=== PATIENT | female | born 1950 | race Caucasian/White ===

== ENCOUNTER 2022-05-21 13:49 | Outpatient (REF) | payer MEDICARE, SELFPAY ==
[2022-05-21 14:34] LABS: Influenza A PCR NEGATIVE (Negative); Influenza B PCR NEGATIVE (Negative); Resp Syncy Virus RNA Qual PCR NEGATIVE (Negative); SARS COV2 PCR INHOUSE NEGATIVE (Negative)
== END 2022-05-21 13:50 | disposition home or self-care (01) ==
LOC: HO.LNP 13:49
PROVIDERS: Visit Provider Physician Assistant
DX: Z20.822 Contact with and (suspected) exposure to COVID-19 (principal); J02.9 Acute pharyngitis, unspecified
CPT/HCPCS: 0241U

== ENCOUNTER 2023-04-15 08:37 | Outpatient (RCR) | payer MEDICARE, OTHER, SELFPAY | END 2023-04-15 23:59 | disposition home or self-care (01) | LOC: HO.PHPA 08:37 | PROVIDERS: Visit Provider Psychiatry & Neurology Psychiatry | DX: F60.3 Borderline personality disorder (principal) ==

== ENCOUNTER 2023-09-08 10:17 | Observation (INO) | payer MEDICARE, OTHER, SELFPAY ==
[2023-09-08] VITALS (15 sets, daily range): BP systolic 85–135; BP diastolic 47–89; PULSE 70–95; RESP 12–20; TEMP 35.5–36.6; O2SAT 93–99; BMI 49.5
--- NOTE | 2023-09-08 | ECG_ITS ---
Test Reason : OVERDOSE Blood Pressure : / mmHG Vent. Rate : 082 BPM Atrial Rate : 000 BPM P-R Int : 000 ms QRS Dur : 092 ms QT Int : 382 ms P-R-T Axes : 000 -14 037 degrees QTc Int : 446 ms Atrial fibrillation Abnormal ECG When compared with ECG of 08-SEP-2023 21:54, No significant change was found Referred By: Cesar Javier Electronically Signed By:JERILYN STEPHENSON MD
--- NOTE | ~2023-09-08 | CT_ITS ---
EXAMINATION: CT HEAD WITHOUT CONTRAST CLINICAL INFORMATION: Status post fall on anticoagulation therapy. COMPARISON: None available. TECHNIQUE: Contiguous axial imaging was performed from the skull base to vertex without intravenous administration of contrast. This CT examination was performed using dose optimization techniques as appropriate, variously including the following: *Automated exposure control *Adjustment of mA and/or kV according to patient size (this includes techniques or standardized protocols for targeted exams where dose is matched to indication/reason for exam; i.e. extremities or head) *Use of iterative reconstruction technique DLP: 813 mGy-cm FINDINGS: There is hypoattenuation in bilateral occipital lobes with loss of dyson-white differentiation. There is no evidence of acute intracranial hemorrhage. No mass effect or midline shift is seen. There is prominence of the extra-axial CSF spaces at the vertex. Diffuse prominence of the ventricles and sulci in keeping with involutional changes. Patchy periventricular and deep white matter hypoattenuation is consistent with moderate small vessel ischemic changes. Hyperostosis frontalis. The mastoid air cells and visualized portions of the paranasal sinuses are well aerated. CT/CT head/brain wo IV con IMPRESSION: There is hypoattenuation in bilateral occipital lobes with loss of dyson-white differentiation. This may represent acute ischemia. Advise correlation with MRI brain.
--- NOTE | ~2023-09-08 | XR_ITS ---
EXAMINATION: XR CHEST CLINICAL INFORMATION: Shortness of breath. COMPARISON: None available. TECHNIQUE: Frontal view of the chest was obtained. FINDINGS: The lungs are relatively hypoexpanded. No focal consolidation. Trace bilateral pleural effusions. Cardiac silhouette is enlarged. XR/XR chest 1V IMPRESSION: Trace bilateral pleural effusions. Enlarged cardiac silhouette.
--- NOTE | ~2023-09-08 | MR_ITS ---
EXAMINATION: MRI BRAIN WITHOUT CONTRAST CLINICAL INFORMATION: Question stroke. COMPARISON: CT head 09/08/2023. TECHNIQUE: Multiplanar MR imaging of the brain was performed without contrast. FINDINGS: There are scattered nonspecific foci of T2 FLAIR signal hyperintensity primarily involving the periventricular white matter. No acute territorial infarct. No pathological magnetic susceptibility artifact. Intracranial vascular flow voids are grossly maintained. There is no intracranial mass effect or midline shift. No abnormal extra-axial collection. Lateral and third ventricles are normal. No hydrocephalus. Midline structures including the cervicomedullary junction are normal. No acute bone marrow signal changes. There is a right mastoid effusion. 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 No active paranasal sinus disease. Globes and orbits are grossly symmetric. MR/MR head/brain wo con IMPRESSION: There are scattered chronic small vessel ischemic changes within the periventricular white matter. Otherwise unremarkable examination. No evidence of acute territorial infarct or hemorrhage.
--- NOTE | 2023-09-08 10:29 | ECG_ITS ---
Test Reason : OVERDOS Blood Pressure : / mmHG Vent. Rate : 106 BPM Atrial Rate : 306 BPM P-R Int : 000 ms QRS Dur : 108 ms QT Int : 332 ms P-R-T Axes : 000 -34 048 degrees QTc Int : 441 ms Atrial flutter with variable A-V block Left axis deviation Inferior infarct , age undetermined Abnormal ECG When compared with ECG of 02-DEC-2004 00:24, Atrial flutter has replaced Ectopic atrial rhythm Non-specific change in ST segment in Lateral leads T wave inversion no longer evident in Inferior leads Referred By: Heydi Neville Electronically Signed By:JERILYN STEPHENSON MD
--- NOTE | 2023-09-08 10:38 | ED_ITS ---
HPI - Overdose General Chief Complaint: Overdose Stated Complaint: SI, OD TRAMADOL/KLONAZAPAM,LETHARGY Time Seen by Provider: 09/08/23 10:26 Source: EMS Mode of arrival: EMS History of Present Illness HPI Narrative: 73-year-old female who arrives via EMS after they were called by family members from [place] for patient report overdosing on her Klonopin and tramadol. As per EMS the bottles had recently been filled and were now empty and there were 35 Klonopin and 70 tramadol. Patient is not provide any history at this time due to lethargy. Related Data Home Medications Medication Instructions Recorded Confirmed amantadine HCl 100 mg capsule 100 mg PO BID 05/21/22 amlodipine 2.5 mg tablet 2.5 mg PO DAILY 05/21/22 apixaban 5 mg tablet (Eliquis) 5 mg PO BID 05/21/22 aripiprazole 5 mg tablet 5 mg PO BEDTIME 05/21/22 atorvastatin 40 mg tablet 40 mg PO DAILY 05/21/22 [facility] Lite Strips) bupropion HCl 300 mg 24 hr tablet, 300 mg PO DAILY 05/21/22 extended release celecoxib 100 mg capsule 100 mg PO BID 05/21/22 clonazepam 0.5 mg tablet 0.5 mg PO DAILY PRN 05/21/22 duloxetine 60 mg capsule,delayed 120 mg PO QAM 05/21/22 release gabapentin 300 mg capsule 300 mg PO DAILY 05/21/22 lamotrigine 150 mg tablet 150 mg PO DAILY 05/21/22 lisinopril 40 mg tablet 40 mg PO DAILY 05/21/22 metoprolol tartrate 25 mg tablet 25 mg PO BID 05/21/22 modafinil 200 mg tablet 200 mg PO QAM 05/21/22 omeprazole 40 mg capsule,delayed 40 mg PO DAILY 05/21/22 release Previous Rx's Medication Instructions Recorded amoxicillin 500 mg tablet 500 mg PO BID 10 days #20 tabs 05/21/22 Allergies Allergy/AdvReac Type Severity Reaction Status Date / Time No Known Allergies Allergy Verified 09/08/23 12:36 Review of Systems 2 Review of Systems: Pertinent positives and negatives as stated in HPI by EMS. PMFSH Past Medical History Source: nursing notes reviewed Social History Social History Unable to assess alcohol history related to: Unable to respond Use of substances other than those prescribed or required for medical reasons: Unable to respond Advance Directives: No Advance Directives Information Provided: No (medical condition) Physical Exam 2 Vital Signs: Vital Signs: Last Vital Signs Temp 97.7 F 09/08/23 15:22 Pulse 74 09/08/23 15:22 Resp 12 09/08/23 15:22 BP 113/77 09/08/23 15:22 Pulse Ox 93 09/08/23 15:22 O2 Del Method Room Air 09/08/23 15:22 O2 Flow Rate 4 09/08/23 11:52 Oxygen Flow Rate 3 09/08/23 10:43 BMI result Body Mass Index 49.5 VITAL SIGNS: Reviewed. GENERAL: Elevated BMI, Well developed, well nourished HEAD: Normocephalic/atraumatic EYES: PERRLA, EOMI, not pinpoint EARS: Ext canals without abnormality NOSE: Nares patent bilateral OROPHARYNX: no oral lesions noted, posterior pharynx clear NECK: Supple, no adenopathy LUNGS: Normal breath sounds. No adventitious sounds or accessory muscle use. SpO2<88> on room air CARDIOVASCULAR: IRR/IRR elevated rate and rhythm without noted murmurs, no JVD or lower extremity edema. ABDOMEN: Soft, non-tender, non-distended with bowel sounds. MUSCULOSKELETAL: No tenderness, deformities, or effusions noted on gross inspection. EXTREMITIES: No cyanosis, clubbing or edema. SKIN: Inspection of the skin reveals no rashes, ulcerations, jaundice, pallor, or petechiae. NEUROLOGIC: GCS-9, lethargic, protecting airway, moving all 4 extremities. Medications Administered Generic Name Dose Route Start Last Admin Trade Name Freq PRN Reason Stop Dose Admin Dextrose/Sodium Chloride 1,000 mls @ 100 mls/hr 09/08/23 12:15 09/08/23 12:17 D5ns IVCONT 100 mls/hr .Q10H RICKY Administration Discontinued Medications Generic Name Dose Route Start Last Admin Trade Name Freq PRN Reason Stop Dose Admin Sodium Chloride 1,000 mls @ 999 mls/hr 09/08/23 11:30 09/08/23 12:29 Ns IV 09/08/23 12:30 Infused .Q1H1M RICKY Infusion Dextrose/Sodium Chloride 1,000 mls @ 125 mls/hr 09/08/23 12:15 09/08/23 12:15 D5ns IVCONT Not Given .Q8H RICKY Naloxone HCl 2 mg 09/08/23 10:30 09/08/23 10:43 Naloxone Hcl 2 Mg/2 Ml Syringe IVPUSH 09/08/23 10:31 2 mg ONCE ONE Administration Medical Decision Making Medical Decision Making [facility] Narrative: 1029: 73-year-old female with history and clinical presentation, DDX: Intentional overdose, suicidal ideation, intracranial hemorrhage felt to be less likely will but will proceed with CT of the head. - INTERVENTION: Application of supplemental oxygen, 2 mg IV push Narcan with no improvement, application of capnography-38. Poison Control: VBG Q4H,POC Q1H, check mental status, EKG Q2H x2 THEN Q4H I reviewed all investigations and hematologic indices are negative for leukocytosis or left shift and there is no anemia or thrombocytopenia. Coagulation studies are within normal limits. VBG does not show respiratory acidosis and no evidence of hypercapnia. Chest x-ray negative for infiltrate and otherwise my interpretation is in agreement with radiology's impression that there are trace bilateral pleural effusions. Chemistry indices are grossly within normal limits without evidence of UMA and there is no electrolyte or liver enzyme derangements. High sensitivity troponin is undetectable and I note that there is an elevated lactic acid level however this is likely secondary to patient's overdose as there is no evidence to suggest an infection, the tachycardia secondary to patient's underlying diagnosis of atrial fibrillation. Urinalysis is negative for UTI or hematuria. Urine toxicology is negative for any findings to suggest presence of benzodiazepines or other illicit substances that we test for, ethyl alcohol is undetectable. 1202: I was reviewing the CT scan after my prelim assessment was negative for intracranial hemorrhage and Radiology has read it as possibly representing acute ischemia with hypoattenuation in bilateral occipital lobes and loss of dyson- white differentiation and advises correlation with MRI brain. There was no phone call communicating these findings. 1205: Patient's last point of care glucose is 75, will switch IV fluids from normal saline to D5 normal saline. 1210: Will send patient over for MRI, however, at bedside patient was noted to be arousable and I did a brief visual exam and patient does not present with any visual defect and is moving all 4 extremities on command. She is still quite sleepy. 1704: Trending of all VBGs/POC glucose and EKGs remain stable. Pt remains drowsy. MRI is pending to further evaluate radiology concerns for ischemia despite focal deficits, BUT patient is a difficult evaluation given overdose status. MRI negative for any evidence acute ischemic events. Signed out to DR Velarde: - Poison Control - ?admission Differential Diagnosis Differential Diagnoses: The differential diagnosis associated with the presentation includes Please see the discussion above Admission/Observation Consideration of admission/observation: Escalation of care including admission/observation considered Please see the discussion above Lab Data MDM Lab Attestation statement: I reviewed the patient's lab results. Please see the discussion above 09/08/23 10:35 09/08/23 10:35 Labs: Lab Results 09/08/23 09/08/23 09/08/23 Range/Units 10:25 10:35 10:53 WBC 6.9 (4.8-10.8) X10*3/uL RBC 4.35 (4.20-5.50) X10*6/uL Hgb 13.0 (12.0-16.0) g/dl Hct 40.3 (37.0-47.0) % MCV 92.6 (80.0-98.0) fL MCH 29.9 (27.0-33.0) pg MCHC 32.3 (31.0-35.0) g/dl RDW 16.8 H (11.0-16.0) % Plt Count 306 (160-400) X10*3/uL MPV 9.6 (9.4-12.3) fL Immature Gran % (Auto) 0.4 (0.0-0.4) % Neut % (Auto) 57.6 (45-73) % Lymph % (Auto) 34.0 (20-40) % Price % (Auto) 5.0 (2-11) % Eos % (Auto) 2.3 (0-4) % Baso % (Auto) 0.7 (0-2) % Lymph # (Auto) 2.3 (1.2-4.9) X10*3/uL Price # (Auto) 0.3 (0.1-1.2) X10*3/uL Eos # (Auto) 0.2 (0.0-0.4) X10*3/uL Baso # (Auto) 0.1 (0.0-0.2) X10*3/uL Abs Immat Gran (auto) 0.03 (0.00-0.03) X10*3/uL Absolute Neuts (auto) 3.9 (2.0-8.3) x10*3/uL Absolute Nucleated RBC 0.000 (0.0-0.012) X10*3/uL Nucleated RBC % (auto) 0.0 (0.0-0.2) /100WBC Hold Purple Top PT 13.1 (11.1-13.3) SEC INR 1.1 (0.9-1.1) APTT 33.0 (26.0-36.4) SEC VBG pH 7.47 H (7.32-7.43) VBG pCO2 33 mmHg VBG pO2 196 mmHg VBG HCO3 24 (22-26) mmol/L VBG O2 Saturation 100.0 % VBG Base Excess 1.7 mmol/L Sodium 144 (135-145) mmol/L Potassium 3.9 (3.3-5.1) mmol/L Chloride 109 H (96-108) mmol/L Carbon Dioxide 23 (22-29) mmol/L Anion Gap 16 (12-20) BUN 9 (9-16) mg/dL Creatinine 0.84 (0.5-1.4) mg/dL Estim Creat Clear Calc 84.2 Estimated GFR > 60 POC Glucose 112 (60-115) mg/dL Random Glucose 118 H (60-115) mg/dL Lactic Acid 2.1 H* (0.5-2.0) mmol/L Lactic Acid F/U @ 2Hr (0.5-2.0) mmol/L Calcium 10.0 (8.4-10.2) mg/dL Magnesium 1.8 (1.6-2.6) mg/dL Total Bilirubin 0.4 (0.0-1.0) mg/dL AST 15 (5-31) U/L ALT 12 (0-31) U/L Alkaline Phosphatase 62 (39-117) U/L Total Creatine Kinase 34 (26-140) U/L Troponin I High Sens < 2.7 (<3.5-17.0) ng/L B-Natriuretic Peptide 129 H (<100) pg/mL Total Protein 7.2 (6.5-8.0) g/dL Albumin 4.0 (3.5-5.0) g/dL Urine Color Urine Appearance Urine pH (5.0-9.0) Ur Specific Wyatt (1.005-1.025) Urine Protein (Neg-Trace) mg/dL Urine Glucose (UA) (Negative) mg/dL Urine Ketones (Negative) mg/dL Urine Blood (Negative) Urine Nitrite (Negative) Ur Leukocyte Esterase (Negative) Urine Opiates Screen (Not Detect) Urine Fentanyl Screen (Not Detect) Ur Barbiturates Screen (Not Detect) Ur Phencyclidine Scrn (Not Detect) Ur Amphetamines Screen (Not Detect) U Benzodiazepines Scrn (Not Detect) Urine Cocaine Screen (Not Detect) U Marijuana (THC) Screen (Not Detect) Ethyl Alcohol < 10 mg/dL 09/08/23 09/08/23 09/08/23 Range/Units 11:16 11:49 12:28 WBC (4.8-10.8) X10*3/uL RBC (4.20-5.50) X10*6/uL Hgb (12.0-16.0) g/dl Hct (37.0-47.0) % MCV (80.0-98.0) fL MCH (27.0-33.0) pg MCHC (31.0-35.0) g/dl RDW (11.0-16.0) % Plt Count (160-400) X10*3/uL MPV (9.4-12.3) fL Immature Gran % (Auto) (0.0-0.4) % Neut % (Auto) (45-73) % Lymph % (Auto) (20-40) % Price % (Auto) (2-11) % Eos % (Auto) (0-4) % Baso % (Auto) (0-2) % Lymph # (Auto) (1.2-4.9) X10*3/uL Price # (Auto) (0.1-1.2) X10*3/uL Eos # (Auto) (0.0-0.4) X10*3/uL Baso # (Auto) (0.0-0.2) X10*3/uL Abs Immat Gran (auto) (0.00-0.03) X10*3/uL Absolute Neuts (auto) (2.0-8.3) x10*3/uL Absolute Nucleated RBC (0.0-0.012) X10*3/uL Nucleated RBC % (auto) (0.0-0.2) /100WBC Hold Purple Top PT (11.1-13.3) SEC INR (0.9-1.1) APTT (26.0-36.4) SEC VBG pH (7.32-7.43) VBG pCO2 mmHg VBG pO2 mmHg VBG HCO3 (22-26) mmol/L VBG O2 Saturation % VBG Base Excess mmol/L Sodium (135-145) mmol/L Potassium (3.3-5.1) mmol/L Chloride (96-108) mmol/L Carbon Dioxide (22-29) mmol/L Anion Gap (12-20) BUN (9-16) mg/dL Creatinine (0.5-1.4) mg/dL Estim Creat Clear Calc Estimated GFR POC Glucose 76 72 (60-115) mg/dL Random Glucose (60-115) mg/dL Lactic Acid (0.5-2.0) mmol/L Lactic Acid F/U @ 2Hr (0.5-2.0) mmol/L Calcium (8.4-10.2) mg/dL Magnesium (1.6-2.6) mg/dL Total Bilirubin (0.0-1.0) mg/dL AST (5-31) U/L ALT (0-31) U/L Alkaline Phosphatase (39-117) U/L Total Creatine Kinase (26-140) U/L Troponin I High Sens (<3.5-17.0) ng/L B-Natriuretic Peptide (<100) pg/mL Total Protein (6.5-8.0) g/dL Albumin (3.5-5.0) g/dL Urine Color Yellow Urine Appearance Clear Urine pH 6.0 (5.0-9.0) Ur Specific Wyatt 1.020 (1.005-1.025) Urine Protein Trace (Neg-Trace) mg/dL Urine Glucose (UA) Negative (Negative) mg/dL Urine Ketones Negative (Negative) mg/dL Urine Blood Negative (Negative) Urine Nitrite Negative (Negative) Ur Leukocyte Esterase Negative (Negative) Urine Opiates Screen Not Detected (Not Detect) Urine Fentanyl Screen Not Detected (Not Detect) Ur Barbiturates Screen Not Detected (Not Detect) Ur Phencyclidine Scrn Not Detected (Not Detect) Ur Amphetamines Screen Not Detected (Not Detect) U Benzodiazepines Scrn Not Detected (Not Detect) Urine Cocaine Screen Not Detected (Not Detect) U Marijuana (THC) Screen Not Detected (Not Detect) Ethyl Alcohol mg/dL 09/08/23 09/08/23 09/08/23 Range/Units 13:01 13:10 15:12 WBC (4.8-10.8) X10*3/uL RBC (4.20-5.50) X10*6/uL Hgb (12.0-16.0) g/dl Hct (37.0-47.0) % MCV (80.0-98.0) fL MCH (27.0-33.0) pg MCHC (31.0-35.0) g/dl RDW (11.0-16.0) % Plt Count (160-400) X10*3/uL MPV (9.4-12.3) fL Immature Gran % (Auto) (0.0-0.4) % Neut % (Auto) (45-73) % Lymph % (Auto) (20-40) % Price % (Auto) (2-11) % Eos % (Auto) (0-4) % Baso % (Auto) (0-2) % Lymph # (Auto) (1.2-4.9) X10*3/uL Price # (Auto) (0.1-1.2) X10*3/uL Eos # (Auto) (0.0-0.4) X10*3/uL Baso # (Auto) (0.0-0.2) X10*3/uL Abs Immat Gran (auto) (0.00-0.03) X10*3/uL Absolute Neuts (auto) (2.0-8.3) x10*3/uL Absolute Nucleated RBC (0.0-0.012) X10*3/uL Nucleated RBC % (auto) (0.0-0.2) /100WBC Hold Purple Top SEE NOTE PT (11.1-13.3) SEC INR (0.9-1.1) APTT (26.0-36.4) SEC VBG pH (7.32-7.43) VBG pCO2 mmHg VBG pO2 mmHg VBG HCO3 (22-26) mmol/L VBG O2 Saturation % VBG Base Excess mmol/L Sodium (135-145) mmol/L Potassium (3.3-5.1) mmol/L Chloride (96-108) mmol/L Carbon Dioxide (22-29) mmol/L Anion Gap (12-20) BUN (9-16) mg/dL Creatinine (0.5-1.4) mg/dL Estim Creat Clear Calc Estimated GFR POC Glucose 82 98 (60-115) mg/dL Random Glucose (60-115) mg/dL Lactic Acid (0.5-2.0) mmol/L Lactic Acid F/U @ 2Hr 1.8 (0.5-2.0) mmol/L Calcium (8.4-10.2) mg/dL Magnesium (1.6-2.6) mg/dL Total Bilirubin (0.0-1.0) mg/dL AST (5-31) U/L ALT (0-31) U/L Alkaline Phosphatase (39-117) U/L Total Creatine Kinase (26-140) U/L Troponin I High Sens (<3.5-17.0) ng/L B-Natriuretic Peptide (<100) pg/mL Total Protein (6.5-8.0) g/dL Albumin (3.5-5.0) g/dL Urine Color Urine Appearance Urine pH (5.0-9.0) Ur Specific Wyatt (1.005-1.025) Urine Protein (Neg-Trace) mg/dL Urine Glucose (UA) (Negative) mg/dL Urine Ketones (Negative) mg/dL Urine Blood (Negative) Urine Nitrite (Negative) Ur Leukocyte Esterase (Negative) Urine Opiates Screen (Not Detect) Urine Fentanyl Screen (Not Detect) Ur Barbiturates Screen (Not Detect) Ur Phencyclidine Scrn (Not Detect) Ur Amphetamines Screen (Not Detect) U Benzodiazepines Scrn (Not Detect) Urine Cocaine Screen (Not Detect) U Marijuana (THC) Screen (Not Detect) Ethyl Alcohol mg/dL 09/08/23 Range/Units 15:22 WBC (4.8-10.8) X10*3/uL RBC (4.20-5.50) X10*6/uL Hgb (12.0-16.0) g/dl Hct (37.0-47.0) % MCV (80.0-98.0) fL MCH (27.0-33.0) pg MCHC (31.0-35.0) g/dl RDW (11.0-16.0) % Plt Count (160-400) X10*3/uL MPV (9.4-12.3) fL Immature Gran % (Auto) (0.0-0.4) % Neut % (Auto) (45-73) % Lymph % (Auto) (20-40) % Price % (Auto) (2-11) % Eos % (Auto) (0-4) % Baso % (Auto) (0-2) % Lymph # (Auto) (1.2-4.9) X10*3/uL Price # (Auto) (0.1-1.2) X10*3/uL Eos # (Auto) (0.0-0.4) X10*3/uL Baso # (Auto) (0.0-0.2) X10*3/uL Abs Immat Gran (auto) (0.00-0.03) X10*3/uL Absolute Neuts (auto) (2.0-8.3) x10*3/uL Absolute Nucleated RBC (0.0-0.012) X10*3/uL Nucleated RBC % (auto) (0.0-0.2) /100WBC Hold Purple Top PT (11.1-13.3) SEC INR (0.9-1.1) APTT (26.0-36.4) SEC VBG pH 7.40 (7.32-7.43) VBG pCO2 42 mmHg VBG pO2 82 mmHg VBG HCO3 26 (22-26) mmol/L VBG O2 Saturation 97.0 % VBG Base Excess 1.3 mmol/L Sodium (135-145) mmol/L Potassium (3.3-5.1) mmol/L Chloride (96-108) mmol/L Carbon Dioxide (22-29) mmol/L Anion Gap (12-20) BUN (9-16) mg/dL Creatinine (0.5-1.4) mg/dL Estim Creat Clear Calc Estimated GFR POC Glucose (60-115) mg/dL Random Glucose (60-115) mg/dL Lactic Acid (0.5-2.0) mmol/L Lactic Acid F/U @ 2Hr (0.5-2.0) mmol/L Calcium (8.4-10.2) mg/dL Magnesium (1.6-2.6) mg/dL Total Bilirubin (0.0-1.0) mg/dL AST (5-31) U/L ALT (0-31) U/L Alkaline Phosphatase (39-117) U/L Total Creatine Kinase (26-140) U/L Troponin I High Sens (<3.5-17.0) ng/L B-Natriuretic Peptide (<100) pg/mL Total Protein (6.5-8.0) g/dL Albumin (3.5-5.0) g/dL Urine Color Urine Appearance Urine pH (5.0-9.0) Ur Specific Wyatt (1.005-1.025) Urine Protein (Neg-Trace) mg/dL Urine Glucose (UA) (Negative) mg/dL Urine Ketones (Negative) mg/dL Urine Blood (Negative) Urine Nitrite (Negative) Ur Leukocyte Esterase (Negative) Urine Opiates Screen (Not Detect) Urine Fentanyl Screen (Not Detect) Ur Barbiturates Screen (Not Detect) Ur Phencyclidine Scrn (Not Detect) Ur Amphetamines Screen (Not Detect) U Benzodiazepines Scrn (Not Detect) Urine Cocaine Screen (Not Detect) U Marijuana (THC) Screen (Not Detect) Ethyl Alcohol mg/dL Independent Interpretation I performed an independent interpretation of an: EKG Interpretation: Atrial flutter with RVR, HR-106, QRS-108, QT-332, QTC -441 1309: atrial fibrillation, HR- 81, no STEMI, QRS-96, QT - 410, QTC -476 Radiology Impression Discussion of test interpretation with radiology: I have reviewed the radiologist's reading. Radiologist Impression: please see the discussion above Critical Care Time Critical Care Time Critical Care Time: Yes Total Critical Care Time: 120 Attestation: I personally attest to this time spent taking care of the patient. Discharge Plan Discharge Clinical Impression: Drug overdose, Suicide attempt, Chronic anticoagulation Patient Disposition: Still a Patient Prescriptions: No Action lisinopril 40 mg tablet 40 mg PO DAILY atorvastatin 40 mg tablet 40 mg PO DAILY clonazepam 0.5 mg tablet 0.5 mg PO DAILY PRN (DME) FreeStyle Lite Strips Strip See Rx Instructions .ROUTE DAILY Qty: 10 Rx Instructions: As directed lamotrigine 150 mg tablet 150 mg PO DAILY omeprazole 40 mg capsule,delayed release(DR/EC) 40 mg PO DAILY celecoxib 100 mg capsule 100 mg PO BID amantadine HCl 100 mg capsule 100 mg PO BID Eliquis 5 mg tablet 5 mg PO BID metoprolol tartrate 25 mg tablet 25 mg PO BID aripiprazole 5 mg tablet 5 mg PO BEDTIME modafinil 200 mg tablet 200 mg PO QAM bupropion HCl 300 mg tablet extended release 24 hr 300 mg PO DAILY duloxetine 60 mg capsule,delayed release(DR/EC) 120 mg PO QAM amlodipine 2.5 mg tablet 2.5 mg PO DAILY gabapentin 300 mg capsule 300 mg PO DAILY amoxicillin 500 mg tablet 500 mg PO BID 10 Days Qty: 20 0RF
[2023-09-08 10:41] LABS: MANUAL DIFF FLAG NO
[2023-09-08 10:43] LABS: Basophils Absolute Auto 0.1 X10*3/uL (0.0-0.2); Basophils Percent Auto 0.7 % (0-2); Eosinophils Absolute Auto 0.2 X10*3/uL (0.0-0.4); Eosinophils Percent Auto 2.3 % (0-4); Hematocrit 40.3 % (37.0-47.0); Imm Gran Abs Auto 0.03 X10*3/uL (0.00-0.03); Imm Gran Pct Auto 0.4 % (0.0-0.4); Lymphocytes Absolute Auto 2.3 X10*3/uL (1.2-4.9); Mean Corpuscular HGB Conc 32.3 g/dl (31.0-35.0); Mean Corpuscular Hemoglobin 29.9 pg (27.0-33.0); Mean Corpuscular Volume 92.6 fL (80.0-98.0); Mean Platelet Volume 9.6 fL (9.4-12.3); Monocytes Absolute Auto 0.3 X10*3/uL (0.1-1.2); Neutrophils Absolute Auto 3.9 x10*3/uL (2.0-8.3); Neutrophils Percent Auto 57.6 % (45-73); Platelet Count 306 X10*3/uL (160-400); Red Blood Count 4.35 X10*6/uL (4.20-5.50); Red Cell Distribution Width 16.8 % (11.0-16.0); White Blood Count 6.9 X10*3/uL (4.8-10.8)
[2023-09-08] MEDS: Naloxone HCl 2 MG/2 ML SYRINGE IVPUSH (10:43)
[2023-09-08 10:47] LABS: INTERNATIONAL NORM RATIO 1.1 (0.9-1.1); Prothrombin Time 13.1 SEC (11.1-13.3)
[2023-09-08 10:53] LABS: Glucose, Whole Blood 112 mg/dL (60-115)
[2023-09-08 10:59] LABS: VBG Base Excess 1.7 mmol/L; VBG HCO3 24 mmol/L (22-26); VBG pCO2 33 mmHg; VBG pH 7.47 (7.32-7.43); VBG pO2 196 mmHg
[2023-09-08 11:00] LABS: Venous Blood Gas Refer to POC result
[2023-09-08 11:16] LABS: Troponin-I High Sensitivity < 2.7 ng/L (<3.5-17.0)
[2023-09-08 11:17] LABS: Alanine Aminotransferase 12 U/L (0-31); Alkaline Phosphatase 62 U/L (39-117); Anion Gap 16 (12-20); Aspartate Amino Transferase 15 U/L (5-31); Bilirubin Total 0.4 mg/dL (0.0-1.0); Blood Urea Nitrogen 9 mg/dL (9-16); Carbon Dioxide 23 mmol/L (22-29); Chloride 109 mmol/L (96-108); Creatinine Clr Calc Pharmacy 84.2; Estimated Glomerular Filt Rate > 60; Ethanol < 10 mg/dL; Glucose Random 118 mg/dL (60-115); Magnesium 1.8 mg/dL (1.6-2.6); Potassium 3.9 mmol/L (3.3-5.1); Sodium 144 mmol/L (135-145); Total Protein 7.2 g/dL (6.5-8.0)
[2023-09-08 11:21] LABS: Lactic Acid 2.1 mmol/L (0.5-2.0)
[2023-09-08 11:29] LABS: Appearance Urine Clear; Color Urine Yellow; Glucose Urine UA Negative (Negative); Leukocyte Esterase Urine Negative (Negative); Nitrite Urine Negative (Negative); Urine Blood Negative (Negative); Urine Ketones Negative (Negative); Urine Protein Trace mg/dL (Neg-Trace)
[2023-09-08] MEDS: 0.9 % Sodium Chloride 1,000 ML 999 ML IV (11:30)
[2023-09-08 11:34] LABS: Amphetamine Screen Urine Not Detected (Not Detect); Barbiturates, Urine Not Detected (Not Detect); Benzodiazepines Screen Urine Not Detected (Not Detect); Cannabinoid Screen Urine Not Detected (Not Detect); Cocaine Screen Urine Not Detected (Not Detect); Fentanyl, urine Not Detected (Not Detect); Opiate Screen Urine Not Detected (Not Detect); Phencyclidine Screen Urine Not Detected (Not Detect)
--- NOTE | 2023-09-08 12:10 | PC.NURSE ---
this RN assumed care of patient at 1130. Pt is laying on stretcher, responding only to sternal rub. Did not respond to painful stimuli such as finger stick for POC. Pt does occasionally open eyes to look around. Pt speech is unclear. Pt has normal saline running wide open at this time. Two IVs present 20 in the RAC and a 20 in the LFA. No longer requiring oxygen to maintain a good SPO2. Pt has katz catheter that is draining straw yellow urine at this time. VSS, blood pressure is on low side at 90s/50s. Continues plan of care for Q1H POCs, maintain intake and output
[2023-09-08] MEDS: Dextrose 5 % and 0.9 % NaCl 1,000 ML 100 ML IVCONT ×2 (12:17→22:28)
[2023-09-08 12:38] LABS: Reflex Lactate? Lactic Acid Added
--- NOTE | 2023-09-08 12:58 | ECG_ITS ---
Test Reason : OVERDOSE Blood Pressure : / mmHG Vent. Rate : 081 BPM Atrial Rate : 000 BPM P-R Int : 000 ms QRS Dur : 096 ms QT Int : 410 ms P-R-T Axes : 000 -06 038 degrees QTc Int : 476 ms Atrial fibrillation Abnormal ECG When compared with ECG of 08-SEP-2023 10:24, Atrial fibrillation has replaced Atrial flutter Criteria for Inferior infarct are no longer Present Referred By: Heydi Neville Electronically Signed By:JERILYN STEPHENSON MD
[2023-09-08 13:18] LABS: Glucose, Whole Blood 76 mg/dL (60-115)
[2023-09-08 13:18] LABS: Glucose, Whole Blood 82 mg/dL (60-115)
[2023-09-08 13:18] LABS: Glucose, Whole Blood 72 mg/dL (60-115)
[2023-09-08 13:31] LABS: ~Lactic Acid-LAB USE ONLY 1.8 mmol/L (0.5-2.0)
--- NOTE | 2023-09-08 14:58 | ECG_ITS ---
Test Reason : OVERDOSE Blood Pressure : / mmHG Vent. Rate : 071 BPM Atrial Rate : 000 BPM P-R Int : 000 ms QRS Dur : 098 ms QT Int : 392 ms P-R-T Axes : 000 -20 026 degrees QTc Int : 425 ms Atrial fibrillation Minimal voltage criteria for LVH, may be normal variant ( Juan Luis product ) Abnormal ECG When compared with ECG of 08-SEP-2023 13:25, QT has shortened Referred By: Generic ED Physician Electronically Signed By:JERILYN STEPHENSON MD
[2023-09-08 15:13] LABS: B Type Natriuretic Peptide 129 pg/mL (<100)
[2023-09-08 15:19] LABS: Glucose, Whole Blood 98 mg/dL (60-115)
[2023-09-08 15:27] LABS: VBG Base Excess 1.3 mmol/L; VBG HCO3 26 mmol/L (22-26); VBG pCO2 42 mmHg; VBG pO2 82 mmHg
[2023-09-08 15:29] LABS: Venous Blood Gas Refer to POC result
--- NOTE | 2023-09-08 16:43 | PC.NURSE ---
this RN transported patient to MRI, pt tolerated well with no issues. Pt is now back to ED, resting comfortably, offers no complaints, is getting progressively better with responses, is able to answer yes no questions
[2023-09-08 17:10] LABS: Glucose, Whole Blood 82 mg/dL (60-115)
--- NOTE | 2023-09-08 17:22 | PHA.MEDREC ---
Pharmacy Consult ? Medication Reconciliation Pharmacy has completed the medication reconciliation. Patient unable to answer. Med rec completed by claim history. Unable to confirm gabapentin. Patient fills gabapentin 300 mg 1 cap in the AM and 2 cap at night on 04/06/23 however per PMH patient taking 1 cap at bedtime. If patient taking as prescription states, patient would have run out the prescription but if they are taking as the PMH patient could still be taking therefore left in list unconfirmed. Talita Cunningham, PharmD
[2023-09-08 18:13] LABS: Glucose, Whole Blood 80 mg/dL (60-115)
[2023-09-08 19:32] LABS: Glucose, Whole Blood 58 mg/dL (60-115)
[2023-09-08] MEDS: Dextrose 50 % 25 GM/50 ML SYRINGE IVPUSH (20:12)
[2023-09-08 20:14] LABS: Glucose, Whole Blood 141 mg/dL (60-115)
--- NOTE | 2023-09-08 21:45 | PC.NURSE ---
This Rn spoke with Poison control- recommended morning labs and repeat EKG, and noted that as long as PT remained symptomatic at 1030 am, PT can be cleared for psych. Notified
[2023-09-09] VITALS (7 sets, daily range): BP systolic 121–155; BP diastolic 71–88; PULSE 79–94; RESP 16–22; TEMP 36.1–36.6; O2SAT 91–98; BMI 49.6
--- NOTE | 2023-09-09 00:40 | P.HPHOSP_ITS ---
History of Present Illness Date of Service: 09/09/23 Chief Complaint: AMS, overdose, suicidal attempt 73 years old lady with PMH of DMII, hx DVT on Eliquis, HTN, depression among other behavioural issues who presents to the hospital w AMS after overdose with Klonipin and tramadol. According to EMS she filled her meds recently. on records that was on 08/29. Also she is not on Tramadol so not sure if that was right as the patient was not able to provide much of history as she was lethargic at time of presentation. reported that she had some problems with her family and took all the tablets in suicidal attempt as family called EMS. i could not reach out to family this time. She was monitored in ED with improvement in mental status with IV fluids, POC and neurochecks . Images of CT and MRI brain were negative for any acute findings. blood work within normal with one episode of hypoglycemia reported. Urine Tox negative for Benzos which goes against the original story .. Admitted for observation. Review of Systems 2 Review of Systems: Yes Unobtainable due to mental status [facility] Medical History Diabetes mellitus Chronic anticoagulation Social History Unable to assess alcohol history related to: Unable to respond Use of substances other than those prescribed or required for medical reasons: Unable to respond Advance Directives: No Advance Directives Information Provided: No (medical condition) Meds Allergies Allergy/AdvReac Type Severity Reaction Status Date / Time No Known Allergies Allergy Verified 09/08/23 12:36 Active Medications: Current Medications Acetaminophen (Acetaminophen 325 Mg Tablet) 650 mg PO Q6H PRN PRN Reason: Pain, Mild (Pain Scale 1-3) Amlodipine Besylate (Amlodipine Besylate 2.5 Mg Tablet) 2.5 mg PO DAILY [facility]; Protocol Apixaban (Apixaban 5 Mg Tablet) 5 mg PO BID [facility] Atorvastatin Calcium (Atorvastatin Calcium 40 Mg Tablet) 40 mg PO DAILY [facility] Bupropion HCl (Bupropion Hcl Xl 300 Mg Tab.Er.24h) 300 mg PO DAILY [facility] Duloxetine HCl (Duloxetine Hcl 60 Mg Capsule.Dr) 120 mg PO QAM [facility] Dextrose/Sodium Chloride (D5ns) 1,000 mls @ 100 mls/hr IVCONT .Q10H [facility] Last Admin: 09/08/23 22:28 Dose: 100 mls/hr Lamotrigine (Lamotrigine 25 Mg Tablet) 75 mg PO DAILY [facility] Lisinopril (Lisinopril 40 Mg Tablet) 40 mg PO DAILY [facility]; Protocol Metformin HCl (Metformin Hcl 500 Mg Tablet) 500 mg PO BID [facility] Metoprolol Tartrate (Metoprolol Tartrate 25 Mg Tablet) 25 mg PO BID [facility]; Protocol Omeprazole (Omeprazole 40 Mg Capsule.Dr) 40 mg PO DAILY [facility] Ondansetron HCl (Ondansetron Hcl 4 Mg/2 Ml Vial) 4 mg IVPUSH Q8H PRN PRN Reason: Nausea and Vomiting Sodium Chloride (0.9 % Sodium Chloride Flush 3 Ml Syringe) 3 ml IVFLUSH QSHIFT [facility] Topiramate (Topiramate 25 Mg Tablet) 75 mg PO BID [facility] Home Medications Medication Instructions Recorded Confirmed Last Taken Type amlodipine 2.5 mg tablet 2.5 mg PO DAILY 05/21/22 09/08/23 Unknown History apixaban 5 mg tablet (Eliquis) 5 mg PO BID 05/21/22 09/08/23 Unknown History atorvastatin 40 mg tablet 40 mg PO DAILY 05/21/22 09/08/23 Unknown History blood sugar diagnostic (Rosalvayle #10 ea 05/21/22 Unknown History Lite Strips) bupropion HCl 300 mg 24 hr tablet, 300 mg PO DAILY 05/21/22 09/08/23 Unknown History extended release clonazepam 0.5 mg tablet 0.5 mg PO DAILY PRN Anxiety 05/21/22 09/08/23 Unknown History duloxetine 60 mg capsule,delayed 120 mg PO QAM 05/21/22 09/08/23 Unknown History release gabapentin 300 mg capsule 300 mg PO DAILY 05/21/22 Unknown History lamotrigine 150 mg tablet 150 mg PO DAILY 05/21/22 09/08/23 Unknown History lisinopril 40 mg tablet 40 mg PO DAILY 05/21/22 09/08/23 Unknown History metoprolol tartrate 25 mg tablet 25 mg PO BID 05/21/22 09/08/23 Unknown History omeprazole 40 mg capsule,delayed 40 mg PO DAILY 05/21/22 09/08/23 Unknown History release clonazepam 0.5 mg tablet 0.5 mg PO BEDTIME 09/08/23 09/08/23 Unknown History metformin 500 mg tablet 500 mg PO BID 09/08/23 09/08/23 Unknown History topiramate 100 mg tablet 150 mg PO BID 09/08/23 09/08/23 Unknown History Physical Exam 2 Vital Signs and Narrative: Vital Signs: Last Vital Signs Temp 97.9 F 09/08/23 19:26 Pulse 78 09/08/23 23:24 Resp 16 09/08/23 23:24 BP 135/89 09/08/23 23:24 Pulse Ox 94 09/08/23 23:24 O2 Del Method Room Air, Nasal C annula 09/08/23 23:24 O2 Flow Rate 2 09/08/23 23:24 Oxygen Flow Rate 3 09/08/23 10:43 BMI result Body Mass Index 49.5 Const: Other: alert with stimulation, morbedly obese, not in distress Neck : Normal inspection, Supple Cardiovascular : RRR, no JVP, no lower extremity edema Respiratory : good bilateral air entry, no crackles, wheezes or rhonchi Gastrointestinal: soft, lax, Normal bowel sounds, Non tender Skin : Warm, Dry Neurological : Altered, response to verbal stimuli with low voice and short sentences, makes eye contact but goes back to sleep , moving all extremities Results Labs 09/08/23 10:35 09/08/23 10:35 Labs: Laboratory Results - last 24 hr 09/08/23 09/08/23 09/08/23 10:25 10:35 10:53 MCV 92.6 MCH 29.9 MCHC 32.3 RDW 16.8 H Plt Count 306 MPV 9.6 Immature Gran % (Auto) 0.4 Neut % (Auto) 57.6 Lymph % (Auto) 34.0 Morris % (Auto) 5.0 Eos % (Auto) 2.3 Baso % (Auto) 0.7 Lymph # (Auto) 2.3 Morris # (Auto) 0.3 Eos # (Auto) 0.2 Baso # (Auto) 0.1 Abs Immat Gran (auto) 0.03 Absolute Neuts (auto) 3.9 Absolute Nucleated RBC 0.000 Nucleated RBC % (auto) 0.0 Hold Purple Top PT 13.1 INR 1.1 APTT 33.0 VBG pH 7.47 H VBG pCO2 33 VBG pO2 196 VBG HCO3 24 VBG O2 Saturation 100.0 VBG Base Excess 1.7 Anion Gap 16 Estim Creat Clear Calc 84.2 Estimated GFR > 60 POC Glucose 112 Random Glucose 118 H Lactic Acid 2.1 H* Lactic Acid F/U @ 2Hr Calcium 10.0 Magnesium 1.8 Total Bilirubin 0.4 AST 15 ALT 12 Alkaline Phosphatase 62 Total Creatine Kinase 34 B-Natriuretic Peptide 129 H Total Protein 7.2 Albumin 4.0 Urine Color Urine Appearance Urine pH Ur Specific [place] Urine Protein Urine Glucose (UA) Urine Ketones Urine Blood Urine Nitrite Ur Leukocyte Esterase Urine Opiates Screen Urine Fentanyl Screen Ur Barbiturates Screen Ur Phencyclidine Scrn Ur Amphetamines Screen U Benzodiazepines Scrn Urine Cocaine Screen U Marijuana (THC) Screen Ethyl Alcohol < 10 09/08/23 09/08/23 09/08/23 11:16 11:49 12:28 MCV MCH MCHC RDW Plt Count MPV Immature Gran % (Auto) Neut % (Auto) Lymph % (Auto) Morris % (Auto) Eos % (Auto) Baso % (Auto) Lymph # (Auto) Morris # (Auto) Eos # (Auto) Baso # (Auto) Abs Immat Gran (auto) Absolute Neuts (auto) Absolute Nucleated RBC Nucleated RBC % (auto) Hold Purple Top PT INR APTT VBG pH VBG pCO2 VBG pO2 VBG HCO3 VBG O2 Saturation VBG Base Excess Anion Gap Estim Creat Clear Calc Estimated GFR POC Glucose 76 72 Random Glucose Lactic Acid Lactic Acid F/U @ 2Hr Calcium Magnesium Total Bilirubin AST ALT Alkaline Phosphatase Total Creatine Kinase B-Natriuretic Peptide Total Protein Albumin Urine Color Yellow Urine Appearance Clear Urine pH 6.0 Ur Specific [place] 1.020 Urine Protein Trace Urine Glucose (UA) Negative Urine Ketones Negative Urine Blood Negative Urine Nitrite Negative Ur Leukocyte Esterase Negative Urine Opiates Screen Not Detected Urine Fentanyl Screen Not Detected Ur Barbiturates Screen Not Detected Ur Phencyclidine Scrn Not Detected Ur Amphetamines Screen Not Detected U Benzodiazepines Scrn Not Detected Urine Cocaine Screen Not Detected U Marijuana (THC) Screen Not Detected Ethyl Alcohol 09/08/23 09/08/23 09/08/23 13:01 13:10 15:12 MCV MCH MCHC RDW Plt Count MPV Immature Gran % (Auto) Neut % (Auto) Lymph % (Auto) Morris % (Auto) Eos % (Auto) Baso % (Auto) Lymph # (Auto) Morris # (Auto) Eos # (Auto) Baso # (Auto) Abs Immat Gran (auto) Absolute Neuts (auto) Absolute Nucleated RBC Nucleated RBC % (auto) Hold Purple Top SEE NOTE PT INR APTT VBG pH VBG pCO2 VBG pO2 VBG HCO3 VBG O2 Saturation VBG Base Excess Anion Gap Estim Creat Clear Calc Estimated GFR POC Glucose 82 98 Random Glucose Lactic Acid Lactic Acid F/U @ 2Hr 1.8 Calcium Magnesium Total Bilirubin AST ALT Alkaline Phosphatase Total Creatine Kinase B-Natriuretic Peptide Total Protein Albumin Urine Color Urine Appearance Urine pH Ur Specific [place] Urine Protein Urine Glucose (UA) Urine Ketones Urine Blood Urine Nitrite Ur Leukocyte Esterase Urine Opiates Screen Urine Fentanyl Screen Ur Barbiturates Screen Ur Phencyclidine Scrn Ur Amphetamines Screen U Benzodiazepines Scrn Urine Cocaine Screen U Marijuana (THC) Screen Ethyl Alcohol 09/08/23 09/08/23 09/08/23 15:22 16:47 18:06 MCV MCH MCHC RDW Plt Count MPV Immature Gran % (Auto) Neut % (Auto) Lymph % (Auto) Morris % (Auto) Eos % (Auto) Baso % (Auto) Lymph # (Auto) Morris # (Auto) Eos # (Auto) Baso # (Auto) Abs Immat Gran (auto) Absolute Neuts (auto) Absolute Nucleated RBC Nucleated RBC % (auto) Hold Purple Top PT INR APTT VBG pH 7.40 VBG pCO2 42 VBG pO2 82 VBG HCO3 26 VBG O2 Saturation 97.0 VBG Base Excess 1.3 Anion Gap Estim Creat Clear Calc Estimated GFR POC Glucose 82 80 Random Glucose Lactic Acid Lactic Acid F/U @ 2Hr Calcium Magnesium Total Bilirubin AST ALT Alkaline Phosphatase Total Creatine Kinase B-Natriuretic Peptide Total Protein Albumin Urine Color Urine Appearance Urine pH Ur Specific [place] Urine Protein Urine Glucose (UA) Urine Ketones Urine Blood Urine Nitrite Ur Leukocyte Esterase Urine Opiates Screen Urine Fentanyl Screen Ur Barbiturates Screen Ur Phencyclidine Scrn Ur Amphetamines Screen U Benzodiazepines Scrn Urine Cocaine Screen U Marijuana (THC) Screen Ethyl Alcohol 09/08/23 09/08/23 19:21 20:10 MCV MCH MCHC RDW Plt Count MPV Immature Gran % (Auto) Neut % (Auto) Lymph % (Auto) Morris % (Auto) Eos % (Auto) Baso % (Auto) Lymph # (Auto) Morris # (Auto) Eos # (Auto) Baso # (Auto) Abs Immat Gran (auto) Absolute Neuts (auto) Absolute Nucleated RBC Nucleated RBC % (auto) Hold Purple Top PT INR APTT VBG pH VBG pCO2 VBG pO2 VBG HCO3 VBG O2 Saturation VBG Base Excess Anion Gap Estim Creat Clear Calc Estimated GFR POC Glucose 58 L* 141 H Random Glucose Lactic Acid Lactic Acid F/U @ 2Hr Calcium Magnesium Total Bilirubin AST ALT Alkaline Phosphatase Total Creatine Kinase B-Natriuretic Peptide Total Protein Albumin Urine Color Urine Appearance Urine pH Ur Specific [place] Urine Protein Urine Glucose (UA) Urine Ketones Urine Blood Urine Nitrite Ur Leukocyte Esterase Urine Opiates Screen Urine Fentanyl Screen Ur Barbiturates Screen Ur Phencyclidine Scrn Ur Amphetamines Screen U Benzodiazepines Scrn Urine Cocaine Screen U Marijuana (THC) Screen Ethyl Alcohol Imaging Radiologist's Impressions: Impressions Chest X-Ray 09/08/23 11:07 IMPRESSION: Trace bilateral pleural effusions. Enlarged cardiac silhouette. Head CT 09/08/23 11:09 IMPRESSION: There is hypoattenuation in bilateral occipital lobes with loss of dyson-white differentiation. This may represent acute ischemia. Advise correlation with MRI brain. Brain MRI 09/08/23 16:40 IMPRESSION: There are scattered chronic small vessel ischemic changes within the periventricular white matter. Otherwise unremarkable examination. No evidence of acute territorial infarct or hemorrhage. Assessment and Plan (1) Toxic metabolic encephalopathy: Status: Acute (2) Suicide attempt: Status: Acute (3) Drug overdose: Status: Acute (4) Chronic anticoagulation: Status: Acute Plan 73 years old lady with PMH of DMII, hx DVT on Eliquis, HTN, depression among other behavioural issues who presents to the hospital w AMS after overdose with Klonipin and tramadol. Toxic metabolic encephalopathy 2/2 overdose in suicidal attempt Unclear what meds did she take: reports of Klonipin empty bottle and Tramadol? which is not on her medlist. more alert during observation in ED, able to tolerate diet aspiration risk check Topiramate level Urine tox negative for Benzos. Poison control following; rec repeat EKG in the morning neurochecks Psychiatry evaluation for medications advice Hold Mando, Klonopine Low Lamotrigine , Bupropion and Topiramate doses for now (hold if altered in morning) Sitter DMII POC , Humalog on D5NS now diabetic diet Hx DVT continue Eliquis DVT PPx Eliquis Time Spent With Patient Time: Total time managing care of this patient today ____ minutes. Quality Stroke Does the patient have a stroke diagnosis?: No VTE Prior VTE?: Yes VTE Risk Level:: Medical - moderate - high VTE Device Contraindication: Treatment Not Indicated VTE Drug Contraindication: N/A - Med Ordered
[2023-09-09 01:42] LABS: Glucose, Whole Blood 86 mg/dL (60-115)
[2023-09-09 03:14] LABS: Glucose, Whole Blood 87 mg/dL (60-115)
[2023-09-09 05:26] LABS: Hemoglobin 11.8 g/dl (12.0-16.0); Mean Corpuscular HGB Conc 31.1 g/dl (31.0-35.0); Mean Corpuscular Hemoglobin 29.5 pg (27.0-33.0); Mean Platelet Volume 10.4 fL (9.4-12.3); Platelet Count 170 X10*3/uL (160-400); White Blood Count 8.4 X10*3/uL (4.8-10.8)
[2023-09-09 05:44] LABS: Anion Gap 15 (12-20); Blood Urea Nitrogen 11 mg/dL (9-16); Calcium 9.3 mg/dL (8.4-10.2); Carbon Dioxide 20 mmol/L (22-29); Chloride 114 mmol/L (96-108); Creatinine Clr Calc Pharmacy 91.9; Estimated Glomerular Filt Rate > 60; Glucose Random 96 mg/dL (60-115); Potassium 4.3 mmol/L (3.3-5.1); Sodium 145 mmol/L (135-145)
--- NOTE | 2023-09-09 07:00 | ECG_ITS ---
Test Reason : OVERDOSE Blood Pressure : / mmHG Vent. Rate : 079 BPM Atrial Rate : 000 BPM P-R Int : 000 ms QRS Dur : 096 ms QT Int : 408 ms P-R-T Axes : 000 -06 054 degrees QTc Int : 467 ms Atrial fibrillation Low voltage QRS Abnormal ECG When compared with ECG of 08-SEP-2023 10:24, Atrial fibrillation has replaced Atrial flutter Criteria for Inferior infarct are no longer Present Referred By: Cesar Javier Electronically Signed By:JERILYN STEPHENSON MD
--- NOTE | 2023-09-09 07:04 | PC.NURSE ---
Patient resting comfortably, respirations even and unlabored, remains with 1:1 at bedside for safety. VSS, nsr on monitor
--- NOTE | 2023-09-09 07:04 | PC.NURSE ---
Late entry- PT alert and oriented to time place situation and name. PT arousable to name although drowsy. PT POC during beginning of shift 56- dextorse 50% administered as PT too drowsy to consumed liquids safely. Medication had with positive effect- POC 141. POC remained stable in the 80s. VSS. PT denies SI/H a this time report she took the medication because her family is planning on selling the family home that she has lived in for the past 20 years. Plan is for pt to be admitted for repeat labs and to be cleared for psych. VSS, Safety precautions in place, call solano within reach. Plan of care ongoing.
[2023-09-09 07:25] LABS: Glucose, Whole Blood 109 mg/dL (60-115)
[2023-09-09] MEDS: lisinopriL 40 MG TABLET PO (08:18)
[2023-09-09] MEDS: amLODIPine Besylate 2.5 MG TABLET PO (08:18)
[2023-09-09] MEDS: buPROPion HCl XL 300 MG TAB.ER.24H PO (08:18)
[2023-09-09] MEDS: Apixaban 5 MG TABLET PO ×2 (08:18→20:21)
[2023-09-09] MEDS: DULoxetine HCl 60 MG CAPSULE.DR 120 MG PO (08:18)
[2023-09-09] MEDS: Topiramate 25 MG TABLET 75 MG PO ×2 (08:18→20:22)
[2023-09-09] MEDS: Omeprazole 40 MG CAPSULE.DR PO (08:19)
[2023-09-09] MEDS: metFORMIN HCl 500 MG TABLET PO ×2 (08:19→20:21)
[2023-09-09] MEDS: lamoTRIgine 25 MG TABLET 75 MG PO (08:19)
[2023-09-09] MEDS: Metoprolol Tartrate 25 MG TABLET PO ×2 (08:19→20:21)
[2023-09-09] MEDS: Atorvastatin Calcium 40 MG TABLET PO (08:19)
[2023-09-09] MEDS: Dextrose 5 % and 0.9 % NaCl 1,000 ML 100 ML IVCONT ×2 (08:28→18:30)
--- NOTE | 2023-09-09 08:52 | PC.NURSE ---
Patient alert and oriented. Home dose of gabapentin confirmed. Patient with scabs on toes, patient reports she picks at toes when she is nervous. Therapy in room working with patient.
--- NOTE | 2023-09-09 10:51 | PC.NURSE ---
Beard cath removed per MD order. 97% on RA.
--- NOTE | 2023-09-09 12:03 | MHC.EDTECH ---
Pt ambulated to the bathroom assisted with walker, steady gait. Resting in bed quietly watching tv, call solano within reach
[2023-09-09 12:04] LABS: Glucose, Whole Blood 111 mg/dL (60-115)
--- NOTE | 2023-09-09 12:53 | P.PNIM_ITS ---
Subjective Subjective Date of Service: 09/09/23 Interval History: no complaints Physical Exam 2 Vital Signs: Vital Signs: Last Vital Signs Temp 97.5 F 09/09/23 05:08 Pulse 89 09/09/23 11:39 Resp 17 09/09/23 11:39 BP 130/73 09/09/23 11:39 Pulse Ox 95 09/09/23 11:39 O2 Del Method Room Air 09/09/23 11:39 O2 Flow Rate 4 09/09/23 05:08 Oxygen Flow Rate 3 09/08/23 10:43 BMI result Body Mass Index 49.5 General: AO X 3, no acute distress Resp: CTA bilateral, no accessory muscles used CVS: S1,S2,RRR GI: soft, non tender, non distended Neuro: motor grossly intact, alert Objective Data Active Medications Acetaminophen (Acetaminophen 325 Mg Tablet) 650 mg PO Q6H PRN PRN Reason: Pain, Mild (Pain Scale 1-3) Amlodipine Besylate (Amlodipine Besylate 2.5 Mg Tablet) 2.5 mg PO DAILY [facility]; Protocol Last Admin: 09/09/23 08:18 Dose: 2.5 mg Documented By: ALBINA Apixaban (Apixaban 5 Mg Tablet) 5 mg PO BID [facility] Last Admin: 09/09/23 08:18 Dose: 5 mg Documented By: ALBINA Atorvastatin Calcium (Atorvastatin Calcium 40 Mg Tablet) 40 mg PO DAILY [facility] Last Admin: 09/09/23 08:19 Dose: 40 mg Documented By: ALBINA Bupropion HCl (Bupropion Hcl Xl 300 Mg Tab.Er.24h) 300 mg PO DAILY [facility] Last Admin: 09/09/23 08:18 Dose: 300 mg Documented By: ALBINA Duloxetine HCl (Duloxetine Hcl 60 Mg Capsule.Dr) 120 mg PO DAILY [facility] Last Admin: 09/09/23 08:18 Dose: 120 mg Documented By: ALBINA Dextrose/Sodium Chloride (D5ns) 1,000 mls @ 100 mls/hr IVCONT .Q10H [facility] Last Admin: 09/09/23 08:28 Dose: 100 mls/hr Documented By: ALBINA Insulin Human Lispro (Insulin Lispro 100 Unit/Ml 3 Ml Vial) 0 unit SUBCUT QIDACHS [facility]; Protocol Last Admin: 09/09/23 12:06 Dose: Not Given Documented By: ALBINA Non-Admin Reason: No Insulin Coverage Lamotrigine (Lamotrigine 25 Mg Tablet) 75 mg PO DAILY [facility] Last Admin: 09/09/23 08:19 Dose: 75 mg Documented By: ALBINA Lisinopril (Lisinopril 40 Mg Tablet) 40 mg PO DAILY [facility]; Protocol Last Admin: 09/09/23 08:18 Dose: 40 mg Documented By: ALBINA Metformin HCl (Metformin Hcl 500 Mg Tablet) 500 mg PO BID [facility] Last Admin: 09/09/23 08:19 Dose: 500 mg Documented By: ALBINA Metoprolol Tartrate (Metoprolol Tartrate 25 Mg Tablet) 25 mg PO BID [facility]; Protocol Last Admin: 09/09/23 08:19 Dose: 25 mg Documented By: ALBINA Omeprazole (Omeprazole 40 Mg Capsule.Dr) 40 mg PO DAILY [facility] Last Admin: 09/09/23 08:19 Dose: 40 mg Documented By: ALBINA Ondansetron HCl (Ondansetron Hcl 4 Mg/2 Ml Vial) 4 mg IVPUSH Q8H PRN PRN Reason: Nausea and Vomiting Sodium Chloride (0.9 % Sodium Chloride Flush 3 Ml Syringe) 3 ml IVFLUSH QSHIFT [facility] Last Admin: 09/09/23 08:09 Dose: Not Given Documented By: ALBINA Non-Admin Reason: IV Running Topiramate (Topiramate 25 Mg Tablet) 75 mg PO BID [facility] Last Admin: 09/09/23 08:18 Dose: 75 mg Documented By: ALBINA Labs 09/09/23 05:06 09/09/23 05:06 Labs: Laboratory Results - last 24 hr 09/08/23 09/08/23 09/08/23 10:35 11:49 12:28 MCV MCH MCHC RDW Plt Count MPV Absolute Nucleated RBC Nucleated RBC % (auto) Hold Purple Top VBG pH VBG pCO2 VBG pO2 VBG HCO3 VBG O2 Saturation VBG Base Excess Anion Gap Estim Creat Clear Calc Estimated GFR POC Glucose 76 72 Random Glucose Lactic Acid F/U @ 2Hr Calcium B-Natriuretic Peptide 129 H 09/08/23 09/08/23 09/08/23 13:01 13:10 15:12 MCV MCH MCHC RDW Plt Count MPV Absolute Nucleated RBC Nucleated RBC % (auto) Hold Purple Top SEE NOTE VBG pH VBG pCO2 VBG pO2 VBG HCO3 VBG O2 Saturation VBG Base Excess Anion Gap Estim Creat Clear Calc Estimated GFR POC Glucose 82 98 Random Glucose Lactic Acid F/U @ 2Hr 1.8 Calcium B-Natriuretic Peptide 09/08/23 09/08/23 09/08/23 15:22 16:47 18:06 MCV MCH MCHC RDW Plt Count MPV Absolute Nucleated RBC Nucleated RBC % (auto) Hold Purple Top VBG pH 7.40 VBG pCO2 42 VBG pO2 82 VBG HCO3 26 VBG O2 Saturation 97.0 VBG Base Excess 1.3 Anion Gap Estim Creat Clear Calc Estimated GFR POC Glucose 82 80 Random Glucose Lactic Acid F/U @ 2Hr Calcium B-Natriuretic Peptide 09/08/23 09/08/23 09/09/23 19:21 20:10 01:38 MCV MCH MCHC RDW Plt Count MPV Absolute Nucleated RBC Nucleated RBC % (auto) Hold Purple Top VBG pH VBG pCO2 VBG pO2 VBG HCO3 VBG O2 Saturation VBG Base Excess Anion Gap Estim Creat Clear Calc Estimated GFR POC Glucose 58 L* 141 H 86 Random Glucose Lactic Acid F/U @ 2Hr Calcium B-Natriuretic Peptide 09/09/23 09/09/23 09/09/23 03:09 05:06 07:22 MCV 95.0 MCH 29.5 MCHC 31.1 RDW 17.0 H Plt Count 170 D MPV 10.4 Absolute Nucleated RBC 0.000 Nucleated RBC % (auto) 0.0 Hold Purple Top VBG pH VBG pCO2 VBG pO2 VBG HCO3 VBG O2 Saturation VBG Base Excess Anion Gap 15 Estim Creat Clear Calc 91.9 Estimated GFR > 60 POC Glucose 87 109 Random Glucose 96 Lactic Acid F/U @ 2Hr Calcium 9.3 D B-Natriuretic Peptide 09/09/23 12:00 MCV MCH MCHC RDW Plt Count MPV Absolute Nucleated RBC Nucleated RBC % (auto) Hold Purple Top VBG pH VBG pCO2 VBG pO2 VBG HCO3 VBG O2 Saturation VBG Base Excess Anion Gap Estim Creat Clear Calc Estimated GFR POC Glucose 111 Random Glucose Lactic Acid F/U @ 2Hr Calcium B-Natriuretic Peptide Microbiology Microbiology Results: Microbiology 09/08/23 10:47 Blood Culture - Preliminary Blood - Venous No growth after 24 hours. Assessment and Plan (1) Toxic metabolic encephalopathy: Status: Acute Plan 73F PMH DM, paroxysmal afib, dvt, htn, depression, morbid obeisty, presented with ams after klonipn and tramadol OD acute toxic metabolic encephalopathy due to intentional overdose, reported to be klonipin and tramadol ekg afib, qtc 467 mental status back to baseline medically cleared care team eval DM insulin paroxysmal afib lopressor, eliquis history of dvt eliquis morbid obesity weight loss full code reason for continued hospitalization:awaiting care team eval Time Spent With Patient Time: Total time managing care of this patient today ____ minutes. Quality Stroke Does the patient have a stroke diagnosis?: No VTE Prior VTE?: Yes VTE Risk Level:: Medical - moderate - high VTE Device Contraindication: Treatment Not Indicated VTE Drug Contraindication: N/A - Med Ordered
--- NOTE | 2023-09-09 15:11 | MHC.CM.PN ---
Patricia 09/09/23 Pt lives alone, she does not have home health services, she has med equipment of bipap machine, and a walker. She has used [facility] in the past, declined to use again if needed. Her sister, Paola Reyes is her HCP, and she is able to pick her up to transport home at [place]. Pt has been to [facility] in [place] in the past, and reports she would not go again. She sees a psychiatrist, Suresh Beaulieu in the community. Her PCP is Erik Kim in [place]. CM will follow and assist with DC plan.
--- NOTE | 2023-09-09 15:25 | PC.NURSE ---
Report given to accepting unit
--- NOTE | 2023-09-09 15:50 | MHC.CARE ---
CARE Team attempts to evaluate this pt, however interrupted by pt being transferred to medical unit. Please re consult CARE Team when pt is ready to be seen.
[2023-09-09 16:58] LABS: Glucose, Whole Blood 128 mg/dL (60-115)
[2023-09-09 20:13] LABS: Glucose, Whole Blood 142 mg/dL (60-115)
[2023-09-09] MEDS: Nystatin Powder 15 GM BOTTLE 1 APPL TOPICAL (20:22)
[2023-09-09] MEDS: 0.9 % Sodium Chloride Flush 3 ML SYRINGE IVFLUSH (20:23)
[2023-09-10 04:00] VITALS: BP 131/65; PULSE 79; RESP 18; TEMP 36.8; O2SAT 95
[2023-09-10] MEDS: Dextrose 5 % and 0.9 % NaCl 1,000 ML 100 ML IVCONT (04:01)
[2023-09-10 07:00] LABS: Glucose, Whole Blood 97 mg/dL (60-115)
[2023-09-10 07:02] VITALS: BP 126/80; PULSE 92; RESP 20; TEMP 36.2; O2SAT 93
[2023-09-10] MEDS: Apixaban 5 MG TABLET PO ×2 (09:01→20:05)
[2023-09-10] MEDS: Atorvastatin Calcium 40 MG TABLET PO (09:01)
[2023-09-10] MEDS: metFORMIN HCl 500 MG TABLET PO (09:01)
[2023-09-10] MEDS: Omeprazole 40 MG CAPSULE.DR PO (09:01)
[2023-09-10] MEDS: buPROPion HCl XL 300 MG TAB.ER.24H PO (09:01)
[2023-09-10] MEDS: Metoprolol Tartrate 25 MG TABLET PO ×2 (09:02→20:05)
[2023-09-10] MEDS: lamoTRIgine 25 MG TABLET 75 MG PO (09:02)
[2023-09-10] MEDS: Topiramate 25 MG TABLET 75 MG PO ×2 (09:03→20:05)
[2023-09-10] MEDS: DULoxetine HCl 60 MG CAPSULE.DR 120 MG PO (09:03)
[2023-09-10] MEDS: Nystatin Powder 15 GM BOTTLE 1 APPL TOPICAL ×2 (09:05→20:09)
[2023-09-10] MEDS: 0.9 % Sodium Chloride Flush 3 ML SYRINGE IVFLUSH ×3 (09:05→20:10)
[2023-09-10 10:56] VITALS: BP 114/82; PULSE 93; RESP 20; TEMP 36.5; O2SAT 97
[2023-09-10 10:58] LABS: Glucose, Whole Blood 80 mg/dL (60-115)
--- NOTE | 2023-09-10 14:45 | P.PNIM_ITS ---
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 Review of Systems Review of Systems: Yes all other systems are reviewed and are negative Physical Exam 2 Vital Signs: Vital Signs: Last Vital Signs Temp 97.7 F 09/10/23 10:56 Pulse 93 09/10/23 10:56 Resp 20 09/10/23 10:56 BP 114/82 09/10/23 10:56 Pulse Ox 97 09/10/23 10:56 O2 Del Method Room Air 09/10/23 10:56 O2 Flow Rate 4 09/09/23 05:08 Oxygen Flow Rate 3 09/08/23 10:43 BMI result Body Mass Index 49.6 Const: Other: Constitutional : Awake, interactive, obese , not in distress Neck : Normal inspection, Supple Cardiovascular : RRR, no JVP, no lower extremity edema Respiratory : good bilateral air entry, no crackles, wheezes or rhonchi Gastrointestinal: soft, lax, Normal bowel sounds, Non tender Skin : Warm, Dry Neurological : Alert & oriented x3, No focal deficit Objective Data Active Medications Acetaminophen (Acetaminophen 325 Mg Tablet) 650 mg PO Q6H PRN PRN Reason: Pain, Mild (Pain Scale 1-3) Amlodipine Besylate (Amlodipine Besylate 2.5 Mg Tablet) 2.5 mg PO DAILY [facility]; Protocol Last Admin: 09/10/23 09:03 Dose: Not Given Documented By: PIERO Non-Admin Reason: Patient Refused Apixaban (Apixaban 5 Mg Tablet) 5 mg PO BID [facility] Last Admin: 09/10/23 09:01 Dose: 5 mg Documented By: PIERO Atorvastatin Calcium (Atorvastatin Calcium 40 Mg Tablet) 40 mg PO DAILY [facility] Last Admin: 09/10/23 09:01 Dose: 40 mg Documented By: PIERO Bupropion HCl (Bupropion Hcl Xl 300 Mg Tab.Er.24h) 300 mg PO DAILY [facility] Last Admin: 09/10/23 09:01 Dose: 300 mg Documented By: PIERO Clonazepam (Clonazepam 0.5 Mg Tablet) 0.5 mg PO DAILY PRN PRN Reason: Anxiety Duloxetine HCl (Duloxetine Hcl 60 Mg Capsule.Dr) 120 mg PO DAILY [facility] Last Admin: 09/10/23 09:03 Dose: 120 mg Documented By: PIERO Gabapentin (Gabapentin 600 Mg Tablet) 300 mg PO BEDTIME [facility] Insulin Human Lispro (Insulin Lispro 100 Unit/Ml 3 Ml Vial) 0 unit SUBCUT QIDACHS [facility]; Protocol Last Admin: 09/10/23 12:35 Dose: Not Given Documented By: PIERO Non-Admin Reason: No Insulin Coverage Lamotrigine (Lamotrigine 25 Mg Tablet) 75 mg PO DAILY [facility] Last Admin: 09/10/23 09:02 Dose: 75 mg Documented By: PIERO Lisinopril (Lisinopril 40 Mg Tablet) 40 mg PO DAILY [facility]; Protocol Last Admin: 09/10/23 09:12 Dose: Not Given Documented By: PIERO Non-Admin Reason: Patient Refused Metformin HCl (Metformin Hcl 500 Mg Tablet) 500 mg PO BID [facility] Last Admin: 09/10/23 09:01 Dose: 500 mg Documented By: PIERO Metoprolol Tartrate (Metoprolol Tartrate 25 Mg Tablet) 25 mg PO BID [facility]; Protocol Last Admin: 09/10/23 09:02 Dose: 25 mg Documented By: PIERO Nystatin (Nystatin Powder 15 Gm Bottle) 1 appl TOPICAL TID [facility]; Protocol Last Admin: 09/10/23 14:19 Dose: Not Given Documented By: PIERO Non-Admin Reason: Patient Refused Omeprazole (Omeprazole 40 Mg Capsule.Dr) 40 mg PO DAILY [facility] Last Admin: 09/10/23 09:01 Dose: 40 mg Documented By: PIERO Ondansetron HCl (Ondansetron Hcl 4 Mg/2 Ml Vial) 4 mg IVPUSH Q8H PRN PRN Reason: Nausea and Vomiting Sodium Chloride (0.9 % Sodium Chloride Flush 3 Ml Syringe) 3 ml IVFLUSH QSHIFT [facility] Last Admin: 09/10/23 09:05 Dose: 3 ml Documented By: PIERO Topiramate (Topiramate 25 Mg Tablet) 75 mg PO BID [facility] Last Admin: 09/10/23 09:03 Dose: 75 mg Documented By: PIERO Labs 09/09/23 05:06 09/09/23 05:06 Labs: Laboratory Results - last 24 hr 09/09/23 09/09/23 09/10/23 16:22 20:09 06:56 POC Glucose 128 H 142 H 97 09/10/23 10:55 POC Glucose 80 Microbiology Microbiology Results: Microbiology 09/08/23 10:48 Blood Culture - Preliminary Blood - Venous No growth after 48 hours. 09/08/23 10:47 Blood Culture - Preliminary Blood - Venous No growth after 48 hours. Assessment and Plan (1) Toxic metabolic encephalopathy: Status: Acute (2) Suicide attempt: Status: Acute (3) Drug overdose: Status: Acute Plan 73F PMH DM, paroxysmal afib, dvt, htn, depression, morbid obeisty, presented with ams after klonipn and tramadol OD acute toxic metabolic encephalopathy due to intentional overdose, reported to be klonipin and tramadol mental status back to baseline medically cleared care team eval pending placement DM insulin paroxysmal afib lopressor, eliquis history of dvt eliquis morbid obesity weight loss full code reason for continued hospitalization: pending placement to psych unit Quality Stroke Does the patient have a stroke diagnosis?: No VTE Prior VTE?: Yes VTE Risk Level:: Medical - moderate - high VTE Device Contraindication: Treatment Not Indicated VTE Drug Contraindication: N/A - Med Ordered
--- NOTE | 2023-09-10 14:56 | MHC.CM.PN ---
EMR reviewed and per MD rounds, pt is medically cleared pending available psych bed placement. CM will continue to follow.
[2023-09-10 15:36] VITALS: BP 123/75; PULSE 91; RESP 18; TEMP 36.6; O2SAT 97
--- NOTE | 2023-09-10 16:22 | MHC.CARE ---
Patient evaluated by the CARE Team and will require an inpatient psychiatric placement, she is in agreement with this plan. S1 has a planned discharge tomorrow and should be able to transfer patient to the unit. Provider, Dr Javier and shift RNs updated
--- NOTE | 2023-09-10 16:29 | HO.WOUND ---
Wound Consult: Initial 73yr old female admitted to [facility] on? 09/09/23 - See progress notes and H&P for detailed history. Arrival to bedside patient was visiting with family and reported direct care nurse just cleansed wounds with NS and covered with dressing. She requests my assessment at future date and time. Photo reviewed and topical recommendations will be made from review of photo until assessment is completed. Right Foot Left Foot Recommendations: 1. Bilateral Toes - Cleanse with NS, pat dry. Apply cut to size Durafiber [employer] cover with dry gauze wrap. Change daily. Re-consult wound care Nurse for wound deterioration or wound changes.
[2023-09-10 16:48] LABS: Glucose, Whole Blood 83 mg/dL (60-115)
[2023-09-10 18:50] VITALS: BP 123/69; PULSE 86; RESP 16; TEMP 36.4; O2SAT 93
--- NOTE | 2023-09-10 19:04 | PC.NURSE ---
family brought CPAP from home , pt stated that she is using every night at . DR Javier and respiratory therapist was notified , stated that is okay for pt to use cpap here
[2023-09-10] MEDS: Gabapentin 600 MG TABLET 300 MG PO (20:05)
[2023-09-10 21:01] LABS: Glucose, Whole Blood 71 mg/dL (60-115)
[2023-09-10 23:06] VITALS: BP 141/69; PULSE 81; RESP 18; TEMP 36.4; O2SAT 98
--- NOTE | 2023-09-11 00:12 | PC.NURSE ---
Assumed care 0:00 midnight 09/11.
[2023-09-11 00:33] LABS: Glucose, Whole Blood 92 mg/dL (60-115)
[2023-09-11 03:13] VITALS: BP 132/83; PULSE 79; RESP 18; TEMP 36.3; O2SAT 95
[2023-09-11 03:23] LABS: Appearance Urine Clear; Color Urine Yellow; Glucose Urine UA Negative (Negative); Leukocyte Esterase Urine Small (1+) (Negative); Nitrite Urine Negative (Negative); PH 7.5 (5.0-9.0); Specific Gravity - Urine <= 1.005 (1.005-1.025); UMIC TRIGGER UA YES; Urine Blood Negative (Negative); Urine Ketones Negative (Negative); Urine Protein Negative (Neg-Trace)
[2023-09-11 03:28] LABS: Bacteria Urine None Seen (None Seen); Hyaline Casts Urine 0-2 /LPF (0-2); RBC Urine 0-2 /HPF (0-2); Squamous Epithelial Cell Urine 0-2 /HPF (0-2)
[2023-09-11 07:02] VITALS: BP 132/83; PULSE 67; RESP 20; TEMP 36.8; O2SAT 99
[2023-09-11 07:10] LABS: Glucose, Whole Blood 67 mg/dL (60-115)
[2023-09-11 07:50] LABS: Glucose, Whole Blood 67 mg/dL (60-115)
[2023-09-11 08:33] LABS: Glucose, Whole Blood 108 mg/dL (60-115)
[2023-09-11] MEDS: lamoTRIgine 25 MG TABLET 75 MG PO (08:55)
[2023-09-11] MEDS: buPROPion HCl XL 300 MG TAB.ER.24H PO (08:55)
[2023-09-11] MEDS: Atorvastatin Calcium 40 MG TABLET PO (08:55)
[2023-09-11] MEDS: Omeprazole 40 MG CAPSULE.DR PO (08:55)
[2023-09-11] MEDS: DULoxetine HCl 60 MG CAPSULE.DR 120 MG PO (08:55)
[2023-09-11] MEDS: Apixaban 5 MG TABLET PO (08:55)
[2023-09-11] MEDS: Topiramate 25 MG TABLET 75 MG PO (08:55)
[2023-09-11] MEDS: Metoprolol Tartrate 25 MG TABLET PO (08:56)
[2023-09-11] MEDS: 0.9 % Sodium Chloride Flush 3 ML SYRINGE IVFLUSH (08:56)
[2023-09-11] MEDS: lisinopriL 40 MG TABLET PO (08:56)
[2023-09-11] MEDS: metFORMIN HCl 500 MG TABLET PO (08:56)
[2023-09-11] MEDS: amLODIPine Besylate 2.5 MG TABLET PO (08:56)
[2023-09-11 08:57] VITALS: BP 110/66; PULSE 81
[2023-09-11] MEDS: Nystatin Powder 15 GM BOTTLE 1 APPL TOPICAL (09:02)
--- NOTE | 2023-09-11 09:45 | MHC.CARE ---
Call from sister Nicole who lives in [place] and plans to travel here when patient is discharged to stay with her.
[2023-09-11 10:57] LABS: Glucose, Whole Blood 90 mg/dL (60-115)
[2023-09-11 11:00] VITALS: BP 124/80; PULSE 89; RESP 20; TEMP 36.4; O2SAT 98
--- NOTE | 2023-09-11 12:26 | PM.DS ---
DS: Providers Provider Date of Service: 09/11/23 Date of admission: 09/09/23 00:27 Primary care physician: Erik Kim DO Consults: 09/09/23 00:32 Consult for Sitter Routine Reason for consultation: SI Consult to Psychiatry Routine Consulting Provider: Psych Covering Reason for consultation: OVerdose, altered mentation, Polypharmacy for med advice 09/09/23 12:52 Consult to Care Team Routine Comment: Reason for consultation: overdose, medically cleared 09/10/23 09:50 Consult to Care Team Stat Comment: Reason for consultation: Medically cleared since 09/09 morning 09/10/23 16:04 Consult to Wound Care Routine Reason for consultation: diabetic feet , bleeding skin cracks DS: Diagnosis Discharge Diagnosis (1) Toxic metabolic encephalopathy: Status: Acute (2) Suicide attempt: Status: Acute (3) Drug overdose: Status: Acute DS: Summary Hospital Course Hospital Course: Admission note HPI 73 years old lady with PMH of DMII, hx DVT on Eliquis, HTN, depression among other behavioural issues who presents to the hospital w AMS after overdose with Klonipin and tramadol. According to EMS she filled her meds recently. on records that was on 08/29. Also she is not on Tramadol so not sure if that was right as the patient was not able to provide much of history as she was lethargic at time of presentation. reported that she had some problems with her family and took all the tablets in suicidal attempt as family called EMS. i could not reach out to family this time. She was monitored in ED with improvement in mental status with IV fluids, POC and neurochecks . Images of CT and MRI brain were negative for any acute findings. blood work within normal with one episode of hypoglycemia reported. Urine Tox negative for Benzos which goes against the original story . Admitted for observation. Hospital course Admitted for acute toxic metabolic encephalopathy due to intentional overdose, reported to be klonipin and tramadol for suicidal attempt. The patient was observed closely with Tele, lab work and clinically. she was started on IVF and held most of her home medications. mental status back to baseline. EKG showed normal sinus rhythm. Discussed with psychiatry team as the patient was evaluated by care team and will be transferred to psychiatric unit for further evaluation and treatment. Time Attestation Discharge coordination time: Greater than 30 minutes Quality: Safe Use of Opioids Does Pt have an Active Cancer Diagnosis on the Problem List?: No Quality: Stroke Does the patient have a stroke diagnosis?: No Physical Exam Vital Signs: Vital Signs: Last Vital Signs Temp 97.6 F 09/11/23 11:00 Pulse 89 09/11/23 11:00 Resp 20 09/11/23 11:00 BP 124/80 09/11/23 11:00 Pulse Ox 98 09/11/23 11:00 O2 Del Method Room Air 09/11/23 11:00 O2 Flow Rate 4 09/09/23 05:08 Oxygen Flow Rate 3 09/08/23 10:43 BMI result Body Mass Index 49.6 Const: Other: Constitutional : Awake, interactive, obese , not in distress Neck : Normal inspection, Supple Cardiovascular : RRR, no JVP, no lower extremity edema Respiratory : good bilateral air entry, no crackles, wheezes or rhonchi Gastrointestinal: soft, lax, Normal bowel sounds, Non tender Skin : Warm, Dry Neurological : Alert & oriented x3, No focal deficit DS: Data Data Completed and Pending Labs on day of discharge: Laboratory Results - last 24 hr 09/10/23 09/10/23 09/11/23 16:43 20:55 00:24 POC Glucose 83 71 92 Urine Color Urine Appearance Urine pH Ur Specific [place] Urine Protein Urine Glucose (UA) Urine Ketones Urine Blood Urine Nitrite Ur Leukocyte Esterase Urine RBC Urine WBC Ur Squamous Epith Cells Urine Bacteria Hyaline Casts 09/11/23 09/11/23 09/11/23 03:00 07:01 07:46 POC Glucose 67 67 Urine Color Yellow Urine Appearance Clear Urine pH 7.5 Ur Specific [place] <= 1.005 Urine Protein Negative Urine Glucose (UA) Negative Urine Ketones Negative Urine Blood Negative Urine Nitrite Negative Ur Leukocyte Esterase Small (1+) H Urine RBC 0-2 Urine WBC 6-10 H Ur Squamous Epith Cells 0-2 Urine Bacteria None Seen Hyaline Casts 0-2 09/11/23 09/11/23 08:29 10:54 POC Glucose 108 90 Urine Color Urine Appearance Urine pH Ur Specific [place] Urine Protein Urine Glucose (UA) Urine Ketones Urine Blood Urine Nitrite Ur Leukocyte Esterase Urine RBC Urine WBC Ur Squamous Epith Cells Urine Bacteria Hyaline Casts Preliminary micro results at discharge 09/08/23 10:48 Blood Culture - Preliminary Blood - Venous No growth after 48 hours. 09/08/23 10:47 Blood Culture - Preliminary Blood - Venous No growth after 48 hours. Imaging Chest x-ray: Radiologist's impression: ITS Impressions Chest X-Ray 09/08/23 11:07 IMPRESSION: Trace bilateral pleural effusions. Enlarged cardiac silhouette. Head CT 09/08/23 11:09 IMPRESSION: There is hypoattenuation in bilateral occipital lobes with loss of dyson-white differentiation. This may represent acute ischemia. Advise correlation with MRI brain. Brain MRI 09/08/23 16:40 IMPRESSION: There are scattered chronic small vessel ischemic changes within the periventricular white matter. Otherwise unremarkable examination. No evidence of acute territorial infarct or hemorrhage. Discharge Plan Discharge Anticipated Discharge Date/Time: 09/11/23 12:24 Patient Disposition: Xfer Psychiatric Hosp Discharge Diagnosis: SI Overdose Referrals: Erik Kim DO [Primary Care Provider] - 1 Week Discharge Medications: Continued metformin 500 mg tablet 500 mg PO BID topiramate 100 mg tablet 75 mg PO BID lisinopril 40 mg tablet 40 mg PO DAILY atorvastatin 40 mg tablet 40 mg PO DAILY clonazepam 0.5 mg tablet 0.5 mg PO DAILY PRN (Reason: Anxiety) (DME) FreeStyle Lite Strips Strip See Rx Instructions .ROUTE DAILY Qty: 10 Rx Instructions: As directed omeprazole 40 mg capsule,delayed release(DR/EC) 40 mg PO DAILY Eliquis 5 mg tablet 5 mg PO BID metoprolol tartrate 25 mg tablet 25 mg PO BID bupropion HCl 300 mg tablet extended release 24 hr 300 mg PO DAILY duloxetine 60 mg capsule,delayed release(DR/EC) 120 mg PO QAM amlodipine 2.5 mg tablet 2.5 mg PO DAILY gabapentin 300 mg capsule 300 mg PO DAILY No Action lamotrigine [Lamictal] 25 mg Tablet 75 mg PO DAILY Discharge Orders: Discharge Order (Routine); Ordered 09/11/23 Ordered By: Cesar Javier Diet: Advance to usual diet Activity on Discharge: As tolerated Stand Alone Forms: Patient Portal Discharge page Care Plan Goals: . Health Concerns: . Plan of Treatment: . Discharge Date/Time: 09/11/23 14:33
[2023-09-13 05:57] LABS: Topiramate <0.5 mcg/mL (see note)
== END 2023-09-11 14:33 ==
LOC: HO.ED 17:05 → HO.EDOVER 09-09 00:44 → HO.IMC 09-09 15:00
PROVIDERS: Internal Medicine; Student in an Organized Health Care Education/Training Program; Admitting Provider Student in an Organized Health Care Education/Training Program; Emergency Provider Internal Medicine; PCP Family Medicine; Visit Provider Student in an Organized Health Care Education/Training Program
DX: R41.82 Altered mental status, unspecified (principal); T50.912A Poisoning by multiple unspecified drugs, medicaments and biological substances, intentional self-harm, initial encounter; Y92.9 Unspecified place or not applicable; R45.851 Suicidal ideations; E11.9 Type 2 diabetes mellitus without complications; I10 Essential (primary) hypertension; Z86.718 Personal history of other venous thrombosis and embolism; Z79.01 Long term (current) use of anticoagulants
CPT/HCPCS: 36415; 70450; 70551; 71045; 80048; 80053; 80201; 80307; 81001; 81003; 82550; 82803; 82947; 83605; 83735; 83880; 84484; 85025; 85027; 85610; 85730; 87040; 93005; 96361; 96374; 96375; 97116; 97162; 99285; C1758; J1610; S9485

== ENCOUNTER → 2023-09-09 00:27 | Outpatient (BNV) | payer MEDICARE, OTHER, SELFPAY | PROVIDERS: Admitting Provider Student in an Organized Health Care Education/Training Program; Emergency Provider Internal Medicine; Visit Provider Student in an Organized Health Care Education/Training Program | DX: T14.91XA Suicide attempt, initial encounter (principal); T50.901A Poisoning by unspecified drugs, medicaments and biological substances, accidental (unintentional), initial encounter; G92.8 Other toxic encephalopathy | CPT/HCPCS: 99223; 99231; 99239; 99499 ==

== ENCOUNTER 2023-09-11 15:08 | Inpatient (IN) | payer MEDICARE, OTHER, SELFPAY ==
--- OUTSIDE RECORDS SUMMARY | 2023-09-11 15:11 | XMS_ITS | Continuity of Care Document ---
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 Name Role Phone Foster Clifton MD Primary Care Physician [phone] [id number] Date(s): 04/04/22 - 06/22/22 [facility] [address] [place] [id number]- Attending Physician: Isidro Hernandez MD Admitting Physician: David SUMMERS, Isidro Erickson Referring Physician: Foster Clifton MD Allergies, Adverse Reactions, Alerts No Known Allergies Immunizations Given and Recorded Vaccine Date Status Refusal Reason Pneumococcal Vaccine (oldterm) 11/08/06 Given Medications Abilify 5 mg oral tablet 1.5 tablet = 7.5 mg, By Mouth, Daily, 0 Refills, Maintenance, 05/30/14 11:15:37 Start Date: 05/30/14 Status: Ordered amantadine 100 mg oral capsule 100 mg, 1, capsule, By Mouth, 2 times a day, # 60 capsule, Refills 2, Tot. Refills 2, Maintenance, 04/16/22 12:33:00 EDT, Route to Pharmacy Electronically, [facility]/pharmacy #[id number], Partial fill upon patient request if the prescription is for a schedule II... Start Date: 04/16/22 Status: Ordered BuPROpion By Mouth, 0 Refills, Maintenance, 12/18/21 10:34:00 EST, Partial fill upon patient request if the prescription is for a schedule II opioid drug. Start Date: 12/18/21 Status: Ordered Celebrex 100 mg oral capsule 1 capsule = 100 mg, By Mouth, Daily, 0 Refills, Maintenance, 04/19/10 13:42:07 Start Date: 04/19/10 Status: Ordered Cymbalta 60 mg oral enteric coated capsule See Instructions, 2 capsule By Mouth Daily, 0 Refills, Maintenance, EC Capsule Start Date: 10/20/12 Status: Ordered gabapentin 600 mg oral tablet See Instructions, 1 tablet By Mouth Daily 300mg in AM and 600mg in the PM, Maintenance, 10/20/12 9:53:51 EST, Tablet Start Date: 10/20/12 Status: Ordered Klonopin Tablet = 0.5 mg, By Mouth, 2 times a day, PRN Anxiety Start Date: 11/10/06 Stop Date: 11/13/06 Status: Ordered Lamictal 100 mg oral tablet See Instructions, 1.5 tablet by mouth twice a day, 0 Refills, Maintenance, Tablet Start Date: 10/20/12 Status: Ordered Lisinopril = 10 mg, By Mouth, Daily, 0 Refills, Maintenance Start Date: 04/19/10 Status: Ordered Melatonin Daily at bedtime, 0 Refills, Maintenance, 12/18/21 10:37:00 EST, Partial fill upon patient request if the prescription is for a schedule II opioid drug. Start Date: 12/18/21 Status: Ordered Metformin = 500 mg, By Mouth, 2 times a day, 0 Refills, Maintenance, 12/18/21 10:35:00 EST, Partial fill uponpatient request if the prescription is for a schedule II opioid drug. Start Date: 12/18/21 Status: Ordered Modafinil = 100 mg, By Mouth, Daily in AM, 0 Refills, Maintenance, 01/17/22 10:02:00 EST, Partial fill upon patient request if the prescription is for a schedule II opioid drug. Start Date: 01/17/22 Status: Ordered omeprazole 40 mg oral enteric coated capsule 1 capsule = 40 mg, By Mouth, Daily, 0 Refills, Maintenance, EC Capsule Start Date: 10/20/12 Status: Ordered Vital-D By Mouth, Daily, 0 Refills, Maintenance, 12/18/21 10:36:00 EST, Partial fill upon patient request if the prescription is for a schedule II opioid drug. Start Date: 12/18/21 Status: Ordered Vitamin B12 0 Refills, Maintenance, 12/18/21 10:36:00 EST, Partial fill upon patient request if the prescription is for a schedule II opioid drug. Start Date: 12/18/21 Status: Ordered Vitamin C By Mouth, Daily, 0 Refills, Maintenance, 12/18/21 10:36:00 EST, Partial fill upon patient request if the prescription is for a schedule II opioid drug. Start Date: 12/18/21 Status: Ordered Problem List Condition Effective Dates Status Health Status Inform ant Osteoarthritis of both knees(Confirmed) Active Chronic Pain(Confirmed) 10/20/12 Active Hypertension(Confirmed) 10/20/12 Active Morbid Obesity(Confirmed) Active Sleep apnea(Confirmed) 10/20/12 Active
--- OUTSIDE RECORDS SUMMARY | 2023-09-11 15:11 | XMS_ITS | Continuity of Care Document ---
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 Name Role Phone Erik Kim DO Primary Care Physician Encounter [facility] Date(s): 06/04/23 - 07/04/23 [facility] Adult [address] [place] [address]- Allergies, Adverse Reactions, Alerts Substance Reaction Severity Status Myrbetriq Hallucinations Active Immunizations Given and Recorded Vaccine Date Status Refusal Reason influenza virus vaccine, inactivated 08/06/22 Avery rded influenza virus vaccine, inactivated 08/21/21 Avery rded influenza virus vaccine, inactivated 08/09/20 Avery rded influenza virus vaccine, inactivated 07/05/19 Avery rded influenza virus vaccine, inactivated 08/08/18 Avery rded influenza virus vaccine, inactivated 08/09/17 Avery rded [id number] 12y+ bivalent booster vax 08/06/22 Recorded pneumococcal 20-valent conjugate vaccine 07/25/22 Recorded SARS-CoV-2 mRNA ([id number]) vax 03/13/22 Recorded SARS-CoV-2 (COVID-19) mRNA BNT-162b2 vac 09/03/21 Recorded SARS-CoV-2 (COVID-19) Ad26 vaccine 01/13/21 Record ed zoster vaccine, inactivated 03/13/20 Recorded zoster vaccine, inactivated 12/09/19 Recorded pneumococcal 13-valent vaccine 12/14/18 Recorded Pneumococcal Vaccine (oldterm) 11/08/06 Given Medications amLODIPine 2.5 mg oral tablet 2.5 mg, 1, tablet, By Mouth, Daily, Refills 0, Maintenance, 08/29/22 8:26:00 EDT, Partial fill uponpatient request if the prescription is for a schedule II opioid drug. Start Date: 08/29/22 Status: Ordered atorvastatin 40 mg oral tablet 1 tablet = 40 mg, By Mouth, Daily, 0 Refills, Maintenance, 07/29/22 9:18:00 EDT, Partial fill upon patient request if the prescription is for a schedule II opioid drug. Start Date: 07/29/22 Status: Ordered BuPROpion By Mouth, 0 Refills, Maintenance, 12/18/21 10:34:00 EST, Partial fill upon patient request if the prescription is for a schedule II opioid drug. Start Date: 12/18/21 Status: Ordered Cymbalta 60 mg oral enteric coated capsule See Instructions, 2 capsule By Mouth Daily, 0 Refills, Maintenance, EC Capsule Start Date: 10/20/12 Status: Ordered Eliquis 5 mg oral tablet 1 tablet = 5 mg, By Mouth, 2 times a day, # 60 tablet, 5 Refills, Maintenance, 07/29/22 9:17:00 EDT, Tablet, Partial fill upon patient request if the prescription is for a schedule II opioid drug. Start Date: 07/29/22 Status: Ordered Four-wheeled walker with seat and handbrakes Four-wheeled walker with seat and handbrakes, See Instructions, # 1 kit, Refills 0, Tot. Refills 0,Maintenance, Dx: Parkinsonism (G20), 04/28/23 11:55:00 EDT, Supply Start Date: 04/28/23 Status: Ordered gabapentin 600 mg oral tablet [...] Refills, Maintenance Start Date: 04/19/10 Status: Ordered Metformin = 500 mg, By Mouth, 2 times a day, 0 Refills, Maintenance, 12/18/21 10:35:00 EST, Partial fill uponpatient request if the prescription is for a schedule II opioid drug. Start Date: 12/18/21 Status: Ordered metoprolol 25 mg oral tablet 25 mg, 1, tablet, By Mouth, 2 times a day, # 180 tablet, Refills 0, Maintenance, 07/29/22 9:17:00 EDT, Partial fill upon patient request if the prescription is for a schedule II opioid drug. Start Date: 07/29/22 Status: Ordered omeprazole 40 mg oral enteric coated capsule 1 capsule = 40 mg, By Mouth, Daily, 0 Refills, Maintenance, EC Capsule Start Date: 10/20/12 Status: Ordered topiramate 50 mg oral tablet 2 tablet = 100 mg, By Mouth, 2 times a day, # 360 tablet, 3 Refills, Maintenance, 04/28/23 11:54:00EDT, [facility]/pharmacy #[id number], Partial fill upon patient request if the prescription is for a schedule IIopioid drug., 172.72, cm, 04/28/23 10:32:00 EDT, He... Start Date: 04/28/23 Status: Ordered Vitamin B12 0 Refills, Maintenance, 12/18/21 10:36:00 EST, Partial fill upon patient request if the prescription is for a schedule II opioid drug. Start Date: 12/18/21 Status: Ordered Problem List Condition Confirmation Course Effective Dates Status H ealth Status Informant Anemia Confirmed Active Atrial fibrillation Confirmed Active [place] esophagus Confirmed Active Osteoarthritis of both knees Confirmed Active Borderline personality disorder Confirmed Active Chronic Pain Confirmed 10/20/12 Active Chronic rhinosinusitis Confirmed Active Rectocele Confirmed Active Essential hypertension Confirmed Active GERD - Gastro-esophageal reflux disease Confirmed Active Fecal incontinence Confirmed Active Major depression in partial remission Confirmed Active Urinary incontinence, mixed Confirmed Active Morbid Obesity Confirmed Active Obstructive sleep apnea on CPAP Confirmed Active AF (paroxysmal atrial fibrillation) Confirmed Active Medicare annual wellness visit, subsequent Confirmed Active Resting tremor Confirmed Active Severe obesity Confirmed Active Sleep apnea Confirmed 10/20/12 Active Diabetes type 2, controlled Confirmed Active Type 2 diabetes mellitus with peripheral neuropathy Confirmed Active Social History Social History Type Response Smoking Status Former smoker, quit more than 30 days ago; Other: quit 1973 6 yrs toal 11/13 6; Number of years: 6; Total pack years: 2; entered on: 8/24/23 Sex Patient Care team information Care Team Personnel Name: Armani Reid DO Position: [facility] Renal MD Member Role: Lifetime Consulting Physician Address: Address: [address] [facility] [place] [address]- Name: Erik Kim DO Position: [facility] Physician - Primary Care Member Role: PCP Address: Address: [address] [place] [id number]- Care Team Related Persons Name: LORENA HARRISON Address: [address] [place] [address] Name: LAYNE TREADWELL Address: home [address] [place] [address]
--- OUTSIDE RECORDS SUMMARY | 2023-09-11 15:11 | XMS_ITS | Continuity of Care Document ---
Author Name Unknown Organization [facility] Address [address] [facility], [address] Floor, [address] [place] [id number]- Care Team Providers Care Direct Service Worker Name Role Phone Etienne SUMMERS, Foster Armstrong Primary Care Physician [phone] [place] [facility] [place] 11/13/22 - 03/13/23 [facility] [address], [address], [address] [place] [id number] Attending Physician: Erik Canales MD Admitting Physician: Erik Canales MD Referring Physician: Justa Cuevas MD Allergies, Adverse Reactions, Alerts No Known Allergies Immunizations Given and Recorded Vaccine Date Status Refusal Reason Pneumococcal Vaccine (oldterm) 11/08/06 Given Medications amLODIPine [...] opioid drug. Start Date: 12/18/21 Status: Ordered carbidopa-levodopa 25 mg-100 mg oral tablet 1 tablet, By Mouth, 3 times a day, # 90 tablet, 3 Refills, Maintenance, 01/15/23 15:27:00 EST, Tablet, [facility]/pharmacy #[id number], Partial fill upon patient request if the prescription is for a schedule II opioid drug., 1 tablet By Mouth 3 times a day, 172.72... Start Date: 01/15/23 Status: Ordered Cymbalta 60 mg oral enteric [...] opioid drug. Start Date: 07/29/22 Status: Ordered gabapentin 600 mg oral tablet [...] opioid drug. Start Date: 07/29/22 Status: Ordered mirabegron 50 mg oral tablet, extended release 1 tablet = 50 mg, By Mouth, Daily, do not crush or chew, # 30 tablet, 5 Refills, Maintenance, 09/05/22 12:31:00 EDT, ER Tablet, [facility]/pharmacy #[id number], Partial fill upon patient request if the prescription is for a schedule II opioid drug., 172.72, cm, 10... Start Date: 09/05/22 Status: Ordered Modafinil = 100 mg, By [...] Effective Dates Status H ealth Status Informant Atrial fibrillation Confirmed Active Osteoarthritis of both knees Confirmed Active Chronic Pain Confirmed 10/20/12 Active Rectocele Confirmed Active GERD - Gastro-esophageal reflux disease Confirmed Active HTN - Hypertension Confirmed Active Hypertension Confirmed 10/20/12 Active Fecal incontinence Confirmed Active Urinary incontinence, mixed Confirmed Active Morbid Obesity Confirmed Active Severe obesity Confirmed Active Sleep apnea Confirmed 10/20/12 Active Social History Social History Type Response Smoking Status Former smoker, quit more than 30 days ago entered on: 07/29/22 Sex Patient Care team information Care Team Personnel Name: Armani Reid DO Position: [facility] Renal MD Member Role: Lifetime Consulting Physician Address: Address: [address] [place] [address] [address] [facility] [place] [address]- Name: Foster Clifton MD Position: [facility] General Pediatrics MD Member Role: PCP Address: Address: [address] [place] [address]- Care Team Related Persons Name: LORENA HARRISON Address: home [address] [place] [address] Name: LAYNE TREADWELL Address: home [address] [place] [address]
--- OUTSIDE RECORDS SUMMARY | 2023-09-11 15:11 | XMS_ITS | Continuity of Care Document ---
Author Name Unknown Organization [facility] Address [address] [place] [address]- Care Team Providers Care Legal Director Name Role Phone Etienne SUMMERS, Foster Armstrong Primary Care Physician [id number] Date(s[facility] 04/22/23 - 05/22/23 [facility] [address] [place] [address]- Allergies, Adverse Reactions, Alerts No Known Allergies [...] By Mouth, 3 times a day, # 270 tablet, 3 Refills, Maintenance, 04/15/23 7:47:00 EDT, Tablet, [facility]/pharmacy #[id number], Partial fill upon patient request if the prescription is for a schedule II opioid drug., 1 tablet By Mouth 3 times a day, 172.72... Start Date: 04/15/23 Status: Ordered Cymbalta 60 mg oral enteric [...] Refills, Maintenance, 09/05/22 12:31:00 EDT, ER Tablet, [facility]/pharmacy #[id number], Partial fill upon patient request [...] 360 tablet, 3 Refills, Maintenance, 04/28/23 11:54:00EDT, [facility]/pharmacy #[id number], Partial fill upon patient request if the prescription is for a schedule IIopioid drug., 172.72, cm, 04/28/23 10:32:00 EDT, He... Start Date: 04/28/23 Status: Ordered Vital-D By Mouth, Daily, 0 [...] Team Personnel Name: Armani Reid DO Position: [facility] Renal MD Member Role: Lifetime Consulting Physician Address: Address: [address] [place] [address] [address] [facility] [place] [address]- Name: Foster Clifton MD Position: [facility] General Pediatrics MD Member Role: PCP Address: Address: [address] [place] [address]- Care Team Related Persons Name: LORENA HARRISON Address: home [address] [place] [address] Name: LAYNE TREADWELL Address: home [address] [place] [address]
--- OUTSIDE RECORDS SUMMARY | 2023-09-11 15:11 | XMS_ITS | Continuity of Care Document ---
Author Name Unknown Organization [facility] Address [address] [facility], [address] Floor, [address] [place] [id number]- Care Team Providers Care Distribution Center Assistant Name Role Phone Etienne SUMMERS, Foster Armstrong Primary Care Physician Encounter [facility] [place] Date(s): 11/13/22 - 12/13/22 [facility] [address], [address], [address] [place] [address]- Allergies, Adverse Reactions, Alerts No Known Allergies [...] 04/16/22 12:33:00 EDT, Route to Pharmacy Electronically, [facility]/pharmacy #[id number], Partial fill upon patient request if the prescription is for a schedule II... Start Date: 04/16/22 Status: Ordered amLODIPine 2.5 mg oral tablet 2.5 mg, [...] Refills, Maintenance, 09/05/22 12:31:00 EDT, ER Tablet, [facility]/pharmacy #[id number], Partial fill upon patient request if [...] Team Personnel Name: Armani Reid DO Position: [facility] Renal MD Member Role: Lifetime Consulting Physician Address: Address: [address] [place] [address] [address] [facility] [place] [address]- Name: Foster Clifton MD Position: [facility] General Pediatrics MD Member Role: PCP Address: Address: [address] [place] [address] [address] [place] [address]- Care Team Related Persons Name: LORENA HARRISON Address: home [address] [place] [address] Name: LAYNE TREADWELL Address: home [address] [place] [address]
--- OUTSIDE RECORDS SUMMARY | 2023-09-11 15:11 | XMS_ITS | Continuity of Care Document ---
Author Name Unknown Organization [facility] Eric Lynch Gene Address [address] [place] [id number]- Care Team Providers Care Legal Secretary Name Role Phone Erik Kim DO Primary Care Physician Encounter [facility] [place] Date(s): 07/03/23 - 07/10/23 [facility] Adult [address] [place] [address]- Encounter Diagnosis Medicare annual wellness visit, subsequent(Discharge Diagnosis) - 07/02/23 Essential hypertension(Discharge Diagnosis) - 07/02/23 Osteoarthritis of both knees(Discharge Diagnosis) - 07/02/23 Obstructive sleep apnea on CPAP(Discharge Diagnosis) - 07/02/23 Resting tremor(Discharge Diagnosis) - 07/02/23 Severe obesity(Discharge Diagnosis) - 07/02/23 Urinary incontinence, mixed(Discharge Diagnosis) - 07/03/23 Morbid Obesity(Discharge Diagnosis) - 07/03/23 GERD - Gastro-esophageal reflux disease(Discharge Diagnosis) - 07/03/23 Chronic rhinosinusitis(Discharge Diagnosis) - 07/03/23 AF (paroxysmal atrial fibrillation)(Discharge Diagnosis) - 07/03/23 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) - 07/03/23 Borderline personality disorder(Discharge Diagnosis) - 07/03/23 Anemia(Discharge Diagnosis) - 07/03/23 Diabetes type 2, controlled(Discharge Diagnosis) - 07/03/23 Martinez esophagus(Discharge Diagnosis) - 07/03/23 Type 2 diabetes mellitus with peripheral neuropathy(Discharge Diagnosis) - 07/03/23 Attending Physician: Erik Kim DO Allergies, Adverse Reactions, Alerts Substance Reaction Severity Status Myrbetriq Hallucinations Active Immunizations Given and Recorded Vaccine Date Status Refusal Reason Influenza Virus Vaccine (oldterm) 1 08/06/22 Recor ded Influenza Virus Vaccine (oldterm) 08/09/20 Recorde d Influenza Virus Vaccine (oldterm) 07/05/19 Recorde d Influenza Virus Vaccine (oldterm) 2 08/08/18 Recor ded Influenza Virus Vaccine (oldterm) 3 08/02/16 Recor ded Influenza Virus Vaccine (oldterm) 4 08/07/15 Recor ded Influenza Virus Vaccine (oldterm) 07/22/14 Recorde d Influenza Virus Vaccine (oldterm) 08/30/13 Recorde d Influenza Virus Vaccine (oldterm) 5 08/14/12 Recor ded Influenza Virus Vaccine (oldterm) 08/26/11 Recorde d influenza virus vaccine, inactivated 08/06/22 Avery rded influenza virus vaccine, inactivated 08/21/21 Avery rded influenza virus vaccine, inactivated 08/09/20 Avery rded influenza virus vaccine, inactivated 07/05/19 Avery rded influenza virus vaccine, inactivated 08/08/18 Avery rded influenza virus vaccine, inactivated 08/09/17 Avery rded [id number] 12y+ bivalent booster vax 08/06/22 Recorded pneumococcal 13-valent vaccine 6 07/25/22 Recorded pneumococcal 13-valent vaccine 7 12/14/18 Recorded pneumococcal 13-valent vaccine 12/14/18 Recorded pneumococcal 13-valent vaccine 8 06/06/16 Recorded pneumococcal 20-valent conjugate vaccine 07/25/22 Recorded SARS-CoV-2 mRNA ([id number]) vax 03/13/22 Recorded SARS-CoV-2 mRNA (vpnxnsz-qqia-hjkai) vax 9 08/21/21 Recorded SARS-CoV-2 mRNA (bktfrgb-kcfx-zjouf) vax 10 01/13/21 Recorded SARS-CoV-2 (COVID-19) mRNA BNT-162b2 vac 09/03/21 Recorded SARS-CoV-2 (COVID-19) Ad26 vaccine 01/13/21 Record ed zoster vaccine, inactivated 03/13/20 Recorded zoster vaccine, inactivated 12/09/19 Recorded Zoster Vaccine Live 11 12/09/19 Recorded Zoster Vaccine Live 03/13/12 Recorded tetanus/diphtheria/pertussis, acel(Tdap) 10/21/11 Recorded Pneumococcal Vaccine (oldterm) 11/08/06 Given pneumococcal 23-valent vaccine 12 11/08/06 Recorde d 1Result Comment: Unit: Unknown Route: Intramuscular Hand [place] S[place]: Sanofi Pasteur 2Result Comment: Route: Intramuscular Hand Wood Sander: Sanofi Pasteur 3Result Comment: Unit: Unknown 4Result Comment: Unit: Unknown 5Result Comment: Unit: Unknown 6Result Comment: Unit: Unknown Route: Intramuscular Hand [place] S[place]: Pfizer 7Result Comment: Unit: Unknown Route: Intramuscular Hand Wood Sander: Wyeth 8Result Comment: Unit: Unknown 9Result Comment: Route: Intramuscular Hand [place] Sander: Sanofi Pasteur 10Result Comment: Unit: Unknown Route: Intramuscular Hand Wood Sander: Suleimna 11Result Comment: Route: Intramuscular Hand Wood Sander: GlaxCM SistemiithKline 12Result Comment: Unit: Unknown Medications amLODIPine 2.5 mg oral tablet 2.5 [...] 360 tablet, 3 Refills, Maintenance, 04/28/23 11:54:00EDT, [facility]/pharmacy #[id number], Partial fill upon [...] diabetes mellitus with peripheral neuropathy Confirmed Active Diagnosis Diagnosis Type Effective Dates Health Status Clinical Service Informant Medicare annual wellness visit, subsequent Discharge Diagnosis 07/02/23 Essential hypertension Discharge Diagnosis 07/02/23 Osteoarthritis of both knees Discharge Diagnosis 07/02/23 Obstructive sleep apnea on CPAP Discharge Diagnosis 07/02/23 Resting tremor Discharge Diagnosis 07/02/23 Severe obesity Discharge Diagnosis 07/02/23 Urinary incontinence, mixed Discharge Diagnosis 07/03/23 Morbid Obesity Discharge Diagnosis 07/03/23 GERD - Gastro-esophageal reflux disease Discharge Diagnosis 07/03/23 Chronic rhinosinusitis Discharge Diagnosis 07/03/23 AF (paroxysmal atrial fibrillation) Discharge Diagnosis 07/03/23 Major depression in partial remission Discharge Diagnosis 07/03/23 Borderline personality disorder Discharge Diagnosis 07/03/23 Anemia Discharge Diagnosis 07/03/23 Diabetes type 2, controlled Discharge Diagnosis 07/03/23 Martinez esophagus Discharge Diagnosis 07/03/23 Type 2 diabetes mellitus with peripheral neuropathy Discharge Diagnosis 07/03/23 Vital Signs Most recent to oldest [Reference Range]: 1 Height 171 cm (07/03/23 3:08 PM) Weight 129.1 kg (07/03/23 3:08 PM) Oxygen Saturation [94-100 %] 96 % (07/03/23 3:08 PM) Pulse Rate [55-90 bpm] 90 bpm (07/03/23 3:08 PM) Body Mass Index [18.5-24.99 kg/m2] 44.15 kg/m2 *>HHI* (07/03/23 3:08 PM) Blood Pressure [90-138/55-84 mm Hg] 112/ 75mm Hg (07/03/23 3:08 PM) Temperature [96.8-100.4 DegF] 98.3 DegF (07/03/23 3:08 PM) Blood pressure sites Arm, right (8/24/23 3:08 PM) Social History Social History Type Response Smoking Status Former smoker, quit more than 30 days ago; Other: quit 1973 6 yrs toal 11/13 6; Number of years: 6; Total pack years: 2; entered on: 07/03/23 Sex Note * Franny Solorzano: PERFORM, SIGN, VERIFY Event Display: Patient Education/Instruction Authored Date: [id number] [facility] *BMP So Syed Garciat Clinical Summary Name BEN GARIBAY Age 73 Years 1950 PCP Erik Kim DO PCP Visit Date 07/03/2023 14:51:00 Patient Instructions Health goals for this year Obtain Fasting lab follow up with?? specialists restart the gabapentin Recommend vaccines Tdap , this fall both the flu and the COVID-vaccine. ??There is also a new RSV vaccine??that suggested to get that 2 weeks at least after the COVID and flu. Additional Instructions: Scheduled Appointments?? Future Appointments ?*[facility] ?[address] ?[place],??[place],??[address] ?Phone:??--?Fax:??-- ?Appt. Date:??09/08/2023?9:40 AM ?Scheduled Provider:??Simon SUMMERS , Jenn Davis Follow-Up Instructions ?? With: Address: When: f/u 3 months Comments: multiple Diagnosis Encounter for general adult medical examination without abnormal findings; Essential (primary) hypertension; Mixed incontinence; Morbid (severe) obesity due to excess calories; Bilateral primary osteoarthritis of knee; Chronic rhinitis; Borderline personality disorder; Other specified forms of tremor; Major depressive disorder, single episode, in partial remission; Type 2 diabetes mellitus without complications; Gastro-esophageal reflux disease without esophagitis; Morbid (severe) obesity due to excess calories; Anemia, unspecified; Obstructive sleep apnea (adult) (pediatric); Paroxysmal atrial fibrillation Medications: Please continue your medications until treatment is completed or stopped by your provider. Discuss any questions related to medications with your provider. Medications to Continue with No Changes These medications were not printed or sent to your pharmacy Amlodipine (amLODIPine 2.5 mg oral tablet) 1 tab(s) Oral Daily. Next Dose: apixaban (Eliquis 5 mg oral tablet) 1 tab(s) Oral twice a day. Next Dose: Atorvastatin (atorvastatin 40 mg oral tablet) 1 tab(s) Oral Daily. Next Dose: BuPROpion Oral. Next Dose: Clonazepam (Klonopin Tablet) 0.5 Milligram Oral twice a day as needed Anxiety. Next Dose: Cyanocobalamin (Vitamin B12) Next Dose: Duloxetine (Cymbalta 60 mg oral enteric coated capsule) 2 capsule By Mouth Daily. Next Dose: Durable Medical Equipment (Four-wheeled walker with seat and handbrakes) Dx: Parkinsonism (G20). Refills: 0. Next Dose: Gabapentin (gabapentin 600 mg oral tablet) 1 tablet By Mouth Daily 300mg in AM and 600mg in the PM. Next Dose: Lamotrigine (Lamictal 100 mg oral tablet) See Instructions. 1.5 tablet by mouth twice a day. Next Dose: Lisinopril 10 Milligram Oral Daily. Next Dose: Metformin 500 Milligram Oral twice a day. Next Dose: Metoprolol (metoprolol 25 mg oral tablet) 1 tab(s) Oral twice a day. Next Dose: Omeprazole (omeprazole 40 mg oral enteric coated capsule) 1 capsule Oral Daily. Next Dose: Topiramate (topiramate 50 mg oral tablet) 2 tab(s) Oral twice a day. Refills: 3. Next Dose: No Longer Take the Following Medications Ascorbic Acid (Vitamin C) Oral Daily. Carbidopa-Levodopa (carbidopa-levodopa 25 mg-100 mg oral tablet) 1 tab(s) Oral 3 times a day. Refills: 3. mirabegron (mirabegron 50 mg oral tablet, extended release) 1 tab(s) Oral Daily. do not crush or chew. Refills: 5. Modafinil 100 Milligram Oral Daily in the morning. Multivitamin With Minerals (Vital-D) Oral Daily. Allergy Info:?? Myrbetriq Medications Given This Visit Future Orders ?No future orders Vital Signs Height 171 cm Weight 129.1 kg BMI 44.15 kg/m2 Blood Pressure 112 mm Hg/75 mm Hg Temperature 98.3 DegF Pulse Rate 90 bpm Respiratory Rate 02 Sat Mode of Delivery 96 %/ You can now view a summary of your hospital visit from the comfort of your home through a free online portal called [employer]. [employer] is a website that allows you to securely view your medical information including discharge summary, medications and follow-up visits. ??You can alsosend a secure electronic message to your doctor???s office to request appointments, renew medications or just ask a question. You can enroll at [email or web address] or register during your next office visit. Disclaimer:?? The information provided is of a general nature and is intended to be used in conjunction with the recommendations and advice of your health care practitioner. ??Every effort has been made to ensure that the information provided is accurate and complete at the time it is provided to you however, as your needs change, or, as new ??information becomes available, different or additional instructions may be required. If you have questions, please consult with your primary care provider or pharmacist, as appropriate. ??This information is not intended to serve as substitution for assessment and evaluation by a qualified health care provider. If you do not have a primary care provider, you may find a [facility] provider by calling [facility] [employer] at [phone]. For information about the plan of care including goals and instructions for your diagnosis, please see the patient education orders section of this document. Patient Education Materials?? The content of this educational material or handout may have been modified, supplemented, or adapted from its original content and format to support your individualized medical care. Prevention Guidelines, Women Ages 65 and Older Screening tests and vaccines are an important part of managing your health. Health counseling is essential, too. Below are guidelines for these, for women ages 65 and older. Talk with your healthcareprovider to make sure you???re up to date on what you need. Screening Who needs it How often Type 2 diabetes or prediabetes All adults beginning at age 45 and adults without symptoms at any age who are overweight or obese and have 1 or more additional risk factors for diabetes At least every 3 years Alcohol misuse All women in this age group At routine exams Blood pressure All women in this age group Every 2 years if your blood pressure is less than 120/80 mm Hg; yearly if your systolic blood pressure is 120 to 139 mm Hg, or your diastolic blood pressure reading is 80 to 89 mm Hg Breast cancer All women in this age group Yearly mammogram and clinical breast exam1 Cervical cancer Only women who had abnormal screening results before age 65 Talk with your healthcare provider Chlamydia Women at increased risk for infection At routine exams Colorectal cancer All women in this age group1 Flexible sigmoidoscopy every 5 years, or colonoscopy every 10 years, or double- contrast barium enema every 5 years; yearly fecal occult blood test or fecal immunochemical test; or a stool DNA test asoften as your healthcare provider advises; talk with your healthcare provider about which tests arebest for you Depression All women in this age group At routine exams Gonorrhea Sexually active women at increased risk for infection At routine exams Hepatitis C Anyone at increased risk; 1 time for those born between 1945 and 1964 At routine exams High cholesterol or triglycerides All women in this age group who are at risk for coronary artery disease At least every 5 years HIV Women at increased risk for infection ??? talk with your healthcare provider At routine exams Lung cancer Adults age 55 to 80 who have smoked Yearly screening in smokers with 30 pack-year history of smoking or who quit within 15 years Obesity All women in this age group At routine exams Osteoporosis All women in this age group Bone density test at age 65, then follow-up as advised by your healthcare provider Syphilis Women at increased risk for infection ??? talk with your healthcare provider At routine exams Thyroid-Stimulating Hormone (TSH) All women in this age group Every 5 years Tuberculosis Women at increased risk for infection ??? talk with your healthcare provider Ask your healthcare provider Vision All women in this age group Every 1 to 2 years; if you have a chronic health condition, ask your healthcare provider if you need exams more often Vaccine Who needs it How often Chickenpox (varicella) All women in this age group who have no record of this infection or vaccine 2 doses; second dose should be given at least 4 weeks after the first dose Hepatitis A Women at increased risk for infection ??? talk with your healthcare provider 2 doses given 6 months apart Hepatitis B Women at increased risk for infection ??? talk with your healthcare provider 3 doses over 6 months; second dose should be given 1 month after the first dose; the third dose should be given at least 2 months after the second dose and at least 4 months after the first dose Haemophilus influenza??Type B (HIB) Women at increased risk for infection ??? talk with your healthcare provider 1 to 3 doses Influenza (flu) All women in this age group Once a year Pneumococcal??conjugate vaccine (PCV13)??and pneumococcal polysaccharide??vaccine (PPSV23) All women in this age group 1 dose of each vaccine Tetanus/diphtheria/pertussis (Td/Tdap) booster All women in this age group Td every 10 years, or a one-time dose of Tdap instead of a Td booster after age 18, then Td every 10 years Zoster All women in this age group 1 dose Counseling Who needs it How often Diet and exercise Women who are overweight or obese When diagnosed, and then at routine exams Fall prevention (exercise and vitamin D supplements) All women in this age group At routine exams Sexually transmitted infection prevention Women at increased risk for infection ??? talk with your healthcare provider At routine exams Use of daily aspirin Women ages 55 and up in this age group who are at risk for cardiovascular health problems such as stroke When your risk is known Use of tobacco and the health effects it can cause All women in this age group Every exam 1American [employer] ?? 3315-9151 [employer]. [address] [place] [address]. All rights reserved. This information is not intended as a substitute for professional medical care. Always follow your healthcare professional's instructions. * [place]: PERFORM, SIGN, VERIFY Event Display: Patient Education/Instruction Authored Date: [id number] [facility] *BMP So Syed Ram Clinical Summary Name BEN GARIBAY Age 73 Years 1950 PCP Erik Kim DO PCP Visit Date 07/03/2023 14:51:00 Patient Instructions Health goals for this year Obtain Fasting lab follow up with?? specialists restart the gabapentin Recommend vaccines Tdap , this fall both the flu and the COVID-vaccine. ??There is also a new RSV vaccine??that suggested to get that 2 weeks at least after the COVID and flu. Additional Instructions: Scheduled Appointments?? Future Appointments ?*[facility] ?[address] ?[place],??[place],??[address] ?Phone:??--?Fax:??-- ?Appt. Date:??09/08/2023?9:40 AM ?Scheduled Provider:??Simon SUMMERS , Jenn Davis Follow-Up Instructions ?? With: Address: When: f/u 3 months Comments: multiple Diagnosis Encounter for general adult medical examination without abnormal findings; Essential (primary) hypertension; Mixed incontinence; Morbid (severe) obesity due to excess calories; Bilateral primary osteoarthritis of knee; Chronic rhinitis; Borderline personality disorder; Other specified forms of tremor; Major depressive disorder, single episode, in partial remission; Type 2 diabetes mellitus without complications; Gastro-esophageal reflux disease without esophagitis; Morbid (severe) obesity due to excess calories; Anemia, unspecified; Obstructive sleep apnea (adult) (pediatric); Paroxysmal atrial fibrillation Medications: Please continue your medications until treatment is completed or stopped by your provider. Discuss any questions related to medications with your provider. Medications to Continue with No Changes These medications were not printed or sent to your pharmacy Amlodipine (amLODIPine 2.5 mg oral tablet) 1 tab(s) Oral Daily. Next Dose: apixaban (Eliquis 5 mg oral tablet) 1 tab(s) Oral twice a day. Next Dose: Atorvastatin (atorvastatin 40 mg oral tablet) 1 tab(s) Oral Daily. Next Dose: BuPROpion Oral. Next Dose: Clonazepam (Klonopin Tablet) 0.5 Milligram Oral twice a day as needed Anxiety. Next Dose: Cyanocobalamin (Vitamin B12) Next Dose: Duloxetine (Cymbalta 60 mg oral enteric coated capsule) 2 capsule By Mouth Daily. Next Dose: Durable Medical Equipment (Four-wheeled walker with seat and handbrakes) Dx: Parkinsonism (G20). Refills: 0. Next Dose: Gabapentin (gabapentin 600 mg oral tablet) 1 tablet By Mouth Daily 300mg in AM and 600mg in the PM. Next Dose: Lamotrigine (Lamictal 100 mg oral tablet) See Instructions. 1.5 tablet by mouth twice a day. Next Dose: Lisinopril 10 Milligram Oral Daily. Next Dose: Metformin 500 Milligram Oral twice a day. Next Dose: Metoprolol (metoprolol 25 mg oral tablet) 1 tab(s) Oral twice a day. Next Dose: Omeprazole (omeprazole 40 mg oral enteric coated capsule) 1 capsule Oral Daily. Next Dose: Topiramate (topiramate 50 mg oral tablet) 2 tab(s) Oral twice a day. Refills: 3. Next Dose: No Longer Take the Following Medications Ascorbic Acid (Vitamin C) Oral Daily. Carbidopa-Levodopa (carbidopa-levodopa 25 mg-100 mg oral tablet) 1 tab(s) Oral 3 times a day. Refills: 3. mirabegron (mirabegron 50 mg oral tablet, extended release) 1 tab(s) Oral Daily. do not crush or chew. Refills: 5. Modafinil 100 Milligram Oral Daily in the morning. Multivitamin With Minerals (Vital-D) Oral Daily. Allergy Info:?? Myrbetriq Medications Given This Visit Future Orders ?No future orders Vital Signs Height 171 cm Weight 129.1 kg BMI 44.15 kg/m2 Blood Pressure 112 mm Hg/75 mm Hg Temperature 98.3 DegF Pulse Rate 90 bpm Respiratory Rate 02 Sat Mode of Delivery 96 %/ You can now view a summary of your hospital visit from the comfort of your home through a free online portal called [employer]Mobi. [employer] is a website that allows you to securely view your medical information including discharge summary, medications and follow-up visits. ??You can alsosend a secure electronic message to your doctor???s office to request appointments, renew medications or just ask a question. You can enroll at [email or web address] or register during your next office visit. Disclaimer:?? The information provided is of a general nature and is intended to be used in conjunction with the recommendations and advice of your health care practitioner. ??Every effort has been made to ensure that the information provided is accurate and complete at the time it is provided to you however, as your needs change, or, as new ??information becomes available, different or additional instructions may be required. If you have questions, please consult with your primary care provider or pharmacist, as appropriate. ??This information is not intended to serve as substitution for assessment and evaluation by a qualified health care provider. If you do not have a primary care provider, you may find a [facility] provider by calling [facility] [employer] at [phone]. For information about the plan of care including goals and instructions for your diagnosis, please see the patient education orders section of this document. Patient Education Materials?? The content of this educational material or handout may have been modified, supplemented, or adapted from its original content and format to support your individualized medical care. Prevention Guidelines, Women Ages 65 and Older Screening tests and vaccines are an important part of managing your health. Health counseling is essential, too. Below are guidelines for these, for women ages 65 and older. Talk with your healthcareprovider to make sure you???re up to date on what you need. Screening Who needs it How often Type 2 diabetes or prediabetes All adults beginning at age 45 and adults without symptoms at any age who are overweight or obese and have 1 or more additional risk factors for diabetes At least every 3 years Alcohol misuse All women in this age group At routine exams Blood pressure All women in this age group Every 2 years if your blood pressure is less than 120/80 mm Hg; yearly if your systolic blood pressure is 120 to 139 mm Hg, or your diastolic blood pressure reading is 80 to 89 mm Hg Breast cancer All women in this age group Yearly mammogram and clinical breast exam1 Cervical cancer Only women who had abnormal screening results before age 65 Talk with your healthcare provider Chlamydia Women at increased risk for infection At routine exams Colorectal cancer All women in this age group1 Flexible sigmoidoscopy every 5 years, or colonoscopy every 10 years, or double- contrast barium enema every 5 years; yearly fecal occult blood test or fecal immunochemical test; or a stool DNA test asoften as your healthcare provider advises; talk with your healthcare provider about which tests arebest for you Depression All women in this age group At routine exams Gonorrhea Sexually active women at increased risk for infection At routine exams Hepatitis C Anyone at increased risk; 1 time for those born between 1945 and 1964 At routine exams High cholesterol or triglycerides All women in this age group who are at risk for coronary artery disease At least every 5 years HIV Women at increased risk for infection ??? talk with your healthcare provider At routine exams Lung cancer Adults age 55 to 80 who have smoked Yearly screening in smokers with 30 pack-year history of smoking or who quit within 15 years Obesity All women in this age group At routine exams Osteoporosis All women in this age group Bone density test at age 65, then follow-up as advised by your healthcare provider Syphilis Women at increased risk for infection ??? talk with your healthcare provider At routine exams Thyroid-Stimulating Hormone (TSH) All women in this age group Every 5 years Tuberculosis Women at increased risk for infection ??? talk with your healthcare provider Ask your healthcare provider Vision All women in this age group Every 1 to 2 years; if you have a chronic health condition, ask your healthcare provider if you need exams more often Vaccine Who needs it How often Chickenpox (varicella) All women in this age group who have no record of this infection or vaccine 2 doses; second dose should be given at least 4 weeks after the first dose Hepatitis A Women at increased risk for infection ??? talk with your healthcare provider 2 doses given 6 months apart Hepatitis B Women at increased risk for infection ??? talk with your healthcare provider 3 doses over 6 months; second dose should be given 1 month after the first dose; the third dose should be given at least 2 months after the second dose and at least 4 months after the first dose Haemophilus influenza??Type B (HIB) Women at increased risk for infection ??? talk with your healthcare provider 1 to 3 doses Influenza (flu) All women in this age group Once a year Pneumococcal??conjugate vaccine (PCV13)??and pneumococcal polysaccharide??vaccine (PPSV23) All women in this age group 1 dose of each vaccine Tetanus/diphtheria/pertussis (Td/Tdap) booster All women in this age group Td every 10 years, or a one-time dose of Tdap instead of a Td booster after age 18, then Td every 10 years Zoster All women in this age group 1 dose Counseling Who needs it How often Diet and exercise Women who are overweight or obese When diagnosed, and then at routine exams Fall prevention (exercise and vitamin D supplements) All women in this age group At routine exams Sexually transmitted infection prevention Women at increased risk for infection ??? talk with your healthcare provider At routine exams Use of daily aspirin Women ages 55 and up in this age group who are at risk for cardiovascular health problems such as stroke When your risk is known Use of tobacco and the health effects it can cause All women in this age group Every exam 1American Cancer Society ?? 1722-3590 [employer]. [address] [place] [address] 20122. All rights reserved. This information is not intended as a substitute for professional medical care. Always follow your healthcare professional's instructions. Patient Care team information Care Team Personnel Name: Armani Reid DO Position: [facility] Renal MD Member Role: Lifetime Consulting Physician Address: Address: [address] [place] [address] [address] [facility] [place] [address]- Name: Erik Kim DO Position: [facility] Physician - Primary Care Member Role: PCP Address: Address: [address] [place] [address]- [place] Care Team Related Persons Name: LORENA HARRISON Address: home [address] [place] [address] Name: LAYNE TREADWELL Address: home [address] [place] [address]
--- OUTSIDE RECORDS SUMMARY | 2023-09-11 15:11 | XMS_ITS | Continuity of Care Document ---
Author Name Unknown Organization [facility] Address Unknown Care Team Providers Care Machine Operator Farmworker Name Role Phone Etienne SUMMERS, Foster Armstrong Primary Care Physician [phone] Encounter [facility] [facility] [id number] Date(s): 03/25/22 - 04/24/22 [facility] Attending Physician: Amna Darling Admitting Physician: Amna Darling Referring Physician: Amna Darling Allergies, Adverse Reactions, Alerts No Known Allergies [...] 12:33:00 EDT, Route to Pharmacy Electronically, [facility]/pharmacy #[id number], Partial fill upon patient request if the [...]
--- OUTSIDE RECORDS SUMMARY | 2023-09-11 15:11 | XMS_ITS | Continuity of Care Document ---
Author Name Unknown Organization [facility] Address [address] [facility], 3r d Floor, [address] [place] [address]- Care Team Providers Care Machine Operator Helper Name Role Phone Erik Kim DO Primary Care Physician Encounter [facility] Date(s): 07/17/23 - 08/16/23 [facility] [address], 3rd Floor, [address] [place] [address] Allergies, Adverse Reactions, Alerts Substance Reaction Severity [...] influenza virus vaccine, inactivated 08/09/17 Avery rded [id number] 12y+ bivalent booster vax 08/06/22 Recorded pneumococcal 13-valent vaccine 6 07/25/22 Recorded pneumococcal 13-valent vaccine 7 12/14/18 Recorded pneumococcal 13-valent vaccine 12/14/18 Recorded pneumococcal 13-valent vaccine 8 06/06/16 Recorded pneumococcal 20-valent conjugate vaccine 07/25/22 Recorded SARS-CoV-2 mRNA (uhrxjbo-tzjh-deodj) vax 03/13/22 Recorded SARS-CoV-2 mRNA (ktbwhew-lqhk-aldrb) vax 9 08/21/21 Recorded SARS-CoV-2 mRNA (anqpvjz-pfrd-hmdrk) vax 10 01/13/21 Recorded SARS-CoV-2 (COVID-19) mRNA BNT-162b2 vac 09/03/21 Recorded SARS-CoV-2 (COVID-19) Ad26 vaccine 01/13/21 Record ed zoster vaccine, inactivated 03/13/20 Recorded zoster vaccine, inactivated 12/09/19 Recorded Zoster Vaccine Live 11 12/09/19 Recorded Zoster Vaccine Live 03/13/12 Recorded tetanus/diphtheria/pertussis, acel(Tdap) 10/21/11 Recorded Pneumococcal Vaccine (oldterm) 11/08/06 Given pneumococcal 23-valent vaccine 12 11/08/06 Recorde d 1Result Comment: Unit: Unknown Route: Intramuscular Grinder Machine Setter: Sanofi Pasteur 2Result Comment: Route: Intramuscular Grinder Machine Setter: Sanofi Pasteur 3Result Comment: Unit: Unknown 4Result Comment: Unit: Unknown 5Result Comment: Unit: Unknown 6Result Comment: Unit: Unknown Route: Intramuscular Grinder Machine Setter: Pfizer 7Result Comment: Unit: Unknown Route: Intramuscular Grinder Machine Setter: WyTranquilMed 8Result Comment: Unit: Unknown 9Result Comment: Route: Intramuscular Grinder Machine Setter: Sanofi Pasteur 10Result Comment: Unit: Unknown Route: Intramuscular Grinder Machine Setter: Suleiman 11Result Comment: Route: Intramuscular Grinder Machine Setter: GlaxReologica Instruments 12Result Comment: Unit: Unknown Medications amLODIPine 2.5 [...] Capsule Start Date: 10/20/12 Status: Ordered topiramate 100 mg oral tablet 1.5 tablet = 150 mg, By Mouth, 2 times a day, # 90 tablet, 3 Refills, Maintenance, 07/21/23 12:40:00 EDT, [facility]/pharmacy #[id number], Partial fill upon patient request if the prescription is for a schedule II opioid drug., 171, cm, 07/03/23 15:08:00 EDT, .. Start Date: 07/21/23 Status: Ordered Vitamin B12 0 Refills, Maintenance, [...] pack years: 2; entered on: 07/03/23 Sex Patient Care team information Care Team Personnel Name: Armani Reid DO Position: [facility] Renal MD Member Role: Lifetime Consulting Physician Address: Address: [address] [place] [address] [address] [facility] [place], [place] [address] Name: Erik Kim DO Position: [facility] Physician - Primary Care Member Role: PCP Address: Address: [address] [place] [address]- Care Team Related Persons Name: LORENA HARRISON Address: home [address] [place] [address] Name: LAYNE TREADWELL Address: home [address] [place] [address]
--- OUTSIDE RECORDS SUMMARY | 2023-09-11 15:11 | XMS_ITS | Continuity of Care Document ---
Author Name Unknown Organization [facility] Address [address] [facility], 3r d Floor, [address] [place] [address]- Care Team Providers Care Professor Sculpture Name Role Phone Etienne SUMMERS, Foster Armstrong Primary Care Physician Encounter [facility] [place] Date(s): 01/16/23 - 02/15/23 [facility] [address], 3[address] Floor, [address] [place] [id number] Allergies, Adverse Reactions, Alerts No Known Allergies [...] 3 Refills, Maintenance, 01/15/23 15:27:00 EST, Tablet, [facility]/pharmacy #[id number], Partial fill upon patient request if [...] Refills, Maintenance, 09/05/22 12:31:00 EDT, ER Tablet, [facility]/pharmacy #[id number], Partial fill upon patient request if [...] Team Personnel Name: Armani Reid DO Position: [facility] Renal MD Member Role: Lifetime Consulting Physician Address: Address: [address] [place] [address] [address] [facility] [place] [address]- Name: Foster Clifton MD Position: [facility] General Pediatrics MD Member Role: PCP Address: Address: [facility] [address] [place] [address]- Care Team Related Persons Name: LORENA HARRISON Address: [address] [place] [address] Name: LAYNE TREADWELL Address: home [address] [place] [address]
--- OUTSIDE RECORDS SUMMARY | 2023-09-11 15:11 | XMS_ITS | Continuity of Care Document ---
Author Name Unknown Organization [facility] Address [address], [address] Floor, [address] [place] [address]- Care Team Providers Care Manager Hair Name Role Phone Etienne SUMMERS, Foster Armstrong Primary Care Physician [phone] Encounter [facility] [place] Date(s): 04/14/23 - 05/14/23 [facility] [address], 3[address] Floor, [address] [place] [address]- Allergies, Adverse Reactions, Alerts No Known Allergies [...] 3 Refills, Maintenance, 04/15/23 7:47:00 EDT, Tablet, [facility]/pharmacy #[id number], Partial fill upon patient request [...] Refills, Maintenance, 09/05/22 12:31:00 EDT, ER Tablet, [facility]/pharmacy #[id number], Partial fill upon patient request [...] 360 tablet, 3 Refills, Maintenance, 04/28/23 11:54:00EDT, [facility]/pharmacy #[id number], Partial fill upon patient request [...] Team Personnel Name: Armani Reid DO Position: [facility] Renal MD Member Role: Lifetime Consulting Physician Address: Address: [address] [place] [address] [address] [facility] [place] [address]- Name: Foster Clifton MD Position: [facility] General Pediatrics MD Member Role: PCP Address: Address: [address] [facility] [address] [place] [address]- Care Team Related Persons Name: LORENA HARRISON Address: home [address] [place] [address] Name: LAYNE TREADWELL Address: home [address] [place] [address]
--- OUTSIDE RECORDS SUMMARY | 2023-09-11 15:11 | XMS_ITS | Continuity of Care Document ---
Author Name Unknown Organization [facility] Natebatsheva Molina nAdvanced Catheter [facility] Address [address] [facility], [address] [place] [address]- Care Team Providers Care Recording Studio Internship Name Role Phone Erik Kim DO Primary Care Physician Encounter [facility] Date(s): 05/06/23 - 08/01/23 [facility] [place] [address] [facility], [address] [place] [address]- Attending Physician: Jenn Montes MD Admitting Physician: Jenn Montes MD Referring Physician: Foster Clifton MD Allergies, Adverse Reactions, Alerts Substance Reaction Severity Status Lisatrfloresita Hallucinations Active Immunizations Given and Recorded Vaccine [...] influenza virus vaccine, inactivated 08/09/17 Avery rded [id number] 12y+ bivalent booster vax 08/06/22 Recorded pneumococcal 13-valent vaccine 6 07/25/22 Recorded pneumococcal 13-valent vaccine 7 12/14/18 Recorded pneumococcal 13-valent vaccine 12/14/18 Recorded pneumococcal 13-valent vaccine 8 06/06/16 Recorded pneumococcal 20-valent conjugate vaccine 07/25/22 Recorded SARS-CoV-2 mRNA (thctbxu-fype-jugfk) vax 03/13/22 Recorded SARS-CoV-2 mRNA (eslbxby-vhnq-nvlwz) vax 9 08/21/21 Recorded SARS-CoV-2 mRNA (urzjyqo-gkuq-woqce) vax 10 01/13/21 Recorded SARS-CoV-2 (COVID-19) mRNA BNT-162b2 vac 09/03/21 Recorded SARS-CoV-2 (COVID-19) Ad26 vaccine 01/13/21 Record ed zoster vaccine, inactivated 03/13/20 Recorded zoster vaccine, inactivated 12/09/19 Recorded Zoster Vaccine Live 11 12/09/19 Recorded Zoster Vaccine Live 03/13/12 Recorded tetanus/diphtheria/pertussis, acel(Tdap) 10/21/11 Recorded Pneumococcal Vaccine (oldterm) 11/08/06 Given pneumococcal 23-valent vaccine 12 11/08/06 Recorde d 1Result Comment: Unit: Unknown Route: Intramuscular Hog Scalder: Sanofi Pasteur 2Result Comment: Route: Intramuscular Hog Scalder: Sanofi Pasteur 3Result Comment: Unit: Unknown 4Result Comment: Unit: Unknown 5Result Comment: Unit: Unknown 6Result Comment: Unit: Unknown Route: Intramuscular Hog Scalder: RealMassive 7Result Comment: Unit: Unknown Route: Intramuscular Hog Scalder: Frock Advisor 8Result Comment: Unit: Unknown 9Result Comment: Route: Intramuscular Hog Scalder: Sanofi Pasteur 10Result Comment: Unit: Unknown Route: Intramuscular Hog Scalder: [employer] 11Result Comment: Route: Intramuscular Hog Scalder: Parenthoods 12Result Comment: Unit: Unknown Medications amLODIPine 2.5 [...] tablet, 3 Refills, Maintenance, 07/21/23 12:40:00 EDT, [facility]/pharmacy #[id number], Partial fill upon patient request if the prescription is for a schedule II opioid drug., 171, cm, 07/03/23 15:08:00 EDT, Judith. Start Date: 07/21/23 Status: Ordered Vitamin B12 [...] Team Personnel Name: Armani Reid DO Position: [facility] Renal MD Member Role: Lifetime Consulting Physician Address: Address: [address] [place] [address] Drive [address] [facility] [place] [address]- Name: Erik Kim DO Position: S Physician - Primary Care Member Role: PCP Address: Address: [address] [place] [address]- Care Team Related Persons Name: LORENA HARRISON Address: [address] [place] [address] Name: LAYNE TREADWELL Address: home [address] [place] [address]
--- OUTSIDE RECORDS SUMMARY | 2023-09-11 15:11 | XMS_ITS | Continuity of Care Document ---
Author Name Unknown Organization [facility] Address [address] [facility], 3r d Floor, [address] [place] [address]- Care Team Providers Care Client Technical Specialist Name Role Phone Etienne SUMMERS, Foster Armstrong Primary Care Physician [place] [facility] [place] Date(s): 04/28/23 - 05/28/23 [facility] [address], 3[address] Floor, [address] [place] [address] Attending Physician: Amna Darling Admitting Physician: Amna Darling Referring Physician: AdmtrAmna Allergies, Adverse Reactions, Alerts No Known Allergies [...] 3 Refills, Maintenance, 04/15/23 7:47:00 EDT, Tablet, [facility]/pharmacy #[id number], Partial fill upon patient request [...] Refills, Maintenance, 09/05/22 12:31:00 EDT, ER Tablet, [facility]/pharmacy #[id number], Partial fill upon patient request [...] tablet, 3 Refills, Maintenance, 04/28/23 11:54:00EDT, [facility]/pharmacy #[id number], Partial fill upon patient request [...] Team Personnel Name: Armani Reid DO Position: [facility] Renal MD Member Role: Lifetime Consulting Physician Address: Address: [address] [place] [address] [address] [facility] [place] [address]- Name: Foster Clifton MD Position: [facility] General Pediatrics MD Member Role: PCP Address: Address: [address] [facility] [address] [place] [address]- Care Team Related Persons Name: LORENA HARRISON Address: home [address] [place] [address] Name: LAYNE TREADWELL Address: home [address] [place] [address]
--- OUTSIDE RECORDS SUMMARY | 2023-09-11 15:11 | XMS_ITS | Continuity of Care Document ---
Author Name Unknown Organization [facility] Address [address] [facility], 3r d Floor, [address] [place] [address]- Care Team Providers Care Internal Controls Specialist Name Role Phone Etienne SUMMERS, Foster Armstrong Primary Care Physician [id number]): [facility] - 02/20/23 [facility] [address], 3[address] Floor, [address] [place] [address] Allergies, Adverse Reactions, Alerts No Known Allergies [...] 3 Refills, Maintenance, 01/15/23 15:27:00 EST, Tablet, [facility]/pharmacy #[id number], Partial fill upon patient [...] 09/05/22 12:31:00 EDT, ER Tablet, [facility]/pharmacy #[id number], Partial fill upon patient [...] Team Personnel Name: Armani Reid DO Position: [facility] Renal MD Member Role: Lifetime Consulting Physician Address: Address: [address] [place] [address] [address] [facility] [place] [address]- Name: Foster Clifton MD Position: [facility] General Pediatrics MD Member Role: PCP Address: Address: [address] [facility] [address] [place] [address]- Care Team Related Persons Name: LORENA HARRISON Address: [address] [place] [address] Name: LOEWUS, LAYNE Address: home [address] [place] [address]
--- OUTSIDE RECORDS SUMMARY | 2023-09-11 15:11 | XMS_ITS | Continuity of Care Document ---
Author Name Unknown Organization [facility] Address [address] [facility], 3r d Floor, [address] [place] [address]- Care Team Providers Care Aeronautical Engineering Professor Name Role Phone Etienne SUMMERS, Foster Armstrong Primary Care Physician [phone] Encounter [facility] Date(s): 03/11/23 - 04/10/23 [facility] [address], 3[address] Floor, [address] [place] [id number] Allergies, Adverse Reactions, Alerts No Known [...] 3 Refills, Maintenance, 01/15/23 15:27:00 EST, Tablet, [facility]/pharmacy #[id number], Partial fill upon patient request if the prescription is for a schedule II opioid drug., 1 tablet By Mouth 3 times a day, 172.72... Start Date: 3/8/23 Status: Ordered Cymbalta 60 mg oral enteric [...] Refills, Maintenance, 09/05/22 12:31:00 EDT, ER Tablet, [facility]/pharmacy #[id number], Partial fill upon patient request if [...] Team Personnel Name: Armani Reid DO Position: [facility] Renal MD Member Role: Lifetime Consulting Physician Address: Address: [address] [place] [address] [address] [facility] [place] [address]- Name: Foster Clifton MD Position: [facility] General Pediatrics MD Member Role: PCP Address: Address: [facility] [address] [place] [address]- Care Team Related Persons Name: LORENA HARRISON Address: [address] [place] [address] Name: LAYNE TREADWELL Address: home [address] [place] [address]
--- OUTSIDE RECORDS SUMMARY | 2023-09-11 15:11 | XMS_ITS | Continuity of Care Document ---
Author Name Unknown Organization [facility] Address Unknown Care Team Providers Care Syrup Blender Name Role Phone Foster Clifton MD Primary Care Physician En[place] [facility] [place] [place] Date(s): 01/08/22 - 03/20/22 [facility] Attending Physician: Frida Nevarez Admitting Physician: Frida Nevarez Referring Physician: Foster Clifton MD Allergies, Adverse Reactions, Alerts No Known Allergies Immunizations Given and Recorded Vaccine Date Status Refusal Reason Pneumococcal Vaccine (oldterm) 11/08/06 Given Medications Abilify 5 mg oral tablet 1.5 tablet = 7.5 mg, By Mouth, Daily, 0 Refills, Maintenance, 05/30/14 11:15:37 Start Date: 05/30/14 Status: Ordered BuPROpion By Mouth, 0 Refills, [...]
--- OUTSIDE RECORDS SUMMARY | 2023-09-11 15:11 | XMS_ITS | Continuity of Care Document ---
Author Name Unknown [facility] Address [address] [place] [address], [address] [place] [address]- Care Team Providers Care Flag Signaler Name Role Phone Etienne SUMMERS, Foster Armstrong Primary Care Physician [id number] Date(s): 09/06/22 - 10/06/22 [facility] Natebatsheva [facility] [address] [facility], [address] [place] [address]- Allergies, Adverse Reactions, Alerts No Known Allergies [...] 04/16/22 12:33:00 EDT, Route to Pharmacy Electronically, [facility]/pharmacy #[id number], Partial fill upon patient request if the [...] Refills, Maintenance, 09/05/22 12:31:00 EDT, ER Tablet, [facility]/pharmacy #[id number], Partial fill upon patient request [...] Member Role: Lifetime Consulting Physician Address: Address: [address] [place] [address] [address] [facility] [place], [place] [address] Name: Foster Clifton MD Position: [facility] General Pediatrics MD Member Role: PCP Address: Address: [address] [place] [address]- Care Team Related Persons Name: LORENA HARRISON Address: [address] [place] [address] Name: LAYNE TREADWELL Address: home [address] [place] [address]
--- OUTSIDE RECORDS SUMMARY | 2023-09-11 15:11 | XMS_ITS | Continuity of Care Document ---
Author Name Unknown Organization [facility] Address [address] [place] [address]- Care Team Providers Care Bag Filler Name Role Phone Erik Kim DO Primary Care Physician [phone] Encounter [facility] [place] Date(s): 03/25/23 - 07/19/[address] [address]- Encounter Diagnosis Tremor, unspecified(Final) - Discharge Disposition: A-D/C Home Attending Physician: Erik Canales MD Admitting Physician: Erik Canales MD Referring Physician: Erik Canales MD Allergies, Adverse Reactions, Alerts Substance Reaction Severity Status Peggy Hallucinations Active Immunizations Given and Recorded Vaccine [...] influenza virus vaccine, inactivated 08/09/17 Avery rded [id number] 12y+ bivalent booster vax 08/06/22 Recorded pneumococcal 13-valent vaccine 6 07/25/22 Recorded pneumococcal 13-valent vaccine 7 12/14/18 Recorded pneumococcal 13-valent vaccine 12/14/18 Recorded pneumococcal 13-valent vaccine 8 06/06/16 Recorded pneumococcal 20-valent conjugate vaccine 07/25/22 Recorded SARS-CoV-2 mRNA (wmlvdva-wxjy-wlntd) vax 03/13/22 Recorded SARS-CoV-2 mRNA (fkqdejs-jens-wbvwf) vax 9 08/21/21 Recorded SARS-CoV-2 mRNA (gxhvtjx-armk-bpntp) vax 10 01/13/21 Recorded SARS-CoV-2 (COVID-19) mRNA BNT-162b2 vac 09/03/21 Recorded SARS-CoV-2 (COVID-19) Ad26 vaccine 01/13/21 Record ed zoster vaccine, inactivated 03/13/20 Recorded zoster vaccine, inactivated 12/09/19 Recorded Zoster Vaccine Live 11 12/09/19 Recorded Zoster Vaccine Live 03/13/12 Recorded tetanus/diphtheria/pertussis, acel(Tdap) 10/21/11 Recorded Pneumococcal Vaccine (oldterm) 11/08/06 Given pneumococcal 23-valent vaccine 12 11/08/06 Recorde d 1Result Comment: Unit: Unknown Route: Intramuscular Bar Assistant: Sanofi Pasteur 2Result Comment: Route: Intramuscular Bar Assistant: Sanofi Pasteur 3Result Comment: Unit: Unknown 4Result Comment: Unit: Unknown 5Result Comment: Unit: Unknown 6Result Comment: Unit: Unknown Route: Intramuscular Bar Assistant: Pfizer 7Result Comment: Unit: Unknown Route: Intramuscular Bar Assistant: WyBookeen 8Result Comment: Unit: Unknown 9Result Comment: Route: Intramuscular Bar Assistant: Sanofi Pasteur 10Result Comment: Unit: Unknown Route: Intramuscular Bar Assistant: Our[employer]Mate 11Result Comment: Route: Intramuscular Bar Assistant: BeSmart 12Result Comment: Unit: Unknown Medications amLODIPine 2.5 [...] 360 tablet, 3 Refills, Maintenance, 04/28/23 11:54:00EDT, [facility]/pharmacy #[id number], Partial fill upon patient request [...] Team Personnel Name: Armani Reid DO Position: [facility] Renal MD Member Role: Lifetime Consulting Physician Address: Address: [address] [facility] [place] [address]- Name: Erik Kim DO Position: S Physician - Primary Care Member Role: PCP Address: Address: [address] [place] [address]- Care Team Related Persons Name: LORENA HARRISON Address: [address] [place] [address] Name: LAYNE TREADWELL Address: [address] [place] [address]
--- OUTSIDE RECORDS SUMMARY | 2023-09-11 15:11 | XMS_ITS | Continuity of Care Document ---
Author Name Unknown Organization [facility] Address Unknown Care Team Providers Care Ladies Locker Room Attendant Name Role Phone Etienne SUMMERS, Foster Armstrong Primary Care Physician [phone] [place] [facility] Date(s): 05/22/22 - 06/21/22 [facility] Allergies, Adverse Reactions, Alerts No Known Allergies [...] 04/16/22 12:33:00 EDT, Route to Pharmacy Electronically, [facility]/pharmacy #[id number], Partial fill upon patient request if the [...]
--- OUTSIDE RECORDS SUMMARY | 2023-09-11 15:11 | XMS_ITS | Continuity of Care Document ---
Author Name Unknown Organization [facility] Address [address] [place] [address], [address] [place] [address]- Care Team Providers Care Photographic Lithographer Name Role Phone Etienne SUMMERS, Foster Armstrong Primary Care Physician [phone] [id number] Date(s): 09/03/22 - 10/03/22 [facility] [address] [facility], [address] [place] [address]- Attending Physician: Amna Darling Admitting Physician: Amna [...] 12:33:00 EDT, Route to Pharmacy Electronically, [facility]/pharmacy #[id number], Partial fill upon patient request if the [...] Refills, Maintenance, 09/05/22 12:31:00 EDT, ER Tablet, [facility]/pharmacy #[id number], Partial fill upon [...] Care team information Care Team Personnel Name: Amrani Reid DO Position: S Renal MD Member Role: Lifetime Consulting Physician Address: Address: [address] [place] [address] [address] [facility] [place] [address]- [place] Name: Etienne SUMMERS, Foster Armstrong Position: [facility] General Pediatrics MD Member Role: PCP Address: Address: [address] [place] [address]- Care Team Related Persons Name: LORENA HARRISON Address: home [address] [place] [address] Name: LAYNE TREADWELL Address: home [address] [place] [address]
--- OUTSIDE RECORDS SUMMARY | 2023-09-11 15:11 | XMS_ITS | Continuity of Care Document ---
Author Name Unknown Organization [facility] Address [address] [place] [address]- Care Team Providers Care On Line Csr Name Role Phone Foster Clifton MD Primary Care Physician [phone] Encounter [facility] Date(s): 03/25/22 - 04/24/22 [facility] [address] [place] [address]- Allergies, Adverse Reactions, Alerts No Known Allergies [...] 04/16/22 12:33:00 EDT, Route to Pharmacy Electronically, [facility]/pharmacy #[id number], Partial fill upon patient request if the [...]
--- OUTSIDE RECORDS SUMMARY | 2023-09-11 15:11 | XMS_ITS | Continuity of Care Document ---
Author Name Unknown Organization [facility] Address [address] [place] [address]- Care Team Providers Care Artificial Breeding Distributor Name Role Phone Etienne SUMMERS, Foster Armstrong Primary Care Physician [id number] Date(s): 12/25/21 - 01/24/22 [facility] [address] [place] [address]- Allergies, Adverse Reactions, Alerts No Known Allergies [...] opioid drug. Start Date: 01/17/22 Status: Ordered Nuvigil 250 mg oral tablet 1 tablet = 250 mg, By Mouth, Daily, 0 Refills, Maintenance Start Date: 10/20/12 Status: Ordered omeprazole 40 mg oral enteric [...] Effective Dates Status Health Status Inform ant Chronic Pain(Confirmed) 10/20/12 Active Hypertension(Confirmed) 10/20/12 Active Morbid Obesity(Confirmed) Active Sleep apnea(Confirmed) 10/20/12 Active
--- OUTSIDE RECORDS SUMMARY | 2023-09-11 15:11 | XMS_ITS | Continuity of Care Document ---
Author Name Unknown Organization [facility] Address [address] [place] [address]- Care Team Providers Care Swage Toolsetter Name Role Phone Foster Clifton MD Primary Care Physician [facility] [id number] Date(s): 05/29/22 - 06/28/22 [facility] [address] [place] [address]- Attending Physician: Amna Darling Admitting Physician: AdmtrAmna Referring Physician: AdmtrAmna Allergies, Adverse Reactions, Alerts [...] 04/16/22 12:33:00 EDT, Route to Pharmacy Electronically, [facility]/pharmacy #[id number], Partial fill upon patient request if the [...]
--- OUTSIDE RECORDS SUMMARY | 2023-09-11 15:12 | XMS_ITS | Continuity of Care Document ---
Author Name Unknown Organization [facility] Address [address] [place] [address]- Care Team Providers Care Tooling Engineering Tech Name Role Phone Foster Clifton MD Primary Care Physician [phone] [id number] Date(s): 04/04/22 - 06/28/22 [facility] [address] [place] [address]- Attending Physician: Amilcar Sanchez MD Admitting Physician: Amilcar Sanchez MD Referring Physician: Foster Clifton MD Allergies, [...] 04/16/22 12:33:00 EDT, Route to Pharmacy Electronically, [facility]/pharmacy #[id number], Partial fill upon patient request if the [...]
--- OUTSIDE RECORDS SUMMARY | 2023-09-11 15:12 | XMS_ITS | Continuity of Care Document ---
Author Name Unknown Organization [facility] Address [address] [place] [address], 4t [place] [address]- Care Team Providers Care Developer Analyst Name Role Phone Etienne SUMMERS, Foster Armstrong Primary Care Physician [phone] [id number] Date(s): 07/29/22 - 10/03/22 [facility] [address] [facility], [address] [place] [address]- Attending Physician: Regina Wilson MD Admitting Physician: Regina Wilson MD Referring Physician: Regina Wilson MD Allergies, Adverse Reactions, Alerts No Known [...] 04/16/22 12:33:00 EDT, Route to Pharmacy Electronically, [facility]/pharmacy #[id number], Partial fill upon patient request if the [...] Refills, Maintenance, 09/05/22 12:31:00 EDT, ER Tablet, [facility]/pharmacy #[id number], Partial fill upon patient request if [...] Team Personnel Name: Armani Reid DO Position: S Renal MD Member Role: Lifetime Consulting Physician Address: Address: [address] [facility] [place] [address]- [place] Name: Etienne SUMMERS, Foster Armstrong Position: [facility] General Pediatrics MD Member Role: PCP Address: Address: [address] [facility] [address] [place] [address]- Care Team Related Persons Name: LORENA HARRISON Address: home [address] [place] [address] Name: LAYNE TREADWELL Address: home [address] [place] [address]
--- OUTSIDE RECORDS SUMMARY | 2023-09-11 15:12 | XMS_ITS | Continuity of Care Document ---
Author Name Unknown Organization [facility] Address [address] [place] [address]- Care Team Providers Care Order Schedule Clerk Name Role Phone Foster Clifton MD Primary Care Physician [phone] [facility] [id number] Date(s): 04/03/22 - 06/16/22 [facility] [address] [place] [address]- Attending Physician: Miladis Duckworth MD Admitting Physician: Miladis Duckworth MD Referring Physician: Foster Clifton MD Allergies, [...] 04/16/22 12:33:00 EDT, Route to Pharmacy Electronically, [facility]/pharmacy #[id number], Partial fill upon patient request if the [...]
--- OUTSIDE RECORDS SUMMARY | 2023-09-11 15:12 | XMS_ITS | Continuity of Care Document ---
Author Name Unknown Organization [facility] Address [address] [facility], 3[address] d Floor, [address] [place] [address]- Care Team Providers Care Gas Load Dispatcher Name Role Phone Etienne SUMMERS, Foster Armstrong Primary Care Physician En[facility] Date(s): 03/18/23 - 04/17/23 [facility] [address], [address] Floor, [address] [place] [address]- Allergies, Adverse Reactions, Alerts No Known Allergies [...] 3 Refills, Maintenance, 04/15/23 7:47:00 EDT, Tablet, [facility]/pharmacy #[id number], Partial fill upon patient request [...] Refills, Maintenance, 09/05/22 12:31:00 EDT, ER Tablet, [facility]/pharmacy #[id number], Partial fill upon patient request [...] DO Position: [facility] Renal MD Member Role: Lifetime Consulting Physician Address: Address: [address] [place] [address] [address] [facility] [place] [address]- Name: Foster Clifton MD Position: [facility] General Pediatrics MD Member Role: PCP Address: Address: [address] [facility] [address] [place] [address]- Care Team Related Persons Name: LORENA HARRISON Address: [address] [place] [address] Name: LAYNE TREADWELL Address: [address] [place] [address]
--- OUTSIDE RECORDS SUMMARY | 2023-09-11 15:12 | XMS_ITS | Continuity of Care Document ---
Author Name Unknown Organization [facility] Address [address] [place] [address]- Care Team Providers Care Buffet Attendant Name Role Phone Foster Clifton MD Primary Care Physician [phone] [id number] Date(s): 04/11/22 - 05/11/22 [facility] [address] [place] [address]- Allergies, Adverse Reactions, Alerts No Known Allergies [...] 04/16/22 12:33:00 EDT, Route to Pharmacy Electronically, [facility]/pharmacy #[id number], Partial fill upon patient request if the [...]
--- OUTSIDE RECORDS SUMMARY | 2023-09-11 15:12 | XMS_ITS | Continuity of Care Document ---
Author Name Unknown Organization [facility] Address [address] [place] [address]- Care Team Providers Care Intensive Care Specialist Name Role Phone Erik Kim DO Primary Care Physician En[place] [facility] [id number] Date(s): 06/10/23 - 07/10/[address] [address] Attending Physician: Amna Darling Admitting Physician: AdmtrAmna Referring Physician: Admtr, Ar8 Allergies, Adverse Reactions, Alerts Substance Reaction Severity [...] influenza virus vaccine, inactivated 08/09/17 Avery rded [id number] 12y+ bivalent booster vax 08/06/22 Recorded pneumococcal 13-valent vaccine 6 07/25/22 Recorded pneumococcal 13-valent vaccine 7 12/14/18 Recorded pneumococcal 13-valent vaccine 12/14/18 Recorded pneumococcal 13-valent vaccine 8 06/06/16 Recorded pneumococcal 20-valent conjugate vaccine 07/25/22 Recorded SARS-CoV-2 mRNA (ivsoehi-pvwl-hawjx) vax 03/13/22 Recorded SARS-CoV-2 mRNA (hhgshrz-ogzi-fcfup) vax 9 08/21/21 Recorded SARS-CoV-2 mRNA (updrbni-wqzi-fzuid) vax 10 01/13/21 Recorded SARS-CoV-2 (COVID-19) mRNA BNT-162b2 vac 09/03/21 Recorded SARS-CoV-2 (COVID-19) Ad26 vaccine 01/13/21 Record ed zoster vaccine, inactivated 03/13/20 Recorded zoster vaccine, inactivated 12/09/19 Recorded Zoster Vaccine Live 11 12/09/19 Recorded Zoster Vaccine Live 03/13/12 Recorded tetanus/diphtheria/pertussis, acel(Tdap) 10/21/11 Recorded Pneumococcal Vaccine (oldterm) 11/08/06 Given pneumococcal 23-valent vaccine 12 11/08/06 Recorde d 1Result Comment: Unit: Unknown Route: Intramuscular Paint Tinter: Sanofi Pasteur 2Result Comment: Route: Intramuscular Paint Tinter: Sanofi Pasteur 3Result Comment: Unit: Unknown 4Result Comment: Unit: Unknown 5Result Comment: Unit: Unknown 6Result Comment: Unit: Unknown Route: Intramuscular Paint Tinter: Pfizer 7Result Comment: Unit: Unknown Route: Intramuscular Paint Tinter: [employer] 8Result Comment: Unit: Unknown 9Result Comment: Route: Intramuscular Paint Tinter: Sanofi Pasteur 10Result Comment: Unit: Unknown Route: Intramuscular Paint Tinter: [email or web address] 11Result Comment: Route: Intramuscular Paint Tinter: [employer] 12Result Comment: Unit: Unknown Medications amLODIPine 2.5 [...] 360 tablet, 3 Refills, Maintenance, 04/28/23 11:54:00EDT, [facility]/pharmacy #[id number], Partial fill upon [...] Member Role: Lifetime Consulting Physician Address: Address: [address] [place] [address] [address] [facility] [place], [place] [address] Name: Erik Kim DO Position: S Physician - Primary Care Member Role: PCP Address: Address: [address] [place] [address]- Care Team Related Persons Name: LORENA HARRISON Address: [address] [place] [address] Name: LAYNE TREADWELL Address: [address] [place] [address]
--- OUTSIDE RECORDS SUMMARY | 2023-09-11 15:12 | XMS_ITS | Continuity of Care Document ---
Author Name Unknown Organization [facility] Address [address] [facility], 4t [place] [address]- Care Team Providers Care Equipment Cleaner Name Role Phone Etienne SUMMERS, Foster Armstrong Primary Care Physician [place] [facility] 05/28/23 - 06/27/23 [facility] [address] [facility], 4th [place] [address]- Allergies, Adverse Reactions, Alerts No Known Allergies [...] Refills, Maintenance, 04/15/23 7:47:00 EDT, Tablet, [facility]/pharmacy #[id number], Partial fill upon patient request if [...] Maintenance, 09/05/22 12:31:00 EDT, ER Tablet, [facility]/pharmacy #[id number], Partial fill upon patient request if [...] tablet, 3 Refills, Maintenance, 04/28/23 11:54:00EDT, [facility]/pharmacy #[id number], Partial fill upon patient request if [...] Role: Lifetime Consulting Physician Address: Address: [address] [place] [address] [address] [facility] [place] [address]- Name: Foster Clifton MD Position: [facility] General Pediatrics MD Member Role: PCP Address: Address: [address] [facility] [address] [place] [address]- Care Team Related Persons Name: LORENA HARRISON Address: [address] [place] [address] Name: LAYNE TREADWELL Address: [address] [place] [address]
--- OUTSIDE RECORDS SUMMARY | 2023-09-11 15:12 | XMS_ITS | Continuity of Care Document ---
Author Name Unknown Organization [facility] Address Unknown Care Team Providers Care Cutter Head Sharpener Name Role Phone Etienne SUMMERS, Foster Armstrong Primary Care Physician [place] [facility] [place] 05/29/22 - 06/28/22 [facility] Allergies, Adverse Reactions, Alerts No Known [...] 04/16/22 12:33:00 EDT, Route to Pharmacy Electronically, [facility]/pharmacy #[id number], Partial fill upon patient request if the [...]
--- OUTSIDE RECORDS SUMMARY | 2023-09-11 15:12 | XMS_ITS | Continuity of Care Document ---
Author Name Unknown Organization [facility] Address [address] [facility], 3r d Floor, [address] [place] [address]- Care Team Providers Care Pump Runner Name Role Phone Etienne SUMMERS, Foster Armstrong Primary Care Physician En[place] [facility] Date(s): 08/29/22 - 09/28/22 [facility] [address], 3[address] Floor, [address] [place] [address] Attending Physician: Amna Darling Admitting Physician: Amna [...] 04/16/22 12:33:00 EDT, Route to Pharmacy Electronically, [facility]/pharmacy #[id number], Partial fill upon patient request if the [...] Refills, Maintenance, 09/05/22 12:31:00 EDT, ER Tablet, [facility]/pharmacy #[id number], Partial fill upon patient request [...] Member Role: Lifetime Consulting Physician Address: Address: [address] [place] [address] [address] [facility] [place], [place] [address] Name: Etienne SUMMERS, Foster Armstrong Position: [facility] General Pediatrics MD Member Role: PCP Address: Address: [address] [place] [address]- Care Team Related Persons Name: LORENA HARRISON Address: [address] [place] [address] Name: LAYNE TREADWELL Address: home [address] [place] [address]
--- OUTSIDE RECORDS SUMMARY | 2023-09-11 15:12 | XMS_ITS | Continuity of Care Document ---
Author Name Unknown Organization [facility] Address [address] [facility], 3r d Floor, [address] [place] [address]- Care Team Providers Care Foreclosure Specialist Name Role Phone Etienne SUMMERS, Foster Armstrong Primary Care Physician [phone] Encounter [facility] Date(s): 07/05/22 - 08/04/22 [facility] [address], 3[address] Floor, [address] [place] [address]- [place] Allergies, Adverse Reactions, Alerts No Known Allergies [...] Pharmacy Electronically, [facility]/pharmacy #[id number], Partial fill upon patient request if the prescription is for a schedule II... Start Date: 04/16/22 Status: Ordered atorvastatin 40 mg oral tablet [...] drug. Start Date: 07/29/22 Status: Ordered mirabegron 25 mg oral tablet, extended release 1 tablet = 25 mg, By Mouth, Daily, do not crush or chew, # 30 tablet, 5 Refills, Maintenance, 07/29/22 9:42:00 EDT, ER Tablet, [facility]/pharmacy #[id number], Partial fill upon patient request if the prescription is for a schedule II opioid drug., 172.72, cm, .. Start Date: 07/29/22 Status: Ordered Modafinil = 100 mg, By [...] Effective Dates Status Health Status Inform ant Atrial fibrillation(Confirmed) Active Osteoarthritis of both knees(Confirmed) Active Chronic Pain(Confirmed) 10/20/12 Active Rectocele(Confirmed) Active GERD - Gastro-esophageal ref lux disease(Confirmed) Active HTN - Hypertension(Confirmed) Active Hypertension(Confirmed) 10/20/12 Active Fecal incontinence(Confirmed) Active Urinary incontinence, mixed(Confirmed) Active Morbid Obesity(Confirmed) Active Severe obesity(Confirmed) Active Sleep apnea(Confirmed) 10/20/12 Active Social History Social History Type Response Smoking Status Former smoker, quit more than 30 days ago entered on: 07/29/22 Sex Care Team Personnel Name: Etienne SUMMERS, Foster Armstrong Address: [address] [place] [address] [address]
--- OUTSIDE RECORDS SUMMARY | 2023-09-11 15:12 | XMS_ITS | Continuity of Care Document ---
Author Name Unknown Organization [facility] Address Unknown Care Team Providers Care Fire Watchman Name Role Phone Etienne SUMMERS, Foster Armstrong Primary Care Physician [place] [facility] [place] Date(s): 04/15/22 - 05/15/22 [facility] Allergies, Adverse Reactions, Alerts No [...] 04/16/22 12:33:00 EDT, Route to Pharmacy Electronically, [facility]/pharmacy #[id number], Partial fill upon patient request if the [...]
--- OUTSIDE RECORDS SUMMARY | 2023-09-11 15:12 | XMS_ITS | Continuity of Care Document ---
Author Name Unknown Organization [facility] ter Address [address] [place] [address]- Care Team Providers Care Automotive Maintenance Technician Name Role Phone Foster Clifton MD Primary Care Physician [phone] [place] [facility] [place] 06/19/22 - 08/24/[address] [address] Attending Physician: Elsy Martinez MD, V Referring Physician: Elsy Martinez MD, V Allergies, Adverse Reactions, Alerts No Known Allergies [...] 04/16/22 12:33:00 EDT, Route to Pharmacy Electronically, [facility]/pharmacy #[id number], Partial fill upon patient request if the [...] Refills, Maintenance, 07/29/22 9:42:00 EDT, ER Tablet, [facility] [...] on: 07/29/22 Sex Patient Care team information Personnel Name: Etienne SUMMERS, Foster Armstrong Address: Address: [address] [place] [address] [address] [place], [place] [address]
--- OUTSIDE RECORDS SUMMARY | 2023-09-11 15:13 | XMS_ITS | Continuity of Care Document ---
Author Name Unknown Organization [facility] ter Address [address] [place] [address]- Care Team Providers Care Tube Former Operator Name Role Phone Foster Clifton MD Primary Care Physician En[place] [facility] [place] Date(s): 08/29/22 - 12/20/[address] [address] Attending Physician: Elsy Martinez MD, V Referring [...] 12:33:00 EDT, Route to Pharmacy Electronically, [facility]/pharmacy #[id number], Partial fill upon patient request if the [...] Team Personnel Name: Armani Reid DO Position: [facility] Renal MD Member Role: Lifetime Consulting Physician Address: Address: [address] [place] [address] [address] [facility] [place], [place] [address] Name: Foster Clifton MD Position: [facility] General Pediatrics MD Member Role: PCP Address: Address: [address] [place] [address]- Care Team Related Persons Name: LORENA HARRISON Address: [address] [place] [address] Name: LAYNE TREADWELL Address: [address] [place] [address]
--- OUTSIDE RECORDS SUMMARY | 2023-09-11 15:13 | XMS_ITS | Summary of Care ---
Author Name Unknown Organization [facility] Address [address] [place] [address]- Encounter 09/17/16 - 09/17/[address] [address] [facility] Discharge Disposition: Discharged to Home or Self Care Vital Signs No data available for this section Problem List No data available for this section Allergies, Adverse Reactions, Alerts No data available for this section Medications No data available for this section Results No data available for this section Immunizations No data available for this section Procedures No data available for this section Social History No data available for this section Assessment and Plan No data available for this section
--- NOTE | 2023-09-11 16:09 | MHC.CM.PN ---
Pt is transferring to psych unit.
[2023-09-11 16:30] VITALS: BP 119/67; PULSE 92; RESP 18; TEMP 36.2; O2SAT 98
[2023-09-11 17:49] VITALS: BMI 45.5
--- NOTE | 2023-09-11 17:59 | PC.ADMIT ---
Ashley was admitted to on 09/11/23 at 16:15 from [facility] on a CV for the treatment of depression. Prior to admission, she was medically hospitalized after overdosing on Klonopin and Tramadol or Trazodone. She is alert and oriented x4. She was cooperative with admission process. She denies current suicidal and homicidal thoughts and intent. She denies auditory and visual hallucinations. Sharps check was completed by staff. Pt was given opportunity to obtain phone numbers from her cell phone and a copy was placed in the front of the chart. Her thought process appears organized and her affect was blunted. She denies ETOH and substance use and utox was negative. She reports appetite and sleep are okay. She states that she became suicidal due to a disagreement with her siblings about her moving to an assisted living facility. She stated I don't want to go there and I don't want to go back to my house so the only place to go for me was the grave . She is utilizing a walker for ambulation. She was placed on 5 minute checks for safety.
[2023-09-11 18:22] LABS: Creatinine Clr Calc Pharmacy 85.7; Estimated Glomerular Filt Rate > 60
[2023-09-11 19:35] VITALS: BP 149/90; PULSE 82; RESP 18; TEMP 36.9; O2SAT 96
[2023-09-11] MEDS: Topiramate 25 MG TABLET 75 MG PO (20:43)
[2023-09-11] MEDS: metFORMIN HCl 500 MG TABLET PO (20:43)
[2023-09-11] MEDS: Metoprolol Tartrate 25 MG TABLET PO (20:44)
[2023-09-11] MEDS: Gabapentin 600 MG TABLET 300 MG PO (20:44)
[2023-09-11] MEDS: Apixaban 5 MG TABLET PO (20:44)
[2023-09-11] MEDS: clonazePAM 0.5 MG TABLET PO (20:49)
--- NOTE | 2023-09-11 22:55 | PC.NURSE ---
This RN was called into patient room due to patient experiencing bleeding on bilateral big toes. It appears as Right big toe was wrapped previously from med floor. When asking patient what happened, she replied I have been picking. Provider municipal bond trader notified. Areas cleaned and gauze placed and taped in place.
[2023-09-12 00:23] LABS: Glucose, Whole Blood 94 mg/dL (60-115)
[2023-09-12 06:51] LABS: Glucose, Whole Blood 69 mg/dL (60-115)
[2023-09-12 08:00] VITALS: BP 138/86; PULSE 90; RESP 20; TEMP 36.2; O2SAT 92
--- NOTE | 2023-09-12 08:20 | HO.PSYADMNOT ---
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 She was rushed to the emergency room since her family found out that she took an overdose in a suicidal attempt, medically cleared and transferred to the medical unit for medical treatment. Once she was completely medically cleared she was transferring to this facility for psychiatric stabilization. On interview, the patient reported that she carries a diagnosis of borderline personality disorder and major depressive disorder. She stated that she was doing fairly fine and apparently she have had conflicts with her siblings. She had been living in the house that she grew up for more than 20 years and they were thinking of selling the house and moving her to an assisted living facility. Apparently the cystic living facilities extremely expensive she could not pay for it. She stated that she felt disheartened at and she decided to commit suicide in impulsive manner. After taking the overdose of medication she called her siblings and they called 911 and brought her here. While we did the 1st interview, the patient was pleasant, cooperative, future oriented she was no acute internal distress she stated that she was yes fed up with her siblings and over 1 with her financial constraints. She adamantly denies psychotic symptoms, linda and she was able to contract for safety in the facility. Past Psychiatric History: The patient's 1st psychiatric contact was more than 20 years ago when she was diagnosed of borderline personality disorder and she followed DVT treatment. She had been admitted once when she was 51 years old since she tried to commit suicide. She denies substance abuse Medical Evaluation Reviewed: Yes [facility] Medical History Diabetes mellitus Chronic anticoagulation Family History: Apparently her son suffers from depression he tried and to overdose himself a few years ago. 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 Substance History: Denies Trauma History: Denies Diagnostics Vital Signs (24Hr): Vital Signs - 24 hr 09/11/23 16:30 09/11/23 19:35 Temperature 97.2 F 98.5 F Pulse Rate 92 82 Respiratory Rate 18 18 Blood Pressure 119/67 149/90 H Pulse Oximetry 98 96 Oxygen Delivery Method Room Air Room Air BMI result Body Mass Index 45.5 Labs 09/12/23 09:01 Labs: Laboratory Results - last 48 hr 09/11/23 09/11/23 09/12/23 17:53 20:24 06:44 Creatinine 0.84 Estim Creat Clear Calc 85.7 Estimated GFR > 60 POC Glucose 94 69 Meds/Allergies Meds Home Medications Medication Instructions Recorded Confirmed Type amlodipine 2.5 mg tablet 2.5 mg PO DAILY 05/21/22 09/12/23 History apixaban 5 mg tablet (Eliquis) 5 mg PO BID 05/21/22 09/12/23 History atorvastatin 40 mg tablet 40 mg PO DAILY 05/21/22 09/12/23 History blood sugar diagnostic (Robin #10 ea 05/21/22 09/12/23 History Lite Strips) bupropion HCl 300 mg 24 hr tablet, 300 mg PO DAILY 05/21/22 09/12/23 History extended release clonazepam 0.5 mg tablet 0.5 mg PO DAILY PRN Anxiety 05/21/22 09/12/23 History duloxetine 60 mg capsule,delayed 120 mg PO QAM 05/21/22 09/12/23 History release gabapentin 300 mg capsule 300 mg PO DAILY 05/21/22 09/12/23 History lisinopril 40 mg tablet 40 mg PO DAILY 05/21/22 09/12/23 History metoprolol tartrate 25 mg tablet 25 mg PO BID 05/21/22 09/12/23 History omeprazole 40 mg capsule,delayed 40 mg PO DAILY 05/21/22 09/12/23 History release metformin 500 mg tablet 500 mg PO BID 09/08/23 09/12/23 History topiramate 100 mg tablet 75 mg PO BID 09/08/23 09/12/23 History lamotrigine 25 mg tablet (Lamictal) 75 mg PO DAILY 09/12/23 09/12/23 History Allergies Allergies Allergy/AdvReac Type Severity Reaction Status Date / Time No Known Allergies Allergy Verified 09/08/23 12:36 Mental Status Exam Mental Status Exam Patient Appearance: Appropriate Patient Orientation: Person and Situation Level of Consciousness: Awake and Appropriate Patient Behavior: Guarded and Passive Mood Description: Withdrawn Affect Description: Constricted Ability to Follow Directions: Good Speech Pattern: Clear Hallucinations: None Delusions: Not Present Thought Process: Linear Thought Content: positive for [place] and positive for Circumstantial Judgement: Poor Assessment & Plan Assessment & Plan (1) Major depressive disorder: Status: Acute Code(s): F32.9 - Major depressive disorder, single episode, unspecified (2) Borderline personality disorder: Status: Acute Code(s): F60.3 - Borderline personality disorder Plan The patient is an elderly female with a past history of borderline personality disorder and major depressive disorder with a prior admission into the hospital for similar attempt of overdose 22 years ago. Currently she tried to kill herself in an impulsive manner after having conflict with her siblings. She was rushed to the emergency room, admitted to Medicine and once medically cleared transferring to this facility for psychiatric stabilization. Plan 1. Gather collateral information. 2. Continue with neuroleptics and psychotropics. 3. Since the patient is able to contract for safety she is on 50 minute checks. 4. Continue with medical workout. 5. Reassessment with results. Patient educated on: diagnosis Informed Consent: understands Reason for continued inpatient stay Substantial Risk for: inability to function, rapid decompensation and med/psych decompensation Statement Statement: I have reviewed the history and physical and performed a pertinent examination on my patient. No changes have occurred unless specified. If the History and Physical was not performed prior to admission, the Hospitalist's service will be consulted for completing the admission physical. Time Spent With Patient Time: Total time managing care of this patient today __45__ minutes.
[2023-09-12 08:51] VITALS: BP 149/90; PULSE 82; O2SAT 96
[2023-09-12] MEDS: metFORMIN HCl 500 MG TABLET PO ×2 (08:52→20:15)
[2023-09-12] MEDS: Atorvastatin Calcium 40 MG TABLET PO (08:52)
[2023-09-12] MEDS: Metoprolol Tartrate 25 MG TABLET PO ×2 (08:52→20:15)
[2023-09-12] MEDS: amLODIPine Besylate 2.5 MG TABLET PO (08:53)
[2023-09-12] MEDS: Topiramate 25 MG TABLET 75 MG PO ×2 (08:53→20:15)
[2023-09-12] MEDS: buPROPion HCl XL 300 MG TAB.ER.24H PO (08:54)
[2023-09-12] MEDS: Omeprazole 40 MG CAPSULE.DR PO (08:54)
[2023-09-12] MEDS: lamoTRIgine 25 MG TABLET 75 MG PO (08:55)
[2023-09-12] MEDS: Apixaban 5 MG TABLET PO ×2 (08:56→20:15)
[2023-09-12] MEDS: DULoxetine HCl 60 MG CAPSULE.DR 120 MG PO (08:56)
[2023-09-12 09:36] LABS: Alanine Aminotransferase 11 U/L (0-31); Albumin Level 3.8 g/dL (3.5-5.0); Alkaline Phosphatase 61 U/L (39-117); Anion Gap 12 (12-20); Aspartate Amino Transferase 16 U/L (5-31); Bilirubin Total 0.6 mg/dL (0.0-1.0); Blood Urea Nitrogen 9 mg/dL (9-16); Calcium 9.7 mg/dL (8.4-10.2); Carbon Dioxide 25 mmol/L (22-29); Chloride 111 mmol/L (96-108); Cholesterol 131 mg/dL (<200); Creatinine Clr Calc Pharmacy 91.1; Estimated Glomerular Filt Rate > 60; Glucose Fasting 87 mg/dL (60-99); HDL Cholesterol 57 mg/dL (>40); LDL Cholesterol Calculated 57 mg/dL (<100); Potassium 3.6 mmol/L (3.3-5.1); Sodium 144 mmol/L (135-145); Total Protein 6.7 g/dL (6.5-8.0); Triglycerides 86 mg/dL (<150)
[2023-09-12 11:56] LABS: Glucose, Whole Blood 75 mg/dL (60-115)
[2023-09-12] MEDS: lisinopriL 40 MG TABLET PO (13:57)
[2023-09-12] MEDS: Nystatin Powder 15 GM BOTTLE 1 APPL TOPICAL ×2 (15:40→21:32)
[2023-09-12 16:28] LABS: Glucose, Whole Blood 78 mg/dL (60-115)
[2023-09-12 18:00] VITALS: BP 119/67; PULSE 94; RESP 18; TEMP 36.1; O2SAT 99
[2023-09-12] MEDS: Gabapentin 600 MG TABLET 300 MG PO (20:14)
[2023-09-12 23:40] LABS: Glucose, Whole Blood 92 mg/dL (60-115)
[2023-09-13 08:00] VITALS: BP 118/67; PULSE 77; RESP 18; TEMP 36.2; O2SAT 99
[2023-09-13] MEDS: lamoTRIgine 25 MG TABLET 75 MG PO (08:55)
[2023-09-13] MEDS: DULoxetine HCl 60 MG CAPSULE.DR 120 MG PO (08:55)
[2023-09-13] MEDS: Topiramate 25 MG TABLET 75 MG PO ×2 (08:55→21:42)
[2023-09-13] MEDS: buPROPion HCl XL 300 MG TAB.ER.24H PO (08:55)
[2023-09-13] MEDS: amLODIPine Besylate 2.5 MG TABLET PO (08:56)
[2023-09-13] MEDS: Omeprazole 40 MG CAPSULE.DR PO (08:56)
[2023-09-13] MEDS: lisinopriL 40 MG TABLET PO (08:56)
[2023-09-13] MEDS: Atorvastatin Calcium 40 MG TABLET PO (08:56)
[2023-09-13] MEDS: metFORMIN HCl 500 MG TABLET PO ×2 (08:56→21:41)
[2023-09-13] MEDS: Apixaban 5 MG TABLET PO ×2 (08:56→21:39)
[2023-09-13] MEDS: Metoprolol Tartrate 25 MG TABLET PO ×2 (08:56→21:40)
[2023-09-13] MEDS: Nystatin Powder 15 GM BOTTLE 1 APPL TOPICAL ×3 (08:57→21:39)
--- NOTE | 2023-09-13 09:30 | HO.PSYCHPN ---
Subjective Subjective Date of Service: 09/13/23 Reason For Visit: OD in a Suicidal attempt Subjective Notes: Conditional Voluntary Interim History: The nursing staff reported the patient having alert oriented x4, the staff has noticed that she has very negative comments and she had refused to sign release to contract his family. He reports passive suicidal ideation. On interview the patient denies new symptoms, she is able to contract for safety at this moment. As usual, she shows some splitting behavior with staff and she was able to present herself in a better shape. We discussed options and she agreed to increase Lamictal up to 100 mg daily. Mental Status Exam Mental Status Exam Patient Appearance: Well Grooomed and Appropriate Patient Orientation: Person, Place, Time and Situation Level of Consciousness: Awake and Appropriate Patient Behavior: Guarded and Passive Mood Description: Calm and Withdrawn Affect Description: Constricted Patient Cognition Impaired: No Ability to Follow Directions: Good Speech Pattern: Clear Hallucinations: None Delusions: Paranoid Ideation Thought Process: Distracted and Slowed Thinking Thought Content: positive for [place] and positive for Circumstantial Judgement: Poor Diagnostics Vital Signs (24Hr): Vital Signs - 24 hr 09/12/23 18:00 09/13/23 08:00 Temperature 96.9 F 97.1 F Pulse Rate 94 77 Respiratory Rate 18 18 Blood Pressure 119/67 118/67 Pulse Oximetry 99 99 Oxygen Delivery Method Room Air Room Air BMI result Body Mass Index 45.5 Labs 09/12/23 09:01 Labs: Laboratory Results - last 48 hr 09/11/23 09/11/23 09/12/23 17:53 20:24 06:44 Hold Purple Top Sodium Potassium Chloride Carbon Dioxide Anion Gap BUN Creatinine 0.84 Estim Creat Clear Calc 85.7 Estimated GFR > 60 POC Glucose 94 69 Fasting Glucose Calcium Total Bilirubin AST ALT Alkaline Phosphatase Total Protein Albumin Triglycerides Cholesterol LDL Cholesterol, Calc HDL Cholesterol 09/12/23 09/12/23 09/12/23 09:01 11:51 16:23 Hold Purple Top SEE NOTE Sodium 144 Potassium 3.6 Chloride 111 H Carbon Dioxide 25 Anion Gap 12 BUN 9 Creatinine 0.79 Estim Creat Clear Calc 91.1 Estimated GFR > 60 POC Glucose 75 78 Fasting Glucose 87 Calcium 9.7 Total Bilirubin 0.6 AST 16 ALT 11 Alkaline Phosphatase 61 Total Protein 6.7 Albumin 3.8 Triglycerides 86 Cholesterol 131 LDL Cholesterol, Calc 57 HDL Cholesterol 57 09/12/23 20:08 Hold Purple Top Sodium Potassium Chloride Carbon Dioxide Anion Gap BUN Creatinine Estim Creat Clear Calc Estimated GFR POC Glucose 92 Fasting Glucose Calcium Total Bilirubin AST ALT Alkaline Phosphatase Total Protein Albumin Triglycerides Cholesterol LDL Cholesterol, Calc HDL Cholesterol Medications Medications Current Medications Acetaminophen (Acetaminophen 325 Mg Tablet) 650 mg PO Q6H PRN PRN Reason: Pain, Mild (Pain Scale 1-3) Al Hydroxide/Mg Hydroxide (Magnesium Hydrox/Alum Hydrox 30 Ml Oral.Susp) 30 ml PO Q6H PRN PRN Reason: Heartburn/Nausea Amlodipine Besylate (Amlodipine Besylate 2.5 Mg Tablet) 2.5 mg PO DAILY [facility]; Protocol Last Admin: 09/13/23 08:56 Dose: 2.5 mg Apixaban (Apixaban 5 Mg Tablet) 5 mg PO BID [facility] Last Admin: 09/13/23 08:56 Dose: 5 mg Atorvastatin Calcium (Atorvastatin Calcium 40 Mg Tablet) 40 mg PO DAILY [facility] Last Admin: 09/13/23 08:56 Dose: 40 mg Bupropion HCl (Bupropion Hcl Xl 300 Mg Tab.Er.24h) 300 mg PO DAILY [facility] Last Admin: 09/13/23 08:55 Dose: 300 mg Clonazepam (Clonazepam 0.5 Mg Tablet) 0.5 mg PO DAILY PRN PRN Reason: Anxiety Last Admin: 09/11/23 20:49 Dose: 0.5 mg Duloxetine HCl (Duloxetine Hcl 60 Mg Capsule.Dr) 120 mg PO DAILY [facility] Last Admin: 09/13/23 08:55 Dose: 120 mg Gabapentin (Gabapentin 600 Mg Tablet) 300 mg PO BEDTIME [facility] Last Admin: 09/12/23 20:14 Dose: 300 mg Hydroxyzine HCl (Hydroxyzine Hcl 25 Mg Tablet) 25 mg PO Q6H PRN PRN Reason: Anxiety Insulin Human Lispro (Insulin Lispro 100 Unit/Ml 3 Ml Vial) 0 unit SUBCUT QIDACHS [facility]; Protocol Last Admin: 09/13/23 08:54 Dose: Not Given Lamotrigine (Lamotrigine 25 Mg Tablet) 75 mg PO DAILY [facility] Last Admin: 09/13/23 08:55 Dose: 75 mg Lisinopril (Lisinopril 40 Mg Tablet) 40 mg PO DAILY [facility]; Protocol Last Admin: 09/13/23 08:56 Dose: 40 mg Loperamide HCl (Loperamide Hcl 2 Mg Capsule) 2 mg PO Q4H PRN PRN Reason: diarrhea Magnesium Hydroxide (Milk Of Magnesia 30 Ml Oral.Susp) 30 ml PO DAILY PRN PRN Reason: Constipation Metformin HCl (Metformin Hcl 500 Mg Tablet) 500 mg PO BID [facility] Last Admin: 09/13/23 08:56 Dose: 500 mg Metoprolol Tartrate (Metoprolol Tartrate 25 Mg Tablet) 25 mg PO BID [facility]; Protocol Last Admin: 09/13/23 08:56 Dose: 25 mg Nystatin (Nystatin Powder 15 Gm Bottle) 1 appl TOPICAL TID [facility]; Protocol Last Admin: 09/13/23 08:57 Dose: 1 appl Omeprazole (Omeprazole 40 Mg Capsule.Dr) 40 mg PO DAILY [facility] Last Admin: 09/13/23 08:56 Dose: 40 mg Topiramate (Topiramate 25 Mg Tablet) 75 mg PO BID [facility] Last Admin: 09/13/23 08:55 Dose: 75 mg Trazodone HCl (Trazodone Hcl 50 Mg Tablet) 50 mg PO BEDTIME PRN PRN Reason: Insomnia Allergies Allergies Allergy/AdvReac Type Severity Reaction Status Date / Time No Known Allergies Allergy Verified 09/08/23 12:36 Assessment & Plan Assessment & Plan (1) Major depressive disorder: Status: Acute Code(s): F32.9 - Major depressive disorder, single episode, unspecified (2) Borderline personality disorder: Status: Acute Code(s): F60.3 - Borderline personality disorder Plan The patient is an elderly female with a past history of borderline personality disorder and major depressive disorder with a prior admission into the hospital for similar attempt of overdose 22 years ago. Currently she tried to kill herself in an impulsive manner after having conflict with her siblings. She was rushed to the emergency room, admitted to Medicine and once medically cleared transferring to this facility for psychiatric stabilization. Plan 1. Gather collateral information. 2. Continue with neuroleptics and psychotropics. 3. Since the patient is able to contract for safety she is on 50 minute checks. 4. Continue with medical workout. 5. Reassessment with results. 6. Increase Lamictal up to 100 mg p.o. daily on September 14 Reason for continued inpatient stay Substantial Risk for: inability to function, rapid decompensation and med/psych decompensation Time Spent With Patient Time: Total time managing care of this patient today __20__ minutes.
[2023-09-13 16:16] LABS: Glucose, Whole Blood 90 mg/dL (60-115)
[2023-09-13] MEDS: clonazePAM 0.5 MG TABLET PO (16:35)
--- NOTE | 2023-09-13 17:26 | PC.NURSE ---
While medicating patient this afternoon patient stated, I'm so depressed I wish I had a bottle of pills. I lay here and think about what I might do. If I had a plastic bag I would put it over my head. Patient medicated with Clonazepam 0.5 mg. TW sat with patient encouraging her to get out of bed and join her peers for dinner. She declined. She has been isolative to her room for most of the day. When asked why she didn't want to eat she replied, the food is disgusting.
[2023-09-13 18:00] VITALS: BP 126/77; PULSE 81; RESP 18; TEMP 36.2; O2SAT 96
[2023-09-13] MEDS: Gabapentin 600 MG TABLET 300 MG PO (21:40)
[2023-09-14] MEDS: Acetaminophen 325 MG TABLET 650 MG PO (01:05)
[2023-09-14 02:00] LABS: Glucose, Whole Blood 75 mg/dL (60-115)
[2023-09-14 08:00] VITALS: BP 123/85; PULSE 94; RESP 18; TEMP 36.3; O2SAT 99
[2023-09-14] MEDS: Apixaban 5 MG TABLET PO ×2 (09:06→20:06)
[2023-09-14] MEDS: metFORMIN HCl 500 MG TABLET PO ×2 (09:06→20:06)
[2023-09-14] MEDS: lamoTRIgine 100 MG TABLET PO (09:06)
[2023-09-14] MEDS: DULoxetine HCl 60 MG CAPSULE.DR 120 MG PO (09:07)
[2023-09-14] MEDS: Atorvastatin Calcium 40 MG TABLET PO (09:07)
[2023-09-14] MEDS: Topiramate 25 MG TABLET 75 MG PO ×2 (09:07→20:06)
[2023-09-14] MEDS: amLODIPine Besylate 2.5 MG TABLET PO (09:07)
[2023-09-14] MEDS: Omeprazole 40 MG CAPSULE.DR PO (09:07)
[2023-09-14] MEDS: lisinopriL 40 MG TABLET PO (09:07)
[2023-09-14] MEDS: buPROPion HCl XL 300 MG TAB.ER.24H PO (09:07)
[2023-09-14] MEDS: Metoprolol Tartrate 25 MG TABLET PO ×2 (09:07→20:06)
[2023-09-14] MEDS: Nystatin Powder 15 GM BOTTLE 1 APPL TOPICAL ×3 (09:22→20:12)
--- NOTE | 2023-09-14 10:37 | HO.PSYCHPN ---
Subjective Subjective Date of Service: 09/14/23 Reason For Visit: OD in a Suicidal attempt Subjective Notes: Conditional Voluntary Interim History: The nursing staff reported the patient had been anxious, isolative spending most of the time on his room. She was seen peaking of his skiing and self harming herself. On interview the person reports that she is doing better that she feels depressed and she was able to contract for safety in the facility. Explained her that we can not start working on discharge planning as soon as she is safe unable to contract for safety in the community Mental Status Exam Mental Status Exam Patient Appearance: Appropriate Patient Orientation: Person and Situation Level of Consciousness: Awake and Appropriate Patient Behavior: Guarded and Passive Mood Description: Withdrawn Affect Description: Constricted Patient Cognition Impaired: Yes Ability to Follow Directions: Good Speech Pattern: Clear Hallucinations: None Delusions: Not Present Thought Process: Linear Thought Content: positive for [place] and positive for Circumstantial Judgement: Poor Diagnostics Vital Signs (24Hr): Vital Signs - 24 hr 09/13/23 18:00 09/14/23 08:00 Temperature 97.1 F 97.3 F Pulse Rate 81 94 Respiratory Rate 18 18 Blood Pressure 126/77 123/85 Pulse Oximetry 96 99 Oxygen Delivery Method Room Air Room Air BMI result Body Mass Index 45.5 Labs 09/12/23 09:01 Labs: Laboratory Results - last 48 hr 09/12/23 09/12/23 09/12/23 11:51 16:23 20:08 POC Glucose 75 78 92 09/13/23 09/13/23 16:11 19:53 POC Glucose 90 75 Medications Medications Current Medications Acetaminophen (Acetaminophen 325 Mg Tablet) 650 mg PO Q6H PRN PRN Reason: Pain, Mild (Pain Scale 1-3) Last Admin: 09/14/23 01:05 EST Dose: 650 mg Al Hydroxide/Mg Hydroxide (Magnesium Hydrox/Alum Hydrox 30 Ml Oral.Susp) 30 ml PO Q6H PRN PRN Reason: Heartburn/Nausea Amlodipine Besylate (Amlodipine Besylate 2.5 Mg Tablet) 2.5 mg PO DAILY [facility]; Protocol Last Admin: 09/14/23 09:07 Dose: 2.5 mg Apixaban (Apixaban 5 Mg Tablet) 5 mg PO BID [facility] Last Admin: 09/14/23 09:06 Dose: 5 mg Atorvastatin Calcium (Atorvastatin Calcium 40 Mg Tablet) 40 mg PO DAILY [facility] Last Admin: 09/14/23 09:07 Dose: 40 mg Bupropion HCl (Bupropion Hcl Xl 300 Mg Tab.Er.24h) 300 mg PO DAILY [facility] Last Admin: 09/14/23 09:07 Dose: 300 mg Clonazepam (Clonazepam 0.5 Mg Tablet) 0.5 mg PO DAILY PRN PRN Reason: Anxiety Last Admin: 09/13/23 16:35 Dose: 0.5 mg Duloxetine HCl (Duloxetine Hcl 60 Mg Capsule.) 120 mg PO DAILY [facility] Last Admin: 09/14/23 09:07 Dose: 120 mg Gabapentin (Gabapentin 600 Mg Tablet) 300 mg PO BEDTIME [facility] Last Admin: 09/13/23 21:40 Dose: 300 mg Hydroxyzine HCl (Hydroxyzine Hcl 25 Mg Tablet) 25 mg PO Q6H PRN PRN Reason: Anxiety Insulin Human Lispro (Insulin Lispro 100 Unit/Ml 3 Ml Vial) 0 unit SUBCUT QIDACHS [facility]; Protocol Last Admin: 09/14/23 08:50 Dose: Not Given Lamotrigine (Lamotrigine 100 Mg Tablet) 100 mg PO DAILY [facility] Last Admin: 09/14/23 09:06 Dose: 100 mg Lisinopril (Lisinopril 40 Mg Tablet) 40 mg PO DAILY [facility]; Protocol Last Admin: 09/14/23 09:07 Dose: 40 mg Loperamide HCl (Loperamide Hcl 2 Mg Capsule) 2 mg PO Q4H PRN PRN Reason: diarrhea Magnesium Hydroxide (Milk Of Magnesia 30 Ml Oral.Susp) 30 ml PO DAILY PRN PRN Reason: Constipation Metformin HCl (Metformin Hcl 500 Mg Tablet) 500 mg PO BID [facility] Last Admin: 09/14/23 09:06 Dose: 500 mg Metoprolol Tartrate (Metoprolol Tartrate 25 Mg Tablet) 25 mg PO BID [facility]; Protocol Last Admin: 09/14/23 09:07 Dose: 25 mg Nystatin (Nystatin Powder 15 Gm Bottle) 1 appl TOPICAL TID [facility]; Protocol Last Admin: 09/14/23 09:22 Dose: 1 appl Omeprazole (Omeprazole 40 Mg Capsule.) 40 mg PO DAILY [facility] Last Admin: 09/14/23 09:07 Dose: 40 mg Topiramate (Topiramate 25 Mg Tablet) 75 mg PO BID [facility] Last Admin: 09/14/23 09:07 Dose: 75 mg Trazodone HCl (Trazodone Hcl 50 Mg Tablet) 50 mg PO BEDTIME PRN PRN Reason: Insomnia Allergies Allergies Allergy/AdvReac Type Severity Reaction Status Date / Time No Known Allergies Allergy Verified 09/08/23 12:36 Assessment & Plan Assessment & Plan (1) Major depressive disorder: Status: Acute Code(s): F32.9 - Major depressive disorder, single episode, unspecified (2) Borderline personality disorder: Status: Acute Code(s): F60.3 - Borderline personality disorder Plan The patient is an elderly female with a past history of borderline personality disorder and major depressive disorder with a prior admission into the hospital for similar attempt of overdose 22 years ago. Currently she tried to kill herself in an impulsive manner after having conflict with her siblings. She was rushed to the emergency room, admitted to Medicine and once medically cleared transferring to this facility for psychiatric stabilization. Plan 1. Gather collateral information. 2. Continue with neuroleptics and psychotropics. 3. Since the patient is able to contract for safety she is on 50 minute checks. 4. Continue with medical workout. 5. Reassessment with results. 6. Increase Lamictal up to 100 mg p.o. daily on September 14. Reason for continued inpatient stay Substantial Risk for: inability to function, rapid decompensation and med/psych decompensation Time Spent With Patient Time: Total time managing care of this patient today __20__ minutes.
[2023-09-14 11:38] LABS: Glucose, Whole Blood 85 mg/dL (60-115)
[2023-09-14 11:38] LABS: Glucose, Whole Blood 81 mg/dL (60-115)
--- NOTE | 2023-09-14 15:49 | PC.NURSE ---
Previous RN reported patient is picking skin and have small wounds on bilateral great toes and 3-rd toes,found patient sitting in bed picking at a right foot great toe,small amt of blood present ,areas cleansed with NS and DSD applied.Left toot great toe and 3-rd urbano has a dry scabbed areas,cleansed with NS and DSD applied also,patient tolerated it well
[2023-09-14 16:37] LABS: Glucose, Whole Blood 85 mg/dL (60-115)
[2023-09-14 18:00] VITALS: BP 119/65; PULSE 96; RESP 20; TEMP 35.9; O2SAT 96
[2023-09-14 20:03] LABS: Glucose, Whole Blood 96 mg/dL (60-115)
[2023-09-14] MEDS: Gabapentin 600 MG TABLET 300 MG PO (20:07)
[2023-09-15 07:42] LABS: Glucose, Whole Blood 92 mg/dL (60-115)
[2023-09-15 08:00] VITALS: BP 93/55; PULSE 98; RESP 18; TEMP 36.2; O2SAT 95
[2023-09-15] MEDS: buPROPion HCl XL 300 MG TAB.ER.24H PO (09:17)
[2023-09-15] MEDS: DULoxetine HCl 60 MG CAPSULE.DR 120 MG PO (09:17)
[2023-09-15] MEDS: lamoTRIgine 100 MG TABLET PO (09:18)
[2023-09-15] MEDS: lisinopriL 40 MG TABLET PO (09:18)
[2023-09-15] MEDS: Atorvastatin Calcium 40 MG TABLET PO (09:18)
[2023-09-15] MEDS: amLODIPine Besylate 2.5 MG TABLET PO (09:18)
[2023-09-15] MEDS: metFORMIN HCl 500 MG TABLET PO ×2 (09:18→21:38)
[2023-09-15] MEDS: Topiramate 25 MG TABLET 75 MG PO ×2 (09:19→20:09)
[2023-09-15] MEDS: Omeprazole 40 MG CAPSULE.DR PO (09:19)
[2023-09-15] MEDS: Apixaban 5 MG TABLET PO ×2 (09:19→20:10)
[2023-09-15] MEDS: Acetaminophen 325 MG TABLET 650 MG PO (10:43)
--- NOTE | 2023-09-15 14:45 | P.PNPSI_ITS ---
Subjective Subjective Date of Service: 09/15/23 Reason For Visit: OD in a Suicidal attempt Subjective Notes: Conditional Voluntary Interim History: The nursing staff reported patient stating her room most of the weekend. She denies new symptoms she wants to be discharged. On interview the patient stated that she is not suicidal anymore and she is planning discharge, she requested Klonopin back. Mental Status Exam Mental Status Exam Patient Appearance: Well Grooomed and Appropriate Patient Orientation: Person and Situation Level of Consciousness: Awake and Appropriate Patient Behavior: Guarded and Passive Mood Description: Withdrawn Affect Description: Constricted Patient Cognition Impaired: Yes Ability to Follow Directions: Good Speech Pattern: Clear Hallucinations: None Delusions: Not Present Thought Process: Distracted Thought Content: positive for Thompson and positive for Poverty of Content Judgement: Fair Diagnostics Vital Signs (24Hr): Vital Signs - 24 hr 09/14/23 18:00 09/15/23 08:00 Temperature 96.7 F L 97.2 F Pulse Rate 96 98 Respiratory Rate 20 18 Blood Pressure 119/65 93/55 L Pulse Oximetry 96 95 Oxygen Delivery Method Room Air Room Air BMI result Body Mass Index 45.5 Labs 09/12/23 09:01 Labs: Laboratory Results - last 48 hr 09/13/23 09/13/23 09/14/23 16:11 19:53 06:48 POC Glucose 90 75 81 09/14/23 09/14/23 09/14/23 11:29 16:31 19:57 POC Glucose 85 85 96 09/15/23 06:32 POC Glucose 92 Medications Medications Current Medications Acetaminophen (Acetaminophen 325 Mg Tablet) 650 mg PO Q6H PRN PRN Reason: Pain, Mild (Pain Scale 1-3) Last Admin: 09/15/23 10:43 Dose: 650 mg Al Hydroxide/Mg Hydroxide (Magnesium Hydrox/Alum Hydrox 30 Ml Oral.Susp) 30 ml PO Q6H PRN PRN Reason: Heartburn/Nausea Amlodipine Besylate (Amlodipine Besylate 2.5 Mg Tablet) 2.5 mg PO DAILY [facility]; Protocol Last Admin: 09/15/23 09:18 Dose: 2.5 mg Apixaban (Apixaban 5 Mg Tablet) 5 mg PO BID [facility] Last Admin: 09/15/23 09:19 Dose: 5 mg Atorvastatin Calcium (Atorvastatin Calcium 40 Mg Tablet) 40 mg PO DAILY [facility] Last Admin: 09/15/23 09:18 Dose: 40 mg Bupropion HCl (Bupropion Hcl Xl 300 Mg Tab.Er.24h) 300 mg PO DAILY [facility] Last Admin: 09/15/23 09:17 Dose: 300 mg Clonazepam (Clonazepam 0.5 Mg Tablet) 0.5 mg PO DAILY PRN PRN Reason: Anxiety Last Admin: 09/13/23 16:35 Dose: 0.5 mg Duloxetine HCl (Duloxetine Hcl 60 Mg Capsule.) 120 mg PO DAILY [facility] Last Admin: 09/15/23 09:17 Dose: 120 mg Gabapentin (Gabapentin 600 Mg Tablet) 300 mg PO BEDTIME [facility] Last Admin: 09/14/23 20:07 Dose: 300 mg Hydroxyzine HCl (Hydroxyzine Hcl 25 Mg Tablet) 25 mg PO Q6H PRN PRN Reason: Anxiety Insulin Human Lispro (Insulin Lispro 100 Unit/Ml 3 Ml Vial) 0 unit SUBCUT BID@0730,2100 [facility]; Protocol Last Admin: 09/15/23 09:06 Dose: Not Given Lamotrigine (Lamotrigine 100 Mg Tablet) 100 mg PO DAILY [facility] Last Admin: 09/15/23 09:18 Dose: 100 mg Lisinopril (Lisinopril 40 Mg Tablet) 40 mg PO DAILY [facility]; Protocol Last Admin: 09/15/23 09:18 Dose: 40 mg Loperamide HCl (Loperamide Hcl 2 Mg Capsule) 2 mg PO Q4H PRN PRN Reason: diarrhea Magnesium Hydroxide (Milk Of Magnesia 30 Ml Oral.Susp) 30 ml PO DAILY PRN PRN Reason: Constipation Metformin HCl (Metformin Hcl 500 Mg Tablet) 500 mg PO BID [facility] Last Admin: 09/15/23 09:18 Dose: 500 mg Metoprolol Tartrate (Metoprolol Tartrate 25 Mg Tablet) 25 mg PO BID [facility]; Protocol Last Admin: 09/15/23 09:19 Dose: Not Given Nystatin (Nystatin Powder 15 Gm Bottle) 1 appl TOPICAL TID [facility]; Protocol Last Admin: 09/14/23 20:12 Dose: 1 appl Omeprazole (Omeprazole 40 Mg Capsule.) 40 mg PO DAILY [facility] Last Admin: 09/15/23 09:19 Dose: 40 mg Topiramate (Topiramate 25 Mg Tablet) 75 mg PO BID [facility] Last Admin: 09/15/23 09:19 Dose: 75 mg Trazodone HCl (Trazodone Hcl 50 Mg Tablet) 50 mg PO BEDTIME PRN PRN Reason: Insomnia Allergies Allergies Allergy/AdvReac Type Severity Reaction Status Date / Time No Known Allergies Allergy Verified 09/08/23 12:36 Assessment & Plan Assessment & Plan (1) Major depressive disorder: Status: Acute Code(s): F32.9 - Major depressive disorder, single episode, unspecified (2) Borderline personality disorder: Status: Acute Code(s): F60.3 - Borderline personality disorder Plan The patient is an elderly female with a past history of borderline personality disorder and major depressive disorder with a prior admission into the hospital for similar attempt of overdose 22 years ago. Currently she tried to kill herself in an impulsive manner after having conflict with her siblings. She was rushed to the emergency room, admitted to Medicine and once medically cleared transferring to this facility for psychiatric stabilization. Plan 1. Gather collateral information. 2. Continue with neuroleptics and psychotropics. 3. Since the patient is able to contract for safety she is on 50 minute checks. 4. Continue with medical workout. 5. Reassessment with results. 6. Increase Lamictal up to 100 mg p.o. daily on September 14. 7. Start working on discharge planning for tomorrow Reason for continued inpatient stay Substantial Risk for: inability to function, rapid decompensation and med/psych decompensation Time Spent With Patient Time: Total time managing care of this patient today __20__ minutes.
[2023-09-15 19:30] VITALS: BP 110/52; PULSE 122; RESP 20; TEMP 35.5; O2SAT 97
[2023-09-15 19:35] VITALS: PULSE 130
[2023-09-15] MEDS: Metoprolol Tartrate 25 MG TABLET PO (20:09)
[2023-09-15] MEDS: Gabapentin 600 MG TABLET 300 MG PO (20:10)
[2023-09-15 21:30] VITALS: BP 125/70; PULSE 100
[2023-09-15 21:40] LABS: Glucose, Whole Blood 123 mg/dL (60-115)
--- NOTE | 2023-09-15 22:06 | ECG_ITS ---
Test Reason : irregular heart beat Blood Pressure : / mmHG Vent. Rate : 103 BPM Atrial Rate : 000 BPM P-R Int : 000 ms QRS Dur : 096 ms QT Int : 352 ms P-R-T Axes : 000 -16 040 degrees QTc Int : 461 ms Atrial fibrillation with rapid ventricular response Nonspecific ST abnormality Abnormal ECG When compared with ECG of 09-SEP-2023 00:50, No significant change was found Heart rate has increased Referred By: Jitendra Kim Electronically Signed By:JERILYN STEPHENSON MD
--- NOTE | 2023-09-15 23:40 | PC.NURSE ---
2129 dr suellen valiente called notified 1. pts metoprolol was held this am for sbp in the 90s mmhg 2. pt usually receives metoprolol 25 mg bid 3. at 1999 pt noted to have hr 120-130 4. hr is irregular 5. b/p 126/94 6. pt is asymptomatic to rate 4. metoprolol 25 mg po given as scheduled given 7. at 2099 b/p 125/70 8. hr has decreased to 100 bpm 9. apical hr remains irregular 10. pt is on anticoagulation elquis- plan 1. stat 12 lead ecg (which shows afib with rapid ventricular response 102-104 bpm 2. hospitalist consult. 3. dr valiente to contact dr nieto for medical consult. at 2300 pt placed on nocturnal cpap and 1 to 1 pt observation implemented.
[2023-09-16 06:40] LABS: Glucose, Whole Blood 100 mg/dL (60-115)
[2023-09-16 08:00] VITALS: BP 116/62; PULSE 108; RESP 18; TEMP 35.8; O2SAT 97
--- NOTE | 2023-09-16 08:08 | PM.PSYDC ---
DS: Providers Provider Date of Service: 09/16/23 Date of admission: 09/11/23 15:08 Date of discharge: 09/16/23 Primary care physician: Unknown Physician Consults: 09/15/23 22:39 Consult to Hospitalist Routine Comment: Consulting Provider: Hospitalist Reason For Exam: variable BP/pulse. afib, tachy. EKG changes. Attending physician on discharge: Praful Abbott DS: Diagnosis Discharge Diagnosis (1) Major depressive disorder: Status: Acute (2) Borderline personality disorder: Status: Acute DS: Medications Discharge Medications Home Medications: Home Medications Medication Instructions Recorded Confirmed amlodipine 2.5 mg tablet 2.5 mg PO DAILY 05/21/22 09/12/23 apixaban 5 mg tablet (Eliquis) 5 mg PO BID 05/21/22 09/12/23 atorvastatin 40 mg tablet 40 mg PO DAILY 05/21/22 09/12/23 blood sugar diagnostic (Freeyle #10 ea 05/21/22 09/12/23 Lite Strips) bupropion HCl 300 mg 24 hr tablet, 300 mg PO DAILY 05/21/22 09/12/23 extended release clonazepam 0.5 mg tablet 0.5 mg PO DAILY PRN Anxiety 05/21/22 09/12/23 duloxetine 60 mg capsule,delayed 120 mg PO QAM 05/21/22 09/12/23 release gabapentin 300 mg capsule 300 mg PO DAILY 05/21/22 09/12/23 lisinopril 40 mg tablet 40 mg PO DAILY 05/21/22 09/12/23 metoprolol tartrate 25 mg tablet 25 mg PO BID 05/21/22 09/12/23 omeprazole 40 mg capsule,delayed 40 mg PO DAILY 05/21/22 09/12/23 release metformin 500 mg tablet 500 mg PO BID 09/08/23 09/12/23 topiramate 100 mg tablet 75 mg PO BID 09/08/23 09/12/23 lamotrigine 25 mg tablet (Lamictal) 75 mg PO DAILY 09/12/23 09/12/23 Mental Status Exam Mental Status Exam Patient Appearance: Well Grooomed and Appropriate Patient Orientation: Person, Place, Time and Situation Level of Consciousness: Awake and Appropriate Mood Description: Calm Affect Description: Calm and Constricted Patient Cognition Impaired: No Ability to Follow Directions: Good Speech Pattern: Clear Hallucinations: None Delusions: Not Present Thought Process: Distracted, Goal Oriented and Linear Thought Content: positive for Circumstantial and positive for Linear Judgement: Fair Data Data Completed and Pending Completed studies during hospitalization [Text1]: 09/11/23 09/11/23 09/12/23 17:53 20:24 06:44 Hold Purple Top Sodium Potassium Chloride Carbon Dioxide Anion Gap BUN Creatinine 0.84 Estim Creat Clear Calc 85.7 Estimated GFR > 60 POC Glucose 94 69 Fasting Glucose Calcium Total Bilirubin AST ALT Alkaline Phosphatase Total Protein Albumin Triglycerides Cholesterol LDL Cholesterol, Calc HDL Cholesterol 09/12/23 09/12/23 09/12/23 09:01 11:51 16:23 Hold Purple Top SEE NOTE Sodium 144 Potassium 3.6 Chloride 111 H Carbon Dioxide 25 Anion Gap 12 BUN 9 Creatinine 0.79 Estim Creat Clear Calc 91.1 Estimated GFR > 60 POC Glucose 75 78 Fasting Glucose 87 Calcium 9.7 Total Bilirubin 0.6 AST 16 ALT 11 Alkaline Phosphatase 61 Total Protein 6.7 Albumin 3.8 Triglycerides 86 Cholesterol 131 LDL Cholesterol, Calc 57 HDL Cholesterol 57 09/12/23 09/13/23 09/13/23 20:08 16:11 19:53 Hold Purple Top Sodium Potassium Chloride Carbon Dioxide Anion Gap BUN Creatinine Estim Creat Clear Calc Estimated GFR POC Glucose 92 90 75 Fasting Glucose Calcium Total Bilirubin AST ALT Alkaline Phosphatase Total Protein Albumin Triglycerides Cholesterol LDL Cholesterol, Calc HDL Cholesterol 09/14/23 09/14/23 09/14/23 06:48 11:29 16:31 Hold Purple Top Sodium Potassium Chloride Carbon Dioxide Anion Gap BUN Creatinine Estim Creat Clear Calc Estimated GFR POC Glucose 81 85 85 Fasting Glucose Calcium Total Bilirubin AST ALT Alkaline Phosphatase Total Protein Albumin Triglycerides Cholesterol LDL Cholesterol, Calc HDL Cholesterol 09/14/23 09/15/23 09/15/23 19:57 06:32 21:01 Hold Purple Top Sodium Potassium Chloride Carbon Dioxide Anion Gap BUN Creatinine Estim Creat Clear Calc Estimated GFR POC Glucose 96 92 123 H Fasting Glucose Calcium Total Bilirubin AST ALT Alkaline Phosphatase Total Protein Albumin Triglycerides Cholesterol LDL Cholesterol, Calc HDL Cholesterol 09/16/23 06:09 Hold Purple Top Sodium Potassium Chloride Carbon Dioxide Anion Gap BUN Creatinine Estim Creat Clear Calc Estimated GFR POC Glucose 100 Fasting Glucose Calcium Total Bilirubin AST ALT Alkaline Phosphatase Total Protein Albumin Triglycerides Cholesterol LDL Cholesterol, Calc HDL Cholesterol DS: Summary Hospital Course Hospital Course: The patient is a 73-year-old female with a past history of depression, borderline personality disorder and other medical comorbidities who was rushed to the emergency room after she took an intentional overdose of Klonopin and other prescription medications in a suicidal attempt. Apparently the patient had conflicts with her siblings who wants to sell the house where she resides, she get overwhelmed and she decided to kill herself but 1st she called her family. The relatives call 911 and she was rushed to the emergency room, assess by the team and admitted to Medicine for medical clearance. Please see the HPI note of the admission note for further details. On interview, on the intake, the patient reported several conflicts with her family, she admitted that she has a lifelong history of borderline personality disorder and major depressive disorder, she was able to contract for safety in the facility. We discussed risks, benefits, side-effects and alternatives and we review her list of medications and she decided to increased Lamictal to target mood lability and dysphoria. The patient tolerated the medication fairly well. While she was in the unit, the patient was most of the time isolative, was able to contract for safety and she adamantly denies active suicidal ideation. Since there were no safety concerns discharge planning was discussed. Time spent discussing smoking cessation with patient: 3 to 10 minutes Status at Discharge Functional status at discharge: independent ambulation Overall status at discharge: patient is back to baseline Time Spent with Patient Time attestation: Total time managing care of this patient today __30__ minutes. Time spent: Less than 30 minutes Discharge Plan Discharge Anticipated Discharge Date/Time: 09/16/23 10:00 Patient Disposition: Home, Self-Care Discharge Diagnosis: Major depressive disorder Borderline personality disorder Referrals: Dr Erik Kim [Other] - 1 Week [facility] [Other] - [address] Suresh Beaulieu [Other] - 1 Week Discharge Medications: New acetaminophen 325 mg Tablet 650 mg PO Q6H PRN (Reason: Pain, Mild (Pain Scale 1-3)) Qty: 30 0RF gabapentin 600 mg Tablet 300 mg PO BEDTIME 30 Days Qty: 15 0RF clonazepam 0.5 mg Tablet 0.5 mg PO DAILY PRN (Reason: Anxiety) 7 Days Qty: 7 2RF metoprolol tartrate 50 mg Tablet 50 mg PO BID 30 Days Qty: 60 0RF Protocol: Hold for SBP/HR < HOLD for SBP < : 90 HOLD for HR < : 60 lamotrigine 100 mg Tablet 100 mg PO DAILY 30 Days Qty: 30 0RF nystatin 100,000 unit/gram Powder 1 appl topical TID 30 Days Qty: 5 0RF Protocol: Apply to: Apply to: Abdominal folds and groin Continued atorvastatin 40 mg tablet 40 mg PO DAILY 30 Days Qty: 30 0RF metformin 500 mg tablet 500 mg PO BID 30 Days Qty: 60 0RF amlodipine 2.5 mg tablet 2.5 mg PO DAILY 30 Days Qty: 30 0RF omeprazole 40 mg capsule,delayed release(DR/EC) 40 mg PO DAILY 30 Days Qty: 30 0RF lisinopril 40 mg tablet 40 mg PO DAILY 30 Days Qty: 30 0RF topiramate 100 mg tablet 75 mg PO BID 30 Days Qty: 45 0RF bupropion HCl 300 mg tablet extended release 24 hr 300 mg PO DAILY 30 Days Qty: 30 0RF duloxetine 60 mg capsule,delayed release(DR/EC) 120 mg PO QAM 30 Days Qty: 60 0RF Eliquis 5 mg tablet 5 mg PO BID Qty: 60 0RF Discontinued lamotrigine [Lamictal] 25 mg Tablet 75 mg PO DAILY clonazepam 0.5 mg tablet 0.5 mg PO DAILY PRN (Reason: Anxiety) (DME) FreeStyle Lite Strips Strip See Rx Instructions .ROUTE DAILY Qty: 10 Rx Instructions: As directed metoprolol tartrate 25 mg tablet 25 mg PO BID gabapentin 300 mg capsule 300 mg PO DAILY Discharge Orders: Discharge Order (Routine); Ordered 09/16/23 Ordered By: Praful Abbott Diet: Advance to usual diet Activity on Discharge: As tolerated Stand Alone Forms: Patient Portal Discharge page Care Plan Goals: Care plan goals achieved in this admission. Health Concerns: Continue treatment by primary care physician Plan of Treatment: Continue treatment with outpatient providers as listed on the discharge summary. Assessment: The patient is an elderly female with a past history of major depressive disorder, borderline personality disorder and other medical comorbidities, admitted after she intentionally overdosed on Klonopin and other medications in a suicidal attempt that needed medical inpatient level of care. The patient was assessed, treated and Lamictal increased to target depression. At this moment she is safe, able to contract for safety and future oriented.
--- NOTE | 2023-09-16 09:00 | PM.IMCN ---
History of Present Illness Data of Consult Service Date: 09/16/23 Primary Care Provider: Unknown Physician HPI 73 years old lady with PMH of DMII, hx DVT on Eliquis, HTN, depression among other behavioural issues who presents to the hospital w AMS after overdose with Klonipin and tramadol. Discharged to psychiatry unit for further treatment with good response. noted to have high heart rate as Afib w RvR. fairly improved with her own medicaitons. No chest pain, palpitations, SOB, nausea, vomiting, diarrhea or urinary symptoms. Hospitalist team asked to evaluate. Review of Systems Review of Systems: No fever, chills or weakness No chest pain, palpitation No shortness of breath or coughing No abdominal pain, nausea or vomiting No urinary symptoms No any rash or wounds PMFSH Medical History Diabetes mellitus Chronic anticoagulation Social History Household Members: None Housing: House Do you presently have visiting nurse or other home services: No Unable to assess alcohol history related to: Unable to respond Patient Tobacco Use Status: Never used Tobacco Use of substances other than those prescribed or required for medical reasons: No Currently Displaying Signs/Symptoms of Drug Intoxication Withdrawal: No Any prior treatment program specific to substance use: No Have you been hit, kicked, punched, or otherwise hurt by someone within the past year? If so, by whom?: No Do you feel safe in your current relationship?: No Current Relationship Is there a partner from a previous relationship who is making you feel unsafe now?: No Are you made to feel afraid or neglected: No Advance Directives: No Advance Directives Information Provided: No Do you have thoughts of harming others: None Do you have a plan to hurt others: No Plan Recently lost weight without trying: Unsure Eating poorly because of decreased appetite: No Nutrition Risks: No Nutritional Risk Patient : No : No Poor oral hygiene: No service: No Meds Allergies Allergy/AdvReac Type Severity Reaction Status Date / Time No Known Allergies Allergy Verified 09/08/23 12:36 Active Medications: Current Medications Acetaminophen (Acetaminophen 325 Mg Tablet) 650 mg PO Q6H PRN PRN Reason: Pain, Mild (Pain Scale 1-3) Last Admin: 09/15/23 10:43 Dose: 650 mg Al Hydroxide/Mg Hydroxide (Magnesium Hydrox/Alum Hydrox 30 Ml Oral.Susp) 30 ml PO Q6H PRN PRN Reason: Heartburn/Nausea Amlodipine Besylate (Amlodipine Besylate 2.5 Mg Tablet) 2.5 mg PO DAILY [facility]; Protocol Last Admin: 09/15/23 09:18 Dose: 2.5 mg Apixaban (Apixaban 5 Mg Tablet) 5 mg PO BID [facility] Last Admin: 09/15/23 20:10 Dose: 5 mg Atorvastatin Calcium (Atorvastatin Calcium 40 Mg Tablet) 40 mg PO DAILY [facility] Last Admin: 09/15/23 09:18 Dose: 40 mg Bupropion HCl (Bupropion Hcl Xl 300 Mg Tab.Er.24h) 300 mg PO DAILY [facility] Last Admin: 09/15/23 09:17 Dose: 300 mg Clonazepam (Clonazepam 0.5 Mg Tablet) 0.5 mg PO DAILY PRN PRN Reason: Anxiety Last Admin: 09/13/23 16:35 Dose: 0.5 mg Duloxetine HCl (Duloxetine Hcl 60 Mg Capsule.Dr) 120 mg PO DAILY [facility] Last Admin: 09/15/23 09:17 Dose: 120 mg Gabapentin (Gabapentin 600 Mg Tablet) 300 mg PO BEDTIME [facility] Last Admin: 09/15/23 20:10 Dose: 300 mg Hydroxyzine HCl (Hydroxyzine Hcl 25 Mg Tablet) 25 mg PO Q6H PRN PRN Reason: Anxiety Insulin Human Lispro (Insulin Lispro 100 Unit/Ml 3 Ml Vial) 0 unit SUBCUT BID@0730,2100 [facility]; Protocol Last Admin: 09/15/23 22:18 Dose: Not Given Lamotrigine (Lamotrigine 100 Mg Tablet) 100 mg PO DAILY [facility] Last Admin: 09/15/23 09:18 Dose: 100 mg Lisinopril (Lisinopril 40 Mg Tablet) 40 mg PO DAILY [facility]; Protocol Last Admin: 09/15/23 09:18 Dose: 40 mg Loperamide HCl (Loperamide Hcl 2 Mg Capsule) 2 mg PO Q4H PRN PRN Reason: diarrhea Magnesium Hydroxide (Milk Of Magnesia 30 Ml Oral.Susp) 30 ml PO DAILY PRN PRN Reason: Constipation Metformin HCl (Metformin Hcl 500 Mg Tablet) 500 mg PO BID [facility] Last Admin: 09/15/23 21:38 Dose: 500 mg Metoprolol Tartrate (Metoprolol Tartrate 50 Mg Tablet) 50 mg PO BID [facility]; Protocol Nystatin (Nystatin Powder 15 Gm Bottle) 1 appl TOPICAL TID [facility]; Protocol Last Admin: 09/15/23 21:39 Dose: Not Given Omeprazole (Omeprazole 40 Mg Capsule.Dr) 40 mg PO DAILY [facility] Last Admin: 09/15/23 09:19 Dose: 40 mg Topiramate (Topiramate 25 Mg Tablet) 75 mg PO BID [facility] Last Admin: 09/15/23 20:09 Dose: 75 mg Trazodone HCl (Trazodone Hcl 50 Mg Tablet) 50 mg PO BEDTIME PRN PRN Reason: Insomnia Physical Exam Vital Signs and Narrative: Vital Signs: Last Vital Signs Temp 96 F L 09/15/23 19:30 Pulse 100 09/15/23 21:30 Resp 20 09/15/23 19:30 BP 125/70 09/15/23 21:30 Pulse Ox 97 09/15/23 19:30 O2 Del Method Room Air 09/15/23 19:30 BMI result Body Mass Index 45.5 Const: Other: Constitutional : Awake, interactive, not in distress Neck : Normal inspection, Supple Cardiovascular : Irregular irregular , no JVP, no lower extremity edema Respiratory : good bilateral air entry, no crackles, wheezes or rhonchi Gastrointestinal: soft, lax, Normal bowel sounds, Non tender Skin : Warm, Dry Neurological : Alert & oriented x3, No focal deficit Results Labs 09/12/23 09:01 Labs: Laboratory Results - last 24 hr 09/15/23 09/16/23 21:01 06:09 POC Glucose 123 H 100 Assessment and Plan (1) Atrial fibrillation: Status: Acute Plan 73 years old lady with PMH of DMII, hx DVT on Eliquis, HTN, Afib, depression among other behavioural issues who presents to the hospital w AMS after overdose with Klonipin and tramadol. Discharged to psychiatry unit for further treatment with good response. noted to have high heart rate as Afib w RvR. Atrial fibrillation w RvR Rate around 100s-120s, asymptomatic Increase Metoprolol 50 mg bid monitor HR Continue Eliquis Hold Amlodipine meanwhile Thank you for the consult. will continue to monitor with you
[2023-09-16] MEDS: metFORMIN HCl 500 MG TABLET PO (09:07)
[2023-09-16] MEDS: Nystatin Powder 15 GM BOTTLE 1 APPL TOPICAL (09:07)
[2023-09-16] MEDS: Topiramate 25 MG TABLET 75 MG PO (09:08)
[2023-09-16] MEDS: DULoxetine HCl 60 MG CAPSULE.DR 120 MG PO (09:08)
[2023-09-16] MEDS: Apixaban 5 MG TABLET PO (09:09)
[2023-09-16] MEDS: buPROPion HCl XL 300 MG TAB.ER.24H PO (09:09)
[2023-09-16] MEDS: Metoprolol Tartrate 50 MG TABLET PO (09:09)
[2023-09-16] MEDS: lamoTRIgine 100 MG TABLET PO (09:10)
[2023-09-16] MEDS: lisinopriL 40 MG TABLET PO (09:10)
[2023-09-16] MEDS: Omeprazole 40 MG CAPSULE.DR PO (09:10)
[2023-09-16] MEDS: Atorvastatin Calcium 40 MG TABLET PO (09:11)
--- NOTE | 2023-09-16 10:39 | PC.NURSE ---
Both great toes and third right toe with open wounds from patient picking at them. No signs or symptoms of complications. Patient teaching done regarding diabetic foot care and greater chance of getting infections in those wounds to due diabetes. Patient agreed to try and stop picking at her toes. All toes cleansed with normal saline and clean dry non adhesive dressing applied and secured with tape.
== END 2023-09-16 13:37 | disposition home or self-care (01) | DRG 883 ==
PROVIDERS: Admitting Provider Psychiatry & Neurology Psychiatry; Visit Provider Psychiatry & Neurology Psychiatry
DX: F60.3 Borderline personality disorder (principal); F32.9 Major depressive disorder, single episode, unspecified; E11.9 Type 2 diabetes mellitus without complications; I10 Essential (primary) hypertension; Z86.718 Personal history of other venous thrombosis and embolism; I48.91 Unspecified atrial fibrillation; Z91.51 Personal history of suicidal behavior; Z79.01 Long term (current) use of anticoagulants; Z79.84 Long term (current) use of oral hypoglycemic drugs; Z79.899 Other long term (current) drug therapy
CPT/HCPCS: 36415; 70450; 70551; 71045; 80048; 80053; 80061; 80201; 80307; 81001; 81003; 82550; 82565; 82803; 82947; 83605; 83735; 83880; 84484; 85025; 85027; 85610; 85730; 87040; 93005; 96361; 96374; 96375; 97116; 97162; 99285; C1758; S9485

== ENCOUNTER → 2023-09-11 15:08 | Outpatient (BNV) | payer MEDICARE, OTHER, SELFPAY | PROVIDERS: Admitting Provider Psychiatry & Neurology Psychiatry; Visit Provider Psychiatry & Neurology Psychiatry | DX: F60.3 Borderline personality disorder (principal); F33.2 Major depressive disorder, recurrent severe without psychotic features | CPT/HCPCS: 90792; 99231; 99232; 99238 ==

== ENCOUNTER → 2023-09-11 15:08 | Outpatient (BNV) | payer MEDICARE, OTHER, SELFPAY | PROVIDERS: Admitting Provider Psychiatry & Neurology Psychiatry; Visit Provider Student in an Organized Health Care Education/Training Program | DX: I48.91 Unspecified atrial fibrillation (principal) | CPT/HCPCS: 99221 ==

== ENCOUNTER 2024-02-24 14:22 | Emergency (ER) | payer MEDICARE, OTHER, SELFPAY ==
[2024-02-24] VITALS (9 sets, daily range): BP systolic 110–128; BP diastolic 62–83; PULSE 89–98; RESP 16–21; TEMP 36.5–36.8; O2SAT 96–99; BMI 45.4
--- NOTE | ~2024-02-24 | XR_ITS ---
EXAMINATION: XR SHOULDER, RIGHT CLINICAL INFORMATION: Right shoulder pain after fall COMPARISON: None available. TECHNIQUE: AP external rotation, Grashey, scapular Y, and axillary views of the right shoulder. FINDINGS: Severe degenerative changes are present in the right shoulder with marked glenohumeral narrowing, sclerosis and osteophytes. No acute fracture or dislocation seen. Degenerative changes also seen at the right AC joint. XR/XR shoulder RT min 2V IMPRESSION: Severe degenerative changes in the right shoulder without acute fracture or dislocation.
--- NOTE | ~2024-02-24 | XR_ITS ---
EXAMINATION: XR ANKLE, RIGHT CLINICAL INFORMATION: Status post reduction COMPARISON: Multiple right foot and ankle radiographs earlier today TECHNIQUE: AP, lateral, and mortise views of the right ankle. FINDINGS: There has been reduction of the trimalleolar fracture/dislocation. The ankle mortise now appears in good position with some mild widening of the medial clear space. Again noted are fractures of the medial, lateral and posterior malleolus with only minimal displacement compared to the marked displacement seen previously. XR/XR ankle RT 2V IMPRESSION: Successful reduction of trimalleolar fracture/dislocation.
--- NOTE | ~2024-02-24 | XR_ITS ---
EXAMINATION: 1. Right ankle. 2. Right foot. CLINICAL INFORMATION: Fall. Deformity. COMPARISON: None. TECHNIQUE: 1. Right ankle. 2 views 2. Right foot. 2 views FINDINGS: 1. Right ankle. Trimalleolar fracture of the ankle with dislocation of the ankle joint.. There is an oblique fracture of the lateral malleolus, transverse fracture of the medial malleolus. Vertically oriented fracture through the posterior malleolus. The talus is dislocated laterally and posterior relative to the tibia. 2. Right foot. No fracture or dislocation of right foot. Small plantar calcaneal spur XR/XR foot RT min 3V IMPRESSION: 1. Right ankle. Trimalleolar fracture and dislocation of the ankle. 2. Right foot. No acute abnormality.
--- NOTE | ~2024-02-24 | XR_ITS ---
EXAMINATION: 1. Right ankle. 2. Right foot. CLINICAL INFORMATION: Fall. Deformity. COMPARISON: None. TECHNIQUE: 1. Right ankle. 2 views 2. Right foot. 2 views FINDINGS: 1. Right ankle. Trimalleolar fracture of the ankle with dislocation of the ankle joint.. There is an oblique fracture of the lateral malleolus, transverse fracture of the medial malleolus. Vertically oriented fracture through the posterior malleolus. The talus is dislocated laterally and posterior relative to the tibia. 2. Right foot. No fracture or dislocation of right foot. Small plantar calcaneal spur XR/XR ankle RT min 3V IMPRESSION: 1. Right ankle. Trimalleolar fracture and dislocation of the ankle. 2. Right foot. No acute abnormality.
--- NOTE | 2024-02-24 14:54 | ED.FALL ---
HPI - Fall General Chief Complaint: Fall Stated Complaint: fall, ankle deformity Time Seen by Provider: 02/24/24 14:36 Source: patient, EMS, RN notes reviewed and old records reviewed Mode of arrival: EMS Limitations: no limitations History of Present Illness HPI Narrative: 73 year old female with pmhx significant for DM, MDD, borderline personality disorder, and atrial fibrillation on eliquis presents to the ED today via EMS for evaluation of right ankle pain/ swelling s/p mechanical fall occurring [employer]. She admits that while attempting to get into the car, she felt her right ankle twist causing her to fall to the ground. Her shuttle bus driver was able to lower her to the ground. Denies head strike or LOC. She was unable to stand or bear weight on the right extremity. EMS was called and patient was transported to the ED for further evaluation. Her only complaint at present is right ankle and right shoulder pain. Reports chronic arthritis in her right shoulder however the pain worsened on fall. She ambulates with walker at baseline. Denies fever, chills, N/V, numbness/tingling/weakness of the RLE. 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 Related Data Previous Rx's ?Medication ?Instructions ?Recorded acetaminophen 325 mg tablet 650 mg (2 x 325 mg) PO Q6H PRN 09/16/23 Pain, Mild (Pain Scale 1-3) #30 tabs amlodipine 2.5 mg tablet 2.5 mg PO DAILY 30 days #30 tabs 09/16/23 apixaban 5 mg tablet (Eliquis) 5 mg PO BID #60 tabs 09/16/23 atorvastatin 40 mg tablet 40 mg PO DAILY 30 days #30 tabs 09/16/23 bupropion HCl 300 mg 24 hr tablet, 300 mg PO DAILY 30 days #30 tabs 09/16/23 extended release clonazepam 0.5 mg tablet 0.5 mg PO DAILY PRN Anxiety 7 days 09/16/23 #7 tabs duloxetine 60 mg capsule,delayed 120 mg (2 x 60 mg) PO QAM 30 days 09/16/23 release #60 caps gabapentin 600 mg tablet 300 mg (1/2 x 600 mg) PO BEDTIME 09/16/23 30 days #15 tabs lamotrigine 100 mg tablet 100 mg PO DAILY 30 days #30 tabs 09/16/23 lisinopril 40 mg tablet 40 mg PO DAILY 30 days #30 tabs 09/16/23 metformin 500 mg tablet 500 mg PO BID 30 days #60 tabs 09/16/23 metoprolol tartrate 50 mg tablet 50 mg PO BID 30 days #60 tabs 09/16/23 nystatin 100,000 unit/gram topical 1 appl topical TID 30 days #5 grams 09/16/23 powder omeprazole 40 mg capsule,delayed 40 mg PO DAILY 30 days #30 caps 09/16/23 release topiramate 100 mg tablet 75 mg (0.75 x 100 mg) PO BID 30 09/16/23 days #45 tabs Allergies Allergy/AdvReac Type Severity Reaction Status Date / Time mirabegron [From Myrbetriq] Allergy Hallucinati Verified 02/24/24 14:34 ons Review of Systems Review of Systems: Constitutional: No fever, chills, fatigue, night sweats, weight changes ENT/Mouth: No ear pain, hearing loss, nasal congestion, sinus pain, rhinorrhea, sore throat Eyes: No eye pain, swelling, redness, vision changes, discharge Cardio: No chest pain, palpitations, MG, orthopnea, peripheral edema Pulm: No SOB, cough, sputum, wheezing, dyspnea, hemoptysis GI: No nausea, vomiting, hematemesis, abdominal pain, diarrhea, constipation, hematochezia, melena : No irregular bleeding, dysuria, frequency, urgency, hesitancy, hematuria, flank pain, urinary flow changes, urinary incontinence or retention MSK: No back pain, neck pain, joint pain, myalgias, +right ankle pain, +right shoulder pain Skin: No lesions, rashes Neuro: No weakness, numbness, paresthesias, LOC, dizziness, headache Psych: No anxiety/panic, depression, SI/HI, AH/VH All other systems reviewed and are negative. [facility] Past Medical History Attestation statement: The following information was validated with the patient. Source: old records reviewed and nursing notes reviewed Medical History Diabetes mellitus Chronic anticoagulation Social History Social History Household Members: None Housing: House Do you presently have visiting nurse or other home services: No Unable to assess alcohol history related to: Unable to respond Patient Tobacco Use Status: Never used Tobacco Smoked in Last 30 Days: No Use of substances other than those prescribed or required for medical reasons: No Advance Directives: No Advance Directives Information Provided: Yes service: No Physical Exam Vital Signs: Vital Signs: Last Vital Signs Temp 98.2 F 02/24/24 20:13 Pulse 95 02/24/24 20:13 Resp 21 H 02/24/24 20:13 BP 110/73 02/24/24 20:13 Pulse Ox 98 02/24/24 20:13 O2 Del Method Room Air 02/24/24 20:13 Oxygen Flow Rate 5 02/24/24 16:58 BMI result Body Mass Index 45.4 vital signs stable Const: General: cooperative, healthy appearing, comfortable and no acute distress Orientation/consciousness: patient oriented x3 Limitations: no limitations HEENT: Head: Yes normal to inspection, Yes No palpable skull fracture present, Yes normocephalic and Yes atraumatic Eyes: General: appearance normal, both eyes and all related structures Conjunctivae: conjunctivae normal Sclerae: sclerae normal Pupils: Equal, round and reactive pupils present Neck: Neck: Yes normal visual inspection, Yes full ROM and Yes no lymphadenopathy Chest: Chest palpation & inspection: normal inspection of the chest and normal palpation of entire chest wall Resp: Effort & Inspection: normal respiratory effort and able to speak in complete sentences Auscultation: clear to auscultation bilaterally Cardio: Rate: regular rate Rhythm: regular rhythm GI: Inspection: Yes normal to inspection and Yes obesity Back/Spine/Pelvis: Other: No midline spinous tenderness or step off deformity. No paraspinal muscle tenderness. Skin: General skin exam: no rashes or lesions noted Neuro: Other: No saddle anesthesia.?Sensation intact to light touch.?Neurovascular intact distally.? General: patient oriented x3 and Unable to assess gait Cranial nerves: Yes Equal, round and reactive pupils present Gait exam (Neuro): Unable to assess gait Extrem: Other: + deformity with edema to lateral aspect of right ankle. limited rom. sensation intact. 2+ dp pulses. unable to assess gait. + chronic diabetic wounds noted to toes of the right foot. wrapped with gauze. clean, dry, intact. Course Course Course Narrative: 1613-- discussed case with on-call ortho PA, Angelica Trevizo who, after reviewing radiographs, recommends reduction, splint and strict elevation with outpatient follow-up. Discussed this with my attending physician, Dr. Crowell, who will assist me with reduction and procedural sedation. Nursing staff informed. Patient will be transferred to main ED bed to be placed on lunchroom monitor. > discussed this with patient who was agreeable. Consent signed. 1741-- reduction performed with 90 mg of propofol for conscious sedation. RT at bedside. Dr. Crowell at bedside to assist. Patient tolerated the procedure well. No complications. Post-reduction films showing successful reduction of right ankle. Stirrup and posterior splint placed. Neurovascularly intact distally post splint placement. Full ROM to all toes. Patient alert and oriented/back to baseline after procedure. Vital signs are stable. > as patient lives alone and will not be able to ambulate, she will require case management/placement. I informed Angelica Trevizo that the patient will likely being staying in the ED for the next few days pending placement. She states that she will follow. Will obtain basic labs. Physician observation initiated pending disposition. Medications Administered Discontinued Medications Generic Name Dose Route Start Last Admin Trade Name Freq PRN Reason Stop Dose Admin Morphine Sulfate 2 mg 02/24/24 16:40 02/24/24 16:45 Morphine Sulfate 2 Mg/Ml Cartridge IVPUSH 02/24/24 16:41 2 mg ONCE ONE Administration Protocol Propofol 131.542 mg 02/24/24 16:27 02/24/24 17:03 Propofol 200 Mg/20 Ml Vial 1 mg/kg (131.542 mg) 02/24/24 16:28 90 mg IVPUSH Administration ONCE ONE Procedures Orthopedic Fracture Reduction Fracture #1: Time Out Performed: Yes Side: right Fracture Reduction Location: other (ankle) Analgesia: procedural sedation (propofol) Technique: direct manipulation and traction/counter-traction Post Reduction X-rays Demonstrate: anatomical reduction Post-reduction neuro exam: intact Post-reduction vascular exam: intact Splint Applied: Yes Patient Tolerated Procedure: well Orthopedic Joint Reduction Joint #1: Time Out Performed: Yes Side: right Joint Reduction Location: ankle Analgesia: procedural sedation Local Anesthesia: other anesthetic (Propofol) Amount of anesthesic used (mL): 90 Technique used: traction/counter-traction and direct manipulation Post-reduction neuro exam: intact Post-reduction vascular: intact Post Reduction X-Ray Obtained: Yes Post Reduction X-Ray Results: reduced Splint Applied: Yes Patient Tolerated Procedure: well Orthopedic Splinting/Casting Injury #1: Side: right Lower Extremity Injury Location: ankle Lower Extremity Immobilizer: posterior splint and stirrup splint Procedural Sedation Indication: fracture/dislocation reduction Presedation Evaluation: AOX3. Vital signs stable. ASA Class: II Mallampati Class: II Preparation: lunchroom monitor applied, pulse oximeter, capnometry used, supplemental O2 applied, reversal agents at bedside, suction/airway equipment at bedside and IV secured IV Propofol dose (mg): 90 Patient Tolerated Procedure: well Complications: none Medical Decision Making Medical Decision Making MDM Narrative: 73 year old female with pmhx significant for DM, MDD, borderline personality disorder, and atrial fibrillation on eliquis presents to the ED today via EMS for evaluation of right ankle pain/ swelling s/p mechanical fall occurring [employer]. deformity with edema to lateral aspect of right ankle. sensation intact. 2+ dp pulses. limited rom. unable to assess gait. small diabetic wounds noted to toes of right foot. wrapped with gauze. clean, dry, intact. Differential diagnosis includes closed fracture, dislocation, contusion. low suspicion for msk sprain/ strain, nv compromise, threat to limb, compartment syndrome. Plan for imaging, pain control, and re-evaluation. Differential Diagnosis Differential Diagnoses: The differential diagnosis associated with the presentation includes As above Admission/Observation Consideration of admission/observation: Escalation of care including admission/observation considered Consult Healthcare Provider Management of the patient was discussed with: Dietary Services Manager (Angelica Trevizo, ortho KYLE) Lab Data 02/24/24 18:07 02/24/24 18:07 Labs: Lab Results 02/24/24 02/24/24 Range/Units 18:02 18:07 WBC 7.7 (4.8-10.8) X10*3/uL RBC 4.16 L (4.20-5.50) X10*6/uL Hgb 11.7 L (12.0-16.0) g/dl Hct 35.7 L (37.0-47.0) % MCV 85.8 (80.0-98.0) fL MCH 28.1 (27.0-33.0) pg MCHC 32.8 (31.0-35.0) g/dl RDW 17.2 H (11.0-16.0) % Plt Count 231 D (160-400) X10*3/uL MPV 9.6 (9.4-12.3) fL Immature Gran % (Auto) 0.4 (0.0-0.4) % Neut % (Auto) 64.9 (45-73) % Lymph % (Auto) 24.4 (20-40) % [place] % (Auto) 8.0 (2-11) % Eos % (Auto) 1.8 (0-4) % Baso % (Auto) 0.5 (0-2) % Lymph # (Auto) 1.9 (1.2-4.9) X10*3/uL [place] # (Auto) 0.6 (0.1-1.2) X10*3/uL Eos # (Auto) 0.1 (0.0-0.4) X10*3/uL Baso # (Auto) 0.0 (0.0-0.2) X10*3/uL Abs Immat Gran (auto) 0.03 (0.00-0.03) X10*3/uL Absolute Neuts (auto) 5.0 (2.0-8.3) x10*3/uL Absolute Nucleated RBC 0.000 (0.0-0.012) X10*3/uL Nucleated RBC % (auto) 0.0 (0.0-0.2) /100WBC Sodium 144 (135-145) mmol/L Potassium 4.5 (3.3-5.1) mmol/L Chloride 108 (96-108) mmol/L Carbon Dioxide 26 (22-29) mmol/L Anion Gap 15 (12-20) BUN 16 (9-16) mg/dL Creatinine 0.96 (0.5-1.4) mg/dL Estim Creat Clear Calc 74.9 Estimated GFR 57 Random Glucose 85 (60-115) mg/dL Calcium 9.5 (8.4-10.2) mg/dL Total Bilirubin 0.4 (0.0-1.0) mg/dL AST 16 (5-31) U/L ALT 8 (0-31) U/L Alkaline Phosphatase 61 (39-117) U/L Total Protein 6.7 (6.5-8.0) g/dL Albumin 3.7 (3.5-5.0) g/dL Influenza Type A (PCR) NEGATIVE (Negative) Influenza Type B (PCR) NEGATIVE (Negative) RSV RNA Qual (PCR) NEGATIVE (Negative) SARS-CoV-2 RNA (RT-PCR) NEGATIVE (Negative) Independent Interpretation I performed an independent interpretation of an: Plain X-Ray Interpretation: X-ray right ankle (pre reduction) showing fracture and dislocation, agree with radiologist's interpretation. X-ray right foot showing fracture and dislocation of the right ankle, agree with radiologist's interpretation. X-ray right shoulder showing chronic degenerative changes, agree with radiologist's interpretation. X-ray right ankle (post reduction) showing successful reduction of trimalleolar fracture, agree with radiologist's interpretation. Radiology Impression Discussion of test interpretation with radiology: I have reviewed the radiologist's reading. Radiologist Impression: EXAMINATION: XR SHOULDER, RIGHT CLINICAL INFORMATION: Right shoulder pain after fall COMPARISON: None available. TECHNIQUE: AP external rotation, Grashey, scapular Y, and axillary views of the right shoulder. FINDINGS: Severe degenerative changes are present in the right shoulder with marked glenohumeral narrowing, sclerosis and osteophytes. No acute fracture or dislocation seen. Degenerative changes also seen at the right AC joint. XR/XR shoulder RT min 2V IMPRESSION: Severe degenerative changes in the right shoulder without acute fracture or dislocation. EXAMINATION: 1. Right ankle. 2. Right foot. CLINICAL INFORMATION: Fall. Deformity. COMPARISON: None. TECHNIQUE: 1. Right ankle. 2 views 2. Right foot. 2 views FINDINGS: 1. Right ankle. Trimalleolar fracture of the ankle with dislocation of the ankle joint.. There is an oblique fracture of the lateral malleolus, transverse fracture of the medial malleolus. Vertically oriented fracture through the posterior malleolus. The talus is dislocated laterally and posterior relative to the tibia. 2. Right foot. No fracture or dislocation of right foot. Small plantar calcaneal spur XR/XR foot RT min 3V IMPRESSION: 1. Right ankle. Trimalleolar fracture and dislocation of the ankle. 2. Right foot. No acute abnormality. EXAMINATION: XR ANKLE, RIGHT CLINICAL INFORMATION: Status post reduction COMPARISON: Multiple right foot and ankle radiographs earlier today TECHNIQUE: AP, lateral, and mortise views of the right ankle. FINDINGS: There has been reduction of the trimalleolar fracture/dislocation. The ankle mortise now appears in good position with some mild widening of the medial clear space. Again noted are fractures of the medial, lateral and posterior malleolus with only minimal displacement compared to the marked displacement seen previously. XR/XR ankle RT 2V IMPRESSION: Successful reduction of trimalleolar fracture/dislocation. Independent Historian Clinical information obtained from an independent historian. History obtained from or confirmed by: EMS External Record Review External record reviewed: Inpatient record, Office record, Outpatient record, Prior outpatient labs, Prior outpatient radiology, Primary care record and Outside ED record Prescription Management I considered prescription management with: Pain Medication Chronic Conditions Patient?s care impacted by: Diabetes Social Determinants Patient?s care significantly limited by Social Determinants of Health including: Other Social Determinant of Health Critical Care Time Critical Care Time Critical Care Time: Yes Total Critical Care Time: 120 Attestation: Critical care time in the amount of 120 minutes has been provided to the patient in terms of direct patient care, frequent reevaluation on conscious sedation, consultation with Orthopedics, review and interpretation of medical data and results, and management of potentially life-threatening conditions. This is all outside of any medical procedures. Discharge Plan Discharge Clinical Impression: Closed trimalleolar fracture of ankle Qualifiers: Encounter type: initial encounter Laterality: right Qualified Code(s): S82.851A - Displaced trimalleolar fracture of right lower leg, initial encounter for closed fracture Closed dislocation of right ankle Qualifiers: Encounter type: initial encounter Qualified Code(s): S93.04XA - Dislocation of right ankle joint, initial encounter Fall Qualifiers: Encounter type: initial encounter Qualified Code(s): W19.XXXA - Unspecified fall, initial encounter Patient Disposition: Still a Patient Prescriptions: No Action acetaminophen 325 mg Tablet 650 mg PO Q6H PRN (Reason: Pain, Mild (Pain Scale 1-3)) Qty: 30 0RF gabapentin 600 mg Tablet 300 mg PO BEDTIME 30 Days Qty: 15 0RF clonazepam 0.5 mg Tablet 0.5 mg PO DAILY PRN (Reason: Anxiety) 7 Days Qty: 7 2RF metoprolol tartrate 50 mg Tablet 50 mg PO BID 30 Days Qty: 60 0RF Protocol: Hold for SBP/HR < HOLD for SBP < : 90 HOLD for HR < : 60 lamotrigine 100 mg Tablet 100 mg PO DAILY 30 Days Qty: 30 0RF nystatin 100,000 unit/gram Powder 1 appl topical TID 30 Days Qty: 5 0RF Protocol: Apply to: Apply to: Abdominal folds and groin atorvastatin 40 mg tablet 40 mg PO DAILY 30 Days Qty: 30 0RF metformin 500 mg tablet 500 mg PO BID 30 Days Qty: 60 0RF amlodipine 2.5 mg tablet 2.5 mg PO DAILY 30 Days Qty: 30 0RF omeprazole 40 mg capsule,delayed release(DR/EC) 40 mg PO DAILY 30 Days Qty: 30 0RF lisinopril 40 mg tablet 40 mg PO DAILY 30 Days Qty: 30 0RF topiramate 100 mg tablet 75 mg PO BID 30 Days Qty: 45 0RF bupropion HCl 300 mg tablet extended release 24 hr 300 mg PO DAILY 30 Days Qty: 30 0RF duloxetine 60 mg capsule,delayed release(DR/EC) 120 mg PO QAM 30 Days Qty: 60 0RF Eliquis 5 mg tablet 5 mg PO BID Qty: 60 0RF Print Language: Tamazight
[2024-02-24] MEDS: Morphine Sulfate 2 MG/ML CARTRIDGE IVPUSH (16:45)
[2024-02-24] MEDS: propofoL 200 MG/20 ML VIAL 131.542 MG IVPUSH (17:03)
--- NOTE | 2024-02-24 17:18 | PC.NURSE ---
Moderate sedation of pts right ankle with MD Crowell and PAUL Norman. RT and tech in room as well. Pt monitored and tolerated procedure well, medicated per JAN. Vital signs remained stable. Right ankle in splint. Pt is alert and oriented, back to baseline. VSS.
[2024-02-24 18:13] LABS: MANUAL DIFF FLAG NO
[2024-02-24 18:18] LABS: Basophils Percent Auto 0.5 % (0-2); Eosinophils Absolute Auto 0.1 X10*3/uL (0.0-0.4); Eosinophils Percent Auto 1.8 % (0-4); Hematocrit 35.7 % (37.0-47.0); Hemoglobin 11.7 g/dl (12.0-16.0); Imm Gran Abs Auto 0.03 X10*3/uL (0.00-0.03); Imm Gran Pct Auto 0.4 % (0.0-0.4); Lymphocytes Absolute Auto 1.9 X10*3/uL (1.2-4.9); Lymphocytes Percent Auto 24.4 % (20-40); Mean Corpuscular HGB Conc 32.8 g/dl (31.0-35.0); Mean Corpuscular Hemoglobin 28.1 pg (27.0-33.0); Mean Corpuscular Volume 85.8 fL (80.0-98.0); Mean Platelet Volume 9.6 fL (9.4-12.3); Monocytes Absolute Auto 0.6 X10*3/uL (0.1-1.2); Neutrophils Percent Auto 64.9 % (45-73); Platelet Count 231 X10*3/uL (160-400); Red Blood Count 4.16 X10*6/uL (4.20-5.50); Red Cell Distribution Width 17.2 % (11.0-16.0); White Blood Count 7.7 X10*3/uL (4.8-10.8)
[2024-02-24 18:31] LABS: Alanine Aminotransferase 8 U/L (0-31); Albumin Level 3.7 g/dL (3.5-5.0); Alkaline Phosphatase 61 U/L (39-117); Anion Gap 15 (12-20); Aspartate Amino Transferase 16 U/L (5-31); Bilirubin Total 0.4 mg/dL (0.0-1.0); Blood Urea Nitrogen 16 mg/dL (9-16); Calcium 9.5 mg/dL (8.4-10.2); Carbon Dioxide 26 mmol/L (22-29); Chloride 108 mmol/L (96-108); Creatinine Clr Calc Pharmacy 74.9; Estimated Glomerular Filt Rate 57; Glucose Random 85 mg/dL (60-115); Potassium 4.5 mmol/L (3.3-5.1); Sodium 144 mmol/L (135-145); Total Protein 6.7 g/dL (6.5-8.0)
[2024-02-24 18:51] LABS: Influenza A PCR NEGATIVE (Negative); Influenza B PCR NEGATIVE (Negative); Resp Syncy Virus RNA Qual PCR NEGATIVE (Negative); SARS COV2 PCR INHOUSE NEGATIVE (Negative)
--- NOTE | 2024-02-24 20:46 | MHC.CM.ED ---
CM spoke with Natasha MILLER regarding patient plan of care. Per Natasha, patient will need surgical correction of the ankle fx and it could possibly be in the next few days. States that Ortho PA will see pt. Pt lives alone. Uses a walker. Lives at [facility] in [place]. Has 2 meals/day and housekeeping twice a month. Pt currently has [facility], but states her OT and PT have been recently d/c'd and she expects nursing to discharge her. She is a patient at the [facility] at [facility] for a chronic diabetic R foot wound. PCP is Erik Kim at the [facility] in [place]. Address and phone number verified. No HCP on file. HCP reviewed, completed and signed. Copies given. Uploaded into [employer] and [facility] [email or web address] / [email or web address]. HCP/sister Nicole Campo ([phone]). Order for PT consult requested. Referrals made locally for STR. Unsure at this time regarding patient's plan of care for surgical repair of FX R ankle. CM will follow for discharge planning.
--- NOTE | 2024-02-24 21:13 | PHA.MEDREC ---
Pharmacy Consult ? Medication Reconciliation Pharmacy has completed the medication reconciliation. Patient had a list of medications from home that was no completely up to date. Lamotrigene not on list from home, however patient reported taking the medication. Patient reported her 2 BP medications (lisinopril 40 mg and amlodipine 2.5 mg) were discontinued by her provider. Patient report duloxetine was decreased from 120 mg to 90 mg. Patient confirmed gabapentin dose at 300 mg AM and 600 mg PM. Reported metoprolol was increase from 25 mg to 50 mg. Talita Cunningham, PharmD
[2024-02-25] MEDS: Apixaban 5 MG TABLET PO ×2 (02:08→08:35)
[2024-02-25] MEDS: Gabapentin 300 MG CAPSULE 600 MG PO (02:08)
[2024-02-25] MEDS: Metoprolol Tartrate 50 MG TABLET PO ×2 (02:08→08:35)
[2024-02-25] MEDS: lamoTRIgine 100 MG TABLET 300 MG PO (02:09)
[2024-02-25] MEDS: Acetaminophen 325 MG TABLET 650 MG PO (02:09)
[2024-02-25] MEDS: Nystatin Powder 15 GM BOTTLE 1 APPL TOPICAL ×3 (02:10→15:10)
[2024-02-25 05:34] VITALS: BP 146/68; PULSE 81; RESP 20; TEMP 36.9; O2SAT 95
[2024-02-25 07:07] VITALS: BP 111/61; PULSE 77; RESP 17; TEMP 36.6; O2SAT 96
[2024-02-25] MEDS: Atorvastatin Calcium 40 MG TABLET PO (08:33)
[2024-02-25] MEDS: Cyanocobalamin (Vitamin B-12) 1,000 MCG TABLET 1000 MCG PO (08:33)
[2024-02-25] MEDS: Ascorbic Acid 500 MG TABLET PO (08:33)
[2024-02-25] MEDS: DULoxetine HCl 60 MG CAPSULE.DR PO (08:33)
[2024-02-25] MEDS: DULoxetine HCl 30 MG CAPSULE.DR PO (08:34)
[2024-02-25] MEDS: Gabapentin 300 MG CAPSULE PO (08:34)
[2024-02-25] MEDS: metFORMIN HCl 500 MG TABLET PO (08:34)
[2024-02-25] MEDS: Cholecalciferol (Vitamin D3) 25 MCG TABLET PO (08:34)
[2024-02-25] MEDS: buPROPion HCl XL 300 MG TAB.ER.24H PO (08:35)
[2024-02-25] MEDS: Omeprazole 40 MG CAPSULE.DR PO (08:35)
--- NOTE | 2024-02-25 08:37 | PC.NURSE ---
this RN resumed care of pt at this time. a&ox4. vss and up to date. pt c/o 12/20 right ankle pain at this time. pt states mediation administered by previous RN was effective. pt states pain increases w/ movement. medication administered per provider order. nystatin applied to skin folds on abdomen. redness noted to under skin folds. no open wounds noted. no foul smell noted. pt states slight discomfort. pt repositioned to promote comfort. purewick in place. no sob/wob noted. respirations even and unlabored. pt resting comfortably in stretcher in no apparent distress. plan of care ongoing. call solano placed within reach.
--- NOTE | 2024-02-25 08:45 | MHC.CM.ED ---
Addendum entered by Catia Roblero 02/25/24 10:28: PT eval completed. Short term rehab is recommended. Clinical updates sent to facilities still reviewing: [facility], [facility], [facility], [facility], [facility], [facility], [facility], [facility], [facility], [facility], [facility], [facility], [facility] and [facility] for [facility]. Patient will need [facility] PASRR Level 2. T/W already submitted for this. Addendum entered by Catia Roblero 02/25/24 09:09: Received notification from Dariela of [facility] that patient is active with their agency. Return referral made in [facility] so they can follow for d/c needs. Original Note: Patient remains in ER. Physical therapy eval is pending. Per Kathleen Dominguez, patient is to be non-weight bearing on the right ankle. It is anticipated patient will need surgery within the next 2 weeks depending on swelling and comorbidities. After surgery, it is anticipated patient will be non-weight bearing for at least 6 weeks. Continue to monitor for d/c needs.
--- NOTE | 2024-02-25 12:27 | MHC.CM.ED ---
Addendum entered by Catia Roblero 02/25/24 13:37: [facility] PASRR Level 2 obtained. Patient can leave at 330pm. Rena MCKOY booked. [facility] with chart. Patient, Louisa CANO and Rosy MILLER aware. Original Note: [facility], [facility], [facility], [facility], [facility] and [facility] are able to offer a bed. These options were discussed with patient. Patient accepts bed at [facility]. [facility] aware. Waiting to obtain [facility] PASRR Level 2. Patient aware [facility] will cover 80% for SNF and patient will be billed 20%. Continue to monitor for d/c needs.
[2024-02-25 13:25] VITALS: BP 112/67; PULSE 92; RESP 19; O2SAT 96
--- NOTE | 2024-02-25 13:32 | PC.NURSE ---
pt c/o bladder discomfort and being unable to void x 3 days. bladder scan obtained displaying 416mL. provider notified/aware. straight catheterization performed. 450ml of dark yellow urine noted immediately post output. urine obtained/sent to lab. pt tolerated well. pt repositioned/sitting upright in no apparent distress. respirations remain even and unlabored. plan of care ongoing. call [facility] placed within reach.
[2024-02-25 13:58] LABS: Appearance Urine Clear; Color Urine Dark Yellow; Glucose Urine UA Negative (Negative); Leukocyte Esterase Urine Negative (Negative); Nitrite Urine Negative (Negative); PH 5.5 (5.0-9.0); Specific Gravity - Urine >= 1.030 (1.005-1.025); UMIC TRIGGER UACC YES; Urine Blood Negative (Negative); Urine Ketones Trace mg/dL (Negative); Urine Protein 30 (1+) mg/dL (Neg-Trace)
[2024-02-25 14:07] LABS: Bacteria Urine None Seen (None Seen); Calcium Oxalate Crystals Urine Present; Other Crystals Urine Present; RBC Urine 0-2 /HPF (0-2); Squamous Epithelial Cell Urine 0-2 /HPF (0-2); WBC Urine 0-5 /HPF (0-5)
[2024-02-25 14:37] VITALS: BP 98/56; PULSE 87; RESP 18; TEMP 36.8; O2SAT 97
--- NOTE | 2024-02-25 15:11 | PC.NURSE ---
nystatin applied to groin/skin fold area on abdomen. pt currently c/o 2/10 pain in the right ankle. pt continues to wait for transportation to [facility] at this time. respirations remain even and unlabored. plan of care ongoing. call [facility] placed within reach.
== END 2024-02-25 16:26 ==
PROVIDERS: Physician Assistant Medical; Emergency Provider Emergency Medicine; PCP Family Medicine
DX: S82.851A Displaced trimalleolar fracture of right lower leg, initial encounter for closed fracture (principal); E11.9 Type 2 diabetes mellitus without complications; I48.91 Unspecified atrial fibrillation; Z79.01 Long term (current) use of anticoagulants; X50.1XXA Overexertion from prolonged static or awkward postures, initial encounter; Y93.9 Activity, unspecified; Y92.9 Unspecified place or not applicable; Y99.9 Unspecified external cause status; Z03.818 Encounter for observation for suspected exposure to other biological agents ruled out
CPT/HCPCS: 0241U; 27818; 51701; 73030; 73600; 73610; 73630; 80053; 81001; 85025; 96374; 97162; 99285; J2270; J2704

== ENCOUNTER 2024-02-26 10:10 | Outpatient (RCR) | payer MEDICARE, OTHER, SELFPAY | END 2024-03-05 15:00 | disposition home or self-care (01) | LOC: HO.WCC 10:10 | PROVIDERS: PCP Family Medicine; Visit Provider Surgery | DX: E11.621 Type 2 diabetes mellitus with foot ulcer (principal); L97.522 Non-pressure chronic ulcer of other part of left foot with fat layer exposed; L97.512 Non-pressure chronic ulcer of other part of right foot with fat layer exposed; Z87.891 Personal history of nicotine dependence; I10 Essential (primary) hypertension; E11.42 Type 2 diabetes mellitus with diabetic polyneuropathy; Z79.84 Long term (current) use of oral hypoglycemic drugs; F42.4 Excoriation (skin-picking) disorder | CPT/HCPCS: 11042; 97597 ==

== ENCOUNTER 2024-03-04 09:08 | Outpatient (REF) | payer MEDICARE, OTHER, SELFPAY ==
--- NOTE | ~2024-03-04 | XR_ITS ---
EXAMINATION: XR ANKLE, RIGHT CLINICAL INFORMATION: Pain in unspecified ankle and joints of unspecified foot in splint. COMPARISON: 02/24/2024. TECHNIQUE: AP, lateral, and mortise views of the right ankle. FINDINGS: Overlying cast limits detailed visualization. Redemonstration of trimalleolar fracture/dislocation. Increased asymmetric widening of the medial clear space with increased displacement of overlying medial malleolar fracture fragment. Soft tissue swelling and ankle joint effusion. Impacted, oblique mildly displaced fracture of posterior malleolus redemonstrated. Increased impaction lateral displacement of lateral malleolus with override of fracture fragments. Increased lateral subluxation of talus relative to tibia. XR/XR ankle RT min 3V IMPRESSION: Redemonstration of trimalleolar fracture/dislocation with increased displacement of fracture fragments, as detailed above. This exam was presented today, 03/10/2024, for interpretation. Please refer to separate report for images of 03/09/2024 for more detailed evaluation.
== END 2024-03-04 09:09 | disposition home or self-care (01) ==
LOC: HO.HOSX 09:08
PROVIDERS: Visit Provider Physician Assistant
DX: E11.621 Type 2 diabetes mellitus with foot ulcer (principal); L97.519 Non-pressure chronic ulcer of other part of right foot with unspecified severity; I48.91 Unspecified atrial fibrillation; R60.9 Edema, unspecified; M25.571 Pain in right ankle and joints of right foot; Z91.81 History of falling
CPT/HCPCS: 73610; 99202

== ENCOUNTER 2024-03-04 11:22 | Outpatient (AMB) | payer MEDICARE, OTHER, SELFPAY ==
--- NOTE | 2024-03-04 11:40 | A.OFFVIS_ITS ---
Intake Visit Reasons: FC - Right ankle fx, DOI 02/24/24 Intake Note: Ashley is a 73 year old female who presents today for a evaluation of her right ankle fx, DOI 02/24/24. She reports when she was attempting to get into the car, she felt her right ankle twist causing her to fall out to the ground. Currently her pain is a 0/10on the pain scale. Patient is unable to put full weight on her right side. She also hit her right shoulder which increased her pain since she has a history of arthritis. Currently is not having any pain at the moment. Allergies mirabegron [From Myrbetriq] Allergy (Verified 03/04/24 11:43) Hallucinations HPI HPI FC - Right ankle fx, DOI 02/24/24: Details: 73-year-old female who presents in the office today, as a new patient, for an evaluation of right ankle pain and edema. Patient presented to the ED on 02/24/2024 status post a mechanical fall. She admits that while attempting to get into the car, she felt her right ankle twist causing her to fall to the ground. X-rays were obtained. The patient was reduced and placed into a stirrup and posterior splint. Patient lives alone and will not be able to ambulate, she will require case management/placement, per ED note. While in the office today the patient reports she was attempting to get into the car when she felt her ankle twist leading to her fall. Claims her pain is a 0/10 in the office today. She is unable to bear weight on the right lower extremity. Patient reports increased pain in the right shoulder due to having arthritis that was irritated by the injury. However, she states she does not have pain in the office today. Patient is being treated by Wound Care for a right foot wound. Patient has a significant medical history of diabetes mellitus. Patient ambulates with a walker at baseline, per ED note. [facility] Medical History Diabetes mellitus Chronic anticoagulation Social History Household Members: None Housing: House Do you presently have visiting nurse or other home services: No Unable to assess alcohol history related to: Unable to respond Patient Tobacco Use Status: Never used Tobacco service: No Review of Systems Const All systems reviewed & are unremarkable except as noted in HPI and below Physical Exam Const General: cooperative and no acute distress Orientation/consciousness: patient oriented x3 Resp Effort & Inspection: normal respiratory effort and able to speak in complete sentences Cardio Peripheral pulses: Peripheral pulses 2+ throughout Skin General skin exam: no rashes or lesions noted Neuro General: patient oriented x3 Extrem Other: Right ankle: Scattered fracture blisters throughout anterier aspect of the distal tibia. No signs of infection at this time. Circumferential edema. Te nderness to palpation medial and lateral malleolus. Slightly able to flex and extend all digits. Diabetic ulcers on the second and third digits on the dorsal aspect at the nail beds. There are no nails noted on the second or third digits. Sensation is reported intact. Pedal pulse intact. Assessment & Plan Assessment & Plan (1) Diabetic ulcer of right foot: Comment: Being treated by wound care Code(s): E11.621 - Type 2 diabetes mellitus with foot ulcer; L97.519 - Non-pressure chronic ulcer of other part of right foot with unspecified severity Category: Medical Qualifiers: Diabetes mellitus type: type 2 Diabetic foot ulcer location: toe Non- pressure ulcer stage: unspecified non-pressure ulcer stage Qualified Code(s): E11.621 - Type 2 diabetes mellitus with foot ulcer; L97.519 - Non-pressure chronic ulcer of other part of right foot with unspecified severity (2) Diabetes mellitus: Code(s): E11.9 - Type 2 diabetes mellitus without complications Category: Medical (3) Atrial fibrillation: Comment: on Eliquis Code(s): I48.91 - Unspecified atrial fibrillation Category: Medical Qualifiers: Atrial fibrillation type: unspecified Qualified Code(s): I48.91 - Unspecified atrial fibrillation Plan Ms. Hurtado is a 73-year-old female who presents in the office today, as a new patient, for an evaluation of right ankle pain and edema. Patient presented to the ED on 02/24/2024 status post a mechanical fall. She admits that while attempting to get into the car, she felt her right ankle twist causing her to fall to the ground. X-rays were obtained. The patient was reduced and placed into a stirrup and posterior splint. Patient lives alone and will not be able to ambulate, she will require case management/placement, per ED note. While in the office today the patient reports she was attempting to get into the car when she felt her ankle twist leading to her fall. Claims her pain is a 0/10 in the office today. She is unable to bear weight on the right lower extremity. Patient reports increased pain in the right shoulder due to having arthritis that was irritated by the injury. However, she states she does not have pain in the office today. Patient is being treated by Wound Care for a right foot wound. Patient has a significant medical history of diabetes mellitus. Patient ambulates with a walker at baseline, per ED note. Case was discussed, as well as imaging, with Dr. Paulino who was in agreement that this patient should be treated non-operatively. This is due to her commodities of diabetes, diabetic ulcers, and Afib on Eliquis. She was placed in a posterior splint. This was explained to the patient and she demonstrates understanding. She will remain non-weight bearing. I did recommend for her to continue to be followed by Wound Care for the diabetic ulcers. I advised the Rehab ([facility]) she is attending to monitor her glucose levels. Follow up will be in one week for a wound check and possible transition into a cast, or sooner if needed. X-rays of the right ankle which were obtained while in the office today and were reviewed by me, Angelica Trevizo PA-C, revealed a tri-malleolar fracture. X-rays of the right ankle, post reduction, obtained on 02/24/2024, revealed: Successful reduction of trimalleolar fracture/dislocation. Orders: Orders XR ankle RT min 3V Today M25.579 - Pain in unspecified ankle and joints of unspecified foot Patient Instructions: Scribed by Shaniqua Esquivel medical insurance collector, for Angelica Trevizo PA-C on 03/04/2024 at 11:29 am, EST. Coding Level of Care Code New Pt Level 4 (10946) Diagnoses Diabetic ulcer of toe of right foot associated with type 2 diabetes mellitus, unspecified ulcer stage E11.621; L97.519 Diabetes mellitus type: type 2 Diabetic foot ulcer location: toe Non-pressure ulcer stage: unspecified non-pressure ulcer stage Diabetes mellitus E11.9 Atrial fibrillation, unspecified type I48.91 Atrial fibrillation type: unspecified
== END 2024-03-04 12:18 | disposition home or self-care (01) ==
PROVIDERS: Visit Provider Physician Assistant
DX: S82.851A Displaced trimalleolar fracture of right lower leg, initial encounter for closed fracture (principal); E11.621 Type 2 diabetes mellitus with foot ulcer; L97.519 Non-pressure chronic ulcer of other part of right foot with unspecified severity; I48.91 Unspecified atrial fibrillation
CPT/HCPCS: 99204

== ENCOUNTER 2024-03-05 12:33 | Outpatient (REF) | payer MEDICARE, OTHER, SELFPAY | END 2024-03-05 12:34 | disposition home or self-care (01) | LOC: HO.HOSX 12:33 | PROVIDERS: Visit Provider Physician Assistant | DX: Z13.89 Encounter for screening for other disorder (principal) ==

== ENCOUNTER 2024-03-09 10:46 | Outpatient (REF) | payer MEDICARE, OTHER, SELFPAY ==
--- NOTE | ~2024-03-09 | XR_ITS ---
EXAMINATION: XR ANKLE, RIGHT CLINICAL INFORMATION: Pain in unspecified ankle and joints of unspecified foot. COMPARISON: 03/04/2024, 03/09/2024 at 12:51 PM. TECHNIQUE: AP, lateral, and mortise views of the right ankle. FINDINGS: Redemonstration of previously identified complex trimalleolar fracture dislocation following placement of cast with displacement, overriding and impaction of trimalleolar fracture fragments and medial subluxation of the distal tibia/medial malleolus relative to the heel/distal fibular complex. Soft tissue swelling with joint effusion. XR/XR ankle RT min 3V IMPRESSION: Redemonstration of previously identified complex trimalleolar fracture dislocation following placement of cast. Images presented today 03/16/2024 for interpretation.
--- NOTE | ~2024-03-09 | XR_ITS ---
EXAMINATION: XR ANKLE, RIGHT CLINICAL INFORMATION: Pain in unspecified ankle and joints of unspecified foot. COMPARISON: 03/04/2024, 02/24/2024. TECHNIQUE: AP, lateral, and mortise views of the right ankle. FINDINGS: The cast has been removed. There has been interval worsening of previously identified trimalleolar fracture/dislocation with increased dislocation, overriding and impaction of fracture fragments and medial subluxation of the distal tibia/medial malleolus relative to the heel/distal fibular complex. Soft tissue swelling with joint effusion. Redemonstration of impacted, oblique, displaced fracture of the posterior malleolus. Redemonstration of impacted fracture of the lateral malleolus with lateral displacement and overriding of fracture fragments. XR/XR ankle RT min 3V IMPRESSION: Interval worsening of previously identified trimalleolar fracture/dislocation with increased dislocation, overriding and impaction of fracture fragments and medial subluxation of the distal tibia/medial malleolus relative to the heel/distal fibular complex. Images presented today March 16, 2024 for interpretation.
== END 2024-03-09 10:47 | disposition home or self-care (01) ==
LOC: HO.HOSX 10:46
PROVIDERS: Visit Provider Physician Assistant
DX: Z13.89 Encounter for screening for other disorder (principal)
CPT/HCPCS: 73610

== ENCOUNTER 2024-03-09 12:45 | Outpatient (AMB) | payer MEDICARE, OTHER, SELFPAY ==
--- NOTE | 2024-03-09 13:16 | A.OFFVIS_ITS ---
Intake Visit Reasons: OV-RT ankle fx, DOI 02/24/24-Splint change Intake Note: Ashley is a 73 year old female who presents today for a splint change s/p right ankle fx, DOI 02/24/24. Patient reports that she is having pain in her ankle. She express that her foot got stuck under neath a table and she pulled her foot out and she started to feel. Denies numbness and tingling. Allergies mirabegron [From Myrbetriq] Allergy (Verified 03/09/24 13:21) Hallucinations HPI HPI OV-RT ankle fx, DOI 02/24/24-Splint change: Details: 73-year-old female who presents in the office today for a splint change and follow up of a right tri-malleolar fracture, which occurred on 02/24/2024 status post a mechanical fall. I last saw the patient in the office on 03/04/2024 when she was placed in the splint for conservative treatment due to comorbidities. She was to remain non-weight bearing. It was recommended for her to be seen by wound care for the ulcer on her foot. I advised the Rehab ([facility]) she is attending to monitor her glucose levels. While in the office the patient reports pain in the ankle. She expressed her foot got stuck underneath a table and she pulled her foot out. She denies numbness or tingling. Patient states she has her diabetes under control. She confirms sores on her bilateral feet. She states this is due to her picking at them. She denies diminished sensation in the bilateral feet. Patient confirms spasming in the right lower extremity pulling on the right ankle. Patient has no current A1c on record. Of note: Patient presents in the office today from the [facility] facility not wearing the splint. The office received a phone call this morning at 9:32 am and a message was sent from their provider, Hetal, at [facility] stating the patient took everything off and is complaining of ankle pain. They expressed concern for the patient after taking the splint off and the patient was offered an appointment for the same day to be seen. She presented to the office today, 02/11/2024 for a 12:45 pm appointment. Patient reports the ankle had to have dislocated over the weekend. Patient has an allergy history, as follows: -Mirabegron; hallucinations Patient is currently taking, as follows: -Acetaminophen 650 mg PO Q6H PRN -Ascorbic acid 500 mg PO Daily -Atorvastatin 40 mg PO daily -Cholecalciferol 25 mcg PO daily -Cyanocobalamin 1,000 mcg PO daily -Duloxetine 30 mg PO daily -Duloxetine 60 mg PO daily -Apixaban (Eliquis) 5 mg PO Daily -Gabapentin 300 mg PO daily -Gabapentin 600 mg PO bedtime -Lamotrigine 300 mg PO bedtime -Metformin 500 mg PO BID -Metoprolol tartrate 50 mg PO BID -Nystatin 1 application topical TID -Omeprazole 40 mg PO daily Patient has a medical history, as follows: -Diabetic ulcers on right foot; being treated by wound care. -Afib on Eliquis chonically -Borderline personality disorder -Diabetes mellitus -Suicide attempt X2 -Major depressive disorder Patient has no known surgical history. Patient has a social history, as follows: -Currently at the [facility]. ext. [phone]. [facility] Medical History (Updated 03/10/24 @ 13:39 by Jessica Reilly RN) Elevated cholesterol Anxiety SELMA treated with BiPAP Diabetic ulcer of right foot Atrial fibrillation Borderline personality disorder Major depressive disorder Diabetes mellitus Chronic anticoagulation Surgical History (Updated 03/10/24 @ 13:40 by Jessica Reilly RN) Hx of esophagogastroduodenoscopy Hx of colonoscopy History of carpal tunnel release of both wrists Hx of bilateral cataract extraction Hx of bilateral breast reduction surgery Hx of hysterectomy Social History Household Members: None Housing: Prison Housing Other:: [place] independent living Do you presently have visiting nurse or other home services: Yes Unable to assess alcohol history related to: Unable to respond Patient Tobacco Use Status: Former Tobacco user Quit Date: 50 yrs ago service: No Review of Systems Const All systems reviewed & are unremarkable except as noted in HPI and below Physical Exam Const General: cooperative, healthy appearing, comfortable, no acute distress, well developed, alert and awake Orientation/consciousness: patient oriented x3 HEENT Head: Yes normal to inspection, Yes normocephalic and Yes atraumatic Eyes General: appearance normal, both eyes and all related structures Neck Neck: Yes normal visual inspection and Yes no lymphadenopathy Resp Effort & Inspection: normal respiratory effort and able to speak in complete sentences Cardio Rate: regular rate Peripheral pulses: Peripheral pulses 2+ throughout GI Inspection: Yes normal to inspection Palpation (GI): Soft to palpation Skin General skin exam: no rashes or lesions noted Neuro General: patient oriented x3 Extrem Other: Right ankle: Obvious deformities. Ecchymosis along the anterior aspect of the tibial shaft. Resolving small fracture blisters along the medial distal tibia. S ome mild superficial skin breakdown along the anterior lateral aspect of the ankle. Diabetic ulcers on the second and third digits. No surrounding erythema or drainage. No signs of infection. Medial medialis is extremely prominent. There are no current open areas of open fracture. Sensation is diminished at baseline due to diabetes. Pedal pulse intact. Able to move all digits. Psych Mental Status: mental status grossly normal Assessment & Plan Assessment & Plan (1) Trimalleolar fracture of right ankle: Code(s): S82.851A - Displaced trimalleolar fracture of right lower leg, initial encounter for closed fracture Category: Medical Qualifiers: Encounter type: subsequent encounter Fracture healing: with nonunion Fracture type: closed Qualified Code(s): S82.851K - Displaced trimalleolar fracture of right lower leg, subsequent encounter for closed fracture with nonunion (2) Diabetic ulcer of right foot: Comment: Being treated by wound care Code(s): E11.621 - Type 2 diabetes mellitus with foot ulcer; L97.519 - Non-pressure chronic ulcer of other part of right foot with unspecified severity Category: Medical Qualifiers: Diabetes mellitus type: type 2 Diabetic foot ulcer location: toe Non- pressure ulcer stage: unspecified non-pressure ulcer stage Qualified Code(s): E11.621 - Type 2 diabetes mellitus with foot ulcer; L97.519 - Non-pressure chronic ulcer of other part of right foot with unspecified severity (3) Diabetes mellitus: Code(s): E11.9 - Type 2 diabetes mellitus without complications Category: Medical (4) Atrial fibrillation: Comment: on Eliquis Code(s): I48.91 - Unspecified atrial fibrillation Category: Medical Qualifiers: Atrial fibrillation type: unspecified Qualified Code(s): I48.91 - Unspecified atrial fibrillation Plan Ms. Hurtado is a 73-year-old female who presents in the office today for a splint change and follow up of a right tri-malleolar fracture, which occurred on 02/24/2024 status post a mechanical fall. I last saw the patient in the office on 03/04/2024 when she was placed in the splint for conservative treatment due to comorbidities. She was to remain non-weight bearing. It was recommended for her to be seen by wound care for the ulcer on her foot. I advised the Rehab ([facility]) she is attending to monitor her glucose levels. While in the office the patient reports pain in the ankle. She expressed her foot got stuck underneath a table and she pulled her foot out. She denies numbness or tingling. Patient states she has her diabetes under control. She confirms sores on her bilateral feet. She states this is due to her picking at them. She denies diminished sensation in the bilateral feet. Patient confirms spasming in the right lower extremity pulling on the right ankle. Patient has no current A1c on record. Of note: Patient presents in the office today from the [facility] facility not wearing the splint. The office received a phone call this morning at 9:32 am and a message was sent from their provider, Hetal, at [facility] stating the patient took everything off and is complaining of ankle pain. They expressed concern for the patient after taking the splint off and the patient was offered an appointment for the same day to be seen. She presented to the office today, 02/11/2024 for a 12:45 pm appointment. Patient reports the ankle had to have dislocated over the weekend. Patient has an allergy history, as follows: -Mirabegron; hallucinations Patient is currently taking, as follows: -Acetaminophen 650 mg PO Q6H PRN -Ascorbic acid 500 mg PO Daily -Atorvastatin 40 mg PO daily -Cholecalciferol 25 mcg PO daily -Cyanocobalamin 1,000 mcg PO daily -Duloxetine 30 mg PO daily -Duloxetine 60 mg PO daily -Apixaban (Eliquis) 5 mg PO Daily -Gabapentin 300 mg PO daily -Gabapentin 600 mg PO bedtime -Lamotrigine 300 mg PO bedtime -Metformin 500 mg PO BID -Metoprolol tartrate 50 mg PO BID -Nystatin 1 application topical TID -Omeprazole 40 mg PO daily Patient has a medical history, as follows: -Diabetic ulcers on right foot; being treated by wound care. -Afib on Eliquis chonically -Borderline personality disorder -Diabetes mellitus -Suicide attempt X2 -Major depressive disorder Patient has no known surgical history. Patient has a social history, as follows: -[facility] ext[phone] Dr. Paulino was available to see the patient with me while in the office today. A collaborative treatment plan was made. The patient will be sent as a direct admit to the hospital. She underwent an attempted reduction in the office of the right ankle with the assistance of Dr. Paulino. Dr. Paulino applied a custom made splint in an attempt to hold the right ankle in reduction. We will hold the Eliquis in order for her to undergo a right ankle ORIF depending on skin condition. I discussed in detail the procedure and what to expect pre and post operatively. We discussed the risks, benefits and alternatives to the surgery and the rehabilitation course. The risks include infection, bleeding, nerve injury, ongoing pain, swelling, and stiffness, perioperative risk of injury to bones and soft tissues, and blood clots. I have answered all questions and with their understanding they have consented to move forward with a right ankle open versus closed reduction and internal fixation to be performed by Dr. Santiago Paulino. Follow-up will be at the post operative appointment, or sooner if needed. Of note: I called to [facility] of [facility]?s status for direct admissions. Spoke with the manager of school who states she continued to remove the splint and KAITLIN wrap. Clothing Pattern Preparer reports the patient was weight bearing on the right lower extremity. She reports the patient has Psychiatric issues and was non-compliant. First x-rays obtained, pre-reduction attempt in office, 03/09/2024: X-rays of the right ankle which were obtained while in the office today and were reviewed by me, Angelica Trevizo PA-C, revealed a trimalleolar fracture dislocation that has displaced since the last imaging that was obtained on , 03/04/2024. Second x-rays obtained, post attempted reduction in office, 03/09/2024: X-rays of the right ankle which were obtained while in the office today and were reviewed by me, Angelica Trevizo PA-C, revealed slight improvement in alignment of a trimalleolar ankle dislocation. Orders: Orders XR ankle RT min 3V 03/09/24 M25.579 - Pain in unspecified ankle and joints of unspecified foot XR ankle RT min 3V 03/09/24 M25.579 - Pain in unspecified ankle and joints of unspecified foot Patient Instructions: Scribed by Shaniqua Esquivel medical administrative technician, for Angelica Trevizo KYLE on 03/09/2024 at 12:47 pm, EST. Coding Level of Care Code Global (37223) Diagnoses Closed trimalleolar fracture of right ankle with nonunion, subsequent encounter S82.851K Encounter type: subsequent encounter Fracture healing: with nonunion Fracture type: closed Diabetic ulcer of toe of right foot associated with type 2 diabetes mellitus, unspecified ulcer stage E11.621; L97.519 Diabetes mellitus type: type 2 Diabetic foot ulcer location: toe Non-pressure ulcer stage: unspecified non-pressure ulcer stage Diabetes mellitus E11.9 Atrial fibrillation, unspecified type I48.91 Atrial fibrillation type: unspecified
== END 2024-03-09 14:34 | disposition home or self-care (01) ==
PROVIDERS: Visit Provider Physician Assistant
DX: S82.851K Displaced trimalleolar fracture of right lower leg, subsequent encounter for closed fracture with nonunion (principal); E11.621 Type 2 diabetes mellitus with foot ulcer; L97.519 Non-pressure chronic ulcer of other part of right foot with unspecified severity; I48.91 Unspecified atrial fibrillation
CPT/HCPCS: 99024

== ENCOUNTER 2024-03-09 15:23 | Outpatient (BNV) | payer MEDICARE, OTHER, SELFPAY | END 2024-03-10 07:00 | PROVIDERS: Admitting Provider Physician Assistant; Visit Provider Internal Medicine | DX: Z01.810 Encounter for preprocedural cardiovascular examination (principal) | CPT/HCPCS: 93306 ==

== ENCOUNTER 2024-03-09 15:23 | Inpatient (IN) | payer MEDICARE, OTHER, SELFPAY ==
--- NOTE | 2024-03-09 | ECG_ITS ---
Test Reason : urbano, pre op Blood Pressure : / mmHG Vent. Rate : 089 BPM Atrial Rate : 000 BPM P-R Int : 000 ms QRS Dur : 090 ms QT Int : 374 ms P-R-T Axes : 000 007 038 degrees QTc Int : 455 ms Atrial fibrillation Nonspecific ST abnormality Abnormal ECG When compared with ECG of 15-SEP-2023 22:10, No significant change was found Referred By: Fay Boggs Electronically Signed By:WILLY SALAZAR
--- NOTE | ~2024-03-09 | FL_ITS ---
EXAMINATION: XR FLUOROSCOPY WITH IMAGES CLINICAL INFORMATION: Right ankle ORIF COMPARISON: 03/11/2024 TECHNIQUE: Fluoroscopy Supervised By: Dr. Paulino. Fluoroscopy Time: 0.0 minutes Cumulative Dose: 0.90978 mGy. DAP: 0.65318 Gycm2. Images: 2. FINDINGS: Frontal and lateral intraoperative fluoroscopic views of the right ankle are obtained during ORIF of a displaced trimalleolar fracture. FL/FL guidance in OR IMPRESSION: Intraoperative fluoroscopic guidance is provided during ORIF of a trimalleolar fracture of the right ankle. Please see the patient's operative report for full procedural details.
--- NOTE | ~2024-03-09 | FL_ITS ---
EXAMINATION: XR FLUOROSCOPY WITH IMAGES CLINICAL INFORMATION: Right ankle closed reduction COMPARISON: 03/30/2024 TECHNIQUE: Fluoroscopy Supervised By: Dr. Paulino. Fluoroscopy Time: 0.1 minute. Cumulative Dose: 0.374 mGy. DAP: 0.45645 Gycm2. Images: 2. FINDINGS: Examination is not diagnostic 2 images obtained by C-arm camera FL/FL guidance in OR IMPRESSION: Right ankle closed reduction
--- NOTE | ~2024-03-09 | FL_ITS ---
EXAMINATION: XR FLUOROSCOPY WITH IMAGES CLINICAL INFORMATION: Orthopedic hardware removal right ankle. COMPARISON: None available. TECHNIQUE: Fluoroscopy Supervised By: Dr. Paulino. Fluoroscopy Time: 0.2. Cumulative Dose: 0.610 mGy. DAP: 0.0106 Gycm2. Images: 2. FINDINGS: 2 images provided with overlying cast material again demonstrate previously noted trimalleolar fracture of the ankle. Please refer to operative report for more detailed evaluation. FL/FL guidance in OR IMPRESSION: 2 images provided with overlying cast material again demonstrate previously noted trimalleolar fracture of the ankle. Please refer to operative report for more detailed evaluation.
--- NOTE | ~2024-03-09 | FL_ITS ---
EXAMINATION: XR FLUOROSCOPY WITH IMAGES CLINICAL INFORMATION: External fixation right ankle fracture. COMPARISON: Radiographs dated 03/09/2024. TECHNIQUE: Fluoroscopy Supervised By: Dr. Santiago Paulino. Fluoroscopy Time: 0.3 minutes. Cumulative Dose: 1.37 mGy. DAP: 0.0239 mGym2. Images: 2. FINDINGS: Frontal and lateral intraoperative fluoroscopic views of the right ankle are obtained during ORIF of a displaced trimalleolar fracture. FL/FL guidance in OR IMPRESSION: Intraoperative fluoroscopic guidance is provided during ORIF of a trimalleolar fracture of the right ankle. Please see the patient's Operative Report for full procedural details.
--- NOTE | ~2024-03-09 | FL_ITS ---
EXAMINATION: XR FLUOROSCOPY WITH IMAGES CLINICAL INFORMATION: External fixation right ankle fracture. COMPARISON: Radiographs dated 03/09/2024. TECHNIQUE: Fluoroscopy Supervised By: Dr. Santiago Paulino. Fluoroscopy Time: 0.4 minutes. Cumulative Dose: 1.11 mGy. DAP: 0.0194 mGym2. Images: 3. FINDINGS: 3 intraoperative fluoroscopic views of the right ankle are obtained during ORIF of a displaced trimalleolar fracture. FL/FL guidance in OR IMPRESSION: Intraoperative fluoroscopic guidance is provided during ORIF of a trimalleolar fracture of the right ankle. Please see the patient's Operative Report for full procedural details.
--- NOTE | ~2024-03-09 | US_ITS ---
EXAMINATION: US arterial duplex BI w/ CORINNA CLINICAL INFORMATION: peripheral neuropathy TECHNIQUE: Real-time ultrasound and Doppler techniques (integrating B-mode 2-D vascular images, Doppler spectral analysis and color flow Doppler imaging) were utilized to interrogate the lower extremities. COMPARISON: None FINDINGS: CORINNA attempted, though cannot be completely related to patient pain. RIGHT LEG: Common femoral artery: 136 cm/s, Triphasic Profunda femoris artery: 65 cm/s, biphasic Superficial femoral artery (proximal): 108 cm/s, Triphasic Superficial femoral artery (mid): 108 cm/s, Triphasic Superficial femoral artery (distal): 71 cm/s, Triphasic Popliteal artery: 73 cm/s, Triphasic Posterior tibial artery: 110 cm/s, Triphasic LEFT LEG: Common femoral artery: 133 cm/s, Triphasic Profunda femoris artery: 45 cm/s, Triphasic Superficial femoral artery (proximal): 89 cm/s, Triphasic Superficial femoral artery (mid): 63 cm/s, Triphasic Superficial femoral artery (distal): 86 cm/s, Triphasic Popliteal artery: 61 cm/s, Triphasic Posterior tibial artery: 63 cm/s, Triphasic There is a Ying's cyst in the left popliteal fossa measuring 4.7 x 0.8 x 1.7 cm. US/US arterial duplex BI w/ CORINNA IMPRESSION: 1. There is no evidence of any hemodynamically significant lower extremity arterial disease by waveform or duplex Doppler criteria at rest. 2. Left 4.7 cm Ying's cyst.
--- OUTSIDE RECORDS SUMMARY | 2024-03-09 15:25 | XMS_ITS | Continuity of Care Document ---
Author Organization [facility] Address [address], [address] [place] [address]- Care Team Providers Care Lean Consultant Name Role Phone Erik Kim DO Primary Care Physician [phone] Encounter 02/24/24 - 03/02/24 [facility] [place] [address], [address] [place] [address]- Attending Physician: Erik Kim DO Admitting Physician: Erik Kim DO Referring Physician: Erik Kim DO Allergies, Adverse Reactions, Alerts Substance Reaction Severity Status Peggy Chavarria Active Immunizations Given and Recorded Vaccine Date Status Refusal Reason pneumococcal 20-valent conjugate vaccine 10/30/23 Given pneumococcal 20-valent conjugate vaccine 07/25/22 Recorded RSV vaccine preF3, recombinant 10/15/23 Recorded influenza virus vaccine, inactivated 08/02/23 Avery rded influenza virus vaccine, inactivated 08/06/22 Avery rded influenza virus vaccine, inactivated 08/21/21 Avery rded influenza virus vaccine, inactivated 08/09/20 Avery rded influenza virus vaccine, inactivated 07/05/19 Avery rded influenza virus vaccine, inactivated 08/08/18 Avery rded influenza virus vaccine, inactivated 08/09/17 Avery rded SARS-CoV-2(COVID-19)mRNA-LNP vac([id number]) 08/02/23 Recorded Influenza Virus Vaccine (oldterm) 1 08/06/22 Recor [...] Influenza Virus Vaccine (oldterm) 08/26/11 Recorde d [id number] 12y+ bivalent booster vax 08/06/22 Recorded pneumococcal 13-valent vaccine 6 07/25/22 Recorded pneumococcal 13-valent vaccine 7 12/14/18 Recorded pneumococcal 13-valent vaccine 12/14/18 Recorded pneumococcal 13-valent vaccine 8 06/06/16 Recorded SARS-CoV-2 mRNA (mgolera-lzzv-ijuwf) vax 03/13/22 Recorded SARS-CoV-2 mRNA (grzfgwm-ciyu-emmij) vax 9 08/21/21 Recorded SARS-CoV-2 mRNA (wplhdiq-jstb-xpvst) vax 10 01/13/21 Recorded SARS-CoV-2 (COVID-19) mRNA BNT-162b2 vac 09/03/21 Recorded SARS-CoV-2 (COVID-19) Ad26 vaccine 01/13/21 Record ed zoster vaccine, inactivated 03/13/20 Recorded zoster vaccine, inactivated 12/09/19 Recorded Zoster Vaccine Live 11 12/09/19 Recorded Zoster Vaccine Live 03/13/12 Recorded tetanus/diphtheria/pertussis, acel(Tdap) 10/21/11 Recorded Pneumococcal Vaccine (oldterm) 11/08/06 Given pneumococcal 23-valent vaccine 12 11/08/06 Recorde d 1Result Comment: Unit: Unknown Route: Intramuscular Typing Element Machine Operator: Sanofi Pasteur 2Result Comment: Route: Intramuscular Typing Element Machine Operator: Sanofi Pasteur 3Result Comment: Unit: Unknown 4Result Comment: Unit: Unknown 5Result Comment: Unit: Unknown 6Result Comment: Unit: Unknown Route: Intramuscular Typing Element Machine Operator: Pfizer 7Result Comment: Unit: Unknown Route: Intramuscular Typing Element Machine Operator: Wyeth 8Result Comment: Unit: Unknown 9Result Comment: Route: Intramuscular Typing Element Machine Operator: Sanofi Pasteur 10Result Comment: Unit: Unknown Route: Intramuscular Typing Element Machine Operator: Suleiman 11Result Comment: Route: Intramuscular Typing Element Machine Operator: GlaxoSmithKline 12Result Comment: Unit: Unknown Medications acetaminophen 325 mg oral tablet TAKE 2 TABLETS (650 MG)ORALLY EVERY 6 HOURS NEEDED FOR PAIN, MILD (PAIN SCALE 1-3) Start Date: 09/22/23 Status: Ordered atorvastatin 40 mg oral tablet 1 tablet = 40 mg, By Mouth, Daily, # 90 tablet, 3 Refills, Maintenance, 10/27/23 11:06:00 EST, Tablet, [facility]/pharmacy #[id number], Partial fill upon patient request if the prescription is for a schedule II opioid drug., 170.18, cm, 10/04/23 12:18:00 EST, Heig... Start Date: 10/27/23 Status: Ordered buPROPion 300 mg/24 hours (XL) oral tablet, extended release = 300 mg, By Mouth, Daily, 0 Refills, Maintenance, 01/19/24 16:42:00 EDT, XL Tablet, Partial fill upon patient request if the prescription is for a schedule II opioid drug. Start Date: 01/19/24 Status: Ordered Cymbalta 60 mg oral enteric coated capsule See Instructions, 2 capsule By Mouth Daily, 0 Refills, Maintenance, EC Capsule Start Date: 10/20/12 Status: Ordered Eliquis 5 mg oral tablet See Instructions, TAKE 1 TABLET BY MOUTH TWICE A DAY, # 180 tablet, 0 Refills, Maintenance, 12/23/23 17:15:00 EST, [id number], 170.18, cm, 12/17/23 10:17:00 EST, Height, 127.2, kg, 10/02/23 3:00:00 EST, Dry Weight Start Date: 12/23/23 Status: Ordered estradiol 0.1 mg/g vaginal cream = 1 Gm, Vaginally, Daily at bedtime, # 30 Gm, 11 Refills, Maintenance, 11/17/23 9:45:00 EST, [facility]/pharmacy #[id number], Partial fill upon patient request if the prescription is for a schedule II opioid drug., 170.18, cm, 10/30/23 14:25:00 EST, Height, 127.2,... Start Date: 11/17/23 Status: Ordered Four-wheeled walker with seat and handbrakes Four-wheeled walker with seat and handbrakes, See Instructions, # 1 kit, Refills 0, Tot. Refills 0,Maintenance, Dx: Parkinsonism (G20), 04/28/23 11:55:00 EDT, Supply Start Date: 04/28/23 Status: Ordered gabapentin 300 mg oral capsule See Instructions, 1 capsule in am 2 at bedtime, # 270 capsule, Refills 3, Tot. Refills 3, Maintenance, 10/27/23 11:08:00 EST, Instructions Replace Required Details, Route to Pharmacy Electronically, [facility]/pharmacy #[id number], Partial fill upon patient reque... Start Date: 10/27/23 Status: Ordered Gemtesa 75 mg oral tablet 1 tablet = 75 mg, By Mouth, Daily, # 30 tablet, 11 Refills, Maintenance, 11/17/23 9:45:00 EST, [facility]/pharmacy #[id number], Partial fill upon patient request if the prescription is for a schedule II opioid drug., 170.18, cm, 10/30/23 14:25:00 EST, Height, 127.... Start Date: 11/17/23 Status: Ordered hydrOXYzine hydrochloride 25 mg oral tablet 1 tablet = 25 mg, By Mouth, 4 times a day, 0 Refills, Maintenance, 09/22/23 15:28:00 EST, Partial fill upon patient request if the prescription is for a schedule II opioid drug. Start Date: 09/22/23 Status: Ordered Knee Support See Instructions, # 2 each, Maintenance, wear knee brace for OA both knees, 09/29/23 15:26:00 EST, Supply Start Date: 09/29/23 Status: Ordered Lamictal 100 mg oral tablet 3 tab, By Mouth, Daily at bedtime, 0 Refills, Maintenance, 10/20/12 11:23:38 EST, Tablet Start Date: 10/20/12 Status: Ordered meclizine 25 mg oral tablet 1 tablet = 25 mg, By Mouth, 3 times a day, PRN as needed for nausea/vomiting, for 30 days, TAKE 1 TABLET BY MOUTH THREE TIMES A DAY NEEDED, # 30 tablet, 1 Refills, Acute 04/01/24 21:50:00 EDT, 02/01/24 21:50:00 EDT, Tablet, [facility]/pharmacy #[id number], Part... Start Date: 02/01/24 Stop Date: 04/01/24 Status: Ordered metFORMIN 500 mg oral tablet 1 tablet = 500 mg, By Mouth, 2 times a day, # 180 tablet, 2 Refills, Maintenance, 12/23/23 17:13:00EST, Tablet, [facility]/pharmacy #[id number], Partial fill upon patient request if the prescription is for a schedule II opioid drug., 170.18, cm, 12/17/23 10:17:00... Start Date: 12/23/23 Status: Ordered metoprolol 50 mg oral tablet 50 mg, 1, tablet, By Mouth, 2 times a day, # 180 tablet, Refills 3, Tot. Refills 3, Maintenance, 10/27/23 11:05:00 EST, Route to Pharmacy Electronically, [facility]/pharmacy #[id number], Partial fill upon patientrequest if the prescription is for a schedule II op... Start Date: 10/27/23 Status: Ordered nystatin topical 219460 u/gm powder See Instructions, APPLY TOPICALLY 3 TIMES A DAY TO RASH, # 60 Gm, 1 Refills, Maintenance, 02/02/24 7:47:00 EDT, [facility] STORE [id number], 30, APPLY TOPICALLY 3 TIMES A DAY TO RASH, 170, cm, 01/19/24 14:19:00 EDT, Height, 136, kg, 01/17/24 9:30:00 EST, Dry Weight Start Date: 02/02/24 Status: Ordered omeprazole 40 mg oral enteric coated capsule 1 capsule = 40 mg, By Mouth, Daily, # 90 capsule, 3 Refills, Maintenance, 12/23/23 17:13:00 EST, ECCapsule, [facility]/pharmacy #[id number], Partial fill upon patient request if the prescription is for a schedule II opioid drug., 170.18, cm, 12/17/23 10:17:00 EST... Start Date: 12/23/23 Status: Ordered Problem List Condition Confirmation Course Effective Dates Status H ealth Status Informant Anemia Confirmed Active Atrial fibrillation Confirmed Active Martinez esophagus Confirmed Active Osteoarthritis of both knees Confirmed Active Borderline personality disorder Confirmed Active Chronic Pain Confirmed 10/20/12 Active Chronic rhinosinusitis Confirmed Active Ulcer of toe due to diabetes Confirmed Active Wound of foot Confirmed Active Rectocele Confirmed Active Muscular deconditioning Confirmed Active Essential hypertension Confirmed Active GERD - Gastro-esophageal reflux disease Confirmed Active Hallucination Confirmed Active Fecal incontinence Confirmed Active Diabetic foot infection Confirmed Active Major depression in partial remission Confirmed Active Urinary incontinence, mixed Confirmed Active Obstructive sleep apnea on CPAP Confirmed Active AF (paroxysmal atrial fibrillation) Confirmed Active Medicare annual wellness visit, subsequent Confirmed Active Peripheral arterial disease Confirmed Active Recurrent falls Confirmed Active Resting tremor Confirmed Active Severe obesity Confirmed Active Sleep apnea Confirmed 10/20/12 Active Suicide attempt 1 Confirmed Active Toxic metabolic encephalopathy 2 Confirmed Active Diabetes type 2, controlled Confirmed Active Type 2 diabetes mellitus with peripheral neuropathy Confirmed Active intentional overdose on Klonopin and tramadol 2Secondary to tramadol and Klonopin overdose Social History Social History Type Response Smoking Status Former smoker, quit more than 30 days ago; Other: quit 1973 6 yrs toal 11/13 6; Number of years: 6; Total pack years: 2; entered on: 07/03/23 Sex Female Patient Care team information Care Team Personnel Name: Armani Reid DO Position: [facility] Renal MD Member Role: Lifetime Consulting Physician Address: Address: [address] [place] [address] [address] [facility] [place] [address]- Name: Maynor Lyons RN Position: S RN Member Role: Primary Care Nurse Name: Erik Kim DO Position: [facility] Physician - Primary Care Member Role: PCP Address: Address: [address] [place] [address]- Name: Dianna Frost RN Position: [facility] RN Member Role: Primary Care Nurse Care Team Related Persons Name: LORENA HARRISON Address: home [address] [place] [address] Name: LAYNE TREADWELL Address: home [address] [place] [address]
--- OUTSIDE RECORDS SUMMARY | 2024-03-09 15:25 | XMS_ITS | Continuity of Care Document ---
Author Organization [facility] Address [address] [place] [address]- Care Team Providers Care Sleep Manager Name Role Phone Erik Kim DO Primary Care Physician Encounter [facility] Date(s): 09/25/23 - 12/07/[address] [address] Attending Physician: Erik Kim DO Admitting Physician: [...] virus vaccine, inactivated 08/09/17 Avery rded SARS-CoV-2(COVID-19)mRNA-LNP vac([id number]) 08/02/23 Recorded Influenza Virus Vaccine (oldterm) 1 [...] Influenza Virus Vaccine (oldterm) 08/26/11 Recorde d [id number] 12y+ bivalent booster vax 08/06/22 Recorded pneumococcal 13-valent vaccine 6 07/25/22 Recorded pneumococcal 13-valent vaccine 7 12/14/18 Recorded pneumococcal 13-valent vaccine 12/14/18 Recorded pneumococcal 13-valent vaccine 8 06/06/16 Recorded SARS-CoV-2 mRNA (smeckby-gpac-siyer) vax 03/13/22 Recorded SARS-CoV-2 mRNA (eanwnrj-hsgi-djxsp) vax 9 08/21/21 Recorded SARS-CoV-2 mRNA (fvhnxtw-ubbx-vajpk) vax 10 01/13/21 Recorded SARS-CoV-2 (COVID-19) mRNA BNT-162b2 vac 09/03/21 Recorded SARS-CoV-2 (COVID-19) Ad26 vaccine 01/13/21 Record ed zoster vaccine, inactivated 03/13/20 Recorded zoster vaccine, inactivated 12/09/19 Recorded Zoster Vaccine Live 11 12/09/19 Recorded Zoster Vaccine Live 03/13/12 Recorded tetanus/diphtheria/pertussis, acel(Tdap) 10/21/11 Recorded Pneumococcal Vaccine (oldterm) 11/08/06 Given pneumococcal 23-valent vaccine 12 11/08/06 Recorde d 1Result Comment: Unit: Unknown Route: Intramuscular Product Technology Scientist: Sanofi Pasteur 2Result Comment: Route: Intramuscular Product Technology Scientist: Sanofi Pasteur 3Result Comment: Unit: Unknown 4Result Comment: Unit: Unknown 5Result Comment: Unit: Unknown 6Result Comment: Unit: Unknown Route: Intramuscular Product Technology Scientist: Pfizer 7Result Comment: Unit: Unknown Route: Intramuscular Product Technology Scientist: Wyeth 8Result Comment: Unit: Unknown 9Result Comment: Route: Intramuscular Product Technology Scientist: Sanofi Pasteur 10Result Comment: Unit: Unknown Route: Intramuscular Product Technology Scientist: Re5ult 11Result Comment: Route: Intramuscular Product Technology Scientist: GlaxoSmithKline 12Result Comment: Unit: Unknown Medications acetaminophen 325 mg oral tablet TAKE 2 TABLETS (650 MG)ORALLY EVERY 6 HOURS NEEDED FOR PAIN, MILD (PAIN SCALE 1-3) Start Date: 09/22/23 Status: Ordered amLODIPine 2.5 mg oral tablet 1 tablet, By Mouth, Daily, # 90 tablet, 0 Refills, Maintenance, 11/12/23 12:11:00 EST, [id number], 170.18, cm, 10/30/23 14:25:00 EST, Height, 127.2, kg, 10/02/23 3:00:00 EST, Dry Weight Start Date: 11/12/23 Status: Ordered atorvastatin 40 mg oral tablet 1 tablet = 40 mg, By Mouth, Daily, # 90 tablet, 3 Refills, Maintenance, 10/27/23 11:06:00 EST, Tablet, [facility]/pharmacy #[id number], Partial fill upon patient request if the prescription is for a schedule II opioid drug., 170.18, cm, 10/04/23 12:18:00 EST, Heig... Start Date: 10/27/23 Status: Ordered buPROPion 300 mg/24 hours (XL) oral tablet, extended release 0 Refills, Maintenance, 09/22/23 15:22:00 EST, Partial fill upon patient request if the prescription is for a schedule II opioid drug. Start Date: 09/22/23 Status: Ordered clonazePAM 0.5 mg oral tablet 0.5 tablet = 0.25 mg, By Mouth, Daily, PRN Anxiety, 0 Refills, Maintenance, 10/02/23 0:44:00 EST, Tablet, Partial fill upon patient request if the prescription is for a schedule II opioid drug. Start Date: 10/02/23 Status: Ordered clonazePAM 0.5 mg oral tablet = 0.5 mg, By Mouth, Daily at bedtime, 0 Refills, Maintenance, 10/04/23 10:28:00 EST, Tablet, Partial fill upon patient request if the prescription is for a schedule II opioid drug. Start Date: 10/04/23 Status: Ordered Cymbalta 60 mg oral enteric [...] opioid drug. Start Date: 07/29/22 Status: Ordered estradiol 0.1 mg/g vaginal cream = 1 Gm, Vaginally, Daily at bedtime, # 30 Gm, 11 Refills, Maintenance, 11/17/23 9:45:00 EST, [facility]/pharmacy #[id number], Partial fill upon patient request if [...] Replace Required Details, Route to Pharmacy Electronically, [facility]/pharmacy #[id number], Partial fill upon patient reque... Start Date: 10/27/23 Status: Ordered Gemtesa 75 mg oral tablet 1 tablet = 75 mg, By Mouth, Daily, # 30 tablet, 11 Refills, Maintenance, 11/17/23 9:45:00 EST, [facility]/pharmacy #[id number], Partial fill upon patient request if [...] EST, Tablet Start Date: 10/20/12 Status: Ordered lisinopril 40 mg oral tablet 0 Refills, Maintenance, 09/22/23 15:29:00 EST, Partial fill upon patient request if the prescription is for a schedule II opioid drug. Start Date: 09/22/23 Status: Ordered loperamide 2 mg oral capsule 2 mg, 1, capsule, By Mouth, Every 4 hours, Refills 0, Maintenance, 09/22/23 15:30:00 EST, Partial fill upon patient request if the prescription is for a schedule II opioid drug. Start Date: 09/22/23 Status: Ordered meclizine 25 mg oral tablet TAKE 1 TABLET BY MOUTH THREE TIMES A DAY NEEDED Start Date: 10/01/23 Status: Ordered Metformin = 500 mg, By Mouth, 2 times a day, 0 Refills, Maintenance, 12/18/21 10:35:00 EST, Partial fill uponpatient request if the prescription is for a schedule II opioid drug. Start Date: 12/18/21 Status: Ordered metoprolol 25 mg oral tablet 50 mg, By Mouth, 2 times a day, # 180 tablet, Refills 0, Maintenance, 07/29/22 9:17:00 EDT, Partialfill upon patient request if the prescription is for a schedule II opioid drug. Start Date: 07/29/22 Status: Ordered metoprolol 50 mg oral tablet 50 mg, 1, tablet, By Mouth, 2 times a day, # 180 tablet, Refills 3, Tot. Refills 3, Maintenance, 10/27/23 11:05:00 EST, Route to Pharmacy Electronically, [facility]/pharmacy #[id number], Partial fill upon patientrequest if the prescription is for a schedule II op... Start Date: 10/27/23 Status: Ordered Milk of Magnesia = 1,200 mg, By Mouth, 3 times a day, 0 Refills, Maintenance, 09/22/23 15:30:00 EST, Partial fill upon patient request if the prescription is for a schedule II opioid drug. Start Date: 09/22/23 Status: Ordered nystatin topical [id number] u/gm powder 1 application, Topically, 3 times a day, to rash, # 60 Gm, 0 Refills, Maintenance, 10/27/23 11:02:00 EST, [id number], Partial fill upon patient request if the prescription is for a schedule II opioid drug., 1 application Topically 3 ti... Start Date: 10/27/23 Status: Ordered omeprazole 40 mg oral enteric coated capsule 1 capsule = 40 mg, By Mouth, Daily, 0 Refills, Maintenance, EC Capsule Start Date: 10/20/12 Status: Ordered Vitamin B12 0 Refills, Maintenance, [...] disease Confirmed Active Fecal incontinence Confirmed Active Diabetic [...] Team Personnel Name: Armani Reid DO Position: [facility] Renal MD Member Role: Lifetime Consulting Physician Address: Address: [address] [place] [address] [address] [facility] [place] [address]- Name: Erik Kim DO Position: [facility] Physician - Primary Care Member Role: PCP Address: Address: [address] [place] [address]- [place] Care Team Related Persons Name: LORENA HARRISON Address: home [address] [place] [address] Name: LAYNE TREADWELL Address: [address] [place] [address]
--- OUTSIDE RECORDS SUMMARY | 2024-03-09 15:25 | XMS_ITS | Continuity of Care Document ---
Author Organization [facility] Address [address] [place] [address]- Care Team Providers Care Cia Agent Name Role Phone Erik Kim DO Primary Care Physician [facility]counter [facility] Date(s): 09/22/23 - 12/26/23 [facility] Adult [address] [place] [address]- Attending Physician: Erik Kim DO Allergies, Adverse [...] virus vaccine, inactivated 08/09/17 Avery rded SARS-CoV-2(COVID-19)mRNA-LNP vac([id number]) 08/02/23 Recorded Influenza Virus Vaccine (oldterm) 1 [...] Influenza Virus Vaccine (oldterm) 08/26/11 Recorde d [id number] 12y+ bivalent booster vax 08/06/22 Recorded pneumococcal 13-valent vaccine 6 07/25/22 Recorded pneumococcal 13-valent vaccine 7 12/14/18 Recorded pneumococcal 13-valent vaccine 12/14/18 Recorded pneumococcal 13-valent vaccine 8 06/06/16 Recorded SARS-CoV-2 mRNA (wukewrh-yure-wfmrg) vax 03/13/22 Recorded SARS-CoV-2 mRNA (qlziudq-pfni-qvexc) vax 9 08/21/21 Recorded SARS-CoV-2 mRNA (cqgvdtg-redl-nvrcw) vax 10 01/13/21 Recorded SARS-CoV-2 (COVID-19) mRNA BNT-162b2 vac 09/03/21 Recorded SARS-CoV-2 (COVID-19) Ad26 vaccine 01/13/21 Record ed zoster vaccine, inactivated 03/13/20 Recorded zoster vaccine, inactivated 12/09/19 Recorded Zoster Vaccine Live 11 12/09/19 Recorded Zoster Vaccine Live 03/13/12 Recorded tetanus/diphtheria/pertussis, acel(Tdap) 10/21/11 Recorded Pneumococcal Vaccine (oldterm) 11/08/06 Given pneumococcal 23-valent vaccine 12 11/08/06 Recorde d 1Result Comment: Unit: Unknown Route: Intramuscular Anime Artist: Sanofi Pasteur 2Result Comment: Route: Intramuscular Anime Artist: Sanofi Pasteur 3Result Comment: Unit: Unknown 4Result Comment: Unit: Unknown 5Result Comment: Unit: Unknown 6Result Comment: Unit: Unknown Route: Intramuscular Anime Artist: Pfizer 7Result Comment: Unit: Unknown Route: Intramuscular Anime Artist: Wyeth 8Result Comment: Unit: Unknown 9Result Comment: Route: Intramuscular Anime Artist: Sanofi Pasteur 10Result Comment: Unit: Unknown Route: Intramuscular Anime Artist: Suleiman 11Result Comment: Route: Intramuscular Anime Artist: GlaxoSmithKline 12Result Comment: Unit: Unknown Medications acetaminophen 325 mg oral tablet TAKE 2 TABLETS (650 MG)ORALLY EVERY 6 HOURS NEEDED FOR PAIN, MILD (PAIN SCALE 1-3) Start Date: 09/22/23 Status: Ordered amLODIPine 2.5 mg oral tablet 1 tablet, By Mouth, Daily, # 90 tablet, 0 Refills, Maintenance, 11/12/23 12:11:00 EST, [id number], 170.18, cm, 10/30/23 14:25:00 EST, Height, 127.2, kg, 10/02/23 3:00:00 EST, Dry Weight Start Date: 11/12/23 Status: Ordered atorvastatin 40 mg oral tablet 1 tablet = 40 mg, By Mouth, Daily, # 90 tablet, 3 Refills, Maintenance, 10/27/23 11:06:00 EST, [facility]t, [id number], Partial fill upon patient request [...] Refills, Maintenance, 12/23/23 17:15:00 EST, [id number], 170.18, cm, 12/17/23 10:17:00 EST, Height, 127.2, kg, 10/02/23 3:00:00 EST, Dry Weight Start Date: 12/23/23 Status: Ordered Eliquis 5 mg oral tablet [...] Gm, 11 Refills, Maintenance, 11/17/23 9:45:00 EST, [facility]/pharmacy #[id number], Partial fill upon patient request [...] Replace Required Details, Route to Pharmacy Electronically, [facility]/pharmacy #[id number], Partial fill upon patient reque... Start Date: 10/27/23 Status: Ordered Gemtesa 75 mg oral tablet 1 tablet = 75 mg, By Mouth, Daily, # 30 tablet, 11 Refills, Maintenance, 11/17/23 9:45:00 EST, [id number], Partial fill upon patient request [...] opioid drug. Start Date: 12/18/21 Status: Ordered metFORMIN 500 mg oral tablet 1 tablet = 500 mg, By Mouth, 2 times a day, # 180 tablet, 2 Refills, Maintenance, 12/23/23 17:13:00EST, Tablet, [facility]/pharmacy #[id number], Partial fill upon patient request if the prescription is for a schedule II opioid drug., 170.18, cm, 12/17/23 10:17:00... Start Date: 12/23/23 Status: Ordered metoprolol 25 mg oral tablet [...] 10/27/23 11:05:00 EST, [id number] Partial fill upon patientrequest if the prescription is for a schedule II op... Start Date: 10/27/23 Status: Ordered Milk of Magnesia = 1,200 mg, By Mouth, 3 times a day, 0 Refills, Maintenance, 09/22/23 15:30:00 EST, Partial fill upon patient request if the prescription is for a schedule II opioid drug. Start Date: 09/22/23 Status: Ordered nystatin topical [id number] u/gm powder See Instructions, APPLY TOPICALLY 3 TIMES A DAY TO RASH, # 60 Gm, 0 Refills, Maintenance, 12/23/23 17:15:00 EST, [facility], 30, APPLY TOPICALLY 3 TIMES A DAY TO RASH, 170.18, cm, 12/17/23 10:17:00 EST, Height, 127.2, kg, 10/02/23 3:00:00 EST, Dr... Start Date: 12/23/23 Status: Ordered nystatin topical [id number] u/gm powder 1 application, Topically, 3 times a day, to rash, # 60 Gm, 0 Refills, Maintenance, 10/27/23 11:02:00 EST, Powder, [facility]/pharmacy #[id number], Partial fill upon patient request if the prescription is for a schedule II opioid drug., 1 application Topically 3 ti... Start Date: 10/27/23 Status: Ordered omeprazole 40 mg oral enteric coated capsule 1 capsule = 40 mg, By Mouth, Daily, # 90 capsule, 3 Refills, Maintenance, 12/23/23 17:13:00 EST, ECCapsule, [facility]/pharmacy #[id number], Partial fill upon patient request if the prescription is for a schedule II opioid drug., 170.18, cm, 12/17/23 10:17:00 EST... Start Date: 12/23/23 Status: Ordered omeprazole 40 mg oral enteric [...] Team Personnel Name: Armani Reid DO Position: [facility] Renal MD Member Role: Lifetime Consulting Physician Address: Address: [address] [place] [address] [address] [facility] [place] [address]- Name: Erik Kim DO Position: [facility] Physician - Primary Care Member Role: PCP Address: Address: [address] [facility] [place] [address]- Care Team Related Persons Name: LORENA HARRISON Address: home [address] [place] [address] Name: LAYNE TREADWELL Address: home [address] [place] [address]
--- OUTSIDE RECORDS SUMMARY | 2024-03-09 15:26 | XMS_ITS | Continuity of Care Document ---
Author Organization [facility] Address [address] [place] [address]- Care Team Providers Care Protection Officer Name Role Phone Erik Kim DO Primary Care Physician [facility] Date[facility]): 12/17/23 - 12/24/23 [facility] [address] [place] [address]- Attending Physician: Suresh Montoya MD Admitting Physician: Suresh Montoya MD Referring Physician: Suresh Montoya MD Allergies, Adverse Reactions, Alerts Substance Reaction Severity Status Osmarxin Chavarria Active Immunizations Given and Recorded Vaccine [...] virus vaccine, inactivated 08/09/17 Avery rded SARS-CoV-2(COVID-19)mRNA-LNP vac([id number]) 08/02/23 Recorded Influenza Virus Vaccine (oldterm) 1 [...] Influenza Virus Vaccine (oldterm) 08/26/11 Recorde d [id number] 12y+ bivalent booster vax 08/06/22 Recorded pneumococcal 13-valent vaccine 6 07/25/22 Recorded pneumococcal 13-valent vaccine 7 12/14/18 Recorded pneumococcal 13-valent vaccine 12/14/18 Recorded pneumococcal 13-valent vaccine 8 06/06/16 Recorded SARS-CoV-2 mRNA (lcfmiin-bicu-fdmzo) vax 03/13/22 Recorded SARS-CoV-2 mRNA (tubjrtj-feaq-ptxpq) vax 9 08/21/21 Recorded SARS-CoV-2 mRNA (sfljmbu-qxrm-pyjyh) vax 10 01/13/21 Recorded SARS-CoV-2 (COVID-19) mRNA BNT-162b2 vac 09/03/21 Recorded SARS-CoV-2 (COVID-19) Ad26 vaccine 01/13/21 Record ed zoster vaccine, inactivated 03/13/20 Recorded zoster vaccine, inactivated 12/09/19 Recorded Zoster Vaccine Live 11 12/09/19 Recorded Zoster Vaccine Live 03/13/12 Recorded tetanus/diphtheria/pertussis, acel(Tdap) 10/21/11 Recorded Pneumococcal Vaccine (oldterm) 11/08/06 Given pneumococcal 23-valent vaccine 12 11/08/06 Recorde d 1Result Comment: Unit: Unknown Route: Intramuscular Furniture Duster: Sanofi Pasteur 2Result Comment: Route: Intramuscular Furniture Duster: Sanofi Pasteur 3Result Comment: Unit: Unknown 4Result Comment: Unit: Unknown 5Result Comment: Unit: Unknown 6Result Comment: Unit: Unknown Route: Intramuscular Furniture Duster: Pfizer 7Result Comment: Unit: Unknown Route: Intramuscular Furniture Duster: Wyeth 8Result Comment: Unit: Unknown 9Result Comment: Route: Intramuscular Furniture Duster: Sanofi Pasteur 10Result Comment: Unit: Unknown Route: Intramuscular Furniture Duster: Suleiman 11Result Comment: Route: Intramuscular Furniture Duster: GlaxoSmithKline 12Result Comment: Unit: Unknown Medications acetaminophen 325 mg oral tablet TAKE 2 TABLETS (650 MG)ORALLY EVERY 6 HOURS NEEDED FOR PAIN, MILD (PAIN SCALE 1-3) Start Date: 09/22/23 Status: Ordered amLODIPine 2.5 mg oral tablet 1 tablet, By Mouth, Daily, # 90 tablet, 0 Refills, Maintenance, 11/12/23 12:11:00 EST, [id number], 170.18, cm, 10/30/23 14:25:00 EST, Height, 127.2, [...] Refills, Maintenance, 12/23/23 17:15:00 EST, [id number], 170.18, cm, 12/17/23 10:17:00 EST, Height, 127.2, [...] Gm, 11 Refills, Maintenance, 11/17/23 9:45:00 EST, [facility]/pharmacy #[id number], Partial fill upon patient request if [...] Replace Required Details, Route to Pharmacy Electronically, [facility]/pharmacy #[id number], Partial fill upon patient reque... Start Date: 10/27/23 Status: Ordered Gemtesa 75 mg oral tablet 1 tablet = 75 mg, By Mouth, Daily, # 30 tablet, 11 Refills, Maintenance, 11/17/23 9:45:00 EST, [facility]/pharmacy #[id number], Partial fill upon patient request if [...] tablet, 2 Refills, Maintenance, 12/23/23 17:13:00EST, Tablet, [facility]/pharmacy #[id number], Partial fill upon patient request if [...] 10/27/23 11:05:00 EST, Route to Pharmacy Electronically, [facility]/pharmacy #[id number], Partial fill upon patientrequest if the prescription is for a schedule II op... Start Date: 10/27/23 Status: Ordered Milk of Magnesia = 1,200 mg, By Mouth, 3 times a day, 0 Refills, Maintenance, 09/22/23 15:30:00 EST, Partial fill upon patient request if the prescription is for a schedule II opioid drug. Start Date: 09/22/23 Status: Ordered nystatin topical 783730 u/gm powder See Instructions, APPLY TOPICALLY 3 TIMES A DAY TO RASH, # 60 Gm, 0 Refills, Maintenance, 12/23/23 17:15:00 EST, [facility] STORE [facility]92, 30, APPLY TOPICALLY 3 TIMES A DAY TO RASH, 170.18, cm, 12/17/23 10:17:00 EST, Height, 127.2, kg, 10/02/23 3:00:00 EST, DrAlejandro.. Start Date: 12/23/23 Status: Ordered nystatin topical 131929 u/gm powder 1 application, Topically, 3 times a day, to rash, # 60 Gm, 0 Refills, Maintenance, 10/27/23 11:02:00 EST, Powder, [facility]/pharmacy #[id number], Partial fill upon patient request if the prescription is for a schedule II opioid drug., 1 application Topically 3 ti... Start Date: 10/27/23 Status: Ordered omeprazole 40 mg oral enteric coated capsule 1 capsule = 40 mg, By Mouth, Daily, # 90 capsule, 3 Refills, Maintenance, 12/23/23 17:13:00 EST, ECCapsule, [facility]/pharmacy #[id number], Partial fill upon patient request if the [...] tramadol 2Secondary to tramadol and Klonopin overdose Vital Signs Most recent to oldest [Reference Range]: 1 Height 170.18 cm (12/17/23 10:17 AM) Weight 140.90 kg (12/17/23 10:17 AM) Oxygen Saturation [94-100 %] 97 % (12/17/23 10:17 AM) Pulse Rate [55-90 bpm] 83 bpm (12/17/23 10:17 AM) Body Mass Index [18.5-24.99 kg/m2] 48.65 kg/m2 *>HHI* (12/17/23 10:17 AM) Blood Pressure [90-138/55-84 mm Hg] 128/ 72mm Hg (12/17/23 10:17 AM) Blood pressure sites Arm, right (12/17/23 10:17 AM) Weight Obtained Via Patient/family state d (12/17/23 10:17 AM) Social History Social History Type Response Smoking Status Former smoker, quit more than 30 days ago; Other: quit 1973 6 yrs toal 11/13 6; Number of years: 6; Total pack years: 2; entered on: 07/03/23 Sex Note * Kori Mazariegos: PERFORM, SIGN, VERIFY Event Display: Patient Education/Instruction Authored Date: [id number] [facility] *BVS [address] Clinical Summary Name BEN GARIBAY Age 73 Years 1950 PCP Erik Kim DO PCP Visit Date 12/17/2023 09:40:00 Additional Instructions: Scheduled Appointments?? Future Appointments ?*BMP??So??Syed[facility] ?[address],??[place],??[address] ?Phone:??--?Fax:??-- ?Appt. Date:??12/23/2023?3:30 PM ?Scheduled Provider:??Erik Kim DO Follow-Up Instructions ?? With: Address: When: Jan SUMMERS, Suresh Erickson 04/15/2023 12:00 AM Comments: Follow-up here as needed Diagnosis Medications: Please continue your medications until treatment is completed or stopped by your provider. Discuss any questions related to medications with your provider. Medications to Continue with No Changes These medications were not printed or sent to your pharmacy Acetaminophen (acetaminophen 325 mg oral tablet) TAKE 2 TABLETS (650 MG)ORALLY EVERY 6 HOURS NEEDED FOR PAIN, MILD (PAIN SCALE 1-3). Next Dose: Amlodipine (amLODIPine 2.5 mg oral tablet) 1 tab(s) Oral Daily. Refills: 0. Next Dose: apixaban (Eliquis 5 mg oral tablet) 1 tab(s) Oral twice a day. Next Dose: Atorvastatin (atorvastatin 40 mg oral tablet) 1 tab(s) Oral Daily. Refills: 3. Next Dose: BuPROpion (buPROPion 300 mg/24 hours (XL) oral tablet, extended release) Next Dose: Clonazepam (clonazePAM 0.5 mg oral tablet) 0.5 Milligram Oral Daily at Bedtime. Next Dose: Clonazepam (clonazePAM 0.5 mg oral tablet) 0.5 tab(s) Oral Daily as needed Anxiety. Next Dose: Cyanocobalamin (Vitamin B12) Next Dose: Duloxetine (Cymbalta 60 mg oral enteric coated capsule) 2 capsule By Mouth Daily. Next Dose: Durable Medical Equipment (Four-wheeled walker with seat and handbrakes) Dx: Parkinsonism (G20). Refills: 0. Next Dose: Durable Medical Equipment (Knee Support) wear knee brace for OA both knees. Refills: 0. Next Dose: Estradiol Topical (estradiol 0.1 mg/g vaginal cream) 1 gram Vaginally Daily at Bedtime. Refills: 11. Next Dose: Gabapentin (gabapentin 300 mg oral capsule) 1 capsule in am 2 at bedtime. Refills: 3. Next Dose: HydrOXYzine (hydrOXYzine hydrochloride 25 mg oral tablet) 1 tab(s) Oral 4 times a day. Next Dose: Lamotrigine (Lamictal 100 mg oral tablet) 3 tab Oral Daily at Bedtime. Next Dose: Lisinopril (lisinopril 40 mg oral tablet) Next Dose: Loperamide (loperamide 2 mg oral capsule) 1 capsule Oral every 4 hours. Next Dose: Meclizine (meclizine 25 mg oral tablet) TAKE 1 TABLET BY MOUTH THREE TIMES A DAY NEEDED. Next Dose: Metformin 500 Milligram Oral twice a day. Next Dose: Metoprolol (metoprolol 25 mg oral tablet) 50 Milligram Oral twice a day. Next Dose: Metoprolol (metoprolol 50 mg oral tablet) 1 tab(s) Oral twice a day. Refills: 3. Next Dose: Milk of Magnesia 1,200 Milligram Oral 3 times a day. Next Dose: Nystatin Topical (nystatin topical 353723 u/gm powder) 1 buzz Topically 3 times a day. to rash. Refills: 0. Next Dose: Omeprazole (omeprazole 40 mg oral enteric coated capsule) 1 capsule Oral Daily. Next Dose: vibegron (Gemtesa 75 mg oral tablet) 1 tab(s) Oral Daily. Refills: 11. Next Dose: Allergy Info:?? Myrbetriq Medications Given This Visit Future Orders ?No future orders Vital Signs Height 170.18 cm Weight 140.90 kg BMI 48.65 kg/m2 Blood Pressure 128 mm Hg/72 mm Hg Temperature Pulse Rate 83 bpm Respiratory Rate 02 Sat Mode of Delivery 97 %/ You can now view a summary of your hospital visit from the comfort of your home through a free online portal called [employer]. [employer] is a website that allows you to securely view your medical information including discharge summary, medications and follow-up visits. ??You can alsosend a secure electronic message to your doctor???s office to request appointments, renew medications or just ask a question. You can enroll at [email or web address] or register during your next office visit. [...] primary care provider, you may find a [facility] provider by calling [facility] at [phone]. [facility], in keeping with [facility] guidance, no longer requires face masks for staff, patientsor visitors in most situations. Similar to time spent indoors at other locations, there is the chance that you were exposed to respiratory viruses during your time with us (such as flu or COVID-19).? If you develop symptoms concerning for a viral respiratory infection, please seek testing (and treatment if indicated) from your medical provider or home test kit. For information about the plan of care including goals and instructions for your diagnosis, please see the patient education orders section of this document. Patient Education Materials?? The content of this educational material or handout may have been modified, supplemented, or adapted from its original content and format to support your individualized medical care. Patient Care team information Care Team Personnel Name: Armani Reid DO Position: [facility] Renal MD Member Role: Lifetime Consulting Physician Address: Address: [address] [facility] [place] [address]- Name: Erik Kim DO Position: [facility] Physician - Primary Care Member Role: PCP Address: Address: [address] [place] [id number] Care Team Related Persons Name: LORENA HARRISON Address: home [address] [place] [address] Name: LAYNE TREADWELL Address: home [address] [place] [address]
--- OUTSIDE RECORDS SUMMARY | 2024-03-09 15:26 | XMS_ITS | Continuity of Care Document ---
Author Organization [facility] Eric Lynch Gene lt Address [address] [place] [address]- Care Team Providers Care Rental Agent Name Role Phone Erik Kim DO Primary Care Physician [facility] 10[facility]23 - 11/19/23 [facility] Eric Velazquezley Adult [address] [place] [address]- Allergies, Adverse Reactions, Alerts Substance Reaction Severity [...] virus vaccine, inactivated 08/09/17 Avery rded SARS-CoV-2(COVID-19)mRNA-LNP vac([id number]) 08/02/23 Recorded Influenza Virus Vaccine (oldterm) 1 [...] Influenza Virus Vaccine (oldterm) 08/26/11 Recorde d [id number] 12y+ bivalent booster vax 08/06/22 Recorded pneumococcal 13-valent vaccine 6 07/25/22 Recorded pneumococcal 13-valent vaccine 7 12/14/18 Recorded pneumococcal 13-valent vaccine 12/14/18 Recorded pneumococcal 13-valent vaccine 8 06/06/16 Recorded SARS-CoV-2 mRNA (fvjpyap-vlec-shkzh) vax 03/13/22 Recorded SARS-CoV-2 mRNA (tkzgjlc-dhyw-qotfs) vax 9 08/21/21 Recorded SARS-CoV-2 mRNA (fjsaqsx-vyhc-fqmkk) vax 10 01/13/21 Recorded SARS-CoV-2 (COVID-19) mRNA BNT-162b2 vac 09/03/21 Recorded SARS-CoV-2 (COVID-19) Ad26 vaccine 01/13/21 Record ed zoster vaccine, inactivated 03/13/20 Recorded zoster vaccine, inactivated 12/09/19 Recorded Zoster Vaccine Live 11 12/09/19 Recorded Zoster Vaccine Live 03/13/12 Recorded tetanus/diphtheria/pertussis, acel(Tdap) 10/21/11 Recorded Pneumococcal Vaccine (oldterm) 11/08/06 Given pneumococcal 23-valent vaccine 12 11/08/06 Recorde d 1Result Comment: Unit: Unknown Route: Intramuscular Clothing Pattern Preparer: Sanofi Pasteur 2Result Comment: Route: Intramuscular Clothing Pattern Preparer: Sanofi Pasteur 3Result Comment: Unit: Unknown 4Result Comment: Unit: Unknown 5Result Comment: Unit: Unknown 6Result Comment: Unit: Unknown Route: Intramuscular Clothing Pattern Preparer: Pfizer 7Result Comment: Unit: Unknown Route: Intramuscular Clothing Pattern Preparer: Wyeth 8Result Comment: Unit: Unknown 9Result Comment: Route: Intramuscular Clothing Pattern Preparer: Sanofi Pasteur 10Result Comment: Unit: Unknown Route: Intramuscular Clothing Pattern Preparer: Suleiman 11Result Comment: Route: Intramuscular Clothing Pattern Preparer: GlaxoSmithKline 12Result Comment: Unit: Unknown Medications acetaminophen 325 mg oral tablet TAKE 2 TABLETS (650 MG)ORALLY EVERY 6 HOURS NEEDED FOR PAIN, MILD (PAIN SCALE 1-3) Start Date: 09/22/23 Status: Ordered amLODIPine 2.5 mg oral tablet 1 tablet, By Mouth, Daily, # 90 tablet, 0 Refills, Maintenance, 11/12/23 12:11:00 EST, [facility] STORE [facility]03, 170.18, cm, 10/30/23 14:25:00 EST, Height, 127.2, kg, 10/02/23 3:00:00 EST, Dry Weight Start Date: 11/12/23 Status: Ordered atorvastatin 40 mg oral tablet 1 tablet = 40 mg, By Mouth, Daily, # 90 tablet, 3 Refills, Maintenance, 10/27/23 11:06:00 EST, Tablet, [facility]/pharmacy #[id number], Partial fill upon patient request [...] Gm, 11 Refills, Maintenance, 11/17/23 9:45:00 EST, [facility]/pharmacy #[id number], Partial fill upon patient request [...] Replace Required Details, Route to Pharmacy Electronically, [facility]/pharmacy #[id number], Partial fill upon patient reque... Start Date: 10/27/23 Status: Ordered Gemtesa 75 mg oral tablet 1 tablet = 75 mg, By Mouth, Daily, # 30 tablet, 11 Refills, Maintenance, 11/17/23 9:45:00 EST, [facility]/pharmacy #[id number], Partial fill upon patient request [...] 10/27/23 11:05:00 EST, Route to Pharmacy Electronically, [facility]/pharmacy #[id number], Partial fill upon patientrequest if the prescription is for a schedule II op... Start Date: 10/27/23 Status: Ordered Milk of Magnesia = 1,200 mg, By Mouth, 3 times a day, 0 Refills, Maintenance, 09/22/23 15:30:00 EST, Partial fill upon patient request if the prescription is for a schedule II opioid drug. Start Date: 09/22/23 Status: Ordered nystatin topical 343700 u/gm powder 1 application, Topically, 3 times [...] Team Personnel Name: Armani Reid DO Position: [facility] Renal MD Member Role: Lifetime Consulting Physician Address: Address: [address] [place] [address] [address] [facility] [place] [address]- Name: Erik Kim DO Position: [facility] Physician - Primary Care Member Role: PCP Address: Address: [address] [place] [address]- [place] Care Team Related Persons Name: LORENA HARRISON Address: home [address] [place] [address] Name: LAYNE TREADWELL Address: home [address] [place] [address]
--- OUTSIDE RECORDS SUMMARY | 2024-03-09 15:26 | XMS_ITS | Continuity of Care Document ---
Author Organization [facility] Address [address] [place] [address]- Care Team Providers Care Narrow Fabric Loom Fixer Name Role Phone Erik Kim DO Primary Care Physician [phone] [facility]counter [facility] 12/17/23 - 01/16/24 [facility] [address] [place], [place] [address] Attending Physician: Amna Darling Admitting Physician: Amna Darling Referring Physician: AdmtrAmna Allergies, Adverse Reactions, Alerts Substance Reaction Severity [...] virus vaccine, inactivated 08/09/17 Avery rded SARS-CoV-2(COVID-19)mRNA-LNP vac([id number]) 08/02/23 Recorded Influenza Virus Vaccine (oldterm) 1 [...] Influenza Virus Vaccine (oldterm) 08/26/11 Recorde d [id number] 12y+ bivalent booster vax 08/06/22 Recorded pneumococcal 13-valent vaccine 6 07/25/22 Recorded pneumococcal 13-valent vaccine 7 12/14/18 Recorded pneumococcal 13-valent vaccine 12/14/18 Recorded pneumococcal 13-valent vaccine 8 06/06/16 Recorded SARS-CoV-2 mRNA (quysrwn-xrzc-qwtsl) vax 03/13/22 Recorded SARS-CoV-2 mRNA (qvmvfop-qffl-hkbzh) vax 9 08/21/21 Recorded SARS-CoV-2 mRNA (wprvxmd-mcpg-zcrox) vax 10 01/13/21 Recorded SARS-CoV-2 (COVID-19) mRNA BNT-162b2 vac 09/03/21 Recorded SARS-CoV-2 (COVID-19) Ad26 vaccine 01/13/21 Record ed zoster vaccine, inactivated 03/13/20 Recorded zoster vaccine, inactivated 12/09/19 Recorded Zoster Vaccine Live 11 12/09/19 Recorded Zoster Vaccine Live 03/13/12 Recorded tetanus/diphtheria/pertussis, acel(Tdap) 10/21/11 Recorded Pneumococcal Vaccine (oldterm) 11/08/06 Given pneumococcal 23-valent vaccine 12 11/08/06 Recorde d 1Result Comment: Unit: Unknown Route: Intramuscular Head Operator Sulfide: Sanofi Pasteur 2Result Comment: Route: Intramuscular Head Operator Sulfide: Sanofi Pasteur 3Result Comment: Unit: Unknown 4Result Comment: Unit: Unknown 5Result Comment: Unit: Unknown 6Result Comment: Unit: Unknown Route: Intramuscular Head Operator Sulfide: Pfizer 7Result Comment: Unit: Unknown Route: Intramuscular Head Operator Sulfide: Wyeth 8Result Comment: Unit: Unknown 9Result Comment: Route: Intramuscular Head Operator Sulfide: Sanofi Pasteur 10Result Comment: Unit: Unknown Route: Intramuscular Head Operator Sulfide: Suleiman 11Result Comment: Route: Intramuscular Head Operator Sulfide: GlaxoSmithKline 12Result Comment: Unit: Unknown Medications acetaminophen 325 mg oral tablet TAKE 2 TABLETS (650 MG)ORALLY EVERY 6 HOURS NEEDED FOR PAIN, MILD (PAIN SCALE 1-3) Start Date: 09/22/23 Status: Ordered amLODIPine 2.5 mg oral tablet 1 tablet, By Mouth, Daily, # 90 tablet, 0 Refills, Maintenance, 11/12/23 12:11:00 EST, [facility]147, 170.18, cm, 10/30/23 14:25:00 EST, Height, 127.2, kg, 10/02/23 3:00:00 EST, Dry Weight Start Date: 11/12/23 Status: Ordered atorvastatin 40 mg oral tablet 1 tablet = 40 mg, By Mouth, Daily, # 90 tablet, 3 Refills, Maintenance, 10/27/23 11:06:00 EST, Tablet, [facility]/pharmacy #[id number], Partial fill upon patient request if [...] tablet, 0 Refills, Maintenance, 12/23/23 17:15:00 EST, [facility] STORE [address]3540, 170.18, cm, 12/17/23 10:17:00 EST, Height, 127.2, [...] 11 Refills, Maintenance, 11/17/23 9:45:00 EST, [facility]/pharmacy #[id number], Partial fill upon patient request if [...] Required Details, Route to Pharmacy Electronically, [facility]/pharmacy #[id number], Partial fill upon patient reque... Start Date: 10/27/23 Status: Ordered Gemtesa 75 mg oral tablet 1 tablet = 75 mg, By Mouth, Daily, # 30 tablet, 11 Refills, Maintenance, 11/17/23 9:45:00 EST, [facility]/pharmacy #[id number], Partial fill upon patient request if [...] 2 Refills, Maintenance, 12/23/23 17:13:00EST, Tablet, [facility]/pharmacy #[id number], Partial fill upon patient request if [...] 11:05:00 EST, Route to Pharmacy Electronically, [facility]/pharmacy #[id number], Partial fill upon patientrequest if the prescription is for a schedule II op... Start Date: 10/27/23 Status: Ordered Milk of Magnesia = 1,200 mg, By Mouth, 3 times a day, 0 Refills, Maintenance, 09/22/23 15:30:00 EST, Partial fill upon patient request if the prescription is for a schedule II opioid drug. Start Date: 09/22/23 Status: Ordered nystatin topical 273696 u/gm powder See Instructions, APPLY TOPICALLY 3 TIMES A DAY TO RASH, # 60 Gm, 0 Refills, Maintenance, 12/23/23 17:15:00 EST, [facility] STORE [address], 30, APPLY TOPICALLY 3 TIMES A DAY TO RASH, 170.18, cm, 12/17/23 10:17:00 EST, Height, 127.2, kg, 10/02/23 3:00:00 EST, DrAlejandro.. Start Date: 12/23/23 Status: Ordered nystatin topical 426332 u/gm powder 1 application, Topically, 3 times a day, to rash, # 60 Gm, 0 Refills, Maintenance, 10/27/23 11:02:00 EST, Powder, [facility]/pharmacy #[id number], Partial fill upon patient request if the prescription is for a schedule II opioid drug., 1 application Topically 3 ti... Start Date: 10/27/23 Status: Ordered omeprazole 40 mg oral enteric coated capsule 1 capsule = 40 mg, By Mouth, Daily, # 90 capsule, 3 Refills, Maintenance, 12/23/23 17:13:00 EST, ECCapsule, [facility]/pharmacy #[id number], Partial fill upon patient request if the [...] Team Personnel Name: Armani Reid DO Position: [facility] Renal MD Member Role: Lifetime Consulting Physician Address: Address: [address] [place] [address] [address] [facility] [place] [address]- Name: Erik Kim DO Position: [facility] Physician - Primary Care Member Role: PCP Address: Address: [address] [facility] [place] [address]- Care Team Related Persons Name: LORENA HARRISON Address: home [address] [place] [address] Name: LAYNE TREADWELL Address: home [address] [place] [address]
--- OUTSIDE RECORDS SUMMARY | 2024-03-09 15:26 | XMS_ITS | Continuity of Care Document ---
Author Organization [facility] Syed Gene Address [address] [place] [address]- Care Team Providers Care Chief Clerk Shelter Name Role Phone Erik Kim DO Primary Care Physician [phone] Encounter [facility] Date(s): 09/23/23 - 10/23/23 [facility] Adult [address] [place] [address]- Allergies, Adverse Reactions, Alerts Substance Reaction Severity Status Peggy Chavarria Active Immunizations Given and Recorded Vaccine Date Status Refusal Reason influenza virus vaccine, inactivated 08/02/23 Avery rded influenza virus vaccine, inactivated 08/06/22 Avery rded influenza virus vaccine, inactivated 08/21/21 Avery rded influenza virus vaccine, inactivated 08/09/20 Avery rded influenza virus vaccine, inactivated 07/05/19 Avery rded influenza virus vaccine, inactivated 08/08/18 Avery rded influenza virus vaccine, inactivated 08/09/17 Avery rded SARS-CoV-2(COVID-19)mRNA-LNP vac([id number]) 08/02/23 Recorded Influenza Virus Vaccine (oldterm) 1 [...] Influenza Virus Vaccine (oldterm) 08/26/11 Recorde d [id number] 12y+ bivalent booster vax 08/06/22 Recorded pneumococcal 13-valent vaccine 6 07/25/22 Recorded pneumococcal 13-valent vaccine 7 12/14/18 Recorded pneumococcal 13-valent vaccine 12/14/18 Recorded pneumococcal 13-valent vaccine 8 06/06/16 Recorded pneumococcal 20-valent conjugate vaccine 07/25/22 Recorded SARS-CoV-2 mRNA (xarwiwm-eslp-oqoeh) vax 03/13/22 Recorded SARS-CoV-2 mRNA (zsgzfrk-sumv-knufa) vax 9 08/21/21 Recorded SARS-CoV-2 mRNA (exeetrl-zask-iuomg) vax 10 01/13/21 Recorded SARS-CoV-2 (COVID-19) mRNA BNT-162b2 vac 09/03/21 Recorded SARS-CoV-2 (COVID-19) Ad26 vaccine 01/13/21 Record ed zoster vaccine, inactivated 03/13/20 Recorded zoster vaccine, inactivated 12/09/19 Recorded Zoster Vaccine Live 11 12/09/19 Recorded Zoster Vaccine Live 03/13/12 Recorded tetanus/diphtheria/pertussis, acel(Tdap) 10/21/11 Recorded Pneumococcal Vaccine (oldterm) 11/08/06 Given pneumococcal 23-valent vaccine 12 11/08/06 Recorde d 1Result Comment: Unit: Unknown Route: Intramuscular Civil Engineering Designer: Sanofi Pasteur 2Result Comment: Route: Intramuscular Civil Engineering Designer: Sanofi Pasteur 3Result Comment: Unit: Unknown 4Result Comment: Unit: Unknown 5Result Comment: Unit: Unknown 6Result Comment: Unit: Unknown Route: Intramuscular Civil Engineering Designer: Pfizer 7Result Comment: Unit: Unknown Route: Intramuscular Civil Engineering Designer: [employer]Demand 8Result Comment: Unit: Unknown 9Result Comment: Route: Intramuscular Civil Engineering Designer: Sanofi Pasteur 10Result Comment: Unit: Unknown Route: Intramuscular Civil Engineering Designer: TOMODO 11Result Comment: Route: Intramuscular Civil Engineering Designer: [employer] 12Result Comment: Unit: Unknown Medications acetaminophen 325 [...] opioid drug. Start Date: 07/29/22 Status: Ordered buPROPion 300 mg/24 hours (XL) [...] 2 at bedtime, # 270 capsule, Refills 1, Tot. Refills 1, Maintenance, 09/22/23 15:38:00 EST, Instructions Replace Required Details, Route to Pharmacy Electronically, [facility]/pharmacy #[id number], Partial fill upon patient reque... Start Date: 09/22/23 Status: Ordered hydrOXYzine hydrochloride 25 mg oral [...] opioid drug. Start Date: 07/29/22 Status: Ordered Milk of Magnesia = 1,200 mg, By Mouth, 3 times a day, 0 Refills, Maintenance, 09/22/23 15:30:00 EST, Partial fill upon patient request if the prescription is for a schedule II opioid drug. Start Date: 09/22/23 Status: Ordered omeprazole 40 mg oral enteric [...] Chronic rhinosinusitis Confirmed Active Rectocele Confirmed Active Muscular deconditioning Confirmed Active Essential hypertension Confirmed Active GERD - Gastro-esophageal reflux disease Confirmed Active Fecal incontinence Confirmed Active Major depression in partial remission Confirmed Active Urinary incontinence, mixed Confirmed Active Morbid Obesity Confirmed Active Obstructive sleep apnea on CPAP Confirmed Active AF (paroxysmal atrial fibrillation) Confirmed Active Medicare annual wellness visit, subsequent Confirmed Active Recurrent falls Confirmed Active Resting [...] Team Personnel Name: Armani Reid DO Position: [facility] Renal MD Member Role: Lifetime Consulting Physician Address: Address: [address] [facility] [place] [address]- Name: Erik Kim DO Position: [facility] Physician - Primary Care Member Role: PCP Address: Address: [address] [place], [place] [address] Care Team Related Persons Name: LORENA HARRISON Address: home [address] [place] [address] Name: LAYNE TREADWELL Address: home [address] [place] [address]
--- OUTSIDE RECORDS SUMMARY | 2024-03-09 15:26 | XMS_ITS | Continuity of Care Document ---
Author Organization [facility] Address [address], [address] [place] [address]- Care Team Providers Care Disability Liaison Officer Name Role Phone Erik Kim DO Primary Care Physician [phone] Encounter [facility] Date(s): 06/27/23 - 10/08/23 [facility] [address]th [address] [place], [place] [address] Attending Physician: Jenn Montes MD Admitting Physician: [...] virus vaccine, inactivated 08/09/17 Avery rded SARS-CoV-2(COVID-19)mRNA-LNP vac([id number]) 08/02/23 Recorded Influenza Virus Vaccine (oldterm) 1 [...] Influenza Virus Vaccine (oldterm) 08/26/11 Recorde d [id number] 12y+ bivalent booster vax 08/06/22 Recorded pneumococcal 13-valent vaccine 6 07/25/22 Recorded pneumococcal 13-valent vaccine 7 12/14/18 Recorded pneumococcal 13-valent vaccine 12/14/18 Recorded pneumococcal 13-valent vaccine 8 06/06/16 Recorded pneumococcal 20-valent conjugate vaccine 07/25/22 Recorded SARS-CoV-2 mRNA (qegykfe-uike-wwjru) vax 03/13/22 Recorded SARS-CoV-2 mRNA (vghyhdo-uwpx-qpyyg) vax 9 08/21/21 Recorded SARS-CoV-2 mRNA (ufviwup-ltck-owqkt) vax 10 01/13/21 Recorded SARS-CoV-2 (COVID-19) mRNA BNT-162b2 vac 09/03/21 Recorded SARS-CoV-2 (COVID-19) Ad26 vaccine 01/13/21 Record ed zoster vaccine, inactivated 03/13/20 Recorded zoster vaccine, inactivated 12/09/19 Recorded Zoster Vaccine Live 11 12/09/19 Recorded Zoster Vaccine Live 03/13/12 Recorded tetanus/diphtheria/pertussis, acel(Tdap) 10/21/11 Recorded Pneumococcal Vaccine (oldterm) 11/08/06 Given pneumococcal 23-valent vaccine 12 11/08/06 Recorde d 1Result Comment: Unit: Unknown Route: Intramuscular Spike Driver: Sanofi Pasteur 2Result Comment: Route: Intramuscular Spike Driver: Sanofi Pasteur 3Result Comment: Unit: Unknown 4Result Comment: Unit: Unknown 5Result Comment: Unit: Unknown 6Result Comment: Unit: Unknown Route: Intramuscular Spike Driver: Pfizer 7Result Comment: Unit: Unknown Route: Intramuscular Spike Driver: Wyeth 8Result Comment: Unit: Unknown 9Result Comment: Route: Intramuscular Spike Driver: Sanofi Pasteur 10Result Comment: Unit: Unknown Route: Intramuscular Spike Driver: Suleiman 11Result Comment: Route: Intramuscular Spike Driver: GlaxoSmithKline 12Result Comment: Unit: Unknown Medications acetaminophen [...] Replace Required Details, Route to Pharmacy Electronically, [facility]/pharmacy #[id number], Partial fill upon patient reque... Start Date: [...] Member Role: Lifetime Consulting Physician Address: Address: [address] [place] [address] [address] [facility] [place], [place] [address] Name: Erik Kim DO Position: [facility] Physician - Primary Care Member Role: PCP Address: Address: [address] [place] [address]- Care Team Related Persons Name: LORENA HARRISON Address: home [address] [place] [address] Name: LAYNE TREADWELL Address: home [address] [place] [address]
--- OUTSIDE RECORDS SUMMARY | 2024-03-09 15:26 | XMS_ITS | Continuity of Care Document ---
Author Organization [facility] Eric Lynch Gene lt Address [address] [place] [address]- Care Team Providers Care Silver Buffer Name Role Phone Erik Kim DO Primary Care Physician [facility]counter [facility] Date(s): 10/24/23 - 11/23/23 [facility] Adult [address] [place] [address]- Allergies, Adverse Reactions, Alerts Substance Reaction Severity [...] virus vaccine, inactivated 08/09/17 Avery rded SARS-CoV-2(COVID-19)mRNA-LNP vac([id number]) 08/02/23 Recorded Influenza Virus Vaccine (oldterm) 1 [...] Influenza Virus Vaccine (oldterm) 08/26/11 Recorde d [id number] 12y+ bivalent booster vax 08/06/22 Recorded pneumococcal 13-valent vaccine 6 07/25/22 Recorded pneumococcal 13-valent vaccine 7 12/14/18 Recorded pneumococcal 13-valent vaccine 12/14/18 Recorded pneumococcal 13-valent vaccine 8 06/06/16 Recorded SARS-CoV-2 mRNA (selzfsw-qmkr-gnigm) vax 03/13/22 Recorded SARS-CoV-2 mRNA (ilguwxm-tozf-jcvab) vax 9 08/21/21 Recorded SARS-CoV-2 mRNA (zffhyga-tiba-vmbuz) vax 10 01/13/21 Recorded SARS-CoV-2 (COVID-19) mRNA BNT-162b2 vac 09/03/21 Recorded SARS-CoV-2 (COVID-19) Ad26 vaccine 01/13/21 Record ed zoster vaccine, inactivated 03/13/20 Recorded zoster vaccine, inactivated 12/09/19 Recorded Zoster Vaccine Live 11 12/09/19 Recorded Zoster Vaccine Live 03/13/12 Recorded tetanus/diphtheria/pertussis, acel(Tdap) 10/21/11 Recorded Pneumococcal Vaccine (oldterm) 11/08/06 Given pneumococcal 23-valent vaccine 12 11/08/06 Recorde d 1Result Comment: Unit: Unknown Route: Intramuscular Production Corrugator: Sanofi Pasteur 2Result Comment: Route: Intramuscular Production Corrugator: Sanofi Pasteur 3Result Comment: Unit: Unknown 4Result Comment: Unit: Unknown 5Result Comment: Unit: Unknown 6Result Comment: Unit: Unknown Route: Intramuscular Production Corrugator: Pfizer 7Result Comment: Unit: Unknown Route: Intramuscular Production Corrugator: Wyeth 8Result Comment: Unit: Unknown 9Result Comment: Route: Intramuscular Production Corrugator: Sanofi Pasteur 10Result Comment: Unit: Unknown Route: Intramuscular Production Corrugator: Suleiman 11Result Comment: Route: Intramuscular Production Corrugator: GlaxoSmithKline 12Result Comment: Unit: Unknown Medications acetaminophen 325 mg oral tablet TAKE 2 TABLETS (650 MG)ORALLY EVERY 6 HOURS NEEDED FOR PAIN, MILD (PAIN SCALE 1-3) Start Date: 09/22/23 Status: Ordered amLODIPine 2.5 mg oral tablet 1 tablet, By Mouth, Daily, # 90 tablet, 0 Refills, Maintenance, 11/12/23 12:11:00 EST, [facility] STORE [id number], 170.18, cm, 10/30/23 14:25:00 EST, Height, 127.2, kg, 10/02/23 3:00:00 EST, Dry Weight Start Date: 11/12/23 Status: Ordered atorvastatin 40 mg oral tablet 1 tablet = 40 mg, By Mouth, Daily, # 90 tablet, 3 Refills, Maintenance, 10/27/23 11:06:00 EST, Tablet, [facility]/pharmacy #[id number], Partial fill upon patient request [...] Gm, 11 Refills, Maintenance, 11/17/23 9:45:00 EST, [facility]/pharmacy #[id number], Partial fill upon patient request [...] Replace Required Details, Route to Pharmacy Electronically, [facility]/pharmacy #[id number], Partial fill upon patient reque... Start Date: 10/27/23 Status: Ordered Gemtesa 75 mg oral tablet 1 tablet = 75 mg, By Mouth, Daily, # 30 tablet, 11 Refills, Maintenance, 11/17/23 9:45:00 EST, [facility]/pharmacy #[id number], Partial fill upon patient request [...] 10/27/23 11:05:00 EST, Route to Pharmacy Electronically, [facility]/pharmacy #[id number], Partial fill upon patientrequest if the prescription is for a schedule II op... Start Date: 10/27/23 Status: Ordered Milk of Magnesia = 1,200 mg, By Mouth, 3 times a day, 0 Refills, Maintenance, 09/22/23 15:30:00 EST, Partial fill upon patient request if the prescription is for a schedule II opioid drug. Start Date: 09/22/23 Status: Ordered nystatin topical 070131 u/gm powder 1 application, Topically, 3 times [...] Team Personnel Name: Armani Reid DO Position: [facility] Renal MD Member Role: Lifetime Consulting Physician Address: Address: [address] [place] [address] [address] [facility] [place] [address]- Name: Erik Kim DO Position: [facility] Physician - Primary Care Member Role: PCP Address: Address: [address] [place] [address]- [place] Care Team Related Persons Name: LORENA HARRISON Address: home [address] [place] [address] Name: LAYNE TREADWELL Address: home [address] [place] [address]
--- OUTSIDE RECORDS SUMMARY | 2024-03-09 15:26 | XMS_ITS | Continuity of Care Document ---
Author Organization [facility] Eric Lynch Gene Address [address] [place] [address]- Care Team Providers Care Radiology Special Procedure Tech Name Role Phone Erik Kim DO Primary Care Physician [facility]counter [facility] Date(s): 01/30/24 - 02/29/24 [facility] Adult [address] [place] [address]- Allergies, Adverse Reactions, Alerts Substance Reaction Severity [...] virus vaccine, inactivated 08/09/17 Avery rded SARS-CoV-2(COVID-19)mRNA-LNP vac([id number]) 08/02/23 Recorded Influenza Virus Vaccine (oldterm) 1 [...] Influenza Virus Vaccine (oldterm) 08/26/11 Recorde d [id number] 12y+ bivalent booster vax 08/06/22 Recorded pneumococcal 13-valent vaccine 6 07/25/22 Recorded pneumococcal 13-valent vaccine 7 12/14/18 Recorded pneumococcal 13-valent vaccine 12/14/18 Recorded pneumococcal 13-valent vaccine 8 06/06/16 Recorded SARS-CoV-2 mRNA (ofrxydc-imkp-pkmyz) vax 03/13/22 Recorded SARS-CoV-2 mRNA (qpltjdf-pxcm-jyhjs) vax 9 08/21/21 Recorded SARS-CoV-2 mRNA (lzoiwmi-rdrz-smkpy) vax 10 01/13/21 Recorded SARS-CoV-2 (COVID-19) mRNA BNT-162b2 vac 09/03/21 Recorded SARS-CoV-2 (COVID-19) Ad26 vaccine 01/13/21 Record ed zoster vaccine, inactivated 03/13/20 Recorded zoster vaccine, inactivated 12/09/19 Recorded Zoster Vaccine Live 11 12/09/19 Recorded Zoster Vaccine Live 03/13/12 Recorded tetanus/diphtheria/pertussis, acel(Tdap) 10/21/11 Recorded Pneumococcal Vaccine (oldterm) 11/08/06 Given pneumococcal 23-valent vaccine 12 11/08/06 Recorde d 1Result Comment: Unit: Unknown Route: Intramuscular Body Painter: Sanofi Pasteur 2Result Comment: Route: Intramuscular Body Painter: Sanofi Pasteur 3Result Comment: Unit: Unknown 4Result Comment: Unit: Unknown 5Result Comment: Unit: Unknown 6Result Comment: Unit: Unknown Route: Intramuscular Body Painter: Pfizer 7Result Comment: Unit: Unknown Route: Intramuscular Body Painter: Wyeth 8Result Comment: Unit: Unknown 9Result Comment: Route: Intramuscular Body Painter: Sanofi Pasteur 10Result Comment: Unit: Unknown Route: Intramuscular Body Painter: [employer] 11Result Comment: Route: Intramuscular Body Painter: GlaxoSmithKline 12Result Comment: Unit: Unknown Medications acetaminophen 325 mg oral tablet TAKE 2 TABLETS (650 MG)ORALLY EVERY 6 HOURS NEEDED FOR PAIN, MILD (PAIN SCALE 1-3) Start Date: 09/22/23 Status: Ordered atorvastatin 40 mg oral tablet 1 tablet = 40 mg, By Mouth, Daily, # 90 tablet, 3 Refills, Maintenance, 10/27/23 11:06:00 EST, Tablet, [facility]/pharmacy #[id number], Partial fill upon patient [...] tablet, 0 Refills, Maintenance, 12/23/23 17:15:00 EST, [facility] STORE 49039, 170.18, cm, 12/17/23 10:17:00 EST, Height, 127.2, kg, 10/02/23 3:00:00 EST, Dry Weight Start Date: 12/23/23 Status: Ordered estradiol 0.1 mg/g vaginal cream = 1 Gm, Vaginally, Daily at bedtime, # 30 Gm, 11 Refills, Maintenance, 11/17/23 9:45:00 EST, [facility]/pharmacy #[id number], Partial fill upon patient [...] Replace Required Details, Route to Pharmacy Electronically, [facility]/pharmacy #[id number], Partial fill upon patient reque... Start Date: 10/27/23 Status: Ordered Gemtesa 75 mg oral tablet 1 tablet = 75 mg, By Mouth, Daily, # 30 tablet, 11 Refills, Maintenance, 11/17/23 9:45:00 EST, [facility]/pharmacy #[id number], Partial fill upon patient [...] 04/01/24 21:50:00 EDT, 02/01/24 21:50:00 EDT, Tablet, [facility]/pharmacy #[id number], Part... Start Date: 02/01/24 Stop Date: 04/01/24 Status: Ordered metFORMIN 500 mg oral tablet 1 tablet = 500 mg, By Mouth, 2 times a day, # 180 tablet, 2 Refills, Maintenance, 12/23/23 17:13:00EST, Tablet, [facility]/pharmacy #[id number], Partial fill upon patient request if the prescription is for a schedule II opioid drug., 170.18, cm, 12/17/23 10:17:00... Start Date: 12/23/23 Status: Ordered metoprolol 50 mg oral tablet 50 mg, 1, tablet, By Mouth, 2 times a day, # 180 tablet, Refills 3, Tot. Refills 3, Maintenance, 10/27/23 11:05:00 EST, Route to Pharmacy Electronically, [facility]/pharmacy #[id number], Partial fill upon patientrequest if the prescription is for a schedule II op... Start Date: 10/27/23 Status: Ordered nystatin topical [id number] u/gm powder See Instructions, APPLY TOPICALLY 3 TIMES A DAY TO RASH, # 60 Gm, 1 Refills, Maintenance, 02/02/24 7:47:00 EDT, [id number], 30, APPLY TOPICALLY 3 TIMES A DAY TO RASH, 170, cm, 01/19/24 14:19:00 EDT, Height, 136, kg, 01/17/24 9:30:00 EST, Dry Weight Start Date: 02/02/24 Status: Ordered omeprazole 40 mg oral enteric coated capsule 1 capsule = 40 mg, By Mouth, Daily, # 90 capsule, 3 Refills, Maintenance, 12/23/23 17:13:00 EST, ECCapsule, [facility]/pharmacy #[id number], Partial fill upon patient request if the [...] Team Personnel Name: Armani Reid DO Position: [facility] Renal MD Member Role: Lifetime Consulting Physician Address: Address: [address] [place] [address] [address] [facility] [place] [address]- Name: Maynor Lyons RN Position: [facility] RN Member Role: Primary Care Nurse Name: Erik Kim DO Position: [facility] Physician - Primary Care Member Role: PCP Address: Address: [address] [place] [address]- Name: Dianna Frost RN Position: [facility] RN Member Role: Primary Care Nurse Care Team Related Persons Name: LORENA HARRISON Address: home [address] [place] [address] Name: LAYNE TREADWELL Address: home [address] [place] [address]
--- OUTSIDE RECORDS SUMMARY | 2024-03-09 15:26 | XMS_ITS | Continuity of Care Document ---
Author Organization [facility] Address [address] [place] [address]- Care Team Providers Care Environmental Lawyer Name Role Phone Erik Kim DO Primary Care Physician Encounter 10/05/23 - 12/02/23 [facility] [address] [place] [address]- Discharge Disposition: CLIENT NO LONGER REQUIRES SKILLED CARE Allergies, Adverse Reactions, Alerts Substance Reaction Severity [...] virus vaccine, inactivated 08/09/17 Avery rded SARS-CoV-2(COVID-19)mRNA-LNP vac([id number]) 08/02/23 Recorded Influenza Virus Vaccine (oldterm) 1 [...] Influenza Virus Vaccine (oldterm) 08/26/11 Recorde d [id number] 12y+ bivalent booster vax 08/06/22 Recorded pneumococcal 13-valent vaccine 6 07/25/22 Recorded pneumococcal 13-valent vaccine 7 12/14/18 Recorded pneumococcal 13-valent vaccine 12/14/18 Recorded pneumococcal 13-valent vaccine 8 06/06/16 Recorded SARS-CoV-2 mRNA (evdazzj-vwjf-lthla) vax 03/13/22 Recorded SARS-CoV-2 mRNA (odhtbkm-yxzs-crgmr) vax 9 08/21/21 Recorded SARS-CoV-2 mRNA (frddheg-olml-dcldl) vax 10 01/13/21 Recorded SARS-CoV-2 (COVID-19) mRNA BNT-162b2 vac 09/03/21 Recorded SARS-CoV-2 (COVID-19) Ad26 vaccine 01/13/21 Record ed zoster vaccine, inactivated 03/13/20 Recorded zoster vaccine, inactivated 12/09/19 Recorded Zoster Vaccine Live 11 12/09/19 Recorded Zoster Vaccine Live 03/13/12 Recorded tetanus/diphtheria/pertussis, acel(Tdap) 10/21/11 Recorded Pneumococcal Vaccine (oldterm) 11/08/06 Given pneumococcal 23-valent vaccine 12 11/08/06 Recorde d 1Result Comment: Unit: Unknown Route: Intramuscular Passenger Vessel Chef: Sanofi Pasteur 2Result Comment: Route: Intramuscular Passenger Vessel Chef: Sanofi Pasteur 3Result Comment: Unit: Unknown 4Result Comment: Unit: Unknown 5Result Comment: Unit: Unknown 6Result Comment: Unit: Unknown Route: Intramuscular Passenger Vessel Chef: Pfizer 7Result Comment: Unit: Unknown Route: Intramuscular Passenger Vessel Chef: [employer] 8Result Comment: Unit: Unknown 9Result Comment: Route: Intramuscular Passenger Vessel Chef: Sanofi Pasteur 10Result Comment: Unit: Unknown Route: Intramuscular Passenger Vessel Chef: FITiST 11Result Comment: Route: Intramuscular Passenger Vessel Chef: GlaxoSmithKline 12Result Comment: Unit: Unknown Medications acetaminophen 325 mg oral tablet TAKE 2 TABLETS (650 MG)ORALLY EVERY 6 HOURS NEEDED FOR PAIN, MILD (PAIN SCALE 1-3) Start Date: 09/22/23 Status: Ordered amLODIPine 2.5 mg oral tablet 1 tablet, By Mouth, Daily, # 90 tablet, 0 Refills, Maintenance, 11/12/23 12:11:00 EST, [id number], 170.18, cm, 10/30/23 14:25:00 EST, Height, 127.2, kg, 10/02/23 3:00:00 EST, Dry Weight Start Date: 11/12/23 Status: Ordered atorvastatin 40 mg oral tablet 1 tablet = 40 mg, By Mouth, Daily, # 90 tablet, 3 Refills, Maintenance, 10/27/23 11:06:00 EST, Tablet, [facility]/pharmacy #[id number], Partial fill upon patient [...] Gm, 11 Refills, Maintenance, 11/17/23 9:45:00 EST, [facility]/pharmacy #[id number], Partial fill upon patient [...] Replace Required Details, Route to Pharmacy Electronically, [facility]/pharmacy #[id number], Partial fill upon patient reque... Start Date: 10/27/23 Status: Ordered Gemtesa 75 mg oral tablet 1 tablet = 75 mg, By Mouth, Daily, # 30 tablet, 11 Refills, Maintenance, 11/17/23 9:45:00 EST, [facility]/pharmacy #[id number], Partial fill upon patient [...] 10/27/23 11:05:00 EST, Route to Pharmacy Electronically, [facility]/pharmacy #[id number], Partial fill upon patientrequest if the prescription is for a schedule II op... Start Date: 10/27/23 Status: Ordered Milk of Magnesia = 1,200 mg, By Mouth, 3 times a day, 0 Refills, Maintenance, 09/22/23 15:30:00 EST, Partial fill upon patient request if the prescription is for a schedule II opioid drug. Start Date: 09/22/23 Status: Ordered nystatin topical 194543 u/gm powder 1 application, Topically, 3 times [...] Team Personnel Name: Armani Reid DO Position: [facility] Renal MD Member Role: Lifetime Consulting Physician Address: Address: [address] [facility] [place] [address]- Name: Erik Kim DO Position: [facility] Physician - Primary Care Member Role: PCP Address: Address: [address] [place], [place] [address] Care Team Related Persons Name: LORENA HARRISON Address: [address] [place] [address] Name: LAYNE TREADWELL Address: home [address] [place] [address]
--- OUTSIDE RECORDS SUMMARY | 2024-03-09 15:26 | XMS_ITS | Continuity of Care Document ---
Author Organization [facility] Eric Lynch Gene lt Address [address] [place] [address]- Care Team Providers Care Guest Services Ambassador Name Role Phone Erik Kim DO Primary Care Physician [phone] Encounter [facility] Date(s): 11/17/23 - 11/24/23 [facility] Eric Velazquezley Adult [address] [place] [address]- Encounter Diagnosis Diabetic foot infection(Discharge Diagnosis) - 11/17/23 Diabetes type 2, controlled(Discharge Diagnosis) - 11/17/23 AF (paroxysmal atrial fibrillation)(Discharge Diagnosis) - 11/17/23 Borderline personality disorder(Discharge Diagnosis) - 11/17/23 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) - 11/17/23 Ulcer of toe due to diabetes(Discharge Diagnosis) - 11/17/23 Peripheral arterial disease(Discharge Diagnosis) - 11/17/23 Severe obesity(Discharge Diagnosis) - 11/17/23 Type 2 diabetes mellitus with peripheral neuropathy(Discharge Diagnosis) - 11/17/23 Attending Physician: Erik Kim DO Allergies, Adverse [...] virus vaccine, inactivated 08/09/17 Avery rded SARS-CoV-2(COVID-19)mRNA-LNP vac([id number]) 08/02/23 Recorded Influenza Virus Vaccine (oldterm) 1 [...] Influenza Virus Vaccine (oldterm) 08/26/11 Recorde d [id number] 12y+ bivalent booster vax 08/06/22 Recorded pneumococcal 13-valent vaccine 6 07/25/22 Recorded pneumococcal 13-valent vaccine 7 12/14/18 Recorded pneumococcal 13-valent vaccine 12/14/18 Recorded pneumococcal 13-valent vaccine 8 06/06/16 Recorded SARS-CoV-2 mRNA ([id number]) vax 03/13/22 Recorded SARS-CoV-2 mRNA ([id number]) vax 9 08/21/21 Recorded SARS-CoV-2 mRNA (aiogjwj-rlxn-zqnwh) vax 10 01/13/21 Recorded SARS-CoV-2 (COVID-19) mRNA BNT-162b2 vac 09/03/21 Recorded SARS-CoV-2 (COVID-19) Ad26 vaccine 01/13/21 Record ed zoster vaccine, inactivated 03/13/20 Recorded zoster vaccine, inactivated 12/09/19 Recorded Zoster Vaccine Live 11 12/09/19 Recorded Zoster Vaccine Live 03/13/12 Recorded tetanus/diphtheria/pertussis, acel(Tdap) 10/21/11 Recorded Pneumococcal Vaccine (oldterm) 11/08/06 Given pneumococcal 23-valent vaccine 12 11/08/06 Recorde d 1Result Comment: Unit: Unknown Route: Intramuscular Co Teacher: [employer] 2Result Comment: Route: Intramuscular Co Teacher: [employer] 3Result Comment: Unit: Unknown 4Result Comment: Unit: Unknown 5Result Comment: Unit: Unknown 6Result Comment: Unit: Unknown Route: Intramuscular Co Teacher: Pf[employer] 7Result Comment: Unit: Unknown Route: Intramuscular Co Teacher: Wyeth 8Result Comment: Unit: Unknown 9Result Comment: Route: Intramuscular Co Teacher: [employer] 10Result Comment: Unit: Unknown Route: Intramuscular Co Teacher: Suleiman 11Result Comment: Route: Intramuscular Co Teacher: [employer] 12Result Comment: Unit: Unknown Medications acetaminophen 325 mg oral tablet TAKE 2 TABLETS (650 MG)ORALLY EVERY 6 HOURS NEEDED FOR PAIN, MILD (PAIN SCALE 1-3) Start Date: 09/22/23 Status: Ordered amLODIPine 2.5 mg oral tablet 1 tablet, By Mouth, Daily, # 90 tablet, 0 Refills, Maintenance, 11/12/23 12:11:00 EST, [facility], 170.18, cm, 10/30/23 14:25:00 EST, Height, 127.2, kg, 10/02/23 3:00:00 EST, Dry Weight Start Date: 11/12/23 Status: Ordered atorvastatin 40 mg oral tablet 1 tablet = 40 mg, By Mouth, Daily, # 90 tablet, 3 Refills, Maintenance, 10/27/23 11:06:00 EST, Tablet, [facility]/pharmacy #[id number], Partial fill upon [...] Gm, 11 Refills, Maintenance, 11/17/23 9:45:00 EST, [facility]/pharmacy #[id number], Partial fill upon [...] Replace Required Details, Route to Pharmacy Electronically, [facility]/pharmacy #[id number], Partial fill upon [...] 10/27/23 11:05:00 EST, Route to Pharmacy Electronically, [facility]/pharmacy #[id number], Partial fill upon patientrequest if the prescription is for a schedule II op... Start Date: 10/27/23 Status: Ordered Milk of Magnesia = 1,200 mg, By Mouth, 3 times a day, 0 Refills, Maintenance, 09/22/23 15:30:00 EST, Partial fill upon patient request if the prescription is for a schedule II opioid drug. Start Date: 09/22/23 Status: Ordered nystatin topical [id number] u/gm powder 1 application, Topically, 3 times a day, to rash, # 60 Gm, 0 Refills, Maintenance, 10/27/23 11:02:00 EST, Powder, [facility]/pharmacy #[id number], Partial fill upon [...] tramadol 2Secondary to tramadol and Klonopin overdose Diagnosis Diagnosis Type Effective Dates Health Status Clinical Service Informant Diabetic foot infection Discharge Diagnosis 11/17/23 Diabetes type 2, controlled Discharge Diagnosis 11/17/23 AF (paroxysmal atrial fibrillation) Discharge Diagnosis 11/17/23 Borderline personality disorder Discharge Diagnosis 11/17/23 Major depression in partial remission Discharge Diagnosis 11/17/23 Peripheral arterial disease Discharge Diagnosis 11/17/23 Severe obesity Discharge Diagnosis 11/17/23 Type 2 diabetes mellitus with peripheral neuropathy Discharge Diagnosis 11/17/23 Ulcer of toe due to diabetes Discharge Diagnosis 11/17/23 Vital Signs Most recent to oldest [Reference Range]: 1 Height 170.18 cm (11/17/23 4:01 PM) Weight 141 kg (11/17/23 4:01 PM) Oxygen Saturation [94-100 %] 97 % (11/17/23 4:01 PM) Pulse Rate [55-90 bpm] 111 bpm *H* (11/17/23 4:01 PM) Body Mass Index [18.5-24.99 kg/m2] 48.69 kg/m2 *>HHI* (11/17/23 4:01 PM) Blood Pressure [90-138/55-84 mm Hg] 96/6 9mm Hg (11/17/23 4:01 PM) Blood pressure sites Arm, left (11/17/23 4:01 PM) Social History Social History Type Response Smoking Status Former smoker, quit more than 30 days ago; Other: quit 1973 6 yrs toal 11/13 6; Number of years: 6; Total pack years: 2; entered on: 07/03/23 Sex Patient Care team information Care Team Personnel Name: Armani Reid DO Position: [facility] Renal MD Member Role: Lifetime Consulting Physician Address: Address: [address] [place] [address] [address] [facility] [place] [address]- Name: Erik Kim DO Position: [facility] Physician - Primary Care Member Role: PCP Address: Address: [address] [place] [address]- Care Team Related Persons Name: LORENA HARRISON Address: home [address] [place] [address] Name: LAYNE TREADWELL Address: home [address] [place] [address]
--- OUTSIDE RECORDS SUMMARY | 2024-03-09 15:26 | XMS_ITS | Continuity of Care Document ---
Author Organization [facility] ter Address [address] [place] [id number]- Care Team Providers Care Resort Manager Name Role Phone Erik Kim DO Primary Care Physician [phone] Encounter [facility] Date(s): 09/24/23 - 09/25/[address] [address]- Discharge Disposition: A-D/C Home Attending Physician: Uyen Maxwell MD Admitting Physician: Uyen Maxwell MD Referring Physician: Not on Staff, Referring MD Allergies, Adverse Reactions, Alerts Substance Reaction [...] virus vaccine, inactivated 08/09/17 Avery rded SARS-CoV-2(COVID-19)mRNA-LNP vac([id number]) 08/02/23 Recorded Influenza Virus Vaccine (oldterm) 1 [...] Influenza Virus Vaccine (oldterm) 08/26/11 Recorde d [id number] 12y+ bivalent booster vax 08/06/22 Recorded pneumococcal 13-valent vaccine 6 07/25/22 Recorded pneumococcal 13-valent vaccine 7 12/14/18 Recorded pneumococcal 13-valent vaccine 12/14/18 Recorded pneumococcal 13-valent vaccine 8 06/06/16 Recorded pneumococcal 20-valent conjugate vaccine 07/25/22 Recorded SARS-CoV-2 mRNA (otagxqz-xolt-qgdlo) vax 03/13/22 Recorded SARS-CoV-2 mRNA (usmnlxu-rbbp-qkikp) vax 9 08/21/21 Recorded SARS-CoV-2 mRNA (wgwbwty-ynum-kqrei) vax 10 01/13/21 Recorded SARS-CoV-2 (COVID-19) mRNA BNT-162b2 vac 09/03/21 Recorded SARS-CoV-2 (COVID-19) Ad26 vaccine 01/13/21 Record ed zoster vaccine, inactivated 03/13/20 Recorded zoster vaccine, inactivated 12/09/19 Recorded Zoster Vaccine Live 11 12/09/19 Recorded Zoster Vaccine Live 03/13/12 Recorded tetanus/diphtheria/pertussis, acel(Tdap) 10/21/11 Recorded Pneumococcal Vaccine (oldterm) 11/08/06 Given pneumococcal 23-valent vaccine 12 11/08/06 Recorde d 1Result Comment: Unit: Unknown Route: Intramuscular Aircrewman: Sanofi Pasteur 2Result Comment: Route: Intramuscular Aircrewman: Sanofi Pasteur 3Result Comment: Unit: Unknown 4Result Comment: Unit: Unknown 5Result Comment: Unit: Unknown 6Result Comment: Unit: Unknown Route: Intramuscular Aircrewman: Pfizer 7Result Comment: Unit: Unknown Route: Intramuscular Aircrewman: Wyeth 8Result Comment: Unit: Unknown 9Result Comment: Route: Intramuscular Aircrewman: Sanofi Pasteur 10Result Comment: Unit: Unknown Route: Intramuscular Aircrewman: Suleiman 11Result Comment: Route: Intramuscular Aircrewman: GlaxoSmithKline 12Result Comment: Unit: Unknown Medications acetaminophen [...] opioid drug. Start Date: 09/22/23 Status: Ordered Cymbalta 60 mg oral enteric [...] Replace Required Details, Route to Pharmacy Electronically, [facility]/pharmacy #[id number], Partial fill upon patient reque... Start Date: 09/22/23 Status: Ordered gabapentin 300 mg oral capsule See Instructions, 1 capsule in the morning 2 at bedtime, # 270 capsule, Refills 3, Tot. Refills 3, Maintenance, 09/08/23 17:03:00 EDT, Instructions Replace Required Details, Route to Pharmacy Electronically, [facility]/pharmacy #[id number], Partial fill upon patie... Start Date: 09/08/23 Status: Ordered gabapentin 600 mg oral tablet See Instructions, 1 tablet By Mouth Daily 300mg in AM and 600mg in the PM, Maintenance, 10/20/12 9:53:51 EST, Tablet Start Date: 10/20/12 Status: Ordered hydrOXYzine hydrochloride 25 mg oral tablet 1 tablet = 25 mg, By Mouth, 4 times a day, 0 Refills, Maintenance, 09/22/23 15:28:00 EST, Partial fill upon patient request if the prescription is for a schedule II opioid drug. Start Date: 09/22/23 Status: Ordered Insulin Lispro Subcutaneous Infusion, 0 Refills, Maintenance, 09/22/23 15:29:00 EST, Partial fill upon patient request if the prescription is for a schedule II opioid drug. Start Date: 09/22/23 Status: Ordered Klonopin Tablet = 0.5 mg, By Mouth, 2 times a day, PRN Anxiety Start Date: 11/10/06 Stop Date: 11/13/06 Status: Ordered Lamictal 100 mg oral tablet See Instructions, 1.5 tablet by mouth twice a day, 0 Refills, Maintenance, Tablet Start Date: 10/20/12 Status: Ordered lisinopril [...] opioid drug. Start Date: 09/22/23 Status: Ordered Metformin = 500 mg, By [...] tablet, 3 Refills, Maintenance, 07/21/23 12:40:00 EDT, [facility]/pharmacy #[id number], Partial fill upon patient request [...] tramadol 2Secondary to tramadol and Klonopin overdose Results Radiology Reports * Exam Date Time Procedure Performing Provider Status 09/24/23 9:[address] Cervical Spine W/O Contrast Stupak , Devon; Auth (Verified) Notes: (CT Cervical Spine W/O Contrast) Reason For Exam: Neck trauma, dangerous injury mechanism;Other: RESULT: CT Cervical Spine W/O Contrast CT Head/Brain W/O Contrast, CT Cervical Spine W/O Contrast INDICATION: Hx of Present Illness: pt had a fall at independent living, pos head strike, no loc.; Reason: Trauma; Clinical Question(s): Hematoma TECHNIQUE: Noncontrast head CT using axial technique was reconstructed in axial and coronal planes.Noncontrast spiral CT through the cervical spine was formatted in 3 planes. Automatic tube modulation was used for the cervical spine and iterative dose reconstruction was used for both the head and cervical spine to optimize scan parameters and image quality. CTDIvol Body: 18.10 mGy, DLP Body: 475 mGy*cm. CTDIvol Head: 45.80 mGy, DLP Head: 773 mGy*cm. COMPARISON: 12/24/2005. FINDINGS: Frame Nailer View Findings, Lines and Tubes: None. BRAIN AND EXTRA-AXIAL SPACES: No parenchymal hemorrhage, midline shift, or mass effect. Isaac-white matter differentiation is wellpreserved. 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 No acute infarct. Negative insular ribbon sign. Atherosclerotic vascular calcification of the carotid arteries but negative hyperdense vessel sign. Mild prominence of the ventricles and sulci consistent with parenchymal volume loss. Mild low-density white matter changes. No subarachnoid hemorrhage. No subdural or epidural collection. CALVARIUM, SKULL BASE, AND SOFT TISSUES: No fractures or suspicious bony lesions. The paranasal sinuses and mastoid air cells are clear. Status-post bilateral lens extraction. The extracranial soft tissues are unremarkable. CERVICAL SPINE: No fracture. No acute osseous abnormalities. Normal alignment. No locked or perched facet. Moderate multilevel degenerative disc space narrowingand end plate irregularity. OTHER BONES: No acute abnormality. CERVICAL SOFT TISSUES AND LUNG APICES: Normal soft tissues. Visualized lung apices are clear. No thyroid nodule large enough to warrant follow up. IMPRESSION: No acute abnormality of the head or cervical spine. I have personally reviewed the images and I agree with this report. WSN: [id number] Ordering Physician: Thomas Stevens Dictated By: Pancho[Radiology] Garrett SUMMERS Dictated Date/Time: 09/24/23 9:42 pm Reviewed By: Kye Sánchez MD Signed By: Kye Sánchez MD Signed Date/Time: 09/24/23 9:47 pm Transcribed By: JULIA Transcribed Date/Time: 09/24/23 9:24 pm * Exam Date Time Procedure Performing Provider Status 09/24/23 9:[address] Head/Brain W/O Contrast Stupak , O leg; Auth (Verified) Notes: (CT Head/Brain W/O Contrast) Reason For Exam: Trauma RESULT: CT Head/Brain W/O Contrast CT Head/Brain W/O Contrast, CT Cervical Spine W/O Contrast INDICATION: Hx of Present Illness: pt had a fall at independent living, pos head strike, no loc.; Reason: Trauma; Clinical Question(s): Hematoma TECHNIQUE: Noncontrast head CT using axial technique was reconstructed in axial and coronal planes.Noncontrast spiral CT through the cervical spine was formatted in 3 planes. Automatic tube modulation was used for the cervical spine and iterative dose reconstruction was used for both the head and cervical spine to optimize scan parameters and image quality. CTDIvol Body: 18.10 mGy, DLP Body: 475 mGy*cm. CTDIvol Head: 45.80 mGy, DLP Head: 773 mGy*cm. COMPARISON: 12/24/2005. FINDINGS: Frame Nailer View Findings, Lines and Tubes: None. BRAIN AND EXTRA-AXIAL SPACES: No parenchymal hemorrhage, midline shift, or mass effect. Isaac-white matter differentiation is wellpreserved. 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 No acute infarct. Negative insular ribbon sign. Atherosclerotic vascular calcification of the carotid arteries but negative hyperdense vessel sign. Mild prominence of the ventricles and sulci consistent with parenchymal volume loss. Mild low-density white matter changes. No subarachnoid hemorrhage. No subdural or epidural collection. CALVARIUM, SKULL BASE, AND SOFT TISSUES: No fractures or suspicious bony lesions. The paranasal sinuses and mastoid air cells are clear. Status-post bilateral lens extraction. The extracranial soft tissues are unremarkable. CERVICAL SPINE: No fracture. No acute osseous abnormalities. Normal alignment. No locked or perched facet. Moderate multilevel degenerative disc space narrowingand end plate irregularity. OTHER BONES: No acute abnormality. CERVICAL SOFT TISSUES AND LUNG APICES: Normal soft tissues. Visualized lung apices are clear. No thyroid nodule large enough to warrant follow up. IMPRESSION: No acute abnormality of the head or cervical spine. I have personally reviewed the images and I agree with this report. WSN: [id number] Ordering Physician: Thomas Stevens Dictated By: Pancho[Radiology] Garrett SUMMERS Dictated Date/Time: 09/24/23 9:42 pm Reviewed By: Kye Sánchez MD Signed By: Kye Sánchez MD Signed Date/Time: 09/24/23 9:47 pm Transcribed By: JULIA Transcribed Date/Time: 09/24/23 9:24 pm * Exam Date Time Procedure Performing Provider Status 09/24/23 8:58 PM Knee 1 or 2 Views Right Georgina Thao; Auth (Verified) Notes: (Knee 1 or 2 Views Right) Reason For Exam: with Pain;Trauma RESULT: Knee 1 or 2 Views Right Knee 1 or 2 Views Right, 2 views Hx of Present Illness: pt had a fall at independent living, pos head strike, no loc.; Reason: Trauma; with Pain; Clinical Question(s): Fracture COMPARISON: None. FINDINGS: Severe tricompartment osteoarthritis. No definite fracture or significant knee joint effusion. IMPRESSION: No acute osseous injury identified. WSN: [id number] Ordering Physician: Thomas Stevens Dictated By: Ric Schmidt MD Dictated Date/Time: 09/24/23 9:00 pm Reviewed By: Ric Schmidt MD Signed By: Ric Schmidt MD Signed Date/Time: 09/24/23 9:00 pm Transcribed By: JULIA Transcribed Date/Time: 09/24/23 8:58 pm Vital Signs Most recent to oldest [Reference Range]: 1 2 Oxygen Saturation [94-100 %] 99 % (09/25/23 12:29 AM) 99 % (09/24/23 8:02 PM) Pulse Rate [55-90 bpm] 91 bpm *H* (09/25/23 12:29 AM) 76 bpm (09/24/23 8:02 PM) Blood Pressure [90-138/55-84 mm Hg] 140/ 78mm Hg *H* (09/25/23 12:29 AM) 133/74mm Hg (09/24/23 8:02 PM) Respiratory Rate [16-30 br/min] 16 br/mi n (09/25/23 12:29 AM) 16 br/min (09/24/23 8:02 PM) Temperature [96.8-100.4 DegF] 97.9 DegF (09/24/23 8:02 PM) Mode of Delivery (Oxygen) Room air (09/25/23 12:29 AM) Room air (09/24/23 8:02 PM) Temperature Route Oral (09/24/23 8:02 PM) Social History Social History Type Response Smoking Status Former smoker, quit more than 30 days ago; Other: quit 1973 6 yrs toal 11/13 6; Number of years: 6; Total pack years: 2; entered on: 07/03/23 Sex Note * Hilda MILLER, Thomas Martell: PERFORM Event Display: Patient Education Leaflets Authored Date: [id number] Fall??Prevention ?? [id number] Fall??Prevention Falls often take place due to slipping, tripping, or losing your balance. Millions of people fall every year and injure themselves.??Among older adults in the [place] falls are the most common cause oftraumatic brain injuries. Every 20 minutes, an older adult dies from a fall. Here are ways to reduce your risk of falling again: ??? Think about your fall. Was there anything that caused your fall that can be fixed, removed, or replaced? Make your home safe by keeping walkways clear of objects you may trip over, such as electrical cords. ??? Use nonslip pads under rugs. Don't use area rugs orsmall throw rugs. ??? Use nonslip mats in bathtubs and showers. ??? Hang grab rails by the toilet and inside and outside the shower. ??? Install handrails and lights on staircases. The handrails should be on both sides of the stairs. ??? Use night lights. ??? Don't walk in poorly lit areas. ??? Don't stand on chairs or wobbly ladders. ??? Use care when reaching overhead or looking up.??This position can cause a loss of balance. ??? Be sure your shoes fit well, are in good condition, and have non slip bottoms.? Wear shoes both inside and outside of your home. Don't go barefoot or wear slippers. ??? Be cautious when going up and down stairs, curbs, and when walking on uneven sidewalks. ??? If your balance is poor, consider using a cane or walker. Talk with your healthcare provider abouthaving a balance assessment. ??? If your fall was related to alcohol use, stop or limit alcohol intake.??Ask your provider for help if you think you may overuse alcohol and can't stop. ??? If your fall was related to use of sleeping medicines, talk with your provider about this.??You may need to reduce your dosage at bedtime if you wake up during the night to go to the bathroom.? To reducethe need for nighttime bathroom trips: o Don't drink fluids for several hours before going to bed oEmpty your bladder before going to bed o Men can keep a urinal at the bedside ??? Stay as active asyou can. Balance, flexibility, strength, and endurance all come from exercise. They all play a rolein preventing falls. Ask your provider which types of activity are right for you. Try to do some type of exercise every day. ??? Get your eyes checked once a year or more often if your vision changes??? If you have pets, know where they are before you stand up or walk so you don't trip over them. ??? Go over all your medicines with a pharmacist or other provider. This is to see if any of them could make you more likely to fall. Have this type of medicine review at least once every year. ??? Ifyour provider advises a new medicine, ask if the side effects will affect your balance. ??? Don't move quickly from one position to another. For instance, don't stand up fast from sitting. This can cause dizziness and may lead to a fall. ??? Sit down when putting on pants, socks, and shoes. This will make you less likely to lose your balance and fall. ??? Always let your provider know if you havefallen since your last visit. ??? Contact your provider right away if you're having balance problems or falling more often. Last Reviewed Date: 2021 ?? [employer]. All rights reserved. This information is not intended as a substitute for professional medical care. Always follow your healthcare professional's instructions. ?? * Hilda MILLER, Thomas Martell: PERFORM Event Display: Patient Education Leaflets Authored Date: [id number] Fall with Uncertain Cause ?? [id number] Fall with Uncertain Cause You had a fall today. But the cause of your fall is not certain. Falls can happen due to slipping, tripping, or losing your balance. A fall can also happen from a fainting spell or seizure. A fall can happen for a simple reason (such as tripping over something). But falls in older adults are often caused by a combination of things: ??? Age-related decline in function with worsening balance, stability, vision, and muscle strength ??? Chronic illness, such as heart arrhythmias, heart valve disease, vascular disease, COPD, diabetes, stroke, or arthritis ??? Shoes with lack of support that make you likely to slip or slide ??? Anemia or low blood pressure? Effects or side effects of medicines ??? Fluid loss (dehydration) orrecent alcohol use ??? Hazards in your home or around you, such as??uneven surfaces, slippery ground, an unfamiliar place, or obstacles ??? Something linked to an activity you were doing, such as rushing to the bathroom The cause of your fall today is not certain. So it's possible that it was due to a fainting spell or seizure. This means that it could happen again without warning. If you fall again without a cause,come back to this facility right away for more tests. Or follow up with your healthcare provider asexplained below. It's normal to feel sore and tight in your muscles and back the next day, and not just the muscles you first injured. All the parts of your body are connected. So while at first one area hurts, the next day another may hurt. Also, when you injure yourself, it causes inflammation. This makes your muscles tighten up and hurt more. After that, it should slowly improve over the next few days. Tell your provider if you have any more severe pain. Even without a definite head injury, you can still get a concussion. Concussions and bleeding can still happen, especially if you had a recent injury. Or if you take blood-thinner medicine. You may also have a mild headache. And you may feel tired and even nauseous or dizzy. Home care ??? Rest today and resume your normal activities as soon as you feel normal again. It's best to stay with someone. They can check on you for the next 24 hours to see if you fall again. ??? If you were hurt during the fall, follow your healthcare provider's advice on caring for your injury. ??? If you get lightheaded or dizzy, lie down right away. Or sit and lean forward with your head down. ??? For your safety, until you see your healthcare provider: o Don't drive a car or operate dangerous equipment. o Don't take a bath or shower alone. o Don't swim alone. A condition causing fainting or seizures must be ruled out before doing these activities. ??? You may use acetaminophen or ibuprofen to control pain, unless another pain medicine was prescribed. Talk with your provider beforeusing these medicines if you: o Have chronic liver or kidney disease o Ever had a stomach ulcer or??gastrointestinal bleeding o Take blood- thinning medicines ??? Keep your appointments for any further testing that may have been scheduled for you. ?? Follow-up care Follow up with your healthcare provider, or as advised. If X-rays or a CT scan were done, you will be told if there is a change in the reading, especially if it affects treatment. ?? Call 911 Call 911 if any of these happen: ??? Trouble breathing ??? Confusion ??? Trouble waking up ??? Fainting or loss of consciousness ??? Fast or very slow heart rate ??? Seizure ??? Speech or vision problems ??? Arm or leg weakness ??? Trouble walking or talking, loss of balance, numbness or weakness on one side of your body, or facial droop ?? When to get medical advice Call your healthcare provider right away if any of these happen: ??? Another unexplained fall ??? Dizziness ??? Severe headache ??? Nausea and vomiting ??? Blood in vomit, stools (black or red color) ?? Last Reviewed Date: 2022 ?? [id number] [employer]. All rights reserved. This information is not intended as a substitute for professional medical care. Always follow your healthcare professional's instructions. ?? Patient Care team information Care Team Personnel Name: Armani Reid DO Position: [facility] Renal MD Member Role: Lifetime Consulting Physician Address: Address: [address] [facility] [place] [address]- Name: Erik Kim DO Position: [facility] Physician - Primary Care Member Role: PCP Address: Address: [address] [place] [address]- Name: Thomas Rubio Position: [facility] Associate Professional Member Role: ED Physician Used Car Salesperson Address: Address: [address] [place] [address]- Name: Jaqcue Stephens RN Position: [facility] ED RN W/OE and Tasks Member Role: Patient Care Provider Name: Brittani Odom RN Position: [facility] ED RN W/OE and Tasks Member Role: Patient Care Provider Name: Uyen Maxwell MD Position: [facility] Resident Member Role: ED Attending Physician Address: Address: [address] [place] [address]- Name: Merced Prince Position: [facility] ED TA [facility] Member Role: Patient Care Provider Care Team Related Persons Name: LORENA HARRISON Address: home [address] [place] [address] Name: LAYNE TREADWELL Address: home [address] [place] [address]
--- OUTSIDE RECORDS SUMMARY | 2024-03-09 15:26 | XMS_ITS | Continuity of Care Document ---
Author Organization [facility] Medicine Address [address] [place] [address]- Care Team Providers Care Service Inspector Name Role Phone Erik Kim DO Primary Care Physician Encounter [facility] Date(s): 09/16/23 - 10/16/[address] [address]- Allergies, Adverse Reactions, Alerts Substance Reaction Severity [...] virus vaccine, inactivated 08/09/17 Avery rded SARS-CoV-2(COVID-19)mRNA-LNP vac([id number]) 08/02/23 Recorded Influenza Virus Vaccine (oldterm) 1 [...] Influenza Virus Vaccine (oldterm) 08/26/11 Recorde d [id number] 12y+ bivalent booster vax 08/06/22 Recorded pneumococcal 13-valent vaccine 6 07/25/22 Recorded pneumococcal 13-valent vaccine 7 12/14/18 Recorded pneumococcal 13-valent vaccine 12/14/18 Recorded pneumococcal 13-valent vaccine 8 06/06/16 Recorded pneumococcal 20-valent conjugate vaccine 07/25/22 Recorded SARS-CoV-2 mRNA (mjiddfj-qxhe-dveie) vax 03/13/22 Recorded SARS-CoV-2 mRNA (sroojvw-uqtd-enphw) vax 9 08/21/21 Recorded SARS-CoV-2 mRNA (wwchcrn-ibrz-cfbln) vax 10 01/13/21 Recorded SARS-CoV-2 (COVID-19) mRNA BNT-162b2 vac 09/03/21 Recorded SARS-CoV-2 (COVID-19) Ad26 vaccine 01/13/21 Record ed zoster vaccine, inactivated 03/13/20 Recorded zoster vaccine, inactivated 12/09/19 Recorded Zoster Vaccine Live 11 12/09/19 Recorded Zoster Vaccine Live 03/13/12 Recorded tetanus/diphtheria/pertussis, acel(Tdap) 10/21/11 Recorded Pneumococcal Vaccine (oldterm) 11/08/06 Given pneumococcal 23-valent vaccine 12 11/08/06 Recorde d 1Result Comment: Unit: Unknown Route: Intramuscular Public Health Teacher: Sanofi Pasteur 2Result Comment: Route: Intramuscular Public Health Teacher: Sanofi Pasteur 3Result Comment: Unit: Unknown 4Result Comment: Unit: Unknown 5Result Comment: Unit: Unknown 6Result Comment: Unit: Unknown Route: Intramuscular Public Health Teacher: [employer] 7Result Comment: Unit: Unknown Route: Intramuscular Public Health Teacher: [employer] 8Result Comment: Unit: Unknown 9Result Comment: Route: Intramuscular Public Health Teacher: Sanofi Pasteur 10Result Comment: Unit: Unknown Route: Intramuscular Public Health Teacher: [employer] 11Result Comment: Route: Intramuscular Public Health Teacher: [employer] 12Result Comment: Unit: Unknown Medications acetaminophen 325 [...] Replace Required Details, Route to Pharmacy Electronically, [facility]/pharmacy #[id number], Partial fill upon patient reque... Start Date: [...] Team Personnel Name: Armani Reid DO Position: [facility] Renal MD Member Role: Lifetime Consulting Physician Address: Address: [address] [facility] [place] [address]- Name: Erik Kim DO Position: [facility] Physician - Primary Care Member Role: PCP Address: Address: [address] [place], [place] [address] Care Team Related Persons Name: LORENA HARRISON Address: home [address] [place] [address] Name: LAYNE TREADWELL Address: home [address] [place] [address]
--- OUTSIDE RECORDS SUMMARY | 2024-03-09 15:26 | XMS_ITS | Continuity of Care Document ---
Author Organization [facility] Syed Gene lt Address [address] [place] [address]- Care Team Providers Care Claims Support Specialist Name Role Phone Erik Kim DO Primary Care Physician [facility] 10[facility]23 - 11/26/23 [facility] Adult [address] [place] [address]- Allergies, Adverse Reactions, Alerts Substance Reaction Severity [...] virus vaccine, inactivated 08/09/17 Avery rded SARS-CoV-2(COVID-19)mRNA-LNP vac([id number]) 08/02/23 Recorded Influenza Virus Vaccine (oldterm) 1 [...] Influenza Virus Vaccine (oldterm) 08/26/11 Recorde d [id number] 12y+ bivalent booster vax 08/06/22 Recorded pneumococcal 13-valent vaccine 6 07/25/22 Recorded pneumococcal 13-valent vaccine 7 12/14/18 Recorded pneumococcal 13-valent vaccine 12/14/18 Recorded pneumococcal 13-valent vaccine 8 06/06/16 Recorded SARS-CoV-2 mRNA (gtilxlo-mbkt-tfdjm) vax 03/13/22 Recorded SARS-CoV-2 mRNA (rdjqunj-vrqm-lqien) vax 9 08/21/21 Recorded SARS-CoV-2 mRNA (pwfucpj-kyad-sxngt) vax 10 01/13/21 Recorded SARS-CoV-2 (COVID-19) mRNA BNT-162b2 vac 09/03/21 Recorded SARS-CoV-2 (COVID-19) Ad26 vaccine 01/13/21 Record ed zoster vaccine, inactivated 03/13/20 Recorded zoster vaccine, inactivated 12/09/19 Recorded Zoster Vaccine Live 11 12/09/19 Recorded Zoster Vaccine Live 03/13/12 Recorded tetanus/diphtheria/pertussis, acel(Tdap) 10/21/11 Recorded Pneumococcal Vaccine (oldterm) 11/08/06 Given pneumococcal 23-valent vaccine 12 11/08/06 Recorde d 1Result Comment: Unit: Unknown Route: Intramuscular Voip Network Engineer: Sanofi Pasteur 2Result Comment: Route: Intramuscular Voip Network Engineer: Sanofi Pasteur 3Result Comment: Unit: Unknown 4Result Comment: Unit: Unknown 5Result Comment: Unit: Unknown 6Result Comment: Unit: Unknown Route: Intramuscular Voip Network Engineer: Pfizer 7Result Comment: Unit: Unknown Route: Intramuscular Voip Network Engineer: Wyeth 8Result Comment: Unit: Unknown 9Result Comment: Route: Intramuscular Voip Network Engineer: Sanofi Pasteur 10Result Comment: Unit: Unknown Route: Intramuscular Voip Network Engineer: Suleiman 11Result Comment: Route: Intramuscular Voip Network Engineer: GlaxoSmithKline 12Result Comment: Unit: Unknown Medications acetaminophen 325 mg oral tablet TAKE 2 TABLETS (650 MG)ORALLY EVERY 6 HOURS NEEDED FOR PAIN, MILD (PAIN SCALE 1-3) Start Date: 09/22/23 Status: Ordered amLODIPine 2.5 mg oral tablet 1 tablet, By Mouth, Daily, # 90 tablet, 0 Refills, Maintenance, 11/12/23 12:11:00 EST, [facility], 170.18, cm, 10/30/23 14:25:00 EST, Height, 127.2, kg, 10/02/23 3:00:00 EST, Dry Weight Start Date: 11/12/23 Status: Ordered atorvastatin 40 mg oral tablet 1 tablet = 40 mg, By Mouth, Daily, # 90 tablet, 3 Refills, Maintenance, 10/27/23 11:06:00 EST, Tablet, [facility]/pharmacy #[id number], Partial fill upon patient request if [...] Gm, 11 Refills, Maintenance, 11/17/23 9:45:00 EST, [facility]/pharmacy #[id number], Partial fill upon patient request if [...] Replace Required Details, Route to Pharmacy Electronically, [facility]/pharmacy #[id number], Partial fill upon patient reque... Start Date: 10/27/23 Status: Ordered Gemtesa 75 mg oral tablet 1 tablet = 75 mg, By Mouth, Daily, # 30 tablet, 11 Refills, Maintenance, 11/17/23 9:45:00 EST, [facility]/pharmacy #[id number], Partial fill upon patient request if [...] 10/27/23 11:05:00 EST, Route to Pharmacy Electronically, [facility]/pharmacy #[id number], Partial fill upon patientrequest if the prescription is for a schedule II op... Start Date: 10/27/23 Status: Ordered Milk of Magnesia = 1,200 mg, By Mouth, 3 times a day, 0 Refills, Maintenance, 09/22/23 15:30:00 EST, Partial fill upon patient request if the prescription is for a schedule II opioid drug. Start Date: 09/22/23 Status: Ordered nystatin topical [id number] u/gm powder 1 application, Topically, 3 times [...] Team Personnel Name: Armani Reid DO Position: [facility] Renal MD Member Role: Lifetime Consulting Physician Address: Address: [address] [place] [address] [address] [facility] [place] [address]- Name: Erik Kim DO Position: [facility] Physician - Primary Care Member Role: PCP Address: Address: [address] [place] [address]- [place] Care Team Related Persons Name: LORENA HARRISON Address: home [address] [place] [address] Name: LAYNE TREADWELL Address: [address] [place] [address]
--- OUTSIDE RECORDS SUMMARY | 2024-03-09 15:26 | XMS_ITS | Continuity of Care Document ---
Author Organization [facility] Syed Gene lt Address [address] [place] [address]- Care Team Providers Care Access Control Officer Name Role Phone Erik Kim DO Primary Care Physician [phone] [facility] 10[facility]23 - 11/07/23 [facility] Adult [address] [place] [address]- Attending Physician: Keke Bucio Allergies, Adverse Reactions, Alerts Substance Reaction Severity [...] virus vaccine, inactivated 08/09/17 Avery rded SARS-CoV-2(COVID-19)mRNA-LNP vac([id number]) 08/02/23 Recorded Influenza Virus Vaccine (oldterm) 1 [...] Influenza Virus Vaccine (oldterm) 08/26/11 Recorde d [id number] 12y+ bivalent booster vax 08/06/22 Recorded pneumococcal 13-valent vaccine 6 07/25/22 Recorded pneumococcal 13-valent vaccine 7 12/14/18 Recorded pneumococcal 13-valent vaccine 12/14/18 Recorded pneumococcal 13-valent vaccine 8 06/06/16 Recorded SARS-CoV-2 mRNA (aiwypyi-nknl-qonxl) vax 03/13/22 Recorded SARS-CoV-2 mRNA (ufghipr-msgx-zswtb) vax 9 08/21/21 Recorded SARS-CoV-2 mRNA (atywfyd-khuo-pkdtc) vax 10 01/13/21 Recorded SARS-CoV-2 (COVID-19) mRNA BNT-162b2 vac 09/03/21 Recorded SARS-CoV-2 (COVID-19) Ad26 vaccine 01/13/21 Record ed zoster vaccine, inactivated 03/13/20 Recorded zoster vaccine, inactivated 12/09/19 Recorded Zoster Vaccine Live 11 12/09/19 Recorded Zoster Vaccine Live 03/13/12 Recorded tetanus/diphtheria/pertussis, acel(Tdap) 10/21/11 Recorded Pneumococcal Vaccine (oldterm) 11/08/06 Given pneumococcal 23-valent vaccine 12 11/08/06 Recorde d 1Result Comment: Unit: Unknown Route: Intramuscular Stucco Plasterer: Sanofi Pasteur 2Result Comment: Route: Intramuscular Stucco Plasterer: Sanofi Pasteur 3Result Comment: Unit: Unknown 4Result Comment: Unit: Unknown 5Result Comment: Unit: Unknown 6Result Comment: Unit: Unknown Route: Intramuscular Stucco Plasterer: Pfizer 7Result Comment: Unit: Unknown Route: Intramuscular Stucco Plasterer: Wyeth 8Result Comment: Unit: Unknown 9Result Comment: Route: Intramuscular Stucco Plasterer: Sanofi Pasteur 10Result Comment: Unit: Unknown Route: Intramuscular Stucco Plasterer: Suleiman 11Result Comment: Route: Intramuscular Stucco Plasterer: GlaxoSmithKline 12Result Comment: Unit: Unknown Medications acetaminophen [...] 3 Refills, Maintenance, 10/27/23 11:06:00 EST, Tablet, [facility]/pharmacy #[id number], Partial fill upon patient request [...] Replace Required Details, Route to Pharmacy Electronically, [facility]/pharmacy #[id number], Partial fill upon patient reque... Start Date: 10/27/23 Status: Ordered hydrOXYzine hydrochloride 25 mg oral [...] EST, Tablet Start Date: 10/20/12 Status: Ordered levoFLOXacin 750 mg oral tablet 1 tablet = 750 mg, By Mouth, Every 24 hours, for 10 days, # 10 tablet, 0 Refills, Acute 11/16/23 17:37:00 EST, 11/06/23 17:37:00 EST, Tablet, [facility]/pharmacy #[id number], Partial fill upon patient request if the prescription is for a schedule II opioid drug.,... Start Date: 11/06/23 Stop Date: 11/16/23 Status: Ordered lisinopril 40 mg oral tablet [...] 10/27/23 11:05:00 EST, Route to Pharmacy Electronically, [facility]/pharmacy #[id number], Partial fill upon patientrequest if the prescription is for a schedule II op... Start Date: 10/27/23 Status: Ordered Milk of Magnesia = 1,200 mg, By Mouth, 3 times a day, 0 Refills, Maintenance, 09/22/23 15:30:00 EST, Partial fill upon patient request if the prescription is for a schedule II opioid drug. Start Date: 09/22/23 Status: Ordered nystatin topical [id number] u/gm powder 1 application, Topically, 3 times a day, to rash, # 60 Gm, 0 Refills, Maintenance, 10/27/23 11:02:00 EST, Powder, [facility]/pharmacy #[id number], Partial fill upon patient request [...] Confirmed 10/20/12 Active Chronic rhinosinusitis Confirmed Active Wound of foot Confirmed Active [...] more than 30 days ago; Other: quit 1972 6 yrs toal 11/13 6; Number of years: 6; Total pack years: 2; entered on: 07/03/23 Sex Patient Care team information Care Team Personnel Name: Armani Reid DO Position: [facility] Renal MD Member Role: Lifetime Consulting Physician Address: Address: [address] [place] [address] [address] [facility] [place] [address]- Name: Erik Kim DO Position: [facility] Physician - Primary Care Member Role: PCP Address: Address: [address] [facility] [place] [address]- Care Team Related Persons Name: LORENA HARRISON Address: home [address] [place] [address] Name: LAYNE TREADWELL Address: home [address] [place] [address]
--- OUTSIDE RECORDS SUMMARY | 2024-03-09 15:26 | XMS_ITS | Continuity of Care Document ---
Author Organization [facility] Eric Lynch Gene Address [address] [place] [address]- Care Team Providers Care Passport Application Examiner Name Role Phone Erik Kim DO Primary Care Physician [facility]): 01/22/24 - 02/21/24 [facility] Adult [address] [place] [address]- Allergies, Adverse Reactions, Alerts Substance Reaction Severity Status Myrbeml Chavarria Active Immunizations Given and Recorded Vaccine [...] virus vaccine, inactivated 08/09/17 Avery rded SARS-CoV-2(COVID-19)mRNA-LNP vac([id number]) 08/02/23 Recorded Influenza Virus Vaccine (oldterm) 1 [...] Influenza Virus Vaccine (oldterm) 08/26/11 Recorde d [id number] 12y+ bivalent booster vax 08/06/22 Recorded pneumococcal 13-valent vaccine 6 07/25/22 Recorded pneumococcal 13-valent vaccine 7 12/14/18 Recorded pneumococcal 13-valent vaccine 12/14/18 Recorded pneumococcal 13-valent vaccine 8 06/06/16 Recorded SARS-CoV-2 mRNA (wukglqb-wqaw-azesd) vax 03/13/22 Recorded SARS-CoV-2 mRNA (ocwkyvi-fjbv-mmcpy) vax 9 08/21/21 Recorded SARS-CoV-2 mRNA (kzcgjce-bmil-gbhbz) vax 10 01/13/21 Recorded SARS-CoV-2 (COVID-19) mRNA BNT-162b2 vac 09/03/21 Recorded SARS-CoV-2 (COVID-19) Ad26 vaccine 01/13/21 Record ed zoster vaccine, inactivated 03/13/20 Recorded zoster vaccine, inactivated 12/09/19 Recorded Zoster Vaccine Live 11 12/09/19 Recorded Zoster Vaccine Live 03/13/12 Recorded tetanus/diphtheria/pertussis, acel(Tdap) 10/21/11 Recorded Pneumococcal Vaccine (oldterm) 11/08/06 Given pneumococcal 23-valent vaccine 12 11/08/06 Recorde d 1Result Comment: Unit: Unknown Route: Intramuscular Consumer Sales Representative: Sanofi Pasteur 2Result Comment: Route: Intramuscular Consumer Sales Representative: Sanofi Pasteur 3Result Comment: Unit: Unknown 4Result Comment: Unit: Unknown 5Result Comment: Unit: Unknown 6Result Comment: Unit: Unknown Route: Intramuscular Consumer Sales Representative: Pfizer 7Result Comment: Unit: Unknown Route: Intramuscular Consumer Sales Representative: Wyeth 8Result Comment: Unit: Unknown 9Result Comment: Route: Intramuscular Consumer Sales Representative: Sanofi Pasteur 10Result Comment: Unit: Unknown Route: Intramuscular Consumer Sales Representative: TwoF 11Result Comment: Route: Intramuscular Consumer Sales Representative: GlaxoSmithKline 12Result Comment: Unit: Unknown Medications acetaminophen 325 mg oral tablet TAKE 2 TABLETS (650 MG)ORALLY EVERY 6 HOURS NEEDED FOR PAIN, MILD (PAIN SCALE 1-3) Start Date: 09/22/23 Status: Ordered atorvastatin 40 mg oral tablet 1 tablet = 40 mg, By Mouth, Daily, # 90 tablet, 3 Refills, Maintenance, 10/27/23 11:06:00 EST, Tablet, [facility]/pharmacy #[id number], Partial fill upon patient request if [...] 0 Refills, Maintenance, 12/23/23 17:15:00 EST, [facility] [address], 170.18, cm, 12/17/23 10:17:00 EST, Height, 127.2, kg, 10/02/23 3:00:00 EST, Dry Weight Start Date: 12/23/23 Status: Ordered estradiol 0.1 mg/g vaginal cream = 1 Gm, Vaginally, Daily at bedtime, # 30 Gm, 11 Refills, Maintenance, 11/17/23 9:45:00 EST, [facility]/pharmacy #[id number], Partial fill upon patient request if [...] Required Details, Route to Pharmacy Electronically, [facility]/pharmacy #[id number], Partial fill upon patient reque... Start Date: 10/27/23 Status: Ordered Gemtesa 75 mg oral tablet 1 tablet = 75 mg, By Mouth, Daily, # 30 tablet, 11 Refills, Maintenance, 11/17/23 9:45:00 EST, [facility]/pharmacy #[id number], Partial fill upon patient request if [...] 04/01/24 21:50:00 EDT, 02/01/24 21:50:00 EDT, Tablet, [facility]/pharmacy #[id number], Part... Start Date: 02/01/24 Stop Date: 04/01/24 Status: Ordered metFORMIN 500 mg oral tablet 1 tablet = 500 mg, By Mouth, 2 times a day, # 180 tablet, 2 Refills, Maintenance, 12/23/23 17:13:00EST, Tablet, [facility]/pharmacy #[id number], Partial fill upon patient request if the prescription is for a schedule II opioid drug., 170.18, cm, 12/17/23 10:17:00... Start Date: 12/23/23 Status: Ordered metoprolol 50 mg oral tablet 50 mg, 1, tablet, By Mouth, 2 times a day, # 180 tablet, Refills 3, Tot. Refills 3, Maintenance, 10/27/23 11:05:00 EST, Route to Pharmacy Electronically, [facility]/pharmacy #[id number], Partial fill upon patientrequest if the prescription is for a schedule II op... Start Date: 10/27/23 Status: Ordered nystatin topical [id number] u/gm powder See Instructions, APPLY TOPICALLY 3 TIMES A DAY TO RASH, # 60 Gm, 1 Refills, Maintenance, 02/02/24 7:47:00 EDT, [id number], 30, APPLY TOPICALLY 3 TIMES A DAY TO RASH, 170, cm, 01/19/24 14:19:00 EDT, Height, 136, kg, 01/17/24 9:30:00 EST, Dry Weight Start Date: 02/02/24 Status: Ordered omeprazole 40 mg oral enteric coated capsule 1 capsule = 40 mg, By Mouth, Daily, # 90 capsule, 3 Refills, Maintenance, 12/23/23 17:13:00 EST, ECCapsule, [facility]/pharmacy #[id number], Partial fill upon patient request if the [...] Team Personnel Name: Armani Reid DO Position: [facility] Renal MD Member Role: Lifetime Consulting Physician Address: Address: [address] [place] [address] [address] [facility] [place] [address]- Name: Maynor Lyons RN Position: [facility] RN Member Role: Primary Care Nurse Name: Erik Kim DO Position: [facility] Physician - Primary Care Member Role: PCP Address: Address: [address] [place] [id number]- Name: Dianna Frost RN Position: [facility] RN Member Role: Primary Care Nurse Care Team Related Persons Name: LORENA HARRISON Address: home [address] [place] [address] Name: LAYNE TREADWELL Address: home [address] [place] [address]
--- OUTSIDE RECORDS SUMMARY | 2024-03-09 15:26 | XMS_ITS | Continuity of Care Document ---
Author Organization [facility] Eric Lynch Gene lt Address [address] [place] [address]- Care Team Providers Care Fine Grader Name Role Phone Erik Kim DO Primary Care Physician [facility]23 - 12/14/23 [facility] Eric [facility]ley Adult [address] [place] [address]- Allergies, Adverse Reactions, Alerts Substance Reaction Severity [...] virus vaccine, inactivated 08/09/17 Avery rded SARS-CoV-2(COVID-19)mRNA-LNP vac([id number]) 08/02/23 Recorded Influenza Virus Vaccine (oldterm) 1 [...] Influenza Virus Vaccine (oldterm) 08/26/11 Recorde d [id number] 12y+ bivalent booster vax 08/06/22 Recorded pneumococcal 13-valent vaccine 6 07/25/22 Recorded pneumococcal 13-valent vaccine 7 12/14/18 Recorded pneumococcal 13-valent vaccine 12/14/18 Recorded pneumococcal 13-valent vaccine 8 06/06/16 Recorded SARS-CoV-2 mRNA (wfjpacg-mexp-lotve) vax 03/13/22 Recorded SARS-CoV-2 mRNA (orwjqgf-ezjt-mkxqo) vax 9 08/21/21 Recorded SARS-CoV-2 mRNA (knsapfr-jpif-xcieq) vax 10 01/13/21 Recorded SARS-CoV-2 (COVID-19) mRNA BNT-162b2 vac 09/03/21 Recorded SARS-CoV-2 (COVID-19) Ad26 vaccine 01/13/21 Record ed zoster vaccine, inactivated 03/13/20 Recorded zoster vaccine, inactivated 12/09/19 Recorded Zoster Vaccine Live 11 12/09/19 Recorded Zoster Vaccine Live 03/13/12 Recorded tetanus/diphtheria/pertussis, acel(Tdap) 10/21/11 Recorded Pneumococcal Vaccine (oldterm) 11/08/06 Given pneumococcal 23-valent vaccine 12 11/08/06 Recorde d 1Result Comment: Unit: Unknown Route: Intramuscular Provisioning Analyst: Sanofi Pasteur 2Result Comment: Route: Intramuscular Provisioning Analyst: Sanofi Pasteur 3Result Comment: Unit: Unknown 4Result Comment: Unit: Unknown 5Result Comment: Unit: Unknown 6Result Comment: Unit: Unknown Route: Intramuscular Provisioning Analyst: Pfizer 7Result Comment: Unit: Unknown Route: Intramuscular Provisioning Analyst: Wyeth 8Result Comment: Unit: Unknown 9Result Comment: Route: Intramuscular Provisioning Analyst: Sanofi Pasteur 10Result Comment: Unit: Unknown Route: Intramuscular Provisioning Analyst: Suleiman 11Result Comment: Route: Intramuscular Provisioning Analyst: GlaxoSmithKline 12Result Comment: Unit: Unknown Medications acetaminophen 325 mg oral tablet TAKE 2 TABLETS (650 MG)ORALLY EVERY 6 HOURS NEEDED FOR PAIN, MILD (PAIN SCALE 1-3) Start Date: 09/22/23 Status: Ordered amLODIPine 2.5 mg oral tablet 1 tablet, By Mouth, Daily, # 90 tablet, 0 Refills, Maintenance, 11/12/23 12:11:00 EST, [facility], 170.18, cm, 10/30/23 14:25:00 EST, Height, 127.2, kg, 10/02/23 3:00:00 EST, Dry Weight Start Date: 11/12/23 Status: Ordered atorvastatin 40 mg oral tablet 1 tablet = 40 mg, By Mouth, Daily, # 90 tablet, 3 Refills, Maintenance, 10/27/23 11:06:00 EST, Tablet, [facility]/pharmacy #[id number], Partial fill upon patient request if [...] Gm, 11 Refills, Maintenance, 11/17/23 9:45:00 EST, [facility]/pharmacy #[id number], Partial fill upon patient request if [...] Required Details, Route to Pharmacy Electronically, [facility]/pharmacy #[id number], Partial fill upon patient reque... Start Date: 10/27/23 Status: Ordered Gemtesa 75 mg oral tablet 1 tablet = 75 mg, By Mouth, Daily, # 30 tablet, 11 Refills, Maintenance, 11/17/23 9:45:00 EST, [facility]/pharmacy #[id number], Partial fill upon patient request if [...] 11:05:00 EST, Route to Pharmacy Electronically, [facility]/pharmacy #[id number], Partial fill upon patientrequest if the prescription is for a schedule II op... Start Date: 10/27/23 Status: Ordered Milk of Magnesia = 1,200 mg, By Mouth, 3 times a day, 0 Refills, Maintenance, 09/22/23 15:30:00 EST, Partial fill upon patient request if the prescription is for a schedule II opioid drug. Start Date: 09/22/23 Status: Ordered nystatin topical [id number] u/gm powder 1 application, Topically, 3 times [...] Team Personnel Name: Armani Reid DO Position: [facility] Renal MD Member Role: Lifetime Consulting Physician Address: Address: [address] [place] [address] [address] [facility] [place] [address]- Name: Erik Kim DO Position: [facility] Physician - Primary Care Member Role: PCP Address: Address: [address] [place] [address]- [place] Care Team Related Persons Name: LORENA HARRISON Address: home [address] [place] [address] Name: LAYNE TREADWELL Address: home [address] [place] [address]
--- OUTSIDE RECORDS SUMMARY | 2024-03-09 15:27 | XMS_ITS | Continuity of Care Document ---
Author Organization [facility] Eric Lynch Gene Address [address] [place] [address]- Care Team Providers Care Manager Civil Name Role Phone Erik Kim DO Primary Care Physician [facility]24 - 02/18/24 [facility] Adult [address] [place] [address]- Allergies, Adverse Reactions, Alerts Substance Reaction Severity Status Osmarbeml Chavarria Active Immunizations Given and Recorded Vaccine [...] virus vaccine, inactivated 08/09/17 Avery rded SARS-CoV-2(COVID-19)mRNA-LNP vac([id number]) 08/02/23 Recorded Influenza Virus Vaccine (oldterm) 1 [...] Influenza Virus Vaccine (oldterm) 08/26/11 Recorde d [id number] 12y+ bivalent booster vax 08/06/22 Recorded pneumococcal 13-valent vaccine 6 07/25/22 Recorded pneumococcal 13-valent vaccine 7 12/14/18 Recorded pneumococcal 13-valent vaccine 12/14/18 Recorded pneumococcal 13-valent vaccine 8 06/06/16 Recorded SARS-CoV-2 mRNA (znxeafs-fmjs-srayv) vax 03/13/22 Recorded SARS-CoV-2 mRNA (kljjqud-eccb-ajhfo) vax 9 08/21/21 Recorded SARS-CoV-2 mRNA (coukpcv-katv-firyu) vax 10 01/13/21 Recorded SARS-CoV-2 (COVID-19) mRNA BNT-162b2 vac 09/03/21 Recorded SARS-CoV-2 (COVID-19) Ad26 vaccine 01/13/21 Record ed zoster vaccine, inactivated 03/13/20 Recorded zoster vaccine, inactivated 12/09/19 Recorded Zoster Vaccine Live 11 12/09/19 Recorded Zoster Vaccine Live 03/13/12 Recorded tetanus/diphtheria/pertussis, acel(Tdap) 10/21/11 Recorded Pneumococcal Vaccine (oldterm) 11/08/06 Given pneumococcal 23-valent vaccine 12 11/08/06 Recorde d 1Result Comment: Unit: Unknown Route: Intramuscular Business Development Executive: Sanofi Pasteur 2Result Comment: Route: Intramuscular Business Development Executive: Sanofi Pasteur 3Result Comment: Unit: Unknown 4Result Comment: Unit: Unknown 5Result Comment: Unit: Unknown 6Result Comment: Unit: Unknown Route: Intramuscular Business Development Executive: Pfizer 7Result Comment: Unit: Unknown Route: Intramuscular Business Development Executive: Wyeth 8Result Comment: Unit: Unknown 9Result Comment: Route: Intramuscular Business Development Executive: Sanofi Pasteur 10Result Comment: Unit: Unknown Route: Intramuscular Business Development Executive: [employer] 11Result Comment: Route: Intramuscular Business Development Executive: GlaxoSmithKline 12Result Comment: Unit: Unknown Medications acetaminophen [...] tablet, 0 Refills, Maintenance, 12/23/23 17:15:00 EST, [facility] STORE 29063, 170.18, cm, 12/17/23 10:17:00 EST, Height, 127.2, [...] 04/01/24 21:50:00 EDT, 02/01/24 21:50:00 EDT, Tablet, [facility]/pharmacy #[id number], Part... Start Date: 02/01/24 Stop Date: 04/01/24 Status: Ordered metFORMIN 500 mg oral tablet 1 tablet = 500 mg, By Mouth, 2 times a day, # 180 tablet, 2 Refills, Maintenance, 12/23/23 17:13:00EST, Tablet, [facility]/pharmacy #[id number], Partial fill upon patient request if the [...] [id number], Partial fill upon patientrequest if the prescription is for a schedule II op... Start Date: 10/27/23 Status: Ordered nystatin topical [id number] u/gm powder See Instructions, APPLY TOPICALLY 3 TIMES A DAY TO RASH, # 60 Gm, 1 Refills, Maintenance, 02/02/24 7:47:00 EDT, [facility], 30, APPLY TOPICALLY 3 TIMES A DAY TO RASH, 170, cm, 01/19/24 14:19:00 EDT, Height, 136, kg, 01/17/24 9:30:00 EST, Dry Weight Start Date: 02/02/24 Status: Ordered omeprazole 40 mg oral enteric coated capsule 1 capsule = 40 mg, By Mouth, Daily, # 90 capsule, 3 Refills, Maintenance, 12/23/23 17:13:00 EST, ECCapsule, [facility]/pharmacy #[id number], Partial fill upon patient request if [...] Team Personnel Name: Armani Reid DO Position: [facility] Renal MD Member Role: Lifetime Consulting Physician Address: Address: [address] [place] [address] [address] [facility] [place] [address]- Name: Maynor Lyons RN Position: [facility] RN Member Role: Primary Care Nurse Name: Erik Kim DO Position: [facility] Physician - Primary Care Member Role: PCP Address: Address: [address] [place] [id number]- Name: Dianna Frost RN Position: [facility] RN Member Role: Primary Care Nurse Care Team Related Persons Name: LORENA HARRISON Address: home [address] [place] [address] Name: LAYNE TREADWELL Address: home [address] [place] [address]
--- OUTSIDE RECORDS SUMMARY | 2024-03-09 15:27 | XMS_ITS | Continuity of Care Document ---
Author Organization [facility] Eric Lynch Gene lt Address [address] [place] [address]- Care Team Providers Care Certified Court/Medical Interpreter Name Role Phone Erik Kim DO Primary Care Physician [facility]): [facility]23 - 12/18/23 [facility] Eric Velazquezley Adult [address] [place] [address]- Allergies, Adverse Reactions, Alerts Substance Reaction Severity [...] virus vaccine, inactivated 08/09/17 Avery rded SARS-CoV-2(COVID-19)mRNA-LNP vac([id number]) 08/02/23 Recorded Influenza Virus Vaccine (oldterm) 1 [...] Influenza Virus Vaccine (oldterm) 08/26/11 Recorde d [id number] 12y+ bivalent booster vax 08/06/22 Recorded pneumococcal 13-valent vaccine 6 07/25/22 Recorded pneumococcal 13-valent vaccine 7 12/14/18 Recorded pneumococcal 13-valent vaccine 12/14/18 Recorded pneumococcal 13-valent vaccine 8 06/06/16 Recorded SARS-CoV-2 mRNA (hiqohss-sfzl-itrdu) vax 03/13/22 Recorded SARS-CoV-2 mRNA (fxscbit-wxjl-esans) vax 9 08/21/21 Recorded SARS-CoV-2 mRNA (kujsovv-mkkx-hcwwe) vax 10 01/13/21 Recorded SARS-CoV-2 (COVID-19) mRNA BNT-162b2 vac 09/03/21 Recorded SARS-CoV-2 (COVID-19) Ad26 vaccine 01/13/21 Record ed zoster vaccine, inactivated 03/13/20 Recorded zoster vaccine, inactivated 12/09/19 Recorded Zoster Vaccine Live 11 12/09/19 Recorded Zoster Vaccine Live 03/13/12 Recorded tetanus/diphtheria/pertussis, acel(Tdap) 10/21/11 Recorded Pneumococcal Vaccine (oldterm) 11/08/06 Given pneumococcal 23-valent vaccine 12 11/08/06 Recorde d 1Result Comment: Unit: Unknown Route: Intramuscular Live In Companion: Sanofi Pasteur 2Result Comment: Route: Intramuscular Live In Companion: Sanofi Pasteur 3Result Comment: Unit: Unknown 4Result Comment: Unit: Unknown 5Result Comment: Unit: Unknown 6Result Comment: Unit: Unknown Route: Intramuscular Live In Companion: Pfizer 7Result Comment: Unit: Unknown Route: Intramuscular Live In Companion: Wyeth 8Result Comment: Unit: Unknown 9Result Comment: Route: Intramuscular Live In Companion: Sanofi Pasteur 10Result Comment: Unit: Unknown Route: Intramuscular Live In Companion: Suleiman 11Result Comment: Route: Intramuscular Live In Companion: GlaxoSmithKline 12Result Comment: Unit: Unknown Medications acetaminophen 325 mg oral tablet TAKE 2 TABLETS (650 MG)ORALLY EVERY 6 HOURS NEEDED FOR PAIN, MILD (PAIN SCALE 1-3) Start Date: 09/22/23 Status: Ordered amLODIPine 2.5 mg oral tablet 1 tablet, By Mouth, Daily, # 90 tablet, 0 Refills, Maintenance, 11/12/23 12:11:00 EST, [facility] STORE 46808, 170.18, cm, 10/30/23 14:25:00 EST, Height, 127.2, kg, 10/02/23 3:00:00 EST, Dry Weight Start Date: 11/12/23 Status: Ordered atorvastatin 40 mg oral tablet 1 tablet = 40 mg, By Mouth, Daily, # 90 tablet, 3 Refills, Maintenance, 10/27/23 11:06:00 EST, Tablet, [facility]/pharmacy #[id number], Partial fill upon patient request [...] Gm, 11 Refills, Maintenance, 11/17/23 9:45:00 EST, [facility]/pharmacy #[id number], Partial fill upon patient request [...] Replace Required Details, Route to Pharmacy Electronically, [facility]/pharmacy #[id number], Partial fill upon patient reque... Start Date: 10/27/23 Status: Ordered Gemtesa 75 mg oral tablet 1 tablet = 75 mg, By Mouth, Daily, # 30 tablet, 11 Refills, Maintenance, 11/17/23 9:45:00 EST, [facility]/pharmacy #[id number], Partial fill upon patient request [...] 10/27/23 11:05:00 EST, Route to Pharmacy Electronically, [facility]/pharmacy #[id number], Partial fill upon patientrequest if the prescription is for a schedule II op... Start Date: 10/27/23 Status: Ordered Milk of Magnesia = 1,200 mg, By Mouth, 3 times a day, 0 Refills, Maintenance, 09/22/23 15:30:00 EST, Partial fill upon patient request if the prescription is for a schedule II opioid drug. Start Date: 09/22/23 Status: Ordered nystatin topical [id number] u/gm powder 1 application, Topically, 3 times [...] Team Personnel Name: Armani Reid DO Position: [facility] Renal MD Member Role: Lifetime Consulting Physician Address: Address: [address] [place] [address] [address] [facility] [place] [address]- Name: Erik Kim DO Position: [facility] Physician - Primary Care Member Role: PCP Address: Address: [address] [place] [address]- [place] Care Team Related Persons Name: LORENA HARRISON Address: home [address] [place] [address] Name: LAYNE TREADWELL Address: home [address] [place] [address]
--- OUTSIDE RECORDS SUMMARY | 2024-03-09 15:27 | XMS_ITS | Continuity of Care Document ---
[facility] Address [address] [facility], [address] [place] [address]- Care Team Providers Care Scooter Mechanic Name Role Phone Erik Kim DO Primary Care Physician Encounter [facility] Date(s): 09/18/23 - 10/31/23 [facility] [address], [address] [place], [place] [address] Attending Physician: Jenn Montes MD Admitting Physician: Jenn Montes MD Referring Physician: Erik Kim DO Allergies, Adverse Reactions, Alerts Substance Reaction Severity Status Lisatrfloresita Hallucinations Active Immunizations Given and Recorded Vaccine Date Status Refusal Reason pneumococcal 20-valent conjugate vaccine 10/30/23 Given pneumococcal 20-valent conjugate vaccine 07/25/22 Recorded influenza virus vaccine, inactivated 08/02/23 Avery rded influenza virus vaccine, inactivated 08/06/22 Avery rded influenza virus vaccine, inactivated 08/21/21 Avery rded influenza virus vaccine, inactivated 08/09/20 Avery rded influenza virus vaccine, inactivated 07/05/19 Avery rded influenza virus vaccine, inactivated 08/08/18 Avery rded influenza virus vaccine, inactivated 08/09/17 Avery rded SARS-CoV-2(COVID-19)mRNA-LNP vac([id number]) 08/02/23 Recorded Influenza Virus Vaccine (oldterm) 1 [...] Influenza Virus Vaccine (oldterm) 08/26/11 Recorde d [id number] 12y+ bivalent booster vax 08/06/22 Recorded pneumococcal 13-valent vaccine 6 07/25/22 Recorded pneumococcal 13-valent vaccine 7 12/14/18 Recorded pneumococcal 13-valent vaccine 12/14/18 Recorded pneumococcal 13-valent vaccine 8 06/06/16 Recorded SARS-CoV-2 mRNA (nyyzwzs-hzol-dtgit) vax 03/13/22 Recorded SARS-CoV-2 mRNA (wuetfox-rpjf-pwbpp) vax 9 08/21/21 Recorded SARS-CoV-2 mRNA (lgzplcg-wlbt-guheg) vax 10 01/13/21 Recorded SARS-CoV-2 (COVID-19) mRNA BNT-162b2 vac 09/03/21 Recorded SARS-CoV-2 (COVID-19) Ad26 vaccine 01/13/21 Record ed zoster vaccine, inactivated 03/13/20 Recorded zoster vaccine, inactivated 12/09/19 Recorded Zoster Vaccine Live 11 12/09/19 Recorded Zoster Vaccine Live 03/13/12 Recorded tetanus/diphtheria/pertussis, acel(Tdap) 10/21/11 Recorded Pneumococcal Vaccine (oldterm) 11/08/06 Given pneumococcal 23-valent vaccine 12 11/08/06 Recorde d 1Result Comment: Unit: Unknown Route: Intramuscular Clerk Supervisor: Sanofi Pasteur 2Result Comment: Route: Intramuscular Clerk Supervisor: Sanofi Pasteur 3Result Comment: Unit: Unknown 4Result Comment: Unit: Unknown 5Result Comment: Unit: Unknown 6Result Comment: Unit: Unknown Route: Intramuscular Clerk Supervisor: Pfizer 7Result Comment: Unit: Unknown Route: Intramuscular Clerk Supervisor: Wyeth 8Result Comment: Unit: Unknown 9Result Comment: Route: Intramuscular Clerk Supervisor: Sanofi Pasteur 10Result Comment: Unit: Unknown Route: Intramuscular Clerk Supervisor: Suleiman 11Result Comment: Route: Intramuscular Clerk Supervisor: [employer] 12Result Comment: Unit: Unknown Medications acetaminophen 325 [...] 3 Refills, Maintenance, 10/27/23 11:06:00 EST, Tablet, [facility]/pharmacy #[id number], Partial fill upon patient request if the prescription is for a schedule II opioid drug., 170.18, cm, 10/04/23 12:18:00 EST, Heig... Start Date: 10/27/23 Status: Ordered buPROPion 300 mg/24 hours (XL) oral tablet, extended release 0 Refills, Maintenance, 09/22/23 15:22:00 EST, Partial fill upon patient request if the prescription is for a schedule II opioid drug. Start Date: 09/22/23 Status: Ordered cephalexin monohydrate 500 mg oral capsule 1 capsule = 500 mg, By Mouth, 4 times a day, for 7 days, # 28 capsule, 0 Refills, Acute 11/06/23 15:19:00 EST, 10/30/23 15:19:00 EST, Capsule, [facility]/pharmacy #[id number], Partial fill upon patient request ifthe prescription is for a schedule II opioid drug.,... Start Date: 10/30/23 Stop Date: 11/06/23 Status: Ordered clonazePAM 0.5 mg oral tablet [...] Details, Route to Pharmacy Electronically, [facility]/pharmacy #[id number], Partial fill upon patient reque... Start Date: [...] 10/27/23 11:05:00 EST, Route to Pharmacy Electronically, [facility]/pharmacy #[id number], Partial fill upon patientrequest if the prescription is for a schedule II op... Start Date: 10/27/23 Status: Ordered Milk of Magnesia = 1,200 mg, By Mouth, 3 times a day, 0 Refills, Maintenance, 09/22/23 15:30:00 EST, Partial fill upon patient request if the prescription is for a schedule II opioid drug. Start Date: 09/22/23 Status: Ordered nystatin topical [id number] u/gm powder 1 application, Topically, 3 times a day, to rash, # 60 Gm, 0 Refills, Maintenance, 10/27/23 11:02:00 EST, Powder, [facility]/pharmacy #[id number], Partial fill upon patient request [...] Team Personnel Name: Armani Reid DO Position: [facility] Renal MD Member Role: Lifetime Consulting Physician Address: Address: [address] [place] [address] [address] [facility] [place] [address]- Name: Erik Kim DO Position: [facility] Physician - Primary Care Member Role: PCP Address: Address: [address] [facility] [place] [address]- Care Team Related Persons Name: LORENA HARRISON Address: home [address] [place] [address] Name: LAYNE TREADWELL Address: home [address] [place] [address]
--- OUTSIDE RECORDS SUMMARY | 2024-03-09 15:27 | XMS_ITS | Continuity of Care Document ---
Author Organization [facility] Syed Gene Address [address] [place] [address]- Care Team Providers Care Make Up Operator Helper Name Role Phone Erik Kim DO Primary Care Physician [facility] Date[facility]s): 12[facility]23[facility]23 - 01/22/24 [facility] Adult [address] [place] [address]- Allergies, Adverse Reactions, Alerts Substance Reaction Severity [...] virus vaccine, inactivated 08/09/17 Avery rded SARS-CoV-2(COVID-19)mRNA-LNP vac([id number]) 08/02/23 Recorded Influenza Virus Vaccine (oldterm) 1 [...] Influenza Virus Vaccine (oldterm) 08/26/11 Recorde d [id number] 12y+ bivalent booster vax 08/06/22 Recorded pneumococcal 13-valent vaccine 6 07/25/22 Recorded pneumococcal 13-valent vaccine 7 12/14/18 Recorded pneumococcal 13-valent vaccine 12/14/18 Recorded pneumococcal 13-valent vaccine 8 06/06/16 Recorded SARS-CoV-2 mRNA (encmjlm-azjw-hniyb) vax 03/13/22 Recorded SARS-CoV-2 mRNA (kfjlvjg-nkji-vbmhv) vax 9 08/21/21 Recorded SARS-CoV-2 mRNA (cjtpoip-ggyu-hdajs) vax 10 01/13/21 Recorded SARS-CoV-2 (COVID-19) mRNA BNT-162b2 vac 09/03/21 Recorded SARS-CoV-2 (COVID-19) Ad26 vaccine 01/13/21 Record ed zoster vaccine, inactivated 03/13/20 Recorded zoster vaccine, inactivated 12/09/19 Recorded Zoster Vaccine Live 11 12/09/19 Recorded Zoster Vaccine Live 03/13/12 Recorded tetanus/diphtheria/pertussis, acel(Tdap) 10/21/11 Recorded Pneumococcal Vaccine (oldterm) 11/08/06 Given pneumococcal 23-valent vaccine 12 11/08/06 Recorde d 1Result Comment: Unit: Unknown Route: Intramuscular Script Writer: Sanofi Pasteur 2Result Comment: Route: Intramuscular Script Writer: Sanofi Pasteur 3Result Comment: Unit: Unknown 4Result Comment: Unit: Unknown 5Result Comment: Unit: Unknown 6Result Comment: Unit: Unknown Route: Intramuscular Script Writer: Pfizer 7Result Comment: Unit: Unknown Route: Intramuscular Script Writer: Wyeth 8Result Comment: Unit: Unknown 9Result Comment: Route: Intramuscular Script Writer: Sanofi Pasteur 10Result Comment: Unit: Unknown Route: Intramuscular Script Writer: Suleiman 11Result Comment: Route: Intramuscular Script Writer: GlaxoSmithKline 12Result Comment: Unit: Unknown Medications acetaminophen 325 mg oral tablet TAKE 2 TABLETS (650 MG)ORALLY EVERY 6 HOURS NEEDED FOR PAIN, MILD (PAIN SCALE 1-3) Start Date: 09/22/23 Status: Ordered atorvastatin 40 mg oral tablet 1 tablet = 40 mg, By Mouth, Daily, # 90 tablet, 3 Refills, Maintenance, 10/27/23 11:06:00 EST, Tablet, [facility]/pharmacy #[id number], Partial fill upon patient request [...] Refills, Maintenance, 12/23/23 17:15:00 EST, [facility], 170.18, cm, 12/17/23 10:17:00 EST, Height, 127.2, kg, 10/02/23 3:00:00 EST, Dry Weight Start Date: 12/23/23 Status: Ordered estradiol 0.1 mg/g vaginal cream = 1 Gm, Vaginally, Daily at bedtime, # 30 Gm, 11 Refills, Maintenance, 11/17/23 9:45:00 EST, [facility]/pharmacy #[id number], Partial fill upon patient request [...] Replace Required Details, Route to Pharmacy Electronically, [facility]/pharmacy #[id number], Partial fill upon patient reque... Start Date: 10/27/23 Status: Ordered Gemtesa 75 mg oral tablet 1 tablet = 75 mg, By Mouth, Daily, # 30 tablet, 11 Refills, Maintenance, 11/17/23 9:45:00 EST, [facility]/pharmacy #[id number], Partial fill upon patient request [...] DAY NEEDED Start Date: 10/01/23 Status: Ordered metFORMIN 500 mg oral tablet 1 tablet = 500 mg, By Mouth, 2 times a day, # 180 tablet, 2 Refills, Maintenance, 12/23/23 17:13:00EST, Tablet, [facility]/pharmacy #[id number], Partial fill upon patient request if the prescription is for a schedule II opioid drug., 170.18, cm, 12/17/23 10:17:00... Start Date: 12/23/23 Status: Ordered metoprolol 50 mg oral tablet 50 mg, 1, tablet, By Mouth, 2 times a day, # 180 tablet, Refills 3, Tot. Refills 3, Maintenance, 10/27/23 11:05:00 EST, Route to Pharmacy Electronically, [facility]/pharmacy #[id number], Partial fill upon patientrequest if the prescription is for a schedule II op... Start Date: 10/27/23 Status: Ordered nystatin topical [id number] u/gm powder See Instructions, APPLY TOPICALLY 3 TIMES A DAY TO RASH, # 60 Gm, 0 Refills, Maintenance, 12/23/23 17:15:00 EST, [facility], 30, APPLY TOPICALLY 3 TIMES A DAY TO RASH, 170.18, cm, 12/17/23 10:17:00 EST, Height, 127.2, kg, 10/02/23 3:00:00 EST, Dr... Start Date: 12/23/23 Status: Ordered nystatin topical [id number] u/gm powder 1 application, Topically, 3 times a day, to rash, # 60 Gm, 0 Refills, Maintenance, 10/27/23 11:02:00 EST, Powder, [facility]/pharmacy #[id number], Partial fill upon patient request if the prescription is for a schedule II opioid drug., 1 application Topically 3 ti... Start Date: 10/27/23 Status: Ordered omeprazole 40 mg oral enteric coated capsule 1 capsule = 40 mg, By Mouth, Daily, # 90 capsule, 3 Refills, Maintenance, 12/23/23 17:13:00 EST, ECCapsule, [facility]/pharmacy #[id number], Partial fill upon patient request if [...] Team Personnel Name: Armani Reid DO Position: [facility] Renal MD Member Role: Lifetime Consulting Physician Address: Address: [address] [place] [address] [address] [facility] [place] [address]- Name: Maynor Lyons RN Position: [facility] RN Member Role: Primary Care Nurse Name: Erik Kim DO Position: [facility] Physician - Primary Care Member Role: PCP Address: Address: [address] [place] [address]- Name: Dianna Frost RN Position: [facility] RN Member Role: Primary Care Nurse Care Team Related Persons Name: LORENA HARRISON Address: home [address] [place] [address] Name: LAYNE TREADWELL Address: home [address] [place] [address]
--- OUTSIDE RECORDS SUMMARY | 2024-03-09 15:27 | XMS_ITS | Continuity of Care Document ---
Author Organization [facility] Eric Lynch Gene Address [address] [place] [address]- Care Team Providers Care Sqe Name Role Phone Erik Kim DO Primary Care Physician [phone] [facility]): 02/[facility]24 - 03/06/24 [facility] [address] [place] [address]- Allergies, Adverse Reactions, Alerts Substance Reaction Severity [...] virus vaccine, inactivated 08/09/17 Avery rded SARS-CoV-2(COVID-19)mRNA-LNP vac([id number]) 08/02/23 Recorded Influenza Virus Vaccine (oldterm) 1 [...] Influenza Virus Vaccine (oldterm) 08/26/11 Recorde d [id number] 12y+ bivalent booster vax 08/06/22 Recorded pneumococcal 13-valent vaccine 6 07/25/22 Recorded pneumococcal 13-valent vaccine 7 12/14/18 Recorded pneumococcal 13-valent vaccine 12/14/18 Recorded pneumococcal 13-valent vaccine 8 06/06/16 Recorded SARS-CoV-2 mRNA (ulqogkm-uwwn-ssqde) vax 03/13/22 Recorded SARS-CoV-2 mRNA (jeazjdk-qjzk-grdpi) vax 9 08/21/21 Recorded SARS-CoV-2 mRNA (onmnuwk-refx-njxhx) vax 10 01/13/21 Recorded SARS-CoV-2 (COVID-19) mRNA BNT-162b2 vac 09/03/21 Recorded SARS-CoV-2 (COVID-19) Ad26 vaccine 01/13/21 Record ed zoster vaccine, inactivated 03/13/20 Recorded zoster vaccine, inactivated 12/09/19 Recorded Zoster Vaccine Live 11 12/09/19 Recorded Zoster Vaccine Live 03/13/12 Recorded tetanus/diphtheria/pertussis, acel(Tdap) 10/21/11 Recorded Pneumococcal Vaccine (oldterm) 11/08/06 Given pneumococcal 23-valent vaccine 12 11/08/06 Recorde d 1Result Comment: Unit: Unknown Route: Intramuscular Laminating Press Operator: Sanofi Pasteur 2Result Comment: Route: Intramuscular Laminating Press Operator: Sanofi Pasteur 3Result Comment: Unit: Unknown 4Result Comment: Unit: Unknown 5Result Comment: Unit: Unknown 6Result Comment: Unit: Unknown Route: Intramuscular Laminating Press Operator: Pfizer 7Result Comment: Unit: Unknown Route: Intramuscular Laminating Press Operator: Wyeth 8Result Comment: Unit: Unknown 9Result Comment: Route: Intramuscular Laminating Press Operator: Sanofi Pasteur 10Result Comment: Unit: Unknown Route: Intramuscular Laminating Press Operator: Ymagis 11Result Comment: Route: Intramuscular Laminating Press Operator: GlaxoSmithKline 12Result Comment: Unit: Unknown Medications acetaminophen 325 mg oral tablet TAKE 2 TABLETS (650 MG)ORALLY EVERY 6 HOURS NEEDED FOR PAIN, MILD (PAIN SCALE 1-3) Start Date: 09/22/23 Status: Ordered atorvastatin 40 mg oral tablet 1 tablet = 40 mg, By Mouth, Daily, # 90 tablet, 3 Refills, Maintenance, 10/27/23 11:06:00 EST, Tablet, [facility]/pharmacy #[id number], Partial fill upon patient request [...] tablet, 0 Refills, Maintenance, 12/23/23 17:15:00 EST, [facility] STORE [id number], 170.18, cm, 12/17/23 10:17:00 EST, Height, 127.2, kg, 10/02/23 3:00:00 EST, Dry Weight Start Date: 12/23/23 Status: Ordered estradiol 0.1 mg/g vaginal cream = 1 Gm, Vaginally, Daily at bedtime, # 30 Gm, 11 Refills, Maintenance, 11/17/23 9:45:00 EST, [facility]/pharmacy #[id number], Partial fill upon patient request [...] Replace Required Details, Route to Pharmacy Electronically, [facility]/pharmacy #[id number], Partial fill upon patient reque... Start Date: 10/27/23 Status: Ordered Gemtesa 75 mg oral tablet 1 tablet = 75 mg, By Mouth, Daily, # 30 tablet, 11 Refills, Maintenance, 11/17/23 9:45:00 EST, [facility]/pharmacy #[id number], Partial fill upon patient request [...] 04/01/24 21:50:00 EDT, 02/01/24 21:50:00 EDT, Tablet, [facility]/pharmacy #[id number], Part... Start Date: 02/01/24 Stop Date: 04/01/24 Status: Ordered metFORMIN 500 mg oral tablet 1 tablet = 500 mg, By Mouth, 2 times a day, # 180 tablet, 2 Refills, Maintenance, 12/23/23 17:13:00EST, Tablet, [facility]/pharmacy #[id number], Partial fill upon patient request if the prescription is for a schedule II opioid drug., 170.18, cm, 12/17/23 10:17:00... Start Date: 12/23/23 Status: Ordered metoprolol 50 mg oral tablet 50 mg, 1, tablet, By Mouth, 2 times a day, # 180 tablet, Refills 3, Tot. Refills 3, Maintenance, 10/27/23 11:05:00 EST, Route to Pharmacy Electronically, [facility]/pharmacy #[id number], Partial fill upon patientrequest if the prescription is for a schedule II op... Start Date: 10/27/23 Status: Ordered nystatin topical [id number] u/gm powder See Instructions, APPLY TOPICALLY 3 TIMES A DAY TO RASH, # 60 Gm, 1 Refills, Maintenance, 02/02/24 7:47:00 EDT, [facility], 30, APPLY TOPICALLY 3 TIMES A DAY TO RASH, 170, cm, 01/19/24 14:19:00 EDT, Height, 136, kg, 01/17/24 9:30:00 EST, Dry Weight Start Date: 02/02/24 Status: Ordered omeprazole 40 mg oral enteric coated capsule 1 capsule = 40 mg, By Mouth, Daily, # 90 capsule, 3 Refills, Maintenance, 12/23/23 17:13:00 EST, ECCapsule, [facility]/pharmacy #[id number], Partial fill upon patient request if the [...] Member Role: Lifetime Consulting Physician Address: Address: [address] [place] [address] [address] [facility] [place] [address]- Name: Maynor Lyons RN Position: [facility] RN Member Role: Primary Care Nurse Name: Erik Kim DO Position: [facility] Physician - Primary Care Member Role: PCP Address: Address: [address] [place] [address]- Name: Dianna Frost RN Position: [facility] RN Member Role: Primary Care Nurse Care Team Related Persons Name: LORENA HARRISON Address: home [address] [place] [address] Name: LAYNE TREADWELL Address: home [address] [place] [address]
--- OUTSIDE RECORDS SUMMARY | 2024-03-09 15:27 | XMS_ITS | Continuity of Care Document ---
Author Organization [facility] Eric Lynch Gene lt Address [address] [place] [address]- Care Team Providers Care Employee Representative Name Role Phone Erik Kim DO Primary Care Physician [facility]): 11[facility]23 - 12/11/23 [facility] Eric Velazquezley Adult [address] [place] [address]- Allergies, Adverse Reactions, Alerts Substance Reaction Severity [...] virus vaccine, inactivated 08/09/17 Avery rded SARS-CoV-2(COVID-19)mRNA-LNP vac([id number]) 08/02/23 Recorded Influenza Virus Vaccine (oldterm) 1 08/06/22 Recor ded Influenza Virus Vaccine (oldterm) 08/09/20 Recorde d Influenza Virus Vaccine (oldterm) 07/05/19 Recorde d Influenza Virus Vaccine (oldterm) 2 08/08/18 Recor ded Influenza Virus Vaccine (oldterm) 3 08/02/16 Recor ded Influenza Virus Vaccine (oldterm) 4 08/07/15 Recor ded Influenza Virus Vaccine (oldterm) 9/12/14 Recorde d Influenza Virus Vaccine (oldterm) 08/30/13 Recorde d Influenza Virus Vaccine (oldterm) 5 08/14/12 Recor ded Influenza Virus Vaccine (oldterm) 08/26/11 Recorde d [id number] 12y+ bivalent booster vax 08/06/22 Recorded pneumococcal 13-valent vaccine 6 07/25/22 Recorded pneumococcal 13-valent vaccine 7 12/14/18 Recorded pneumococcal 13-valent vaccine 12/14/18 Recorded pneumococcal 13-valent vaccine 8 06/06/16 Recorded SARS-CoV-2 mRNA (wedmhlj-lohc-comzi) vax 03/13/22 Recorded SARS-CoV-2 mRNA (kobgvco-mknv-bqqke) vax 9 08/21/21 Recorded SARS-CoV-2 mRNA (wgosojv-niml-flhnm) vax 10 01/13/21 Recorded SARS-CoV-2 (COVID-19) mRNA BNT-162b2 vac 09/03/21 Recorded SARS-CoV-2 (COVID-19) Ad26 vaccine 01/13/21 Record ed zoster vaccine, inactivated 03/13/20 Recorded zoster vaccine, inactivated 12/09/19 Recorded Zoster Vaccine Live 11 12/09/19 Recorded Zoster Vaccine Live 03/13/12 Recorded tetanus/diphtheria/pertussis, acel(Tdap) 10/21/11 Recorded Pneumococcal Vaccine (oldterm) 11/08/06 Given pneumococcal 23-valent vaccine 12 11/08/06 Recorde d 1Result Comment: Unit: Unknown Route: Intramuscular Dough Mixer: Sanofi Pasteur 2Result Comment: Route: Intramuscular Dough Mixer: Sanofi Pasteur 3Result Comment: Unit: Unknown 4Result Comment: Unit: Unknown 5Result Comment: Unit: Unknown 6Result Comment: Unit: Unknown Route: Intramuscular Dough Mixer: Pfizer 7Result Comment: Unit: Unknown Route: Intramuscular Dough Mixer: Wyeth 8Result Comment: Unit: Unknown 9Result Comment: Route: Intramuscular Dough Mixer: Sanofi Pasteur 10Result Comment: Unit: Unknown Route: Intramuscular Dough Mixer: Suleiman 11Result Comment: Route: Intramuscular Dough Mixer: GlaxoSmithKline 12Result Comment: Unit: Unknown Medications acetaminophen 325 mg oral tablet TAKE 2 TABLETS (650 MG)ORALLY EVERY 6 HOURS NEEDED FOR PAIN, MILD (PAIN SCALE 1-3) Start Date: 09/22/23 Status: Ordered amLODIPine 2.5 mg oral tablet 1 tablet, By Mouth, Daily, # 90 tablet, 0 Refills, Maintenance, 11/12/23 12:11:00 EST, [facility] STORE 08430, 170.18, cm, 10/30/23 14:25:00 EST, Height, 127.2, kg, 10/02/23 3:00:00 EST, Dry Weight Start Date: 11/12/23 Status: Ordered atorvastatin 40 mg oral tablet 1 tablet = 40 mg, By Mouth, Daily, # 90 tablet, 3 Refills, Maintenance, 10/27/23 11:06:00 EST, Tablet, [facility]/pharmacy #[id number], Partial fill upon patient request [...] Gm, 11 Refills, Maintenance, 11/17/23 9:45:00 EST, [facility]/pharmacy #[id number], Partial fill upon patient request [...] Replace Required Details, Route to Pharmacy Electronically, [facility]/pharmacy #[id number], Partial fill upon patient reque... Start Date: 10/27/23 Status: Ordered Gemtesa 75 mg oral tablet 1 tablet = 75 mg, By Mouth, Daily, # 30 tablet, 11 Refills, Maintenance, 11/17/23 9:45:00 EST, [facility]/pharmacy #[id number], Partial fill upon patient request [...] 10/27/23 11:05:00 EST, Route to Pharmacy Electronically, [facility]/pharmacy #[id number], Partial fill upon patientrequest if the prescription is for a schedule II op... Start Date: 10/27/23 Status: Ordered Milk of Magnesia = 1,200 mg, By Mouth, 3 times a day, 0 Refills, Maintenance, 09/22/23 15:30:00 EST, Partial fill upon patient request if the prescription is for a schedule II opioid drug. Start Date: 09/22/23 Status: Ordered nystatin topical [id number] u/gm powder 1 application, Topically, 3 times [...] Team Personnel Name: Armani Reid DO Position: [facility] Renal MD Member Role: Lifetime Consulting Physician Address: Address: [address] [place] [address] [address] [facility] [place] [address]- Name: Erik Kim DO Position: [facility] Physician - Primary Care Member Role: PCP Address: Address: [address] [place] [id number]- [place] Care Team Related Persons Name: LORENA HARRISON Address: home [address] [place] [address] Name: LAYNE TREADWELL Address: home [address] [place] [address]
--- OUTSIDE RECORDS SUMMARY | 2024-03-09 15:27 | XMS_ITS | Continuity of Care Document ---
Author Organization [facility] Address [address] [place] [address]- Care Team Providers Care Senior Gis Analyst Name Role Phone Erik Kim DO Primary Care Physician [phone] [facility]counter [facility]s): 11[facility]12[facility]23 - 01/03/24 [facility] [address] [place], [place] [address] Attending Physician: Marcella Campos MD Admitting Physician: Marcella Campos MD Referring Physician: Marcella Campos MD Allergies, Adverse Reactions, Alerts Substance Reaction Severity Status Lisaallegrafloresita Hallucinations Active Immunizations Given and Recorded Vaccine Date Status Refusal Reason pneumococcal 20-valent conjugate vaccine 10/30/23 Given pneumococcal 20-valent conjugate vaccine 07/25/22 Recorded RSV vaccine preF3, recombinant 10/15/23 Recorded influenza virus vaccine, inactivated 08/02/23 Avery rded influenza virus vaccine, inactivated 08/06/22 Avery rded influenza virus vaccine, inactivated 08/21/21 Avery rded influenza virus vaccine, inactivated 08/09/20 Avery rded influenza virus vaccine, inactivated 07/05/19 Vaery rded influenza virus vaccine, inactivated 08/08/18 Avery rded influenza virus vaccine, inactivated 08/09/17 Avery rded SARS-CoV-2(COVID-19)mRNA-LNP vac([id number]) 08/02/23 Recorded Influenza Virus Vaccine (oldterm) 1 [...] Influenza Virus Vaccine (oldterm) 08/26/11 Recorde d [id number] 12y+ bivalent booster vax 08/06/22 Recorded pneumococcal 13-valent vaccine 6 07/25/22 Recorded pneumococcal 13-valent vaccine 7 12/14/18 Recorded pneumococcal 13-valent vaccine 12/14/18 Recorded pneumococcal 13-valent vaccine 8 06/06/16 Recorded SARS-CoV-2 mRNA (fgmvrmt-fnrs-fnpuh) vax 03/13/22 Recorded SARS-CoV-2 mRNA (zcjtysj-mbjb-nxewq) vax 9 08/21/21 Recorded SARS-CoV-2 mRNA (makycvk-okrh-llzbv) vax 10 01/13/21 Recorded SARS-CoV-2 (COVID-19) mRNA BNT-162b2 vac 09/03/21 Recorded SARS-CoV-2 (COVID-19) Ad26 vaccine 01/13/21 Record ed zoster vaccine, inactivated 03/13/20 Recorded zoster vaccine, inactivated 12/09/19 Recorded Zoster Vaccine Live 11 12/09/19 Recorded Zoster Vaccine Live 03/13/12 Recorded tetanus/diphtheria/pertussis, acel(Tdap) 10/21/11 Recorded Pneumococcal Vaccine (oldterm) 11/08/06 Given pneumococcal 23-valent vaccine 12 11/08/06 Recorde d 1Result Comment: Unit: Unknown Route: Intramuscular Community Relations Police Lieutenant: Sanofi Pasteur 2Result Comment: Route: Intramuscular Community Relations Police Lieutenant: Sanofi Pasteur 3Result Comment: Unit: Unknown 4Result Comment: Unit: Unknown 5Result Comment: Unit: Unknown 6Result Comment: Unit: Unknown Route: Intramuscular Community Relations Police Lieutenant: Pfizer 7Result Comment: Unit: Unknown Route: Intramuscular Community Relations Police Lieutenant: Wyeth 8Result Comment: Unit: Unknown 9Result Comment: Route: Intramuscular Community Relations Police Lieutenant: Sanofi Pasteur 10Result Comment: Unit: Unknown Route: Intramuscular Community Relations Police Lieutenant: Suleiman 11Result Comment: Route: Intramuscular Community Relations Police Lieutenant: GlaxoSmithKline 12Result Comment: Unit: Unknown Medications acetaminophen 325 mg oral tablet TAKE 2 TABLETS (650 MG)ORALLY EVERY 6 HOURS NEEDED FOR PAIN, MILD (PAIN SCALE 1-3) Start Date: 09/22/23 Status: Ordered amLODIPine 2.5 mg oral tablet 1 tablet, By Mouth, Daily, # 90 tablet, 0 Refills, Maintenance, 11/12/23 12:11:00 EST, [facility] STORE 12931, 170.18, cm, 10/30/23 14:25:00 EST, Height, 127.2, kg, 10/02/23 3:00:00 EST, Dry Weight Start Date: 11/12/23 Status: Ordered atorvastatin 40 mg oral tablet 1 tablet = 40 mg, By Mouth, Daily, # 90 tablet, 3 Refills, Maintenance, 10/27/23 11:06:00 EST, Tablet, [facility]/pharmacy #[id number], Partial fill upon patient [...] Refills, Maintenance, 12/23/23 17:15:00 EST, [facility], 170.18, cm, 12/17/23 10:17:00 EST, Height, 127.2, [...] Gm, 11 Refills, Maintenance, 11/17/23 9:45:00 EST, [facility]/pharmacy #[id number], Partial fill upon patient [...] Replace Required Details, Route to Pharmacy Electronically, [facility]/pharmacy #[id number], Partial fill upon patient reque... Start Date: 10/27/23 Status: Ordered Gemtesa 75 mg oral tablet 1 tablet = 75 mg, By Mouth, Daily, # 30 tablet, 11 Refills, Maintenance, 11/17/23 9:45:00 EST, [facility]/pharmacy #[id number], Partial fill upon patient [...] tablet, 2 Refills, Maintenance, 12/23/23 17:13:00EST, Tablet, [facility]/pharmacy #[id number], Partial fill upon patient request if the [...] 10/27/23 11:05:00 EST, Route to Pharmacy Electronically, [facility]/pharmacy #[id number], Partial fill upon patientrequest if the prescription is for a schedule II op... Start Date: 10/27/23 Status: Ordered Milk of Magnesia = 1,200 mg, By Mouth, 3 times a day, 0 Refills, Maintenance, 09/22/23 15:30:00 EST, Partial fill upon patient request if the prescription is for a schedule II opioid drug. Start Date: 09/22/23 Status: Ordered nystatin topical [id number] u/gm powder See Instructions, APPLY TOPICALLY 3 TIMES A DAY TO RASH, # 60 Gm, 0 Refills, Maintenance, 12/23/23 17:15:00 EST, [facility] STORE 71823, 30, APPLY TOPICALLY 3 TIMES A DAY TO RASH, 170.18, cm, 12/17/23 10:17:00 EST, Height, 127.2, kg, 10/02/23 3:00:00 EST, DrAlejandro.. Start Date: 12/23/23 Status: Ordered nystatin topical [id number] u/gm powder 1 application, Topically, 3 times a day, to rash, # 60 Gm, 0 Refills, Maintenance, 10/27/23 11:02:00 EST, Powder, [facility]/pharmacy #[id number], Partial fill upon patient request if the prescription is for a schedule II opioid drug., 1 application Topically 3 ti... Start Date: 10/27/23 Status: Ordered omeprazole 40 mg oral enteric coated capsule 1 capsule = 40 mg, By Mouth, Daily, # 90 capsule, 3 Refills, Maintenance, 12/23/23 17:13:00 EST, ECCapsule, [facility]/pharmacy #[id number], Partial fill upon patient request if the [...] Role: Lifetime Consulting Physician Address: Address: [address] [place] [address] [address] [facility] [place] [address]- Name: Erik Kim DO Position: [facility] Physician - Primary Care Member Role: PCP Address: Address: [address] [facility] [place] [address]- Care Team Related Persons Name: LORENA HARRISON Address: home [address] [place] [address] Name: LAYNE TREADWELL Address: home [address] [place] [address]
--- OUTSIDE RECORDS SUMMARY | 2024-03-09 15:27 | XMS_ITS | Continuity of Care Document ---
Author Organization [facility] Eric Lynch Gene lt Address [address] [place] [address]- Care Team Providers Care Pourer Off Name Role Phone Erik Kim DO Primary Care Physician [facility]): 01[facility]20[facility]24 - 02/19/24 [facility] Eric Velazquezley Adult [address] [place] [address]- Allergies, Adverse Reactions, Alerts Substance Reaction Severity [...] virus vaccine, inactivated 08/09/17 Avery rded SARS-CoV-2(COVID-19)mRNA-LNP vac([id number]) 08/02/23 Recorded Influenza Virus Vaccine (oldterm) 1 [...] Influenza Virus Vaccine (oldterm) 08/26/11 Recorde d [id number] 12y+ bivalent booster vax 08/06/22 Recorded pneumococcal 13-valent vaccine 6 07/25/22 Recorded pneumococcal 13-valent vaccine 7 12/14/18 Recorded pneumococcal 13-valent vaccine 12/14/18 Recorded pneumococcal 13-valent vaccine 8 06/06/16 Recorded SARS-CoV-2 mRNA (jagoaar-hnsh-zbuxx) vax 03/13/22 Recorded SARS-CoV-2 mRNA (mbqoazc-ywdv-zvjnx) vax 9 08/21/21 Recorded SARS-CoV-2 mRNA (wpzeoxk-kdyr-xhxsf) vax 10 01/13/21 Recorded SARS-CoV-2 (COVID-19) mRNA BNT-162b2 vac 09/03/21 Recorded SARS-CoV-2 (COVID-19) Ad26 vaccine 01/13/21 Record ed zoster vaccine, inactivated 03/13/20 Recorded zoster vaccine, inactivated 12/09/19 Recorded Zoster Vaccine Live 11 12/09/19 Recorded Zoster Vaccine Live 03/13/12 Recorded tetanus/diphtheria/pertussis, acel(Tdap) 10/21/11 Recorded Pneumococcal Vaccine (oldterm) 11/08/06 Given pneumococcal 23-valent vaccine 12 11/08/06 Recorde d 1Result Comment: Unit: Unknown Route: Intramuscular Laminator Hand: Sanofi Pasteur 2Result Comment: Route: Intramuscular Laminator Hand: Sanofi Pasteur 3Result Comment: Unit: Unknown 4Result Comment: Unit: Unknown 5Result Comment: Unit: Unknown 6Result Comment: Unit: Unknown Route: Intramuscular Laminator Hand: Pfizer 7Result Comment: Unit: Unknown Route: Intramuscular Laminator Hand: Wyeth 8Result Comment: Unit: Unknown 9Result Comment: Route: Intramuscular Laminator Hand: Sanofi Pasteur 10Result Comment: Unit: Unknown Route: Intramuscular Laminator Hand: [employer] 11Result Comment: Route: Intramuscular Laminator Hand: GlaxoSmithKline 12Result Comment: Unit: Unknown Medications acetaminophen 325 mg oral tablet TAKE 2 TABLETS (650 MG)ORALLY EVERY 6 HOURS NEEDED FOR PAIN, MILD (PAIN SCALE 1-3) Start Date: 09/22/23 Status: Ordered atorvastatin 40 mg oral tablet 1 tablet = 40 mg, By Mouth, Daily, # 90 tablet, 3 Refills, Maintenance, 10/27/23 11:06:00 EST, Tablet, [facility]/pharmacy #[id number], Partial fill upon patient request [...] tablet, 0 Refills, Maintenance, 12/23/23 17:15:00 EST, [facility] STORE 05802, 170.18, cm, 12/17/23 10:17:00 EST, Height, 127.2, kg, 10/02/23 3:00:00 EST, Dry Weight Start Date: 12/23/23 Status: Ordered estradiol 0.1 mg/g vaginal cream = 1 Gm, Vaginally, Daily at bedtime, # 30 Gm, 11 Refills, Maintenance, 11/17/23 9:45:00 EST, [facility]/pharmacy #[id number], Partial fill upon patient request [...] Replace Required Details, Route to Pharmacy Electronically, [facility]/pharmacy #[id number], Partial fill upon patient reque... Start Date: 10/27/23 Status: Ordered Gemtesa 75 mg oral tablet 1 tablet = 75 mg, By Mouth, Daily, # 30 tablet, 11 Refills, Maintenance, 11/17/23 9:45:00 EST, [facility]/pharmacy #[id number], Partial fill upon patient request [...] 04/01/24 21:50:00 EDT, 02/01/24 21:50:00 EDT, Tablet, [facility]/pharmacy #[id number], Part... Start Date: 02/01/24 Stop Date: 04/01/24 Status: Ordered metFORMIN 500 mg oral tablet 1 tablet = 500 mg, By Mouth, 2 times a day, # 180 tablet, 2 Refills, Maintenance, 12/23/23 17:13:00EST, Tablet, [facility]/pharmacy #[id number], Partial fill upon patient request if the prescription is for a schedule II opioid drug., 170.18, cm, 12/17/23 10:17:00... Start Date: 12/23/23 Status: Ordered metoprolol 50 mg oral tablet 50 mg, 1, tablet, By Mouth, 2 times a day, # 180 tablet, Refills 3, Tot. Refills 3, Maintenance, 10/27/23 11:05:00 EST, Route to Pharmacy Electronically, [facility]/pharmacy #[id number], Partial fill upon patientrequest if the prescription is for a schedule II op... Start Date: 10/27/23 Status: Ordered nystatin topical [id number] u/gm powder See Instructions, APPLY TOPICALLY 3 TIMES A DAY TO RASH, # 60 Gm, 1 Refills, Maintenance, 02/02/24 7:47:00 EDT, [facility], 30, APPLY TOPICALLY 3 TIMES A DAY TO RASH, 170, cm, 01/19/24 14:19:00 EDT, Height, 136, kg, 01/17/24 9:30:00 EST, Dry Weight Start Date: 02/02/24 Status: Ordered omeprazole 40 mg oral enteric coated capsule 1 capsule = 40 mg, By Mouth, Daily, # 90 capsule, 3 Refills, Maintenance, 12/23/23 17:13:00 EST, ECCapsule, [facility]/pharmacy #[id number], Partial fill upon patient request if the [...] Team Personnel Name: Armani Reid DO [facility] Renal MD Member Role: Lifetime Consulting Physician Address: Address: [address] [place] [address] [address] [facility] [place] [address]- Name: Maynor Lyons RN Position: [facility] RN Member Role: Primary Care Nurse Name: Erik Kim DO Position: [facility] Physician - Primary Care Member Role: PCP Address: Address: [address] [place] [address]- Name: Dianna Frost RN Position: [facility] RN Member Role: Primary Care Nurse Care Team Related Persons Name: LORENA HARRISON Address: [address] [place] [address] Name: LAYNE TREADWELL Address: home [address] [place] [address]
--- OUTSIDE RECORDS SUMMARY | 2024-03-09 15:27 | XMS_ITS | Continuity of Care Document ---
Author Organization [facility] Eric Lynch Gene lt Address [address] [place] [address]- Care Team Providers Care Pediatric Neuropsychologist Name Role Phone Erik Kim DO Primary Care Physician [phone] Encounter [facility] Date(s): 11/11/23 - 12/11/23 [facility] Eric Velazquezley Adult [address] [place] [address]- Allergies, Adverse Reactions, Alerts Substance Reaction Severity [...] virus vaccine, inactivated 08/09/17 Avery rded SARS-CoV-2(COVID-19)mRNA-LNP vac([id number]) 08/02/23 Recorded Influenza Virus Vaccine (oldterm) 1 [...] Influenza Virus Vaccine (oldterm) 08/26/11 Recorde d [id number] 12y+ bivalent booster vax 08/06/22 Recorded pneumococcal 13-valent vaccine 6 07/25/22 Recorded pneumococcal 13-valent vaccine 7 12/14/18 Recorded pneumococcal 13-valent vaccine 12/14/18 Recorded pneumococcal 13-valent vaccine 8 06/06/16 Recorded SARS-CoV-2 mRNA (aayhhdk-guph-exoav) vax 03/13/22 Recorded SARS-CoV-2 mRNA (rqrzzpj-mdxh-hwjtj) vax 9 08/21/21 Recorded SARS-CoV-2 mRNA (dvbebba-kmoi-amtlg) vax 10 01/13/21 Recorded SARS-CoV-2 (COVID-19) mRNA BNT-162b2 vac 09/03/21 Recorded SARS-CoV-2 (COVID-19) Ad26 vaccine 01/13/21 Record ed zoster vaccine, inactivated 03/13/20 Recorded zoster vaccine, inactivated 12/09/19 Recorded Zoster Vaccine Live 11 12/09/19 Recorded Zoster Vaccine Live 03/13/12 Recorded tetanus/diphtheria/pertussis, acel(Tdap) 10/21/11 Recorded Pneumococcal Vaccine (oldterm) 11/08/06 Given pneumococcal 23-valent vaccine 12 11/08/06 Recorde d 1Result Comment: Unit: Unknown Route: Intramuscular Creel Clerk: Sanof[employer] P[employer] 2Result Comment: Route: Intramuscular Creel Clerk: San[employer] 3Result Comment: Unit: Unknown 4Result Comment: Unit: Unknown 5Result Comment: Unit: Unknown 6Result Comment: Unit: Unknown Route: Intramuscular Creel Clerk: Pfizer 7Result Comment: Unit: Unknown Route: Intramuscular Creel Clerk: Wyeth 8Result Comment: Unit: Unknown 9Result Comment: Route: Intramuscular Creel Clerk: San[employer]i P[employer]ur 10Result Comment: Unit: Unknown Route: Intramuscular Creel Clerk: Suleiman 11Result Comment: Route: Intramuscular Creel Clerk: [employer] 12Result Comment: Unit: Unknown Medications acetaminophen 325 mg oral tablet TAKE 2 TABLETS (650 MG)ORALLY EVERY 6 HOURS NEEDED FOR PAIN, MILD (PAIN SCALE 1-3) Start Date: 09/22/23 Status: Ordered amLODIPine 2.5 mg oral tablet 1 tablet, By Mouth, Daily, # 90 tablet, 0 Refills, Maintenance, 11/12/23 12:11:00 EST, [facility] STORE [id number], 170.18, cm, 10/30/23 14:25:00 EST, Height, 127.2, kg, 10/02/23 3:00:00 EST, Dry Weight Start Date: 11/12/23 Status: Ordered atorvastatin 40 mg oral tablet 1 tablet = 40 mg, By Mouth, Daily, # 90 tablet, 3 Refills, Maintenance, 10/27/23 11:06:00 EST, Tablet, [facility]/pharmacy #[id number], Partial fill upon patient request if [...] Gm, 11 Refills, Maintenance, 11/17/23 9:45:00 EST, [facility]/pharmacy #[id number], Partial fill upon patient request if [...] Replace Required Details, Route to Pharmacy Electronically, [facility]/pharmacy #[id number], Partial fill upon patient reque... Start Date: 10/27/23 Status: Ordered Gemtesa 75 mg oral tablet 1 tablet = 75 mg, By Mouth, Daily, # 30 tablet, 11 Refills, Maintenance, 11/17/23 9:45:00 EST, [facility]/pharmacy #[id number], Partial fill upon patient request if [...] 10/27/23 11:05:00 EST, Route to Pharmacy Electronically, [facility]/pharmacy #[id number], Partial fill upon patientrequest if the prescription is for a schedule II op... Start Date: 10/27/23 Status: Ordered Milk of Magnesia = 1,200 mg, By Mouth, 3 times a day, 0 Refills, Maintenance, 09/22/23 15:30:00 EST, Partial fill upon patient request if the prescription is for a schedule II opioid drug. Start Date: 09/22/23 Status: Ordered nystatin topical [id number] u/gm powder 1 application, Topically, 3 times [...] Team Personnel Name: Armani Reid DO Position: [facility] Renal MD Member Role: Lifetime Consulting Physician Address: Address: [address] [place] [address] [address] [facility] [place] [address]- Name: Erik Kim DO Position: [facility] Physician - Primary Care Member Role: PCP Address: Address: [address] [place] [address]- [place] Care Team Related Persons Name: LORENA HARRISON Address: home [address] [place] [address] Name: LAYNE TREADWELL Address: home [address] [place] [address]
--- OUTSIDE RECORDS SUMMARY | 2024-03-09 15:27 | XMS_ITS | Continuity of Care Document ---
Author Organization [facility] Syed Gene Address [address] [place] [id number]- Care Team Providers Care Char Filter Tank Tender Name Role Phone Erik Kim DO Primary Care Physician Encounter [facility] Date(s): 09/26/23 - 10/26/23 [facility] Adult [address] [place] [address]- Allergies, Adverse Reactions, Alerts Substance Reaction Severity [...] virus vaccine, inactivated 08/09/17 Avery rded SARS-CoV-2(COVID-19)mRNA-LNP vac([id number]) 08/02/23 Recorded Influenza Virus Vaccine (oldterm) 1 [...] Influenza Virus Vaccine (oldterm) 08/26/11 Recorde d [id number] 12y+ bivalent booster vax 08/06/22 Recorded pneumococcal 13-valent vaccine 6 07/25/22 Recorded pneumococcal 13-valent vaccine 7 12/14/18 Recorded pneumococcal 13-valent vaccine 12/14/18 Recorded pneumococcal 13-valent vaccine 8 06/06/16 Recorded pneumococcal 20-valent conjugate vaccine 07/25/22 Recorded SARS-CoV-2 mRNA (hhjrpac-clcl-hjejn) vax 03/13/22 Recorded SARS-CoV-2 mRNA (kmtqaqg-qmtf-xtylj) vax 9 08/21/21 Recorded SARS-CoV-2 mRNA (rrywooj-csyw-inwyn) vax 10 01/13/21 Recorded SARS-CoV-2 (COVID-19) mRNA BNT-162b2 vac 09/03/21 Recorded SARS-CoV-2 (COVID-19) Ad26 vaccine 01/13/21 Record ed zoster vaccine, inactivated 03/13/20 Recorded zoster vaccine, inactivated 12/09/19 Recorded Zoster Vaccine Live 11 12/09/19 Recorded Zoster Vaccine Live 03/13/12 Recorded tetanus/diphtheria/pertussis, acel(Tdap) 10/21/11 Recorded Pneumococcal Vaccine (oldterm) 11/08/06 Given pneumococcal 23-valent vaccine 12 11/08/06 Recorde d 1Result Comment: Unit: Unknown Route: Intramuscular Production Lead: Sanofi Pasteur 2Result Comment: Route: Intramuscular Production Lead: Sanofi Pasteur 3Result Comment: Unit: Unknown 4Result Comment: Unit: Unknown 5Result Comment: Unit: Unknown 6Result Comment: Unit: Unknown Route: Intramuscular Production Lead: Pfizer 7Result Comment: Unit: Unknown Route: Intramuscular Production Lead: [employer] 8Result Comment: Unit: Unknown 9Result Comment: Route: Intramuscular Production Lead: Sanofi Pasteur 10Result Comment: Unit: Unknown Route: Intramuscular Production Lead: [employer] 11Result Comment: Route: Intramuscular Production Lead: [employer] 12Result Comment: Unit: Unknown Medications acetaminophen 325 [...] Replace Required Details, Route to Pharmacy Electronically, [facility]/pharmacy #[id number], Partial fill upon patient reque... Start Date: [...] Team Personnel Name: Armani Reid DO Position: [facility] Renal MD Member Role: Lifetime Consulting Physician Address: Address: [address] [facility] [place] [address]- Name: Erik Kim DO Position: [facility] Physician - Primary Care Member Role: PCP Address: Address: [address] [place], [place] [address] Care Team Related Persons Name: LORENA HARRISON Address: home [address] [place] [address] Name: LAYNE TREADWELL Address: home [address] [place] [address]
--- OUTSIDE RECORDS SUMMARY | 2024-03-09 15:27 | XMS_ITS | Continuity of Care Document ---
Author Organization [facility] ter Address [address] [place] [id number]- Care Team Providers Care Sde Name Role Phone Erik Kim DO Primary Care Physician [place] [facility] [place]): 10/01/23 - 10/04/[address] [address]- Encounter Diagnosis Generalized weakness(Final) - 10/01/23 Fall(Final) - 10/01/23 Fall(Final) - 10/03/23 Discharge Disposition: A-D/C Home Attending Physician: Mahesh Covarrubias MD Admitting Physician: Hellen Ballard MD Referring Physician: Not on Staff, Referring MD Allergies, Adverse Reactions, Alerts Substance Reaction Severity Status Lisaml Hallucinations Active Immunizations Given and Recorded Vaccine Date Status Refusal Reason influenza virus vaccine, inactivated 08/02/23 Avery rded influenza virus vaccine, inactivated 08/06/22 Avery rded influenza virus vaccine, inactivated 08/21/21 Avery rded influenza virus vaccine, inactivated 08/09/20 Avery rded influenza virus vaccine, inactivated 07/05/19 Avery rded influenza virus vaccine, inactivated 08/08/18 Avery rded influenza virus vaccine, inactivated 08/09/17 Avery rded SARS-CoV-2(COVID-19)mRNA-LNP vac([id number]) 08/02/23 Recorded Influenza Virus Vaccine (oldterm) 1 [...] Influenza Virus Vaccine (oldterm) 08/26/11 Recorde d [id number] 12y+ bivalent booster vax 08/06/22 Recorded pneumococcal 13-valent vaccine 6 07/25/22 Recorded pneumococcal 13-valent vaccine 7 12/14/18 Recorded pneumococcal 13-valent vaccine 12/14/18 Recorded pneumococcal 13-valent vaccine 8 06/06/16 Recorded pneumococcal 20-valent conjugate vaccine 07/25/22 Recorded SARS-CoV-2 mRNA ([id number]-[id number]) vax 03/13/22 Recorded SARS-CoV-2 mRNA (lyyscql-ffgp-spkmx) vax 9 08/21/21 Recorded SARS-CoV-2 mRNA (sefnukr-efyq-apjbf) vax 10 01/13/21 Recorded SARS-CoV-2 (COVID-19) mRNA BNT-162b2 vac 09/03/21 Recorded SARS-CoV-2 (COVID-19) Ad26 vaccine 01/13/21 Record ed zoster vaccine, inactivated 03/13/20 Recorded zoster vaccine, inactivated 12/09/19 Recorded Zoster Vaccine Live 11 12/09/19 Recorded Zoster Vaccine Live 03/13/12 Recorded tetanus/diphtheria/pertussis, acel(Tdap) 10/21/11 Recorded Pneumococcal Vaccine (oldterm) 11/08/06 Given pneumococcal 23-valent vaccine 12 11/08/06 Recorde d 1Result Comment: Unit: Unknown Route: Intramuscular Art Coordinator: San[employer] 2Result Comment: Route: Intramuscular Art Coordinator: San[employer] 3Result Comment: Unit: Unknown 4Result Comment: Unit: Unknown 5Result Comment: Unit: Unknown 6Result Comment: Unit: Unknown Route: Intramuscular Art Coordinator: [employer] 7Result Comment: Unit: Unknown Route: Intramuscular Art Coordinator: Wyeth 8Result Comment: Unit: Unknown 9Result Comment: Route: Intramuscular Art Coordinator: San[employer]i Pasteur 10Result Comment: Unit: Unknown Route: Intramuscular Art Coordinator: [employer] 11Result Comment: Route: Intramuscular Art Coordinator: [employer] 12Result Comment: Unit: Unknown Medications acetaminophen 325 mg oral tablet TAKE 2 TABLETS (650 MG)ORALLY EVERY 6 HOURS NEEDED FOR PAIN, MILD (PAIN SCALE 1-3) Start Date: 09/22/23 Status: Ordered Acetaminophen Tablet 650 mg, Tablet, By Mouth, Every 4 hours, PRN for Pain , Mild, Temperature Greater than 100.5, Routine, 10/01/23 16:55:00 EST Start Date: 10/01/23 Stop Date: 10/05/23 Status: Discontinued amLODIPine 2.5 mg oral tablet 2.5 mg, 1, tablet, By Mouth, Daily, Refills 0, Maintenance, 08/29/22 8:26:00 EDT, Partial fill uponpatient request if the prescription is for a schedule II opioid drug. Start Date: 08/29/22 Status: Ordered amLODIPine 5 mg oral tablet 2.5 mg, Tablet, By Mouth, 10/04/23 9:00:00 EST Start Date: 10/04/23 Stop Date: 10/04/23 Status: Completed atorvastatin 40 mg oral tablet 1 tablet [...] Replace Required Details, Route to Pharmacy Electronically, [facility]/pharmacy #[id number], Partial fill upon patient reque... Start Date: 09/22/23 Status: Ordered gabapentin 300 mg oral capsule 300 mg, Capsule, By Mouth, 10/04/23 9:00:00 EST Start Date: 10/04/23 Stop Date: 10/04/23 Status: Completed hydrOXYzine hydrochloride 25 mg oral tablet 1 [...] Exam Date Time Procedure Performing Provider Status 10/01/23 10:25 AM XR Hip w/Pelvis 2-3 View Right Iliana Cristobal; Auth (Verified) Notes: (XR Hip w/Pelvis 2-3 View Right) Reason For Exam: Pain RESULT: XR Hip w/Pelvis 2-3 View Right XR Hip w/Pelvis 2-3 View Right HX OF PRESENT ILLNESS: Pt was using walker out side of bathroom when her knees gave out like wet spaghetti beneath me , pt head landed on bedspread, and rest of body on ground, pt endorsing that R arm and R knee were affected during fall to ground. COMPARISON: None. FINDINGS: AP pelvis, 2 views of the right hip. Somewhat limited diagnostic quality, especially the views of the hip related to patient body habitus. There is no fracture or dislocation. Mild degenerative changes in the hips with moderate degenerative changes involving the included spine, sacroiliac joints and pubic symphysis. A few vascular calcifications and pelvic phleboliths are noted. IMPRESSION: No acute fracture. I have personally reviewed the images and I agree with this report. WSN: [id number] Ordering Physician: Ruba Morrow Dictated By: Fermin Mclean MD Dictated Date/Time: 10/01/23 10:42 a Reviewed By: Caesar Lynn MD Signed By: Caesar Lynn MD Signed Date/Time: 10/01/23 10:47 am Transcribed By: JULIA Transcribed Date/Time: 10/01/23 10:37 am * Exam Date Time Procedure Performing Provider Status 10/01/23 8:[address] Cervical Spine W/O Contrast Brendon Weber; Auth (Verified) Notes: (CT Cervical Spine W/O Contrast) Reason For Exam: Neck trauma, dangerous injury mechanism;Other: RESULT: CT Cervical Spine W/O Contrast CT Head/Brain W/O Contrast, CT Cervical Spine W/O Contrast INDICATION: Hx of Present Illness: pt was using walker out side of bathroom when her knees gave out like wet spaghetti beneath me , pt head landed on bedspread, and rest of body on ground, pt endorsing that R arm and R knee were affected during fall to ground,; Reason: Trauma; Clinical Question(s): Hematoma; Order Comment: TECHNIQUE: Noncontrast head CT using axial technique was reconstructed in axial and coronal planes.Noncontrast spiral CT through the cervical spine was formatted in 3 planes. Automatic tube modulation was used for the cervical spine and iterative dose reconstruction was used for both the head and cervical spine to optimize scan parameters and image quality. CTDIvol Body: 25.00 mGy, DLP Body: 707 mGy*cm. CTDIvol Head: 45.40 mGy, DLP Head: 1160 mGy*cm. COMPARISON: None. FINDINGS: Casting Finisher View Findings, Lines and Tubes: None. BRAIN AND EXTRA-AXIAL SPACES: No parenchymal hemorrhage, midline shift, or mass effect. Isaac-white matter differentiation is wellpreserved. No acute infarct. Ventricles, sulci, and basilar cisterns are normal. Mild low-density white matter changes. No subarachnoid hemorrhage. No subdural or epidural collection. CALVARIUM, SKULL BASE, AND SOFT TISSUES: No fractures or suspicious bony lesions. The paranasal sinuses and mastoid air cells are clear. Visualized orbits and globes are intact. The extracranial soft tissues are unremarkable. CERVICAL SPINE: No fracture. No acute osseous abnormalities. Normal alignment. No locked or perched facet. Moderate multilevel degenerative disc space narrowingand end plate irregularity. Narrowing of the atlantodens interval. OTHER BONES: No acute abnormality. CERVICAL SOFT TISSUES AND LUNG APICES: Normal soft tissues. Visualized lung apices are clear. IMPRESSION: No acute abnormality of the head or cervical spine. WSN: [id number] Ordering Physician: Ruba Morrow Dictated By: Kye Sánchez MD Dictated Date/Time: 10/01/23 9:02 am Reviewed By: Kye Sánchez MD Signed By: Kye Sánchez MD Signed Date/Time: 10/01/23 9:02 am Transcribed By: JULIA Transcribed Date/Time: 10/01/23 8:52 am * Exam Date Time Procedure Performing Provider Status 10/01/23 8:[address] Head/Brain W/O Contrast Stehr , Be th-Anusha; Auth (Verified) Notes: (CT Head/Brain W/O Contrast) Reason For Exam: Trauma RESULT: CT Head/Brain W/O Contrast CT Head/Brain W/O Contrast, CT Cervical Spine W/O Contrast INDICATION: Hx of Present Illness: pt was using walker out side of bathroom when her knees gave out like wet spaghetti beneath me , pt head landed on bedspread, and rest of body on ground, pt endorsing that R arm and R knee were affected during fall to ground,; Reason: Trauma; Clinical Question(s): Hematoma; Order Comment: TECHNIQUE: Noncontrast head CT using axial technique was reconstructed in axial and coronal planes.Noncontrast spiral CT through the cervical spine was formatted in 3 planes. Automatic tube modulation was used for the cervical spine and iterative dose reconstruction was used for both the head and cervical spine to optimize scan parameters and image quality. CTDIvol Body: 25.00 mGy, DLP Body: 707 mGy*cm. CTDIvol Head: 45.40 mGy, DLP Head: 1160 mGy*cm. COMPARISON: None. FINDINGS: Casting Finisher View Findings, Lines and Tubes: None. BRAIN AND EXTRA-AXIAL SPACES: No parenchymal hemorrhage, midline shift, or mass effect. Isaac-white matter differentiation is wellpreserved. No acute infarct. Ventricles, sulci, and basilar cisterns are normal. Mild low-density white matter changes. No subarachnoid hemorrhage. No subdural or epidural collection. CALVARIUM, SKULL BASE, AND SOFT TISSUES: No fractures or suspicious bony lesions. The paranasal sinuses and mastoid air cells are clear. Visualized orbits and globes are intact. The extracranial soft tissues are unremarkable. CERVICAL SPINE: No fracture. No acute osseous abnormalities. Normal alignment. No locked or perched facet. Moderate multilevel degenerative disc space narrowingand end plate irregularity. Narrowing of the atlantodens interval. OTHER BONES: No acute abnormality. CERVICAL SOFT TISSUES AND LUNG APICES: Normal soft tissues. Visualized lung apices are clear. IMPRESSION: No acute abnormality of the head or cervical spine. WSN: [id number] Ordering Physician: Ruba Morrow Dictated By: Kye Sánchez MD Dictated Date/Time: 10/01/23 9:02 am Reviewed By: Kye Sánchez MD Signed By: Kye Sánchez MD Signed Date/Time: 10/01/23 9:02 am Transcribed By: JULIA Transcribed Date/Time: 10/01/23 8:52 am * Exam Date Time Procedure Performing Provider Status 10/01/23 8:20 AM Knee 1 or 2 Views Right Paolo Cristobal; Auth (Verified) Notes: (Knee 1 or 2 Views Right) Reason For Exam: Pain RESULT: Knee 1 or 2 Views Right Knee 1 or 2 Views Right, 2 views HX OF PRESENT ILLNESS: pt was using walker out side of bathroom when her knees gave out like wet spaghetti beneath me , pt head landed on bedspread, and rest of body on ground, pt endroisng that R arm and R knee were affected during fall to ground,; Reason: Pain; Clinical Question(s): Fracture COMPARISON: 09/24/2023.. FINDINGS: No bone lesions or fractures. Severe tricompartmental degenerative osteoarthritis but no evidence of osteochondral defect or intra-articular loose body. No evidence of joint effusion. IMPRESSION: Severe tricompartmental degenerative osteoarthritis but no acute abnormality. I have personally reviewed the images and I agree with this report. WSN: [id number] Ordering Physician: Ruba Morrow Dictated By: Fermin Mclean MD Dictated Date/Time: 10/01/23 8:42 am Reviewed By: Rommel Maldonado MD Signed By: Rommel Maldonado MD Signed Date/Time: 10/01/23 8:47 am Transcribed By: JULIA Transcribed Date/Time: 10/01/23 8:36 am * Exam Date Time Procedure Performing Provider Status 10/01/23 8:20 AM Ankle Min 3 Views Right Paolo Cristobal; Auth (Verified) Notes: (Ankle Min 3 Views Right) Reason For Exam: Pain RESULT: Ankle Min 3 Views Right Ankle Min 3 Views Right Hx of Present Illness: pt was using walker out side of bathroom when her knees gave out like wet spaghetti beneath me , pt head landed on bedspread, and rest of body on ground, the R arm and R knee were affected during fall to ground,; Reason: Pain; Clinical Question(s): Fracture COMPARISON: None. FINDINGS: No evidence of acute or healing fracture or bone lesion. Intact ankle mortise and talar dome. There is spurring of the tip of the medial malleolus. There is a small inferior calcaneal spur. Normal soft tissues. IMPRESSION: No fracture present. WSN: [id number] Ordering Physician: Ruba Morrow Dictated By: John Hernandez MD Dictated Date/Time: 10/01/23 8:26 am Reviewed By: John Hernandez MD Signed By: John Hernandez MD Signed Date/Time: 10/01/23 8:26 am Transcribed By: JULIA Transcribed Date/Time: 10/01/23 8:24 am * Exam Date Time Procedure Performing Provider Status 10/01/23 8:20 AM Knee 1 or 2 Views Left Raffy Cristobal; Auth (Verified) Notes: (Knee 1 or 2 Views Left) Reason For Exam: Pain RESULT: Knee 1 or 2 Views Left Knee 1 or 2 Views Left, 2 views Hx of Present Illness: pt was using walker out side of bathroom when her knees gave out like wet spaghetti beneath me , pt head landed on bedspread, and rest of body on ground, pt endorsing that R arm and R knee were affected during fall to ground,; Reason: Pain; Clinical Question(s): Fracture COMPARISON: None. FINDINGS: Tricompartment osteoarthritis, severe in the medial compartment and moderate to severe at the patellofemoral compartment. Trace joint effusion. No fracture. IMPRESSION: No acute osseous injury identified. Tricompartment osteoarthritis. WSN: [id number] Ordering Physician: Ruba Morrow Dictated By: Ric Schmidt MD Dictated Date/Time: 10/01/23 8:24 am Reviewed By: Ric Schmidt MD Signed By: Ric Schmidt MD Signed Date/Time: 10/01/23 8:24 am Transcribed By: JULIA Transcribed Date/Time: 10/01/23 8:23 am * Exam Date Time Procedure Performing Provider Status 10/01/23 8:20 AM Ankle Min 3 Views Left Raffy Cristobal; Auth (Verified) Notes: (Ankle Min 3 Views Left) Reason For Exam: Pain RESULT: Ankle Min 3 Views Left Ankle Min 3 Views Left HX OF PRESENT ILLNESS: PT was using walker out side of bathroom when her knees gave out like wet spaghetti beneath me , pt head landed on bedspread, and rest of body on ground, pt endorsing that R arm and R knee were affected during fall to ground, COMPARISON: None. FINDINGS: No evidence of acute or healing fracture or bone lesion. Intact ankle mortise and talar dome. Moderate plantar calcaneal bone spur. Normal soft tissues. IMPRESSION: No acute osseous process. I have personally reviewed the images and I agree with this report. WSN: [id number] Ordering Physician: Ruba Morrow Dictated By: Fermin Mclean MD Dictated Date/Time: 10/01/23 8:31 am Reviewed By: Ric Schmidt MD Signed By: Ric Schmidt MD Signed Date/Time: 10/01/23 8:36 am Transcribed By: JULIA Transcribed Date/Time: 10/01/23 8:30 am Vital Signs Most recent to oldest [Reference Range]: 1 2 3 Height 170.18 cm (10/04/23 12:18 PM) 170.18 cm (10/04/23 7:17 AM) 170.18 cm (10/04/23 12:24 AM) Weight 127.2 kg (10/02/23 2:36 AM) 131.54 kg (10/02/23 12:20 AM) 131.54 kg (10/01/23 7:49 PM) Oxygen Saturation [94-100 %] 97 % (10/04/23 12:18 PM) 95 % (10/04/23 7:17 AM) 96 % (10/04/23 12:24 AM) Pulse Rate [55-90 bpm] 97 bpm *H* (10/04/23 12:18 PM) 71 bpm (10/04/23 7:17 AM) 75 bpm (10/04/23 12:24 AM) Body Mass Index [18.5-24.99 kg/m2] 43.92 kg/m2 *>HHI* (10/02/23 2:36 AM) 45.42 kg/m2 *>HHI* (10/02/23 12:20 AM) 45.42 kg/m2 *>HHI* (10/01/23 7:49 PM) Blood Pressure [90-138/55-84 mm Hg] 128/75mm Hg (10/04/23 12:18 PM) 105/56mm Hg (10/04/23 9:33 AM) 105/56mm Hg (10/04/23 7:17 AM) Respiratory Rate [16-30 br/min] 18 br/min (10/04/23 1:00 PM) 18 br/min (10/04/23 10:33 AM) 18 br/min (10/04/23 9:33 AM) Temperature [96.8-100.4 DegF] 97.4 DegF (10/04/23 7:17 AM) 98.1 DegF (10/04/23 12:24 AM) 98.2 DegF (10/03/23 7:44 PM) Mode of Delivery (Oxygen) BiPAP (10/04/23 7:17 AM) Room air (10/04/23 12:24 AM) Room air (10/03/23 7:44 PM) Blood pressure sites Arm, left (10/04/23 12:18 PM) Arm, right (10/04/23 7:17 AM) Arm, right (10/04/23 12:24 AM) Temperature Route Axillary (10/04/23 7:17 AM) Oral (10/04/23 12:24 AM) Oral (10/03/23 7:44 PM) Dry Weight 127.2 kg (10/02/23 2:36 AM) 131.54 kg (10/02/23 12:20 AM) 131.54 kg (10/01/23 7:49 PM) Weight Obtained Via Bed scale (10/02/23 2:36 AM) Patient/family stated (10/01/23 6:34 AM) Dry Weight Obtained Via Bed scale (10/02/23 2:36 AM) Patient/family stated (10/01/23 6:34 AM) Social History Social History Type Response Smoking Status Former smoker, quit more than 30 days ago; Other: quit 1973 6 yrs toal 11/13 6; Number of years: 6; Total pack years: 2; entered on: 07/03/23 Sex Consult note * Cara SUMMERS, Julio C Martinez: PERFORM, MODIFY, MODIFY Event Display: Consult Authored Date: Patient: ??BEN HURTADO ? Age:??73 Years?Sex:??Female?:??1950?? Chief Complaint I'm very sad today. Reason for consult: severe depression Consult requested by: Mahesh Covarrubias MD History of Present Illness Ben Hurtado is a 73-year-old female with history of obesity, essential hypertension, hyperlipidemia, SELMA???on CPAP, bilateral upper extremity resting tremor (follows with Dr. Canales neurology movement disorder clinic at [facility]), T2DM complicated by peripheral neuropathy, known thyroid nodules???currently pending thyroid US which will likely happen in November 2023), mixed urinary incontinence, GERD with Martinez's esophagus, chronic normocytic anemia, chronic??rhinosynovitis, atrial fibrillation???on Eliquis, major depressive disorder, borderline personality disorder, recent suicide attempt by overdosing on tramadol and Klonopin (was admitted to [facility] between 08/29 - 08/30/2023)???closely follows with psychiatrist Juan David Beaulieu, bilateral knee??OA with recurrent history of falls who was admitted for work-up weakness and deconditioning. ?? Pnt reported to primary team that she was feeling very depressed and given recent suicide attempt, psychiatry is consulted for assessment. ?? She starts the interview by describing??lifelong difficulties with her siblings??that have worsenedas she has gotten older. States that they try to control her life and tell her what's best, including recently selling her car. 2 weeks ago she moved into a new independent living facility and now her family is trying to force her into the assisted living side. She says her older sister came to visit today and they had an argument and she didn't even want to acknowledge who her sister was. Following this argument she felt very sad so she told her doctor about that and said she wanted to speakwith someone. She's called her outpatient psychiatrist numerous times and left messages but she says he's out for the holiday and won't be back until Friday. ?? She says she feels hopeless, depressed, sees no point in life, and doesn't want to go on like this.States that in August she decided she didn't want to live anymore and so she took extra pills and texted one of her sister's that she was going to go to sleep for a very long time. she says that sister called the police and she was taken to the hospital. She did not like being psychiatrically hospitalized and did not find it helpful but she was set up with a therapist on discharge; however shehas not been able to have an intake with the new therapist yet. ?? She denies intent or plan to kill herself now. She says she feels safe in the hospital and denies that she would do anything to hurt herself here. She says her grandson called her yesterday and that he is a reason for her to keep living. She could not tell me that she would be safe when she goeshome; she says she has less pills now (only gets a few days of clonazepam at a time) but feels veryambivalent about living. Discussed psychiatric hospitalization but she is very opposed to that. Review of Systems All systems reviewed and negative except as noted in HPI. Mental Status Mental Status Examination Appearance: obese, intact grooming, sitting up at bedside Attitude toward examiner:??Cooperative Activity:??normal Mood:? very sad Affect:??incongruent, reactive Speech:??regular rate, volume, prosody Language:??fluent Thought Process:??linear, goal-directed Thought Content:??no delusional content ?Suicidal Ideation:??SI without plan or intent Perceptions:??No A/V H Cognition: ?Alert ?Oriented to??person, place, time, and situation ?Memory:??intact to recent events ?Concentration:??intact to conversation ?Fund of knowledge: appropriate to age ?Abstract reasoning:??intact Insight:??fair Judgement:??fair ?? Neurological Examination Cranial Nerves: EOMI, face symmetric, no dysarthria?? Motor: mild resting tremor in R hand Sensory: intact to light touch in b/l UEs ?? [place] Suicide Score [place] Suicide Assessment Ca (10/02/23) Suicidal Thoughts Past Month - CSSRS: No (10/02/23) Suicide Behavior Lifetime - CSSRS: Yes (10/02/23) Suicide Behavior Past 3 Months - CSSRS: Yes (10/02/23) Wish to be Past Month - CSSRS: No (10/02/23) Assessment/Plan 73 y/o F w/hx of MDD, borderline personality disorder, multiple psychiatric hospitalizations, suicide attempt and hospitalization last month and multiple chronic medical issues here for falls and weakness. Patient endorses depressive symptoms and passive SI in the context of an argument with her sister this morning and being on the wrong psychiatric regimen for a few days. She does have some riskfactors for suicide including hx of depression and BPD, recent suicide attempt, recent discharge from inpatient psych facility, recent change to living situation. Protective factors include good relationship without outpatient providers and psychiatrist, love for her grandson, lack of active SI, and future-oriented thinking (tells me about upcoming neurology appointment, plans to engage with new therapist, etc). Patient does not require 1:1 or SI precautions at this time but will need follow-upbefore discharge to determine if patient's need psychiatric placement. ?? Diagnosis: MDD, recurrent, moderate borderline personality disorder ?? Recommendations: -patient will need psychiatric re-assessment prior to discharge and may not leave without psychiatric clearance -we will follow-up tomorrow -please d/c topirimate; pnt says her neurologist told her to stop taking it b/c of side effects -please ensure she is on the following psychiatric medication: gabapentin 300 mg qAM and 600 mg qHS, Wellbutrin 300 mg qD, duloxetine DR 120 mg qD, lamotrigine 300 mg qHS, clonazepam 0.25 mg qAM PRN anxiety and 0.5 mg qHS. ?? Recommendations discussed with Dr. Covarrubias. ?? Julio C Marroquin MD Attending, Psychiatry Consultation Service [facility] ?? 80 min spent reviewing chart, speaking with primary team, obtaining the HPI, examining patient, and counseling the patient on??depression and treatment options.?? Problem List/Past Medical History Ongoing AF (paroxysmal atrial fibrillation) Anemia Atrial fibrillation Martinez esophagus Borderline personality disorder Chronic Pain Chronic rhinosinusitis Diabetes type 2, controlled Essential hypertension Fecal incontinence GERD - Gastro-esophageal reflux disease Major depression in partial remission Medicare annual wellness visit, subsequent Morbid Obesity Muscular deconditioning Obstructive sleep apnea on CPAP Osteoarthritis of both knees Rectocele Recurrent falls Resting tremor Severe obesity Sleep apnea Suicide attempt Toxic metabolic encephalopathy Type 2 diabetes mellitus with peripheral neuropathy Urinary incontinence, mixed Procedure/Surgical History ???Breast reduction???Correction of hammer toe???Hysterectomy???Laparoscopic salpingo-oophorectomy???Gutierrez???SILVER - Total abdominal hysterectomy Medications Inpatient Acetaminophen Tablet, 650 mg, By Mouth, Every 4 hours, PRN amLODIPine 5 mg oral tablet, 2.5 mg, By Mouth, Daily BuPROpion XL Tablet, 300 mg, By Mouth, Daily clonazePAM 0.5 mg oral tablet, 0.5 mg, By Mouth, Daily at bedtime clonazePAM 0.5 mg oral tablet, 0.25 mg, By Mouth, Daily, PRN Dextrose 50% Inj Syringe (25Gm), 12.5 Gm, IV Push Slowly, Every 20 minutes, PRN Dextrose 50% Inj Syringe (25Gm), 25 Gm, IV Push Slowly, Every 15 minutes, PRN Docusate Sodium Capsule, 100 mg= 1 capsule, By Mouth, 2 times a day, PRN DULoxetine Capsule, 120 mg, By Mouth, Daily Eliquis, 5 mg, By Mouth, 2 times a day gabapentin 300 mg oral capsule, 300 mg, By Mouth, Daily in AM gabapentin 300 mg oral capsule, 600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 Problem Start 10/02/2023 2:53 Reviewed plan with, Safety Patient Patient Progression, Safety Pt progressing according to plan . Nursing Data Cardiac Data. : Cardiac Data. 10/04/2023 13:00 EST Cardiovascular WNL . Gastrointestinal Data. : Gastrointestinal Data. 10/04/2023 13:00 EST Last Bowel Movement 10/03/2023 GI WNL . Genitourinary Data. : Genitourinary Data. 10/04/2023 13:00 EST WNL . HEENT Data. : HEENT Assessment 10/04/2023 13:00 EST HEENT, Adult WNL . Integumentary Data. : Integumentary Data. 10/04/2023 13:02 EST Integumentary WNL 10/04/2023 13:00 EST Sensory Perception No impairment Moisture Rarely moist Activity Walks occasionally Mobility No limitations Nutrition Excellent Friction and Shear No apparent problem Carrillo Score 22 Nursing Care Plan initiated/updated Not applicable Integumentary WNL . Musculoskeletal Data. : Musculoskeletal Data. 10/04/2023 13:00 EST Musculoskeletal Symptoms Weakness Musculoskeletal WNL except . Neurological Data. : Neurological Data. 10/04/2023 13:00 EST Pain Intensity 0 Neuro WNL . Respiratory/Pulmonary Data. 10/04/2023 13:00 EST Respiratory Treatment(s) Cough and deep breathe Respiratory WNL . Narrative/Incidental Pt is A/O x 3 afrebrile reporting no pain, N/V, shortness of breath or chest pain. +PP no edema present. Lung sounds are clear bilaterally on RA, respirations even and steady. vital signs are stable.Pt is receiving treatments as prescribed. Pt is tolerating diet well with good appetitie. Pt is voiding in the bathroom independently with the walker. Last BM was 10/03. Patient to be discharged with[facility] at 1700, patient aware of out of pocket pay and accepts. Bed in lowest, locked position. Pt instructed to use the call solano for assistance. Call solano in reach for safety.. * Adrian Muniz DO: PERFORM Event Display: Progress Note Hospital Authored Date: Patient: ??BEN HURTADO ? Age:??73 Years?Sex:??Female?:??1950?? Subjective Chief complaint:? They messed up my medicines yesterday. ?? Patient seen, chart reviewed, and discussed with treatment team.? Interval History: No acute overnight events. Patient was seen in f/u this morning at the request ofhospitalist and initial psychiatrist ??for re- evaluation of risk assessment and assistance with disposition. Ben is found initially on the phone speaking pleasantly with family member about this medical hospitalization and??impending discharge later this morning.?? When seen later in the morning, she was found to be alert and oriented to all spheres.?? She states that??she has struggled with??a few of the nursing providers during her brief hospitalization, relaying concerns about??medication disbursement,??receiving insulin??therapies when she is??not??taking insulin at home,??working with??staff who??speak Persian??with an accent she has trouble understanding.?? She reports that??sanford is much better today, which she??attributes directly to medication adherence (specifically Cymbalta).?? She expresses some irritability and frustration??yesterday,??especially after having some sort of conflict with her sister,??but again reports that she is in a better ??mental state ??at this time.?? She reports fair??sleep and appetite.?? She reports having??an appointment with her longstanding outpatient psychiatrist Dr. Suresh Beaulieu??this 10/06/2023. She missed a therapy appointment this past week due to hospitalization, but will reconnect with her therapist as soon as sheis discharged. Amenable to receiving information on crisis services in the community. This typewriter mechanic also put the phone number for crisis directly onto her cellphone. Otherwise, denies any adverse effects on current medication regimen.??ADLs??appear attentive without incident. ??Able to make needs know n.??She denies any additional??symptoms concerning for anxiety, depression, linda, psychosis or PTSD. She adamantly denies any suicidal ideation (active and passive), homicidal ideation or desires for self-injurious behaviors.? Review of Systems Pertinent positives as listed above in HPI. ??Otherwise, remainder of review of systems negative. Objective Vitals & Measurements T:??97.4?F?? TMIN:??97.4?F?? TMAX:??98.2?F?? HR:??71??(Peripheral)?? RR:??18?? BP:??105/56?? SpO2:??95%?? Mental Status Mental Status Exam Appearance:??Hospital gown, overweight, walker at bedside Eye contact: Within normal limits Attitude: Cooperative Motor Activity: Calm; absent of tics, tremors, psychomotor agitation, psychomotor slowing Mood: I'm feeling better today Affect: Congruent, bright on approach, fair range, supple motility Speech: Fluent, unimpaired; of normal rate, tone and prosody?? Perception: No reported AVH; no objective impairment, preoccupation or responding to internal stimuli Orientation: Intact to all spheres ?? Memory: Grossly intact Thought Process: Coherent, goal-directed Thought Content: Hopeful, future-oriented, help-seeking. No delusions, paranoia, or abnormal thought content elicited or reported. Overall, relevant to encounter. Reliability: Fair historian Insight: Limited Judgment: Limited?? Impulse control: Limited Suicidality/Self-destructive Behavior: None currently Homicidality/Violence: None currently Muscle strength/tone: Antigravity. No cogwheeling or??rigidity noted. Not observed ambulating, but moving all four extremities spontaneously.? Lab Results Event Name?? Event Result?? Normal Range?? Date/Time?? Hold Lavender Top SPECIMEN DISCARDED AFTER 24 HOURS. ?? 10/04/23 08:41:00 Sodium 144 mmol/L 133 mmol/L - 145 mmol/L 10/04/23 08:41:00 Potassium 4.2 mmol/L 3.6 mmol/L - 5.2 mmol/L 10/04/23 08:41:00 Chloride 107 mmol/L 98 mmol/L - 107 mmol/L 10/04/23 08:41:00 Bicarbonate Level 26 mmol/L 22 mmol/L - 29 mmol/L 10/04/23 08:41:00 Anion Gap 11 4 ??- 17 10/04/23 08:41:00 Glucose Level 108 mg/dL??High 70 mg/dL - 99 mg/dL 10/04/23 08:41:00 Glucose, POC 139 mg/dL??High 70 mg/dL - 99 mg/dL 10/04/23 09:24:00 Glucose, POC 87 mg/dL 70 mg/dL - 99 mg/dL 10/03/23 20:35:00 Glucose, POC 81 mg/dL 70 mg/dL - 99 mg/dL 10/03/23 16:16:00 Glucose, POC 117 mg/dL??High 70 mg/dL - 99 mg/dL 10/03/23 11:52:00 BUN 13 mg/dL 8 mg/dL - 23 mg/dL 10/04/23 08:41:00 Creatinine-Blood 1 mg/dL 0.5 mg/dL - 1 mg/dL 10/04/23 08:41:00 Estimated GFR Creatinine 63 ML/MIN/1.73 M2 ?? 10/04/23 08:41:00 Calcium 9.7 mg/dL 8.6 mg/dL - 10.5 mg/dL 10/04/23 08:41:00 Est Creatinine Clearance 49.45 mL/min ?? 10/04/23 09:30:31 ? [place] Suicide Score [place] Suicide Assessment Ca (10/02/23) Suicidal Thoughts Past Month - CSSRS: No (10/02/23) Suicide Behavior Lifetime - CSSRS: Yes (10/02/23) Suicide Behavior Past 3 Months - CSSRS: Yes (10/02/23) Wish to be Past Month - CSSRS: No (10/02/23) Assessment/Plan Assessment: Per initial consult dated 10/03/23, 73 y/o F w/hx of MDD, borderline personality disorder, multiple psychiatric hospitalizations, suicide attempt and hospitalization last month and multiple chronic medical issues here for falls and weakness. Patient endorses depressive symptoms and passive SI in the context of an argument with her sister this morning and being on the wrong psychiatric regimen for a few days. She does have some risk factors for suicide including hx of depression andBPD, recent suicide attempt, recent discharge from inpatient psych facility, recent change to living situation. Protective factors include good relationship without outpatient providers and psychiatrist, love for her grandson, lack of active SI, and future-oriented thinking (tells me about upcomingneurology appointment, plans to engage with new therapist, etc). Patient does not require 1:1 or SIprecautions at this time but will need follow- up before discharge to determine if patient's need psychiatric placement. ?? 10/04/23: Ben reports improvements in??depressive mood and recent passive suicidality,??especially given that??it sounded as though she resolved things with her sister and is now receiving her??psychotropic medications as ordered in the community.??There was however continuation of splitting defenses. Regardless, Ben expressed motivation to seek outpatient treatment and psychotherapy upon discharge. She denied any ongoing thoughts of suicide or homicide. She denied having any access to firearms. She denied any symptoms suggestive of depression, psychosis or linda. She expressed a good understanding of the fact that current mental illness could get worse if the patient stopped taking their medications or became noncompliant with psychotherapy upon discharge. At this point in time, the protective factors are lack of any symptoms of depression, psychosis or linda, presence of clear coherent thought process, compliance with current medication regimen and motivation to continue following up with outpatient treatment. At the time of discharge, patient's imminent risk for suicide wasdeemed low. Nevertheless, because of her underlying borderline personality disorder, the patient isat chronic risk of self-injurious behavior due to intense dysregulation of mood and impulsivity that is a hallmark of borderline personality disorder. With intermediate psychotherapy, she is likely to benefit with better control of personality disorder. Prognosis contingent upon adherence to treatmentplan. Patient poses low risk to self and others, denies SI/HI/AVH. Based on history, collateral information and evaluation, there was not evidence of acute/imminent risk of harm to self or others today and hence do not meet criteria??for emergency restraint??and/or??hospitalization under M.G.L.[place]Ch123, Section 12 at this time. Seems well enough to be appropriate for step down to outpatient care at this time.? Diagnosis: Borderline personality disorder MDD, recurrent, moderate, without psychotic features Suicidal ideation (resolved) ? Recommendations: -No SI/HI/AVH; no acute nor imminent safety concerns necessitating inpatient psychiatric hospitalization nor meeting criteria for section 12 at this time. Psychiatrically cleared for discharge back to longstanding outpatient/community mental healthcare providers. -Ben is aware to call 911, the crisis hotline, text [phone]??or to head to the nearest ED if any safety concerns arise. Patient was advised to keep medications, sharp objects or any weapons out of reach and safely locked.?? -Please ensure she is on the following psychiatric medication: gabapentin 300 mg PO qAM and 600 mg qHS, Wellbutrin XL 300 mg PO qD, Cymbalta DR 120 mg PO??qD, Lamictal 300 mg PO qHS, clonazepam 0.25 mg P{O qAM PRN anxiety and 0.5 mg PO qHS. -Would note that these medications are only being utilized in the ER and/or medical floors while the patient awaits placement. Long-term need for these medications will need to be assessed by the patient's future treating psychiatrist. -Can pass along [facility] resource list is she should be so inclined to reach out to new therapist. ? Thank you for allowing us to participate in this patient's care. We will sign off. Please feel freeto contact the Psychiatry consult service (pager [phone]) with any questions or concerns.? Recommendations??TigerTexted to hospitalist, Dr. Mahesh Covarrubias. ? Adrian Muniz D.O.?? Postal Sorting Officer, Emergency Psychiatry Services Division of Consultation-Liaison Psychiatry Department of Psychiatry [facility]? * Stormy Farah RN: VERIFY, PERFORM, SIGN Event Display: Progress Note Hospital Authored Date: Patient: BEN HURTADO Age: 73 years Sex: Female : 1950 Associated Diagnoses: None Author: Stormy Farah RN Findings Problem Related to Alteration in Musculoskeletal : Alteration in Musculoskeletal Func/new 10/03/2023 16:00 EST Alteration in Musculoskeletal Related to Other: Weakness Goals & Outcomes, Musculoskeletal Pt able to perform ADL's to best of ability, Pt demonstrates precautions/exercise/ transfers per protocol, Pt will ambulate safely with assistive device Interventions, Musculoskeletal Monitor patients ambulation status, monitor Color/Motion/Sensation, Encourage deep breathing & coughing exercises, Notify MD immediately if tissue perfusion deteriorates, Teach & Encourage use of Incentive spirometer, Teach Pt/caregiver on ADL's & adaptiveequipment, Teach Pt/caregiver on exercises, Teach pt/caregiver on use of pain scale, Teach Pt/caregiver complications of immobility, Teach Pt/caregiver techniques to increase mobility, Teach Pt/caregiver on safety precautions BH Goals/Interventions, Musculoskeletal Yes Musculoskeletal, Problem Start 10/02/2023 19:54 Reviewed Plan with, Musculoskeletal Patient Patient Progression, Musculoskeletal Pt progressing according to plan . Alteration in Psychosocial : Alteration in Psychosocial Function/new 10/03/2023 16:00 EST Alteration in Psychosocial Related to Ineffective coping, Other: depression Goals & Outcomes, Psychosocial Psychosocial support will be provided to Pt/S.O. as needed, Pt will identify stressors leading up to event, Pt will state importance of adhering to medication regime, Pt/caregiver will be offered appropriate resources & support, Pt/caregiver will express feelings/needs/fears /concerns, Pt/caregiver will maintain/obtain psychological stability, Pt/caregiver will participate in coping skill counseling Interventions, Psychosocial Assess psychosocial needs, Assess readiness to learn needed lifestyle changes, Assess/monitor level of consciousness, Collaborate with provider for psychiatric consult, Evaluate resources & support system available to pt, Provide a calm, supportive environment, Provide chances to express concerns/emotions/expectations, Provide info on community resources for education, support, Provide information about illness and recovery, Provide verbal limits if pt's behaviorescalates BH Goals/Interventions, Psychosocial Yes Psychosocial, Problem Start 10/03/2023 16:20 Reviewed Plan with, Psychosocial Patient Patient Progression, Psychosocial Plan Initiation . Evaluation A+Ox4. VSS. Pt denies SOB, chest pain, N/V/D. Respirations even and steady, on RA. IPOC rounds completed on pt today. POC with meals, please see [facility] for insulin administration. Pt c/o severe depression, Provider notified and psych consult ordered. Pt able to make needs known. Bed locked, in lowest position, and alarms in place. Call solano placed next to patient within reach, pt encouraged to ring for assistance. . Discharge Information Pulmonary Rehab Discharge : Pulmonary Rehab Discharge Status 10/03/2023 3:50 EST CPAP/BiPAP Mask Type Full CPAP/BiPAP Mask Size Small 10/03/2023 0:02 EST CPAP/BiPAP Mask Type Full CPAP/BiPAP Mask Size Small Rehabilitation Discharge : Rehab Discharge Index 10/01/2023 12:21 EST Comments on treatment indicated 73F p/w multiple falls after LE buckling. Imaging negative. PT indicated to improve strength, transfers, and gait. Walker: distance < 10 Distance pt will ambulate 15 Full chart review completed Yes Hospital course Hospital course Other findings Received in supine. CGA bed mob. CGA sit-stand to the RW relying on UE's and LLE. Marching in place with partial R knee collapse, able to recover with Min A. 5 steps front-back with RWwith Min A, continued RLE weakness. Pt returned to sitting. Unable... Plan of care PT Gait training, Transfer training, Therapeutic exercise, Functional Activities, Balance training Note * Brie Leonard RN: PERFORM Event Display: Discharge/Transfer Note Hospital Authored Date: Nursing Discharge Note Entered On: 10/04/2023 17:41 EST Performed On: 10/04/2023 17:41 EST by Brie Leonard RN Nursing Discharge Note 2 Discharge Time : 10/04/2023 17:41 EST Discharge Level of Care at Discharge : Homehealth/VNA Discharge VNA/Hospice/Home Care(v001) : [facility] [phone] Patient Left Unit Via : Ambulance Patient Accompanied Off Unit with : Ambulance/Chair Van Personnel Handover Given to Transport Personnel : Yes DC Instructions Provided & Signed by Pt : Yes Patient Understands D/C Instructions : Yes Patient Instructions Discharge Signed : Yes Did Pt have Specialty Bed or Wound Vac : No Brie Leonard RN - 10/04/2023 17:41 EST * Mahesh Covarrubias MD: PERFORM, MODIFY Event Display: Discharge/Transfer Note Hospital Authored Date: Patient: ??BEN HURTADO ? Age:??73 Years?Sex:??Female?:??1950?? Patient Information Discharge Location: W3 Primary Care Physician: Erik Kim DO Admit Date/Time: 10/01/23 06:17 Discharge Disposition Discharge Disposition: Home with Home Health Discharge Diagnosis Fall (W19.XXXA) Physical deconditioning (R53.81) Fall (W19.XXXA) Generalized weakness (R53.1) ?? _ Discharge Medications Acetaminophen (acetaminophen 325 mg oral tablet)?TAKE 2 TABLETS (650 MG)ORALLY EVERY 6 HOURS NEEDED FOR PAIN, MILD (PAIN SCALE 1-3) Amlodipine (amLODIPine 2.5 mg oral tablet)?2.5?Milligram?1?tablet?By Mouth?Daily apixaban (Eliquis 5 mg oral tablet)?1?tab(s)?5?Milligram?By Mouth?2 times a day Atorvastatin (atorvastatin 40 mg oral tablet)?1?tab(s)?40?Milligram?By Mouth?Daily Clonazepam (clonazePAM 0.5 mg oral tablet)?0.5?tab(s)?0.25?Milligram?By Mouth?Daily?as needed?Anxiety Clonazepam (clonazePAM 0.5 mg oral tablet)?0.5?Milligram?By Mouth?Daily at bedtime Duloxetine (Cymbalta 60 mg oral enteric coated capsule)?See Instructions?2 capsule By Mouth Daily Durable Medical Equipment (Four-wheeled walker with seat and handbrakes)?See Instructions?Dx:Parkinsonism (G20) Durable Medical Equipment (Knee Support)?See Instructions?wear knee brace for OA both knees Gabapentin (gabapentin 300 mg oral capsule)?See Instructions?1 ??capsule in am 2 at bedtime HydrOXYzine (hydrOXYzine hydrochloride 25 mg oral tablet)?1?tab(s)?25?Milligram?By Mouth?4 times a day Lamotrigine (Lamictal 100 mg oral tablet)?3 tab?By Mouth?Daily at bedtime Loperamide (loperamide 2 mg oral capsule)?2?Milligram?1?capsule?By Mouth?Every 4 hours Meclizine (meclizine 25 mg oral tablet)?TAKE 1 TABLET BY MOUTH THREE TIMES A DAY NEEDED Metformin?500?Milligram?By Mouth?2 times a day Metoprolol (metoprolol 25 mg oral tablet)?50?Milligram?By Mouth?2 times a day Milk of Magnesia?1,200?Milligram?By Mouth?3 times a day Omeprazole (omeprazole 40 mg oral enteric coated capsule)?1?capsule?40?Milligram?By Mouth?Daily ? Medications Started None Medications Discontinued None Doses Changed None Allergies Allergies ?(Active and Proposed Allergies Only) Myrbetriq? (Severity: Unknown severity, Onset: Unknown) ?Reactions: Hallucinations ? PCP Follow-Up/Heads-Up Patient needs CBC BMP in 5 to 7 days Future Appointments Friday 11:15 AM EST ?? Where: [facility] [address] [address]- Status: Pending Friday 10:10 AM EST ?? With: Erik Kim DO Where: [facility] [address] [address]- Status: Pending Friday 3:10 PM EST ?? With: Erik Kim DO Where: [facility] [address] [address]- Status: Pending Hospital Course ??Patient is a 73-year-old female with past medical history of severe obesity, essential hypertension, hyperlipidemia, SELMA???on CPAP, bilateral upper extremity resting tremor (follows with Dr. Canalesneurology movement disorder clinic at [facility]), T2DM complicated by peripheral neuropathy, known thyroid nodules???currently pending thyroid US which will likely happen in November 2023), mixed urinary incontinence, GERD with Martinez's esophagus, chronic normocytic anemia, chronic??rhinosynovitis, atrial fibrillation???on Eliquis, major depressive disorder, borderline personality disorder, recentsuicidal attempt by overdosing on tramadol and Klonopin (was admitted to [facility] between 08/29 - 08/30/2023)???closely follows with psychiatrist Juan David Beaulieu, bilateral knee??OA with recurrent history of falls (as documented in recent PCP note from 09/29/2023). ? Fall (W19.XXXA): Physical deconditioning (R53.81): . Generalized weakness (R53.1): likely given recent hospitalization to [facility] Patient with a history of known severe osteoarthritis of both knees, she sustained a fall on??the day of presentation to ER after her knees buckled causing her to fall in the comforter.?? No evidenceof acute fracture ??? Patient's EKG and 3 troponins ruled out ACS as a potential contributing factor -UA negative, TSH normal -PRN Tylenol for osteoarthritis pain Patient is seen by PT, first recommended rehab placement??then recommended??going home??with services ? Chronic and Stable Issues: SELMA???on CPAP -Continue CPAP ?? Bilateral upper extremity resting tremor???follows with Dr. Canales of neurology movement disorder clinic at [facility] -Patient was previously started on Topamax 100 twice daily But as per patient, patient was having side effects??and neurology team advised her??to hold the medication??and follow-up with them Will hold off on Topamax ? Atrial fibrillation???Eliquis -Continue Eliquis 5 mg BID -Metoprolol 50 mg BID ?? T2DM Diabetic peripheral neuropathy Continue home metformin -Continue gabapentin 300 mg in the morning, 600 mg at nighttime ?? Essential hypertension -Resumed amlodipine 2.5 mg QD, metoprolol 50 mg BID ?? Hyperlipidemia Resume statin on discharge ?? GERD, with documented history of Martinez's esophagus Chronic normocytic anemia Review of PCP note, gastroenterology recommended capsule endoscopy that patient is currently thinking about. Hemoglobin stable -Continue PPI ? Major depressive disorder Borderline personality disorder Recent suicidal attempt by overdosing on tramadol and Klonopin???[facility] Patient is still significantly depressed,??denies any active suicidal thoughts now No need of constant laundry manager Continue home medications clonazepam 0.25 mg as needed for anxiety during the day, and 0.5 mg at nighttime for sleep ??? Resumed BuSpar 300 mg QD Continue duloxetine??DR??120 mg daily,??lamotrigine??300 mg nightly Discussed with psych fellow??Dr. Muniz??who evaluated patient, cleared patient to go home??as patient has no active suicidal thoughts ? Quality Measures: DVT prophylaxis: Eliquis 5mg BID Diet: diabetic diet Code Status: FULL CODE-discussed with patient ?? Discharge to home with home PT and VNA today ?? Objective Assessment and Plan ? Measurements?? Height: 170.18 cm (10/04/23) Weight: 127.2 kg (10/02/23) Dry Weight: 127.2 kg (10/02/23) Body Mass Index:??43.92 kg/m2??Critical (10/02/23) ? Vital Signs?? Temperature: 97.4 DegF (10/04/23 07:17:00) Temperature Route: Axillary (10/04/23 07:17:00) Pulse Rate: 71 bpm (10/04/23 07:17:00) Respiratory Rate: 18 br/min (10/04/23 09:33:00) Systolic Blood Pressure: 105 mm Hg (10/04/23 09:33:00) Diastolic Blood Pressure: 56 mm Hg (10/04/23 09:33:00) Blood pressure sites: Arm, right (10/04/23 07:17:00) Mean Arterial Pressure: 72 mm Hg (10/04/23 07:17:00) Pulse Pressure: 49 mm Hg (10/04/23 07:17:00) Oxygen Saturation: 95 % (10/04/23 07:17:00) Mode of Delivery (Oxygen): BiPAP (10/04/23 07:17:00) FiO2: 21 % (10/04/23 04:23:00) Early Warning Score: 4 (10/04/23 09:34:03) ? Intake/Output? 10/01 06:17 10/04 07:00 10/03 07:00 10/02 07:00 10/01 07:00 ?? 10/04 10:27 10/04 10:27 10/04 06:59 10/03 06:59 10/02 06:59 Intake ? 1030 ?240 ?236 ?434 ?120 Output ?650 ?0 ?0 ?400 ?250 Net Total ?380 ?240 ?236 ? 34 ? -130 ? Urine Count ?4 ?1 ?3 ?0 ?0 ? . Physical Exam GEN:??Obese elderly female. ??No acute??distress CV: Regular rate and rhythm. S1 and S2 normal . No murmurs. PULM: ??BS clear to auscultation BL BACK:??No spinal or paraspinal tenderness.?? ABD: Soft. Nontender. Non-distended. Normal bowel sounds present x4 quadrants EXT: No lower extremity edema or asymmetry. NEURO: No gross neurologic focal deficits.?? SKIN: Warm/dry/well-perfused. ??No abnormal rashes or lesions. PSYCH: Patient is calm and pleasant.?? [facility] psych Pending Results No Pending Results Follow-Up Appointments Added Follow Up ?Time Frame ?Comments Erik Kim DO Patient Instructions You are admitted for fall and physical deconditioning Continue medications as prescribed Continue PT at home Follow with your PCP in 7 days to check CBC, BMP Follow-up with psychiatrist??in the next 2 to 3 weeks Home Health Face to Face ^HomeHealthFTF Results Discharge Labs BLOOD COUNT & DIFF WBC 6.4 k/mm3 ()?? 10/02/2023 06:52 RBC 3.90 m/mm3 (Low)?? 10/02/2023 06:52 Hgb 11.5 Gm/dL (Low)?? 10/02/2023 06:52 Hct 35.9 % ()?? 10/02/2023 06:52 MCV 92.1 femtoliters ()?? 10/02/2023 06:52 MCH 29.5 pg ()?? 10/02/2023 06:52 MCHC 32.0 g/dL (Low)?? 10/02/2023 06:52 Platelet Count 242 k/mm3 ()?? 10/02/2023 06:52 RDW-SD 53.2 femtoliters (High)?? 10/02/2023 06:52 MPV 9.4 femtoliters ()?? 10/02/2023 06:52 Nucleated RBC (Automated) 0.0 #/100 WBC'S ()?? 10/02/2023 06:52 Abs. NRBC 0.0 k/mm3 ()?? 10/02/2023 06:52 Abs. Neut 4.5 k/mm3 ()?? 10/01/2023 07:44 Abs. Lymph 2.2 k/mm3 ()?? 10/01/2023 07:44 Abs. Sibley 0.6 k/mm3 ()?? 10/01/2023 07:44 Abs. Eo 0.1 k/mm3 ()?? 10/01/2023 07:44 Abs. Baso 0.0 k/mm3 ()?? 10/01/2023 07:44 Neut % 60.3 % ()?? 10/01/2023 07:44 Lymph % 29.7 % ()?? 10/01/2023 07:44 Sibley % 7.3 % ()?? 10/01/2023 07:44 Eos % 1.9 % ()?? 10/01/2023 07:44 Baso % 0.5 % ()?? 10/01/2023 07:44 Imm Gran 0.3 % ()?? 10/01/2023 07:44 Abs. Imm Gran 0.0 k/mm3 ()?? 10/01/2023 07:44 ?? CARDIAC Nt-Probnp 1090 pg/mL (High)?? 10/01/2023 07:44 High Sensitivity Troponin (HSTnT) 16 ng/L (High)?? 10/01/2023 11:49 ?? CHEM GENERAL Sodium 144 mmol/L ()?? 10/04/2023 08:41 Potassium 4.2 mmol/L ()?? 10/04/2023 08:41 Chloride 107 mmol/L ()?? 10/04/2023 08:41 Bicarbonate Level 26 mmol/L ()?? 10/04/2023 08:41 Anion Gap 11 ()?? 10/04/2023 08:41 Glucose Level 108 mg/dL (High)?? 10/04/2023 08:41 Glucose, POC 139 mg/dL (High)?? 10/04/2023 09:24 BUN 13 mg/dL ()?? 10/04/2023 08:41 Creatinine-Blood 1.0 mg/dL ()?? 10/04/2023 08:41 Estimated GFR Creatinine 63 ML/MIN/1.73 M2 ()?? 10/04/2023 08:41 Calcium 9.7 mg/dL ()?? 10/04/2023 08:41 Magnesium 2.0 mg/dL ()?? 10/02/2023 06:52 ?? ENDOCRINE/TUMOR MARKER TSH 1.73 uIU/mL ()?? 10/02/2023 06:52 ? HEME OTHER Hold Lavender Top SPECIMEN DISCARDED AFTER 24 HOURS. ()?? 10/04/2023 08:41 ? UA/URINALYSIS Appear/Color, Urine YELLOW ()?? 10/01/2023 11:06 Specific Witherbee, Urine 1.021 ()?? 10/01/2023 11:06 pH, Urine 6.0 ()?? 10/01/2023 11:06 Albumin, Urine TRACE (Abnormal)?? 10/01/2023 11:06 Glucose, Urine NEGATIVE ()?? 10/01/2023 11:06 Ketones, Urine NEGATIVE ()?? 10/01/2023 11:06 Bilirubin, Urine NEGATIVE ()?? 10/01/2023 11:06 Hemoglobin, Urine NEGATIVE ()?? 10/01/2023 11:06 Nitrite, Urine NEGATIVE ()?? 10/01/2023 11:06 Leukocyte, Urine NEGATIVE ()?? 10/01/2023 11:06 Urobilinogen NORMAL mg/dL ()?? 10/01/2023 11:06 WBC's, Urine 1 /HPF ()?? 10/01/2023 11:06 RBC's, Urine NONE SEEN /HPF ()?? 10/01/2023 11:06 Bacteria SLIGHT HPF (Abnormal)?? 10/01/2023 11:06 Calcium Oxal SLIGHT /HPF ()?? 10/01/2023 11:06 Mucus SLIGHT /LPF ()?? 10/01/2023 11:06 Hold Urine Culture Testing available 48 hours from time of collection. ()?? 10/01/2023 11:06 ? URINE OTHER Est Creatinine Clearance 49.45 mL/min ()?? 10/04/2023 09:30 ? 45_ minutes spent on discharge * Ashley CANO, Parris: PERFORM Event Display: Patient Education/Instruction Authored Date: [id number] Inpatient Adult Discharge Instructions [address] [address] Name: BEN HURTADO : 1950 Visit: 10/01/2023 06:17:00 Current Date: 10/04/2023 11:31 Account: [id number] Inpatient Adult Discharge Instructions We would like to thank you for allowing us to assist you with your healthcare needs. The following includes patient education materials and information regarding your injury/illness. Our entire staffstrives to provide an excellent experience for our patients and their families. PLEASE ENSURE YOU FOLLOW-UP PER THE INSTRUCTIONS BELOW! ?? YOUR OPINION IS IMPORTANT TO US! Please complete the survey you may receive by mail or email. Your feedback will be used to make improvements to the healthcare experiences of our patients and their families. Surveys are administered by [employer] ?? If further treatment with your primary care physician or another doctor is recommended, it is important for you to keep the appointment. Call your primary care physician or return to the Emergency Department immediately if your condition worsens, fails to improve, or new symptoms develop. If you need to find a doctor, you can call [facility] Link for a referral at [phone] or toll free at [phone] or log in to [email or web address].. ?? [facility], in keeping with [facility] guidance, no longer requires face masks for staff, patientsor visitors in most situations. Similiar to time spent indoors at other locations, there is the chance that you were exposed to repiratory viruses during your time with us (such as flu or COVID-19). If you develop symptoms concerning for a viral respiratory infection, please seek testing (and treatment if indicated) from your medical provider or home test kit. ?? You can view and manage your care through the patient portal or by using a health care buzz of your choosing. [employer] is a website that allows you to securely view your medical information including your hospital discharge summary, office visit summaries, medications and follow-up visits. You can also request appointments, renew medications, and request access to your medical information using a health care buzz of your choosing, or just ask a question. You can enroll at [email or web address] or register during your next office visit. You have been discharged from [facility], Patient Care Unit: W3. If you have any questions regarding these instructions after you leave, please call us and we will be happy to assist you. [facility] Your Care Team Attending Physician Mahesh Covarrubias MD Discharging Providers Marci SUMMERS, Mahesh Reason for Admission I'm very sad today. Reason for consult: severe depression Consult requested by: Mahesh Covarrubias MD Your Diagnosis Fall Generalized weakness Physical deconditioning Fall Tests Performed Below is a partial list of the tests performed during your hospitalization. You may have had other tests and procedures not included in this list. Please discuss all test results with your provider. Basic Metabolic Panel CBC CBC w/ Differential GLUCOSE POC High??Sensitivity??Troponin T HOLD LAVENDER TUBE Magnesium Level ProBNP Troponin T, High Sensitivity TSH with T4 Reflex (Adults Only) Urinalysis w/hold for Urine Culture CT Cervical Spine W/O Contrast CT Head/Brain W/O Contrast XR Ankle Min 3 Views Left XR Ankle Min 3 Views Right XR Hip w/Pelvis 2-3 View Right XR Knee 1 or 2 Views Left XR Knee 1 or 2 Views Right Primary Care Provider Erik Kim DO Advance Directive Health Care Proxy on File Yes - Health Care Proxy Discharge Vitals Temperature: 97.4 DegF Height: 170.18 cm Pulse Rate: 71 bpm Weight: 127.2 kg Respiratory Rate: 18 br/min Body Mass Index:??43.92 kg/m2??Critical Systolic Blood Pressure: 105 mm Hg Body surface area: 2.45 Diastolic Blood Pressure: 56 mm Hg ?? Oxygen Saturation: 95 % ?? Studies Pending All tests and labs ordered during this hospital stay have been completed unless listed below. Please discuss all pending results with your provider listed above in these instructions. ?? No incomplete studies found What to do next Instructions From Your Doctor You are admitted for fall and physical deconditioning Continue medications as prescribed Continue PT at home Follow with your PCP in 7 days to check CBC, BMP Follow-up with psychiatrist??in the next 2 to 3 weeks Discharge Orders Diet:??Regular Diet Scheduled Follow-Up Appointments Friday 11:15 AM EST ?? Where: [facility] [address] [address]- Status: Pending Friday 10:10 AM EST ?? With: Erik Kim DO Where: [facility] So [address] [address]- Status: Pending Friday 3:10 PM EST ?? With: Erik Kim DO [facility] [address] [place] [id number]- Status: Pending You Need to Schedule the Following Appointments Follow Up with??Erik Kim DO Where: ?? Discharge Medications ELYDARWINJOHANBEN :1950 Visit Date:10/01/2023 Medications: Please continue your medications until treatment is completed or stopped by your provider. Medications not listed below should be discontinued. Discuss any questions related to medications with your provider. What How Much When Why Instructions Next Dose Changed Clonazepam (clonazePAM 0.5 mg oral tablet) 0.5 tab(s) Oral Daily as needed for Anxiety As needed Changed Clonazepam (clonazePAM 0.5 mg oral tablet) 0.5 Milligram Oral Daily at Bedtime Tonight at bedtime Changed Gabapentin (gabapentin 300 mg oral capsule) See instructions 1 ??capsule in am 2 at bedtime ?? Tonight ??at bedtime Changed Lamotrigine (Lamictal 100 mg oral tablet) 3 tab Oral Daily at Bedtime Tonight at bedtime Unchanged Acetaminophen (acetaminophen 325 mg oral tablet) TAKE 2 TABLETS (650 MG)ORALLY EVERY 6 HOURS NEEDED FOR PAIN, MILD (PAIN SCALE 1-3) ?? As needed Unchanged Amlodipine (amLODIPine 2.5 mg oral tablet) 1 tab(s) Oral Daily Tomorrow morning Unchanged apixaban (Eliquis 5 mg oral tablet) 1 tab(s) Oral Twice a day Tonight at 9pm Unchanged Atorvastatin (atorvastatin 40 mg oral tablet) 1 tab(s) Oral Daily Tomorrow morning Unchanged BuPROpion (buPROPion 300 mg/ 24 hours (XL) oral tablet, extended release) Tomorrow morning Unchanged Cyanocobalamin (Vitamin B12) Tomorrow morning Unchanged Duloxetine (Cymbalta 60 mg oral enteric coated capsule) See instructions 2 capsule By Mouth Daily ?? 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 Home order Unchanged Durable Medical Equipment (Knee Support) See instructions Osteoarthritis of both knees wear knee brace for OA both knees ?? Home order Unchanged HydrOXYzine (hydrOXYzine hydrochloride 25 mg oral tablet) 1 tab(s) Oral 4 times a day Today at 3pm Unchanged Lisinopril (lisinopril 40 mg oral tablet) Tomorrow morning Unchanged Loperamide (loperamide 2 mg oral capsule) 1 capsule Oral Every 4 hours As needed Unchanged Meclizine (meclizine 25 mg oral tablet) TAKE 1 TABLET BY MOUTH THREE TIMES A DAY NEEDED ?? As needed Unchanged Metformin 500 Milligram Oral Twice a day Tonight at 9pm Unchanged Metoprolol (metoprolol 25 mg oral tablet) 50 Milligram Oral Twice a day Tonight at 9pm Unchanged Milk of Magnesia 1,200 Milligram Oral 3 times a day As needed Unchanged Omeprazole (omeprazole 40 mg oral enteric coated capsule) 1 capsule Oral Daily Tomorrow morning ?? What How Much When Comments Stop Taking Insulin Lispro Subcutaneous Infusion Stop Taking Nystatin Topical (nystatin topical 605584 u/ gm powder) APPLY 3 TIMES A DAY FOR 30 DAYS ?? Stop Taking Pantoprazole (pantoprazole 40 mg oral delayed release tablet) TAKE 1 TABLET BY MOUTH TWICE A DAY (30-60 MINUTES BEFORE FOOD) FOR 30 DAYS ?? Stop Taking Topiramate (topiramate 100 mg oral tablet) 100 Milligram Oral Twice a day Test Results Below is a partial list of the most recent Laboratory test results done prior to this discharge. You may have had other tests and procedures not included in this list. Please discuss all test resultswith your provider. Est Creatinine Clearance - 49.45 mL/min (10/04/2023) Basic Metabolic Panel (10/04/2023) ???Sodium - 144 mmol/L???Potassium - 4.2 mmol/L???Chloride - 107 mmol/L???Bicarbonate Level - 26 mmol/L???Anion Gap - 11???Glucose Level - 108 mg/dL???BUN - 13 mg/dL???Creatinine-Blood - 1.0 mg/dL???Estimated GFR Creatinine - 63 ML/MIN/1.73 M2???Calcium - 9.7 mg/dL CBC (10/02/2023) ???WBC - 6.4 k/mm3???RBC - 3.90 m/mm3???Hgb - 11.5 Gm/dL???Hct - 35.9 %???MCV - 92.1 femtoliters???MCH - 29.5 pg???MCHC - 32.0 g/dL???Platelet Count - 242 k/mm3???RDW-SD - 53.2 femtoliters???MPV - 9.4 femtoliters???Nucleated RBC (Automated) - 0.0 #/100 WBC'S???Abs. NRBC - 0.0 k/mm3 CBC w/ Differential (10/01/2023) ???WBC - 7.5 k/mm3???RBC - 3.84 m/mm3???Hgb - 11.3 Gm/dL???Hct - 34.9 %???MCV - 90.9 femtoliters???MCH - 29.4 pg???MCHC - 32.4 g/dL???Platelet Count - 265 k/mm3???RDW-SD - 53.1 femtoliters???MPV - 9.6 femtoliters???Nucleated RBC (Automated) - 0.0 #/100 WBC'S???Abs. NRBC - 0.0 k/mm3???Abs. Neut - 4.5 k/mm3???Abs. Lymph - 2.2 k/mm3???Abs. Sibley - 0.6 k/mm3???Abs. Eo - 0.1 k/mm3???Abs. Baso - 0.0 k/mm3???Neut % - 60.3 %???Lymph % - 29.7 %???Sibley % - 7.3 %???Eos % - 1.9 %???Baso % - 0.5 %???Imm Gran- 0.3 %???Abs. Imm Gran - 0.0 k/mm3 GLUCOSE POC (10/04/2023) ???Glucose, POC - 139 mg/dL High??Sensitivity??Troponin T (10/01/2023) ???High Sensitivity Troponin (HSTnT) - 16 ng/L HOLD LAVENDER TUBE (10/04/2023) ???Hold Lavender Top - SPECIMEN DISCARDED AFTER 24 HOURS. Magnesium Level (10/02/2023) ???Magnesium - 2.0 mg/dL ProBNP (10/01/2023) ???Nt-Probnp - 1090 pg/mL Troponin T, High Sensitivity (10/01/2023) ???High Sensitivity Troponin (HSTnT) - 16 ng/L TSH with T4 Reflex (Adults Only) (10/02/2023) ???TSH - 1.73 uIU/mL Urinalysis w/hold for Urine Culture (10/01/2023) ???Appear/Color, Urine - YELLOW???Specific Witherbee, Urine - 1.021???pH, Urine - 6.0???Albumin, Urine - TRACE???Glucose, Urine - NEGATIVE???Ketones, Urine - NEGATIVE???Bilirubin, Urine - NEGATIVE???Hemoglobin, Urine - NEGATIVE???Nitrite, Urine - NEGATIVE???Leukocyte, Urine - NEGATIVE???Urobilinogen - NORMAL???WBC's, Urine - 1 /HPF???RBC's, Urine - NONE SEEN???Bacteria - SLIGHT???Calcium Oxal - SLIGHT???Mucus - SLIGHT???Hold Urine Culture - Testing available 48 hours from time of collection. Allergies (NKA means No Known Allergies) Myrbetriq??(Hallucinations) Problems Active Problems??(29) AF (paroxysmal atrial fibrillation)?? Anemia?? Atrial fibrillation?? Martinez esophagus?? Borderline personality disorder?? Chronic Pain?? Chronic rhinosinusitis?? Diabetes type 2, controlled?? Essential hypertension?? Fecal incontinence?? GERD - Gastro-esophageal reflux disease?? Major depression?? Major depression in partial remission?? Medicare annual wellness visit, subsequent?? Morbid Obesity?? Muscular deconditioning?? Obstructive sleep apnea on CPAP?? Osteoarthritis of both knees?? Rectocele?? Recurrent falls?? Resting tremor?? Severe obesity?? SLEEP APNEA?? Sleep apnea?? Suicidal thoughts?? Suicide attempt?? Toxic metabolic encephalopathy?? Type 2 diabetes mellitus with peripheral neuropathy?? Urinary incontinence, mixed?? Education Materials Below is the list of Educational Leaflet Providered with your Discharge Instructions. Weakness with Uncertain Cause?? Valuables and Belongings I fully understand and agree that [facility] accepts no responsibility for all my personal property including clothing, toilet articles, radios, jewelry, dentures, hearing aids, rings, money, or any other property that is in my possession or is brought to me after admission. I understand certain valuables may be placed in a hospital safe for a short period of time. I understand that the hospital is not liable for loss or damage due to accident, fire, or other natural occurrence while said property is in the safe. I accept full responsibility for any personal property that I keep with me, and will not hold the hospital responsible in case of loss or disappearance. I acknowledge that i have been encouraged to send valuables and belongings home. ?? Review of Valuable and Belonging List: With patient Date for Pt to Sign Valuables/Belongings: 10/02/23 02:26:00 ?? Other Discharge Information ? Case Management Discharge Plan?? Discharge Plan?? Discharge Agency Information?? Discharge Level of Care at Discharge: Homehealth/VNA Name of Agency #1: [facility] Discharge VNA/Hospice/Home Care: [facility] [phone] Agency Adult [employer] #1: [phone] ?? Service Categories #1: Physical Therapy, [facility] ?? Service Comments #1: You are being discharged today with a visiting nurse. They should contact you to set up a visit, if you don't hear from them, call [phone]. ?? Pulmonary Rehab Status?? Pulmonary Rehab Discharge Status?? CPAP/BiPAP Mask Type: Full CPAP/BiPAP Mask Size: Small Respiratory Rate: 18 br/min ? Common Emergency Awareness Tips IS IT A STROKE? Act FAST and Check for these signs: FACE Does the face look uneven? ARM Does one arm drift down? SPEECH Does their speech sound strange? TIME Call at any sign of stroke ?? Heart Attack Signs Chest discomfort: Most heart attacks involve discomfort in the center of the chest and lasts more than a few minutes, or goes away and comes back. It can feel like uncomfortable pressure, squeezing, fullness or pain. Discomfort in upper body: Symptoms can include pain or discomfort in one or both arms, back, neck, jaw or stomach. Shortness of breath: With or without discomfort. Other signs: Breaking out in a cold sweat, nausea, or lightheaded. Remember, MINUTES DO MATTER. If you experience any of these heart attack warning signs, call to get immediate medical attention! ?? Smoking can increase your chances of developing chronic health problems and can cause harmful effects to other family members in your house. If you smoke, you are strongly encouraged to quit. Please call [facility] Locality Link at [phone] or [phone] ([phone]) or log in to [email or web address] for referrals to smoking cessation programs. ?? 117 Suicide & Crisis Lifeline is available 02/06 if you or someone you know needs to find a reason to keep living. By calling 046 you'll be connected to a skilled, trained counselor at a crisis center in your area. INPATIENT DISCHARGE INSTRUCTIONS SIGNATURE PAGE BEN HURTADO Location:[facility] Registration Date and Time:10/01/2023 06:17 EST Primary Care Physician: Erik Kim DO Attending Physician: Mahesh Covarrubias MD, I BEN HURTADO, have received the above patient education materials/instructions and have verbalized understanding. If ambulance or transport services are being used I further acknowledge being given a choice of service. ?? If you need to contact me, please call me at this number: . Patient/Car Changer Name: Patient/Car Changer Signature: Relationship to Patient: Witness Name/Signature: Date: * Parris Ramirez RN: PERFORM Event Display: Patient Education Leaflets Authored Date: [id number] Weakness with Uncertain Cause ?? [id number] Weakness with Uncertain Cause Based on your exam today, the exact cause of your weakness is not clear. But your weakness does notseem to be a sign of a serious illness at this time. Keep an eye on your symptoms and get medical advice as directed below. Home care ??? Rest at home today. Don't overexert yourself. ??? Take any medicine as prescribed. ??? For the??next few days, drink extra fluids unless your healthcare provider wants you to restrict fluids for other reasons. Don't skip meals. ??? Unless otherwise directed, continue to take any prescription medicines. ??? Contact your healthcare provider if you have any questions or concerns. ?? Follow-up care Follow up with your healthcare provider, or as advised. ?? When to get medical advice Call your healthcare provider right away??if any of the following occur: ??? Symptoms get worse ???Symptoms don't start getting better within 2 days ??? Fever of 100.4?? F (38?? C) or higher, or as directed by your healthcare provider ?? Call 911 Call 911 if any of the following occur: ??? Chest, arm, neck, jaw, or upper back pain ??? Trouble breathing ??? Numbness or weakness of the face, one arm, or one leg ??? Slurred speech, confusion, or??trouble speaking, walking, or seeing ??? Blood in vomit or stool (black or red color) ??? Severe headache ??? Loss of consciousness, such as fainting ?? Last Reviewed Date: 2022 ?? 1601-0428 The [employer] All rights reserved. This information is not intended as a substitute for professional medical care. Always follow your healthcare professional's instructions. ?? Patient Care team information Care Team Personnel Name: Armani Reid DO Position: [facility] Renal MD Member Role: Lifetime Consulting Physician Address: Address: [address] [place] [address] [address] [facility] [place], [place] [address] Name: Erik Kim DO Position: [facility] Physician - Primary Care Member Role: PCP Address: Address: [address] [place] [address] [place] [address]- Name: Haley BAIG Attending Position: [facility] ED Medicine Name: Frida Elise RN Position: [facility] ED RN W/OE and Tasks Member Role: Patient Care Provider Name: Dianna Claire Position: [facility] ED TA [facility] Member Role: Patient Care Provider Care Team Related Persons Name: LORENA HARRISON Address: home [address] [place] [address] Name: LAYNE TREADWELL Address: home [address] [place] [address]
--- OUTSIDE RECORDS SUMMARY | 2024-03-09 15:27 | XMS_ITS | Continuity of Care Document ---
Author Organization [facility] Eric Lynch Gene lt Address [address] [place] [address]- Care Team Providers Care Chucking Machine Operator Name Role Phone Erik Kim DO Primary Care Physician [facility] Date(s): 01/20/24 - 02/19/24 [facility] [place] Adult [address] [place] [address]- Allergies, Adverse Reactions, Alerts Substance Reaction Severity [...] virus vaccine, inactivated 08/09/17 Avery rded SARS-CoV-2(COVID-19)mRNA-LNP vac([id number]) 08/02/23 Recorded Influenza Virus Vaccine (oldterm) 1 [...] Influenza Virus Vaccine (oldterm) 08/26/11 Recorde d [id number] 12y+ bivalent booster vax 08/06/22 Recorded pneumococcal 13-valent vaccine 6 07/25/22 Recorded pneumococcal 13-valent vaccine 7 12/14/18 Recorded pneumococcal 13-valent vaccine 12/14/18 Recorded pneumococcal 13-valent vaccine 8 06/06/16 Recorded SARS-CoV-2 mRNA (memmgdd-zzjr-hpibl) vax 03/13/22 Recorded SARS-CoV-2 mRNA (joatbzq-ffag-znmqt) vax 9 08/21/21 Recorded SARS-CoV-2 mRNA (uuzawyw-qdtc-nquvi) vax 10 01/13/21 Recorded SARS-CoV-2 (COVID-19) mRNA BNT-162b2 vac 09/03/21 Recorded SARS-CoV-2 (COVID-19) Ad26 vaccine 01/13/21 Record ed zoster vaccine, inactivated 03/13/20 Recorded zoster vaccine, inactivated 12/09/19 Recorded Zoster Vaccine Live 11 12/09/19 Recorded Zoster Vaccine Live 03/13/12 Recorded tetanus/diphtheria/pertussis, acel(Tdap) 10/21/11 Recorded Pneumococcal Vaccine (oldterm) 11/08/06 Given pneumococcal 23-valent vaccine 12 11/08/06 Recorde d 1Result Comment: Unit: Unknown Route: Intramuscular Professor Of French: Sanofi Pasteur 2Result Comment: Route: Intramuscular Professor Of French: Sanofi Pasteur 3Result Comment: Unit: Unknown 4Result Comment: Unit: Unknown 5Result Comment: Unit: Unknown 6Result Comment: Unit: Unknown Route: Intramuscular Professor Of French: Pfizer 7Result Comment: Unit: Unknown Route: Intramuscular Professor Of French: Wyeth 8Result Comment: Unit: Unknown 9Result Comment: Route: Intramuscular Professor Of French: Sanofi Pasteur 10Result Comment: Unit: Unknown Route: Intramuscular Professor Of French: [id number] 11Result Comment: Route: Intramuscular Professor Of French: GlaxoSmithKline 12Result Comment: Unit: Unknown Medications acetaminophen 325 mg oral tablet TAKE 2 TABLETS (650 MG)ORALLY EVERY 6 HOURS NEEDED FOR PAIN, MILD (PAIN SCALE 1-3) Start Date: 09/22/23 Status: Ordered atorvastatin 40 mg oral tablet 1 tablet = 40 mg, By Mouth, Daily, # 90 tablet, 3 Refills, Maintenance, 10/27/23 11:06:00 EST, Tablet, [facility]/pharmacy #[id number], Partial fill upon [...] tablet, 0 Refills, Maintenance, 12/23/23 17:15:00 EST, [facility] STORE [address]23, 170.18, cm, 12/17/23 10:17:00 EST, Height, 127.2, kg, 10/02/23 3:00:00 EST, Dry Weight Start Date: 12/23/23 Status: Ordered estradiol 0.1 mg/g vaginal cream = 1 Gm, Vaginally, Daily at bedtime, # 30 Gm, 11 Refills, Maintenance, 11/17/23 9:45:00 EST, [facility]/pharmacy #[id number], Partial fill upon [...] Replace Required Details, Route to Pharmacy Electronically, [facility]/pharmacy #[id number], Partial fill upon patient reque... Start Date: 10/27/23 Status: Ordered Gemtesa 75 mg oral tablet 1 tablet = 75 mg, By Mouth, Daily, # 30 tablet, 11 Refills, Maintenance, 11/17/23 9:45:00 EST, [facility]/pharmacy #[id number], Partial fill upon [...] 04/01/24 21:50:00 EDT, 02/01/24 21:50:00 EDT, Tablet, [facility]/pharmacy #[id number], Part... Start Date: 02/01/24 Stop Date: 04/01/24 Status: Ordered metFORMIN 500 mg oral tablet 1 tablet = 500 mg, By Mouth, 2 times a day, # 180 tablet, 2 Refills, Maintenance, 12/23/23 17:13:00EST, Tablet, [facility]/pharmacy #[id number], Partial fill upon patient request if the prescription is for a schedule II opioid drug., 170.18, cm, 12/17/23 10:17:00... Start Date: 12/23/23 Status: Ordered metoprolol 50 mg oral tablet 50 mg, 1, tablet, By Mouth, 2 times a day, # 180 tablet, Refills 3, Tot. Refills 3, Maintenance, 10/27/23 11:05:00 EST, Route to Pharmacy Electronically, [facility]/pharmacy #[id number], Partial fill upon patientrequest if the prescription is for a schedule II op... Start Date: 10/27/23 Status: Ordered nystatin topical 058303 u/gm powder See Instructions, APPLY TOPICALLY 3 TIMES A DAY TO RASH, # 60 Gm, 1 Refills, Maintenance, 02/02/24 7:47:00 EDT, [facility], 30, APPLY TOPICALLY 3 TIMES A DAY TO RASH, 170, cm, 01/19/24 14:19:00 EDT, Height, 136, kg, 01/17/24 9:30:00 EST, Dry Weight Start Date: 02/02/24 Status: Ordered omeprazole 40 mg oral enteric coated capsule 1 capsule = 40 mg, By Mouth, Daily, # 90 capsule, 3 Refills, Maintenance, 12/23/23 17:13:00 EST, ECCapsule, [facility]/pharmacy #[id number], Partial fill upon patient request if the [...] years: 2; entered on: 07/03/23 Sex Female Note * Emmy Humphrey RN: PERFORM, SIGN, VERIFY Rachel Wallace RN: MODIFY, SIGN Rachel Wallace RN: SIGN Erik Kim DO: SIGN Event Display: Case Management Discharge Plan Authored Date: [id number] Patient: BEN GARIBAY Age: 73 years Sex: Female : 1950 Associated Diagnoses: None Author: Emmy Humphrey RN Care Management Discharge Call Note Admit date 01/17/2024 Discharge date 01/19/2024 Date of contact 01/20/2024 (attempted call - left voicemail 01/21/24) Diagnosis Fall If patient went for emergency services was this patient referred? From: Emmy Humphrey RN To: Rachel Wallace RN; Lou Huerta; Sent: 01/20/2024 16:46:59 EDT ! Subject: 2nd TCM call---FW: Kim/IPF/Clinical Call Caller Name: BEN GARIBAY; Caller Number: H , C Called pt for TCM No answer. LVMTCB. Lou and Rachel kindly f/u with pt. needs IPF and TCM. Jordyn out . I am also off on . Thank you both. Patient Care team information Care Team Personnel Name: Armani Reid DO Position: [facility] Renal MD Member Role: Lifetime Consulting Physician Address: Address: [address] [place] [address] [address] [facility] [place], [place] [address] Name: Maynor Lyons RN Position: S RN Member Role: Primary Care Nurse Name: Erik Kim DO Position: [facility] Physician - Primary Care Member Role: PCP Address: Address: [address] [place] [id number]- [place] Name: Dianna Frost RN Position: [facility] RN Member Role: Primary Care Nurse Care Team Related Persons Name: LORENA HARRISON Address: home [address] [place] [address] Name: LAYNE TREADWELL Address: home [address] [place] [address]
--- OUTSIDE RECORDS SUMMARY | 2024-03-09 15:28 | XMS_ITS | Continuity of Care Document ---
Author Organization [facility] Eric Lynch Gene lt Address [address] [place] [address]- Care Team Providers Care Director Of Recruitment And Admissions Name Role Phone Erik Kim DO Primary Care Physician [facility] Date(s): 10/24/23 - 11/23/23 [facility] [place] Adult [address] [place] [address]- Allergies, Adverse Reactions, Alerts Substance Reaction Severity [...] virus vaccine, inactivated 08/09/17 Avery rded SARS-CoV-2(COVID-19)mRNA-LNP vac([id number]) 08/02/23 Recorded Influenza Virus Vaccine (oldterm) 1 08/06/22 Recor ded Influenza Virus Vaccine (oldterm) 08/09/20 Recorde d Influenza Virus Vaccine (oldterm) 07/05/19 Recorde d Influenza Virus Vaccine (oldterm) 2 08/08/18 Recor ded Influenza Virus Vaccine (oldterm) 3 08/02/16 Recor ded Influenza Virus Vaccine (oldterm) 4 08/07/15 Recor ded Influenza Virus Vaccine (oldterm) 07/22/14 Recorde d Influenza Virus Vaccine (oldterm) 10/21/13 Recorde d Influenza Virus Vaccine (oldterm) 5 08/14/12 Recor ded Influenza Virus Vaccine (oldterm) 08/26/11 Recorde d PEOG-EyS-0lWYN 12y+ bivalent booster vax 08/06/22 Recorded pneumococcal 13-valent vaccine 6 07/25/22 Recorded pneumococcal 13-valent vaccine 7 12/14/18 Recorded pneumococcal 13-valent vaccine 12/14/18 Recorded pneumococcal 13-valent vaccine 8 06/06/16 Recorded SARS-CoV-2 mRNA (szbkvgp-tdez-twuuo) vax 03/13/22 Recorded SARS-CoV-2 mRNA (agypgez-seoz-mwxax) vax 9 08/21/21 Recorded SARS-CoV-2 mRNA (dngbvqu-rxbu-oknft) vax 10 01/13/21 Recorded SARS-CoV-2 (COVID-19) mRNA BNT-162b2 vac 09/03/21 Recorded SARS-CoV-2 (COVID-19) Ad26 vaccine 01/13/21 Record ed zoster vaccine, inactivated 03/13/20 Recorded zoster vaccine, inactivated 12/09/19 Recorded Zoster Vaccine Live 11 12/09/19 Recorded Zoster Vaccine Live 03/13/12 Recorded tetanus/diphtheria/pertussis, acel(Tdap) 10/21/11 Recorded Pneumococcal Vaccine (oldterm) 11/08/06 Given pneumococcal 23-valent vaccine 12 11/08/06 Recorde d 1Result Comment: Unit: Unknown Route: Intramuscular Jute Bag Clipper: Sanofi Pasteur 2Result Comment: Route: Intramuscular Jute Bag Clipper: Sanofi Pasteur 3Result Comment: Unit: Unknown 4Result Comment: Unit: Unknown 5Result Comment: Unit: Unknown 6Result Comment: Unit: Unknown Route: Intramuscular Jute Bag Clipper: Pfizer 7Result Comment: Unit: Unknown Route: Intramuscular Jute Bag Clipper: WyLiquid Spins 8Result Comment: Unit: Unknown 9Result Comment: Route: Intramuscular Jute Bag Clipper: Sanofi Pasteur 10Result Comment: Unit: Unknown Route: Intramuscular Jute Bag Clipper: Merge Social 11Result Comment: Route: Intramuscular Jute Bag Clipper: GlaxoSmithKline 12Result Comment: Unit: Unknown Medications acetaminophen 325 mg oral tablet TAKE 2 TABLETS (650 MG)ORALLY EVERY 6 HOURS NEEDED FOR PAIN, MILD (PAIN SCALE 1-3) Start Date: 09/22/23 Status: Ordered amLODIPine 2.5 mg oral tablet 1 tablet, By Mouth, Daily, # 90 tablet, 0 Refills, Maintenance, 11/12/23 12:11:00 EST, [facility] [address], 170.18, cm, 10/30/23 14:25:00 EST, Height, 127.2, kg, 10/02/23 3:00:00 EST, Dry Weight Start Date: 11/12/23 Status: Ordered atorvastatin 40 mg oral tablet 1 tablet = 40 mg, By Mouth, Daily, # 90 tablet, 3 Refills, Maintenance, 10/27/23 11:06:00 EST, Tablet, [facility]/pharmacy #[id number], Partial fill upon patient request [...] Gm, 11 Refills, Maintenance, 11/17/23 9:45:00 EST, [facility]/pharmacy #[id number], Partial fill upon patient request [...] Replace Required Details, Route to Pharmacy Electronically, [facility]/pharmacy #[id number], Partial fill upon patient reque... Start Date: 10/27/23 Status: Ordered Gemtesa 75 mg oral tablet 1 tablet = 75 mg, By Mouth, Daily, # 30 tablet, 11 Refills, Maintenance, 11/17/23 9:45:00 EST, [facility]/pharmacy #[id number], Partial fill upon patient request [...] 10/27/23 11:05:00 EST, Route to Pharmacy Electronically, [facility]/pharmacy #1300, Partial fill upon patientrequest if the prescription is for a schedule II op... Start Date: 10/27/23 Status: Ordered Milk of Magnesia = 1,200 mg, By Mouth, 3 times a day, 0 Refills, Maintenance, 09/22/23 15:30:00 EST, Partial fill upon patient request if the prescription is for a schedule II opioid drug. Start Date: 09/22/23 Status: Ordered nystatin topical 026385 u/gm powder 1 application, Topically, 3 times [...] Team Personnel Name: Armani Reid DO Position: [facility] Renal MD Member Role: Lifetime Consulting Physician Address: Address: [address] [facility] [address] [facility] [place] [address]- Name: Erik Kim DO Position: [facility] Physician - Primary Care Member Role: PCP Address: Address: [address], [place] [address] Care Team Related Persons Name: LORENA HARRISON Address: [address] [place] [address] Name: LAYNE TREADWELL Address: home [address] [place] [address]
--- OUTSIDE RECORDS SUMMARY | 2024-03-09 15:28 | XMS_ITS | Continuity of Care Document ---
Author Organization [facility] Eric Lynch Gene Address [address] [place] [address]- Care Team Providers Care Coffee Host Name Role Phone Erik Kim DO Primary Care Physician Encounter [facility] Date(s): 02/11/24 - 02/18/24 [facility] Eric Velazquezley Adult [address] [place] [address]- Encounter Diagnosis Memory change(Discharge Diagnosis) - 02/10/24 AF (paroxysmal atrial fibrillation)(Discharge Diagnosis) - 02/10/24 Borderline personality disorder(Discharge Diagnosis) - 02/10/24 Diabetes type 2, controlled(Discharge Diagnosis) - 02/10/24 Essential hypertension(Discharge Diagnosis) - 02/10/24 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) - 02/10/24 Type 2 diabetes mellitus with peripheral neuropathy(Discharge Diagnosis) - 02/10/24 Hallucination(Discharge Diagnosis) - 02/11/24 Attending Physician: Erik Kim DO Allergies, Adverse [...] virus vaccine, inactivated 08/09/17 Avery rded SARS-CoV-2(COVID-19)mRNA-LNP vac([id number]) 08/02/23 Recorded Influenza Virus Vaccine (oldterm) 1 [...] Influenza Virus Vaccine (oldterm) 08/26/11 Recorde d [id number] 12y+ bivalent booster vax 08/06/22 Recorded pneumococcal 13-valent vaccine 6 07/25/22 Recorded pneumococcal 13-valent vaccine 7 12/14/18 Recorded pneumococcal 13-valent vaccine 12/14/18 Recorded pneumococcal 13-valent vaccine 8 06/06/16 Recorded SARS-CoV-2 mRNA (irxhvuj-miwl-rtclg) vax 03/13/22 Recorded SARS-CoV-2 mRNA (znfqbfq-ybie-sbnrd) vax 9 08/21/21 Recorded SARS-CoV-2 mRNA (agujvup-tovj-hewgl) vax 10 01/13/21 Recorded SARS-CoV-2 (COVID-19) mRNA BNT-162b2 vac 09/03/21 Recorded SARS-CoV-2 (COVID-19) Ad26 vaccine 01/13/21 Record ed zoster vaccine, inactivated 03/13/20 Recorded zoster vaccine, inactivated 12/09/19 Recorded Zoster Vaccine Live 11 12/09/19 Recorded Zoster Vaccine Live 03/13/12 Recorded tetanus/diphtheria/pertussis, acel(Tdap) 10/21/11 Recorded Pneumococcal Vaccine (oldterm) 11/08/06 Given pneumococcal 23-valent vaccine 12 11/08/06 Recorde d 1Result Comment: Unit: Unknown Route: Intramuscular Rail Washer: Sanofi Pasteur 2Result Comment: Route: Intramuscular Rail Washer: Sanofi Pasteur 3Result Comment: Unit: Unknown 4Result Comment: Unit: Unknown 5Result Comment: Unit: Unknown 6Result Comment: Unit: Unknown Route: Intramuscular Rail Washer: [employer] 7Result Comment: Unit: Unknown Route: Intramuscular Rail Washer: Wycathi 8Result Comment: Unit: Unknown 9Result Comment: Route: Intramuscular Rail Washer: SanMediaPhy Pasteur 10Result Comment: Unit: Unknown Route: Intramuscular Rail Washer: Suleiman 11Result Comment: Route: Intramuscular Rail Washer: GlaxClear Advantage CollarKline 12Result Comment: Unit: Unknown Medications acetaminophen 325 mg oral tablet TAKE 2 TABLETS (650 MG)ORALLY EVERY 6 HOURS NEEDED FOR PAIN, MILD (PAIN SCALE 1-3) Start Date: 09/22/23 Status: Ordered atorvastatin 40 mg oral tablet 1 tablet = 40 mg, By Mouth, Daily, # 90 tablet, 3 Refills, Maintenance, 10/27/23 11:06:00 EST, Tablet, [facility]/pharmacy #[id number], Partial fill upon patient request [...] 0 Refills, Maintenance, 12/23/23 17:15:00 EST, [facility] STORE [address]58, 170.18, cm, 12/17/23 10:17:00 EST, Height, 127.2, kg, 10/02/23 3:00:00 EST, Dry Weight Start Date: 12/23/23 Status: Ordered estradiol 0.1 mg/g vaginal cream = 1 Gm, Vaginally, Daily at bedtime, # 30 Gm, 11 Refills, Maintenance, 11/17/23 9:45:00 EST, [facility] [...] Required Details, Route to Pharmacy Electronically, [facility]/pharmacy #[id number], Partial fill upon patient reque... Start Date: 10/27/23 Status: Ordered Gemtesa 75 mg oral tablet 1 tablet = 75 mg, By Mouth, Daily, # 30 tablet, 11 Refills, Maintenance, 11/17/23 9:45:00 EST, [facility]/pharmacy #[id number], Partial fill upon patient request [...] 21:50:00 EDT, 02/01/24 21:50:00 EDT, Tablet, [facility]/pharmacy #[id number], Part... Start Date: 02/01/24 Stop Date: 04/01/24 Status: Ordered metFORMIN 500 mg oral tablet 1 tablet = 500 mg, By Mouth, 2 times a day, # 180 tablet, 2 Refills, Maintenance, 12/23/23 17:13:00EST, Tablet, [facility]/pharmacy #[id number], Partial fill upon patient request if the prescription is for a schedule II opioid drug., 170.18, cm, 12/17/23 10:17:00... Start Date: 12/23/23 Status: Ordered metoprolol 50 mg oral tablet 50 mg, 1, tablet, By Mouth, 2 times a day, # 180 tablet, Refills 3, Tot. Refills 3, Maintenance, 10/27/23 11:05:00 EST, [id number] fill upon patientrequest if the prescription is for a schedule II op... Start Date: 10/27/23 Status: Ordered nystatin topical 603653 u/gm powder See Instructions, APPLY TOPICALLY 3 TIMES A DAY TO RASH, # 60 Gm, 1 Refills, Maintenance, 02/02/24 7:47:00 EDT, [facility] STORE [address]236, 30, APPLY TOPICALLY 3 TIMES A DAY TO RASH, 170, cm, 01/19/24 14:19:00 EDT, Height, 136, kg, 01/17/24 9:30:00 EST, Dry Weight Start Date: 02/02/24 Status: Ordered omeprazole 40 mg oral enteric coated capsule 1 capsule = 40 mg, By Mouth, Daily, # 90 capsule, 3 Refills, Maintenance, 12/23/23 17:13:00 EST, ECCapsule, [facility]/pharmacy #[id number], Partial fill upon patient request [...] Effective Dates Health Status Clinical Service Informant Memory change Discharge Diagnosis 02/10/24 AF (paroxysmal atrial fibrillation) Discharge Diagnosis 02/10/24 Borderline personality disorder Discharge Diagnosis 02/10/24 Diabetes type 2, controlled Discharge Diagnosis 02/10/24 Essential hypertension Discharge Diagnosis 02/10/24 Major depression in partial remission Discharge Diagnosis 02/10/24 Type 2 diabetes mellitus with peripheral neuropathy Discharge Diagnosis 02/10/24 Hallucination Discharge Diagnosis 02/11/24 Vital Signs Most recent to oldest [Reference Range]: 1 Height 170 cm (02/11/24 1:35 PM) Weight 117.4 kg (02/11/24 1:35 PM) Oxygen Saturation [94-100 %] 98 % (02/11/24 1:35 PM) Pulse Rate [55-90 bpm] 94 bpm *H* (02/11/24 1:35 PM) Body Mass Index [18.5-24.99 kg/m2] 40.62 kg/m2 *>HHI* (02/11/24 1:35 PM) Blood Pressure [90-138/55-84 mm Hg] 102/ 54mm Hg (02/11/24 1:35 PM) Respiratory Rate [16-30 br/min] 20 br/mi n (02/11/24 1:35 PM) Temperature [96.8-100.4 DegF] 98.2 DegF (02/11/24 1:35 PM) Mode of Delivery (Oxygen) Room air (02/11/24 1:35 PM) Blood pressure sites Arm, left (02/11/24 1:35 PM) Temperature Route Oral (02/11/24 1:35 PM) Weight Obtained Via Standing scale (02/11/24 1:35 PM) Social History Social History Type Response Smoking Status Former smoker, quit more than 30 days ago; Other: quit 1973 6 yrs toal 11/13 6; Number of years: 6; Total pack years: 2; entered on: 07/03/23 Sex Female Note * Amita Killian: PERFORM, SIGN, VERIFY Event Display: Patient Education/Instruction Authored Date: [id number] [facility] *BMP So [facility] Ram Clinical Summary Name BEN GARIBAY Age 73 Years 1950 PCP Erik Kim DO PCP Visit Date 02/11/2024 13:26:00 Patient Instructions BP at goal continue current plan check BP at home and bring to next visit Your diabetes continue current medications follow-up with your psychiatrist as planned seek care if symptoms worsen or change?? keep appt with??March 17 2:50 Additional Instructions: Scheduled Appointments?? Future Appointments ?[facility] ?[address]??[place],??[place],??[address] ?Phone:??[phone]?Fax:??-- ?Appt. Date:??02/24/2024?1:30 PM ?Scheduled Provider:??SHALINI Reyna 1 ?*B[facility]??[facility] ?[address] ?Phone:??[phone]?Fax:??-- ?Appt. Date:??03/17/2024?2:50 PM ?Scheduled Provider:??Kim DO, Erik Follow-Up Instructions ?? Diagnosis Paroxysmal atrial fibrillation; Hallucinations, unspecified; Other amnesia; Type 2 diabetes mellitus with diabetic polyneuropathy; Type 2 diabetes mellitus without complications; Major depressive disorder, single episode, in partial remission; Borderline personality disorder; Essential (primary) hypertension Medications: Please continue your medications until treatment is completed or stopped by your provider. Discuss any questions related to medications with your provider. Medications to Continue with No Changes These medications were not printed or sent to your pharmacy Acetaminophen (acetaminophen 325 mg oral tablet) TAKE 2 TABLETS (650 MG)ORALLY EVERY 6 HOURS NEEDED FOR PAIN, MILD (PAIN SCALE 1-3). Next Dose: apixaban (Eliquis 5 mg oral tablet) TAKE 1 TABLET BY MOUTH TWICE A DAY. Refills: 0. Next Dose: Atorvastatin (atorvastatin 40 mg oral tablet) 1 tab(s) Oral Daily. Refills: 3. Next Dose: BuPROpion (buPROPion 300 mg/24 hours (XL) oral tablet, extended release) 300 Milligram Oral Daily. Next Dose: Duloxetine (Cymbalta 60 mg oral [...] tab Oral Daily at Bedtime. Next Dose: Meclizine (meclizine 25 mg oral tablet) 1 tab(s) Oral 3 times a day as needed as needed for nausea/vomiting for 30 Days. TAKE 1 TABLET BY MOUTH THREE TIMES A DAY NEEDED. Refills: 1. Next Dose: Metformin (metFORMIN 500 mg oral tablet) 1 tab(s) Oral twice a day. Refills: 2. Next Dose: Metoprolol (metoprolol 50 mg oral tablet) 1 tab(s) Oral twice a day. Refills: 3. Next Dose: Nystatin Topical (nystatin topical 533523 u/gm powder) APPLY TOPICALLY 3 TIMES A DAY TO RASH. Refills: 1. Next Dose: Omeprazole (omeprazole 40 mg oral enteric coated capsule) 1 capsule Oral Daily. Refills: 3. Next Dose: vibegron (Gemtesa 75 mg oral tablet) 1 tab(s) Oral Daily. Refills: 11. Next Dose: Allergy Info:?? Myrbetriq Medications Given This Visit Future Orders ?No future orders Future Orders ?CBC w/ Differential? Order Date:02/11/24?- Complete within?Comprehensive Metabolic Panel? Order Date:02/11/24?- Complete within?Urine Culture? Order Date:02/11/24?- Complete within?Complete Urinalysis? Order Date:02/11/24?- Complete within? Vital Signs Height 170 cm Weight 117.4 kg BMI 40.62 kg/m2 Blood Pressure 102 mm Hg/54 mm Hg Temperature 98.2 DegF Pulse Rate 94 bpm Respiratory Rate 20 br/min 02 Sat Mode of Delivery 98 %/Room air You can now view a summary of your hospital visit from the comfort of your home through a free online portal called [employer]. [employer] is a website that allows you to securely view your medical information including discharge summary, medications and follow-up visits. ??You can alsosend a secure electronic message to your doctor???s office to request appointments, renew medications or just ask a question. You can enroll at [email or web address] or register during your next office visit. [...] primary care provider, you may find a [facility] provider by calling [facility] Link at [phone]. [facility], in keeping with [facility] guidance, no longer requires face masks [...] Member Role: Lifetime Consulting Physician Address: Address: [address] [place] [address] [address] [facility] [place] [address]- Name: Maynor Lyons RN Position: S RN Member Role: Primary Care Nurse Name: Erik Kim DO Position: S Physician - Primary Care Member Role: PCP Address: Address: [address] [place] [address]- Name: Dianna Frost RN Position: S RN Member Role: Primary Care Nurse Care Team Related Persons Name: LORENA HARRISON Address: home [address] [place] [address] Name: LAYNE TREADWELL Address: home [address] [place] [address]
--- OUTSIDE RECORDS SUMMARY | 2024-03-09 15:28 | XMS_ITS | Continuity of Care Document ---
Author Organization [facility] Address [address], [address], [address] [place] [phone]- Care Team Providers Care Rhic Systems Safety Engineer Name Role Phone Erik Kim DO Primary Care Physician [facility] Date[facility]): 07[facility]/23 - 11/09/23 [facility] [address], [address], [address] [place] [id number]- Attending Physician: Erik Canales MD Admitting Physician: Erik Canales MD Allergies, Adverse Reactions, Alerts Substance Reaction Severity Status Myrbetrfloresita Hallucinations Active Immunizations Given and Recorded Vaccine [...] virus vaccine, inactivated 08/09/17 Avery rded SARS-CoV-2(COVID-19)mRNA-LNP vac([id number]) 08/02/23 Recorded Influenza Virus Vaccine (oldterm) 1 [...] Influenza Virus Vaccine (oldterm) 08/26/11 Recorde d [id number] 12y+ bivalent booster vax 08/06/22 Recorded pneumococcal 13-valent vaccine 6 07/25/22 Recorded pneumococcal 13-valent vaccine 7 12/14/18 Recorded pneumococcal 13-valent vaccine 12/14/18 Recorded pneumococcal 13-valent vaccine 8 06/06/16 Recorded SARS-CoV-2 mRNA (ftesulz-sibf-iclhg) vax 03/13/22 Recorded SARS-CoV-2 mRNA (xkdimlc-nagr-pylga) vax 9 08/21/21 Recorded SARS-CoV-2 mRNA (yotixpj-ituj-wzuyr) vax 10 01/13/21 Recorded SARS-CoV-2 (COVID-19) mRNA BNT-162b2 vac 09/03/21 Recorded SARS-CoV-2 (COVID-19) Ad26 vaccine 01/13/21 Record ed zoster vaccine, inactivated 03/13/20 Recorded zoster vaccine, inactivated 12/09/19 Recorded Zoster Vaccine Live 11 12/09/19 Recorded Zoster Vaccine Live 03/13/12 Recorded tetanus/diphtheria/pertussis, acel(Tdap) 10/21/11 Recorded Pneumococcal Vaccine (oldterm) 11/08/06 Given pneumococcal 23-valent vaccine 12 11/08/06 Recorde d 1Result Comment: Unit: Unknown Route: Intramuscular Hat Mender: Sanofi Pasteur 2Result Comment: Route: Intramuscular Hat Mender: Sanofi Pasteur 3Result Comment: Unit: Unknown 4Result Comment: Unit: Unknown 5Result Comment: Unit: Unknown 6Result Comment: Unit: Unknown Route: Intramuscular Hat Mender: Pfizer 7Result Comment: Unit: Unknown Route: Intramuscular Hat Mender: Wyeth 8Result Comment: Unit: Unknown 9Result Comment: Route: Intramuscular Hat Mender: Sanofi Pasteur 10Result Comment: Unit: Unknown Route: Intramuscular Hat Mender: Kamida 11Result Comment: Route: Intramuscular Hat Mender: GlaxoSmithKline 12Result Comment: Unit: Unknown Medications acetaminophen [...] Maintenance, 10/27/23 11:06:00 EST, Tablet, [facility]/pharmacy #[id number], Partial fill upon patient [...] Details, Route to Pharmacy Electronically, [facility]/pharmacy #[id number], Partial fill upon patient [...] 17:37:00 EST, 11/06/23 17:37:00 EST, Tablet, [facility]/pharmacy #[id number], Partial fill upon patient [...] EST, Route to Pharmacy Electronically, [facility]/pharmacy #[id number], Partial fill upon patientrequest if the prescription is for a schedule II op... Start Date: 10/27/23 Status: Ordered Milk of Magnesia = 1,200 mg, By Mouth, 3 times a day, 0 Refills, Maintenance, 09/22/23 15:30:00 EST, Partial fill upon patient request if the prescription is for a schedule II opioid drug. Start Date: 09/22/23 Status: Ordered nystatin topical [id number] u/gm powder 1 application, Topically, 3 times a day, to rash, # 60 Gm, 0 Refills, Maintenance, 10/27/23 11:02:00 EST, Powder, [facility]/pharmacy #[id number], Partial fill upon patient [...] Team Personnel Name: Armani Reid DO Position: [facility] Renal MD Member Role: Lifetime Consulting Physician Address: Address: [address] [place] [address] [address] [facility] [place] [address]- Name: Erik Kim DO Position: [facility] Physician - Primary Care Member Role: PCP Address: Address: [address] [place] [address] [place] [address]- Care Team Related Persons Name: LORENA HARRISON Address: home [address] [place] [address] Name: LAYNE TREADWELL Address: home [address] [place] [address]
--- OUTSIDE RECORDS SUMMARY | 2024-03-09 15:28 | XMS_ITS | Continuity of Care Document ---
Author Organization [facility] Eric Lynch Gene lt Address [address] [place] [address]- Care Team Providers Care Chief Executive Name Role Phone Erik Kim DO Primary Care Physician [facility]): 10/07/23 - 11/20/23 [facility] Eric Velazquezley Adult [address] [place] [address]- Attending Physician: Erik Kim DO Allergies, Adverse [...] virus vaccine, inactivated 08/09/17 Avery rded SARS-CoV-2(COVID-19)mRNA-LNP vac([id number]) 08/02/23 Recorded Influenza Virus Vaccine (oldterm) 1 [...] Influenza Virus Vaccine (oldterm) 08/26/11 Recorde d [id number] 12y+ bivalent booster vax 08/06/22 Recorded pneumococcal 13-valent vaccine 6 07/25/22 Recorded pneumococcal 13-valent vaccine 7 12/14/18 Recorded pneumococcal 13-valent vaccine 12/14/18 Recorded pneumococcal 13-valent vaccine 8 06/06/16 Recorded SARS-CoV-2 mRNA (xlqmmsq-arwi-gnxuw) vax 03/13/22 Recorded SARS-CoV-2 mRNA (nxcmkrp-qpdg-rwlml) vax 9 08/21/21 Recorded SARS-CoV-2 mRNA (fqelpqi-hqzm-qabkk) vax 10 01/13/21 Recorded SARS-CoV-2 (COVID-19) mRNA BNT-162b2 vac 09/03/21 Recorded SARS-CoV-2 (COVID-19) Ad26 vaccine 01/13/21 Record ed zoster vaccine, inactivated 03/13/20 Recorded zoster vaccine, inactivated 12/09/19 Recorded Zoster Vaccine Live 11 12/09/19 Recorded Zoster Vaccine Live 03/13/12 Recorded tetanus/diphtheria/pertussis, acel(Tdap) 10/21/11 Recorded Pneumococcal Vaccine (oldterm) 11/08/06 Given pneumococcal 23-valent vaccine 12 11/08/06 Recorde d 1Result Comment: Unit: Unknown Route: Intramuscular Reading Tutor: Sanofi Pasteur 2Result Comment: Route: Intramuscular Reading Tutor: Sanofi Pasteur 3Result Comment: Unit: Unknown 4Result Comment: Unit: Unknown 5Result Comment: Unit: Unknown 6Result Comment: Unit: Unknown Route: Intramuscular Reading Tutor: Pfizer 7Result Comment: Unit: Unknown Route: Intramuscular Reading Tutor: Wyeth 8Result Comment: Unit: Unknown 9Result Comment: Route: Intramuscular Reading Tutor: Sanofi Pasteur 10Result Comment: Unit: Unknown Route: Intramuscular Reading Tutor: Suleiman 11Result Comment: Route: Intramuscular Reading Tutor: GlaxoSmithKline 12Result Comment: Unit: Unknown Medications acetaminophen 325 mg oral tablet TAKE 2 TABLETS (650 MG)ORALLY EVERY 6 HOURS NEEDED FOR PAIN, MILD (PAIN SCALE 1-3) Start Date: 09/22/23 Status: Ordered amLODIPine 2.5 mg oral tablet 1 tablet, By Mouth, Daily, # 90 tablet, 0 Refills, Maintenance, 11/12/23 12:11:00 EST, [id number], 170.18, cm, 10/30/23 14:25:00 EST, Height, 127.2, kg, 10/02/23 3:00:00 EST, Dry Weight Start Date: 11/12/23 Status: Ordered atorvastatin 40 mg oral tablet 1 tablet = 40 mg, By Mouth, Daily, # 90 tablet, 3 Refills, Maintenance, 10/27/23 11:06:00 EST, Tablet, [facility]/pharmacy #[id number], Partial fill upon patient request if [...] Gm, 11 Refills, Maintenance, 11/17/23 9:45:00 EST, [facility]/pharmacy #[id number], Partial fill upon patient request if [...] Replace Required Details, Route to Pharmacy Electronically, [facility]/pharmacy #[id number], Partial fill upon patient reque... Start Date: 10/27/23 Status: Ordered Gemtesa 75 mg oral tablet 1 tablet = 75 mg, By Mouth, Daily, # 30 tablet, 11 Refills, Maintenance, 11/17/23 9:45:00 EST, [facility]/pharmacy #[id number], Partial fill upon patient request if [...] 10/27/23 11:05:00 EST, Route to Pharmacy Electronically, [facility]/pharmacy #[id number], Partial fill upon patientrequest if the prescription is for a schedule II op... Start Date: 10/27/23 Status: Ordered Milk of Magnesia = 1,200 mg, By Mouth, 3 times a day, 0 Refills, Maintenance, 09/22/23 15:30:00 EST, Partial fill upon patient request if the prescription is for a schedule II opioid drug. Start Date: 09/22/23 Status: Ordered nystatin topical [id number] u/gm powder 1 application, Topically, 3 times [...] Team Personnel Name: Armani Reid DO Position: [facility] Renal MD Member Role: Lifetime Consulting Physician Address: Address: [address] [place] [address] [address] [facility] [place] [address]- Name: Erik Kim DO Position: [facility] Physician - Primary Care Member Role: PCP Address: Address: [address] [place] [phone]- Care Team Related Persons Name: LORENA HARRISON Address: home [address] [place] [address] Name: LAYNE TREADWELL Address: home [address] [place] [address]
--- OUTSIDE RECORDS SUMMARY | 2024-03-09 15:28 | XMS_ITS | Continuity of Care Document ---
Author Organization [facility] Eric Lynch Gene lt Address [address] [place] [address]- Care Team Providers Care Cinnamon Grinder Name Role Phone Erik Kim DO Primary Care Physician [facility]): 01/15/24 - 02/14/24 [facility] Adult [address] [place] [address]- Allergies, Adverse Reactions, Alerts Substance Reaction Severity [...] virus vaccine, inactivated 08/09/17 Avery rded SARS-CoV-2(COVID-19)mRNA-LNP vac([id number]) 08/02/23 Recorded Influenza Virus Vaccine (oldterm) 1 [...] Influenza Virus Vaccine (oldterm) 08/26/11 Recorde d [id number] 12y+ bivalent booster vax 08/06/22 Recorded pneumococcal 13-valent vaccine 6 07/25/22 Recorded pneumococcal 13-valent vaccine 7 12/14/18 Recorded pneumococcal 13-valent vaccine 12/14/18 Recorded pneumococcal 13-valent vaccine 8 06/06/16 Recorded SARS-CoV-2 mRNA (xznsgoc-dhfd-wneux) vax 03/13/22 Recorded SARS-CoV-2 mRNA (tfcpebn-puxt-gwcer) vax 9 08/21/21 Recorded SARS-CoV-2 mRNA (uglsuzz-errg-vuvhx) vax 10 01/13/21 Recorded SARS-CoV-2 (COVID-19) mRNA BNT-162b2 vac 09/03/21 Recorded SARS-CoV-2 (COVID-19) Ad26 vaccine 01/13/21 Record ed zoster vaccine, inactivated 03/13/20 Recorded zoster vaccine, inactivated 12/09/19 Recorded Zoster Vaccine Live 11 12/09/19 Recorded Zoster Vaccine Live 03/13/12 Recorded tetanus/diphtheria/pertussis, acel(Tdap) 10/21/11 Recorded Pneumococcal Vaccine (oldterm) 11/08/06 Given pneumococcal 23-valent vaccine 12 11/08/06 Recorde d 1Result Comment: Unit: Unknown Route: Intramuscular Software Applications Developer: Sanofi Pasteur 2Result Comment: Route: Intramuscular Software Applications Developer: Sanofi Pasteur 3Result Comment: Unit: Unknown 4Result Comment: Unit: Unknown 5Result Comment: Unit: Unknown 6Result Comment: Unit: Unknown Route: Intramuscular Software Applications Developer: Pfizer 7Result Comment: Unit: Unknown Route: Intramuscular Software Applications Developer: Wyeth 8Result Comment: Unit: Unknown 9Result Comment: Route: Intramuscular Software Applications Developer: Sanofi Pasteur 10Result Comment: Unit: Unknown Route: Intramuscular Software Applications Developer: [employer] 11Result Comment: Route: Intramuscular Software Applications Developer: GlaxoSmithKline 12Result Comment: Unit: Unknown Medications acetaminophen [...] tablet, 0 Refills, Maintenance, 12/23/23 17:15:00 EST, [facility], 170.18, cm, 12/17/23 10:17:00 EST, Height, 127.2, [...] 04/01/24 21:50:00 EDT, 02/01/24 21:50:00 EDT, Tablet, [facility]/pharmacy #[id number], Part... Start Date: 02/01/24 Stop Date: 04/01/24 Status: Ordered metFORMIN 500 mg oral tablet 1 tablet = 500 mg, By Mouth, 2 times a day, # 180 tablet, 2 Refills, Maintenance, 12/23/23 17:13:00EST, Tablet, [facility]/pharmacy #1991, Partial fill upon patient request if the prescription is for a schedule II opioid drug., 170.18, cm, 12/17/23 10:17:00... Start Date: 12/23/23 Status: Ordered metoprolol 50 mg oral tablet 50 mg, 1, tablet, By Mouth, 2 times a day, # 180 tablet, Refills 3, Tot. Refills 3, Maintenance, 10/27/23 11:05:00 EST, Route to Pharmacy Electronically, [facility]/pharmacy #[id number], Partial fill upon patientrequest if the prescription is for a schedule II op... Start Date: 10/27/23 Status: Ordered nystatin topical [id number] u/gm powder See Instructions, APPLY TOPICALLY 3 TIMES A DAY TO RASH, # 60 Gm, 1 Refills, Maintenance, 02/02/24 7:47:00 EDT, [facility], 30, APPLY TOPICALLY 3 TIMES A DAY TO RASH, 170, cm, 01/19/24 14:19:00 EDT, Height, 136, kg, 01/17/24 9:30:00 EST, Dry Weight Start Date: 02/02/24 Status: Ordered omeprazole 40 mg oral enteric coated capsule 1 capsule = 40 mg, By Mouth, Daily, # 90 capsule, 3 Refills, Maintenance, 12/23/23 17:13:00 EST, ECCapsule, [facility]/pharmacy #[id number], Partial fill upon patient request if the [...] Team Personnel Name: Armani Reid DO Position: [facility] Renal MD Member Role: Lifetime Consulting Physician Address: Address: [address] [place] [address] [address] [facility] [place] [place] [address]- Name: Maynor Lyons RN Position: [facility] RN Member Role: Primary Care Nurse Name: Erik Kim DO Position: [facility] Physician - Primary Care Member Role: PCP Address: Address: [address] [place] [address]- Name: Dianna Frost RN Position: [facility] RN Member Role: Primary Care Nurse Care Team Related Persons Name: LORENA HARRISON Address: home [address] [place] [address] Name: LAYNE TREADWELL Address: home [address] [place] [address]
--- OUTSIDE RECORDS SUMMARY | 2024-03-09 15:28 | XMS_ITS | Continuity of Care Document ---
Author Organization [facility] Eric Lynch Gene Address [address] [place] [address]- Care Team Providers Care Lot Associate Name Role Phone Erik Kim DO Primary Care Physician [facility] Date[facility]): 02/05/24 - 03/06/24 [facility] [place] Adult [address] [place] [address]- Allergies, Adverse Reactions, Alerts Substance Reaction Severity [...] virus vaccine, inactivated 08/09/17 Avery rded SARS-CoV-2(COVID-19)mRNA-LNP vac([id number]) 08/02/23 Recorded Influenza Virus Vaccine (oldterm) 1 [...] Influenza Virus Vaccine (oldterm) 08/26/11 Recorde d [id number] 12y+ bivalent booster vax 08/06/22 Recorded pneumococcal 13-valent vaccine 6 07/25/22 Recorded pneumococcal 13-valent vaccine 7 12/14/18 Recorded pneumococcal 13-valent vaccine 12/14/18 Recorded pneumococcal 13-valent vaccine 8 06/06/16 Recorded SARS-CoV-2 mRNA (naivcul-hdnv-vkhzx) vax 03/13/22 Recorded SARS-CoV-2 mRNA (jhystif-fgap-lfwfx) vax 9 08/21/21 Recorded SARS-CoV-2 mRNA (nogntzh-tulm-pqhfl) vax 10 01/13/21 Recorded SARS-CoV-2 (COVID-19) mRNA BNT-162b2 vac 09/03/21 Recorded SARS-CoV-2 (COVID-19) Ad26 vaccine 01/13/21 Record ed zoster vaccine, inactivated 03/13/20 Recorded zoster vaccine, inactivated 12/09/19 Recorded Zoster Vaccine Live 11 12/09/19 Recorded Zoster Vaccine Live 03/13/12 Recorded tetanus/diphtheria/pertussis, acel(Tdap) 10/21/11 Recorded Pneumococcal Vaccine (oldterm) 11/08/06 Given pneumococcal 23-valent vaccine 12 11/08/06 Recorde d 1Result Comment: Unit: Unknown Route: Intramuscular Folding Machine Tender: Sanofi Pasteur 2Result Comment: Route: Intramuscular Folding Machine Tender: Sanofi Pasteur 3Result Comment: Unit: Unknown 4Result Comment: Unit: Unknown 5Result Comment: Unit: Unknown 6Result Comment: Unit: Unknown Route: Intramuscular Folding Machine Tender: Pfizer 7Result Comment: Unit: Unknown Route: Intramuscular Folding Machine Tender: Wyeth 8Result Comment: Unit: Unknown 9Result Comment: Route: Intramuscular Folding Machine Tender: Sanofi Pasteur 10Result Comment: Unit: Unknown Route: Intramuscular Folding Machine Tender: [employer] 11Result Comment: Route: Intramuscular Folding Machine Tender: GlaxoSmithKline 12Result Comment: Unit: Unknown Medications acetaminophen 325 mg oral tablet TAKE 2 TABLETS (650 MG)ORALLY EVERY 6 HOURS NEEDED FOR PAIN, MILD (PAIN SCALE 1-3) Start Date: 09/22/23 Status: Ordered atorvastatin 40 mg oral tablet 1 tablet = 40 mg, By Mouth, Daily, # 90 tablet, 3 Refills, Maintenance, 10/27/23 11:06:00 EST, Tablet, [facility]/pharmacy #[id number], Partial fill upon patient request [...] tablet, 0 Refills, Maintenance, 12/23/23 17:15:00 EST, [facility], 170.18, cm, 12/17/23 10:17:00 EST, Height, 127.2, kg, 10/02/23 3:00:00 EST, Dry Weight Start Date: 12/23/23 Status: Ordered estradiol 0.1 mg/g vaginal cream = 1 Gm, Vaginally, Daily at bedtime, # 30 Gm, 11 Refills, Maintenance, 11/17/23 9:45:00 EST, [facility]/pharmacy #[id number], Partial fill upon patient request [...] Replace Required Details, Route to Pharmacy Electronically, [facility]/pharmacy #[id number], Partial fill upon patient reque... Start Date: 10/27/23 Status: Ordered Gemtesa 75 mg oral tablet 1 tablet = 75 mg, By Mouth, Daily, # 30 tablet, 11 Refills, Maintenance, 11/17/23 9:45:00 EST, [facility]/pharmacy #[id number], Partial fill upon patient request [...] 04/01/24 21:50:00 EDT, 02/01/24 21:50:00 EDT, Tablet, [facility]/pharmacy #[id number], Part... Start Date: 02/01/24 Stop Date: 04/01/24 Status: Ordered metFORMIN 500 mg oral tablet 1 tablet = 500 mg, By Mouth, 2 times a day, # 180 tablet, 2 Refills, Maintenance, 12/23/23 17:13:00EST, Tablet, [facility]/pharmacy #[id number], Partial fill upon patient request if the prescription is for a schedule II opioid drug., 170.18, cm, 12/17/23 10:17:00... Start Date: 12/23/23 Status: Ordered metoprolol 50 mg oral tablet 50 mg, 1, tablet, By Mouth, 2 times a day, # 180 tablet, Refills 3, Tot. Refills 3, Maintenance, 10/27/23 11:05:00 EST, Route to Pharmacy Electronically, [facility]/pharmacy #[id number], Partial fill upon patientrequest if the prescription is for a schedule II op... Start Date: 10/27/23 Status: Ordered nystatin topical [id number] u/gm powder See Instructions, APPLY TOPICALLY 3 TIMES A DAY TO RASH, # 60 Gm, 1 Refills, Maintenance, 02/02/24 7:47:00 EDT, [facility], 30, APPLY TOPICALLY 3 TIMES A DAY TO RASH, 170, cm, 01/19/24 14:19:00 EDT, Height, 136, kg, 01/17/24 9:30:00 EST, Dry Weight Start Date: 02/02/24 Status: Ordered omeprazole 40 mg oral enteric coated capsule 1 capsule = 40 mg, By Mouth, Daily, # 90 capsule, 3 Refills, Maintenance, 12/23/23 17:13:00 EST, ECCapsule, [facility]/pharmacy #[id number], Partial fill upon patient request if the [...] Team Personnel Name: Armani Reid DO Position: [facility] Renal MD Member Role: Lifetime Consulting Physician Address: Address: [address] [place] [address] [address] [facility] [place] [address]- Name: Maynor Lyons RN Position: [facility] RN Member Role: Primary Care Nurse Name: Erik Kim DO Position: [facility] Physician - Primary Care Member Role: PCP Address: Address: [address] [place] [address]- Name: Dianna Frost RN Position: [facility] RN Member Role: Primary Care Nurse Care Team Related Persons Name: LORENA HARRISON Address: [address] [place] [address] Name: LAYNE TREADWELL Address: home [address] [place] [address]
--- OUTSIDE RECORDS SUMMARY | 2024-03-09 15:28 | XMS_ITS | Continuity of Care Document ---
Author Organization [facility] Eric Lynch Gene lt Address [address] [place] [address]- Care Team Providers Care Lens Edge Grinder Machine Name Role Phone Erik Kim DO Primary Care Physician [facility] Date[facility]): 07/10/23 - 11/28/23 [facility] Eric Velazquezley Adult [address] [place] [address]- Attending Physician: Erik Kim DO Allergies, Adverse [...] virus vaccine, inactivated 08/09/17 Avery rded SARS-CoV-2(COVID-19)mRNA-LNP vac([id number]) 08/02/23 Recorded Influenza Virus Vaccine (oldterm) 1 [...] Influenza Virus Vaccine (oldterm) 08/26/11 Recorde d [id number] 12y+ bivalent booster vax 08/06/22 Recorded pneumococcal 13-valent vaccine 6 07/25/22 Recorded pneumococcal 13-valent vaccine 7 12/14/18 Recorded pneumococcal 13-valent vaccine 12/14/18 Recorded pneumococcal 13-valent vaccine 8 06/06/16 Recorded SARS-CoV-2 mRNA (tzzsrtn-myvo-iadlh) vax 03/13/22 Recorded SARS-CoV-2 mRNA (kutzsas-obff-ylolj) vax 9 08/21/21 Recorded SARS-CoV-2 mRNA (wkyjlfy-tepp-fsxlu) vax 10 01/13/21 Recorded SARS-CoV-2 (COVID-19) mRNA BNT-162b2 vac 09/03/21 Recorded SARS-CoV-2 (COVID-19) Ad26 vaccine 01/13/21 Record ed zoster vaccine, inactivated 03/13/20 Recorded zoster vaccine, inactivated 12/09/19 Recorded Zoster Vaccine Live 11 12/09/19 Recorded Zoster Vaccine Live 03/13/12 Recorded tetanus/diphtheria/pertussis, acel(Tdap) 10/21/11 Recorded Pneumococcal Vaccine (oldterm) 11/08/06 Given pneumococcal 23-valent vaccine 12 11/08/06 Recorde d 1Result Comment: Unit: Unknown Route: Intramuscular Air Plant Engineer: Sanofi Pasteur 2Result Comment: Route: Intramuscular Air Plant Engineer: Sanofi Pasteur 3Result Comment: Unit: Unknown 4Result Comment: Unit: Unknown 5Result Comment: Unit: Unknown 6Result Comment: Unit: Unknown Route: Intramuscular Air Plant Engineer: Pfizer 7Result Comment: Unit: Unknown Route: Intramuscular Air Plant Engineer: Wyeth 8Result Comment: Unit: Unknown 9Result Comment: Route: Intramuscular Air Plant Engineer: Sanofi Pasteur 10Result Comment: Unit: Unknown Route: Intramuscular Air Plant Engineer: Suleiman 11Result Comment: Route: Intramuscular Air Plant Engineer: GlaxoSmithKline 12Result Comment: Unit: Unknown Medications acetaminophen 325 mg oral tablet TAKE 2 TABLETS (650 MG)ORALLY EVERY 6 HOURS NEEDED FOR PAIN, MILD (PAIN SCALE 1-3) Start Date: 09/22/23 Status: Ordered amLODIPine 2.5 mg oral tablet 1 tablet, By Mouth, Daily, # 90 tablet, 0 Refills, Maintenance, 11/12/23 12:11:00 EST, [facility], 170.18, cm, 10/30/23 14:25:00 EST, Height, 127.2, kg, 10/02/23 3:00:00 EST, Dry Weight Start Date: 11/12/23 Status: Ordered atorvastatin 40 mg oral tablet 1 tablet = 40 mg, By Mouth, Daily, # 90 tablet, 3 Refills, Maintenance, 10/27/23 11:06:00 EST, Tablet, [facility]/pharmacy #[id number], Partial fill upon [...] Gm, 11 Refills, Maintenance, 11/17/23 9:45:00 EST, [facility]/pharmacy #[id number], Partial fill upon [...] Replace Required Details, Route to Pharmacy Electronically, [facility]/pharmacy #[id number], Partial fill upon patient reque... Start Date: 10/27/23 Status: Ordered Gemtesa 75 mg oral tablet 1 tablet = 75 mg, By Mouth, Daily, # 30 tablet, 11 Refills, Maintenance, 11/17/23 9:45:00 EST, [facility]/pharmacy #[id number], Partial fill upon [...] 10/27/23 11:05:00 EST, Route to Pharmacy Electronically, [facility]/pharmacy #[id number], Partial fill upon patientrequest if the prescription is for a schedule II op... Start Date: 10/27/23 Status: Ordered Milk of Magnesia = 1,200 mg, By Mouth, 3 times a day, 0 Refills, Maintenance, 09/22/23 15:30:00 EST, Partial fill upon patient request if the prescription is for a schedule II opioid drug. Start Date: 09/22/23 Status: Ordered nystatin topical [id number] u/gm powder 1 application, Topically, 3 times [...] 2; entered on: 07/03/23 Sex Note * Emmy Humphrey RN: PERFORM, SIGN, VERIFY Erik Kim DO: SIGN Event Display: Case Management Discharge Plan Authored Date: [id number] Patient: BEN GARIBAY Age: 73 years Sex: Female : 1950 Associated Diagnoses: None Author: Emmy Humphrey RN Care Management Discharge Call Note Admit date 10/01/2023 Discharge date 10/04/2023 Date of contact 10/07/2023 Diagnosis Fall weakness If patient went for emergency services was this patient referred? Referred by Self Notes in cis Discharge instructions were reviewed with the patient? Yes Medication reconciliation performed Yes Looks like you were recently discharged from the hospital (ED), how are you feeling? Result Type: Phone Msg Result Date: October 06, 2023 11:09 EST Result Status: Modified Result Title: IPF [facility] Fall Weakness Performed By: Emmy Humphrey RN on October 06, 2023 11:09 EST Encounter info: [id number], [facility], Pre Office Visit * Final Report * Document Contains Addenda Addendum by Emmy Humphrey RN on October 07, 2023 15:48:32 EST (Verified) From: Emmy Humphrey RN To: Erik Kim DO; Sent: 10/07/2023 15:48:32 EST Subject: sick call quesiton of toe infection FYI Caller Name: BEN GARIBAY; Caller Number: C S:Bilateral great toes abraded and some bloody discharge. noted some green discharge this am. B: Patient c/o: No fever or pain. Pt is seeing for IPF on 10/21 Pt has [facility] pt is a Diabetic. A: Per protocol: pt is sophie on 10/08 with YULIA MILLER for a 9a visit for toe assess. advised to go to ED/call 911 if any worsening. R: Protocol Used: Cuts and Lacerations (Adult) Protocol-Based Disposition: See in Office or Video Visit within 3 Days Video visit offer not recorded Positive Triage Question: * Diabetes mellitus and minor cut or scratch on foot * All higher-acuity triage questions were negative Care Advice Discussed: * Reasons To Call Back - Dirt in the wound persists after 15 minutes of scrubbing - Looks infected (pus, redness, increasing tenderness) - Doesn't heal within 14 days - Bleeding does not stop after using direct pressure - You become worse Sent to PCP as FYI Overall pt is feeling well and denines any severe s/sx. Please tell me the problem or condition that brought you to the hospital (ED)? Fall Do you know what to do in case of an emergency? Yes Were you given any prescriptions to fill? Yes. Do you understand how to take your medication? Yes Other diagnostic tests/procedures ordered/recommended? N/A Do you have an appointment already scheduled with your PCP? Yes Is date appropriate: Yes. Are you able to get to that appointment: Yes. Appointment scheduled? Date 10/21/2023 Home Care Services requested? Yes Agency [facility] PT Patient contacted: Yes. Have there been any changes in your condition since discharge? Yes see above toes Do you have someone at home that is able to help you? Yes Is there anything else that you need addressed before your follow up appointment? No Patient Care team information Care Team Personnel Name: Armani Reid DO Position: [facility] Renal MD Member Role: Lifetime Consulting Physician Address: Address: [address] [place] [address] [address] [facility] [place] [address]- Name: Erik iKm DO Position: [facility] Physician - Primary Care Member Role: PCP Address: Address: [address] [place] [address] [place] [address]- Care Team Related Persons Name: LORENA HARRISON Address: home [address] [place] [address] Name: LAYNE TREADWELL Address: home [address] [place] [address]
--- OUTSIDE RECORDS SUMMARY | 2024-03-09 15:28 | XMS_ITS | Continuity of Care Document ---
Author Organization [facility] Syed Gene lt Address [address] [place] [address]- Care Team Providers Care Net Finisher Name Role Phone Erik Kim DO Primary Care Physician [facility]counter [facility] Date(s): 10/15/23 - 01/22/24 [facility] Adult [address] [place] [address]- Attending Physician: Erik Kim DO Allergies, Adverse [...] virus vaccine, inactivated 08/09/17 Avery rded SARS-CoV-2(COVID-19)mRNA-LNP vac([id number]) 08/02/23 Recorded Influenza Virus Vaccine (oldterm) 1 [...] Influenza Virus Vaccine (oldterm) 08/26/11 Recorde d [id number] 12y+ bivalent booster vax 08/06/22 Recorded pneumococcal 13-valent vaccine 6 07/25/22 Recorded pneumococcal 13-valent vaccine 7 12/14/18 Recorded pneumococcal 13-valent vaccine 12/14/18 Recorded pneumococcal 13-valent vaccine 8 06/06/16 Recorded SARS-CoV-2 mRNA (jrjcwcn-sgzu-mkiog) vax 03/13/22 Recorded SARS-CoV-2 mRNA (mjawclb-ocxa-ghhpe) vax 9 08/21/21 Recorded SARS-CoV-2 mRNA (wefhdps-qnfj-szlha) vax 10 01/13/21 Recorded SARS-CoV-2 (COVID-19) mRNA BNT-162b2 vac 09/03/21 Recorded SARS-CoV-2 (COVID-19) Ad26 vaccine 01/13/21 Record ed zoster vaccine, inactivated 03/13/20 Recorded zoster vaccine, inactivated 12/09/19 Recorded Zoster Vaccine Live 11 12/09/19 Recorded Zoster Vaccine Live 03/13/12 Recorded tetanus/diphtheria/pertussis, acel(Tdap) 10/21/11 Recorded Pneumococcal Vaccine (oldterm) 11/08/06 Given pneumococcal 23-valent vaccine 12 11/08/06 Recorde d 1Result Comment: Unit: Unknown Route: Intramuscular Donor Relations Associate: Sanofi Pasteur 2Result Comment: Route: Intramuscular Donor Relations Associate: Sanofi Pasteur 3Result Comment: Unit: Unknown 4Result Comment: Unit: Unknown 5Result Comment: Unit: Unknown 6Result Comment: Unit: Unknown Route: Intramuscular Donor Relations Associate: Pfizer 7Result Comment: Unit: Unknown Route: Intramuscular Donor Relations Associate: Wyeth 8Result Comment: Unit: Unknown 9Result Comment: Route: Intramuscular Donor Relations Associate: Sanofi Pasteur 10Result Comment: Unit: Unknown Route: Intramuscular Donor Relations Associate: Suleiman 11Result Comment: Route: Intramuscular Donor Relations Associate: GlaxoSmithKline 12Result Comment: Unit: Unknown Medications acetaminophen 325 mg oral tablet TAKE 2 TABLETS (650 MG)ORALLY EVERY 6 HOURS NEEDED FOR PAIN, MILD (PAIN SCALE 1-3) Start Date: 09/22/23 Status: Ordered atorvastatin 40 mg oral tablet 1 tablet = 40 mg, By Mouth, Daily, # 90 tablet, 3 Refills, Maintenance, 10/27/23 11:06:00 EST, Tablet, [facility]/pharmacy #[id number], Partial fill upon patient request [...] Refills, Maintenance, 12/23/23 17:15:00 EST, [facility], 170.18, cm, 12/17/23 10:17:00 EST, Height, 127.2, kg, 10/02/23 3:00:00 EST, Dry Weight Start Date: 12/23/23 Status: Ordered estradiol 0.1 mg/g vaginal cream = 1 Gm, Vaginally, Daily at bedtime, # 30 Gm, 11 Refills, Maintenance, 11/17/23 9:45:00 EST, [facility]/pharmacy #[id number], Partial fill upon patient request [...] Replace Required Details, Route to Pharmacy Electronically, [facility]/pharmacy #[id number], Partial fill upon patient reque... Start Date: 10/27/23 Status: Ordered Gemtesa 75 mg oral tablet 1 tablet = 75 mg, By Mouth, Daily, # 30 tablet, 11 Refills, Maintenance, 11/17/23 9:45:00 EST, [facility]/pharmacy #[id number], Partial fill upon patient request [...] tablet, 2 Refills, Maintenance, 12/23/23 17:13:00EST, Tablet, [facility]/pharmacy #[id number], Partial fill upon patient request if the prescription is for a schedule II opioid drug., 170.18, cm, 12/17/23 10:17:00... Start Date: 12/23/23 Status: Ordered metoprolol 50 mg oral tablet 50 mg, 1, tablet, By Mouth, 2 times a day, # 180 tablet, Refills 3, Tot. Refills 3, Maintenance, 10/27/23 11:05:00 EST, Route to Pharmacy Electronically, [facility]/pharmacy #[id number], Partial fill upon patientrequest if the prescription is for a schedule II op... Start Date: 10/27/23 Status: Ordered nystatin topical [id number] u/gm powder See Instructions, APPLY TOPICALLY 3 TIMES A DAY TO RASH, # 60 Gm, 0 Refills, Maintenance, 12/23/23 17:15:00 EST, [facility], 30, APPLY TOPICALLY 3 TIMES A DAY TO RASH, 170.18, cm, 12/17/23 10:17:00 EST, Height, 127.2, kg, 10/02/23 3:00:00 EST, Dr... Start Date: 12/23/23 Status: Ordered nystatin topical [id number] u/gm powder 1 application, Topically, 3 times a day, to rash, # 60 Gm, 0 Refills, Maintenance, 10/27/23 11:02:00 EST, Powder, [facility]/pharmacy #[id number], Partial fill upon patient request if the prescription is for a schedule II opioid drug., 1 application Topically 3 ti... Start Date: 10/27/23 Status: Ordered omeprazole 40 mg oral enteric coated capsule 1 capsule = 40 mg, By Mouth, Daily, # 90 capsule, 3 Refills, Maintenance, 12/23/23 17:13:00 EST, ECCapsule, [facility]/pharmacy #[id number], Partial fill upon patient request [...] Team Personnel Name: Armani Reid DO Position: [facility] Renal MD Member Role: Lifetime Consulting Physician Address: Address: [address] [place], [place] [address] [place] [address]- Name: Maynor Lyons RN Position: [facility] RN Member Role: Primary Care Nurse Name: Erik Kim DO Position: [facility] Physician - Primary Care Member Role: PCP Address: Address: [address] [facility] [place] [address]- Name: Dianna Frost RN Position: [facility] RN Member Role: Primary Care Nurse Care Team Related Persons Name: LORENA HARRISON Address: home [address] [place] [address] Name: LAYNE TREADWELL Address: home [address] [place] [address]
--- OUTSIDE RECORDS SUMMARY | 2024-03-09 15:28 | XMS_ITS | Continuity of Care Document ---
Author Organization [facility] Syed Gene Address [address] [place] [address]- Care Team Providers Care Apiculture Teacher Name Role Phone Erik Kim DO Primary Care Physician [facility] Date[facility]s): 09/05/23 - 10/05/23 [facility] Adult [address] [place] [address]- Allergies, Adverse Reactions, Alerts Substance Reaction Severity [...] virus vaccine, inactivated 08/09/17 Avery rded SARS-CoV-2(COVID-19)mRNA-LNP vac([id number]) 08/02/23 Recorded Influenza Virus Vaccine (oldterm) 1 [...] Influenza Virus Vaccine (oldterm) 08/26/11 Recorde d [id number] 12y+ bivalent booster vax 08/06/22 Recorded pneumococcal 13-valent vaccine 6 07/25/22 Recorded pneumococcal 13-valent vaccine 7 12/14/18 Recorded pneumococcal 13-valent vaccine 12/14/18 Recorded pneumococcal 13-valent vaccine 8 06/06/16 Recorded pneumococcal 20-valent conjugate vaccine 07/25/22 Recorded SARS-CoV-2 mRNA (jwmqikl-oojs-hlgpz) vax 03/13/22 Recorded SARS-CoV-2 mRNA (zzplfcg-rvoh-hpfei) vax 9 08/21/21 Recorded SARS-CoV-2 mRNA (nockoqc-ctzm-baspj) vax 10 01/13/21 Recorded SARS-CoV-2 (COVID-19) mRNA BNT-162b2 vac 09/03/21 Recorded SARS-CoV-2 (COVID-19) Ad26 vaccine 01/13/21 Record ed zoster vaccine, inactivated 03/13/20 Recorded zoster vaccine, inactivated 12/09/19 Recorded Zoster Vaccine Live 11 12/09/19 Recorded Zoster Vaccine Live 03/13/12 Recorded tetanus/diphtheria/pertussis, acel(Tdap) 10/21/11 Recorded Pneumococcal Vaccine (oldterm) 11/08/06 Given pneumococcal 23-valent vaccine 12 11/08/06 Recorde d 1Result Comment: Unit: Unknown Route: Intramuscular Delivery Coordinator: Sanofi Pasteur 2Result Comment: Route: Intramuscular Delivery Coordinator: Sanofi Pasteur 3Result Comment: Unit: Unknown 4Result Comment: Unit: Unknown 5Result Comment: Unit: Unknown 6Result Comment: Unit: Unknown Route: Intramuscular Delivery Coordinator: Pfizer 7Result Comment: Unit: Unknown Route: Intramuscular Delivery Coordinator: Wyeth 8Result Comment: Unit: Unknown 9Result Comment: Route: Intramuscular Delivery Coordinator: Sanofi Pasteur 10Result Comment: Unit: Unknown Route: Intramuscular Delivery Coordinator: [employer] 11Result Comment: Route: Intramuscular Delivery Coordinator: [employer] 12Result Comment: Unit: Unknown Medications acetaminophen 325 [...] Electronically, [facility]/pharmacy #[id number], Partial fill upon patient reque... Start Date: [...] Team Personnel Name: Armani Reid DO Position: [facility] Renal MD Member Role: Lifetime Consulting Physician Address: Address: [address] [facility] [place] [address]- Name: Erik Kim DO Position: [facility] Physician - Primary Care Member Role: PCP Address: Address: [address] [place], [place] [address] Care Team Related Persons Name: LORENA HARRISON Address: [address] [place] [address] Name: LAYNE TREADWELL Address: home [address] [place] [address]
--- OUTSIDE RECORDS SUMMARY | 2024-03-09 15:28 | XMS_ITS | Continuity of Care Document ---
Author Organization [facility] Eric Lynch Gene lt Address [address] [place] [address]- Care Team Providers Care Forklift Material Handler Name Role Phone Erik Kim DO Primary Care Physician [facility] Date(s): 10/10/23 - 11/09/23 [facility] Adult [address] [place] [address]- Allergies, Adverse Reactions, Alerts Substance Reaction Severity [...] virus vaccine, inactivated 08/09/17 Avery rded SARS-CoV-2(COVID-19)mRNA-LNP vac([id number]) 08/02/23 Recorded Influenza Virus Vaccine (oldterm) 1 [...] Influenza Virus Vaccine (oldterm) 08/26/11 Recorde d [id number] 12y+ bivalent booster vax 08/06/22 Recorded pneumococcal 13-valent vaccine 6 07/25/22 Recorded pneumococcal 13-valent vaccine 7 12/14/18 Recorded pneumococcal 13-valent vaccine 12/14/18 Recorded pneumococcal 13-valent vaccine 8 06/06/16 Recorded SARS-CoV-2 mRNA (jnaugoe-zmro-cebww) vax 03/13/22 Recorded SARS-CoV-2 mRNA (kyxfldr-eyok-egxyq) vax 9 08/21/21 Recorded SARS-CoV-2 mRNA (unwxauc-vemc-lejri) vax 10 01/13/21 Recorded SARS-CoV-2 (COVID-19) mRNA BNT-162b2 vac 09/03/21 Recorded SARS-CoV-2 (COVID-19) Ad26 vaccine 01/13/21 Record ed zoster vaccine, inactivated 03/13/20 Recorded zoster vaccine, inactivated 12/09/19 Recorded Zoster Vaccine Live 11 12/09/19 Recorded Zoster Vaccine Live 03/13/12 Recorded tetanus/diphtheria/pertussis, acel(Tdap) 10/21/11 Recorded Pneumococcal Vaccine (oldterm) 11/08/06 Given pneumococcal 23-valent vaccine 12 11/08/06 Recorde d 1Result Comment: Unit: Unknown Route: Intramuscular Injection Molding Supervisor: Sanofi Pasteur 2Result Comment: Route: Intramuscular Injection Molding Supervisor: Sanofi Pasteur 3Result Comment: Unit: Unknown 4Result Comment: Unit: Unknown 5Result Comment: Unit: Unknown 6Result Comment: Unit: Unknown Route: Intramuscular Injection Molding Supervisor: Pfizer 7Result Comment: Unit: Unknown Route: Intramuscular Injection Molding Supervisor: Wyeth 8Result Comment: Unit: Unknown 9Result Comment: Route: Intramuscular Injection Molding Supervisor: Sanofi Pasteur 10Result Comment: Unit: Unknown Route: Intramuscular Injection Molding Supervisor: Suleiman 11Result Comment: Route: Intramuscular Injection Molding Supervisor: GlaxoSmithKline 12Result Comment: Unit: Unknown Medications acetaminophen [...] 11/16/23 17:37:00 EST, 11/06/23 17:37:00 EST, Tablet, [facility]/pharmacy #[id number], Partial fill [...] EST, Route to Pharmacy Electronically, [facility]/pharmacy #[id number], Partial fill upon patientrequest if the prescription is for a schedule II op... Start Date: 10/27/23 Status: Ordered Milk of Magnesia = 1,200 mg, By Mouth, 3 times a day, 0 Refills, Maintenance, 09/22/23 15:30:00 EST, Partial fill upon patient request if the prescription is for a schedule II opioid drug. Start Date: 09/22/23 Status: Ordered nystatin topical [id number] u/gm powder 1 application, Topically, 3 times a day, to rash, # 60 Gm, 0 Refills, Maintenance, 10/27/23 11:02:00 EST, Powder, [facility]/pharmacy #[id number], Partial fill upon patient [...] Member Role: Lifetime Consulting Physician Address: Address: [address] [place] [address] [address] [facility] [place] [address]- Name: Erik Kim DO Position: [facility] Physician - Primary Care Member Role: PCP Address: Address: [address] [place] [address]- Care Team Related Persons Name: LORENA HARRISON Address: [address] [place] [address] Name: LAYNE TREADWELL Address: home [address] [place] [address]
--- OUTSIDE RECORDS SUMMARY | 2024-03-09 15:28 | XMS_ITS | Continuity of Care Document ---
Author Organization [facility] Address [address], [address] [place] [address]- Care Team Providers Care American History Professor Name Role Phone Erik Kim DO Primary Care Physician En[place] [facility] [place](s): 11/17/23 - 12/17/23 [facility] [employer] [facility] [address], [address] [place], [place] [address] Attending Physician: Amna Darling Admitting Physician: AdmAmna dinh Referring Physician: AdmtrAmna Allergies, Adverse Reactions, Alerts Substance Reaction Severity Status Myrbetriq Hallucinations Active Immunizations Given and Recorded Vaccine Date Status Refusal Reason pneumococcal 20-valent conjugate vaccine 10/30/23 Given pneumococcal 20-valent conjugate vaccine 07/25/22 Recorded RSV vaccine preF3, recombinant 10/15/23 Recorded influenza virus vaccine, inactivated 08/02/23 Aveyr rded influenza virus vaccine, inactivated 08/06/22 Avery rded influenza virus vaccine, inactivated 08/21/21 Avery rded influenza virus vaccine, inactivated 08/09/20 Avery rded influenza virus vaccine, inactivated 07/05/19 Avery rded influenza virus vaccine, inactivated 08/08/18 Avery rded influenza virus vaccine, inactivated 08/09/17 Avery rded SARS-CoV-2(COVID-19)mRNA-LNP vac([id number]) 08/02/23 Recorded Influenza Virus Vaccine (oldterm) 1 [...] Influenza Virus Vaccine (oldterm) 08/26/11 Recorde d [id number] 12y+ bivalent booster vax 08/06/22 Recorded pneumococcal 13-valent vaccine 6 07/25/22 Recorded pneumococcal 13-valent vaccine 7 12/14/18 Recorded pneumococcal 13-valent vaccine 12/14/18 Recorded pneumococcal 13-valent vaccine 8 06/06/16 Recorded SARS-CoV-2 mRNA (zjjkwyv-xcbj-rchqe) vax 03/13/22 Recorded SARS-CoV-2 mRNA (uksxpdg-hyew-uonvy) vax 9 08/21/21 Recorded SARS-CoV-2 mRNA (gyezgws-kojr-ytkos) vax 10 01/13/21 Recorded SARS-CoV-2 (COVID-19) mRNA BNT-162b2 vac 09/03/21 Recorded SARS-CoV-2 (COVID-19) Ad26 vaccine 01/13/21 Record ed zoster vaccine, inactivated 03/13/20 Recorded zoster vaccine, inactivated 12/09/19 Recorded Zoster Vaccine Live 11 12/09/19 Recorded Zoster Vaccine Live 03/13/12 Recorded tetanus/diphtheria/pertussis, acel(Tdap) 10/21/11 Recorded Pneumococcal Vaccine (oldterm) 11/08/06 Given pneumococcal 23-valent vaccine 12 11/08/06 Recorde d 1Result Comment: Unit: Unknown Route: Intramuscular Fine Arts Teacher: Sanofi Pasteur 2Result Comment: Route: Intramuscular Fine Arts Teacher: Sanofi Pasteur 3Result Comment: Unit: Unknown 4Result Comment: Unit: Unknown 5Result Comment: Unit: Unknown 6Result Comment: Unit: Unknown Route: Intramuscular Fine Arts Teacher: Pfizer 7Result Comment: Unit: Unknown Route: Intramuscular Fine Arts Teacher: Wyeth 8Result Comment: Unit: Unknown 9Result Comment: Route: Intramuscular Fine Arts Teacher: Sanofi Pasteur 10Result Comment: Unit: Unknown Route: Intramuscular Fine Arts Teacher: tamyca 11Result Comment: Route: Intramuscular Fine Arts Teacher: GlaxoSmithKline 12Result Comment: Unit: Unknown Medications acetaminophen 325 mg oral tablet TAKE 2 TABLETS (650 MG)ORALLY EVERY 6 HOURS NEEDED FOR PAIN, MILD (PAIN SCALE 1-3) Start Date: 09/22/23 Status: Ordered amLODIPine 2.5 mg oral tablet 1 tablet, By Mouth, Daily, # 90 tablet, 0 Refills, Maintenance, 11/12/23 12:11:00 EST, [id number], 170.18, cm, 10/30/23 14:25:00 EST, Height, 127.2, kg, 10/02/23 3:00:00 EST, Dry Weight Start Date: 11/12/23 Status: Ordered atorvastatin 40 mg oral tablet 1 tablet = 40 mg, By Mouth, Daily, # 90 tablet, 3 Refills, Maintenance, 10/27/23 11:06:00 EST, Tablet, [facility]/pharmacy #[id number], Partial fill upon patient request if [...] Gm, 11 Refills, Maintenance, 11/17/23 9:45:00 EST, [facility]/pharmacy #[id number], Partial fill upon patient request if [...] Replace Required Details, Route to Pharmacy Electronically, [facility]/pharmacy #[id number], Partial fill upon patient reque... Start Date: 10/27/23 Status: Ordered Gemtesa 75 mg oral tablet 1 tablet = 75 mg, By Mouth, Daily, # 30 tablet, 11 Refills, Maintenance, 11/17/23 9:45:00 EST, [facility]/pharmacy #[id number], Partial fill upon patient request if [...] 10/27/23 11:05:00 EST, Route to Pharmacy Electronically, [facility]/pharmacy #[id number], Partial fill upon patientrequest if the prescription is for a schedule II op... Start Date: 10/27/23 Status: Ordered Milk of Magnesia = 1,200 mg, By Mouth, 3 times a day, 0 Refills, Maintenance, 09/22/23 15:30:00 EST, Partial fill upon patient request if the prescription is for a schedule II opioid drug. Start Date: 09/22/23 Status: Ordered nystatin topical [id number] u/gm powder 1 application, Topically, 3 times a day, to rash, # 60 Gm, 0 Refills, Maintenance, 10/27/23 11:02:00 EST, Powder, [facility]/pharmacy #[id number], Partial fill upon patient request if [...] Member Role: Lifetime Consulting Physician Address: Address: [address] [place] [address] [address] [facility] [place] [address]- [place] Name: Erik Kim DO Position: [facility] Physician - Primary Care Member Role: PCP Address: Address: [address] [place] [id number]- Care Team Related Persons Name: LORENA HARRISON Address: [address] [place] [address] Name: LAYNE TREADWELL Address: [address] [place] [address]
--- OUTSIDE RECORDS SUMMARY | 2024-03-09 15:28 | XMS_ITS | Continuity of Care Document ---
Author Organization [facility] Address [address], [address], [address] [place] [phone]- Care Team Providers Care Mail Manager Name Role Phone Erik Kim DO Primary Care Physician [phone] Encounter [facility] Date(s): 08/19/23 - 09/18/23 [facility] [address], [address], [address] [place] [phone]- Allergies, Adverse Reactions, Alerts Substance Reaction Severity [...] influenza virus vaccine, inactivated 08/09/17 Avery rded [id number] 12y+ bivalent booster vax 08/06/22 Recorded pneumococcal 13-valent vaccine 6 07/25/22 Recorded pneumococcal 13-valent vaccine 7 12/14/18 Recorded pneumococcal 13-valent vaccine 12/14/18 Recorded pneumococcal 13-valent vaccine 8 06/06/16 Recorded pneumococcal 20-valent conjugate vaccine 07/25/22 Recorded SARS-CoV-2 mRNA (znpwrdq-gmyu-dlvdt) vax 03/13/22 Recorded SARS-CoV-2 mRNA (uelktao-gizp-hnjvl) vax 9 08/21/21 Recorded SARS-CoV-2 mRNA (rwgbcqc-fxgp-tscqh) vax 10 01/13/21 Recorded SARS-CoV-2 (COVID-19) mRNA BNT-162b2 vac 09/03/21 Recorded SARS-CoV-2 (COVID-19) Ad26 vaccine 01/13/21 Record ed zoster vaccine, inactivated 03/13/20 Recorded zoster vaccine, inactivated 12/09/19 Recorded Zoster Vaccine Live 11 12/09/19 Recorded Zoster Vaccine Live 03/13/12 Recorded tetanus/diphtheria/pertussis, acel(Tdap) 10/21/11 Recorded Pneumococcal Vaccine (oldterm) 11/08/06 Given pneumococcal 23-valent vaccine 12 11/08/06 Recorde d 1Result Comment: Unit: Unknown Route: Intramuscular Substitute Nurse: Sanofi Pasteur 2Result Comment: Route: Intramuscular Substitute Nurse: Sanofi Pasteur 3Result Comment: Unit: Unknown 4Result Comment: Unit: Unknown 5Result Comment: Unit: Unknown 6Result Comment: Unit: Unknown Route: Intramuscular Substitute Nurse: Pfizer 7Result Comment: Unit: Unknown Route: Intramuscular Substitute Nurse: Wyeth 8Result Comment: Unit: Unknown 9Result Comment: Route: Intramuscular Substitute Nurse: Sanofi Pasteur 10Result Comment: Unit: Unknown Route: Intramuscular Substitute Nurse: Suleiman 11Result Comment: Route: Intramuscular Substitute Nurse: GlaxSatispayKline 12Result Comment: Unit: Unknown Medications amLODIPine 2.5 [...] Details, Route to Pharmacy Electronically, [facility]/pharmacy #[id number], Partial fill upon patie... Start Date: 09/08/23 [...] tablet, 3 Refills, Maintenance, 07/21/23 12:40:00 EDT, [facility]/pharmacy #[id number], Partial fill upon patient [...] Member Role: Lifetime Consulting Physician Address: Address: [address] [place] [address] [address] [facility] [place] [address]- Name: Erik Kim DO Position: [facility] Physician - Primary Care Member Role: PCP Address: Address: [address] [place] [id number]- Care Team Related Persons Name: LORENA HARRISON Address: [address] [place] [address] Name: LAYNE TREADWELL Address: home [address] [place] [address]
--- OUTSIDE RECORDS SUMMARY | 2024-03-09 15:28 | XMS_ITS | Continuity of Care Document ---
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 Control Clerk Name Role Phone Erik Kim DO Primary Care Physician [place] [facility] [place]): [place]17[place] - 01/19/[address] [id number]- Encounter Diagnosis Dehydration, mild(Final) - 01/17/24 Syncope(Final) - 01/17/24 Atrial fibrillation(Final) - 01/17/24 Discharge Disposition: A-D/C Home Attending Physician: Darius Robert MD Admitting Physician: Ranjit SUMMERS, Rianna Stafford Referring Physician: Not on Staff, Referring MD [...] virus vaccine, inactivated 08/09/17 Avery rded SARS-CoV-2(COVID-19)mRNA-LNP vac([id number]) 08/02/23 Recorded Influenza Virus Vaccine (oldterm) 1 [...] Influenza Virus Vaccine (oldterm) 08/26/11 Recorde d [id number] 12y+ bivalent booster vax 08/06/22 Recorded pneumococcal 13-valent vaccine 6 07/25/22 Recorded pneumococcal 13-valent vaccine 7 12/14/18 Recorded pneumococcal 13-valent vaccine 12/14/18 Recorded pneumococcal 13-valent vaccine 8 06/06/16 Recorded SARS-CoV-2 mRNA (ujsvmwq-jnvu-cpbpo) vax 03/13/22 Recorded SARS-CoV-2 mRNA (hynhikn-iryj-tmnni) vax 9 08/21/21 Recorded SARS-CoV-2 mRNA (tyewkqk-wsxy-qjgvb) vax 10 01/13/21 Recorded SARS-CoV-2 (COVID-19) mRNA BNT-162b2 vac 09/03/21 Recorded SARS-CoV-2 (COVID-19) Ad26 vaccine 01/13/21 Record ed zoster vaccine, inactivated 03/13/20 Recorded zoster vaccine, inactivated 12/09/19 Recorded Zoster Vaccine Live 11 12/09/19 Recorded Zoster Vaccine Live 03/13/12 Recorded tetanus/diphtheria/pertussis, acel(Tdap) 10/21/11 Recorded Pneumococcal Vaccine (oldterm) 11/08/06 Given pneumococcal 23-valent vaccine 12 11/08/06 Recorde d 1Result Comment: Unit: Unknown Route: Intramuscular Cup Setter Lockstitch: Sanofi Pasteur 2Result Comment: Route: Intramuscular Cup Setter Lockstitch: Sanofi Pasteur 3Result Comment: Unit: Unknown 4Result Comment: Unit: Unknown 5Result Comment: Unit: Unknown 6Result Comment: Unit: Unknown Route: Intramuscular Cup Setter Lockstitch: Pfizer 7Result Comment: Unit: Unknown Route: Intramuscular Cup Setter Lockstitch: Wyeth 8Result Comment: Unit: Unknown 9Result Comment: Route: Intramuscular Cup Setter Lockstitch: Sanofi Pasteur 10Result Comment: Unit: Unknown Route: Intramuscular Cup Setter Lockstitch: Cleanify 11Result Comment: Route: Intramuscular Cup Setter Lockstitch: PowerMessage 12Result Comment: Unit: Unknown Medications acetaminophen 325 mg oral tablet TAKE 2 TABLETS (650 MG)ORALLY EVERY 6 HOURS NEEDED FOR PAIN, MILD (PAIN SCALE 1-3) Start Date: 09/22/23 Status: Ordered atorvastatin 40 mg oral tablet 1 tablet = 40 mg, By Mouth, Daily, # 90 tablet, 3 Refills, Maintenance, 10/27/23 11:06:00 EST, Tablet, [facility]/pharmacy #[id number], Partial fill upon [...] tablet, 0 Refills, Maintenance, 12/23/23 17:15:00 EST, [facility] STORE [id number], 170.18, cm, 12/17/23 10:17:00 EST, Height, 127.2, [...] oral capsule 300 mg, Capsule, By Mouth, 01/19/24 9:00:00 EDT Start Date: 01/19/24 Stop Date: 01/19/24 Status: Completed gabapentin 300 mg oral capsule See Instructions, [...] tablet, 11 Refills, Maintenance, 11/17/23 9:45:00 EST, [facility] Maintenance, 12/23/23 17:13:00EST, Tablet, [facility]/pharmacy #[id number], Partial fill upon patient request if the prescription is for a schedule II opioid drug., 170.18, cm, 12/17/23 10:17:00... Start Date: 12/23/23 Status: Ordered metoprolol 25 mg oral tablet 25 mg, Tablet, By Mouth, 01/19/24 9:00:00 EDT Start Date: 01/19/24 Stop Date: 01/19/24 Status: Completed metoprolol 50 mg oral tablet 50 mg, 1, tablet, By Mouth, 2 times a day, # 180 tablet, Refills 3, Tot. Refills 3, Maintenance, 10/27/23 11:05:00 EST, [id number] fill upon patientrequest if the prescription is for a schedule II op... Start Date: 10/27/23 Status: Ordered nystatin topical 733479 u/gm powder See Instructions, APPLY TOPICALLY 3 TIMES A DAY TO RASH, # 60 Gm, 0 Refills, Maintenance, 12/23/23 17:15:00 EST, [facility]ORE [id number], 30, APPLY TOPICALLY 3 TIMES A DAY TO RASH, 170.18, cm, 12/17/23 10:17:00 EST, Height, 127.2, kg, 10/02/23 3:00:00 EST, Start Date: 12/23/23 Status: Ordered nystatin topical 468782 u/gm powder 1 application, Topically, 3 times [...] 12/23/23 17:13:00 EST, ECCapsule, [facility]/pharmacy #[id number], Partial fill upon patient request [...] Exam Date Time Procedure Performing Provider Status 01/17/24 3:31 PM XR Hip w/Pelvis 2-3 View Left Renee Uribe; Auth (Verified) Notes: (XR Hip w/Pelvis 2-3 View Left) Reason For Exam: Trauma RESULT: XR Hip w/Pelvis 2-3 View Left XR Hip w/Pelvis 2-3 View Left Hx of Present Illness: FALL AMS; Reason: Trauma; Clinical Question(s): Fracture COMPARISON: Pelvis and right hip, 10/01/2023. FINDINGS: There is no evidence of fracture or dislocation. Normal hips for age with minimal acetabular spurring. Normal sacroiliac joints for age. Mild to moderate degenerative changes of the visualized lower lumbar spine. Surgical clips project over the right symphysis pubis. IMPRESSION: No evidence of injury. WSN: [id number] Ordering Physician: Litzy Reyna Dictated By: Shaun Shepherd MD Dictated Date/Time: 01/17/24 3:55 pm Reviewed By: Shaun Shepherd MD Signed By: Shaun Shepherd MD Signed Date/Time: 01/17/24 3:55 pm Transcribed By: JULIA Transcribed Date/Time: 01/17/24 3:53 pm * Exam Date Time Procedure Performing Provider Status 01/17/24 3:31 PM Chest 2 Views Frontal and Lat Renee Uribe ramona; Auth (Verified) Notes: (Chest 2 Views Frontal and Lat) Reason For Exam: Other: RESULT: Chest 2 Views Frontal and Lat Chest 2 Views Frontal and Lat Hx of Present Illness: FALL AMS; Reason: Other:; Clinical Question(s): Trauma COMPARISON: None. FINDINGS: LINES AND TUBES: None. LUNGS AND PLEURA: Clear lungs. Normal pulmonary vascularity. No pleural effusion. No pneumothorax. HEART, MEDIASTINUM AND MING: Heart is normal in size. Midline lower mediastinal density, suggests hiatal hernia, incompletely characterized. BONES AND SOFT TISSUES: Moderate degenerative changes of both shoulders including evidence of loose bodies and calcific tendinopathy. IMPRESSION: No acute abnormality. WSN: [id number] Ordering Physician: Litzy Reyna Dictated By: Shaun Shepherd MD Dictated Date/Time: 01/17/24 3:52 pm Reviewed By: Shaun Shepherd MD Signed By: Shaun Shepherd MD Signed Date/Time: 01/17/24 3:52 pm Transcribed By: JULIA Transcribed Date/Time: 01/17/24 3:49 pm * Exam Date Time Procedure Performing Provider Status 01/17/24 2:12 PM US Doppler Ext Lower Venous Left Praful Haq; Caio (Verified) Notes: (US Doppler Ext Lower Venous Left) Reason For Exam: Pain/Tenderness Extremities RESULT: US Doppler Ext Lower Venous Left US Doppler Ext Lower Venous Left Hx of Present Illness: FALL AMS; Reason: Pain Tenderness Extremities; Clinical Question(s): Thrombus COMPARISON: None IMAGING TECHNIQUE: Ultrasound of the veins from the groin through the calf was performed using grayscale, color, and spectral Doppler ultrasound assessing for complete compressibility and normal flowcharacteristics. FINDINGS: Common femoral vein: Patent. No thrombosis. Femoral vein: Patent. No thrombosis. Popliteal vein: Patent. No thrombosis. Gastrocnemius veins: The visualized portions are patent without evidence of thrombosis. Peroneal veins: The visualized portions are patent without evidence of thrombosis. Posterior tibial veins: The visualized portions are patent without evidence of thrombosis. Contralateral common femoral vein: Patent. No thrombosis. OTHER FINDINGS: There is a complicated popliteal fossa cyst, which measures 2.2 x 1.5 x 1.9 cm. IMPRESSION: No evidence of deep venous thrombosis in the left lower extremity. Complicated popliteal fossa cyst measuring up to 2.2 cm. WSN: [id number] Ordering Physician: Litzy Reyna Dictated By: Radha Correa MD, I Dictated Date/Time: 01/17/24 2:19 pm Reviewed By: Radha Correa MD, I Signed By: Radha Correa MD, I Signed Date/Time: 01/17/24 2:19 pm Transcribed By: JULIA Transcribed Date/Time: 01/17/24 2:17 pm * Exam Date Time Procedure Performing Provider Status 01/17/24 10:[address] Cervical Spine W/O Contrast Princess Bauer; Auth (Verified) Notes: (CT Cervical Spine W/O Contrast) Reason For Exam: Neck trauma, dangerous injury mechanism;Other: RESULT: CT Cervical Spine W/O Contrast CT Head/Brain W/O Contrast, CT Cervical Spine W/O Contrast CLINICAL INDICATION: Hx altered mental status. Fall. PRIOR EXAMS: 10/01/2023. TECHNIQUE: Incremental CT without contrast through the head was formatted in axial and coronal plane. Spiral CT without contrast through the cervical spine was formatted in 3 planes. Automatic tube modulation was used for the cervical spine and iterative dose reconstruction was used for both the head and cervical spine to optimize scan parameters and image quality. 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 No new infarct. There is no intracerebral hemorrhage. There is no mass. VENTRICLES AND SULCI: The ventricles and sulci are symmetrical and normal for the patient's age.. WHITE MATTER: Mild white matter abnormality. EXTRA AXIAL SPACES: There is no abnormal epidural, subdural, or subarachnoid blood or fluid. SKULL: There is no skull fracture.. PARANASAL SINUSES: Clear. TEMPORAL BONES: The mastoid air cells are clear, as are the middle ear cavities. CERVICAL VERTEBRAL BODIES: There is no fracture. There is no focal bony lesion.. ALIGNMENT OF CERVICAL SPINE: The cervical vertebral bodies are in normal alignment.. CERVICAL DEGENERATIVE CHANGES: Multilevel advanced degenerative changes. LUNG APICES: No pneumothorax. IMPRESSION: HEAD 1. No acute intracranial abnormality. 2. No skull fracture. CERVICAL SPINE: 1. There is no fracture. There is no focal bony lesion. 2. Normal alignment. 3. Multilevel facet degenerative change. WSN: [id number] Ordering Physician: John Her Dictated By: Bob Gilbert MD Dictated Date/Time: 01/17/24 10:53 a Reviewed By: Bob Gilbert MD Signed By: Bob Gilbert MD Signed Date/Time: 01/17/24 10:53 am Transcribed By: JULIA Transcribed Date/Time: 01/17/24 10:44 am * Exam Date Time Procedure Performing Provider Status 01/17/24 10:[address] Head/Brain W/O Contrast Jarad Bauer; Auth (Verified) Notes: (CT Head/Brain W/O Contrast) Reason For Exam: Headache(s) RESULT: CT Head/Brain W/O Contrast CT Head/Brain W/O Contrast, CT Cervical Spine W/O Contrast CLINICAL INDICATION: Hx altered mental status. Fall. PRIOR EXAMS: 10/01/2023. TECHNIQUE: Incremental CT without contrast through the head was formatted in axial and coronal plane. Spiral CT without contrast through the cervical spine was formatted in 3 planes. Automatic tube modulation was used for the cervical spine and iterative dose reconstruction was used for both the head and cervical spine to optimize scan parameters and image quality. 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 No new infarct. There is no intracerebral hemorrhage. There is no mass. VENTRICLES AND SULCI: The ventricles and sulci are symmetrical and normal for the patient's age.. WHITE MATTER: Mild white matter abnormality. EXTRA AXIAL SPACES: There is no abnormal epidural, subdural, or subarachnoid blood or fluid. SKULL: There is no skull fracture.. PARANASAL SINUSES: Clear. TEMPORAL BONES: The mastoid air cells are clear, as are the middle ear cavities. CERVICAL VERTEBRAL BODIES: There is no fracture. There is no focal bony lesion.. ALIGNMENT OF CERVICAL SPINE: The cervical vertebral bodies are in normal alignment.. CERVICAL DEGENERATIVE CHANGES: Multilevel advanced degenerative changes. LUNG APICES: No pneumothorax. IMPRESSION: HEAD 1. No acute intracranial abnormality. 2. No skull fracture. CERVICAL SPINE: 1. There is no fracture. There is no focal bony lesion. 2. Normal alignment. 3. Multilevel facet degenerative change. WSN: [id number] Ordering Physician: John Her Dictated By: Bob Gilbert MD Dictated Date/Time: 01/17/24 10:53 a Reviewed By: Bob Gilbert MD Signed By: Bob Gilbert MD Signed Date/Time: 01/17/24 10:53 am Transcribed By: JULIA Transcribed Date/Time: 01/17/24 10:44 am Vital Signs Most recent to oldest [Reference Range]: 1 2 3 Height 170 cm (01/19/24 2:19 PM) 170 cm (01/19/24 7:58 AM) 170 cm (01/19/24 2:55 AM) Weight 118.6 kg (01/19/24 4:32 AM) 119 kg (01/17/24 7:49 PM) 136 kg (01/17/24 9:30 AM) Oxygen Saturation [94-100 %] 95 % (01/19/24 2:19 PM) 100 % (01/19/24 7:58 AM) 97 % (01/19/24 2:55 AM) Pulse Rate [55-90 bpm] 85 bpm (01/19/24 2:19 PM) 76 bpm (01/19/24 10:04 AM) 76 bpm (01/19/24 7:58 AM) Body Mass Index [18.5-24.99 kg/m2] 47.06 kg/m2 *>HHI* (01/17/24 9:15 AM) Blood Pressure [90-138/55-84 mm Hg] 124/93mm Hg (01/19/24 2:19 PM) 137/99mm Hg (01/19/24 10:04 AM) 137/99mm Hg (01/19/24 2:55 AM) Respiratory Rate [16-30 br/min] 16 br/min (01/19/24 2:19 PM) 18 br/min (01/19/24 11:05 AM) 18 br/min (01/19/24 10:05 AM) Temperature [96.8-100.4 DegF] 97.6 DegF (01/19/24 2:19 PM) 97.6 DegF (01/19/24 7:58 AM) 97.5 DegF (01/19/24 2:55 AM) Mode of Delivery (Oxygen) Room air (01/19/24 2:19 PM) Room air (01/19/24 7:58 AM) Room air (01/19/24 2:55 AM) Blood pressure sites Arm, right (01/19/24 2:19 PM) Arm, right (01/19/24 7:58 AM) Arm, right (01/19/24 2:55 AM) Temperature Route Temporal (01/19/24 2:19 PM) Temporal (01/19/24 7:58 AM) Temporal (01/19/24 2:55 AM) Dry Weight 136 kg (01/17/24 9:30 AM) 136 kg (01/17/24 9:15 AM) Weight Obtained Via Bed scale (01/19/24 4:32 AM) Bed scale (01/17/24 7:49 PM) Social History Social History Type Response Smoking Status Former smoker, quit more than 30 days ago; Other: quit 1973 6 yrs toal 11/13 6; Number of years: 6; Total pack years: 2; entered on: 07/03/23 Sex Female Admission evaluation note * Bin SUMMERS, Ehsan Erickson: PERFORM, MODIFY, MODIFY Event Display: Admission Note Authored Date: Patient: ??BEN GARIBAY ? Age:??73 Years?Sex:??Female?:??1950?? Chief Complaint/Reason for Consultation BIBA from independent living facility for unwitnessed fall. unknown LOC. PT reported + HS to the back of head on wooden dresser. PT is weak unable to stand, ??increased AMS, increased confusion, c/o left knee pain. LWK 0700 today. c- collar in place. History of Present Illness 73-year-old female patient with a medical history significant for morbid obesity, hypertension, hyperlipidemia, diabetes mellitus, recurrent falls, atrial fibrillation on Eliquis, gastroesophageal reflux disease, chronic anemia, obstructive sleep apnea, resting tremor, anxiety and depression disorders, borderline personality disorder who presented to the emergency department for evaluation after a fall and being admitted with concern for syncope. ?? Patient is not entirely clear about the event - she reports walking to the bathroom and falling down - she thinks her knee has given up on her but she can not till if she felt dizzy, light headed or had syncope. She called the assisted living facility staff who called the ambulance. ?? In the emergency department she has been afebrile, hemodynamic stable, on room air with good good saturation.?? Labs including complete blood cell count, basic metabolic panel, liver biochemical profile were largely unremarkable. Troponin was 16 twice. UA positive for LE and WBC. EKG showed atrial fibrillation with no acute ischemic changes.? CT head and cervical spine with no acute intracranial abnormalities.?? X-ray with no fracture.??Stable no acute cardiopulmonary process.?? Lower extremity Doppler with no evidence of deep venous thrombosis. Review of Systems Constitutional:?No weight loss, fever, chills, weakness or fatigue. Cardiovascular:??No chest pain,pressure or discomfort. No palpitations or pedal edema. Respiratory:??No shortness of breath, cough or sputum production. Gastrointestinal:?No anorexia, nausea, vomiting or diarrhea. No abdominal pain or blood in stool. Genitourinary: No burning micturition. No urinary frequency or incontinence. Neurologic: No headache, dizziness, syncope, unilateral weakness, ataxia, numbness or tingling in the extremities. No change in bowel or bladder control. Musculoskeletal: No muscle pain, back pain, joint pain or stiffness. Hematologic: No bleeding or bruising. Lymphatics: No enlarged lymph nodes. Psychiatric: No depression or anxiety. Endocrine: No reports of sweating. No cold or heat intolerance. No polyuria or polydipsia. All other systems were reviewed and are negative.?? Objective Vital Signs?? Temperature: 98.1 DegF (01/17/24 19:45:00) Temperature Route: Temporal (01/17/24 19:45:00) Pulse Rate:??99 bpm??High (01/17/24 19:45:00) Respiratory Rate: 20 br/min (01/17/24 19:45:00) Systolic Blood Pressure:??151 mm Hg??High (01/17/24 19:45:00) Diastolic Blood Pressure:??94 mm Hg??High (01/17/24 19:45:00) Blood pressure sites: Arm, right (01/17/24 19:45:00) Mean Arterial Pressure: 113 mm Hg (01/17/24 19:45:00) Pulse Pressure: 57 mm Hg (01/17/24 19:45:00) Oxygen Saturation: 100 % (01/17/24 19:45:00) Mode of Delivery (Oxygen): Room air (01/17/24 19:45:00) Early Warning Score: 0 (01/17/24 19:49:37) ? Physical Exam Constitutional: Alert, in no acute distress. Head: Normocephalic. Eyes: Pupils are equal, round and reactive to light. Extraocular muscles intact. No pallor or scleral icterus Ear, Nose and Throat: mucous membranes moist. Ears and nose - no obvious deformities. Neck: No JVD or bruits. Respiratory:??Clear to auscultation. No wheezing or rhonchi.??No use of accessory muscles. Cardiovascular:??S1 S2 regular. No murmurs, rubs or gallops. Gastrointestinal:??Abdomen soft, non-tender, non-distended. Extremities: bilateral lower extremity wounds -??see photos Neurologic:??AAOx3, Cranial nerves II-XII grossly intact. Speech normal, no facial droop. No focal neurological deficits. Moves all extremities spontaneously. Musculoskeletal:??No gross deformities on inspection. Psychiatric: Normal mood and affect. Images left foot right foot right heel Assessment/Plan 73-year-old female patient with a medical history significant for morbid obesity, hypertension, hyperlipidemia, diabetes mellitus, recurrent falls, atrial fibrillation on Eliquis, gastroesophageal reflux disease, chronic anemia, obstructive sleep apnea, resting tremor, anxiety and depression disorders, borderline personality disorder who presented to the emergency department for evaluation after a fall and being admitted with concern for syncope. ?? Diagnoses Dehydration, mild ??(E86.0) 2. ??Recurrent falls ??(R29.6) 3. ??Syncope ??(R55) 3. ??Syncope ??(R55) 4. ??Abnormal urinalysis ??(R82.90) 5. ??Pyuria ??(R82.81) 6. ??Multiple wounds ??(T07.XXXA) 7. ??Hypertension ??(I10) 8. ??Hyperlipidemia ??(E78.5) 9. ??Diabetes mellitus ??(E11.9) 10. ??Atrial fibrillation ??(I48.91) 10. ??Atrial fibrillation ??(I48.91) 11. ??GERD (gastroesophageal reflux disease) ??(K21.9) 12. ??Obstructive sleep apnea ??(G47.33) 13. ??Anxiety ??(F41.9) 14. ??Depression ??(F32.A) 15. ??Borderline personality disorder ??(F60.3) ?? Recurrent falls (R29.6):??- Syncope (R55):??- Patient with history of recurrent falls who presents with fall and concern for syncope. Patient is not entirely clear about the event - she reports walking to the bathroom and falling down - she thinks her knee has given up on her but she can not till if she felt dizzy, light headed or had syncope. CT head and cervical spine with no acute intracranial abnormalities. Hip X-ray with no fracture. Chest X-ray with no acute cardiopulmonary process. - engine monitor. - echocardiogram. - PT evaluation. ?? Abnormal urinalysis (R82.90):??- Pyuria (R82.81):??- UA positive for LE and WBC - no leukocytosis, fever or urinary symptoms. - f/u urine culture. ?? Multiple wounds (T07.XXXA):??She has multiple wounds over bilateral foot - she reports having them for years - she reports picking on her feet causing her to have those wound. - Wound care consult. - podiatry evaluation as out patient. ?? Hypertension (I10):??Unclear if she is taking any antihypertensive medications at home - lisinoprillast filled in October 2023 - need to clarify in AM. ?? Hyperlipidemia (E78.5):??Continue home atorvastatin. ?? Diabetes mellitus (E11.9):??Insulin sliding scale. ?? Atrial fibrillation (I48.91):??Continue home metoprolol and Eliquis. ?? Obstructive sleep apnea (G47.33):??CPAP at night. ?? Anxiety (F41.9):??- Depression (F32.A):??- Borderline personality disorder (F60.3):??- - continue home doxepin, duloxetine, gabapentin, lamotrigine, trazodone. ?? VTE Prophylaxis:??on Eliquis ?VTE Prophylaxis Assessment:??VTE Prophylaxis Ordered ?? Code Status:??full code. ?Order Code Status:??Code Status Ordered Histories Allergies Allergies ?(Active and Proposed Allergies Only) Myrbetriq? (Severity: Unknown severity, Onset: Unknown) ?Reactions: Hallucinations ? Past Medical History/Problem List Active Problems??(29) AF (paroxysmal atrial fibrillation) Anemia Atrial fibrillation Martinez esophagus Borderline personality disorder Chronic Pain Chronic rhinosinusitis Diabetes type 2, controlled Diabetic foot infection Essential hypertension Fecal incontinence GERD - Gastro-esophageal reflux disease Major depression in partial remission Medicare annual wellness visit, subsequent Muscular deconditioning Obstructive sleep apnea on CPAP Osteoarthritis of both knees Peripheral arterial disease Rectocele Recurrent falls Resting tremor Severe obesity Sleep apnea Suicide attempt Toxic metabolic encephalopathy Type 2 diabetes mellitus with peripheral neuropathy Ulcer of toe due to diabetes Urinary incontinence, mixed Wound of foot ? Past Surgical History Laparoscopic salpingo-oophorectomy Correction of hammer toe Hysterectomy Gutierrez Breast reduction SILVER - Total abdominal hysterectomy ? Social History Alcohol Details:??Use: Past. Employment/School [...] of years:. ??Total pack years: 2. ? Family History Mother (): Mitral valve disorder Father (): Cancer Sister: Diabetes mellitus; Hypertension Brother: Hypertension ? Medications Home Medications Acetaminophen (acetaminophen 325 mg oral tablet)?TAKE 2 TABLETS (650 MG)ORALLY EVERY 6 HOURS NEEDED FOR PAIN, MILD (PAIN SCALE 1-3) Amlodipine (amLODIPine 2.5 mg oral tablet)?1?tab(s)?By Mouth?Daily apixaban (Eliquis 5 mg oral tablet)?1?tab(s)?5?Milligram?By Mouth?2 times a day apixaban (Eliquis 5 mg oral tablet)?See Instructions?TAKE 1 TABLET BY MOUTH TWICE A DAY Atorvastatin (atorvastatin 40 mg oral tablet)?1?tab(s)?40?Milligram?By Mouth?Daily Clonazepam (clonazePAM 0.5 mg oral tablet)?0.5?tab(s)?0.25?Milligram?By Mouth?Daily?as needed?Anxiety Clonazepam (clonazePAM 0.5 mg oral tablet)?0.5?Milligram?By Mouth?Daily at bedtime Duloxetine (Cymbalta 60 mg oral enteric coated capsule)?See Instructions?2 capsule By Mouth Daily Durable Medical Equipment (Four-wheeled walker with seat and handbrakes)?See Instructions?Dx:Parkinsonism (G20) Durable Medical Equipment (Knee Support)?See Instructions?wear knee brace for OA both knees Estradiol Topical (estradiol 0.1 mg/g vaginal cream)?1?gram?Vaginally?Daily at bedtime Gabapentin (gabapentin 300 mg oral capsule)?See Instructions?1 ??capsule in am 2 at bedtime HydrOXYzine (hydrOXYzine hydrochloride 25 mg oral tablet)?1?tab(s)?25?Milligram?By Mouth?4 times a day Lamotrigine (Lamictal 100 mg oral tablet)?3 tab?By Mouth?Daily at bedtime Loperamide (loperamide 2 mg oral capsule)?2?Milligram?1?capsule?By Mouth?Every 4 hours Meclizine (meclizine 25 mg oral tablet)?TAKE 1 TABLET BY MOUTH THREE TIMES A DAY NEEDED Metformin?500?Milligram?By Mouth?2 times a day Metformin (metFORMIN 500 mg oral tablet)?1?tab(s)?500?Milligram?By Mouth?2 times a day Metoprolol (metoprolol 25 mg oral tablet)?50?Milligram?By Mouth?2 times a day Metoprolol (metoprolol 50 mg oral tablet)?50?Milligram?1?tablet?By Mouth?2 times a day Milk of Magnesia?1,200?Milligram?By Mouth?3 times a day Nystatin Topical (nystatin topical 733804 u/gm powder)?1?buzz?Topically?3 times a day?to rash Nystatin Topical (nystatin topical 075471 u/gm powder)?See Instructions?APPLY TOPICALLY 3 TIMES A DAY TO RASH Omeprazole (omeprazole 40 mg oral enteric coated capsule)?1?capsule?40?Milligram?By Mouth?Daily Omeprazole (omeprazole 40 mg oral enteric coated capsule)?1?capsule?40?Milligram?By Mouth?Daily vibegron (Gemtesa 75 mg oral tablet)?1?tab(s)?75?Milligram?By Mouth?Daily ? Results Recent Labs BLOOD COUNT & DIFF WBC 8.0 k/mm3 ()?? 01/17/2024 10:19 RBC 4.55 m/mm3 ()?? 01/17/2024 10:19 Hgb 12.5 Gm/dL ()?? 01/17/2024 10:19 Hct 38.9 % ()?? 01/17/2024 10:19 MCV 85.5 femtoliters ()?? 01/17/2024 10:19 MCH 27.5 pg ()?? 01/17/2024 10:19 MCHC 32.1 g/dL (Low)?? 01/17/2024 10:19 Platelet Count 330 k/mm3 ()?? 01/17/2024 10:19 RDW-SD 53.4 femtoliters (High)?? 01/17/2024 10:19 MPV 9.1 femtoliters (Low)?? 01/17/2024 10:19 Nucleated RBC (Automated) 0.0 #/100 WBC'S ()?? 01/17/2024 10:19 Abs. NRBC 0.0 k/mm3 ()?? 01/17/2024 10:19 Abs. Neut 5.2 k/mm3 ()?? 01/17/2024 10:19 Abs. Lymph 1.8 k/mm3 ()?? 01/17/2024 10:19 Abs. [place] 0.8 k/mm3 ()?? 01/17/2024 10:19 Abs. Eo 0.1 k/mm3 ()?? 01/17/2024 10:19 Abs. Baso 0.0 k/mm3 ()?? 01/17/2024 10:19 Neut % 65.5 % ()?? 01/17/2024 10:19 Lymph % 22.4 % ()?? 01/17/2024 10:19 [place] % 9.5 % ()?? 01/17/2024 10:19 Eos % 1.6 % ()?? 01/17/2024 10:19 Baso % 0.4 % ()?? 01/17/2024 10:19 Imm Gran 0.6 % ()?? 01/17/2024 10:19 Abs. Imm Gran 0.1 k/mm3 ()?? 01/17/2024 10:19 ?? BLOOD GAS pH, Venous 7.33 ()?? 01/17/2024 10:19 ?? CARDIAC CK, Total 112 units/L ()?? 01/17/2024 10:19 High Sensitivity Troponin (HSTnT) 16 ng/L (High)?? 01/17/2024 20:43 ?? CHEM GENERAL Sodium 144 mmol/L ()?? 01/17/2024 10:19 Potassium 3.8 mmol/L ()?? 01/17/2024 10:19 Chloride 105 mmol/L ()?? 01/17/2024 10:19 Bicarbonate Level 26 mmol/L ()?? 01/17/2024 10:19 Anion Gap 13 ()?? 01/17/2024 10:19 Glucose Level 114 mg/dL (High)?? 01/17/2024 10:19 Glucose, POC 103 mg/dL (High)?? 01/17/2024 10:22 Beta Hydroxybutyrate 0.08 mmol/L ()?? 01/17/2024 10:19 BUN 18 mg/dL ()?? 01/17/2024 10:19 Creatinine-Blood 1.0 mg/dL ()?? 01/17/2024 10:19 Estimated GFR Creatinine 60 ML/MIN/1.73 M2 ()?? 01/17/2024 10:19 Calcium 9.8 mg/dL ()?? 01/17/2024 10:19 Calcium, Ionized pH Corrected 1.28 mmol/L ()?? 01/17/2024 10:19 Magnesium 1.8 mg/dL ()?? 01/17/2024 10:19 Protein, Total 6.6 Gm/dL ()?? 01/17/2024 10:19 Albumin 4.1 Gm/dL ()?? 01/17/2024 10:19 AG Ratio 1.6 ()?? 01/17/2024 10:19 Alkaline Phosphatase 83 units/L ()?? 01/17/2024 10:19 AST (SGOT) 12 units/L ()?? 01/17/2024 10:19 ALT (SGPT) 8 units/L ()?? 01/17/2024 10:19 Bilirubin, Total 0.4 mg/dL ()?? 01/17/2024 10:19 ?? UA/URINALYSIS Appear/Color, Urine LIGHT YELLOW ()?? 01/17/2024 14:32 Specific [place], Urine 1.011 ()?? 01/17/2024 14:32 pH, Urine 5.5 ()?? 01/17/2024 14:32 Albumin, Urine NEGATIVE ()?? 01/17/2024 14:32 Glucose, Urine NEGATIVE ()?? 01/17/2024 14:32 Ketones, Urine NEGATIVE ()?? 01/17/2024 14:32 Bilirubin, Urine NEGATIVE ()?? 01/17/2024 14:32 Hemoglobin, Urine NEGATIVE ()?? 01/17/2024 14:32 Nitrite, Urine NEGATIVE ()?? 01/17/2024 14:32 Leukocyte, Urine 2+ (Abnormal)?? 01/17/2024 14:32 Urobilinogen NORMAL mg/dL ()?? 01/17/2024 14:32 WBC's, Urine 12 /HPF (High)?? 01/17/2024 14:32 RBC's, Urine NONE SEEN /HPF ()?? 01/17/2024 14:32 Squamous Epith 2 /HPF ()?? 01/17/2024 14:32 Mucus SLIGHT /LPF ()?? 01/17/2024 14:32 Hold Urine Culture Testing available 48 hours from time of collection. ()?? 01/17/2024 14:32 ?? URINE OTHER Est Creatinine Clearance 49.32 mL/min ()?? 01/17/2024 11:17 ? EKG study * Event Display: EKG Authored Date: * Event Display: ECG 12-Lead Authored Date: Please click on pdf link to open report * Event Display: ECG 12-Lead Authored Date: Ventricular Rate: 72 BPM QRS Duration: 96 ms Q-T Interval: 400 ms QTC Calculation(Bazett): 438 ms R [place]: -20 degrees T [place]: -[address] and T wave abnormality, consider anterior ischemia Abnormal ECG When compared with ECG of 01-OCT-2023 09:00, T wave inversion now evident in Anterior leads Confirmed by RIANNA WHITE MD ([id number]) on 01/17/2024 2:53:12 PM [place]: RIANNA WHITE MD Heart * Event Display: Echocardiogram - Complete Authored Date: [id number] Transthoracic Echocardiography Report (TTE) Patient Demographics Patient Name BEN GARIBAY Date of Study 01/19/2024 Corporate Gender Female Facility Race Ethnicity Date of 1950 Height: 66.93 inches Age 73 year(s) Weight: 262.35 pounds Accession Number [id number] BSA: 2.27 m2 Room Number [id number] BMI: 41.18 kg/m2 Referring Physician Bin Erickson Interpreting Kelby Smith MD, MD Physician Access Specialist Aleksandr Bell [facility] Indications Syncope. Clinical History Obesity. HTN. HLD. Diabetes. HTN. Study Data Type of Study TTE procedure:Echo Complete-(Doppler, Colorflow) with Contrast. Procedure Information:Definity was administered by [employer] . Study Date01/19/2024 Start Time: 10:15 AM [place] [facility] [place] Status: Bedside Patient Status: Routine Technical Quality: Poor due to body habitus. Blood Pressure:134/87 mmHg EKG: Atrial fibrillation HR: 67 bpm Contrast Medium: Definity. Amount - 2 ml 2D Measurements RV Diastolic Dimension: 5.03 cm AO Root Dimension: 4.04 cm LA Dimension: 4.1 cm LVOT Stroke Volume: 58.6 ml LA ESV (BP):120.4 ml Stroke Volume Index25.81 ml/m2 LA ESV Index: 53 ml/m2 Cardiac Index:1.73 l/min/m2 LVOT: 2.16 cm Ascending Aorta:3.3 cm Doppler Measurements AV Peak Velocity: 116 cm/s AV Peak Gradient: 5.38 mmHg LVOT Peak Velocity: 85 cm/s LVOT VTI16 cm PV Peak Velocity: 68.4 cm/s PV Peak Gradient: 1.87 mmHg Cardiac Anatomy Left Ventricle/Interventricular Septum The left ventricle is poorly visualized but improved with contrast enhancement. The left ventricular size is normal. Wall thickness can not be determined. The LV systolic function is low normal . The left ventricular ejection fraction is 50-55 %. There are no definite regional wall motion abnormalities. Unable to assess diastolic function due to atrial fibrillation . Left Atrium/Interatrial Septum The left atrium is severely dilated. Aortic Valve The aortic valve is is poorly visualized. There is no aortic stenosis. There is no aortic regurgitation. Mitral Valve The mitral valve is poorly visualized. Mitral leaflet excursion is normal . There is trace to mild mitral regurgitation. Aorta The ascending aorta and aortic root are normal in size for BSA. Right Ventricle The right ventricle is poorly visualized. The right ventricle is dilated. Right ventricular systolic function is reduced. Right Atrium The right atrium is dilated. Pulmonic Valve The pulmonic valve appears grossly normal. Tricuspid Valve The tricuspid valve appears normal . There is trace tricuspid valve regurgitation. Pumonary Artery An accurate pulmonary artery pressure could not be obtained. Venous Structures The inferior vena cava is poorly visualized. The inferior vena cava appears dilated. Pericardium/Extracardiac There is no significant pericardial effusion. Summary The left ventricle is poorly visualized but improved with contrast enhancement. The left ventricular size is normal. Wall thickness can not be determined. The LV systolic function is low normal . The left ventricular ejection fraction is 50-55 %. There are no definite regional wall motion abnormalities. Unable to assess diastolic function due to atrial fibrillation . The left atrium is severely dilated. The right ventricle is poorly visualized. The right ventricle is dilated. Right ventricular systolic function is reduced. The tricuspid valve appears normal . There is trace tricuspid valve regurgitation. Comparison No prior study available for comparison. Signature * Event Display: Echocardiogram - Complete Authored Date: Cardiology * Event Display: Cardiac Rhythm Strips Authored Date: * Event Display: Cardiac Rhythm Strips Authored Date: * Event Display: Cardiac Rhythm Strips Authored Date: Hospital Progress note * Amita Conley RN: PERFORM, SIGN, VERIFY Event Display: Progress Note Hospital Authored Date: [id number] Patient: BEN GARIBAY Age: 73 years Sex: Female : 1950 Associated Diagnoses: None Author: Amita Conley RN Findings Narrative/Incidental Patient A&Ox4, VSS, RA - CPAP worn at night for SELMA, A. fib on tele, trace edema on BLE. Patient has multiple diabetic ulcers on both feet - will follow up outpatient. Patient was discharged 01/19/2024 at 1725 and left unit via wheelchair w/family. . Discharge Information Case Management Discharge Plan : Case Management Discharge Plan Data 01/19/2024 17:26 EDT Discharge Level of Care at Discharge Homehealth/VNA Discharge VNA/Hospice/Home Care [facility] [phone] 01/19/2024 11:40 EDT Discharge Level of Care at Discharge Homehealth/VNA Discharge VNA/Hospice/Home Care [facility] [phone] Agency Escrow Assistant #1 Intake Service Categories #1 Occupational Therapy, Physical Therapy, [facility] Service Comments #1 A nurse will call you to arrange a visit with you at your home. If you do not hear from agency, please call them. Pulmonary Rehab Discharge : Pulmonary Rehab Discharge Status 01/19/2024 3:30 EDT CPAP/BiPAP Mask Type Full CPAP/BiPAP Mask Size Medium 01/18/2024 23:57 EDT CPAP/BiPAP Mask Type Full CPAP/BiPAP Mask Size Medium 01/18/2024 4:47 EDT CPAP/BiPAP Mask Type Full CPAP/BiPAP Mask Size Medium 01/18/2024 0:16 EST CPAP/BiPAP Mask Type Full CPAP/BiPAP Mask Size Medium Rehabilitation Discharge : Rehab Discharge Index 01/18/2024 8:35 EDT Comments on treatment indicated 73F p/w fall and adm for syncope. UA positive. PT indicated to improve strength, endurance, balance, and gait. Walker: distance 20-50 Distance pt will ambulate 50 Full chart review completed Yes Hospital course Hospital course Other findings Received in supine. Indep bed mob and transfers, good use of UE's for support to theRW. No dizziness. Educated re: pausing between transitions to assess for dizziness including LE ther ex on EOB. Good balance at the RW in standing. Pre-gait marching Plan of care PT Gait training, Transfer training, Therapeutic exercise, Functional Activities, Balance training * Jakob SUMMERS, Darius P: PERFORM Event Display: Progress Note Hospital Authored Date: Patient: ??BEN GARIBAY ? Age:??73 Years?Sex:??Female?:??1950?? Subjective 01/17: Accepted patient under my care at 7AM. Chart reviewed, saw and examined patient.?Patient awaiting echocardiogram.?? PT eval and??orthostatic vital signs ordered. ??She is asymptomatic at rest.?? BP is labile. ?? Review of Systems Constitutional:??denies F/C Cardiovascular:?no CP or palpitations Respiratory:??no SOB or significant cough Gastrointestinal:??no N/V/D :??no complaints Objective Measurements?? Height: 170 cm (01/18/24) Weight: 119 kg (01/17/24) Dry Weight: 136 kg (01/17/24) Body Mass Index:??47.06 kg/m2??Critical (01/17/24) ? Vital Signs?? Temperature: 96.9 DegF (01/18/24 13:41:00) Temperature Route: Temporal (01/18/24 13:41:00) Pulse Rate:??91 bpm??High (01/18/24 13:41:00) Pulse Rate, Lyin bpm (01/18/24 16:15:00) Systolic Blood Pressure, Lyin mm Hg (01/18/24 16:15:00) Diastolic Blood Pressure, Lyin mm Hg (01/18/24 16:15:00) Pulse Rate, Sittin bpm (01/18/24 16:15:00) Systolic Blood Pressure, Sittin mm Hg (01/18/24 16:15:00) Diastolic Blood Pressure, Sittin mm Hg (01/18/24 16:15:00) Pulse Rate, Standin bpm (01/18/24 16:15:00) Systolic Blood Pressure, Standin mm Hg (01/18/24 16:15:00) Diastolic Blood Pressure, Standin mm Hg (01/18/24 16:15:00) Respiratory Rate: 18 br/min (01/18/24 13:41:00) Systolic Blood Pressure: 115 mm Hg (01/18/24 13:41:00) Diastolic Blood Pressure:??94 mm Hg??High (01/18/24 13:41:00) Blood pressure sites: Arm, right (01/18/24 13:41:00) Mean Arterial Pressure: 101 mm Hg (01/18/24 13:41:00) Pulse Pressure: 21 mm Hg (01/18/24 13:41:00) Oxygen Saturation: 98 % (01/18/24 13:41:00) Mode of Delivery (Oxygen): Room air (01/18/24 13:41:00) Early Warning Score: 2 (01/18/24 13:43:25) ? Pain Scores?? No qualifying data available. ? Intake/Output? 01/16 09:12 01/17 07:00 01/16 07:00 01/15 07:00 01/14 07:00 ?? 01/17 16:22 01/17 16:22 01/17 06:59 01/16 06:59 01/15 06:59 Intake ?540 ?540 ?0 ?0 ?0 Output ?0 ?0 ?0 ?0 ?0 Net Total ?540 ?540 ?0 ?0 ?0 ? Urine Count ?2 ?2 ?0 ?0 ?0 ? Physical Exam Constitutional: Alert, in no acute distress. Head EENT: PERRL.??NCAT. Neck: Supple. No obvious LAD. Respiratory: CTAB. No use of accessory muscles. Cardiovascular: S1S2 present. No obvious JVD. Gastrointestinal: Abdomen soft, non-tender, non-distended. Bowel sounds present. Genitourinary: No CVA tenderness. Genital exam deferred. Extremities: No lower extremity pitting??edema. No cyanosis or clubbing. Neurologic: Alert, generally appropriate. Speech normal. No gross focal neurological deficits. _ Inpatient Medications Medications (27) Active SCHEDULED: (14) Apixaban 5 mg Tablet (Apixaban Tablet) ??5 mg, By Mouth, 2 times a day Atorvastatin 40 mg Tablet (atorvastatin 40 mg oral tablet) ??40 mg, By Mouth, Daily at bedtime BuPROPion XL 300 mg Tablet (BuPROpion XL Tablet) ??300 mg, By Mouth, Daily Doxepin 10 mg Capsule (Doxepin Capsule) ??10 mg, By Mouth, Daily at bedtime Duloxetine 60 mg Capsule (DULoxetine Capsule) ??120 mg, By Mouth, Daily Gabapentin 300 mg Capsule (gabapentin 300 mg oral capsule) ??300 mg, By Mouth, Daily in AM Gabapentin 300 mg Capsule (gabapentin 300 mg oral capsule) ??600 mg, By Mouth, Daily at bedtime Insulin Lispro 100 units/mL Inj (3mL) (Insulin LISPRO Sliding Scale) ??2-10 units, Subcutaneous Injection, 3 times a day before meals LamoTRIGINE 100 mg Tablet (lamotrigine 100 mg oral tablet) ??300 mg, By Mouth, Daily at bedtime Metoprolol 25mg Tablet (metoprolol 25 mg oral tablet) ??25 mg, By Mouth, 2 times a day NaCl 0.9% Flush 3ml (NaCL 0.9% Flush) ??3 mL, IV Push, Every 8 hours Nystatin Powder ??1 application, Topically, 2 times a day Pantoprazole 40 mg EC Tablet (pantoprazole 40 mg oral delayed release tablet) ??40 mg, By Mouth, Daily Trazodone 50 mg Tablet (traZODone 50 mg oral tablet) ??50 mg, By Mouth, Daily at bedtime CONTINUOUS: (0) PRN: (13) Acetaminophen 325 mg Tablet (Acetaminophen Tablet) ??650 mg, By Mouth, Every 4 hours Dextromethorphan-Guaifenesin 20 mg-200 mg/10 mL Liqu UD (Robitussin DM Liquid) ??10 mL, By Mouth, Every 4 hours Dextrose Inj Syringe (Dextrose 50% Inj Syringe (25Gm)) ??12.5 Gm, IV Push Slowly, Every 20 minutes Dextrose Inj Syringe (Dextrose 50% Inj Syringe (25Gm)) ??25 Gm, IV Push Slowly, Every 15 minutes Docusate Sodium 100 mg Capsule (Docusate Sodium Capsule) ??100 mg 1 capsule, By Mouth, 2 times a day Glucagon 1 mg Inj (Glucagon Inj) ??1 mg, Intramuscular, Once Glucose 40% Gel (15 Gm) (Glucose Gel) ??15 Gm, By Mouth, Every 20 minutes Glucose 40% Gel (15 Gm) (Glucose Gel) ??30 Gm, By Mouth, Every 20 minutes Melatonin 3 mg Tablet (Melatonin Tablet) ??3 mg, By Mouth, Daily at bedtime NaCl 0.9% Flush 3ml (NaCL 0.9% Flush) ??3 mL, IV Push, Every 8 hours Polyethylene Glycol 17 Gm Powder (MiraLax Powder) ??17 Gm 1 pack/packet, By Mouth, Daily Senna Tablet ??8.6 mg 1 tablet, By Mouth, 2 times a day Simethicone 80 mg Chewable Tablet (Simethicone Tablet) ??80 mg, Chew, 3 times a day ? Results Recent Labs BLOOD COUNT & DIFF WBC 6.4 k/mm3 ()?? 01/18/2024 05:20 RBC 3.81 m/mm3 (Low)?? 01/18/2024 05:20 Hgb 10.6 Gm/dL (Low)?? 01/18/2024 05:20 Hct 33.1 % (Low)?? 01/18/2024 05:20 MCV 86.9 femtoliters ()?? 01/18/2024 05:20 MCH 27.8 pg ()?? 01/18/2024 05:20 MCHC 32.0 g/dL (Low)?? 01/18/2024 05:20 Platelet Count 284 k/mm3 ()?? 01/18/2024 05:20 RDW-SD 54.7 femtoliters (High)?? 01/18/2024 05:20 MPV 9.5 femtoliters ()?? 01/18/2024 05:20 Nucleated RBC (Automated) 0.0 #/100 WBC'S ()?? 01/18/2024 05:20 Abs. NRBC 0.0 k/mm3 ()?? 01/18/2024 05:20 Abs. Neut 5.2 k/mm3 ()?? 01/17/2024 10:19 Abs. Lymph 1.8 k/mm3 ()?? 01/17/2024 10:19 Abs. [place] 0.8 k/mm3 ()?? 01/17/2024 10:19 Abs. Eo 0.1 k/mm3 ()?? 01/17/2024 10:19 Abs. Baso 0.0 k/mm3 ()?? 01/17/2024 10:19 Neut % 65.5 % ()?? 01/17/2024 10:19 Lymph % 22.4 % ()?? 01/17/2024 10:19 [place] % 9.5 % ()?? 01/17/2024 10:19 Eos % 1.6 % ()?? 01/17/2024 10:19 Baso % 0.4 % ()?? 01/17/2024 10:19 Imm Gran 0.6 % ()?? 01/17/2024 10:19 Abs. Imm Gran 0.1 k/mm3 ()?? 01/17/2024 10:19 ?? BLOOD GAS pH, Venous 7.33 ()?? 01/17/2024 10:19 ?? CARDIAC CK, Total 112 units/L ()?? 01/17/2024 10:19 High Sensitivity Troponin (HSTnT) 16 ng/L (High)?? 01/17/2024 20:43 ?? CHEM GENERAL Sodium 144 mmol/L ()?? 01/18/2024 05:20 Potassium 3.4 mmol/L (Low)?? 01/18/2024 05:20 Chloride 108 mmol/L (High)?? 01/18/2024 05:20 Bicarbonate Level 23 mmol/L ()?? 01/18/2024 05:20 Anion Gap 13 ()?? 01/18/2024 05:20 Glucose Level 88 mg/dL ()?? 01/18/2024 05:20 Glucose, POC 85 mg/dL ()?? 01/18/2024 11:43 Beta Hydroxybutyrate 0.08 mmol/L ()?? 01/17/2024 10:19 BUN 13 mg/dL ()?? 01/18/2024 05:20 Creatinine-Blood 0.8 mg/dL ()?? 01/18/2024 05:20 Estimated GFR Creatinine 75 ML/MIN/1.73 M2 ()?? 01/18/2024 05:20 Calcium 9.0 mg/dL ()?? 01/18/2024 05:20 Calcium, Ionized pH Corrected 1.28 mmol/L ()?? 01/17/2024 10:19 Magnesium 1.8 mg/dL ()?? 01/17/2024 10:19 Protein, Total 6.6 Gm/dL ()?? 01/17/2024 10:19 Albumin 4.1 Gm/dL ()?? 01/17/2024 10:19 AG Ratio 1.6 ()?? 01/17/2024 10:19 Alkaline Phosphatase 83 units/L ()?? 01/17/2024 10:19 AST (SGOT) 12 units/L ()?? 01/17/2024 10:19 ALT (SGPT) 8 units/L ()?? 01/17/2024 10:19 Bilirubin, Total 0.4 mg/dL ()?? 01/17/2024 10:19 ?? UA/URINALYSIS Appear/Color, Urine LIGHT YELLOW ()?? 01/17/2024 14:32 Specific [place], Urine 1.011 ()?? 01/17/2024 14:32 pH, Urine 5.5 ()?? 01/17/2024 14:32 Albumin, Urine NEGATIVE ()?? 01/17/2024 14:32 Glucose, Urine NEGATIVE ()?? 01/17/2024 14:32 Ketones, Urine NEGATIVE ()?? 01/17/2024 14:32 Bilirubin, Urine NEGATIVE ()?? 01/17/2024 14:32 Hemoglobin, Urine NEGATIVE ()?? 01/17/2024 14:32 Nitrite, Urine NEGATIVE ()?? 01/17/2024 14:32 Leukocyte, Urine 2+ (Abnormal)?? 01/17/2024 14:32 Urobilinogen NORMAL mg/dL ()?? 01/17/2024 14:32 WBC's, Urine 12 /HPF (High)?? 01/17/2024 14:32 RBC's, Urine NONE SEEN /HPF ()?? 01/17/2024 14:32 Squamous Epith 2 /HPF ()?? 01/17/2024 14:32 Mucus SLIGHT /LPF ()?? 01/17/2024 14:32 Hold Urine Culture Testing available 48 hours from time of collection. ()?? 01/17/2024 14:32 ?? URINE OTHER Est Creatinine Clearance 61.65 mL/min ()?? 01/18/2024 07:40 ? Assessment/Plan Diagnoses Dehydration, mild ??(E86.0) 2. ??Recurrent falls ??(R29.6) 3. ??Syncope ??(R55) 3. ??Syncope ??(R55) 4. ??Abnormal urinalysis ??(R82.90) 5. ??Pyuria ??(R82.81) 6. ??Multiple wounds ??(T07.XXXA) 7. ??Hypertension ??(I10) 8. ??Hyperlipidemia ??(E78.5) 9. ??Diabetes mellitus ??(E11.9) 10. ??Atrial fibrillation ??(I48.91) 10. ??Atrial fibrillation ??(I48.91) 11. ??GERD (gastroesophageal reflux disease) ??(K21.9) 12. ??Obstructive sleep apnea ??(G47.33) 13. ??Anxiety ??(F41.9) 14. ??Depression ??(F32.A) 15. ??Borderline personality disorder ??(F60.3) ?? Assessment:??73-year-old female patient with a medical history significant for morbid obesity, hypertension, hyperlipidemia, diabetes mellitus, recurrent falls, atrial fibrillation on Eliquis, gastroesophageal reflux disease, chronic anemia, obstructive sleep apnea, resting tremor, anxiety and depression disorders, borderline personality disorder who presented to the emergency department for evaluation after a fall and being admitted with concern for syncope.?Patient is not sure if she syncopized or not but she has had??many falls in recent months. ? Recurrent falls (R29.6):??. Syncope (R55):? Patient with history of recurrent falls who presents with fall and concern for syncope. Patient is not entirely clear about the event - she reports walking to the bathroom and falling down - she thinks her knee has given up on her but she can not till if she felt dizzy, light headed or had syncope. CT head and cervical spine with no acute intracranial abnormalities. Hip X-ray with no fracture. Chest X-ray with no acute cardiopulmonary process. ?? -Continue observation -Continue cardiac telemetry -Follow-up echocardiogram -Check orthostatic vital signs -Follow-up echo -Follow-up PT eval -Patient willing to go to rehab if indicated but will prefer to go home ? Abnormal urinalysis (R82.90):??. Pyuria (R82.81):? UA positive for LE and WBC - no leukocytosis, fever or urinary symptoms. - f/u urine culture, hold off on treating unless she becomes symptomatic ?? Multiple wounds (T07.XXXA):? She has multiple wounds over bilateral foot - she reports having them for years - she reports picking on her feet causing her to have those wound. - Wound care consult. - podiatry evaluation as out patient. ?? Hypertension (I10):? Unclear if she is taking any antihypertensive medications at home - lisinopril last filled in October 2023 -Hold for now, monitor blood pressure ? Hyperlipidemia (E78.5):? -Continue statin ?? Diabetes mellitus (E11.9):? -SSI ?? Atrial fibrillation (I48.91):? -Continue metoprolol, eliquis ?? Obstructive sleep apnea (G47.33):? -CPAP ?? Anxiety (F41.9):??. Depression (F32.A):??. Borderline personality disorder (F60.3):? - continue home doxepin, duloxetine, gabapentin, lamotrigine, trazodone. ?? VTE Prophylaxis:??Eliquis ?VTE Prophylaxis Assessment:??VTE Prophylaxis Ordered ?? Code Status:??FC ?Order Code Status:??Code Status Ordered ?? Ongoing Medical Necessity:??Echo, tele, orthos, PT eval Discharge Planning:??Pending PT eval, likely HWS ? Please note, dictation software (vzaar)??may have been used in the preparation of this note, and may have generated unintentional errors in speech recognition. If there are any questions going forward, please reach out for clarification. * Maynor Lyons RN: PERFORM, SIGN, VERIFY Event Display: Progress Note Hospital Authored Date: [id number] Patient: BEN GARIBAY Age: 73 years Sex: Female : 1950 Associated Diagnoses: None Author: Maynor Lyons RN Findings Problem Related to Alteration in Safety : Alteration in Safety/new 01/17/2024 22:00 EST Alteration in Safety Related to Injury Goals & Outcomes, Safety Pt/caregiver will state understanding of plan/goals of care, Pt will remain safe & injury free, Pt/caregiver will be offered appropriate resources & support, Pt/caregiver will verbalize understanding of the D/C plan Interventions, Safety Provide teaching as needed, Discuss unsafe practices & situations with pt/S.O., Instruct pt on maintaining a safe environment BH Goals/Interventions, Safety Yes Safety, Problem Start 01/17/2024 22:00 Reviewed plan with, Safety Patient Patient Progression, Safety Plan Initiation . Falls Risk Assessment : Falls Data 01/17/2024 21:00 EST Fall Elimination Toileting Needs Increased Fall Elimination Not Done: Task Duplication (Not Done) Plan: Fall Elimination Implement an individualized toileting schedule Fall Agitation/Anxiety/Depression No impairment Fall Agitation/Anxiety/Depression Not Done: Task Duplication (Not Done) Fall Related Sign/Symptom/Condition None Fall Related Sign/Symptom/Condition Not Done: Task Duplication (Not Done) Fall Cognitive Limitations No impairment Fall Cognitive Limitations Not Done: Task Duplication (Not Done) Fall Sensory and Physical Function Unsteady Gait, Requires the Use of an Assistive Device Fall Sensory and Physical Function Not Done: Task Duplication (Not Done) Plan: Fall Sensory and Physical Function Encourage safe activities to maintain strength & mobility, Perform strengthening exercises with the patient, Monitor patient's progress with physical activities, Educate patient how to use mobility aids safely, Place mobility aids near bedside Fall High Risk for Injury None of the above Fall High Risk for Injury Not Done: Task Duplication (Not Done) Total Falls Risk Score 9 Fall Risk Level High Risk Fall Risk Level Not Done: Task Duplication (Not Done) Falls Prevention Plan for High Risk Apply yellow high fall risk wrist band to wrist, Ensure patienthas yellow non-skid slippers, Supervise patient in the bathroom & shower, Activate bed exit alarm system, Evaluate footwear & ensure patient has non-skid slippers, Bed in lowest locked position, Instruct patient/family to request assistance with ambulatio, Instruct patient/family not to getup without assistance, Supervise the patient when ambulating or making transfers, Check that needs are met to minimize attempts to get up, Hourly rounds, Ensure safe & uncluttered environment . Narrative/Incidental Admitted overnight s/p unwitnessed fall. Denies c/o CP or SOB. Able to ambulate to BR with walker and 1 assist. Skin issues R abd skin folds,pink,shiny,moist appearing,nystatin powder applied. Multiple shallow diabetic wounds to both sets of toes, R plantar surface near heel, cleansed,betadine painted,dry dressing applied. Multimedia obtained,placed in chart. Bed alarm for safety,demonstrates correct use of call light system to make needs known.. Discharge Information Pulmonary Rehab Discharge : Pulmonary Rehab Discharge Status 01/18/2024 4:47 EDT CPAP/BiPAP Mask Type Full CPAP/BiPAP Mask Size Medium 01/18/2024 0:16 EST CPAP/BiPAP Mask Type Full CPAP/BiPAP Mask Size Medium Note * Amita Conley RN: PERFORM Event Display: Discharge/Transfer Note Hospital Authored Date: [id number] Nursing Discharge Note Entered On: 01/19/2024 17:26 EDT Performed On: 01/19/2024 17:26 EDT by Amita Conley RN Nursing Discharge Note 2 Discharge Time : 01/19/2024 17:25 EDT Discharge Level of Care at Discharge : Homehealth/VNA Discharge VNA/Hospice/Home Care(v001) : [facility] [phone] Patient Left Unit Via : Wheelchair Patient Accompanied Off Unit with : Responsible adult DC Instructions Provided & Signed by Pt : Yes Patient Understands D/C Instructions : Yes Patient Instructions Discharge Signed : Yes Did Pt have Specialty Bed or Wound Vac : No Amita Conley RN - 01/19/2024 17:26 EDT * Jakob SUMMERS, Darius Stafford: PERFORM, MODIFY, MODIFY Event Display: Discharge/Transfer Note Hospital Authored Date: [id number] Patient: ??BEN GARIBAY ? Age:??73 Years?Sex:??Female?:??1950?? Patient Information Discharge Location: Primary Care Physician: Erik Kim DO Admit Date/Time: 01/17/24 09:12 Discharge Disposition Discharge Disposition: Home with services Discharge Diagnosis Recurrent falls (R29.6) Syncope (R55) Abnormal urinalysis (R82.90) Pyuria (R82.81) Multiple wounds (T07.XXXA) Hypertension (I10) Hyperlipidemia (E78.5) Diabetes mellitus (E11.9) Atrial fibrillation (I48.91) GERD (gastroesophageal reflux disease) (K21.9) Obstructive sleep apnea (G47.33) Anxiety (F41.9) Depression (F32.A) Borderline personality disorder (F60.3) Dehydration, mild (E86.0) ?? _ Discharge Medications Acetaminophen (acetaminophen 325 mg oral tablet)?TAKE 2 TABLETS (650 MG)ORALLY EVERY 6 HOURS NEEDED FOR PAIN, MILD (PAIN SCALE 1-3) apixaban (Eliquis 5 mg oral tablet)?See Instructions?TAKE 1 TABLET BY MOUTH TWICE A DAY Atorvastatin (atorvastatin 40 mg oral tablet)?1?tab(s)?40?Milligram?By Mouth?Daily BuPROpion (buPROPion 300 mg/24 hours (XL) oral tablet, extended release)?300?Milligram?By Mouth?Daily Duloxetine (Cymbalta 60 mg oral enteric coated capsule)?See Instructions?2 capsule By Mouth Daily Durable Medical Equipment (Four-wheeled walker with seat and handbrakes)?See Instructions?Dx:Parkinsonism (G20) Durable Medical Equipment (Knee Support)?See Instructions?wear knee brace for OA both knees Estradiol Topical (estradiol 0.1 mg/g vaginal cream)?1?gram?Vaginally?Daily at bedtime Gabapentin (gabapentin 300 mg oral capsule)?See Instructions?1 ??capsule in am 2 at bedtime HydrOXYzine (hydrOXYzine hydrochloride 25 mg oral tablet)?1?tab(s)?25?Milligram?By Mouth?4 times a day Lamotrigine (Lamictal 100 mg oral tablet)?3 tab?By Mouth?Daily at bedtime Meclizine (meclizine 25 mg oral tablet)?TAKE 1 TABLET BY MOUTH THREE TIMES A DAY NEEDED Metformin (metFORMIN 500 mg oral tablet)?1?tab(s)?500?Milligram?By Mouth?2 times a day Metoprolol (metoprolol 50 mg oral tablet)?50?Milligram?1?tablet?By Mouth?2 times a day Nystatin Topical (nystatin topical 516912 u/gm powder)?1?buzz?Topically?3 times a day?to rash Nystatin Topical (nystatin topical 117421 u/gm powder)?See Instructions?APPLY TOPICALLY 3 TIMES A DAY TO RASH Omeprazole (omeprazole 40 mg oral enteric coated capsule)?1?capsule?40?Milligram?By Mouth?Daily vibegron (Gemtesa 75 mg oral tablet)?1?tab(s)?75?Milligram?By Mouth?Daily ? Vaccinations and Immunoprophylaxis influenza virus vaccine, inactivated: 0.7 Unknown (08/02/23 08:00:00) influenza virus vaccine, inactivated: 0.7 Unknown (08/06/22 08:00:00) influenza virus vaccine, inactivated: 0.7 Unknown (08/21/21 08:00:00) influenza virus vaccine, inactivated: 0.7 Unknown (08/09/20 08:00:00) influenza virus vaccine, inactivated: 0.5 Unknown (07/05/19 08:00:00) influenza virus vaccine, inactivated: 0.5 Unknown (08/08/18 08:00:00) influenza virus vaccine, inactivated: 0.5 Unknown (08/09/17 08:00:00) pneumococcal 13-valent vaccine: 0.5 Unknown (07/25/22 08:00:00) pneumococcal 13-valent vaccine: 0.5 Unknown (12/14/18 07:00:00) pneumococcal 13-valent vaccine: 0.5 Unknown (12/14/18 07:00:00) pneumococcal 13-valent vaccine: 0.5 Unknown (06/06/16 08:00:00) pneumococcal 20-valent conjugate vaccine: 0.5 mL (10/30/23 14:39:00) pneumococcal 20-valent conjugate vaccine: 0.5 Unknown (07/25/22 08:00:00) pneumococcal 23-valent vaccine: 0.5 Unknown (11/08/06 07:00:00) RSV vaccine preF3, recombinant: 0.5 Unknown (10/15/23 07:00:00) SARS-CoV-2 (COVID-19) Ad26 vaccine: 0.5 Unknown (01/13/21 07:00:00) SARS-CoV-2 (COVID-19) mRNA BNT-162b2 vac: 0.3 Unknown (09/03/21 08:00:00) SARS-CoV-2 mRNA (cmgbulr-fqec-cfdtt) vax: 0.3 Unknown (03/13/22 08:00:00) SARS-CoV-2 mRNA (duwbbvv-lnwj-sbamm) vax: 0 Unknown (08/21/21 08:00:00) SARS-CoV-2 mRNA (bqfpcov-omsn-mfmcj) vax: 0.5 Unknown (01/13/21 07:00:00) SARS-CoV-2(COVID-19)mRNA-LNP vac(qzt079): 0.3 Unknown (08/02/23 08:00:00) NZNE-IlU-5cUOK 12y+ bivalent booster vax: 0.3 Unknown (08/06/22 08:00:00) tetanus/diphtheria/pertussis, acel(Tdap): 0 Unknown (10/21/11 07:00:00) Zoster Vaccine Live: 0 Unknown (12/09/19 07:00:00) Zoster Vaccine Live: 0 Unknown (03/13/12 08:00:00) zoster vaccine, inactivated: 0 Unknown (03/13/20 08:00:00) zoster vaccine, inactivated: 0.5 Unknown (12/09/19 07:00:00) Influenza Virus Vaccine (oldterm): 0.7 Unknown (08/06/22 08:00:00) Influenza Virus Vaccine (oldterm): 0 Unknown (08/09/20 08:00:00) Influenza Virus Vaccine (oldterm): 0 Unknown (07/05/19 08:00:00) Influenza Virus Vaccine (oldterm): 0 Unknown (08/08/18 08:00:00) Influenza Virus Vaccine (oldterm): 0.5 Unknown (08/02/16 08:00:00) Influenza Virus Vaccine (oldterm): 0.5 Unknown (08/07/15 08:00:00) Influenza Virus Vaccine (oldterm): 0 Unknown (07/22/14 08:00:00) Influenza Virus Vaccine (oldterm): 0 Unknown (08/30/13 08:00:00) Influenza Virus Vaccine (oldterm): 0.5 Unknown (08/14/12 08:00:00) Influenza Virus Vaccine (oldterm): 0 Unknown (08/26/11 08:00:00) Pneumococcal Vaccine (oldterm): 0.5 mL (11/08/06 13:38:00) ?? Durable Medical Equipment Discharge recommendations: Home with services (01/18/24) Name of Agency #1: [facility] (10/04/23) Agency [facility]1: Intake (01/19/24) Service Categories #1: Occupational Therapy, Physical Therapy, [facility] (01/19/24) Service Comments #1: A nurse will call you to arrange a visit with you at your home. If you do not hear from agency, please call them. (01/19/24) CPAP/BiPAP Mask Type: Full (01/19/24) CPAP/BiPAP Mask Size: Medium (01/19/24) Ambulatory devices needed: Walker (01/19/24) ? Medications Started None Medications Discontinued Lisinopril and amlodipine on hold Doses Changed None Allergies Allergies ?(Active and Proposed Allergies Only) Myrbetriq? (Severity: Unknown severity, Onset: Unknown) ?Reactions: Hallucinations ? Future Appointments Friday. 2023 2:50 PM EDT ?? With: Erik Kim DO Where: [address] [address]- Status: Pending Hospital Course ?? 73-year-old female patient with a medical history significant for morbid obesity, hypertension, hyperlipidemia, diabetes mellitus, recurrent falls, atrial fibrillation on Eliquis, gastroesophageal reflux disease, chronic anemia, obstructive sleep apnea, resting tremor, anxiety and depression disorders, borderline personality disorder who presented to the emergency department for evaluation after a fall and being admitted with concern for syncope.?Patient is not sure if she syncopized or not but she has had??many falls in recent months. ? 01/17: Accepted patient under my care at 7AM. Chart reviewed, saw and examined patient. Patient awaiting echocardiogram. PT eval and orthostatic vital signs ordered. She is asymptomatic at rest. BP islabile.??Orthostatics stable in the afternoon. ?? 01/18: BP in acceptable range at rest, no episodes of hypotension noted.??No orthostatic symptoms and orthostatic vital signs??are stable. Echocardiogram was also performed,??no findings to explain??recurrent falls/possible syncope.??She has been cleared for home??discharge with services, this has been set up. ?? Assessment and Plan ? Recurrent falls (R29.6):??. Syncope (R55):? Patient with history of recurrent falls who presents with fall and concern for syncope. Patient is not entirely clear about the event - she reports walking to the bathroom and falling down - she thinks her knee has given up on her but she can not tell if she felt dizzy, light headed or had syncope. CT head and cervical spine with no acute intracranial abnormalities. Hip X-ray with no fracture. Chest X-ray with no acute cardiopulmonary process. Echo unremarkable, vital stable, orthostatics negative, seen by PT and cleared for home??with services ?? -Discharge home with services -Continue current meds on discharge, continue??holding home antihypertensives and reintroduce undersupervision of PCP -Set up with PT/VNA/OT ?? Abnormal urinalysis (R82.90):??. Pyuria (R82.81):? UA positive for LE and WBC - no leukocytosis, fever or urinary symptoms. - f/u urine culture, hold off on treating unless she becomes symptomatic ?? Multiple wounds (T07.XXXA):? She has multiple wounds over bilateral foot - she reports having them for years - she reports picking on her feet causing her to have those wound. ?? - Wound care consulted, was pending at NH, deferred because chronic and stable; I am informed that PCP has set her up for outpatient Wound Care eval -Patient with VNA who can continue routine wound care, PCP to follow up -Podiatry evaluation as out patient. ?? Hypertension (I10):? Unclear if she is taking any antihypertensive medications at home - lisinopril last filled in October 2023 -Hold for now, monitor blood pressure -Reintroduce as needed under supervision of PCP ? Hyperlipidemia (E78.5):? -Continue statin ?? Diabetes mellitus (E11.9):? -Resume home meds on DC ?? Atrial fibrillation (I48.91):? -Continue metoprolol, eliquis ?? GERD (gastroesophageal reflux disease) (K21.9):? -PPI ?? Obstructive sleep apnea (G47.33):? -CPAP ?? Anxiety (F41.9):??. Depression (F32.A):??. Borderline personality disorder (F60.3):? - continue home doxepin, duloxetine, gabapentin, lamotrigine, trazodone. ?? Please note, dictation software (vzaar)??may have been used in the preparation of this note, and may have generated unintentional errors in speech recognition. If there are any questions going forward, please reach out for clarification. Objective Measurements?? Height: 170 cm (01/19/24) Weight: 118.6 kg (01/19/24) Dry Weight: 136 kg (01/17/24) Body Mass Index:??47.06 kg/m2??Critical (01/17/24) ? Vital Signs?? Temperature: 97.6 DegF (01/19/24 14:19:00) Temperature Route: Temporal (01/19/24 14:19:00) Pulse Rate: 85 bpm (01/19/24 14:19:00) Pulse Rate, Lyin bpm (01/19/24 07:58:00) Systolic Blood Pressure, Lyin mm Hg (01/19/24 07:58:00) Diastolic Blood Pressure, Lyin mm Hg (01/19/24 07:58:00) Pulse Rate, Sittin bpm (01/19/24 07:58:00) Systolic Blood Pressure, Sittin mm Hg (01/19/24 07:58:00) Diastolic Blood Pressure, Sittin mm Hg (01/19/24 07:58:00) Pulse Rate, Standin bpm (01/19/24 07:58:00) Systolic Blood Pressure, Standin mm Hg (01/19/24 07:58:00) Diastolic Blood Pressure, Standin mm Hg (01/19/24 07:58:00) Respiratory Rate: 16 br/min (01/19/24 14:19:00) Systolic Blood Pressure: 124 mm Hg (01/19/24 14:19:00) Diastolic Blood Pressure:??93 mm Hg??High (01/19/24 14:19:00) Blood pressure sites: Arm, right (01/19/24 14:19:00) Mean Arterial Pressure: 103 mm Hg (01/19/24 14:19:00) Pulse Pressure: 31 mm Hg (01/19/24 14:19:00) Oxygen Saturation: 95 % (01/19/24 14:19:00) Mode of Delivery (Oxygen): Room air (01/19/24 14:19:00) Early Warning Score: 4 (01/19/24 14:20:09) ? . Physical Exam Constitutional: Alert, in no acute distress. Head EENT: PERRL.??NCAT. Neck: Supple. No obvious LAD. Respiratory: CTAB. No use of accessory muscles. Cardiovascular: S1S2 present. No obvious JVD. Gastrointestinal: Abdomen soft, non-tender, non-distended. Bowel sounds present. Genitourinary: No CVA tenderness. Genital exam deferred. Extremities: No lower extremity pitting??edema. No cyanosis or clubbing. Neurologic: Alert, generally appropriate. Speech normal. No gross focal neurological deficits. Consultants CM PT Pending Results Add On Lab Order ordered on 01/17/2024 Add On Lab Order ordered on 01/17/2024 Add On Lab Order ordered on 01/18/2024 High??Sensitivity??Troponin T ordered on 01/17/2024 Hold Lavender Tube (BB) ordered on 01/17/2024 Urine Culture ordered on 01/17/2024 Follow-Up Appointments Added Follow Up ?Time Frame ?Comments Julio DO, Erik Patel?Call office upon discharge to be seen in 1 to 2 weeks postdischarge??for hospital follow-up appointment Patient Instructions -Follow-up with your PCP in 1 to 2 weeks -Stop taking lisinopril and amlodipine for now, follow your blood pressure at home,??reintroduce under supervision -You can talk to PCP about refilling Vistaril if you have run out Home Health Face to Face *Denotes mandatory garcia ?? *I certify that this patient is under my care and that I or an allowed non- physician working with me had a face to face encounter with the patient on this date:??01/19/2024 14:30 ?? *The encounter with the patient was in whole, or in part, for the following medical condition, which is the primary diagnosis(es) for home health care:??Recurrent falls (R29.6) Syncope (R55) Abnormal urinalysis (R82.90) Pyuria (R82.81) Multiple wounds (T07.XXXA) Hypertension (I10) Hyperlipidemia (E78.5) Diabetes mellitus (E11.9) Atrial fibrillation (I48.91) GERD (gastroesophageal reflux disease) (K21.9) Obstructive sleep apnea (G47.33) Anxiety (F41.9) Depression (F32.A) Borderline personality disorder (F60.3) Dehydration, mild (E86.0) ? *Select the indications for the discipline/s that are being arranged for this patient. Nursing (select all that apply): [_] None [X] Medication management (reconciliation, teaching)?? [X] Chronic disease management?? [X] Wound care and treatment?? [_] Home safety evaluation [_] Administer SQ/IM/IV medications?? [_] Cath care?? [_] Drain care?? [_] Trach or GT care?? Other _ Occupation Therapy (select all that apply): [_] None [_] ADL Management [X] Fall prevention training [_] Energy conservation [_] Cognitive training Other _ Physical Therapy (select all that apply): [_] None [X] Functional mobility training [_] Home exercise program to strengthen [_] Increase ROM?? [X] Falls prevention training [_] Home maintenance program for chronic disease Other _ Speech Therapy (select all that apply): [_] None [_] Swallow evaluation and training [_] Speech and language training [_] Cognitive training to process, organize, and/or recall information Other _ ? *Homebound due to (select all that apply): [X] Inability to leave home without assistance/supervision [_] Inability to ambulate without assistance [_] Pain [_] Decreased strength and endurance [_] Unsteady gait [_] Severe SOB and fatigue [_] Impaired transfers [_] Inability to negotiate stairs [_] Limited weight bearing [_] Mental status change? *Physician Signature:??Darius Robert MD ?? *By signing this, I certify that I have personally evaluated the patient and agree with the findings and recommendations as documented above. ? Results Discharge Labs BLOOD COUNT & DIFF WBC 6.5 k/mm3 ()?? 01/19/2024 02:40 RBC 4.05 m/mm3 (Low)?? 01/19/2024 02:40 Hgb 11.1 Gm/dL (Low)?? 01/19/2024 02:40 Hct 35.2 % (Low)?? 01/19/2024 02:40 MCV 86.9 femtoliters ()?? 01/19/2024 02:40 MCH 27.4 pg ()?? 01/19/2024 02:40 MCHC 31.5 g/dL (Low)?? 01/19/2024 02:40 Platelet Count 270 k/mm3 ()?? 01/19/2024 02:40 RDW-SD 54.7 femtoliters (High)?? 01/19/2024 02:40 MPV 9.4 femtoliters ()?? 01/19/2024 02:40 Nucleated RBC (Automated) 0.0 #/100 WBC'S ()?? 01/19/2024 02:40 Abs. NRBC 0.0 k/mm3 ()?? 01/19/2024 02:40 Abs. Neut 5.2 k/mm3 ()?? 01/17/2024 10:19 Abs. Lymph 1.8 k/mm3 ()?? 01/17/2024 10:19 Abs. [place] 0.8 k/mm3 ()?? 01/17/2024 10:19 Abs. Eo 0.1 k/mm3 ()?? 01/17/2024 10:19 Abs. Baso 0.0 k/mm3 ()?? 01/17/2024 10:19 Neut % 65.5 % ()?? 01/17/2024 10:19 Lymph % 22.4 % ()?? 01/17/2024 10:19 [place] % 9.5 % ()?? 01/17/2024 10:19 Eos % 1.6 % ()?? 01/17/2024 10:19 Baso % 0.4 % ()?? 01/17/2024 10:19 Imm Gran 0.6 % ()?? 01/17/2024 10:19 Abs. Imm Gran 0.1 k/mm3 ()?? 01/17/2024 10:19 ?? BLOOD GAS pH, Venous 7.33 ()?? 01/17/2024 10:19 ? CARDIAC CK, Total 112 units/L ()?? 01/17/2024 10:19 High Sensitivity Troponin (HSTnT) 16 ng/L (High)?? 01/17/2024 20:43 ?? CHEM GENERAL Sodium 145 mmol/L ()?? 01/19/2024 02:40 Potassium 4.4 mmol/L ()?? 01/19/2024 02:40 Chloride 109 mmol/L (High)?? 01/19/2024 02:40 Bicarbonate Level 25 mmol/L ()?? 01/19/2024 02:40 Anion Gap 11 ()?? 01/19/2024 02:40 Glucose Level 98 mg/dL ()?? 01/19/2024 02:40 Glucose, POC 88 mg/dL ()?? 01/19/2024 07:55 Beta Hydroxybutyrate 0.08 mmol/L ()?? 01/17/2024 10:19 BUN 13 mg/dL ()?? 01/19/2024 02:40 Creatinine-Blood 0.9 mg/dL ()?? 01/19/2024 02:40 Estimated GFR Creatinine 69 ML/MIN/1.73 M2 ()?? 01/19/2024 02:40 Calcium 9.2 mg/dL ()?? 01/19/2024 02:40 Calcium, Ionized pH Corrected 1.28 mmol/L ()?? 01/17/2024 10:19 Magnesium 1.7 mg/dL ()?? 01/19/2024 02:40 Protein, Total 6.6 Gm/dL ()?? 01/17/2024 10:19 Albumin 4.1 Gm/dL ()?? 01/17/2024 10:19 AG Ratio 1.6 ()?? 01/17/2024 10:19 Alkaline Phosphatase 83 units/L ()?? 01/17/2024 10:19 AST (SGOT) 12 units/L ()?? 01/17/2024 10:19 ALT (SGPT) 8 units/L ()?? 01/17/2024 10:19 Bilirubin, Total 0.4 mg/dL ()?? 01/17/2024 10:19 ? ENDOCRINE/TUMOR MARKER TSH 0.85 uIU/mL ()?? 01/19/2024 02:40 ? UA/URINALYSIS Appear/Color, Urine LIGHT YELLOW ()?? 01/17/2024 14:32 Specific [place], Urine 1.011 ()?? 01/17/2024 14:32 pH, Urine 5.5 ()?? 01/17/2024 14:32 Albumin, Urine NEGATIVE ()?? 01/17/2024 14:32 Glucose, Urine NEGATIVE ()?? 01/17/2024 14:32 Ketones, Urine NEGATIVE ()?? 01/17/2024 14:32 Bilirubin, Urine NEGATIVE ()?? 01/17/2024 14:32 Hemoglobin, Urine NEGATIVE ()?? 01/17/2024 14:32 Nitrite, Urine NEGATIVE ()?? 01/17/2024 14:32 Leukocyte, Urine 2+ (Abnormal)?? 01/17/2024 14:32 Urobilinogen NORMAL mg/dL ()?? 01/17/2024 14:32 WBC's, Urine 12 /HPF (High)?? 01/17/2024 14:32 RBC's, Urine NONE SEEN /HPF ()?? 01/17/2024 14:32 Squamous Epith 2 /HPF ()?? 01/17/2024 14:32 Mucus SLIGHT /LPF ()?? 01/17/2024 14:32 Hold Urine Culture Testing available 48 hours from time of collection. ()?? 01/17/2024 14:32 ?? URINE OTHER Est Creatinine Clearance 54.80 mL/min ()?? 01/19/2024 03:57 ? 40??minutes spent on discharge * Kennedy CANO, Kena Owen: PERFORM Event Display: Patient Education/Instruction Authored Date: [id number] Inpatient Adult Discharge Instructions. [address] [id number] Name: BEN GARIBAY : 1950?? Visit: 01/17/2024 09:12?? Current Date: 01/19/2024 16:28 ?? Account: [id number]?? Inpatient Adult Discharge Instructions We would like [...] and their families. Surveys are administered by [employer] ?? If further treatment with your primary care physician or another doctor is recommended, it is important for you to keep the appointment. Call your primary care physician or return to the Emergency Department immediately if your condition worsens, fails to improve, or new symptoms develop. If you need to find a doctor, you can call [facility] [employer] for a referral at [phone] or toll free at [phone] or log in to [email or web address].. ?? [facility], in keeping with [facility] guidance, no longer requires face masks for [...] a health care buzz of your choosing. [employer] is a website that allows you to securely view your medical information including your hospital discharge summary, office visit summaries, medications and follow-up visits. You can also request appointments, renew medications, and request access to your medical information using a health care buzz of your choosing, or just ask a question. You can enroll at [email or web address] or register during your next office visit. You have been discharged from [facility], Patient Care Unit: M7??. If you have any questions regarding these instructions, including results of studies pending, afteryou leave, please call us and we will be happy to assist you 02/06. [facility] Your Care Team Attending Physician Darius Robert MD?? Consulting Providers Darius Robert MD?? Discharging Providers Darius Robert MD Reason for Your Visit BIBA from independent living facility for unwitnessed fall. unknown LOC. PT reported + HS to the back of head on wooden dresser. PT is weak unable to stand, ??increased AMS, increased confusion, c/o left knee pain. LWK 0700 today. c- collar in place.?? Your Diagnosis Fall Recurrent falls Syncope Abnormal urinalysis Pyuria Multiple wounds Hypertension Hyperlipidemia Diabetes mellitus Atrial fibrillation GERD (gastroesophageal reflux disease) Obstructive sleep apnea Anxiety Depression Borderline personality disorder Tests Performed Below is a partial list of the tests performed during your hospitalization. You may have had other tests and procedures not included in this list. Please discuss all test results with your provider. Basic Metabolic Panel Beta Hydroxybutyrate Calcium Ionized CBC CBC w/ Differential Comprehensive Metabolic Panel CPK Total Only GLUCOSE POC Magnesium Level pH Venous Troponin T, High Sensitivity?-- Results Pending -- TSH Urinalysis w/hold for Urine Culture CT Cervical Spine W/O Contrast CT Head/Brain W/O Contrast Doppler Ext Lower Venous Left (US) Hip w/Pelvis 2-3 View Left XR Chest 2 Views Frontal and Lat You will be contacted within 72 hours with your results. Add On Lab Order?? High??Sensitivity??Troponin T (Troponin T, High Sensitivity)?? Hold Lavender Tube (BB)?? Urine Culture (Urine Culture, Routine)?? Primary Care Provider Erik Kim DO? Advance Directive Health Care Proxy on File Yes - Health Care Proxy Discharge Vitals Temperature: 97.6 DegF Height: 170 cm Pulse Rate: 85 bpm Weight: 118.6 kg Respiratory Rate: 16 br/min Body Mass Index:??47.06 kg/m2??Critical Systolic Blood Pressure: 124 mm Hg Body surface area: 2.53 Diastolic Blood Pressure:??93 mm Hg??High ?? Oxygen Saturation: 95 % ?? Studies Pending All studies ordered during this hospital stay have been completed unless listed below. Please discuss all pending results with your provider listed above in these instructions. ?? Add On Lab Order?? High??Sensitivity??Troponin T (Troponin T, High Sensitivity)?? Hold Lavender Tube (BB)?? Urine Culture (Urine Culture, Routine)?? What to do next Instructions From Your Doctor -Follow-up with your PCP in 1 to 2 weeks -Stop taking lisinopril and amlodipine for now, follow your blood pressure at home,??reintroduce under supervision -You can talk to PCP about refilling Vistaril if you have run out ?? Orders?? with service, ??01/19/24 14:32:00 EDT?? Scheduled Follow-Up Appointments Friday. 2023 2:50 PM EDT ?? With: Erik Kim DO Where: [place] [address]- Status: Pending You Need to Schedule the Following Appointments Follow Up with??Erik Kim DO Why: Call office upon discharge to be seen in 1 to 2 weeks postdischarge??for hospital follow-up appointment Where: ?? Discharge Medications BEN GARIBAY :1950 Visit Date:01/17/2024 Medications: Please continue your medications until treatment is completed or stopped by your provider. Medications not listed below should be discontinued. Discuss any questions related to medications with your provider. What How Much When Why Instructions Next Dose Unchanged Acetaminophen (acetaminophen 325 mg oral tablet) TAKE 2 TABLETS (650 MG)ORALLY EVERY 6 HOURS NEEDED FOR PAIN, MILD (PAIN SCALE 1-3) ?? as needed Unchanged apixaban (Eliquis 5 mg oral tablet) See instructions TAKE 1 TABLET BY MOUTH TWICE A DAY ?? today at 9pm Unchanged Atorvastatin (atorvastatin 40 mg oral tablet) 1 tab(s) Oral Daily today at bedtime Unchanged BuPROpion (buPROPion 300 mg/ 24 hours (XL) oral tablet, extended release) take as prescribed by your MD Unchanged Duloxetine (Cymbalta 60 mg oral enteric coated capsule) See instructions 2 capsule By Mouth Daily ?? 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 N/A Unchanged Durable Medical Equipment (Knee Support) See instructions Osteoarthritis of both knees wear knee brace for OA both knees ?? N/A Unchanged Estradiol Topical (estradiol 0.1 mg/ g vaginal cream) 1 gram Vaginally Daily at Bedtime today at bedtime Unchanged Gabapentin (gabapentin 300 mg oral capsule) See instructions 1 ??capsule in am 2 at bedtime ?? today at bedtime Unchanged HydrOXYzine (hydrOXYzine hydrochloride 25 mg oral tablet) 1 tab(s) Oral 4 times a day today at 9pm Unchanged Lamotrigine (Lamictal 100 mg oral tablet) 3 tab Oral Daily at Bedtime today at bedtime Unchanged Meclizine (meclizine 25 mg oral tablet) TAKE 1 TABLET BY MOUTH THREE TIMES A DAY NEEDED ?? as needed Unchanged Metformin (metFORMIN 500 mg oral tablet) 1 tab(s) Oral Twice a day today at 9pm Unchanged Metoprolol (metoprolol 50 mg oral tablet) 1 tab(s) Oral Twice a day today at 9pm Unchanged Nystatin Topical (nystatin topical 946795 u/ gm powder) See instructions APPLY TOPICALLY 3 TIMES A DAY TO RASH ?? today at 9pm Unchanged Nystatin Topical (nystatin topical 051357 u/ gm powder) 1 buzz Topically 3 times a day to rash ?? today at 9pm Unchanged Omeprazole (omeprazole 40 mg oral enteric coated capsule) 1 capsule Oral Daily tomorrow in am Unchanged vibegron (Gemtesa 75 mg oral tablet) 1 tab(s) Oral Daily tomorrow in am ?? What How Much When Comments Stop Taking Amlodipine (amLODIPine 2.5 mg oral tablet) 1 tab(s) Oral Daily Stop Taking Clonazepam (clonazePAM 0.5 mg oral tablet) 0.5 Milligram Oral Daily at Bedtime Stop Taking Clonazepam (clonazePAM 0.5 mg oral tablet) 0.5 tab(s) Oral Daily as needed for Anxiety Stop Taking Cyanocobalamin (Vitamin B12) Stop Taking Lisinopril (lisinopril 40 mg oral tablet) Stop Taking Loperamide (loperamide 2 mg oral capsule) 1 capsule Oral Every 4 hours Stop Taking Milk of Magnesia 1,200 Milligram Oral 3 times a day Prescription Given During Visit No new medications prescribed at time of discharge.?? Laboratory Results Below is a partial list of the most recent Laboratory test results done prior to this discharge. You may have had other tests and procedures not included in this list. Please discuss all test resultswith your provider. Est Creatinine Clearance - 54.80 mL/min (01/19/2024) Basic Metabolic Panel (01/19/2024) ???Sodium - 145 mmol/L???Potassium - 4.4 mmol/L???Chloride - 109 mmol/L???Bicarbonate Level - 25 mmol/L???Anion Gap - 11???Glucose Level - 98 mg/dL???BUN - 13 mg/dL???Creatinine-Blood - 0.9 mg/dL???Estimated GFR Creatinine - 69 ML/MIN/1.73 M2???Calcium - 9.2 mg/dL Beta Hydroxybutyrate (01/17/2024) ???Beta Hydroxybutyrate - 0.08 mmol/L Calcium Ionized (01/17/2024) ???Calcium, Ionized pH Corrected - 1.28 mmol/L CBC (01/19/2024) ???WBC - 6.5 k/mm3???RBC - 4.05 m/mm3???Hgb - 11.1 Gm/dL???Hct - 35.2 %???MCV - 86.9 femtoliters???MCH - 27.4 pg???MCHC - 31.5 g/dL???Platelet Count - 270 k/mm3???RDW-SD - 54.7 femtoliters???MPV - 9.4 femtoliters???Nucleated RBC (Automated) - 0.0 #/100 WBC'S???Abs. NRBC - 0.0 k/mm3 CBC w/ Differential (01/17/2024) ???WBC - 8.0 k/mm3???RBC - 4.55 m/mm3???Hgb - 12.5 Gm/dL???Hct - 38.9 %???MCV - 85.5 femtoliters???MCH - 27.5 pg???MCHC - 32.1 g/dL???Platelet Count - 330 k/mm3???RDW-SD - 53.4 femtoliters???MPV - 9.1 femtoliters???Nucleated RBC (Automated) - 0.0 #/100 WBC'S???Abs. NRBC - 0.0 k/mm3???Abs. Neut - 5.2 k/mm3???Abs. Lymph - 1.8 k/mm3???Abs. [place] - 0.8 k/mm3???Abs. Eo - 0.1 k/mm3???Abs. Baso - 0.0 k/mm3???Neut % - 65.5 %???Lymph % - 22.4 %???[place] % - 9.5 %???Eos % - 1.6 %???Baso % - 0.4 %???Imm Gran- 0.6 %???Abs. Imm Gran - 0.1 k/mm3 Comprehensive Metabolic Panel (01/17/2024) ???Sodium - 144 mmol/L???Potassium - 3.8 mmol/L???Chloride - 105 mmol/L???Bicarbonate Level - 26 mmol/L???Anion Gap - 13???Glucose Level - 114 mg/dL???BUN - 18 mg/dL???Creatinine-Blood - 1.0 mg/dL???Estimated GFR Creatinine - 60 ML/MIN/1.73 M2???Calcium - 9.8 mg/dL???Protein, Total - 6.6 Gm/dL???Alb umin - 4.1 Gm/dL???AG Ratio - 1.6???Alkaline Phosphatase - 83 units/L???AST (SGOT) - 12 units/L???ALT (SGPT) - 8 units/L???Bilirubin, Total - 0.4 mg/dL CPK Total Only (01/17/2024) ???CK, Total - 112 units/L GLUCOSE POC (01/19/2024) ???Glucose, POC - 88 mg/dL Magnesium Level (01/19/2024) ???Magnesium - 1.7 mg/dL pH Venous (01/17/2024) ???pH, Venous - 7.33 TSH (01/19/2024) ???TSH - 0.85 uIU/mL Urinalysis w/hold for Urine Culture (01/17/2024) ???Appear/Color, Urine - LIGHT YELLOW???Specific [place], Urine - 1.011???pH, Urine - 5.5???Albumin, Urine - NEGATIVE???Glucose, Urine - NEGATIVE???Ketones, Urine - NEGATIVE???Bilirubin, Urine - NEGATIVE???Hemoglobin, Urine - NEGATIVE???Nitrite, Urine - NEGATIVE???Leukocyte, Urine - 2+???Urobilinogen - NORMAL???WBC's, Urine - 12 /HPF???RBC's, Urine - NONE SEEN???Squamous Epith - 2 /HPF???Mucus - SLIGHT???Hold Urine Culture - Testing available 48 hours from time of collection. Allergies (NKA means No Known Allergies) Myrbetriq??(Hallucinations) Problems Active Problems??(32) AF (paroxysmal atrial fibrillation)?? Anemia?? Atrial fibrillation?? Martinez esophagus?? Borderline personality disorder?? Chronic Pain?? Chronic rhinosinusitis?? Diabetes type 2, controlled?? Diabetic foot infection?? Essential hypertension?? Fecal incontinence?? GERD - Gastro-esophageal reflux disease?? Major depression?? Major depression in partial remission?? Medicare annual wellness visit, subsequent?? Muscular deconditioning?? Obstructive sleep apnea on CPAP?? Osteoarthritis of both knees?? Peripheral arterial disease?? Rectocele?? Recurrent falls?? Resting tremor?? Severe obesity?? SLEEP APNEA?? Sleep apnea?? Suicidal thoughts?? Suicide attempt?? Toxic metabolic encephalopathy?? Type 2 diabetes mellitus with peripheral neuropathy?? Ulcer of toe due to diabetes?? Urinary incontinence, mixed?? Wound of foot?? Education Materials Below is the list of Educational Leaflet Providered with your Discharge Instructions. [employer] Patient Education - Atorvastatin Oral Tablet?? [employer] Patient Education - Apixaban Oral Tablet?? [employer] Patient Education - Metoprolol Oral Tablet?? [employer] Patient Education - Living with Atrial Fibrillation: Preventing Stroke?? [employer] Patient Education - Atrial Fibrillation?? [employer] Patient Education - Discharge Instructions for Atrial Fibrillation?? [employer] Patient Education - Understanding Atrial Fibrillation (AFib)?? [employer] Patient Education - Preventing Falls: Staying Active?? [employer] Patient Education - Preventing Falls at Home?? [employer] Patient Education - Preventing Falls: Making Changes in Your Living Space?? [employer] Patient Education - Preventing Falls: How to Prepare and What to Do?? [employer] Patient Education - Preventing Falls: Moving Safely Outside?? [employer] Patient Education - Preventing Falls: Make Your Health a Priority?? [employer] Patient Education - After a Fall?? [employer] Patient Education - Fall with Uncertain Cause?? [employer] Patient Education - Fall??Prevention?? [employer] Patient Education - Falls Prevention Initiative?? Valuables and Belongings I fully understand and agree that [facility] accepts no responsibility for all my [...] to send valuables and belongings home. ?? Date for Pt to Sign Valuables/Belongings: 01/17/24 18:46:00 ?? Other Discharge Information ? Case Management Discharge Plan?? Discharge Plan?? Discharge Agency Information?? Discharge Level of Care at Discharge: Homehealth/VNA Agency Escrow Assistant #1: Intake Discharge Rx Program: Discharge Prescription Program Service Categories #1: Occupational Therapy, Physical Therapy, [facility] Discharge Rx Program: Discharge Prescription Program Service Comments #1: A nurse will call you to arrange a visit with you at your home. If you do not hear from agency, please call them. Discharge VNA/Hospice/Home Care: [facility] [phone] ? Pulmonary Rehab Status?? Pulmonary Rehab Discharge Status?? CPAP/BiPAP Mask Type: Full CPAP/BiPAP Mask Size: Medium Respiratory Rate: 16 br/min ? Common Emergency Awareness Tips IS [...] are strongly encouraged to quit. Please call [facility] [employer] Link at [phone] or [phone] ([phone]) or log in to [email or web address] for referrals to smoking cessation programs. ?? 322 Suicide & Crisis Lifeline is available 02/06 if you or someone you know needs to find a reason to keep living. By calling 934 you'll be connected to a skilled, trained counselor at a crisis center in your area. INPATIENT DISCHARGE INSTRUCTIONS SIGNATURE PAGE BEN GARIBAY Location:[facility] Registration Date and Time:01/17/2024 09:12 EST Primary Care Physician: Erik Kim DO, Attending Physician: Darius Robert MD, I BEN GARIBAY, have received the above patient education materials/instructions and have verbalized understanding. If ambulance or transport services are being used I further acknowledge being given a choice of service. ?? If you need to contact me, please call me at this number: . Patient/Executive Community Planning Name: Patient/Executive Community Planning Signature: Relationship to Patient: Witness Name/Signature: Date: * Kennedy CANO, Kena Owen: PERFORM Event Display: Patient Education Leaflets Authored Date: [id number] Atorvastatin Oral Tablet ?? 25711-157 Atorvastatin Oral Tablet Brands: Lipitor Uses To lower high fat levels in blood. ?? Instructions This medicine may be taken with or without food. Store at room temperature away from heat, light, and moisture. Do not keep in the bathroom. Avoid grapefruit and grapefruit juice while on this medicine. It is important that you keep taking each dose of this medicine on time even if you are feeling well. If you forget to take a dose on time, take it as soon as you remember. If it is almost time for thenext dose, do not take the missed dose. Return to your normal schedule. Do not take 2 doses at one time. Drug interactions can change how medicines work or increase risk for side effects. Tell your healthcare providers about all medicines taken. Include prescription and lqia-gyh-cmgqdfb medicines, vitamins, and herbal medicines. Speak with your doctor or pharmacist before starting or stopping any medicine. Keep all appointments for medical exams and tests while on this medicine. ?? Cautions Tell your doctor and pharmacist if you ever had an allergic reaction to a medicine. Do not use the medication any more than instructed. Please check with your doctor before drinking alcohol while on this medicine. Do not breastfeed while on this medicine. During , this medicine should be used only when clearly needed. Talk to your doctor about the risks and benefits. Do not share this medicine with anyone who has not been prescribed this medicine. ?? Side Effects Call your doctor or get medical help right away if you notice any of these more serious side effects: ??? confusion ??? signs of kidney damage (such as change in urine color or bubbly urine) ??? signs of liver damage (such as yellowing of eye or skin, dark urine, or unusual tiredness) ??? memory problems or loss ??? muscle pain or weakness A few people may have an allergic reaction to this medicine. Symptoms can include difficulty breathing, skin rash, itching, swelling, or severe dizziness. If you notice any of these symptoms, seek medical help quickly. ?? Extra Please speak with your doctor, nurse, or pharmacist if you have any questions about this medicine. ?? [email or web address] IMPORTANT NOTE: This document tells you briefly how to take your medicine, but it does not tell youall there is to know about it. Your doctor or pharmacist may give you other documents about your medicine. Please talk to them if you have any questions. Always follow their advice. There is a more complete description of this medicine available in [place]. Scan this code on your smartphone or tablet or use the web address below. You can also ask your pharmacist for a printout. If you have any questions, please ask your pharmacist. The display and use of this drug information is subject to Terms of Use. Copyright(c) 2022 [employer]. ?? [employer]. All rights reserved. This information is not intended as a substitute for professional medical care. Always follow your healthcare professional's instructions. ?? * Kennedy CANO, Kena Owen: PERFORM Event Display: Patient Education Leaflets Authored Date: [id number] Apixaban Oral Tablet ?? [id number] Apixaban Oral Tablet Brands: Eliquis Uses This medicine is used for the following purposes: ??? blood disorder ??? prevent blood clots ??? treatment of blood clots ??? blood clot ?? Instructions This medicine may be taken with or without food. This medicine will work best if you take it at about the same time every day. Store at room temperature away from heat, light, and moisture. Do not keep in the bathroom. It is important that you keep taking each dose of this medicine on time even if you are feeling well. If you forget to take a dose on time, take it as soon as you remember. If it is almost time for thenext dose, do not take the missed dose. Return to your normal schedule. Do not take 2 doses at one time. Drug interactions can change how medicines work or increase risk for side effects. Tell your healthcare providers about all medicines taken. Include prescription and oqef-gnq-gvsltwv medicines, vitamins, and herbal medicines. Speak with your doctor or pharmacist before starting or stopping any medicine. Talk to your doctor before taking other medicines, including aspirins and ibuprofen containing products. Speak to your doctor about which medicines are safe to use while you are on this medicine. It is very important that you follow your doctor's instructions for all blood tests. ?? Cautions This medicine may cause serious bleeding problems in patients taking blood thinner medications. Follow your doctor's instructions carefully to monitor your blood lab tests if you are on blood thinners. Tell your doctor and pharmacist if you ever had an allergic reaction to a medicine. This medicine may cause serious bleeding from the stomach or bowels. Stop this medicine and call your doctor immediately if you see any signs of bleeding. Bleeding can cause pain in the stomach, vomiting up liquid that looks like coffee grounds, and red or dark tarry stools. There is an increased risk of bleeding while on this medicine, please tell your doctor or nurse if you notice any excessive bleeding or bruising. Do not use the medication any more than instructed. Please check with your doctor before drinking alcohol while on this medicine. Do not breastfeed while on this medicine. This medicine can hurt a new baby in the womb. If you become while on this medicine, tell your doctor immediately. Your doctor may switch you to a different medicine. Do not take Penn's wort while on this medicine. Do not share this medicine with anyone who has not been prescribed this medicine. Some patients have serious side effects from this medicine. Ask your pharmacist to show you the information from the Food and Drug Administration (FDA) and discuss it with you. Always refill this medicine before it runs out. ?? Side Effects The following is a list of some common side effects from this medicine. Please speak with your doctor about what you should do if you experience these or other side effects. ??? nosebleeds Call your doctor or get medical help right away if you notice any of these more serious side effects: ??? bleeding or bruising ??? coughing up blood or vomit that looks like coffee grounds ??? fainting??? numbness or tingling in hands and feet ??? severe or persistent headache ??? sudden leg pain, swelling, warmth or redness ??? loss of movement anywhere on the body ??? shortness of breath ??? bloody or dark, tarry stools ??? symptoms of stroke (such as one-sided weakness, slurred speech, confusion) ??? difficulty swallowing ??? unusual or unexplained tiredness or weakness ??? blood in urine ??? blurring or changes of vision A few people may have an allergic reaction to this medicine. Symptoms can include difficulty breathing, skin rash, itching, swelling, or severe dizziness. If you notice any of these symptoms, seek medical help quickly. ?? Extra Please speak with your doctor, nurse, or pharmacist if you have any questions about this medicine. ?? [email or web address] IMPORTANT NOTE: This document tells you briefly how to take your medicine, but it does not tell youall there is to know about it. Your doctor or pharmacist may give you other documents about your medicine. Please talk to them if you have any questions. Always follow their advice. There is a more complete description of this medicine available in [place]. Scan this code on your smartphone or tablet or use the web address below. You can also ask your pharmacist for a printout. If you have any questions, please ask your pharmacist. The display and use of this drug information is subject to Terms of Use. Copyright(c) 2022 [employer]. ?? [employer]. All rights reserved. This information is not intended as a substitute for professional medical care. Always follow your healthcare professional's instructions. ?? * Kennedy CANO, Kena Owen: PERFORM Event Display: Patient Education Leaflets Authored Date: [id number] Metoprolol Oral Tablet ?? [id number] Metoprolol Oral Tablet Brands: Lopressor Uses This medicine is used for the following purposes: ??? angina ??? heart attack ??? heart disease ???high blood pressure ??? irregular heart beat ??? prevent migraine headaches ??? movement disorder ?? Instructions Take the medicine with food. This medicine will work best if you take it at about the same time every day. Store at room temperature away from heat, light, and moisture. Do not keep in the bathroom. It is important that you keep taking each dose of this medicine on time even if you are feeling well. If you forget to take a dose on time, take it as soon as you remember. If it is almost time for thenext dose, do not take the missed dose. Return to your normal schedule. Do not take 2 doses at one time. Drug interactions can change how medicines work or increase risk for side effects. Tell your healthcare providers about all medicines taken. Include prescription and rzzf-wdw-saztwwf medicines, vitamins, and herbal medicines. Speak with your doctor or pharmacist before starting or stopping any medicine. Tell your doctor if symptoms do not get better or if they get worse. If you have diabetes, this medicine may hide some signs of low blood sugar, such as fast heartbeat.Check your blood sugar regularly and for other signs of low blood sugar. Symptoms of low blood sugar may include nausea, shaking, sweating, cold skin, fast heartbeat, hunger, and irritability. If you need to stop this medicine, your doctor may wish to gradually reduce the dosage before stopping. Keep all appointments for medical exams and tests while on this medicine. ?? Cautions Tell your doctor and pharmacist if you ever had an allergic reaction to a medicine. Some patients with weak hearts may have worsening of symptoms. If you notice difficulty breathing, weight gain, or swelling of your legs or ankles, let your doctor know right away. Do not use the medication any more than instructed. This medicine may cause dizziness or fainting, especially after exercising or in hot weather. Be very careful when standing or sitting up quickly. Your ability to stay alert or to react quickly may be impaired by this medicine. Do not drive or operate machinery until you know how this medicine will affect you. Please check with your doctor before drinking alcohol while on this medicine. This medicine passes into breast milk. Ask your doctor before . During , this medicine should be used only when clearly needed. Talk to your doctor about the risks and benefits. Do not share this medicine with anyone who has not been prescribed this medicine. ?? Side Effects The following is a list of some common side effects from this medicine. Please speak with your doctor about what you should do if you experience these or other side effects. ??? diarrhea ??? dizziness or drowsiness ??? lack of energy and tiredness ??? slow heartbeat ??? lightheadedness Call your doctor or get medical help right away if you notice any of these more serious side effects: ??? confusion ??? depression or feeling sad ??? swelling of the legs, feet, and hands ??? fainting ??? cold hands or feet ??? mood changes ??? pale or blue skin, lips or fingernails ??? shortness of breath ??? unusual or unexplained tiredness or weakness ??? sudden or unexplained weight gain A few people may have an allergic reaction to this medicine. Symptoms can include difficulty breathing, skin rash, itching, swelling, or severe dizziness. If you notice any of these symptoms, seek medical help quickly. ?? Extra Please speak with your doctor, nurse, or pharmacist if you have any questions about this medicine. ?? [email or web address] IMPORTANT NOTE: This document tells you briefly how to take your medicine, but it does not tell youall there is to know about it. Your doctor or pharmacist may give you other documents about your medicine. Please talk to them if you have any questions. Always follow their advice. There is a more complete description of this medicine available in [place] Irish. Scan this code on your smartphone or tablet or use the web address below. You can also ask your pharmacist for a printout. If you have any questions, please ask your pharmacist. The display and use of this drug information is subject to Terms of Use. Copyright(c) 2022 [employer]. ?? 6484-2357 The [employer]. All rights reserved. This information is not intended as a substitute for professional medical care. Always follow your healthcare professional's instructions. ?? Patient Care team information Care Team Personnel Name: Armani Reid DO Position: [facility] Renal MD Member Role: Lifetime Consulting Physician Address: Address: [address] [place] [address] [address] [facility] [place] [place] [address]- Name: Maynor Lyons RN Position: [facility] RN Member Role: Primary Care Nurse Name: Erik Kim DO Position: [facility] Physician - Primary Care Member Role: PCP Address: Address: [address] [place] [address] [place] [address]- Name: Dianna Frost RN Position: [facility] RN Member Role: Primary Care Nurse Care Team Related Persons Name: LORENA HARRISON Address: home [address] [place] [address] Name: LAYNE TREADWELL Address: home [address] [place] [address]
--- OUTSIDE RECORDS SUMMARY | 2024-03-09 15:29 | XMS_ITS | Continuity of Care Document ---
Author Organization [facility] Address [address] [facility], 3r d Floor, [address] [place] [address]- Care Team Providers Care Metal Weigher Name Role Phone Erik Kim DO Primary Care Physician [facility]): 08/14/23 - 09/13/23 [facility] [address], 3[address] Floor, [address] [place] [phone]- Allergies, Adverse Reactions, Alerts Substance Reaction Severity [...] influenza virus vaccine, inactivated 08/09/17 Avery rded [id number] 12y+ bivalent booster vax 08/06/22 Recorded pneumococcal 13-valent vaccine 6 07/25/22 Recorded pneumococcal 13-valent vaccine 7 12/14/18 Recorded pneumococcal 13-valent vaccine 12/14/18 Recorded pneumococcal 13-valent vaccine 8 06/06/16 Recorded pneumococcal 20-valent conjugate vaccine 07/25/22 Recorded SARS-CoV-2 mRNA (qqioywv-cfko-uytzd) vax 03/13/22 Recorded SARS-CoV-2 mRNA (bxxjufb-prys-eywhl) vax 9 08/21/21 Recorded SARS-CoV-2 mRNA (beowjxl-iuwg-suzvs) vax 10 01/13/21 Recorded SARS-CoV-2 (COVID-19) mRNA BNT-162b2 vac 09/03/21 Recorded SARS-CoV-2 (COVID-19) Ad26 vaccine 01/13/21 Record ed zoster vaccine, inactivated 03/13/20 Recorded zoster vaccine, inactivated 12/09/19 Recorded Zoster Vaccine Live 11 12/09/19 Recorded Zoster Vaccine Live 03/13/12 Recorded tetanus/diphtheria/pertussis, acel(Tdap) 10/21/11 Recorded Pneumococcal Vaccine (oldterm) 11/08/06 Given pneumococcal 23-valent vaccine 12 11/08/06 Recorde d 1Result Comment: Unit: Unknown Route: Intramuscular Federal Air Marshal: Sanofi Pasteur 2Result Comment: Route: Intramuscular Federal Air Marshal: Sanofi Pasteur 3Result Comment: Unit: Unknown 4Result Comment: Unit: Unknown 5Result Comment: Unit: Unknown 6Result Comment: Unit: Unknown Route: Intramuscular Federal Air Marshal: Pfizer 7Result Comment: Unit: Unknown Route: Intramuscular Federal Air Marshal: WyReproductive Research Technologies 8Result Comment: Unit: Unknown 9Result Comment: Route: Intramuscular Federal Air Marshal: Sanofi Pasteur 10Result Comment: Unit: Unknown Route: Intramuscular Federal Air Marshal: Purple 11Result Comment: Route: Intramuscular Federal Air Marshal: eÇift 12Result Comment: Unit: Unknown Medications amLODIPine 2.5 [...] Replace Required Details, Route to Pharmacy Electronically, [facility]/pharmacy #[id number], Partial fill upon patie... Start Date: 09/08/23 [...] tablet, 3 Refills, Maintenance, 07/21/23 12:40:00 EDT, [facility]/pharmacy #[id number], Partial fill upon patient request if the prescription is for a schedule II opioid drug., 171, cm, 07/03/23 15:08:00 EDT, Shabbir... Start Date: 07/21/23 Status: Ordered Vitamin B12 [...] ago; Other: quit 1973 6 yrs toal 1/4 6; Number of years: 6; Total pack years: 2; entered on: 07/03/23 Sex Patient Care team information Care Team Personnel Name: Armani Reid DO Position: [facility] Renal MD Member Role: Lifetime Consulting Physician Address: Address: [address] [place] [address] [address] [facility] [place] [address]- Name: Erik Kim DO Position: [facility] Physician - Primary Care Member Role: PCP Address: Address: [address] [place] [phone]- Care Team Related Persons Name: LORENA HARRISON Address: home [address] [place] [address] Name: LAYNE TREADWELL Address: home [address] [place] [address]
--- OUTSIDE RECORDS SUMMARY | 2024-03-09 15:29 | XMS_ITS | Continuity of Care Document ---
Author Organization [facility] Syed Gene lt Address [address] [place] [address]- Care Team Providers Care Foreclosure Specialist Name Role Phone Erik Kim DO Primary Care Physician [facility] Date(s): 10/27/23 - 11/26/23 [facility] Adult [address] [place] [address]- Allergies, Adverse Reactions, Alerts Substance Reaction Severity [...] virus vaccine, inactivated 08/09/17 Avery rded SARS-CoV-2(COVID-19)mRNA-LNP vac([id number]) 08/02/23 Recorded Influenza Virus Vaccine (oldterm) 1 [...] Influenza Virus Vaccine (oldterm) 08/26/11 Recorde d [id number] 12y+ bivalent booster vax 08/06/22 Recorded pneumococcal 13-valent vaccine 6 07/25/22 Recorded pneumococcal 13-valent vaccine 7 12/14/18 Recorded pneumococcal 13-valent vaccine 12/14/18 Recorded pneumococcal 13-valent vaccine 8 06/06/16 Recorded SARS-CoV-2 mRNA (mnrnrmj-rxyo-tpazl) vax 03/13/22 Recorded SARS-CoV-2 mRNA (wiayikm-ssjb-yvmea) vax 9 08/21/21 Recorded SARS-CoV-2 mRNA (lqpjbzk-kbpp-dlwct) vax 10 01/13/21 Recorded SARS-CoV-2 (COVID-19) mRNA BNT-162b2 vac 09/03/21 Recorded SARS-CoV-2 (COVID-19) Ad26 vaccine 01/13/21 Record ed zoster vaccine, inactivated 03/13/20 Recorded zoster vaccine, inactivated 12/09/19 Recorded Zoster Vaccine Live 11 12/09/19 Recorded Zoster Vaccine Live 03/13/12 Recorded tetanus/diphtheria/pertussis, acel(Tdap) 10/21/11 Recorded Pneumococcal Vaccine (oldterm) 11/08/06 Given pneumococcal 23-valent vaccine 12 11/08/06 Recorde d 1Result Comment: Unit: Unknown Route: Intramuscular Cloth Shearing Supervisor: Sanofi Pasteur 2Result Comment: Route: Intramuscular Cloth Shearing Supervisor: Sanofi Pasteur 3Result Comment: Unit: Unknown 4Result Comment: Unit: Unknown 5Result Comment: Unit: Unknown 6Result Comment: Unit: Unknown Route: Intramuscular Cloth Shearing Supervisor: Pfizer 7Result Comment: Unit: Unknown Route: Intramuscular Cloth Shearing Supervisor: [email or web address] 8Result Comment: Unit: Unknown 9Result Comment: Route: Intramuscular Cloth Shearing Supervisor: Sanofi Pasteur 10Result Comment: Unit: Unknown Route: Intramuscular Cloth Shearing Supervisor: PushPoint 11Result Comment: Route: Intramuscular Cloth Shearing Supervisor: GlaxoSmithKline 12Result Comment: Unit: Unknown Medications acetaminophen 325 mg oral tablet TAKE 2 TABLETS (650 MG)ORALLY EVERY 6 HOURS NEEDED FOR PAIN, MILD (PAIN SCALE 1-3) Start Date: 09/22/23 Status: Ordered amLODIPine 2.5 mg oral tablet 1 tablet, By Mouth, Daily, # 90 tablet, 0 Refills, Maintenance, 11/12/23 12:11:00 EST, [facility], 170.18, cm, 10/30/23 14:25:00 EST, Height, 127.2, kg, 10/02/23 3:00:00 EST, Dry Weight Start Date: 11/12/23 Status: Ordered atorvastatin 40 mg oral tablet 1 tablet = 40 mg, By Mouth, Daily, # 90 tablet, 3 Refills, Maintenance, 10/27/23 11:06:00 EST, Tablet, [facility]/pharmacy #[id number], Partial fill upon patient request if [...] 11 Refills, Maintenance, 11/17/23 9:45:00 EST, [facility]/pharmacy #[id number], Partial fill upon patient request if [...] Required Details, Route to Pharmacy Electronically, [facility]/pharmacy #[id number], Partial fill upon patient reque... Start Date: 10/27/23 Status: Ordered Gemtesa 75 mg oral tablet 1 tablet = 75 mg, By Mouth, Daily, # 30 tablet, 11 Refills, Maintenance, 11/17/23 9:45:00 EST, [facility]/pharmacy #[id number], Partial fill upon patient request if [...] 11:05:00 EST, Route to Pharmacy Electronically, [facility]/pharmacy #[id number], Partial fill upon patientrequest if the prescription is for a schedule II op... Start Date: 10/27/23 Status: Ordered Milk of Magnesia = 1,200 mg, By Mouth, 3 times a day, 0 Refills, Maintenance, 09/22/23 15:30:00 EST, Partial fill upon patient request if the prescription is for a schedule II opioid drug. Start Date: 09/22/23 Status: Ordered nystatin topical [id number] u/gm powder 1 application, Topically, 3 times [...] Team Personnel Name: Armani Reid DO Position: [facility] Renal MD Member Role: Lifetime Consulting Physician Address: Address: [address] [facility] [address] [facility] [place] [address]- Name: Erik Kim DO Position: [facility] Physician - Primary Care Member Role: PCP Address: Address: [address] [place], [place] [address] Care Team Related Persons Name: LORENA HARRISON Address: home [address] [place] [address] Name: LAYNE TREADWELL Address: home [address] [place] [address]
--- OUTSIDE RECORDS SUMMARY | 2024-03-09 15:29 | XMS_ITS | Continuity of Care Document ---
Author Organization [facility] Eric Lynch Gene Address [address] [place] [address]- Care Team Providers Care Formulation Technician Name Role Phone Erik Kim DO Primary Care Physician [facility]): 08/20/23 - 09/19/23 [facility] Adult [address] [place] [address]- Allergies, Adverse Reactions, Alerts Substance Reaction Severity [...] influenza virus vaccine, inactivated 08/09/17 Avery rded [id number] 12y+ bivalent booster vax 08/06/22 Recorded pneumococcal 13-valent vaccine 6 07/25/22 Recorded pneumococcal 13-valent vaccine 7 12/14/18 Recorded pneumococcal 13-valent vaccine 12/14/18 Recorded pneumococcal 13-valent vaccine 8 06/06/16 Recorded pneumococcal 20-valent conjugate vaccine 07/25/22 Recorded SARS-CoV-2 mRNA (arggfvh-kpeh-xpabv) vax 03/13/22 Recorded SARS-CoV-2 mRNA (dgddrkk-kieu-djftz) vax 9 08/21/21 Recorded SARS-CoV-2 mRNA (jutzjxw-fdbh-zpycd) vax 10 01/13/21 Recorded SARS-CoV-2 (COVID-19) mRNA BNT-162b2 vac 09/03/21 Recorded SARS-CoV-2 (COVID-19) Ad26 vaccine 01/13/21 Record ed zoster vaccine, inactivated 03/13/20 Recorded zoster vaccine, inactivated 12/09/19 Recorded Zoster Vaccine Live 11 12/09/19 Recorded Zoster Vaccine Live 03/13/12 Recorded tetanus/diphtheria/pertussis, acel(Tdap) 10/21/11 Recorded Pneumococcal Vaccine (oldterm) 11/08/06 Given pneumococcal 23-valent vaccine 12 11/08/06 Recorde d 1Result Comment: Unit: Unknown Route: Intramuscular Tax Agent: Sanofi Pasteur 2Result Comment: Route: Intramuscular Tax Agent: Sanofi Pasteur 3Result Comment: Unit: Unknown 4Result Comment: Unit: Unknown 5Result Comment: Unit: Unknown 6Result Comment: Unit: Unknown Route: Intramuscular Tax Agent: Pfizer 7Result Comment: Unit: Unknown Route: Intramuscular Tax Agent: Wyeth 8Result Comment: Unit: Unknown 9Result Comment: Route: Intramuscular Tax Agent: Sanofi Pasteur 10Result Comment: Unit: Unknown Route: Intramuscular Tax Agent: Suleiman 11Result Comment: Route: Intramuscular Tax Agent: GlaxTakeChargeithKline 12Result Comment: Unit: Unknown Medications amLODIPine 2.5 [...] Pharmacy Electronically, [facility]/pharmacy #[id number], Partial fill upon patie... Start Date: 09/08/23 [...] tablet, 3 Refills, Maintenance, 07/21/23 12:40:00 EDT, [facility]/pharmacy #[id number], Partial fill upon patient [...] Team Personnel Name: Armani Reid DO Position: [facility] Renal MD Member Role: Lifetime Consulting Physician Address: Address: [address] [place] [address] [address] [facility] [place] [address]- Name: Erik Kim DO Position: [facility] Physician - Primary Care Member Role: PCP Address: Address: [address] [place] [id number]- Care Team Related Persons Name: LORENA HARRISON Address: home [address] [place] [address] Name: LAYNE TREADWELL Address: home [address] [place] [address]
--- OUTSIDE RECORDS SUMMARY | 2024-03-09 15:29 | XMS_ITS | Continuity of Care Document ---
Author Organization [facility] Address [address], [address], [address] [place] [address]- Care Team Providers Care Social Media Community Manager Name Role Phone Erik Kim DO Primary Care Physician [facility]s): 10/10/23 - 11/09/23 [facility] [address], [address], [address] [place] [address] Attending Physician: Amna Darling Admitting Physician: AdmAmna [...] virus vaccine, inactivated 08/09/17 Avery rded SARS-CoV-2(COVID-19)mRNA-LNP vac(esl300) 08/02/23 Recorded Influenza Virus Vaccine (oldterm) 1 [...] Influenza Virus Vaccine (oldterm) 08/26/11 Recorde d [id number] 12y+ bivalent booster vax 08/06/22 Recorded pneumococcal 13-valent vaccine 6 07/25/22 Recorded pneumococcal 13-valent vaccine 7 12/14/18 Recorded pneumococcal 13-valent vaccine 12/14/18 Recorded pneumococcal 13-valent vaccine 8 06/06/16 Recorded SARS-CoV-2 mRNA (reuvyis-bwwh-ftfam) vax 03/13/22 Recorded SARS-CoV-2 mRNA (awncaep-xtom-yvkrh) vax 9 08/21/21 Recorded SARS-CoV-2 mRNA (rrlbkly-kvrz-mymip) vax 10 01/13/21 Recorded SARS-CoV-2 (COVID-19) mRNA BNT-162b2 vac 09/03/21 Recorded SARS-CoV-2 (COVID-19) Ad26 vaccine 01/13/21 Record ed zoster vaccine, inactivated 03/13/20 Recorded zoster vaccine, inactivated 12/09/19 Recorded Zoster Vaccine Live 11 12/09/19 Recorded Zoster Vaccine Live 03/13/12 Recorded tetanus/diphtheria/pertussis, acel(Tdap) 10/21/11 Recorded Pneumococcal Vaccine (oldterm) 11/08/06 Given pneumococcal 23-valent vaccine 12 11/08/06 Recorde d 1Result Comment: Unit: Unknown Route: Intramuscular Senior Safety Management Consultant: Sanofi Pasteur 2Result Comment: Route: Intramuscular Senior Safety Management Consultant: Sanofi Pasteur 3Result Comment: Unit: Unknown 4Result Comment: Unit: Unknown 5Result Comment: Unit: Unknown 6Result Comment: Unit: Unknown Route: Intramuscular Senior Safety Management Consultant: Pfizer 7Result Comment: Unit: Unknown Route: Intramuscular Senior Safety Management Consultant: Wyeth 8Result Comment: Unit: Unknown 9Result Comment: Route: Intramuscular Senior Safety Management Consultant: Sanofi Pasteur 10Result Comment: Unit: Unknown Route: Intramuscular Senior Safety Management Consultant: Titan[employer] 11Result Comment: Route: Intramuscular Senior Safety Management Consultant: GlaxQordobaKline 12Result Comment: Unit: Unknown Medications acetaminophen 325 [...] Maintenance, 10/27/23 11:06:00 EST, Tablet, [facility]/pharmacy #[id number], Partial fill upon patient request [...] Details, Route to Pharmacy Electronically, [facility]/pharmacy #[id number], Partial fill upon patient reque... [...] 11/16/23 17:37:00 EST, 11/06/23 17:37:00 EST, Tablet, [facility]/pharmacy #[id number], Partial fill upon patient request [...] Pharmacy Electronically, [facility]/pharmacy #[id number], Partial fill upon patientrequest if the prescription is for a schedule II op... Start Date: 10/27/23 Status: Ordered Milk of Magnesia = 1,200 mg, By Mouth, 3 times a day, 0 Refills, Maintenance, 09/22/23 15:30:00 EST, Partial fill upon patient request if the prescription is for a schedule II opioid drug. Start Date: 09/22/23 Status: Ordered nystatin topical [id number] u/gm powder 1 application, Topically, 3 times a day, to rash, # 60 Gm, 0 Refills, Maintenance, 10/27/23 11:02:00 EST, Powder, [facility]/pharmacy #[id number], Partial fill upon patient request [...] Role: Lifetime Consulting Physician Address: Address: [address] [place] [address] [address] [facility] [place] [address]- Name: Erik Kim DO Position: [facility] Physician - Primary Care Member Role: PCP Address: Address: [address] [facility] [place] [address]- Care Team Related Persons Name: LORENA HARRISON Address: home [address] [place] [address] Name: LAYNE TREADWELL Address: home [address] [place] [address]
--- OUTSIDE RECORDS SUMMARY | 2024-03-09 15:29 | XMS_ITS | Continuity of Care Document ---
Author Organization [facility] Syed Gene Address [address] [place] [address]- Care Team Providers Care Applied Researcher Name Role Phone Erik Kim DO Primary Care Physician [facility]): 01/07/24 - 02/06/24 [facility] Adult [address] [place] [address]- Allergies, Adverse Reactions, Alerts Substance Reaction Severity [...] virus vaccine, inactivated 08/09/17 Avery rded SARS-CoV-2(COVID-19)mRNA-LNP vac([id number]) 08/02/23 Recorded Influenza Virus Vaccine (oldterm) 1 [...] Influenza Virus Vaccine (oldterm) 08/26/11 Recorde d [id number] 12y+ bivalent booster vax 08/06/22 Recorded pneumococcal 13-valent vaccine 6 07/25/22 Recorded pneumococcal 13-valent vaccine 7 12/14/18 Recorded pneumococcal 13-valent vaccine 12/14/18 Recorded pneumococcal 13-valent vaccine 8 06/06/16 Recorded SARS-CoV-2 mRNA (ornzgjk-bzxz-yteea) vax 03/13/22 Recorded SARS-CoV-2 mRNA (rysqvlq-ilyk-ifftk) vax 9 08/21/21 Recorded SARS-CoV-2 mRNA (guzttbj-rzjc-kkgbj) vax 10 01/13/21 Recorded SARS-CoV-2 (COVID-19) mRNA BNT-162b2 vac 09/03/21 Recorded SARS-CoV-2 (COVID-19) Ad26 vaccine 01/13/21 Record ed zoster vaccine, inactivated 03/13/20 Recorded zoster vaccine, inactivated 12/09/19 Recorded Zoster Vaccine Live 11 12/09/19 Recorded Zoster Vaccine Live 03/13/12 Recorded tetanus/diphtheria/pertussis, acel(Tdap) 10/21/11 Recorded Pneumococcal Vaccine (oldterm) 11/08/06 Given pneumococcal 23-valent vaccine 12 11/08/06 Recorde d 1Result Comment: Unit: Unknown Route: Intramuscular Control Chemist: Sanofi Pasteur 2Result Comment: Route: Intramuscular Control Chemist: Sanofi Pasteur 3Result Comment: Unit: Unknown 4Result Comment: Unit: Unknown 5Result Comment: Unit: Unknown 6Result Comment: Unit: Unknown Route: Intramuscular Control Chemist: Pfizer 7Result Comment: Unit: Unknown Route: Intramuscular Control Chemist: Wyeth 8Result Comment: Unit: Unknown 9Result Comment: Route: Intramuscular Control Chemist: Sanofi Pasteur 10Result Comment: Unit: Unknown Route: Intramuscular Control Chemist: Suleiman 11Result Comment: Route: Intramuscular Control Chemist: GlaxoSmithKline 12Result Comment: Unit: Unknown Medications acetaminophen [...] Refills, Maintenance, 12/23/23 17:15:00 EST, [facility], 170.18, cm, 12/17/23 10:17:00 EST, Height, 127.2, [...] 12/23/23 17:13:00EST, Tablet, [facility]/pharmacy #[id number], Partial fill upon patient request if the [...] Start Date: 10/27/23 Status: Ordered nystatin topical [id number] u/gm powder See Instructions, APPLY TOPICALLY 3 TIMES A DAY TO RASH, # 60 Gm, 1 Refills, Maintenance, 02/02/24 7:47:00 EDT, [facility], 30, APPLY TOPICALLY 3 TIMES A DAY TO RASH, 170, cm, 01/19/24 14:19:00 EDT, Height, 136, kg, 01/17/24 9:30:00 EST, Dry Weight Start Date: 02/02/24 Status: Ordered omeprazole 40 mg oral enteric coated capsule 1 capsule = 40 mg, By Mouth, Daily, # 90 capsule, 3 Refills, Maintenance, 12/23/23 17:13:00 EST, ECCapsule, [facility]/pharmacy #[id number], Partial fill upon patient request if the [...] Team Personnel Name: Armani Reid DO Position: [facility] Renal MD Member Role: Lifetime Consulting Physician Address: Address: [address] [place] [address] [address] [facility] [place] [address]- Name: Maynor Lyons RN Position: [facility] RN Member Role: Primary Care Nurse Name: Erik Kim DO Position: [facility] Physician - Primary Care Member Role: PCP Address: Address: [address] [place] [address]- Name: Dianna Frost RN Position: [facility] RN Member Role: Primary Care Nurse Care Team Related Persons Name: LORENA HARRISON Address: home [address] [place] [address] Name: LAYNE TREADWELL Address: home [address] [place] [address]
--- OUTSIDE RECORDS SUMMARY | 2024-03-09 15:29 | XMS_ITS | Continuity of Care Document ---
Author Organization [facility] Syed Gene lt Address [address] [place] [address]- Care Team Providers Care Trailer Driver Name Role Phone Erik Kim DO Primary Care Physician [facility](s): 10/31/23 - 11/30/23 [facility] Adult [address] [place] [address]- Allergies, Adverse Reactions, Alerts Substance Reaction Severity [...] virus vaccine, inactivated 08/09/17 Avery rded SARS-CoV-2(COVID-19)mRNA-LNP vac([id number]) 08/02/23 Recorded Influenza Virus Vaccine (oldterm) 1 [...] Influenza Virus Vaccine (oldterm) 08/26/11 Recorde d [id number] 12y+ bivalent booster vax 08/06/22 Recorded pneumococcal 13-valent vaccine 6 07/25/22 Recorded pneumococcal 13-valent vaccine 7 12/14/18 Recorded pneumococcal 13-valent vaccine 12/14/18 Recorded pneumococcal 13-valent vaccine 8 06/06/16 Recorded SARS-CoV-2 mRNA (zgmwtpf-xeeo-wdkce) vax 03/13/22 Recorded SARS-CoV-2 mRNA (lynvpno-thee-mrgxj) vax 9 08/21/21 Recorded SARS-CoV-2 mRNA (adndnti-muqk-patlu) vax 10 01/13/21 Recorded SARS-CoV-2 (COVID-19) mRNA BNT-162b2 vac 09/03/21 Recorded SARS-CoV-2 (COVID-19) Ad26 vaccine 01/13/21 Record ed zoster vaccine, inactivated 03/13/20 Recorded zoster vaccine, inactivated 12/09/19 Recorded Zoster Vaccine Live 11 12/09/19 Recorded Zoster Vaccine Live 03/13/12 Recorded tetanus/diphtheria/pertussis, acel(Tdap) 10/21/11 Recorded Pneumococcal Vaccine (oldterm) 11/08/06 Given pneumococcal 23-valent vaccine 12 11/08/06 Recorde d 1Result Comment: Unit: Unknown Route: Intramuscular Grants Officer: Sanofi Pasteur 2Result Comment: Route: Intramuscular Grants Officer: Sanofi Pasteur 3Result Comment: Unit: Unknown 4Result Comment: Unit: Unknown 5Result Comment: Unit: Unknown 6Result Comment: Unit: Unknown Route: Intramuscular Grants Officer: Pfizer 7Result Comment: Unit: Unknown Route: Intramuscular Grants Officer: WyVquence 8Result Comment: Unit: Unknown 9Result Comment: Route: Intramuscular Grants Officer: Sanofi Pasteur 10Result Comment: Unit: Unknown Route: Intramuscular Grants Officer: Swarmforce 11Result Comment: Route: Intramuscular Grants Officer: GlaxoSmithKline 12Result Comment: Unit: Unknown Medications acetaminophen 325 mg oral tablet TAKE 2 TABLETS (650 MG)ORALLY EVERY 6 HOURS NEEDED FOR PAIN, MILD (PAIN SCALE 1-3) Start Date: 09/22/23 Status: Ordered amLODIPine 2.5 mg oral tablet 1 tablet, By Mouth, Daily, # 90 tablet, 0 Refills, Maintenance, 11/12/23 12:11:00 EST, [facility], 170.18, cm, 10/30/23 14:25:00 EST, Height, 127.2, kg, 10/02/23 3:00:00 EST, Dry Weight Start Date: 11/12/23 Status: Ordered atorvastatin 40 mg oral tablet 1 tablet = 40 mg, By Mouth, Daily, # 90 tablet, 3 Refills, Maintenance, 10/27/23 11:06:00 EST, Tablet, [facility]/pharmacy #[id number], [...] Electronically, [facility]/pharmacy #[id number], Partial fill upon patientrequest if the prescription is for a schedule II op... Start Date: 10/27/23 Status: Ordered Milk of Magnesia = 1,200 mg, By Mouth, 3 times a day, 0 Refills, Maintenance, 09/22/23 15:30:00 EST, Partial fill upon patient request if the prescription is for a schedule II opioid drug. Start Date: 09/22/23 Status: Ordered nystatin topical [id number] u/gm powder 1 application, Topically, 3 times [...] Role: Lifetime Consulting Physician Address: Address: [address] [facility] [address] [facility] [place] [address]- Name: Erik Kim DO Position: [facility] Physician - Primary Care Member Role: PCP Address: Address: [address] [place], [place] [address] Care Team Related Persons Name: LORENA HARRISON Address: home [address] [place] [address] Name: LAYNE TREADWELL Address: home [address] [place] [address]
--- OUTSIDE RECORDS SUMMARY | 2024-03-09 15:29 | XMS_ITS | Continuity of Care Document ---
Author Organization [facility] Syed Gene Address [address] [place] [address]- Care Team Providers Care Division Road Supervisor Name Role Phone Erik Kim DO Primary Care Physician [phone] [facility] Date[facility]s): 12/31/23 - 01/30/24 [facility] [place] Adult [address] [place] [address]- Allergies, Adverse Reactions, Alerts Substance Reaction Severity [...] virus vaccine, inactivated 08/09/17 Avery rded SARS-CoV-2(COVID-19)mRNA-LNP vac([id number]) 08/02/23 Recorded Influenza Virus Vaccine (oldterm) 1 [...] Influenza Virus Vaccine (oldterm) 08/26/11 Recorde d [id number] 12y+ bivalent booster vax 08/06/22 Recorded pneumococcal 13-valent vaccine 6 07/25/22 Recorded pneumococcal 13-valent vaccine 7 12/14/18 Recorded pneumococcal 13-valent vaccine 12/14/18 Recorded pneumococcal 13-valent vaccine 8 06/06/16 Recorded SARS-CoV-2 mRNA (sqhfvax-mtdb-wnomc) vax 03/13/22 Recorded SARS-CoV-2 mRNA (arlobfd-ullt-rfmcc) vax 9 08/21/21 Recorded SARS-CoV-2 mRNA (uwwnlxs-dotg-rntum) vax 10 01/13/21 Recorded SARS-CoV-2 (COVID-19) mRNA BNT-162b2 vac 09/03/21 Recorded SARS-CoV-2 (COVID-19) Ad26 vaccine 01/13/21 Record ed zoster vaccine, inactivated 03/13/20 Recorded zoster vaccine, inactivated 12/09/19 Recorded Zoster Vaccine Live 11 12/09/19 Recorded Zoster Vaccine Live 03/13/12 Recorded tetanus/diphtheria/pertussis, acel(Tdap) 10/21/11 Recorded Pneumococcal Vaccine (oldterm) 11/08/06 Given pneumococcal 23-valent vaccine 12 11/08/06 Recorde d 1Result Comment: Unit: Unknown Route: Intramuscular Yard Rigger: Sanofi Pasteur 2Result Comment: Route: Intramuscular Yard Rigger: Sanofi Pasteur 3Result Comment: Unit: Unknown 4Result Comment: Unit: Unknown 5Result Comment: Unit: Unknown 6Result Comment: Unit: Unknown Route: Intramuscular Yard Rigger: Pfizer 7Result Comment: Unit: Unknown Route: Intramuscular Yard Rigger: Wyeth 8Result Comment: Unit: Unknown 9Result Comment: Route: Intramuscular Yard Rigger: Sanofi Pasteur 10Result Comment: Unit: Unknown Route: Intramuscular Yard Rigger: Suleiman 11Result Comment: Route: Intramuscular Yard Rigger: GlaxoSmithKline 12Result Comment: Unit: Unknown Medications acetaminophen [...] Refills, Maintenance, 12/23/23 17:15:00 EST, [facility], 170.18, cm, 12/17/23 10:17:00 EST, Height, 127.2, kg, 10/02/23 3:00:00 EST, Dry Weight Start Date: 12/23/23 Status: Ordered estradiol 0.1 mg/g vaginal cream = 1 Gm, Vaginally, Daily at bedtime, # 30 Gm, 11 Refills, Maintenance, 11/17/23 9:45:00 EST, [facility]/pharmacy #[id number], Partial fill upon [...] 11 Refills, Maintenance, 11/17/23 9:45:00 EST, [facility]/pharmacy #[id number], Partial fill upon [...] tablet, 2 Refills, Maintenance, 12/23/23 17:13:00EST, Tablet, [facility]/pharmacy #[id number], Partial fill upon patient request if the [...] Start Date: 10/27/23 Status: Ordered nystatin topical [id number] u/gm powder See Instructions, APPLY TOPICALLY 3 TIMES A DAY TO RASH, # 60 Gm, 0 Refills, Maintenance, 12/23/23 17:15:00 EST, [facility], 30, APPLY TOPICALLY 3 TIMES A DAY TO RASH, 170.18, cm, 12/17/23 10:17:00 EST, Height, 127.2, kg, 10/02/23 3:00:00 EST, Dr... Start Date: 12/23/23 Status: Ordered nystatin topical [id number] u/gm powder 1 application, Topically, 3 times [...] 3 Refills, Maintenance, 12/23/23 17:13:00 EST, ECCapsule, [facility]/pharmacy #[id number], Partial fill upon patient request [...] team information Care Team Personnel Name: Armani eRid DO Position: [facility] Renal MD Member Role: Lifetime Consulting Physician Address: Address: [address] [place] [address] [address] [facility] [place] [address]- Name: Maynor Lyons RN Position: [facility] RN Member Role: Primary Care Nurse Name: Erik Kim DO Position: [facility] Physician - Primary Care Member Role: PCP Address: Address: [address] [place] [address]- Name: Dianna Frost RN Position: [facility] RN Member Role: Primary Care Nurse Care Team Related Persons Name: LORENA HARRISON Address: home [address] [place] [address] Name: LAYNE TREADWELL Address: home [address] [place] [address]
--- OUTSIDE RECORDS SUMMARY | 2024-03-09 15:29 | XMS_ITS | Continuity of Care Document ---
Author Organization [facility] Eric Lynch Gene lt Address [address] [place] [address]- Care Team Providers Care Advisor Advocate Angel Co Founder Name Role Phone Erik Kim DO Primary Care Physician [facility] Date(s): 10/30/23 - 11/29/23 [facility] Adult [address] [place] [address]- Allergies, Adverse Reactions, Alerts Substance Reaction Severity [...] virus vaccine, inactivated 08/09/17 Avery rded SARS-CoV-2(COVID-19)mRNA-LNP vac([id number]) 08/02/23 Recorded Influenza Virus Vaccine (oldterm) 1 [...] Influenza Virus Vaccine (oldterm) 08/26/11 Recorde d [id number] 12y+ bivalent booster vax 08/06/22 Recorded pneumococcal 13-valent vaccine 6 07/25/22 Recorded pneumococcal 13-valent vaccine 7 12/14/18 Recorded pneumococcal 13-valent vaccine 12/14/18 Recorded pneumococcal 13-valent vaccine 8 06/06/16 Recorded SARS-CoV-2 mRNA (ctvmlfn-jczq-scxfo) vax 03/13/22 Recorded SARS-CoV-2 mRNA (ghzkwrv-rrcg-aaaps) vax 9 08/21/21 Recorded SARS-CoV-2 mRNA (eychioe-hbgb-fqtgf) vax 10 01/13/21 Recorded SARS-CoV-2 (COVID-19) mRNA BNT-162b2 vac 09/03/21 Recorded SARS-CoV-2 (COVID-19) Ad26 vaccine 01/13/21 Record ed zoster vaccine, inactivated 03/13/20 Recorded zoster vaccine, inactivated 12/09/19 Recorded Zoster Vaccine Live 11 12/09/19 Recorded Zoster Vaccine Live 03/13/12 Recorded tetanus/diphtheria/pertussis, acel(Tdap) 10/21/11 Recorded Pneumococcal Vaccine (oldterm) 11/08/06 Given pneumococcal 23-valent vaccine 12 11/08/06 Recorde d 1Result Comment: Unit: Unknown Route: Intramuscular Political Science Research Assistant: Sanofi Pasteur 2Result Comment: Route: Intramuscular Political Science Research Assistant: Sanofi Pasteur 3Result Comment: Unit: Unknown 4Result Comment: Unit: Unknown 5Result Comment: Unit: Unknown 6Result Comment: Unit: Unknown Route: Intramuscular Political Science Research Assistant: Pfizer 7Result Comment: Unit: Unknown Route: Intramuscular Political Science Research Assistant: WyMy-Apps 8Result Comment: Unit: Unknown 9Result Comment: Route: Intramuscular Political Science Research Assistant: Sanofi Pasteur 10Result Comment: Unit: Unknown Route: Intramuscular Political Science Research Assistant: AudioBeta 11Result Comment: Route: Intramuscular Political Science Research Assistant: GlaxoSmithKline 12Result Comment: Unit: Unknown Medications acetaminophen 325 mg oral tablet TAKE 2 TABLETS (650 MG)ORALLY EVERY 6 HOURS NEEDED FOR PAIN, MILD (PAIN SCALE 1-3) Start Date: 09/22/23 Status: Ordered amLODIPine 2.5 mg oral tablet 1 tablet, By Mouth, Daily, # 90 tablet, 0 Refills, Maintenance, 11/12/23 12:11:00 EST, [facility], 170.18, cm, 10/30/23 14:25:00 EST, Height, 127.2, kg, 10/02/23 3:00:00 EST, Dry Weight Start Date: 11/12/23 Status: Ordered atorvastatin 40 mg oral tablet 1 tablet = 40 mg, By Mouth, Daily, # 90 tablet, 3 Refills, Maintenance, 10/27/23 11:06:00 EST, Tablet, [facility]/pharmacy #[id number], Partial fill upon patient [...] Gm, 11 Refills, Maintenance, 11/17/23 9:45:00 EST, [facility]/pharmacy #[id number], Partial fill upon patient [...] Replace Required Details, Route to Pharmacy Electronically, [facility]/pharmacy #[id number], Partial fill upon patient reque... Start Date: 10/27/23 Status: Ordered Gemtesa 75 mg oral tablet 1 tablet = 75 mg, By Mouth, Daily, # 30 tablet, 11 Refills, Maintenance, 11/17/23 9:45:00 EST, [facility]/pharmacy #[id number], Partial fill upon patient [...] 10/27/23 11:05:00 EST, Route to Pharmacy Electronically, [facility]/pharmacy #[id number], Partial fill upon patientrequest if the prescription is for a schedule II op... Start Date: 10/27/23 Status: Ordered Milk of Magnesia = 1,200 mg, By Mouth, 3 times a day, 0 Refills, Maintenance, 09/22/23 15:30:00 EST, Partial fill upon patient request if the prescription is for a schedule II opioid drug. Start Date: 09/22/23 Status: Ordered nystatin topical [id number] u/gm powder 1 application, Topically, 3 times [...] Name: Armani Reid DO Position: [facility] Renal MD Member Role: Lifetime Consulting Physician Address: Address: [address] [facility] [facility] [place] [address]- Name: Erik Kim DO Position: [facility] Physician - Primary Care Member Role: PCP Address: Address: [address] [place], [place] [address] Care Team Related Persons Name: LORENA HARRISON Address: home [address] [place] [address] Name: LAYNE TREADWELL Address: home [address] [place] [address]
--- OUTSIDE RECORDS SUMMARY | 2024-03-09 15:29 | XMS_ITS | Continuity of Care Document ---
Author Organization [facility] Eric Lynch Gene lt Address [address] [place] [address]- Care Team Providers Care Telepathist Name Role Phone Erik Kim DO Primary Care Physician [phone] [facility] Date(s): 10/30/23 - 11/06/23 [facility] [place] Adult [address] [place] [address]- Encounter Diagnosis Wound, open, toe(Discharge Diagnosis) - 10/30/23 Attending Physician: Luanne Tran NP Allergies, Adverse Reactions, Alerts Substance Reaction Severity [...] virus vaccine, inactivated 08/09/17 Avery rded SARS-CoV-2(COVID-19)mRNA-LNP vac([id number]) 08/02/23 Recorded Influenza Virus Vaccine (oldterm) 1 [...] Influenza Virus Vaccine (oldterm) 08/26/11 Recorde d [id number] 12y+ bivalent booster vax 08/06/22 Recorded pneumococcal 13-valent vaccine 6 07/25/22 Recorded pneumococcal 13-valent vaccine 7 12/14/18 Recorded pneumococcal 13-valent vaccine 12/14/18 Recorded pneumococcal 13-valent vaccine 8 06/06/16 Recorded SARS-CoV-2 mRNA (nljosck-tjsv-otkgm) vax 03/13/22 Recorded SARS-CoV-2 mRNA (eiaefsl-yrfm-yfeas) vax 9 08/21/21 Recorded SARS-CoV-2 mRNA (xnepeah-ppyl-xwzdf) vax 10 01/13/21 Recorded SARS-CoV-2 (COVID-19) mRNA BNT-162b2 vac 09/03/21 Recorded SARS-CoV-2 (COVID-19) Ad26 vaccine 01/13/21 Record ed zoster vaccine, inactivated 03/13/20 Recorded zoster vaccine, inactivated 12/09/19 Recorded Zoster Vaccine Live 11 12/09/19 Recorded Zoster Vaccine Live 03/13/12 Recorded tetanus/diphtheria/pertussis, acel(Tdap) 10/21/11 Recorded Pneumococcal Vaccine (oldterm) 11/08/06 Given pneumococcal 23-valent vaccine 12 11/08/06 Recorde d 1Result Comment: Unit: Unknown Route: Intramuscular Wind Turbine Controls Engineer: Sanofi Pasteur 2Result Comment: Route: Intramuscular Wind Turbine Controls Engineer: Sanofi Pasteur 3Result Comment: Unit: Unknown 4Result Comment: Unit: Unknown 5Result Comment: Unit: Unknown 6Result Comment: Unit: Unknown Route: Intramuscular Wind Turbine Controls Engineer: Pfizer 7Result Comment: Unit: Unknown Route: Intramuscular Wind Turbine Controls Engineer: Wyeth 8Result Comment: Unit: Unknown 9Result Comment: Route: Intramuscular Wind Turbine Controls Engineer: Sanofi Pasteur 10Result Comment: Unit: Unknown Route: Intramuscular Wind Turbine Controls Engineer: Suleiman 11Result Comment: Route: Intramuscular Wind Turbine Controls Engineer: GlaxoSmithKline 12Result Comment: Unit: Unknown Medications [...] 3 Refills, Maintenance, 10/27/23 11:06:00 EST, Tablet, [facility]/pharmacy #[id number], Partial fill upon patient [...] Replace Required Details, Route to Pharmacy Electronically, [facility]/pharmacy #[id number], Partial fill upon patient [...] 11/16/23 17:37:00 EST, 11/06/23 17:37:00 EST, Tablet, [facility]/pharmacy #[id number], Partial fill upon patient [...] 10/27/23 11:05:00 EST, Route to Pharmacy Electronically, [facility]/pharmacy #[id number], Partial fill upon patientrequest if the prescription is for a schedule II op... Start Date: 10/27/23 Status: Ordered Milk of Magnesia = 1,200 mg, By Mouth, 3 times a day, 0 Refills, Maintenance, 09/22/23 15:30:00 EST, Partial fill upon patient request if the prescription is for a schedule II opioid drug. Start Date: 09/22/23 Status: Ordered nystatin topical [id number] u/gm powder 1 application, Topically, 3 times a day, to rash, # 60 Gm, 0 Refills, Maintenance, 10/27/23 11:02:00 EST, Powder, [facility]/pharmacy #[id number], Partial fill upon patient [...] Diagnosis Diagnosis Type Effective Dates Health Status inical Service Informant Wound, open, toe Discharge Diagnosis 10/30/23 Vital Signs Most recent to oldest [Reference Range]: 1 Height 170.18 cm (10/30/23 2:25 PM) Oxygen Saturation [94-100 %] 98 % (10/30/23 2:25 PM) Pulse Rate [55-90 bpm] 82 bpm (10/30/23 2:25 PM) Blood Pressure [90-138/55-84 mm Hg] 127/ 84mm Hg (10/30/23 2:25 PM) Blood pressure sites Arm, right (10/30/23 2:25 PM) Weight Obtained Via Standing scale (10/30/23 2:25 PM) Dry Weight Obtained Via Standing scale (10/30/23 2:25 PM) Social History Social History Type Response [...] [address] [facility] [place] [address]- Name: Erik Kim DO Position: S Physician - Primary Care Member Role: PCP Address: Address: [address] [place] [address]- Care Team Related Persons Name: LORENA HARRISON Address: home [address] [place] [address] Name: LAYNE TREADWELL Address: home [address] [place] [address]
--- OUTSIDE RECORDS SUMMARY | 2024-03-09 15:29 | XMS_ITS | Continuity of Care Document ---
Author Organization [facility] ter Address [address] [place] [address]- Care Team Providers Care Hyperbaric Tech Name Role Phone Erik Kim DO Primary Care Physician [phone] Encounter [facility] Date(s): 10/01/23 - 10/31/[address] [address] Attending Physician: Not on Staff, Attending MD Admitting Physician: Not on Staff, Admitting MD Referring Physician: Not on Staff, Referring [...] virus vaccine, inactivated 08/09/17 Avery rded SARS-CoV-2(COVID-19)mRNA-LNP vac([id number]) 08/02/23 Recorded Influenza Virus Vaccine (oldterm) 1 [...] Influenza Virus Vaccine (oldterm) 08/26/11 Recorde d [id number] 12y+ bivalent booster vax 08/06/22 Recorded pneumococcal 13-valent vaccine 6 07/25/22 Recorded pneumococcal 13-valent vaccine 7 12/14/18 Recorded pneumococcal 13-valent vaccine 12/14/18 Recorded pneumococcal 13-valent vaccine 8 06/06/16 Recorded SARS-CoV-2 mRNA (xhuhdiv-ixcv-czanf) vax 03/13/22 Recorded SARS-CoV-2 mRNA (pehltzm-pfmv-duyfl) vax 9 08/21/21 Recorded SARS-CoV-2 mRNA (azcwnpg-nhnx-kwfcq) vax 10 01/13/21 Recorded SARS-CoV-2 (COVID-19) mRNA BNT-162b2 vac 09/03/21 Recorded SARS-CoV-2 (COVID-19) Ad26 vaccine 01/13/21 Record ed zoster vaccine, inactivated 03/13/20 Recorded zoster vaccine, inactivated 12/09/19 Recorded Zoster Vaccine Live 11 12/09/19 Recorded Zoster Vaccine Live 03/13/12 Recorded tetanus/diphtheria/pertussis, acel(Tdap) 10/21/11 Recorded Pneumococcal Vaccine (oldterm) 11/08/06 Given pneumococcal 23-valent vaccine 12 11/08/06 Recorde d 1Result Comment: Unit: Unknown Route: Intramuscular Media Sales Representative: Sanofi Pasteur 2Result Comment: Route: Intramuscular Media Sales Representative: Sanofi Pasteur 3Result Comment: Unit: Unknown 4Result Comment: Unit: Unknown 5Result Comment: Unit: Unknown 6Result Comment: Unit: Unknown Route: Intramuscular Media Sales Representative: Pfizer 7Result Comment: Unit: Unknown Route: Intramuscular Media Sales Representative: Wyeth 8Result Comment: Unit: Unknown 9Result Comment: Route: Intramuscular Media Sales Representative: Sanofi Pasteur 10Result Comment: Unit: Unknown Route: Intramuscular Media Sales Representative: Suleiman 11Result Comment: Route: Intramuscular Media Sales Representative: GlaxoSmithKline 12Result Comment: Unit: Unknown [...] 11/06/23 15:19:00 EST, 10/30/23 15:19:00 EST, Capsule, [facility]/pharmacy #[id number], Partial fill upon patient request ifthe [...] Route to Pharmacy Electronically, [facility]/pharmacy #[id number], Partial fill upon patient reque... Start Date: [...] Start Date: 09/22/23 Status: Ordered nystatin topical 425072 u/gm powder 1 application, Topically, 3 times [...] Team Personnel Name: Armani Reid DO Position: [facility] Renal MD Member Role: Lifetime Consulting Physician Address: Address: [address] [place] [address] [address] [facility] [place] [address]- Name: Erik Kim DO Position: [facility] Physician - Primary Care Member Role: PCP Address: Address: [address] [place] [address] [place] [address]- Care Team Related Persons Name: LORENA HARRISON Address: home [address] [place] [address] Name: LAYNE TREADWELL Address: home [address] [place] [address]
--- OUTSIDE RECORDS SUMMARY | 2024-03-09 15:29 | XMS_ITS | Continuity of Care Document ---
Author Organization [facility] Eric Lynch Gene lt Address [address] [place] [address]- Care Team Providers Care Mobile Mechanic Name Role Phone Erik Kim DO Primary Care Physician [facility] Date(s): 10/14/23 - 11/13/23 [facility] [place] Adult [address] [place] [address]- Allergies, Adverse Reactions, Alerts Substance Reaction Severity [...] virus vaccine, inactivated 08/09/17 Avery rded SARS-CoV-2(COVID-19)mRNA-LNP vac([id number]) 08/02/23 Recorded Influenza Virus Vaccine (oldterm) 1 [...] Influenza Virus Vaccine (oldterm) 08/26/11 Recorde d [id number] 12y+ bivalent booster vax 08/06/22 Recorded pneumococcal 13-valent vaccine 6 07/25/22 Recorded pneumococcal 13-valent vaccine 7 12/14/18 Recorded pneumococcal 13-valent vaccine 12/14/18 Recorded pneumococcal 13-valent vaccine 8 06/06/16 Recorded SARS-CoV-2 mRNA (eckiwqi-agvs-lticq) vax 03/13/22 Recorded SARS-CoV-2 mRNA (vfopwyi-uupk-hogri) vax 9 08/21/21 Recorded SARS-CoV-2 mRNA (xqziitt-xwbs-ahenj) vax 10 01/13/21 Recorded SARS-CoV-2 (COVID-19) mRNA BNT-162b2 vac 09/03/21 Recorded SARS-CoV-2 (COVID-19) Ad26 vaccine 01/13/21 Record ed zoster vaccine, inactivated 03/13/20 Recorded zoster vaccine, inactivated 12/09/19 Recorded Zoster Vaccine Live 11 12/09/19 Recorded Zoster Vaccine Live 03/13/12 Recorded tetanus/diphtheria/pertussis, acel(Tdap) 10/21/11 Recorded Pneumococcal Vaccine (oldterm) 11/08/06 Given pneumococcal 23-valent vaccine 12 11/08/06 Recorde d 1Result Comment: Unit: Unknown Route: Intramuscular Coldfusion: Sanofi Pasteur 2Result Comment: Route: Intramuscular Coldfusion: Sanofi Pasteur 3Result Comment: Unit: Unknown 4Result Comment: Unit: Unknown 5Result Comment: Unit: Unknown 6Result Comment: Unit: Unknown Route: Intramuscular Coldfusion: Pfizer 7Result Comment: Unit: Unknown Route: Intramuscular Coldfusion: [place] 8Result Comment: Unit: Unknown 9Result Comment: Route: Intramuscular Coldfusion: Sanofi Pasteur 10Result Comment: Unit: Unknown Route: Intramuscular Coldfusion: Suleiman 11Result Comment: Route: Intramuscular Coldfusion: GlaxoSmithKline 12Result Comment: Unit: Unknown Medications acetaminophen 325 mg oral tablet TAKE 2 TABLETS (650 MG)ORALLY EVERY 6 HOURS NEEDED FOR PAIN, MILD (PAIN SCALE 1-3) Start Date: 09/22/23 Status: Ordered amLODIPine 2.5 mg oral tablet 1 tablet, By Mouth, Daily, # 90 tablet, 0 Refills, Maintenance, 11/12/23 12:11:00 EST, [facility] ST[facility]107, 170.18, cm, 10/30/23 14:25:00 EST, Height, 127.2, kg, 10/02/23 3:00:00 EST, Dry Weight Start Date: 11/12/23 Status: Ordered atorvastatin 40 mg oral tablet 1 tablet = 40 mg, By Mouth, Daily, # 90 tablet, 3 Refills, Maintenance, 10/27/23 11:06:00 EST, Tablet, [facility]/pharmacy #[id number], Partial fill upon patient request [...] Replace Required Details, Route to Pharmacy Electronically, [facility]/pharmacy #[id number], Partial fill upon patient reque... [...] 11/16/23 17:37:00 EST, 11/06/23 17:37:00 EST, Tablet, [facility]/pharmacy #[id number], Partial fill upon patient request [...] 10/27/23 11:05:00 EST, Route to Pharmacy Electronically, [facility]/pharmacy #[id number], Partial fill upon patientrequest if the prescription is for a schedule II op... Start Date: 10/27/23 Status: Ordered Milk of Magnesia = 1,200 mg, By Mouth, 3 times a day, 0 Refills, Maintenance, 09/22/23 15:30:00 EST, Partial fill upon patient request if the prescription is for a schedule II opioid drug. Start Date: 09/22/23 Status: Ordered nystatin topical [id number] u/gm powder 1 application, Topically, 3 times a day, to rash, # 60 Gm, 0 Refills, Maintenance, 10/27/23 11:02:00 EST, Powder, [facility]/pharmacy #[id number], Partial fill upon patient request [...] Name: Armani Reid DO Position: [facility] Renal MD Member Role: Lifetime Consulting Physician Address: Address: [address] [place] [address] [address] [facility] [place] [address]- Name: Erik Kim DO Position: [facility] Physician - Primary Care Member Role: PCP Address: Address: [address] [place] [address] [place] [address]- Care Team Related Persons Name: LORENA HARRISON Address: home [address] [place] [address] Name: LANYE TREADWELL Address: home [address] [place] [address]
--- OUTSIDE RECORDS SUMMARY | 2024-03-09 15:29 | XMS_ITS | Continuity of Care Document ---
Author Organization [facility] Nate Molina n's [facility] Address [address], [address] [place] [address]- Care Team Providers Care Methods Specialist Name Role Phone Erik Kim DO Primary Care Physician Encounter [facility] Date(s): 10/01/23 - 10/31/23 [facility] [address], [address] Floor [place], [place] [address] Attending Physician: Amna Darling Admitting Physician: [...] virus vaccine, inactivated 08/09/17 Avery rded SARS-CoV-2(COVID-19)mRNA-LNP vac([id number]) 08/02/23 Recorded Influenza Virus Vaccine (oldterm) 1 [...] Influenza Virus Vaccine (oldterm) 08/26/11 Recorde d [id number] 12y+ bivalent booster vax 08/06/22 Recorded pneumococcal 13-valent vaccine 6 07/25/22 Recorded pneumococcal 13-valent vaccine 7 12/14/18 Recorded pneumococcal 13-valent vaccine 12/14/18 Recorded pneumococcal 13-valent vaccine 8 06/06/16 Recorded SARS-CoV-2 mRNA (aqypxjz-afot-tdkqf) vax 03/13/22 Recorded SARS-CoV-2 mRNA (rxohghc-cyma-pwdwf) vax 9 08/21/21 Recorded SARS-CoV-2 mRNA (vydxfdl-dnbf-emint) vax 10 01/13/21 Recorded SARS-CoV-2 (COVID-19) mRNA BNT-162b2 vac 09/03/21 Recorded SARS-CoV-2 (COVID-19) Ad26 vaccine 01/13/21 Record ed zoster vaccine, inactivated 03/13/20 Recorded zoster vaccine, inactivated 12/09/19 Recorded Zoster Vaccine Live 11 12/09/19 Recorded Zoster Vaccine Live 03/13/12 Recorded tetanus/diphtheria/pertussis, acel(Tdap) 10/21/11 Recorded Pneumococcal Vaccine (oldterm) 11/08/06 Given pneumococcal 23-valent vaccine 12 11/08/06 Recorde d 1Result Comment: Unit: Unknown Route: Intramuscular Theatrical Scenic Designer: Sanofi Pasteur 2Result Comment: Route: Intramuscular Theatrical Scenic Designer: Sanofi Pasteur 3Result Comment: Unit: Unknown 4Result Comment: Unit: Unknown 5Result Comment: Unit: Unknown 6Result Comment: Unit: Unknown Route: Intramuscular Theatrical Scenic Designer: Pfizer 7Result Comment: Unit: Unknown Route: Intramuscular Theatrical Scenic Designer: Wyeth 8Result Comment: Unit: Unknown 9Result Comment: Route: Intramuscular Theatrical Scenic Designer: Sanofi Pasteur 10Result Comment: Unit: Unknown Route: Intramuscular Theatrical Scenic Designer: Suleiman 11Result Comment: Route: Intramuscular Theatrical Scenic Designer: GlaxoSmithKline 12Result Comment: Unit: Unknown Medications acetaminophen [...] Maintenance, 10/27/23 11:06:00 EST, Tablet, [facility]/pharmacy #[id number], Partial fill upon patient request if [...] 11/06/23 15:19:00 EST, 10/30/23 15:19:00 EST, Capsule, [facility]/pharmacy #[id number], Partial fill upon patient request ifthe [...] Details, Route to Pharmacy Electronically, [facility]/pharmacy #[id number], Partial fill upon patient reque... Start Date: [...] EST, Route to Pharmacy Electronically, [facility]/pharmacy #[id number], Partial fill upon patientrequest if the prescription is for a schedule II op... Start Date: 10/27/23 Status: Ordered Milk of Magnesia = 1,200 mg, By Mouth, 3 times a day, 0 Refills, Maintenance, 09/22/23 15:30:00 EST, Partial fill upon patient request if the prescription is for a schedule II opioid drug. Start Date: 09/22/23 Status: Ordered nystatin topical 422250 u/gm powder 1 application, Topically, 3 times a day, to rash, # 60 Gm, 0 Refills, Maintenance, 10/27/23 11:02:00 EST, Powder, [facility]/pharmacy #[id number], Partial fill upon patient request if [...] Team Personnel Name: Armani Reid DO Position: [facility] Renal MD Member Role: Lifetime Consulting Physician Address: Address: [address] [place] [address] [address] [facility] [place] [address]- Name: Erik Kim DO Position: [facility] Physician - Primary Care Member Role: PCP Address: Address: [address] [facility] [place] [address]- Care Team Related Persons Name: LORENA HARRISON Address: home [address] [place] [address] Name: LAYNE TREADWELL Address: home [address] [place] [address]
--- OUTSIDE RECORDS SUMMARY | 2024-03-09 15:29 | XMS_ITS | Continuity of Care Document ---
Author Organization [facility] Syed Gene Address [address] [place] [address]- Care Team Providers Care Electrical Development Engineer Name Role Phone Erik Kim DO Primary Care Physician Encounter [facility] Date(s): 01/21/24 - 02/22/24 [facility] Adult [address] [place] [address]- Attending Physician: Espinoza Coulter MD Allergies, Adverse Reactions, Alerts Substance Reaction [...] virus vaccine, inactivated 08/09/17 Avery rded SARS-CoV-2(COVID-19)mRNA-LNP vac([id number]) 08/02/23 Recorded Influenza Virus Vaccine (oldterm) 1 [...] Influenza Virus Vaccine (oldterm) 08/26/11 Recorde d [id number] 12y+ bivalent booster vax 08/06/22 Recorded pneumococcal 13-valent vaccine 6 07/25/22 Recorded pneumococcal 13-valent vaccine 7 12/14/18 Recorded pneumococcal 13-valent vaccine 12/14/18 Recorded pneumococcal 13-valent vaccine 8 06/06/16 Recorded SARS-CoV-2 mRNA (tmpmhjs-tjlc-sefod) vax 03/13/22 Recorded SARS-CoV-2 mRNA (ejuxalu-ossl-goqmo) vax 9 08/21/21 Recorded SARS-CoV-2 mRNA (tnvjdoc-cddr-bciuq) vax 10 01/13/21 Recorded SARS-CoV-2 (COVID-19) mRNA BNT-162b2 vac 09/03/21 Recorded SARS-CoV-2 (COVID-19) Ad26 vaccine 01/13/21 Record ed zoster vaccine, inactivated 03/13/20 Recorded zoster vaccine, inactivated 12/09/19 Recorded Zoster Vaccine Live 11 12/09/19 Recorded Zoster Vaccine Live 03/13/12 Recorded tetanus/diphtheria/pertussis, acel(Tdap) 10/21/11 Recorded Pneumococcal Vaccine (oldterm) 11/08/06 Given pneumococcal 23-valent vaccine 12 11/08/06 Recorde d 1Result Comment: Unit: Unknown Route: Intramuscular Construction Accountant: Sanofi Pasteur 2Result Comment: Route: Intramuscular Construction Accountant: Sanofi Pasteur 3Result Comment: Unit: Unknown 4Result Comment: Unit: Unknown 5Result Comment: Unit: Unknown 6Result Comment: Unit: Unknown Route: Intramuscular Construction Accountant: Pfizer 7Result Comment: Unit: Unknown Route: Intramuscular Construction Accountant: Wyeth 8Result Comment: Unit: Unknown 9Result Comment: Route: Intramuscular Construction Accountant: Sanofi Pasteur 10Result Comment: Unit: Unknown Route: Intramuscular Construction Accountant: Suleiman 11Result Comment: Route: Intramuscular Construction Accountant: GlaxoSmithKline 12Result Comment: Unit: Unknown Medications acetaminophen 325 mg oral tablet TAKE 2 TABLETS (650 MG)ORALLY EVERY 6 HOURS NEEDED FOR PAIN, MILD (PAIN SCALE 1-3) Start Date: 09/22/23 Status: Ordered atorvastatin 40 mg oral tablet 1 tablet = 40 mg, By Mouth, Daily, # 90 tablet, 3 Refills, Maintenance, 10/27/23 11:06:00 EST, Tablet, [facility]/pharmacy #[id number], Partial fill upon patient [...] Refills, Maintenance, 12/23/23 17:15:00 EST, [id number], 170.18, cm, 12/17/23 10:17:00 EST, Height, 127.2, kg, 10/02/23 3:00:00 EST, Dry Weight Start Date: 12/23/23 Status: Ordered estradiol 0.1 mg/g vaginal cream = 1 Gm, Vaginally, Daily at bedtime, # 30 Gm, 11 Refills, Maintenance, 11/17/23 9:45:00 EST, [facility]/pharmacy #[id number], Partial fill upon patient [...] Pharmacy Electronically, [facility]/pharmacy #[id number], Partial fill upon patient reque... Start Date: 10/27/23 Status: Ordered Gemtesa 75 mg oral tablet 1 tablet = 75 mg, By Mouth, Daily, # 30 tablet, 11 Refills, Maintenance, 11/17/23 9:45:00 EST, [facility]/pharmacy #[id number], Partial fill upon patient [...] 04/01/24 21:50:00 EDT, 02/01/24 21:50:00 EDT, Tablet, [facility]/pharmacy #[id number], Part... Start Date: 02/01/24 Stop Date: 04/01/24 Status: Ordered metFORMIN 500 mg oral tablet 1 tablet = 500 mg, By Mouth, 2 times a day, # 180 tablet, 2 Refills, Maintenance, 12/23/23 17:13:00EST, Tablet, [facility]/pharmacy #[id number], Partial fill upon patient request if the prescription is for a schedule II opioid drug., 170.18, cm, 12/17/23 10:17:00... Start Date: 12/23/23 Status: Ordered metoprolol 50 mg oral tablet 50 mg, 1, tablet, By Mouth, 2 times a day, # 180 tablet, Refills 3, Tot. Refills 3, Maintenance, 10/27/23 11:05:00 EST, Route to Pharmacy Electronically, [facility]/pharmacy #[id number], Partial fill upon patientrequest if the prescription is for a schedule II op... Start Date: 10/27/23 Status: Ordered nystatin topical 301436 u/gm powder See Instructions, APPLY TOPICALLY 3 TIMES A DAY TO RASH, # 60 Gm, 1 Refills, Maintenance, 02/02/24 7:47:00 EDT, [id number], 30, APPLY TOPICALLY 3 TIMES A DAY TO RASH, 170, cm, 01/19/24 14:19:00 EDT, Height, 136, kg, 01/17/24 9:30:00 EST, Dry Weight Start Date: 02/02/24 Status: Ordered omeprazole 40 mg oral enteric coated capsule 1 capsule = 40 mg, By Mouth, Daily, # 90 capsule, 3 Refills, Maintenance, 12/23/23 17:13:00 EST, ECCapsule, [facility]/pharmacy #[id number], Partial fill upon patient request if the [...] Team Personnel Name: Armani Reid DO Position: [facility] Renal MD Member Role: Lifetime Consulting Physician Address: Address: [address] [place] [address] [address] [facility] [place] [place] [address]- Name: Maynor Lyons RN Position: [facility] RN Member Role: Primary Care Nurse Name: Erik Kim DO Position: [facility] Physician - Primary Care Member Role: PCP Address: Address: [address] [place] [id number]- Name: Dianna Frost RN Position: [facility] RN Member Role: Primary Care Nurse Care Team Related Persons Name: LORENA HARRISON Address: home [address] [place] [address] Name: LAYNE TREADWELL Address: home [address] [place] [address]
--- OUTSIDE RECORDS SUMMARY | 2024-03-09 15:29 | XMS_ITS | Continuity of Care Document ---
Author Organization [facility] Eric Lynch Gene lt Address [address] [place] [address]- Care Team Providers Care Calcine Furnace Tender Name Role Phone Erik Kim DO Primary Care Physician Encounter [facility] Date(s): 11/06/23 - 12/06/23 [facility] Eric Velazquezley Adult [address] [place] [address]- Allergies, Adverse Reactions, Alerts Substance Reaction Severity [...] virus vaccine, inactivated 08/09/17 Avery rded SARS-CoV-2(COVID-19)mRNA-LNP vac([id number]) 08/02/23 Recorded Influenza Virus Vaccine (oldterm) 1 [...] Influenza Virus Vaccine (oldterm) 08/26/11 Recorde d [id number] 12y+ bivalent booster vax 08/06/22 Recorded pneumococcal 13-valent vaccine 6 07/25/22 Recorded pneumococcal 13-valent vaccine 7 12/14/18 Recorded pneumococcal 13-valent vaccine 12/14/18 Recorded pneumococcal 13-valent vaccine 8 06/06/16 Recorded SARS-CoV-2 mRNA (qekutyr-czec-htzxu) vax 03/13/22 Recorded SARS-CoV-2 mRNA (srezfgl-cnms-vwtkf) vax 9 08/21/21 Recorded SARS-CoV-2 mRNA (irhiygc-gzrg-ghioj) vax 10 01/13/21 Recorded SARS-CoV-2 (COVID-19) mRNA BNT-162b2 vac 09/03/21 Recorded SARS-CoV-2 (COVID-19) Ad26 vaccine 01/13/21 Record ed zoster vaccine, inactivated 03/13/20 Recorded zoster vaccine, inactivated 12/09/19 Recorded Zoster Vaccine Live 11 12/09/19 Recorded Zoster Vaccine Live 03/13/12 Recorded tetanus/diphtheria/pertussis, acel(Tdap) 10/21/11 Recorded Pneumococcal Vaccine (oldterm) 11/08/06 Given pneumococcal 23-valent vaccine 12 11/08/06 Recorde d 1Result Comment: Unit: Unknown Route: Intramuscular Electron Beam Machine Welder Setter: Sanofi Pasteur 2Result Comment: Route: Intramuscular Electron Beam Machine Welder Setter: Sanofi Pasteur 3Result Comment: Unit: Unknown 4Result Comment: Unit: Unknown 5Result Comment: Unit: Unknown 6Result Comment: Unit: Unknown Route: Intramuscular Electron Beam Machine Welder Setter: Pfizer 7Result Comment: Unit: Unknown Route: Intramuscular Electron Beam Machine Welder Setter: Wyeth 8Result Comment: Unit: Unknown 9Result Comment: Route: Intramuscular Electron Beam Machine Welder Setter: Sanofi Pasteur 10Result Comment: Unit: Unknown Route: Intramuscular Electron Beam Machine Welder Setter: Suleiman 11Result Comment: Route: Intramuscular Electron Beam Machine Welder Setter: GlaxoSmithKline 12Result Comment: Unit: Unknown Medications acetaminophen 325 mg oral tablet TAKE 2 TABLETS (650 MG)ORALLY EVERY 6 HOURS NEEDED FOR PAIN, MILD (PAIN SCALE 1-3) Start Date: 09/22/23 Status: Ordered amLODIPine 2.5 mg oral tablet 1 tablet, By Mouth, Daily, # 90 tablet, 0 Refills, Maintenance, 11/12/23 12:11:00 EST, [id number], 170.18, cm, 10/30/23 14:25:00 EST, Height, 127.2, kg, 10/02/23 3:00:00 EST, Dry Weight Start Date: 11/12/23 Status: Ordered atorvastatin 40 mg oral tablet 1 tablet = 40 mg, By Mouth, Daily, # 90 tablet, 3 Refills, Maintenance, 10/27/23 11:06:00 EST, Tablet, [facility]/pharmacy #[id number], Partial fill upon patient [...] Gm, 11 Refills, Maintenance, 11/17/23 9:45:00 EST, [facility]/pharmacy #[id number], Partial fill upon patient [...] Replace Required Details, Route to Pharmacy Electronically, [facility]/pharmacy #[id number], Partial fill upon patient reque... Start Date: 10/27/23 Status: Ordered Gemtesa 75 mg oral tablet 1 tablet = 75 mg, By Mouth, Daily, # 30 tablet, 11 Refills, Maintenance, 11/17/23 9:45:00 EST, [facility]/pharmacy #[id number], Partial fill upon patient [...] 10/27/23 11:05:00 EST, Route to Pharmacy Electronically, [facility]/pharmacy #[id number], Partial fill upon patientrequest if the prescription is for a schedule II op... Start Date: 10/27/23 Status: Ordered Milk of Magnesia = 1,200 mg, By Mouth, 3 times a day, 0 Refills, Maintenance, 09/22/23 15:30:00 EST, Partial fill upon patient request if the prescription is for a schedule II opioid drug. Start Date: 09/22/23 Status: Ordered nystatin topical 474678 u/gm powder 1 application, Topically, 3 times [...] Team Personnel Name: Armani Reid DO Position: [facility] Renal MD Member Role: Lifetime Consulting Physician Address: Address: [address] [place] [address] [address] [facility] [place] [address]- Name: Erik Kim DO Position: [facility] Physician - Primary Care Member Role: PCP Address: Address: [address] [place] [address] [place] Care Team Related Persons Name: LORENA HARRISON Address: home [address] [place] [address] Name: LAYNE TREADWELL Address: home [address] [place] [address]
--- OUTSIDE RECORDS SUMMARY | 2024-03-09 15:30 | XMS_ITS | Continuity of Care Document ---
Author Organization [facility] Eric Lynch Gene lt Address [address] [place] [address]- Care Team Providers Care Distribution Sales Representative Name Role Phone Erik Kim DO Primary Care Physician [phone] Encounter [facility] Date(s): 09/29/23 - 10/06/23 [facility] Adult [address] [place] [address]- Encounter Diagnosis Recurrent falls(Discharge Diagnosis) - 09/28/23 AF (paroxysmal atrial fibrillation)(Discharge Diagnosis) - 09/28/23 Borderline personality disorder(Discharge Diagnosis) - 09/28/23 Anemia(Discharge Diagnosis) - 09/28/23 Essential hypertension(Discharge Diagnosis) - 09/28/23 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) - 09/28/23 Type 2 diabetes mellitus with peripheral neuropathy(Discharge Diagnosis) - 09/28/23 Osteoarthritis of both knees(Discharge Diagnosis) - 09/28/23 Muscular deconditioning(Discharge Diagnosis) - 09/29/23 Attending Physician: Erik Kim DO Allergies, Adverse [...] virus vaccine, inactivated 08/09/17 Avery rded SARS-CoV-2(COVID-19)mRNA-LNP vac([id number]) 08/02/23 Recorded Influenza Virus Vaccine (oldterm) 1 [...] Influenza Virus Vaccine (oldterm) 08/26/11 Recorde d [id number] 12y+ bivalent booster vax 08/06/22 Recorded pneumococcal 13-valent vaccine 6 07/25/22 Recorded pneumococcal 13-valent vaccine 7 12/14/18 Recorded pneumococcal 13-valent vaccine 12/14/18 Recorded pneumococcal 13-valent vaccine 8 06/06/16 Recorded pneumococcal 20-valent conjugate vaccine 07/25/22 Recorded SARS-CoV-2 mRNA (wcpoulc-fgrb-viupd) vax 03/13/22 Recorded SARS-CoV-2 mRNA (jmwicik-qfyy-eiqnc) vax 9 08/21/21 Recorded SARS-CoV-2 mRNA (dmrrsbj-gffr-srmdz) vax 10 01/13/21 Recorded SARS-CoV-2 (COVID-19) mRNA BNT-162b2 vac 09/03/21 Recorded SARS-CoV-2 (COVID-19) Ad26 vaccine 01/13/21 Record ed zoster vaccine, inactivated 03/13/20 Recorded zoster vaccine, inactivated 12/09/19 Recorded Zoster Vaccine Live 11 12/09/19 Recorded Zoster Vaccine Live 03/13/12 Recorded tetanus/diphtheria/pertussis, acel(Tdap) 10/21/11 Recorded Pneumococcal Vaccine (oldterm) 11/08/06 Given pneumococcal 23-valent vaccine 12 11/08/06 Recorde d 1Result Comment: Unit: Unknown Route: Intramuscular Direct Selling Counselor: Sanofi Pasteur 2Result Comment: Route: Intramuscular Direct Selling Counselor: Sanofi Pasteur 3Result Comment: Unit: Unknown 4Result Comment: Unit: Unknown 5Result Comment: Unit: Unknown 6Result Comment: Unit: Unknown Route: Intramuscular Direct Selling Counselor: LSN Mobile 7Result Comment: Unit: Unknown Route: Intramuscular Direct Selling Counselor: Wycathi 8Result Comment: Unit: Unknown 9Result Comment: Route: Intramuscular Direct Selling Counselor: Sanofi Pasteur 10Result Comment: Unit: Unknown Route: Intramuscular Direct Selling Counselor: Suleiman 11Result Comment: Route: Intramuscular Direct Selling Counselor: GlaxoSmithKline 12Result Comment: Unit: Unknown Medications acetaminophen [...] Electronically, [facility]/pharmacy #[id number], Partial fill upon patient reque... Start Date: [...] Effective Dates Health Status Clinical Service Informant Recurrent falls Discharge Diagnosis 09/28/23 AF (paroxysmal atrial fibrillation) Discharge Diagnosis 09/28/23 Borderline personality disorder Discharge Diagnosis 09/28/23 Anemia Discharge Diagnosis 09/28/23 Essential hypertension Discharge Diagnosis 09/28/23 Major depression in partial remission Discharge Diagnosis 09/28/23 Type 2 diabetes mellitus with peripheral neuropathy Discharge Diagnosis 09/28/23 Osteoarthritis of both knees Discharge Diagnosis 09/28/23 Muscular deconditioning Discharge Diagnosis 09/29/23 Vital Signs Most recent to oldest [Reference Range]: 1 Height 171 cm (09/29/23 3:03 PM) Weight 132 kg (09/29/23 3:03 PM) Oxygen Saturation [94-100 %] 98 % (09/29/23 3:03 PM) Pulse Rate [55-90 bpm] 93 bpm *H* (09/29/23 3:03 PM) Body Mass Index [18.5-24.99 kg/m2] 45.14 kg/m2 *>HHI* (09/29/23 3:03 PM) Blood Pressure [90-138/55-84 mm Hg] 101/ 64mm Hg (09/29/23 3:03 PM) Blood pressure sites Arm, left (09/29/23 3:03 PM) Social History Social History Type Response Smoking Status Former smoker, quit more than 30 days ago; Other: quit 1973 6 yrs toal 11/13 6; Number of years: 6; Total pack years: 2; entered on: 07/03/23 Sex Patient Care team information Care Team Personnel Name: Armani Reid DO Position: [facility] Renal MD Member Role: Lifetime Consulting Physician Address: Address: [address] [place] [address] [address] [facility] [place] [address]- Name: Erik Kim DO Position: [facility] Physician - Primary Care Member Role: PCP Address: Address: [address] [place] [address]- Care Team Related Persons Name: LORENA HARRISON Address: home [address] [place] [address] Name: LAYNE TREADWELL Address: [address] [place] [address]
--- OUTSIDE RECORDS SUMMARY | 2024-03-09 15:30 | XMS_ITS | Continuity of Care Document ---
Author Organization [facility] Address [address] [place] [address]- Care Team Providers Care Graphic Design Intern Name Role Phone Erik Kim DO Primary Care Physician Encounter [facility] Date(s): 10/06/23 - 11/05/[address] [address]- Allergies, Adverse Reactions, Alerts Substance Reaction Severity [...] virus vaccine, inactivated 08/09/17 Avery rded SARS-CoV-2(COVID-19)mRNA-LNP vac([id number]) 08/02/23 Recorded Influenza Virus Vaccine (oldterm) 1 [...] Influenza Virus Vaccine (oldterm) 08/26/11 Recorde d [id number] 12y+ bivalent booster vax 08/06/22 Recorded pneumococcal 13-valent vaccine 6 07/25/22 Recorded pneumococcal 13-valent vaccine 7 12/14/18 Recorded pneumococcal 13-valent vaccine 12/14/18 Recorded pneumococcal 13-valent vaccine 8 06/06/16 Recorded SARS-CoV-2 mRNA (almyziv-ykbf-imrcf) vax 03/13/22 Recorded SARS-CoV-2 mRNA (voedjlh-vsoa-jcjce) vax 9 08/21/21 Recorded SARS-CoV-2 mRNA (fdhmgev-tfiz-vvhmi) vax 10 01/13/21 Recorded SARS-CoV-2 (COVID-19) mRNA BNT-162b2 vac 09/03/21 Recorded SARS-CoV-2 (COVID-19) Ad26 vaccine 01/13/21 Record ed zoster vaccine, inactivated 03/13/20 Recorded zoster vaccine, inactivated 12/09/19 Recorded Zoster Vaccine Live 11 12/09/19 Recorded Zoster Vaccine Live 03/13/12 Recorded tetanus/diphtheria/pertussis, acel(Tdap) 10/21/11 Recorded Pneumococcal Vaccine (oldterm) 11/08/06 Given pneumococcal 23-valent vaccine 12 11/08/06 Recorde d 1Result Comment: Unit: Unknown Route: Intramuscular Supervisor Smoke Control: Sanofi Pasteur 2Result Comment: Route: Intramuscular Supervisor Smoke Control: Sanofi Pasteur 3Result Comment: Unit: Unknown 4Result Comment: Unit: Unknown 5Result Comment: Unit: Unknown 6Result Comment: Unit: Unknown Route: Intramuscular Supervisor Smoke Control: Pfizer 7Result Comment: Unit: Unknown Route: Intramuscular Supervisor Smoke Control: WySobrr 8Result Comment: Unit: Unknown 9Result Comment: Route: Intramuscular Supervisor Smoke Control: Sanofi Pasteur 10Result Comment: Unit: Unknown Route: Intramuscular Supervisor Smoke Control: [place] 11Result Comment: Route: Intramuscular Supervisor Smoke Control: GlaxoSmithKline 12Result Comment: Unit: Unknown Medications acetaminophen [...] Maintenance, 10/27/23 11:06:00 EST, Tablet, [facility]/pharmacy #[id number], Partial fill upon patient request if [...] EST, 10/30/23 15:19:00 EST, Capsule, [facility]/pharmacy #[id number], Partial fill upon patient request ifthe [...] Details, Route to Pharmacy Electronically, [facility]/pharmacy #[id number], Partial fill upon patient reque... Start Date: [...] EST, Route to Pharmacy Electronically, [facility]/pharmacy #[id number], Partial fill upon patientrequest if the prescription is for a schedule II op... Start Date: 10/27/23 Status: Ordered Milk of Magnesia = 1,200 mg, By Mouth, 3 times a day, 0 Refills, Maintenance, 09/22/23 15:30:00 EST, Partial fill upon patient request if the prescription is for a schedule II opioid drug. Start Date: 09/22/23 Status: Ordered nystatin topical 534673 u/gm powder 1 application, Topically, 3 times a day, to rash, # 60 Gm, 0 Refills, Maintenance, 10/27/23 11:02:00 EST, Powder, [facility]/pharmacy #[id number], Partial fill upon patient request if [...] Team Personnel Name: Armani Reid DO Position: [facility] Renal MD Member Role: Lifetime Consulting Physician Address: Address: [address] [place] [address] [address] [facility] [place] [address]- Name: Erik Kim DO Position: [facility] Physician - Primary Care Member Role: PCP Address: Address: [address] [place] [address]- Care Team Related Persons Name: LORENA HARRISON Address: [address] [place] [address] Name: LAYNE TREADWELL Address: [address] [place] [address]
--- OUTSIDE RECORDS SUMMARY | 2024-03-09 15:30 | XMS_ITS | Continuity of Care Document ---
Author Organization [facility] Syed Gene Address [address] [place] [address]- Care Team Providers Care Elevator Technician Name Role Phone Erik Kim DO Primary Care Physician [facility]counter [facility] Date(s): 01/08/24 - 02/07/24 [facility] Adult [address] [place] [address]- Allergies, Adverse Reactions, Alerts Substance Reaction Severity [...] virus vaccine, inactivated 08/09/17 Avery rded SARS-CoV-2(COVID-19)mRNA-LNP vac([id number]) 08/02/23 Recorded Influenza Virus Vaccine (oldterm) 1 [...] Influenza Virus Vaccine (oldterm) 08/26/11 Recorde d [id number] 12y+ bivalent booster vax 08/06/22 Recorded pneumococcal 13-valent vaccine 6 07/25/22 Recorded pneumococcal 13-valent vaccine 7 12/14/18 Recorded pneumococcal 13-valent vaccine 12/14/18 Recorded pneumococcal 13-valent vaccine 8 06/06/16 Recorded SARS-CoV-2 mRNA (qeqgtex-auir-tmkjt) vax 03/13/22 Recorded SARS-CoV-2 mRNA (qhjiwuv-nlmu-pzpny) vax 9 08/21/21 Recorded SARS-CoV-2 mRNA (tskwuhc-sauc-hvtfo) vax 10 01/13/21 Recorded SARS-CoV-2 (COVID-19) mRNA BNT-162b2 vac 09/03/21 Recorded SARS-CoV-2 (COVID-19) Ad26 vaccine 01/13/21 Record ed zoster vaccine, inactivated 03/13/20 Recorded zoster vaccine, inactivated 12/09/19 Recorded Zoster Vaccine Live 11 12/09/19 Recorded Zoster Vaccine Live 03/13/12 Recorded tetanus/diphtheria/pertussis, acel(Tdap) 10/21/11 Recorded Pneumococcal Vaccine (oldterm) 11/08/06 Given pneumococcal 23-valent vaccine 12 11/08/06 Recorde d 1Result Comment: Unit: Unknown Route: Intramuscular Upper Cutter Out: Sanofi Pasteur 2Result Comment: Route: Intramuscular Upper Cutter Out: Sanofi Pasteur 3Result Comment: Unit: Unknown 4Result Comment: Unit: Unknown 5Result Comment: Unit: Unknown 6Result Comment: Unit: Unknown Route: Intramuscular Upper Cutter Out: Pfizer 7Result Comment: Unit: Unknown Route: Intramuscular Upper Cutter Out: Wyeth 8Result Comment: Unit: Unknown 9Result Comment: Route: Intramuscular Upper Cutter Out: Sanofi Pasteur 10Result Comment: Unit: Unknown Route: Intramuscular Upper Cutter Out: Suleiman 11Result Comment: Route: Intramuscular Upper Cutter Out: GlaxoSmithKline 12Result Comment: Unit: Unknown Medications acetaminophen 325 mg oral tablet TAKE 2 TABLETS (650 MG)ORALLY EVERY 6 HOURS NEEDED FOR PAIN, MILD (PAIN SCALE 1-3) Start Date: 09/22/23 Status: Ordered atorvastatin 40 mg oral tablet 1 tablet = 40 mg, By Mouth, Daily, # 90 tablet, 3 Refills, Maintenance, 10/27/23 11:06:00 EST, Tablet, [facility]/pharmacy #[id number], Partial fill upon patient request [...] Refills, Maintenance, 12/23/23 17:15:00 EST, [id number], 170.18, cm, 12/17/23 10:17:00 EST, Height, 127.2, kg, 10/02/23 3:00:00 EST, Dry Weight Start Date: 12/23/23 Status: Ordered estradiol 0.1 mg/g vaginal cream = 1 Gm, Vaginally, Daily at bedtime, # 30 Gm, 11 Refills, Maintenance, 11/17/23 9:45:00 EST, [facility]/pharmacy #[id number], Partial fill upon patient request [...] Required Details, Route to Pharmacy Electronically, [facility]/pharmacy #[id number], Partial fill upon patient reque... Start Date: 10/27/23 Status: Ordered Gemtesa 75 mg oral tablet 1 tablet = 75 mg, By Mouth, Daily, # 30 tablet, 11 Refills, Maintenance, 11/17/23 9:45:00 EST, [facility]/pharmacy #[id number], Partial fill upon patient request [...] 21:50:00 EDT, 02/01/24 21:50:00 EDT, Tablet, [facility]/pharmacy #[id number], Part... Start Date: 02/01/24 Stop Date: 04/01/24 Status: Ordered metFORMIN 500 mg oral tablet 1 tablet = 500 mg, By Mouth, 2 times a day, # 180 tablet, 2 Refills, Maintenance, 12/23/23 17:13:00EST, Tablet, [facility]/pharmacy #[id number], Partial fill upon patient request if the prescription is for a schedule II opioid drug., 170.18, cm, 12/17/23 10:17:00... Start Date: 12/23/23 Status: Ordered metoprolol 50 mg oral tablet 50 mg, 1, tablet, By Mouth, 2 times a day, # 180 tablet, Refills 3, Tot. Refills 3, Maintenance, 10/27/23 11:05:00 EST, Route to Pharmacy Electronically, [facility]/pharmacy #[id number], Partial fill upon patientrequest if the prescription is for a schedule II op... Start Date: 10/27/23 Status: Ordered nystatin topical [id number] u/gm powder See Instructions, APPLY TOPICALLY 3 TIMES A DAY TO RASH, # 60 Gm, 1 Refills, Maintenance, 02/02/24 7:47:00 EDT, [id number], 30, APPLY TOPICALLY 3 TIMES A DAY TO RASH, 170, cm, 01/19/24 14:19:00 EDT, Height, 136, kg, 01/17/24 9:30:00 EST, Dry Weight Start Date: 02/02/24 Status: Ordered omeprazole 40 mg oral enteric coated capsule 1 capsule = 40 mg, By Mouth, Daily, # 90 capsule, 3 Refills, Maintenance, 12/23/23 17:13:00 EST, ECCapsule, [facility]/pharmacy #[id number], Partial fill upon patient request if the [...] Role: Lifetime Consulting Physician Address: Address: [address] [place] [address] [address] [facility] [place] [address]- Name: Maynor Lyons RN Position: [facility] RN Member Role: Primary Care Nurse Name: Erik Kim DO Position: [facility] Physician - Primary Care Member Role: PCP Address: Address: [address] [place] [id number]- Name: Dianna Frost RN Position: [facility] RN Member Role: Primary Care Nurse Care Team Related Persons Name: LORENA HARRISON Address: home [address] [place] [address] Name: LAYNE TREADWELL Address: home [address] [place] [address]
--- OUTSIDE RECORDS SUMMARY | 2024-03-09 15:30 | XMS_ITS | Continuity of Care Document ---
Author Organization [facility] Syed Gene Address [address] [place] [address]- Care Team Providers Care Half Section Ironer Name Role Phone Erik Kim DO Primary Care Physician [phone] Encounter [facility] Date(s): 01/01/24 - 01/31/24 [facility] Adult [address] [place] [address]- Allergies, Adverse Reactions, Alerts Substance Reaction Severity [...] virus vaccine, inactivated 08/09/17 Avery rded SARS-CoV-2(COVID-19)mRNA-LNP vac([id number]) 08/02/23 Recorded Influenza Virus Vaccine (oldterm) 1 [...] Influenza Virus Vaccine (oldterm) 08/26/11 Recorde d [id number] 12y+ bivalent booster vax 08/06/22 Recorded pneumococcal 13-valent vaccine 6 07/25/22 Recorded pneumococcal 13-valent vaccine 7 12/14/18 Recorded pneumococcal 13-valent vaccine 12/14/18 Recorded pneumococcal 13-valent vaccine 8 06/06/16 Recorded SARS-CoV-2 mRNA (bgtlsuz-qaak-comyy) vax 03/13/22 Recorded SARS-CoV-2 mRNA (zckjakd-meme-ggpnn) vax 9 08/21/21 Recorded SARS-CoV-2 mRNA (xsysdlx-ovog-seotm) vax 10 01/13/21 Recorded SARS-CoV-2 (COVID-19) mRNA BNT-162b2 vac 09/03/21 Recorded SARS-CoV-2 (COVID-19) Ad26 vaccine 01/13/21 Record ed zoster vaccine, inactivated 03/13/20 Recorded zoster vaccine, inactivated 12/09/19 Recorded Zoster Vaccine Live 11 12/09/19 Recorded Zoster Vaccine Live 03/13/12 Recorded tetanus/diphtheria/pertussis, acel(Tdap) 10/21/11 Recorded Pneumococcal Vaccine (oldterm) 11/08/06 Given pneumococcal 23-valent vaccine 12 11/08/06 Recorde d 1Result Comment: Unit: Unknown Route: Intramuscular Criminal Investigator Customs: Sanofi Pasteur 2Result Comment: Route: Intramuscular Criminal Investigator Customs: Sanofi Pasteur 3Result Comment: Unit: Unknown 4Result Comment: Unit: Unknown 5Result Comment: Unit: Unknown 6Result Comment: Unit: Unknown Route: Intramuscular Criminal Investigator Customs: Pfizer 7Result Comment: Unit: Unknown Route: Intramuscular Criminal Investigator Customs: Wyeth 8Result Comment: Unit: Unknown 9Result Comment: Route: Intramuscular Criminal Investigator Customs: Sanofi Pasteur 10Result Comment: Unit: Unknown Route: Intramuscular Criminal Investigator Customs: Suleiman 11Result Comment: Route: Intramuscular Criminal Investigator Customs: GlaxoSmithKline 12Result Comment: Unit: Unknown Medications acetaminophen [...] Refills, Maintenance, 12/23/23 17:15:00 EST, [id number], 170.18, cm, 12/17/23 10:17:00 EST, Height, 127.2, [...] tablet, 2 Refills, Maintenance, 12/23/23 17:13:00EST, Tablet, [facility]/pharmacy #[id number], Partial fill upon patient request if the [...] Start Date: 10/27/23 Status: Ordered nystatin topical 246129 u/gm powder See Instructions, APPLY TOPICALLY 3 TIMES A DAY TO RASH, # 60 Gm, 0 Refills, Maintenance, 12/23/23 17:15:00 EST, [facility], 30, APPLY TOPICALLY 3 TIMES A DAY TO RASH, 170.18, cm, 12/17/23 10:17:00 EST, Height, 127.2, kg, 10/02/23 3:00:00 EST, Dr... Start Date: 12/23/23 Status: Ordered nystatin topical [id number] u/gm powder 1 application, Topically, 3 times a day, to rash, # 60 Gm, 0 Refills, Maintenance, 10/27/23 11:02:00 EST, Powder, [facility]/pharmacy #[id number], Partial fill upon patient request if the prescription is for a schedule II opioid drug., 1 application Topically 3 ti... Start Date: 10/27/23 Status: Ordered omeprazole 40 mg oral enteric coated capsule 1 capsule = 40 mg, By Mouth, Daily, # 90 capsule, 3 Refills, Maintenance, 12/23/23 17:13:00 EST, ECCapsule, [facility]/pharmacy #[id number], Partial fill upon patient request if [...] Role: Lifetime Consulting Physician Address: Address: [address] [place] [address] [address] [facility] [place] [address]- Name: Maynor Lyons RN Position: [facility] RN Member Role: Primary Care Nurse Name: Erik Kim DO Position: [facility] Physician - Primary Care Member Role: PCP Address: Address: [address] [place] [id number]- Name: Dianna Frost RN Position: [facility] RN Member Role: Primary Care Nurse Care Team Related Persons Name: LORENA HARRISON Address: home [address] [place] [address] Name: LAYNE TREADWELL Address: home [address] [place] [address]
--- OUTSIDE RECORDS SUMMARY | 2024-03-09 15:30 | XMS_ITS | Continuity of Care Document ---
Author Organization [facility] Eric Lynch Gene Address [address] [place] [address]- Care Team Providers Care Gas Leak Inspector Name Role Phone Erik Kim DO Primary Care Physician Encounter [facility] Date(s): 09/22/23 - 09/29/23 [facility] Adult [address] [place] [address]- Encounter Diagnosis Suicide attempt(Discharge Diagnosis) - 09/16/23 Toxic metabolic encephalopathy(Discharge Diagnosis) - 09/16/23 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) - 09/16/23 Type 2 diabetes mellitus with peripheral neuropathy(Discharge Diagnosis) - 09/16/23 AF (paroxysmal atrial fibrillation)(Discharge Diagnosis) - 09/16/23 Attending Physician: Erik Kim DO Allergies, Adverse [...] virus vaccine, inactivated 08/09/17 Avery rded SARS-CoV-2(COVID-19)mRNA-LNP vac([id number]) 08/02/23 Recorded Influenza Virus Vaccine (oldterm) 1 [...] Influenza Virus Vaccine (oldterm) 08/26/11 Recorde d [id number] 12y+ bivalent booster vax 08/06/22 Recorded pneumococcal 13-valent vaccine 6 07/25/22 Recorded pneumococcal 13-valent vaccine 7 12/14/18 Recorded pneumococcal 13-valent vaccine 12/14/18 Recorded pneumococcal 13-valent vaccine 8 06/06/16 Recorded pneumococcal 20-valent conjugate vaccine 07/25/22 Recorded SARS-CoV-2 mRNA (odwymqn-fblx-lqofg) vax 03/13/22 Recorded SARS-CoV-2 mRNA (xgnspzu-wggp-shwvp) vax 9 08/21/21 Recorded SARS-CoV-2 mRNA (ainaxdj-poca-xvbjw) vax 10 01/13/21 Recorded SARS-CoV-2 (COVID-19) mRNA BNT-162b2 vac 09/03/21 Recorded SARS-CoV-2 (COVID-19) Ad26 vaccine 01/13/21 Record ed zoster vaccine, inactivated 03/13/20 Recorded zoster vaccine, inactivated 12/09/19 Recorded Zoster Vaccine Live 11 12/09/19 Recorded Zoster Vaccine Live 03/13/12 Recorded tetanus/diphtheria/pertussis, acel(Tdap) 10/21/11 Recorded Pneumococcal Vaccine (oldterm) 11/08/06 Given pneumococcal 23-valent vaccine 12 11/08/06 Recorde d 1Result Comment: Unit: Unknown Route: Intramuscular Hotel Recreational Facilities Manager: Sanofi Pasteur 2Result Comment: Route: Intramuscular Hotel Recreational Facilities Manager: Sanofi Pasteur 3Result Comment: Unit: Unknown 4Result Comment: Unit: Unknown 5Result Comment: Unit: Unknown 6Result Comment: Unit: Unknown Route: Intramuscular Hotel Recreational Facilities Manager: Pfizer 7Result Comment: Unit: Unknown Route: Intramuscular Hotel Recreational Facilities Manager: Wyeth 8Result Comment: Unit: Unknown 9Result Comment: Route: Intramuscular Hotel Recreational Facilities Manager: Sanofi Pasteur 10Result Comment: Unit: Unknown Route: Intramuscular Hotel Recreational Facilities Manager: Suleiman 11Result Comment: Route: Intramuscular Hotel Recreational Facilities Manager: GlaxoSmithKline 12Result Comment: Unit: Unknown Medications acetaminophen [...] Pharmacy Electronically, [facility]/pharmacy #[id number], Partial fill upon patient reque... Start Date: 09/22/23 Status: Ordered gabapentin 300 mg oral capsule See Instructions, 1 capsule in the morning 2 at bedtime, # 270 capsule, Refills 3, Tot. Refills 3, Maintenance, 09/08/23 17:03:00 EDT, Instructions Replace Required Details, Route to Pharmacy Electronically, [facility]/pharmacy #[id number], Partial fill upon patie... Start Date: 09/08/23 [...] Date: 11/10/06 Stop Date: 11/13/06 Status: Ordered Knee Support See Instructions, # [...] tablet, 3 Refills, Maintenance, 07/21/23 12:40:00 EDT, [facility]/pharmacy #[id number], Partial fill upon patient request [...] Effective Dates Health Status Clinical Service Informant Suicide attempt Discharge Diagnosis 09/16/23 Toxic metabolic encephalopathy Discharge Diagnosis 09/16/23 Major depression in partial remission Discharge Diagnosis 09/16/23 Type 2 diabetes mellitus with peripheral neuropathy Discharge Diagnosis 09/16/23 AF (paroxysmal atrial fibrillation) Discharge Diagnosis 09/16/23 Vital Signs Most recent to oldest [Reference Range]: 1 Height 171 cm (09/22/23 3:13 PM) Weight 131.2 kg (09/22/23 3:13 PM) Oxygen Saturation [94-100 %] 99 % (09/22/23 3:13 PM) Pulse Rate [55-90 bpm] 93 bpm *H* (09/22/23 3:13 PM) Body Mass Index [18.5-24.99 kg/m2] 44.87 kg/m2 *>HHI* (09/22/23 3:13 PM) Blood Pressure [90-138/55-84 mm Hg] 142/ 88mm Hg *H* (09/22/23 3:13 PM) Blood pressure sites Arm, left (09/22/23 3:13 PM) Social History Social History Type Response Smoking Status Former smoker, quit more than 30 days ago; Other: quit 1973 6 yrs toal 11/13 6; Number of years: 6; Total pack years: 2; entered on: 07/03/23 Sex Patient Care team information Care Team Personnel Name: Armani Reid DO Position: [facility] Renal MD Member Role: Lifetime Consulting Physician Address: Address: [address] [facility] [address] [facility] [place] [place] [address]- Name: Erik Kim DO Position: [facility] Physician - Primary Care Member Role: PCP Address: Address: [address] [place] [address]- Care Team Related Persons Name: LORENA HARRISON Address: home [address] [place] [address] Name: LOEWUS, LAYNE Address: home [address] [place] [address]
--- OUTSIDE RECORDS SUMMARY | 2024-03-09 15:32 | XMS_ITS | Continuity of Care Document ---
Author Organization [facility] Eric Lynch Gene lt Address [address] [place] [address]- Care Team Providers Care Research Assistant Professor Name Role Phone Erik Kim DO Primary Care Physician Encounter [facility] Date(s): 11/04/23 - 12/06/23 [facility] Eric Velazquezley Adult [address] [place] [address]- Encounter Diagnosis Wound of foot(Discharge Diagnosis) - 11/05/23 Type 2 diabetes mellitus with peripheral neuropathy(Discharge Diagnosis) - 11/05/23 Borderline personality disorder(Discharge Diagnosis) - 11/05/23 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) - 11/05/23 Peripheral arterial disease(Discharge Diagnosis) - 11/05/23 Diabetes type 2, controlled(Discharge Diagnosis) - 11/05/23 Attending Physician: Erik Kim DO Referring Physician: Luanne Tran NP Allergies, Adverse Reactions, [...] virus vaccine, inactivated 08/09/17 Avery rded SARS-CoV-2(COVID-19)mRNA-LNP vac([id number]) 08/02/23 Recorded Influenza Virus Vaccine (oldterm) 1 [...] Influenza Virus Vaccine (oldterm) 08/26/11 Recorde d [id number] 12y+ bivalent booster vax 08/06/22 Recorded pneumococcal 13-valent vaccine 6 07/25/22 Recorded pneumococcal 13-valent vaccine 7 12/14/18 Recorded pneumococcal 13-valent vaccine 12/14/18 Recorded pneumococcal 13-valent vaccine 8 06/06/16 Recorded SARS-CoV-2 mRNA (duxejec-zulm-ogbvb) vax 03/13/22 Recorded SARS-CoV-2 mRNA (ppxjghn-einy-wrzro) vax 9 08/21/21 Recorded SARS-CoV-2 mRNA (vgtjdys-ivxm-yducc) vax 10 01/13/21 Recorded SARS-CoV-2 (COVID-19) mRNA BNT-162b2 vac 09/03/21 Recorded SARS-CoV-2 (COVID-19) Ad26 vaccine 01/13/21 Record ed zoster vaccine, inactivated 03/13/20 Recorded zoster vaccine, inactivated 12/09/19 Recorded Zoster Vaccine Live 11 12/09/19 Recorded Zoster Vaccine Live 03/13/12 Recorded tetanus/diphtheria/pertussis, acel(Tdap) 10/21/11 Recorded Pneumococcal Vaccine (oldterm) 11/08/06 Given pneumococcal 23-valent vaccine 12 11/08/06 Recorde d 1Result Comment: Unit: Unknown Route: Intramuscular Supply Officer: Sanofi Pasteur 2Result Comment: Route: Intramuscular Supply Officer: Sanofi Pasteur 3Result Comment: Unit: Unknown 4Result Comment: Unit: Unknown 5Result Comment: Unit: Unknown 6Result Comment: Unit: Unknown Route: Intramuscular Supply Officer: Youtopia 7Result Comment: Unit: Unknown Route: Intramuscular Supply Officer: Wycathi 8Result Comment: Unit: Unknown 9Result Comment: Route: Intramuscular Supply Officer: Sanofi Pasteur 10Result Comment: Unit: Unknown Route: Intramuscular Supply Officer: Whimsey[employer] 11Result Comment: Route: Intramuscular Supply Officer: GlaxoSmithKline 12Result Comment: Unit: Unknown Medications acetaminophen 325 mg oral tablet TAKE 2 TABLETS (650 MG)ORALLY EVERY 6 HOURS NEEDED FOR PAIN, MILD (PAIN SCALE 1-3) Start Date: 09/22/23 Status: Ordered amLODIPine 2.5 mg oral tablet 1 tablet, By Mouth, Daily, # 90 tablet, 0 Refills, Maintenance, 11/12/23 12:11:00 EST, [facility], 170.18, cm, 10/30/23 14:25:00 EST, Height, 127.2, [...] Start Date: 09/22/23 Status: Ordered nystatin topical 289344 u/gm powder 1 application, Topically, 3 times [...] Effective Dates Health Status Clinical Service Informant Wound of foot Discharge Diagnosis 11/05/23 Type 2 diabetes mellitus with peripheral neuropathy Discharge Diagnosis 11/05/23 Borderline personality disorder Discharge Diagnosis 11/05/23 Major depression in partial remission Discharge Diagnosis 11/05/23 Peripheral arterial disease Discharge Diagnosis 11/05/23 Diabetes type 2, controlled Discharge Diagnosis 11/05/23 Social History Social History Type Response Smoking Status Former smoker, quit more than 30 days ago; Other: quit 1973 6 yrs toal 11/13 6; Number of years: 6; Total pack years: 2; entered on: 07/03/23 Sex Patient Care team information Care Team Personnel Name: Armani Reid DO Position: [facility] Renal MD Member Role: Lifetime Consulting Physician Address: Address: [address] [place], [place] [address] [place] [address]- Name: Erik Kim DO Position: [facility] Physician - Primary Care Member Role: PCP Address: Address: [address] [place] [address]- Care Team Related Persons Name: LORENA HARRISON Address: [address] [place] [address] Name: LAYNE TREADWELL Address: home [address] [place] [address]
[2024-03-09 15:41] VITALS: BMI 40.5
[2024-03-09 16:07] VITALS: BP 125/60; PULSE 83; RESP 18; TEMP 36; O2SAT 99
[2024-03-09 16:16] LABS: Glucose, Whole Blood 85 mg/dL (60-115)
[2024-03-09] MEDS: Lactated Ringers 1,000 ML 100 ML IVCONT (16:19)
[2024-03-09] MEDS: 0.9 % Sodium Chloride Flush 3 ML SYRINGE IVFLUSH (16:19)
--- NOTE | 2024-03-09 16:20 | P.CONHOSP_ITS ---
History of Present Illness Data of Consult Service Date: 03/09/24 Requesting physician: Santiago Paulino Primary Care Provider: Unknown Physician HPI Reason for consult: medical management 73 year old female with history of paroxysmal atrial fibrillation anticoagulated with Eliquis last taken this morning, mood disorder, GERD, tpv-paxywvt-krnlesavs type 2 diabetes admitted to orthopedic surgery for management of displaced trimalleolar fracture of the right ankle with consult placed to hospitalist service for medical management. The patient reports she last took her Eliquis this morning. The initial injury was on 02/23 which was manually reduced in the ER and discharged to [facility] for short-term rehab. She was then seen in the office earlier today recommending closed reduction and possible ORIF. The patient denies any chest pain, palpitations, lightheadedness however reports that for several years she has been experiencing significant dyspnea on exertion with just a few steps as well as going up a flight of stairs. She has no known history of coronary artery disease or congestive heart failure and reports that she has not used her BiPAP in about a month while sleeping due to incorrect settings. She is a former smoker who quit 50 years ago. No drug use or alcohol use. No complaints at this time. Review of Systems Review of Systems: General: No fevers, malaise, unintentional weight loss HEENT: No blurred vision, diplopia. No sore throat, nasal congestion, rhinorr hea, sinus pain, ear pain Cardiovascular: No chest pain, palpitations, or leg edema Respiratory: No shortness of breath, wheezing, cough GI: No abdominal pain, nausea, vomiting, diarrhea, constipation, melena, hematochezia : No dysuria, hematuria, increased urinary frequency, decreased urinary output MSK: No myalgia, back pain Neuro: No headaches, weakness, paresthesias Skin: No rashes or lesions [facility] Medical History SELMA treated with BiPAP Major depressive disorder Borderline personality disorder Diabetic ulcer of right foot Atrial fibrillation Diabetes mellitus Chronic anticoagulation Social History Household Members: None Housing: Senior Living Housing Other:: [place] independent living Do you presently have visiting nurse or other home services: Yes Unable to assess alcohol history related to: Unable to respond Patient Tobacco Use Status: Never used Tobacco Use of substances other than those prescribed or required for medical reasons: No Currently Displaying Signs/Symptoms of Drug Intoxication Withdrawal: No Any prior treatment program specific to substance use: No Have you been hit, kicked, punched, or otherwise hurt by someone within the past year? If so, by whom?: No Do you feel safe in your current relationship?: No Current Relationship Is there a partner from a previous relationship who is making you feel unsafe now?: No Are you made to feel afraid or neglected: No Advance Directives: No Advance Directives Information Provided: No (Not seen) Do you have a plan to hurt others: No Plan Recently lost weight without trying: No How much weight loss: Not applicable Eating poorly because of decreased appetite: No Nutrition screen score: 0 Nutrition Risks: No Nutritional Risk Patient : No service: No Meds Allergies Allergy/AdvReac Type Severity Reaction Status Date / Time mirabegron [From Myrbetriq] Allergy Hallucinati Verified 03/09/24 13:21 ons Active Medications: Current Medications Acetaminophen (Acetaminophen 325 Mg Tablet) 650 mg PO Q6H PRN PRN Reason: Pain, Mild (Pain Scale 1-3) Lactated Ringer's (Lr) 1,000 mls @ 100 mls/hr IVCONT .Q10H [facility] Last Admin: 03/09/24 16:19 Dose: 100 mls/hr Cefazolin Sodium/Dextrose (Ancef) 2 gm in 50 mls @ 100 mls/hr IV PREOP ONE Stop: 03/09/24 16:45 Oxycodone HCl (Oxycodone Hcl Immed Release 5 Mg Tablet) 5 mg PO Q4H PRN PRN Reason: Pain, Moderate(Pain Scale 4-6) Sodium Chloride (0.9 % Sodium Chloride Flush 3 Ml Syringe) 3 ml IVFLUSH QSHIFT [facility] Last Admin: 03/09/24 16:19 Dose: 3 ml Home Medications ?Medication ?Instructions ?Recorded ?Confirmed ?Last Taken ?Type ascorbic acid (vitamin C) 500 mg 500 mg PO DAILY 02/24/24 02/24/24 02/24/24 History tablet cholecalciferol (vitamin D3) 25 25 mcg PO DAILY 02/24/24 02/24/24 02/24/24 History mcg (1,000 unit) tablet cyanocobalamin (vitamin B-12) 1,000 mcg PO DAILY 02/24/24 02/24/24 02/24/24 History 1,000 mcg tablet duloxetine 30 mg capsule,delayed 30 mg PO DAILY 02/24/24 02/24/24 02/24/24 History release duloxetine 60 mg capsule,delayed 60 mg PO DAILY 02/24/24 02/24/24 02/24/24 History release gabapentin 300 mg capsule 300 mg PO DAILY 02/24/24 02/24/24 02/24/24 History gabapentin 300 mg capsule 600 mg PO BEDTIME 02/24/24 02/24/24 02/23/24 History lamotrigine 150 mg tablet 300 mg PO BEDTIME 02/24/24 02/24/24 02/23/24 History Physical Exam Vital Signs and Narrative: Vital Signs: Last Vital Signs Temp 96.8 F 03/09/24 16:07 Pulse 83 03/09/24 16:07 Resp 18 03/09/24 16:07 BP 125/60 03/09/24 16:07 Pulse Ox 99 03/09/24 16:07 O2 Del Method Room Air 03/09/24 16:07 BMI result Body Mass Index 40.5 Constitutional - Awake and Alert, No apparent distress Eyes - PERRLA, EOMI Cardiovascular - S1S2, RRR, No edema Respiratory - Normal lung expansion, Normal respiratory effort, No respiratory distress, CTA bilaterally Gastrointestinal - NT / ND; +BS; No rebound or guarding Extremities - no calf tenderness lle, no swelling. RLE immobilized in fiberglass splint Skin - Warm/Dry Neurological - Alert & oriented x3 Psychological - Appropriate affect Results Labs Labs: Laboratory Results - last 24 hr 03/09/24 16:10 POC Glucose 85 Assessment and Plan (1) MG (dyspnea on exertion): Status: Acute (2) SELMA treated with BiPAP: Status: Acute (3) Trimalleolar fracture of right ankle: Qualifiers: Encounter type: subsequent encounter Fracture healing: with nonunion Fracture type: closed Qualified Code(s): S82.851K - Displaced trimalleolar fracture of right lower leg, subsequent encounter for closed fracture with nonunion Status: Acute Plan 73 year old female with history of paroxysmal atrial fibrillation anticoagulated with Eliquis last taken this morning, mood disorder, GERD, fof-fzsfepf-mljswuqbk type 2 diabetes admitted to orthopedic surgery for management of displaced trimalleolar fracture of the right ankle with consult placed to hospitalist service for medical management. # displaced trimalleolar fracture -plan per orthopedic surgery # dyspnea on exertion -significant history of SELMA on BiPAP with dyspnea on exertion with just a few steps -discussed with Cardiology, echocardiogram ordered -cardiology consult for risk stratification. Orthopedic surgery aware # paroxysmal atrial fibrillation-rate controlled -Eliquis last taken this morning. Hold eliquis -continue metoprolol #Mood disorder -continue home meds #GERD -ppi # [id number]-[id number] type 2 diabetes -poc glucose, diabetic diet -admelog on ssi. hold metformin Thank you for this consult, will continue following
[2024-03-09] MEDS: ceFAZolin Sodium/Dextrose,Iso 2 GM/50 ML PIGGYBACK IV (16:24)
--- NOTE | 2024-03-09 18:36 | PC.NURSE ---
EKG done at bedside at this time for a baseline prior to surgery.
--- NOTE | 2024-03-09 18:37 | PC.NURSE ---
[facility]- Nicole Campo [phone]
--- NOTE | 2024-03-09 19:09 | P.HPOP_ITS ---
History of Present Illness History of Present Illness Date of Service: 03/09/24 Chief complaint: R ankle fx Narrative: Ashley Hurtado is a 73-year-old female who presented to the outpatient orthopedic office today for a splint change and follow up of a right tri- malleolar fracture, which occurred on 02/24/2024 status post a mechanical fall. I last saw the patient in the office on 03/04/2024 when she was placed in the splint for conservative treatment due to comorbidities. She was to remain non- weight bearing. It was recommended for her to be seen by wound care for the ulcer on her foot. I advised the Rehab ([facility]) she is attending to monitor her glucose levels. Of note: Patient presents in the office today from the [facility] facility not wearing the splint. The office received a phone call this morning at 9:32 am and a message was sent from their provider, Hetal, at [facility] stating the patient took everything off and is complaining of ankle pain. They expressed concern for the patient after taking the splint off and the patient was offered an appointment for the same day to be seen. She presented to the office today, 02/11/2024 for a 12:45 pm appointment. After obtaining x-rays the patient's fracture was found to be displaced and the ankle was dislocated. Dr. Paulino was available to see the patient with me while in the office today and a collaborative treatment plan was made. The patient will be sent as a direct admit to the hospital due to the instability of the ankle and for close monitoring of skin breakdown leading to open fracture. She underwent an attempted reduction in the office of the right ankle with the as sistance of Dr. Paulino and was placed in a splint. Dr. Paulino and staff submarine warfare officer, Nicole, applied a custom made splint in an attempt to hold the right ankle in place. [facility] Past Medical History Medical History SELMA treated with BiPAP Major depressive disorder Borderline personality disorder Diabetic ulcer of right foot Atrial fibrillation Diabetes mellitus Chronic anticoagulation Social History Social History Household Members: None Housing: Long-Term Housing Other:: [facility] living Do you presently have visiting nurse or other home services: Yes Unable to assess alcohol history related to: Unable to respond Patient Tobacco Use Status: Never used Tobacco Use of substances other than those prescribed or required for medical reasons: No Currently Displaying Signs/Symptoms of Drug Intoxication Withdrawal: No Any prior treatment program specific to substance use: No Have you been hit, kicked, punched, or otherwise hurt by someone within the past year? If so, by whom?: No Do you feel safe in your current relationship?: No Current Relationship Is there a partner from a previous relationship who is making you feel unsafe now?: No Are you made to feel afraid or neglected: No Advance Directives: No Advance Directives Information Provided: No (Not seen) Do you have a plan to hurt others: No Plan Recently lost weight without trying: No How much weight loss: Not applicable Eating poorly because of decreased appetite: No Nutrition screen score: 0 Nutrition Risks: No Nutritional Risk Patient : No service: No Meds Allergies Allergy/AdvReac Type Severity Reaction Status Date / Time mirabegron [From Myrbetriq] Allergy Hallucinati Verified 03/09/24 13:21 ons Active Medications: Current Medications Acetaminophen (Acetaminophen 325 Mg Tablet) 650 mg PO Q6H PRN PRN Reason: Pain, Mild (Pain Scale 1-3) Glucose (Glucose Gel 15 Gm Gel..Gram.) 15 gm PO Q15M PRN; Protocol PRN Reason: per Hypoglycemia Standing Ord. Lactated Ringer's (Lr) 1,000 mls @ 100 mls/hr IVCONT .Q10H [facility] Last Admin: 03/09/24 16:19 Dose: 100 mls/hr Dextrose (D10) 250 mls @ 750 mls/hr IV Q15M PRN; Protocol PRN Reason: per Hypoglycemia Standing Ord. Insulin Human Lispro (Insulin Lispro 100 Unit/Ml 3 Ml Vial) 0 unit SUBCUT QIDACHS [facility]; Protocol Oxycodone HCl (Oxycodone Hcl Immed Release 5 Mg Tablet) 5 mg PO Q4H PRN PRN Reason: Pain, Moderate(Pain Scale 4-6) Sodium Chloride (0.9 % Sodium Chloride Flush 3 Ml Syringe) [facility] Admin: 03/09/24 16:19 Dose: 3 ml Home Medications ?Medication ?Instructions ?Recorded ?Confirmed ?Last Taken ?Type ascorbic acid (vitamin C) 500 mg 500 mg PO DAILY 02/24/24 02/24/24 02/24/24 History tablet cholecalciferol (vitamin D3) 25 25 mcg PO DAILY 02/24/24 02/24/24 02/24/24 History mcg (1,000 unit) tablet cyanocobalamin (vitamin B-12) 1,000 mcg PO DAILY 02/24/24 02/24/24 02/24/24 History 1,000 mcg tablet duloxetine 30 mg capsule,delayed 30 mg PO DAILY 02/24/24 02/24/24 02/24/24 History release duloxetine 60 mg capsule,delayed 60 mg PO DAILY 02/24/24 02/24/24 02/24/24 History release gabapentin 300 mg capsule 300 mg PO DAILY 02/24/24 02/24/24 02/24/24 History gabapentin 300 mg capsule 600 mg PO BEDTIME 02/24/24 02/24/24 02/23/24 History lamotrigine 150 mg tablet 300 mg PO BEDTIME 02/24/24 02/24/24 02/23/24 History Physical Exam Vital Signs: Vital Signs: Last Vital Signs Temp 96.8 F 03/09/24 16:07 Pulse 83 03/09/24 16:07 Resp 18 03/09/24 16:07 BP 125/60 03/09/24 16:07 Pulse Ox 99 03/09/24 16:07 O2 Del Method Room Air 03/09/24 16:07 BMI result Body Mass Index 40.5 Const: General: cooperative, healthy appearing, comfortable, no acute distress, well developed, alert and awake Orientation/consciousness: patient oriented x3 HEENT: Head: Yes normal to inspection, Yes normocephalic and Yes atraumatic Eyes: General: appearance normal, both eyes and all related structures Neck: Neck: Yes normal visual inspection and Yes no lymphadenopathy Resp: Effort & Inspection: normal respiratory effort and able to speak in complete sentences Cardio: Rate: regular rate Peripheral pulses: Peripheral pulses 2+ throughout GI: Inspection: Yes normal to inspection Palpation (GI): Soft to palpation Skin: General skin exam: no rashes or lesions noted Neuro: General: patient oriented x3 Extrem: Other: Right ankle: Obvious deformity. Ecchymosis along the anterior aspect of the tibial shaft. Resolving small fracture blisters along the medial distal tibia. Some mild superficial skin breakdown along the anterior lateral aspect of the ankle. Diabetic ulcers on the second and third digits. No surrounding erythema or drainage. No signs of infection. Medial medialis is extremely prominent. There are no current open areas of open fracture. Sensation is diminished at baseline due to diabetes. Pedal pulse intact. Able to move all digits. Psych: Mental Status: mental status grossly normal Results Labs Labs: All other labs normal. Assessment and Plan (1) Trimalleolar fracture of right ankle: Qualifiers: Encounter type: subsequent encounter Fracture type: closed Fracture healing: with nonunion Qualified Code(s): S82.851K - Displaced trimalleolar fracture of right lower leg, subsequent encounter for closed fracture with nonunion Status: Acute I discussed the case with Dr. Paulino and he explained the extent of the injury to the patient and options available which include surgical intervention. Dr. Paulino explained the procedure in detail along with the length of recovery and rehab course. Dr. Paulino explained the risk, benefits and alternatives. Risk including, but not limited to infection, blood clots, bleeding, non union or malunion and nerve/tissue damage to surrounding areas. I answered all their questions and with their understanding they have consented to move forward with Operative Fixation of the right ankle. The plan will be to direct admit the patient to the med surg floor of the hospital. She will remain NPO after midnight with the plan to evaluate the skin at the fracture site tomorrow morning and likely bring to the operating room for open vs. closed reduction internal fixation of the right ankle. Patient needs to remain nonweightbearing on the right lower extremity. Strict elevation on three pillows above heart level. (2) Diabetic ulcer of right foot: Qualifiers: Diabetic foot ulcer location: toe Diabetes mellitus type: type 2 Non- pressure ulcer stage: unspecified non-pressure ulcer stage Qualified Code(s): E11.621 - Type 2 diabetes mellitus with foot ulcer; L97.519 - Non-pressure chronic ulcer of other part of right foot with unspecified severity Status: Acute (3) Atrial fibrillation: Qualifiers: Atrial fibrillation type: unspecified Qualified Code(s): I48.91 - Unspecified atrial fibrillation Status: Acute (4) Diabetes mellitus: Status: Acute Quality Stroke Does the patient have a stroke diagnosis?: No VTE Prior VTE?: No VTE Risk Level:: Medical - moderate - high VTE Device Contraindication: N/A - Device Ordered VTE Drug Contraindication: N/A - Med Ordered Procedures Date of Service Date of Service: 03/09/24
[2024-03-09 19:27] VITALS: BP 133/80; PULSE 95; RESP 18; TEMP 36.4; O2SAT 96
--- NOTE | 2024-03-09 19:34 | PHA.MEDREC ---
Pharmacy Consult ? Medication Reconciliation Pharmacy has completed the medication reconciliation. Med rec completed on 02/24/24by [facility]. Utilized discharge summary for med rec. Andrew ArroyoD
[2024-03-09] MEDS: Acetaminophen 325 MG TABLET 650 MG PO (20:07)
[2024-03-09 20:27] LABS: Glucose, Whole Blood 124 mg/dL (60-115)
[2024-03-10] VITALS (16 sets, daily range): BP systolic 112–165; BP diastolic 74–101; PULSE 74–103; RESP 14–22; TEMP 36–36.8; O2SAT 94–99
[2024-03-10] MEDS: Lactated Ringers 1,000 ML 100 ML IVCONT ×2 (01:34→10:43)
--- NOTE | 2024-03-10 07:00 | CA_ITS ---
Transthoracic Echocardiogram Patient (Last, First, Middle): Ashley Hurtado B Gender: Female Date of : 1950 Age: 73 Procedure Date: 03/10/2024 Procedure Type: Transthoracic Echocardiogram Location: S3E Height: 170.18 cm Weight: 117.03 kg BSA: 2.25 m2 Heart Rate: 114 bpm BP: 140 / 89 mmHg Costume Shop Coordinator: SB Referring MD: Fay MILLER Symptoms: urbano, pre op eval Study Quality: Adequate ECG Rhythm: Atrial Fibrillation Conclusions: - The left ventricular systolic function is normal. The visually estimated ejection fraction is between 65-70%. - There is mildly increased left ventricular wall thickness. - No obvious valvular pathology seen on this study. Findings Procedure Information Contrast agent, definity, is being given per protocol without apparent complications. The quality of the study was technically difficult. The study quality is limited by patients body habitus and limitations of a portable exam. Left Ventricle Normal left ventricular cavity size. There is mildly increased left ventricular wall thickness. The left ventricular systolic function is normal. The visually estimated ejection fraction is between 65-70%. There is no evidence of regional wall motion abnormalities. Diastolic function is indeterminate on the basis of available data. Right Ventricle Normal right ventricular cavity size and systolic function. Atria Mild biatrial enlargement. Aortic Valve There is a normal trileaflet aortic valve. There is no aortic valve stenosis. There is no aortic valve regurgitation. Mitral Valve The mitral valve appears normal. There is no mitral valve regurgitation. There is no mitral valve stenosis. Pulmonic Valve The pulmonic valve is likely normal. Tricuspid Valve There is no tricuspid valve regurgitation. Tricuspid regurgitation envelope is inadequate for calculation of right ventricular systolic pressure. Great Vessels The asc aorta is normal in size. Venous The inferior vena cava is normal in size and collapses greater than 50% with inspiration. Pericardium/Pleural There is no evidence of pericardial effusion. Prior Study Comparison No prior study available for comparison. Recommendations, Care & Conclusions No obvious valvular pathology seen on this study. Measurements 2D Linear Measurements IVSd: 1.18 0.6-0.9/0.6-1.0 cm LVIDd: 4.91 3.9-5.3/4.2-5.9 cm LVIDd Index: 2.18 2.4-3.2/2.2-3.1 cm/m2 LVPWd: 1.23 0.7-1.1 cm LA Diam: 4.40 2.7-3.8/3.0-4.0 cm LAIDs Index: 1.96 1.5-2.3 cm/m2 LV Mass: 284.81 67-162/88-224 g LV Mass Index: 126.58 43-95/49-115 g/m2 LVOT Diam: 2.40 3.0+(-)1.3 cm 2D Systolic Function EF 4C: 64.30 >55% EF 2C: 60.90 >55% EF BiP: 63.60 >55% Mitral Valve MV Pk E: 0.92 E'Medial: 9.80 E/E' Med: 9.40 Aortic Valve AoV Pk Aiden: 1.29 AoV Pk Grad: 7.00 JOSEPH: 3.71 LVOT LVOT Pk Aiden: 1.06 LVOT Mn Aiden: 0.79 LVOT VTI: 0.19 LVOT Pk Grad: 4.00 LVOT Mn Grad: 3.00 LVOT Diam: 2.40 LVOT Area: 4.52 Diastolic Function MV Pk E: 0.92 E'Medial: 9.80 E/E' Med: 9.40 Right Ventricle TAPSE (mm): 18.00 TVS' Aiden: 11.30 Tricuspid Valve RA Press: 3.00 Great Vessels Aorta Sinus of Valsalva: 3.90 2.0-3.5 cm Ao Asc: 3.40 2.1-3.4 cm Pulmonary Valve PV Pk Aiden: 0.95 Peak PV Grad: 4.00 Updated in Other Vendor System with Status of Final Som Vivar MD electronically signed on 03/10/2024 11:35:28 AM with status of Final
[2024-03-10 07:31] LABS: MANUAL DIFF FLAG NO
[2024-03-10 07:35] LABS: Glucose, Whole Blood 76 mg/dL (60-115)
[2024-03-10 07:43] LABS: Basophils Percent Auto 0.5 % (0-2); Eosinophils Absolute Auto 0.2 X10*3/uL (0.0-0.4); Eosinophils Percent Auto 3.4 % (0-4); Hematocrit 31.4 % (37.0-47.0); Hemoglobin 10.3 g/dl (12.0-16.0); Imm Gran Abs Auto 0.03 X10*3/uL (0.00-0.03); Imm Gran Pct Auto 0.5 % (0.0-0.4); Lymphocytes Absolute Auto 1.6 X10*3/uL (1.2-4.9); Lymphocytes Percent Auto 27.6 % (20-40); Mean Corpuscular HGB Conc 32.8 g/dl (31.0-35.0); Mean Corpuscular Hemoglobin 28.3 pg (27.0-33.0); Mean Corpuscular Volume 86.3 fL (80.0-98.0); Mean Platelet Volume 9.8 fL (9.4-12.3); Monocytes Absolute Auto 0.5 X10*3/uL (0.1-1.2); Monocytes Percent Auto 8.1 % (2-11); Neutrophils Absolute Auto 3.5 x10*3/uL (2.0-8.3); Neutrophils Percent Auto 59.9 % (45-73); Platelet Count 354 X10*3/uL (160-400); Red Blood Count 3.64 X10*6/uL (4.20-5.50); Red Cell Distribution Width 16.9 % (11.0-16.0); White Blood Count 5.9 X10*3/uL (4.8-10.8)
--- NOTE | 2024-03-10 07:49 | PM.PNORT ---
Subjective Subjective Date of Service: 03/10/24 Interval history: Patient resting in bed No overnight events Pain is managed Not elevating RLE Physical Exam Vital Signs: Vital Signs: Last Vital Signs Temp 97.8 F 03/10/24 03:53 Pulse 93 03/10/24 03:53 Resp 18 03/10/24 03:53 BP 140/89 H 03/10/24 03:53 Pulse Ox 97 03/10/24 03:53 O2 Del Method Room Air 03/10/24 03:53 BMI result Body Mass Index 40.5 Const: General: cooperative, healthy appearing and no acute distress Resp: Effort & Inspection: normal respiratory effort and able to speak in complete sentences Cardio: Rate: regular rate Peripheral pulses: Peripheral pulses 2+ throughout GI: Palpation (GI): Soft to palpation Skin: Lesions: no lesions Rashes: no rashes Extrem: Other: RLE splint is c/d/i. moving all digits. Procedures Date of Service Date of Service: 03/10/24 Progress Note: A&P Assessment and plan (1) Trimalleolar fracture of right ankle: Status: Acute Assessment and Plan: RLE - Strict elevation on three pillows above heart level NWB RLE Cardiology was consulted due to patient having significant MG - Obtaining echo this morning Remain NPO in hopes to bring to the OR later today for open vs closed reduction (2) Diabetic ulcer of right foot: Status: Acute (3) Atrial fibrillation: Status: Acute (4) Diabetes mellitus: Status: Acute Time Spent With Patient Time: Total time managing care of this patient today ____ minutes. Quality Stroke Does the patient have a stroke diagnosis?: No VTE Prior VTE?: No VTE Risk Level:: Medical - moderate - high VTE Device Contraindication: N/A - Device Ordered VTE Drug Contraindication: N/A - Med Ordered
--- NOTE | 2024-03-10 07:52 | PM.EVENT ---
Event Note Date of Service: 03/10/24 Time Spent With Patient Time: Total time managing care of this patient today ____ minutes.
[2024-03-10 07:55] LABS: Anion Gap 14 (12-20); Blood Urea Nitrogen 11 mg/dL (9-16); Calcium 9.1 mg/dL (8.4-10.2); Carbon Dioxide 25 mmol/L (22-29); Chloride 107 mmol/L (96-108); Creatinine Clr Calc Pharmacy 100.5; Estimated Glomerular Filt Rate > 60; Glucose Fasting 78 mg/dL (60-99); Potassium 3.5 mmol/L (3.3-5.1); Sodium 142 mmol/L (135-145)
--- NOTE | 2024-03-10 07:55 | P.PNIM_ITS ---
Subjective Subjective Date of Service: 03/10/24 Interval History: Seen in follow up for consult, medical management Interval history: No complaints, ehco pending. NPO, plan for surgery later today per ortho Review of Systems Review of Systems: Yes all other systems are reviewed and are negative Physical Exam 2 Vital Signs: Vital Signs: Last Vital Signs Temp 97.8 F 03/10/24 03:53 Pulse 93 03/10/24 03:53 Resp 18 03/10/24 03:53 BP 140/89 H 03/10/24 03:53 Pulse Ox 97 03/10/24 03:53 O2 Del Method Room Air 03/10/24 03:53 BMI result Body Mass Index 40.5 Constitutional - Awake and Alert, No apparent distress Eyes - PERRLA, EOMI Cardiovascular - S1S2, irregularly irregular, normal rate. No edema Respiratory - Normal lung expansion, Normal respiratory effort, No respiratory distress, CTA bilaterally Gastrointestinal - NT / ND; +BS; No rebound or guarding Extremities - RLE immobilized in fiberglass splint Skin - Warm/Dry Neurological - Alert & oriented x3, sensation in tact Objective Data Active Medications Acetaminophen (Acetaminophen 325 Mg Tablet) 650 mg PO Q6H PRN PRN Reason: Pain, Mild (Pain Scale 1-3) Last Admin: 03/09/24 20:07 Dose: 650 mg Documented By: IHSAN Glucose (Glucose Gel 15 Gm Gel..Gram.) 15 gm PO Q15M PRN; Protocol PRN Reason: per Hypoglycemia Standing Ord. Lactated Ringer's (Lr) 1,000 mls @ 100 mls/hr IVCONT .Q10H [facility] Last Admin: 03/10/24 01:34 Dose: 100 mls/hr Documented By: IHSAN Dextrose (D10) 250 mls @ 750 mls/hr IV Q15M PRN; Protocol PRN Reason: per Hypoglycemia Standing Ord. Insulin Human Lispro (Insulin Lispro 100 Unit/Ml 3 Ml Vial) 0 unit SUBCUT QIDACHS [facility]; Protocol Last Admin: 03/09/24 21:41 Dose: Not Given Documented By: IHSAN Non-Admin Reason: No Insulin Coverage Oxycodone HCl (Oxycodone Hcl Immed Release 5 Mg Tablet) 5 mg PO Q4H PRN PRN Reason: Pain, Moderate(Pain Scale 4-6) Sodium Chloride (0.9 % Sodium Chloride Flush 3 Ml Syringe) 3 ml IVFLUSH QSHIFT [facility] Last Admin: 03/10/24 00:27 Dose: Not Given Documented By: IHSAN Non-Admin Reason: IV Running Labs 03/10/24 06:07 03/10/24 06:07 Labs: Laboratory Results - last 24 hr 03/09/24 03/09/24 03/10/24 16:10 20:14 06:07 MCV 86.3 MCH 28.3 MCHC 32.8 RDW 16.9 H Plt Count 354 D MPV 9.8 Immature Gran % (Auto) 0.5 H Neut % (Auto) 59.9 Lymph % (Auto) 27.6 [place] % (Auto) 8.1 Eos % (Auto) 3.4 Baso % (Auto) 0.5 Lymph # (Auto) 1.6 [place] # (Auto) 0.5 Eos # (Auto) 0.2 Baso # (Auto) 0.0 Abs Immat Gran (auto) 0.03 Absolute Neuts (auto) 3.5 Absolute Nucleated RBC 0.000 Nucleated RBC % (auto) 0.0 POC Glucose 85 124 H 03/10/24 07:17 MCV MCH MCHC RDW Plt Count MPV Immature Gran % (Auto) Neut % (Auto) Lymph % (Auto) [place] % (Auto) Eos % (Auto) Baso % (Auto) Lymph # (Auto) [place] # (Auto) Eos # (Auto) Baso # (Auto) Abs Immat Gran (auto) Absolute Neuts (auto) Absolute Nucleated RBC Nucleated RBC % (auto) POC Glucose 76 Assessment and Plan (1) Trimalleolar fracture of right ankle: Status: Acute (2) Persistent atrial fibrillation: Status: Acute (3) MG (dyspnea on exertion): Status: Acute Plan 73 year old female with history of paroxysmal atrial fibrillation anticoagulated with Eliquis last taken this morning, mood disorder, GERD, [id number] type 2 diabetes admitted to orthopedic surgery for management of displaced trimalleolar fracture of the right ankle with consult placed to hospitalist service for medical management. # displaced trimalleolar fracture -plan per orthopedic surgery -resume eliquis post operatively per orthopedic surgery -see cardiology consult # dyspnea on exertion -significant history of SELMA on BiPAP with dyspnea on exertion with just a few steps -Echo from [facility] shows normal LV systolic function EF 55%, echo this morning unchanged -?r/t persistent atrial fibrillation -ok to proceed with surgery per cardiology -Outpt follow up with cardiology # persistent atrial fibrillation-rate controlled -Continue holding eliqui. Resume per orthopedic surgery -continue metoprolol -outpt follow up with cardiology #Mood disorder -continue home meds #GERD -ppi # [id number]-wtyknclia type 2 diabetes -poc glucose, diabetic diet -admelog on ssi. hold metformin Thank you for this consult, will continue following Quality Stroke Does the patient have a stroke diagnosis?: No VTE Prior VTE?: No VTE Risk Level:: Medical - moderate - high VTE Device Contraindication: N/A - Device Ordered VTE Drug Contraindication: N/A - Med Ordered
--- NOTE | 2024-03-10 09:38 | MHC.CM.PN ---
Addendum entered by Cornelia Mae RN 03/10/24 15:01: Per [facility], patient is not a bed hold and they are unsure if they will be able to offer on dc. Patient and family were encouraged to pay for bed hold and reported that private funds were available, but they were unwilling to pay for bedhold. Original Note: IMM delivered. Patient comes to [facility] from [facility] at [facility]. Patient states [facility] was paying for STR stay (she did not have QHS when admitted). Lives at [facility] in an apartment. Receives two meals/day. Ambulates w/ wheeled walker. When home was active w/ [facility] for SN. Also seen at [facility] wound clinic for DM ulcer. PCP Erik Kim MD HCP on file and verified, agent is patient's sister Nicole DP: Goal is to return to [facility] at [facility] via BLS. Patient reports she called facility to ensure bed would be held, and was told it would be, isn't sure if she paid. Return referral sent, awaiting confirmation of bed hold. CM will continue to follow.
[2024-03-10 09:44] LABS: Estimated Average Glucose 108 mg/dL; Hemoglobin A1c % 5.4 % (<6.0)
--- NOTE | 2024-03-10 10:07 | MHC.CLN ---
NUTRITION CONSULT FOR DIABETIC ULCER RIGHT LE. PATIENT IS CURRENTLY NPO FOR RIGHT ANKLE PINNING. WHEN ABLE TO TOLERATE DIET, RECOMMEND DIABETIC 2000 KCAL DIET.
--- NOTE | 2024-03-10 10:23 | PM.CNCAR ---
History of Present Illness History of Present Illness Date of Service: 03/10/24 Chief complaint: R ankle fx Narrative: This is a cardiology consultation regarding preoperative stratification for surgery regarding right ankle fracture. It seems that patient has a history of atrial fibrillation but no documented coronary disease or cardiomyopathy. She describes chronic shortness of breath that has apparently been present for a long time and not a new finding. No anginal-type complaints. Review of Systems Review of Systems: Yes all other systems are reviewed and are negative Constitutional: Constitutional: Reports as per HPI and Reports no additional constitutional complaints Eyes: Eyes: Reports as per HPI and Denies no additional eye complaints ENT: Denies system reviewed and no additional complaints, except as documented and Reports as per HPI Cardiovascular: Cardiovascular: Reports as per HPI, Reports no additional cardiovascular complaints, Denies acrocyanosis, Denies cool extremities, Denies chest pain, Denies leg edema, Denies lightheadedness, Denies palpitations and Reports dyspnea Respiratory: Respiratory: Reports as per HPI, Denies no additional respiratory complaints and Reports dyspnea Gastrointestinal: Gastrointestinal: Reports as per HPI and Denies no additional gastrointestinal complaints Genitourinary: Genitourinary: Reports as per HPI Musculoskeletal: Musculoskeletal: Reports no additional musculoskeletal complaints and Reports as per HPI Integumentary/Breasts: Skin/Breast: Reports system reviewed and no additional complaints, except as docu Neurologic: Reports system reviewed and no additional complaints, except as documented and Reports as per HPI Psychiatric: Psychiatric: Reports no additional psychiatric complaints and Reports as per HPI Endocrine: Endocrine: Reports no additional endocrine complaints, Reports as per HPI and Denies palpitations Hematologic/Lymphatic: Hematologic/Lymphatic: Reports no additional hematologic/lymphatic complaints and Reports as per HPI Allergic/Immunologic: Allergic/Immunologic: Reports no additional allergic/immunologic complaints and Reports as per HPI [facility] Past Medical History Medical History SELMA treated with BiPAP Major depressive disorder Borderline personality disorder Diabetic ulcer of right foot Atrial fibrillation Diabetes mellitus Chronic anticoagulation Family History Pertinent family history: No pertinent family history Social History Social History Household Members: None Housing: [facility] Other:: [facility] Do you presently have visiting nurse or other home services: Yes Unable to assess alcohol history related to: Unable to respond Patient Tobacco Use Status: Never used Tobacco Use of substances other than those prescribed or required for medical reasons: No Currently Displaying Signs/Symptoms of Drug Intoxication Withdrawal: No Any prior treatment program specific to substance use: No Have you been hit, kicked, punched, or otherwise hurt by someone within the past year? If so, by whom?: No Do you feel safe in your current relationship?: No Current Relationship Is there a partner from a previous relationship who is making you feel unsafe now?: No Are you made to feel afraid or neglected: No Advance Directives: No Advance Directives Information Provided: No (Not seen) Do you have a plan to hurt others: No Plan Recently lost weight without trying: No How much weight loss: Not applicable Eating poorly because of decreased appetite: No Nutrition screen score: 0 Nutrition Risks: No Nutritional Risk Patient : No service: No Meds Allergies Allergy/AdvReac Type Severity Reaction Status Date / Time mirabegron [From Myrbetriq] Allergy Hallucinati Verified 03/09/24 13:21 ons Active Medications: Current Medications Acetaminophen (Acetaminophen 325 Mg Tablet) 650 mg PO Q6H PRN PRN Reason: Pain, Mild (Pain Scale 1-3) Last Admin: 03/09/24 20:07 Dose: 650 mg Ascorbic Acid (Ascorbic Acid 500 Mg Tablet) 500 mg PO DAILY [facility] Atorvastatin Calcium (Atorvastatin Calcium 40 Mg Tablet) 40 mg PO DAILY [facility] Cyanocobalamin (Cyanocobalamin (Vitamin B-12) 1,000 Mcg Tablet) 1,000 mcg PO DAILY [facility] Duloxetine HCl (Duloxetine Hcl 30 Mg Capsule.) 30 mg PO DAILY [facility] Duloxetine HCl (Duloxetine Hcl 60 Mg Capsule.) 60 mg PO DAILY [facility] Gabapentin (Gabapentin 300 Mg Capsule) 300 mg PO DAILY [facility] Gabapentin (Gabapentin 300 Mg Capsule) 600 mg PO BEDTIME [facility] Glucose (Glucose Gel 15 Gm Gel..Gram.) 15 gm PO Q15M PRN; Protocol PRN Reason: per Hypoglycemia Standing Ord. Lactated Ringer's (Lr) 1,000 mls @ 100 mls/hr IVCONT .Q10H [facility] Last Admin: 03/10/24 01:34 Dose: 100 mls/hr Dextrose (D10) 250 mls @ 750 mls/hr IV Q15M PRN; Protocol PRN Reason: per Hypoglycemia Standing Ord. Insulin Human Lispro (Insulin Lispro 100 Unit/Ml 3 Ml Vial) 0 unit SUBCUT QIDACHS [facility]; Protocol Last Admin: 03/10/24 08:11 Dose: Not Given Lamotrigine (Lamotrigine 100 Mg Tablet) 300 mg PO BEDTIME [facility] Metoprolol Tartrate (Metoprolol Tartrate 50 Mg Tablet) 50 mg PO BID [facility]; Protocol Nystatin (Nystatin Powder 15 Gm Bottle) 1 appl TOPICAL TID RICKY; Protocol Omeprazole (Omeprazole 40 Mg Capsule.Dr) 40 mg PO DAILY@0630 [facility] Oxycodone HCl (Oxycodone Hcl Immed Release 5 Mg Tablet) 5 mg PO Q4H PRN PRN Reason: Pain, Moderate(Pain Scale 4-6) Sodium Chloride (0.9 % Sodium Chloride Flush 3 Ml Syringe) 3 ml IVFLUSH QSHIFT [facility] Last Admin: 03/10/24 08:11 Dose: Not Given Vitamin D (Cholecalciferol (Vitamin D3) 25 Mcg Tablet) 25 mcg PO DAILY [facility] Home Medications ?Medication ?Instructions ?Recorded ?Confirmed ?Last Taken ?Type ascorbic acid (vitamin C) 500 mg 500 mg PO DAILY 02/24/24 03/09/24 02/24/24 History tablet cholecalciferol (vitamin D3) 25 25 mcg PO DAILY 02/24/24 03/09/24 02/24/24 History mcg (1,000 unit) tablet cyanocobalamin (vitamin B-12) 1,000 mcg PO DAILY 02/24/24 03/09/24 02/24/24 History 1,000 mcg tablet duloxetine 30 mg capsule,delayed 30 mg PO DAILY 02/24/24 03/09/24 02/24/24 History release duloxetine 60 mg capsule,delayed 60 mg PO DAILY 02/24/24 03/09/24 02/24/24 History release gabapentin 300 mg capsule 300 mg PO DAILY 02/24/24 03/09/24 02/24/24 History gabapentin 300 mg capsule 600 mg PO BEDTIME 02/24/24 03/09/24 02/23/24 History lamotrigine 150 mg tablet 300 mg PO BEDTIME 02/24/24 03/09/24 02/23/24 History Physical Exam Vital Signs: Vital Signs: Last Vital Signs Temp 97.3 F 03/10/24 08:00 Pulse 103 H 03/10/24 08:00 Resp 14 03/10/24 08:00 BP 146/91 H 03/10/24 08:00 Pulse Ox 99 03/10/24 08:00 O2 Del Method Room Air 03/10/24 08:00 BMI result Body Mass Index 40.5 Const: General: comfortable and no acute distress Orientation/consciousness: patient oriented x3 HEENT: Other: Unremarkable Head: Yes normal to inspection Neck: Neck: Yes normal visual inspection Chest: Chest palpation & inspection: normal inspection of the chest Resp: Auscultation: clear to auscultation bilaterally Cardio: Palpation: normal PMI Heart sounds: S1 normal heart sound present, S2 normal heart sound present, no gallops, no murmurs and no rubs GI: Palpation (GI): Soft to palpation Back/Spine/Pelvis: Other: unremarkable Skin: General skin exam: no rashes or lesions noted Neuro: General: patient oriented x3 Extrem: General: Yes normal to inspection Psych: Mental Status: mental status grossly normal Objective Labs and Meds 03/10/24 06:07 03/10/24 06:07 Lab results: Laboratory Results - last 24 hr 03/09/24 03/09/24 03/10/24 16:10 20:14 06:07 WBC 5.9 RBC 3.64 L Hgb 10.3 L Hct 31.4 L MCV 86.3 MCH 28.3 MCHC 32.8 RDW 16.9 H Plt Count 354 D MPV 9.8 Immature Gran % (Auto) 0.5 H Neut % (Auto) 59.9 Lymph % (Auto) 27.6 [place] % (Auto) 8.1 Eos % (Auto) 3.4 Baso % (Auto) 0.5 Lymph # (Auto) 1.6 [place] # (Auto) 0.5 Eos # (Auto) 0.2 Baso # (Auto) 0.0 Abs Immat Gran (auto) 0.03 Absolute Neuts (auto) 3.5 Absolute Nucleated RBC 0.000 Nucleated RBC % (auto) 0.0 Sodium 142 Potassium 3.5 D Chloride 107 Carbon Dioxide 25 Anion Gap 14 BUN 11 Creatinine 0.67 Estim Creat Clear Calc 100.5 Estimated GFR > 60 POC Glucose 85 124 H Fasting Glucose 78 Estimat Average Glucose 108 Hemoglobin A1c % 5.4 Calcium 9.1 03/10/24 07:17 WBC RBC Hgb Hct MCV MCH MCHC RDW Plt Count MPV Immature Gran % (Auto) Neut % (Auto) Lymph % (Auto) [place] % (Auto) Eos % (Auto) Baso % (Auto) Lymph # (Auto) [place] # (Auto) Eos # (Auto) Baso # (Auto) Abs Immat Gran (auto) Absolute Neuts (auto) Absolute Nucleated RBC Nucleated RBC % (auto) Sodium Potassium Chloride Carbon Dioxide Anion Gap BUN Creatinine Estim Creat Clear Calc Estimated GFR POC Glucose 76 Fasting Glucose Estimat Average Glucose Hemoglobin A1c % Calcium ECG Interpretation: EKG with atrial fibrillation at a rate of 89/Min; nonspecific ST-T changes. Assessment and Plan (1) Preoperative cardiovascular examination: Status: Acute (2) Persistent atrial fibrillation: Status: Acute Plan In the last echocardiogram from [facility] from January 2024; LVEF is low normal 55%. Severely dilated left atrium. No significant valvular findings. Another echocardiogram has been completed and will review. Unless any new findings on this study, she will be able to proceed with the proposed ankle surgery. Cardiac risk would be considered intermediate.. Her chronic shortness of breath could be from some combination of atrial fibrillation, deconditioning among others. I do not see any unstable cardiac findings at this time. Procedures Date of Service Date of Service: 03/10/24
[2024-03-10] MEDS: Metoprolol Tartrate 50 MG TABLET PO ×2 (10:37→21:12)
[2024-03-10] MEDS: DULoxetine HCl 30 MG CAPSULE.DR PO (10:38)
[2024-03-10] MEDS: DULoxetine HCl 60 MG CAPSULE.DR PO (10:38)
[2024-03-10] MEDS: Omeprazole 40 MG CAPSULE.DR PO (10:38)
--- NOTE | 2024-03-10 12:57 | MHC.SHP ---
Pre-Procedural Eval Section A - 24 Hr Update-Section A only Date of Service: 03/10/24 The patient is an INPATIENT: Yes Changes since office visit: No Cold of Flu in the past 2 weeks, No New Medical Problems, No Changes in Medication and No Patient answered all questions The patient has been examined within 24 hours of the surgical procedure. The History & Physical has been completed within 30 days and I have reviewed it.: Yes Section B - Complete if H&P > 30 days Chief Complaint: R ankle fx Allergies: Allergies Allergy/AdvReac Type Severity Reaction Status Date / Time mirabegron [From Myrbetriq] Allergy Hallucinati Verified 03/09/24 13:21 ons Plan I have reviewed the history and physical and performed a pertinent physical examination on my patient. No changes have occurred unless specified. Time Spent With Patient Time: Total time managing care of this patient today ____ minutes.
--- NOTE | 2024-03-10 13:57 | P.CONAN_ITS ---
[facility] Active Problems Active Problems: All Active Problems (Updated 03/10/24 @ 13:39 by Jessica Reilly RN) Persistent atrial fibrillation (Acute) Preoperative cardiovascular examination (Acute) MG (dyspnea on exertion) (Acute) Trimalleolar fracture of right ankle (Acute) Suicide attempt (Acute) SELMA treated with BiPAP (Acute) Diabetic ulcer of right foot (Acute) Atrial fibrillation (Acute) Borderline personality disorder (Acute) Major depressive disorder (Acute) Diabetes mellitus (Acute) Past Medical History Medical History (Updated 03/10/24 @ 13:39 by Jessica Reilly RN) Elevated cholesterol Anxiety SELMA treated with BiPAP Diabetic ulcer of right foot Atrial fibrillation Borderline personality disorder Major depressive disorder Diabetes mellitus Chronic anticoagulation Family History Family history of problems with anesthesia: No Surgical History Surgical History (Updated 03/10/24 @ 13:40 by Jessica Reilly RN) Hx of esophagogastroduodenoscopy Hx of colonoscopy History of carpal tunnel release of both wrists Hx of bilateral cataract extraction Hx of bilateral breast reduction surgery Hx of hysterectomy History of Problems with Anesthesia: No Social History Social History Household Members: None Housing: Custodial Housing Other:: [place] independent living Do you presently have visiting nurse or other home services: Yes Unable to assess alcohol history related to: Unable to respond Patient Tobacco Use Status: Never used Tobacco Use of substances other than those prescribed or required for medical reasons: No Currently Displaying Signs/Symptoms of Drug Intoxication Withdrawal: No Any prior treatment program specific to substance use: No Have you been hit, kicked, punched, or otherwise hurt by someone within the past year? If so, by whom?: No Do you feel safe in your current relationship?: No Current Relationship Is there a partner from a previous relationship who is making you feel unsafe now?: No Are you made to feel afraid or neglected: No Advance Directives: No Advance Directives Information Provided: No (Not seen) Do you have a plan to hurt others: No Plan Recently lost weight without trying: No How much weight loss: Not applicable Eating poorly because of decreased appetite: No Nutrition screen score: 0 Nutrition Risks: No Nutritional Risk Patient : No service: No Meds Allergies Allergy/AdvReac Type Severity Reaction Status Date / Time mirabegron [From Myrbetriq] Allergy Hallucinati Verified 03/09/24 13:21 ons Active Medications: Current Medications Acetaminophen (Acetaminophen 325 Mg Tablet) 650 mg PO Q6H PRN PRN Reason: Pain, Mild (Pain Scale 1-3) Last Admin: 03/09/24 20:07 Dose: 650 mg Ascorbic Acid (Ascorbic Acid 500 Mg Tablet) 500 mg PO DAILY [facility] Atorvastatin Calcium (Atorvastatin Calcium 40 Mg Tablet) 40 mg PO DAILY [facility] Cyanocobalamin (Cyanocobalamin (Vitamin B-12) 1,000 Mcg Tablet) 1,000 mcg PO DAILY [facility] Duloxetine HCl (Duloxetine Hcl 30 Mg Capsule.) 30 mg PO DAILY [facility] Last Admin: 03/10/24 10:38 Dose: 30 mg Duloxetine HCl (Duloxetine Hcl 60 Mg Capsule.) 60 mg PO DAILY [facility] Last Admin: 03/10/24 10:38 Dose: 60 mg Gabapentin (Gabapentin 300 Mg Capsule) 300 mg PO DAILY [facility] Gabapentin (Gabapentin 300 Mg Capsule) 600 mg PO BEDTIME [facility] Glucose (Glucose Gel 15 Gm Gel..Gram.) 15 gm PO Q15M PRN; Protocol PRN Reason: per Hypoglycemia Standing Ord. Lactated Ringer's (Lr) 1,000 mls @ 100 mls/hr IVCONT .Q10H [facility] Last Admin: 03/10/24 10:43 Dose: 100 mls/hr Dextrose (D10) 250 mls @ 750 mls/hr IV Q15M PRN; Protocol PRN Reason: per Hypoglycemia Standing Ord. Insulin Human Lispro (Insulin Lispro 100 Unit/Ml 3 Ml Vial) 0 unit SUBCUT QIDACHS [facility]; Protocol Last Admin: 03/10/24 11:15 Dose: Not Given Lamotrigine (Lamotrigine 100 Mg Tablet) 300 mg PO BEDTIME [facility] Metoprolol Tartrate (Metoprolol Tartrate 50 Mg Tablet) 50 mg PO BID [facility]; Protocol Last Admin: 03/10/24 10:37 Dose: 50 mg Nystatin (Nystatin Powder 15 Gm Bottle) 1 appl TOPICAL TID [facility]; Protocol Omeprazole (Omeprazole 40 Mg Capsule.) 40 mg PO DAILY@0630 [facility] Last Admin: 03/10/24 10:38 Dose: 40 mg Oxycodone HCl (Oxycodone Hcl Immed Release 5 Mg Tablet) 5 mg PO Q4H PRN PRN Reason: Pain, Moderate(Pain Scale 4-6) Sodium Chloride (0.9 % Sodium Chloride Flush 3 Ml Syringe) 3 ml IVFLUSH QSHIFT [facility] Last Admin: 03/10/24 08:11 Dose: Not Given Vitamin D (Cholecalciferol (Vitamin D3) 25 Mcg Tablet) 25 mcg PO DAILY [facility] Home Medications ?Medication ?Instructions ?Recorded ?Confirmed ?Last Taken ?Type ascorbic acid (vitamin C) 500 mg 500 mg PO DAILY 02/24/24 03/09/24 02/24/24 History tablet cholecalciferol (vitamin D3) 25 25 mcg PO DAILY 02/24/24 03/09/24 02/24/24 History mcg (1,000 unit) tablet cyanocobalamin (vitamin B-12) 1,000 mcg PO DAILY 02/24/24 03/09/24 02/24/24 History 1,000 mcg tablet duloxetine 30 mg capsule,delayed 30 mg PO DAILY 02/24/24 03/09/24 02/24/24 History release duloxetine 60 mg capsule,delayed 60 mg PO DAILY 02/24/24 03/09/24 02/24/24 History release gabapentin 300 mg capsule 300 mg PO DAILY 02/24/24 03/09/24 02/24/24 History gabapentin 300 mg capsule 600 mg PO BEDTIME 02/24/24 03/09/24 02/23/24 History lamotrigine 150 mg tablet 300 mg PO BEDTIME 02/24/24 03/09/24 02/23/24 History Exam Height,Weight and Vital Signs: Height 5 ft 7 in Weight 117.3 kg Last Vital Signs Temp 97.3 F 03/10/24 08:00 Pulse 103 H 03/10/24 08:00 Resp 14 03/10/24 08:00 BP 146/91 H 03/10/24 08:00 Pulse Ox 99 03/10/24 08:00 O2 Del Method Room Air 03/10/24 08:00 Pertinent Lab Results Pertinent Lab Results: iLaboratory Tests 03/09/24 03/09/24 03/10/24 16:10 20:14 06:07 WBC 5.9 RBC 3.64 L Hgb 10.3 L Hct 31.4 L MCV 86.3 MCH 28.3 MCHC 32.8 RDW 16.9 H Plt Count 354 D MPV 9.8 Immature Gran % (Auto) 0.5 H Neut % (Auto) 59.9 Lymph % (Auto) 27.6 [place] % (Auto) 8.1 Eos % (Auto) 3.4 Baso % (Auto) 0.5 Lymph # (Auto) 1.6 [place] # (Auto) 0.5 Eos # (Auto) 0.2 Baso # (Auto) 0.0 Abs Immat Gran (auto) 0.03 Absolute Neuts (auto) 3.5 Absolute Nucleated RBC 0.000 Nucleated RBC % (auto) 0.0 Sodium 142 Potassium 3.5 D Chloride 107 Carbon Dioxide 25 Anion Gap 14 BUN 11 Creatinine 0.67 Estim Creat Clear Calc 100.5 Estimated GFR > 60 POC Glucose 85 124 H Fasting Glucose 78 Estimat Average Glucose 108 Hemoglobin A1c % 5.4 Calcium 9.1 03/10/24 03/10/24 07:17 11:00 WBC RBC Hgb Hct MCV MCH MCHC RDW Plt Count MPV Immature Gran % (Auto) Neut % (Auto) Lymph % (Auto) [place] % (Auto) Eos % (Auto) Baso % (Auto) Lymph # (Auto) [place] # (Auto) Eos # (Auto) Baso # (Auto) Abs Immat Gran (auto) Absolute Neuts (auto) Absolute Nucleated RBC Nucleated RBC % (auto) Sodium Potassium Chloride Carbon Dioxide Anion Gap BUN Creatinine Estim Creat Clear Calc Estimated GFR POC Glucose 76 78 Fasting Glucose Estimat Average Glucose Hemoglobin A1c % Calcium Airway Mallampati Class: III TM Dist: >3cm Neck ROM: Full Assessment and Plan Assessment Anesthesia Assessment: Anesthesia Plan Discussed and Chart Reviewed Final Anesthetic Review Family History of Problems with Anesthesia: No History of Problems with Anesthesia: No NPO: Yes ASA Class: III Final Preanesthetic Review: No Changes in Pt Med Stat, Meds/Allgs Chart Reviewed, Consent Obtained/Reviewed and Anes Risks/Benef Reviewed Patient Risk: Intermediate Procedure Risk: Intermediate Anesthetic Plan Anesthetic Plan: GA Disposition: Standard PACU
[2024-03-10 14:06] LABS: Glucose, Whole Blood 76 mg/dL (60-115)
[2024-03-10] MEDS: Dextrose 5 % 1,000 ML 100 ML IVCONT (14:17)
[2024-03-10] MEDS: Lactated Ringers 500 ML 20 ML IVCONT (14:34)
--- NOTE | 2024-03-10 15:50 | PM.OP ---
Brief Operative Note Date of Service: 03/10/24 Pre-op diagnosis: Right ankle fracture/dislocation Post-op diagnosis: same Procedure: Right ankle external fiaxation Implants: Temporary external fixation pin in calcaneus and one in anterior right tibia Surgeon: Santiago Paulino MD Anesthesia: GETA Was an Radiology Practitioner Assistant used for this Procedure?: No Estimated blood loss (mL): 20 IV fluids (mL): 650 Pathology: none sent Condition: stable Disposition: PACU
--- NOTE | 2024-03-10 15:55 | HO.WOUND ---
Attempted to assess patients Left foot but patient was off unit in the OR at the time of my arrival to the unit. Will attempt assessment and consultation at future date and or time.
[2024-03-10] MEDS: fentaNYL citrate/PF 100 MCG/2 ML VIAL 50 MCG IVPUSH ×3 (16:10→16:20)
[2024-03-10] MEDS: ondansetron HCL 4 MG/2 ML VIAL IVPUSH (16:16)
[2024-03-10 17:12] LABS: Glucose, Whole Blood 94 mg/dL (60-115)
[2024-03-10] MEDS: ceFAZolin Sodium/Dextrose,Iso 2 GM/50 ML PIGGYBACK IV (19:56)
[2024-03-10] MEDS: Gabapentin 300 MG CAPSULE 600 MG PO (21:13)
[2024-03-10] MEDS: lamoTRIgine 100 MG TABLET 300 MG PO (21:13)
[2024-03-10] MEDS: Acetaminophen 325 MG TABLET 650 MG PO (21:17)
[2024-03-10] MEDS: Nystatin Powder 15 GM BOTTLE 1 APPL TOPICAL (21:24)
[2024-03-10 21:28] LABS: Glucose, Whole Blood 93 mg/dL (60-115)
[2024-03-11] VITALS (15 sets, daily range): BP systolic 110–144; BP diastolic 64–92; PULSE 74–97; RESP 14–20; TEMP 36.1–36.9; O2SAT 95–100
[2024-03-11] MEDS: Lactated Ringers 1,000 ML 100 ML IVCONT ×2 (00:17→10:25)
[2024-03-11] MEDS: Omeprazole 40 MG CAPSULE.DR PO (05:47)
[2024-03-11] MEDS: Acetaminophen 325 MG TABLET 650 MG PO (06:07)
[2024-03-11 07:50] LABS: Anion Gap 16 (12-20); Blood Urea Nitrogen 5 mg/dL (9-16); Calcium 9.5 mg/dL (8.4-10.2); Carbon Dioxide 26 mmol/L (22-29); Chloride 106 mmol/L (96-108); Creatinine Clr Calc Pharmacy 103.5; Estimated Glomerular Filt Rate > 60; Glucose Fasting 89 mg/dL (60-99); Hematocrit 33.5 % (37.0-47.0); Hemoglobin 10.7 g/dl (12.0-16.0); Mean Corpuscular HGB Conc 31.9 g/dl (31.0-35.0); Mean Corpuscular Hemoglobin 28.2 pg (27.0-33.0); Mean Corpuscular Volume 88.4 fL (80.0-98.0); Mean Platelet Volume 11.5 fL (9.4-12.3); Platelet Count 282 X10*3/uL (160-400); Potassium 4.1 mmol/L (3.3-5.1); Red Blood Count 3.79 X10*6/uL (4.20-5.50); Red Cell Distribution Width 16.9 % (11.0-16.0); Sodium 144 mmol/L (135-145); White Blood Count 5.9 X10*3/uL (4.8-10.8)
[2024-03-11 07:53] LABS: Glucose, Whole Blood 89 mg/dL (60-115)
--- NOTE | 2024-03-11 08:18 | HO.POSTANES ---
Post Anesthesia Evaluation Post Anesthesia Evaluation Date of Service: 03/11/24 Vital Signs: Vital Signs Temp Pulse Resp BP Pulse Ox O2 Del Method 03/11/24 03:32 96.9 F 79 18 129/69 97 Room Air 03/10/24 21:29 98.2 F 101 H 18 154/101 H 95 Room Air 03/10/24 21:12 101 H 154/101 H Anesthesia: General Mental Status: Awake Pain Control: Satisfactory Nausea/Vomiting: None Hydration: Adequate Anesthesia-Related Issues: No Anes. Related Issues
--- NOTE | 2024-03-11 09:06 | PM.PNORT ---
Subjective Subjective Date of Service: 03/11/24 Interval history: POD 1 s/p Rt ankle ex fix 02/24/24 overnight-she became confused and attempted to get out of bed security called to redirect the patient otherwise, doing well-denies pain due to chronic neuropathy Physical Exam Vital Signs: Vital Signs: Last Vital Signs Temp 97.6 F 03/11/24 08:00 Pulse 88 03/11/24 08:00 Resp 16 03/11/24 08:00 BP 139/90 H 03/11/24 08:00 Pulse Ox 95 03/11/24 08:00 O2 Del Method Room Air 03/11/24 08:00 O2 Flow Rate 2 03/10/24 16:53 BMI result Body Mass Index 40.5 Extrem: Other: Right ankle ex fix intact, there appears to be a new deformity along the medial mal-concerns for displacement. No open fracture Procedures Date of Service Date of Service: 03/11/24 Progress Note: A&P Assessment and plan (1) Trimalleolar fracture of right ankle: Status: Acute Assessment and Plan: NPO -pending surgery to re-stabilize ankle NWB Elevate Time Spent With Patient Time: Total time managing care of this patient today ____ minutes. Quality Stroke Does the patient have a stroke diagnosis?: No VTE Prior VTE?: No VTE Risk Level:: Medical - moderate - high VTE Device Contraindication: N/A - Device Ordered VTE Drug Contraindication: N/A - Med Ordered
[2024-03-11] MEDS: Metoprolol Tartrate 50 MG TABLET PO ×2 (09:36→21:11)
[2024-03-11] MEDS: Atorvastatin Calcium 40 MG TABLET PO (09:36)
[2024-03-11] MEDS: Cholecalciferol (Vitamin D3) 25 MCG TABLET PO (09:36)
[2024-03-11] MEDS: Gabapentin 300 MG CAPSULE PO (09:36)
[2024-03-11] MEDS: DULoxetine HCl 30 MG CAPSULE.DR PO (09:36)
[2024-03-11] MEDS: Cyanocobalamin (Vitamin B-12) 1,000 MCG TABLET 1000 MCG PO (09:36)
[2024-03-11] MEDS: DULoxetine HCl 60 MG CAPSULE.DR PO (09:36)
[2024-03-11] MEDS: Ascorbic Acid 500 MG TABLET PO (09:36)
[2024-03-11] MEDS: Nystatin Powder 15 GM BOTTLE 1 APPL TOPICAL ×2 (09:41→22:39)
[2024-03-11 11:34] LABS: Glucose, Whole Blood 94 mg/dL (60-115)
[2024-03-11] MEDS: Dextrose 5 % and Lactated Ring 1,000 ML 100 ML IVCONT (11:39)
[2024-03-11 13:55] LABS: Glucose, Whole Blood 81 mg/dL (60-115)
--- NOTE | 2024-03-11 13:55 | HO.ANESPROP2 ---
[facility] Active Problems Active Problems: All Active Problems (Updated 03/10/24 @ 13:39 by Jessica Reilly RN) Persistent atrial fibrillation (Acute) Preoperative cardiovascular examination (Acute) MG (dyspnea on exertion) (Acute) Trimalleolar fracture of right ankle (Acute) Suicide attempt (Acute) SELMA treated with BiPAP (Acute) Diabetic ulcer of right foot (Acute) Atrial fibrillation (Acute) Borderline personality disorder (Acute) Major depressive disorder (Acute) Diabetes mellitus (Acute) Past Medical History Medical History (Updated 03/10/24 @ 13:39 by Jessica Reilly RN) Elevated cholesterol Anxiety SELMA treated with BiPAP Diabetic ulcer of right foot Atrial fibrillation Borderline personality disorder Major depressive disorder Diabetes mellitus Chronic anticoagulation Family History Family history of problems with anesthesia: No Surgical History Surgical History (Updated 03/10/24 @ 13:40 by Jessica Reilly RN) Hx of esophagogastroduodenoscopy Hx of colonoscopy History of carpal tunnel release of both wrists Hx of bilateral cataract extraction Hx of bilateral breast reduction surgery Hx of hysterectomy History of Problems with Anesthesia: No Social History Social History Household Members: None Housing: [facility] Housing Other:: [place] independent living Do you presently have visiting nurse or other home services: Yes Unable to assess alcohol history related to: Unable to respond Patient Tobacco Use Status: Former Tobacco user Quit Date: 50 yrs ago Use of substances other than those prescribed or required for medical reasons: No Currently Displaying Signs/Symptoms of Drug Intoxication Withdrawal: No Any prior treatment program specific to substance use: No Have you been hit, kicked, punched, or otherwise hurt by someone within the past year? If so, by whom?: No Do you feel safe in your current relationship?: No Current Relationship Is there a partner from a previous relationship who is making you feel unsafe now?: No Are you made to feel afraid or neglected: No Advance Directives: No Advance Directives Information Provided: No (Not seen) Do you have a plan to hurt others: No Plan Recently lost weight without trying: No How much weight loss: Not applicable Eating poorly because of decreased appetite: No Nutrition screen score: 0 Nutrition Risks: No Nutritional Risk Patient : No service: No Meds Allergies Allergy/AdvReac Type Severity Reaction Status Date / Time mirabegron [From Myrbetriq] Allergy Hallucinati Verified 03/09/24 13:21 ons Active Medications: Current Medications Acetaminophen (Acetaminophen 325 Mg Tablet) 650 mg PO Q6H PRN PRN Reason: Pain, Mild (Pain Scale 1-3) Last Admin: 03/11/24 06:07 Dose: 650 mg Ascorbic Acid (Ascorbic Acid 500 Mg Tablet) 500 mg PO DAILY [facility] Last Admin: 03/11/24 09:36 Dose: 500 mg Atorvastatin Calcium (Atorvastatin Calcium 40 Mg Tablet) 40 mg PO DAILY [facility] Last Admin: 03/11/24 09:36 Dose: 40 mg Cyanocobalamin (Cyanocobalamin (Vitamin B-12) 1,000 Mcg Tablet) 1,000 mcg PO DAILY [facility] Last Admin: 03/11/24 09:36 Dose: 1,000 mcg Duloxetine HCl (Duloxetine Hcl 30 Mg Capsule.) 30 mg PO DAILY [facility] Last Admin: 03/11/24 09:36 Dose: 30 mg Duloxetine HCl (Duloxetine Hcl 60 Mg Capsule.) 60 mg PO DAILY [facility] Last Admin: 03/11/24 09:36 Dose: 60 mg Gabapentin (Gabapentin 300 Mg Capsule) 300 mg PO DAILY [facility] Last Admin: 03/11/24 09:36 Dose: 300 mg Gabapentin (Gabapentin 300 Mg Capsule) 600 mg PO BEDTIME [facility] Last Admin: 03/10/24 21:13 Dose: 600 mg Glucose (Glucose Gel 15 Gm Gel..Gram.) 15 gm PO Q15M PRN; Protocol PRN Reason: per Hypoglycemia Standing Ord. Dextrose (D10) 250 mls @ 750 mls/hr IV Q15M PRN; Protocol PRN Reason: per Hypoglycemia Standing Ord. Dextrose/Lactated Ringer's (D5lr) 1,000 mls @ 100 mls/hr IVCONT .Q10H [facility] Last Admin: 03/11/24 11:39 Dose: 100 mls/hr Insulin Human Lispro (Insulin Lispro 100 Unit/Ml 3 Ml Vial) 0 unit SUBCUT QIDACHS [facility]; Protocol Last Admin: 03/11/24 10:59 Dose: Not Given Lamotrigine (Lamotrigine 100 Mg Tablet) 300 mg PO BEDTIME [facility] Last Admin: 03/10/24 21:13 Dose: 300 mg Metoprolol Tartrate (Metoprolol Tartrate 50 Mg Tablet) 50 mg PO BID [facility]; Protocol Last Admin: 03/11/24 09:36 Dose: 50 mg Nystatin (Nystatin Powder 15 Gm Bottle) 1 appl TOPICAL TID [facility]; Protocol Last Admin: 03/11/24 13:54 Dose: Not Given Omeprazole (Omeprazole 40 Mg Capsule.) 40 mg PO DAILY@0630 [facility] Last Admin: 03/11/24 05:47 Dose: 40 mg Oxycodone HCl (Oxycodone Hcl Immed Release 5 Mg Tablet) 5 mg PO Q4H PRN PRN Reason: Pain, Moderate(Pain Scale 4-6) Sodium Chloride (0.9 % Sodium Chloride Flush 3 Ml Syringe) 3 ml IVFLUSH QSHIFT [facility] Last Admin: 03/11/24 09:36 Dose: Not Given Vitamin D (Cholecalciferol (Vitamin D3) 25 Mcg Tablet) 25 mcg PO DAILY [facility] Last Admin: 03/11/24 09:36 Dose: 25 mcg Home Medications ?Medication ?Instructions ?Recorded ?Confirmed ?Last Taken ?Type ascorbic acid (vitamin C) 500 mg 500 mg PO DAILY 02/24/24 03/09/24 02/24/24 History tablet cholecalciferol (vitamin D3) 25 25 mcg PO DAILY 02/24/24 03/09/24 02/24/24 History mcg (1,000 unit) tablet cyanocobalamin (vitamin B-12) 1,000 mcg PO DAILY 02/24/24 03/09/24 02/24/24 History 1,000 mcg tablet duloxetine 30 mg capsule,delayed 30 mg PO DAILY 02/24/24 03/09/24 02/24/24 History release duloxetine 60 mg capsule,delayed 60 mg PO DAILY 02/24/24 03/09/24 02/24/24 History release gabapentin 300 mg capsule 300 mg PO DAILY 02/24/24 03/09/24 02/24/24 History gabapentin 300 mg capsule 600 mg PO BEDTIME 02/24/24 03/09/24 02/23/24 History lamotrigine 150 mg tablet 300 mg PO BEDTIME 02/24/24 03/09/24 02/23/24 History Exam Height,Weight and Vital Signs: Height 5 ft 7 in Weight 117.3 kg Last Vital Signs Temp 98.5 F 03/11/24 13:44 Pulse 83 03/11/24 13:44 Resp 18 03/11/24 13:44 BP 144/91 H 05/02/24 13:44 Pulse Ox 96 03/11/24 13:44 O2 Del Method Room Air 03/11/24 13:44 O2 Flow Rate 2 03/10/24 16:53 Pertinent Lab Results Pertinent Lab Results: Laboratory Tests 03/09/24 03/09/24 03/10/24 16:10 20:14 06:07 WBC 5.9 RBC 3.64 L Hgb 10.3 L Hct 31.4 L MCV 86.3 MCH 28.3 MCHC 32.8 RDW 16.9 H Plt Count 354 D MPV 9.8 Immature Gran % (Auto) 0.5 H Neut % (Auto) 59.9 Lymph % (Auto) 27.6 [place] % (Auto) 8.1 Eos % (Auto) 3.4 Baso % (Auto) 0.5 Lymph # (Auto) 1.6 [place] # (Auto) 0.5 Eos # (Auto) 0.2 Baso # (Auto) 0.0 Abs Immat Gran (auto) 0.03 Absolute Neuts (auto) 3.5 Absolute Nucleated RBC 0.000 Nucleated RBC % (auto) 0.0 Hold Purple Top Sodium 142 Potassium 3.5 D Chloride 107 Carbon Dioxide 25 Anion Gap 14 BUN 11 Creatinine 0.67 Estim Creat Clear Calc 100.5 Estimated GFR > 60 POC Glucose 85 124 H Fasting Glucose 78 Estimat Average Glucose 108 Hemoglobin A1c % 5.4 Calcium 9.1 03/10/24 03/10/24 03/10/24 07:17 11:00 14:02 WBC RBC Hgb Hct MCV MCH MCHC RDW Plt Count MPV Immature Gran % (Auto) Neut % (Auto) Lymph % (Auto) [place] % (Auto) Eos % (Auto) Baso % (Auto) Lymph # (Auto) [place] # (Auto) Eos # (Auto) Baso # (Auto) Abs Immat Gran (auto) Absolute Neuts (auto) Absolute Nucleated RBC Nucleated RBC % (auto) Hold Purple Top Sodium Potassium Chloride Carbon Dioxide Anion Gap BUN Creatinine Estim Creat Clear Calc Estimated GFR POC Glucose 76 78 76 Fasting Glucose Estimat Average Glucose Hemoglobin A1c % Calcium 03/10/24 03/10/24 03/11/24 17:09 21:16 06:19 WBC 5.9 RBC 3.79 L Hgb 10.7 L Hct 33.5 L MCV 88.4 MCH 28.2 MCHC 31.9 RDW 16.9 H Plt Count 282 MPV 11.5 Immature Gran % (Auto) Neut % (Auto) Lymph % (Auto) [place] % (Auto) Eos % (Auto) Baso % (Auto) Lymph # (Auto) [place] # (Auto) Eos # (Auto) Baso # (Auto) Abs Immat Gran (auto) Absolute Neuts (auto) Absolute Nucleated RBC 0.000 Nucleated RBC % (auto) 0.0 Hold Purple Top SEE NOTE Sodium 144 Potassium 4.1 Chloride 106 Carbon Dioxide 26 Anion Gap 16 BUN 5 L Creatinine 0.65 Estim Creat Clear Calc 103.5 Estimated GFR > 60 POC Glucose 94 93 Fasting Glucose 89 Estimat Average Glucose Hemoglobin A1c % Calcium 9.5 03/11/24 03/11/24 07:47 11:26 WBC RBC Hgb Hct MCV MCH MCHC RDW Plt Count MPV Immature Gran % (Auto) Neut % (Auto) Lymph % (Auto) [place] % (Auto) Eos % (Auto) Baso % (Auto) Lymph # (Auto) [place] # (Auto) Eos # (Auto) Baso # (Auto) Abs Immat Gran (auto) Absolute Neuts (auto) Absolute Nucleated RBC Nucleated RBC % (auto) Hold Purple Top Sodium Potassium Chloride Carbon Dioxide Anion Gap BUN Creatinine Estim Creat Clear Calc Estimated GFR POC Glucose 89 94 Fasting Glucose Estimat Average Glucose Hemoglobin A1c % Calcium Airway Mallampati Class: III TM Dist: >3cm Neck ROM: Full Assessment and Plan Assessment Anesthesia Assessment: Anesthesia Plan Discussed and Chart Reviewed Final Anesthetic Review Family History of Problems with Anesthesia: No History of Problems with Anesthesia: No NPO: Yes ASA Class: III and Emergency Final Preanesthetic Review: No Changes in Pt Med Stat, Meds/Allgs Chart Reviewed, Consent Obtained/Reviewed and Anes Risks/Benef Reviewed Patient Risk: Intermediate Procedure Risk: Intermediate Anesthetic Plan Anesthetic Plan: GA Disposition: Standard PACU
--- NOTE | 2024-03-11 14:04 | MHC.CM.PN ---
Pt required additional surgical intervention today. DBV has been sent a clinical update. Asked if the plan to offer a bed at discharge. Patient is not a bedhold. CM will follow for DC.
--- NOTE | 2024-03-11 14:19 | MHC.SHP ---
Pre-Procedural Eval Section A - 24 Hr Update-Section A only Date of Service: 03/11/24 The patient is an INPATIENT: Yes Changes since office visit: No Cold of Flu in the past 2 weeks, No New Medical Problems, No Changes in Medication and No Patient answered all questions The patient has been examined within 24 hours of the surgical procedure. The History & Physical has been completed within 30 days and I have reviewed it.: Yes Section B - Complete if H&P > 30 days Chief Complaint: R ankle fx Allergies: Allergies Allergy/AdvReac Type Severity Reaction Status Date / Time mirabegron [From Myrbetriq] Allergy Hallucinati Verified 03/09/24 13:21 ons Plan I have reviewed the history and physical and performed a pertinent physical examination on my patient. No changes have occurred unless specified. Time Spent With Patient Time: Total time managing care of this patient today ____ minutes.
--- NOTE | 2024-03-11 15:55 | P.BOP_ITS ---
Brief Operative Note Date of Service: 03/11/24 Pre-op diagnosis: Unstable right ankle Neuropathic ankle Post-op diagnosis: same Procedure: External fixation right ankle Implants: [place] 3 external fixation pins x 5 Surgeon: Santiago Paulino MD Anesthesia: GETA Was an Primary School Teacher Librarian used for this Procedure?: Yes Primary School Teacher Librarian: Marie Senior Estimated blood loss (mL): 20 IV fluids (mL): 500 Pathology: none sent Condition: stable Disposition: PACU
[2024-03-11 16:26] LABS: Glucose, Whole Blood 88 mg/dL (60-115)
--- NOTE | 2024-03-11 17:18 | HO.PM.IMPN ---
Subjective Subjective Date of Service: 03/11/24 Interval History: seen and examined this morning Follow-up medical consultation for displaced trimalleolar fracture pt sleepy but easily arousable to verbal stimuli Reporting pain right leg otherwise no specific complaints reportedly tried to get out of bed overnight and now with ankle subluxation. Plan to return to OR today per ortho Review of Systems Review of Systems: Yes all other systems are reviewed and are negative Constitutional Constitutional: Denies fever(s) Cardiovascular Cardiovascular: Denies chest pain Gastrointestinal Gastrointestinal: Denies abdominal pain Physical Exam Vital Signs: Vital Signs: Last Vital Signs Temp 97.2 F 03/11/24 17:14 Pulse 76 03/11/24 17:14 Resp 18 03/11/24 17:14 BP 142/92 H 03/11/24 17:14 Pulse Ox 98 03/11/24 17:14 O2 Del Method Nasal Cannula 03/11/24 17:14 O2 Flow Rate 3 03/11/24 17:14 FiO2 98 03/11/24 17:14 BMI result Body Mass Index 40.5 Const: General: no acute distress, alert and awake Nutritional Appearance: obese Orientation/consciousness: oriented to person and oriented to place Resp: Effort & Inspection: normal respiratory effort, able to speak in complete sentences, no respiratory distress and no use of accessory muscles Cardio: Rate: regular rate GI: Inspection: No distended Palpation (GI): Soft to palpation Neuro: Other: grossly nonfocal General: oriented to person and oriented to place Extrem: Other: right leg with external fixation Objective Data Active Medications Acetaminophen (Acetaminophen 325 Mg Tablet) 650 mg PO Q6H PRN PRN Reason: Pain, Mild (Pain Scale 1-3) Last Admin: 03/11/24 06:07 Dose: 650 mg Documented By: IHSAN Ascorbic Acid (Ascorbic Acid 500 Mg Tablet) 500 mg PO DAILY [facility] Last Admin: 03/11/24 09:36 Dose: 500 mg Documented By: JOSE ANTONIO Atorvastatin Calcium (Atorvastatin Calcium 40 Mg Tablet) 40 mg PO DAILY [facility] Last Admin: 03/11/24 09:36 Dose: 40 mg Documented By: JOSE ANTONIO Cyanocobalamin (Cyanocobalamin (Vitamin B-12) 1,000 Mcg Tablet) 1,000 mcg PO DAILY [facility] Last Admin: 03/11/24 09:36 Dose: 1,000 mcg Documented By: JOSE ANTONIO Duloxetine HCl (Duloxetine Hcl 30 Mg Capsule.) 30 mg PO DAILY [facility] Last Admin: 03/11/24 09:36 Dose: 30 mg Documented By: JOSE ANTONIO Duloxetine HCl (Duloxetine Hcl 60 Mg Capsule.) 60 mg PO DAILY [facility] Last Admin: 03/11/24 09:36 Dose: 60 mg Documented By: JOSE ANTONIO Gabapentin (Gabapentin 300 Mg Capsule) 300 mg PO DAILY [facility] Last Admin: 03/11/24 09:36 Dose: 300 mg Documented By: JOSE ANTONIO Gabapentin (Gabapentin 300 Mg Capsule) 600 mg PO BEDTIME [facility] Last Admin: 03/10/24 21:13 Dose: 600 mg Documented By: IHSAN Glucose (Glucose Gel 15 Gm Gel..Gram.) 15 gm PO Q15M PRN; Protocol PRN Reason: per Hypoglycemia Standing Ord. Dextrose (D10) 250 mls @ 750 mls/hr IV Q15M PRN; Protocol PRN Reason: per Hypoglycemia Standing Ord. Dextrose/Lactated Ringer's (D5lr) 1,000 mls @ 100 mls/hr IVCONT .Q10H [facility] Last Admin: 03/11/24 11:39 Dose: 100 mls/hr Documented By: JOSE ANTONIO Cefazolin Sodium/Dextrose (Ancef) 2 gm in 50 mls @ 100 mls/hr IV POSTOP [facility] Insulin Human Lispro (Insulin Lispro 100 Unit/Ml 3 Ml Vial) 0 unit SUBCUT QIDACHS [facility]; Protocol Last Admin: 03/11/24 16:27 Dose: Not Given Documented By: MACKENZIE Non-Admin Reason: No Insulin Coverage Lamotrigine (Lamotrigine 100 Mg Tablet) 300 mg PO BEDTIME [facility] Last Admin: 03/10/24 21:13 Dose: 300 mg Documented By: IHSAN Metoprolol Tartrate (Metoprolol Tartrate 50 Mg Tablet) 50 mg PO BID [facility]; Protocol Last Admin: 03/11/24 09:36 Dose: 50 mg Documented By: JOSE ANTONIO Nystatin (Nystatin Powder 15 Gm Bottle) 1 appl TOPICAL TID [facility]; Protocol Last Admin: 03/11/24 13:54 Dose: Not Given Documented By: JOSE ANTONIO Non-Admin Reason: Off Unit: Surgery Omeprazole (Omeprazole 40 Mg Capsule.) 40 mg PO DAILY@0630 [facility] Last Admin: 03/11/24 05:47 Dose: 40 mg Documented By: ODRISLalita Oxycodone HCl (Oxycodone Hcl Immed Release 5 Mg Tablet) 5 mg PO Q4H PRN PRN Reason: Pain, Moderate(Pain Scale 4-6) Sodium Chloride (0.9 % Sodium Chloride Flush 3 Ml Syringe) 3 ml IVFLUSH QSHIFT [facility] Last Admin: 03/11/24 15:31 Dose: Not Given Documented By: MACKENZIE Non-Admin Reason: Off Unit: Surgery Vitamin D (Cholecalciferol (Vitamin D3) 25 Mcg Tablet) 25 mcg PO DAILY [facility] Last Admin: 03/11/24 09:36 Dose: 25 mcg Documented By: JOSE ANTONIO Labs 03/11/24 06:19 03/11/24 06:19 Labs: Laboratory Results - last 24 hr 03/10/24 03/11/24 03/11/24 21:16 06:19 07:47 MCV 88.4 MCH 28.2 MCHC 31.9 RDW 16.9 H Plt Count 282 MPV 11.5 Absolute Nucleated RBC 0.000 Nucleated RBC % (auto) 0.0 Hold Purple Top SEE NOTE Anion Gap 16 Estim Creat Clear Calc 103.5 Estimated GFR > 60 POC Glucose 93 89 Fasting Glucose 89 Calcium 9.5 03/11/24 03/11/24 03/11/24 11:26 13:47 16:23 MCV MCH MCHC RDW Plt Count MPV Absolute Nucleated RBC Nucleated RBC % (auto) Hold Purple Top Anion Gap Estim Creat Clear Calc Estimated GFR POC Glucose 94 81 88 Fasting Glucose Calcium Assessment and Plan (1) Persistent atrial fibrillation: Status: Acute Plan 73 year old female with history of paroxysmal atrial fibrillation anticoagulated with Eliquis last taken this morning, mood disorder, GERD, [id number] type 2 diabetes admitted to orthopedic surgery for management of displaced trimalleolar fracture of the right ankle with consult placed to hospitalist service for medical management. # displaced trimalleolar fracture -plan per orthopedic surgery s/p right ankle external fixation 03/10 attempted to ambulate overnight and repeat surgery necessary today -resume eliquis post operatively per orthopedic surgery -see cardiology consult # dyspnea on exertion -significant history of SELMA on BiPAP with dyspnea on exertion with just a few steps -Echo from [facility] shows normal LV systolic function EF 55%, echo this morning unchanged -?r/t persistent atrial fibrillation -ok to proceed with surgery per cardiology -Outpt follow up with cardiology # persistent atrial fibrillation-rate controlled -Continue holding eliquis. Resume per orthopedic surgery -continue metoprolol -outpt follow up with cardiology #Mood disorder -continue home meds #GERD -ppi # [id number] type 2 diabetes -poc glucose, diabetic diet -admelog on ssi. hold metformin Thank you for this consult, will follow for now Quality Stroke Does the patient have a stroke diagnosis?: No VTE Prior VTE?: No VTE Risk Level:: Medical - moderate - high VTE Device Contraindication: N/A - Device Ordered VTE Drug Contraindication: N/A - Med Ordered
[2024-03-11 20:38] LABS: Glucose, Whole Blood 150 mg/dL (60-115)
[2024-03-11] MEDS: lamoTRIgine 100 MG TABLET 300 MG PO (21:11)
[2024-03-11] MEDS: Gabapentin 300 MG CAPSULE 600 MG PO (21:11)
[2024-03-11] MEDS: 0.9 % Sodium Chloride Flush 3 ML SYRINGE IVFLUSH (21:12)
[2024-03-12] VITALS (7 sets, daily range): BP systolic 122–160; BP diastolic 70–88; PULSE 78–89; RESP 16–18; TEMP 36.3–37.1; O2SAT 94–98
[2024-03-12] MEDS: Omeprazole 40 MG CAPSULE.DR PO (05:35)
[2024-03-12 06:04] LABS: Anion Gap 14 (12-20); Blood Urea Nitrogen 8 mg/dL (9-16); Carbon Dioxide 27 mmol/L (22-29); Chloride 105 mmol/L (96-108); Creatinine Clr Calc Pharmacy 100.5; Estimated Glomerular Filt Rate > 60; Glucose Fasting 104 mg/dL (60-99); Potassium 3.8 mmol/L (3.3-5.1); Sodium 142 mmol/L (135-145)
[2024-03-12 07:26] LABS: Glucose, Whole Blood 79 mg/dL (60-115)
--- NOTE | 2024-03-12 07:45 | PM.PNORT ---
Subjective Subjective Date of Service: 03/12/24 Interval history: POD1 external fixator and pins Patient is resting in bed comfortably No overnight events Reports no pain Physical Exam Vital Signs: Vital Signs: Last Vital Signs Temp 97.8 F 03/12/24 07:12 Pulse 84 03/12/24 07:12 Resp 18 03/12/24 07:12 BP 160/83 H 03/12/24 07:12 Pulse Ox 96 03/12/24 07:12 O2 Del Method Room Air 03/12/24 07:12 O2 Flow Rate 3 03/11/24 19:26 FiO2 98 03/11/24 17:14 BMI result Body Mass Index 40.5 Extrem: Other: Right ankle ex fix intact. No open fracture. Able to move all digits. Pedal pulse intact. Procedures Date of Service Date of Service: 03/12/24 Progress Note: A&P Assessment and plan (1) Trimalleolar fracture of right ankle: Status: Acute Assessment and Plan: RLE - Strict elevation on three pillows above heart level NWB RLE Pin site care - keep c/d/i Continue to monitor skin condition (2) Diabetic ulcer of right foot: Status: Acute (3) Atrial fibrillation: Status: Acute (4) Diabetes mellitus: Status: Acute Time Spent With Patient Time: Total time managing care of this patient today ____ minutes. Quality Stroke Does the patient have a stroke diagnosis?: No VTE Prior VTE?: No VTE Risk Level:: Medical - moderate - high VTE Device Contraindication: N/A - Device Ordered VTE Drug Contraindication: N/A - Med Ordered
[2024-03-12] MEDS: Gabapentin 300 MG CAPSULE PO (08:06)
[2024-03-12] MEDS: Ascorbic Acid 500 MG TABLET PO (08:06)
[2024-03-12] MEDS: Cholecalciferol (Vitamin D3) 25 MCG TABLET PO (08:06)
[2024-03-12] MEDS: DULoxetine HCl 60 MG CAPSULE.DR PO (08:06)
[2024-03-12] MEDS: Metoprolol Tartrate 50 MG TABLET PO ×2 (08:06→19:44)
[2024-03-12] MEDS: DULoxetine HCl 30 MG CAPSULE.DR PO (08:06)
[2024-03-12] MEDS: Atorvastatin Calcium 40 MG TABLET PO (08:06)
[2024-03-12] MEDS: Cyanocobalamin (Vitamin B-12) 1,000 MCG TABLET 1000 MCG PO (08:06)
[2024-03-12] MEDS: 0.9 % Sodium Chloride Flush 3 ML SYRINGE IVFLUSH ×3 (08:07→19:45)
--- NOTE | 2024-03-12 09:42 | HO.POSTANES ---
Post Anesthesia Evaluation Post Anesthesia Evaluation Date of Service: 03/11/24 Vital Signs: Vital Signs Temp Pulse Resp BP Pulse Ox O2 Del Method 03/12/24 07:12 97.8 F 84 18 160/83 H 96 Room Air 03/12/24 03:23 97.8 F 80 18 124/70 98 BiPAP 03/11/24 23:35 97.0 F 90 20 132/70 95 BiPAP 03/11/24 22:42 20 Anesthesia: General Endotracheal-GETA Mental Status: Awake Pain Control: Satisfactory Nausea/Vomiting: None Hydration: Adequate Anesthesia-Related Issues: No Anes. Related Issues
[2024-03-12 11:18] LABS: Glucose, Whole Blood 96 mg/dL (60-115)
[2024-03-12] MEDS: Acetaminophen 325 MG TABLET 650 MG PO (15:07)
--- NOTE | 2024-03-12 15:29 | W.PM.OPN ---
Operative Note Operative Note Date of Service: 03/10/24 Narrative: Date of Service: 03/10/24 Pre-op diagnosis: Right ankle fracture/dislocation Post-op diagnosis: same Procedure: Right ankle external fiaxation Implants: Temporary external fixation pin in calcaneus and one in anterior right tibia Surgeon: Santiago Paulino MD Anesthesia: GETA Was an Packaging Designer used for this Procedure?: No Estimated blood loss (mL): 20 IV fluids (mL): 650 Pathology: none sent Condition: stable Disposition: PACU Indications: This is a 73-year-old woman with diabetic neuropathy of the bilateral feet who sustained an ankle fracture/dislocation approximately 3 weeks ago. She was reduced in the ED and splinted. Further immobilization was recommended when she was seen in our office. Over the interim she described change in alignment and appearance of her right ankle and presented to our office yesterday with tenting of the medial malleolus and disc placed and dislocated bimalleolar ankle fracture. I was able to reduce this in the office such that the skin was tenting LEs and she was admitted to the hospital. She was consented to undergo closed fixation versus external fixation versus internal fixation. Procedure in detail: Patient was brought the operating room placed supine on the operative table and prepped and draped in standard sterile fashion. A time-out was called to identify proper site proper procedure proper surgery and IV antibiotics per weight were administered. I began by using biplanar fluoroscopy to identify and understand the fracture pattern. Essentially a trimalleolar fracture dislocation. She was subluxing posteriorly with badly displaced talus and markedly asymmetric mortise. I was able to reduce her in the a to P plane but this was unstable and would not stay. I therefore elected to place her in external fixation. Given her neuropathic status and the state of her skin I was hesitant to undergo internal fixation. Therefore using standard AO technique a stab incision was made over the medial aspect of the calcaneal body and a Steinmann pin was placed medial to lateral. A pin was then placed through the middle 3rd of the anterior tibia. Again a edwina incision was made in the skin. Using a [email or web address] external fixation pin to pin to bar constructs were placed from the calcaneal pin to the anterior tibial pin. The ankle was then reduced and the bars were tightened. I was satisfied with the stability and the cut external fixation construct. Biplanar fluoroscopy confirmed a reduced but still displaced fracture. I then irrigated and covered the ex fix pin sites with Xeroform and sterile dressing. Patient was then extubated brought to recovery room in stable condition. There were no known complications.
--- NOTE | 2024-03-12 15:41 | P.OP_ITS ---
Operative Note Operative Note Date of Service: 03/11/24 Narrative: Date of Service: 03/11/24 Pre-op diagnosis: Unstable right ankle Neuropathic ankle Post-op diagnosis: same Procedure: External fixation right ankle Implants: Zavaleta 3 external fixation pins x 5 Surgeon: Santiago Paulino MD Anesthesia: GETA Was an Medical Donation Professional used for this Procedure?: Yes Medical Donation Professional: Marie Senior Estimated blood loss (mL): 20 IV fluids (mL): 500 Pathology: none sent Condition: stable Disposition: PACU Indications: This is a 73-year-old with a neuropathic foot and an unstable bimalleolar ankle fracture with tenting of the medial skin. She underwent external fixation on March 10 and nurses on the morning of March 11 described her trying to walk on her foot and flailing in bed. On exam this morning she had really subluxed her ankle and the skin over the medial distal tibia was again tenting with open fracture imminent and so she was taken back to the operating room to undergo revision and replacement of external fixation. Procedure in detail: Patient was brought to the operating room placed supine on the operative table and prepped and draped in standard sterile fashion. A time- out was called to identify proper site, proper procedure and proper surgeon antibiotics per weight were administered. I began by removing the prior external fixation construct. The calcaneus and tibial pins were left in an additional tibial pin was added and to pins were placed into the dorsum of the 1st metatarsal. Standard AO technique was used with a stab incision and blunt dissection down to bone and then insertion of pins under fluoroscopic guidance. Once I was satisfied with a bicortical nature and position of the pins I created the external fixation construct. While holding the ankle in a reduced position bar to bar frame was created with an additional bar from the medial bar to the metatarsal pins maintaining a dorsiflexed position. This improved the stability of the construct and would hopefully prevent any repeat subluxation given patient neuropathic status and her poor compliance. An additional kickstand was added to elevate her foot off the bed. Biplanar fluoroscopy was used to confirm that the fracture was reduced. That is to say that the talus was under the tibia but the mortise was still poorly aligned. I attempted multiple times to improve this with closed reduction but further improvement was not possible. She had palpable pedal pulse and the medial skin while erythematous and swollen was not tenting. I then irrigated dress the pin sites with Xeroform and sterile gauze. Patient was extubated brought to recovery room in stable condition. There were no known complications.
[2024-03-12 16:09] LABS: Glucose, Whole Blood 118 mg/dL (60-115)
--- NOTE | 2024-03-12 16:32 | MHC.CM.PN ---
NO DC TODAY PER MD ROUNDS. POD #1 R ANKLE. DP RETURN TO [facility] VIA BLS.
--- NOTE | 2024-03-12 16:55 | P.PNIM_ITS ---
Subjective Subjective Date of Service: 03/12/24 Interval History: Seen and examined this morning Follow-up for trimalleolar fracture of the right ankle status post surgery x2 No overnight events Patient awake and alert this morning with no specific complaints Review of Systems Review of Systems: Yes all other systems are reviewed and are negative Constitutional Constitutional: Denies chills and Denies fever(s) Cardiovascular Cardiovascular: Denies chest pain and Denies dyspnea Respiratory Respiratory: Denies dyspnea Gastrointestinal Gastrointestinal: Denies abdominal pain Physical Exam 2 Vital Signs: Vital Signs: Last Vital Signs Temp 98.8 F 03/12/24 15:30 Pulse 86 03/12/24 15:30 Resp 18 03/12/24 15:30 BP 135/88 03/12/24 15:30 Pulse Ox 94 03/12/24 15:30 O2 Del Method Room Air 03/12/24 15:30 O2 Flow Rate 3 03/11/24 19:26 FiO2 98 03/11/24 17:14 BMI result Body Mass Index 40.5 Const: General: no acute distress, alert and awake Nutritional Appearance: obese Orientation/consciousness: oriented to person and oriented to place Resp: Effort & Inspection: normal respiratory effort, able to speak in complete sentences, no respiratory distress and no use of accessory muscles Cardio: Rate: regular rate GI: Inspection: No distended Palpation (GI): Soft to palpation Neuro: Other: grossly nonfocal General: oriented to person and oriented to place Extrem: Other: right leg with external fixation in place Objective Data Active Medications Acetaminophen (Acetaminophen 325 Mg Tablet) 650 mg PO Q6H PRN PRN Reason: Pain, Mild (Pain Scale 1-3) Last Admin: 03/12/24 15:07 Dose: 650 mg Documented By: ELIEZER Ascorbic Acid (Ascorbic Acid 500 Mg Tablet) 500 mg PO DAILY [facility] Last Admin: 03/12/24 08:06 Dose: 500 mg Documented By: NATHAN Atorvastatin Calcium (Atorvastatin Calcium 40 Mg Tablet) 40 mg PO DAILY [facility] Last Admin: 03/12/24 08:06 Dose: 40 mg Documented By: NATHAN Cyanocobalamin (Cyanocobalamin (Vitamin B-12) 1,000 Mcg Tablet) 1,000 mcg PO DAILY [facility] Last Admin: 03/12/24 08:06 Dose: 1,000 mcg Documented By: NATHAN Duloxetine HCl (Duloxetine Hcl 30 Mg Capsule.) 30 mg PO DAILY [facility] Last Admin: 03/12/24 08:06 Dose: 30 mg Documented By: NATHAN Duloxetine HCl (Duloxetine Hcl 60 Mg Capsule.) 60 mg PO DAILY [facility] Last Admin: 03/12/24 08:06 Dose: 60 mg Documented By: NATHAN Gabapentin (Gabapentin 300 Mg Capsule) 300 mg PO DAILY [facility] Last Admin: 03/12/24 08:06 Dose: 300 mg Documented By: NATHAN Gabapentin (Gabapentin 300 Mg Capsule) 600 mg PO BEDTIME [facility] Last Admin: 03/11/24 21:11 Dose: 600 mg Documented By: DANNY Glucose (Glucose Gel 15 Gm Gel..Gram.) 15 gm PO Q15M PRN; Protocol PRN Reason: per Hypoglycemia Standing Ord. Dextrose (D10) 250 mls @ 750 mls/hr IV Q15M PRN; Protocol PRN Reason: per Hypoglycemia Standing Ord. Cefazolin Sodium/Dextrose (Ancef) 2 gm in 50 mls @ 100 mls/hr IV POSTOP [facility] Insulin Human Lispro (Insulin Lispro 100 Unit/Ml 3 Ml Vial) 0 unit SUBCUT QIDACHS [facility]; Protocol Last Admin: 03/12/24 16:52 Dose: Not Given Documented By: ELIEZER Non-Admin Reason: No Insulin Coverage Lamotrigine (Lamotrigine 100 Mg Tablet) 300 mg PO BEDTIME [facility] Last Admin: 03/11/24 21:11 Dose: 300 mg Documented By: DANNY Metoprolol Tartrate (Metoprolol Tartrate 50 Mg Tablet) 50 mg PO BID [facility]; Protocol Last Admin: 03/12/24 08:06 Dose: 50 mg Documented By: NATHAN Nystatin (Nystatin Powder 15 Gm Bottle) 1 appl TOPICAL TID [facility]; Protocol Last Admin: 03/12/24 15:15 Dose: Not Given Documented By: ELIEZER Non-Admin Reason: Patient Refused Omeprazole (Omeprazole 40 Mg Capsule.) 40 mg PO DAILY@0630 [facility] Last Admin: 03/12/24 05:35 Dose: 40 mg Documented By: DANNY Ondansetron HCl (Ondansetron Hcl 4 Mg/2 Ml Vial) 4 mg IVPUSH Q8H PRN PRN Reason: Nausea Oxycodone HCl (Oxycodone Hcl Immed Release 5 Mg Tablet) 5 mg PO Q4H PRN PRN Reason: Pain, Moderate(Pain Scale 4-6) Sodium Chloride (0.9 % Sodium Chloride Flush 3 Ml Syringe) 3 ml IVFLUSH QSHIFT [facility] Last Admin: 03/12/24 15:08 Dose: 3 ml Documented By: ELIEZER Vitamin D (Cholecalciferol (Vitamin D3) 25 Mcg Tablet) 25 mcg PO DAILY [facility] Last Admin: 03/12/24 08:06 Dose: 25 mcg Documented By: NATHAN Labs 03/11/24 06:19 03/12/24 05:39 Labs: Laboratory Results - last 24 hr 03/11/24 03/12/24 03/12/24 20:23 05:39 07:16 Anion Gap 14 Estim Creat Clear Calc 100.5 Estimated GFR > 60 POC Glucose 150 H 79 Fasting Glucose 104 H Calcium 9.0 03/12/24 03/12/24 11:01 16:03 Anion Gap Estim Creat Clear Calc Estimated GFR POC Glucose 96 118 H Fasting Glucose Calcium Assessment and Plan (1) Persistent atrial fibrillation: Status: Acute Plan 73 year old female with history of paroxysmal atrial fibrillation anticoagulated with Eliquis last taken this morning, mood disorder, GERD, tdi-tusqfnz-prokahpva type 2 diabetes admitted to orthopedic surgery for management of displaced trimalleolar fracture of the right ankle with consult placed to hospitalist service for medical management. displaced trimalleolar fracture plan per orthopedic surgery s/p right ankle external fixation 03/10 and revision 03/11 resume eliquis post operatively per orthopedic surgery dyspnea on exertion history of SELMA on BiPAP with dyspnea on exertion with just a few steps Echo from [facility] shows normal LV systolic function EF 55%, echo this morning unchanged seen by surgery preoperatively, intermediate risk no hypoxia Outpt follow up with cardiology persistent atrial fibrillation-rate controlled Continue holding eliquis. Resume per orthopedic surgery continue metoprolol outpt follow up with cardiology Mood disorder continue home meds GERD ppi Morbid obesity bmi 40 likely contributing to dyspnea [id number] type 2 diabetes follow POCs, diabetic diet admelog on ssi. hold metformin, can resume on discharge blood sugar well controlled There are no other acute medical conditions at this time. We will sign off at this time. Please feel free to call us if any acute medical issues arise. Quality Stroke Does the patient have a stroke diagnosis?: No VTE Prior VTE?: No VTE Risk Level:: Medical - moderate - high VTE Device Contraindication: N/A - Device Ordered VTE Drug Contraindication: N/A - Med Ordered
[2024-03-12 19:40] LABS: Glucose, Whole Blood 122 mg/dL (60-115)
[2024-03-12] MEDS: Gabapentin 300 MG CAPSULE 600 MG PO (19:44)
[2024-03-12] MEDS: lamoTRIgine 100 MG TABLET 300 MG PO (19:45)
[2024-03-12] MEDS: Nystatin Powder 15 GM BOTTLE 1 APPL TOPICAL (19:50)
[2024-03-13] VITALS (11 sets, daily range): BP systolic 123–158; BP diastolic 79–92; PULSE 71–103; RESP 16–27; TEMP 36–36.9; O2SAT 94–99
[2024-03-13] MEDS: Omeprazole 40 MG CAPSULE.DR PO (05:39)
[2024-03-13 06:44] LABS: Anion Gap 14 (12-20); Blood Urea Nitrogen 11 mg/dL (9-16); Calcium 9.8 mg/dL (8.4-10.2); Carbon Dioxide 28 mmol/L (22-29); Chloride 107 mmol/L (96-108); Creatinine Clr Calc Pharmacy 94.8; Estimated Glomerular Filt Rate > 60; Glucose Fasting 81 mg/dL (60-99); Potassium 3.7 mmol/L (3.3-5.1); Sodium 145 mmol/L (135-145)
[2024-03-13 07:36] LABS: Glucose, Whole Blood 72 mg/dL (60-115)
[2024-03-13] MEDS: Gabapentin 300 MG CAPSULE PO (07:50)
[2024-03-13] MEDS: DULoxetine HCl 30 MG CAPSULE.DR PO (07:50)
[2024-03-13] MEDS: Cholecalciferol (Vitamin D3) 25 MCG TABLET PO (07:50)
[2024-03-13] MEDS: DULoxetine HCl 60 MG CAPSULE.DR PO (07:50)
[2024-03-13] MEDS: Ascorbic Acid 500 MG TABLET PO (07:50)
[2024-03-13] MEDS: Atorvastatin Calcium 40 MG TABLET PO (07:50)
[2024-03-13] MEDS: Metoprolol Tartrate 50 MG TABLET PO ×2 (07:50→20:48)
[2024-03-13] MEDS: Cyanocobalamin (Vitamin B-12) 1,000 MCG TABLET 1000 MCG PO (07:51)
[2024-03-13] MEDS: 0.9 % Sodium Chloride Flush 3 ML SYRINGE IVFLUSH ×3 (07:51→20:49)
[2024-03-13] MEDS: Nystatin Powder 15 GM BOTTLE 1 APPL TOPICAL ×3 (07:53→22:16)
--- NOTE | 2024-03-13 07:59 | PM.PNORT ---
Subjective Subjective Date of Service: 03/13/24 Interval history: POD2 external fixator and pins Patient is resting in bed comfortably No overnight events reported by nurse at bedside Reports no pain Physical Exam Vital Signs: Vital Signs: Last Vital Signs Temp 97.0 F 03/13/24 07:02 Pulse 75 03/13/24 07:50 Resp 18 03/13/24 07:02 BP 158/82 H 03/13/24 07:50 Pulse Ox 97 03/13/24 07:02 O2 Del Method Room Air 03/13/24 07:02 O2 Flow Rate 3 03/11/24 19:26 FiO2 98 03/11/24 17:14 BMI result Body Mass Index 40.5 Extrem: Other: Right ankle ex fix intact. No open fracture. Able to move all digits. Pedal pulse intact. Procedures Date of Service Date of Service: 03/13/24 Progress Note: A&P Assessment and plan (1) Trimalleolar fracture of right ankle: Status: Acute Assessment and Plan: RLE - Strict elevation on three pillows above heart level NWB RLE Pin site care - keep c/d/i Continue to monitor skin condition and edema -Once improved plan is to bring back to the OR for ORIF (2) Diabetic ulcer of right foot: Status: Acute (3) Atrial fibrillation: Status: Acute (4) Diabetes mellitus: Status: Acute Time Spent With Patient Time: Total time managing care of this patient today ____ minutes. Quality Stroke Does the patient have a stroke diagnosis?: No VTE Prior VTE?: No VTE Risk Level:: Medical - moderate - high VTE Device Contraindication: N/A - Device Ordered VTE Drug Contraindication: N/A - Med Ordered
[2024-03-13 11:14] LABS: Glucose, Whole Blood 91 mg/dL (60-115)
--- NOTE | 2024-03-13 14:55 | PC.NURSE ---
R lateral ankle noted to be more swollen then initial assessment this morning, ankle is warm to the touch, no pain reported, + pulses to Angelica BROWN contacted for update and photos, aware and no new orders at this time, RLE elevated, Pt is resting in bed with call solano in reach, respirations even and unlabored.
[2024-03-13 16:27] LABS: Glucose, Whole Blood 94 mg/dL (60-115)
[2024-03-13 19:58] LABS: Glucose, Whole Blood 126 mg/dL (60-115)
[2024-03-13] MEDS: Gabapentin 300 MG CAPSULE 600 MG PO (20:48)
[2024-03-13] MEDS: lamoTRIgine 100 MG TABLET 300 MG PO (20:48)
[2024-03-13] MEDS: Acetaminophen 325 MG TABLET 650 MG PO (20:50)
[2024-03-14] VITALS (11 sets, daily range): BP systolic 129–148; BP diastolic 76–88; PULSE 70–90; RESP 17–20; TEMP 36.1–36.8; O2SAT 94–98
[2024-03-14] MEDS: Omeprazole 40 MG CAPSULE.DR PO (05:31)
[2024-03-14 06:18] LABS: Anion Gap 15 (12-20); Blood Urea Nitrogen 10 mg/dL (9-16); Calcium 9.3 mg/dL (8.4-10.2); Carbon Dioxide 27 mmol/L (22-29); Chloride 108 mmol/L (96-108); Creatinine Clr Calc Pharmacy 96.1; Estimated Glomerular Filt Rate > 60; Glucose Fasting 91 mg/dL (60-99); Potassium 3.5 mmol/L (3.3-5.1); Sodium 146 mmol/L (135-145)
[2024-03-14 08:15] LABS: Glucose, Whole Blood 87 mg/dL (60-115)
[2024-03-14] MEDS: DULoxetine HCl 30 MG CAPSULE.DR PO (08:26)
[2024-03-14] MEDS: Cyanocobalamin (Vitamin B-12) 1,000 MCG TABLET 1000 MCG PO (08:26)
[2024-03-14] MEDS: Gabapentin 300 MG CAPSULE PO (08:26)
[2024-03-14] MEDS: Cholecalciferol (Vitamin D3) 25 MCG TABLET PO (08:26)
[2024-03-14] MEDS: Ascorbic Acid 500 MG TABLET PO (08:26)
[2024-03-14] MEDS: Atorvastatin Calcium 40 MG TABLET PO (08:26)
[2024-03-14] MEDS: DULoxetine HCl 60 MG CAPSULE.DR PO (08:27)
[2024-03-14] MEDS: 0.9 % Sodium Chloride Flush 3 ML SYRINGE IVFLUSH ×3 (08:27→21:00)
[2024-03-14] MEDS: Metoprolol Tartrate 50 MG TABLET PO ×2 (08:27→20:59)
[2024-03-14] MEDS: Nystatin Powder 15 GM BOTTLE 1 APPL TOPICAL ×3 (08:29→21:04)
--- NOTE | 2024-03-14 08:29 | PM.PNORT ---
Subjective Subjective Date of Service: 03/14/24 Interval history: POD3 external fixator and pins Patient is resting in bed comfortably No overnight events reported by nurse at bedside Reports no pain Physical Exam Vital Signs: Vital Signs: Last Vital Signs Temp 97.2 F 03/14/24 07:10 Pulse 90 03/14/24 07:10 Resp 18 03/14/24 07:10 BP 148/88 H 03/14/24 07:10 Pulse Ox 97 03/14/24 07:10 O2 Del Method Room Air 03/14/24 07:10 O2 Flow Rate 3 03/11/24 19:26 FiO2 98 03/11/24 17:14 BMI result Body Mass Index 40.5 Const: General: cooperative, healthy appearing and no acute distress Resp: Effort & Inspection: normal respiratory effort and able to speak in complete sentences Cardio: Rate: regular rate Peripheral pulses: Peripheral pulses 2+ throughout GI: Palpation (GI): Soft to palpation Skin: Lesions: no lesions Rashes: no rashes Extrem: Other: Right ankle ex fix intact. No open fracture. Able to move all digits. Pedal pulse intact. Procedures Date of Service Date of Service: 03/14/24 Progress Note: A&P Assessment and plan (1) Trimalleolar fracture of right ankle: Status: Acute Assessment and Plan: RLE - Strict elevation on three pillows above heart level NWB RLE Pin site care - keep c/d/i Continue to monitor skin condition and edema -Once improved plan is to bring back to the OR for ORIF (2) Diabetic ulcer of right foot: Status: Acute (3) Atrial fibrillation: Status: Acute (4) Diabetes mellitus: Status: Acute Time Spent With Patient Time: Total time managing care of this patient today ____ minutes. Quality Stroke Does the patient have a stroke diagnosis?: No VTE Prior VTE?: No VTE Risk Level:: Medical - moderate - high VTE Device Contraindication: N/A - Device Ordered VTE Drug Contraindication: N/A - Med Ordered
[2024-03-14 11:21] LABS: Glucose, Whole Blood 100 mg/dL (60-115)
--- NOTE | 2024-03-14 12:09 | HO.SKINPHOTO ---
Right foot. Pt states she pulled toenails off. Site cleansed toes TONYA. Left 2nd toe, scab in place TONYA. 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 Left great toenail. Site cleansed with NaCl, pat , silver alginate cut to fit, gauze applied, gauze wrap applied. Foam dressing applied to right heel for protection only. Bilateral heels raised off the bed.
[2024-03-14 15:53] LABS: Glucose, Whole Blood 90 mg/dL (60-115)
[2024-03-14] MEDS: Acetaminophen 325 MG TABLET 650 MG PO (18:27)
[2024-03-14 20:21] LABS: Glucose, Whole Blood 122 mg/dL (60-115)
[2024-03-14] MEDS: oxyCODONE HCl ER 10 MG TAB.ER.12H PO (20:59)
[2024-03-14] MEDS: Gabapentin 300 MG CAPSULE 600 MG PO (21:00)
[2024-03-14] MEDS: lamoTRIgine 100 MG TABLET 300 MG PO (21:00)
[2024-03-15] VITALS (9 sets, daily range): BP systolic 124–150; BP diastolic 72–88; PULSE 62–89; RESP 14–18; TEMP 36.1–36.8; O2SAT 94–99
[2024-03-15] MEDS: Omeprazole 40 MG CAPSULE.DR PO (05:54)
[2024-03-15 07:01] LABS: Glucose, Whole Blood 78 mg/dL (60-115)
[2024-03-15] MEDS: Cyanocobalamin (Vitamin B-12) 1,000 MCG TABLET 1000 MCG PO (07:44)
[2024-03-15] MEDS: oxyCODONE HCl ER 10 MG TAB.ER.12H PO ×2 (07:44→20:58)
[2024-03-15] MEDS: Ascorbic Acid 500 MG TABLET PO (07:44)
[2024-03-15] MEDS: DULoxetine HCl 60 MG CAPSULE.DR PO (07:45)
[2024-03-15] MEDS: Atorvastatin Calcium 40 MG TABLET PO (07:45)
[2024-03-15] MEDS: Cholecalciferol (Vitamin D3) 25 MCG TABLET PO (07:45)
[2024-03-15] MEDS: Metoprolol Tartrate 50 MG TABLET PO ×2 (07:45→21:03)
[2024-03-15] MEDS: 0.9 % Sodium Chloride Flush 3 ML SYRINGE IVFLUSH ×3 (07:45→20:59)
[2024-03-15] MEDS: DULoxetine HCl 30 MG CAPSULE.DR PO (07:45)
[2024-03-15] MEDS: Gabapentin 300 MG CAPSULE PO (07:45)
[2024-03-15] MEDS: Nystatin Powder 15 GM BOTTLE 1 APPL TOPICAL ×3 (07:46→21:03)
--- NOTE | 2024-03-15 10:30 | PM.PNORT ---
Subjective Subjective Date of Service: 03/15/24 Interval history: POD3 external fixator and pins Patient is resting in bed comfortably Patient pulled off all of her toe nails yesterday Reports no pain Physical Exam Vital Signs: Vital Signs: Last Vital Signs Temp 97.9 F 03/15/24 06:46 Pulse 80 03/15/24 06:46 Resp 18 03/15/24 06:46 BP 142/77 H 03/15/24 06:46 Pulse Ox 99 03/15/24 06:46 O2 Del Method CPAP 03/15/24 06:46 O2 Flow Rate 3 03/11/24 19:26 FiO2 98 03/11/24 17:14 BMI result Body Mass Index 40.5 Const: General: cooperative, healthy appearing and no acute distress Resp: Effort & Inspection: normal respiratory effort and able to speak in complete sentences Cardio: Rate: regular rate Peripheral pulses: Peripheral pulses 2+ throughout GI: Palpation (GI): Soft to palpation Skin: Lesions: no lesions Rashes: no rashes Extrem: Other: Right ankle ex fix intact. No open fracture. Able to move all digits. Pedal pulse intact. Bilateral feet open wounds from the patient removing own toe nails. Procedures Date of Service Date of Service: 03/15/24 Progress Note: A&P Assessment and plan (1) Trimalleolar fracture of right ankle: Status: Acute Assessment and Plan: RLE - Strict elevation on three pillows above heart level NWB RLE Pin site care - keep c/d/i Continue to monitor skin condition, edema and any signs of infection -Once improved plan is to bring back to the OR for ORIF (2) Diabetic ulcer of right foot: Status: Acute (3) Atrial fibrillation: Status: Acute (4) Diabetes mellitus: Status: Acute Time Spent With Patient Time: Total time managing care of this patient today ____ minutes. Quality Stroke Does the patient have a stroke diagnosis?: No VTE Prior VTE?: No VTE Risk Level:: Medical - moderate - high VTE Device Contraindication: N/A - Device Ordered VTE Drug Contraindication: N/A - Med Ordered
[2024-03-15 11:42] LABS: Glucose, Whole Blood 89 mg/dL (60-115)
--- NOTE | 2024-03-15 13:03 | PC.NURSE ---
IV outdated, unable to place new IV, Nurse Educator Naun to see if can assist with US guided.
--- NOTE | 2024-03-15 13:57 | MHC.CM.PN ---
EMR REVIEWED. PT HAS NOT BEEN CLEARED FOR DC. UPDATES SENT TO [facility] VIA [employer]. CM WILL CONTONUE TO FOLLOW FOR ANY CHANGE TO DC PLAN.
--- NOTE | 2024-03-15 14:30 | PM.EVENT ---
Event Note Date of Service: 03/15/24 Time Spent With Patient Time: Total time managing care of this patient today ____ minutes.
--- NOTE | 2024-03-15 15:00 | PC.NURSE ---
Pt is calling [facility] and wants to be transferred to [facility]. Providers notified.
[2024-03-15 16:24] LABS: Glucose, Whole Blood 94 mg/dL (60-115)
[2024-03-15 20:23] LABS: Glucose, Whole Blood 119 mg/dL (60-115)
[2024-03-15] MEDS: lamoTRIgine 100 MG TABLET 300 MG PO (20:58)
[2024-03-15] MEDS: Gabapentin 300 MG CAPSULE 600 MG PO (20:59)
[2024-03-16] VITALS (10 sets, daily range): BP systolic 129–141; BP diastolic 80–87; PULSE 67–94; RESP 16–20; TEMP 36–36.1; O2SAT 95–98
[2024-03-16] MEDS: Omeprazole 40 MG CAPSULE.DR PO (05:33)
[2024-03-16 07:13] LABS: Glucose, Whole Blood 84 mg/dL (60-115)
[2024-03-16] MEDS: Cyanocobalamin (Vitamin B-12) 1,000 MCG TABLET 1000 MCG PO (07:55)
[2024-03-16] MEDS: DULoxetine HCl 60 MG CAPSULE.DR PO (07:55)
[2024-03-16] MEDS: Metoprolol Tartrate 50 MG TABLET PO ×2 (07:55→20:29)
[2024-03-16] MEDS: DULoxetine HCl 30 MG CAPSULE.DR PO (07:56)
[2024-03-16] MEDS: oxyCODONE HCl ER 10 MG TAB.ER.12H PO ×2 (07:56→20:29)
[2024-03-16] MEDS: Atorvastatin Calcium 40 MG TABLET PO (07:56)
[2024-03-16] MEDS: Cholecalciferol (Vitamin D3) 25 MCG TABLET PO (07:56)
[2024-03-16] MEDS: 0.9 % Sodium Chloride Flush 3 ML SYRINGE IVFLUSH ×2 (07:56→17:35)
[2024-03-16] MEDS: Ascorbic Acid 500 MG TABLET PO (07:56)
[2024-03-16] MEDS: Gabapentin 300 MG CAPSULE PO (07:56)
[2024-03-16] MEDS: Nystatin Powder 15 GM BOTTLE 1 APPL TOPICAL ×2 (08:01→20:32)
[2024-03-16 11:12] LABS: Glucose, Whole Blood 112 mg/dL (60-115)
--- NOTE | 2024-03-16 12:32 | HO.WOUND ---
Wound Consult: Initial 73yr old?female admitted to [facility] on 02/3024 - See progress notes and H&P for detailed history.? Wound consult placed for Left extremity.? Patient agreeable to assessment and photo documentation.? Patient reports she has burning sensation on her left heel - heel assessed - no injury noted - skin pigmentation is normal no color changes noted - no warmth, no calluses noted. There is dry tissue noted. No open wounds no skin injury at this time - preventative measures taken with foam dressing application and off loading heel from bed surface with use of pillows. The left lateral ankle is noted for dried scabbed wound bed - patient reports it is from scratching. Cleansed and foam dressing applied. partial thickness tissue loss dried pale pink wound bed. Bilateral great toes are noted for missing nails and scabbed over tissue - no drainage noted. Patient reports they are a result of her ripping out her toenails because they caused her discomfort in her shoes prior to coming to hospital. When asked how she removed them she reported with tools. There are no s/s of active infection at this time. The scabs are stable - there is limited topical intervention to apply at this time. should the scabs soften and drainage I would recommend xeroform and gauze dressing but pt refused at this time. Recommendations: 1. Turn and Reposition every 2 hours and as needed for patient comfort.? Use pillows or wedges to support off loading positions. 2. Off Load all bony prominences with use of pillows and heel boots if needed.? Apply Preventative foams where needed. ? 3. Monitor for incontinence and moisture control, use barrier creams when needed for prevention and treatment. 4. Provide adequate and supplemental nutrition.? 5. Order low air loss mattress. 6. When applicable maintain blood glucose levels per Providers order. 7. Bilateral Great Toe - Cleanse with NS moist gauze, apply single layer of xeroform cover with dry gauze wrap. Change Daily. 8. Left Heel - Apply Preventative foam dressing to heel peel back and assess Q shift and change every 3 days. off load heel off of bed surface. 9. Left Lateral Ankle - Cleanse with NS moist gauze. Apply foam dressing peel back and assess Q shift and change every 3 days. Re-consult wound care Nurse for wound deterioration or wound changes
[2024-03-16] MEDS: Enoxaparin Sodium 40 MG/0.4 ML SYRINGE SUBCUT (15:15)
[2024-03-16 16:29] LABS: Glucose, Whole Blood 92 mg/dL (60-115)
[2024-03-16 20:19] LABS: Glucose, Whole Blood 105 mg/dL (60-115)
[2024-03-16] MEDS: Gabapentin 300 MG CAPSULE 600 MG PO (20:30)
[2024-03-16] MEDS: lamoTRIgine 100 MG TABLET 300 MG PO (20:30)
[2024-03-17] VITALS (9 sets, daily range): BP systolic 117–152; BP diastolic 58–94; PULSE 67–82; RESP 18–19; TEMP 36.1–36.6; O2SAT 94–97
[2024-03-17] MEDS: 0.9 % Sodium Chloride Flush 3 ML SYRINGE IVFLUSH ×3 (00:32→16:16)
[2024-03-17] MEDS: Omeprazole 40 MG CAPSULE.DR PO (05:57)
[2024-03-17 06:59] LABS: Glucose, Whole Blood 85 mg/dL (60-115)
[2024-03-17] MEDS: oxyCODONE HCl ER 10 MG TAB.ER.12H PO ×2 (08:52→20:04)
[2024-03-17] MEDS: DULoxetine HCl 60 MG CAPSULE.DR PO (08:52)
[2024-03-17] MEDS: Atorvastatin Calcium 40 MG TABLET PO (08:52)
[2024-03-17] MEDS: Cyanocobalamin (Vitamin B-12) 1,000 MCG TABLET 1000 MCG PO (08:52)
[2024-03-17] MEDS: Metoprolol Tartrate 50 MG TABLET PO ×2 (08:53→20:05)
[2024-03-17] MEDS: Ascorbic Acid 500 MG TABLET PO (08:53)
[2024-03-17] MEDS: DULoxetine HCl 30 MG CAPSULE.DR PO (08:53)
[2024-03-17] MEDS: Cholecalciferol (Vitamin D3) 25 MCG TABLET PO (08:53)
[2024-03-17] MEDS: Gabapentin 300 MG CAPSULE PO (08:54)
[2024-03-17] MEDS: Nystatin Powder 15 GM BOTTLE 1 APPL TOPICAL ×3 (10:37→20:06)
[2024-03-17 11:15] LABS: Glucose, Whole Blood 94 mg/dL (60-115)
--- NOTE | 2024-03-17 12:52 | MHC.CM.PN ---
EMR REVIEWED. PER ORTHO, WILL NOT BE MEDICALLY CLEARED FOR DC TODAY (PENDING FURTHER SURGERY) CM WILL CONTINUE TO FOLLOW FOR ANY CHANGE TO DC PLAN. PT WOULD LIKE TO RETURN TO [facility] ON RECOVERY AND PER DB, THIS WILL DEPEND ON BED AVAILABILITY AND CANNOT TAKE PT BACK IF NWB.
[2024-03-17] MEDS: Enoxaparin Sodium 40 MG/0.4 ML SYRINGE SUBCUT (13:51)
[2024-03-17] MEDS: Acetaminophen 325 MG TABLET 650 MG PO (16:27)
[2024-03-17 16:29] LABS: Glucose, Whole Blood 113 mg/dL (60-115)
--- NOTE | 2024-03-17 18:17 | PC.NURSE ---
Clarified activity with PAUL turpin,it is ok for patient to dangle legs at bedside,no wt bearing on Right leg,needs assistance with all activity,unsafe for patient to walk on right leg,primary METALS ANALYST Nara notified
[2024-03-17] MEDS: Gabapentin 300 MG CAPSULE 600 MG PO (20:04)
[2024-03-17] MEDS: lamoTRIgine 100 MG TABLET 300 MG PO (20:05)
[2024-03-17 20:31] LABS: Glucose, Whole Blood 118 mg/dL (60-115)
[2024-03-18] VITALS (8 sets, daily range): BP systolic 121–160; BP diastolic 79–94; PULSE 71–95; RESP 17–24; TEMP 36.1–36.7; O2SAT 93–97
[2024-03-18] MEDS: 0.9 % Sodium Chloride Flush 3 ML SYRINGE IVFLUSH ×4 (00:34→19:55)
[2024-03-18] MEDS: Acetaminophen 325 MG TABLET 650 MG PO (00:42)
[2024-03-18] MEDS: Omeprazole 40 MG CAPSULE.DR PO (05:48)
[2024-03-18 07:37] LABS: Glucose, Whole Blood 79 mg/dL (60-115)
[2024-03-18] MEDS: Metoprolol Tartrate 50 MG TABLET PO ×2 (08:24→19:54)
[2024-03-18] MEDS: Ascorbic Acid 500 MG TABLET PO (08:24)
[2024-03-18] MEDS: Cholecalciferol (Vitamin D3) 25 MCG TABLET PO (08:24)
[2024-03-18] MEDS: DULoxetine HCl 30 MG CAPSULE.DR PO (08:24)
[2024-03-18] MEDS: Atorvastatin Calcium 40 MG TABLET PO (08:24)
[2024-03-18] MEDS: Nystatin Powder 15 GM BOTTLE 1 APPL TOPICAL ×3 (08:25→19:56)
[2024-03-18] MEDS: Gabapentin 300 MG CAPSULE PO (08:25)
[2024-03-18] MEDS: DULoxetine HCl 60 MG CAPSULE.DR PO (08:25)
[2024-03-18] MEDS: Cyanocobalamin (Vitamin B-12) 1,000 MCG TABLET 1000 MCG PO (08:25)
[2024-03-18] MEDS: oxyCODONE HCl ER 10 MG TAB.ER.12H PO ×2 (08:25→19:55)
--- NOTE | 2024-03-18 09:55 | PM.PNORT ---
Subjective Subjective Date of Service: 03/18/24 Principal diagnosis: Right ankle fracture/dislocation and peripheral neuropathy Interval history: Confused overnight No acute events Physical Exam Vital Signs: Vital Signs: Last Vital Signs Temp 96.9 F 03/18/24 07:13 Pulse 71 03/18/24 08:24 Resp 17 03/18/24 07:13 BP 160/94 H 03/18/24 08:24 Pulse Ox 96 03/18/24 07:13 O2 Del Method Room Air 03/18/24 07:13 O2 Flow Rate 3 03/11/24 19:26 FiO2 98 03/11/24 17:14 BMI result Body Mass Index 40.5 Extrem: Other: pin sites c/d/i swelling over right ankle improved but still minimally present over medial mal Procedures Date of Service Date of Service: 03/18/24 Progress Note: A&P Assessment and plan (1) Trimalleolar fracture of right ankle: Status: Acute Assessment and Plan: Ex fix intact US and CORINNA today Out of bed ok but NWB (2) Peripheral neuropathy: Status: Acute Time Spent With Patient Time: Total time managing care of this patient today ____ minutes. Quality Stroke Does the patient have a stroke diagnosis?: No VTE Prior VTE?: No VTE Risk Level:: Medical - moderate - high VTE Device Contraindication: N/A - Device Ordered VTE Drug Contraindication: N/A - Med Ordered
[2024-03-18 11:33] LABS: Glucose, Whole Blood 122 mg/dL (60-115)
[2024-03-18] MEDS: Enoxaparin Sodium 40 MG/0.4 ML SYRINGE SUBCUT (13:56)
[2024-03-18 17:49] LABS: Glucose, Whole Blood 107 mg/dL (60-115)
[2024-03-18] MEDS: Gabapentin 300 MG CAPSULE 600 MG PO (19:54)
[2024-03-18] MEDS: lamoTRIgine 100 MG TABLET 300 MG PO (19:54)
[2024-03-18 20:27] LABS: Glucose, Whole Blood 146 mg/dL (60-115)
[2024-03-19] VITALS (7 sets, daily range): BP systolic 134–155; BP diastolic 60–96; PULSE 76–88; RESP 16–20; TEMP 36.1–36.6; O2SAT 95–98
[2024-03-19] MEDS: Omeprazole 40 MG CAPSULE.DR PO (05:40)
[2024-03-19 07:52] LABS: Glucose, Whole Blood 95 mg/dL (60-115)
[2024-03-19] MEDS: DULoxetine HCl 60 MG CAPSULE.DR PO (08:07)
[2024-03-19] MEDS: Atorvastatin Calcium 40 MG TABLET PO (08:08)
[2024-03-19] MEDS: Cholecalciferol (Vitamin D3) 25 MCG TABLET PO (08:08)
[2024-03-19] MEDS: Ascorbic Acid 500 MG TABLET PO (08:08)
[2024-03-19] MEDS: oxyCODONE HCl ER 10 MG TAB.ER.12H PO (08:08)
[2024-03-19] MEDS: Gabapentin 300 MG CAPSULE PO (08:08)
[2024-03-19] MEDS: Metoprolol Tartrate 50 MG TABLET PO ×2 (08:08→21:34)
[2024-03-19] MEDS: Cyanocobalamin (Vitamin B-12) 1,000 MCG TABLET 1000 MCG PO (08:08)
[2024-03-19] MEDS: DULoxetine HCl 30 MG CAPSULE.DR PO (08:09)
[2024-03-19] MEDS: Nystatin Powder 15 GM BOTTLE 1 APPL TOPICAL ×3 (08:09→21:44)
[2024-03-19] MEDS: 0.9 % Sodium Chloride Flush 3 ML SYRINGE IVFLUSH ×3 (08:09→21:47)
[2024-03-19 11:22] LABS: Glucose, Whole Blood 109 mg/dL (60-115)
[2024-03-19] MEDS: Enoxaparin Sodium 40 MG/0.4 ML SYRINGE SUBCUT (13:54)
--- NOTE | 2024-03-19 14:30 | MHC.CM.PN ---
Met with patient today. She gave permission to speak with her brother, Regis. A detailed VM was left; which included CM contact info. DP return to [facility] via BLS.
[2024-03-19 16:14] LABS: Glucose, Whole Blood 104 mg/dL (60-115)
[2024-03-19 20:25] LABS: Glucose, Whole Blood 98 mg/dL (60-115)
[2024-03-19] MEDS: Gabapentin 300 MG CAPSULE 600 MG PO (21:35)
[2024-03-19] MEDS: Acetaminophen 325 MG TABLET 650 MG PO (21:40)
[2024-03-19] MEDS: lamoTRIgine 100 MG TABLET 300 MG PO (21:42)
[2024-03-20] VITALS (7 sets, daily range): BP systolic 130–158; BP diastolic 74–89; PULSE 70–90; RESP 12–22; TEMP 35.5–36.5; O2SAT 95–97
[2024-03-20] MEDS: Omeprazole 40 MG CAPSULE.DR PO (05:53)
[2024-03-20 08:08] LABS: Glucose, Whole Blood 83 mg/dL (60-115)
[2024-03-20] MEDS: Ascorbic Acid 500 MG TABLET PO (08:49)
[2024-03-20] MEDS: Cholecalciferol (Vitamin D3) 25 MCG TABLET PO (08:49)
[2024-03-20] MEDS: DULoxetine HCl 60 MG CAPSULE.DR PO (08:50)
[2024-03-20] MEDS: Cyanocobalamin (Vitamin B-12) 1,000 MCG TABLET 1000 MCG PO (08:50)
[2024-03-20] MEDS: 0.9 % Sodium Chloride Flush 3 ML SYRINGE IVFLUSH ×3 (08:50→20:34)
[2024-03-20] MEDS: DULoxetine HCl 30 MG CAPSULE.DR PO (08:50)
[2024-03-20] MEDS: Atorvastatin Calcium 40 MG TABLET PO (08:50)
[2024-03-20] MEDS: Metoprolol Tartrate 50 MG TABLET PO ×2 (08:50→20:28)
[2024-03-20] MEDS: Gabapentin 300 MG CAPSULE PO (08:50)
[2024-03-20] MEDS: Nystatin Powder 15 GM BOTTLE 1 APPL TOPICAL ×3 (08:51→20:32)
[2024-03-20 11:28] LABS: Glucose, Whole Blood 101 mg/dL (60-115)
--- NOTE | 2024-03-20 12:20 | PM.EVENT ---
Event Note Date of Service: 03/20/24 Event Note: went to see patient she was asleep with cpap on ex fix appeared c/d/i no issues Time Spent With Patient Time: Total time managing care of this patient today ____ minutes.
[2024-03-20] MEDS: Enoxaparin Sodium 40 MG/0.4 ML SYRINGE SUBCUT (13:40)
[2024-03-20 16:24] LABS: Glucose, Whole Blood 109 mg/dL (60-115)
[2024-03-20] MEDS: Acetaminophen 325 MG TABLET 650 MG PO (20:29)
[2024-03-20] MEDS: Gabapentin 300 MG CAPSULE 600 MG PO (20:30)
[2024-03-20] MEDS: lamoTRIgine 100 MG TABLET 300 MG PO (20:30)
[2024-03-20 20:31] LABS: Glucose, Whole Blood 100 mg/dL (60-115)
[2024-03-21 03:37] VITALS: BP 133/75; PULSE 71; RESP 20; TEMP 36.1; O2SAT 100
[2024-03-21] MEDS: Omeprazole 40 MG CAPSULE.DR PO (05:57)
[2024-03-21] MEDS: Acetaminophen 325 MG TABLET 650 MG PO ×3 (05:58→20:01)
[2024-03-21 07:29] LABS: Glucose, Whole Blood 91 mg/dL (60-115)
[2024-03-21 07:31] VITALS: BP 143/69; PULSE 79; RESP 18; TEMP 36.2; O2SAT 94
[2024-03-21] MEDS: Cyanocobalamin (Vitamin B-12) 1,000 MCG TABLET 1000 MCG PO (07:59)
[2024-03-21] MEDS: Ascorbic Acid 500 MG TABLET PO (07:59)
[2024-03-21] MEDS: Cholecalciferol (Vitamin D3) 25 MCG TABLET PO (07:59)
[2024-03-21] MEDS: Metoprolol Tartrate 50 MG TABLET PO ×2 (07:59→19:58)
[2024-03-21] MEDS: Gabapentin 300 MG CAPSULE PO (07:59)
[2024-03-21] MEDS: Atorvastatin Calcium 40 MG TABLET PO (07:59)
[2024-03-21] MEDS: DULoxetine HCl 30 MG CAPSULE.DR PO (07:59)
[2024-03-21] MEDS: DULoxetine HCl 60 MG CAPSULE.DR PO (08:00)
[2024-03-21] MEDS: 0.9 % Sodium Chloride Flush 3 ML SYRINGE IVFLUSH ×2 (08:00→14:05)
[2024-03-21] MEDS: Nystatin Powder 15 GM BOTTLE 1 APPL TOPICAL ×3 (08:07→19:59)
[2024-03-21 11:29] LABS: Glucose, Whole Blood 94 mg/dL (60-115)
[2024-03-21] MEDS: Enoxaparin Sodium 40 MG/0.4 ML SYRINGE SUBCUT (14:05)
[2024-03-21] MEDS: oxyCODONE HCl Immed Release 5 MG TABLET PO ×2 (15:01→20:01)
[2024-03-21 15:29] VITALS: BP 145/68; PULSE 98; RESP 15; TEMP 36.3; O2SAT 96
[2024-03-21 16:18] LABS: Glucose, Whole Blood 95 mg/dL (60-115)
[2024-03-21 19:49] VITALS: BP 151/91; PULSE 100; RESP 18; TEMP 36.1; O2SAT 97
[2024-03-21 19:58] VITALS: BP 151/91; PULSE 100
[2024-03-21] MEDS: lamoTRIgine 100 MG TABLET 300 MG PO (19:58)
[2024-03-21] MEDS: Gabapentin 300 MG CAPSULE 600 MG PO (19:59)
[2024-03-21 20:17] LABS: Glucose, Whole Blood 142 mg/dL (60-115)
[2024-03-21 23:20] VITALS: PULSE 96; RESP 25; O2SAT 94
[2024-03-22] VITALS (7 sets, daily range): BP systolic 112–131; BP diastolic 67–84; PULSE 84–115; RESP 16–20; TEMP 36.1–36.6; O2SAT 93–96
[2024-03-22] MEDS: 0.9 % Sodium Chloride Flush 3 ML SYRINGE IVFLUSH ×4 (00:34→20:03)
[2024-03-22] MEDS: Omeprazole 40 MG CAPSULE.DR PO (05:58)
[2024-03-22 07:28] LABS: Glucose, Whole Blood 82 mg/dL (60-115)
[2024-03-22] MEDS: Gabapentin 300 MG CAPSULE PO (08:46)
[2024-03-22] MEDS: Cyanocobalamin (Vitamin B-12) 1,000 MCG TABLET 1000 MCG PO (08:46)
[2024-03-22] MEDS: Metoprolol Tartrate 50 MG TABLET PO ×2 (08:46→20:03)
[2024-03-22] MEDS: DULoxetine HCl 30 MG CAPSULE.DR PO (08:46)
[2024-03-22] MEDS: Atorvastatin Calcium 40 MG TABLET PO (08:47)
[2024-03-22] MEDS: DULoxetine HCl 60 MG CAPSULE.DR PO (08:47)
[2024-03-22] MEDS: Ascorbic Acid 500 MG TABLET PO (08:47)
[2024-03-22] MEDS: Cholecalciferol (Vitamin D3) 25 MCG TABLET PO (08:47)
[2024-03-22] MEDS: Acetaminophen 325 MG TABLET 650 MG PO ×3 (08:47→21:53)
[2024-03-22] MEDS: Nystatin Powder 15 GM BOTTLE 1 APPL TOPICAL ×2 (08:52→15:40)
--- NOTE | 2024-03-22 09:53 | MHC.CM.PN ---
DP return to [facility] via BLS. A clinical update has been sent to [facility].
[2024-03-22] MEDS: oxyCODONE HCl Immed Release 5 MG TABLET PO (11:14)
[2024-03-22 11:27] LABS: Glucose, Whole Blood 116 mg/dL (60-115)
[2024-03-22] MEDS: Enoxaparin Sodium 40 MG/0.4 ML SYRINGE SUBCUT (15:40)
[2024-03-22 16:23] LABS: Glucose, Whole Blood 93 mg/dL (60-115)
--- NOTE | 2024-03-22 19:06 | PM.PNORT ---
Subjective Subjective Date of Service: 03/22/24 Principal diagnosis: Right ankle fracture/dislocation and peripheral neuropathy Interval history: Right ankle external fixator and pins Patient is resting in bed comfortably eating breakfast no concerns today Physical Exam Vital Signs: Vital Signs: Last Vital Signs Temp 97 F 03/22/24 15:10 Pulse 92 03/22/24 15:10 Resp 16 03/22/24 15:10 BP 115/72 03/22/24 15:10 Pulse Ox 94 03/22/24 15:10 O2 Del Method Room Air 03/22/24 15:10 O2 Flow Rate 3 03/11/24 19:26 FiO2 98 03/11/24 17:14 BMI result Body Mass Index 40.5 Extrem: Other: pin sites c/d/i superficial wound on anterior tibia swelling over right ankle improved but still minimally present over medial mal Procedures Date of Service Date of Service: 03/22/24 Progress Note: A&P Assessment and plan (1) Trimalleolar fracture of right ankle: Status: Acute Assessment and Plan: Ex fix intact wet to dry dressing bid to ant tibia wound Out of bed ok but NWB (2) Peripheral neuropathy: Status: Acute Time Spent With Patient Time: Total time managing care of this patient today ____ minutes. Quality Stroke Does the patient have a stroke diagnosis?: No VTE Prior VTE?: No VTE Risk Level:: Medical - moderate - high VTE Device Contraindication: N/A - Device Ordered VTE Drug Contraindication: N/A - Med Ordered
[2024-03-22] MEDS: lamoTRIgine 100 MG TABLET 300 MG PO (20:02)
[2024-03-22] MEDS: Gabapentin 300 MG CAPSULE 600 MG PO (20:03)
[2024-03-22 20:24] LABS: Glucose, Whole Blood 101 mg/dL (60-115)
[2024-03-23] VITALS (10 sets, daily range): BP systolic 121–149; BP diastolic 77–98; PULSE 91–105; RESP 16–19; TEMP 36.2–36.6; O2SAT 96–97
[2024-03-23] MEDS: Omeprazole 40 MG CAPSULE.DR PO (05:35)
[2024-03-23 07:27] LABS: Glucose, Whole Blood 85 mg/dL (60-115)
[2024-03-23] MEDS: Atorvastatin Calcium 40 MG TABLET PO (07:32)
[2024-03-23] MEDS: oxyCODONE HCl Immed Release 5 MG TABLET PO (07:32)
[2024-03-23] MEDS: DULoxetine HCl 60 MG CAPSULE.DR PO (07:33)
[2024-03-23] MEDS: Metoprolol Tartrate 50 MG TABLET PO ×2 (07:33→19:55)
[2024-03-23] MEDS: DULoxetine HCl 30 MG CAPSULE.DR PO (07:33)
[2024-03-23] MEDS: Ascorbic Acid 500 MG TABLET PO (07:33)
[2024-03-23] MEDS: Gabapentin 300 MG CAPSULE PO (07:33)
[2024-03-23] MEDS: Cyanocobalamin (Vitamin B-12) 1,000 MCG TABLET 1000 MCG PO (07:33)
[2024-03-23] MEDS: Cholecalciferol (Vitamin D3) 25 MCG TABLET PO (07:33)
[2024-03-23] MEDS: 0.9 % Sodium Chloride Flush 3 ML SYRINGE IVFLUSH ×2 (07:38→17:00)
[2024-03-23] MEDS: Acetaminophen 325 MG TABLET 650 MG PO (08:42)
[2024-03-23 11:43] LABS: Glucose, Whole Blood 98 mg/dL (60-115)
[2024-03-23] MEDS: Enoxaparin Sodium 40 MG/0.4 ML SYRINGE SUBCUT (14:27)
[2024-03-23] MEDS: Nystatin Powder 15 GM BOTTLE 1 APPL TOPICAL ×2 (14:29→19:57)
[2024-03-23 16:27] LABS: Glucose, Whole Blood 107 mg/dL (60-115)
[2024-03-23] MEDS: lamoTRIgine 100 MG TABLET 300 MG PO (19:56)
[2024-03-23] MEDS: Gabapentin 300 MG CAPSULE 600 MG PO (19:56)
[2024-03-23 20:07] LABS: Glucose, Whole Blood 125 mg/dL (60-115)
[2024-03-24] VITALS (19 sets, daily range): BP systolic 103–136; BP diastolic 59–83; PULSE 80–118; RESP 16–21; TEMP 36.1–36.7; O2SAT 93–97
[2024-03-24] MEDS: 0.9 % Sodium Chloride Flush 3 ML SYRINGE IVFLUSH ×4 (00:23→23:41)
[2024-03-24] MEDS: oxyCODONE HCl Immed Release 5 MG TABLET PO ×3 (01:00→23:40)
[2024-03-24] MEDS: Acetaminophen 325 MG TABLET 650 MG PO (03:40)
[2024-03-24 07:46] LABS: Glucose, Whole Blood 109 mg/dL (60-115)
[2024-03-24] MEDS: DULoxetine HCl 60 MG CAPSULE.DR PO (08:50)
[2024-03-24] MEDS: Metoprolol Tartrate 50 MG TABLET PO ×2 (08:50→19:39)
[2024-03-24] MEDS: Gabapentin 300 MG CAPSULE PO (08:50)
[2024-03-24] MEDS: Cholecalciferol (Vitamin D3) 25 MCG TABLET PO (08:51)
[2024-03-24] MEDS: Cyanocobalamin (Vitamin B-12) 1,000 MCG TABLET 1000 MCG PO (08:51)
[2024-03-24] MEDS: Atorvastatin Calcium 40 MG TABLET PO (08:51)
[2024-03-24] MEDS: DULoxetine HCl 30 MG CAPSULE.DR PO (08:51)
[2024-03-24] MEDS: Ascorbic Acid 500 MG TABLET PO (08:51)
--- NOTE | 2024-03-24 10:36 | MHC.CM.PN ---
EMR reviewed. Per RN patient is scheduled for ORIF today. CM will continue to follow.
[2024-03-24 11:25] LABS: Glucose, Whole Blood 99 mg/dL (60-115)
[2024-03-24 12:24] LABS: Glucose, Whole Blood 104 mg/dL (60-115)
--- NOTE | 2024-03-24 13:17 | MHC.SHP ---
Pre-Procedural Eval Section A - 24 Hr Update-Section A only Date of Service: 03/24/24 The patient is an INPATIENT: No Changes since office visit: No Cold of Flu in the past 2 weeks, No New Medical Problems, No Changes in Medication and No Patient answered all questions The patient has been examined within 24 hours of the surgical procedure. The History & Physical has been completed within 30 days and I have reviewed it.: Yes Section B - Complete if H&P > 30 days Chief Complaint: R ankle fx Allergies: Allergies Allergy/AdvReac Type Severity Reaction Status Date / Time mirabegron [From Myrbetriq] Allergy Hallucinati Verified 03/09/24 13:21 ons Plan I have reviewed the history and physical and performed a pertinent physical examination on my patient. No changes have occurred unless specified. Time Spent With Patient Time: Total time managing care of this patient today ____ minutes.
--- NOTE | 2024-03-24 13:18 | MHC.SHP ---
Pre-Procedural Eval Section A - 24 Hr Update-Section A only Date of Service: 03/24/24 The patient is an INPATIENT: Yes Changes since office visit: Yes New Medical Problems The patient has been examined within 24 hours of the surgical procedure. The History & Physical has been completed within 30 days and I have reviewed it.: Yes Section B - Complete if H&P > 30 days Chief Complaint: R ankle fx Allergies: Allergies Allergy/AdvReac Type Severity Reaction Status Date / Time mirabegron [From Myrbetriq] Allergy Hallucinati Verified 03/09/24 13:21 ons Plan Diagnosis/Plan: Change (Clairs ankle looks erythematous today and her lateral pin site looks srythematous with discharge. I discussed this with her and her HCP ( her brother Regis) and I will examine her ankle and adjust her ex fix if needed and will incise skin if there is no evidence of infection. ) I have reviewed the history and physical and performed a pertinent physical examination on my patient. No changes have occurred unless specified. Time Spent With Patient Time: Total time managing care of this patient today ____ minutes.
--- NOTE | 2024-03-24 13:40 | P.CONAN_ITS ---
[facility] Active Problems Active Problems: All Active Problems Peripheral neuropathy (Acute) Persistent atrial fibrillation (Acute) Preoperative cardiovascular examination (Acute) MG (dyspnea on exertion) (Acute) Trimalleolar fracture of right ankle (Acute) Suicide attempt (Acute) SELMA treated with BiPAP (Acute) Diabetic ulcer of right foot (Acute) Atrial fibrillation (Acute) Borderline personality disorder (Acute) Major depressive disorder (Acute) Diabetes mellitus (Acute) Past Medical History Medical History (Updated 03/18/24 @ 09:56 by Santiago Paulino MD) Elevated cholesterol Anxiety SELMA treated with BiPAP Diabetic ulcer of right foot Atrial fibrillation Borderline personality disorder Major depressive disorder Diabetes mellitus Chronic anticoagulation Family History Family history of problems with anesthesia: No Surgical History Surgical History (Updated 03/10/24 @ 13:40 by Jessica Reilly RN) Hx of esophagogastroduodenoscopy Hx of colonoscopy History of carpal tunnel release of both wrists Hx of bilateral cataract extraction Hx of bilateral breast reduction surgery Hx of hysterectomy History of Problems with Anesthesia: No Social History Social History Household Members: None Housing: [facility] Housing Other:: [place] [facility] Do you presently have visiting nurse or other home services: Yes Unable to assess alcohol history related to: Unable to respond Comment: missing toenails, dry sores Patient Tobacco Use Status: Former Tobacco user Quit Date: 50 yrs ago service: No Meds Allergies Allergy/AdvReac Type Severity Reaction Status Date / Time [email or web address] [From Myrbetriq] Allergy Hallucinati Verified 03/09/24 13:21 ons Active Medications: Current Medications Acetaminophen (Acetaminophen 325 Mg Tablet) 650 mg PO Q6H PRN PRN Reason: Pain, Mild (Pain Scale 1-3) Last Admin: 03/24/24 03:40 Dose: 650 mg Ascorbic Acid (Ascorbic Acid 500 Mg Tablet) 500 mg PO DAILY [facility] Last Admin: 03/24/24 08:51 Dose: 500 mg Atorvastatin Calcium (Atorvastatin Calcium 40 Mg Tablet) 40 mg PO DAILY [facility] Last Admin: 03/24/24 08:51 Dose: 40 mg Cyanocobalamin (Cyanocobalamin (Vitamin B-12) 1,000 Mcg Tablet) 1,000 mcg PO DAILY [facility] Last Admin: 03/24/24 08:51 Dose: 1,000 mcg Duloxetine HCl (Duloxetine Hcl 30 Mg Capsule.) 30 mg PO DAILY [facility] Last Admin: 03/24/24 08:51 Dose: 30 mg Duloxetine HCl (Duloxetine Hcl 60 Mg Capsule.) 60 mg PO DAILY [facility] Last Admin: 03/24/24 08:50 Dose: 60 mg Gabapentin (Gabapentin 300 Mg Capsule) 300 mg PO DAILY [facility] Last Admin: 03/24/24 08:50 Dose: 300 mg Gabapentin (Gabapentin 300 Mg Capsule) 600 mg PO BEDTIME [facility] Last Admin: 03/23/24 19:56 Dose: 600 mg Glucose (Glucose Gel 15 Gm Gel..Gram.) 15 gm PO Q15M PRN; Protocol PRN Reason: per Hypoglycemia Standing Ord. Dextrose (D10) 250 mls @ 750 mls/hr IV Q15M PRN; Protocol PRN Reason: per Hypoglycemia Standing Ord. Cefazolin Sodium/Dextrose (Ancef) 2 gm in 50 mls @ 100 mls/hr IV PREOP ONE Stop: 03/24/24 13:58 Insulin Human Lispro (Insulin Lispro 100 Unit/Ml 3 Ml Vial) 0 unit SUBCUT QIDACHS [facility]; Protocol Last Admin: 03/24/24 11:32 Dose: Not Given Lamotrigine (Lamotrigine 100 Mg Tablet) 300 mg PO BEDTIME [facility] Last Admin: 03/23/24 19:56 Dose: 300 mg Metoprolol Tartrate (Metoprolol Tartrate 50 Mg Tablet) 50 mg PO BID [facility]; Protocol Last Admin: 03/24/24 08:50 Dose: 50 mg Nystatin (Nystatin Powder 15 Gm Bottle) 1 appl TOPICAL TID [facility]; Protocol Last Admin: 03/24/24 08:53 Dose: Not Given Omeprazole (Omeprazole 40 Mg Capsule.) 40 mg PO DAILY@0630 [facility] Last Admin: 03/24/24 05:49 Dose: Not Given Ondansetron HCl (Ondansetron Hcl 4 Mg/2 Ml Vial) 4 mg IVPUSH Q8H PRN PRN Reason: Nausea Oxycodone HCl (Oxycodone Hcl Immed Release 5 Mg Tablet) 5 mg PO Q4H PRN PRN Reason: Pain, Moderate(Pain Scale 4-6) Last Admin: 03/24/24 08:50 Dose: 5 mg Sodium Chloride (0.9 % Sodium Chloride Flush 3 Ml Syringe) 3 ml IVFLUSH QSHIFT [facility] Last Admin: 03/24/24 08:52 Dose: 3 ml Vitamin D (Cholecalciferol (Vitamin D3) 25 Mcg Tablet) 25 mcg PO DAILY [facility] Last Admin: 03/24/24 08:51 Dose: 25 mcg Home Medications ?Medication ?Instructions ?Recorded ?Confirmed ?Last Taken ?Type ascorbic acid (vitamin C) 500 mg 500 mg PO DAILY 02/24/24 03/09/24 02/24/24 History tablet cholecalciferol (vitamin D3) 25 25 mcg PO DAILY 02/24/24 03/09/24 02/24/24 History mcg (1,000 unit) tablet cyanocobalamin (vitamin B-12) 1,000 mcg PO DAILY 02/24/24 03/09/24 02/24/24 History 1,000 mcg tablet duloxetine 30 mg capsule,delayed 30 mg PO DAILY 02/24/24 03/09/24 02/24/24 History release duloxetine 60 mg capsule,delayed 60 mg PO DAILY 02/24/24 03/09/24 02/24/24 History release gabapentin 300 mg capsule 300 mg PO DAILY 02/24/24 03/09/24 02/24/24 History gabapentin 300 mg capsule 600 mg PO BEDTIME 02/24/24 03/09/24 02/23/24 History lamotrigine 150 mg tablet 300 mg PO BEDTIME 02/24/24 03/09/24 02/23/24 History Exam Height,Weight and Vital Signs: Height 5 ft 7 in Weight 117.3 kg Last Vital Signs Temp 97.8 F 03/24/24 07:02 Pulse 118 H 03/24/24 08:50 Resp 18 03/24/24 07:02 BP 123/77 03/24/24 08:50 Pulse Ox 95 03/24/24 07:02 O2 Del Method Room Air 03/24/24 07:02 O2 Flow Rate 3 03/11/24 19:26 FiO2k 98 03/11/24 17:14 Pertinent Lab Results Pertinent Lab Results: Laboratory Tests 03/09/24 03/09/24 03/10/24 16:10 20:14 06:07 WBC 5.9 RBC 3.64 L Hgb 10.3 L Hct 31.4 L MCV 86.3 MCH 28.3 MCHC 32.8 RDW 16.9 H Plt Count 354 D MPV 9.8 Immature Gran % (Auto) 0.5 H Neut % (Auto) 59.9 Lymph % (Auto) 27.6 [place] % (Auto) 8.1 Eos % (Auto) 3.4 Baso % (Auto) 0.5 Lymph # (Auto) 1.6 [place] # (Auto) 0.5 Eos # (Auto) 0.2 Baso # (Auto) 0.0 Abs Immat Gran (auto) 0.03 Absolute Neuts (auto) 3.5 Absolute Nucleated RBC 0.000 Nucleated RBC % (auto) 0.0 Hold Purple Top Sodium 142 Potassium 3.5 D Chloride 107 Carbon Dioxide 25 Anion Gap 14 BUN 11 Creatinine 0.67 Estim Creat Clear Calc 100.5 Estimated GFR > 60 POC Glucose 85 124 H Fasting Glucose 78 Estimat Average Glucose 108 Hemoglobin A1c % 5.4 Calcium 9.1 03/10/24 03/10/24 03/10/24 07:17 11:00 14:02 WBC RBC Hgb Hct MCV MCH MCHC RDW Plt Count MPV Immature Gran % (Auto) Neut % (Auto) Lymph % (Auto) [place] % (Auto) Eos % (Auto) Baso % (Auto) Lymph # (Auto) [place] # (Auto) Eos # (Auto) Baso # (Auto) Abs Immat Gran (auto) Absolute Neuts (auto) Absolute Nucleated RBC Nucleated RBC % (auto) Hold Purple Top Sodium Potassium Chloride Carbon Dioxide Anion Gap BUN Creatinine Estim Creat Clear Calc Estimated GFR POC Glucose 76 78 76 Fasting Glucose Estimat Average Glucose Hemoglobin A1c % Calcium 03/10/24 03/10/24 03/11/24 17:09 21:16 06:19 WBC 5.9 RBC 3.79 L Hgb 10.7 L Hct 33.5 L MCV 88.4 MCH 28.2 MCHC 31.9 RDW 16.9 H Plt Count 282 MPV 11.5 Immature Gran % (Auto) Neut % (Auto) Lymph % (Auto) [place] % (Auto) Eos % (Auto) Baso % (Auto) Lymph # (Auto) [place] # (Auto) Eos # (Auto) Baso # (Auto) Abs Immat Gran (auto) Absolute Neuts (auto) Absolute Nucleated RBC 0.000 Nucleated RBC % (auto) 0.0 Hold Purple Top SEE NOTE Sodium 144 Potassium 4.1 Chloride 106 Carbon Dioxide 26 Anion Gap 16 BUN 5 L Creatinine 0.65 Estim Creat Clear Calc 103.5 Estimated GFR > 60 POC Glucose 94 93 Fasting Glucose 89 Estimat Average Glucose Hemoglobin A1c % Calcium 9.5 03/11/24 03/11/24 03/11/24 07:47 11:26 13:47 WBC RBC Hgb Hct MCV MCH MCHC RDW Plt Count MPV Immature Gran % (Auto) Neut % (Auto) Lymph % (Auto) [place] % (Auto) Eos % (Auto) Baso % (Auto) Lymph # (Auto) [place] # (Auto) Eos # (Auto) Baso # (Auto) Abs Immat Gran (auto) Absolute Neuts (auto) Absolute Nucleated RBC Nucleated RBC % (auto) Hold Purple Top Sodium Potassium Chloride Carbon Dioxide Anion Gap BUN Creatinine Estim Creat Clear Calc Estimated GFR POC Glucose 89 94 81 Fasting Glucose Estimat Average Glucose Hemoglobin A1c % Calcium 03/11/24 03/11/24 03/12/24 16:23 20:23 05:39 WBC RBC Hgb Hct MCV MCH MCHC RDW Plt Count MPV Immature Gran % (Auto) Neut % (Auto) Lymph % (Auto) [place] % (Auto) Eos % (Auto) Baso % (Auto) Lymph # (Auto) [place] # (Auto) Eos # (Auto) Baso # (Auto) Abs Immat Gran (auto) Absolute Neuts (auto) Absolute Nucleated RBC Nucleated RBC % (auto) Hold Purple Top Sodium 142 Potassium 3.8 Chloride 105 Carbon Dioxide 27 Anion Gap 14 BUN 8 L Creatinine 0.67 Estim Creat Clear Calc 100.5 Estimated GFR > 60 POC Glucose 88 150 H Fasting Glucose 104 H Estimat Average Glucose Hemoglobin A1c % Calcium 9.0 03/12/24 03/12/24 03/12/24 07:16 11:01 16:03 WBC RBC Hgb Hct MCV MCH MCHC RDW Plt Count MPV Immature Gran % (Auto) Neut % (Auto) Lymph % (Auto) [place] % (Auto) Eos % (Auto) Baso % (Auto) Lymph # (Auto) [place] # (Auto) Eos # (Auto) Baso # (Auto) Abs Immat Gran (auto) Absolute Neuts (auto) Absolute Nucleated RBC Nucleated RBC % (auto) Hold Purple Top Sodium Potassium Chloride Carbon Dioxide Anion Gap BUN Creatinine Estim Creat Clear Calc Estimated GFR POC Glucose 79 96 118 H Fasting Glucose Estimat Average Glucose Hemoglobin A1c % Calcium 03/12/24 03/13/24 03/13/24 19:30 05:51 07:07 WBC RBC Hgb Hct MCV MCH MCHC RDW Plt Count MPV Immature Gran % (Auto) Neut % (Auto) Lymph % (Auto) [place] % (Auto) Eos % (Auto) Baso % (Auto) Lymph # (Auto) [place] # (Auto) Eos # (Auto) Baso # (Auto) Abs Immat Gran (auto) Absolute Neuts (auto) Absolute Nucleated RBC Nucleated RBC % (auto) Hold Purple Top SEE NOTE Sodium 145 Potassium 3.7 Chloride 107 Carbon Dioxide 28 Anion Gap 14 BUN 11 Creatinine 0.71 Estim Creat Clear Calc 94.8 Estimated GFR > 60 POC Glucose 122 H 72 Fasting Glucose 81 Estimat Average Glucose Hemoglobin A1c % Calcium 9.8 D 03/13/24 03/13/24 03/13/24 11:06 16:05 19:20 WBC RBC Hgb Hct MCV MCH MCHC RDW Plt Count MPV Immature Gran % (Auto) Neut % (Auto) Lymph % (Auto) [place] % (Auto) Eos % (Auto) Baso % (Auto) Lymph # (Auto) [place] # (Auto) Eos # (Auto) Baso # (Auto) Abs Immat Gran (auto) Absolute Neuts (auto) Absolute Nucleated RBC Nucleated RBC % (auto) Hold Purple Top Sodium Potassium Chloride Carbon Dioxide Anion Gap BUN Creatinine Estim Creat Clear Calc Estimated GFR POC Glucose 91 94 126 H Fasting Glucose Estimat Average Glucose Hemoglobin A1c % Calcium 03/14/24 03/14/24 03/14/24 05:54 07:12 11:09 WBC RBC Hgb Hct MCV MCH MCHC RDW Plt Count MPV Immature Gran % (Auto) Neut % (Auto) Lymph % (Auto) [place] % (Auto) Eos % (Auto) Baso % (Auto) Lymph # (Auto) [place] # (Auto) Eos # (Auto) Baso # (Auto) Abs Immat Gran (auto) Absolute Neuts (auto) Absolute Nucleated RBC Nucleated RBC % (auto) Hold Purple Top SEE NOTE Sodium 146 H Potassium 3.5 Chloride 108 Carbon Dioxide 27 Anion Gap 15 BUN 10 Creatinine 0.70 Estim Creat Clear Calc 96.1 Estimated GFR > 60 POC Glucose 87 100 Fasting Glucose 91 Estimat Average Glucose Hemoglobin A1c % Calcium 9.3 03/14/24 03/14/24 03/15/24 15:49 20:14 06:58 WBC RBC Hgb Hct MCV MCH MCHC RDW Plt Count MPV Immature Gran % (Auto) Neut % (Auto) Lymph % (Auto) [place] % (Auto) Eos % (Auto) Baso % (Auto) Lymph # (Auto) [place] # (Auto) Eos # (Auto) Baso # (Auto) Abs Immat Gran (auto) Absolute Neuts (auto) Absolute Nucleated RBC Nucleated RBC % (auto) Hold Purple Top Sodium Potassium Chloride Carbon Dioxide Anion Gap BUN Creatinine Estim Creat Clear Calc Estimated GFR POC Glucose 90 122 H 78 Fasting Glucose Estimat Average Glucose Hemoglobin A1c % Calcium 03/15/24 03/15/24 03/15/24 11:32 16:15 20:14 WBC RBC Hgb Hct MCV MCH MCHC RDW Plt Count MPV Immature Gran % (Auto) Neut % (Auto) Lymph % (Auto) [place] % (Auto) Eos % (Auto) Baso % (Auto) Lymph # (Auto) [place] # (Auto) Eos # (Auto) Baso # (Auto) Abs Immat Gran (auto) Absolute Neuts (auto) Absolute Nucleated RBC Nucleated RBC % (auto) Hold Purple Top Sodium Potassium Chloride Carbon Dioxide Anion Gap BUN Creatinine Estim Creat Clear Calc Estimated GFR POC Glucose 89 94 119 H Fasting Glucose Estimat Average Glucose Hemoglobin A1c % Calcium 03/16/24 03/16/24 03/16/24 07:05 11:07 16:16 WBC RBC Hgb Hct MCV MCH MCHC RDW Plt Count MPV Immature Gran % (Auto) Neut % (Auto) Lymph % (Auto) [place] % (Auto) Eos % (Auto) Baso % (Auto) Lymph # (Auto) [place] # (Auto) Eos # (Auto) Baso # (Auto) Abs Immat Gran (auto) Absolute Neuts (auto) Absolute Nucleated RBC Nucleated RBC % (auto) Hold Purple Top Sodium Potassium Chloride Carbon Dioxide Anion Gap BUN Creatinine Estim Creat Clear Calc Estimated GFR POC Glucose 84 112 92 Fasting Glucose Estimat Average Glucose Hemoglobin A1c % Calcium 03/16/24 03/17/24 03/17/24 19:39 06:53 11:11 WBC RBC Hgb Hct MCV MCH MCHC RDW Plt Count MPV Immature Gran % (Auto) Neut % (Auto) Lymph % (Auto) [place] % (Auto) Eos % (Auto) Baso % (Auto) Lymph # (Auto) [place] # (Auto) Eos # (Auto) Baso # (Auto) Abs Immat Gran (auto) Absolute Neuts (auto) Absolute Nucleated RBC Nucleated RBC % (auto) Hold Purple Top Sodium Potassium Chloride Carbon Dioxide Anion Gap BUN Creatinine Estim Creat Clear Calc Estimated GFR POC Glucose 105 85 94 Fasting Glucose Estimat Average Glucose Hemoglobin A1c % Calcium 03/17/24 03/17/24 03/18/24 16:19 20:23 07:23 WBC RBC Hgb Hct MCV MCH MCHC RDW Plt Count MPV Immature Gran % (Auto) Neut % (Auto) Lymph % (Auto) [place] % (Auto) Eos % (Auto) Baso % (Auto) Lymph # (Auto) [place] # (Auto) Eos # (Auto) Baso # (Auto) Abs Immat Gran (auto) Absolute Neuts (auto) Absolute Nucleated RBC Nucleated RBC % (auto) Hold Purple Top Sodium Potassium Chloride Carbon Dioxide Anion Gap BUN Creatinine Estim Creat Clear Calc Estimated GFR POC Glucose 113 118 H 79 Fasting Glucose Estimat Average Glucose Hemoglobin A1c % Calcium 03/18/24 03/18/24 03/18/24 11:25 17:43 20:16 WBC RBC Hgb Hct MCV MCH MCHC RDW Plt Count MPV Immature Gran % (Auto) Neut % (Auto) Lymph % (Auto) [place] % (Auto) Eos % (Auto) Baso % (Auto) Lymph # (Auto) [place] # (Auto) Eos # (Auto) Baso # (Auto) Abs Immat Gran (auto) Absolute Neuts (auto) Absolute Nucleated RBC Nucleated RBC % (auto) Hold Purple Top Sodium Potassium Chloride Carbon Dioxide Anion Gap BUN Creatinine Estim Creat Clear Calc Estimated GFR POC Glucose 122 H 107 146 H Fasting Glucose Estimat Average Glucose Hemoglobin A1c % Calcium 03/19/24 03/19/24 03/19/24 07:09 11:17 16:10 WBC RBC Hgb Hct MCV MCH MCHC RDW Plt Count MPV Immature Gran % (Auto) Neut % (Auto) Lymph % (Auto) [place] % (Auto) Eos % (Auto) Baso % (Auto) Lymph # (Auto) [place] # (Auto) Eos # (Auto) Baso # (Auto) Abs Immat Gran (auto) Absolute Neuts (auto) Absolute Nucleated RBC Nucleated RBC % (auto) Hold Purple Top Sodium Potassium Chloride Carbon Dioxide Anion Gap BUN Creatinine Estim Creat Clear Calc Estimated GFR POC Glucose 95 109 104 Fasting Glucose Estimat Average Glucose Hemoglobin A1c % Calcium 03/19/24 03/20/24 03/20/24 20:18 07:21 11:15 WBC RBC Hgb Hct MCV MCH MCHC RDW Plt Count MPV Immature Gran % (Auto) Neut % (Auto) Lymph % (Auto) [place] % (Auto) Eos % (Auto) Baso % (Auto) Lymph # (Auto) [place] # (Auto) Eos # (Auto) Baso # (Auto) Abs Immat Gran (auto) Absolute Neuts (auto) Absolute Nucleated RBC Nucleated RBC % (auto) Hold Purple Top Sodium Potassium Chloride Carbon Dioxide Anion Gap BUN Creatinine Estim Creat Clear Calc Estimated GFR POC Glucose 98 83 101 Fasting Glucose Estimat Average Glucose Hemoglobin A1c % Calcium 03/20/24 03/20/24 03/21/24 15:59 20:28 07:18 WBC RBC Hgb Hct MCV MCH MCHC RDW Plt Count MPV Immature Gran % (Auto) Neut % (Auto) Lymph % (Auto) [place] % (Auto) Eos % (Auto) Baso % (Auto) Lymph # (Auto) [place] # (Auto) Eos # (Auto) Baso # (Auto) Abs Immat Gran (auto) Absolute Neuts (auto) Absolute Nucleated RBC Nucleated RBC % (auto) Hold Purple Top Sodium Potassium Chloride Carbon Dioxide Anion Gap BUN Creatinine Estim Creat Clear Calc Estimated GFR POC Glucose 109 100 91 Fasting Glucose Estimat Average Glucose Hemoglobin A1c % Calcium 03/21/24 03/21/24 03/21/24 11:18 16:08 20:13 WBC RBC Hgb Hct MCV MCH MCHC RDW Plt Count MPV Immature Gran % (Auto) Neut % (Auto) Lymph % (Auto) [place] % (Auto) Eos % (Auto) Baso % (Auto) Lymph # (Auto) [place] # (Auto) Eos # (Auto) Baso # (Auto) Abs Immat Gran (auto) Absolute Neuts (auto) Absolute Nucleated RBC Nucleated RBC % (auto) Hold Purple Top Sodium Potassium Chloride Carbon Dioxide Anion Gap BUN Creatinine Estim Creat Clear Calc Estimated GFR POC Glucose 94 95 142 H Fasting Glucose Estimat Average Glucose Hemoglobin A1c % Calcium 03/22/24 03/22/24 03/22/24 07:22 11:21 16:03 WBC RBC Hgb Hct MCV MCH MCHC RDW Plt Count MPV Immature Gran % (Auto) Neut % (Auto) Lymph % (Auto) [place] % (Auto) Eos % (Auto) Baso % (Auto) Lymph # (Auto) [place] # (Auto) Eos # (Auto) Baso # (Auto) Abs Immat Gran (auto) Absolute Neuts (auto) Absolute Nucleated RBC Nucleated RBC % (auto) Hold Purple Top Sodium Potassium Chloride Carbon Dioxide Anion Gap BUN Creatinine Estim Creat Clear Calc Estimated GFR POC Glucose 82 116 H 93 Fasting Glucose Estimat Average Glucose Hemoglobin A1c % Calcium 03/22/24 03/23/24 03/23/24 20:21 07:23 11:29 WBC RBC Hgb Hct MCV MCH MCHC RDW Plt Count MPV Immature Gran % (Auto) Neut % (Auto) Lymph % (Auto) [place] % (Auto) Eos % (Auto) Baso % (Auto) Lymph # (Auto) [place] # (Auto) Eos # (Auto) Baso # (Auto) Abs Immat Gran (auto) Absolute Neuts (auto) Absolute Nucleated RBC Nucleated RBC % (auto) Hold Purple Top Sodium Potassium Chloride Carbon Dioxide Anion Gap BUN Creatinine Estim Creat Clear Calc Estimated GFR POC Glucose 101 85 98 Fasting Glucose Estimat Average Glucose Hemoglobin A1c % Calcium 03/23/24 03/23/24 03/24/24 16:19 20:04 07:05 WBC RBC Hgb Hct MCV MCH MCHC RDW Plt Count MPV Immature Gran % (Auto) Neut % (Auto) Lymph % (Auto) [place] % (Auto) Eos % (Auto) Baso % (Auto) Lymph # (Auto) [place] # (Auto) Eos # (Auto) Baso # (Auto) Abs Immat Gran (auto) Absolute Neuts (auto) Absolute Nucleated RBC Nucleated RBC % (auto) Hold Purple Top Sodium Potassium Chloride Carbon Dioxide Anion Gap BUN Creatinine Estim Creat Clear Calc Estimated GFR POC Glucose 107 125 H 109 Fasting Glucose Estimat Average Glucose Hemoglobin A1c % Calcium 03/24/24 03/24/24 11:15 12:21 WBC RBC Hgb Hct MCV MCH MCHC RDW Plt Count MPV Immature Gran % (Auto) Neut % (Auto) Lymph % (Auto) [place] % (Auto) Eos % (Auto) Baso % (Auto) Lymph # (Auto) [place] # (Auto) Eos # (Auto) Baso # (Auto) Abs Immat Gran (auto) Absolute Neuts (auto) Absolute Nucleated RBC Nucleated RBC % (auto) Hold Purple Top Sodium Potassium Chloride Carbon Dioxide Anion Gap BUN Creatinine Estim Creat Clear Calc Estimated GFR POC Glucose 99 104 Fasting Glucose Estimat Average Glucose Hemoglobin A1c % Calcium Airway Mallampati Class: III TM Dist: >3cm Neck ROM: Full Assessment and Plan Assessment Anesthesia Assessment: Anesthesia Plan Discussed and Chart Reviewed Final Anesthetic Review Family History of Problems with Anesthesia: No History of Problems with Anesthesia: No NPO: Yes ASA Class: III Final Preanesthetic Review: No Changes in Pt Med Stat, Meds/Allgs Chart Reviewed, Consent Obtained/Reviewed and Anes Risks/Benef Reviewed Patient Risk: Intermediate Procedure Risk: Intermediate Anesthetic Plan Anesthetic Plan: GA Disposition: Standard PACU
--- NOTE | 2024-03-24 13:42 | PC.NURSE ---
repositioned for comfort leg right elevated voidedin the bedpan clear yellow urine duoberm on coccyx and buttock
[2024-03-24 16:24] LABS: Glucose, Whole Blood 111 mg/dL (60-115)
--- NOTE | 2024-03-24 17:19 | PC.NURSE ---
unable to administer Vanco and Zosyn awaiting Cr results
[2024-03-24 17:32] LABS: Creatinine Clr Calc Pharmacy 96.1; Estimated Glomerular Filt Rate > 60
[2024-03-24] MEDS: Piperacillin Sodium/Tazobactam 3.375 GM in 0.9 % Sodium Chloride 50 ML IV ×2 (19:33→23:41)
[2024-03-24] MEDS: lamoTRIgine 100 MG TABLET 300 MG PO (19:39)
[2024-03-24] MEDS: Gabapentin 300 MG CAPSULE 600 MG PO (20:36)
[2024-03-24] MEDS: Nystatin Powder 15 GM BOTTLE 1 APPL TOPICAL (20:39)
[2024-03-24 20:46] LABS: Glucose, Whole Blood 130 mg/dL (60-115)
[2024-03-24] MEDS: vancomycin/NS 2,000 MG/500 ML PLAST..BAG 250 MG IV (20:51)
[2024-03-25] VITALS (13 sets, daily range): BP systolic 98–123; BP diastolic 58–73; PULSE 90–104; RESP 17–22; TEMP 35.8–36.9; O2SAT 96–98
[2024-03-25] MEDS: Acetaminophen 325 MG TABLET 650 MG PO ×2 (03:03→11:53)
[2024-03-25] MEDS: Piperacillin Sodium/Tazobactam 3.375 GM in 0.9 % Sodium Chloride 50 ML IV ×4 (05:11→23:01)
[2024-03-25] MEDS: oxyCODONE HCl Immed Release 5 MG TABLET PO ×4 (05:23→21:08)
[2024-03-25] MEDS: Omeprazole 40 MG CAPSULE.DR PO (05:23)
[2024-03-25 07:40] LABS: Glucose, Whole Blood 101 mg/dL (60-115)
--- NOTE | 2024-03-25 08:58 | PM.PNORT ---
Subjective Subjective Date of Service: 03/25/24 Principal diagnosis: Right ankle fracture/dislocation and peripheral neuropathy Interval history: Right ankle external fixator and pins Patient is resting in bed comfortably Wound care nurse at bedside performing evaluation Physical Exam Vital Signs: Vital Signs: Last Vital Signs Temp 97.8 F 03/25/24 08:00 Pulse 98 03/25/24 08:00 Resp 20 03/25/24 08:00 BP 123/73 03/25/24 08:00 Pulse Ox 97 03/25/24 08:00 O2 Del Method Room Air 03/25/24 08:00 O2 Flow Rate 5 03/24/24 15:00 FiO2 98 03/11/24 17:14 BMI result Body Mass Index 40.5 Const: General: cooperative, healthy appearing and no acute distress Resp: Effort & Inspection: normal respiratory effort and able to speak in complete sentences Cardio: Rate: regular rate Peripheral pulses: Peripheral pulses 2+ throughout GI: Palpation (GI): Soft to palpation Skin: Lesions: no lesions Rashes: no rashes Extrem: Other: pin sites surrounding erythema and purulent drainage Wound breakdown on anterior tibia and dorsal aspect of the foot swelling over right ankle improved but still minimally present over medial mal Procedures Date of Service Date of Service: 03/25/24 Progress Note: A&P Assessment and plan (1) Peripheral neuropathy: Status: Acute (2) Trimalleolar fracture of right ankle: Status: Acute Assessment and Plan: Pin site care Wound care nurse to assist with pin site care and twice daily dressing changes Dakin's ordered NWB LLE Encourage OOB into recliner Continue Zosyn and vanco ID consult placed Resume Lovenox (3) Diabetes mellitus: Status: Acute Time Spent With Patient Time: Total time managing care of this patient today ____ minutes. Quality Stroke Does the patient have a stroke diagnosis?: No VTE Prior VTE?: No VTE Risk Level:: Medical - moderate - high VTE Device Contraindication: N/A - Device Ordered VTE Drug Contraindication: N/A - Med Ordered
--- NOTE | 2024-03-25 09:05 | HO.POSTANES ---
Post Anesthesia Evaluation Post Anesthesia Evaluation Date of Service: 03/25/24 Vital Signs: Vital Signs Temp Pulse Resp BP Pulse Ox O2 Del Method 03/25/24 08:00 97.8 F 98 20 123/73 97 Room Air 03/25/24 06:23 18 03/25/24 04:03 18 03/25/24 03:04 97.0 F 104 H 18 118/73 96 Room Air 03/25/24 00:40 18 03/24/24 23:05 97.5 F 99 18 124/71 94 Room Air Anesthesia: General LMA Mental Status: Awake Pain Control: Satisfactory Nausea/Vomiting: None Hydration: Adequate Anesthesia-Related Issues: No Anes. Related Issues
[2024-03-25] MEDS: Cholecalciferol (Vitamin D3) 25 MCG TABLET PO (09:09)
[2024-03-25] MEDS: Ascorbic Acid 500 MG TABLET PO (09:09)
[2024-03-25] MEDS: DULoxetine HCl 60 MG CAPSULE.DR PO (09:09)
[2024-03-25] MEDS: DULoxetine HCl 30 MG CAPSULE.DR PO (09:09)
[2024-03-25] MEDS: Atorvastatin Calcium 40 MG TABLET PO (09:09)
[2024-03-25] MEDS: Cyanocobalamin (Vitamin B-12) 1,000 MCG TABLET 1000 MCG PO (09:10)
[2024-03-25] MEDS: Gabapentin 300 MG CAPSULE PO (09:10)
[2024-03-25] MEDS: Metoprolol Tartrate 50 MG TABLET PO ×2 (09:10→20:52)
[2024-03-25] MEDS: 0.9 % Sodium Chloride Flush 3 ML SYRINGE IVFLUSH ×2 (09:14→16:16)
[2024-03-25] MEDS: Enoxaparin Sodium 40 MG/0.4 ML SYRINGE SUBCUT (09:26)
[2024-03-25] MEDS: vancomycin HCL 1,250 MG in 0.9 % Sodium Chloride 250 ML 166.67 MG IV (09:30)
[2024-03-25] MEDS: Nystatin Powder 15 GM BOTTLE 1 APPL TOPICAL ×2 (09:40→20:53)
[2024-03-25 10:05] LABS: Estimated Glomerular Filt Rate > 60
[2024-03-25 11:35] LABS: Glucose, Whole Blood 99 mg/dL (60-115)
--- NOTE | 2024-03-25 14:39 | HO.WOUND ---
Wound Consult: New consultation for Right ankle from Ortho team 73yr old?female admitted to [facility] on 02/3024 - See progress notes and H&P for detailed history.? Wound consult placed for right ankle and pins and follow up on Left leg.? Patient agreeable to assessment and photo documentation.? Left plantar 03/25/24 03/25/24 Left Medial Foot/ ankle Left Lateral Ankle Foot 03/25/24 Left Heel 03/25/24 The left lateral ankle is noted for dried scabbed wound bed - patient reports it is from scratching. Cleansed and foam dressing applied. partial thickness tissue loss dried pale pink wound bed. The Left medial and plantar blisters / leg wounds appear to be related to the device attached to her Right ankle post Orthopedic surgery. The area was cleansed and foam dressing applied to aid in protection from ortho pins and screws and to allow for moist wound healing. The heel was assessed for no injury and she denies pain - foam dressing applied for prevention. Bilateral great toes are noted for missing nails and scabbed over tissue - no drainage noted. Patient reports they are a result of her ripping out her toenails because they caused her discomfort in her shoes prior to coming to hospital. When asked how she removed them she reported with tools. There are no s/s of active infection at this time. The scabs are stable - there is limited topical intervention to apply at this time. should the scabs soften and drainage I would recommend xeroform and gauze dressing but pt refused at this time. The sacrum and buttock were assessed - there is no injury noted - she had a preventative sacral foam in place which was changed. No pressure or moisture injuries noted at this time. The Right Ankle with external fixator and pins in place is noted for serval wounds and concerning swelling and erythema. The tibal wound and a dorsal foot wound that Dr. Paulino at bedside reported were original pin sites but have since been removed due to infection and were debrided in the OR. Both sites are moist with marbled wound bed of adherent yellow slough and red tissue. The tibial site is not noted for erythema however the dorsal site is noted for swelling and red erythema - Dr. Paulino aware and observed at bedside. Recommend Hydrofiber AG for moisture management and antimicrobial properties. He was agreeable to this plan and dressing applied. The Medial and Lateral Ankle pin / fixator is noted for mild foul odor with yellow allison drainage to the pin sites. There is significant swelling and red erythema noted. The pin sites are larger than the pin opening concerning for advancing wound with an appreciable depth of 4cm. Dr Paulino in agreement with Dakins packing to the medial and lateral sites. When Dakins solution arrived packing applied. If wound being to improve can consider packing with Hydrofiber AG for moisturtemanagemtn and antimicrobial properties. Overall the ankle wounds are concerning at this time. Right Lateral Ankle Inpatient wound care nurse will follow up early next week. Recommendations: 1. Turn and Reposition every 2 hours and as needed for patient comfort.? Use pillows or wedges to support off loading positions. 2. Off Load all bony prominences with use of pillows and heel boots if needed.? Apply Preventative foams where needed. ? 3. Monitor for incontinence and moisture control, use barrier creams when needed for prevention and treatment. 4. Provide adequate and supplemental nutrition.? 5. Continue low air loss mattress. 6. Maintain blood glucose levels per Providers order. 7. Left ankle and Heel - Cleanse with Ns moistgauze, apply skin prep allow to dry. Cover heel and wounds with foam dressing peel back and assess Q shift and change every 3 days. Off load heel off of bed surface. 8. Right Tibial and Dorsal Foot - Cleanse and irrigate with NS, pat Dry. Apply skin prep to periwound lightly pack wound bed to fill space with durafiber AG cover with foam dressing. Change every other day. 9. Medial and Lateral Ankle Sites - Irrigate and cleanse with Dakins solution. apply skin prep to periwound. Lightly pack wound around pin site with Dakins moist gauze, be sure to leave wick for easy removal. Cover with dry gauze and gauze wrap. Change twice a day. Re-consult wound care Nurse for wound deterioration or wound changes
[2024-03-25 16:29] LABS: Glucose, Whole Blood 88 mg/dL (60-115)
[2024-03-25 20:39] LABS: Vancomycin Random 14.2 mcg/mL (15-20)
[2024-03-25 20:48] LABS: Glucose, Whole Blood 123 mg/dL (60-115)
--- NOTE | 2024-03-25 20:50 | HE.PHANOTE ---
RE: vanco PAtient got 2g load and one dose of 1250mg; random came back at 14.2mg/L. Current order for 1000mg Q12H yields a predicted AUC of 559mg/L, trough of 17.5. Next level to be drawn after two doses 03/26 @1999
[2024-03-25] MEDS: lamoTRIgine 100 MG TABLET 300 MG PO (20:52)
[2024-03-25] MEDS: Gabapentin 300 MG CAPSULE 600 MG PO (20:53)
--- NOTE | 2024-03-25 20:55 | PC.NURSE ---
patient refused drsg change because of how the Dakins solutions smell.
[2024-03-25] MEDS: vancomycin HCL 1,000 MG in 0.9 % Sodium Chloride 250 ML 270 MG IV (21:09)
--- NOTE | 2024-03-25 22:30 | W.PM.IDCN ---
History of Present Illness Data of Consult Service Date: 03/25/24 Requesting physician: Angelica Trevizo Primary Care Provider: DO NICHOLAS Beltran Reason for consult: infected pin tract post trimalleolar fracture ankle She presents with purulence area from pin. She has RLE trimalleolar fracture ankle on 02/23 while getting out of car and doesnt feel area due to neuropathy. Cultures are pending. Review of Systems Review of Systems: Yes all other systems are reviewed and are negative PMFSH Past Medical History Medical History Elevated cholesterol Anxiety SELMA treated with BiPAP Diabetic ulcer of right foot Atrial fibrillation Borderline personality disorder Major depressive disorder Diabetes mellitus Chronic anticoagulation Family History Family history: reviewed and not pertinent Surgical History Surgical History Hx of esophagogastroduodenoscopy Hx of colonoscopy History of carpal tunnel release of both wrists Hx of bilateral cataract extraction Hx of bilateral breast reduction surgery Hx of hysterectomy Social History Social History Household Members: None Housing: Shelter Housing Other:: [facility] Do you presently have visiting nurse or other home services: Yes Unable to assess alcohol history related to: Unable to respond 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 Patient Tobacco Use Status: Former Tobacco user Quit Date: 50 yrs ago service: No Meds Allergies Allergy/AdvReac Type Severity Reaction Status Date / Time [email or web address] [From Myrbetriq] Allergy Hallucinati Verified 03/09/24 13:21 ons Active Medications: Current Medications Acetaminophen (Acetaminophen 325 Mg Tablet) 650 mg PO Q6H PRN PRN Reason: Pain, Mild (Pain Scale 1-3) Last Admin: 03/25/24 11:53 Dose: 650 mg Ascorbic Acid (Ascorbic Acid 500 Mg Tablet) 500 mg PO DAILY [facility] Last Admin: 03/25/24 09:09 Dose: 500 mg Atorvastatin Calcium (Atorvastatin Calcium 40 Mg Tablet) 40 mg PO DAILY [facility] Last Admin: 03/25/24 09:09 Dose: 40 mg Cyanocobalamin (Cyanocobalamin (Vitamin B-12) 1,000 Mcg Tablet) 1,000 mcg PO DAILY [facility] Last Admin: 03/25/24 09:10 Dose: 1,000 mcg Duloxetine HCl (Duloxetine Hcl 30 Mg Capsule.) 30 mg PO DAILY [facility] Last Admin: 03/25/24 09:09 Dose: 30 mg Duloxetine HCl (Duloxetine Hcl 60 Mg Capsule.) 60 mg PO DAILY [facility] Last Admin: 03/25/24 09:09 Dose: 60 mg Enoxaparin Sodium (Enoxaparin Sodium 40 Mg/0.4 Ml Syringe) 40 mg SUBCUT Q24H [facility] Last Admin: 03/25/24 09:26 Dose: 40 mg Gabapentin (Gabapentin 300 Mg Capsule) 300 mg PO DAILY [facility] Last Admin: 03/25/24 09:10 Dose: 300 mg Gabapentin (Gabapentin 300 Mg Capsule) 600 mg PO BEDTIME [facility] Last Admin: 03/25/24 20:53 Dose: 600 mg Glucose (Glucose Gel 15 Gm Gel..Gram.) 15 gm PO Q15M PRN; Protocol PRN Reason: per Hypoglycemia Standing Ord. Dextrose (D10) 250 mls @ 750 mls/hr IV Q15M PRN; Protocol PRN Reason: per Hypoglycemia Standing Ord. Vancomycin HCl 1,000 mg/ (Sodium Chloride) 270 mls @ 270 mls/hr IV Q12H [facility] Last Admin: 03/25/24 21:09 Dose: 270 mls/hr Piperacillin Sod/Tazobactam (Sod 3.375 gm/ Sodium Chloride) 50 mls @ 100 mls/hr IV Q6H [facility] Last Infusion: 03/25/24 16:52 Dose: Infused Insulin Human Lispro (Insulin Lispro 100 Unit/Ml 3 Ml Vial) 0 unit SUBCUT QIDACHS [facility]; Protocol Last Admin: 03/25/24 20:50 Dose: Not Given Lamotrigine (Lamotrigine 100 Mg Tablet) 300 mg PO BEDTIME [facility] Last Admin: 03/25/24 20:52 Dose: 300 mg Metoprolol Tartrate (Metoprolol Tartrate 50 Mg Tablet) 50 mg PO BID [facility]; Protocol Last Admin: 03/25/24 20:52 Dose: 50 mg Nystatin (Nystatin Powder 15 Gm Bottle) 1 appl TOPICAL TID [facility]; Protocol Last Admin: 03/25/24 20:53 Dose: 1 appl Omeprazole (Omeprazole 40 Mg Capsule.) 40 mg PO DAILY@0630 [facility] Last Admin: 03/25/24 05:23 Dose: 40 mg Ondansetron HCl (Ondansetron Hcl 4 Mg/2 Ml Vial) 4 mg IVPUSH Q8H PRN PRN Reason: Nausea Oxycodone HCl (Oxycodone Hcl Immed Release 5 Mg Tablet) 5 mg PO Q4H PRN PRN Reason: Pain, Moderate(Pain Scale 4-6) Last Admin: 03/25/24 21:08 Dose: 5 mg Pharmacy Consult (Consult Rx Vancomycin Dosing) 1 each MISCELLANE DAILY PRN PRN Reason: Consult order Sodium Chloride (0.9 % Sodium Chloride Flush 3 Ml Syringe) 3 ml IVFLUSH QSHIFT [facility] Last Admin: 03/25/24 16:16 Dose: 3 ml Sodium Hypochlorite (Sodium Hypochlorite 0.25% 473 Ml Solution) 1 appl TOPICAL BID [facility] Last Admin: 03/25/24 20:54 Dose: Not Given Vitamin D (Cholecalciferol (Vitamin D3) 25 Mcg Tablet) 25 mcg PO DAILY [facility] Last Admin: 03/25/24 09:09 Dose: 25 mcg Home Medications ?Medication ?Instructions ?Recorded ?Confirmed ?Last Taken ?Type ascorbic acid (vitamin C) 500 mg 500 mg PO DAILY 02/24/24 03/09/24 02/24/24 History tablet cholecalciferol (vitamin D3) 25 25 mcg PO DAILY 02/24/24 03/09/24 02/24/24 History mcg (1,000 unit) tablet cyanocobalamin (vitamin B-12) 1,000 mcg PO DAILY 02/24/24 03/09/24 02/24/24 History 1,000 mcg tablet duloxetine 30 mg capsule,delayed 30 mg PO DAILY 02/24/24 03/09/24 02/24/24 History release duloxetine 60 mg capsule,delayed 60 mg PO DAILY 02/24/24 03/09/24 02/24/24 History release gabapentin 300 mg capsule 300 mg PO DAILY 02/24/24 03/09/24 02/24/24 History gabapentin 300 mg capsule 600 mg PO BEDTIME 02/24/24 03/09/24 02/23/24 History lamotrigine 150 mg tablet 300 mg PO BEDTIME 02/24/24 03/09/24 02/23/24 History Physical Exam Vital Signs: Vital Signs: Last Vital Signs Temp 96.4 F L 03/25/24 19:29 Pulse 104 H 03/25/24 20:52 Resp 21 H 03/25/24 22:24 BP 105/58 L 03/25/24 20:52 Pulse Ox 96 03/25/24 19:29 O2 Del Method Room Air 03/25/24 19:29 O2 Flow Rate 5 03/24/24 15:00 FiO2 98 03/11/24 17:14 BMI result Body Mass Index 40.5 Const: General: cooperative HEENT: Head: Yes normal to inspection Face and sinus: Yes normal facial exam Mouth: Normal oral and palatal mucosa present Teeth and gingiva: dentition normal Eyes: General: appearance normal, both eyes and all related structures Pupils: Equal, round and reactive pupils present Resp: Effort & Inspection: normal respiratory effort Cardio: Rate: regular rate Rhythm: regular rhythm GI: Palpation (GI): Soft to palpation and nontender : General: Yes no CVA tenderness Back/Spine/Pelvis: Back: no CVA tenderness Skin: General skin exam: no rashes or lesions noted Neuro: General: moves all extremities Cranial nerves: Yes Equal, round and reactive pupils present Extrem: Other: RLE wrapped ,has fixator General: Yes normal to inspection Psych: Appearance: grossly normal Results Labs 03/11/24 06:19 03/25/24 09:24 Labs: BMP 03/25/24 09:24 Creatinine 0.74 Assessment and Plan (1) Peripheral neuropathy: Status: Acute (2) Trimalleolar fracture of right ankle: Qualifiers: Encounter type: subsequent encounter Fracture type: closed Fracture healing: with nonunion Qualified Code(s): S82.851K - Displaced trimalleolar fracture of right lower leg, subsequent encounter for closed fracture with nonunion Status: Acute Plan Area with breakdown and purulence pin tract Possible gram negative or gram positive Await final cultures pin tract. Continue Vancomyin and Zosyn for now and hopefully some results tomorrow.
[2024-03-26] VITALS (10 sets, daily range): BP systolic 106–132; BP diastolic 63–87; PULSE 68–98; RESP 12–25; TEMP 36–36.7; O2SAT 95–98
[2024-03-26] MEDS: Piperacillin Sodium/Tazobactam 3.375 GM in 0.9 % Sodium Chloride 50 ML IV ×4 (06:32→23:01)
[2024-03-26] MEDS: Omeprazole 40 MG CAPSULE.DR PO (06:32)
[2024-03-26] MEDS: Gabapentin 300 MG CAPSULE PO (07:25)
[2024-03-26] MEDS: oxyCODONE HCl Immed Release 5 MG TABLET PO ×3 (07:25→22:34)
[2024-03-26] MEDS: Enoxaparin Sodium 40 MG/0.4 ML SYRINGE SUBCUT (07:25)
[2024-03-26] MEDS: Cholecalciferol (Vitamin D3) 25 MCG TABLET PO (07:26)
[2024-03-26] MEDS: Ascorbic Acid 500 MG TABLET PO (07:26)
[2024-03-26] MEDS: Cyanocobalamin (Vitamin B-12) 1,000 MCG TABLET 1000 MCG PO (07:26)
[2024-03-26] MEDS: DULoxetine HCl 60 MG CAPSULE.DR PO (07:26)
[2024-03-26] MEDS: Metoprolol Tartrate 50 MG TABLET PO ×2 (07:26→21:50)
[2024-03-26] MEDS: DULoxetine HCl 30 MG CAPSULE.DR PO (07:26)
[2024-03-26] MEDS: Atorvastatin Calcium 40 MG TABLET PO (07:26)
[2024-03-26] MEDS: 0.9 % Sodium Chloride Flush 3 ML SYRINGE IVFLUSH ×4 (07:27→23:03)
[2024-03-26 07:39] LABS: Glucose, Whole Blood 94 mg/dL (60-115)
[2024-03-26 08:11] LABS: Creatinine Clr Calc Pharmacy 97.6; Estimated Glomerular Filt Rate > 60
--- NOTE | 2024-03-26 08:18 | P.PNOP_ITS ---
Subjective Subjective Date of Service: 03/26/24 Principal diagnosis: Right ankle fracture/dislocation and peripheral neuropathy Interval history: Right ankle external fixator and pins Patient is resting in bed with right leg under left leg with knee bent and press ure on right ankle Physical Exam Vital Signs: Vital Signs: Last Vital Signs Temp 96.8 F 03/26/24 07:38 Pulse 95 03/26/24 07:38 Resp 18 03/26/24 07:38 BP 132/87 03/26/24 07:38 Pulse Ox 96 03/26/24 07:38 O2 Del Method Room Air 03/26/24 07:38 O2 Flow Rate 5 03/24/24 15:00 FiO2 98 03/11/24 17:14 BMI result Body Mass Index 40.5 Const: General: cooperative, healthy appearing and no acute distress Resp: Effort & Inspection: normal respiratory effort and able to speak in complete sentences Cardio: Rate: regular rate Peripheral pulses: Peripheral pulses 2+ throughout GI: Palpation (GI): Soft to palpation Skin: Lesions: no lesions Rashes: no rashes Extrem: Other: pin sites surrounding erythema and purulent drainage Wound breakdown on anterior tibia and dorsal aspect of the foot swelling over right ankle improved but still minimally present over medial mal Procedures Date of Service Date of Service: 03/26/24 Progress Note: A&P Assessment and plan (1) Peripheral neuropathy: Status: Acute (2) Trimalleolar fracture of right ankle: Status: Acute Assessment and Plan: Pin site care Wound care nurse to assist with pin site care and twice daily dressing changes Dakin's ordered NWB LLE Encourage OOB into recliner Continue Zosyn and vanco Lovenox ID Plan: Plan Area with breakdown and purulence pin tract Possible gram negative or gram positive Await final cultures pin tract. Continue Vancomyin and Zosyn for now and hopefully some results tomorrow. (3) Diabetes mellitus: Status: Acute Time Spent With Patient Time: Total time managing care of this patient today ____ minutes. Quality Stroke Does the patient have a stroke diagnosis?: No VTE Prior VTE?: No VTE Risk Level:: Medical - moderate - high VTE Device Contraindication: N/A - Device Ordered VTE Drug Contraindication: N/A - Med Ordered
[2024-03-26] MEDS: vancomycin HCL 1,000 MG in 0.9 % Sodium Chloride 250 ML 270 MG IV ×2 (11:26→21:49)
[2024-03-26 11:50] LABS: Glucose, Whole Blood 96 mg/dL (60-115)
--- NOTE | 2024-03-26 13:43 | MHC.CM.PN ---
Patient is not medically cleared for discharge. Cultures are pending. DP DBV via BLS. A clinical update has been sent to the facility. They continue to follow.
[2024-03-26 16:15] LABS: Glucose, Whole Blood 89 mg/dL (60-115)
--- NOTE | 2024-03-26 17:22 | PC.NURSE ---
pt refusing fall risk interventions. Stating i'm going to sit on the edge of the bed if I want to eat. Attempting to educate however patient refusing to listen to staff for safety.
--- NOTE | 2024-03-26 18:31 | PC.NURSE ---
Dressing on Right Foot CDI
--- NOTE | 2024-03-26 19:00 | W.PM.OPN ---
Operative Note Operative Note Date of Service: 03/24/24 Narrative: Date of Service: 03/24/24 Pre-op diagnosis: right ankle fracture/dislocation Post-op diagnosis: same Procedure: debridement pin sites and removal of metatarsal pins Surgeon: Santiago Paulino MD Anesthesia: GLMA Was an [employer] used for this Procedure?: No Estimated blood loss (mL): 20 Pathology: none sent Condition: stable Disposition: PACU Patient was brought to the operating room placed supine on the operative table. Her right lower extremity was prepped and draped in standard sterile fashion. Time-out was called to identify proper site proper procedure proper surgeon. IV antibiotics were administered. I began by examining the external fixator. The proximal tibial pins were intact with no evidence of wound breakdown with well healed skin adjacent to the pins. The metatarsal pins however were markedly loose and were removed by hand. There was discharge from the proximal metatarsal pin and I debrided this and it revealed a 1 cm long area skin breakdown without exposed bone. There was no erythema here. I curetted this area out with a small curette and irrigated both pin sites copiously. I then turned my attention to the calcaneal pin. Over the medial calcaneal pin there was some mild discharge and the skin adjacent to the ex fix pin was irritated but there was no alvaro discharge. On the lateral side I examined the pin site and it was notable for erythema and discharge. I curetted this out and did reveal tracking down to the bone with loss of skin proximally half a cm circumferentially around the pin. I debrided this fall necrotic tissue and irrigated copiously. Given these findings I was extremely hesitant to incise the skin and place hardware. X-rays revealed a displaced but located ankle joint. The decision was made then to place the pin sites and with sterile dressing once they were irrigated copiously. She would was awakened and brought to recovery room in stable condition there were no known complications.
[2024-03-26 20:23] LABS: Glucose, Whole Blood 116 mg/dL (60-115)
[2024-03-26 20:34] LABS: Vancomycin Random 15.2 mcg/mL (15-20)
[2024-03-26] MEDS: lamoTRIgine 100 MG TABLET 300 MG PO (21:49)
[2024-03-26] MEDS: Gabapentin 300 MG CAPSULE 600 MG PO (21:49)
[2024-03-27] VITALS (7 sets, daily range): BP systolic 118–148; BP diastolic 53–88; PULSE 82–108; RESP 16–22; TEMP 36–36.4; O2SAT 96–100
[2024-03-27] MEDS: Piperacillin Sodium/Tazobactam 3.375 GM in 0.9 % Sodium Chloride 50 ML IV ×4 (05:00→22:55)
[2024-03-27] MEDS: Omeprazole 40 MG CAPSULE.DR PO (05:55)
[2024-03-27 06:33] LABS: Estimated Glomerular Filt Rate > 60
[2024-03-27 07:31] LABS: Glucose, Whole Blood 88 mg/dL (60-115)
[2024-03-27] MEDS: Atorvastatin Calcium 40 MG TABLET PO (08:44)
[2024-03-27] MEDS: Cyanocobalamin (Vitamin B-12) 1,000 MCG TABLET 1000 MCG PO (08:45)
[2024-03-27] MEDS: oxyCODONE HCl Immed Release 5 MG TABLET PO ×3 (08:45→21:53)
[2024-03-27] MEDS: Ascorbic Acid 500 MG TABLET PO (08:45)
[2024-03-27] MEDS: Metoprolol Tartrate 50 MG TABLET PO ×2 (08:45→21:54)
[2024-03-27] MEDS: DULoxetine HCl 30 MG CAPSULE.DR PO (08:45)
[2024-03-27] MEDS: Gabapentin 300 MG CAPSULE PO (08:45)
[2024-03-27] MEDS: DULoxetine HCl 60 MG CAPSULE.DR PO (08:45)
[2024-03-27] MEDS: Cholecalciferol (Vitamin D3) 25 MCG TABLET PO (08:46)
[2024-03-27] MEDS: Enoxaparin Sodium 40 MG/0.4 ML SYRINGE SUBCUT (08:46)
--- NOTE | 2024-03-27 09:48 | PM.PNORT ---
Subjective Subjective Date of Service: 03/27/24 Principal diagnosis: Right ankle fracture/dislocation and peripheral neuropathy Interval history: Right ankle external fixator and pins Patient is resting in bed comfortably Reports no pain No additional complaints Physical Exam Vital Signs: Vital Signs: Last Vital Signs Temp 97.5 F 03/27/24 07:40 Pulse 95 03/27/24 08:45 Resp 16 03/27/24 07:40 BP 148/77 H 03/27/24 08:45 Pulse Ox 100 03/27/24 07:40 O2 Del Method Room Air 03/27/24 07:40 O2 Flow Rate 5 03/24/24 15:00 FiO2 98 03/11/24 17:14 BMI result Body Mass Index 40.5 Const: General: cooperative, healthy appearing and no acute distress Resp: Effort & Inspection: normal respiratory effort and able to speak in complete sentences Cardio: Rate: regular rate Peripheral pulses: Peripheral pulses 2+ throughout GI: Palpation (GI): Soft to palpation Skin: Lesions: no lesions Rashes: no rashes Extrem: Other: pin sites surrounding erythema and purulent drainage Wound breakdown on anterior tibia and dorsal aspect of the foot swelling over right ankle improved but still minimally present over medial mal Procedures Date of Service Date of Service: 03/27/24 Progress Note: A&P Assessment and plan (1) Peripheral neuropathy: Status: Acute (2) Trimalleolar fracture of right ankle: Status: Acute Assessment and Plan: Pin site care Wound care nurse to assist with pin site care and twice daily dressing changes Dakin's ordered NWB LLE Encourage OOB into recliner Okay to sit on EOB Continue Zosyn and vanco Lovenox ID Plan: Plan Area with breakdown and purulence pin tract Possible gram negative or gram positive Await final cultures pin tract. Continue Vancomyin and Zosyn for now and hopefully some results tomorrow. (3) Diabetes mellitus: Status: Acute Time Spent With Patient Time: Total time managing care of this patient today ____ minutes. Quality Stroke Does the patient have a stroke diagnosis?: No VTE Prior VTE?: No VTE Risk Level:: Medical - moderate - high VTE Device Contraindication: N/A - Device Ordered VTE Drug Contraindication: N/A - Med Ordered
[2024-03-27] MEDS: vancomycin HCL 1,000 MG in 0.9 % Sodium Chloride 250 ML 270 MG IV ×2 (10:35→21:47)
[2024-03-27 11:17] LABS: Glucose, Whole Blood 120 mg/dL (60-115)
[2024-03-27 16:06] LABS: Glucose, Whole Blood 98 mg/dL (60-115)
[2024-03-27] MEDS: 0.9 % Sodium Chloride Flush 3 ML SYRINGE IVFLUSH ×2 (16:16→21:47)
--- NOTE | 2024-03-27 18:00 | PC.NURSE ---
Pt called orth services reporting her EX Fix has fallen off. Abran Trevizo called this physician underwriter asking what was the situation. I assured Abran Trevizo that the pt's Ex Fix was intact and there was no incident. I relayed to the pt that I spoke with the Pa assured her everything was intact and that Abran Trevizo would see her in the morning , Pt seemed to be mixed up with the sequence of events and couldn't understand how the PA knew to call me .I offered the pt something for pain she declined said she wasnt in pain and gave her reassurance that her Ex Fix was intact . Pt contniues to be somewhat confused . will monitor
[2024-03-27 20:31] LABS: Glucose, Whole Blood 94 mg/dL (60-115)
[2024-03-27 20:31] LABS: Vancomycin Random 14.8 mcg/mL (15-20)
[2024-03-27] MEDS: Gabapentin 300 MG CAPSULE 600 MG PO (21:54)
[2024-03-27] MEDS: lamoTRIgine 100 MG TABLET 300 MG PO (21:54)
[2024-03-28] VITALS (9 sets, daily range): BP systolic 125–150; BP diastolic 69–90; PULSE 78–97; RESP 16–20; TEMP 36.1–36.9; O2SAT 93–98
[2024-03-28] MEDS: oxyCODONE HCl Immed Release 5 MG TABLET PO ×3 (02:11→13:43)
--- NOTE | 2024-03-28 03:00 | PC.NURSE ---
Pt initially been refusing care,pt also refused meds when offered,pt noted to be depressed and verbalized that no one has been listening to her in terms of her care and her discomforts,pt became weepy during conversation,approached and encouraged compliance for meds and care, reassured that concerns will be addressed and be reported, pt complied after, care rendered, meds given, went to sleep after.
[2024-03-28] MEDS: Piperacillin Sodium/Tazobactam 3.375 GM in 0.9 % Sodium Chloride 50 ML IV ×4 (05:26→23:27)
[2024-03-28] MEDS: Omeprazole 40 MG CAPSULE.DR PO (06:01)
[2024-03-28 06:36] LABS: Creatinine Clr Calc Pharmacy 96.1; Estimated Glomerular Filt Rate > 60
[2024-03-28 07:13] LABS: Glucose, Whole Blood 78 mg/dL (60-115)
[2024-03-28] MEDS: 0.9 % Sodium Chloride Flush 3 ML SYRINGE IVFLUSH ×2 (08:05→17:21)
[2024-03-28] MEDS: Enoxaparin Sodium 40 MG/0.4 ML SYRINGE SUBCUT (08:06)
[2024-03-28] MEDS: Atorvastatin Calcium 40 MG TABLET PO (08:07)
[2024-03-28] MEDS: Metoprolol Tartrate 50 MG TABLET PO ×2 (08:07→22:17)
[2024-03-28] MEDS: DULoxetine HCl 30 MG CAPSULE.DR PO (08:07)
[2024-03-28] MEDS: Ascorbic Acid 500 MG TABLET PO (08:07)
[2024-03-28] MEDS: Cyanocobalamin (Vitamin B-12) 1,000 MCG TABLET 1000 MCG PO (08:07)
[2024-03-28] MEDS: DULoxetine HCl 60 MG CAPSULE.DR PO (08:08)
[2024-03-28] MEDS: Gabapentin 300 MG CAPSULE PO (08:08)
[2024-03-28] MEDS: Cholecalciferol (Vitamin D3) 25 MCG TABLET PO (08:08)
--- NOTE | 2024-03-28 09:14 | PM.PNORT ---
Subjective Subjective Date of Service: 03/28/24 Principal diagnosis: Right ankle fracture/dislocation and peripheral neuropathy Interval history: Right ankle external fixator and pins intact Patient is resting in bed comfortably Reports no pain Patient is upset because the patient contacted the ortho on-call service yesterday evening reporting her external fixator had fallen off. PA ammonia refrigeration worker reached out to the nurse to evaluate the patient, the ex-fix was in place and this was relayed to the ammonia refrigeration worker provider. Instructions to reassure were provided. -Event note also placed by nurse at this time Physical Exam Vital Signs: Vital Signs: Last Vital Signs Temp 96.9 F 03/28/24 07:30 Pulse 88 03/28/24 08:07 Resp 18 03/28/24 07:30 BP 150/74 H 03/28/24 08:07 Pulse Ox 98 03/28/24 07:30 O2 Del Method Room Air 03/28/24 07:30 O2 Flow Rate 5 03/24/24 15:00 FiO2 98 03/11/24 17:14 BMI result Body Mass Index 40.5 Const: General: cooperative, healthy appearing and no acute distress Resp: Effort & Inspection: normal respiratory effort and able to speak in complete sentences Cardio: Rate: regular rate Peripheral pulses: Peripheral pulses 2+ throughout GI: Palpation (GI): Soft to palpation Skin: Lesions: no lesions Rashes: no rashes Extrem: Other: right ankle pin sites surrounding erythema and purulent drainage Wound breakdown on anterior tibia and dorsal aspect of the foot swelling over right ankle improved but still minimally present over medial mal Procedures Date of Service Date of Service: 03/28/24 Progress Note: A&P Assessment and plan (1) Peripheral neuropathy: Status: Acute (2) Trimalleolar fracture of right ankle: Status: Acute Assessment and Plan: Pin site care Wound care nurse to assist with pin site care and twice daily dressing changes Dakin's ordered NWB LLE Encourage OOB into recliner Okay to sit on EOB Continue Zosyn and vanco Lovenox ID Plan: Plan Area with breakdown and purulence pin tract Possible gram negative or gram positive Await final cultures pin tract. Continue Vancomyin and Zosyn for now and hopefully some results tomorrow. (3) Diabetes mellitus: Status: Acute Time Spent With Patient Time: Total time managing care of this patient today ____ minutes. Quality Stroke Does the patient have a stroke diagnosis?: No VTE Prior VTE?: No VTE Risk Level:: Medical - moderate - high VTE Device Contraindication: N/A - Device Ordered VTE Drug Contraindication: N/A - Med Ordered
[2024-03-28 11:18] LABS: Glucose, Whole Blood 107 mg/dL (60-115)
[2024-03-28] MEDS: vancomycin HCL 1,000 MG in 0.9 % Sodium Chloride 250 ML 270 MG IV ×2 (11:55→22:20)
[2024-03-28 16:09] LABS: Glucose, Whole Blood 91 mg/dL (60-115)
--- NOTE | 2024-03-28 18:51 | PC.NURSE ---
Pt. refused dsg change, bath, reposition, and took the tele monitor off, provider notified.
[2024-03-28 20:26] LABS: Vancomycin Random 16.4 mcg/mL (15-20)
[2024-03-28 20:40] LABS: Glucose, Whole Blood 129 mg/dL (60-115)
[2024-03-28] MEDS: lamoTRIgine 100 MG TABLET 300 MG PO (22:17)
[2024-03-28] MEDS: Gabapentin 300 MG CAPSULE 600 MG PO (22:17)
[2024-03-29] VITALS (7 sets, daily range): BP systolic 126–163; BP diastolic 72–96; PULSE 61–93; RESP 16–18; TEMP 36.2–36.8; O2SAT 96–98
[2024-03-29] MEDS: Piperacillin Sodium/Tazobactam 3.375 GM in 0.9 % Sodium Chloride 50 ML IV ×4 (05:17→23:15)
[2024-03-29 06:15] LABS: Creatinine Clr Calc Pharmacy 92.2; Estimated Glomerular Filt Rate > 60
[2024-03-29] MEDS: Dextrose 10 % 250 ML 750 ML IV (07:29)
[2024-03-29 07:35] LABS: Glucose, Whole Blood 67 mg/dL (60-115)
[2024-03-29 08:25] LABS: Glucose, Whole Blood 120 mg/dL (60-115)
--- NOTE | 2024-03-29 08:47 | MHC.CM.PN ---
JUSTINBANNERMCKENZIE UPDATED. CASE MANAGEMENT FOLLOWING FOR DISCHARGE PLAN.
[2024-03-29] MEDS: Enoxaparin Sodium 40 MG/0.4 ML SYRINGE SUBCUT (09:07)
[2024-03-29] MEDS: Cholecalciferol (Vitamin D3) 25 MCG TABLET PO (09:08)
[2024-03-29] MEDS: Metoprolol Tartrate 50 MG TABLET PO ×2 (09:08→21:00)
[2024-03-29] MEDS: DULoxetine HCl 60 MG CAPSULE.DR PO (09:08)
[2024-03-29] MEDS: Gabapentin 300 MG CAPSULE PO (09:08)
[2024-03-29] MEDS: DULoxetine HCl 30 MG CAPSULE.DR PO (09:08)
[2024-03-29] MEDS: Ascorbic Acid 500 MG TABLET PO (09:09)
[2024-03-29] MEDS: Cyanocobalamin (Vitamin B-12) 1,000 MCG TABLET 1000 MCG PO (09:09)
[2024-03-29] MEDS: Atorvastatin Calcium 40 MG TABLET PO (09:09)
[2024-03-29] MEDS: Omeprazole 40 MG CAPSULE.DR PO (09:09)
[2024-03-29] MEDS: 0.9 % Sodium Chloride Flush 3 ML SYRINGE IVFLUSH ×3 (09:13→21:03)
--- NOTE | 2024-03-29 09:47 | PC.NURSE ---
Pt stated brother called and wanted update, not on contact list or Hippa form, states he filled one out? Nothing scanned in expanse, CM tiger text notified.
[2024-03-29] MEDS: vancomycin HCL 1,000 MG in 0.9 % Sodium Chloride 250 ML 270 MG IV ×2 (10:47→21:02)
[2024-03-29 11:19] LABS: Glucose, Whole Blood 116 mg/dL (60-115)
--- NOTE | 2024-03-29 11:28 | MHC.CM.PN ---
PATIENT GIVES PERMISSION FOR INFORMATION TO BE GIVEN TO MUNA (BROTHER).
--- NOTE | 2024-03-29 11:51 | MHC.CM.PN ---
PER MEÑOWI FLORENCE, PATINT WILL NEED TO BE COMPLIANT WITH WB IN ORDER TO RETURN TO FACILITY. PATIENT REFUSES SURGERY TODAY. POSSIBLE SURGICAL INTERVENTION 03/30. CM FOLLOWING.
--- NOTE | 2024-03-29 14:24 | HO.WOUND ---
Wound Consult: Follow up 73yr old?female admitted to [facility] [place] on 02/3024 - See progress notes and H&P for detailed history.? Wound consult follow upfor right ankle external fixator wounds and removed pin sites and follow up on Left leg.? Patient agreeable to assessment and photo documentation.? Arrival to bedside we discussed care and she reports feeling frustrated with her care. Supportive listening provided. Patient was asked about her refusal of dressing changes over the weekend - she denies refusal of dressing care. She was educated on the importance of routine cleansing and care - she states understanding. Spoke to Dr. Paulino over the phone and advised to switch to alginate packing - his concern remains since the anterior pin is removed the foot continues to lean the the lateral side. This can be observed while performing dressing changes. Initially Ortho had requested joana wrap to the rigght foot to pull the ankle medial to remove pressure from the lateral pin however todays assessement reveals blister and bruising to this area. I would not recommend continued placement of the joana wrap to off load lateral pressure - Dr. Paulino and Angelica MILLER made aware and that joana is not a viable option at this time. Dr. Paulino will work to stabilize foot / ankle. Right Lateral Foot 03/29/24 Left Medial Foot/ ankle - unchanged - no dressing in place due to patient refusal The left lateral ankle is noted for dried scabbed wound bed - patient reports it is from scratching. Cleansed and foam dressing applied. partial thickness tissue loss dried pale pink wound bed. The Left medial and plantar blisters / leg wounds appear to be related to the device attached to her Right ankle post Orthopedic surgery. The area was cleansed and foam dressing applied to aid in protection from ortho pins and screws and to allow for moist wound healing. The heel was assessed for no injury and she denies pain - foam dressing applied for prevention. Off Loaded with pillow. Bilateral great toes are noted for missing nails and scabbed over tissue - no drainage noted. Patient reports they are a result of her ripping out her toenails because they caused her discomfort in her shoes prior to coming to hospital. When asked how she removed them she reported with tools. There are no s/s of active infection at this time. The scabs are stable - there is limited topical intervention to apply at this time. should the scabs soften and drainage I would recommend xeroform and gauze dressing but pt refused at this time. No dressing in place at this time. The Right Ankle with external fixator and pins in place is noted for serval wounds with improved swelling and erythema. The tibal wound and a dorsal foot wound were original pin sites but have since been removed due to infection and were debrided in the OR. Both sites are moist with marbled wound bed significantly less adherent yellow slough. Recommend continued Hydrofiber AG for moisture management and antimicrobial properties. Right Tibia - Old Pin Site Right Foot - Old pin site The Medial and Lateral Ankle pin / fixator is overall improved at todays assessment. There is less swelling and red erythema noted and mild odor noted. Of importance the chart review revelas patient refused dressing changed periodically over the weekend. The pin sites continue to remain larger than the pin opening concerning for advancing wound with an appreciable depth of 4cm. Dr Paulino aware and will work for foot stability. Given patient refusal for dressing changes I recommend packing be switched to Hydrofiber AG for moisture management and antimicrobial properties. Overall the ankle appears improved but while preforming dressing changes the foot did have alot of movement which will likely lead to larger wounds. Right Lateral Ankle 03/25/24 Right Lateral Ankle 03/29/24 Right Medial Wound 03/25/24 Right Medial Wound 03/29/24 Inpatient wound care nurse will follow. Recommendations: 1. Turn and Reposition every 2 hours and as needed for patient comfort.? Use pillows or wedges to support off loading positions. 2. Off Load all bony prominences with use of pillows and heel boots if needed.? Apply Preventative foams where needed. ? 3. Monitor for incontinence and moisture control, use barrier creams when needed for prevention and treatment. 4. Provide adequate and supplemental nutrition.? 5. Continue low air loss mattress. 6. Maintain blood glucose levels per Providers order. 7. Left ankle and Heel - Cleanse with Ns moistgauze, apply skin prep allow to dry. Cover heel and wounds with foam dressing peel back and assess Q shift and change every 3 days. Off load heel off of bed surface. 8. Right Tibial and Dorsal Foot - Cleanse and irrigate with NS, pat Dry. Apply skin prep to periwound lightly pack wound bed to fill space with durafiber AG cover with foam dressing. Change every other day. 9. Right Medial and Lateral Ankle Sites - Irrigate and cleanse with NS, Pat dry. Apply skin prep to periwound. Lightly pack wound around pin site with Strip cut Durafiber AG, be sure to leave wick for easy removal. Cover with foam dressing cut to accommodate pin or dry gauze and gauze wrap. Change every other day. Re-consult wound care Nurse for wound deterioration or wound changes
[2024-03-29] MEDS: oxyCODONE HCl Immed Release 5 MG TABLET PO (15:44)
[2024-03-29 16:44] LABS: Glucose, Whole Blood 90 mg/dL (60-115)
[2024-03-29 20:35] LABS: Glucose, Whole Blood 104 mg/dL (60-115)
[2024-03-29 20:37] LABS: Vancomycin Random 17.2 mcg/mL (15-20)
[2024-03-29] MEDS: Acetaminophen 325 MG TABLET 650 MG PO (20:59)
[2024-03-29] MEDS: Gabapentin 300 MG CAPSULE 600 MG PO (20:59)
[2024-03-29] MEDS: lamoTRIgine 100 MG TABLET 300 MG PO (21:00)
[2024-03-30] VITALS (13 sets, daily range): BP systolic 133–176; BP diastolic 76–99; PULSE 65–108; RESP 14–20; TEMP 36.1–36.9; O2SAT 93–98
[2024-03-30] MEDS: Piperacillin Sodium/Tazobactam 3.375 GM in 0.9 % Sodium Chloride 50 ML IV ×4 (05:11→23:32)
[2024-03-30] MEDS: Omeprazole 40 MG CAPSULE.DR PO (05:12)
[2024-03-30 07:28] LABS: Glucose, Whole Blood 70 mg/dL (60-115)
[2024-03-30 07:43] LABS: Creatinine Clr Calc Pharmacy 88.6; Estimated Glomerular Filt Rate > 60
[2024-03-30] MEDS: Enoxaparin Sodium 40 MG/0.4 ML SYRINGE SUBCUT (08:33)
[2024-03-30] MEDS: DULoxetine HCl 30 MG CAPSULE.DR PO (08:33)
[2024-03-30] MEDS: Dextrose 5 % 1,000 ML 100 ML IVCONT (08:33)
[2024-03-30] MEDS: Gabapentin 300 MG CAPSULE PO (08:33)
[2024-03-30] MEDS: Cholecalciferol (Vitamin D3) 25 MCG TABLET PO (08:33)
[2024-03-30] MEDS: Atorvastatin Calcium 40 MG TABLET PO (08:33)
[2024-03-30] MEDS: DULoxetine HCl 60 MG CAPSULE.DR PO (08:33)
[2024-03-30] MEDS: Cyanocobalamin (Vitamin B-12) 1,000 MCG TABLET 1000 MCG PO (08:33)
[2024-03-30] MEDS: Ascorbic Acid 500 MG TABLET PO (08:33)
[2024-03-30] MEDS: Dextrose 10 % 250 ML 750 ML IV (08:41)
[2024-03-30 09:39] LABS: Glucose, Whole Blood 121 mg/dL (60-115)
[2024-03-30] MEDS: vancomycin HCL 1,000 MG in 0.9 % Sodium Chloride 250 ML 270 MG IV ×2 (09:44→22:13)
--- NOTE | 2024-03-30 11:00 | HO.WOUND ---
Attempted follow up consultation however patient was talking with [facility] [employer] operator. Will return at future time and or date.
[2024-03-30 11:06] LABS: Glucose, Whole Blood 90 mg/dL (60-115)
--- NOTE | 2024-03-30 13:01 | MHC.SHP ---
Pre-Procedural Eval Section A - 24 Hr Update-Section A only Date of Service: 03/30/24 The patient is an INPATIENT: Yes Changes since office visit: No Cold of Flu in the past 2 weeks, No New Medical Problems, No Changes in Medication and No Patient answered all questions The patient has been examined within 24 hours of the surgical procedure. The History & Physical has been completed within 30 days and I have reviewed it.: Yes Section B - Complete if H&P > 30 days Chief Complaint: R ankle fx Allergies: Allergies Allergy/AdvReac Type Severity Reaction Status Date / Time mirabegron [From Myrbetriq] Allergy Hallucinati Verified 03/09/24 13:21 ons Plan I have reviewed the history and physical and performed a pertinent physical examination on my patient. No changes have occurred unless specified. Time Spent With Patient Time: Total time managing care of this patient today ____ minutes.
[2024-03-30 13:14] LABS: Glucose, Whole Blood 73 mg/dL (60-115)
[2024-03-30 14:28] LABS: Glucose, Whole Blood 87 mg/dL (60-115)
--- NOTE | 2024-03-30 14:30 | HO.ANESPROP2 ---
HPI - Anesthesia Eval Consult details Narrative: 73 yo F admitted with right ankle fracture PMFSH Active Problems Active Problems: All Active Problems Peripheral neuropathy (Acute) Persistent atrial fibrillation (Acute) Preoperative cardiovascular examination (Acute) MG (dyspnea on exertion) (Acute) Trimalleolar fracture of right ankle (Acute) Suicide attempt (Acute) SELMA treated with BiPAP (Acute) Diabetic ulcer of right foot (Acute) Atrial fibrillation (Acute) Borderline personality disorder (Acute) Major depressive disorder (Acute) Diabetes mellitus (Acute) Past Medical History Medical History Elevated cholesterol Anxiety SELMA treated with BiPAP Diabetic ulcer of right foot Atrial fibrillation Borderline personality disorder Major depressive disorder Diabetes mellitus Chronic anticoagulation Family History Family history of problems with anesthesia: No Surgical History Surgical History Hx of esophagogastroduodenoscopy Hx of colonoscopy History of carpal tunnel release of both wrists Hx of bilateral cataract extraction Hx of bilateral breast reduction surgery Hx of hysterectomy History of Problems with Anesthesia: No Social History Social History Household Members: None Housing: [facility] Other:: [facility] Do you presently have visiting nurse or other home services: Yes Unable to assess alcohol history related to: Unable to respond 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 Patient Tobacco Use Status: Former Tobacco user Quit Date: 50 yrs ago service: No Meds Allergies Allergy/AdvReac Type Severity Reaction Status Date / Time [email or web address] [From Myrbetriq] Allergy Hallucinati Verified 03/09/24 13:21 ons Active Medications: Current Medications Acetaminophen (Acetaminophen 325 Mg Tablet) 650 mg PO Q6H PRN PRN Reason: Pain, Mild (Pain Scale 1-3) Last Admin: 03/29/24 20:59 Dose: 650 mg Ascorbic Acid (Ascorbic Acid 500 Mg Tablet) 500 mg PO DAILY [facility] Last Admin: 03/30/24 08:33 Dose: 500 mg Atorvastatin Calcium (Atorvastatin Calcium 40 Mg Tablet) 40 mg PO DAILY [facility] Last Admin: 03/30/24 08:33 Dose: 40 mg Cyanocobalamin (Cyanocobalamin (Vitamin B-12) 1,000 Mcg Tablet) 1,000 mcg PO DAILY [facility] Last Admin: 03/30/24 08:33 Dose: 1,000 mcg Duloxetine HCl (Duloxetine Hcl 30 Mg Capsule.) 30 mg PO DAILY [facility] Last Admin: 03/30/24 08:33 Dose: 30 mg Duloxetine HCl (Duloxetine Hcl 60 Mg Capsule.) 60 mg PO DAILY [facility] Last Admin: 03/30/24 08:33 Dose: 60 mg Enoxaparin Sodium (Enoxaparin Sodium 40 Mg/0.4 Ml Syringe) 40 mg SUBCUT Q24H [facility] Last Admin: 03/30/24 08:33 Dose: 40 mg Gabapentin (Gabapentin 300 Mg Capsule) 300 mg PO DAILY [facility] Last Admin: 03/30/24 08:33 Dose: 300 mg Gabapentin (Gabapentin 300 Mg Capsule) 600 mg PO BEDTIME [facility] Last Admin: 03/29/24 20:59 Dose: 600 mg Glucose (Glucose Gel 15 Gm Gel..Gram.) 15 gm PO Q15M PRN; Protocol PRN Reason: per Hypoglycemia Standing Ord. Dextrose (D10) 250 mls @ 750 mls/hr IV Q15M PRN; Protocol PRN Reason: per Hypoglycemia Standing Ord. Last Infusion: 03/30/24 09:14 Dose: Infused Vancomycin HCl 1,000 mg/ (Sodium Chloride) 270 mls @ 270 mls/hr IV Q12H [facility] Last Infusion: 03/30/24 11:07 Dose: Infused Piperacillin Sod/Tazobactam (Sod 3.375 gm/ Sodium Chloride) 50 mls @ 100 mls/hr IV Q6H [facility] Last Infusion: 03/30/24 11:34 Dose: Infused Dextrose (D5w) 1,000 mls @ 100 mls/hr IVCONT .Q10H [facility] Last Admin: 03/30/24 08:33 Dose: 100 mls/hr Insulin Human Lispro (Insulin Lispro 100 Unit/Ml 3 Ml Vial) 0 unit SUBCUT QIDACHS [facility]; Protocol Last Admin: 03/30/24 10:25 Dose: Not Given Lamotrigine (Lamotrigine 100 Mg Tablet) 300 mg PO BEDTIME [facility] Last Admin: 03/29/24 21:00 Dose: 300 mg Metoprolol Tartrate (Metoprolol Tartrate 50 Mg Tablet) 50 mg PO BID [facility]; Protocol Last Admin: 03/30/24 07:54 Dose: Not Given Omeprazole (Omeprazole 40 Mg Capsule.) 40 mg PO DAILY@0630 [facility] Last Admin: 03/30/24 05:12 Dose: 40 mg Ondansetron HCl (Ondansetron Hcl 4 Mg/2 Ml Vial) 4 mg IVPUSH Q8H PRN PRN Reason: Nausea Oxycodone HCl (Oxycodone Hcl Immed Release 5 Mg Tablet) 5 mg PO Q4H PRN PRN Reason: Pain, Moderate(Pain Scale 4-6) Last Admin: 03/29/24 15:44 Dose: 5 mg Pharmacy Consult (Consult Rx Vancomycin Dosing) 1 each MISCELLANE DAILY PRN PRN Reason: Consult order Sodium Chloride (0.9 % Sodium Chloride Flush 3 Ml Syringe) 3 ml IVFLUSH QSHIFT [facility] Last Admin: 03/30/24 08:47 Dose: Not Given Sodium Hypochlorite (Sodium Hypochlorite 0.25% 473 Ml Solution) 1 appl TOPICAL BID [facility] Last Admin: 03/30/24 07:55 Dose: Not Given Vitamin D (Cholecalciferol (Vitamin D3) 25 Mcg Tablet) 25 mcg PO DAILY [facility] Last Admin: 03/30/24 08:33 Dose: 25 mcg Home Medications ?Medication ?Instructions ?Recorded ?Confirmed ?Last Taken ?Type ascorbic acid (vitamin C) 500 mg 500 mg PO DAILY 02/24/24 03/09/24 02/24/24 History tablet cholecalciferol (vitamin D3) 25 25 mcg PO DAILY 02/24/24 03/09/24 02/24/24 History mcg (1,000 unit) tablet cyanocobalamin (vitamin B-12) 1,000 mcg PO DAILY 02/24/24 03/09/24 02/24/24 History 1,000 mcg tablet duloxetine 30 mg capsule,delayed 30 mg PO DAILY 02/24/24 03/09/24 02/24/24 History release duloxetine 60 mg capsule,delayed 60 mg PO DAILY 02/24/24 03/09/24 02/24/24 History release gabapentin 300 mg capsule 300 mg PO DAILY 02/24/24 03/09/24 02/24/24 History gabapentin 300 mg capsule 600 mg PO BEDTIME 02/24/24 03/09/24 02/23/24 History lamotrigine 150 mg tablet 300 mg PO BEDTIME 02/24/24 03/09/24 02/23/24 History Exam Exam Date and Time: March 30, 2024 1400 Height,Weight and Vital Signs: Height 5 ft 7 in Weight 117.3 kg Last Vital Signs Temp 97.9 F 03/30/24 12:39 Pulse 83 03/30/24 12:39 Resp 16 03/30/24 12:39 BP 162/99 H 03/30/24 12:39 Pulse Ox 97 03/30/24 12:39 O2 Del Method Room Air 03/30/24 12:39 O2 Flow Rate 5 03/24/24 15:00 FiO2 98 03/11/24 17:14 Pertinent Lab Results Pertinent Lab Results: Laboratory Tests 03/09/24 03/09/24 03/10/24 16:10 20:14 06:07 WBC 5.9 RBC 3.64 L Hgb 10.3 L Hct 31.4 L MCV 86.3 MCH 28.3 MCHC 32.8 RDW 16.9 H Plt Count 354 D MPV 9.8 Immature Gran % (Auto) 0.5 H Neut % (Auto) 59.9 Lymph % (Auto) 27.6 [place] % (Auto) 8.1 Eos % (Auto) 3.4 Baso % (Auto) 0.5 Lymph # (Auto) 1.6 [place] # (Auto) 0.5 Eos # (Auto) 0.2 Baso # (Auto) 0.0 Abs Immat Gran (auto) 0.03 Absolute Neuts (auto) 3.5 Absolute Nucleated RBC 0.000 Nucleated RBC % (auto) 0.0 Hold Purple Top Sodium 142 Potassium 3.5 D Chloride 107 Carbon Dioxide 25 Anion Gap 14 BUN 11 Creatinine 0.67 Estim Creat Clear Calc 100.5 Estimated GFR > 60 POC Glucose 85 124 H Fasting Glucose 78 Estimat Average Glucose 108 Hemoglobin A1c % 5.4 Calcium 9.1 Random Vancomycin 03/10/24 03/10/24 03/10/24 07:17 11:00 14:02 WBC RBC Hgb Hct MCV MCH MCHC RDW Plt Count MPV Immature Gran % (Auto) Neut % (Auto) Lymph % (Auto) [place] % (Auto) Eos % (Auto) Baso % (Auto) Lymph # (Auto) [place] # (Auto) Eos # (Auto) Baso # (Auto) Abs Immat Gran (auto) Absolute Neuts (auto) Absolute Nucleated RBC Nucleated RBC % (auto) Hold Purple Top Sodium Potassium Chloride Carbon Dioxide Anion Gap BUN Creatinine Estim Creat Clear Calc Estimated GFR POC Glucose 76 78 76 Fasting Glucose Estimat Average Glucose Hemoglobin A1c % Calcium Random Vancomycin 03/10/24 03/10/24 03/11/24 17:09 21:16 06:19 WBC 5.9 RBC 3.79 L Hgb 10.7 L Hct 33.5 L MCV 88.4 MCH 28.2 MCHC 31.9 RDW 16.9 H Plt Count 282 MPV 11.5 Immature Gran % (Auto) Neut % (Auto) Lymph % (Auto) [place] % (Auto) Eos % (Auto) Baso % (Auto) Lymph # (Auto) [place] # (Auto) Eos # (Auto) Baso # (Auto) Abs Immat Gran (auto) Absolute Neuts (auto) Absolute Nucleated RBC 0.000 Nucleated RBC % (auto) 0.0 Hold Purple Top SEE NOTE Sodium 144 Potassium 4.1 Chloride 106 Carbon Dioxide 26 Anion Gap 16 BUN 5 L Creatinine 0.65 Estim Creat Clear Calc 103.5 Estimated GFR > 60 POC Glucose 94 93 Fasting Glucose 89 Estimat Average Glucose Hemoglobin A1c % Calcium 9.5 Random Vancomycin 03/11/24 03/11/24 03/11/24 07:47 11:26 13:47 WBC RBC Hgb Hct MCV MCH MCHC RDW Plt Count MPV Immature Gran % (Auto) Neut % (Auto) Lymph % (Auto) [place] % (Auto) Eos % (Auto) Baso % (Auto) Lymph # (Auto) [place] # (Auto) Eos # (Auto) Baso # (Auto) Abs Immat Gran (auto) Absolute Neuts (auto) Absolute Nucleated RBC Nucleated RBC % (auto) Hold Purple Top Sodium Potassium Chloride Carbon Dioxide Anion Gap BUN Creatinine Estim Creat Clear Calc Estimated GFR POC Glucose 89 94 81 Fasting Glucose Estimat Average Glucose Hemoglobin A1c % Calcium Random Vancomycin 03/11/24 03/11/24 03/12/24 16:23 20:23 05:39 WBC RBC Hgb Hct MCV MCH MCHC RDW Plt Count MPV Immature Gran % (Auto) Neut % (Auto) Lymph % (Auto) [place] % (Auto) Eos % (Auto) Baso % (Auto) Lymph # (Auto) [place] # (Auto) Eos # (Auto) Baso # (Auto) Abs Immat Gran (auto) Absolute Neuts (auto) Absolute Nucleated RBC Nucleated RBC % (auto) Hold Purple Top Sodium 142 Potassium 3.8 Chloride 105 Carbon Dioxide 27 Anion Gap 14 BUN 8 L Creatinine 0.67 Estim Creat Clear Calc 100.5 Estimated GFR > 60 POC Glucose 88 150 H Fasting Glucose 104 H Estimat Average Glucose Hemoglobin A1c % Calcium 9.0 Random Vancomycin 03/12/24 03/12/24 03/12/24 07:16 11:01 16:03 WBC RBC Hgb Hct MCV MCH MCHC RDW Plt Count MPV Immature Gran % (Auto) Neut % (Auto) Lymph % (Auto) [place] % (Auto) Eos % (Auto) Baso % (Auto) Lymph # (Auto) [place] # (Auto) Eos # (Auto) Baso # (Auto) Abs Immat Gran (auto) Absolute Neuts (auto) Absolute Nucleated RBC Nucleated RBC % (auto) Hold Purple Top Sodium Potassium Chloride Carbon Dioxide Anion Gap BUN Creatinine Estim Creat Clear Calc Estimated GFR POC Glucose 79 96 118 H Fasting Glucose Estimat Average Glucose Hemoglobin A1c % Calcium Random Vancomycin 03/12/24 03/13/24 03/13/24 19:30 05:51 07:07 WBC RBC Hgb Hct MCV MCH MCHC RDW Plt Count MPV Immature Gran % (Auto) Neut % (Auto) Lymph % (Auto) [place] % (Auto) Eos % (Auto) Baso % (Auto) Lymph # (Auto) [place] # (Auto) Eos # (Auto) Baso # (Auto) Abs Immat Gran (auto) Absolute Neuts (auto) Absolute Nucleated RBC Nucleated RBC % (auto) Hold Purple Top SEE NOTE Sodium 145 Potassium 3.7 Chloride 107 Carbon Dioxide 28 Anion Gap 14 BUN 11 Creatinine 0.71 Estim Creat Clear Calc 94.8 Estimated GFR > 60 POC Glucose 122 H 72 Fasting Glucose 81 Estimat Average Glucose Hemoglobin A1c % Calcium 9.8 D Random Vancomycin 03/13/24 03/13/24 03/13/24 11:06 16:05 19:20 WBC RBC Hgb Hct MCV MCH MCHC RDW Plt Count MPV Immature Gran % (Auto) Neut % (Auto) Lymph % (Auto) [place] % (Auto) Eos % (Auto) Baso % (Auto) Lymph # (Auto) [place] # (Auto) Eos # (Auto) Baso # (Auto) Abs Immat Gran (auto) Absolute Neuts (auto) Absolute Nucleated RBC Nucleated RBC % (auto) Hold Purple Top Sodium Potassium Chloride Carbon Dioxide Anion Gap BUN Creatinine Estim Creat Clear Calc Estimated GFR POC Glucose 91 94 126 H Fasting Glucose Estimat Average Glucose Hemoglobin A1c % Calcium Random Vancomycin 03/14/24 03/14/24 03/14/24 05:54 07:12 11:09 WBC RBC Hgb Hct MCV MCH MCHC RDW Plt Count MPV Immature Gran % (Auto) Neut % (Auto) Lymph % (Auto) [place] % (Auto) Eos % (Auto) Baso % (Auto) Lymph # (Auto) [place] # (Auto) Eos # (Auto) Baso # (Auto) Abs Immat Gran (auto) Absolute Neuts (auto) Absolute Nucleated RBC Nucleated RBC % (auto) Hold Purple Top SEE NOTE Sodium 146 H Potassium 3.5 Chloride 108 Carbon Dioxide 27 Anion Gap 15 BUN 10 Creatinine 0.70 Estim Creat Clear Calc 96.1 Estimated GFR > 60 POC Glucose 87 100 Fasting Glucose 91 Estimat Average Glucose Hemoglobin A1c % Calcium 9.3 Random Vancomycin 03/14/24 03/14/24 03/15/24 15:49 20:14 06:58 WBC RBC Hgb Hct MCV MCH MCHC RDW Plt Count MPV Immature Gran % (Auto) Neut % (Auto) Lymph % (Auto) [place] % (Auto) Eos % (Auto) Baso % (Auto) Lymph # (Auto) [place] # (Auto) Eos # (Auto) Baso # (Auto) Abs Immat Gran (auto) Absolute Neuts (auto) Absolute Nucleated RBC Nucleated RBC % (auto) Hold Purple Top Sodium Potassium Chloride Carbon Dioxide Anion Gap BUN Creatinine Estim Creat Clear Calc Estimated GFR POC Glucose 90 122 H 78 Fasting Glucose Estimat Average Glucose Hemoglobin A1c % Calcium Random Vancomycin 03/15/24 03/15/24 03/15/24 11:32 16:15 20:14 WBC RBC Hgb Hct MCV MCH MCHC RDW Plt Count MPV Immature Gran % (Auto) Neut % (Auto) Lymph % (Auto) [place] % (Auto) Eos % (Auto) Baso % (Auto) Lymph # (Auto) [place] # (Auto) Eos # (Auto) Baso # (Auto) Abs Immat Gran (auto) Absolute Neuts (auto) Absolute Nucleated RBC Nucleated RBC % (auto) Hold Purple Top Sodium Potassium Chloride Carbon Dioxide Anion Gap BUN Creatinine Estim Creat Clear Calc Estimated GFR POC Glucose 89 94 119 H Fasting Glucose Estimat Average Glucose Hemoglobin A1c % Calcium Random Vancomycin 03/16/24 03/16/24 03/16/24 07:05 11:07 16:16 WBC RBC Hgb Hct MCV MCH MCHC RDW Plt Count MPV Immature Gran % (Auto) Neut % (Auto) Lymph % (Auto) [place] % (Auto) Eos % (Auto) Baso % (Auto) Lymph # (Auto) [place] # (Auto) Eos # (Auto) Baso # (Auto) Abs Immat Gran (auto) Absolute Neuts (auto) Absolute Nucleated RBC Nucleated RBC % (auto) Hold Purple Top Sodium Potassium Chloride Carbon Dioxide Anion Gap BUN Creatinine Estim Creat Clear Calc Estimated GFR POC Glucose 84 112 92 Fasting Glucose Estimat Average Glucose Hemoglobin A1c % Calcium Random Vancomycin 03/16/24 03/17/24 03/17/24 19:39 06:53 11:11 WBC RBC Hgb Hct MCV MCH MCHC RDW Plt Count MPV Immature Gran % (Auto) Neut % (Auto) Lymph % (Auto) [place] % (Auto) Eos % (Auto) Baso % (Auto) Lymph # (Auto) [place] # (Auto) Eos # (Auto) Baso # (Auto) Abs Immat Gran (auto) Absolute Neuts (auto) Absolute Nucleated RBC Nucleated RBC % (auto) Hold Purple Top Sodium Potassium Chloride Carbon Dioxide Anion Gap BUN Creatinine Estim Creat Clear Calc Estimated GFR POC Glucose 105 85 94 Fasting Glucose Estimat Average Glucose Hemoglobin A1c % Calcium Random Vancomycin 03/17/24 03/17/24 03/18/24 16:19 20:23 07:23 WBC RBC Hgb Hct MCV MCH MCHC RDW Plt Count MPV Immature Gran % (Auto) Neut % (Auto) Lymph % (Auto) [place] % (Auto) Eos % (Auto) Baso % (Auto) Lymph # (Auto) [place] # (Auto) Eos # (Auto) Baso # (Auto) Abs Immat Gran (auto) Absolute Neuts (auto) Absolute Nucleated RBC Nucleated RBC % (auto) Hold Purple Top Sodium Potassium Chloride Carbon Dioxide Anion Gap BUN Creatinine Estim Creat Clear Calc Estimated GFR POC Glucose 113 118 H 79 Fasting Glucose Estimat Average Glucose Hemoglobin A1c % Calcium Random Vancomycin 03/18/24 03/18/24 03/18/24 11:25 17:43 20:16 WBC RBC Hgb Hct MCV MCH MCHC RDW Plt Count MPV Immature Gran % (Auto) Neut % (Auto) Lymph % (Auto) [place] % (Auto) Eos % (Auto) Baso % (Auto) Lymph # (Auto) [place] # (Auto) Eos # (Auto) Baso # (Auto) Abs Immat Gran (auto) Absolute Neuts (auto) Absolute Nucleated RBC Nucleated RBC % (auto) Hold Purple Top Sodium Potassium Chloride Carbon Dioxide Anion Gap BUN Creatinine Estim Creat Clear Calc Estimated GFR POC Glucose 122 H 107 146 H Fasting Glucose Estimat Average Glucose Hemoglobin A1c % Calcium Random Vancomycin 03/19/24 03/19/24 03/19/24 07:09 11:17 16:10 WBC RBC Hgb Hct MCV MCH MCHC RDW Plt Count MPV Immature Gran % (Auto) Neut % (Auto) Lymph % (Auto) [place] % (Auto) Eos % (Auto) Baso % (Auto) Lymph # (Auto) [place] # (Auto) Eos # (Auto) Baso # (Auto) Abs Immat Gran (auto) Absolute Neuts (auto) Absolute Nucleated RBC Nucleated RBC % (auto) Hold Purple Top Sodium Potassium Chloride Carbon Dioxide Anion Gap BUN Creatinine Estim Creat Clear Calc Estimated GFR POC Glucose 95 109 104 Fasting Glucose Estimat Average Glucose Hemoglobin A1c % Calcium Random Vancomycin 03/19/24 03/20/24 03/20/24 20:18 07:21 11:15 WBC RBC Hgb Hct MCV MCH MCHC RDW Plt Count MPV Immature Gran % (Auto) Neut % (Auto) Lymph % (Auto) [place] % (Auto) Eos % (Auto) Baso % (Auto) Lymph # (Auto) [place] # (Auto) Eos # (Auto) Baso # (Auto) Abs Immat Gran (auto) Absolute Neuts (auto) Absolute Nucleated RBC Nucleated RBC % (auto) Hold Purple Top Sodium Potassium Chloride Carbon Dioxide Anion Gap BUN Creatinine Estim Creat Clear Calc Estimated GFR POC Glucose 98 83 101 Fasting Glucose Estimat Average Glucose Hemoglobin A1c % Calcium Random Vancomycin 03/20/24 03/20/24 03/21/24 15:59 20:28 07:18 WBC RBC Hgb Hct MCV MCH MCHC RDW Plt Count MPV Immature Gran % (Auto) Neut % (Auto) Lymph % (Auto) [place] % (Auto) Eos % (Auto) Baso % (Auto) Lymph # (Auto) [place] # (Auto) Eos # (Auto) Baso # (Auto) Abs Immat Gran (auto) Absolute Neuts (auto) Absolute Nucleated RBC Nucleated RBC % (auto) Hold Purple Top Sodium Potassium Chloride Carbon Dioxide Anion Gap BUN Creatinine Estim Creat Clear Calc Estimated GFR POC Glucose 109 100 91 Fasting Glucose Estimat Average Glucose Hemoglobin A1c % Calcium Random Vancomycin 03/21/24 03/21/24 03/21/24 11:18 16:08 20:13 WBC RBC Hgb Hct MCV MCH MCHC RDW Plt Count MPV Immature Gran % (Auto) Neut % (Auto) Lymph % (Auto) [place] % (Auto) Eos % (Auto) Baso % (Auto) Lymph # (Auto) [place] # (Auto) Eos # (Auto) Baso # (Auto) Abs Immat Gran (auto) Absolute Neuts (auto) Absolute Nucleated RBC Nucleated RBC % (auto) Hold Purple Top Sodium Potassium Chloride Carbon Dioxide Anion Gap BUN Creatinine Estim Creat Clear Calc Estimated GFR POC Glucose 94 95 142 H Fasting Glucose Estimat Average Glucose Hemoglobin A1c % Calcium Random Vancomycin 03/22/24 03/22/24 03/22/24 07:22 11:21 16:03 WBC RBC Hgb Hct MCV MCH MCHC RDW Plt Count MPV Immature Gran % (Auto) Neut % (Auto) Lymph % (Auto) [place] % (Auto) Eos % (Auto) Baso % (Auto) Lymph # (Auto) [place] # (Auto) Eos # (Auto) Baso # (Auto) Abs Immat Gran (auto) Absolute Neuts (auto) Absolute Nucleated RBC Nucleated RBC % (auto) Hold Purple Top Sodium Potassium Chloride Carbon Dioxide Anion Gap BUN Creatinine Estim Creat Clear Calc Estimated GFR POC Glucose 82 116 H 93 Fasting Glucose Estimat Average Glucose Hemoglobin A1c % Calcium Random Vancomycin 03/22/24 03/23/24 03/23/24 20:21 07:23 11:29 WBC RBC Hgb Hct MCV MCH MCHC RDW Plt Count MPV Immature Gran % (Auto) Neut % (Auto) Lymph % (Auto) [place] % (Auto) Eos % (Auto) Baso % (Auto) Lymph # (Auto) [place] # (Auto) Eos # (Auto) Baso # (Auto) Abs Immat Gran (auto) Absolute Neuts (auto) Absolute Nucleated RBC Nucleated RBC % (auto) Hold Purple Top Sodium Potassium Chloride Carbon Dioxide Anion Gap BUN Creatinine Estim Creat Clear Calc Estimated GFR POC Glucose 101 85 98 Fasting Glucose Estimat Average Glucose Hemoglobin A1c % Calcium Random Vancomycin 03/23/24 03/23/24 03/24/24 16:19 20:04 07:05 WBC RBC Hgb Hct MCV MCH MCHC RDW Plt Count MPV Immature Gran % (Auto) Neut % (Auto) Lymph % (Auto) [place] % (Auto) Eos % (Auto) Baso % (Auto) Lymph # (Auto) [place] # (Auto) Eos # (Auto) Baso # (Auto) Abs Immat Gran (auto) Absolute Neuts (auto) Absolute Nucleated RBC Nucleated RBC % (auto) Hold Purple Top Sodium Potassium Chloride Carbon Dioxide Anion Gap BUN Creatinine Estim Creat Clear Calc Estimated GFR POC Glucose 107 125 H 109 Fasting Glucose Estimat Average Glucose Hemoglobin A1c % Calcium Random Vancomycin 03/24/24 03/24/24 03/24/24 11:15 12:21 16:18 WBC RBC Hgb Hct MCV MCH MCHC RDW Plt Count MPV Immature Gran % (Auto) Neut % (Auto) Lymph % (Auto) [place] % (Auto) Eos % (Auto) Baso % (Auto) Lymph # (Auto) [place] # (Auto) Eos # (Auto) Baso # (Auto) Abs Immat Gran (auto) Absolute Neuts (auto) Absolute Nucleated RBC Nucleated RBC % (auto) Hold Purple Top Sodium Potassium Chloride Carbon Dioxide Anion Gap BUN Creatinine Estim Creat Clear Calc Estimated GFR POC Glucose 99 104 111 Fasting Glucose Estimat Average Glucose Hemoglobin A1c % Calcium Random Vancomycin 03/24/24 03/24/24 03/25/24 17:09 20:43 07:37 WBC RBC Hgb Hct MCV MCH MCHC RDW Plt Count MPV Immature Gran % (Auto) Neut % (Auto) Lymph % (Auto) [place] % (Auto) Eos % (Auto) Baso % (Auto) Lymph # (Auto) [place] # (Auto) Eos # (Auto) Baso # (Auto) Abs Immat Gran (auto) Absolute Neuts (auto) Absolute Nucleated RBC Nucleated RBC % (auto) Hold Purple Top Sodium Potassium Chloride Carbon Dioxide Anion Gap BUN Creatinine 0.70 Estim Creat Clear Calc 96.1 Estimated GFR > 60 POC Glucose 130 H 101 Fasting Glucose Estimat Average Glucose Hemoglobin A1c % Calcium Random Vancomycin 03/25/24 03/25/24 03/25/24 09:24 11:31 16:26 WBC RBC Hgb Hct MCV MCH MCHC RDW Plt Count MPV Immature Gran % (Auto) Neut % (Auto) Lymph % (Auto) [place] % (Auto) Eos % (Auto) Baso % (Auto) Lymph # (Auto) [place] # (Auto) Eos # (Auto) Baso # (Auto) Abs Immat Gran (auto) Absolute Neuts (auto) Absolute Nucleated RBC Nucleated RBC % (auto) Hold Purple Top SEE NOTE Sodium Potassium Chloride Carbon Dioxide Anion Gap BUN Creatinine 0.74 Estim Creat Clear Calc 91.0 Estimated GFR > 60 POC Glucose 99 88 Fasting Glucose Estimat Average Glucose Hemoglobin A1c % Calcium Random Vancomycin 03/25/24 03/25/24 03/26/24 20:02 20:39 07:27 WBC RBC Hgb Hct MCV MCH MCHC RDW Plt Count MPV Immature Gran % (Auto) Neut % (Auto) Lymph % (Auto) [place] % (Auto) Eos % (Auto) Baso % (Auto) Lymph # (Auto) [place] # (Auto) Eos # (Auto) Baso # (Auto) Abs Immat Gran (auto) Absolute Neuts (auto) Absolute Nucleated RBC Nucleated RBC % (auto) Hold Purple Top Sodium Potassium Chloride Carbon Dioxide Anion Gap BUN Creatinine Estim Creat Clear Calc Estimated GFR POC Glucose 123 H 94 Fasting Glucose Estimat Average Glucose Hemoglobin A1c % Calcium Random Vancomycin 14.2 L 03/26/24 03/26/24 03/26/24 07:49 11:27 16:03 WBC RBC Hgb Hct MCV MCH MCHC RDW Plt Count MPV Immature Gran % (Auto) Neut % (Auto) Lymph % (Auto) [place] % (Auto) Eos % (Auto) Baso % (Auto) Lymph # (Auto) [place] # (Auto) Eos # (Auto) Baso # (Auto) Abs Immat Gran (auto) Absolute Neuts (auto) Absolute Nucleated RBC Nucleated RBC % (auto) Hold Purple Top Sodium Potassium Chloride Carbon Dioxide Anion Gap BUN Creatinine 0.69 Estim Creat Clear Calc 97.6 Estimated GFR > 60 POC Glucose 96 89 Fasting Glucose Estimat Average Glucose Hemoglobin A1c % Calcium Random Vancomycin 03/26/24 03/26/24 03/27/24 19:57 20:13 05:54 WBC RBC Hgb Hct MCV MCH MCHC RDW Plt Count MPV Immature Gran % (Auto) Neut % (Auto) Lymph % (Auto) [place] % (Auto) Eos % (Auto) Baso % (Auto) Lymph # (Auto) [place] # (Auto) Eos # (Auto) Baso # (Auto) Abs Immat Gran (auto) Absolute Neuts (auto) Absolute Nucleated RBC Nucleated RBC % (auto) Hold Purple Top SEE NOTE Sodium Potassium Chloride Carbon Dioxide Anion Gap BUN Creatinine 0.68 Estim Creat Clear Calc 99.0 Estimated GFR > 60 POC Glucose 116 H Fasting Glucose Estimat Average Glucose Hemoglobin A1c % Calcium Random Vancomycin 15.2 03/27/24 03/27/24 03/27/24 07:27 11:12 15:56 WBC RBC Hgb Hct MCV MCH MCHC RDW Plt Count MPV Immature Gran % (Auto) Neut % (Auto) Lymph % (Auto) [place] % (Auto) Eos % (Auto) Baso % (Auto) Lymph # (Auto) [place] # (Auto) Eos # (Auto) Baso # (Auto) Abs Immat Gran (auto) Absolute Neuts (auto) Absolute Nucleated RBC Nucleated RBC % (auto) Hold Purple Top Sodium Potassium Chloride Carbon Dioxide Anion Gap BUN Creatinine Estim Creat Clear Calc Estimated GFR POC Glucose 88 120 H 98 Fasting Glucose Estimat Average Glucose Hemoglobin A1c % Calcium Random Vancomycin 03/27/24 03/27/24 03/28/24 20:10 20:27 05:36 WBC RBC Hgb Hct MCV MCH MCHC RDW Plt Count MPV Immature Gran % (Auto) Neut % (Auto) Lymph % (Auto) [place] % (Auto) Eos % (Auto) Baso % (Auto) Lymph # (Auto) [place] # (Auto) Eos # (Auto) Baso # (Auto) Abs Immat Gran (auto) Absolute Neuts (auto) Absolute Nucleated RBC Nucleated RBC % (auto) Hold Purple Top Sodium Potassium Chloride Carbon Dioxide Anion Gap BUN Creatinine 0.70 Estim Creat Clear Calc 96.1 Estimated GFR > 60 POC Glucose 94 Fasting Glucose Estimat Average Glucose Hemoglobin A1c % Calcium Random Vancomycin 14.8 L 03/28/24 03/28/24 03/28/24 07:06 11:10 15:55 WBC RBC Hgb Hct MCV MCH MCHC RDW Plt Count MPV Immature Gran % (Auto) Neut % (Auto) Lymph % (Auto) [place] % (Auto) Eos % (Auto) Baso % (Auto) Lymph # (Auto) [place] # (Auto) Eos # (Auto) Baso # (Auto) Abs Immat Gran (auto) Absolute Neuts (auto) Absolute Nucleated RBC Nucleated RBC % (auto) Hold Purple Top Sodium Potassium Chloride Carbon Dioxide Anion Gap BUN Creatinine Estim Creat Clear Calc Estimated GFR POC Glucose 78 107 91 Fasting Glucose Estimat Average Glucose Hemoglobin A1c % Calcium Random Vancomycin 03/28/24 03/28/24 03/29/24 19:48 20:18 05:25 WBC RBC Hgb Hct MCV MCH MCHC RDW Plt Count MPV Immature Gran % (Auto) Neut % (Auto) Lymph % (Auto) [place] % (Auto) Eos % (Auto) Baso % (Auto) Lymph # (Auto) [place] # (Auto) Eos # (Auto) Baso # (Auto) Abs Immat Gran (auto) Absolute Neuts (auto) Absolute Nucleated RBC Nucleated RBC % (auto) Hold Purple Top SEE NOTE Sodium Potassium Chloride Carbon Dioxide Anion Gap BUN Creatinine 0.73 Estim Creat Clear Calc 92.2 Estimated GFR > 60 POC Glucose 129 H Fasting Glucose Estimat Average Glucose Hemoglobin A1c % Calcium Random Vancomycin 16.4 03/29/24 03/29/24 03/29/24 07:15 08:21 11:06 WBC RBC Hgb Hct MCV MCH MCHC RDW Plt Count MPV Immature Gran % (Auto) Neut % (Auto) Lymph % (Auto) [place] % (Auto) Eos % (Auto) Baso % (Auto) Lymph # (Auto) [place] # (Auto) Eos # (Auto) Baso # (Auto) Abs Immat Gran (auto) Absolute Neuts (auto) Absolute Nucleated RBC Nucleated RBC % (auto) Hold Purple Top Sodium Potassium Chloride Carbon Dioxide Anion Gap BUN Creatinine Estim Creat Clear Calc Estimated GFR POC Glucose 67 120 H 116 H Fasting Glucose Estimat Average Glucose Hemoglobin A1c % Calcium Random Vancomycin 03/29/24 03/29/24 03/29/24 16:36 20:03 20:12 WBC RBC Hgb Hct MCV MCH MCHC RDW Plt Count MPV Immature Gran % (Auto) Neut % (Auto) Lymph % (Auto) [place] % (Auto) Eos % (Auto) Baso % (Auto) Lymph # (Auto) [place] # (Auto) Eos # (Auto) Baso # (Auto) Abs Immat Gran (auto) Absolute Neuts (auto) Absolute Nucleated RBC Nucleated RBC % (auto) Hold Purple Top Sodium Potassium Chloride Carbon Dioxide Anion Gap BUN Creatinine Estim Creat Clear Calc Estimated GFR POC Glucose 90 104 Fasting Glucose Estimat Average Glucose Hemoglobin A1c % Calcium Random Vancomycin 17.2 03/30/24 03/30/24 03/30/24 05:54 07:24 09:35 WBC RBC Hgb Hct MCV MCH MCHC RDW Plt Count MPV Immature Gran % (Auto) Neut % (Auto) Lymph % (Auto) [place] % (Auto) Eos % (Auto) Baso % (Auto) Lymph # (Auto) [place] # (Auto) Eos # (Auto) Baso # (Auto) Abs Immat Gran (auto) Absolute Neuts (auto) Absolute Nucleated RBC Nucleated RBC % (auto) Hold Purple Top SEE NOTE Sodium Potassium Chloride Carbon Dioxide Anion Gap BUN Creatinine 0.76 Estim Creat Clear Calc 88.6 Estimated GFR > 60 POC Glucose 70 121 H Fasting Glucose Estimat Average Glucose Hemoglobin A1c % Calcium Random Vancomycin 03/30/24 03/30/24 03/30/24 10:57 13:09 14:24 WBC RBC Hgb Hct MCV MCH MCHC RDW Plt Count MPV Immature Gran % (Auto) Neut % (Auto) Lymph % (Auto) [place] % (Auto) Eos % (Auto) Baso % (Auto) Lymph # (Auto) [place] # (Auto) Eos # (Auto) Baso # (Auto) Abs Immat Gran (auto) Absolute Neuts (auto) Absolute Nucleated RBC Nucleated RBC % (auto) Hold Purple Top Sodium Potassium Chloride Carbon Dioxide Anion Gap BUN Creatinine Estim Creat Clear Calc Estimated GFR POC Glucose 90 73 87 Fasting Glucose Estimat Average Glucose Hemoglobin A1c % Calcium Random Vancomycin Airway Mallampati Class: II TM Dist: >3cm Neck ROM: Limited Loose/Missing/Broken Teeth: Yes (several broken teeth) Heart: S1S2 Lungs: CTAB Assessment and Plan Assessment Anesthesia Assessment: Anesthesia Plan Discussed and Chart Reviewed Final Anesthetic Review Family History of Problems with Anesthesia: No History of Problems with Anesthesia: No NPO: Yes ASA Class: III Final Preanesthetic Review: No Changes in Pt Med Stat, Meds/Allgs Chart Reviewed, Consent Obtained/Reviewed and Anes Risks/Benef Reviewed Patient Risk: Intermediate Procedure Risk: Intermediate Anesthetic Plan Anesthetic Plan: GA and Agree w/ Assess. and Plan Disposition: Standard PACU
--- NOTE | 2024-03-30 15:15 | HO.WOUND ---
Wound Consult: Follow up 73yr old?[place] [facility] [place] See progress notes and H&P for detailed history.? Wound consult follow up requested by Dr. Paulino in OR post debridement to discuss topical recommendations. Wound vac would be a viable option however given casting area wound vac changes wound be difficult. Given patient has history of noncompliance Hydrofiber AG was discussed. Ultimately agreed upon Durafiber Ag to be packed into Medial and Lateral Ankle pin sites that communicate with each other. This will allow for moisture management and maintain antimicrobial properties. Discussed follow up schedule agreed this health science writer will follow up on for dressing change. Inpatient wound care nurse will follow. Initialized on 03/29/24 14:24 - END OF NOTE
--- NOTE | 2024-03-30 16:08 | P.BOP_ITS ---
Brief Operative Note Date of Service: 03/30/24 Pre-op diagnosis: Unsatble fracture dislocation right ankle with severe peripheral diabetic neuropathy Post-op diagnosis: same Procedure: Removal of external fixation, irrigation and debridement and placement of long leg cast Implants: none Surgeon: Santiago Paulino MD Anesthesia: GALEA Was an Leather Fitter used for this Procedure?: Yes Leather Fitter: Marie Senior Estimated blood loss (mL): 20 IV fluids (mL): 650 Pathology: none sent Condition: stable Disposition: PACU
[2024-03-30 16:22] LABS: Glucose, Whole Blood 100 mg/dL (60-115)
[2024-03-30 17:26] LABS: Glucose, Whole Blood 96 mg/dL (60-115)
[2024-03-30 20:49] LABS: Vancomycin Random 15.9 mcg/mL (15-20)
[2024-03-30 20:49] LABS: Glucose, Whole Blood 196 mg/dL (60-115)
[2024-03-30] MEDS: Insulin Lispro 100 UNIT/ML 3 ML VIAL SUBCUT (22:12)
[2024-03-30] MEDS: Metoprolol Tartrate 50 MG TABLET PO (22:12)
[2024-03-30] MEDS: lamoTRIgine 100 MG TABLET 300 MG PO (22:12)
[2024-03-30] MEDS: Gabapentin 300 MG CAPSULE 600 MG PO (22:12)
[2024-03-30] MEDS: 0.9 % Sodium Chloride Flush 3 ML SYRINGE IVFLUSH (23:32)
[2024-03-31] VITALS (9 sets, daily range): BP systolic 130–165; BP diastolic 69–88; PULSE 67–97; RESP 16–20; TEMP 36.2–36.4; O2SAT 94–99
[2024-03-31] MEDS: Piperacillin Sodium/Tazobactam 3.375 GM in 0.9 % Sodium Chloride 50 ML IV ×3 (05:10→16:57)
--- NOTE | 2024-03-31 05:13 | PC.NURSE ---
pain medication offered but patient refused stating she is comfortable.
[2024-03-31 06:02] LABS: Creatinine Clr Calc Pharmacy 89.8; Estimated Glomerular Filt Rate > 60
[2024-03-31 07:22] LABS: Glucose, Whole Blood 93 mg/dL (60-115)
--- NOTE | 2024-03-31 07:34 | PM.PNORT ---
Subjective Subjective Date of Service: 03/31/24 Principal diagnosis: Right ankle fracture/dislocation and peripheral neuropathy Interval history: POD1 s/p removal of external fixator and placement into long leg cast Patient is resting in bed comfortably No overnight events Pain is managed No additional complaints Physical Exam Vital Signs: Vital Signs: Last Vital Signs Temp 97.4 F 03/31/24 07:23 Pulse 85 03/31/24 07:23 Resp 20 03/31/24 07:23 BP 165/88 H 03/31/24 07:23 Pulse Ox 99 03/31/24 07:23 O2 Del Method Room Air 03/31/24 07:23 O2 Flow Rate 2 03/30/24 19:11 FiO2 98 03/11/24 17:14 BMI result Body Mass Index 40.5 Const: General: cooperative, healthy appearing and no acute distress Resp: Effort & Inspection: normal respiratory effort and able to speak in complete sentences Cardio: Rate: regular rate Peripheral pulses: Peripheral pulses 2+ throughout GI: Palpation (GI): Soft to palpation Skin: Lesions: no lesions Rashes: no rashes Extrem: Other: RLE: cast is c/d/i. Able to move digits. Procedures Date of Service Date of Service: 03/31/24 Progress Note: A&P Assessment and plan (1) Peripheral neuropathy: Status: Acute (2) Diabetic ulcer of right foot: Status: Acute (3) Atrial fibrillation: Status: Acute (4) Diabetes mellitus: Status: Acute (5) Trimalleolar fracture of right ankle: Status: Acute Assessment and Plan: RLE: Keep cast c/d/i Elevate on three pillows above heart level Continue dressing changes with wound care nurse NWB RLE Time Spent With Patient Time: Total time managing care of this patient today ____ minutes. Quality Stroke Does the patient have a stroke diagnosis?: No VTE Prior VTE?: No VTE Risk Level:: Medical - moderate - high VTE Device Contraindication: N/A - Device Ordered VTE Drug Contraindication: N/A - Med Ordered
[2024-03-31] MEDS: Gabapentin 300 MG CAPSULE PO (09:00)
[2024-03-31] MEDS: Cholecalciferol (Vitamin D3) 25 MCG TABLET PO (09:00)
[2024-03-31] MEDS: DULoxetine HCl 30 MG CAPSULE.DR PO (09:00)
[2024-03-31] MEDS: DULoxetine HCl 60 MG CAPSULE.DR PO (09:00)
[2024-03-31] MEDS: Enoxaparin Sodium 40 MG/0.4 ML SYRINGE SUBCUT (09:00)
[2024-03-31] MEDS: vancomycin HCL 1,000 MG in 0.9 % Sodium Chloride 250 ML 270 MG IV (09:00)
[2024-03-31] MEDS: Atorvastatin Calcium 40 MG TABLET PO (09:01)
[2024-03-31] MEDS: Ascorbic Acid 500 MG TABLET PO (09:01)
[2024-03-31] MEDS: Metoprolol Tartrate 50 MG TABLET PO ×2 (09:01→20:34)
[2024-03-31] MEDS: Cyanocobalamin (Vitamin B-12) 1,000 MCG TABLET 1000 MCG PO (09:01)
[2024-03-31] MEDS: 0.9 % Sodium Chloride Flush 3 ML SYRINGE IVFLUSH ×2 (09:02→16:56)
[2024-03-31 11:15] LABS: Glucose, Whole Blood 108 mg/dL (60-115)
--- NOTE | 2024-03-31 11:38 | HO.POSTANES ---
Post Anesthesia Evaluation Post Anesthesia Evaluation Date of Service: 03/30/24 Vital Signs: Vital Signs Temp Pulse Resp BP Pulse Ox O2 Del Method 03/31/24 09:01 165/88 H 03/31/24 07:23 97.4 F 85 20 165/88 H 99 Room Air 03/31/24 03:14 97.4 F 67 18 138/88 95 CPAP 03/30/24 23:50 97.4 F 65 18 133/76 93 CPAP Anesthesia: General Mental Status: Awake Pain Control: Satisfactory Nausea/Vomiting: None Hydration: Adequate Anesthesia-Related Issues: No Anes. Related Issues
--- NOTE | 2024-03-31 14:02 | MHC.CM.PN ---
A clinical update has been sent to [facility] and 2 other [facility]. DP return to [facility] via BLS.
[2024-03-31 18:13] LABS: Glucose, Whole Blood 94 mg/dL (60-115)
[2024-03-31 20:18] LABS: Glucose, Whole Blood 97 mg/dL (60-115)
[2024-03-31] MEDS: lamoTRIgine 100 MG TABLET 300 MG PO (20:33)
[2024-03-31] MEDS: Gabapentin 300 MG CAPSULE 600 MG PO (20:33)
[2024-03-31 21:15] LABS: Vancomycin Random 19.8 mcg/mL (15-20)
--- NOTE | 2024-03-31 21:22 | HE.PHANOTE ---
[facility] Patients level came back this evening at 19.8. Decreasing dose to 750 mg Q12H from 1000 mg. Renal function (scr) slowly rising. Getting level after 2 doses of 750 mg. Level to be taken 04/01
[2024-03-31] MEDS: vancomycin HCL 750 MG in 0.9 % Sodium Chloride 250 ML 265 MG IV (22:59)
[2024-04-01] VITALS (9 sets, daily range): BP systolic 134–143; BP diastolic 73–89; PULSE 72–95; RESP 16–20; TEMP 36–36.6; O2SAT 92–97
[2024-04-01] MEDS: Piperacillin Sodium/Tazobactam 3.375 GM in 0.9 % Sodium Chloride 50 ML IV ×5 (00:11→22:47)
--- NOTE | 2024-04-01 02:48 | PC.NURSE ---
Pt sleeping with CPAP in place. Call solano within reach.
[2024-04-01] MEDS: Omeprazole 40 MG CAPSULE.DR PO (05:42)
[2024-04-01 07:00] LABS: Creatinine Clr Calc Pharmacy 87.4; Estimated Glomerular Filt Rate > 60
[2024-04-01 07:55] LABS: Glucose, Whole Blood 67 mg/dL (60-115)
[2024-04-01 09:05] LABS: Glucose, Whole Blood 97 mg/dL (60-115)
[2024-04-01] MEDS: Metoprolol Tartrate 50 MG TABLET PO ×2 (09:19→20:07)
[2024-04-01] MEDS: DULoxetine HCl 60 MG CAPSULE.DR PO (09:20)
[2024-04-01] MEDS: Ascorbic Acid 500 MG TABLET PO (09:20)
[2024-04-01] MEDS: Cyanocobalamin (Vitamin B-12) 1,000 MCG TABLET 1000 MCG PO (09:20)
[2024-04-01] MEDS: Atorvastatin Calcium 40 MG TABLET PO (09:20)
[2024-04-01] MEDS: DULoxetine HCl 30 MG CAPSULE.DR PO (09:20)
[2024-04-01] MEDS: Cholecalciferol (Vitamin D3) 25 MCG TABLET PO (09:20)
[2024-04-01] MEDS: Gabapentin 300 MG CAPSULE PO (09:20)
[2024-04-01] MEDS: vancomycin HCL 750 MG in 0.9 % Sodium Chloride 250 ML 265 MG IV ×2 (09:21→21:30)
[2024-04-01] MEDS: 0.9 % Sodium Chloride Flush 3 ML SYRINGE IVFLUSH ×3 (09:22→22:47)
[2024-04-01] MEDS: Enoxaparin Sodium 40 MG/0.4 ML SYRINGE SUBCUT (09:22)
--- NOTE | 2024-04-01 10:26 | PM.PNORT ---
Subjective Subjective Date of Service: 04/01/24 Principal diagnosis: Right ankle fracture/dislocation and peripheral neuropathy Interval history: POD2 s/p removal of external fixator and placement into long leg cast Patient is resting in bed comfortably No overnight events Pain is managed No additional complaints Physical Exam Vital Signs: Vital Signs: Last Vital Signs Temp 97.9 F 04/01/24 08:00 Pulse 78 04/01/24 09:19 Resp 18 04/01/24 08:00 BP 143/89 H 04/01/24 09:19 Pulse Ox 96 04/01/24 08:00 O2 Del Method Room Air 04/01/24 08:00 O2 Flow Rate 2 03/30/24 19:11 FiO2 98 03/11/24 17:14 BMI result Body Mass Index 40.5 Const: General: cooperative, healthy appearing and no acute distress Resp: Effort & Inspection: normal respiratory effort and able to speak in complete sentences Cardio: Rate: regular rate Peripheral pulses: Peripheral pulses 2+ throughout GI: Palpation (GI): Soft to palpation Skin: Lesions: no lesions Rashes: no rashes Extrem: Other: RLE: cast is c/d/i. Able to move digits. Anterior portion of cast removed-wound on tibia are clean and intact, no drainage. Wound on medial and lateral side of ankle clean and intact. Wound on dorsal aspect of foot inline with great toe, clean and intact. No evidence of pressure sores Pulses are intact. Procedures Date of Service Date of Service: 04/01/24 Progress Note: A&P Assessment and plan (1) Peripheral neuropathy: Status: Acute (2) Diabetic ulcer of right foot: Status: Acute (3) Atrial fibrillation: Status: Acute (4) Diabetes mellitus: Status: Acute (5) Trimalleolar fracture of right ankle: Status: Acute Assessment and Plan: RLE: Keep cast c/d/i Elevate on three pillows above heart level Continue dressing changes with wound care nurse - new dressings applied today and will change again tomorrow Foam dressing applied to heel to reduce chances of pressure sore NWB RLE Time Spent With Patient Time: Total time managing care of this patient today ____ minutes. Quality Stroke Does the patient have a stroke diagnosis?: No VTE Prior VTE?: No VTE Risk Level:: Medical - moderate - high VTE Device Contraindication: N/A - Device Ordered VTE Drug Contraindication: N/A - Med Ordered
--- NOTE | 2024-04-01 11:02 | P.OP_ITS ---
Operative Note Operative Note Date of Service: 03/30/24 Narrative: Date of Service: 03/30/24 Pre-op diagnosis: Unsatble fracture dislocation right ankle with severe peripheral diabetic neuropathy Post-op diagnosis: same Procedure: Removal of external fixation, irrigation and debridement and placement of long leg cast Implants: none Surgeon: Santiago Paulino MD Anesthesia: GETA Was an Staff Research Associate used for this Procedure?: Yes Staff Research Associate: Marie Senior Estimated blood loss (mL): 20 IV fluids (mL): 650 Pathology: none sent Condition: stable Disposition: PACU Patient was brought to the operating room and placed supine on the surgical table. She was prepped and draped in standard sterile fashion and a time out was called to identify proper site and proper procedure. I began by examining the external fixator. The tibial pins were clean and dry. The calcaneal pin however was loose and the calcaneus was sliding along its course from medial to lateral. The medial side was cut with a bold cutter once the clamps were removed and the pin was removed by hand. I then used power irrigation, a currette and a rongeur to remove necrotic tissue and debride the wound at the adjacent to where to ex fix had been placed. I curretted the pin sites including the bone. Once I was satisfied that all necrotic tissue was removed and the wounds were clean I packed it with silver alginate packing including the bone sites. Biplanar fluoro images then confirmed that the ankle was reduced although the fracture alignment was not optimal there was no way to improve it without skin incision. I therefore dressed the wound in sterile dressings and placed a copiously padded long leg cast. Pnce the cast was dry and hard it was bivlaved and the top half removed to expose the wounds. It was then joana wrapped in place and final fluoro images confirmed a reduced ankle. The padding was again checked and I was satisfied that there were no areas of pressure. Patient was awakened from sedation and brought to the recovery room in stable condition. There were no known complications.
[2024-04-01 11:40] LABS: Glucose, Whole Blood 94 mg/dL (60-115)
--- NOTE | 2024-04-01 12:19 | HO.WOUND ---
Wound Consult: Follow up 73yr old?female admitted to [facility] [place] on 02/3024 - See progress notes and H&P for detailed history.? Wound consult follow up with Surgical PA's at bedside for dressing change. Debridement and hardware removal by Dr. Paulino on 03/30/24. Anterior hard long cast removed by surgical PA's. Alginate noted to all pin sites removed and cleansed with NS. Mild erythema noted - improved overall swelling noted. The sites over all appear improved. All packing was removed with out complication. Recommend continue with Durafiber AG packing to allow for moisture management and antimicrobial properties. Patient overall tolerated well, distraction techniques worked well. The patient reports mild pain and discomfort to the right heel when assessed there is no erythema no redness and no warmth noted tissue remains intact. The heel was padded with Allyven foam dressing to aid in pressure redistribution while in the cast. Inpatient wound nurse will continue to follow. Plan to change dressing tomorrow to monitor and then return to bedside Friday for dressing change. Of note Durefiber AG may stay in place up to 5-7 days. Right Medial Removed Pin Site Right Lateral Removed Pin Site Right Leg removed Pin Sites 3 to the Tibia and 1 to the Dorsal Foot
[2024-04-01 16:21] LABS: Glucose, Whole Blood 100 mg/dL (60-115)
[2024-04-01] MEDS: lamoTRIgine 100 MG TABLET 300 MG PO (20:05)
[2024-04-01] MEDS: Gabapentin 300 MG CAPSULE 600 MG PO (20:06)
[2024-04-01] MEDS: Acetaminophen 325 MG TABLET 650 MG PO (20:13)
[2024-04-01 20:17] LABS: Glucose, Whole Blood 124 mg/dL (60-115)
[2024-04-01 20:40] LABS: Vancomycin Random 16.5 mcg/mL (15-20)
--- NOTE | 2024-04-01 21:16 | HE.PHANOTE ---
RE: VANCO DOSING Trough came back as 16.5. Will continue dose of 750 mg q12h, next trough is scheduled for 04/02/24 @1999.
[2024-04-02] VITALS (9 sets, daily range): BP systolic 137–179; BP diastolic 82–107; PULSE 76–89; RESP 17–20; TEMP 36–36.7; O2SAT 93–97
[2024-04-02] MEDS: Piperacillin Sodium/Tazobactam 3.375 GM in 0.9 % Sodium Chloride 50 ML IV ×4 (05:04→23:16)
[2024-04-02] MEDS: Omeprazole 40 MG CAPSULE.DR PO (05:44)
[2024-04-02 07:41] LABS: Glucose, Whole Blood 83 mg/dL (60-115)
--- NOTE | 2024-04-02 08:33 | HO.WOUND ---
Wound Consult: Follow up 73yr old?female admitted [place] [facility] [place] - See progress notes and H&P for detailed history.? Wound consult follow up with Surgical PA's at bedside for dressing change. Debridement and hardware removal by Dr. Paulino on 03/30/24. Anterior hard long cast removed by surgical PA's. Alginate noted to all pin sites removed and cleansed with NS. Increased mild erythema noted. All packing was removed with out complication. Recommend continue with Durafiber AG packing to allow for moisture management and antimicrobial properties. Patient overall tolerated well, distraction techniques worked well. The patient denies pain at todays assessment. The patient had a lot of involuntary movement during the dressing change despite techniques to aid in her relaxation there was movement throughout. Leads to concern for movement and displacement - providers assessed at bedside. Inpatient wound nurse will continue to follow. Plan to change dressing Friday04/06/24 with Ortho team. Of note Durafiber AG may stay in place up to 5-7 days. Right Medial Removed Pin Site 04/01/24 Right Medial Removed Pin Site 04/02/24 Right Lateral Removed Pin Site 04/01/24 Right Lateral Removed Pin Site 04/02/24 Right Leg removed Pin Sites 3 to the Tibia and 1 to the Dorsal Foot - mild erythema noted wound bed remains clean red moist tissue with scant yellow slough noted.
--- NOTE | 2024-04-02 08:38 | PM.PNORT ---
Subjective Subjective Date of Service: 04/02/24 Principal diagnosis: Right ankle fracture/dislocation and peripheral neuropathy Interval history: POD3 s/p removal of external fixator and placement into long leg cast Patient is resting in bed comfortably No overnight events Pain is managed No additional complaints Physical Exam Vital Signs: Vital Signs: Last Vital Signs Temp 96.9 F 04/02/24 07:18 Pulse 82 04/02/24 07:18 Resp 18 04/02/24 07:18 BP 179/107 H 04/02/24 07:18 Pulse Ox 96 04/02/24 07:18 O2 Del Method CPAP 04/02/24 07:18 O2 Flow Rate 2 03/30/24 19:11 FiO2 98 03/11/24 17:14 BMI result Body Mass Index 40.5 Const: General: cooperative, healthy appearing and no acute distress Resp: Effort & Inspection: normal respiratory effort and able to speak in complete sentences Cardio: Rate: regular rate Peripheral pulses: Peripheral pulses 2+ throughout GI: Palpation (GI): Soft to palpation Skin: Lesions: no lesions Rashes: no rashes Extrem: Other: RLE: cast is c/d/i. Able to move digits. Anterior portion of cast removed-wound on tibia are clean and intact, no drainage. Wound on medial and lateral side of ankle clean and intact. Wound on dorsal aspect of foot inline with great toe, clean and intact. No evidence of pressure sores Pulses are intact. Procedures Date of Service Date of Service: 04/02/24 Progress Note: A&P Assessment and plan (1) Peripheral neuropathy: Status: Acute (2) Diabetic ulcer of right foot: Status: Acute (3) Atrial fibrillation: Status: Acute (4) Diabetes mellitus: Status: Acute (5) Trimalleolar fracture of right ankle: Status: Acute Assessment and Plan: RLE: Keep cast c/d/i Elevate on three pillows above heart level Continue dressing changes with wound care nurse - new dressings applied today and will change again tomorrow Foam dressing applied to heel to reduce chances of pressure sore NWB RLE Time Spent With Patient Time: Total time managing care of this patient today ____ minutes. Quality Stroke Does the patient have a stroke diagnosis?: No VTE Prior VTE?: No VTE Risk Level:: Medical - moderate - high VTE Device Contraindication: N/A - Device Ordered VTE Drug Contraindication: N/A - Med Ordered
--- NOTE | 2024-04-02 08:51 | PM.EVENT ---
Event Note Date of Service: 04/02/24 Event Note: bp persistently elevated, will add losartan 25mg daily, monitor Time Spent With Patient Time: Total time managing care of this patient today ____ minutes.
[2024-04-02] MEDS: 0.9 % Sodium Chloride Flush 3 ML SYRINGE IVFLUSH ×3 (09:10→20:29)
[2024-04-02] MEDS: Losartan Potassium 25 MG TABLET PO (09:12)
[2024-04-02] MEDS: Cyanocobalamin (Vitamin B-12) 1,000 MCG TABLET 1000 MCG PO (09:12)
[2024-04-02] MEDS: Enoxaparin Sodium 40 MG/0.4 ML SYRINGE SUBCUT (09:12)
[2024-04-02] MEDS: Atorvastatin Calcium 40 MG TABLET PO (09:12)
[2024-04-02] MEDS: Metoprolol Tartrate 50 MG TABLET PO ×2 (09:12→20:29)
[2024-04-02] MEDS: Gabapentin 300 MG CAPSULE PO (09:13)
[2024-04-02] MEDS: Cholecalciferol (Vitamin D3) 25 MCG TABLET PO (09:13)
[2024-04-02] MEDS: Ascorbic Acid 500 MG TABLET PO (09:13)
[2024-04-02] MEDS: DULoxetine HCl 30 MG CAPSULE.DR PO (09:13)
[2024-04-02] MEDS: DULoxetine HCl 60 MG CAPSULE.DR PO (09:13)
[2024-04-02] MEDS: vancomycin HCL 750 MG in 0.9 % Sodium Chloride 250 ML 265 MG IV (09:22)
[2024-04-02 09:57] LABS: Creatinine Clr Calc Pharmacy 89.8; Estimated Glomerular Filt Rate > 60
[2024-04-02 11:14] LABS: Glucose, Whole Blood 95 mg/dL (60-115)
--- NOTE | 2024-04-02 11:55 | MHC.CM.PN ---
[facility] LIAISON ON SITE TO MEET WITH PT AND PROVIDE [facility] HAS NOT YET CONFIRMED BED OFFER PT ACCEPTING QUY[facility]TEZ BED OFFER AND PER ORTHO WILL LIKELY BE READY TO DC AFTER THE WEEKEND
[2024-04-02 16:24] LABS: Glucose, Whole Blood 114 mg/dL (60-115)
[2024-04-02] MEDS: Gabapentin 300 MG CAPSULE 600 MG PO (20:28)
[2024-04-02] MEDS: lamoTRIgine 100 MG TABLET 300 MG PO (20:29)
[2024-04-02 20:33] LABS: Glucose, Whole Blood 142 mg/dL (60-115)
[2024-04-02 20:38] LABS: Vancomycin Random 13.9 mcg/mL (15-20)
--- NOTE | 2024-04-02 20:48 | HE.PHANOTE ---
Re: Vanco Trough returned at 13.9mg/L. Renal function is stable. Due to indication, dose increased to 1,000mg Q12H, with predicted AUC 545 mg/L, and predicted trough of 17.5mg/L. Nex trough 04/03 @ 1999.
[2024-04-02] MEDS: vancomycin HCL 1,000 MG in 0.9 % Sodium Chloride 250 ML 270 MG IV (21:38)
[2024-04-03] VITALS (9 sets, daily range): BP systolic 128–150; BP diastolic 70–93; PULSE 75–99; RESP 17–20; TEMP 36.2–36.8; O2SAT 93–97
[2024-04-03] MEDS: Piperacillin Sodium/Tazobactam 3.375 GM in 0.9 % Sodium Chloride 50 ML IV ×3 (04:50→16:46)
[2024-04-03] MEDS: Omeprazole 40 MG CAPSULE.DR PO (05:51)
[2024-04-03 06:50] LABS: Creatinine Clr Calc Pharmacy 92.2; Estimated Glomerular Filt Rate > 60
[2024-04-03 07:39] LABS: Glucose, Whole Blood 89 mg/dL (60-115)
[2024-04-03] MEDS: Gabapentin 300 MG CAPSULE PO (07:46)
[2024-04-03] MEDS: DULoxetine HCl 30 MG CAPSULE.DR PO (07:46)
[2024-04-03] MEDS: Cholecalciferol (Vitamin D3) 25 MCG TABLET PO (07:46)
[2024-04-03] MEDS: Cyanocobalamin (Vitamin B-12) 1,000 MCG TABLET 1000 MCG PO (07:46)
[2024-04-03] MEDS: Ascorbic Acid 500 MG TABLET PO (07:47)
[2024-04-03] MEDS: DULoxetine HCl 60 MG CAPSULE.DR PO (07:47)
[2024-04-03] MEDS: Atorvastatin Calcium 40 MG TABLET PO (07:47)
[2024-04-03] MEDS: Enoxaparin Sodium 40 MG/0.4 ML SYRINGE SUBCUT (07:47)
[2024-04-03] MEDS: Losartan Potassium 25 MG TABLET PO (07:47)
[2024-04-03] MEDS: Metoprolol Tartrate 50 MG TABLET PO ×2 (07:47→21:24)
[2024-04-03] MEDS: Docusate Sodium 100 MG CAPSULE 200 MG PO (07:48)
[2024-04-03] MEDS: 0.9 % Sodium Chloride Flush 3 ML SYRINGE IVFLUSH ×2 (09:21→15:21)
[2024-04-03] MEDS: vancomycin HCL 1,000 MG in 0.9 % Sodium Chloride 250 ML 270 MG IV ×2 (09:22→21:25)
[2024-04-03 11:16] LABS: Glucose, Whole Blood 101 mg/dL (60-115)
[2024-04-03] MEDS: Acetaminophen 325 MG TABLET 650 MG PO (15:19)
[2024-04-03 16:17] LABS: Glucose, Whole Blood 86 mg/dL (60-115)
[2024-04-03 20:24] LABS: Glucose, Whole Blood 114 mg/dL (60-115)
[2024-04-03 20:28] LABS: Vancomycin Random 15.8 mcg/mL (15-20)
--- NOTE | 2024-04-03 20:36 | HE.PHANOTE ---
Re: Vanco Renal function improving. Trough returned at 15.8. Patient is therapeutic. Continue current dose of 1,000mg Q12H, with predicted AUC 544 mg/L and predicted trough 17.6 mg/L. Next random trough to be drawn 04/04 @ 20:00.
--- NOTE | 2024-04-03 21:01 | PM.PNORT ---
Subjective Subjective Date of Service: 04/03/24 Principal diagnosis: Right ankle fracture/dislocation and peripheral neuropathy Interval history: POD4 s/p removal of external fixator and placement into long leg cast Patient is resting in bed comfortably No overnight events Pain is managed No additional complaints Physical Exam Vital Signs: Vital Signs: Last Vital Signs Temp 98.2 F 04/03/24 19:44 Pulse 99 04/03/24 19:44 Resp 17 04/03/24 19:44 BP 143/93 H 04/03/24 19:44 Pulse Ox 95 04/03/24 19:44 O2 Del Method Room Air 04/03/24 19:44 O2 Flow Rate 2 03/30/24 19:11 FiO2 98 03/11/24 17:14 BMI result Body Mass Index 40.5 Const: General: cooperative, healthy appearing and no acute distress Resp: Effort & Inspection: normal respiratory effort and able to speak in complete sentences Cardio: Rate: regular rate Peripheral pulses: Peripheral pulses 2+ throughout GI: Palpation (GI): Soft to palpation Skin: Lesions: no lesions Rashes: no rashes Extrem: Other: RLE: cast is c/d/i. Able to move digits. Anterior portion of cast removed-wound on tibia are clean and intact, no drainage. Wound on medial and lateral side of ankle clean and intact. Wound on dorsal aspect of foot inline with great toe, clean and intact. No evidence of pressure sores Pulses are intact. Procedures Date of Service Date of Service: 04/03/24 Progress Note: A&P Assessment and plan (1) Peripheral neuropathy: Status: Acute (2) Diabetic ulcer of right foot: Status: Acute (3) Atrial fibrillation: Status: Acute (4) Diabetes mellitus: Status: Acute (5) Trimalleolar fracture of right ankle: Status: Acute Assessment and Plan: RLE: Keep cast c/d/i Elevate on three pillows above heart level Continue dressing changes with wound care nurse - new dressings applied today to two of the ibarra wounds and will change again friday Foam dressing applied to heel to reduce chances of pressure sore NWB RLE Time Spent With Patient Time: Total time managing care of this patient today ____ minutes. Quality Stroke Does the patient have a stroke diagnosis?: No VTE Prior VTE?: No VTE Risk Level:: Medical - moderate - high VTE Device Contraindication: N/A - Device Ordered VTE Drug Contraindication: N/A - Med Ordered
[2024-04-03] MEDS: lamoTRIgine 100 MG TABLET 300 MG PO (21:25)
[2024-04-03] MEDS: Gabapentin 300 MG CAPSULE 600 MG PO (21:26)
[2024-04-04] VITALS (8 sets, daily range): BP systolic 137–166; BP diastolic 74–95; PULSE 15–92; RESP 17–18; TEMP 36.1–36.9; O2SAT 93–97
[2024-04-04] MEDS: Omeprazole 40 MG CAPSULE.DR PO (05:31)
[2024-04-04 06:20] LABS: Creatinine Clr Calc Pharmacy 88.6; Estimated Glomerular Filt Rate > 60
[2024-04-04 07:45] LABS: Glucose, Whole Blood 80 mg/dL (60-115)
[2024-04-04] MEDS: Metoprolol Tartrate 50 MG TABLET PO ×2 (08:00→21:22)
[2024-04-04] MEDS: DULoxetine HCl 60 MG CAPSULE.DR PO (08:00)
[2024-04-04] MEDS: Ascorbic Acid 500 MG TABLET PO (08:00)
[2024-04-04] MEDS: Cholecalciferol (Vitamin D3) 25 MCG TABLET PO (08:00)
[2024-04-04] MEDS: Enoxaparin Sodium 40 MG/0.4 ML SYRINGE SUBCUT (08:00)
[2024-04-04] MEDS: Atorvastatin Calcium 40 MG TABLET PO (08:01)
[2024-04-04] MEDS: 0.9 % Sodium Chloride Flush 3 ML SYRINGE IVFLUSH ×3 (08:01→23:12)
[2024-04-04] MEDS: Losartan Potassium 25 MG TABLET PO (08:01)
[2024-04-04] MEDS: Gabapentin 300 MG CAPSULE PO (08:01)
[2024-04-04] MEDS: DULoxetine HCl 30 MG CAPSULE.DR PO (08:01)
[2024-04-04] MEDS: Cyanocobalamin (Vitamin B-12) 1,000 MCG TABLET 1000 MCG PO (08:01)
[2024-04-04] MEDS: vancomycin HCL 1,000 MG in 0.9 % Sodium Chloride 250 ML 270 MG IV ×2 (10:32→21:25)
[2024-04-04 11:25] LABS: Glucose, Whole Blood 87 mg/dL (60-115)
--- NOTE | 2024-04-04 11:43 | PM.PNORT ---
Subjective Subjective Date of Service: 04/04/24 Principal diagnosis: Right ankle fracture/dislocation and peripheral neuropathy Interval history: POD5 s/p removal of external fixator and placement into long leg cast Patient is resting in bed comfortably No overnight events Pain is managed No additional complaints Physical Exam Vital Signs: Vital Signs: Last Vital Signs Temp 98.4 F 04/04/24 07:24 Pulse 70 04/04/24 07:24 Resp 18 04/04/24 07:24 BP 138/94 H 04/04/24 07:24 Pulse Ox 96 04/04/24 07:24 O2 Del Method CPAP 04/04/24 07:24 O2 Flow Rate 2 03/30/24 19:11 FiO2 98 03/11/24 17:14 BMI result Body Mass Index 40.5 Const: General: cooperative, healthy appearing and no acute distress Resp: Effort & Inspection: normal respiratory effort and able to speak in complete sentences Cardio: Rate: regular rate Peripheral pulses: Peripheral pulses 2+ throughout GI: Palpation (GI): Soft to palpation Skin: Lesions: no lesions Rashes: no rashes Extrem: Other: RLE: cast is c/d/i. Able to move digits. Patient mentions no other concerns, and states that pain at the posterior aspect of the heel has resolved. Procedures Date of Service Date of Service: 04/04/24 Progress Note: A&P Assessment and plan (1) Peripheral neuropathy: Status: Acute (2) Diabetic ulcer of right foot: Status: Acute (3) Atrial fibrillation: Status: Acute (4) Diabetes mellitus: Status: Acute (5) Trimalleolar fracture of right ankle: Status: Acute Assessment and Plan: RLE: Keep cast c/d/i Elevate on three pillows above heart level Continue dressing changes with wound care nurse - new dressings applied Friday, will be changed again on Friday with wound nurse Foam dressing applied to heel to reduce chances of pressure sore NWB RLE Time Spent With Patient Time: Total time managing care of this patient today ____ minutes. Quality Stroke Does the patient have a stroke diagnosis?: No VTE Prior VTE?: No VTE Risk Level:: Medical - moderate - high VTE Device Contraindication: N/A - Device Ordered VTE Drug Contraindication: N/A - Med Ordered
[2024-04-04 16:46] LABS: Glucose, Whole Blood 90 mg/dL (60-115)
[2024-04-04 19:56] LABS: Glucose, Whole Blood 125 mg/dL (60-115)
[2024-04-04] MEDS: Acetaminophen 325 MG TABLET 650 MG PO (20:04)
[2024-04-04 20:38] LABS: Vancomycin Random 17.2 mcg/mL (15-20)
--- NOTE | 2024-04-04 20:44 | HE.PHANOTE ---
Re: Vanco Renal function improving. Trough returned at 17.2. Patient is therapeutic. Continue current dose of 1,000mg Q12H, with predicted AUC 549 mg/L and predicted trough 16.8 mg/L. Next random trough to be drawn 04/05 @ 20:00.
[2024-04-04] MEDS: Gabapentin 300 MG CAPSULE 600 MG PO (21:22)
[2024-04-04] MEDS: lamoTRIgine 100 MG TABLET 300 MG PO (21:22)
[2024-04-05] VITALS (10 sets, daily range): BP systolic 138–175; BP diastolic 74–98; PULSE 61–93; RESP 16–24; TEMP 36.2–36.6; O2SAT 94–98
[2024-04-05] MEDS: Omeprazole 40 MG CAPSULE.DR PO (05:47)
[2024-04-05 06:34] LABS: Creatinine Clr Calc Pharmacy 97.6; Estimated Glomerular Filt Rate > 60
[2024-04-05 07:45] LABS: Glucose, Whole Blood 85 mg/dL (60-115)
[2024-04-05] MEDS: Enoxaparin Sodium 40 MG/0.4 ML SYRINGE SUBCUT (08:32)
[2024-04-05] MEDS: Metoprolol Tartrate 50 MG TABLET PO ×2 (08:32→21:18)
[2024-04-05] MEDS: Gabapentin 300 MG CAPSULE PO (08:33)
[2024-04-05] MEDS: Atorvastatin Calcium 40 MG TABLET PO (08:33)
[2024-04-05] MEDS: DULoxetine HCl 30 MG CAPSULE.DR PO (08:33)
[2024-04-05] MEDS: DULoxetine HCl 60 MG CAPSULE.DR PO (08:33)
[2024-04-05] MEDS: Cholecalciferol (Vitamin D3) 25 MCG TABLET PO (08:33)
[2024-04-05] MEDS: Losartan Potassium 25 MG TABLET PO (08:33)
[2024-04-05] MEDS: Cyanocobalamin (Vitamin B-12) 1,000 MCG TABLET 1000 MCG PO (08:33)
[2024-04-05] MEDS: 0.9 % Sodium Chloride Flush 3 ML SYRINGE IVFLUSH ×3 (08:34→21:30)
[2024-04-05] MEDS: Ascorbic Acid 500 MG TABLET PO (08:34)
[2024-04-05] MEDS: vancomycin HCL 1,000 MG in 0.9 % Sodium Chloride 250 ML 270 MG IV ×2 (10:16→21:26)
[2024-04-05 11:15] LABS: Glucose, Whole Blood 104 mg/dL (60-115)
--- NOTE | 2024-04-05 14:43 | MHC.CM.PN ---
PT NOT YET MEDICALLY CLEARED DCP IS STR AT [facility]
[2024-04-05 16:40] LABS: Glucose, Whole Blood 98 mg/dL (60-115)
[2024-04-05 20:24] LABS: Glucose, Whole Blood 120 mg/dL (60-115)
[2024-04-05 21:17] LABS: Vancomycin Random 17.9 mcg/mL (15-20)
[2024-04-05] MEDS: lamoTRIgine 100 MG TABLET 300 MG PO (21:18)
[2024-04-05] MEDS: Gabapentin 300 MG CAPSULE 600 MG PO (21:18)
--- NOTE | 2024-04-05 21:36 | HE.PHANOTE ---
RE: VANCO DOSING Random came back as 17.9. Continue with dose of 1000 mg q12h, next random is scheduled on 04/06/24@1999.
[2024-04-06] VITALS (9 sets, daily range): BP systolic 126–147; BP diastolic 64–95; PULSE 77–88; RESP 16–20; TEMP 36–36.4; O2SAT 92–96
[2024-04-06] MEDS: Omeprazole 40 MG CAPSULE.DR PO (05:50)
[2024-04-06 07:22] LABS: Glucose, Whole Blood 95 mg/dL (60-115)
[2024-04-06 07:22] LABS: Creatinine Clr Calc Pharmacy 96.1; Estimated Glomerular Filt Rate > 60
[2024-04-06] MEDS: Losartan Potassium 25 MG TABLET PO (08:53)
[2024-04-06] MEDS: Enoxaparin Sodium 40 MG/0.4 ML SYRINGE SUBCUT (08:53)
[2024-04-06] MEDS: Atorvastatin Calcium 40 MG TABLET PO (08:53)
[2024-04-06] MEDS: DULoxetine HCl 60 MG CAPSULE.DR PO (08:53)
[2024-04-06] MEDS: Cyanocobalamin (Vitamin B-12) 1,000 MCG TABLET 1000 MCG PO (08:54)
[2024-04-06] MEDS: Gabapentin 300 MG CAPSULE PO (08:54)
[2024-04-06] MEDS: 0.9 % Sodium Chloride Flush 3 ML SYRINGE IVFLUSH ×3 (08:54→20:04)
[2024-04-06] MEDS: Ascorbic Acid 500 MG TABLET PO (08:54)
[2024-04-06] MEDS: Metoprolol Tartrate 50 MG TABLET PO ×2 (08:54→20:04)
[2024-04-06] MEDS: DULoxetine HCl 30 MG CAPSULE.DR PO (08:54)
[2024-04-06] MEDS: Cholecalciferol (Vitamin D3) 25 MCG TABLET PO (08:54)
--- NOTE | 2024-04-06 09:19 | HO.WOUND ---
Wound Consult: Follow up 73yr old?female admitted [place] [facility] [place] - See progress notes and H&P for detailed history.? Wound consult follow up with Surgical PA's at bedside for dressing change. Debridement and hardware removal by Dr. Paulino on 03/30/24. Anterior hard long cast removed by surgical PA's. Alginate noted to all pin sites removed and cleansed with NS. Decreased mild erythema noted. All packing was removed with out complication. Recommend continue with Durafiber AG packing to allow for moisture management and antimicrobial properties. Patient overall tolerated well, distraction techniques worked well. The patient denies pain at todays assessment. The patient had a lot of involuntary movement during the dressing change despite techniques to aid in her relaxation there was movement throughout. Leads to concern for movement and displacement - providers assessed at bedside. Inpatient wound nurse will continue to follow. Plan to change dressing 04/08/24 with Ortho team unless plan of care changes per ortho team. Of note Durafiber AG may stay in place up to 5-7 days. Right Medial Removed Pin Site 04/01/24 Right Medial Removed Pin Site 04/02/24 Right Medial Removed Pin Site 04/06/24 Right Lateral Removed Pin Site 04/01/24 Right Lateral Removed Pin Site 04/02/24 Right Lateral Removed Pin Site 04/06/24 Right Leg removed Pin Sites 3 to the Tibia and 1 to the Dorsal Foot - decreased erythema noted wound bed marbled with red moist tissue with yellow slough noted. 04/06/24 The Posterior heel / achilles area is noted for pain and tenderness - red pink blanchable erythema appears to correlate with cast - extra padding applied by the ortho team and foam dressings applied to pad and protect and allow for moist wound healing.
--- NOTE | 2024-04-06 09:35 | PM.PNORT ---
Subjective Subjective Date of Service: 04/06/24 Principal diagnosis: Right ankle fracture/dislocation and peripheral neuropathy Interval history: POD8 s/p removal of external fixator and placement into long leg cast Patient is resting in bed comfortably No overnight events Pain is managed No additional complaints Physical Exam Vital Signs: Vital Signs: Last Vital Signs Temp 96.9 F 04/06/24 07:25 Pulse 88 04/06/24 08:54 Resp 16 04/06/24 07:25 BP 126/88 04/06/24 08:54 Pulse Ox 94 04/06/24 07:25 O2 Del Method Room Air 04/06/24 07:25 O2 Flow Rate 2 03/30/24 19:11 FiO2 98 03/11/24 17:14 BMI result Body Mass Index 40.5 Const: General: cooperative, healthy appearing and no acute distress Resp: Effort & Inspection: normal respiratory effort and able to speak in complete sentences Cardio: Rate: regular rate Peripheral pulses: Peripheral pulses 2+ throughout GI: Palpation (GI): Soft to palpation Skin: Lesions: no lesions Rashes: no rashes Extrem: Other: RLE: cast is c/d/i. Able to move digits. wounds are clean and dry . Medial mal is prominent. No open skin. There is an area of redness along the achilles, no skin breakdown. Procedures Date of Service Date of Service: 04/06/24 Progress Note: A&P Assessment and plan (1) Peripheral neuropathy: Status: Acute (2) Diabetic ulcer of right foot: Status: Acute (3) Atrial fibrillation: Status: Acute (4) Diabetes mellitus: Status: Acute (5) Trimalleolar fracture of right ankle: Status: Acute Assessment and Plan: RLE: Keep cast c/d/i Elevate on three pillows above heart level Continue dressing changes with wound care nurse - new dressings applied Friday, will be changed again on Friday with wound nurse Foam dressing applied to heel to reduce chances of pressure sore NWB RLE Time Spent With Patient Time: Total time managing care of this patient today ____ minutes. Quality Stroke Does the patient have a stroke diagnosis?: No VTE Prior VTE?: No VTE Risk Level:: Medical - moderate - high VTE Device Contraindication: N/A - Device Ordered VTE Drug Contraindication: N/A - Med Ordered
[2024-04-06] MEDS: vancomycin HCL 1,000 MG in 0.9 % Sodium Chloride 250 ML 270 MG IV ×2 (10:15→21:32)
[2024-04-06] MEDS: Acetaminophen 325 MG TABLET 650 MG PO (10:15)
--- NOTE | 2024-04-06 10:56 | PC.NURSE ---
Addendum entered by Dorota Perez RN 04/06/24 11:09: OT ordered per PA. Original Note: Ortho PAUL Senior and wound care nurse at the bedside this AM to change cast/ wound. Pt endorsing pain after wound care and requesting oxy. PAUL Senior made aware via tiger text. Tylenol given with good effect, no new orders for oxy entered. PA asked via tiger text if pt should be seeing PT this visit, due to pt being NWB on right leg and being bed bound, no new orders at this time.
[2024-04-06 11:15] LABS: Glucose, Whole Blood 88 mg/dL (60-115)
[2024-04-06 16:23] LABS: Glucose, Whole Blood 101 mg/dL (60-115)
[2024-04-06] MEDS: lamoTRIgine 100 MG TABLET 300 MG PO (20:04)
[2024-04-06] MEDS: Gabapentin 300 MG CAPSULE 600 MG PO (20:04)
[2024-04-06 20:25] LABS: Glucose, Whole Blood 118 mg/dL (60-115)
[2024-04-06 20:52] LABS: Vancomycin Random 14.1 mcg/mL (15-20)
--- NOTE | 2024-04-06 21:06 | PM.EVENT ---
Event Note Date of Service: 04/06/24 Event Note: patient made NPO for potential OR tomorrow for cast change Time Spent With Patient Time: Total time managing care of this patient today ____ minutes.
[2024-04-07] VITALS (16 sets, daily range): BP systolic 130–167; BP diastolic 76–100; PULSE 72–100; RESP 16–20; TEMP 36.1–36.6; O2SAT 92–99
[2024-04-07 05:36] LABS: MANUAL DIFF FLAG NO
[2024-04-07 05:43] LABS: Basophils Absolute Auto 0.1 X10*3/uL (0.0-0.2); Basophils Percent Auto 0.8 % (0-2); Eosinophils Absolute Auto 0.3 X10*3/uL (0.0-0.4); Eosinophils Percent Auto 4.3 % (0-4); Hematocrit 28.4 % (37.0-47.0); Imm Gran Abs Auto 0.04 X10*3/uL (0.00-0.03); Imm Gran Pct Auto 0.5 % (0.0-0.4); Lymphocytes Absolute Auto 1.6 X10*3/uL (1.2-4.9); Lymphocytes Percent Auto 21.2 % (20-40); Mean Corpuscular HGB Conc 31.7 g/dl (31.0-35.0); Mean Corpuscular Hemoglobin 26.9 pg (27.0-33.0); Mean Platelet Volume 9.1 fL (9.4-12.3); Monocytes Absolute Auto 0.7 X10*3/uL (0.1-1.2); Monocytes Percent Auto 8.5 % (2-11); Neutrophils Absolute Auto 4.9 x10*3/uL (2.0-8.3); Neutrophils Percent Auto 64.7 % (45-73); Platelet Count 404 X10*3/uL (160-400); Red Blood Count 3.34 X10*6/uL (4.20-5.50); Red Cell Distribution Width 15.6 % (11.0-16.0); White Blood Count 7.6 X10*3/uL (4.8-10.8)
[2024-04-07 06:06] LABS: Anion Gap 12 (12-20); Blood Urea Nitrogen 10 mg/dL (9-16); Calcium 9.2 mg/dL (8.4-10.2); Carbon Dioxide 24 mmol/L (22-29); Chloride 111 mmol/L (96-108); Creatinine Clr Calc Pharmacy 96.1; Estimated Glomerular Filt Rate > 60; Glucose Fasting 99 mg/dL (60-99); Potassium 3.2 mmol/L (3.3-5.1); Sodium 144 mmol/L (135-145)
[2024-04-07 08:04] LABS: Glucose, Whole Blood 95 mg/dL (60-115)
[2024-04-07] MEDS: DULoxetine HCl 30 MG CAPSULE.DR PO (09:03)
[2024-04-07] MEDS: Atorvastatin Calcium 40 MG TABLET PO (09:03)
[2024-04-07] MEDS: Cholecalciferol (Vitamin D3) 25 MCG TABLET PO (09:03)
[2024-04-07] MEDS: Losartan Potassium 25 MG TABLET PO (09:03)
[2024-04-07] MEDS: Metoprolol Tartrate 50 MG TABLET PO ×2 (09:04→20:52)
[2024-04-07] MEDS: DULoxetine HCl 60 MG CAPSULE.DR PO (09:04)
[2024-04-07] MEDS: Gabapentin 300 MG CAPSULE PO (09:04)
[2024-04-07] MEDS: Ascorbic Acid 500 MG TABLET PO (09:04)
[2024-04-07] MEDS: Cyanocobalamin (Vitamin B-12) 1,000 MCG TABLET 1000 MCG PO (09:04)
[2024-04-07] MEDS: 0.9 % Sodium Chloride Flush 3 ML SYRINGE IVFLUSH ×2 (09:05→20:51)
--- NOTE | 2024-04-07 09:53 | PM.EVENT ---
Event Note Date of Service: 04/07/24 Event Note: mild hypokalemia, 3.2 40 of K added Time Spent With Patient Time: Total time managing care of this patient today ____ minutes.
[2024-04-07] MEDS: Potassium Chloride ER 20 MEQ TAB.ER.PRT 40 MEQ PO (10:57)
[2024-04-07] MEDS: vancomycin HCL 1,000 MG in 0.9 % Sodium Chloride 250 ML 270 MG IV ×2 (10:57→22:09)
[2024-04-07] MEDS: Acetaminophen 325 MG TABLET 650 MG PO (10:59)
[2024-04-07 11:14] LABS: Glucose, Whole Blood 86 mg/dL (60-115)
[2024-04-07 12:53] LABS: Glucose, Whole Blood 78 mg/dL (60-115)
[2024-04-07] MEDS: Lactated Ringers 1,000 ML 50 ML IVCONT (13:16)
[2024-04-07] MEDS: Dextrose 5 % 250 ML 20 ML IV (13:16)
--- NOTE | 2024-04-07 13:21 | HO.ANESPROP2 ---
HPI - Anesthesia Eval Consult details Narrative: 73 yo F admitted with ankle fracture presenting for cast change. Surgeon requested anesthesia due to patient's inability to keep her legs still. POC glucose was 78 in pre-op. PMF Active Problems Active Problems: All Active Problems Peripheral neuropathy (Acute) Persistent atrial fibrillation (Acute) Preoperative cardiovascular examination (Acute) MG (dyspnea on exertion) (Acute) Trimalleolar fracture of right ankle (Acute) Suicide attempt (Acute) SELMA treated with BiPAP (Acute) Diabetic ulcer of right foot (Acute) Atrial fibrillation (Acute) Borderline personality disorder (Acute) Major depressive disorder (Acute) Diabetes mellitus (Acute) Past Medical History Medical History Elevated cholesterol Anxiety SELMA treated with BiPAP Diabetic ulcer of right foot Atrial fibrillation Borderline personality disorder Major depressive disorder Diabetes mellitus Chronic anticoagulation Family History Family history of problems with anesthesia: No Surgical History Surgical History Hx of esophagogastroduodenoscopy Hx of colonoscopy History of carpal tunnel release of both wrists Hx of bilateral cataract extraction Hx of bilateral breast reduction surgery Hx of hysterectomy History of Problems with Anesthesia: No Social History Social History Household Members: None Housing: [facility] Other:: [place] [facility] Do you presently have visiting nurse or other home services: Yes Unable to assess alcohol history related to: Unable to respond 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 Patient Tobacco Use Status: Former Tobacco user Quit Date: 50 yrs ago service: No Meds Allergies Allergy/AdvReac Type Severity Reaction Status Date / Time [email or web address] [From Myrbetriq] Allergy Hallucinati Verified 03/09/24 13:21 ons Active Medications: Current Medications Acetaminophen (Acetaminophen 325 Mg Tablet) 650 mg PO Q6H PRN PRN Reason: Pain, Mild (Pain Scale 1-3) Last Admin: 04/07/24 10:59 Dose: 650 mg Ascorbic Acid (Ascorbic Acid 500 Mg Tablet) 500 mg PO DAILY [facility] Last Admin: 04/07/24 09:04 Dose: 500 mg Atorvastatin Calcium (Atorvastatin Calcium 40 Mg Tablet) 40 mg PO DAILY [facility] Last Admin: 04/07/24 09:03 Dose: 40 mg Cyanocobalamin (Cyanocobalamin (Vitamin B-12) 1,000 Mcg Tablet) 1,000 mcg PO DAILY [facility] Last Admin: 04/07/24 09:04 Dose: 1,000 mcg Docusate Sodium (Docusate Sodium 100 Mg Capsule) 200 mg PO DAILY [facility] Last Admin: 04/07/24 09:05 Dose: Not Given Duloxetine HCl (Duloxetine Hcl 30 Mg Capsule.Dr) 30 mg PO DAILY [facility] Last Admin: 04/07/24 09:03 Dose: 30 mg Duloxetine HCl (Duloxetine Hcl 60 Mg Capsule.Dr) 60 mg PO DAILY [facility] Last Admin: 04/07/24 09:04 Dose: 60 mg Enoxaparin Sodium (Enoxaparin Sodium 40 Mg/0.4 Ml Syringe) 40 mg SUBCUT Q24H [facility] Last Admin: 04/07/24 09:05 Dose: Not Given Gabapentin (Gabapentin 300 Mg Capsule) 300 mg PO DAILY [facility] Last Admin: 04/07/24 09:04 Dose: 300 mg Gabapentin (Gabapentin 300 Mg Capsule) 600 mg PO BEDTIME [facility] Last Admin: 04/06/24 20:04 Dose: 600 mg Glucose (Glucose Gel 15 Gm Gel..Gram.) 15 gm PO Q15M PRN; Protocol PRN Reason: per Hypoglycemia Standing Ord. Dextrose (D10) 250 mls @ 750 mls/hr IV Q15M PRN; Protocol PRN Reason: per Hypoglycemia Standing Ord. Last Infusion: 03/30/24 09:14 Dose: Infused Vancomycin HCl 1,000 mg/ (Sodium Chloride) 270 mls @ 270 mls/hr IV Q12H [facility] Last Infusion: 04/07/24 12:33 Dose: Infused Dextrose (D5w) 250 mls @ 0 mls/hr IV .Q0M PRN PRN Reason: Per Protocol Last Admin: 04/07/24 13:16 Dose: 20 mls/hr Lactated Ringer's (Lr) 1,000 mls @ 50 mls/hr IVCONT .Q20H [facility] Last Admin: 04/07/24 13:16 Dose: 50 mls/hr Insulin Human Lispro (Insulin Lispro 100 Unit/Ml 3 Ml Vial) 0 unit SUBCUT QIDACHS [facility]; Protocol Last Admin: 04/07/24 11:27 Dose: Not Given Lamotrigine (Lamotrigine 100 Mg Tablet) 300 mg PO BEDTIME [facility] Last Admin: 04/06/24 20:04 Dose: 300 mg Losartan Potassium (Losartan Potassium 25 Mg Tablet) 25 mg PO DAILY [facility]; Protocol Last Admin: 04/07/24 09:03 Dose: 25 mg Metoprolol Tartrate (Metoprolol Tartrate 50 Mg Tablet) 50 mg PO BID [facility]; Protocol Last Admin: 04/07/24 09:04 Dose: 50 mg Omeprazole (Omeprazole 40 Mg Capsule.Dr) 40 mg PO DAILY@0630 [facility] Last Admin: 04/07/24 05:49 Dose: Not Given Ondansetron HCl (Ondansetron Hcl 4 Mg/2 Ml Vial) 4 mg IVPUSH Q8H PRN PRN Reason: Nausea Sodium Chloride (0.9 % Sodium Chloride Flush 3 Ml Syringe) 3 ml IVFLUSH QSHIFT [facility] Last Admin: 04/07/24 09:05 Dose: 3 ml Sodium Hypochlorite (Sodium Hypochlorite 0.25% 473 Ml Solution) 1 appl TOPICAL BID [facility] Last Admin: 04/07/24 09:47 Dose: Not Given Vitamin D (Cholecalciferol (Vitamin D3) 25 Mcg Tablet) 25 mcg PO DAILY [facility] Last Admin: 04/07/24 09:03 Dose: 25 mcg Home Medications ?Medication ?Instructions ?Recorded ?Confirmed ?Last Taken ?Type ascorbic acid (vitamin C) 500 mg 500 mg PO DAILY 02/24/24 03/09/24 02/24/24 History tablet cholecalciferol (vitamin D3) 25 25 mcg PO DAILY 02/24/24 03/09/24 02/24/24 History mcg (1,000 unit) tablet cyanocobalamin (vitamin B-12) 1,000 mcg PO DAILY 02/24/24 03/09/24 02/24/24 History 1,000 mcg tablet duloxetine 30 mg capsule,delayed 30 mg PO DAILY 02/24/24 03/09/24 02/24/24 History release duloxetine 60 mg capsule,delayed 60 mg PO DAILY 02/24/24 03/09/24 02/24/24 History release gabapentin 300 mg capsule 300 mg PO DAILY 02/24/24 03/09/24 02/24/24 History gabapentin 300 mg capsule 600 mg PO BEDTIME 02/24/24 03/09/24 02/23/24 History lamotrigine 150 mg tablet 300 mg PO BEDTIME 02/24/24 03/09/24 02/23/24 History Exam Exam Date and Time: April 07, 2024 1320 Height,Weight and Vital Signs: Height 5 ft 7 in Weight 117.3 kg Last Vital Signs Temp 97.5 F 04/07/24 12:37 Pulse 78 04/07/24 12:37 Resp 16 04/07/24 12:37 BP 167/96 H 04/07/24 12:37 Pulse Ox 96 04/07/24 12:37 O2 Del Method Room Air 04/07/24 12:37 O2 Flow Rate 2 03/30/24 19:11 FiO2 98 03/11/24 17:14 Pertinent Lab Results Pertinent Lab Results: Laboratory Tests 03/09/24 03/09/24 03/10/24 16:10 20:14 06:07 WBC 5.9 RBC 3.64 L Hgb 10.3 L Hct 31.4 L MCV 86.3 MCH 28.3 MCHC 32.8 RDW 16.9 H Plt Count 354 D MPV 9.8 Immature Gran % (Auto) 0.5 H Neut % (Auto) 59.9 Lymph % (Auto) 27.6 [place] % (Auto) 8.1 Eos % (Auto) 3.4 Baso % (Auto) 0.5 Lymph # (Auto) 1.6 [place] # (Auto) 0.5 Eos # (Auto) 0.2 Baso # (Auto) 0.0 Abs Immat Gran (auto) 0.03 Absolute Neuts (auto) 3.5 Absolute Nucleated RBC 0.000 Nucleated RBC % (auto) 0.0 Hold Purple Top Sodium 142 Potassium 3.5 D Chloride 107 Carbon Dioxide 25 Anion Gap 14 BUN 11 Creatinine 0.67 Estim Creat Clear Calc 100.5 Estimated GFR > 60 POC Glucose 85 124 H Fasting Glucose 78 Estimat Average Glucose 108 Hemoglobin A1c % 5.4 Calcium 9.1 Random Vancomycin 03/10/24 03/10/24 03/10/24 07:17 11:00 14:02 WBC RBC Hgb Hct MCV MCH MCHC RDW Plt Count MPV Immature Gran % (Auto) Neut % (Auto) Lymph % (Auto) [place] % (Auto) Eos % (Auto) Baso % (Auto) Lymph # (Auto) [place] # (Auto) Eos # (Auto) Baso # (Auto) Abs Immat Gran (auto) Absolute Neuts (auto) Absolute Nucleated RBC Nucleated RBC % (auto) Hold Purple Top Sodium Potassium Chloride Carbon Dioxide Anion Gap BUN Creatinine Estim Creat Clear Calc Estimated GFR POC Glucose 76 78 76 Fasting Glucose Estimat Average Glucose Hemoglobin A1c % Calcium Random Vancomycin 03/10/24 03/10/24 03/11/24 17:09 21:16 06:19 WBC 5.9 RBC 3.79 L Hgb 10.7 L Hct 33.5 L MCV 88.4 MCH 28.2 MCHC 31.9 RDW 16.9 H Plt Count 282 MPV 11.5 Immature Gran % (Auto) Neut % (Auto) Lymph % (Auto) [place] % (Auto) Eos % (Auto) Baso % (Auto) Lymph # (Auto) [place] # (Auto) Eos # (Auto) Baso # (Auto) Abs Immat Gran (auto) Absolute Neuts (auto) Absolute Nucleated RBC 0.000 Nucleated RBC % (auto) 0.0 Hold Purple Top SEE NOTE Sodium 144 Potassium 4.1 Chloride 106 Carbon Dioxide 26 Anion Gap 16 BUN 5 L Creatinine 0.65 Estim Creat Clear Calc 103.5 Estimated GFR > 60 POC Glucose 94 93 Fasting Glucose 89 Estimat Average Glucose Hemoglobin A1c % Calcium 9.5 Random Vancomycin 03/11/24 03/11/24 03/11/24 07:47 11:26 13:47 WBC RBC Hgb Hct MCV MCH MCHC RDW Plt Count MPV Immature Gran % (Auto) Neut % (Auto) Lymph % (Auto) [place] % (Auto) Eos % (Auto) Baso % (Auto) Lymph # (Auto) [place] # (Auto) Eos # (Auto) Baso # (Auto) Abs Immat Gran (auto) Absolute Neuts (auto) Absolute Nucleated RBC Nucleated RBC % (auto) Hold Purple Top Sodium Potassium Chloride Carbon Dioxide Anion Gap BUN Creatinine Estim Creat Clear Calc Estimated GFR POC Glucose 89 94 81 Fasting Glucose Estimat Average Glucose Hemoglobin A1c % Calcium Random Vancomycin 03/11/24 03/11/24 03/12/24 16:23 20:23 05:39 WBC RBC Hgb Hct MCV MCH MCHC RDW Plt Count MPV Immature Gran % (Auto) Neut % (Auto) Lymph % (Auto) [place] % (Auto) Eos % (Auto) Baso % (Auto) Lymph # (Auto) [place] # (Auto) Eos # (Auto) Baso # (Auto) Abs Immat Gran (auto) Absolute Neuts (auto) Absolute Nucleated RBC Nucleated RBC % (auto) Hold Purple Top Sodium 142 Potassium 3.8 Chloride 105 Carbon Dioxide 27 Anion Gap 14 BUN 8 L Creatinine 0.67 Estim Creat Clear Calc 100.5 Estimated GFR > 60 POC Glucose 88 150 H Fasting Glucose 104 H Estimat Average Glucose Hemoglobin A1c % Calcium 9.0 Random Vancomycin 03/12/24 03/12/24 03/12/24 07:16 11:01 16:03 WBC RBC Hgb Hct MCV MCH MCHC RDW Plt Count MPV Immature Gran % (Auto) Neut % (Auto) Lymph % (Auto) [place] % (Auto) Eos % (Auto) Baso % (Auto) Lymph # (Auto) [place] # (Auto) Eos # (Auto) Baso # (Auto) Abs Immat Gran (auto) Absolute Neuts (auto) Absolute Nucleated RBC Nucleated RBC % (auto) Hold Purple Top Sodium Potassium Chloride Carbon Dioxide Anion Gap BUN Creatinine Estim Creat Clear Calc Estimated GFR POC Glucose 79 96 118 H Fasting Glucose Estimat Average Glucose Hemoglobin A1c % Calcium Random Vancomycin 03/12/24 03/13/24 03/13/24 19:30 05:51 07:07 WBC RBC Hgb Hct MCV MCH MCHC RDW Plt Count MPV Immature Gran % (Auto) Neut % (Auto) Lymph % (Auto) [place] % (Auto) Eos % (Auto) Baso % (Auto) Lymph # (Auto) [place] # (Auto) Eos # (Auto) Baso # (Auto) Abs Immat Gran (auto) Absolute Neuts (auto) Absolute Nucleated RBC Nucleated RBC % (auto) Hold Purple Top SEE NOTE Sodium 145 Potassium 3.7 Chloride 107 Carbon Dioxide 28 Anion Gap 14 BUN 11 Creatinine 0.71 Estim Creat Clear Calc 94.8 Estimated GFR > 60 POC Glucose 122 H 72 Fasting Glucose 81 Estimat Average Glucose Hemoglobin A1c % Calcium 9.8 D Random Vancomycin 03/13/24 03/13/24 03/13/24 11:06 16:05 19:20 WBC RBC Hgb Hct MCV MCH MCHC RDW Plt Count MPV Immature Gran % (Auto) Neut % (Auto) Lymph % (Auto) [place] % (Auto) Eos % (Auto) Baso % (Auto) Lymph # (Auto) [place] # (Auto) Eos # (Auto) Baso # (Auto) Abs Immat Gran (auto) Absolute Neuts (auto) Absolute Nucleated RBC Nucleated RBC % (auto) Hold Purple Top Sodium Potassium Chloride Carbon Dioxide Anion Gap BUN Creatinine Estim Creat Clear Calc Estimated GFR POC Glucose 91 94 126 H Fasting Glucose Estimat Average Glucose Hemoglobin A1c % Calcium Random Vancomycin 03/14/24 03/14/24 03/14/24 05:54 07:12 11:09 WBC RBC Hgb Hct MCV MCH MCHC RDW Plt Count MPV Immature Gran % (Auto) Neut % (Auto) Lymph % (Auto) [place] % (Auto) Eos % (Auto) Baso % (Auto) Lymph # (Auto) [place] # (Auto) Eos # (Auto) Baso # (Auto) Abs Immat Gran (auto) Absolute Neuts (auto) Absolute Nucleated RBC Nucleated RBC % (auto) Hold Purple Top SEE NOTE Sodium 146 H Potassium 3.5 Chloride 108 Carbon Dioxide 27 Anion Gap 15 BUN 10 Creatinine 0.70 Estim Creat Clear Calc 96.1 Estimated GFR > 60 POC Glucose 87 100 Fasting Glucose 91 Estimat Average Glucose Hemoglobin A1c % Calcium 9.3 Random Vancomycin 03/14/24 03/14/24 03/15/24 15:49 20:14 06:58 WBC RBC Hgb Hct MCV MCH MCHC RDW Plt Count MPV Immature Gran % (Auto) Neut % (Auto) Lymph % (Auto) [place] % (Auto) Eos % (Auto) Baso % (Auto) Lymph # (Auto) [place] # (Auto) Eos # (Auto) Baso # (Auto) Abs Immat Gran (auto) Absolute Neuts (auto) Absolute Nucleated RBC Nucleated RBC % (auto) Hold Purple Top Sodium Potassium Chloride Carbon Dioxide Anion Gap BUN Creatinine Estim Creat Clear Calc Estimated GFR POC Glucose 90 122 H 78 Fasting Glucose Estimat Average Glucose Hemoglobin A1c % Calcium Random Vancomycin 03/15/24 03/15/24 03/15/24 11:32 16:15 20:14 WBC RBC Hgb Hct MCV MCH MCHC RDW Plt Count MPV Immature Gran % (Auto) Neut % (Auto) Lymph % (Auto) [place] % (Auto) Eos % (Auto) Baso % (Auto) Lymph # (Auto) [place] # (Auto) Eos # (Auto) Baso # (Auto) Abs Immat Gran (auto) Absolute Neuts (auto) Absolute Nucleated RBC Nucleated RBC % (auto) Hold Purple Top Sodium Potassium Chloride Carbon Dioxide Anion Gap BUN Creatinine Estim Creat Clear Calc Estimated GFR POC Glucose 89 94 119 H Fasting Glucose Estimat Average Glucose Hemoglobin A1c % Calcium Random Vancomycin 03/16/24 03/16/24 03/16/24 07:05 11:07 16:16 WBC RBC Hgb Hct MCV MCH MCHC RDW Plt Count MPV Immature Gran % (Auto) Neut % (Auto) Lymph % (Auto) [place] % (Auto) Eos % (Auto) Baso % (Auto) Lymph # (Auto) [place] # (Auto) Eos # (Auto) Baso # (Auto) Abs Immat Gran (auto) Absolute Neuts (auto) Absolute Nucleated RBC Nucleated RBC % (auto) Hold Purple Top Sodium Potassium Chloride Carbon Dioxide Anion Gap BUN Creatinine Estim Creat Clear Calc Estimated GFR POC Glucose 84 112 92 Fasting Glucose Estimat Average Glucose Hemoglobin A1c % Calcium Random Vancomycin 03/16/24 03/17/24 03/17/24 19:39 06:53 11:11 WBC RBC Hgb Hct MCV MCH MCHC RDW Plt Count MPV Immature Gran % (Auto) Neut % (Auto) Lymph % (Auto) [place] % (Auto) Eos % (Auto) Baso % (Auto) Lymph # (Auto) [place] # (Auto) Eos # (Auto) Baso # (Auto) Abs Immat Gran (auto) Absolute Neuts (auto) Absolute Nucleated RBC Nucleated RBC % (auto) Hold Purple Top Sodium Potassium Chloride Carbon Dioxide Anion Gap BUN Creatinine Estim Creat Clear Calc Estimated GFR POC Glucose 105 85 94 Fasting Glucose Estimat Average Glucose Hemoglobin A1c % Calcium Random Vancomycin 03/17/24 03/17/24 03/18/24 16:19 20:23 07:23 WBC RBC Hgb Hct MCV MCH MCHC RDW Plt Count MPV Immature Gran % (Auto) Neut % (Auto) Lymph % (Auto) [place] % (Auto) Eos % (Auto) Baso % (Auto) Lymph # (Auto) [place] # (Auto) Eos # (Auto) Baso # (Auto) Abs Immat Gran (auto) Absolute Neuts (auto) Absolute Nucleated RBC Nucleated RBC % (auto) Hold Purple Top Sodium Potassium Chloride Carbon Dioxide Anion Gap BUN Creatinine Estim Creat Clear Calc Estimated GFR POC Glucose 113 118 H 79 Fasting Glucose Estimat Average Glucose Hemoglobin A1c % Calcium Random Vancomycin 03/18/24 03/18/24 03/18/24 11:25 17:43 20:16 WBC RBC Hgb Hct MCV MCH MCHC RDW Plt Count MPV Immature Gran % (Auto) Neut % (Auto) Lymph % (Auto) [place] % (Auto) Eos % (Auto) Baso % (Auto) Lymph # (Auto) [place] # (Auto) Eos # (Auto) Baso # (Auto) Abs Immat Gran (auto) Absolute Neuts (auto) Absolute Nucleated RBC Nucleated RBC % (auto) Hold Purple Top Sodium Potassium Chloride Carbon Dioxide Anion Gap BUN Creatinine Estim Creat Clear Calc Estimated GFR POC Glucose 122 H 107 146 H Fasting Glucose Estimat Average Glucose Hemoglobin A1c % Calcium Random Vancomycin 03/19/24 03/19/24 03/19/24 07:09 11:17 16:10 WBC RBC Hgb Hct MCV MCH MCHC RDW Plt Count MPV Immature Gran % (Auto) Neut % (Auto) Lymph % (Auto) [place] % (Auto) Eos % (Auto) Baso % (Auto) Lymph # (Auto) [place] # (Auto) Eos # (Auto) Baso # (Auto) Abs Immat Gran (auto) Absolute Neuts (auto) Absolute Nucleated RBC Nucleated RBC % (auto) Hold Purple Top Sodium Potassium Chloride Carbon Dioxide Anion Gap BUN Creatinine Estim Creat Clear Calc Estimated GFR POC Glucose 95 109 104 Fasting Glucose Estimat Average Glucose Hemoglobin A1c % Calcium Random Vancomycin 03/19/24 03/20/24 03/20/24 20:18 07:21 11:15 WBC RBC Hgb Hct MCV MCH MCHC RDW Plt Count MPV Immature Gran % (Auto) Neut % (Auto) Lymph % (Auto) [place] % (Auto) Eos % (Auto) Baso % (Auto) Lymph # (Auto) [place] # (Auto) Eos # (Auto) Baso # (Auto) Abs Immat Gran (auto) Absolute Neuts (auto) Absolute Nucleated RBC Nucleated RBC % (auto) Hold Purple Top Sodium Potassium Chloride Carbon Dioxide Anion Gap BUN Creatinine Estim Creat Clear Calc Estimated GFR POC Glucose 98 83 101 Fasting Glucose Estimat Average Glucose Hemoglobin A1c % Calcium Random Vancomycin 03/20/24 03/20/24 03/21/24 15:59 20:28 07:18 WBC RBC Hgb Hct MCV MCH MCHC RDW Plt Count MPV Immature Gran % (Auto) Neut % (Auto) Lymph % (Auto) [place] % (Auto) Eos % (Auto) Baso % (Auto) Lymph # (Auto) [place] # (Auto) Eos # (Auto) Baso # (Auto) Abs Immat Gran (auto) Absolute Neuts (auto) Absolute Nucleated RBC Nucleated RBC % (auto) Hold Purple Top Sodium Potassium Chloride Carbon Dioxide Anion Gap BUN Creatinine Estim Creat Clear Calc Estimated GFR POC Glucose 109 100 91 Fasting Glucose Estimat Average Glucose Hemoglobin A1c % Calcium Random Vancomycin 03/21/24 03/21/24 03/21/24 11:18 16:08 20:13 WBC RBC Hgb Hct MCV MCH MCHC RDW Plt Count MPV Immature Gran % (Auto) Neut % (Auto) Lymph % (Auto) [place] % (Auto) Eos % (Auto) Baso % (Auto) Lymph # (Auto) [place] # (Auto) Eos # (Auto) Baso # (Auto) Abs Immat Gran (auto) Absolute Neuts (auto) Absolute Nucleated RBC Nucleated RBC % (auto) Hold Purple Top Sodium Potassium Chloride Carbon Dioxide Anion Gap BUN Creatinine Estim Creat Clear Calc Estimated GFR POC Glucose 94 95 142 H Fasting Glucose Estimat Average Glucose Hemoglobin A1c % Calcium Random Vancomycin 03/22/24 03/22/24 03/22/24 07:22 11:21 16:03 WBC RBC Hgb Hct MCV MCH MCHC RDW Plt Count MPV Immature Gran % (Auto) Neut % (Auto) Lymph % (Auto) [place] % (Auto) Eos % (Auto) Baso % (Auto) Lymph # (Auto) [place] # (Auto) Eos # (Auto) Baso # (Auto) Abs Immat Gran (auto) Absolute Neuts (auto) Absolute Nucleated RBC Nucleated RBC % (auto) Hold Purple Top Sodium Potassium Chloride Carbon Dioxide Anion Gap BUN Creatinine Estim Creat Clear Calc Estimated GFR POC Glucose 82 116 H 93 Fasting Glucose Estimat Average Glucose Hemoglobin A1c % Calcium Random Vancomycin 03/22/24 03/23/24 03/23/24 20:21 07:23 11:29 WBC RBC Hgb Hct MCV MCH MCHC RDW Plt Count MPV Immature Gran % (Auto) Neut % (Auto) Lymph % (Auto) [place] % (Auto) Eos % (Auto) Baso % (Auto) Lymph # (Auto) [place] # (Auto) Eos # (Auto) Baso # (Auto) Abs Immat Gran (auto) Absolute Neuts (auto) Absolute Nucleated RBC Nucleated RBC % (auto) Hold Purple Top Sodium Potassium Chloride Carbon Dioxide Anion Gap BUN Creatinine Estim Creat Clear Calc Estimated GFR POC Glucose 101 85 98 Fasting Glucose Estimat Average Glucose Hemoglobin A1c % Calcium Random Vancomycin 03/23/24 03/23/24 03/24/24 16:19 20:04 07:05 WBC RBC Hgb Hct MCV MCH MCHC RDW Plt Count MPV Immature Gran % (Auto) Neut % (Auto) Lymph % (Auto) [place] % (Auto) Eos % (Auto) Baso % (Auto) Lymph # (Auto) [place] # (Auto) Eos # (Auto) Baso # (Auto) Abs Immat Gran (auto) Absolute Neuts (auto) Absolute Nucleated RBC Nucleated RBC % (auto) Hold Purple Top Sodium Potassium Chloride Carbon Dioxide Anion Gap BUN Creatinine Estim Creat Clear Calc Estimated GFR POC Glucose 107 125 H 109 Fasting Glucose Estimat Average Glucose Hemoglobin A1c % Calcium Random Vancomycin 03/24/24 03/24/24 03/24/24 11:15 12:21 16:18 WBC RBC Hgb Hct MCV MCH MCHC RDW Plt Count MPV Immature Gran % (Auto) Neut % (Auto) Lymph % (Auto) [place] % (Auto) Eos % (Auto) Baso % (Auto) Lymph # (Auto) [place] # (Auto) Eos # (Auto) Baso # (Auto) Abs Immat Gran (auto) Absolute Neuts (auto) Absolute Nucleated RBC Nucleated RBC % (auto) Hold Purple Top Sodium Potassium Chloride Carbon Dioxide Anion Gap BUN Creatinine Estim Creat Clear Calc Estimated GFR POC Glucose 99 104 111 Fasting Glucose Estimat Average Glucose Hemoglobin A1c % Calcium Random Vancomycin 03/24/24 03/24/24 03/25/24 17:09 20:43 07:37 WBC RBC Hgb Hct MCV MCH MCHC RDW Plt Count MPV Immature Gran % (Auto) Neut % (Auto) Lymph % (Auto) [place] % (Auto) Eos % (Auto) Baso % (Auto) Lymph # (Auto) [place] # (Auto) Eos # (Auto) Baso # (Auto) Abs Immat Gran (auto) Absolute Neuts (auto) Absolute Nucleated RBC Nucleated RBC % (auto) Hold Purple Top Sodium Potassium Chloride Carbon Dioxide Anion Gap BUN Creatinine 0.70 Estim Creat Clear Calc 96.1 Estimated GFR > 60 POC Glucose 130 H 101 Fasting Glucose Estimat Average Glucose Hemoglobin A1c % Calcium Random Vancomycin 03/25/24 03/25/24 03/25/24 09:24 11:31 16:26 WBC RBC Hgb Hct MCV MCH MCHC RDW Plt Count MPV Immature Gran % (Auto) Neut % (Auto) Lymph % (Auto) [place] % (Auto) Eos % (Auto) Baso % (Auto) Lymph # (Auto) [place] # (Auto) Eos # (Auto) Baso # (Auto) Abs Immat Gran (auto) Absolute Neuts (auto) Absolute Nucleated RBC Nucleated RBC % (auto) Hold Purple Top SEE NOTE Sodium Potassium Chloride Carbon Dioxide Anion Gap BUN Creatinine 0.74 Estim Creat Clear Calc 91.0 Estimated GFR > 60 POC Glucose 99 88 Fasting Glucose Estimat Average Glucose Hemoglobin A1c % Calcium Random Vancomycin 03/25/24 03/25/24 03/26/24 20:02 20:39 07:27 WBC RBC Hgb Hct MCV MCH MCHC RDW Plt Count MPV Immature Gran % (Auto) Neut % (Auto) Lymph % (Auto) [place] % (Auto) Eos % (Auto) Baso % (Auto) Lymph # (Auto) [place] # (Auto) Eos # (Auto) Baso # (Auto) Abs Immat Gran (auto) Absolute Neuts (auto) Absolute Nucleated RBC Nucleated RBC % (auto) Hold Purple Top Sodium Potassium Chloride Carbon Dioxide Anion Gap BUN Creatinine Estim Creat Clear Calc Estimated GFR POC Glucose 123 H 94 Fasting Glucose Estimat Average Glucose Hemoglobin A1c % Calcium Random Vancomycin 14.2 L 03/26/24 03/26/24 03/26/24 07:49 11:27 16:03 WBC RBC Hgb Hct MCV MCH MCHC RDW Plt Count MPV Immature Gran % (Auto) Neut % (Auto) Lymph % (Auto) [place] % (Auto) Eos % (Auto) Baso % (Auto) Lymph # (Auto) [place] # (Auto) Eos # (Auto) Baso # (Auto) Abs Immat Gran (auto) Absolute Neuts (auto) Absolute Nucleated RBC Nucleated RBC % (auto) Hold Purple Top Sodium Potassium Chloride Carbon Dioxide Anion Gap BUN Creatinine 0.69 Estim Creat Clear Calc 97.6 Estimated GFR > 60 POC Glucose 96 89 Fasting Glucose Estimat Average Glucose Hemoglobin A1c % Calcium Random Vancomycin 03/26/24 03/26/24 03/27/24 19:57 20:13 05:54 WBC RBC Hgb Hct MCV MCH MCHC RDW Plt Count MPV Immature Gran % (Auto) Neut % (Auto) Lymph % (Auto) [place] % (Auto) Eos % (Auto) Baso % (Auto) Lymph # (Auto) [place] # (Auto) Eos # (Auto) Baso # (Auto) Abs Immat Gran (auto) Absolute Neuts (auto) Absolute Nucleated RBC Nucleated RBC % (auto) Hold Purple Top SEE NOTE Sodium Potassium Chloride Carbon Dioxide Anion Gap BUN Creatinine 0.68 Estim Creat Clear Calc 99.0 Estimated GFR > 60 POC Glucose 116 H Fasting Glucose Estimat Average Glucose Hemoglobin A1c % Calcium Random Vancomycin 15.2 03/27/24 03/27/24 03/27/24 07:27 11:12 15:56 WBC RBC Hgb Hct MCV MCH MCHC RDW Plt Count MPV Immature Gran % (Auto) Neut % (Auto) Lymph % (Auto) [place] % (Auto) Eos % (Auto) Baso % (Auto) Lymph # (Auto) [place] # (Auto) Eos # (Auto) Baso # (Auto) Abs Immat Gran (auto) Absolute Neuts (auto) Absolute Nucleated RBC Nucleated RBC % (auto) Hold Purple Top Sodium Potassium Chloride Carbon Dioxide Anion Gap BUN Creatinine Estim Creat Clear Calc Estimated GFR POC Glucose 88 120 H 98 Fasting Glucose Estimat Average Glucose Hemoglobin A1c % Calcium Random Vancomycin 03/27/24 03/27/24 03/28/24 20:10 20:27 05:36 WBC RBC Hgb Hct MCV MCH MCHC RDW Plt Count MPV Immature Gran % (Auto) Neut % (Auto) Lymph % (Auto) [place] % (Auto) Eos % (Auto) Baso % (Auto) Lymph # (Auto) [place] # (Auto) Eos # (Auto) Baso # (Auto) Abs Immat Gran (auto) Absolute Neuts (auto) Absolute Nucleated RBC Nucleated RBC % (auto) Hold Purple Top Sodium Potassium Chloride Carbon Dioxide Anion Gap BUN Creatinine 0.70 Estim Creat Clear Calc 96.1 Estimated GFR > 60 POC Glucose 94 Fasting Glucose Estimat Average Glucose Hemoglobin A1c % Calcium Random Vancomycin 14.8 L 03/28/24 03/28/24 03/28/24 07:06 11:10 15:55 WBC RBC Hgb Hct MCV MCH MCHC RDW Plt Count MPV Immature Gran % (Auto) Neut % (Auto) Lymph % (Auto) [place] % (Auto) Eos % (Auto) Baso % (Auto) Lymph # (Auto) [place] # (Auto) Eos # (Auto) Baso # (Auto) Abs Immat Gran (auto) Absolute Neuts (auto) Absolute Nucleated RBC Nucleated RBC % (auto) Hold Purple Top Sodium Potassium Chloride Carbon Dioxide Anion Gap BUN Creatinine Estim Creat Clear Calc Estimated GFR POC Glucose 78 107 91 Fasting Glucose Estimat Average Glucose Hemoglobin A1c % Calcium Random Vancomycin 03/28/24 03/28/24 03/29/24 19:48 20:18 05:25 WBC RBC Hgb Hct MCV MCH MCHC RDW Plt Count MPV Immature Gran % (Auto) Neut % (Auto) Lymph % (Auto) [place] % (Auto) Eos % (Auto) Baso % (Auto) Lymph # (Auto) [place] # (Auto) Eos # (Auto) Baso # (Auto) Abs Immat Gran (auto) Absolute Neuts (auto) Absolute Nucleated RBC Nucleated RBC % (auto) Hold Purple Top SEE NOTE Sodium Potassium Chloride Carbon Dioxide Anion Gap BUN Creatinine 0.73 Estim Creat Clear Calc 92.2 Estimated GFR > 60 POC Glucose 129 H Fasting Glucose Estimat Average Glucose Hemoglobin A1c % Calcium Random Vancomycin 16.4 03/29/24 03/29/24 03/29/24 07:15 08:21 11:06 WBC RBC Hgb Hct MCV MCH MCHC RDW Plt Count MPV Immature Gran % (Auto) Neut % (Auto) Lymph % (Auto) [place] % (Auto) Eos % (Auto) Baso % (Auto) Lymph # (Auto) [place] # (Auto) Eos # (Auto) Baso # (Auto) Abs Immat Gran (auto) Absolute Neuts (auto) Absolute Nucleated RBC Nucleated RBC % (auto) Hold Purple Top Sodium Potassium Chloride Carbon Dioxide Anion Gap BUN Creatinine Estim Creat Clear Calc Estimated GFR POC Glucose 67 120 H 116 H Fasting Glucose Estimat Average Glucose Hemoglobin A1c % Calcium Random Vancomycin 03/29/24 03/29/24 03/29/24 16:36 20:03 20:12 WBC RBC Hgb Hct MCV MCH MCHC RDW Plt Count MPV Immature Gran % (Auto) Neut % (Auto) Lymph % (Auto) [place] % (Auto) Eos % (Auto) Baso % (Auto) Lymph # (Auto) [place] # (Auto) Eos # (Auto) Baso # (Auto) Abs Immat Gran (auto) Absolute Neuts (auto) Absolute Nucleated RBC Nucleated RBC % (auto) Hold Purple Top Sodium Potassium Chloride Carbon Dioxide Anion Gap BUN Creatinine Estim Creat Clear Calc Estimated GFR POC Glucose 90 104 Fasting Glucose Estimat Average Glucose Hemoglobin A1c % Calcium Random Vancomycin 17.2 03/30/24 03/30/24 03/30/24 05:54 07:24 09:35 WBC RBC Hgb Hct MCV MCH MCHC RDW Plt Count MPV Immature Gran % (Auto) Neut % (Auto) Lymph % (Auto) [place] % (Auto) Eos % (Auto) Baso % (Auto) Lymph # (Auto) [place] # (Auto) Eos # (Auto) Baso # (Auto) Abs Immat Gran (auto) Absolute Neuts (auto) Absolute Nucleated RBC Nucleated RBC % (auto) Hold Purple Top SEE NOTE Sodium Potassium Chloride Carbon Dioxide Anion Gap BUN Creatinine 0.76 Estim Creat Clear Calc 88.6 Estimated GFR > 60 POC Glucose 70 121 H Fasting Glucose Estimat Average Glucose Hemoglobin A1c % Calcium Random Vancomycin 03/30/24 03/30/24 03/30/24 10:57 13:09 14:24 WBC RBC Hgb Hct MCV MCH MCHC RDW Plt Count MPV Immature Gran % (Auto) Neut % (Auto) Lymph % (Auto) [place] % (Auto) Eos % (Auto) Baso % (Auto) Lymph # (Auto) [place] # (Auto) Eos # (Auto) Baso # (Auto) Abs Immat Gran (auto) Absolute Neuts (auto) Absolute Nucleated RBC Nucleated RBC % (auto) Hold Purple Top Sodium Potassium Chloride Carbon Dioxide Anion Gap BUN Creatinine Estim Creat Clear Calc Estimated GFR POC Glucose 90 73 87 Fasting Glucose Estimat Average Glucose Hemoglobin A1c % Calcium Random Vancomycin 03/30/24 03/30/24 03/30/24 16:17 17:21 20:21 WBC RBC Hgb Hct MCV MCH MCHC RDW Plt Count MPV Immature Gran % (Auto) Neut % (Auto) Lymph % (Auto) [place] % (Auto) Eos % (Auto) Baso % (Auto) Lymph # (Auto) [place] # (Auto) Eos # (Auto) Baso # (Auto) Abs Immat Gran (auto) Absolute Neuts (auto) Absolute Nucleated RBC Nucleated RBC % (auto) Hold Purple Top Sodium Potassium Chloride Carbon Dioxide Anion Gap BUN Creatinine Estim Creat Clear Calc Estimated GFR POC Glucose 100 96 Fasting Glucose Estimat Average Glucose Hemoglobin A1c % Calcium Random Vancomycin 15.9 03/30/24 03/31/24 03/31/24 20:46 05:22 05:25 WBC RBC Hgb Hct MCV MCH MCHC RDW Plt Count MPV Immature Gran % (Auto) Neut % (Auto) Lymph % (Auto) [place] % (Auto) Eos % (Auto) Baso % (Auto) Lymph # (Auto) [place] # (Auto) Eos # (Auto) Baso # (Auto) Abs Immat Gran (auto) Absolute Neuts (auto) Absolute Nucleated RBC Nucleated RBC % (auto) Hold Purple Top SEE NOTE Sodium Potassium Chloride Carbon Dioxide Anion Gap BUN Creatinine 0.75 Estim Creat Clear Calc 89.8 Estimated GFR > 60 POC Glucose 196 H Fasting Glucose Estimat Average Glucose Hemoglobin A1c % Calcium Random Vancomycin 03/31/24 03/31/24 03/31/24 07:15 11:08 16:03 WBC RBC Hgb Hct MCV MCH MCHC RDW Plt Count MPV Immature Gran % (Auto) Neut % (Auto) Lymph % (Auto) [place] % (Auto) Eos % (Auto) Baso % (Auto) Lymph # (Auto) [place] # (Auto) Eos # (Auto) Baso # (Auto) Abs Immat Gran (auto) Absolute Neuts (auto) Absolute Nucleated RBC Nucleated RBC % (auto) Hold Purple Top Sodium Potassium Chloride Carbon Dioxide Anion Gap BUN Creatinine Estim Creat Clear Calc Estimated GFR POC Glucose 93 108 94 Fasting Glucose Estimat Average Glucose Hemoglobin A1c % Calcium Random Vancomycin 03/31/24 03/31/24 04/01/24 20:01 20:13 05:54 WBC RBC Hgb Hct MCV MCH MCHC RDW Plt Count MPV Immature Gran % (Auto) Neut % (Auto) Lymph % (Auto) [place] % (Auto) Eos % (Auto) Baso % (Auto) Lymph # (Auto) [place] # (Auto) Eos # (Auto) Baso # (Auto) Abs Immat Gran (auto) Absolute Neuts (auto) Absolute Nucleated RBC Nucleated RBC % (auto) Hold Purple Top SEE NOTE Sodium Potassium Chloride Carbon Dioxide Anion Gap BUN Creatinine 0.77 Estim Creat Clear Calc 87.4 Estimated GFR > 60 POC Glucose 97 Fasting Glucose Estimat Average Glucose Hemoglobin A1c % Calcium Random Vancomycin 19.8 04/01/24 04/01/2424 07:33 09:02 11:28 WBC RBC Hgb Hct MCV MCH MCHC RDW Plt Count MPV Immature Gran % (Auto) Neut % (Auto) Lymph % (Auto) [place] % (Auto) Eos % (Auto) Baso % (Auto) Lymph # (Auto) [place] # (Auto) Eos # (Auto) Baso # (Auto) Abs Immat Gran (auto) Absolute Neuts (auto) Absolute Nucleated RBC Nucleated RBC % (auto) Hold Purple Top Sodium Potassium Chloride Carbon Dioxide Anion Gap BUN Creatinine Estim Creat Clear Calc Estimated GFR POC Glucose 67 97 94 Fasting Glucose Estimat Average Glucose Hemoglobin A1c % Calcium Random Vancomycin 04/01/24 04/01/24 04/01/24 16:04 20:03 20:05 WBC RBC Hgb Hct MCV MCH MCHC RDW Plt Count MPV Immature Gran % (Auto) Neut % (Auto) Lymph % (Auto) [place] % (Auto) Eos % (Auto) Baso % (Auto) Lymph # (Auto) [place] # (Auto) Eos # (Auto) Baso # (Auto) Abs Immat Gran (auto) Absolute Neuts (auto) Absolute Nucleated RBC Nucleated RBC % (auto) Hold Purple Top Sodium Potassium Chloride Carbon Dioxide Anion Gap BUN Creatinine Estim Creat Clear Calc Estimated GFR POC Glucose 100 124 H Fasting Glucose Estimat Average Glucose Hemoglobin A1c % Calcium Random Vancomycin 16.5 04/02/24 04/02/24 04/02/24 07:27 07:47 11:01 WBC RBC Hgb Hct MCV MCH MCHC RDW Plt Count MPV Immature Gran % (Auto) Neut % (Auto) Lymph % (Auto) [place] % (Auto) Eos % (Auto) Baso % (Auto) Lymph # (Auto) [place] # (Auto) Eos # (Auto) Baso # (Auto) Abs Immat Gran (auto) Absolute Neuts (auto) Absolute Nucleated RBC Nucleated RBC % (auto) Hold Purple Top SEE NOTE Sodium Potassium Chloride Carbon Dioxide Anion Gap BUN Creatinine 0.75 Estim Creat Clear Calc 89.8 Estimated GFR > 60 POC Glucose 83 95 Fasting Glucose Estimat Average Glucose Hemoglobin A1c % Calcium Random Vancomycin 04/02/24 04/02/24 04/02/24 16:20 19:50 20:24 WBC RBC Hgb Hct MCV MCH MCHC RDW Plt Count MPV Immature Gran % (Auto) Neut % (Auto) Lymph % (Auto) [place] % (Auto) Eos % (Auto) Baso % (Auto) Lymph # (Auto) [place] # (Auto) Eos # (Auto) Baso # (Auto) Abs Immat Gran (auto) Absolute Neuts (auto) Absolute Nucleated RBC Nucleated RBC % (auto) Hold Purple Top Sodium Potassium Chloride Carbon Dioxide Anion Gap BUN Creatinine Estim Creat Clear Calc Estimated GFR POC Glucose 114 142 H Fasting Glucose Estimat Average Glucose Hemoglobin A1c % Calcium Random Vancomycin 13.9 L 04/03/24 04/03/24 04/03/24 06:11 07:33 11:11 WBC RBC Hgb Hct MCV MCH MCHC RDW Plt Count MPV Immature Gran % (Auto) Neut % (Auto) Lymph % (Auto) [place] % (Auto) Eos % (Auto) Baso % (Auto) Lymph # (Auto) [place] # (Auto) Eos # (Auto) Baso # (Auto) Abs Immat Gran (auto) Absolute Neuts (auto) Absolute Nucleated RBC Nucleated RBC % (auto) Hold Purple Top SEE NOTE Sodium Potassium Chloride Carbon Dioxide Anion Gap BUN Creatinine 0.73 Estim Creat Clear Calc 92.2 Estimated GFR > 60 POC Glucose 89 101 Fasting Glucose Estimat Average Glucose Hemoglobin A1c % Calcium Random Vancomycin 04/03/24 04/03/24 04/03/24 16:06 20:04 20:11 WBC RBC Hgb Hct MCV MCH MCHC RDW Plt Count MPV Immature Gran % (Auto) Neut % (Auto) Lymph % (Auto) [place] % (Auto) Eos % (Auto) Baso % (Auto) Lymph # (Auto) [place] # (Auto) Eos # (Auto) Baso # (Auto) Abs Immat Gran (auto) Absolute Neuts (auto) Absolute Nucleated RBC Nucleated RBC % (auto) Hold Purple Top Sodium Potassium Chloride Carbon Dioxide Anion Gap BUN Creatinine Estim Creat Clear Calc Estimated GFR POC Glucose 86 114 Fasting Glucose Estimat Average Glucose Hemoglobin A1c % Calcium Random Vancomycin 15.8 04/04/24 04/04/24 04/04/24 05:53 07:22 11:12 WBC RBC Hgb Hct MCV MCH MCHC RDW Plt Count MPV Immature Gran % (Auto) Neut % (Auto) Lymph % (Auto) [place] % (Auto) Eos % (Auto) Baso % (Auto) Lymph # (Auto) [place] # (Auto) Eos # (Auto) Baso # (Auto) Abs Immat Gran (auto) Absolute Neuts (auto) Absolute Nucleated RBC Nucleated RBC % (auto) Hold Purple Top Sodium Potassium Chloride Carbon Dioxide Anion Gap BUN Creatinine 0.76 Estim Creat Clear Calc 88.6 Estimated GFR > 60 POC Glucose 80 87 Fasting Glucose Estimat Average Glucose Hemoglobin A1c % Calcium Random Vancomycin 04/04/24 04/04/24 04/04/24 16:32 19:51 20:03 WBC RBC Hgb Hct MCV MCH MCHC RDW Plt Count MPV Immature Gran % (Auto) Neut % (Auto) Lymph % (Auto) [place] % (Auto) Eos % (Auto) Baso % (Auto) Lymph # (Auto) [place] # (Auto) Eos # (Auto) Baso # (Auto) Abs Immat Gran (auto) Absolute Neuts (auto) Absolute Nucleated RBC Nucleated RBC % (auto) Hold Purple Top Sodium Potassium Chloride Carbon Dioxide Anion Gap BUN Creatinine Estim Creat Clear Calc Estimated GFR POC Glucose 90 125 H Fasting Glucose Estimat Average Glucose Hemoglobin A1c % Calcium Random Vancomycin 17.2 04/05/24 04/05/24 04/05/24 06:05 07:26 11:07 WBC RBC Hgb Hct MCV MCH MCHC RDW Plt Count MPV Immature Gran % (Auto) Neut % (Auto) Lymph % (Auto) [place] % (Auto) Eos % (Auto) Baso % (Auto) Lymph # (Auto) [place] # (Auto) Eos # (Auto) Baso # (Auto) Abs Immat Gran (auto) Absolute Neuts (auto) Absolute Nucleated RBC Nucleated RBC % (auto) Hold Purple Top SEE NOTE Sodium Potassium Chloride Carbon Dioxide Anion Gap BUN Creatinine 0.69 Estim Creat Clear Calc 97.6 Estimated GFR > 60 POC Glucose 85 104 Fasting Glucose Estimat Average Glucose Hemoglobin A1c % Calcium Random Vancomycin 04/05/24 04/05/24 04/05/24 16:14 20:16 20:26 WBC RBC Hgb Hct MCV MCH MCHC RDW Plt Count MPV Immature Gran % (Auto) Neut % (Auto) Lymph % (Auto) [place] % (Auto) Eos % (Auto) Baso % (Auto) Lymph # (Auto) [place] # (Auto) Eos # (Auto) Baso # (Auto) Abs Immat Gran (auto) Absolute Neuts (auto) Absolute Nucleated RBC Nucleated RBC % (auto) Hold Purple Top Sodium Potassium Chloride Carbon Dioxide Anion Gap BUN Creatinine Estim Creat Clear Calc Estimated GFR POC Glucose 98 120 H Fasting Glucose Estimat Average Glucose Hemoglobin A1c % Calcium Random Vancomycin 17.9 04/06/24 04/06/24 04/06/24 06:08 07:19 11:11 WBC RBC Hgb Hct MCV MCH MCHC RDW Plt Count MPV Immature Gran % (Auto) Neut % (Auto) Lymph % (Auto) [place] % (Auto) Eos % (Auto) Baso % (Auto) Lymph # (Auto) [place] # (Auto) Eos # (Auto) Baso # (Auto) Abs Immat Gran (auto) Absolute Neuts (auto) Absolute Nucleated RBC Nucleated RBC % (auto) Hold Purple Top Sodium Potassium Chloride Carbon Dioxide Anion Gap BUN Creatinine 0.70 Estim Creat Clear Calc 96.1 Estimated GFR > 60 POC Glucose 95 88 Fasting Glucose Estimat Average Glucose Hemoglobin A1c % Calcium Random Vancomycin 04/06/24 04/06/24 04/06/24 16:08 19:55 20:19 WBC RBC Hgb Hct MCV MCH MCHC RDW Plt Count MPV Immature Gran % (Auto) Neut % (Auto) Lymph % (Auto) [place] % (Auto) Eos % (Auto) Baso % (Auto) Lymph # (Auto) [place] # (Auto) Eos # (Auto) Baso # (Auto) Abs Immat Gran (auto) Absolute Neuts (auto) Absolute Nucleated RBC Nucleated RBC % (auto) Hold Purple Top Sodium Potassium Chloride Carbon Dioxide Anion Gap BUN Creatinine Estim Creat Clear Calc Estimated GFR POC Glucose 101 118 H Fasting Glucose Estimat Average Glucose Hemoglobin A1c % Calcium Random Vancomycin 14.1 L 04/07/24 04/07/24 04/07/24 05:20 07:32 11:09 WBC 7.6 RBC 3.34 L Hgb 9.0 L Hct 28.4 L MCV 85.0 MCH 26.9 L MCHC 31.7 RDW 15.6 Plt Count 404 H D MPV 9.1 L Immature Gran % (Auto) 0.5 H Neut % (Auto) 64.7 Lymph % (Auto) 21.2 [place] % (Auto) 8.5 Eos % (Auto) 4.3 H Baso % (Auto) 0.8 Lymph # (Auto) 1.6 [place] # (Auto) 0.7 Eos # (Auto) 0.3 Baso # (Auto) 0.1 Abs Immat Gran (auto) 0.04 H Absolute Neuts (auto) 4.9 Absolute Nucleated RBC 0.000 Nucleated RBC % (auto) 0.0 Hold Purple Top Sodium 144 Potassium 3.2 L Chloride 111 H Carbon Dioxide 24 Anion Gap 12 BUN 10 Creatinine 0.70 Estim Creat Clear Calc 96.1 Estimated GFR > 60 POC Glucose 95 86 Fasting Glucose 99 Estimat Average Glucose Hemoglobin A1c % Calcium 9.2 Random Vancomycin 04/07/24 12:48 WBC RBC Hgb Hct MCV MCH MCHC RDW Plt Count MPV Immature Gran % (Auto) Neut % (Auto) Lymph % (Auto) [place] % (Auto) Eos % (Auto) Baso % (Auto) Lymph # (Auto) [place] # (Auto) Eos # (Auto) Baso # (Auto) Abs Immat Gran (auto) Absolute Neuts (auto) Absolute Nucleated RBC Nucleated RBC % (auto) Hold Purple Top Sodium Potassium Chloride Carbon Dioxide Anion Gap BUN Creatinine Estim Creat Clear Calc Estimated GFR POC Glucose 78 Fasting Glucose Estimat Average Glucose Hemoglobin A1c % Calcium Random Vancomycin Airway Mallampati Class: II TM Dist: >3cm Neck ROM: Full Loose/Missing/Broken Teeth: Yes (several broken teeth) Heart: S1S2 Lungs: CTAB Assessment and Plan Assessment Anesthesia Assessment: Anesthesia Plan Discussed and Chart Reviewed Final Anesthetic Review Family History of Problems with Anesthesia: No History of Problems with Anesthesia: No NPO: Yes ASA Class: III Final Preanesthetic Review: No Changes in Pt Med Stat, Meds/Allgs Chart Reviewed, Consent Obtained/Reviewed and Anes Risks/Benef Reviewed Patient Risk: Intermediate Procedure Risk: Low Anesthetic Plan Anesthetic Plan: GA and Agree w/ Assess. and Plan Disposition: Standard PACU
--- NOTE | 2024-04-07 14:35 | MHC.CM.PN ---
EMR reviewed. Patient not medically cleared for dc. DP: Jesse Mcgovern for STR when medically cleared. CM will continue to follow.
--- NOTE | 2024-04-07 15:45 | P.BOP_ITS ---
Brief Operative Note Date of Service: 04/07/24 Pre-op diagnosis: fracture dislocation right ankle with severe peripheral neuropathy Post-op diagnosis: same Procedure: Irrigation and wound care, exchange casting RLE Surgeon: Santiago Paulino MD Anesthesia: GLMA Was an Supervisor [employer] used for this Procedure?: No Estimated blood loss (mL): 0 IV fluids (mL): 300 Pathology: none sent Condition: stable Disposition: PACU
[2024-04-07 15:58] LABS: Glucose, Whole Blood 86 mg/dL (60-115)
[2024-04-07 17:01] LABS: Glucose, Whole Blood 107 mg/dL (60-115)
[2024-04-07 19:56] LABS: Glucose, Whole Blood 195 mg/dL (60-115)
[2024-04-07 20:33] LABS: Vancomycin Random 17.2 mcg/mL (15-20)
--- NOTE | 2024-04-07 20:44 | HE.PHANOTE ---
RE: VANCO DOSING Random came back as 17.2. Will continue with dose of 1000 mg q12h, next random is scheduled for .
[2024-04-07] MEDS: Insulin Lispro 100 UNIT/ML 3 ML VIAL SUBCUT (20:50)
[2024-04-07] MEDS: lamoTRIgine 100 MG TABLET 300 MG PO (20:50)
[2024-04-07] MEDS: Gabapentin 300 MG CAPSULE 600 MG PO (20:51)
[2024-04-08 03:17] VITALS: BP 137/83; PULSE 83; RESP 18; TEMP 36; O2SAT 96
[2024-04-08] MEDS: Acetaminophen 325 MG TABLET 650 MG PO ×2 (03:27→14:54)
[2024-04-08] MEDS: Omeprazole 40 MG CAPSULE.DR PO (05:18)
[2024-04-08 05:26] LABS: MANUAL DIFF FLAG NO
[2024-04-08 05:32] LABS: Basophils Percent Auto 0.4 % (0-2); Hematocrit 28.6 % (37.0-47.0); Hemoglobin 9.1 g/dl (12.0-16.0); Imm Gran Abs Auto 0.07 X10*3/uL (0.00-0.03); Lymphocytes Absolute Auto 1.3 X10*3/uL (1.2-4.9); Lymphocytes Percent Auto 19.5 % (20-40); Mean Corpuscular HGB Conc 31.8 g/dl (31.0-35.0); Mean Corpuscular Hemoglobin 27.2 pg (27.0-33.0); Mean Corpuscular Volume 85.4 fL (80.0-98.0); Mean Platelet Volume 9.1 fL (9.4-12.3); Monocytes Absolute Auto 0.3 X10*3/uL (0.1-1.2); Monocytes Percent Auto 4.9 % (2-11); Neutrophils Percent Auto 74.2 % (45-73); Platelet Count 384 X10*3/uL (160-400); Red Blood Count 3.35 X10*6/uL (4.20-5.50); Red Cell Distribution Width 15.7 % (11.0-16.0); White Blood Count 6.8 X10*3/uL (4.8-10.8)
[2024-04-08 05:49] LABS: Anion Gap 14 (12-20); Blood Urea Nitrogen 14 mg/dL (9-16); Calcium 9.6 mg/dL (8.4-10.2); Carbon Dioxide 22 mmol/L (22-29); Chloride 111 mmol/L (96-108); Creatinine Clr Calc Pharmacy 88.6; Estimated Glomerular Filt Rate > 60; Glucose Fasting 127 mg/dL (60-99); Potassium 3.9 mmol/L (3.3-5.1); Sodium 143 mmol/L (135-145)
[2024-04-08 07:12] VITALS: BP 144/83; PULSE 89; RESP 18; TEMP 36.5; O2SAT 94
[2024-04-08 07:19] LABS: Glucose, Whole Blood 110 mg/dL (60-115)
[2024-04-08] MEDS: Enoxaparin Sodium 40 MG/0.4 ML SYRINGE SUBCUT (09:00)
[2024-04-08] MEDS: Atorvastatin Calcium 40 MG TABLET PO (09:01)
[2024-04-08] MEDS: Losartan Potassium 25 MG TABLET PO (09:01)
[2024-04-08] MEDS: Cyanocobalamin (Vitamin B-12) 1,000 MCG TABLET 1000 MCG PO (09:01)
[2024-04-08] MEDS: DULoxetine HCl 30 MG CAPSULE.DR PO (09:01)
[2024-04-08] MEDS: 0.9 % Sodium Chloride Flush 3 ML SYRINGE IVFLUSH ×2 (09:01→14:54)
[2024-04-08] MEDS: Ascorbic Acid 500 MG TABLET PO (09:01)
[2024-04-08] MEDS: Docusate Sodium 100 MG CAPSULE 200 MG PO (09:01)
[2024-04-08] MEDS: Metoprolol Tartrate 50 MG TABLET PO ×2 (09:01→22:35)
[2024-04-08] MEDS: Gabapentin 300 MG CAPSULE PO (09:01)
[2024-04-08] MEDS: Cholecalciferol (Vitamin D3) 25 MCG TABLET PO (09:01)
[2024-04-08] MEDS: DULoxetine HCl 60 MG CAPSULE.DR PO (09:01)
[2024-04-08] MEDS: vancomycin HCL 1,000 MG in 0.9 % Sodium Chloride 250 ML 270 MG IV (09:02)
[2024-04-08 11:09] LABS: Glucose, Whole Blood 99 mg/dL (60-115)
--- NOTE | 2024-04-08 15:24 | HO.POSTANES ---
Post Anesthesia Evaluation Post Anesthesia Evaluation Date of Service: 04/07/24 Vital Signs: Vital Signs Temp Pulse Resp BP Pulse Ox O2 Del Method 04/08/24 07:12 97.7 F 89 18 144/83 H 94 Room Air Anesthesia: General Mental Status: Awake Pain Control: Satisfactory Nausea/Vomiting: None Hydration: Adequate Anesthesia-Related Issues: No Anes. Related Issues
--- NOTE | 2024-04-08 15:28 | MHC.CM.PN ---
Per Ortho PA patient is not medically cleared, requiring daily dressing changes that ortho prefers to manage. Jesse Mcgovern updated. CM will continue to follow.
[2024-04-08 16:00] VITALS: BP 138/78; PULSE 80; RESP 12; TEMP 36.2; O2SAT 92
[2024-04-08 16:31] LABS: Glucose, Whole Blood 118 mg/dL (60-115)
--- NOTE | 2024-04-08 18:02 | PM.PNORT ---
Subjective Subjective Date of Service: 04/08/24 Principal diagnosis: Right ankle fracture/dislocation and peripheral neuropathy Interval history: POD9 s/p removal of external fixator and placement into long leg cast Patient is resting in bed comfortably No overnight events Pain is managed No additional complaints Physical Exam Vital Signs: Vital Signs: Last Vital Signs Temp 97.1 F 04/08/24 16:00 Pulse 80 04/08/24 16:00 Resp 12 04/08/24 16:00 BP 138/78 04/08/24 16:00 Pulse Ox 92 04/08/24 16:00 O2 Del Method Room Air 04/08/24 16:00 O2 Flow Rate 6 04/07/24 15:50 FiO2 98 03/11/24 17:14 BMI result Body Mass Index 40.5 Const: General: cooperative, healthy appearing and no acute distress Resp: Effort & Inspection: normal respiratory effort and able to speak in complete sentences Cardio: Rate: regular rate Peripheral pulses: Peripheral pulses 2+ throughout GI: Palpation (GI): Soft to palpation Skin: Lesions: no lesions Rashes: no rashes Extrem: Other: RLE: cast is c/d/i. Able to move digits. Procedures Date of Service Date of Service: 04/08/24 Progress Note: A&P Assessment and plan (1) Peripheral neuropathy: Status: Acute (2) Diabetic ulcer of right foot: Status: Acute (3) Atrial fibrillation: Status: Acute (4) Diabetes mellitus: Status: Acute (5) Trimalleolar fracture of right ankle: Status: Acute Assessment and Plan: RLE: Keep cast c/d/i Elevate on three pillows above heart level Continue dressing changes with wound care nurse Foam dressing applied to heel to reduce chances of pressure sore NWB RLE Time Spent With Patient Time: Total time managing care of this patient today ____ minutes. Quality Stroke Does the patient have a stroke diagnosis?: No VTE Prior VTE?: No VTE Risk Level:: Medical - moderate - high VTE Device Contraindication: N/A - Device Ordered VTE Drug Contraindication: N/A - Med Ordered
[2024-04-08 20:00] VITALS: BP 141/95; PULSE 92; RESP 16; TEMP 36.5; O2SAT 95
[2024-04-08 20:17] LABS: Vancomycin Random 18.4 mcg/mL (15-20)
[2024-04-08 20:34] LABS: Glucose, Whole Blood 105 mg/dL (60-115)
--- NOTE | 2024-04-08 20:45 | HE.PHANOTE ---
RE: VANCO DOSING Random came back as 18.4 which is higher than prediction of 16.5. Because of concern of level being supratherapeutic tomorrow if continuing the dose of 1000 mg q12h, dose is reduced to 750 mg q12h. Next random is scheduled for 04/09/24 @1999.
[2024-04-08] MEDS: Gabapentin 300 MG CAPSULE 600 MG PO (22:34)
[2024-04-08 22:35] VITALS: BP 141/95; PULSE 92
[2024-04-08] MEDS: lamoTRIgine 100 MG TABLET 300 MG PO (22:35)
[2024-04-08] MEDS: vancomycin HCL 750 MG in 0.9 % Sodium Chloride 250 ML 265 MG IV (22:42)
[2024-04-09] VITALS (9 sets, daily range): BP systolic 147–155; BP diastolic 70–85; PULSE 70–91; RESP 14–26; TEMP 36.1–37; O2SAT 92–96
[2024-04-09] MEDS: Omeprazole 40 MG CAPSULE.DR PO (06:07)
[2024-04-09 06:23] LABS: MANUAL DIFF FLAG NO
[2024-04-09 06:30] LABS: Basophils Absolute Auto 0.1 X10*3/uL (0.0-0.2); Eosinophils Absolute Auto 0.2 X10*3/uL (0.0-0.4); Hematocrit 29.4 % (37.0-47.0); Hemoglobin 9.2 g/dl (12.0-16.0); Imm Gran Abs Auto 0.04 X10*3/uL (0.00-0.03); Imm Gran Pct Auto 0.5 % (0.0-0.4); Lymphocytes Absolute Auto 1.9 X10*3/uL (1.2-4.9); Lymphocytes Percent Auto 25.4 % (20-40); Mean Corpuscular HGB Conc 31.3 g/dl (31.0-35.0); Mean Corpuscular Volume 86.2 fL (80.0-98.0); Mean Platelet Volume 9.4 fL (9.4-12.3); Monocytes Absolute Auto 0.7 X10*3/uL (0.1-1.2); Monocytes Percent Auto 9.3 % (2-11); Neutrophils Absolute Auto 4.5 x10*3/uL (2.0-8.3); Neutrophils Percent Auto 60.8 % (45-73); Platelet Count 387 X10*3/uL (160-400); Red Blood Count 3.41 X10*6/uL (4.20-5.50); Red Cell Distribution Width 15.9 % (11.0-16.0); White Blood Count 7.3 X10*3/uL (4.8-10.8)
[2024-04-09 06:43] LABS: Anion Gap 10 (12-20); Blood Urea Nitrogen 14 mg/dL (9-16); Calcium 9.7 mg/dL (8.4-10.2); Carbon Dioxide 27 mmol/L (22-29); Chloride 112 mmol/L (96-108); Creatinine Clr Calc Pharmacy 88.6; Estimated Glomerular Filt Rate > 60; Glucose Fasting 95 mg/dL (60-99); Potassium 3.7 mmol/L (3.3-5.1); Sodium 145 mmol/L (135-145)
[2024-04-09 08:06] LABS: Glucose, Whole Blood 93 mg/dL (60-115)
[2024-04-09] MEDS: 0.9 % Sodium Chloride Flush 3 ML SYRINGE IVFLUSH ×3 (08:12→20:52)
[2024-04-09] MEDS: Acetaminophen 325 MG TABLET 650 MG PO (08:13)
[2024-04-09] MEDS: Atorvastatin Calcium 40 MG TABLET PO (08:13)
[2024-04-09] MEDS: DULoxetine HCl 30 MG CAPSULE.DR PO (08:13)
[2024-04-09] MEDS: Ascorbic Acid 500 MG TABLET PO (08:14)
[2024-04-09] MEDS: DULoxetine HCl 60 MG CAPSULE.DR PO (08:15)
[2024-04-09] MEDS: Cholecalciferol (Vitamin D3) 25 MCG TABLET PO (08:15)
[2024-04-09] MEDS: Losartan Potassium 25 MG TABLET PO (08:15)
[2024-04-09] MEDS: Metoprolol Tartrate 50 MG TABLET PO ×2 (08:16→20:50)
[2024-04-09] MEDS: Cyanocobalamin (Vitamin B-12) 1,000 MCG TABLET 1000 MCG PO (08:16)
[2024-04-09] MEDS: Gabapentin 300 MG CAPSULE PO (08:16)
[2024-04-09] MEDS: Enoxaparin Sodium 40 MG/0.4 ML SYRINGE SUBCUT (08:21)
--- NOTE | 2024-04-09 10:25 | MHC.CM.PN ---
EMR reviewed. Patient is not medically cleared for dc. Plan remains STR.
[2024-04-09] MEDS: vancomycin HCL 750 MG in 0.9 % Sodium Chloride 250 ML 265 MG IV ×2 (10:48→22:00)
[2024-04-09 11:21] LABS: Glucose, Whole Blood 84 mg/dL (60-115)
--- NOTE | 2024-04-09 12:19 | HO.WOUND ---
Wound Consult: Follow up 73yr old?female admitted to [facility] [place] on 02/3024 - See progress notes and H&P for detailed history.? Wound consult follow up with Surgical PA's - they will manage treatment at this time. I will defer to their recommendations at this time. Please re-consult if recommendations, assessment or assistance are wanted in the future.
--- NOTE | 2024-04-09 15:14 | P.PNID_ITS ---
Subjective Subjective Date of Service: 04/08/24 Critical Care Time (minutes): 15 Comment: patient no specific organisms seen Objective Data Labs 04/09/24 06:06 04/09/24 06:06 Labs: Laboratory Results - last 24 hr 04/08/24 04/08/24 04/08/24 16:24 19:56 19:58 WBC RBC Hgb Hct MCV MCH MCHC RDW Plt Count MPV Immature Gran % (Auto) Neut % (Auto) Lymph % (Auto) [place] % (Auto) Eos % (Auto) Baso % (Auto) Lymph # (Auto) [place] # (Auto) Eos # (Auto) Baso # (Auto) Abs Immat Gran (auto) Absolute Neuts (auto) Absolute Nucleated RBC Nucleated RBC % (auto) Sodium Potassium Chloride Carbon Dioxide Anion Gap BUN Creatinine Estim Creat Clear Calc Estimated GFR POC Glucose 118 H 105 Fasting Glucose Calcium Random Vancomycin 18.4 04/09/24 04/09/24 04/09/24 06:06 08:01 11:17 WBC 7.3 RBC 3.41 L Hgb 9.2 L Hct 29.4 L MCV 86.2 MCH 27.0 MCHC 31.3 RDW 15.9 Plt Count 387 MPV 9.4 Immature Gran % (Auto) 0.5 H Neut % (Auto) 60.8 Lymph % (Auto) 25.4 [place] % (Auto) 9.3 Eos % (Auto) 3.0 Baso % (Auto) 1.0 Lymph # (Auto) 1.9 [place] # (Auto) 0.7 Eos # (Auto) 0.2 Baso # (Auto) 0.1 Abs Immat Gran (auto) 0.04 H Absolute Neuts (auto) 4.5 Absolute Nucleated RBC 0.000 Nucleated RBC % (auto) 0.0 Sodium 145 Potassium 3.7 Chloride 112 H Carbon Dioxide 27 Anion Gap 10 L BUN 14 Creatinine 0.76 Estim Creat Clear Calc 88.6 Estimated GFR > 60 POC Glucose 93 84 Fasting Glucose 95 Calcium 9.7 Random Vancomycin Physical Exam 2 Vital Signs: Vital Signs: Last Vital Signs Temp 98.6 F 04/09/24 15:08 Pulse 78 04/09/24 15:08 Resp 14 04/09/24 15:08 BP 149/85 H 04/09/24 15:08 Pulse Ox 96 04/09/24 15:08 O2 Del Method Room Air 04/09/24 15:08 O2 Flow Rate 6 04/07/24 15:50 FiO2 98 03/11/24 17:14 BMI result Body Mass Index 40.5 Const: General: cooperative HEENT: Head: Yes normal to inspection Face and sinus: Yes normal facial exam Mouth: Normal oral and palatal mucosa present Teeth and gingiva: d entition normal Eyes: General: appearance normal, both eyes and all related structures P upils: Equal, round and reactive pupils present Resp: Effort & Inspection: normal respiratory effort Cardio: Rate: regular rate Rhythm: regular rhythm GI: Palpation (GI): Soft to palpation and nontender : General: Yes no CVA tenderness Back/Spine/Pelvis: Back: no CVA tenderness Skin: General skin exam: no rashes or lesions noted Neuro: General: moves all extremities Cranial nerves: Yes Equal, round and reactive pupils present Extrem: Other: dressing on Psych: Appearance: grossly normal Assessment and Plan Assessment and plan (1) Peripheral neuropathy: Problem details: concern over foot infection no organisms seen Status: Acute (2) Trimalleolar fracture of right ankle: Status: Acute Assessment and Plan: probable 6 weeks IV antibiotics Would likely finish April 24. Doxycycline possible follow. (3) Diabetic ulcer of right foot: Problem details: Being treated by wound care Status: Acute Time Spent With Patient Time: Total time managing care of this patient today ____ minutes.
--- NOTE | 2024-04-09 15:35 | PM.EVENT ---
Event Note Date of Service: 04/09/24 Event Note: patient seen asleep in bed this morning -plan is to remain in hospital for another week to monitor for pressure sores and wound checks Time Spent With Patient Time: Total time managing care of this patient today ____ minutes.
--- NOTE | 2024-04-09 16:11 | PC.NURSE ---
Addendum entered by Mell Nice RN 04/09/24 16:17: PAUL Aquino notified Original Note: patient refused to have sequential stocking on her left leg,risks explained,enouraged leg excercises
[2024-04-09 16:18] LABS: Glucose, Whole Blood 94 mg/dL (60-115)
[2024-04-09 20:28] LABS: Glucose, Whole Blood 102 mg/dL (60-115)
[2024-04-09 20:33] LABS: Vancomycin Random 16.7 mcg/mL (15-20)
--- NOTE | 2024-04-09 20:43 | HE.PHANOTE ---
RE: VANCO DOSING Random came back as 16.7. Will continue with dose of 750 mg q12h, may need to increase dose tomorrow. Next random is scheduled for 04/10/24 @1999.
[2024-04-09] MEDS: Gabapentin 300 MG CAPSULE 600 MG PO (20:51)
[2024-04-09] MEDS: lamoTRIgine 100 MG TABLET 300 MG PO (20:51)
[2024-04-10] VITALS (7 sets, daily range): BP systolic 132–156; BP diastolic 77–95; PULSE 69–92; RESP 16–23; TEMP 36.1–36.6; O2SAT 94–98
--- NOTE | 2024-04-10 05:56 | P.EN_ITS ---
Event Note Date of Service: 04/10/24 Event Note: 5:49 AM - Contacted by nursing to notify patient made some SI comments to the [employer] OPERATOR HELPER. She got frustrated after not being cared for and changed fast enough. Patient became weepy and refusing care after that. Suicide precautions, sitter and psych consult placed. Time Spent With Patient Time: Total time managing care of this patient today ____ minutes.
--- NOTE | 2024-04-10 06:26 | PC.NURSE ---
Pt made Suicidal ideation to the [employer] APPLICATION ARCHITECT, pt was weepy and frustrated, upset because she wasn't changed right away when she called, pt was refsueing care and meds after that, pt was re approached, encouraged for care and redirected, Dr. Jacobson was notified, SI precaution was put in place, sitter at bedside, room cleared for safety, fpr Psych consult,Nadeen Tinsley was updated.
[2024-04-10 06:54] LABS: MANUAL DIFF FLAG NO
[2024-04-10 07:00] LABS: Basophils Absolute Auto 0.1 X10*3/uL (0.0-0.2); Basophils Percent Auto 0.9 % (0-2); Eosinophils Absolute Auto 0.3 X10*3/uL (0.0-0.4); Hematocrit 31.3 % (37.0-47.0); Hemoglobin 9.7 g/dl (12.0-16.0); Imm Gran Abs Auto 0.03 X10*3/uL (0.00-0.03); Imm Gran Pct Auto 0.6 % (0.0-0.4); Lymphocytes Absolute Auto 1.3 X10*3/uL (1.2-4.9); Lymphocytes Percent Auto 23.2 % (20-40); Mean Corpuscular Hemoglobin 26.6 pg (27.0-33.0); Mean Platelet Volume 9.3 fL (9.4-12.3); Monocytes Absolute Auto 0.6 X10*3/uL (0.1-1.2); Monocytes Percent Auto 10.8 % (2-11); Neutrophils Absolute Auto 3.2 x10*3/uL (2.0-8.3); Neutrophils Percent Auto 59.5 % (45-73); Platelet Count 355 X10*3/uL (160-400); Red Blood Count 3.64 X10*6/uL (4.20-5.50); Red Cell Distribution Width 15.9 % (11.0-16.0); White Blood Count 5.4 X10*3/uL (4.8-10.8)
[2024-04-10 07:21] LABS: Glucose, Whole Blood 77 mg/dL (60-115)
[2024-04-10 07:31] LABS: Anion Gap 13 (12-20); Blood Urea Nitrogen 11 mg/dL (9-16); Calcium 9.9 mg/dL (8.4-10.2); Carbon Dioxide 27 mmol/L (22-29); Chloride 109 mmol/L (96-108); Creatinine Clr Calc Pharmacy 88.6; Estimated Glomerular Filt Rate > 60; Glucose Fasting 89 mg/dL (60-99); Potassium 3.6 mmol/L (3.3-5.1); Sodium 145 mmol/L (135-145)
[2024-04-10] MEDS: Gabapentin 300 MG CAPSULE PO (09:51)
[2024-04-10] MEDS: Cyanocobalamin (Vitamin B-12) 1,000 MCG TABLET 1000 MCG PO (09:51)
[2024-04-10] MEDS: DULoxetine HCl 30 MG CAPSULE.DR PO (09:51)
[2024-04-10] MEDS: Ascorbic Acid 500 MG TABLET PO (09:52)
[2024-04-10] MEDS: Atorvastatin Calcium 40 MG TABLET PO (09:52)
[2024-04-10] MEDS: Cholecalciferol (Vitamin D3) 25 MCG TABLET PO (09:52)
[2024-04-10] MEDS: DULoxetine HCl 60 MG CAPSULE.DR PO (09:52)
[2024-04-10] MEDS: vancomycin HCL 750 MG in 0.9 % Sodium Chloride 250 ML 265 MG IV ×2 (09:52→21:51)
[2024-04-10] MEDS: Metoprolol Tartrate 50 MG TABLET PO ×2 (09:54→19:41)
[2024-04-10] MEDS: Losartan Potassium 25 MG TABLET PO (09:54)
[2024-04-10] MEDS: Enoxaparin Sodium 40 MG/0.4 ML SYRINGE SUBCUT (09:54)
[2024-04-10 11:06] LABS: Glucose, Whole Blood 101 mg/dL (60-115)
--- NOTE | 2024-04-10 11:23 | P.CNPS_ITS ---
History of Present Illness Date of Service: 04/10/24 Chief Complaint: R ankle fx Reason for Consult: Suicidal statements Sources of Information: patient interviewed and chart reviewed HPI Narrative: concern around suicidal statements. Had been placed on one-to-one observation, pending psychiatry evaluation. Noted patient has had a long hospitalization in the context of an ankle fracture, following a fall, external fixators in place, same also removed and now in a cast. Patient pleasant and engaged and cooperative with interview. Peer very open regarding past and recent history. Openly describes diagnosis of borderline personality disorder, which used to include lots of self-harm in years past. Good relationship with current psychiatrist Dr. Beaulieu. duloxetine lowered 4-6 weeks ago from 120 mg down to 90 mg. unclear why. Patient has noticed feeling more tearful and depressed since this dose change. Did endorse feeling frustrated around current hospital stay, lack of mobility, feeling humiliated is around not being able to attend to her own care needs such as toileting and bathing. Reported had been feeling more sad the last couple of days and did make a statement about jumping out the window, and was very quick to point out that this is something she is not capable of doing physically and therefore she was never serious about this and it was more a comment out of frustration verses actual ideation or intent. Also describe some frustration when accessing the patient portal, reading documentation and not having the same experience to what has been documented. At outside of this, does report intermittent visual hallucinations on and off over the last number of years and the last time was before this current hospitalization of maybe seeing her mother or her grandmother who both passed. No paranoia. Overall felt positive about duloxetine being increased back to 120 mg- Can make this change starting tomorrow. It is clear that she is not suicidal. Will discontinue one-to-one observation. Medications can be continued with already established community providers. Will sign off case. Please re-consult if needed. Past Psychiatric History: inpatient admission September 2023, following Klonopin overdose. Please see record for discharge summary. Overall was a short stay from 09/11/23 and discharged 09/16/2023. As per record: The patient's 1st psychiatric contact was more than 20 years ago when she was diagnosed of borderline personality disorder and she followed DVT treatment. She had been admitted once when she was 51 years old since she tried to commit suicide. She denies substance abuse . [facility] Medical History Elevated cholesterol Anxiety SELMA treated with BiPAP Diabetic ulcer of right foot Atrial fibrillation Borderline personality disorder Major depressive disorder Diabetes mellitus Chronic anticoagulation Surgical History Hx of esophagogastroduodenoscopy Hx of colonoscopy History of carpal tunnel release of both wrists Hx of bilateral cataract extraction Hx of bilateral breast reduction surgery Hx of hysterectomy Family History: Apparently her son suffers from depression he tried and to overdose himself a few years ago. 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 [facility] [place] [facility] Trauma History: Denies Diagnostics Vital Signs (24Hr): Vital Signs - 24 hr 04/09/24 15:08 04/09/24 20:00 04/09/24 20:50 Temperature 98.6 F 98.4 F Pulse Rate 78 91 91 Respiratory Rate 14 18 Blood Pressure 149/85 H 150/70 H 150/70 H Pulse Oximetry 96 96 Oxygen Delivery Method Room Air 04/09/24 23:05 04/10/24 04:00 04/10/24 06:57 Temperature 97.8 F 97.2 F Pulse Rate 81 69 Respiratory Rate 26 H 16 18 Blood Pressure 153/88 H 146/77 H Pulse Oximetry 95 94 Oxygen Delivery Method Room Air CPAP 04/10/24 09:54 04/10/24 09:54 Temperature Pulse Rate 92 Respiratory Rate Blood Pressure 155/78 H 155/78 H Pulse Oximetry Oxygen Delivery Method BMI result Body Mass Index 40.5 Labs 04/10/24 06:37 04/10/24 06:37 Labs: Laboratory Results - last 48 hr 04/08/24 04/08/24 04/08/24 16:24 19:56 19:58 WBC RBC Hgb Hct MCV MCH MCHC RDW Plt Count MPV Immature Gran % (Auto) Neut % (Auto) Lymph % (Auto) [place] % (Auto) Eos % (Auto) Baso % (Auto) Lymph # (Auto) [place] # (Auto) Eos # (Auto) Baso # (Auto) Abs Immat Gran (auto) Absolute Neuts (auto) Absolute Nucleated RBC Nucleated RBC % (auto) Sodium Potassium Chloride Carbon Dioxide Anion Gap BUN Creatinine Estim Creat Clear Calc Estimated GFR POC Glucose 118 H 105 Fasting Glucose Calcium Random Vancomycin 18.4 04/09/24 04/09/24 04/09/24 06:06 08:01 11:17 WBC 7.3 RBC 3.41 L Hgb 9.2 L Hct 29.4 L MCV 86.2 MCH 27.0 MCHC 31.3 RDW 15.9 Plt Count 387 MPV 9.4 Immature Gran % (Auto) 0.5 H Neut % (Auto) 60.8 Lymph % (Auto) 25.4 [place] % (Auto) 9.3 Eos % (Auto) 3.0 Baso % (Auto) 1.0 Lymph # (Auto) 1.9 [place] # (Auto) 0.7 Eos # (Auto) 0.2 Baso # (Auto) 0.1 Abs Immat Gran (auto) 0.04 H Absolute Neuts (auto) 4.5 Absolute Nucleated RBC 0.000 Nucleated RBC % (auto) 0.0 Sodium 145 Potassium 3.7 Chloride 112 H Carbon Dioxide 27 Anion Gap 10 L BUN 14 Creatinine 0.76 Estim Creat Clear Calc 88.6 Estimated GFR > 60 POC Glucose 93 84 Fasting Glucose 95 Calcium 9.7 Random Vancomycin 04/09/24 04/09/24 04/09/24 16:11 19:59 20:10 WBC RBC Hgb Hct MCV MCH MCHC RDW Plt Count MPV Immature Gran % (Auto) Neut % (Auto) Lymph % (Auto) [place] % (Auto) Eos % (Auto) Baso % (Auto) Lymph # (Auto) [place] # (Auto) Eos # (Auto) Baso # (Auto) Abs Immat Gran (auto) Absolute Neuts (auto) Absolute Nucleated RBC Nucleated RBC % (auto) Sodium Potassium Chloride Carbon Dioxide Anion Gap BUN Creatinine Estim Creat Clear Calc Estimated GFR POC Glucose 94 102 Fasting Glucose Calcium Random Vancomycin 16.7 04/10/24 04/10/24 04/10/24 06:37 07:16 11:02 WBC 5.4 RBC 3.64 L Hgb 9.7 L Hct 31.3 L MCV 86.0 MCH 26.6 L MCHC 31.0 RDW 15.9 Plt Count 355 MPV 9.3 L Immature Gran % (Auto) 0.6 H Neut % (Auto) 59.5 Lymph % (Auto) 23.2 [place] % (Auto) 10.8 Eos % (Auto) 5.0 H Baso % (Auto) 0.9 Lymph # (Auto) 1.3 [place] # (Auto) 0.6 Eos # (Auto) 0.3 Baso # (Auto) 0.1 Abs Immat Gran (auto) 0.03 Absolute Neuts (auto) 3.2 Absolute Nucleated RBC 0.000 Nucleated RBC % (auto) 0.0 Sodium 145 Potassium 3.6 Chloride 109 H Carbon Dioxide 27 Anion Gap 13 BUN 11 Creatinine 0.76 Estim Creat Clear Calc 88.6 Estimated GFR > 60 POC Glucose 77 101 Fasting Glucose 89 Calcium 9.9 Random Vancomycin Imaging Radiology Impressions: ITS Impressions Guidance Fluoroscopy 03/10/24 15:54 IMPRESSION: Intraoperative fluoroscopic guidance is provided during ORIF of a trimalleolar fracture of the right ankle. Please see the patient's Operative Report for full procedural details. Guidance Fluoroscopy 03/11/24 16:45 IMPRESSION: Intraoperative fluoroscopic guidance is provided during ORIF of a trimalleolar fracture of the right ankle. Please see the patient's Operative Report for full procedural details. Arterial/Peripheral Duplex 03/18/24 17:18 IMPRESSION: 1. There is no evidence of any hemodynamically significant lower extremity arterial disease by waveform or duplex Doppler criteria at rest. 2. Left 4.7 cm Ying's cyst. Guidance Fluoroscopy 03/24/24 14:45 IMPRESSION: Intraoperative fluoroscopic guidance is provided during ORIF of a trimalleolar fracture of the right ankle. Please see the patient's operative report for full procedural details. Guidance Fluoroscopy 03/30/24 15:46 IMPRESSION: 2 images provided with overlying cast material again demonstrate previously noted trimalleolar fracture of the ankle. Please refer to operative report for more detailed evaluation. Guidance Fluoroscopy 04/07/24 15:20 IMPRESSION: Right ankle closed reduction Mental Status Exam Mental Status Exam Narrative: Pleasant. Engaged. Hospital bed and clothing. Fair self-care. Organized and articulate. Does appear slightly depressed. No SI, HI agitation or psychosis. Insight and judgment good Medications Medications Current Medications Acetaminophen (Acetaminophen 325 Mg Tablet) 650 mg PO Q6H PRN PRN Reason: Pain, Mild (Pain Scale 1-3) Last Admin: 04/09/24 08:13 Dose: 650 mg Ascorbic Acid (Ascorbic Acid 500 Mg Tablet) 500 mg PO DAILY RICKY Last Admin: 04/10/24 09:52 Dose: 500 mg Atorvastatin Calcium (Atorvastatin Calcium 40 Mg Tablet) 40 mg PO DAILY [facility] Last Admin: 04/10/24 09:52 Dose: 40 mg Cyanocobalamin (Cyanocobalamin (Vitamin B-12) 1,000 Mcg Tablet) 1,000 mcg PO DAILY [facility] Last Admin: 04/10/24 09:51 Dose: 1,000 mcg Docusate Sodium (Docusate Sodium 100 Mg Capsule) 200 mg PO DAILY [facility] Last Admin: 04/10/24 10:16 Dose: Not Given Duloxetine HCl (Duloxetine Hcl 30 Mg Capsule.) 30 mg PO DAILY [facility] Last Admin: 04/10/24 09:51 Dose: 30 mg Duloxetine HCl (Duloxetine Hcl 60 Mg Capsule.) 60 mg PO DAILY [facility] Last Admin: 04/10/24 09:52 Dose: 60 mg Enoxaparin Sodium (Enoxaparin Sodium 40 Mg/0.4 Ml Syringe) 40 mg SUBCUT Q24H [facility] Last Admin: 04/10/24 09:54 Dose: 40 mg Gabapentin (Gabapentin 300 Mg Capsule) 300 mg PO DAILY [facility] Last Admin: 04/10/24 09:51 Dose: 300 mg Gabapentin (Gabapentin 300 Mg Capsule) 600 mg PO BEDTIME [facility] Last Admin: 04/09/24 20:51 Dose: 600 mg Glucose (Glucose Gel 15 Gm Gel..Gram.) 15 gm PO Q15M PRN; Protocol PRN Reason: per Hypoglycemia Standing Ord. Haloperidol Lactate (Haloperidol Lactate 5 Mg/Ml Vial) 0.5 mg IVPUSH ONCE PRN PRN Reason: Nausea and Vomiting Dextrose (D10) 250 mls @ 750 mls/hr IV Q15M PRN; Protocol PRN Reason: per Hypoglycemia Standing Ord. Last Infusion: 03/30/24 09:14 Dose: Infused Dextrose (D5w) 250 mls @ 0 mls/hr IV .Q0M PRN PRN Reason: Per Protocol Last Infusion: 04/07/24 16:56 Dose: Infused Vancomycin HCl 750 mg/ Sodium (Chloride) 265 mls @ 265 mls/hr IV Q12H [facility] Last Infusion: 04/10/24 10:52 Dose: Infused Insulin Human Lispro (Insulin Lispro 100 Unit/Ml 3 Ml Vial) 0 unit SUBCUT QIDACHS [facility]; Protocol Last Admin: 04/10/24 11:13 Dose: Not Given Lamotrigine (Lamotrigine 100 Mg Tablet) 300 mg PO BEDTIME [facility] Last Admin: 04/09/24 20:51 Dose: 300 mg Losartan Potassium (Losartan Potassium 25 Mg Tablet) 25 mg PO DAILY [facility]; Protocol Last Admin: 04/10/24 09:54 Dose: 25 mg Metoprolol Tartrate (Metoprolol Tartrate 50 Mg Tablet) 50 mg PO BID [facility]; Protocol Last Admin: 04/10/24 09:54 Dose: 50 mg Omeprazole (Omeprazole 40 Mg Capsule.Dr) 40 mg PO DAILY@0630 [facility] Last Admin: 04/10/24 06:24 Dose: Not Given Ondansetron HCl (Ondansetron Hcl 4 Mg/2 Ml Vial) 4 mg IVPUSH Q8H PRN PRN Reason: Nausea Pharmacy Consult (Consult Rx Vancomycin Dosing) 1 each MISCELLANE DAILY PRN PRN Reason: Consult order Sodium Chloride (0.9 % Sodium Chloride Flush 3 Ml Syringe) 3 ml IVFLUSH QSHIFT [facility] Last Admin: 04/10/24 09:07 Dose: Not Given Sodium Hypochlorite (Sodium Hypochlorite 0.25% 473 Ml Solution) 1 appl TOPICAL BID [facility] Last Admin: 04/10/24 10:16 Dose: Not Given Vitamin D (Cholecalciferol (Vitamin D3) 25 Mcg Tablet) 25 mcg PO DAILY [facility] Last Admin: 04/10/24 09:52 Dose: 25 mcg Allergies Allergies Allergy/AdvReac Type Severity Reaction Status Date / Time [email or web address] [From Myrbetriq] Allergy Hallucinati Verified 03/09/24 13:21 ons Assessment & Plan Assessment & Plan (1) Major depressive disorder: Status: Acute Code(s): F32.9 - Major depressive disorder, single episode, unspecified Assessment and Plan: Increase duloxetine being increased back to 120 mg- Can make this change starting 04/11/24. It is clear that she is not suicidal. Will discontinue one-to-one observation. Medications can be continued with already established community providers. Will sign off case. Please re-consult if needed. Total time managing care of this patient today ____ minutes.
[2024-04-10] MEDS: Acetaminophen 325 MG TABLET 650 MG PO (13:00)
--- NOTE | 2024-04-10 13:17 | PM.PNORT ---
Subjective Subjective Date of Service: 04/10/24 Principal diagnosis: Right ankle fracture/dislocation and peripheral neuropathy Interval history: PO11 s/p removal of external fixator and placement into long leg cast Patient is resting in bed comfortably overnight mentioned SI-hospitalist ordered sitter She is better this morning Pain is managed No additional complaints Physical Exam Vital Signs: Vital Signs: Last Vital Signs Temp 97.2 F 04/10/24 06:57 Pulse 92 04/10/24 09:54 Resp 18 04/10/24 06:57 BP 155/78 H 04/10/24 09:54 Pulse Ox 94 04/10/24 06:57 O2 Del Method CPAP 04/10/24 06:57 O2 Flow Rate 6 04/07/24 15:50 FiO2 98 03/11/24 17:14 BMI result Body Mass Index 40.5 Const: General: cooperative, healthy appearing and no acute distress Resp: Effort & Inspection: normal respiratory effort and able to speak in complete sentences Cardio: Rate: regular rate Peripheral pulses: Peripheral pulses 2+ throughout GI: Palpation (GI): Soft to palpation Skin: Lesions: no lesions Rashes: no rashes Extrem: Other: RLE: cast is c/d/i. Able to move digits. Procedures Date of Service Date of Service: 04/10/24 Progress Note: A&P Assessment and plan (1) Peripheral neuropathy: Status: Acute (2) Diabetic ulcer of right foot: Status: Acute (3) Atrial fibrillation: Status: Acute (4) Diabetes mellitus: Status: Acute (5) Trimalleolar fracture of right ankle: Status: Acute Assessment and Plan: RLE: Keep cast c/d/i Elevate on three pillows above heart level Continue dressing changes with wound care nurse Foam dressing applied to heel to reduce chances of pressure sore NWB RLE Time Spent With Patient Time: Total time managing care of this patient today ____ minutes. Quality Stroke Does the patient have a stroke diagnosis?: No VTE Prior VTE?: No VTE Risk Level:: Medical - moderate - high VTE Device Contraindication: N/A - Device Ordered VTE Drug Contraindication: N/A - Med Ordered
--- NOTE | 2024-04-10 14:12 | PC.NURSE ---
Addendum entered by Dorota Perez RN 04/10/24 15:33: Per Psych Alexis Epperson, 1:1 observation can be discontinued. Original Note: Pt weepy and states she wants to come off SI precautions with 1:1 sitter. Psych consult placed on pervious shift and care team consult placed earlier this shift. Awaiting evaluation from both. Education provided to pt regarding safety concerns with SI statements reported on previous shift. 1:1 sitter at bedside, all safety measures in place. Per Psychiatrist Alexis Epperson via tiger text communication, pt will be seen this shift.
[2024-04-10] MEDS: 0.9 % Sodium Chloride Flush 3 ML SYRINGE IVFLUSH ×2 (15:42→19:42)
[2024-04-10 17:07] LABS: Glucose, Whole Blood 100 mg/dL (60-115)
[2024-04-10] MEDS: Gabapentin 300 MG CAPSULE 600 MG PO (19:41)
[2024-04-10] MEDS: lamoTRIgine 100 MG TABLET 300 MG PO (19:41)
[2024-04-10 19:50] LABS: Glucose, Whole Blood 110 mg/dL (60-115)
[2024-04-10 20:17] LABS: Vancomycin Random 15.7 mcg/mL (15-20)
--- NOTE | 2024-04-10 22:03 | PC.NURSE ---
left foot sole black scab area was peeled off pt, it looks ugly , area bled, cleansed with NSS, Xeroform covered with foam applied.
[2024-04-11] VITALS (7 sets, daily range): BP systolic 135–152; BP diastolic 73–92; PULSE 81–90; RESP 16–18; TEMP 36.3–36.7; O2SAT 95–96
[2024-04-11] MEDS: Omeprazole 40 MG CAPSULE.DR PO (05:55)
[2024-04-11 06:43] LABS: MANUAL DIFF FLAG NO
[2024-04-11 07:12] LABS: Anion Gap 13 (12-20); Blood Urea Nitrogen 11 mg/dL (9-16); Calcium 9.6 mg/dL (8.4-10.2); Carbon Dioxide 25 mmol/L (22-29); Chloride 110 mmol/L (96-108); Estimated Glomerular Filt Rate > 60; Glucose Fasting 91 mg/dL (60-99); Potassium 3.4 mmol/L (3.3-5.1); Sodium 145 mmol/L (135-145)
[2024-04-11 07:16] LABS: Basophils Percent Auto 0.6 % (0-2); Eosinophils Absolute Auto 0.3 X10*3/uL (0.0-0.4); Eosinophils Percent Auto 5.3 % (0-4); Hematocrit 30.6 % (37.0-47.0); Hemoglobin 9.6 g/dl (12.0-16.0); Imm Gran Abs Auto 0.03 X10*3/uL (0.00-0.03); Imm Gran Pct Auto 0.6 % (0.0-0.4); Lymphocytes Absolute Auto 1.4 X10*3/uL (1.2-4.9); Lymphocytes Percent Auto 25.6 % (20-40); Mean Corpuscular HGB Conc 31.4 g/dl (31.0-35.0); Mean Corpuscular Hemoglobin 26.5 pg (27.0-33.0); Mean Corpuscular Volume 84.5 fL (80.0-98.0); Mean Platelet Volume 9.5 fL (9.4-12.3); Monocytes Absolute Auto 0.6 X10*3/uL (0.1-1.2); Monocytes Percent Auto 11.8 % (2-11); Neutrophils Percent Auto 56.1 % (45-73); Platelet Count 329 X10*3/uL (160-400); Red Blood Count 3.62 X10*6/uL (4.20-5.50); Red Cell Distribution Width 15.7 % (11.0-16.0); White Blood Count 5.3 X10*3/uL (4.8-10.8)
[2024-04-11 07:16] LABS: Glucose, Whole Blood 93 mg/dL (60-115)
[2024-04-11] MEDS: Atorvastatin Calcium 40 MG TABLET PO (09:07)
[2024-04-11] MEDS: Losartan Potassium 25 MG TABLET PO (09:07)
[2024-04-11] MEDS: Metoprolol Tartrate 50 MG TABLET PO ×2 (09:07→20:24)
[2024-04-11] MEDS: DULoxetine HCl 60 MG CAPSULE.DR 120 MG PO (09:07)
[2024-04-11] MEDS: Cholecalciferol (Vitamin D3) 25 MCG TABLET PO (09:07)
[2024-04-11] MEDS: Ascorbic Acid 500 MG TABLET PO (09:08)
[2024-04-11] MEDS: Gabapentin 300 MG CAPSULE PO ×2 (09:08→20:26)
[2024-04-11] MEDS: Enoxaparin Sodium 40 MG/0.4 ML SYRINGE SUBCUT (09:08)
[2024-04-11] MEDS: Cyanocobalamin (Vitamin B-12) 1,000 MCG TABLET 1000 MCG PO (09:08)
[2024-04-11] MEDS: 0.9 % Sodium Chloride Flush 3 ML SYRINGE IVFLUSH ×3 (09:08→20:26)
[2024-04-11] MEDS: vancomycin HCL 750 MG in 0.9 % Sodium Chloride 250 ML 265 MG IV ×2 (10:06→21:47)
--- NOTE | 2024-04-11 10:26 | PC.NURSE ---
Pt had foam covering over left great toe where toe nail has been known to be missing. Foam removed, wound bed has small amount sero/sang drainage, wound bed pink. Site cleansed with NaCl, pat dried, Durafiber Ag cut to fit wound bed, gauze applied, followed by gauze wrap. Per slot shift manager RN report, pt peeled off scab on left plantar, foam dressing removed moderate amount of sero/sang drainage on old dressing. Site cleansed with NaCl, pat dried, Durafiber Ag applied to wound bed (wound bed appears pink surrounding skin macerated), followed by gauze and gauze wrap. Wound care nurse following pt for right leg surgical wounds but re consulted for wounds mentioned above.
[2024-04-11 10:56] LABS: Glucose, Whole Blood 69 mg/dL (60-115)
[2024-04-11 11:30] LABS: Glucose, Whole Blood 112 mg/dL (60-115)
--- NOTE | 2024-04-11 11:56 | PM.EVENT ---
Event Note Date of Service: 04/11/24 Event Note: Spoke with RN Loly Natarajan -patient is doing well, no concerns -psych increased her meds Plan to continue cast and perform wound check tomorrow ? DC to rehab this week depending on wound status. Time Spent With Patient Time: Total time managing care of this patient today ____ minutes.
[2024-04-11 16:01] LABS: Glucose, Whole Blood 82 mg/dL (60-115)
[2024-04-11 20:09] LABS: Glucose, Whole Blood 126 mg/dL (60-115)
[2024-04-11] MEDS: lamoTRIgine 100 MG TABLET 300 MG PO (20:26)
[2024-04-11] MEDS: Gabapentin 300 MG CAPSULE 600 MG PO (20:30)
[2024-04-11 20:33] LABS: Vancomycin Random 15.1 mcg/mL (15-20)
[2024-04-12] VITALS (9 sets, daily range): BP systolic 132–163; BP diastolic 81–91; PULSE 61–99; RESP 13–26; TEMP 36–36.6; O2SAT 95–97
[2024-04-12] MEDS: Omeprazole 40 MG CAPSULE.DR PO (05:33)
[2024-04-12 06:25] LABS: MANUAL DIFF FLAG NO
[2024-04-12 06:56] LABS: Basophils Absolute Auto 0.1 X10*3/uL (0.0-0.2); Eosinophils Absolute Auto 0.3 X10*3/uL (0.0-0.4); Eosinophils Percent Auto 5.7 % (0-4); Hematocrit 30.3 % (37.0-47.0); Hemoglobin 9.5 g/dl (12.0-16.0); Imm Gran Abs Auto 0.02 X10*3/uL (0.00-0.03); Imm Gran Pct Auto 0.4 % (0.0-0.4); Lymphocytes Absolute Auto 1.4 X10*3/uL (1.2-4.9); Lymphocytes Percent Auto 27.7 % (20-40); Mean Corpuscular HGB Conc 31.4 g/dl (31.0-35.0); Mean Corpuscular Hemoglobin 26.8 pg (27.0-33.0); Mean Corpuscular Volume 85.6 fL (80.0-98.0); Mean Platelet Volume 9.6 fL (9.4-12.3); Monocytes Absolute Auto 0.5 X10*3/uL (0.1-1.2); Monocytes Percent Auto 10.1 % (2-11); Neutrophils Absolute Auto 2.8 x10*3/uL (2.0-8.3); Neutrophils Percent Auto 55.1 % (45-73); Platelet Count 299 X10*3/uL (160-400); Red Blood Count 3.54 X10*6/uL (4.20-5.50); Red Cell Distribution Width 15.7 % (11.0-16.0); White Blood Count 5.1 X10*3/uL (4.8-10.8)
[2024-04-12 07:08] LABS: Anion Gap 13 (12-20); Blood Urea Nitrogen 9 mg/dL (9-16); Calcium 9.4 mg/dL (8.4-10.2); Carbon Dioxide 27 mmol/L (22-29); Chloride 107 mmol/L (96-108); Creatinine Clr Calc Pharmacy 86.3; Estimated Glomerular Filt Rate > 60; Glucose Fasting 86 mg/dL (60-99); Potassium 3.4 mmol/L (3.3-5.1); Sodium 144 mmol/L (135-145)
[2024-04-12 07:09] LABS: Glucose, Whole Blood 94 mg/dL (60-115)
[2024-04-12] MEDS: Enoxaparin Sodium 40 MG/0.4 ML SYRINGE SUBCUT (09:09)
[2024-04-12] MEDS: Cholecalciferol (Vitamin D3) 25 MCG TABLET PO (09:09)
[2024-04-12] MEDS: DULoxetine HCl 60 MG CAPSULE.DR 120 MG PO (09:09)
[2024-04-12] MEDS: vancomycin HCL 750 MG in 0.9 % Sodium Chloride 250 ML 265 MG IV (09:09)
[2024-04-12] MEDS: Cyanocobalamin (Vitamin B-12) 1,000 MCG TABLET 1000 MCG PO (09:09)
[2024-04-12] MEDS: Losartan Potassium 25 MG TABLET PO (09:10)
[2024-04-12] MEDS: Ascorbic Acid 500 MG TABLET PO (09:10)
[2024-04-12] MEDS: Atorvastatin Calcium 40 MG TABLET PO (09:10)
[2024-04-12] MEDS: Metoprolol Tartrate 50 MG TABLET PO ×2 (09:10→21:59)
[2024-04-12] MEDS: Gabapentin 300 MG CAPSULE PO (09:11)
[2024-04-12] MEDS: 0.9 % Sodium Chloride Flush 3 ML SYRINGE IVFLUSH ×2 (09:12→16:42)
--- NOTE | 2024-04-12 10:43 | PC.NURSE ---
Addendum entered by Dorota Perez RN 04/12/24 17:25: per Fay Reid 5mg PO Amlodipine ordered, pending effectiveness. Addendum entered by Dorota Perez RN 04/12/24 12:01: Margi Kin made aware of pts high BP readings, no new orders at this time. BP recheck 160/80. Pt c/o headache, PRN Tylenol given per orders pending effectiveness. Original Note: Pt continues to be hypertensive, last BP 150/90, pt received scheduled BP meds this am. Marie Senior made aware, per PA reach out to medicine . MD Deleon listed as QB, MD texted with concerns awaiting reply. Pt asked this RN when Dr. Paulino will come see her today, PAUL Senior stated this morning that Lora would be around to see her today, no time specified. Per PA no plans for cast change today, possibly tomorrow. Per PA Pt can work with PT and get OOB NWB right ankle.
[2024-04-12 11:04] LABS: Glucose, Whole Blood 107 mg/dL (60-115)
[2024-04-12] MEDS: Acetaminophen 325 MG TABLET 650 MG PO (11:46)
--- NOTE | 2024-04-12 15:21 | HO.PICC ---
PICC Line Insertion NPICC Diagnosis: Diabetic foot ulcer Indication: care home ABT Pertinent Labs: reviewed Technique: Following informed consent including risks, benefits and alternatives and using sterile technique including cap and mask, sterile gown, glove and drape, the right arm was prepped and draped in the usual sterile fashion of full barrier technique with CHG. Following completion of [place] Protocol the skin and soft tissues were anesthetized with 1% Lidocaine plain. Using ultrasound guidance, right brachial vein access was obtained. Over an 0.018 wire through peel-away sheath, a 5fr double lumen PICC line was positioned. Catheter length is 40cm internal length, 0cm external length, for a total trimmed length of 40cm. The procedure was performed in [facility]. Tip verification was performed by Gerald Andrade with Sherlock 3CG. Tip located in SVC. Ultrasound was used to document vein patency and for needle entry. A formal ultrasound picture and cardiac rhythm strip was recorded. Vascular Hardness Inspector has released the line for use and it is currently dressed with a StatLock, Tegaderm, and CHG disc. Verification has been performed for blood return and line patency. Arm Circumference: 32cm Equipment: BATS PowerMar[employer]ayerC SOLO with Sherlock 3CG Catheter Type: 5FR double lumen catheter Lot #: [id number]
[2024-04-12 16:17] LABS: Glucose, Whole Blood 109 mg/dL (60-115)
[2024-04-12] MEDS: amLODIPine Besylate 5 MG TABLET PO (17:23)
[2024-04-12 20:07] LABS: Glucose, Whole Blood 115 mg/dL (60-115)
[2024-04-12 20:39] LABS: Vancomycin Random 14.8 mcg/mL (15-20)
--- NOTE | 2024-04-12 20:47 | HE.PHANOTE ---
SLAVA Changing dose to 500mg Q8H per subtherapeutic trough, predicted AUC 434. predicted trough 14.8. Next trough to be drawn 04/13 @1999.
[2024-04-12] MEDS: Gabapentin 300 MG CAPSULE 600 MG PO (21:56)
[2024-04-12] MEDS: lamoTRIgine 100 MG TABLET 300 MG PO (21:59)
[2024-04-12] MEDS: vancomycin HCL 500 MG in 0.9 % Sodium Chloride 100 ML 110 MG IV (22:09)
[2024-04-13] VITALS (9 sets, daily range): BP systolic 128–165; BP diastolic 72–99; PULSE 78–97; RESP 13–26; TEMP 36–36.6; O2SAT 92–96
[2024-04-13] MEDS: Omeprazole 40 MG CAPSULE.DR PO (05:44)
[2024-04-13 05:48] LABS: MANUAL DIFF FLAG NO
[2024-04-13] MEDS: vancomycin HCL 500 MG in 0.9 % Sodium Chloride 100 ML 110 MG IV ×2 (05:57→13:56)
[2024-04-13 06:06] LABS: Anion Gap 12 (12-20); Blood Urea Nitrogen 12 mg/dL (9-16); Calcium 9.8 mg/dL (8.4-10.2); Carbon Dioxide 27 mmol/L (22-29); Chloride 109 mmol/L (96-108); Creatinine Clr Calc Pharmacy 88.6; Estimated Glomerular Filt Rate > 60; Glucose Fasting 106 mg/dL (60-99); Potassium 3.4 mmol/L (3.3-5.1); Sodium 145 mmol/L (135-145)
[2024-04-13 06:19] LABS: Basophils Percent Auto 0.7 % (0-2); Eosinophils Absolute Auto 0.3 X10*3/uL (0.0-0.4); Eosinophils Percent Auto 4.4 % (0-4); Hematocrit 30.6 % (37.0-47.0); Hemoglobin 9.7 g/dl (12.0-16.0); Imm Gran Abs Auto 0.05 X10*3/uL (0.00-0.03); Imm Gran Pct Auto 0.9 % (0.0-0.4); Lymphocytes Absolute Auto 1.3 X10*3/uL (1.2-4.9); Lymphocytes Percent Auto 21.9 % (20-40); Mean Corpuscular HGB Conc 31.7 g/dl (31.0-35.0); Mean Corpuscular Hemoglobin 26.9 pg (27.0-33.0); Mean Platelet Volume 9.8 fL (9.4-12.3); Monocytes Absolute Auto 0.6 X10*3/uL (0.1-1.2); Monocytes Percent Auto 10.2 % (2-11); Neutrophils Absolute Auto 3.5 x10*3/uL (2.0-8.3); Neutrophils Percent Auto 61.9 % (45-73); Platelet Count 284 X10*3/uL (160-400); Red Cell Distribution Width 15.8 % (11.0-16.0); White Blood Count 5.7 X10*3/uL (4.8-10.8)
[2024-04-13 07:15] LABS: Glucose, Whole Blood 96 mg/dL (60-115)
[2024-04-13] MEDS: Cholecalciferol (Vitamin D3) 25 MCG TABLET PO (09:09)
[2024-04-13] MEDS: Losartan Potassium 25 MG TABLET PO (09:09)
[2024-04-13] MEDS: Metoprolol Tartrate 50 MG TABLET PO ×2 (09:09→21:16)
[2024-04-13] MEDS: Gabapentin 300 MG CAPSULE PO (09:09)
[2024-04-13] MEDS: DULoxetine HCl 60 MG CAPSULE.DR 120 MG PO (09:09)
[2024-04-13] MEDS: Atorvastatin Calcium 40 MG TABLET PO (09:09)
[2024-04-13] MEDS: Ascorbic Acid 500 MG TABLET PO (09:09)
[2024-04-13] MEDS: Cyanocobalamin (Vitamin B-12) 1,000 MCG TABLET 1000 MCG PO (09:09)
[2024-04-13] MEDS: Enoxaparin Sodium 40 MG/0.4 ML SYRINGE SUBCUT (09:10)
[2024-04-13] MEDS: amLODIPine Besylate 5 MG TABLET PO (09:10)
[2024-04-13] MEDS: 0.9 % Sodium Chloride Flush 3 ML SYRINGE IVFLUSH ×3 (09:12→23:39)
[2024-04-13 11:17] LABS: Glucose, Whole Blood 120 mg/dL (60-115)
--- NOTE | 2024-04-13 14:38 | HO.WOUND ---
Addendum entered by Shanta Brooks RN 04/14/24 06:52: Topical Recommendations: 1. Turn and Reposition every 2 hours and as needed for patient comfort.? Use pillows or wedges to support off loading positions. 2. Off Load all bony prominences with use of pillows and heel boots if needed.? Apply Preventative foams where needed. ? 3. Monitor for incontinence and moisture control, use barrier creams when needed for prevention and treatment. 4. Provide adequate and supplemental nutrition.? 5. Continue low air loss mattress. 6. When applicable maintain blood glucose levels per Providers order. 7. Left Great Toe and Plantar Foot - Cleanse with NS moist gauze, dry well. Apply skin prep allow to dry. Cover with cut to size hydrocolloid, may cover with dry gauze wrap per patient request. Change every 2-3 days. 8. Right Ankle - Cast management by Orthopedic Team. Re-consult wound care Nurse for wound deterioration or wound changes. Original Note: Wound Consult: Follow up 73yr old?female admitted to [facility] on 02/3024 - See progress notes and H&P for detailed history.? New wound consult placed for Left Great Toe and Left Plantar. Per direct care team and patient - patient reports tearing and picking at scab and blister - causing new wounds. Great toe appears to remains partially scabbed and areas of red pink moist tissue - no s/s of infection to the site - recommend hydrocolloid application to discourage picking by patient. This will allow for moist wound healing - patient is agreeable. The plantar area has an irregularly shaped partial thickness wound bed. There are no s/s of infection to this site and will benefit from moist wound healing - Hyrdocolloid applied. At patient request covered with dry gauze so she was less inclined to pick at the dressing and ultimately the wounds. Additionally received a TT from Surgical PAUL Celis to assess calcaneus region while they were applying new casting. Upon return to bedside - Dr. Paulino and Marie Celis, PAUL were in the process of completing the dressing prior to casting - did not need my assessment. No assessment or interventions placed. See Ortho note for details regarding dressing and casting.
[2024-04-13 16:29] LABS: Glucose, Whole Blood 99 mg/dL (60-115)
[2024-04-13] MEDS: Acetaminophen 325 MG TABLET 650 MG PO (18:34)
[2024-04-13 20:01] LABS: Glucose, Whole Blood 118 mg/dL (60-115)
[2024-04-13 20:24] LABS: Vancomycin Random 14.3 mcg/mL (15-20)
[2024-04-13] MEDS: lamoTRIgine 100 MG TABLET 300 MG PO (21:14)
[2024-04-13] MEDS: Gabapentin 300 MG CAPSULE 600 MG PO (21:14)
[2024-04-13] MEDS: vancomycin HCL 1,000 MG in 0.9 % Sodium Chloride 250 ML 270 MG IV (21:15)
[2024-04-14 04:00] VITALS: BP 138/84; PULSE 84; RESP 16; TEMP 36.3; O2SAT 96
[2024-04-14] MEDS: Omeprazole 40 MG CAPSULE.DR PO (05:56)
[2024-04-14 07:21] VITALS: BP 145/81; PULSE 76; RESP 17; TEMP 36.2; O2SAT 97
[2024-04-14 07:33] LABS: Glucose, Whole Blood 88 mg/dL (60-115)
--- NOTE | 2024-04-14 07:39 | PM.PNORT ---
Subjective Subjective Date of Service: 04/14/24 Principal diagnosis: Right ankle fracture/dislocation and peripheral neuropathy Interval history: s/p removal of long leg cast into short leg cast Patient is resting in bed comfortably No overnight events Pain is managed No additional complaints Physical Exam Vital Signs: Vital Signs: Last Vital Signs Temp 97.1 F 04/14/24 07:21 Pulse 76 04/14/24 07:21 Resp 17 04/14/24 07:21 BP 145/81 H 04/14/24 07:21 Pulse Ox 97 04/14/24 07:21 O2 Del Method Room Air 04/14/24 07:21 O2 Flow Rate 6 04/07/24 15:50 FiO2 98 03/11/24 17:14 BMI result Body Mass Index 40.5 Const: General: cooperative, healthy appearing and no acute distress Resp: Effort & Inspection: normal respiratory effort and able to speak in complete sentences Cardio: Rate: regular rate Peripheral pulses: Peripheral pulses 2+ throughout GI: Palpation (GI): Soft to palpation Skin: Lesions: no lesions Rashes: no rashes Extrem: Other: RLE short leg cast is intact. Able to move all digits. Procedures Date of Service Date of Service: 04/14/24 Progress Note: A&P Assessment and plan (1) Peripheral neuropathy: Status: Acute (2) Diabetic ulcer of right foot: Status: Acute (3) Atrial fibrillation: Status: Acute (4) Diabetes mellitus: Status: Acute (5) Trimalleolar fracture of right ankle: Status: Acute Assessment and Plan: RLE: Keep cast c/d/i Elevate on three pillows above heart level Continue dressing changes with wound care nurse NWMateo RLE Time Spent With Patient Time: Total time managing care of this patient today ____ minutes. Quality Stroke Does the patient have a stroke diagnosis?: No VTE Prior VTE?: No VTE Risk Level:: Medical - moderate - high VTE Device Contraindication: N/A - Device Ordered VTE Drug Contraindication: N/A - Med Ordered
[2024-04-14] MEDS: Gabapentin 300 MG CAPSULE PO (07:55)
[2024-04-14] MEDS: Losartan Potassium 25 MG TABLET PO (07:56)
[2024-04-14] MEDS: Cholecalciferol (Vitamin D3) 25 MCG TABLET PO (07:56)
[2024-04-14] MEDS: amLODIPine Besylate 5 MG TABLET PO (07:57)
[2024-04-14] MEDS: Cyanocobalamin (Vitamin B-12) 1,000 MCG TABLET 1000 MCG PO (07:57)
[2024-04-14] MEDS: Atorvastatin Calcium 40 MG TABLET PO (07:57)
[2024-04-14] MEDS: Ascorbic Acid 500 MG TABLET PO (07:57)
[2024-04-14] MEDS: Metoprolol Tartrate 50 MG TABLET PO ×2 (07:57→21:25)
[2024-04-14] MEDS: DULoxetine HCl 60 MG CAPSULE.DR 120 MG PO (07:57)
[2024-04-14] MEDS: Docusate Sodium 100 MG CAPSULE 200 MG PO (07:57)
[2024-04-14] MEDS: 0.9 % Sodium Chloride Flush 3 ML SYRINGE IVFLUSH ×2 (07:58→15:26)
[2024-04-14] MEDS: Enoxaparin Sodium 40 MG/0.4 ML SYRINGE SUBCUT (07:58)
[2024-04-14] MEDS: Acetaminophen 325 MG TABLET 650 MG PO ×2 (08:02→17:21)
[2024-04-14 08:58] LABS: MANUAL DIFF FLAG NO
[2024-04-14 09:02] LABS: Basophils Percent Auto 0.7 % (0-2); Eosinophils Absolute Auto 0.3 X10*3/uL (0.0-0.4); Eosinophils Percent Auto 5.5 % (0-4); Hematocrit 33.5 % (37.0-47.0); Hemoglobin 10.4 g/dl (12.0-16.0); Imm Gran Abs Auto 0.03 X10*3/uL (0.00-0.03); Imm Gran Pct Auto 0.5 % (0.0-0.4); Lymphocytes Absolute Auto 1.5 X10*3/uL (1.2-4.9); Lymphocytes Percent Auto 24.8 % (20-40); Mean Corpuscular Hemoglobin 26.5 pg (27.0-33.0); Mean Corpuscular Volume 85.2 fL (80.0-98.0); Mean Platelet Volume 9.4 fL (9.4-12.3); Monocytes Absolute Auto 0.6 X10*3/uL (0.1-1.2); Monocytes Percent Auto 9.7 % (2-11); Neutrophils Absolute Auto 3.4 x10*3/uL (2.0-8.3); Neutrophils Percent Auto 58.8 % (45-73); Platelet Count 255 X10*3/uL (160-400); Red Blood Count 3.93 X10*6/uL (4.20-5.50); Red Cell Distribution Width 15.6 % (11.0-16.0); White Blood Count 5.9 X10*3/uL (4.8-10.8)
[2024-04-14 09:14] LABS: Anion Gap 10 (12-20); Blood Urea Nitrogen 11 mg/dL (9-16); Calcium 9.8 mg/dL (8.4-10.2); Carbon Dioxide 29 mmol/L (22-29); Chloride 107 mmol/L (96-108); Creatinine Clr Calc Pharmacy 86.3; Estimated Glomerular Filt Rate > 60; Glucose Fasting 113 mg/dL (60-99); Potassium 3.3 mmol/L (3.3-5.1); Sodium 143 mmol/L (135-145)
[2024-04-14] MEDS: vancomycin HCL 1,000 MG in 0.9 % Sodium Chloride 250 ML 270 MG IV ×2 (10:43→21:36)
[2024-04-14 11:23] LABS: Glucose, Whole Blood 110 mg/dL (60-115)
--- NOTE | 2024-04-14 13:19 | MHC.CM.PN ---
Addendum entered by Cornelia Mae RN 04/14/24 13:46: [facility] cannot accept patient, as she has not had qualifying 3 nights of ICU or tele. Original Note: Per ortho team, patient is not cleared for dc. Plan for dc to rehab Friday. [facility] vs [facility]. Awaiting response from [facility]. CM will continue to follow.
[2024-04-14 14:31] VITALS: BP 145/81; PULSE 76; O2SAT 97
[2024-04-14 15:29] VITALS: BP 118/73; PULSE 86; RESP 18; TEMP 36.3; O2SAT 94
[2024-04-14 16:22] LABS: Glucose, Whole Blood 125 mg/dL (60-115)
[2024-04-14 19:14] VITALS: BP 135/83; PULSE 93; RESP 18; TEMP 36.4; O2SAT 95
[2024-04-14 19:20] LABS: Glucose, Whole Blood 115 mg/dL (60-115)
[2024-04-14 20:25] LABS: Vancomycin Random 16.6 mcg/mL (15-20)
--- NOTE | 2024-04-14 20:29 | HE.PHANOTE ---
Re: [place] Stable renal function. Trough returned at 16.6, pt is therapeutic. Continue current dose of 1,00mg Q12H, with predicted AUC 572, and predicted trough 17.9. Next trough to be drawn 04/15 @ 1999.
[2024-04-14] MEDS: lamoTRIgine 100 MG TABLET 300 MG PO (21:24)
[2024-04-14 21:25] VITALS: BP 132/82; PULSE 91
[2024-04-14] MEDS: Gabapentin 300 MG CAPSULE 600 MG PO (21:25)
[2024-04-15] VITALS (8 sets, daily range): BP systolic 132–159; BP diastolic 72–90; PULSE 76–98; RESP 16–18; TEMP 36–36.5; O2SAT 95–96
[2024-04-15 05:43] LABS: MANUAL DIFF FLAG NO
[2024-04-15 05:48] LABS: Basophils Absolute Auto 0.1 X10*3/uL (0.0-0.2); Eosinophils Absolute Auto 0.4 X10*3/uL (0.0-0.4); Eosinophils Percent Auto 7.4 % (0-4); Hematocrit 30.6 % (37.0-47.0); Hemoglobin 9.6 g/dl (12.0-16.0); Imm Gran Abs Auto 0.02 X10*3/uL (0.00-0.03); Imm Gran Pct Auto 0.4 % (0.0-0.4); Lymphocytes Absolute Auto 1.4 X10*3/uL (1.2-4.9); Lymphocytes Percent Auto 27.5 % (20-40); Mean Corpuscular HGB Conc 31.4 g/dl (31.0-35.0); Mean Corpuscular Hemoglobin 26.6 pg (27.0-33.0); Mean Corpuscular Volume 84.8 fL (80.0-98.0); Mean Platelet Volume 9.4 fL (9.4-12.3); Monocytes Absolute Auto 0.6 X10*3/uL (0.1-1.2); Monocytes Percent Auto 10.7 % (2-11); Neutrophils Absolute Auto 2.7 x10*3/uL (2.0-8.3); Platelet Count 246 X10*3/uL (160-400); Red Blood Count 3.61 X10*6/uL (4.20-5.50); Red Cell Distribution Width 15.8 % (11.0-16.0); White Blood Count 5.1 X10*3/uL (4.8-10.8)
[2024-04-15 06:06] LABS: Anion Gap 12 (12-20); Blood Urea Nitrogen 11 mg/dL (9-16); Calcium 9.8 mg/dL (8.4-10.2); Carbon Dioxide 28 mmol/L (22-29); Chloride 108 mmol/L (96-108); Estimated Glomerular Filt Rate > 60; Glucose Fasting 96 mg/dL (60-99); Potassium 3.7 mmol/L (3.3-5.1); Sodium 144 mmol/L (135-145)
[2024-04-15] MEDS: Omeprazole 40 MG CAPSULE.DR PO (06:17)
[2024-04-15 07:12] LABS: Glucose, Whole Blood 97 mg/dL (60-115)
[2024-04-15] MEDS: Atorvastatin Calcium 40 MG TABLET PO (08:47)
[2024-04-15] MEDS: Losartan Potassium 25 MG TABLET PO (08:47)
[2024-04-15] MEDS: Cyanocobalamin (Vitamin B-12) 1,000 MCG TABLET 1000 MCG PO (08:48)
[2024-04-15] MEDS: amLODIPine Besylate 5 MG TABLET PO (08:48)
[2024-04-15] MEDS: Docusate Sodium 100 MG CAPSULE 200 MG PO (08:48)
[2024-04-15] MEDS: DULoxetine HCl 60 MG CAPSULE.DR 120 MG PO (08:48)
[2024-04-15] MEDS: Metoprolol Tartrate 50 MG TABLET PO ×2 (08:49→20:00)
[2024-04-15] MEDS: Ascorbic Acid 500 MG TABLET PO (08:49)
[2024-04-15] MEDS: Cholecalciferol (Vitamin D3) 25 MCG TABLET PO (08:49)
[2024-04-15] MEDS: Gabapentin 300 MG CAPSULE PO ×2 (08:49→19:56)
[2024-04-15] MEDS: Enoxaparin Sodium 40 MG/0.4 ML SYRINGE SUBCUT (08:49)
[2024-04-15] MEDS: 0.9 % Sodium Chloride Flush 3 ML SYRINGE IVFLUSH ×3 (08:54→21:54)
--- NOTE | 2024-04-15 09:10 | PM.PNORT ---
Subjective Subjective Date of Service: 04/15/24 Principal diagnosis: Right ankle fracture/dislocation and peripheral neuropathy Interval history: s/p removal of long leg cast into short leg cast Patient is resting in bed comfortably No overnight events Pain is managed No additional complaints Physical Exam Vital Signs: Vital Signs: Last Vital Signs Temp 97.7 F 04/15/24 06:59 Pulse 89 04/15/24 06:59 Resp 18 04/15/24 06:59 BP 159/86 H 04/15/24 08:49 Pulse Ox 96 04/15/24 06:59 O2 Del Method Room Air 04/15/24 06:59 O2 Flow Rate 6 04/07/24 15:50 FiO2 98 03/11/24 17:14 BMI result Body Mass Index 40.5 Const: General: cooperative, healthy appearing and no acute distress Resp: Effort & Inspection: normal respiratory effort and able to speak in complete sentences Cardio: Rate: regular rate Peripheral pulses: Peripheral pulses 2+ throughout GI: Palpation (GI): Soft to palpation Skin: Lesions: no lesions Rashes: no rashes Extrem: Other: RLE short leg cast is intact. Silver removed and wounds clean, dry and intact. No active drainage Able to move all digits. Procedures Date of Service Date of Service: 04/15/24 Progress Note: A&P Assessment and plan (1) Peripheral neuropathy: Status: Acute (2) Diabetic ulcer of right foot: Status: Acute (3) Atrial fibrillation: Status: Acute (4) Diabetes mellitus: Status: Acute (5) Trimalleolar fracture of right ankle: Status: Acute Assessment and Plan: RLE: Keep cast c/d/i Elevate on three pillows above heart level New silver dressing applied with gauze NWB RLE Pending Rehab Time Spent With Patient Time: Total time managing care of this patient today ____ minutes. Quality Stroke Does the patient have a stroke diagnosis?: No VTE Prior VTE?: No VTE Risk Level:: Medical - moderate - high VTE Device Contraindication: N/A - Device Ordered VTE Drug Contraindication: N/A - Med Ordered
[2024-04-15] MEDS: vancomycin HCL 1,000 MG in 0.9 % Sodium Chloride 250 ML 270 MG IV ×2 (10:37→21:52)
[2024-04-15 11:04] LABS: Glucose, Whole Blood 89 mg/dL (60-115)
[2024-04-15] MEDS: Acetaminophen 325 MG TABLET 650 MG PO (15:36)
[2024-04-15 16:07] LABS: Glucose, Whole Blood 108 mg/dL (60-115)
[2024-04-15 19:36] LABS: Glucose, Whole Blood 159 mg/dL (60-115)
[2024-04-15] MEDS: lamoTRIgine 100 MG TABLET 300 MG PO ×2 (19:54→19:59)
[2024-04-15] MEDS: Gabapentin 300 MG CAPSULE 600 MG PO (19:58)
[2024-04-15] MEDS: Insulin Lispro 100 UNIT/ML 3 ML VIAL SUBCUT (20:46)
[2024-04-15 21:22] LABS: Vancomycin Random 17.9 mcg/mL (15-20)
--- NOTE | 2024-04-15 21:32 | HE.PHANOTE ---
Re: Dwaine Stable renal function. Trough returned at 17.9 (exact prediction of insight), pt is therapeutic. Continue current dose of 1,00mg Q12H, with predicted AUC 550, and predicted trough 17. Next trough to be drawn 04/16 @ 1999.
[2024-04-16 00:11] VITALS: PULSE 78; RESP 18; O2SAT 96
[2024-04-16 03:03] VITALS: BP 157/79; PULSE 81; RESP 16; TEMP 36.6; O2SAT 97
[2024-04-16] MEDS: Omeprazole 40 MG CAPSULE.DR PO (05:48)
[2024-04-16 05:59] LABS: MANUAL DIFF FLAG NO
[2024-04-16 06:18] LABS: Anion Gap 13 (12-20); Blood Urea Nitrogen 13 mg/dL (9-16); Calcium 9.8 mg/dL (8.4-10.2); Carbon Dioxide 25 mmol/L (22-29); Chloride 110 mmol/L (96-108); Creatinine Clr Calc Pharmacy 92.2; Estimated Glomerular Filt Rate > 60; Glucose Fasting 94 mg/dL (60-99); Potassium 3.6 mmol/L (3.3-5.1); Sodium 144 mmol/L (135-145)
[2024-04-16 06:25] LABS: Basophils Absolute Auto 0.1 X10*3/uL (0.0-0.2); Eosinophils Absolute Auto 0.4 X10*3/uL (0.0-0.4); Eosinophils Percent Auto 7.1 % (0-4); Hematocrit 32.5 % (37.0-47.0); Hemoglobin 10.1 g/dl (12.0-16.0); Imm Gran Abs Auto 0.04 X10*3/uL (0.00-0.03); Imm Gran Pct Auto 0.8 % (0.0-0.4); Lymphocytes Absolute Auto 1.6 X10*3/uL (1.2-4.9); Lymphocytes Percent Auto 30.3 % (20-40); Mean Corpuscular HGB Conc 31.1 g/dl (31.0-35.0); Mean Corpuscular Hemoglobin 26.6 pg (27.0-33.0); Mean Corpuscular Volume 85.5 fL (80.0-98.0); Mean Platelet Volume 10.1 fL (9.4-12.3); Monocytes Absolute Auto 0.6 X10*3/uL (0.1-1.2); Monocytes Percent Auto 11.2 % (2-11); Neutrophils Absolute Auto 2.6 x10*3/uL (2.0-8.3); Neutrophils Percent Auto 49.6 % (45-73); Platelet Count 229 X10*3/uL (160-400); Red Cell Distribution Width 15.8 % (11.0-16.0); White Blood Count 5.2 X10*3/uL (4.8-10.8)
[2024-04-16 07:21] LABS: Glucose, Whole Blood 94 mg/dL (60-115)
[2024-04-16 07:30] VITALS: BP 162/98; PULSE 66; RESP 18; TEMP 36.2; O2SAT 99
--- NOTE | 2024-04-16 08:06 | PM.DS ---
DS: Providers Provider Date of Service: 04/16/24 <Angelica Trevizo PA-C - Last Filed: 04/16/24 08:42> Date of admission: 03/09/24 15:23 <Angelica Trevizo PA-C - Last Filed: 04/16/24 08:42> Primary care physician: Erik Kim DO <Angelica Trevizo PA-C - Last Filed: 04/16/24 08:42> Consults: 03/09/24 14:21 Consult to Hospitalist Routine Comment: Consulting Provider: Hospitalist Reason For Exam: a.fib on eliquis - hold for surgery 03/09/24 15:58 Consult to Wound Care Routine Reason for consultation: ? left extremity DM ulcer- unable to vis due to cast 03/09/24 16:45 Consult to Cardiology Routine Consulting Provider: [facility] Reason for consultation: cardiac risk stratification pre op. echo ordered 03/24/24 16:03 Consult to Infectious Diseases Routine Consulting Provider: [facility] Reason for consultation: RLE external fixator wound breakdown, DM, neuropathy Consult to Wound Care Routine Reason for consultation: RLE external fixator wound breakdown, DM, neuropathy 04/02/24 08:39 Consult to Hospitalist Routine Comment: Consulting Provider: Hospitalist Reason For Exam: HTN/DM 04/10/24 05:56 Consult to Psychiatry Routine Consulting Provider: [facility] Reason for consultation: Suicide ideation Has provider been notified: No 04/10/24 10:01 Consult to Care Team Routine Comment: Reason for consultation: Si 04/11/24 10:23 Consult to Wound Care Routine Reason for consultation: left great toe nail removed, left plantar scab removed by pt <Angelica Trevizo PA-C - Last Filed: 04/16/24 08:42> DS: Diagnosis Discharge Diagnosis (1) Peripheral neuropathy: Status: Acute <Angelica Trevizo PA-C - Last Filed: 04/16/24 08:42> (2) Diabetic ulcer of right foot: Status: Acute <Angelica Trevizo PA-C - Last Filed: 04/16/24 08:42> (3) Atrial fibrillation: Status: Acute <Angelica Trevizo PA-C - Last Filed: 04/16/24 08:42> (4) Diabetes mellitus: Status: Acute <Angelica Trevizo KYLE - Last Filed: 04/16/24 08:42> (5) Trimalleolar fracture of right ankle: Status: Acute <Angelica Trevizo KYLE - Last Filed: 04/16/24 08:42> DS: Summary Hospital Course Hospital Course: Patient was admitted to the hospital on 03/09/24 for right ankle fracture dislocation. on 03/10/24 the patient underwent right ankle external fixation. Unfortunately that evening the patient attempted to get out of bed and ambulate, displacing the external fixator. The patient was brought back to the OR on 03/11/24 for external fixator replacement/adjustment. During her hospital stay the patient experienced skin breakdown around the foot and ankle at the pin sites. Infection developed in these areas. The patient was brought back to the operating room on 03/24/24 for pin site debridement and removal of metatarsal pins. She was also started on IV vancomyocin. On 03/30/24 the patient was brought back to the operating room for removal of external fixation given continued wound breakdown. An irrigation and debridement was also perfomed and she was placed into a long leg cast. Wound care nurse has also been treating the patient for wound site care and dressing changes. 04/07/24 the patient was brought back to the operating room for irrigation and wound care and reapplication of a long leg cast. On 04/13/24, long leg cast was removed and she was placed in a short leg cast with windows on the medial and lateral aspect of the cast for continued wound care of the pinn sites. The wounds were dressed with Silver aginate and a gauze was applied over the silver along with an joana wrap to hold in place. patient will remain non weight bearing. She is able to get out of bed; which is strongly encouraged for every meal. Upper body conditioning. Non weight bearing ROM of the knee and isometric quad strength is recommended. A PICC line has been placed on 04/12/24 for IV abx : Administer IV vancomycin 1g q12 hr w/ sodium chloride .9% PICC Line Insertion NPICC Diagnosis: Diabetic foot ulcer Indication: care home ABT Pertinent Labs: reviewed Technique: Following informed consent including risks, benefits and alternatives and using sterile technique including cap and mask, sterile gown, glove and drape, the right arm was prepped and draped in the usual sterile fashion of full barrier technique with CHG. Following completion of Lowgap Protocol the skin and soft tissues were anesthetized with 1% Lidocaine plain. Using ultrasound guidance, right brachial vein access was obtained. Over an 0.018 wire through peel-away sheath, a 5fr double lumen PICC line was positioned. Catheter length is 40cm internal length, 0cm external length, for a total trimmed length of 40cm. The procedure was performed in [facility]. Tip verification was performed by Gerald Andrade with Sherlock 3CG. Tip located in SVC. Ultrasound was used to document vein patency and for needle entry. A formal ultrasound picture and cardiac rhythm strip was recorded. Vascular Insurance Verification Specialist has released the line for use and it is currently dressed with a StatLock, Tegaderm, and CHG disc. Verification has been performed for blood return and line patency. Arm Circumference: 32cm Equipment: [employer] PowerPICC SOLO with Sherlock 3CG Catheter Type: 5FR double lumen catheter Lot #: [id number] She will Continue IV abx until infection is cleared Weekly BUN/creatinine Check Vanco trough levels after 4th dose Keep Vanco trough level between 10 and 20 Flush PICC line with 10 cc of normal saline 3 times a day 04/22/24 2:30 [facility] Marie Senior PA-C <Angelica Trevizo PA-C - Last Filed: 04/16/24 08:42> Time Attestation Discharge Coordination Time (in mins): 30 <Angelica Trevizo PA-C - Last Filed: 04/16/24 08:42> Quality: Safe Use of Opioids Does Pt have an Active Cancer Diagnosis on the Problem List?: No <Marie Senior PA-C - Last Filed: 04/16/24 14:16> Quality: Stroke Does the patient have a stroke diagnosis?: No <Angelica Trevizo PA-C - Last Filed: 04/16/24 08:42> Physical Exam Vital Signs: Vital Signs: Last Vital Signs Temp 97.1 F 04/16/24 07:30 Pulse 66 04/16/24 07:30 Resp 18 04/16/24 07:30 BP 162/98 H 04/16/24 07:30 Pulse Ox 99 04/16/24 07:30 O2 Del Method BiPAP 04/16/24 07:30 O2 Flow Rate 6 04/07/24 15:50 FiO2 98 03/11/24 17:14 BMI result Body Mass Index 40.5 <Angelica Madelin CALVIN TrevizoC - Last Filed: 04/16/24 08:42> Const: General: cooperative, healthy appearing and no acute distress <Angelica Madelin PAUL TrevizoMauC - Last Filed: 04/16/24 08:42> Resp: Effort & Inspection: normal respiratory effort and able to speak in complete sentences <CALVIN BooTristen - Last Filed: 04/16/24 08:42> Cardio: Rate: regular rate <PAUL BooMauC - Last Filed: 04/16/24 08:42> Peripheral pulses: Peripheral pulses 2+ throughout <AngelicaPAUL AbdiMauC - Last Filed: 04/16/24 08:42> GI: Palpation (GI): Soft to palpation <AngelicaPAUL AbdiAllyssa - Last Filed: 04/16/24 08:42> Skin: Lesions: no lesions <AngelicaPAUL AbdiMauC - Last Filed: 04/16/24 08:42> Rashes: no rashes <PAUL BooMauC - Last Filed: 04/16/24 08:42> Extrem: Other: RLE short leg cast is intact with dressings clean, dry and intact. No active drainage. Able to move all digits. <CALVIN BooTristen - Last Filed: 04/16/24 08:42> DS: Data Data Completed and Pending Labs on day of discharge: Laboratory Results - last 24 hr 04/15/24 04/15/24 04/15/24 11:00 16:03 19:17 WBC RBC Hgb Hct MCV MCH MCHC RDW Plt Count MPV Immature Gran % (Auto) Neut % (Auto) Lymph % (Auto) Edwards % (Auto) Eos % (Auto) Baso % (Auto) Lymph # (Auto) Edwards # (Auto) Eos # (Auto) Baso # (Auto) Abs Immat Gran (auto) Absolute Neuts (auto) Absolute Nucleated RBC Nucleated RBC % (auto) Hold Purple Top Sodium Potassium Chloride Carbon Dioxide Anion Gap BUN Creatinine Estim Creat Clear Calc Estimated GFR POC Glucose 89 108 159 H Fasting Glucose Calcium Random Vancomycin 04/15/24 04/16/24 04/16/24 20:19 05:46 07:02 WBC 5.2 RBC 3.80 L Hgb 10.1 L Hct 32.5 L MCV 85.5 MCH 26.6 L MCHC 31.1 RDW 15.8 Plt Count 229 MPV 10.1 Immature Gran % (Auto) 0.8 H Neut % (Auto) 49.6 Lymph % (Auto) 30.3 Edwards % (Auto) 11.2 H Eos % (Auto) 7.1 H Baso % (Auto) 1.0 Lymph # (Auto) 1.6 Edwards # (Auto) 0.6 Eos # (Auto) 0.4 Baso # (Auto) 0.1 Abs Immat Gran (auto) 0.04 H Absolute Neuts (auto) 2.6 Absolute Nucleated RBC 0.000 Nucleated RBC % (auto) 0.0 Hold Purple Top SEE NOTE Sodium 144 Potassium 3.6 Chloride 110 H Carbon Dioxide 25 Anion Gap 13 BUN 13 Creatinine 0.73 Estim Creat Clear Calc 92.2 Estimated GFR > 60 POC Glucose 94 Fasting Glucose 94 Calcium 9.8 Random Vancomycin 17.9 <Angelica Trevizo PA-C - Last Filed: 04/16/24 08:42> Discharge Plan Discharge Anticipated Discharge Date/Time: 04/16/24 08:02 <Angelica Trevizo PA-C - Last Filed: 04/16/24 08:42> Patient Disposition: er [facility] <Angelica Trevizo PA-C - Last Filed: 04/16/24 08:42> Discharge Diagnosis: right ankle fracture dislocation <Angelica Trevizo PA-C - Last Filed: 04/16/24 08:42> right ankle fracture dislocation <Marie Senior PA-C - Last Filed: 04/16/24 14:16> Referrals: Jesse Mcgovern [Outside] Marie Senior PA-C [Physician Relay Dispatcher] - 04/22/24 2:30 pm Physician,Unknown J [Physician] - 1 Week <Angelica Trevizo PA-C - Last Filed: 04/16/24 08:42> Discharge Medications: New amlodipine 5 mg Tablet 5 mg PO DAILY 30 Days Qty: 30 0RF Protocol: Hold for SBP< HOLD for SBP < : 90 losartan 25 mg Tablet 25 mg PO DAILY 30 Days Qty: 30 0RF Protocol: Hold for SBP< HOLD for SBP < : 90 docusate sodium 100 mg Capsule 200 mg PO DAILY 30 Days Qty: 60 0RF enoxaparin 40 mg/0.4 mL Syringe 40 mg subcut Q24H 42 Days Qty: 16.8 0RF vancomycin in 0.9 % sodium chl 1 gram/250 mL solution 1 g IV Q12H 42 Days Qty: 3000 0RF Continued acetaminophen 325 mg Tablet 650 mg PO Q6H PRN (Reason: Pain, Mild (Pain Scale 1-3)) Qty: 30 0RF metoprolol tartrate 50 mg Tablet 50 mg PO BID 30 Days Qty: 60 0RF Protocol: Hold for SBP/HR < HOLD for SBP < : 90 HOLD for HR < : 60 nystatin 100,000 unit/gram Powder 1 appl topical TID 30 Days Qty: 5 0RF Protocol: Apply to: Apply to: Abdominal folds and groin atorvastatin 40 mg tablet 40 mg PO DAILY 30 Days Qty: 30 0RF metformin 500 mg tablet 500 mg PO BID 30 Days Qty: 60 0RF omeprazole 40 mg capsule,delayed release(DR/EC) 40 mg PO DAILY 30 Days Qty: 30 0RF Eliquis 5 mg tablet 5 mg PO BID Qty: 60 0RF lamotrigine 150 mg tablet 300 mg PO BEDTIME gabapentin 300 mg capsule 600 mg PO BEDTIME gabapentin 300 mg capsule 300 mg PO DAILY duloxetine 30 mg capsule,delayed release(DR/EC) 30 mg PO DAILY duloxetine 60 mg capsule,delayed release(DR/EC) 60 mg PO DAILY cyanocobalamin (vitamin B-12) 1,000 mcg Tablet 1,000 mcg PO DAILY ascorbic acid (vitamin C) 500 mg Tablet 500 mg PO DAILY cholecalciferol (vitamin D3) 25 mcg (1,000 unit) Tablet 25 mcg PO DAILY <Angelica Trevizo PA-C - Last Filed: 04/16/24 08:42> Discharge Orders: Discharge Order (Routine); Ordered 04/16/24 Ordered By: Angelica Trevizo <Angelica Trevizo PA-C - Last Filed: 04/16/24 08:42> Diet: Advance to usual diet <KYLE Boo Last Filed: 04/16/24 08:42> Advance to usual diet <Marie Senior PA-C - Last Filed: 04/16/24 14:16> Activity on Discharge: Use cane or walker <KYLE Boo Last Filed: 04/16/24 08:42> Use cane or walker <KYLE Kaur Last Filed: 04/16/24 14:16> Stand Alone Forms: Patient Portal Discharge page <KYLE Boo Last Filed: 04/16/24 08:42> Print Language: [place] <Angelica Trevizo PA-C - Last Filed: 04/16/24 08:42> Care Plan Goals: restore fxn to left ankle <Angelica Trevizo PA-C - Last Filed: 04/16/24 08:42> Health Concerns: a. fib depression peripheral nuropathy DMII - controlled <KYLE Boo Last Filed: 04/16/24 08:42> Plan of Treatment: NWB LLE Keep cast c/d/i Medial sided window for dressing changes Dressing to remain in place until f/u No tub bath or shower-Keep dressings and cast clean, dry and intact Follow up with orthopedics 04/22/24 at 2:30pm with Marie Senior PA-C Picc line care and Labs: Weekly CBC w diff, BUN/creatinine Check Vanco trough levels after 4th dose Keep Vanco trough level between 10 and 20 Flush PICC line with 10 cc of normal saline 3 times a day <KYLE Boo Last Filed: 04/16/24 08:42> Assessment: stable for d/c <Angelica Trevizo PA-C - Last Filed: 04/16/24 08:42> Patient Instructions: ORIF (GEN) <Angelica Trevizo PA-C - Last Filed: 04/16/24 08:42>
[2024-04-16] MEDS: Cholecalciferol (Vitamin D3) 25 MCG TABLET PO (09:37)
[2024-04-16] MEDS: Cyanocobalamin (Vitamin B-12) 1,000 MCG TABLET 1000 MCG PO (09:37)
[2024-04-16] MEDS: DULoxetine HCl 60 MG CAPSULE.DR 120 MG PO (09:38)
[2024-04-16] MEDS: Gabapentin 300 MG CAPSULE PO (09:38)
[2024-04-16 09:39] VITALS: BP 162/98
[2024-04-16] MEDS: Atorvastatin Calcium 40 MG TABLET PO (09:39)
[2024-04-16] MEDS: amLODIPine Besylate 5 MG TABLET PO (09:39)
[2024-04-16] MEDS: Losartan Potassium 25 MG TABLET PO (09:39)
[2024-04-16 09:40] VITALS: BP 162/98; PULSE 66
[2024-04-16] MEDS: Docusate Sodium 100 MG CAPSULE 200 MG PO (09:40)
[2024-04-16] MEDS: Ascorbic Acid 500 MG TABLET PO (09:40)
[2024-04-16] MEDS: Metoprolol Tartrate 50 MG TABLET PO (09:40)
[2024-04-16] MEDS: Enoxaparin Sodium 40 MG/0.4 ML SYRINGE SUBCUT (09:59)
[2024-04-16] MEDS: vancomycin HCL 1,000 MG in 0.9 % Sodium Chloride 250 ML 270 MG IV (10:17)
[2024-04-16] MEDS: 0.9 % Sodium Chloride Flush 3 ML SYRINGE IVFLUSH (10:56)
[2024-04-16 11:15] LABS: Glucose, Whole Blood 89 mg/dL (60-115)
--- NOTE | 2024-04-16 11:19 | MHC.CM.PN ---
Second IMM given 04/16. Pt is medically cleared for discharge to [facility] at [facility] via BLS/Rena at 2pm. Pt aware and in agreement wi plan.
--- NOTE | 2024-04-16 12:44 | MHC.CM.PN ---
Second IMM given 04/16. Pt is medically cleared for discharge to [facility] at [facility] via BLS/Rena at 2pm. Pt aware and in agreement with plan.
--- NOTE | 2024-04-19 11:01 | P.CDIM_ITS ---
PROVIDER RESPONSE TEXT: To clarify, the appropriate diagnosis supported by the clinical indicators: Excisional debridement: Rob lateral and medial calcaneal wounds were full thickness and tracked to th e pin insertion at the calcaneus. The lateral pin site was purulent. This was debrided with minimal excision of necrotic tis mirna and a currette to stimulate bleeding. metatarsal wound was full thickness but granulation tissue at the base and no nedra dence of infection. THis was debrided with a currette to stimulate bleeding. QUERY TEXT: PHYSICIAN'S DOCUMENTATION REQUEST Date of Query: 03/31/2024 08:31 AM EDT Patient Name: Ashley Hurtado Admit Date: 03/09/2024 Dear Santiago Paulino MD, A review of the medical record indicates additional documentation may be needed. Please review below and update the documentation accordingly. Clinical Indicators: Per Operative Note 03/26/24: debridement pin sites and removal of metatarsal pins Could you provide, in the Progress Notes, further clarification regarding the type and nature of the debridement? Excisional debridement Please also address the Type of instrument used, What was excised, Depth of debridement, and Size and appearance of the wound as able Non-excisional debridement Please also address the Depth of debridement, and Size and appearance of the wound as able Other (explain) Clinically unable to determine (explain) Thank you, Carolynn Bruner RN Use of terms such as suspected, likely, concern for, or probable (associated with a specific diagnosi s that is being evaluated, monitored, or treated as if it exists) are acceptable and can be coded in the inpatient se tting, when documented at the time of discharge. Please use your independent medical judgment in providing your response. THIS QUERY IS PART OF THE PERMANENT MEDICAL RECORD
--- NOTE | 2024-04-25 09:02 | P.OP_ITS ---
Operative Note Operative Note Date of Service: 04/07/24 Narrative: Date of Service: 04/07/24 Pre-op diagnosis: fracture dislocation right ankle with severe peripheral neuropathy Post-op diagnosis: same Procedure: Irrigation and wound care, exchange casting RLE Surgeon: Santiago Paulino MD Anesthesia: GLMA Was an Grounds Cleaner used for this Procedure?: No Estimated blood loss (mL): 0 IV fluids (mL): 300 Pathology: none sent Condition: stable Disposition: PACU Patient was brought to the operating room and placed supine on the surgical table. She was prepped and draped in standard sterile fashion and a time out was called to identify proper site and proper procedure. I began by removing the prior cast and examining the wounds. The anterior tibial wound and the metatarsal wounds were covered in healthy scab (tibia) and granulation tissue ( metatarsal). The medial calcaneal wound was clean and the lateral wound was also clean but with modertate depth. I curretted these wounds down the bleeding tissue. Once I was satisfied that all necrotic tissue was removed and the wounds were clean I packed it with silver alginate packing including the bone sites. Biplanar fluoro images then confirmed that the ankle was reduced although the fracture alignment was not optimal there was no way to improve it without skin incision. I therefore dressed the wound in sterile dressings and placed a copiously padded long leg cast. Pnce the cast was dry and hard it was bivalved and the top half removed to expose the wounds. It was then joana wrapped in place and final fluoro images confirmed a reduced ankle. The padding was again checked and I was satisfied that there were no areas of pressure. Patient was awakened from sedation and brought to the recovery room in stable condition. There were no known complications.
== END 2024-04-16 15:35 | disposition skilled nursing facility (03) | DRG 493 ==
PROVIDERS: Orthopaedic Surgery; Physician Assistant; Physician Assistant Medical; Admitting Provider Physician Assistant; PCP Family Medicine; Visit Provider Physician Assistant
PROC: 0QSG35Z Reposition Right Tibia with External Fixation Device, Percutaneous Approach (ICD-10-PCS; principal; 2024-03-10 16:00)
PROC: 0QPGX5Z Removal of External Fixation Device from Right Tibia, External Approach (ICD-10-PCS; principal; 2024-03-24 13:50)
DX: S82.851A Displaced trimalleolar fracture of right lower leg, initial encounter for closed fracture (principal); I48.19 Other persistent atrial fibrillation; Z68.41 Body mass index [BMI] 40.0-44.9, adult; I96 Gangrene, not elsewhere classified; T84.7XXA Infection and inflammatory reaction due to other internal orthopedic prosthetic devices, implants and grafts, initial encounter; X58.XXXA Exposure to other specified factors, initial encounter; K21.9 Gastro-esophageal reflux disease without esophagitis; E87.6 Hypokalemia; G47.33 Obstructive sleep apnea (adult) (pediatric); E66.01 Morbid (severe) obesity due to excess calories; E11.42 Type 2 diabetes mellitus with diabetic polyneuropathy; Z79.01 Long term (current) use of anticoagulants; Z79.84 Long term (current) use of oral hypoglycemic drugs; Z79.899 Other long term (current) drug therapy
CPT/HCPCS: 36415; 36573; 73610; 80048; 80202; 82565; 82947; 83036; 85025; 85027; 93005; 93306; 93922; 93925; 94660; 97110; 97163; 97167; 97530; 97535; 99212; C1713; C1751; J0330; J0690; J1100; J1650; J2250; J2371; J2405; J2543; J2704; J3010; J3370; J3371; J7120; Q9957

== ENCOUNTER → 2024-03-09 15:23 | Outpatient (BNV) | payer MEDICARE, OTHER, SELFPAY | PROVIDERS: Admitting Provider Physician Assistant; PCP Family Medicine; Visit Provider Internal Medicine | DX: G62.9 Polyneuropathy, unspecified (principal); S82.851K Displaced trimalleolar fracture of right lower leg, subsequent encounter for closed fracture with nonunion; E11.621 Type 2 diabetes mellitus with foot ulcer; L97.519 Non-pressure chronic ulcer of other part of right foot with unspecified severity | CPT/HCPCS: 99222; 99232 ==

== ENCOUNTER → 2024-03-09 15:23 | Outpatient (BNV) | payer MEDICARE, OTHER, SELFPAY | PROVIDERS: Admitting Provider Physician Assistant; Visit Provider Internal Medicine | DX: I48.91 Unspecified atrial fibrillation (principal); R06.09 Other forms of dyspnea; Z01.810 Encounter for preprocedural cardiovascular examination | CPT/HCPCS: 93010; 99223 ==

== ENCOUNTER → 2024-03-09 15:23 | Outpatient (BNV) | payer MEDICARE, OTHER, SELFPAY | PROVIDERS: Admitting Provider Physician Assistant; Visit Provider Physician Assistant | DX: I48.19 Other persistent atrial fibrillation (principal) | CPT/HCPCS: 99222; 99232; 99499 ==

== ENCOUNTER → 2024-03-09 15:23 | Outpatient (BNV) | payer MEDICARE, OTHER, SELFPAY | PROVIDERS: Admitting Provider Physician Assistant; Visit Provider Physician Assistant | DX: S82.851K Displaced trimalleolar fracture of right lower leg, subsequent encounter for closed fracture with nonunion (principal); E11.42 Type 2 diabetes mellitus with diabetic polyneuropathy; E11.621 Type 2 diabetes mellitus with foot ulcer; I48.91 Unspecified atrial fibrillation | CPT/HCPCS: 11042; 20680; 20692; 20693; 20694; 27818; 29345; 99024; 99222; 99499 ==

== ENCOUNTER → 2024-03-09 15:23 | Outpatient (BNV) | payer MEDICARE, OTHER, SELFPAY | PROVIDERS: Admitting Provider Physician Assistant; PCP Family Medicine; Visit Provider Psychiatry & Neurology Psychiatry | DX: F32.2 Major depressive disorder, single episode, severe without psychotic features (principal) | CPT/HCPCS: 99222 ==

== ENCOUNTER 2024-03-12 08:43 | Outpatient (REF) | payer MEDICARE, OTHER, SELFPAY | END 2024-03-12 08:44 | disposition home or self-care (01) | LOC: HO.HOSX 08:43 | PROVIDERS: Visit Provider Physician Assistant | DX: Z13.89 Encounter for screening for other disorder (principal) | CPT/HCPCS: J7120 ==

== ENCOUNTER 2024-04-17 01:44 | Inpatient (IN) | payer MEDICARE, OTHER, SELFPAY ==
[2024-04-17] VITALS (9 sets, daily range): BP systolic 133–147; BP diastolic 79–94; PULSE 81–102; RESP 14–20; TEMP 36–37.1; O2SAT 95–100; BMI 39.2
--- NOTE | ~2024-04-17 | XR_ITS ---
EXAMINATION: XR ANKLE, RIGHT CLINICAL INFORMATION: Right ankle fracture. COMPARISON: Lateral intraoperative images performed 04/07/2024. Prior radiographs of the right ankle 03/09/2024 TECHNIQUE: AP, lateral, and mortise views of the right ankle. FINDINGS: Orthopedic dressing in place. The trimalleolar ankle fracture is redemonstrated. On the lateral projection, the alignment appears unchanged compared with the intraoperative examination, improved compared with the preoperative examination. On the lateral view, there is minimal, if any, posterior subluxation of the talar dome with respect to the tibial plafond. On the frontal projection, there is a persistent valgus deformity at the talocrural joint. There is persistent, albeit slightly decreased, lateral displacement of the talus with respect to the tibia. The transverse displaced fracture of the medial malleolus is redemonstrated. The fragment abuts the medial aspect of the talus. Displaced oblique fracture of the distal fibula redemonstrated. There is callus formation crossing the fracture which is new compared to prior. Ghost tracks present within the distal diaphysis of the tibia. XR/XR ankle RT min 3V IMPRESSION: Trimalleolar ankle fracture redemonstrated with evidence of some fracture healing of the distal fibula with minimal, if any, healing of the tibia fracture. On the lateral projection, the alignment appears unchanged compared with the intraoperative images and improved compared with the preoperative images. Persistent, albeit decreased, lateral subluxation of the talus with respect to the tibia on the frontal projection allowing for slight differences in projection.
--- OUTSIDE RECORDS SUMMARY | 2024-04-17 02:34 | XMS_ITS | Continuity of Care Document ---
Author Organization [facility] Address 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 [place], [address] [place] [address]- Attending Physician: Erik Kim DO Admitting Physician: [...] virus vaccine, inactivated 08/09/17 Avery rded SARS-CoV-2(COVID-19)mRNA-LNP vac([id number]) 08/02/23 Recorded Influenza Virus Vaccine (oldterm) 1 [...] Influenza Virus Vaccine (oldterm) 08/26/11 Recorde d [id number] 12y+ bivalent booster vax 08/06/22 Recorded pneumococcal 13-valent vaccine 6 07/25/22 Recorded pneumococcal 13-valent vaccine 7 12/14/18 Recorded pneumococcal 13-valent vaccine 12/14/18 Recorded pneumococcal 13-valent vaccine 8 06/06/16 Recorded SARS-CoV-2 mRNA ([id number]-iwfww) vax 03/13/22 Recorded SARS-CoV-2 mRNA (erzlfxw-jvsg-wlluj) vax 9 08/21/21 Recorded SARS-CoV-2 mRNA (lyeumlb-oljv-ifwze) vax 10 01/13/21 Recorded SARS-CoV-2 (COVID-19) mRNA BNT-162b2 vac 09/03/21 Recorded SARS-CoV-2 (COVID-19) Ad26 vaccine 01/13/21 Record ed zoster vaccine, inactivated 03/13/20 Recorded zoster vaccine, inactivated 12/09/19 Recorded Zoster Vaccine Live 11 12/09/19 Recorded Zoster Vaccine Live 03/13/12 Recorded tetanus/diphtheria/pertussis, acel(Tdap) 10/21/11 Recorded Pneumococcal Vaccine (oldterm) 11/08/06 Given pneumococcal 23-valent vaccine 12 11/08/06 Recorde d 1Result Comment: Unit: Unknown Route: Intramuscular Camera Technician: Sanofi Pasteur 2Result Comment: Route: Intramuscular Camera Technician: Sanofi Pasteur 3Result Comment: Unit: Unknown 4Result Comment: Unit: Unknown 5Result Comment: Unit: Unknown 6Result Comment: Unit: Unknown Route: Intramuscular Camera Technician: Pfizer 7Result Comment: Unit: Unknown Route: Intramuscular Camera Technician: Wyeth 8Result Comment: Unit: Unknown 9Result Comment: Route: Intramuscular Camera Technician: Sanofi Pasteur 10Result Comment: Unit: Unknown Route: Intramuscular Camera Technician: Suleiman 11Result Comment: Route: Intramuscular Camera Technician: GlaxAll My DataithKline 12Result Comment: Unit: Unknown Medications acetaminophen 325 mg oral tablet TAKE 2 TABLETS (650 MG)ORALLY EVERY 6 HOURS NEEDED FOR PAIN, MILD (PAIN SCALE 1-3) Start Date: 09/22/23 Status: Ordered atorvastatin 40 mg oral tablet 1 tablet = 40 mg, By Mouth, Daily, # 90 tablet, 3 Refills, Maintenance, 10/27/23 11:06:00 EST, Tablet, [facility]/pharmacy #[id number], Partial fill upon [...] Refills, Maintenance, 12/23/23 17:15:00 EST, [id number], 170.18, cm, 12/17/23 10:17:00 EST, Height, 127.2, kg, 10/02/23 3:00:00 EST, Dry Weight Start Date: 12/23/23 Status: Ordered estradiol 0.1 mg/g vaginal cream = 1 Gm, Vaginally, Daily at bedtime, # 30 Gm, 11 Refills, Maintenance, 11/17/23 9:45:00 EST, [facility]/pharmacy #[id number], Partial fill upon [...] Replace Required Details, Route to Pharmacy Electronically, [facility]/pharmacy #[id number], Partial fill upon patient reque... Start Date: 10/27/23 Status: Ordered Gemtesa 75 mg oral tablet 1 tablet = 75 mg, By Mouth, Daily, # 30 tablet, 11 Refills, Maintenance, 11/17/23 9:45:00 EST, [facility]/pharmacy #[id number], Partial fill upon [...] EST, Tablet Start Date: 10/20/12 Status: Ordered metFORMIN 500 mg oral tablet 1 tablet = 500 mg, By Mouth, 2 times a day, # 180 tablet, 2 Refills, Maintenance, 12/23/23 17:13:00EST, Tablet, [facility]/pharmacy #[id number], Partial fill upon patient request if the prescription is for a schedule II opioid drug., 170.18, cm, 12/17/23 10:17:00... Start Date: 12/23/23 Status: Ordered metoprolol 50 mg oral tablet 50 mg, 1, tablet, By Mouth, 2 times a day, # 180 tablet, Refills 3, Tot. Refills 3, Maintenance, 10/27/23 11:05:00 EST, Route to Pharmacy Electronically, [facility]/pharmacy #[id number], Partial fill upon patientrequest if the prescription is for a schedule II op... Start Date: 10/27/23 Status: Ordered nystatin topical 127864 u/gm powder See Instructions, APPLY TOPICALLY 3 TIMES A DAY TO RASH, # 60 Gm, 1 Refills, Maintenance, 02/02/24 7:47:00 EDT, [id number], 30, APPLY TOPICALLY 3 TIMES A DAY TO RASH, 170, cm, 01/19/24 14:19:00 EDT, Height, 136, kg, 01/17/24 9:30:00 EST, Dry Weight Start Date: 02/02/24 Status: Ordered omeprazole 40 mg oral enteric coated capsule 1 capsule = 40 mg, By Mouth, Daily, # 90 capsule, 3 Refills, Maintenance, 12/23/23 17:13:00 EST, ECCapsule, [facility]/pharmacy #[id number], Partial fill upon patient request if the [...] 10/20/12 Active Suicide attempt 1 Confirmed Active Ying's cyst of knee Confirmed Active Toxic metabolic encephalopathy 2 Confirmed [...] Team Personnel Name: Armani Reid DO Position: [facility] Renal MD Member Role: Lifetime Consulting Physician Address: Address: [address] [place] [address] [address] [facility] [place] [address]- Name: Maynor Lyons RN Position: [facility] RN Member Role: Primary Care Nurse Name: Erik Kim DO Position: [facility] Physician - Primary Care Member Role: PCP Address: Address: [address] [place] [id number]- Name: Dianna Frost RN Position: [facility] RN Member Role: Primary Care Nurse Care Team Related Persons Name: LORENA HARRISON Address: [address] [place] [address] Name: LAYNE TREADWELL Address: [address] [place] [address]
--- OUTSIDE RECORDS SUMMARY | 2024-04-17 02:34 | XMS_ITS | Continuity of Care Document ---
Author Organization [facility] Syed Gene lt Address [address] [place] [address]- Care Team Providers Care Kiln Setter Name Role Phone Erik Kim DO Primary Care Physician Encounter [facility] Date(s): 12/23/23 - 04/16/24 [facility] Adult [address] [place] [address]- Attending Physician: Erik Kim DO Allergies, Adverse [...] virus vaccine, inactivated 08/09/17 Avery rded SARS-CoV-2(COVID-19)mRNA-LNP vac([id number]) 08/02/23 Recorded Influenza Virus Vaccine (oldterm) 1 [...] Influenza Virus Vaccine (oldterm) 08/26/11 Recorde d [id number] 12y+ bivalent booster vax 08/06/22 Recorded pneumococcal 13-valent vaccine 6 07/25/22 Recorded pneumococcal 13-valent vaccine 7 12/14/18 Recorded pneumococcal 13-valent vaccine 12/14/18 Recorded pneumococcal 13-valent vaccine 8 06/06/16 Recorded SARS-CoV-2 mRNA (qdllqmn-hvgk-vogql) vax 03/13/22 Recorded SARS-CoV-2 mRNA (twkhxss-qyem-xdmlv) vax 9 08/21/21 Recorded SARS-CoV-2 mRNA (xrhynnd-prml-abidb) vax 10 01/13/21 Recorded SARS-CoV-2 (COVID-19) mRNA BNT-162b2 vac 09/03/21 Recorded SARS-CoV-2 (COVID-19) Ad26 vaccine 01/13/21 Record ed zoster vaccine, inactivated 03/13/20 Recorded zoster vaccine, inactivated 12/09/19 Recorded Zoster Vaccine Live 11 12/09/19 Recorded Zoster Vaccine Live 03/13/12 Recorded tetanus/diphtheria/pertussis, acel(Tdap) 10/21/11 Recorded Pneumococcal Vaccine (oldterm) 11/08/06 Given pneumococcal 23-valent vaccine 12 11/08/06 Recorde d 1Result Comment: Unit: Unknown Route: Intramuscular Excellence Consultant: Sanofi Pasteur 2Result Comment: Route: Intramuscular Excellence Consultant: Sanofi Pasteur 3Result Comment: Unit: Unknown 4Result Comment: Unit: Unknown 5Result Comment: Unit: Unknown 6Result Comment: Unit: Unknown Route: Intramuscular Excellence Consultant: Pfizer 7Result Comment: Unit: Unknown Route: Intramuscular Excellence Consultant: Wyeth 8Result Comment: Unit: Unknown 9Result Comment: Route: Intramuscular Excellence Consultant: Sanofi Pasteur 10Result Comment: Unit: Unknown Route: Intramuscular Excellence Consultant: Suleiman 11Result Comment: Route: Intramuscular Excellence Consultant: GlaxoSmithKline 12Result Comment: Unit: Unknown Medications acetaminophen 325 mg oral tablet TAKE 2 TABLETS (650 MG)ORALLY EVERY 6 HOURS NEEDED FOR PAIN, MILD (PAIN SCALE 1-3) Start Date: 09/22/23 Status: Ordered atorvastatin 40 mg oral tablet 1 tablet = 40 mg, By Mouth, Daily, # 90 tablet, 3 Refills, Maintenance, 10/27/23 11:06:00 EST, Tablet, [facility]/pharmacy #[id number], Partial fill upon patient request if [...] Refills, Maintenance, 12/23/23 17:15:00 EST, [facility], 170.18, cm, 12/17/23 10:17:00 EST, Height, 127.2, kg, 10/02/23 3:00:00 EST, Dry Weight Start Date: 12/23/23 Status: Ordered estradiol 0.1 mg/g vaginal cream = 1 Gm, Vaginally, Daily at bedtime, # 30 Gm, 11 Refills, Maintenance, 11/17/23 9:45:00 EST, [facility]/pharmacy #[id number], Partial fill upon patient request if [...] Required Details, Route to Pharmacy Electronically, [facility]/pharmacy #[id number], Partial fill upon patient reque... Start Date: 10/27/23 Status: Ordered Gemtesa 75 mg oral tablet 1 tablet = 75 mg, By Mouth, Daily, # 30 tablet, 11 Refills, Maintenance, 11/17/23 9:45:00 EST, [facility]/pharmacy #[id number], Partial fill upon patient request if [...] tablet, 2 Refills, Maintenance, 12/23/23 17:13:00EST, Tablet, [facility]/pharmacy #[id number], Partial fill upon patient request if the prescription is for a schedule II opioid drug., 170.18, cm, 12/17/23 10:17:00... Start Date: 12/23/23 Status: Ordered metoprolol 50 mg oral tablet 50 mg, 1, tablet, By Mouth, 2 times a day, # 180 tablet, Refills 3, Tot. Refills 3, Maintenance, 10/27/23 11:05:00 EST, Route to Pharmacy Electronically, [facility]/pharmacy #[id number], Partial fill upon patientrequest if the prescription is for a schedule II op... Start Date: 10/27/23 Status: Ordered nystatin topical 881032 u/gm powder See Instructions, APPLY TOPICALLY 3 TIMES A DAY TO RASH, # 60 Gm, 1 Refills, Maintenance, 02/02/24 7:47:00 EDT, [facility], 30, APPLY TOPICALLY 3 TIMES A DAY TO RASH, 170, cm, 01/19/24 14:19:00 EDT, Height, 136, kg, 01/17/24 9:30:00 EST, Dry Weight Start Date: 02/02/24 Status: Ordered omeprazole 40 mg oral enteric coated capsule 1 capsule = 40 mg, By Mouth, Daily, # 90 capsule, 3 Refills, Maintenance, 12/23/23 17:13:00 EST, ECCapsule, [facility]/pharmacy #[id number], Partial fill upon patient request if [...] Role: Lifetime Consulting Physician Address: Address: [address] [place] [address] [address] [facility] [place] [place] [address]- Name: Maynor Lyons RN Position: S RN Member Role: Primary Care Nurse Name: Erik Kim DO Position: [facility] Physician - Primary Care Member Role: PCP Address: Address: [address] [place] [address]- Name: Dianna Frost RN Position: [facility] RN Member Role: Primary Care Nurse Care Team Related Persons Name: LORENA HARRISON Address: home [address] [place] [address] Name: LAYNE TREADWELL Address: home [address] [place] [address]
--- OUTSIDE RECORDS SUMMARY | 2024-04-17 02:35 | XMS_ITS | Continuity of Care Document ---
Author Organization [facility] Syed Gene lt Address [address] [place] [address]- Care Team Providers Care Clinique Counter Manager Name Role Phone Erik Kim DO Primary Care Physician [phone] Encounter [facility] Date(s): 02/23/24 - 03/24/24 [facility] Adult [address] [place] [address]- Allergies, Adverse Reactions, Alerts Substance Reaction Severity [...] virus vaccine, inactivated 08/09/17 Avery rded SARS-CoV-2(COVID-19)mRNA-LNP vac([id number]) 08/02/23 Recorded Influenza Virus Vaccine (oldterm) 1 [...] Influenza Virus Vaccine (oldterm) 08/26/11 Recorde d [id number] 12y+ bivalent booster vax 08/06/22 Recorded pneumococcal 13-valent vaccine 6 07/25/22 Recorded pneumococcal 13-valent vaccine 7 12/14/18 Recorded pneumococcal 13-valent vaccine 12/14/18 Recorded pneumococcal 13-valent vaccine 8 06/06/16 Recorded SARS-CoV-2 mRNA (ksjrhkm-rkum-kdthp) vax 03/13/22 Recorded SARS-CoV-2 mRNA (qdjredq-bnoo-ngmme) vax 9 08/21/21 Recorded SARS-CoV-2 mRNA (efccxrs-rckz-exsxw) vax 10 01/13/21 Recorded SARS-CoV-2 (COVID-19) mRNA BNT-162b2 vac 09/03/21 Recorded SARS-CoV-2 (COVID-19) Ad26 vaccine 01/13/21 Record ed zoster vaccine, inactivated 03/13/20 Recorded zoster vaccine, inactivated 12/09/19 Recorded Zoster Vaccine Live 11 12/09/19 Recorded Zoster Vaccine Live 03/13/12 Recorded tetanus/diphtheria/pertussis, acel(Tdap) 10/21/11 Recorded Pneumococcal Vaccine (oldterm) 11/08/06 Given pneumococcal 23-valent vaccine 12 11/08/06 Recorde d 1Result Comment: Unit: Unknown Route: Intramuscular Gyro Compass Tester: Sanofi Pasteur 2Result Comment: Route: Intramuscular Gyro Compass Tester: Sanofi Pasteur 3Result Comment: Unit: Unknown 4Result Comment: Unit: Unknown 5Result Comment: Unit: Unknown 6Result Comment: Unit: Unknown Route: Intramuscular Gyro Compass Tester: Pfizer 7Result Comment: Unit: Unknown Route: Intramuscular Gyro Compass Tester: Wyeth 8Result Comment: Unit: Unknown 9Result Comment: Route: Intramuscular Gyro Compass Tester: Sanofi Pasteur 10Result Comment: Unit: Unknown Route: Intramuscular Gyro Compass Tester: Suleiman 11Result Comment: Route: Intramuscular Gyro Compass Tester: GlaxoSmithKline 12Result Comment: Unit: Unknown Medications acetaminophen [...] Refills, Maintenance, 12/23/23 17:15:00 EST, [facility], 170.18, cm, 12/17/23 10:17:00 EST, Height, 127.2, kg, 10/02/23 3:00:00 EST, Dry Weight Start Date: 12/23/23 Status: Ordered estradiol 0.1 mg/g vaginal cream = 1 Gm, Vaginally, Daily at bedtime, # 30 Gm, 11 Refills, Maintenance, 11/17/23 9:45:00 EST, [facility]/pharmacy [facility][id number], [facility] fill upon [id number] Partial fill upon patient reque... Start Date: 10/27/23 Status: Ordered Gemtesa 75 mg oral tablet 1 tablet = 75 mg, By Mouth, Daily, # 30 tablet, 11 Refills, Maintenance, 11/17/23 9:45:00 EST, [facility]/pharmacy #[id number], Partial fill upon [...] 04/01/24 21:50:00 EDT, 02/01/24 21:50:00 EDT, Tablet, [facility]/pharmacy #[id number], Part... Start Date: 02/01/24 Stop Date: 04/01/24 Status: Ordered metFORMIN 500 mg oral tablet 1 tablet = 500 mg, By Mouth, 2 times a day, # 180 tablet, 2 Refills, Maintenance, 12/23/23 17:13:00EST, Tablet, [facility]/pharmacy #[id number], Partial fill upon patient request if the [...] Start Date: 10/27/23 Status: Ordered nystatin topical [id number] u/gm powder See Instructions, APPLY TOPICALLY 3 TIMES A DAY TO RASH, # 60 Gm, 1 Refills, Maintenance, 02/02/24 7:47:00 EDT, [facility], 30, APPLY TOPICALLY 3 TIMES A DAY TO RASH, 170, cm, 01/19/24 14:19:00 EDT, Height, 136, kg, 01/17/24 9:30:00 EST, Dry Weight Start Date: 02/02/24 Status: Ordered omeprazole 40 mg oral enteric coated capsule 1 capsule = 40 mg, By Mouth, Daily, # 90 capsule, 3 Refills, Maintenance, 12/23/23 17:13:00 EST, ECCapsule, [facility]/pharmacy #[id number], Partial fill upon patient request if the [...] days ago; Other: quit 1973 6 yrs to11/13 6; Number of years: 6; Total pack years: 2; entered on: 07/03/23 Sex Female Patient Care team information Care Team Personnel Name: Armani Reid DO Position: [facility] Renal MD Member Role: Lifetime Consulting Physician Address: Address: [address] [place] [address] [address] [facility] [place] [address]- Name: Maynor Lyons RN Position: S RN Member Role: Primary Care Nurse Name: Erik Kim DO Position: [facility] Physician - Primary Care Member Role: PCP Address: Address: [address] [facility] [place] [address]- Name: Dianna Frost RN Position: [facility] RN Member Role: Primary Care Nurse Care Team Related Persons Name: LORENA HARRISON Address: home [address] [place] [address] Name: LAYNE TREADWELL Address: home [address] [place] [address]
--- OUTSIDE RECORDS SUMMARY | 2024-04-17 02:35 | XMS_ITS | Continuity of Care Document ---
Author Organization [facility] Syed Gene lt Address [address] [place] [address]- Care Team Providers Care Alterations Tailor Name Role Phone Erik Kim DO Primary Care Physician Encounter [facility] Date(s): 02/26/24 - 03/27/24 [facility] Adult [address] [place] [address]- Allergies, Adverse Reactions, Alerts Substance Reaction Severity [...] virus vaccine, inactivated 08/09/17 Avery rded SARS-CoV-2(COVID-19)mRNA-LNP vac([id number]) 08/02/23 Recorded Influenza Virus Vaccine (oldterm) 1 [...] Influenza Virus Vaccine (oldterm) 08/26/11 Recorde d [id number] 12y+ bivalent booster vax 08/06/22 Recorded pneumococcal 13-valent vaccine 6 07/25/22 Recorded pneumococcal 13-valent vaccine 7 12/14/18 Recorded pneumococcal 13-valent vaccine 12/14/18 Recorded pneumococcal 13-valent vaccine 8 06/06/16 Recorded SARS-CoV-2 mRNA (trtknng-nobb-ktoso) vax 03/13/22 Recorded SARS-CoV-2 mRNA (bgnmdit-ntze-qamkq) vax 9 08/21/21 Recorded SARS-CoV-2 mRNA (sjoukjz-gwbm-wraqh) vax 10 01/13/21 Recorded SARS-CoV-2 (COVID-19) mRNA BNT-162b2 vac 09/03/21 Recorded SARS-CoV-2 (COVID-19) Ad26 vaccine 01/13/21 Record ed zoster vaccine, inactivated 03/13/20 Recorded zoster vaccine, inactivated 12/09/19 Recorded Zoster Vaccine Live 11 12/09/19 Recorded Zoster Vaccine Live 03/13/12 Recorded tetanus/diphtheria/pertussis, acel(Tdap) 10/21/11 Recorded Pneumococcal Vaccine (oldterm) 11/08/06 Given pneumococcal 23-valent vaccine 12 11/08/06 Recorde d 1Result Comment: Unit: Unknown Route: Intramuscular Ethnoarchaeologist: Sanofi Pasteur 2Result Comment: Route: Intramuscular Ethnoarchaeologist: Sanofi Pasteur 3Result Comment: Unit: Unknown 4Result Comment: Unit: Unknown 5Result Comment: Unit: Unknown 6Result Comment: Unit: Unknown Route: Intramuscular Ethnoarchaeologist: Pfizer 7Result Comment: Unit: Unknown Route: Intramuscular Ethnoarchaeologist: Wyeth 8Result Comment: Unit: Unknown 9Result Comment: Route: Intramuscular Ethnoarchaeologist: Sanofi Pasteur 10Result Comment: Unit: Unknown Route: Intramuscular Ethnoarchaeologist: Suleiman 11Result Comment: Route: Intramuscular Ethnoarchaeologist: GlaxoSmithKline 12Result Comment: Unit: Unknown Medications acetaminophen 325 mg oral tablet TAKE 2 TABLETS (650 MG)ORALLY EVERY 6 HOURS NEEDED FOR PAIN, MILD (PAIN SCALE 1-3) Start Date: 09/22/23 Status: Ordered atorvastatin 40 mg oral tablet 1 tablet = 40 mg, By Mouth, Daily, # 90 tablet, 3 Refills, Maintenance, 10/27/23 11:06:00 EST, Tablet, [facility]/pharmacy #[id number], Partial fill upon patient [...] tablet, 0 Refills, Maintenance, 12/23/23 17:15:00 EST, [facility], 170.18, cm, 12/17/23 10:17:00 EST, Height, 127.2, kg, 10/02/23 3:00:00 EST, Dry Weight Start Date: 12/23/23 Status: Ordered estradiol 0.1 mg/g vaginal cream = 1 Gm, Vaginally, Daily at bedtime, # 30 Gm, 11 Refills, Maintenance, 11/17/23 9:45:00 EST, [facility]/pharmacy #[id number], Partial fill upon patient [...] Route to Pharmacy Electronically, [facility]/pharmacy #[id number], Partial fill upon patient reque... Start Date: 10/27/23 Status: Ordered Gemtesa 75 mg oral tablet 1 tablet = 75 mg, By Mouth, Daily, # 30 tablet, 11 Refills, Maintenance, 11/17/23 9:45:00 EST, [facility]/pharmacy #[id number], Partial fill upon patient [...] 04/01/24 21:50:00 EDT, 02/01/24 21:50:00 EDT, Tablet, [facility]/pharmacy #[id number], Part... Start Date: 02/01/24 Stop Date: 04/01/24 Status: Ordered metFORMIN 500 mg oral tablet 1 tablet = 500 mg, By Mouth, 2 times a day, # 180 tablet, 2 Refills, Maintenance, 12/23/23 17:13:00EST, Tablet, [facility]/pharmacy #[id number], Partial fill upon patient request if the prescription is for a schedule II opioid drug., 170.18, cm, 12/17/23 10:17:00... Start Date: 12/23/23 Status: Ordered metoprolol 50 mg oral tablet 50 mg, 1, tablet, By Mouth, 2 times a day, # 180 tablet, Refills 3, Tot. Refills 3, Maintenance, 10/27/23 11:05:00 EST, Route to Pharmacy Electronically, [facility]/pharmacy #[id number], Partial fill upon patientrequest if the prescription is for a schedule II op... Start Date: 10/27/23 Status: Ordered nystatin topical [id number] u/gm powder See Instructions, APPLY TOPICALLY 3 TIMES A DAY TO RASH, # 60 Gm, 1 Refills, Maintenance, 02/02/24 7:47:00 EDT, [facility], 30, APPLY TOPICALLY 3 TIMES A DAY TO RASH, 170, cm, 01/19/24 14:19:00 EDT, Height, 136, kg, 01/17/24 9:30:00 EST, Dry Weight Start Date: 02/02/24 Status: Ordered omeprazole 40 mg oral enteric coated capsule 1 capsule = 40 mg, By Mouth, Daily, # 90 capsule, 3 Refills, Maintenance, 12/23/23 17:13:00 EST, ECCapsule, [facility]/pharmacy #[id number], Partial fill upon patient request if the [...] Member Role: Lifetime Consulting Physician Address: Address: [address] [place] [address] [address] [facility] [place] [address]- Name: Maynor Lyons RN Position: S RN Member Role: Primary Care Nurse Name: Erik Kim DO Position: [facility] Physician - Primary Care Member Role: PCP Address: Address: [address] [facility] [place] [address]- Name: Dianna Frost RN Position: [facility] RN Member Role: Primary Care Nurse Care Team Related Persons Name: LORENA HARRISON Address: home [address] [place] [address] Name: LAYNE TREADWELL Address: [address] [place] [address]
--- OUTSIDE RECORDS SUMMARY | 2024-04-17 02:36 | XMS_ITS | Continuity of Care Document ---
Author Organization [facility] Syed Gene lt Address [address] [place] [address]- Care Team Providers Care Gear Finisher Name Role Phone Erik Kim DO Primary Care Physician Encounter [facility] Date(s): 03/16/24 - 04/15/24 [facility] Adult [address] [place] [address]- Allergies, Adverse Reactions, Alerts Substance Reaction Severity [...] virus vaccine, inactivated 08/09/17 Avery rded SARS-CoV-2(COVID-19)mRNA-LNP vac([id number]) 08/02/23 Recorded Influenza Virus Vaccine (oldterm) 1 [...] Influenza Virus Vaccine (oldterm) 08/26/11 Recorde d [id number] 12y+ bivalent booster vax 08/06/22 Recorded pneumococcal 13-valent vaccine 6 07/25/22 Recorded pneumococcal 13-valent vaccine 7 12/14/18 Recorded pneumococcal 13-valent vaccine 12/14/18 Recorded pneumococcal 13-valent vaccine 8 06/06/16 Recorded SARS-CoV-2 mRNA (arhwmgj-zbfs-rqwbt) vax 03/13/22 Recorded SARS-CoV-2 mRNA (ntecrke-cktv-brimu) vax 9 08/21/21 Recorded SARS-CoV-2 mRNA (bndroty-tbrh-sfsjf) vax 10 01/13/21 Recorded SARS-CoV-2 (COVID-19) mRNA BNT-162b2 vac 09/03/21 Recorded SARS-CoV-2 (COVID-19) Ad26 vaccine 01/13/21 Record ed zoster vaccine, inactivated 03/13/20 Recorded zoster vaccine, inactivated 12/09/19 Recorded Zoster Vaccine Live 11 12/09/19 Recorded Zoster Vaccine Live 03/13/12 Recorded tetanus/diphtheria/pertussis, acel(Tdap) 10/21/11 Recorded Pneumococcal Vaccine (oldterm) 11/08/06 Given pneumococcal 23-valent vaccine 12 11/08/06 Recorde d 1Result Comment: Unit: Unknown Route: Intramuscular [place] Roofer: Sanofi Pasteur 2Result Comment: Route: Intramuscular [place] Roofer: Sanofi Pasteur 3Result Comment: Unit: Unknown 4Result Comment: Unit: Unknown 5Result Comment: Unit: Unknown 6Result Comment: Unit: Unknown Route: Intramuscular [place] Roofer: Pfizer 7Result Comment: Unit: Unknown Route: Intramuscular [place] Roofer: Wyeth 8Result Comment: Unit: Unknown 9Result Comment: Route: Intramuscular [place] Roofer: Sanofi Pasteur 10Result Comment: Unit: Unknown Route: Intramuscular [place] Roofer: Suleiman 11Result Comment: Route: Intramuscular [place] Roofer: GlaxoSmithKline 12Result Comment: Unit: Unknown Medications acetaminophen 325 mg oral tablet TAKE 2 TABLETS (650 MG)ORALLY EVERY 6 HOURS NEEDED FOR PAIN, MILD (PAIN SCALE 1-3) Start Date: 09/22/23 Status: Ordered atorvastatin 40 mg oral tablet 1 tablet = 40 mg, By Mouth, Daily, # 90 tablet, 3 Refills, Maintenance, 10/27/23 11:06:00 EST, Tablet, [facility]/pharmacy #[id number], Partial fill upon patient [...] Refills, Maintenance, 12/23/23 17:15:00 EST, [facility], 170.18, cm, 12/17/23 10:17:00 EST, Height, 127.2, kg, 10/02/23 3:00:00 EST, Dry Weight Start Date: 12/23/23 Status: Ordered estradiol 0.1 mg/g vaginal cream = 1 Gm, Vaginally, Daily at bedtime, # 30 Gm, 11 Refills, Maintenance, 11/17/23 9:45:00 EST, [facility]/pharmacy #[id number], Partial fill upon patient [...] Replace Required Details, Route to Pharmacy Electronically, [facility]/pharmacy #[id number], Partial fill upon patient reque... Start Date: 10/27/23 Status: Ordered Gemtesa 75 mg oral tablet 1 tablet = 75 mg, By Mouth, Daily, # 30 tablet, 11 Refills, Maintenance, 11/17/23 9:45:00 EST, [facility]/pharmacy #[id number], Partial fill upon patient [...] tablet, 2 Refills, Maintenance, 12/23/23 17:13:00EST, Tablet, [facility]/pharmacy #[id number], Partial fill upon patient request if the prescription is for a schedule II opioid drug., 170.18, cm, 12/17/23 10:17:00... Start Date: 12/23/23 Status: Ordered metoprolol 50 mg oral tablet 50 mg, 1, tablet, By Mouth, 2 times a day, # 180 tablet, Refills 3, Tot. Refills 3, Maintenance, 10/27/23 11:05:00 EST, Route to Pharmacy Electronically, [facility]/pharmacy #[id number], Partial fill upon patientrequest if the prescription is for a schedule II op... Start Date: 10/27/23 Status: Ordered nystatin topical [id number] u/gm powder See Instructions, APPLY TOPICALLY 3 TIMES A DAY TO RASH, # 60 Gm, 1 Refills, Maintenance, 02/02/24 7:47:00 EDT, [facility], 30, APPLY TOPICALLY 3 TIMES A DAY TO RASH, 170, cm, 01/19/24 14:19:00 EDT, Height, 136, kg, 01/17/24 9:30:00 EST, Dry Weight Start Date: 02/02/24 Status: Ordered omeprazole 40 mg oral enteric coated capsule 1 capsule = 40 mg, By Mouth, Daily, # 90 capsule, 3 Refills, Maintenance, 12/23/23 17:13:00 EST, ECCapsule, [facility]/pharmacy #[id number], Partial fill upon patient request [...] pack years: 2; entered on: 8/24/23 Sex Female Patient Care team information Care Team Personnel Name: Armani Reid DO Position: [facility] Renal MD Member Role: Lifetime Consulting Physician Address: Address: [address] [place] [address] [address] [facility] [place] [address]- Name: Maynor Lyons RN Position: [facility] RN Member Role: Primary Care Nurse Name: Erik Kim DO Position: [facility] Physician - Primary Care Member Role: PCP Address: Address: [address] [place] [address]- Name: Dianna Frost RN Position: [facility] RN Member Role: Primary Care Nurse Care Team Related Persons Name: LORENA HARRISON Address: home [address] [place] [address] Name: LAYNE TREADWELL Address: home [address] [place] [address]
--- OUTSIDE RECORDS SUMMARY | 2024-04-17 02:36 | XMS_ITS | Continuity of Care Document ---
Author Organization [facility]ed Gene lt Address [address] [place] [address]- Care Team Providers Care Anime Designer Name Role Phone Erik Kim DO Primary Care Physician [facility]counter [facility] Date(s): 02/26/24 - 03/27/24 [facility] Adult [address] [place] [address]- Allergies, Adverse Reactions, Alerts Substance Reaction Severity [...] virus vaccine, inactivated 08/09/17 Avery rded SARS-CoV-2(COVID-19)mRNA-LNP vac([id number]) 08/02/23 Recorded Influenza Virus Vaccine (oldterm) 1 [...] Influenza Virus Vaccine (oldterm) 08/26/11 Recorde d [id number] 12y+ bivalent booster vax 08/06/22 Recorded pneumococcal 13-valent vaccine 6 07/25/22 Recorded pneumococcal 13-valent vaccine 7 12/14/18 Recorded pneumococcal 13-valent vaccine 12/14/18 Recorded pneumococcal 13-valent vaccine 8 06/06/16 Recorded SARS-CoV-2 mRNA (wbjzpnz-ywyb-dujor) vax 03/13/22 Recorded SARS-CoV-2 mRNA (xidmpvo-edjf-jopvv) vax 9 08/21/21 Recorded SARS-CoV-2 mRNA (ajambrf-oprr-qzhkg) vax 10 01/13/21 Recorded SARS-CoV-2 (COVID-19) mRNA BNT-162b2 vac 09/03/21 Recorded SARS-CoV-2 (COVID-19) Ad26 vaccine 01/13/21 Record ed zoster vaccine, inactivated 03/13/20 Recorded zoster vaccine, inactivated 12/09/19 Recorded Zoster Vaccine Live 11 12/09/19 Recorded Zoster Vaccine Live 03/13/12 Recorded tetanus/diphtheria/pertussis, acel(Tdap) 10/21/11 Recorded Pneumococcal Vaccine (oldterm) 11/08/06 Given pneumococcal 23-valent vaccine 12 11/08/06 Recorde d 1Result Comment: Unit: Unknown Route: Intramuscular Historical Site Guide: Sanofi Pasteur 2Result Comment: Route: Intramuscular Historical Site Guide: Sanofi Pasteur 3Result Comment: Unit: Unknown 4Result Comment: Unit: Unknown 5Result Comment: Unit: Unknown 6Result Comment: Unit: Unknown Route: Intramuscular Historical Site Guide: Pfizer 7Result Comment: Unit: Unknown Route: Intramuscular Historical Site Guide: Wyeth 8Result Comment: Unit: Unknown 9Result Comment: Route: Intramuscular Historical Site Guide: Sanofi Pasteur 10Result Comment: Unit: Unknown Route: Intramuscular Historical Site Guide: Suleiman 11Result Comment: Route: Intramuscular Historical Site Guide: GlaxoSmithKline 12Result Comment: Unit: Unknown Medications acetaminophen 325 mg oral tablet TAKE 2 TABLETS (650 MG)ORALLY EVERY 6 HOURS NEEDED FOR PAIN, MILD (PAIN SCALE 1-3) Start Date: 09/22/23 Status: Ordered atorvastatin 40 mg oral tablet 1 tablet = 40 mg, By Mouth, Daily, # 90 tablet, 3 Refills, Maintenance, 10/27/23 11:06:00 EST, Tablet, [facility]/pharmacy #[id number], Partial fill upon patient request if [...] tablet, 0 Refills, Maintenance, 12/23/23 17:15:00 EST, [facility] STORE [id number], 170.18, cm, 12/17/23 10:17:00 EST, Height, 127.2, kg, 10/02/23 3:00:00 EST, Dry Weight Start Date: 12/23/23 Status: Ordered estradiol 0.1 mg/g vaginal cream = 1 Gm, Vaginally, Daily at bedtime, # 30 Gm, 11 Refills, Maintenance, 11/17/23 9:45:00 EST, [facility]/pharmacy #[id number], Partial fill upon patient request if [...] Replace Required Details, Route to Pharmacy Electronically, [facility]/pharmacy #[id number], Partial fill upon patient reque... Start Date: 10/27/23 Status: Ordered Gemtesa 75 mg oral tablet 1 tablet = 75 mg, By Mouth, Daily, # 30 tablet, 11 Refills, Maintenance, 11/17/23 9:45:00 EST, [facility]/pharmacy #[id number], Partial fill upon patient request if [...] 04/01/24 21:50:00 EDT, 02/01/24 21:50:00 EDT, Tablet, [facility]/pharmacy #[id number], Part... Start Date: 02/01/24 Stop Date: 04/01/24 Status: Ordered metFORMIN 500 mg oral tablet 1 tablet = 500 mg, By Mouth, 2 times a day, # 180 tablet, 2 Refills, Maintenance, 12/23/23 17:13:00EST, Tablet, [facility]/pharmacy #[id number], Partial fill upon patient request if the prescription is for a schedule II opioid drug., 170.18, cm, 12/17/23 10:17:00... Start Date: 12/23/23 Status: Ordered metoprolol 50 mg oral tablet 50 mg, 1, tablet, By Mouth, 2 times a day, # 180 tablet, Refills 3, Tot. Refills 3, Maintenance, 10/27/23 11:05:00 EST, Route to Pharmacy Electronically, [facility]/pharmacy #[id number], Partial fill upon patientrequest if the prescription is for a schedule II op... Start Date: 10/27/23 Status: Ordered nystatin topical 250758 u/gm powder See Instructions, APPLY TOPICALLY 3 TIMES A DAY TO RASH, # 60 Gm, 1 Refills, Maintenance, 02/02/24 7:47:00 EDT, [facility], 30, APPLY TOPICALLY 3 TIMES A DAY TO RASH, 170, cm, 01/19/24 14:19:00 EDT, Height, 136, kg, 01/17/24 9:30:00 EST, Dry Weight Start Date: 02/02/24 Status: Ordered omeprazole 40 mg oral enteric coated capsule 1 capsule = 40 mg, By Mouth, Daily, # 90 capsule, 3 Refills, Maintenance, 12/23/23 17:13:00 EST, ECCapsule, [facility]/pharmacy #[id number], Partial fill upon patient request if the [...] Member Role: Lifetime Consulting Physician Address: Address: [address] [place] [address] [address] [facility] [place] [address]- Name: Maynor Lyons RN Position: S RN Member Role: Primary Care Nurse Name: Erik Kim DO Position: [facility] Physician - Primary Care Member Role: PCP Address: Address: [address] [facility] [place] [address]- Name: Dianna Frost RN Position: [facility] RN Member Role: Primary Care Nurse Care Team Related Persons Name: LORENA HARRISON Address: home [address] [place] [address] Name: LAYNE TREADWELL Address: home [address] [place] [address]
--- NOTE | 2024-04-17 02:37 | PC.NURSE ---
Pt refusing to answer questions at this time. When asked by this RN if pt had a plan pt stated Mind your business Plan of care ongoing.
--- OUTSIDE RECORDS SUMMARY | 2024-04-17 02:37 | XMS_ITS | Continuity of Care Document ---
Author Organization [facility] Address [address] [place] [address]- Care Team Providers Care Cloud Infrastructure Architect Name Role Phone Erik Kim DO Primary Care Physician [facility]counter [facility] Date(s): 02/25/24 - 03/26/24 [facility] Adult [address] [place] [address]- Allergies, Adverse Reactions, Alerts Substance Reaction Severity [...] virus vaccine, inactivated 08/09/17 Avery rded SARS-CoV-2(COVID-19)mRNA-LNP vac([id number]) 08/02/23 Recorded Influenza Virus Vaccine (oldterm) 1 [...] Influenza Virus Vaccine (oldterm) 08/26/11 Recorde d [id number] 12y+ bivalent booster vax 08/06/22 Recorded pneumococcal 13-valent vaccine 6 07/25/22 Recorded pneumococcal 13-valent vaccine 7 12/14/18 Recorded pneumococcal 13-valent vaccine 12/14/18 Recorded pneumococcal 13-valent vaccine 8 06/06/16 Recorded SARS-CoV-2 mRNA (mbzhulf-trin-hitzl) vax 03/13/22 Recorded SARS-CoV-2 mRNA (yzinwyy-iqff-caeee) vax 9 08/21/21 Recorded SARS-CoV-2 mRNA (yipnslk-ftas-fhfog) vax 10 01/13/21 Recorded SARS-CoV-2 (COVID-19) mRNA BNT-162b2 vac 09/03/21 Recorded SARS-CoV-2 (COVID-19) Ad26 vaccine 01/13/21 Record ed zoster vaccine, inactivated 03/13/20 Recorded zoster vaccine, inactivated 12/09/19 Recorded Zoster Vaccine Live 11 12/09/19 Recorded Zoster Vaccine Live 03/13/12 Recorded tetanus/diphtheria/pertussis, acel(Tdap) 10/21/11 Recorded Pneumococcal Vaccine (oldterm) 11/08/06 Given pneumococcal 23-valent vaccine 12 11/08/06 Recorde d 1Result Comment: Unit: Unknown Route: Intramuscular Powder Coat Painter: Sanofi Pasteur 2Result Comment: Route: Intramuscular Powder Coat Painter: Sanofi Pasteur 3Result Comment: Unit: Unknown 4Result Comment: Unit: Unknown 5Result Comment: Unit: Unknown 6Result Comment: Unit: Unknown Route: Intramuscular Powder Coat Painter: Pfizer 7Result Comment: Unit: Unknown Route: Intramuscular Powder Coat Painter: Wyeth 8Result Comment: Unit: Unknown 9Result Comment: Route: Intramuscular Powder Coat Painter: Sanofi Pasteur 10Result Comment: Unit: Unknown Route: Intramuscular Powder Coat Painter: Suleiman 11Result Comment: Route: Intramuscular Powder Coat Painter: GlaxoSmithKline 12Result Comment: Unit: Unknown Medications [...] Refills, Maintenance, 12/23/23 17:15:00 EST, [facility], 170.18, cm, 12/17/23 10:17:00 EST, Height, 127.2, [...] 04/01/24 21:50:00 EDT, 02/01/24 21:50:00 EDT, Tablet, [facility]/pharmacy #[id number], Part... Start Date: 02/01/24 Stop Date: 04/01/24 Status: Ordered metFORMIN 500 mg oral tablet 1 tablet = 500 mg, By Mouth, 2 times a day, # 180 tablet, 2 Refills, Maintenance, 12/23/23 17:13:00EST, Tablet, [facility]/pharmacy #[id number], Partial fill upon patient request if the [...] Start Date: 10/27/23 Status: Ordered nystatin topical 450945 u/gm powder See Instructions, APPLY TOPICALLY 3 TIMES A DAY TO RASH, # 60 Gm, 1 Refills, Maintenance, 02/02/24 7:47:00 EDT, [facility], 30, APPLY TOPICALLY 3 TIMES A DAY TO RASH, 170, cm, 01/19/24 14:19:00 EDT, Height, 136, kg, 01/17/24 9:30:00 EST, Dry Weight Start Date: 02/02/24 Status: Ordered omeprazole 40 mg oral enteric coated capsule 1 capsule = 40 mg, By Mouth, Daily, # 90 capsule, 3 Refills, Maintenance, 12/23/23 17:13:00 EST, ECCapsule, [facility]/pharmacy #[id number], Partial fill upon patient request if the [...] Personnel Name: Armani Reid DO Position: [facility] Renal MD Member Role: Lifetime Consulting Physician Address: Address: [address] [place] [address] [address] [facility] [place] [address]- Name: Maynor Lyons RN Position: S RN Member Role: Primary Care Nurse Name: Erik Kim DO Position: [facility] Physician - Primary Care Member Role: PCP Address: Address: [address] [facility] [place] [address]- Name: Dianna Frost RN Position: [facility] RN Member Role: Primary Care Nurse Care Team Related Persons Name: LORENA HARRISON Address: [address] [place] [address] Name: LAYNE TREADWELL Address: home [address] [place] [address]
--- OUTSIDE RECORDS SUMMARY | 2024-04-17 02:37 | XMS_ITS | Continuity of Care Document ---
Author Organization [facility] lt Address [address] [place] [address]- Care Team Providers Care Lining Closer Name Role Phone Erik Kim DO Primary Care Physician Encounter [facility] Date(s): 03/17/24 - 04/16/24 [facility] Adult [address] [place] [address]- Encounter Diagnosis Suicide attempt(Discharge Diagnosis) - 09/16/23 Toxic metabolic encephalopathy(Discharge Diagnosis) - 09/16/23 Ying's cyst of knee(Discharge Diagnosis) - 03/21/24 Attending Physician: Amna Darling Admitting Physician: AdmAmna [...] virus vaccine, inactivated 08/09/17 Avery rded SARS-CoV-2(COVID-19)mRNA-LNP vac([id number]) 08/02/23 Recorded Influenza Virus Vaccine (oldterm) 1 [...] Influenza Virus Vaccine (oldterm) 08/26/11 Recorde d [id number] 12y+ bivalent booster vax 08/06/22 Recorded pneumococcal 13-valent vaccine 6 07/25/22 Recorded pneumococcal 13-valent vaccine 7 12/14/18 Recorded pneumococcal 13-valent vaccine 12/14/18 Recorded pneumococcal 13-valent vaccine 8 06/06/16 Recorded SARS-CoV-2 mRNA (aoqvtes-udev-jipif) vax 03/13/22 Recorded SARS-CoV-2 mRNA (qgmhwdv-nmdq-geqqq) vax 9 08/21/21 Recorded SARS-CoV-2 mRNA (pphsoxu-hpko-aozaf) vax 10 01/13/21 Recorded SARS-CoV-2 (COVID-19) mRNA BNT-162b2 vac 09/03/21 Recorded SARS-CoV-2 (COVID-19) Ad26 vaccine 01/13/21 Record ed zoster vaccine, inactivated 03/13/20 Recorded zoster vaccine, inactivated 12/09/19 Recorded Zoster Vaccine Live 11 12/09/19 Recorded Zoster Vaccine Live 03/13/12 Recorded tetanus/diphtheria/pertussis, acel(Tdap) 10/21/11 Recorded Pneumococcal Vaccine (oldterm) 11/08/06 Given pneumococcal 23-valent vaccine 12 11/08/06 Recorde d 1Result Comment: Unit: Unknown Route: Intramuscular Strickler Attendant: Sanofi Pasteur 2Result Comment: Route: Intramuscular Strickler Attendant: Sanofi Pasteur 3Result Comment: Unit: Unknown 4Result Comment: Unit: Unknown 5Result Comment: Unit: Unknown 6Result Comment: Unit: Unknown Route: Intramuscular Strickler Attendant: Pfizer 7Result Comment: Unit: Unknown Route: Intramuscular Strickler Attendant: Wyeth 8Result Comment: Unit: Unknown 9Result Comment: Route: Intramuscular Strickler Attendant: Sanofi Pasteur 10Result Comment: Unit: Unknown Route: Intramuscular Strickler Attendant: [email or web address] 11Result Comment: Route: Intramuscular Strickler Attendant: [employer] 12Result Comment: Unit: Unknown Medications acetaminophen 325 mg oral tablet TAKE 2 TABLETS (650 MG)ORALLY EVERY 6 HOURS NEEDED FOR PAIN, MILD (PAIN SCALE 1-3) Start Date: 09/22/23 Status: Ordered atorvastatin 40 mg oral tablet 1 tablet = 40 mg, By Mouth, Daily, # 90 tablet, 3 Refills, Maintenance, 10/27/23 11:06:00 EST, Tablet, [facility]/pharmacy #[id number], Partial fill upon patient request [...] Refills, Maintenance, 12/23/23 17:15:00 EST, [facility], 170.18, cm, 12/17/23 10:17:00 EST, Height, 127.2, [...] Required Details, Route to Pharmacy Electronically, [facility]/pharmacy #[id number], Partial fill upon patient reque... Start Date: 10/27/23 Status: Ordered Gemtesa 75 mg oral tablet 1 tablet = 75 mg, By Mouth, Daily, # 30 tablet, 11 Refills, Maintenance, 11/17/23 9:45:00 EST, [facility]/pharmacy #[id number], Partial fill upon patient request [...] 2 Refills, Maintenance, 12/23/23 17:13:00EST, Tablet, [facility]/pharmacy #[id number], Partial fill upon patient request if the prescription is for a schedule II opioid drug., 170.18, cm, 12/17/23 10:17:00... Start Date: 12/23/23 Status: Ordered metoprolol 50 mg oral tablet 50 mg, 1, tablet, By Mouth, 2 times a day, # 180 tablet, Refills 3, Tot. Refills 3, Maintenance, 10/27/23 11:05:00 EST, Route to Pharmacy Electronically, [facility]/pharmacy #[id number], Partial fill upon patientrequest if the prescription is for a schedule II op... Start Date: 10/27/23 Status: Ordered nystatin topical [id number] u/gm powder See Instructions, APPLY TOPICALLY 3 TIMES A DAY TO RASH, # 60 Gm, 1 Refills, Maintenance, 02/02/24 7:47:00 EDT, [facility], 30, APPLY TOPICALLY 3 TIMES A DAY TO RASH, 170, cm, 01/19/24 14:19:00 EDT, Height, 136, kg, 01/17/24 9:30:00 EST, Dry Weight Start Date: 02/02/24 Status: Ordered omeprazole 40 mg oral enteric coated capsule 1 capsule = 40 mg, By Mouth, Daily, # 90 capsule, 3 Refills, Maintenance, 12/23/23 17:13:00 EST, ECCapsule, [facility]/pharmacy #[id number], Partial fill upon patient request if the [...] diabetes mellitus with peripheral neuropathy Confirmed Active 110/ intentional overdose on Klonopin and tramadol 2Secondary to tramadol and Klonopin overdose Diagnosis Diagnosis Type Effective Dates Health Status Clinical Service Informant Suicide attempt Discharge Diagnosis 09/16/23 Toxic metabolic encephalopathy Discharge Diagnosis 09/16/23 Ying's cyst of knee Discharge Diagnosis 03/21/24 Procedures Procedure Date Related Diagnosis Body Site Status Open reduction of fracture o f ankle with internal fixation Completed Social History Social History Type Response Smoking Status Former smoker, quit more than 30 days ago; Other: quit 1973 6 yrs toal 11/13 6; Number of years: 6; Total pack years: 2; entered on: 07/03/23 Sex Female Laboratory * Event Display: Non Lab Results Authored Date: Radiology * Event Display: X-Ray Ankle/Foot, Non- Authored Date: * Event Display: IR Special Procedures, Non- Authored Date: * Event Display: IR Special Procedures, Non- Authored Date: * Event Display: CT Scan Neck, Non- Authored Date: Patient Care team information Care Team Personnel Name: Armani Reid DO Position: [facility] Renal MD Member Role: Lifetime Consulting Physician Address: Address: [address] [place] [address] [address] [facility] [place] [address]- Name: Maynor Lyons RN Position: [facility] RN Member Role: Primary Care Nurse Name: Erik Kim DO Position: [facility] Physician - Primary Care Member Role: PCP Address: Address: [address] [place] [address]- Name: Dianna Frost RN Position: [facility] RN Member Role: Primary Care Nurse Care Team Related Persons Name: LORENA HARRISON Address: [address] [place] [address] Name: LAYNE TREADWELL Address: [address] [place] [address]
--- OUTSIDE RECORDS SUMMARY | 2024-04-17 02:37 | XMS_ITS | Continuity of Care Document ---
Author Organization [facility] Address [address] [place] [address]- Care Team Providers Care Global Clinical Leader Name Role Phone Erik Kim DO Primary Care Physician [phone] Encounter 02/24/24 - 04/07/24 [facility] [address], [address] [place] [address]- Attending Physician: Erik Kim DO Admitting Physician: [...] virus vaccine, inactivated 08/09/17 Avery rded SARS-CoV-2(COVID-19)mRNA-LNP vac([id number]) 08/02/23 Recorded Influenza Virus Vaccine (oldterm) 1 [...] Influenza Virus Vaccine (oldterm) 08/26/11 Recorde d [id number] 12y+ bivalent booster vax 08/06/22 Recorded pneumococcal 13-valent vaccine 6 07/25/22 Recorded pneumococcal 13-valent vaccine 7 12/14/18 Recorded pneumococcal 13-valent vaccine 12/14/18 Recorded pneumococcal 13-valent vaccine 8 06/06/16 Recorded SARS-CoV-2 mRNA (hxcmupw-ghaa-gyfap) vax 03/13/22 Recorded SARS-CoV-2 mRNA (orcynpy-cttk-xstmn) vax 9 08/21/21 Recorded SARS-CoV-2 mRNA (jyaknzw-zgrq-xkzag) vax 10 01/13/21 Recorded SARS-CoV-2 (COVID-19) mRNA BNT-162b2 vac 09/03/21 Recorded SARS-CoV-2 (COVID-19) Ad26 vaccine 01/13/21 Record ed zoster vaccine, inactivated 03/13/20 Recorded zoster vaccine, inactivated 12/09/19 Recorded Zoster Vaccine Live 11 12/09/19 Recorded Zoster Vaccine Live 03/13/12 Recorded tetanus/diphtheria/pertussis, acel(Tdap) 10/21/11 Recorded Pneumococcal Vaccine (oldterm) 11/08/06 Given pneumococcal 23-valent vaccine 12 11/08/06 Recorde d 1Result Comment: Unit: Unknown Route: Intramuscular Tow Feeder: Sanofi Pasteur 2Result Comment: Route: Intramuscular Tow Feeder: Sanofi Pasteur 3Result Comment: Unit: Unknown 4Result Comment: Unit: Unknown 5Result Comment: Unit: Unknown 6Result Comment: Unit: Unknown Route: Intramuscular Tow Feeder: Pfizer 7Result Comment: Unit: Unknown Route: Intramuscular Tow Feeder: Wyeth 8Result Comment: Unit: Unknown 9Result Comment: Route: Intramuscular Tow Feeder: Sanofi Pasteur 10Result Comment: Unit: Unknown Route: Intramuscular Tow Feeder: Suleiman 11Result Comment: Route: Intramuscular Tow Feeder: GlaxAvidRetailithKline 12Result Comment: Unit: Unknown Medications acetaminophen 325 mg oral tablet TAKE 2 TABLETS (650 MG)ORALLY EVERY 6 HOURS NEEDED FOR PAIN, MILD (PAIN SCALE 1-3) Start Date: 09/22/23 Status: Ordered atorvastatin 40 mg oral tablet 1 tablet = 40 mg, By Mouth, Daily, # 90 tablet, 3 Refills, Maintenance, 10/27/23 11:06:00 EST, Tablet, [facility]/pharmacy #[id number], Partial fill upon [...] Refills, Maintenance, 12/23/23 17:15:00 EST, [facility], 170.18, cm, 12/17/23 10:17:00 EST, Height, 127.2, kg, 10/02/23 3:00:00 EST, Dry Weight Start Date: 12/23/23 Status: Ordered estradiol 0.1 mg/g vaginal cream = 1 Gm, Vaginally, Daily at bedtime, # 30 Gm, 11 Refills, Maintenance, 11/17/23 9:45:00 EST, [facility]/pharmacy #[id number], Partial fill upon [...] Replace Required Details, Route to Pharmacy Electronically, [facility]/pharmacy #[id number], Partial fill upon patient reque... Start Date: 10/27/23 Status: Ordered Gemtesa 75 mg oral tablet 1 tablet = 75 mg, By Mouth, Daily, # 30 tablet, 11 Refills, Maintenance, 11/17/23 9:45:00 EST, [facility]/pharmacy #[id number], Partial fill upon [...] tablet, 2 Refills, Maintenance, 12/23/23 17:13:00EST, Tablet, [facility]/pharmacy #[id number], Partial fill upon patient request if the prescription is for a schedule II opioid drug., 170.18, cm, 12/17/23 10:17:00... Start Date: 12/23/23 Status: Ordered metoprolol 50 mg oral tablet 50 mg, 1, tablet, By Mouth, 2 times a day, # 180 tablet, Refills 3, Tot. Refills 3, Maintenance, 10/27/23 11:05:00 EST, Route to Pharmacy Electronically, [facility]/pharmacy #[id number], Partial fill upon patientrequest if the prescription is for a schedule II op... Start Date: 10/27/23 Status: Ordered nystatin topical 669251 u/gm powder See Instructions, APPLY TOPICALLY 3 TIMES A DAY TO RASH, # 60 Gm, 1 Refills, Maintenance, 02/02/24 7:47:00 EDT, [facility], 30, APPLY TOPICALLY 3 TIMES A DAY TO RASH, 170, cm, 01/19/24 14:19:00 EDT, Height, 136, kg, 01/17/24 9:30:00 EST, Dry Weight Start Date: 02/02/24 Status: Ordered omeprazole 40 mg oral enteric coated capsule 1 capsule = 40 mg, By Mouth, Daily, # 90 capsule, 3 Refills, Maintenance, 12/23/23 17:13:00 EST, ECCapsule, [facility]/pharmacy #[id number], Partial fill upon patient request if the [...] Member Role: Lifetime Consulting Physician Address: Address: [address] [place] [address] [address] [facility] [place] [address]- Name: Maynor Lyons RN Position: [facility] RN Member Role: Primary Care Nurse Name: Erik Kim DO Position: [facility] Physician - Primary Care Member Role: PCP Address: Address: [address] [place] [address]- Name: Dianna Frost RN Position: [facility] RN Member Role: Primary Care Nurse Care Team Related Persons Name: LORENA HARRISON Address: [address] [place] [address] Name: LAYNE TREADWELL Address: [address] [place] [address]
--- OUTSIDE RECORDS SUMMARY | 2024-04-17 02:37 | XMS_ITS | Continuity of Care Document ---
Author Organization [facility] Syed Gene lt Address [address] [place] [address]- Care Team Providers Care Housing Officer Name Role Phone Erik Kim DO Primary Care Physician [phone] [facility]counter [facility] Date[facility]s): 02/26/24 - 03/27/24 [facility] Adult [address] [place] [address]- Allergies, Adverse Reactions, Alerts Substance Reaction Severity [...] virus vaccine, inactivated 08/09/17 Avery rded SARS-CoV-2(COVID-19)mRNA-LNP vac([id number]) 08/02/23 Recorded Influenza Virus Vaccine (oldterm) 1 [...] Influenza Virus Vaccine (oldterm) 08/26/11 Recorde d [id number] 12y+ bivalent booster vax 08/06/22 Recorded pneumococcal 13-valent vaccine 6 07/25/22 Recorded pneumococcal 13-valent vaccine 7 12/14/18 Recorded pneumococcal 13-valent vaccine 12/14/18 Recorded pneumococcal 13-valent vaccine 8 06/06/16 Recorded SARS-CoV-2 mRNA ([id number]-kixa-yvdhw) vax 03/13/22 Recorded SARS-CoV-2 mRNA (wlatnzl-qwda-cskfo) vax 9 08/21/21 Recorded SARS-CoV-2 mRNA (ykizimc-xnjk-xfdfb) vax 10 01/13/21 Recorded SARS-CoV-2 (COVID-19) mRNA BNT-162b2 vac 09/03/21 Recorded SARS-CoV-2 (COVID-19) Ad26 vaccine 01/13/21 Record ed zoster vaccine, inactivated 03/13/20 Recorded zoster vaccine, inactivated 12/09/19 Recorded Zoster Vaccine Live 11 12/09/19 Recorded Zoster Vaccine Live 03/13/12 Recorded tetanus/diphtheria/pertussis, acel(Tdap) 10/21/11 Recorded Pneumococcal Vaccine (oldterm) 11/08/06 Given pneumococcal 23-valent vaccine 12 11/08/06 Recorde d 1Result Comment: Unit: Unknown Route: Intramuscular Multifocal Button Inspector: Sanofi Pasteur 2Result Comment: Route: Intramuscular Multifocal Button Inspector: Sanofi Pasteur 3Result Comment: Unit: Unknown 4Result Comment: Unit: Unknown 5Result Comment: Unit: Unknown 6Result Comment: Unit: Unknown Route: Intramuscular Multifocal Button Inspector: Pfizer 7Result Comment: Unit: Unknown Route: Intramuscular Multifocal Button Inspector: Wyeth 8Result Comment: Unit: Unknown 9Result Comment: Route: Intramuscular Multifocal Button Inspector: Sanofi Pasteur 10Result Comment: Unit: Unknown Route: Intramuscular Multifocal Button Inspector: Suleiman 11Result Comment: Route: Intramuscular Multifocal Button Inspector: GlaxoSmithKline 12Result Comment: Unit: Unknown Medications acetaminophen 325 mg oral tablet TAKE 2 TABLETS (650 MG)ORALLY EVERY 6 HOURS NEEDED FOR PAIN, MILD (PAIN SCALE 1-3) Start Date: 09/22/23 Status: Ordered atorvastatin 40 mg oral tablet 1 tablet = 40 mg, By Mouth, Daily, # 90 tablet, 3 Refills, Maintenance, 10/27/23 11:06:00 EST, Tablet, [facility]/pharmacy #[id number], Partial fill upon patient request [...] Refills, Maintenance, 12/23/23 17:15:00 EST, [id number], 170.18, cm, 12/17/23 10:17:00 EST, Height, 127.2, kg, 10/02/23 3:00:00 EST, Dry Weight Start Date: 12/23/23 Status: Ordered estradiol 0.1 mg/g vaginal cream = 1 Gm, Vaginally, Daily at bedtime, # 30 Gm, 11 Refills, Maintenance, 11/17/23 9:45:00 EST, [facility]/pharmacy #[id number], Partial fill upon patient request [...] Details, Route to Pharmacy Electronically, [facility]/pharmacy #[id number], Partial fill upon patient reque... Start Date: 10/27/23 Status: Ordered Gemtesa 75 mg oral tablet 1 tablet = 75 mg, By Mouth, Daily, # 30 tablet, 11 Refills, Maintenance, 11/17/23 9:45:00 EST, [facility]/pharmacy #[id number], Partial fill upon patient request [...] EDT, 02/01/24 21:50:00 EDT, Tablet, [facility]/pharmacy #[id number], Part... Start Date: 02/01/24 Stop Date: 04/01/24 Status: Ordered metFORMIN 500 mg oral tablet 1 tablet = 500 mg, By Mouth, 2 times a day, # 180 tablet, 2 Refills, Maintenance, 12/23/23 17:13:00EST, Tablet, [facility]/pharmacy #[id number], Partial fill upon patient request if the prescription is for a schedule II opioid drug., 170.18, cm, 12/17/23 10:17:00... Start Date: 12/23/23 Status: Ordered metoprolol 50 mg oral tablet 50 mg, 1, tablet, By Mouth, 2 times a day, # 180 tablet, Refills 3, Tot. Refills 3, Maintenance, 10/27/23 11:05:00 EST, Route to Pharmacy Electronically, [facility]/pharmacy #[id number], Partial fill upon patientrequest if the prescription is for a schedule II op... Start Date: 10/27/23 Status: Ordered nystatin topical 437509 u/gm powder See Instructions, APPLY TOPICALLY 3 TIMES A DAY TO RASH, # 60 Gm, 1 Refills, Maintenance, 02/02/24 7:47:00 EDT, [id number], 30, APPLY TOPICALLY 3 TIMES A DAY TO RASH, 170, cm, 01/19/24 14:19:00 EDT, Height, 136, kg, 01/17/24 9:30:00 EST, Dry Weight Start Date: 02/02/24 Status: Ordered omeprazole 40 mg oral enteric coated capsule 1 capsule = 40 mg, By Mouth, Daily, # 90 capsule, 3 Refills, Maintenance, 12/23/23 17:13:00 EST, ECCapsule, [facility]/pharmacy #[id number], Partial fill upon patient request if the [...] Team Personnel Name: Armani Reid DO Position: [facility] Renal MD Member Role: Lifetime Consulting Physician Address: Address: [address] [place] [address] [address] [facility] [place] [address]- Name: Maynor Lyons RN Position: S RN Member Role: Primary Care Nurse Name: Erik Kim DO Position: [facility] Physician - Primary Care Member Role: PCP Address: Address: [address] [facility] [place] [address]- Name: Dianna Frost RN Position: [facility] RN Member Role: Primary Care Nurse Care Team Related Persons Name: LORENA HARRISON Address: home [address] [place] [address] Name: LAYNE TREADWELL Address: home [address] [place] [address]
--- OUTSIDE RECORDS SUMMARY | 2024-04-17 02:38 | XMS_ITS | Continuity of Care Document ---
Author Organization [facility] Syed Gene lt Address [address] [place] [address]- Care Team Providers Care Miner Assistant Name Role Phone Erik Kim DO Primary Care Physician [facility] Date[facility]s): 02/25/24 - 03/26/24 [facility] [place] Adult [address] [place] [address]- Allergies, Adverse Reactions, Alerts Substance Reaction Severity [...] virus vaccine, inactivated 08/09/17 Avery rded SARS-CoV-2(COVID-19)mRNA-LNP vac([id number]) 08/02/23 Recorded Influenza Virus Vaccine (oldterm) 1 [...] Influenza Virus Vaccine (oldterm) 08/26/11 Recorde d [id number] 12y+ bivalent booster vax 08/06/22 Recorded pneumococcal 13-valent vaccine 6 07/25/22 Recorded pneumococcal 13-valent vaccine 7 12/14/18 Recorded pneumococcal 13-valent vaccine 12/14/18 Recorded pneumococcal 13-valent vaccine 8 06/06/16 Recorded SARS-CoV-2 mRNA (owckklp-ywyb-olzpj) vax 03/13/22 Recorded SARS-CoV-2 mRNA (lytsgjd-woxa-hoypo) vax 9 08/21/21 Recorded SARS-CoV-2 mRNA (wzaorll-mcme-dmwni) vax 10 01/13/21 Recorded SARS-CoV-2 (COVID-19) mRNA BNT-162b2 vac 09/03/21 Recorded SARS-CoV-2 (COVID-19) Ad26 vaccine 01/13/21 Record ed zoster vaccine, inactivated 03/13/20 Recorded zoster vaccine, inactivated 12/09/19 Recorded Zoster Vaccine Live 11 12/09/19 Recorded Zoster Vaccine Live 03/13/12 Recorded tetanus/diphtheria/pertussis, acel(Tdap) 10/21/11 Recorded Pneumococcal Vaccine (oldterm) 11/08/06 Given pneumococcal 23-valent vaccine 12 11/08/06 Recorde d 1Result Comment: Unit: Unknown Route: Intramuscular Tools And Parts Attendant: Sanofi Pasteur 2Result Comment: Route: Intramuscular Tools And Parts Attendant: Sanofi Pasteur 3Result Comment: Unit: Unknown 4Result Comment: Unit: Unknown 5Result Comment: Unit: Unknown 6Result Comment: Unit: Unknown Route: Intramuscular Tools And Parts Attendant: Pfizer 7Result Comment: Unit: Unknown Route: Intramuscular Tools And Parts Attendant: Wyeth 8Result Comment: Unit: Unknown 9Result Comment: Route: Intramuscular Tools And Parts Attendant: Sanofi Pasteur 10Result Comment: Unit: Unknown Route: Intramuscular Tools And Parts Attendant: Suleiman 11Result Comment: Route: Intramuscular Tools And Parts Attendant: GlaxoSmithKline 12Result Comment: Unit: Unknown Medications acetaminophen 325 mg oral tablet TAKE 2 TABLETS (650 MG)ORALLY EVERY 6 HOURS NEEDED FOR PAIN, MILD (PAIN SCALE 1-3) Start Date: 09/22/23 Status: Ordered atorvastatin 40 mg oral tablet 1 tablet = 40 mg, By Mouth, Daily, # 90 tablet, 3 Refills, Maintenance, 10/27/23 11:06:00 EST, Tablet, [facility]/pharmacy #[id number], Partial fill upon patient [...] tablet, 0 Refills, Maintenance, 12/23/23 17:15:00 EST, [id number], 170.18, cm, 12/17/23 10:17:00 EST, Height, 127.2, kg, 10/02/23 3:00:00 EST, Dry Weight Start Date: 12/23/23 Status: Ordered estradiol 0.1 mg/g vaginal cream = 1 Gm, Vaginally, Daily at bedtime, # 30 Gm, 11 Refills, Maintenance, 11/17/23 9:45:00 EST, [facility]/pharmacy #[id number], Partial fill upon patient [...] Route to Pharmacy Electronically, [facility]/pharmacy #[id number], Partial fill upon patient reque... Start Date: 10/27/23 Status: Ordered Gemtesa 75 mg oral tablet 1 tablet = 75 mg, By Mouth, Daily, # 30 tablet, 11 Refills, Maintenance, 11/17/23 9:45:00 EST, [facility]/pharmacy #[id number], Partial fill upon patient [...] EDT, 02/01/24 21:50:00 EDT, Tablet, [facility]/pharmacy #[id number], Part... Start Date: 02/01/24 Stop Date: 04/01/24 Status: Ordered metFORMIN 500 mg oral tablet 1 tablet = 500 mg, By Mouth, 2 times a day, # 180 tablet, 2 Refills, Maintenance, 12/23/23 17:13:00EST, Tablet, [facility]/pharmacy #[id number], Partial fill upon patient request if the prescription is for a schedule II opioid drug., 170.18, cm, 12/17/23 10:17:00... Start Date: 12/23/23 Status: Ordered metoprolol 50 mg oral tablet 50 mg, 1, tablet, By Mouth, 2 times a day, # 180 tablet, Refills 3, Tot. Refills 3, Maintenance, 10/27/23 11:05:00 EST, Route to Pharmacy Electronically, [facility]/pharmacy #[id number], Partial fill upon patientrequest if the prescription is for a schedule II op... Start Date: 10/27/23 Status: Ordered nystatin topical 666354 u/gm powder See Instructions, APPLY TOPICALLY 3 TIMES A DAY TO RASH, # 60 Gm, 1 Refills, Maintenance, 02/02/24 7:47:00 EDT, [facility], 30, APPLY TOPICALLY 3 TIMES A DAY TO RASH, 170, cm, 01/19/24 14:19:00 EDT, Height, 136, kg, 01/17/24 9:30:00 EST, Dry Weight Start Date: 02/02/24 Status: Ordered omeprazole 40 mg oral enteric coated capsule 1 capsule = 40 mg, By Mouth, Daily, # 90 capsule, 3 Refills, Maintenance, 12/23/23 17:13:00 EST, ECCapsule, [facility]/pharmacy #[id number], Partial fill upon patient request if the [...] Member Role: Lifetime Consulting Physician Address: Address: [address] [place] [address] [address] [facility] [place] [address]- Name: Maynor Lyons RN Position: S RN Member Role: Primary Care Nurse Name: Erik Kim DO Position: [facility] Physician - Primary Care Member Role: PCP Address: Address: [address] [facility] [place] [address]- Name: Dianna Frost RN Position: [facility] RN Member Role: Primary Care Nurse Care Team Related Persons Name: LORENA HARRISON Address: home [address] [place] [address] Name: LAYNE TREADWELL Address: [address] [place] [address]
--- NOTE | 2024-04-17 02:54 | PC.NURSE ---
Pt changed into [facility] gown. Pt placed on purewick. Plan of care ongoing.
[2024-04-17 04:00] LABS: MANUAL DIFF FLAG NO
[2024-04-17 04:01] LABS: Basophils Absolute Auto 0.1 X10*3/uL (0.0-0.2); Basophils Percent Auto 0.9 % (0-2); Eosinophils Absolute Auto 0.4 X10*3/uL (0.0-0.4); Eosinophils Percent Auto 7.6 % (0-4); Hematocrit 30.5 % (37.0-47.0); Hemoglobin 9.8 g/dl (12.0-16.0); Imm Gran Abs Auto 0.01 X10*3/uL (0.00-0.03); Imm Gran Pct Auto 0.2 % (0.0-0.4); Lymphocytes Absolute Auto 1.6 X10*3/uL (1.2-4.9); Lymphocytes Percent Auto 28.7 % (20-40); Mean Corpuscular HGB Conc 32.1 g/dl (31.0-35.0); Mean Corpuscular Hemoglobin 26.7 pg (27.0-33.0); Mean Corpuscular Volume 83.1 fL (80.0-98.0); Mean Platelet Volume 9.4 fL (9.4-12.3); Monocytes Absolute Auto 0.6 X10*3/uL (0.1-1.2); Monocytes Percent Auto 10.5 % (2-11); Neutrophils Absolute Auto 2.9 x10*3/uL (2.0-8.3); Neutrophils Percent Auto 52.1 % (45-73); Platelet Count 220 X10*3/uL (160-400); Red Blood Count 3.67 X10*6/uL (4.20-5.50); Red Cell Distribution Width 15.5 % (11.0-16.0); White Blood Count 5.5 X10*3/uL (4.8-10.8)
[2024-04-17] MEDS: oxyCODONE HCl Immed Release 5 MG TABLET PO (04:02)
--- NOTE | 2024-04-17 04:03 | PC.NURSE ---
Pt medicated per mar. Plan of care ongoing
[2024-04-17 04:07] LABS: Prothrombin Time 12.6 SEC (11.1-13.3)
[2024-04-17 04:14] LABS: Alanine Aminotransferase 7 U/L (0-31); Albumin Level 3.5 g/dL (3.5-5.0); Alkaline Phosphatase 83 U/L (39-117); Anion Gap 14 (12-20); Aspartate Amino Transferase 12 U/L (5-31); Bilirubin Direct 0.2 mg/dL (0.0-0.5); Bilirubin Total 0.5 mg/dL (0.0-1.0); Blood Urea Nitrogen 12 mg/dL (9-16); Calcium 9.8 mg/dL (8.4-10.2); Carbon Dioxide 24 mmol/L (22-29); Chloride 109 mmol/L (96-108); Estimated Glomerular Filt Rate > 60; Ethanol < 10 mg/dL; Glucose Random 98 mg/dL (60-115); Magnesium 1.6 mg/dL (1.6-2.6); Potassium 3.2 mmol/L (3.3-5.1); Sodium 144 mmol/L (135-145); Total Protein 6.7 g/dL (6.5-8.0)
--- NOTE | 2024-04-17 04:23 | ED_ITS ---
HPI - Psych General Chief Complaint: Behavioral Concerns Stated Complaint: SI W/ PLAN Time Seen by Provider: 04/17/24 03:25 Source: patient, EMS and old records reviewed Mode of arrival: EMS Limitations: no limitations History of Present Illness ED Provider: ROBERT PETERSON Narrative: 73 yo female with PMH of Afib on eliquis, mood disorder, GERD, DM2, bordeline personality disorder just admitted here after prolonged hospital stay 03/09 for R ankle fracture dislocation on 03/10 underwent R ankle external fixation but ended up walking on the hardware and had to go back to the OR on 03/11 - she developed skin breakdown and infection and has been on vancomycin 1000mg Q12H. She has been back to the OR x 2 for removal of external hardware and to apply cast. While inpatient she was seen by psychiatry and cleared after making a statement about jumping out of a window she recanted this and states she made it out of frustration. On arrival to the ED radha she is not forthcoming with me initially and seems to be manipulative and playing games such as when I ask why she is here she tells me to go read or talk to someone from [facility]. She then goes on to talk about how she injured her ankle and when I redirect her to this visit she admits she was frustrated at [facility] and knew after the 7 to 8 hours she was there she was never going back and her frustration at not getting medication on time led her to make SI statements to them to leave and she called 911 multiple times. She states she doesn't want to kill herself but she is not going back there. Related Data Home Medications ?Medication ?Instructions ?Recorded ?Confirmed ascorbic acid (vitamin C) 500 mg 500 mg PO DAILY 02/24/24 03/09/24 tablet cholecalciferol (vitamin D3) 25 25 mcg PO DAILY 02/24/24 03/09/24 mcg (1,000 unit) tablet cyanocobalamin (vitamin B-12) 1,000 mcg PO DAILY 02/24/24 03/09/24 1,000 mcg tablet duloxetine 30 mg capsule,delayed 30 mg PO DAILY 02/24/24 03/09/24 release duloxetine 60 mg capsule,delayed 60 mg PO DAILY 02/24/24 03/09/24 release gabapentin 300 mg capsule 300 mg PO DAILY 02/24/24 03/09/24 gabapentin 300 mg capsule 600 mg PO BEDTIME 02/24/24 03/09/24 lamotrigine 150 mg tablet 300 mg PO BEDTIME 02/24/24 03/09/24 Previous Rx's ?Medication ?Instructions ?Recorded acetaminophen 325 mg tablet 650 mg (2 x 325 mg) PO Q6H PRN 09/16/23 Pain, Mild (Pain Scale 1-3) #30 tabs apixaban 5 mg tablet (Eliquis) 5 mg PO BID #60 tabs 09/16/23 atorvastatin 40 mg tablet 40 mg PO DAILY 30 days #30 tabs 09/16/23 metformin 500 mg tablet 500 mg PO BID 30 days #60 tabs 09/16/23 metoprolol tartrate 50 mg tablet 50 mg PO BID 30 days #60 tabs 09/16/23 nystatin 100,000 unit/gram topical 1 appl topical TID 30 days #5 grams 09/16/23 powder omeprazole 40 mg capsule,delayed 40 mg PO DAILY 30 days #30 caps 09/16/23 release amlodipine 5 mg tablet 5 mg PO DAILY 30 days #30 tabs 04/16/24 docusate sodium 100 mg capsule 200 mg (2 x 100 mg) PO DAILY 30 04/16/24 days #60 caps enoxaparin 40 mg/0.4 mL 40 mg (0.4 mL) subcut Q24H 42 days 04/16/24 subcutaneous syringe #16.8 mL losartan 25 mg tablet 25 mg PO DAILY 30 days #30 tabs 04/16/24 vancomycin 1 gram/250 mL in 0.9 % 1 g (250 mL) IV Q12H 6 weeks 04/16/24 sodium chloride intravenous #3,000 mL Allergies Allergy/AdvReac Type Severity Reaction Status Date / Time [email or web address] [From Myrbetriq] Allergy Hallucinati Verified 04/17/24 02:13 ons Review of Systems 2 Review of Systems: Constitutional : No Fever, No Chills ENT/Mouth : No Ear Pain, No Nasal Congestion, No sore throat Eyes: No Eye Pain, No Swelling, No Redness Cardiovascular : No Chest Pain, No SOB Respiratory : No Cough, No Sputum, No Dyspnea Gastrointestinal : No Nausea, No Vomiting, No Diarrhea, No Hematochezia, No Melena Genitourinary : No Dysuria, No Urinary Frequency, No Hematuria Musculoskeletal : pos Myalgias Skin : No Skin Lesions, No rash Neuro : No Weakness, No Numbness, No Paresthesias, No Dizziness, No Headache Psych : positive Anxiety, positive Depression, no SI/HI Heme/Lymph: No Lymphadenopathy Endocrine : No Polyuria, No Polydipsia All other systems reviewed and are negative [facility] Past Medical History Medical History Elevated cholesterol Anxiety SELMA treated with BiPAP Diabetic ulcer of right foot Atrial fibrillation Borderline personality disorder Major depressive disorder Diabetes mellitus Chronic anticoagulation Surgical History Hx of esophagogastroduodenoscopy Hx of colonoscopy History of carpal tunnel release of both wrists Hx of bilateral cataract extraction Hx of bilateral breast reduction surgery Hx of hysterectomy Social History Social History Household Members: None Housing: Custodial Housing Other:: [facility] independent [facility] Do you presently have visiting nurse or other home services: Yes Unable to assess alcohol history related to: Refusing to respond Comment: 1:1 sitter Patient Tobacco Use Status: Former Tobacco user Use of substances other than those prescribed or required for medical reasons: Refusing to respond Advance Directives: No Advance Directives Information Provided: No Do you have a plan to hurt others: Vague service: No Physical Exam 2 Vital Signs: Vital Signs: Last Vital Signs Temp 97.5 F 04/17/24 04:00 Pulse 100 04/17/24 04:00 Resp 16 04/17/24 04:00 BP 145/81 H 04/17/24 04:00 Pulse Ox 96 04/17/24 04:00 O2 Del Method Room Air 04/17/24 04:00 BMI result Body Mass Index 39.2 Appearance: Alert. Oriented X3. No acute distress. asks me to talk to [facility] about why she is here then after prying admits to not liking it there and states she is never going back Eyes: Pupils equal, round and reactive to light. ENT: Pharynx normal. Neck: Normal inspection. Neck supple. CVS: Normal heart rate and rhythm. Pulses normal. Respiratory: No respiratory distress. Breath sounds normal. Abdomen: Soft and nontender. Skin: Skin warm and dry. Normal skin color. Normal skin turgor. Extremities: No lower extremity edema. R leg with cast in place c/d/i toes are warm and well perfused not red Neuro: Oriented X 3. No motor deficit. No sensory deficit. Medications Administered Generic Name Dose Route Start Last Admin Trade Name Freq PRN Reason Stop Dose Admin Vancomycin HCl 1,000 mg/ 270 mls @ 270 mls/hr 04/17/24 04:30 04/17/24 04:48 Sodium Chloride IV 270 mls/hr Q12H RICKY Administration Discontinued Medications Generic Name Dose Route Start Last Admin Trade Name Freq PRN Reason Stop Dose Admin Oxycodone HCl 5 mg 04/17/24 03:51 04/17/24 04:02 Oxycodone Hcl Immed Release 5 Mg Tablet PO 04/17/24 03:52 5 mg ONCE ONE Administration Potassium Chloride 40 meq 04/17/24 04:16 04/17/24 04:50 Potassium Chloride Packet 20 Meq Packet PO 04/17/24 04:17 Not Given ONCE ONE Potassium Chloride 40 meq 04/17/24 04:51 04/17/24 04:54 Potassium Chloride Er 20 Meq Tab.Er.Prt PO 04/17/24 04:52 40 meq ONCE ONE Administration Medical Decision Making Medical Decision Making MDM Narrative: 73 yo female with PMH of Afib on eliquis, mood disorder, GERD, DM2, bordeline personality disorder just admitted here after prolonged hospital stay 03/09 for R ankle fracture dislocation here with reported SI statements that she now recants after stating she doesn't want to go to [facility] she was just seen by psychiatry for similar outburst on 04/10 in setting of medical stay and depression related to that. She admits she stated this as she hates [facility] and is not going back. She states she would not hurt herself. I am going to order labs, vancomcyin and refer to case management Differential Diagnosis Differential Diagnoses: The differential diagnosis associated with the presentation includes borderline personality disorder, adjustment disorder Admission/Observation Consideration of admission/observation: Escalation of care including admission/observation considered physician observation started at 446am Consult Healthcare Provider Management of the patient was discussed with: Behavioral Health Provider Lab Data [facility] Lab Attestation statement: I reviewed the patient's lab results. 04/17/24 03:55 04/17/24 03:55 Labs: Lab Results 04/17/24 Range/Units 03:55 WBC 5.5 (4.8-10.8) X10*3/uL RBC 3.67 L (4.20-5.50) X10*6/uL Hgb 9.8 L (12.0-16.0) g/dl Hct 30.5 L (37.0-47.0) % MCV 83.1 (80.0-98.0) fL MCH 26.7 L (27.0-33.0) pg MCHC 32.1 (31.0-35.0) g/dl RDW 15.5 (11.0-16.0) % Plt Count 220 (160-400) X10*3/uL MPV 9.4 (9.4-12.3) fL Immature Gran % (Auto) 0.2 (0.0-0.4) % Neut % (Auto) 52.1 (45-73) % Lymph % (Auto) 28.7 (20-40) % Andrews % (Auto) 10.5 (2-11) % Eos % (Auto) 7.6 H (0-4) % Baso % (Auto) 0.9 (0-2) % Lymph # (Auto) 1.6 (1.2-4.9) X10*3/uL Andrews # (Auto) 0.6 (0.1-1.2) X10*3/uL Eos # (Auto) 0.4 (0.0-0.4) X10*3/uL Baso # (Auto) 0.1 (0.0-0.2) X10*3/uL Abs Immat Gran (auto) 0.01 (0.00-0.03) X10*3/uL Absolute Neuts (auto) 2.9 (2.0-8.3) x10*3/uL Absolute Nucleated RBC 0.000 (0.0-0.012) X10*3/uL Nucleated RBC % (auto) 0.0 (0.0-0.2) /100WBC PT 12.6 (11.1-13.3) SEC INR 1.0 (0.9-1.1) Sodium 144 (135-145) mmol/L Potassium 3.2 L (3.3-5.1) mmol/L Chloride 109 H (96-108) mmol/L Carbon Dioxide 24 (22-29) mmol/L Anion Gap 14 (12-20) BUN 12 (9-16) mg/dL Creatinine 0.76 (0.5-1.4) mg/dL Estim Creat Clear Calc 87.0 Estimated GFR > 60 Random Glucose 98 (60-115) mg/dL Calcium 9.8 (8.4-10.2) mg/dL Magnesium 1.6 (1.6-2.6) mg/dL Total Bilirubin 0.5 (0.0-1.0) mg/dL Direct Bilirubin 0.2 (0.0-0.5) mg/dL AST 12 (5-31) U/L ALT 7 (0-31) U/L Alkaline Phosphatase 83 (39-117) U/L Total Protein 6.7 (6.5-8.0) g/dL Albumin 3.5 (3.5-5.0) g/dL Ethyl Alcohol < 10 mg/dL Independent Historian Clinical information obtained from an independent historian. History obtained from or confirmed by: EMS External Record Review External record reviewed: Inpatient record Discharge Plan Discharge Clinical Impression: Borderline personality disorder Patient Disposition: Still a Patient Prescriptions: No Action acetaminophen 325 mg Tablet 650 mg PO Q6H PRN (Reason: Pain, Mild (Pain Scale 1-3)) Qty: 30 0RF metoprolol tartrate 50 mg Tablet 50 mg PO BID 30 Days Qty: 60 0RF Protocol: Hold for SBP/HR < HOLD for SBP < : 90 HOLD for HR < : 60 nystatin 100,000 unit/gram Powder 1 appl topical TID 30 Days Qty: 5 0RF Protocol: Apply to: Apply to: Abdominal folds and groin atorvastatin 40 mg tablet 40 mg PO DAILY 30 Days Qty: 30 0RF metformin 500 mg tablet 500 mg PO BID 30 Days Qty: 60 0RF omeprazole 40 mg capsule,delayed release(DR/EC) 40 mg PO DAILY 30 Days Qty: 30 0RF Eliquis 5 mg tablet 5 mg PO BID Qty: 60 0RF lamotrigine 150 mg tablet 300 mg PO BEDTIME gabapentin 300 mg capsule 600 mg PO BEDTIME gabapentin 300 mg capsule 300 mg PO DAILY duloxetine 30 mg capsule,delayed release(DR/EC) 30 mg PO DAILY duloxetine 60 mg capsule,delayed release(DR/EC) 60 mg PO DAILY cyanocobalamin (vitamin B-12) 1,000 mcg Tablet 1,000 mcg PO DAILY ascorbic acid (vitamin C) 500 mg Tablet 500 mg PO DAILY cholecalciferol (vitamin D3) 25 mcg (1,000 unit) Tablet 25 mcg PO DAILY amlodipine 5 mg Tablet 5 mg PO DAILY 30 Days Qty: 30 0RF Protocol: Hold for SBP< HOLD for SBP < : 90 losartan 25 mg Tablet 25 mg PO DAILY 30 Days Qty: 30 0RF Protocol: Hold for SBP< HOLD for SBP < : 90 docusate sodium 100 mg Capsule 200 mg PO DAILY 30 Days Qty: 60 0RF enoxaparin 40 mg/0.4 mL Syringe 40 mg subcut Q24H 42 Days Qty: 16.8 0RF vancomycin in 0.9 % sodium chl 1 gram/250 mL solution 1 g IV Q12H 42 Days Qty: 3000 0RF Print Language: Japanese
[2024-04-17] MEDS: vancomycin HCL 1,000 MG in 0.9 % Sodium Chloride 250 ML 270 MG IV ×2 (04:48→17:58)
--- NOTE | 2024-04-17 04:50 | PC.NURSE ---
pt refused liquid k+ and requested a pill. Provider lizandro notified. Plan of care ongoing.
[2024-04-17] MEDS: Potassium Chloride ER 20 MEQ TAB.ER.PRT 40 MEQ PO (04:54)
--- NOTE | 2024-04-17 04:56 | PC.NURSE ---
Pt medicated per jan. Plan of care ongoing.
--- NOTE | 2024-04-17 07:50 | HE.PHANOTE ---
re victor manuelo Case management; vanco for skin/skin tissue. SCR WNL, Will continue with 1000mg q12h, AUC PREDICTED AT 436, TROUGH 14.3. WILL DEFER FROM HIGHER DOSE DUE TO RISK OF DOSE DUMPING IN OBESE PT. LABS AND TROUGH ORDERED. NEXT TROUGH 04/18 @ 1500 MAYDA
--- NOTE | 2024-04-17 08:17 | PC.NURSE ---
care team meeting with patient at this time
--- NOTE | 2024-04-17 10:23 | MHC.CARE ---
Ortho PA, Angelica Trevizo asks that she be kept in the loop on this pt as she is currently treating her.
--- NOTE | 2024-04-17 10:27 | PC.NURSE ---
continues to rest quietly in room, patient observer remains at bedside. plan for inpatient psych bedsearch. per ortho, patient is to be nonweight bearing on right foot. pure wick is in place
--- NOTE | 2024-04-17 12:05 | MHC.CM.ED ---
Received case management consult. Patient is currently an inpatient psych bed search. Case management consult deferred at this time.
[2024-04-17] MEDS: DULoxetine HCl 60 MG CAPSULE.DR 120 MG PO (12:22)
[2024-04-17] MEDS: metFORMIN HCl 500 MG TABLET PO ×2 (12:22→21:33)
[2024-04-17] MEDS: Gabapentin 300 MG CAPSULE PO (12:22)
[2024-04-17] MEDS: amLODIPine Besylate 5 MG TABLET PO (12:22)
[2024-04-17] MEDS: Metoprolol Tartrate 50 MG TABLET PO ×2 (12:22→21:33)
[2024-04-17] MEDS: Acetaminophen 325 MG TABLET 975 MG PO (12:23)
[2024-04-17] MEDS: Apixaban 5 MG TABLET PO ×2 (12:23→21:33)
[2024-04-17] MEDS: Losartan Potassium 25 MG TABLET PO (12:23)
--- NOTE | 2024-04-17 19:19 | PC.NURSE ---
pt resting comfortably, pt reporting she uses CPAP at night. resp. called, sitter at bedside
--- NOTE | 2024-04-17 21:21 | PC.NURSE ---
2 assist to pivot onto commode for BM. pt transferred well onto commode when placed on her L side. harder time getting back into bed from commode, 2 assist and walker used. assist with washing and changing. repositioned in bed. new purewick placed.
[2024-04-17] MEDS: lamoTRIgine 100 MG TABLET 300 MG PO (21:33)
[2024-04-17] MEDS: Gabapentin 300 MG CAPSULE 600 MG PO (21:33)
[2024-04-17 21:53] LABS: Appearance Urine Cloudy; Color Urine Yellow; Glucose Urine UA Negative (Negative); Leukocyte Esterase Urine Moderate (2+) (Negative); Nitrite Urine Positive (Negative); PH 7.5 (5.0-9.0); Specific Gravity - Urine 1.015 (1.005-1.025); UMIC TRIGGER UACC YES; Urine Blood Moderate (2+) (Negative); Urine Ketones Negative (Negative); Urine Protein 30 (1+) mg/dL (Neg-Trace)
[2024-04-17 22:04] LABS: Amphetamine Screen Urine Not Detected (Not Detect); Barbiturates, Urine Not Detected (Not Detect); Benzodiazepines Screen Urine Not Detected (Not Detect); Buprenorphine Scr Not Detected (Not Detect); Cannabinoid Screen Urine Not Detected (Not Detect); Cocaine Screen Urine Not Detected (Not Detect); Fentanyl, urine Not Detected (Not Detect); Methadone Screen, Urine Not Detected (Not Detect); Opiate Screen Urine Not Detected (Not Detect); Oxycodone Screen Urine Positive (Not Detect); Phencyclidine Screen Urine Not Detected (Not Detect)
[2024-04-17 22:31] LABS: Bacteria Urine 4+ (None Seen); Hyaline Casts Urine 0-2 /LPF (0-2); RBC Urine >20 /HPF (0-2); Squamous Epithelial Cell Urine 0-2 /HPF (0-2); UACC Culture Trigger YES; WBC Urine >50 /HPF (0-5)
--- NOTE | 2024-04-17 23:20 | PC.NURSE ---
BiPAP at bedside
--- NOTE | 2024-04-18 00:45 | MHC.EDTECH ---
At 23:40 04/17/2024 this tech began sitting 1:1 observation. Notified patient's RN that patient still had their belongings with them at 23:59. After conversation, RN requested this tech message the costume maker/Clinical Coordinator. CC made aware of belongings at bedside at 00:10. These belongings include a cell phone, iPad, purse, glasses, two charging cords, a wallet inside the purse, and some miscellaneous papers. At 00:11 CC agreed that the pt belongings should be in a POD locker or in the POD closet. As of 00:51 no action has been taken by CC to remedy the situation.
[2024-04-18 01:01] VITALS: BP 146/86; PULSE 93; RESP 20; TEMP 36.3; O2SAT 95
--- NOTE | 2024-04-18 01:43 | MHC.EDTECH ---
At 01:11 this tech messaged the clinical coordinator to ask if the patient's belongings would be moved to a POD locker or the POD closet. No response from CC and no action taken as of :44. Pt belongings still at bedside. 1:1 observation ongoing.
--- NOTE | 2024-04-18 02:44 | MHC.EDTECH ---
At 02:14 this tech messaged CC/Charge again to ask if the patients belongings will be moved to the POD. No response from CC recieved and no action taken. Belongings remain at bedside. 1:1 observation ongoing.
--- NOTE | 2024-04-18 03:24 | MHC.EDTECH ---
Pt belongings sent to POD at 03:18 by clinical coordinator.
--- NOTE | 2024-04-18 03:26 | MHC.EDTECH ---
Pt belongings in POD laundry locker.
--- NOTE | 2024-04-18 03:42 | MHC.EDTECH ---
patient resting quietly sitter present.
[2024-04-18] MEDS: vancomycin HCL 1,000 MG in 0.9 % Sodium Chloride 250 ML 270 MG IV ×2 (04:49→17:36)
[2024-04-18 06:46] VITALS: BP 145/95; PULSE 82; RESP 16; TEMP 36.8; O2SAT 95
[2024-04-18 08:55] VITALS: BP 154/86; PULSE 98; RESP 16; TEMP 36.6; O2SAT 99
[2024-04-18] MEDS: DULoxetine HCl 60 MG CAPSULE.DR 120 MG PO (09:00)
[2024-04-18] MEDS: Ascorbic Acid 500 MG TABLET PO (09:00)
[2024-04-18] MEDS: Cholecalciferol (Vitamin D3) 25 MCG TABLET PO (09:00)
[2024-04-18] MEDS: Apixaban 5 MG TABLET PO (09:00)
[2024-04-18] MEDS: Omeprazole 40 MG CAPSULE.DR PO (09:00)
[2024-04-18] MEDS: Atorvastatin Calcium 40 MG TABLET PO (09:00)
[2024-04-18] MEDS: amLODIPine Besylate 5 MG TABLET PO (09:00)
[2024-04-18] MEDS: metFORMIN HCl 500 MG TABLET PO ×2 (09:00→23:25)
[2024-04-18] MEDS: Metoprolol Tartrate 50 MG TABLET PO ×2 (09:00→23:25)
[2024-04-18] MEDS: Losartan Potassium 25 MG TABLET PO (09:00)
[2024-04-18] MEDS: Gabapentin 300 MG CAPSULE PO (09:05)
--- NOTE | 2024-04-18 09:09 | PC.NURSE ---
patient is awake and alert, respirations equal unlabored, skin dry and intact. patient medicated per JAN, takes meds whole with water.
[2024-04-18] MEDS: Cyanocobalamin (Vitamin B-12) 1,000 MCG TABLET 1000 MCG PO (09:10)
[2024-04-18 09:55] LABS: Creatinine Clr Calc Pharmacy 85.9; Estimated Glomerular Filt Rate > 60
--- NOTE | 2024-04-18 11:49 | PM.EVENT ---
Event Note Date of Service: 04/18/24 Event Note: Patient resting in bed comfortably this morning Denies pain Cast is c/d/i Tearful and feels depressed and angry about her situation Awaiting fabiano-psych bed placement Time Spent With Patient Time: Total time managing care of this patient today ____ minutes.
--- NOTE | 2024-04-18 14:05 | MHC.EDTECH ---
Patient wash and clean , bed change , reposition.
[2024-04-18 17:56] LABS: Vancomycin Random 16.7 mcg/mL (15-20)
--- NOTE | 2024-04-18 18:07 | HE.PHANOTE ---
RE: vanco Trough on 04/18 came back at 16.7mg/L; changed dose to 750 Q12H however nursing had given another 1000mg dose before level came back. Predicted trough of 16mg/L; AUC of 478mg/L. Next level to be drawn 04/19 @1600
[2024-04-18 19:19] VITALS: BP 133/86; PULSE 87; RESP 17; TEMP 36.9; O2SAT 96
[2024-04-18 22:09] VITALS: PULSE 91; RESP 17; O2SAT 97
[2024-04-18 23:25] VITALS: PULSE 89
[2024-04-18] MEDS: lamoTRIgine 100 MG TABLET 300 MG PO (23:25)
[2024-04-18] MEDS: Gabapentin 300 MG CAPSULE 600 MG PO (23:26)
--- NOTE | 2024-04-19 | ECG_ITS ---
Test Reason : MEDICAL CLEARANCE Blood Pressure : / mmHG Vent. Rate : 084 BPM Atrial Rate : 000 BPM P-R Int : 000 ms QRS Dur : 086 ms QT Int : 402 ms P-R-T Axes : 000 -08 059 degrees QTc Int : 475 ms Atrial fibrillation Abnormal ECG When compared with ECG of 09-MAR-2024 18:19, No significant change was found Referred By: Generic ED Physician Electronically Signed By:WILLY SALAZAR
[2024-04-19 00:36] VITALS: PULSE 89; RESP 14; O2SAT 96
[2024-04-19 02:02] VITALS: BP 128/85; PULSE 84; RESP 17; TEMP 37.1; O2SAT 95
[2024-04-19] MEDS: vancomycin HCL 750 MG in 0.9 % Sodium Chloride 250 ML 265 MG IV ×2 (05:48→18:48)
[2024-04-19] MEDS: Omeprazole 40 MG CAPSULE.DR PO (05:53)
[2024-04-19 07:46] LABS: Creatinine Clr Calc Pharmacy 85.9; Estimated Glomerular Filt Rate > 60
[2024-04-19] MEDS: metFORMIN HCl 500 MG TABLET PO ×2 (08:15→21:45)
[2024-04-19] MEDS: Gabapentin 300 MG CAPSULE PO (08:15)
[2024-04-19] MEDS: Losartan Potassium 25 MG TABLET PO (08:16)
[2024-04-19] MEDS: Apixaban 5 MG TABLET PO ×2 (08:16→21:43)
[2024-04-19] MEDS: Atorvastatin Calcium 40 MG TABLET PO (08:16)
[2024-04-19] MEDS: Cyanocobalamin (Vitamin B-12) 1,000 MCG TABLET 1000 MCG PO (08:16)
[2024-04-19] MEDS: amLODIPine Besylate 5 MG TABLET PO (08:16)
[2024-04-19] MEDS: Metoprolol Tartrate 50 MG TABLET PO ×2 (08:16→21:44)
[2024-04-19] MEDS: DULoxetine HCl 60 MG CAPSULE.DR 120 MG PO (08:16)
[2024-04-19] MEDS: Ascorbic Acid 500 MG TABLET PO (08:16)
[2024-04-19] MEDS: Cholecalciferol (Vitamin D3) 25 MCG TABLET PO (08:16)
--- NOTE | 2024-04-19 08:27 | PC.NURSE ---
this RN resumed care of pt at 0700. pt alert and oriented to self only. pt unaware on where she is, why she's here, what year it is. pt seemingly confused to what the plan of care is at this time. pt educated on the fact that an inpatient bedsearch has been conducted for her. pt medicated per provider order. pills whole w/ water. no difficulties in swallowing noted. pt denies SI/HI for this documentation writer. pt verbalizing, I don't know why everybody keeps asking me that! I never said that! 1:1 sitter remains present. no sob/wob noted. respirations even/unlabored. plan of care ongoing. call solano placed within reach.
--- NOTE | 2024-04-19 09:26 | PC.NURSE ---
pt transitioned to hospital bed to promote comfort at this time. 1:1 sitter remains present.
--- NOTE | 2024-04-19 12:09 | PC.NURSE ---
ekg performed by [facility] for medical clearance for admissions.
--- NOTE | 2024-04-19 18:00 | PC.NURSE ---
repeat victor maneulo obtained/sent to lab.
[2024-04-19 18:07] VITALS: BP 120/72; PULSE 78; RESP 18; TEMP 36.2; O2SAT 97
[2024-04-19 18:32] LABS: Vancomycin Random 16.2 mcg/mL (15-20)
[2024-04-19 20:00] VITALS: BP 136/74; PULSE 99; RESP 16; TEMP 36.1; O2SAT 96
[2024-04-19 21:44] VITALS: BP 136/74; PULSE 99
[2024-04-19] MEDS: Gabapentin 300 MG CAPSULE 600 MG PO (21:44)
[2024-04-19] MEDS: lamoTRIgine 100 MG TABLET 300 MG PO (21:45)
[2024-04-19] MEDS: Nystatin Powder 15 GM BOTTLE 1 APPL TOPICAL (22:57)
[2024-04-19] MEDS: hydrOXYzine HCL 25 MG TABLET PO (23:05)
[2024-04-19 23:18] VITALS: BMI 39.0
[2024-04-19 23:39] VITALS: PULSE 68; RESP 16; O2SAT 99
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
[2024-04-20] MEDS: vancomycin HCL 750 MG in 0.9 % Sodium Chloride 250 ML 265 MG IV ×2 (05:45→18:39)
[2024-04-20 08:23] VITALS: BP 122/79; PULSE 78; RESP 16; TEMP 37.3; O2SAT 96
[2024-04-20 08:25] VITALS: BP 122/79
[2024-04-20] MEDS: Docusate Sodium 100 MG CAPSULE 200 MG PO (08:25)
[2024-04-20] MEDS: Cyanocobalamin (Vitamin B-12) 1,000 MCG TABLET 1000 MCG PO (08:25)
[2024-04-20] MEDS: amLODIPine Besylate 5 MG TABLET PO (08:25)
[2024-04-20] MEDS: DULoxetine HCl 60 MG CAPSULE.DR 120 MG PO (08:25)
[2024-04-20] MEDS: Cholecalciferol (Vitamin D3) 25 MCG TABLET PO (08:25)
[2024-04-20 08:26] VITALS: BP 122/79; PULSE 78
[2024-04-20] MEDS: Atorvastatin Calcium 40 MG TABLET PO (08:26)
[2024-04-20] MEDS: Omeprazole 40 MG CAPSULE.DR PO (08:26)
[2024-04-20] MEDS: Ascorbic Acid 500 MG TABLET PO (08:26)
[2024-04-20] MEDS: Apixaban 5 MG TABLET PO ×2 (08:26→19:47)
[2024-04-20] MEDS: metFORMIN HCl 500 MG TABLET PO ×2 (08:26→19:48)
[2024-04-20] MEDS: Metoprolol Tartrate 50 MG TABLET PO ×2 (08:26→19:47)
[2024-04-20 08:27] VITALS: BP 122/79
[2024-04-20] MEDS: Losartan Potassium 25 MG TABLET PO (08:27)
[2024-04-20] MEDS: Nystatin Powder 15 GM BOTTLE 1 APPL TOPICAL (08:27)
[2024-04-20] MEDS: Gabapentin 300 MG CAPSULE PO (08:27)
[2024-04-20 09:09] LABS: Estimated Average Glucose 103 mg/dL; Hemoglobin A1C 86.2117 umol/L; Hemoglobin A1c % 5.2 % (<6.0)
[2024-04-20 09:16] LABS: Creatinine Clr Calc Pharmacy 89.1; Estimated Glomerular Filt Rate > 60
[2024-04-20 09:23] LABS: Cholesterol 110 mg/dL (<200); HDL Cholesterol 37 mg/dL (>40); LDL Cholesterol Calculated 58 mg/dL (<100); Magnesium 1.5 mg/dL (1.6-2.6); Triglycerides 78 mg/dL (<150)
[2024-04-20 09:48] LABS: Free T4 (Free Thyroxine) 1.02 ng/dL (0.71-1.85); Thyroid Stimulating Hormone 1.86 uIU/mL (0.32-4.0)
[2024-04-20 10:01] LABS: Folate 4.1 ng/mL (> or = 4.0); Vitamin B12 763 pg/mL (200-900)
--- NOTE | 2024-04-20 10:17 | P.HPPS_ITS ---
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 While she was on the assisted living facility, the patient verbalized suicidal ideation and she was transferring to this emergency room for assessment, assessed by crisis and transferred here for psychiatric stabilization. The patient is very well known by me since I treated her a few months ago at this unit. At that time the stressor was the selling of the house that she grew up and she needed to move to assisted living facility that eventually she did. The patient carries a diagnosis of major depressive disorder, borderline personality disorder, morbid obesity, sleep apnea and diabetes. After the discharge she had an accident, she fell and fractured her ankle several parts and needed surgical procedures. Since then she had being going to subacute rehab and other facilities for continuation of care. On the intake interview, the patient reported that she had conflicts with the care that she received another facility and she felt disheartened it and suicidal. Also, apparently her Cymbalta was lowered for 120 mg a day to 90 mg a few weeks ago but it has been restarted up to 120 mg on the emergency room. During the interview, the patient was able to contract for safety she was alert and oriented and she was future oriented. She stated that she has been feeling more depressed and dysphoric after the accident since she has noticed that she requires more help and she has not independent anymore. She complained of depressed mood, anhedonia, lack of energy, poor sleep feelings of hopelessness and sporadic suicidal ideation. The patient is able to contract for safety in the facility here. I explained her that she was on one-to-one on admission due to safety. We will change in the level of observation since she is able to contract for safety and there are no psychotic symptoms. Past Psychiatric History: inpatient admission September 2023, following Klonopin overdose. Please see record for discharge summary. Overall was a short stay from 09/11/23 and discharged 09/16/2023. As per record the patient's 1st psychiatric contact was more than 20 years ago when she was diagnosed of borderline personality disorder and she followed DBT treatment. She had been admitted once when she was 51 years old since she tried to commit suicide. She denies substance abuse. Medical Evaluation Reviewed: Yes [facility] Medical History Elevated cholesterol Anxiety SELMA treated with BiPAP Diabetic ulcer of right foot Atrial fibrillation Borderline personality disorder Major depressive disorder Diabetes mellitus Chronic anticoagulation Surgical History Hx of esophagogastroduodenoscopy Hx of colonoscopy History of carpal tunnel release of both wrists Hx of bilateral cataract extraction Hx of bilateral breast reduction surgery Hx of hysterectomy Family History: Apparently her son suffers from depression he tried and to overdose himself a few years ago. 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 Had moved in to [place]. Substance History: Denies Trauma History: Denies Diagnostics Vital Signs (24Hr): Vital Signs - 24 hr 04/19/24 18:07 04/19/24 20:00 04/19/24 21:44 Temperature 97.1 F 96.9 F Pulse Rate 78 99 99 Respiratory Rate 18 16 Blood Pressure 120/72 136/74 136/74 Pulse Oximetry 97 96 Oxygen Delivery Method Room Air Room Air 04/19/24 23:39 04/20/24 08:23 04/20/24 08:25 Temperature 99.1 F Pulse Rate 78 Respiratory Rate 16 16 Blood Pressure 122/79 122/79 Pulse Oximetry 96 Oxygen Delivery Method Room Air 04/20/24 08:26 04/20/24 08:27 Temperature Pulse Rate 78 Respiratory Rate Blood Pressure 122/79 122/79 Pulse Oximetry Oxygen Delivery Method BMI result Body Mass Index 39.0 Labs 04/17/24 03:55 04/20/24 08:15 Labs: Laboratory Results - last 48 hr 04/18/24 04/19/24 04/19/24 16:42 07:17 18:06 Creatinine 0.77 Estim Creat Clear Calc 85.9 Estimated GFR > 60 POC Glucose Estimat Average Glucose Hemoglobin A1c % Magnesium Triglycerides Cholesterol LDL Cholesterol, Calc HDL Cholesterol Vitamin B12 Folate TSH Free T4 Random Vancomycin 16.7 16.2 04/19/24 04/20/24 21:42 08:15 Creatinine 0.74 Estim Creat Clear Calc 89.1 Estimated GFR > 60 POC Glucose Cancelled Estimat Average Glucose 103 Hemoglobin A1c % 5.2 Magnesium 1.5 L Triglycerides 78 Cholesterol 110 LDL Cholesterol, Calc 58 HDL Cholesterol 37 L Vitamin B12 763 Folate 4.1 TSH 1.86 Free T4 1.02 Random Vancomycin Meds/Allergies Meds Home Medications ?Medication ?Instructions ?Recorded ?Confirmed ?Type ascorbic acid (vitamin C) 500 mg 500 mg PO DAILY 02/24/24 04/17/24 History tablet cholecalciferol (vitamin D3) 25 25 mcg PO DAILY 02/24/24 04/17/24 History mcg (1,000 unit) tablet cyanocobalamin (vitamin B-12) 1,000 mcg PO DAILY 02/24/24 04/17/24 History 1,000 mcg tablet duloxetine 30 mg capsule,delayed 30 mg PO DAILY 02/24/24 04/17/24 History release duloxetine 60 mg capsule,delayed 60 mg PO DAILY 02/24/24 04/17/24 History release gabapentin 300 mg capsule 300 mg PO DAILY 02/24/24 04/17/24 History gabapentin 300 mg capsule 600 mg PO BEDTIME 02/24/24 04/17/24 History lamotrigine 150 mg tablet 300 mg PO BEDTIME 02/24/24 04/17/24 History Allergies Allergies Allergy/AdvReac Type Severity Reaction Status Date / Time mirabegron [From Myrbetriq] Allergy Hallucinati Verified 04/17/24 02:13 ons Mental Status Exam Mental Status Exam Patient Appearance: Appropriate (On hospital gowns) Patient Orientation: Person, Place and Situation Level of Consciousness: Awake and Appropriate Patient Behavior: Guarded and Passive Mood Description: Calm and Depressed Affect Description: Constricted Patient Cognition Impaired: No Ability to Follow Directions: Good Speech Pattern: Clear Hallucinations: None Delusions: Ideas of Reference Thought Process: Goal Oriented and Linear Thought Content: positive for Circumstantial Judgement: Fair Assessment & Plan Assessment & Plan (1) Borderline personality disorder: Status: Acute Code(s): F60.3 - Borderline personality disorder (2) Major depressive disorder: Status: Acute Code(s): F32.9 - Major depressive disorder, single episode, unspecified (3) Peripheral neuropathy: Status: Acute Code(s): G62.9 - Polyneuropathy, unspecified (4) SELMA treated with BiPAP: Status: Acute Code(s): G47.33 - Obstructive sleep apnea (adult) (pediatric) Plan The patient is a 73-year-old female with past history of borderline personality disorder and major depressive disorder who was brought to the facility after she disclosed suicidal ideation. The patient had several stressors recently, she had a multi fracture in her ankle that required several surgical procedures and recently her Cymbalta dose was changed. At this moment, the patient reports improvement of his mood and she is able to contract for safety. Plan 1. Gather collateral information. 2. The patient signed a CV. 3. Lower observation to 15 minutes. 4. Change Cymbalta to 60 mg p.o. b.i.d. instead of 120 mg once a day. 5. Add tramadol 50 mg q.6 hours p.r.n. pain. 6. PT consult. 7. Reassessment with results. Patient educated on: diagnosis and therapeutic strategies Informed Consent: understands Reason for continued inpatient stay Substantial Risk for: harm to self, inability to function, rapid decompensation and med/psych decompensation Statement Statement: I have reviewed the history and physical and performed a pertinent examination on my patient. No changes have occurred unless specified. If the History and Physical was not performed prior to admission, the Hospitalist's service will be consulted for completing the admission physical. Time Spent With Patient Time: Total time managing care of this patient today ___45_ minutes.
[2024-04-20] MEDS: Acetaminophen 325 MG TABLET 650 MG PO ×2 (12:41→19:47)
[2024-04-20] MEDS: lamoTRIgine 100 MG TABLET 300 MG PO (19:47)
[2024-04-20] MEDS: traZODone HCL 50 MG TABLET PO (19:47)
[2024-04-20] MEDS: Gabapentin 300 MG CAPSULE 600 MG PO (19:48)
[2024-04-20] MEDS: DULoxetine HCl 60 MG CAPSULE.DR PO (19:48)
[2024-04-20 20:00] VITALS: BP 126/75; PULSE 91; RESP 18; TEMP 36.6; O2SAT 97
[2024-04-21] MEDS: vancomycin HCL 750 MG in 0.9 % Sodium Chloride 250 ML 265 MG IV ×2 (06:02→18:04)
[2024-04-21] MEDS: Omeprazole 40 MG CAPSULE.DR PO (06:03)
[2024-04-21 07:58] LABS: Creatinine Clr Calc Pharmacy 87.9; Estimated Glomerular Filt Rate > 60
[2024-04-21 08:39] VITALS: BP 132/75; PULSE 73; RESP 16; TEMP 36.9; O2SAT 98
[2024-04-21 09:26] VITALS: BP 132/75; PULSE 73
[2024-04-21] MEDS: Metoprolol Tartrate 50 MG TABLET PO ×2 (09:26→20:58)
[2024-04-21] MEDS: Cholecalciferol (Vitamin D3) 25 MCG TABLET PO (09:26)
[2024-04-21] MEDS: DULoxetine HCl 60 MG CAPSULE.DR PO ×2 (09:26→20:58)
[2024-04-21 09:27] VITALS: BP 132/75
[2024-04-21] MEDS: Atorvastatin Calcium 40 MG TABLET PO (09:27)
[2024-04-21] MEDS: amLODIPine Besylate 5 MG TABLET PO (09:27)
[2024-04-21] MEDS: Gabapentin 300 MG CAPSULE PO (09:27)
[2024-04-21] MEDS: metFORMIN HCl 500 MG TABLET PO ×2 (09:27→20:59)
[2024-04-21] MEDS: Losartan Potassium 25 MG TABLET PO (09:27)
[2024-04-21] MEDS: Apixaban 5 MG TABLET PO ×2 (09:28→20:58)
[2024-04-21] MEDS: Ascorbic Acid 500 MG TABLET PO (09:28)
[2024-04-21] MEDS: Cyanocobalamin (Vitamin B-12) 1,000 MCG TABLET 1000 MCG PO (09:28)
[2024-04-21] MEDS: Nystatin Powder 15 GM BOTTLE 1 APPL TOPICAL ×2 (09:49→20:58)
--- NOTE | 2024-04-21 10:59 | HO.WOUND ---
Wound Consult: Initial 73yr old female admitted to [facility] on 04/[facility] to the Inpatient [facility]al Health Unit - See progress notes and H&P for detailed history.? Wound consult placed for bilateral ankle wounds within windowed cast. TT with Angelica Trevizo from Orthopedic surgery team and she is in agreement for me to assess and make topical recommendations. Patient agreeable to assessment and photo documentation.? Overall the wound sites have significantly improved. See chart review for details images and wound care notes for details. Right Lateral Ankle wound Etiology: ??Old Surgical Pin site Measurements: 0.2cm x 0.2cm x 2cm Wound Bed: difficult to visualize Drainage / Odor: serosang no odor noted Edges: ? unattached Eblinda wound: pink pigmentation observed - not concerning for erythema at this time. ? No Induration, Fluctuance or Warmth noted Pain: mild tenderness when probing Goals of Treatment: ? Moisture Management with Durafiber packing Right Medial Ankle Wound Etiology: ??Old Surgical Pin site Measurements: 0.3cm x 0.4cm x 0.1cm Wound Bed: adherent dry scab and area of clean red moist tissue Drainage / Odor: None noted - dried serosang drainage noted on old dressing Edges: ?attached Belinda wound: pink pigmentation observed - not concerning for erythema at this time. ? No Induration, Fluctuance or Warmth noted Pain: denies Goals of Treatment: ? Moisture Management with Durafiber packing Medial site with durafiber and Hydrocolloid in place Lateral site with durafiber packing and Hydrocolloid in place Recommendations: 1. Turn and Reposition every 2 hours and as needed for patient comfort.? Use pillows or wedges to support off loading positions. 2. Off Load all bony prominences with use of pillows and heel boots if needed.? Apply Preventative foams where needed. ? 3. Monitor for incontinence and moisture control, use barrier creams when needed for prevention and treatment. 4. Provide adequate and supplemental nutrition.? 5. Order low air loss mattress. 6. Maintain blood glucose levels per Providers order. 7. Left ankle and ibarra - Cleanse with Ns moist gauze, apply skin prep allow to dry. Cover wounds with foam dressing peel back and assess Q shift and change every 3 days. Off load heel off of bed surface. 8. Right Medial and Lateral Ankle Sites - Cleanse with NS, moist gauze, Pat dry. Lateral Site - Lightly pack wound with Strip cut Durafiber AG, be sure to leave wick for easy removal. For medial side - apply cut piece of Durafiber AG, Cover both sites with Hydrocolloid. Fill space of window cast with dry gauze and complete with joana wrap. Change every 3 days. Re-consult wound care Nurse for wound deterioration or wound changes
--- NOTE | 2024-04-21 14:30 | P.PNPSI_ITS ---
Subjective Subjective Date of Service: 04/21/24 Reason For Visit: Depression Subjective Notes: Conditional Voluntary and 3 Day (On April 21) Interim History: The nursing staff reported the patient was compliant with treatment she denies active suicidal ideation. The staff reported that she admitted that she made up the suicidal statement in order to be in the hospital in this unit. On interview the patient was very upset since orthopedics had put an air mattress and the noise of the pump was bothering her. She adamantly denies suicidal ideation she signed conditional voluntary and a 3 day notice. We are lowering her observation to 15 minutes checks and only one-to-one while she is having infusions of IV antibiotics or CPAP. Mental Status Exam Mental Status Exam Patient Appearance: Appropriate Patient Orientation: Person and Situation Level of Consciousness: Awake and Appropriate Patient Behavior: Guarded and Passive Mood Description: Constricted Affect Description: Constricted Patient Cognition Impaired: Yes Ability to Follow Directions: Good Speech Pattern: Clear Hallucinations: None Delusions: Not Present Thought Process: Linear Thought Content: positive for Circumstantial Judgement: Fair Diagnostics Vital Signs (24Hr): Vital Signs - 24 hr 04/20/24 20:00 04/21/24 08:39 04/21/24 09:26 Temperature 97.9 F 98.4 F Pulse Rate 91 73 73 Respiratory Rate 18 16 Blood Pressure 126/75 132/75 132/75 Pulse Oximetry 97 98 Oxygen Delivery Method Room Air Room Air 04/21/24 09:27 04/21/24 09:27 Temperature Pulse Rate Respiratory Rate Blood Pressure 132/75 132/75 Pulse Oximetry Oxygen Delivery Method BMI result Body Mass Index 39.0 Labs 04/17/24 03:55 04/21/24 07:29 Labs: Laboratory Results - last 48 hr 04/19/24 04/19/24 04/20/24 18:06 21:42 08:15 Creatinine 0.74 Estim Creat Clear Calc 89.1 Estimated GFR > 60 POC Glucose Cancelled Estimat Average Glucose 103 Hemoglobin A1c % 5.2 Magnesium 1.5 L Triglycerides 78 Cholesterol 110 LDL Cholesterol, Calc 58 HDL Cholesterol 37 L Vitamin B12 763 Folate 4.1 TSH 1.86 Free T4 1.02 Random Vancomycin 16.2 04/20/24 04/21/24 16:05 07:29 Creatinine 0.75 Estim Creat Clear Calc 87.9 Estimated GFR > 60 POC Glucose Estimat Average Glucose Hemoglobin A1c % Magnesium Triglycerides Cholesterol LDL Cholesterol, Calc HDL Cholesterol Vitamin B12 Folate TSH Free T4 Random Vancomycin 16.0 Medications Medications Current Medications Acetaminophen (Acetaminophen 325 Mg Tablet) 650 mg PO Q6H PRN PRN Reason: Headache/Pain Mild Scale (1-3) Last Admin: 04/20/24 19:47 Dose: 650 mg Al Hydroxide/Mg Hydroxide (Magnesium Hydrox/Alum Hydrox 30 Ml Oral.Susp) 30 ml PO Q6H PRN PRN Reason: Heartburn/Nausea Amlodipine Besylate (Amlodipine Besylate 5 Mg Tablet) 5 mg PO DAILY [facility]; Protocol Last Admin: 04/21/24 09:27 Dose: 5 mg Apixaban (Apixaban 5 Mg Tablet) 5 mg PO BID [facility] Last Admin: 04/21/24 09:28 Dose: 5 mg Ascorbic Acid (Ascorbic Acid 500 Mg Tablet) 500 mg PO DAILY [facility] Last Admin: 04/21/24 09:28 Dose: 500 mg Atorvastatin Calcium (Atorvastatin Calcium 40 Mg Tablet) 40 mg PO DAILY [facility] Last Admin: 04/21/24 09:27 Dose: 40 mg Cyanocobalamin (Cyanocobalamin (Vitamin B-12) 1,000 Mcg Tablet) 1,000 mcg PO DAILY [facility] Last Admin: 04/21/24 09:28 Dose: 1,000 mcg Docusate Sodium (Docusate Sodium 100 Mg Capsule) 200 mg PO DAILY [facility] Last Admin: 04/21/24 09:28 Dose: Not Given Duloxetine HCl (Duloxetine Hcl 60 Mg Capsule.Dr) 60 mg PO BID [facility] Last Admin: 04/21/24 09:26 Dose: 60 mg Gabapentin (Gabapentin 300 Mg Capsule) 600 mg PO BEDTIME [facility] Last Admin: 04/20/24 19:48 Dose: 600 mg Gabapentin (Gabapentin 300 Mg Capsule) 300 mg PO DAILY [facility] Last Admin: 04/21/24 09:27 Dose: 300 mg Hydroxyzine HCl (Hydroxyzine Hcl 25 Mg Tablet) 25 mg PO Q6H PRN PRN Reason: Anxiety Last Admin: 04/19/24 23:05 Dose: 25 mg Vancomycin HCl 750 mg/ Sodium (Chloride) 265 mls @ 265 mls/hr IV Q12H [facility] Last Infusion: 04/21/24 07:06 Dose: Infused Lamotrigine (Lamotrigine 100 Mg Tablet) 300 mg PO BEDTIME [facility] Last Admin: 04/20/24 19:47 Dose: 300 mg Losartan Potassium (Losartan Potassium 25 Mg Tablet) 25 mg PO DAILY [facility]; Protocol Last Admin: 04/21/24 09:27 Dose: 25 mg Magnesium Hydroxide (Milk Of Magnesia 30 Ml Oral.Susp) 30 ml PO DAILY PRN PRN Reason: Constipation Metformin HCl (Metformin Hcl 500 Mg Tablet) 500 mg PO BID [facility] Last Admin: 04/21/24 09:27 Dose: 500 mg Metoprolol Tartrate (Metoprolol Tartrate 50 Mg Tablet) 50 mg PO BID [facility]; Protocol Last Admin: 04/21/24 09:26 Dose: 50 mg Nystatin (Nystatin Powder 15 Gm Bottle) 1 appl TOPICAL TID [facility]; Protocol Last Admin: 04/21/24 09:49 Dose: 1 appl Omeprazole (Omeprazole 40 Mg Capsule.Dr) 40 mg PO DAILY@0630 [facility] Last Admin: 04/21/24 06:03 Dose: 40 mg Pharmacy Consult (Consult Rx Vancomycin Dosing) 1 each MISCELLANE DAILY PRN PRN Reason: Consult order Sodium Chloride (0.9 % Sodium Chloride Flush 10 Ml Syringe) [facility] Tramadol HCl (Tramadol Hcl 50 Mg Tablet) 50 mg PO Q6H PRN PRN Reason: Pain, Severe (Pain Scale 7-10) Trazodone HCl (Trazodone Hcl 50 Mg Tablet) 50 mg PO BEDTIME MRX1 PRN PRN Reason: Insomnia Last Admin: 04/20/24 19:47 Dose: 50 mg Vitamin D (Cholecalciferol (Vitamin D3) 25 Mcg Tablet) 25 mcg PO DAILY [facility] Last Admin: 04/21/24 09:26 Dose: 25 mcg Allergies Allergies Allergy/AdvReac Type Severity Reaction Status Date / Time mirabegron [From Myrbetriq] Allergy Hallucinati Verified 04/17/24 02:13 ons Assessment & Plan Assessment & Plan (1) Borderline personality disorder: Status: Acute Code(s): F60.3 - Borderline personality disorder (2) Major depressive disorder: Status: Acute Code(s): F32.9 - Major depressive disorder, single episode, unspecified (3) Peripheral neuropathy: Status: Acute Code(s): G62.9 - Polyneuropathy, unspecified (4) SELMA treated with BiPAP: Status: Acute Code(s): G47.33 - Obstructive sleep apnea (adult) (pediatric) Plan The patient is a 73-year-old female with past history of borderline personality disorder and major depressive disorder who was brought to the facility after she disclosed suicidal ideation. The patient had several stressors recently, she had a multi fracture in her ankle that required several surgical procedures and recently her Cymbalta dose was changed. At this moment, the patient reports improvement of his mood and she is able to contract for safety. Plan 1. Gather collateral information. 2. The patient signed a CV. 3. Lower observation to 15 minutes. 4. Change Cymbalta to 60 mg p.o. b.i.d. instead of 120 mg once a day. 5. Add tramadol 50 mg q.6 hours p.r.n. pain. 6. PT consult. 7. Reassessment with results. 8. Orthopedics already saw her, we did also wound consult. 9. The patient signed a CV on a 3 day notice she wants to be discharged as soon as possible. No evidence of suicidal ideation at this point Reason for continued inpatient stay Substantial Risk for: inability to function, rapid decompensation and med/psych decompensation Time Spent With Patient Time: Total time managing care of this patient today ___20_ minutes.
[2024-04-21] MEDS: 0.9 % Sodium Chloride Flush 10 ML SYRINGE 5 ML IVFLUSH (15:29)
[2024-04-21 16:38] LABS: Vancomycin Random 14.9 mcg/mL (15-20)
[2024-04-21] MEDS: Acetaminophen 325 MG TABLET 650 MG PO (16:45)
[2024-04-21 20:00] VITALS: BP 143/71; PULSE 89; RESP 15; TEMP 36.1; O2SAT 97
[2024-04-21] MEDS: traZODone HCL 50 MG TABLET PO (20:57)
[2024-04-21 20:58] VITALS: BP 143/71; PULSE 89
[2024-04-21] MEDS: Gabapentin 300 MG CAPSULE 600 MG PO (20:58)
[2024-04-21] MEDS: lamoTRIgine 100 MG TABLET 300 MG PO (20:59)
[2024-04-21 23:58] VITALS: RESP 15
[2024-04-22] MEDS: traZODone HCL 50 MG TABLET PO (01:11)
[2024-04-22] MEDS: 0.9 % Sodium Chloride Flush 10 ML SYRINGE 5 ML IVFLUSH ×3 (01:13→15:45)
[2024-04-22] MEDS: vancomycin HCL 750 MG in 0.9 % Sodium Chloride 250 ML 265 MG IV ×2 (06:19→18:43)
[2024-04-22 07:00] VITALS: BMI 39.1
--- NOTE | 2024-04-22 07:22 | PM.PNORT ---
Subjective Subjective Date of Service: 04/22/24 Principal diagnosis: right ankle fracture dislocation with severe neuropathy and open wounds Interval history: Ashley feels ok. She describes anterior ibarra pain and back pain. Physical Exam Vital Signs: Vital Signs: Last Vital Signs Temp 97.0 F 04/21/24 20:00 Pulse 89 04/21/24 20:58 Resp 15 04/21/24 23:58 BP 143/71 H 04/21/24 20:58 Pulse Ox 97 04/21/24 20:00 O2 Del Method Room Air 04/21/24 20:00 BMI result Body Mass Index 39.0 Extrem: Other: cast intact and unchanged from prior moving toes with brisk cap refill Procedures Date of Service Date of Service: 04/22/24 Progress Note: A&P Assessment and plan (1) Peripheral neuropathy: Status: Acute Assessment and Plan: Wound care saw wounds and they are stable. We will change cast this Friday and assess skin and fracture status (2) Trimalleolar fracture of right ankle: Status: Acute Assessment and Plan: Ankle is located but facture is displaced. Will assess healing status wtih radiographs after cast change on Friday the . In the meantime she should remain NWB RLE and continue abx as per ID. She should try to sit in a chair for several hours a day. Time Spent With Patient Time: Total time managing care of this patient today ____ minutes. Quality Stroke Does the patient have a stroke diagnosis?: No VTE Prior VTE?: No VTE Risk Level:: Medical - moderate - high VTE Device Contraindication: Treatment Not Indicated VTE Drug Contraindication: N/A - Med Ordered
[2024-04-22 08:09] LABS: Creatinine Clr Calc Pharmacy 89.1; Estimated Glomerular Filt Rate > 60
[2024-04-22 10:37] VITALS: BP 149/77; PULSE 86; RESP 18; TEMP 36.1; O2SAT 95
[2024-04-22] MEDS: traMADoL HCL 50 MG TABLET PO ×2 (10:38→18:41)
[2024-04-22 10:39] VITALS: BP 149/77
[2024-04-22] MEDS: amLODIPine Besylate 5 MG TABLET PO (10:39)
[2024-04-22] MEDS: Atorvastatin Calcium 40 MG TABLET PO (10:39)
[2024-04-22] MEDS: Cyanocobalamin (Vitamin B-12) 1,000 MCG TABLET 1000 MCG PO (10:39)
[2024-04-22 10:40] VITALS: BP 149/77; PULSE 86
[2024-04-22] MEDS: metFORMIN HCl 500 MG TABLET PO ×2 (10:40→20:15)
[2024-04-22] MEDS: Gabapentin 300 MG CAPSULE PO (10:40)
[2024-04-22] MEDS: Cholecalciferol (Vitamin D3) 25 MCG TABLET PO (10:40)
[2024-04-22] MEDS: DULoxetine HCl 60 MG CAPSULE.DR PO ×2 (10:40→20:15)
[2024-04-22] MEDS: Metoprolol Tartrate 50 MG TABLET PO ×2 (10:40→20:15)
[2024-04-22] MEDS: Losartan Potassium 25 MG TABLET PO (10:40)
[2024-04-22] MEDS: Apixaban 5 MG TABLET PO ×2 (10:41→20:15)
[2024-04-22] MEDS: Ascorbic Acid 500 MG TABLET PO (10:41)
[2024-04-22] MEDS: Nystatin Powder 15 GM BOTTLE 1 APPL TOPICAL ×3 (10:52→20:18)
--- NOTE | 2024-04-22 12:05 | P.PNPSI_ITS ---
Subjective Subjective Date of Service: 04/22/24 Reason For Visit: Depression Subjective Notes: Conditional Voluntary and 3 Day Interim History: The nursing staff reported the patient's mood has changed very fast during the day. She was very angry in the morning and in the afternoon later on she was more pleasant, she had been compliant with treatment. She was angry since they removed the CPAP machine since she was not using. The social science research assistant reported that she was noncompliant with treatment with PT and rehab and that is why she was discharged. The occupational therapist and the physical therapist reported history of noncompliance. On interview the patient reports that she is feeling angry and she is dysphoric but no active suicidal ideation. She signed a 3 day notice and we are trying to discharge her to subacute rehab for continuation of care. Mental Status Exam Mental Status Exam Patient Appearance: Appropriate Patient Orientation: Person and Situation Level of Consciousness: Awake Patient Behavior: Guarded, Passive and Belligerent Mood Description: Withdrawn Affect Description: Constricted Patient Cognition Impaired: Yes Ability to Follow Directions: Fair Speech Pattern: Clear Hallucinations: None Delusions: Not Present Thought Process: Linear Thought Content: positive for [place] and positive for Poverty of Content Judgement: Fair Diagnostics Vital Signs (24Hr): Vital Signs - 24 hr 04/21/24 20:00 04/21/24 20:58 04/21/24 23:58 Temperature 97.0 F Pulse Rate 89 89 Respiratory Rate 15 15 Blood Pressure 143/71 H 143/71 H Pulse Oximetry 97 Oxygen Delivery Method Room Air 04/22/24 10:37 04/22/24 10:39 04/22/24 10:40 Temperature 97.0 F Pulse Rate 86 Respiratory Rate 18 Blood Pressure 149/77 H 149/77 H 149/77 H Pulse Oximetry 95 Oxygen Delivery Method Room Air 04/22/24 10:40 Temperature Pulse Rate 86 Respiratory Rate Blood Pressure 149/77 H Pulse Oximetry Oxygen Delivery Method BMI result Body Mass Index 39.1 Labs 04/17/24 03:55 04/22/24 07:39 Labs: Laboratory Results - last 48 hr 04/20/24 04/21/24 04/21/24 16:05 07:29 16:15 Creatinine 0.75 Estim Creat Clear Calc 87.9 Estimated GFR > 60 Random Vancomycin 16.0 14.9 L 04/22/24 07:39 Creatinine 0.74 Estim Creat Clear Calc 89.1 Estimated GFR > 60 Random Vancomycin Medications Medications Current Medications Acetaminophen (Acetaminophen 325 Mg Tablet) 650 mg PO Q6H PRN PRN Reason: Headache/Pain Mild Scale (1-3) Last Admin: 04/21/24 16:45 Dose: 650 mg Al Hydroxide/Mg Hydroxide (Magnesium Hydrox/Alum Hydrox 30 Ml Oral.Susp) 30 ml PO Q6H PRN PRN Reason: Heartburn/Nausea Amlodipine Besylate (Amlodipine Besylate 5 Mg Tablet) 5 mg PO DAILY [facility]; Protocol Last Admin: 04/22/24 10:39 Dose: 5 mg Apixaban (Apixaban 5 Mg Tablet) 5 mg PO BID [facility] Last Admin: 04/22/24 10:41 Dose: 5 mg Ascorbic Acid (Ascorbic Acid 500 Mg Tablet) 500 mg PO DAILY [facility] Last Admin: 04/22/24 10:41 Dose: 500 mg Atorvastatin Calcium (Atorvastatin Calcium 40 Mg Tablet) 40 mg PO DAILY [facility] Last Admin: 04/22/24 10:39 Dose: 40 mg Cyanocobalamin (Cyanocobalamin (Vitamin B-12) 1,000 Mcg Tablet) 1,000 mcg PO DAILY [facility] Last Admin: 04/22/24 10:39 Dose: 1,000 mcg Docusate Sodium (Docusate Sodium 100 Mg Capsule) 200 mg PO DAILY [facility] Last Admin: 04/22/24 10:45 Dose: Not Given Duloxetine HCl (Duloxetine Hcl 60 Mg Capsule.Dr) 60 mg PO BID [facility] Last Admin: 04/22/24 10:40 Dose: 60 mg Gabapentin (Gabapentin 300 Mg Capsule) 600 mg PO BEDTIME [facility] Last Admin: 04/21/24 20:58 Dose: 600 mg Gabapentin (Gabapentin 300 Mg Capsule) 300 mg PO DAILY [facility] Last Admin: 04/22/24 10:40 Dose: 300 mg Hydroxyzine HCl (Hydroxyzine Hcl 25 Mg Tablet) 25 mg PO Q6H PRN PRN Reason: Anxiety Last Admin: 04/19/24 23:05 Dose: 25 mg Vancomycin HCl 750 mg/ Sodium (Chloride) 265 mls @ 265 mls/hr IV Q12H [facility] Last Admin: 04/22/24 06:19 Dose: 265 mls/hr Lamotrigine (Lamotrigine 100 Mg Tablet) 300 mg PO BEDTIME [facility] Last Admin: 04/21/24 20:59 Dose: 300 mg Losartan Potassium (Losartan Potassium 25 Mg Tablet) 25 mg PO DAILY [facility]; Protocol Last Admin: 04/22/24 10:40 Dose: 25 mg Magnesium Hydroxide (Milk Of Magnesia 30 Ml Oral.Susp) 30 ml PO DAILY PRN PRN Reason: Constipation Metformin HCl (Metformin Hcl 500 Mg Tablet) 500 mg PO BID [facility] Last Admin: 04/22/24 10:40 Dose: 500 mg Metoprolol Tartrate (Metoprolol Tartrate 50 Mg Tablet) 50 mg PO BID [facility]; Protocol Last Admin: 04/22/24 10:40 Dose: 50 mg Nystatin (Nystatin Powder 15 Gm Bottle) 1 appl TOPICAL TID [facility]; Protocol Last Admin: 04/22/24 10:52 Dose: 1 appl Omeprazole (Omeprazole 40 Mg Capsule.Dr) 40 mg PO DAILY@0630 [facility] Last Admin: 04/22/24 06:22 Dose: Not Given Pharmacy Consult (Consult Rx Vancomycin Dosing) 1 each MISCELLANE DAILY PRN PRN Reason: Consult order Sodium Chloride (0.9 % Sodium Chloride Flush 10 Ml Syringe) [facility] Last Admin: 04/22/24 10:38 Dose: 5 ml Tramadol HCl (Tramadol Hcl 50 Mg Tablet) 50 mg PO Q6H PRN PRN Reason: Pain, Severe (Pain Scale 7-10) Last Admin: 04/22/24 10:38 Dose: 50 mg Trazodone HCl (Trazodone Hcl 50 Mg Tablet) 50 mg PO BEDTIME MRX1 PRN PRN Reason: Insomnia Last Admin: 04/22/24 01:11 Dose: 50 mg Vitamin D (Cholecalciferol (Vitamin D3) 25 Mcg Tablet) 25 mcg PO DAILY [facility] Last Admin: 04/22/24 10:40 Dose: 25 mcg Allergies Allergies Allergy/AdvReac Type Severity Reaction Status Date / Time mirabegron [From Myrbetriq] Allergy Hallucinati Verified 04/17/24 02:13 ons Assessment & Plan Assessment & Plan (1) Peripheral neuropathy: Status: Acute Code(s): G62.9 - Polyneuropathy, unspecified Assessment and Plan: Wound care saw wounds and they are stable. We will change cast this Friday and assess skin and fracture status (2) Trimalleolar fracture of right ankle: Qualifiers: Encounter type: subsequent encounter Fracture healing: with nonunion F racture type: closed Qualified Code(s): S82.851K - Displaced trimalleolar fracture of right lower leg, subsequent encounter for closed fracture with nonunion Status: Acute Code(s): S82.851A - Displaced trimalleolar fracture of right lower leg, initial encounter for closed fracture Assessment and Plan: Ankle is located but facture is displaced. Will assess healing status wtih radiographs after cast change on Friday the . In the meantime she should remain NWB RLE and continue abx as per ID. She should try to sit in a chair for several hours a day. Plan The patient is an elderly female with a past history of major depressive disorder, borderline personality disorder and recently ankle fracture. She was transferring to this facility after she disclosed suicidal ideation. Plan 1. Continue with psychiatric treatment. 2. Start working on discharge planning since the patient signed a 3 day notice and she has not actively suicidal. 3. Continue with suggestions from orthopedics Reason for continued inpatient stay Substantial Risk for: inability to function, rapid decompensation and med/psych decompensation Time Spent With Patient Time: Total time managing care of this patient today __20__ minutes.
[2024-04-22 16:44] LABS: Vancomycin Random 14.7 mcg/mL (15-20)
--- NOTE | 2024-04-22 17:01 | HE.PHANOTE ---
RE SLAVA Patient is within AUC goal. Continue dose of 750 mg Q12H. next level 06.15 @1600
[2024-04-22] MEDS: Acetaminophen 325 MG TABLET 650 MG PO (18:41)
[2024-04-22 20:15] VITALS: BP 135/91; PULSE 90
[2024-04-22] MEDS: Gabapentin 300 MG CAPSULE 600 MG PO (20:15)
[2024-04-22] MEDS: lamoTRIgine 100 MG TABLET 300 MG PO (20:15)
[2024-04-22 20:38] VITALS: BP 135/91; PULSE 90; RESP 18; TEMP 36; O2SAT 97
[2024-04-23] VITALS: PULSE 76; RESP 13; O2SAT 96
[2024-04-23] MEDS: 0.9 % Sodium Chloride Flush 10 ML SYRINGE 5 ML IVFLUSH ×3 (00:18→16:30)
[2024-04-23] MEDS: Omeprazole 40 MG CAPSULE.DR PO (06:28)
[2024-04-23] MEDS: vancomycin HCL 750 MG in 0.9 % Sodium Chloride 250 ML 265 MG IV ×2 (06:34→18:00)
[2024-04-23 08:00] VITALS: BP 136/74; PULSE 85; RESP 18; TEMP 36.3; O2SAT 97
[2024-04-23 08:39] LABS: Estimated Glomerular Filt Rate > 60
[2024-04-23] MEDS: Losartan Potassium 25 MG TABLET PO (09:08)
[2024-04-23] MEDS: Cyanocobalamin (Vitamin B-12) 1,000 MCG TABLET 1000 MCG PO (09:09)
[2024-04-23] MEDS: Atorvastatin Calcium 40 MG TABLET PO (09:09)
[2024-04-23] MEDS: Ascorbic Acid 500 MG TABLET PO (09:09)
[2024-04-23] MEDS: Docusate Sodium 100 MG CAPSULE 200 MG PO (09:09)
[2024-04-23] MEDS: DULoxetine HCl 60 MG CAPSULE.DR PO ×2 (09:09→20:20)
[2024-04-23] MEDS: Metoprolol Tartrate 50 MG TABLET PO ×2 (09:09→20:21)
[2024-04-23] MEDS: Cholecalciferol (Vitamin D3) 25 MCG TABLET PO (09:10)
[2024-04-23] MEDS: metFORMIN HCl 500 MG TABLET PO ×2 (09:10→20:21)
[2024-04-23] MEDS: Apixaban 5 MG TABLET PO ×2 (09:10→20:21)
[2024-04-23] MEDS: amLODIPine Besylate 5 MG TABLET PO (09:10)
[2024-04-23] MEDS: Gabapentin 300 MG CAPSULE PO (09:11)
[2024-04-23] MEDS: Nystatin Powder 15 GM BOTTLE 1 APPL TOPICAL ×2 (12:00→22:30)
--- NOTE | 2024-04-23 14:09 | P.PNPSI_ITS ---
Subjective Subjective Date of Service: 04/23/24 Reason For Visit: Depression Subjective Notes: Conditional Voluntary and 3 Day Interim History: The nursing staff reported the patient had shown flat affect slept 7 hours. As usual she got splitting behavior. On interview the patient was upset because she felt disrespected by staff. We discussed at length the need of continuation of care and she agreed that she should be better served in a subacute rehab. I explained her that it will be responsible to send her back home where she could not get the care that she needs. Mental Status Exam Mental Status Exam Patient Appearance: Appropriate Patient Orientation: Person and Situation Level of Consciousness: Awake and Appropriate Patient Behavior: Guarded and Passive Mood Description: Withdrawn Affect Description: Constricted Patient Cognition Impaired: Yes Ability to Follow Directions: Fair Speech Pattern: Clear Hallucinations: None Delusions: Not Present Thought Process: Distracted and Evasive Thought Content: positive for [place] and positive for Circumstantial Judgement: Fair Diagnostics Vital Signs (24Hr): Vital Signs - 24 hr 04/22/24 20:15 04/22/24 20:38 04/23/24 00:00 Temperature 96.8 F Pulse Rate 90 90 Respiratory Rate 18 13 Blood Pressure 135/91 H 135/91 H Pulse Oximetry 97 Oxygen Delivery Method Room Air 04/23/24 08:00 Temperature 97.4 F Pulse Rate 85 Respiratory Rate 18 Blood Pressure 136/74 Pulse Oximetry 97 Oxygen Delivery Method Room Air BMI result Body Mass Index 39.1 Labs 04/17/24 03:55 04/23/24 08:15 Labs: Laboratory Results - last 48 hr 04/21/24 04/22/24 04/22/24 16:15 07:39 16:09 Creatinine 0.74 Estim Creat Clear Calc 89.1 Estimated GFR > 60 Random Vancomycin 14.9 L 14.7 L 04/23/24 08:15 Creatinine 0.75 Estim Creat Clear Calc 88.0 Estimated GFR > 60 Random Vancomycin Medications Medications Current Medications Acetaminophen (Acetaminophen 325 Mg Tablet) 650 mg PO Q6H PRN PRN Reason: Headache/Pain Mild Scale (1-3) Last Admin: 04/22/24 18:41 Dose: 650 mg Al Hydroxide/Mg Hydroxide (Magnesium Hydrox/Alum Hydrox 30 Ml Oral.Susp) 30 ml PO Q6H PRN PRN Reason: Heartburn/Nausea Amlodipine Besylate (Amlodipine Besylate 5 Mg Tablet) 5 mg PO DAILY [facility]; Protocol Last Admin: 04/23/24 09:10 Dose: 5 mg Apixaban (Apixaban 5 Mg Tablet) 5 mg PO BID [facility] Last Admin: 04/23/24 09:10 Dose: 5 mg Ascorbic Acid (Ascorbic Acid 500 Mg Tablet) 500 mg PO DAILY [facility] Last Admin: 04/23/24 09:09 Dose: 500 mg Atorvastatin Calcium (Atorvastatin Calcium 40 Mg Tablet) 40 mg PO DAILY [facility] Last Admin: 04/23/24 09:09 Dose: 40 mg Cyanocobalamin (Cyanocobalamin (Vitamin B-12) 1,000 Mcg Tablet) 1,000 mcg PO DAILY [facility] Last Admin: 04/23/24 09:09 Dose: 1,000 mcg Docusate Sodium (Docusate Sodium 100 Mg Capsule) 200 mg PO DAILY [facility] Last Admin: 04/23/24 09:09 Dose: 200 mg Duloxetine HCl (Duloxetine Hcl 60 Mg Capsule.Dr) 60 mg PO BID [facility] Last Admin: 04/23/24 09:09 Dose: 60 mg Gabapentin (Gabapentin 300 Mg Capsule) 600 mg PO BEDTIME [facility] Last Admin: 04/22/24 20:15 Dose: 600 mg Gabapentin (Gabapentin 300 Mg Capsule) 300 mg PO DAILY [facility] Last Admin: 04/23/24 09:11 Dose: 300 mg Hydroxyzine HCl (Hydroxyzine Hcl 25 Mg Tablet) 25 mg PO Q6H PRN PRN Reason: Anxiety Last Admin: 04/19/24 23:05 Dose: 25 mg Vancomycin HCl 750 mg/ Sodium (Chloride) 265 mls @ 265 mls/hr IV Q12H [facility]PL[facility] Last Infusion: 04/23/24 07:45 Dose: Infused Lamotrigine (Lamotrigine 100 Mg Tablet) 300 mg PO BEDTIME [facility]PL[facility] Last Admin: 04/22/24 20:15 Dose: 300 mg Losartan Potassium (Losartan Potassium 25 Mg Tablet) 25 mg PO DAILY [facility]; Protocol Last Admin: 04/23/24 09:08 Dose: 25 mg Magnesium Hydroxide (Milk Of Magnesia 30 Ml Oral.Susp) 30 ml PO DAILY PRN PRN Reason: Constipation Metformin HCl (Metformin Hcl 500 Mg Tablet) 500 mg PO BID [facility] Last Admin: 04/23/24 09:10 Dose: 500 mg Metoprolol Tartrate (Metoprolol Tartrate 50 Mg Tablet) 50 mg PO BID [facility]; Protocol Last Admin: 04/23/24 09:09 Dose: 50 mg Nystatin (Nystatin Powder 15 Gm Bottle) 1 appl TOPICAL TID [facility]PLACED BY [facility]; Protocol Last Admin: 04/23/24 14:02 Dose: Not Given Omeprazole (Omeprazole 40 Mg Capsule.Dr) 40 mg PO DAILY@0630 [facility]PL[facility] Last Admin: 04/23/24 06:28 Dose: 40 mg Pharmacy Consult (Consult Rx Vancomycin Dosing) 1 each MISCELLANE DAILY PRN PRN Reason: Consult order Sodium Chloride (0.9 % Sodium Chloride Flush 10 Ml Syringe) 5 ml IVFLUSH QSHIFT REPLACED BY [facility] Last Admin: 04/23/24 09:07 Dose: 5 ml Tramadol HCl (Tramadol Hcl 50 Mg Tablet) 100 mg PO Q6H PRN PRN Reason: Pain, Severe (Pain Scale 7-10) Trazodone HCl (Trazodone Hcl 50 Mg Tablet) 50 mg PO BEDTIME MRX1 PRN PRN Reason: Insomnia Last Admin: 04/22/24 01:11 Dose: 50 mg Vitamin D (Cholecalciferol (Vitamin D3) 25 Mcg Tablet) 25 mcg PO DAILY [facility] Last Admin: 04/23/24 09:10 Dose: 25 mcg Allergies Allergies Allergy/AdvReac Type Severity Reaction Status Date / Time mirabegron [From Myrbetriq] Allergy Hallucinati Verified 04/17/24 02:13 ons Assessment & Plan Assessment & Plan (1) Peripheral neuropathy: Status: Acute Code(s): G62.9 - Polyneuropathy, unspecified Assessment and Plan: Wound care saw wounds and they are stable. We will change cast this Friday and assess skin and fracture status (2) Trimalleolar fracture of right ankle: Qualifiers: Encounter type: subsequent encounter Fracture type: closed Fracture healing: with nonunion Qualified Code(s): S82.851K - Displaced trimalleolar fracture of right lower leg, subsequent encounter for closed fracture with nonunion Status: Acute Code(s): S82.851A - Displaced trimalleolar fracture of right lower leg, initial encounter for closed fracture Assessment and Plan: Ankle is located but facture is displaced. Will assess healing status wtih radiographs after cast change on Friday the . In the meantime she should remain NWB RLE and continue abx as per ID. She should try to sit in a chair for several hours a day. Plan The patient is an elderly female with a past history of major depressive disorder, borderline personality disorder and recently ankle fracture. She was transferring to this facility after she disclosed suicidal ideation. Plan 1. Continue with psychiatric treatment. 2. Start working on discharge planning since the patient signed a 3 day notice and she has not actively suicidal. 3. Continue with suggestions from orthopedics Reason for continued inpatient stay Substantial Risk for: inability to function, rapid decompensation and med/psych decompensation Time Spent With Patient Time: Total time managing care of this patient today _20___ minutes.
[2024-04-23 19:21] VITALS: BP 115/74; PULSE 79; RESP 16; TEMP 36.2; O2SAT 98
[2024-04-23 20:00] VITALS: BP 128/78; PULSE 82; RESP 18; TEMP 36.2; O2SAT 97
[2024-04-23] MEDS: lamoTRIgine 100 MG TABLET 300 MG PO (20:20)
[2024-04-23] MEDS: Gabapentin 300 MG CAPSULE 600 MG PO (20:21)
[2024-04-23] MEDS: Acetaminophen 325 MG TABLET 650 MG PO (20:26)
[2024-04-23 23:27] VITALS: RESP 13
[2024-04-24] VITALS (7 sets, daily range): BP systolic 123–134; BP diastolic 80–81; PULSE 71–101; RESP 18–24; TEMP 36.4–36.6; O2SAT 96–97
[2024-04-24] MEDS: 0.9 % Sodium Chloride Flush 10 ML SYRINGE 5 ML IVFLUSH ×3 (00:24→16:20)
[2024-04-24] MEDS: vancomycin HCL 750 MG in 0.9 % Sodium Chloride 250 ML 265 MG IV ×2 (05:52→19:11)
[2024-04-24] MEDS: Omeprazole 40 MG CAPSULE.DR PO (05:54)
[2024-04-24 07:07] LABS: Creatinine Clr Calc Pharmacy 98.4; Estimated Glomerular Filt Rate > 60
[2024-04-24] MEDS: Losartan Potassium 25 MG TABLET PO (08:49)
[2024-04-24] MEDS: metFORMIN HCl 500 MG TABLET PO ×2 (08:49→20:14)
[2024-04-24] MEDS: DULoxetine HCl 60 MG CAPSULE.DR PO ×2 (08:49→20:14)
[2024-04-24] MEDS: Ascorbic Acid 500 MG TABLET PO (08:50)
[2024-04-24] MEDS: Cyanocobalamin (Vitamin B-12) 1,000 MCG TABLET 1000 MCG PO (08:50)
[2024-04-24] MEDS: Metoprolol Tartrate 50 MG TABLET PO ×2 (08:50→20:11)
[2024-04-24] MEDS: Apixaban 5 MG TABLET PO ×2 (08:50→20:13)
[2024-04-24] MEDS: Atorvastatin Calcium 40 MG TABLET PO (08:50)
[2024-04-24] MEDS: Gabapentin 300 MG CAPSULE PO (08:50)
[2024-04-24] MEDS: Cholecalciferol (Vitamin D3) 25 MCG TABLET PO (08:50)
[2024-04-24] MEDS: amLODIPine Besylate 5 MG TABLET PO (08:51)
[2024-04-24] MEDS: Nystatin Powder 15 GM BOTTLE 1 APPL TOPICAL ×3 (08:55→20:14)
--- NOTE | 2024-04-24 12:02 | P.PNPSI_ITS ---
Subjective Subjective Date of Service: 04/24/24 Reason For Visit: Depression Subjective Notes: Conditional Voluntary Interim History: Patient was seen and discussed in rounds today. Records and plans were reviewed. She is waiting for placement. She is on antibiotics for wounds. Her cast is coming off Friday. Eating and sleeping adequately. No complaints. No changes were made today Review of Systems Review of Systems Yes all other systems are reviewed and are negative Mental Status Exam Mental Status Exam Patient Appearance: Appropriate Patient Orientation: Person and Situation Level of Consciousness: Awake and Appropriate Patient Behavior: Guarded and Passive Mood Description: Withdrawn Affect Description: Constricted Patient Cognition Impaired: Yes Ability to Follow Directions: Fair Speech Pattern: Clear Hallucinations: None Delusions: Not Present Thought Process: Distracted and Evasive Thought Content: positive for [place] and positive for Circumstantial Judgement: Fair Diagnostics Vital Signs (24Hr): Vital Signs - 24 hr 04/23/24 19:21 04/23/24 20:00 04/23/24 23:27 Temperature 97.1 F 97.2 F Pulse Rate 79 82 Respiratory Rate 16 18 13 Blood Pressure 115/74 128/78 Pulse Oximetry 98 97 Oxygen Delivery Method Room Air Room Air 04/24/24 08:00 04/24/24 08:49 04/24/24 08:50 Temperature 97.6 F Pulse Rate 101 H 101 H Respiratory Rate 18 Blood Pressure 123/81 123/81 123/81 Pulse Oximetry 96 Oxygen Delivery Method Room Air 04/24/24 08:51 Temperature Pulse Rate Respiratory Rate Blood Pressure 123/81 Pulse Oximetry Oxygen Delivery Method BMI result Body Mass Index 39.1 Labs 04/17/24 03:55 04/24/24 06:42 Labs: Laboratory Results - last 48 hr 04/22/24 04/23/24 04/24/24 16:09 08:15 06:42 Hold Purple Top SEE NOTE Creatinine 0.75 0.67 Estim Creat Clear Calc 88.0 98.4 Estimated GFR > 60 > 60 Random Vancomycin 14.7 L Medications Medications Current Medications Acetaminophen (Acetaminophen 325 Mg Tablet) 650 mg PO Q6H PRN PRN Reason: Headache/Pain Mild Scale (1-3) Last Admin: 04/23/24 20:26 Dose: 650 mg Al Hydroxide/Mg Hydroxide (Magnesium Hydrox/Alum Hydrox 30 Ml Oral.Susp) 30 ml PO Q6H PRN PRN Reason: Heartburn/Nausea Amlodipine Besylate (Amlodipine Besylate 5 Mg Tablet) 5 mg PO DAILY [facility]; Protocol Last Admin: 04/24/24 08:51 Dose: 5 mg Apixaban (Apixaban 5 Mg Tablet) 5 mg PO BID [facility] Last Admin: 04/24/24 08:50 Dose: 5 mg Ascorbic Acid (Ascorbic Acid 500 Mg Tablet) 500 mg PO DAILY [facility] Last Admin: 04/24/24 08:50 Dose: 500 mg Atorvastatin Calcium (Atorvastatin Calcium 40 Mg Tablet) 40 mg PO DAILY [facility] Last Admin: 04/24/24 08:50 Dose: 40 mg Cyanocobalamin (Cyanocobalamin (Vitamin B-12) 1,000 Mcg Tablet) 1,000 mcg PO DAILY [facility] Last Admin: 04/24/24 08:50 Dose: 1,000 mcg Docusate Sodium (Docusate Sodium 100 Mg Capsule) 200 mg PO DAILY [facility] Last Admin: 04/24/24 09:00 Dose: Not Given Duloxetine HCl (Duloxetine Hcl 60 Mg Capsule.Dr) 60 mg PO BID [facility] Last Admin: 04/24/24 08:49 Dose: 60 mg Gabapentin (Gabapentin 300 Mg Capsule) 600 mg PO BEDTIME [facility] Last Admin: 04/23/24 20:21 Dose: 600 mg Gabapentin (Gabapentin 300 Mg Capsule) 300 mg PO DAILY [facility] Last Admin: 04/24/24 08:50 Dose: 300 mg Hydroxyzine HCl (Hydroxyzine Hcl 25 Mg Tablet) 25 mg PO Q6H PRN PRN Reason: Anxiety Last Admin: 04/19/24 23:05 Dose: 25 mg Vancomycin HCl 750 mg/ Sodium (Chloride) 265 mls @ 265 mls/hr IV Q12H [facility] Last Admin: 04/24/24 05:52 Dose: 265 mls/hr Lamotrigine (Lamotrigine 100 Mg Tablet) 300 mg PO BEDTIME [facility] Last Admin: 04/23/24 20:20 Dose: 300 mg Losartan Potassium (Losartan Potassium 25 Mg Tablet) 25 mg PO DAILY [facility]; Protocol Last Admin: 04/24/24 08:49 Dose: 25 mg Magnesium Hydroxide (Milk Of Magnesia 30 Ml Oral.Susp) 30 ml PO DAILY PRN PRN Reason: Constipation Metformin HCl (Metformin Hcl 500 Mg Tablet) 500 mg PO BID [facility] Last Admin: 04/24/24 08:49 Dose: 500 mg Metoprolol Tartrate (Metoprolol Tartrate 50 Mg Tablet) 50 mg PO BID [facility]; Protocol Last Admin: 04/24/24 08:50 Dose: 50 mg Nystatin (Nystatin Powder 15 Gm Bottle) 1 appl TOPICAL TID [facility]; Protocol Last Admin: 04/24/24 08:55 Dose: 1 appl Omeprazole (Omeprazole 40 Mg Capsule.Dr) 40 mg PO DAILY@0630 [facility] Last Admin: 04/24/24 05:54 Dose: 40 mg Pharmacy Consult (Consult Rx Vancomycin Dosing) 1 each MISCELLANE DAILY PRN PRN Reason: Consult order Sodium Chloride (0.9 % Sodium Chloride Flush 10 Ml Syringe) 5 ml IVFLUSH QSHIFT [facility] Last Admin: 04/24/24 08:58 Dose: 5 ml Tramadol HCl (Tramadol Hcl 50 Mg Tablet) 100 mg PO Q6H PRN PRN Reason: Pain, Severe (Pain Scale 7-10) Trazodone HCl (Trazodone Hcl 50 Mg Tablet) 50 mg PO BEDTIME MRX1 PRN PRN Reason: Insomnia Last Admin: 04/22/24 01:11 Dose: 50 mg Vitamin D (Cholecalciferol (Vitamin D3) 25 Mcg Tablet) 25 mcg PO DAILY [facility] Last Admin: 04/24/24 08:50 Dose: 25 mcg Allergies Allergies Allergy/AdvReac Type Severity Reaction Status Date / Time mirabegron [From Myrbetriq] Allergy Hallucinati Verified 04/17/24 02:13 ons Assessment & Plan Assessment & Plan (1) Peripheral neuropathy: Status: Acute Code(s): G62.9 - Polyneuropathy, unspecified Assessment and Plan: Wound care saw wounds and they are stable. We will change cast this Friday and assess skin and fracture status (2) Trimalleolar fracture of right ankle: Qualifiers: Encounter type: subsequent encounter Fracture type: closed Fracture healing: with nonunion Qualified Code(s): S82.851K - Displaced trimalleolar fracture of right lower leg, subsequent encounter for closed fracture with nonunion Status: Acute Code(s): S82.851A - Displaced trimalleolar fracture of right lower leg, initial encounter for closed fracture Assessment and Plan: Ankle is located but facture is displaced. Will assess healing status wtih radiographs after cast change on Friday the . In the meantime she should remain NWB RLE and continue abx as per ID. She should try to sit in a chair for several hours a day. Plan The patient is an elderly female with a past history of major depressive disorder, borderline personality disorder and recently ankle fracture. She was transferring to this facility after she disclosed suicidal ideation. Plan 1. Continue with psychiatric treatment. 2. Start working on discharge planning since the patient signed a 3 day notice and she has not actively suicidal. 3. Continue with suggestions from orthopedics 04/24: Continue current regimen and plans Reason for continued inpatient stay Substantial Risk for: rapid decompensation Time Spent With Patient Time: Total time managing care of this patient today ____ minutes.
[2024-04-24 16:52] LABS: Vancomycin Random 13.7 mcg/mL (15-20)
[2024-04-24] MEDS: Gabapentin 300 MG CAPSULE 600 MG PO (20:12)
[2024-04-24] MEDS: lamoTRIgine 100 MG TABLET 300 MG PO (20:13)
[2024-04-24] MEDS: hydrOXYzine HCL 25 MG TABLET PO (22:30)
[2024-04-24] MEDS: traZODone HCL 50 MG TABLET PO (22:30)
[2024-04-25] MEDS: 0.9 % Sodium Chloride Flush 10 ML SYRINGE 5 ML IVFLUSH ×4 (00:22→23:50)
[2024-04-25] MEDS: vancomycin HCL 750 MG in 0.9 % Sodium Chloride 250 ML 265 MG IV ×2 (05:38→18:24)
[2024-04-25] MEDS: Omeprazole 40 MG CAPSULE.DR PO (05:39)
[2024-04-25 08:00] VITALS: BP 141/87; PULSE 75; RESP 18; TEMP 36.7; O2SAT 97
[2024-04-25 08:00] LABS: Estimated Glomerular Filt Rate > 60
[2024-04-25 08:42] VITALS: BP 141/87
[2024-04-25] MEDS: amLODIPine Besylate 5 MG TABLET PO (08:42)
[2024-04-25] MEDS: Cholecalciferol (Vitamin D3) 25 MCG TABLET PO (08:42)
[2024-04-25] MEDS: Losartan Potassium 25 MG TABLET PO (08:42)
[2024-04-25 08:43] VITALS: BP 141/87; PULSE 75
[2024-04-25] MEDS: Gabapentin 300 MG CAPSULE PO (08:43)
[2024-04-25] MEDS: metFORMIN HCl 500 MG TABLET PO ×2 (08:43→19:55)
[2024-04-25] MEDS: Atorvastatin Calcium 40 MG TABLET PO (08:43)
[2024-04-25] MEDS: Ascorbic Acid 500 MG TABLET PO (08:43)
[2024-04-25] MEDS: Metoprolol Tartrate 50 MG TABLET PO ×2 (08:43→19:54)
[2024-04-25] MEDS: Apixaban 5 MG TABLET PO ×2 (08:43→19:53)
[2024-04-25] MEDS: DULoxetine HCl 60 MG CAPSULE.DR PO ×2 (08:44→19:53)
[2024-04-25] MEDS: Cyanocobalamin (Vitamin B-12) 1,000 MCG TABLET 1000 MCG PO (08:44)
[2024-04-25] MEDS: Docusate Sodium 100 MG CAPSULE 200 MG PO (08:45)
[2024-04-25] MEDS: Nystatin Powder 15 GM BOTTLE 1 APPL TOPICAL ×3 (08:47→20:34)
--- NOTE | 2024-04-25 09:00 | HO.PSYCHPN ---
Subjective Subjective Date of Service: 04/25/24 Reason For Visit: Depression Subjective Notes: Conditional Voluntary Interim History: Patient was seen and discussed in rounds today. Records and plans were reviewed. She she continues to be mostly bed-bound and is upset that she was told that she may not be able to use her iPad for a family gathering. I asked her nurse to talk to the nursing telecommunicator supervisor to see whether we can make that happen. She has her cast coming off tomorrow. No changes were made today. Review of Systems Review of Systems Yes all other systems are reviewed and are negative Mental Status Exam Mental Status Exam Narrative: In today's visit she is alert, pleasant and interactive. Normal speech. Good eye contact. Affect is appropriate but slightly perturbed because of the iPad rules and issues. No signs of psychosis. Cognitively is intact to gross observation. Judgment is intact. No SI Diagnostics Vital Signs (24Hr): Vital Signs - 24 hr 04/24/24 20:00 04/24/24 20:11 04/24/24 21:54 Temperature 97.8 F Pulse Rate 85 96 Respiratory Rate 24 H Blood Pressure 134/80 134/80 Pulse Oximetry 96 Oxygen Delivery Method Room Air 04/25/24 08:42 04/25/24 08:42 04/25/24 08:43 Temperature Pulse Rate 75 Respiratory Rate Blood Pressure 141/87 H 141/87 H 141/87 H Pulse Oximetry Oxygen Delivery Method BMI result Body Mass Index 39.1 Labs 04/17/24 03:55 04/25/24 07:43 Labs: Laboratory Results - last 48 hr 04/24/24 04/24/24 04/25/24 06:42 16:00 07:43 Hold Purple Top SEE NOTE Creatinine 0.67 0.68 Estim Creat Clear Calc 98.4 97.0 Estimated GFR > 60 > 60 Random Vancomycin 13.7 L Medications Medications Current Medications Acetaminophen (Acetaminophen 325 Mg Tablet) 650 mg PO Q6H PRN PRN Reason: Headache/Pain Mild Scale (1-3) Last Admin: 04/23/24 20:26 Dose: 650 mg Al Hydroxide/Mg Hydroxide (Magnesium Hydrox/Alum Hydrox 30 Ml Oral.Susp) 30 ml PO Q6H PRN PRN Reason: Heartburn/Nausea Amlodipine Besylate (Amlodipine Besylate 5 Mg Tablet) 5 mg PO DAILY [facility]; Protocol Last Admin: 04/25/24 08:42 Dose: 5 mg Apixaban (Apixaban 5 Mg Tablet) 5 mg PO BID [facility] Last Admin: 04/25/24 08:43 Dose: 5 mg Ascorbic Acid (Ascorbic Acid 500 Mg Tablet) 500 mg PO DAILY [facility] Last Admin: 04/25/24 08:43 Dose: 500 mg Atorvastatin Calcium (Atorvastatin Calcium 40 Mg Tablet) 40 mg PO DAILY [facility] Last Admin: 04/25/24 08:43 Dose: 40 mg Cyanocobalamin (Cyanocobalamin (Vitamin B-12) 1,000 Mcg Tablet) 1,000 mcg PO DAILY [facility] Last Admin: 04/25/24 08:44 Dose: 1,000 mcg Docusate Sodium (Docusate Sodium 100 Mg Capsule) 200 mg PO DAILY [facility] Last Admin: 04/25/24 08:45 Dose: 200 mg Duloxetine HCl (Duloxetine Hcl 60 Mg Capsule.Dr) 60 mg PO BID [facility] Last Admin: 04/25/24 08:44 Dose: 60 mg Gabapentin (Gabapentin 300 Mg Capsule) 600 mg PO BEDTIME [facility] Last Admin: 04/24/24 20:12 Dose: 600 mg Gabapentin (Gabapentin 300 Mg Capsule) 300 mg PO DAILY [facility] Last Admin: 04/25/24 08:43 Dose: 300 mg Hydroxyzine HCl (Hydroxyzine Hcl 25 Mg Tablet) 25 mg PO Q6H PRN PRN Reason: Anxiety Last Admin: 04/24/24 22:30 Dose: 25 mg Vancomycin HCl 750 mg/ Sodium (Chloride) 265 mls @ 265 mls/hr IV Q12H [facility] Last Infusion: 04/25/24 06:53 Dose: Infused Lamotrigine (Lamotrigine 100 Mg Tablet) 300 mg PO BEDTIME [facility] Last Admin: 04/24/24 20:13 Dose: 300 mg Losartan Potassium (Losartan Potassium 25 Mg Tablet) 25 mg PO DAILY [facility]; Protocol Last Admin: 04/25/24 08:42 Dose: 25 mg Magnesium Hydroxide (Milk Of Magnesia 30 Ml Oral.Susp) 30 ml PO DAILY PRN PRN Reason: Constipation Metformin HCl (Metformin Hcl 500 Mg Tablet) 500 mg PO BID [facility] Last Admin: 04/25/24 08:43 Dose: 500 mg Metoprolol Tartrate (Metoprolol Tartrate 50 Mg Tablet) 50 mg PO BID [facility]; Protocol Last Admin: 04/25/24 08:43 Dose: 50 mg Nystatin (Nystatin Powder 15 Gm Bottle) 1 appl TOPICAL TID [facility]; Protocol Last Admin: 04/25/24 08:47 Dose: 1 appl Omeprazole (Omeprazole 40 Mg Capsule.Dr) 40 mg PO DAILY@0630 [facility] Last Admin: 04/25/24 05:39 Dose: 40 mg Pharmacy Consult (Consult Rx Vancomycin Dosing) 1 each MISCELLANE DAILY PRN PRN Reason: Consult order Sodium Chloride (0.9 % Sodium Chloride Flush 10 Ml Syringe) 5 ml IVFLUSH QSHIFT [facility] Last Admin: 04/25/24 08:40 Dose: 5 ml Tramadol HCl (Tramadol Hcl 50 Mg Tablet) 100 mg PO Q6H PRN PRN Reason: Pain, Severe (Pain Scale 7-10) Trazodone HCl (Trazodone Hcl 50 Mg Tablet) 50 mg PO BEDTIME MRX1 PRN PRN Reason: Insomnia Last Admin: 04/24/24 22:30 Dose: 50 mg Vitamin D (Cholecalciferol (Vitamin D3) 25 Mcg Tablet) 25 mcg PO DAILY [facility] Last Admin: 04/25/24 08:42 Dose: 25 mcg Allergies Allergies Allergy/AdvReac Type Severity Reaction Status Date / Time mirabegron [From Myrbetriq] Allergy Hallucinati Verified 04/17/24 02:13 ons Assessment & Plan Assessment & Plan (1) Peripheral neuropathy: Status: Acute Code(s): G62.9 - Polyneuropathy, unspecified Assessment and Plan: Wound care saw wounds and they are stable. We will change cast this Friday and assess skin and fracture status (2) Trimalleolar fracture of right ankle: Qualifiers: Encounter type: subsequent encounter Fracture type: closed Fracture healing: with nonunion Qualified Code(s): S82.851K - Displaced trimalleolar fracture of right lower leg, subsequent encounter for closed fracture with nonunion Status: Acute Code(s): S82.851A - Displaced trimalleolar fracture of right lower leg, initial encounter for closed fracture Assessment and Plan: Ankle is located but facture is displaced. Will assess healing status wtih radiographs after cast change on Friday the . In the meantime she should remain NWB RLE and continue abx as per ID. She should try to sit in a chair for several hours a day. Plan The patient is an elderly female with a past history of major depressive disorder, borderline personality disorder and recently ankle fracture. She was transferring to this facility after she disclosed suicidal ideation. Plan 1. Continue with psychiatric treatment. 2. Start working on discharge planning since the patient signed a 3 day notice and she has not actively suicidal. 3. Continue with suggestions from orthopedics 04/24: Continue current regimen and plans 04/25: Continue current plans and regimen. Reason for continued inpatient stay Substantial Risk for: rapid decompensation Time Spent With Patient Time: Total time managing care of this patient today ____ minutes.
[2024-04-25 19:54] VITALS: BP 129/76; PULSE 90
[2024-04-25] MEDS: lamoTRIgine 100 MG TABLET 300 MG PO (19:56)
[2024-04-25] MEDS: Gabapentin 300 MG CAPSULE 600 MG PO (19:57)
[2024-04-25 20:00] VITALS: BP 129/76; PULSE 90; RESP 18; TEMP 36; O2SAT 97
[2024-04-25] MEDS: traZODone HCL 50 MG TABLET PO (20:23)
[2024-04-25] MEDS: traMADoL HCL 50 MG TABLET 100 MG PO (20:23)
[2024-04-25 23:30] VITALS: PULSE 84; RESP 21; O2SAT 95
[2024-04-26] MEDS: hydrOXYzine HCL 25 MG TABLET PO (04:44)
[2024-04-26] MEDS: vancomycin HCL 750 MG in 0.9 % Sodium Chloride 250 ML 265 MG IV ×2 (05:54→19:15)
[2024-04-26] MEDS: Omeprazole 40 MG CAPSULE.DR PO (06:10)
[2024-04-26] MEDS: traMADoL HCL 50 MG TABLET 100 MG PO ×3 (06:52→23:32)
[2024-04-26 08:26] VITALS: BP 138/86; PULSE 89; RESP 16; TEMP 36.3; O2SAT 94
[2024-04-26 08:51] VITALS: BP 138/86; PULSE 89
[2024-04-26] MEDS: Apixaban 5 MG TABLET PO ×2 (08:51→20:38)
[2024-04-26] MEDS: Atorvastatin Calcium 40 MG TABLET PO (08:51)
[2024-04-26] MEDS: Nystatin Powder 15 GM BOTTLE 1 APPL TOPICAL ×2 (08:51→20:33)
[2024-04-26] MEDS: Metoprolol Tartrate 50 MG TABLET PO ×2 (08:51→20:38)
[2024-04-26 08:52] VITALS: BP 138/86
[2024-04-26] MEDS: amLODIPine Besylate 5 MG TABLET PO (08:52)
[2024-04-26] MEDS: Cholecalciferol (Vitamin D3) 25 MCG TABLET PO (08:52)
[2024-04-26] MEDS: Ascorbic Acid 500 MG TABLET PO (08:52)
[2024-04-26] MEDS: metFORMIN HCl 500 MG TABLET PO ×2 (08:52→20:38)
[2024-04-26] MEDS: Gabapentin 300 MG CAPSULE PO (08:52)
[2024-04-26] MEDS: Cyanocobalamin (Vitamin B-12) 1,000 MCG TABLET 1000 MCG PO (08:52)
[2024-04-26] MEDS: DULoxetine HCl 60 MG CAPSULE.DR PO ×2 (08:52→20:37)
[2024-04-26] MEDS: Losartan Potassium 25 MG TABLET PO (08:52)
[2024-04-26] MEDS: 0.9 % Sodium Chloride Flush 10 ML SYRINGE 5 ML IVFLUSH ×3 (08:54→23:30)
[2024-04-26 09:59] LABS: Creatinine Clr Calc Pharmacy 85.7; Estimated Glomerular Filt Rate > 60
--- NOTE | 2024-04-26 12:19 | HO.PSYCHPN ---
Subjective Subjective Date of Service: 04/26/24 Reason For Visit: Depression Subjective Notes: Conditional Voluntary and 3 Day Interim History: The nursing staff reported the patient presented with variable affect, labile at times. She slept 6 hours. The psychiatric social worker reported that there are no so short subacute rehabs ready yet. On interview I explained her situation and I asked her to recanted his 3 day notice. And she recanted it. Mental Status Exam Mental Status Exam Patient Appearance: Appropriate Patient Orientation: Person and Situation Level of Consciousness: Awake and Appropriate Patient Behavior: Guarded and Passive Mood Description: Withdrawn Affect Description: Constricted and Labile Patient Cognition Impaired: Yes Ability to Follow Directions: Good Speech Pattern: Clear Hallucinations: None Delusions: Not Present Thought Process: Linear Thought Content: positive for Circumstantial Judgement: Fair Diagnostics Vital Signs (24Hr): Vital Signs - 24 hr 04/25/24 19:54 04/25/24 20:00 04/25/24 23:30 Temperature 96.8 F Pulse Rate 90 90 Respiratory Rate 18 21 H Blood Pressure 129/76 129/76 Pulse Oximetry 97 Oxygen Delivery Method Room Air 04/26/24 08:26 04/26/24 08:51 04/26/24 08:52 Temperature 97.3 F Pulse Rate 89 89 Respiratory Rate 16 Blood Pressure 138/86 138/86 138/86 Pulse Oximetry 94 Oxygen Delivery Method Room Air 04/26/24 08:52 Temperature Pulse Rate Respiratory Rate Blood Pressure 138/86 Pulse Oximetry Oxygen Delivery Method BMI result Body Mass Index 39.1 Labs 04/17/24 03:55 04/26/24 09:27 Labs: Laboratory Results - last 48 hr 04/24/24 04/25/24 04/26/24 16:00 07:43 09:27 Creatinine 0.68 0.77 Estim Creat Clear Calc 97.0 85.7 Estimated GFR > 60 > 60 Random Vancomycin 13.7 L Medications Medications Current Medications Acetaminophen (Acetaminophen 325 Mg Tablet) 650 mg PO Q6H PRN PRN Reason: Headache/Pain Mild Scale (1-3) Last Admin: 04/23/24 20:26 Dose: 650 mg Al Hydroxide/Mg Hydroxide (Magnesium Hydrox/Alum Hydrox 30 Ml Oral.Susp) 30 ml PO Q6H PRN PRN Reason: Heartburn/Nausea Amlodipine Besylate (Amlodipine Besylate 5 Mg Tablet) 5 mg PO DAILY [facility]; Protocol Last Admin: 04/26/24 08:52 Dose: 5 mg Apixaban (Apixaban 5 Mg Tablet) 5 mg PO BID [facility] Last Admin: 04/26/24 08:51 Dose: 5 mg Ascorbic Acid (Ascorbic Acid 500 Mg Tablet) 500 mg PO DAILY [facility] Last Admin: 04/26/24 08:52 Dose: 500 mg Atorvastatin Calcium (Atorvastatin Calcium 40 Mg Tablet) 40 mg PO DAILY [facility] Last Admin: 04/26/24 08:51 Dose: 40 mg Cyanocobalamin (Cyanocobalamin (Vitamin B-12) 1,000 Mcg Tablet) 1,000 mcg PO DAILY [facility] Last Admin: 04/26/24 08:52 Dose: 1,000 mcg Docusate Sodium (Docusate Sodium 100 Mg Capsule) 200 mg PO DAILY [facility] Last Admin: 04/26/24 08:56 Dose: Not Given Duloxetine HCl (Duloxetine Hcl 60 Mg Capsule.Dr) 60 mg PO BID [facility] Last Admin: 04/26/24 08:52 Dose: 60 mg Gabapentin (Gabapentin 300 Mg Capsule) 600 mg PO BEDTIME [facility] Last Admin: 04/25/24 19:57 Dose: 600 mg Gabapentin (Gabapentin 300 Mg Capsule) 300 mg PO DAILY [facility] Last Admin: 04/26/24 08:52 Dose: 300 mg Hydroxyzine HCl (Hydroxyzine Hcl 25 Mg Tablet) 25 mg PO Q6H PRN PRN Reason: Anxiety Last Admin: 04/26/24 04:44 Dose: 25 mg Vancomycin HCl 750 mg/ Sodium (Chloride) 265 mls @ 265 mls/hr IV Q12H [facility] Last Infusion: 04/26/24 07:02 Dose: Infused Lamotrigine (Lamotrigine 100 Mg Tablet) 300 mg PO BEDTIME [facility] Last Admin: 04/25/24 19:56 Dose: 300 mg Losartan Potassium (Losartan Potassium 25 Mg Tablet) 25 mg PO DAILY [facility]; Protocol Last Admin: 04/26/24 08:52 Dose: 25 mg Magnesium Hydroxide (Milk Of Magnesia 30 Ml Oral.Susp) 30 ml PO DAILY PRN PRN Reason: Constipation Metformin HCl (Metformin Hcl 500 Mg Tablet) 500 mg PO BID [facility] Last Admin: 04/26/24 08:52 Dose: 500 mg Metoprolol Tartrate (Metoprolol Tartrate 50 Mg Tablet) 50 mg PO BID [facility]; Protocol Last Admin: 04/26/24 08:51 Dose: 50 mg Nystatin (Nystatin Powder 15 Gm Bottle) 1 appl TOPICAL TID [facility]; Protocol Last Admin: 04/26/24 08:51 Dose: 1 appl Omeprazole (Omeprazole 40 Mg Capsule.Dr) 40 mg PO DAILY@0630 [facility] Last Admin: 04/26/24 06:10 Dose: 40 mg Pharmacy Consult (Consult Rx Vancomycin Dosing) 1 each MISCELLANE DAILY PRN PRN Reason: Consult order Sodium Chloride (0.9 % Sodium Chloride Flush 10 Ml Syringe) 5 ml IVFLUSH QSHIFT [facility] Last Admin: 04/26/24 08:54 Dose: 5 ml Tramadol HCl (Tramadol Hcl 50 Mg Tablet) 100 mg PO Q6H PRN PRN Reason: Pain, Severe (Pain Scale 7-10) Last Admin: 04/26/24 06:52 Dose: 100 mg Trazodone HCl (Trazodone Hcl 50 Mg Tablet) 50 mg PO BEDTIME MRX1 PRN PRN Reason: Insomnia Last Admin: 04/25/24 20:23 Dose: 50 mg Vitamin D (Cholecalciferol (Vitamin D3) 25 Mcg Tablet) 25 mcg PO DAILY [facility] Last Admin: 04/26/24 08:52 Dose: 25 mcg Allergies Allergies Allergy/AdvReac Type Severity Reaction Status Date / Time mirabegron [From Myrbetriq] Allergy Hallucinati Verified 04/17/24 02:13 ons Assessment & Plan Assessment & Plan (1) Peripheral neuropathy: Status: Acute Code(s): G62.9 - Polyneuropathy, unspecified Assessment and Plan: Wound care saw wounds and they are stable. We will change cast this Friday and assess skin and fracture status (2) Trimalleolar fracture of right ankle: Qualifiers: Encounter type: subsequent encounter Fracture healing: with nonunion Fracture type: closed Qualified Code(s): S82.851K - Displaced trimalleolar fracture of right lower leg, subsequent encounter for closed fracture with nonunion Status: Acute Code(s): S82.851A - Displaced trimalleolar fracture of right lower leg, initial encounter for closed fracture Assessment and Plan: Ankle is located but facture is displaced. Will assess healing status wtih radiographs after cast change on Friday the . In the meantime she should remain NWB RLE and continue abx as per ID. She should try to sit in a chair for several hours a day. Plan The patient is an elderly female with a past history of major depressive disorder, borderline personality disorder and recently ankle fracture. She was transferring to this facility after she disclosed suicidal ideation. Plan 1. Continue with psychiatric treatment. 2. Start working on discharge planning since the patient signed a 3 day notice and she has not actively suicidal. 3. Continue with suggestions from orthopedics 4. We asked to recanted his 3 day notice so we can find proper placement for her and she agreed on the plan. Reason for continued inpatient stay Substantial Risk for: inability to function, rapid decompensation and med/psych decompensation Time Spent With Patient Time: Total time managing care of this patient today __20__ minutes.
[2024-04-26 16:57] LABS: Vancomycin Random 14.2 mcg/mL (15-20)
[2024-04-26 20:00] VITALS: BP 139/70; PULSE 80; RESP 16; TEMP 36.4; O2SAT 98
[2024-04-26] MEDS: Acetaminophen 325 MG TABLET 650 MG PO (20:36)
[2024-04-26] MEDS: traZODone HCL 50 MG TABLET PO ×2 (20:37→23:33)
[2024-04-26] MEDS: lamoTRIgine 100 MG TABLET 300 MG PO (20:37)
[2024-04-26 20:38] VITALS: BP 139/70; PULSE 78
[2024-04-26] MEDS: Gabapentin 300 MG CAPSULE 600 MG PO (20:38)
[2024-04-26 22:28] VITALS: PULSE 78; RESP 16; O2SAT 98
[2024-04-27] MEDS: vancomycin HCL 750 MG in 0.9 % Sodium Chloride 250 ML 265 MG IV ×2 (06:11→18:03)
[2024-04-27] MEDS: Omeprazole 40 MG CAPSULE.DR PO (06:12)
[2024-04-27 10:06] VITALS: BP 131/77; PULSE 87; RESP 16; TEMP 36.1; O2SAT 97
[2024-04-27] MEDS: Gabapentin 300 MG CAPSULE PO (10:06)
[2024-04-27] MEDS: traMADoL HCL 50 MG TABLET 100 MG PO ×3 (10:06→22:46)
[2024-04-27] MEDS: Ascorbic Acid 500 MG TABLET PO (10:06)
[2024-04-27] MEDS: Apixaban 5 MG TABLET PO ×2 (10:06→19:55)
[2024-04-27] MEDS: metFORMIN HCl 500 MG TABLET PO ×2 (10:06→19:56)
[2024-04-27] MEDS: Nystatin Powder 15 GM BOTTLE 1 APPL TOPICAL ×3 (10:07→19:55)
[2024-04-27] MEDS: Cyanocobalamin (Vitamin B-12) 1,000 MCG TABLET 1000 MCG PO (10:07)
[2024-04-27] MEDS: DULoxetine HCl 60 MG CAPSULE.DR PO ×2 (10:07→19:55)
[2024-04-27] MEDS: Atorvastatin Calcium 40 MG TABLET PO (10:07)
[2024-04-27] MEDS: Cholecalciferol (Vitamin D3) 25 MCG TABLET PO (10:07)
[2024-04-27] MEDS: Metoprolol Tartrate 50 MG TABLET PO ×2 (10:09→19:56)
[2024-04-27] MEDS: Losartan Potassium 25 MG TABLET PO (10:09)
[2024-04-27] MEDS: amLODIPine Besylate 5 MG TABLET PO (10:09)
[2024-04-27] MEDS: 0.9 % Sodium Chloride Flush 10 ML SYRINGE 5 ML IVFLUSH ×2 (10:18→15:58)
[2024-04-27 10:25] LABS: Estimated Glomerular Filt Rate > 60
--- NOTE | 2024-04-27 12:28 | P.PNPSI_ITS ---
Subjective Subjective Date of Service: 04/27/24 Reason For Visit: Depression Subjective Notes: Conditional Voluntary Interim History: The nursing staff reported the patient had been in the common areas socializing with peers, splitting with staff as usual. On interview the patient denies new symptoms, waiting for subacute rehab for continuation of treatment. Denies safety concerns at this moment. Mental Status Exam Mental Status Exam Patient Appearance: Appropriate Patient Orientation: Person, Place and Situation Level of Consciousness: Awake and Appropriate Patient Behavior: Guarded and Passive Mood Description: Withdrawn Affect Description: Constricted Patient Cognition Impaired: Yes Ability to Follow Directions: Good Speech Pattern: Clear Hallucinations: None Delusions: Not Present Thought Process: Distracted and Slowed Thinking Thought Content: positive for [place] and positive for Poverty of Content Judgement: Fair Diagnostics Vital Signs (24Hr): Vital Signs - 24 hr 04/26/24 20:00 04/26/24 20:38 04/26/24 22:28 Temperature 97.6 F Pulse Rate 80 78 Respiratory Rate 16 16 Blood Pressure 139/70 139/70 Pulse Oximetry 98 Oxygen Delivery Method Room Air 04/27/24 10:06 Temperature 97.0 F Pulse Rate 87 Respiratory Rate 16 Blood Pressure 131/77 Pulse Oximetry 97 Oxygen Delivery Method Room Air BMI result Body Mass Index 39.1 Labs 04/17/24 03:55 04/27/24 09:40 Labs: Laboratory Results - last 48 hr 04/26/24 04/26/24 04/27/24 09:27 16:19 09:40 Creatinine 0.77 0.75 Estim Creat Clear Calc 85.7 88.0 Estimated GFR > 60 > 60 Random Vancomycin 14.2 L Medications Medications Current Medications Acetaminophen (Acetaminophen 325 Mg Tablet) 650 mg PO Q6H PRN PRN Reason: Headache/Pain Mild Scale (1-3) Last Admin: 04/26/24 20:36 Dose: 650 mg Al Hydroxide/Mg Hydroxide (Magnesium Hydrox/Alum Hydrox 30 Ml Oral.Susp) 30 ml PO Q6H PRN PRN Reason: Heartburn/Nausea Amlodipine Besylate (Amlodipine Besylate 5 Mg Tablet) 5 mg PO DAILY [facility]; Protocol Last Admin: 04/27/24 10:09 Dose: 5 mg Apixaban (Apixaban 5 Mg Tablet) 5 mg PO BID [facility] Last Admin: 04/27/24 10:06 Dose: 5 mg Ascorbic Acid (Ascorbic Acid 500 Mg Tablet) 500 mg PO DAILY [facility] Last Admin: 04/27/24 10:06 Dose: 500 mg Atorvastatin Calcium (Atorvastatin Calcium 40 Mg Tablet) 40 mg PO DAILY [facility] Last Admin: 04/27/24 10:07 Dose: 40 mg Cyanocobalamin (Cyanocobalamin (Vitamin B-12) 1,000 Mcg Tablet) 1,000 mcg PO DAILY [facility] Last Admin: 04/27/24 10:07 Dose: 1,000 mcg Docusate Sodium (Docusate Sodium 100 Mg Capsule) 200 mg PO DAILY [facility] Last Admin: 04/27/24 10:07 Dose: Not Given Duloxetine HCl (Duloxetine Hcl 60 Mg Capsule.) 60 mg PO BID [facility] Last Admin: 04/27/24 10:07 Dose: 60 mg Gabapentin (Gabapentin 300 Mg Capsule) 600 mg PO BEDTIME [facility] Last Admin: 04/26/24 20:38 Dose: 600 mg Gabapentin (Gabapentin 300 Mg Capsule) 300 mg PO DAILY [facility] Last Admin: 04/27/24 10:06 Dose: 300 mg Hydroxyzine HCl (Hydroxyzine Hcl 25 Mg Tablet) 25 mg PO Q6H PRN PRN Reason: Anxiety Last Admin: 04/26/24 04:44 Dose: 25 mg Vancomycin HCl 750 mg/ Sodium (Chloride) 265 mls @ 265 mls/hr IV Q12H [facility] Last Admin: 04/27/24 06:11 Dose: 265 mls/hr Lamotrigine (Lamotrigine 100 Mg Tablet) 300 mg PO BEDTIME [facility] Last Admin: 04/26/24 20:37 Dose: 300 mg Losartan Potassium (Losartan Potassium 25 Mg Tablet) 25 mg PO DAILY [facility]; Protocol Last Admin: 04/27/24 10:09 Dose: 25 mg Magnesium Hydroxide (Milk Of Magnesia 30 Ml Oral.Susp) 30 ml PO DAILY PRN PRN Reason: Constipation Metformin HCl (Metformin Hcl 500 Mg Tablet) 500 mg PO BID [facility] Last Admin: 04/27/24 10:06 Dose: 500 mg Metoprolol Tartrate (Metoprolol Tartrate 50 Mg Tablet) 50 mg PO BID [facility]; Protocol Last Admin: 04/27/24 10:09 Dose: 50 mg Nystatin (Nystatin Powder 15 Gm Bottle) 1 appl TOPICAL TID [facility]; Protocol Last Admin: 04/27/24 10:07 Dose: 1 appl Omeprazole (Omeprazole 40 Mg Capsule.) 40 mg PO DAILY@0630 [facility] Last Admin: 04/27/24 06:12 Dose: 40 mg Pharmacy Consult (Consult Rx Vancomycin Dosing) 1 each MISCELLANE DAILY PRN PRN Reason: Consult order Sodium Chloride (0.9 % Sodium Chloride Flush 10 Ml Syringe) 5 ml IVFLUSH QSHIFT [facility] Last Admin: 04/27/24 10:18 Dose: 5 ml Tramadol HCl (Tramadol Hcl 50 Mg Tablet) 100 mg PO Q6H PRN PRN Reason: Pain, Severe (Pain Scale 7-10) Last Admin: 04/27/24 10:06 Dose: 100 mg Trazodone HCl (Trazodone Hcl 50 Mg Tablet) 50 mg PO BEDTIME MRX1 PRN PRN Reason: Insomnia Last Admin: 04/26/24 23:33 Dose: 50 mg Vitamin D (Cholecalciferol (Vitamin D3) 25 Mcg Tablet) 25 mcg PO DAILY [facility] Last Admin: 04/27/24 10:07 Dose: 25 mcg Allergies Allergies Allergy/AdvReac Type Severity Reaction Status Date / Time mirabegron [From Myrbetriq] Allergy Hallucinati Verified 04/17/24 02:13 ons Assessment & Plan Assessment & Plan (1) Peripheral neuropathy: Status: Acute Code(s): G62.9 - Polyneuropathy, unspecified Assessment and Plan: Wound care saw wounds and they are stable. We will change cast this Friday and assess skin and fracture status (2) Trimalleolar fracture of right ankle: Qualifiers: Encounter type: subsequent encounter Fracture type: closed Fracture healing: with nonunion Qualified Code(s): S82.851K - Displaced trimalleolar fracture of right lower leg, subsequent encounter for closed fracture with nonunion Status: Acute Code(s): S82.851A - Displaced trimalleolar fracture of right lower leg, initial encounter for closed fracture Assessment and Plan: Ankle is located but facture is displaced. Will assess healing status wtih radiographs after cast change on Friday the . In the meantime she should remain NWB RLE and continue abx as per ID. She should try to sit in a chair for several hours a day. Plan The patient is an elderly female with a past history of major depressive disorder, borderline personality disorder and recently ankle fracture. She was transferring to this facility after she disclosed suicidal ideation. Plan 1. Continue with psychiatric treatment. 2. Start working on discharge planning since the patient signed a 3 day notice and she has not actively suicidal. 3. Continue with suggestions from orthopedics 4. We asked to recanted his 3 day notice so we can find proper placement for her and she agreed on the plan. Reason for continued inpatient stay Substantial Risk for: inability to function, rapid decompensation and med/psych decompensation Time Spent With Patient Time: Total time managing care of this patient today __20__ minutes.
--- NOTE | 2024-04-27 14:55 | P.PNOP_ITS ---
Subjective Subjective Date of Service: 04/27/24 Principal diagnosis: right ankle fracture dislocation with severe neuropathy and open wounds Interval history: Rt ankle fx/dislocation NWB no concerns Physical Exam 2 Vital Signs: Vital Signs: Last Vital Signs Temp 97.0 F 04/27/24 10:06 Pulse 87 04/27/24 10:06 Resp 16 04/27/24 10:06 BP 131/77 04/27/24 10:06 Pulse Ox 97 04/27/24 10:06 O2 Del Method Room Air 04/27/24 10:06 BMI result Body Mass Index 39.1 Extrem: Other: Right ankle skin intact No open wounds No drainage Prominent medial mal NVI Procedures Date of Service Date of Service: 04/27/24 Progress Note: A&P Assessment and plan (1) Trimalleolar fracture of right ankle: Status: Acute Assessment and Plan: New cast applied NWB xrays ordered Time Spent With Patient Time: Total time managing care of this patient today ____ minutes. Quality Stroke Does the patient have a stroke diagnosis?: No VTE Prior VTE?: No VTE Risk Level:: Medical - moderate - high VTE Device Contraindication: Treatment Not Indicated VTE Drug Contraindication: N/A - Med Ordered Casting/Splints Details: RLE short leg cast applied today [id number] Leg Cast Application Procedure code (CPT) selection complete
[2024-04-27 16:48] LABS: Vancomycin Random 15.3 mcg/mL (15-20)
[2024-04-27] MEDS: lamoTRIgine 100 MG TABLET 300 MG PO (19:55)
[2024-04-27 19:56] VITALS: BP 120/71; PULSE 84
[2024-04-27] MEDS: Acetaminophen 325 MG TABLET 650 MG PO (19:56)
[2024-04-27] MEDS: Gabapentin 300 MG CAPSULE 600 MG PO (19:56)
[2024-04-27 20:00] VITALS: BP 120/71; PULSE 82; RESP 18; TEMP 36.3; O2SAT 97
[2024-04-27 23:46] VITALS: PULSE 84; RESP 16; O2SAT 96
[2024-04-28] MEDS: 0.9 % Sodium Chloride Flush 10 ML SYRINGE 5 ML IVFLUSH ×4 (00:27→23:27)
[2024-04-28] MEDS: vancomycin HCL 750 MG in 0.9 % Sodium Chloride 250 ML 265 MG IV ×2 (06:27→18:10)
[2024-04-28] MEDS: Omeprazole 40 MG CAPSULE.DR PO (06:30)
[2024-04-28 08:00] VITALS: BP 125/83; PULSE 86; RESP 18; TEMP 36.3; O2SAT 95
[2024-04-28 08:33] VITALS: BP 125/83; PULSE 86
[2024-04-28] MEDS: Losartan Potassium 25 MG TABLET PO (08:33)
[2024-04-28] MEDS: Metoprolol Tartrate 50 MG TABLET PO ×2 (08:33→20:57)
[2024-04-28 08:34] VITALS: BP 125/83
[2024-04-28] MEDS: Ascorbic Acid 500 MG TABLET PO (08:34)
[2024-04-28] MEDS: Cholecalciferol (Vitamin D3) 25 MCG TABLET PO (08:34)
[2024-04-28] MEDS: amLODIPine Besylate 5 MG TABLET PO (08:34)
[2024-04-28] MEDS: Docusate Sodium 100 MG CAPSULE 200 MG PO (08:34)
[2024-04-28] MEDS: DULoxetine HCl 60 MG CAPSULE.DR PO ×2 (08:34→20:55)
[2024-04-28] MEDS: Atorvastatin Calcium 40 MG TABLET PO (08:35)
[2024-04-28] MEDS: Cyanocobalamin (Vitamin B-12) 1,000 MCG TABLET 1000 MCG PO (08:35)
[2024-04-28] MEDS: metFORMIN HCl 500 MG TABLET PO ×2 (08:35→20:57)
[2024-04-28] MEDS: Gabapentin 300 MG CAPSULE PO (08:35)
[2024-04-28] MEDS: Apixaban 5 MG TABLET PO ×2 (08:35→20:58)
[2024-04-28] MEDS: Nystatin Powder 15 GM BOTTLE 1 APPL TOPICAL ×3 (08:39→21:14)
[2024-04-28 08:47] LABS: Creatinine Clr Calc Pharmacy 92.9; Estimated Glomerular Filt Rate > 60
[2024-04-28] MEDS: traMADoL HCL 50 MG TABLET 100 MG PO ×2 (12:22→20:59)
--- NOTE | 2024-04-28 13:18 | HO.PSYCHPN ---
Subjective Subjective Date of Service: 04/28/24 Reason For Visit: Depression Subjective Notes: Conditional Voluntary Interim History: The staff reported the patient was seen by PT. She had been complaining regarding staff as usual. She slept well. The social services analyst reported the [facility] has already denied hit her. They are looking for placement. The occupational therapist reported that she scored 24/30 on the Buckner and 5.0 on the Timmy test. On interview the patient complains of back pain I ordered lidocaine patch for the back. Mental Status Exam Mental Status Exam Patient Appearance: Well Grooomed and Appropriate Patient Orientation: Person, Place and Situation Level of Consciousness: Awake and Appropriate Patient Behavior: Appropriate Mood Description: Calm Affect Description: Constricted Patient Cognition Impaired: Yes Ability to Follow Directions: Good Speech Pattern: Clear Hallucinations: None Delusions: Not Present Thought Process: Linear Thought Content: positive for [place] and positive for Poverty of Content Judgement: Poor Diagnostics Vital Signs (24Hr): Vital Signs - 24 hr 04/27/24 19:56 04/27/24 20:00 04/27/24 23:46 Temperature 97.4 F Pulse Rate 84 82 Respiratory Rate 18 16 Blood Pressure 120/71 120/71 Pulse Oximetry 97 Oxygen Delivery Method Room Air 04/28/24 08:00 04/28/24 08:33 04/28/24 08:33 Temperature 97.4 F Pulse Rate 86 86 Respiratory Rate 18 Blood Pressure 125/83 125/83 125/83 Pulse Oximetry 95 Oxygen Delivery Method Room Air 04/28/24 08:34 Temperature Pulse Rate Respiratory Rate Blood Pressure 125/83 Pulse Oximetry Oxygen Delivery Method BMI result Body Mass Index 39.1 Labs 04/17/24 03:55 04/28/24 08:12 Labs: Laboratory Results - last 48 hr 04/26/24 04/27/24 04/27/24 16:19 09:40 16:06 Creatinine 0.75 Estim Creat Clear Calc 88.0 Estimated GFR > 60 Random Vancomycin 14.2 L 15.3 04/28/24 08:12 Creatinine 0.71 Estim Creat Clear Calc 92.9 Estimated GFR > 60 Random Vancomycin Medications Medications Current Medications Acetaminophen (Acetaminophen 325 Mg Tablet) 650 mg PO Q6H PRN PRN Reason: Headache/Pain Mild Scale (1-3) Last Admin: 04/27/24 19:56 Dose: 650 mg Al Hydroxide/Mg Hydroxide (Magnesium Hydrox/Alum Hydrox 30 Ml Oral.Susp) 30 ml PO Q6H PRN PRN Reason: Heartburn/Nausea Amlodipine Besylate (Amlodipine Besylate 5 Mg Tablet) 5 mg PO DAILY [facility]; Protocol Last Admin: 04/28/24 08:34 Dose: 5 mg Apixaban (Apixaban 5 Mg Tablet) 5 mg PO BID [facility] Last Admin: 04/28/24 08:35 Dose: 5 mg Ascorbic Acid (Ascorbic Acid 500 Mg Tablet) 500 mg PO DAILY [facility] Last Admin: 04/28/24 08:34 Dose: 500 mg Atorvastatin Calcium (Atorvastatin Calcium 40 Mg Tablet) 40 mg PO DAILY [facility] Last Admin: 04/28/24 08:35 Dose: 40 mg Cyanocobalamin (Cyanocobalamin (Vitamin B-12) 1,000 Mcg Tablet) 1,000 mcg PO DAILY [facility] Last Admin: 04/28/24 08:35 Dose: 1,000 mcg Docusate Sodium (Docusate Sodium 100 Mg Capsule) 200 mg PO DAILY [facility] Last Admin: 04/28/24 08:34 Dose: 200 mg Duloxetine HCl (Duloxetine Hcl 60 Mg Capsule.Dr) 60 mg PO BID [facility] Last Admin: 04/28/24 08:34 Dose: 60 mg Gabapentin (Gabapentin 300 Mg Capsule) 600 mg PO BEDTIME [facility] Last Admin: 04/27/24 19:56 Dose: 600 mg Gabapentin (Gabapentin 300 Mg Capsule) 300 mg PO DAILY [facility] Last Admin: 04/28/24 08:35 Dose: 300 mg Hydroxyzine HCl (Hydroxyzine Hcl 25 Mg Tablet) 25 mg PO Q6H PRN PRN Reason: Anxiety Last Admin: 04/26/24 04:44 Dose: 25 mg Vancomycin HCl 750 mg/ Sodium (Chloride) 265 mls @ 265 mls/hr IV Q12H [facility] Last Admin: 04/28/24 06:27 Dose: 265 mls/hr Lamotrigine (Lamotrigine 100 Mg Tablet) 300 mg PO BEDTIME [facility] Last Admin: 04/27/24 19:55 Dose: 300 mg Losartan Potassium (Losartan Potassium 25 Mg Tablet) 25 mg PO DAILY [facility]; Protocol Last Admin: 04/28/24 08:33 Dose: 25 mg Magnesium Hydroxide (Milk Of Magnesia 30 Ml Oral.Susp) 30 ml PO DAILY PRN PRN Reason: Constipation Metformin HCl (Metformin Hcl 500 Mg Tablet) 500 mg PO BID [facility] Last Admin: 04/28/24 08:35 Dose: 500 mg Metoprolol Tartrate (Metoprolol Tartrate 50 Mg Tablet) 50 mg PO BID [facility]; Protocol Last Admin: 04/28/24 08:33 Dose: 50 mg Nystatin (Nystatin Powder 15 Gm Bottle) 1 appl TOPICAL TID [facility]; Protocol Last Admin: 04/28/24 08:39 Dose: 1 appl Omeprazole (Omeprazole 40 Mg Capsule.Dr) 40 mg PO DAILY@0630 [facility] Last Admin: 04/28/24 06:30 Dose: 40 mg Pharmacy Consult (Consult Rx Vancomycin Dosing) 1 each MISCELLANE DAILY PRN PRN Reason: Consult order Sodium Chloride (0.9 % Sodium Chloride Flush 10 Ml Syringe) 5 ml IVFLUSH QSHIFT [facility] Last Admin: 04/28/24 08:35 Dose: 5 ml Tramadol HCl (Tramadol Hcl 50 Mg Tablet) 100 mg PO Q6H PRN PRN Reason: Pain, Severe (Pain Scale 7-10) Last Admin: 04/28/24 12:22 Dose: 100 mg Trazodone HCl (Trazodone Hcl 50 Mg Tablet) 50 mg PO BEDTIME MRX1 PRN PRN Reason: Insomnia Last Admin: 04/26/24 23:33 Dose: 50 mg Vitamin D (Cholecalciferol (Vitamin D3) 25 Mcg Tablet) 25 mcg PO DAILY [facility] Last Admin: 04/28/24 08:34 Dose: 25 mcg Allergies Allergies Allergy/AdvReac Type Severity Reaction Status Date / Time mirabegron [From Myrbetriq] Allergy Hallucinati Verified 04/17/24 02:13 ons Assessment & Plan Assessment & Plan (1) Trimalleolar fracture of right ankle: Qualifiers: Encounter type: subsequent encounter Fracture type: closed Fracture healing: with nonunion Qualified Code(s): S82.851K - Displaced trimalleolar fracture of right lower leg, subsequent encounter for closed fracture with nonunion Status: Acute Code(s): S82.851A - Displaced trimalleolar fracture of right lower leg, initial encounter for closed fracture Assessment and Plan: New cast applied NWB xrays ordered Plan The patient is a 73-year-old female with a past history of borderline personality disorder, major depressive disorder and recently admitted for suicidality ideation. The patient recently had several stressors such as a fracture in her ankle that required several surgeries. Plan 1. Continue with psychiatric medications. 2. Continue with follow-up as per surgery. 3. Start lidocaine patch for back pain. 4. Discharge to subacute rehab to continue treatment. Waiting for placement. Reason for continued inpatient stay Substantial Risk for: inability to function, rapid decompensation and med/psych decompensation Time Spent With Patient Time: Total time managing care of this patient today __20__ minutes.
[2024-04-28] MEDS: Lidocaine 4 % Patch ADH..PATCH 1 PATCH TRANSDERMA (15:09)
[2024-04-28 20:00] VITALS: BP 115/63; PULSE 79; RESP 18; TEMP 36.2; O2SAT 95
[2024-04-28] MEDS: Gabapentin 300 MG CAPSULE 600 MG PO (20:56)
[2024-04-28] MEDS: lamoTRIgine 100 MG TABLET 300 MG PO (20:56)
[2024-04-28 20:57] VITALS: BP 115/63; PULSE 79
[2024-04-28] MEDS: traZODone HCL 50 MG TABLET PO (20:58)
[2024-04-28 23:23] VITALS: PULSE 88; RESP 14; O2SAT 93
[2024-04-29] MEDS: vancomycin HCL 750 MG in 0.9 % Sodium Chloride 250 ML 265 MG IV ×2 (06:40→17:52)
[2024-04-29] MEDS: Omeprazole 40 MG CAPSULE.DR PO (06:42)
[2024-04-29 07:00] VITALS: BMI 38.4
[2024-04-29 08:00] VITALS: BP 116/61; PULSE 80; RESP 18; TEMP 36.8; O2SAT 95
[2024-04-29 08:34] LABS: Creatinine Clr Calc Pharmacy 95.6; Estimated Glomerular Filt Rate > 60
[2024-04-29] MEDS: 0.9 % Sodium Chloride Flush 10 ML SYRINGE 5 ML IVFLUSH ×3 (09:22→23:22)
[2024-04-29] MEDS: Cyanocobalamin (Vitamin B-12) 1,000 MCG TABLET 1000 MCG PO (09:45)
[2024-04-29] MEDS: Ascorbic Acid 500 MG TABLET PO (09:45)
[2024-04-29] MEDS: Gabapentin 300 MG CAPSULE PO (09:45)
[2024-04-29 09:46] VITALS: BP 116/61
[2024-04-29] MEDS: metFORMIN HCl 500 MG TABLET PO ×2 (09:46→20:51)
[2024-04-29] MEDS: amLODIPine Besylate 5 MG TABLET PO (09:46)
[2024-04-29] MEDS: DULoxetine HCl 60 MG CAPSULE.DR PO ×2 (09:46→20:49)
[2024-04-29] MEDS: Atorvastatin Calcium 40 MG TABLET PO (09:46)
[2024-04-29] MEDS: Losartan Potassium 25 MG TABLET PO (09:46)
[2024-04-29] MEDS: Cholecalciferol (Vitamin D3) 25 MCG TABLET PO (09:46)
[2024-04-29] MEDS: Apixaban 5 MG TABLET PO ×2 (09:46→20:51)
[2024-04-29 09:47] VITALS: BP 116/61; PULSE 80
[2024-04-29] MEDS: Metoprolol Tartrate 50 MG TABLET PO ×2 (09:47→20:52)
[2024-04-29] MEDS: Lidocaine 4 % Patch ADH..PATCH 1 PATCH TRANSDERMA (09:50)
[2024-04-29] MEDS: Nystatin Powder 15 GM BOTTLE 1 APPL TOPICAL ×3 (09:51→20:55)
--- NOTE | 2024-04-29 12:38 | HO.PSYCHPN ---
Subjective Subjective Date of Service: 04/29/24 Reason For Visit: Depression Subjective Notes: Conditional Voluntary Interim History: The nursing staff reported that the patient has been visible in the unit, on a fabiano-chair, complaint of pain and had Tramadol PRN. She slept 7 hours. On interview, she denies new symptoms, stable. Mental Status Exam Mental Status Exam Patient Appearance: Well Grooomed Patient Orientation: Person and Situation Level of Consciousness: Awake and Appropriate Patient Behavior: Guarded and Passive Mood Description: Withdrawn Affect Description: Constricted Patient Cognition Impaired: Yes Ability to Follow Directions: Good Speech Pattern: Clear Hallucinations: None Delusions: Not Present Thought Process: Distracted and Slowed Thinking Thought Content: positive for [place] and positive for Poverty of Content Judgement: Poor Diagnostics Vital Signs (24Hr): Vital Signs - 24 hr 04/28/24 20:00 04/28/24 20:57 04/28/24 23:23 Temperature 97.2 F Pulse Rate 79 79 Respiratory Rate 18 14 Blood Pressure 115/63 115/63 Pulse Oximetry 95 Oxygen Delivery Method Room Air 04/29/24 08:00 04/29/24 09:46 04/29/24 09:46 Temperature 98.3 F Pulse Rate 80 Respiratory Rate 18 Blood Pressure 116/61 116/61 116/61 Pulse Oximetry 95 Oxygen Delivery Method Room Air 04/29/24 09:47 Temperature Pulse Rate 80 Respiratory Rate Blood Pressure 116/61 Pulse Oximetry Oxygen Delivery Method BMI result Body Mass Index 39.1 Labs 04/17/24 03:55 04/29/24 07:55 Labs: Laboratory Results - last 48 hr 04/27/24 04/28/24 04/29/24 16:06 08:12 07:55 Creatinine 0.71 0.69 Estim Creat Clear Calc 92.9 95.6 Estimated GFR > 60 > 60 Random Vancomycin 15.3 Medications Medications Current Medications Acetaminophen (Acetaminophen 325 Mg Tablet) 650 mg PO Q6H PRN PRN Reason: Headache/Pain Mild Scale (1-3) Last Admin: 04/27/24 19:56 Dose: 650 mg Al Hydroxide/Mg Hydroxide (Magnesium Hydrox/Alum Hydrox 30 Ml Oral.Susp) 30 ml PO Q6H PRN PRN Reason: Heartburn/Nausea Amlodipine Besylate (Amlodipine Besylate 5 Mg Tablet) 5 mg PO DAILY [facility]; Protocol Last Admin: 04/29/24 09:46 Dose: 5 mg Apixaban (Apixaban 5 Mg Tablet) 5 mg PO BID [facility] Last Admin: 04/29/24 09:46 Dose: 5 mg Ascorbic Acid (Ascorbic Acid 500 Mg Tablet) 500 mg PO DAILY [facility] Last Admin: 04/29/24 09:45 Dose: 500 mg Atorvastatin Calcium (Atorvastatin Calcium 40 Mg Tablet) 40 mg PO DAILY [facility] Last Admin: 04/29/24 09:46 Dose: 40 mg Cyanocobalamin (Cyanocobalamin (Vitamin B-12) 1,000 Mcg Tablet) 1,000 mcg PO DAILY [facility] Last Admin: 04/29/24 09:45 Dose: 1,000 mcg Docusate Sodium (Docusate Sodium 100 Mg Capsule) 200 mg PO DAILY [facility] Last Admin: 04/29/24 09:52 Dose: Not Given Duloxetine HCl (Duloxetine Hcl 60 Mg Capsule.Dr) 60 mg PO BID [facility] Last Admin: 04/29/24 09:46 Dose: 60 mg Gabapentin (Gabapentin 300 Mg Capsule) 600 mg PO BEDTIME [facility] Last Admin: 04/28/24 20:56 Dose: 600 mg Gabapentin (Gabapentin 300 Mg Capsule) 300 mg PO DAILY [facility] Last Admin: 04/29/24 09:45 Dose: 300 mg Hydroxyzine HCl (Hydroxyzine Hcl 25 Mg Tablet) 25 mg PO Q6H PRN PRN Reason: Anxiety Last Admin: 04/26/24 04:44 Dose: 25 mg Vancomycin HCl 750 mg/ Sodium (Chloride) 265 mls @ 265 mls/hr IV Q12H [facility] Last Admin: 04/29/24 06:40 Dose: 265 mls/hr Lamotrigine (Lamotrigine 100 Mg Tablet) 300 mg PO BEDTIME [facility] Last Admin: 04/28/24 20:56 Dose: 300 mg Lidocaine (Lidocaine 4 % Patch Adh..Patch) 1 patch TRANSDERMA DAILY [facility]; Protocol Last Admin: 04/29/24 09:50 Dose: 1 patch Losartan Potassium (Losartan Potassium 25 Mg Tablet) 25 mg PO DAILY [facility]; Protocol Last Admin: 04/29/24 09:46 Dose: 25 mg Magnesium Hydroxide (Milk Of Magnesia 30 Ml Oral.Susp) 30 ml PO DAILY PRN PRN Reason: Constipation Metformin HCl (Metformin Hcl 500 Mg Tablet) 500 mg PO BID [facility] Last Admin: 04/29/24 09:46 Dose: 500 mg Metoprolol Tartrate (Metoprolol Tartrate 50 Mg Tablet) 50 mg PO BID [facility]; Protocol Last Admin: 04/29/24 09:47 Dose: 50 mg Nystatin (Nystatin Powder 15 Gm Bottle) 1 appl TOPICAL TID [facility]; Protocol Last Admin: 04/29/24 09:51 Dose: 1 appl Omeprazole (Omeprazole 40 Mg Capsule.Dr) 40 mg PO DAILY@0630 [facility] Last Admin: 04/29/24 06:42 Dose: 40 mg Pharmacy Consult (Consult Rx Vancomycin Dosing) 1 each MISCELLANE DAILY PRN PRN Reason: Consult order Sodium Chloride (0.9 % Sodium Chloride Flush 10 Ml Syringe) 5 ml IVFLUSH QSHIFT [facility] Last Admin: 04/29/24 09:22 Dose: 5 ml Tramadol HCl (Tramadol Hcl 50 Mg Tablet) 100 mg PO Q6H PRN PRN Reason: Pain, Severe (Pain Scale 7-10) Last Admin: 04/28/24 20:59 Dose: 100 mg Trazodone HCl (Trazodone Hcl 50 Mg Tablet) 50 mg PO BEDTIME MRX1 PRN PRN Reason: Insomnia Last Admin: 04/28/24 20:58 Dose: 50 mg Vitamin D (Cholecalciferol (Vitamin D3) 25 Mcg Tablet) 25 mcg PO DAILY [facility] Last Admin: 04/29/24 09:46 Dose: 25 mcg Allergies Allergies Allergy/AdvReac Type Severity Reaction Status Date / Time mirabegron [From Myrbetriq] Allergy Hallucinati Verified 04/17/24 02:13 ons Assessment & Plan Assessment & Plan (1) Trimalleolar fracture of right ankle: Qualifiers: Encounter type: subsequent encounter Fracture healing: with nonunion Fracture type: closed Qualified Code(s): S82.851K - Displaced trimalleolar fracture of right lower leg, subsequent encounter for closed fracture with nonunion Status: Acute Code(s): S82.851A - Displaced trimalleolar fracture of right lower leg, initial encounter for closed fracture Assessment and Plan: New cast applied NWB xrays ordered Plan The patient is a 73-year-old female with a past history of borderline personality disorder, major depressive disorder and recently admitted for suicidality ideation. The patient recently had several stressors such as a fracture in her ankle that required several surgeries. Plan 1. Continue with psychiatric medications. 2. Continue with follow-up as per surgery. 3. Start lidocaine patch for back pain. 4. Discharge to subacute rehab to continue treatment. Waiting for placement. Reason for continued inpatient stay Substantial Risk for: inability to function, rapid decompensation and med/psych decompensation Time Spent With Patient Time: Total time managing care of this patient today __20__ minutes.
[2024-04-29] MEDS: hydrOXYzine HCL 25 MG TABLET PO (16:37)
[2024-04-29 16:50] LABS: Vancomycin Random 13.6 mcg/mL (15-20)
[2024-04-29 20:00] VITALS: BP 129/62; PULSE 75; RESP 16; TEMP 36.6; O2SAT 98
[2024-04-29] MEDS: lamoTRIgine 100 MG TABLET 300 MG PO (20:50)
[2024-04-29] MEDS: Gabapentin 300 MG CAPSULE 600 MG PO (20:50)
[2024-04-29] MEDS: traZODone HCL 50 MG TABLET PO (20:51)
[2024-04-29 20:52] VITALS: BP 129/62; PULSE 75
[2024-04-29] MEDS: traMADoL HCL 50 MG TABLET 100 MG PO (20:53)
[2024-04-29 23:20] VITALS: PULSE 83; RESP 23; O2SAT 97
[2024-04-30] MEDS: hydrOXYzine HCL 25 MG TABLET PO (01:10)
[2024-04-30] MEDS: traZODone HCL 50 MG TABLET PO ×2 (01:10→20:28)
[2024-04-30] MEDS: Omeprazole 40 MG CAPSULE.DR PO (05:58)
[2024-04-30] MEDS: vancomycin HCL 750 MG in 0.9 % Sodium Chloride 250 ML 265 MG IV ×2 (06:03→17:53)
[2024-04-30 08:00] VITALS: BP 120/60; PULSE 89; RESP 18; TEMP 36.4; O2SAT 94
[2024-04-30 08:22] LABS: Creatinine Clr Calc Pharmacy 93.3; Estimated Glomerular Filt Rate > 60
[2024-04-30] MEDS: Gabapentin 300 MG CAPSULE PO (08:41)
[2024-04-30] MEDS: Atorvastatin Calcium 40 MG TABLET PO (08:41)
[2024-04-30] MEDS: Apixaban 5 MG TABLET PO ×2 (08:41→20:27)
[2024-04-30] MEDS: Cyanocobalamin (Vitamin B-12) 1,000 MCG TABLET 1000 MCG PO (08:41)
[2024-04-30] MEDS: Metoprolol Tartrate 50 MG TABLET PO ×2 (08:41→20:28)
[2024-04-30] MEDS: Losartan Potassium 25 MG TABLET PO (08:41)
[2024-04-30] MEDS: amLODIPine Besylate 5 MG TABLET PO (08:42)
[2024-04-30] MEDS: metFORMIN HCl 500 MG TABLET PO ×2 (08:42→20:32)
[2024-04-30] MEDS: Ascorbic Acid 500 MG TABLET PO (08:42)
[2024-04-30] MEDS: Nystatin Powder 15 GM BOTTLE 1 APPL TOPICAL ×2 (08:42→16:00)
[2024-04-30] MEDS: Cholecalciferol (Vitamin D3) 25 MCG TABLET PO (08:42)
[2024-04-30] MEDS: DULoxetine HCl 60 MG CAPSULE.DR PO ×2 (08:42→20:31)
[2024-04-30] MEDS: Lidocaine 4 % Patch ADH..PATCH 1 PATCH TRANSDERMA (08:42)
[2024-04-30] MEDS: 0.9 % Sodium Chloride Flush 10 ML SYRINGE 5 ML IVFLUSH ×2 (08:48→16:00)
[2024-04-30 11:12] VITALS: BP 120/60; PULSE 89; O2SAT 94
--- NOTE | 2024-04-30 13:36 | HO.PSYCHPN ---
Subjective Subjective Date of Service: 04/30/24 Reason For Visit: Depression Subjective Notes: Conditional Voluntary Interim History: The nursing staff reported the patient had been cooperative and pleasant in the morning but more agitated and labile in the afternoon.? She received her vancomycin IV as usual and she slept 6 hours with her CPAP machine.? The occupational therapist reported that it was very difficult to help her on the transference from the bed to the wheelchair, she is cooperative with physical therapy in the afternoon.? On interview the patient denies new symptoms waiting for placement at a subacute rehab. Mental Status Exam Mental Status Exam Patient Appearance: Appropriate Patient Orientation: Person and Situation Level of Consciousness: Awake Patient Behavior: Guarded and Passive Mood Description: Withdrawn Affect Description: Constricted Patient Cognition Impaired: Yes Ability to Follow Directions: Good Speech Pattern: Clear Hallucinations: None Delusions: Not Present Thought Process: Distracted Thought Content: positive for [place] and positive for Perseveration Judgement: Fair Diagnostics Vital Signs (24Hr): Vital Signs - 24 hr 04/29/24 20:00 04/29/24 20:52 04/29/24 23:20 Temperature 97.9 F Pulse Rate 75 75 Respiratory Rate 16 23 H Blood Pressure 129/62 129/62 Pulse Oximetry 98 Oxygen Delivery Method Room Air 04/30/24 08:00 04/30/24 11:12 Temperature 97.6 F Pulse Rate 89 89 Respiratory Rate 18 Blood Pressure 120/60 120/60 Pulse Oximetry 94 94 Oxygen Delivery Method Room Air BMI result Body Mass Index 38.4 Labs 04/17/24 03:55 04/30/24 08:03 Labs: Laboratory Results - last 48 hr 04/29/24 04/29/24 04/30/24 07:55 16:17 08:03 Creatinine 0.69 0.70 Estim Creat Clear Calc 95.6 93.3 Estimated GFR > 60 > 60 Random Vancomycin 13.6 L Medications Medications Current Medications Acetaminophen (Acetaminophen 325 Mg Tablet) 650 mg PO Q6H PRN PRN Reason: Headache/Pain Mild Scale (1-3) Last Admin: 04/27/24 19:56 Dose: 650 mg Al Hydroxide/Mg Hydroxide (Magnesium Hydrox/Alum Hydrox 30 Ml Oral.Susp) 30 ml PO Q6H PRN PRN Reason: Heartburn/Nausea Amlodipine Besylate (Amlodipine Besylate 5 Mg Tablet) 5 mg PO DAILY [facility]; Protocol Last Admin: 04/30/24 08:42 Dose: 5 mg Apixaban (Apixaban 5 Mg Tablet) 5 mg PO BID [facility] Last Admin: 04/30/24 08:41 Dose: 5 mg Ascorbic Acid (Ascorbic Acid 500 Mg Tablet) 500 mg PO DAILY [facility] Last Admin: 04/30/24 08:42 Dose: 500 mg Atorvastatin Calcium (Atorvastatin Calcium 40 Mg Tablet) 40 mg PO DAILY [facility] Last Admin: 04/30/24 08:41 Dose: 40 mg Cyanocobalamin (Cyanocobalamin (Vitamin B-12) 1,000 Mcg Tablet) 1,000 mcg PO DAILY [facility] Last Admin: 04/30/24 08:41 Dose: 1,000 mcg Docusate Sodium (Docusate Sodium 100 Mg Capsule) 200 mg PO DAILY [facility] Last Admin: 04/30/24 08:41 Dose: Not Given Duloxetine HCl (Duloxetine Hcl 60 Mg Capsule.Dr) 60 mg PO BID [facility] Last Admin: 04/30/24 08:42 Dose: 60 mg Gabapentin (Gabapentin 300 Mg Capsule) 600 mg PO BEDTIME [facility] Last Admin: 04/29/24 20:50 Dose: 600 mg Gabapentin (Gabapentin 300 Mg Capsule) 300 mg PO DAILY [facility] Last Admin: 04/30/24 08:41 Dose: 300 mg Hydroxyzine HCl (Hydroxyzine Hcl 25 Mg Tablet) 25 mg PO Q6H PRN PRN Reason: Anxiety Last Admin: 04/30/24 01:10 Dose: 25 mg Vancomycin HCl 750 mg/ Sodium (Chloride) 265 mls @ 265 mls/hr IV Q12H [facility] Last Infusion: 04/30/24 07:11 Dose: Infused Lamotrigine (Lamotrigine 100 Mg Tablet) 300 mg PO BEDTIME [facility] Last Admin: 04/29/24 20:50 Dose: 300 mg Lidocaine (Lidocaine 4 % Patch Adh..Patch) 1 patch TRANSDERMA DAILY [facility]; Protocol Last Admin: 04/30/24 08:42 Dose: 1 patch Losartan Potassium (Losartan Potassium 25 Mg Tablet) 25 mg PO DAILY [facility]; Protocol Last Admin: 04/30/24 08:41 Dose: 25 mg Magnesium Hydroxide (Milk Of Magnesia 30 Ml Oral.Susp) 30 ml PO DAILY PRN PRN Reason: Constipation Metformin HCl (Metformin Hcl 500 Mg Tablet) 500 mg PO BID [facility] Last Admin: 04/30/24 08:42 Dose: 500 mg Metoprolol Tartrate (Metoprolol Tartrate 50 Mg Tablet) 50 mg PO BID [facility]; Protocol Last Admin: 04/30/24 08:41 Dose: 50 mg Nystatin (Nystatin Powder 15 Gm Bottle) 1 appl TOPICAL TID [facility]; Protocol Last Admin: 04/30/24 08:42 Dose: 1 appl Omeprazole (Omeprazole 40 Mg Capsule.Dr) 40 mg PO DAILY@0630 [facility] Last Admin: 04/30/24 05:58 Dose: 40 mg Pharmacy Consult (Consult Rx Vancomycin Dosing) 1 each MISCELLANE DAILY PRN PRN Reason: Consult order Sodium Chloride (0.9 % Sodium Chloride Flush 10 Ml Syringe) 5 ml IVFLUSH QSHIFT [facility] Last Admin: 04/30/24 08:48 Dose: 5 ml Tramadol HCl (Tramadol Hcl 50 Mg Tablet) 100 mg PO Q6H PRN PRN Reason: Pain, Severe (Pain Scale 7-10) Last Admin: 04/29/24 20:53 Dose: 100 mg Trazodone HCl (Trazodone Hcl 50 Mg Tablet) 50 mg PO BEDTIME MRX1 PRN PRN Reason: Insomnia Last Admin: 04/30/24 01:10 Dose: 50 mg Vitamin D (Cholecalciferol (Vitamin D3) 25 Mcg Tablet) 25 mcg PO DAILY [facility] Last Admin: 04/30/24 08:42 Dose: 25 mcg Allergies Allergies Allergy/AdvReac Type Severity Reaction Status Date / Time mirabegron [From Myrbetriq] Allergy Hallucinati Verified 04/17/24 02:13 ons Assessment & Plan Assessment & Plan (1) Trimalleolar fracture of right ankle: Qualifiers: Encounter type: subsequent encounter Fracture healing: with nonunion Fracture type: closed Qualified Code(s): S82.851K - Displaced trimalleolar fracture of right lower leg, subsequent encounter for closed fracture with nonunion Status: Acute Code(s): S82.851A - Displaced trimalleolar fracture of right lower leg, initial encounter for closed fracture Assessment and Plan: New cast applied NWB xrays ordered Plan The patient is a 73-year-old female with a past history of borderline personality disorder, major depressive disorder and recently admitted for suicidality ideation. The patient recently had several stressors such as a fracture in her ankle that required several surgeries. Plan 1. Continue with psychiatric medications. 2. Continue with follow-up as per surgery. 3. Start lidocaine patch for back pain. 4. Discharge to subacute rehab to continue treatment. Waiting for placement. Reason for continued inpatient stay Substantial Risk for: inability to function, rapid decompensation and med/psych decompensation Time Spent With Patient Time: Total time managing care of this patient today __20__ minutes.
[2024-04-30 19:25] VITALS: BP 106/62; PULSE 78; TEMP 36.6; O2SAT 96
[2024-04-30] MEDS: traMADoL HCL 50 MG TABLET 100 MG PO (20:28)
[2024-04-30] MEDS: lamoTRIgine 100 MG TABLET 300 MG PO (20:29)
[2024-04-30] MEDS: Acetaminophen 325 MG TABLET 650 MG PO (20:30)
[2024-04-30] MEDS: Gabapentin 300 MG CAPSULE 600 MG PO (20:31)
[2024-04-30 23:54] VITALS: PULSE 88; RESP 18; O2SAT 95
[2024-05-01] MEDS: 0.9 % Sodium Chloride Flush 10 ML SYRINGE 5 ML IVFLUSH ×3 (00:05→15:48)
[2024-05-01] MEDS: vancomycin HCL 750 MG in 0.9 % Sodium Chloride 250 ML 265 MG IV (05:40)
[2024-05-01] MEDS: Omeprazole 40 MG CAPSULE.DR PO (07:05)
[2024-05-01 08:31] VITALS: BP 124/72; PULSE 74; RESP 16; TEMP 36.1; O2SAT 97
[2024-05-01 08:41] VITALS: BP 124/72; PULSE 74
[2024-05-01] MEDS: amLODIPine Besylate 5 MG TABLET PO (08:41)
[2024-05-01] MEDS: Metoprolol Tartrate 50 MG TABLET PO ×2 (08:41→20:20)
[2024-05-01] MEDS: Gabapentin 300 MG CAPSULE PO (08:41)
[2024-05-01 08:42] VITALS: BP 124/72
[2024-05-01] MEDS: metFORMIN HCl 500 MG TABLET PO ×2 (08:42→20:18)
[2024-05-01] MEDS: Atorvastatin Calcium 40 MG TABLET PO (08:42)
[2024-05-01] MEDS: Losartan Potassium 25 MG TABLET PO (08:42)
[2024-05-01] MEDS: Apixaban 5 MG TABLET PO ×2 (08:42→20:19)
[2024-05-01] MEDS: Ascorbic Acid 500 MG TABLET PO (08:42)
[2024-05-01] MEDS: Cholecalciferol (Vitamin D3) 25 MCG TABLET PO (08:42)
[2024-05-01] MEDS: Cyanocobalamin (Vitamin B-12) 1,000 MCG TABLET 1000 MCG PO (08:42)
[2024-05-01] MEDS: DULoxetine HCl 60 MG CAPSULE.DR PO ×2 (08:42→20:18)
[2024-05-01] MEDS: Lidocaine 4 % Patch ADH..PATCH 1 PATCH TRANSDERMA (08:43)
[2024-05-01] MEDS: Nystatin Powder 15 GM BOTTLE 1 APPL TOPICAL (08:44)
[2024-05-01] MEDS: traMADoL HCL 50 MG TABLET 100 MG PO ×2 (08:44→20:16)
[2024-05-01 08:55] LABS: Creatinine Clr Calc Pharmacy 90.7; Estimated Glomerular Filt Rate > 60
--- NOTE | 2024-05-01 14:29 | HO.PSYCHPN ---
Subjective Subjective Date of Service: 05/01/24 Reason For Visit: Depression Subjective Notes: Conditional Voluntary Medical Problems Affecting Mental Status: Yes (IV vanco) Interim History: 73 yo with hx of bpd- reports made serious suicide gesture fall 2022, Came here after calling 911 while at [facility] for rehab after breaking leg- and not feeling responded to or cared for there- was in our ER for 3 days before admitted here- Pt continues to have multiple requests of staff and feels ill- used if she is not responded to as she hopes- eg nursing encourages her to wheel herself over to me at table - where she tried to get them to do so. Medication Compliance: Yes Side effects from medications: No Attending Groups: Intermittent Review of Systems Acute medical concerns: Yes ?iv vanc for cellulitis I am guessing MRSA but not sure Medical Review of Systems: unchanged Mental Status Exam Mental Status Exam Patient Appearance: Unkempt Patient Orientation: Person, Place, Time and Situation Level of Consciousness: Awake and Appropriate Patient Behavior: Talkative and Good Eye Contact Behavior Comments: found to be demanding by staff , I can be ok , or irritable based on how her needs feel met Mood Description: Calm Affect Description: Appropriate and Labile Patient Cognition Impaired: No Ability to Follow Directions: Fair (didn't want to wheel herself to table when I gave her help turning she did rest) Speech Pattern: Clear Hallucinations: None Thought Content: positive for Intact and positive for Goal Oriented Depressive Symptoms: Increased Irritability Judgement: Fair Diagnostics Vital Signs (24Hr): Vital Signs - 24 hr 04/30/24 19:25 04/30/24 23:54 05/01/24 08:31 Temperature 97.9 F 97.0 F Pulse Rate 78 74 Respiratory Rate 18 16 Blood Pressure 106/62 124/72 Pulse Oximetry 96 97 Oxygen Delivery Method Room Air Room Air 05/01/24 08:41 05/01/24 08:41 05/01/24 08:42 Temperature Pulse Rate 74 Respiratory Rate Blood Pressure 124/72 124/72 124/72 Pulse Oximetry Oxygen Delivery Method BMI result Body Mass Index 38.4 Labs 04/17/24 03:55 05/01/24 08:35 Labs: Laboratory Results - last 48 hr 04/29/24 04/30/24 05/01/24 16:17 08:03 08:35 Creatinine 0.70 0.72 Estim Creat Clear Calc 93.3 90.7 Estimated GFR > 60 > 60 Random Vancomycin 13.6 L Medications Medications Current Medications Acetaminophen (Acetaminophen 325 Mg Tablet) 650 mg PO Q6H PRN PRN Reason: Headache/Pain Mild Scale (1-3) Last Admin: 04/30/24 20:30 Dose: 650 mg Al Hydroxide/Mg Hydroxide (Magnesium Hydrox/Alum Hydrox 30 Ml Oral.Susp) 30 ml PO Q6H PRN PRN Reason: Heartburn/Nausea Amlodipine Besylate (Amlodipine Besylate 5 Mg Tablet) 5 mg PO DAILY [facility]; Protocol Last Admin: 05/01/24 08:41 Dose: 5 mg Apixaban (Apixaban 5 Mg Tablet) 5 mg PO BID [facility] Last Admin: 05/01/24 08:42 Dose: 5 mg Ascorbic Acid (Ascorbic Acid 500 Mg Tablet) 500 mg PO DAILY [facility] Last Admin: 05/01/24 08:42 Dose: 500 mg Atorvastatin Calcium (Atorvastatin Calcium 40 Mg Tablet) 40 mg PO DAILY [facility] Last Admin: 05/01/24 08:42 Dose: 40 mg Cyanocobalamin (Cyanocobalamin (Vitamin B-12) 1,000 Mcg Tablet) 1,000 mcg PO DAILY [facility] Last Admin: 05/01/24 08:42 Dose: 1,000 mcg Docusate Sodium (Docusate Sodium 100 Mg Capsule) 200 mg PO DAILY [facility] Last Admin: 05/01/24 08:43 Dose: Not Given Duloxetine HCl (Duloxetine Hcl 60 Mg Capsule.Dr) 60 mg PO BID [facility] Last Admin: 05/01/24 08:42 Dose: 60 mg Gabapentin (Gabapentin 300 Mg Capsule) 600 mg PO BEDTIME [facility] Last Admin: 04/30/24 20:31 Dose: 600 mg Gabapentin (Gabapentin 300 Mg Capsule) 300 mg PO DAILY [facility] Last Admin: 05/01/24 08:41 Dose: 300 mg Hydroxyzine HCl (Hydroxyzine Hcl 25 Mg Tablet) 25 mg PO Q6H PRN PRN Reason: Anxiety Last Admin: 04/30/24 01:10 Dose: 25 mg Vancomycin HCl 750 mg/ Sodium (Chloride) 265 mls @ 265 mls/hr IV Q12H [facility] Last Infusion: 05/01/24 06:40 Dose: Infused Lamotrigine (Lamotrigine 100 Mg Tablet) 300 mg PO BEDTIME [facility] Last Admin: 06/21/24 20:29 Dose: 300 mg Lidocaine (Lidocaine 4 % Patch Adh..Patch) 1 patch TRANSDERMA DAILY [facility]; Protocol Last Admin: 05/01/24 08:43 Dose: 1 patch Losartan Potassium (Losartan Potassium 25 Mg Tablet) 25 mg PO DAILY [facility]; Protocol Last Admin: 05/01/24 08:42 Dose: 25 mg Magnesium Hydroxide (Milk Of Magnesia 30 Ml Oral.Susp) 30 ml PO DAILY PRN PRN Reason: Constipation Metformin HCl (Metformin Hcl 500 Mg Tablet) 500 mg PO BID [facility] Last Admin: 05/01/24 08:42 Dose: 500 mg Metoprolol Tartrate (Metoprolol Tartrate 50 Mg Tablet) 50 mg PO BID [facility]; Protocol Last Admin: 05/01/24 08:41 Dose: 50 mg Nystatin (Nystatin Powder 15 Gm Bottle) 1 appl TOPICAL TID [facility]; Protocol Last Admin: 05/01/24 08:44 Dose: 1 appl Omeprazole (Omeprazole 40 Mg Capsule.Dr) 40 mg PO DAILY@0630 [facility] Last Admin: 05/01/24 07:05 Dose: 40 mg Pharmacy Consult (Consult Rx Vancomycin Dosing) 1 each MISCELLANE DAILY PRN PRN Reason: Consult order Sodium Chloride (0.9 % Sodium Chloride Flush 10 Ml Syringe) 5 ml IVFLUSH QSHIFT [facility] Last Admin: 05/01/24 08:42 Dose: 5 ml Tramadol HCl (Tramadol Hcl 50 Mg Tablet) 100 mg PO Q6H PRN PRN Reason: Pain, Severe (Pain Scale 7-10) Last Admin: 05/01/24 08:44 Dose: 100 mg Trazodone HCl (Trazodone Hcl 50 Mg Tablet) 50 mg PO BEDTIME MRX1 PRN PRN Reason: Insomnia Last Admin: 04/30/24 20:28 Dose: 50 mg Vitamin D (Cholecalciferol (Vitamin D3) 25 Mcg Tablet) 25 mcg PO DAILY [facility] Last Admin: 05/01/24 08:42 Dose: 25 mcg Allergies Allergies Allergy/AdvReac Type Severity Reaction Status Date / Time mirabegron [From Myrbetriq] Allergy Hallucinati Verified 04/17/24 02:13 ons Assessment & Plan Assessment & Plan (1) Trimalleolar fracture of right ankle: Qualifiers: Encounter type: subsequent encounter Fracture healing: with nonunion Fracture type: closed Qualified Code(s): S82.851K - Displaced trimalleolar fracture of right lower leg, subsequent encounter for closed fracture with nonunion Status: Acute Code(s): S82.851A - Displaced trimalleolar fracture of right lower leg, initial encounter for closed fracture Assessment and Plan: New cast applied NWB xrays ordered Plan The patient is a 73-year-old female with a past history of borderline personality disorder, major depressive disorder and recently admitted for suicidality ideation. The patient recently had several stressors such as a fracture in her ankle that required several surgeries. Plan 1. Continue with psychiatric medications. 2. Continue with follow-up as per surgery. 3. Start lidocaine patch for back pain. 4. Discharge to subacute rehab to continue treatment. Waiting for placement. Patient educated on: therapeutic strategies and medical condition Informed Consent: understands Reason for continued inpatient stay Substantial Risk for: med/psych decompensation Time Spent With Patient Time: Total time managing care of this patient today ____ minutes.
[2024-05-01 17:04] LABS: Vancomycin Random 13.2 mcg/mL (15-20)
[2024-05-01] MEDS: vancomycin HCL 750 MG in 0.9 % Sodium Chloride 250 ML 250 MG IV (18:17)
[2024-05-01 20:00] VITALS: BP 124/63; PULSE 71; RESP 16; TEMP 36.1; O2SAT 99
[2024-05-01] MEDS: Gabapentin 300 MG CAPSULE 600 MG PO (20:15)
[2024-05-01] MEDS: lamoTRIgine 100 MG TABLET 300 MG PO (20:17)
[2024-05-01] MEDS: Acetaminophen 325 MG TABLET 650 MG PO (20:18)
[2024-05-01 20:20] VITALS: BP 124/60; PULSE 72
[2024-05-01 23:15] VITALS: RESP 16
[2024-05-02] VITALS (7 sets, daily range): BP systolic 98–122; BP diastolic 50–65; PULSE 72–85; RESP 18; TEMP 36.2–36.7; O2SAT 95–96
[2024-05-02] MEDS: 0.9 % Sodium Chloride Flush 10 ML SYRINGE 5 ML IVFLUSH ×3 (00:05→16:45)
[2024-05-02] MEDS: vancomycin HCL 750 MG in 0.9 % Sodium Chloride 250 ML 250 MG IV ×2 (05:32→18:09)
[2024-05-02] MEDS: Omeprazole 40 MG CAPSULE.DR PO (06:14)
[2024-05-02 07:59] LABS: Creatinine Clr Calc Pharmacy 97.5; Estimated Glomerular Filt Rate > 60
[2024-05-02] MEDS: Lidocaine 4 % Patch ADH..PATCH 1 PATCH TRANSDERMA (09:57)
[2024-05-02] MEDS: Metoprolol Tartrate 50 MG TABLET PO ×2 (09:58→21:04)
[2024-05-02] MEDS: Nystatin Powder 15 GM BOTTLE 1 APPL TOPICAL ×3 (09:58→21:05)
[2024-05-02] MEDS: metFORMIN HCl 500 MG TABLET PO ×2 (09:58→21:04)
[2024-05-02] MEDS: Cholecalciferol (Vitamin D3) 25 MCG TABLET PO (09:58)
[2024-05-02] MEDS: Ascorbic Acid 500 MG TABLET PO (09:59)
[2024-05-02] MEDS: Gabapentin 300 MG CAPSULE PO (09:59)
[2024-05-02] MEDS: DULoxetine HCl 60 MG CAPSULE.DR PO ×2 (09:59→21:03)
[2024-05-02] MEDS: amLODIPine Besylate 5 MG TABLET PO (09:59)
[2024-05-02] MEDS: Apixaban 5 MG TABLET PO ×2 (09:59→21:04)
[2024-05-02] MEDS: Atorvastatin Calcium 40 MG TABLET PO (09:59)
[2024-05-02] MEDS: Losartan Potassium 25 MG TABLET PO (10:00)
[2024-05-02] MEDS: Cyanocobalamin (Vitamin B-12) 1,000 MCG TABLET 1000 MCG PO (10:00)
--- NOTE | 2024-05-02 13:56 | HO.PSYCHPN ---
Subjective Subjective Date of Service: 05/02/24 Reason For Visit: Depression Subjective Notes: Conditional Voluntary Interim History: 73 yo reports that likes to have choices and that suicide always an option for her- felt content in fall when she bright, but pointed out to patient that she called her sister- so she had some parts to her that wanted to live- She is hoping for dc this week waiting for dr to ok - mentioned that probably will need to be able to get self in and out of chair to bed and be able to use br independently acknowledges that she might not be there yet- so likely to need to go to rehab- Medication Compliance: Yes Side effects from medications: No Attending Groups: Yes Review of Systems Acute medical concerns: Yes ongoing treatment for cellulitis on vanco Medical Review of Systems: unchanged Mental Status Exam Mental Status Exam Narrative: sitting in wheel chair- again wanted me to move her to table- I turned the chair and had her do the rest Patient Appearance: Disheveled Patient Orientation: Person, Place, Time and Situation Level of Consciousness: Awake Patient Behavior: Dependent and Good Eye Contact Mood Description: Calm Affect Description: Labile (if feels needs unmet) Patient Cognition Impaired: No Ability to Follow Directions: Fair Speech Pattern: Clear Hallucinations: None Delusions: Not Present Thought Process: Intact Thought Content: positive for Goal Oriented Depressive Symptoms: Thoughts of /Suicide (focused on od attempt fall 2022 and how peaceful she felt- ) Judgement: Fair Diagnostics Vital Signs (24Hr): Vital Signs - 24 hr 05/01/24 20:00 05/01/24 20:20 05/01/24 23:15 Temperature 97 F Pulse Rate 71 72 Respiratory Rate 16 16 Blood Pressure 124/63 124/60 Pulse Oximetry 99 Oxygen Delivery Method Room Air 05/02/24 09:55 05/02/24 09:58 05/02/24 09:59 Temperature 97.1 F Pulse Rate 72 72 Respiratory Rate 18 Blood Pressure 122/62 98/50 L 122/62 Pulse Oximetry 95 Oxygen Delivery Method Room Air 05/02/24 10:00 Temperature Pulse Rate Respiratory Rate Blood Pressure 122/62 Pulse Oximetry Oxygen Delivery Method BMI result Body Mass Index 38.4 Labs 04/17/24 03:55 05/02/24 06:44 Labs: Laboratory Results - last 48 hr 06/22/24 06/22/24 06/23/24 08:35 16:04 06:44 Creatinine 0.72 0.67 Estim Creat Clear Calc 90.7 97.5 Estimated GFR > 60 > 60 Random Vancomycin 13.2 L Imaging Radiology Impressions: ITS Impressions Ankle X-Ray 04/27/24 16:38 IMPRESSION: Trimalleolar ankle fracture redemonstrated with evidence of some fracture healing of the distal fibula with minimal, if any, healing of the tibia fracture. On the lateral projection, the alignment appears unchanged compared with the intraoperative images and improved compared with the preoperative images. Persistent, albeit decreased, lateral subluxation of the talus with respect to the tibia on the frontal projection allowing for slight differences in projection. Medications Medications Current Medications Acetaminophen (Acetaminophen 325 Mg Tablet) 650 mg PO Q6H PRN PRN Reason: Headache/Pain Mild Scale (1-3) Last Admin: 05/01/24 20:18 Dose: 650 mg Al Hydroxide/Mg Hydroxide (Magnesium Hydrox/Alum Hydrox 30 Ml Oral.Susp) 30 ml PO Q6H PRN PRN Reason: Heartburn/Nausea Amlodipine Besylate (Amlodipine Besylate 5 Mg Tablet) 5 mg PO DAILY [facility]; Protocol Last Admin: 05/02/24 09:59 Dose: 5 mg Apixaban (Apixaban 5 Mg Tablet) 5 mg PO BID [facility] Last Admin: 05/02/24 09:59 Dose: 5 mg Ascorbic Acid (Ascorbic Acid 500 Mg Tablet) 500 mg PO DAILY [facility] Last Admin: 05/02/24 09:59 Dose: 500 mg Atorvastatin Calcium (Atorvastatin Calcium 40 Mg Tablet) 40 mg PO DAILY [facility] Last Admin: 05/02/24 09:59 Dose: 40 mg Cyanocobalamin (Cyanocobalamin (Vitamin B-12) 1,000 Mcg Tablet) 1,000 mcg PO DAILY [facility] Last Admin: 05/02/24 10:00 Dose: 1,000 mcg Docusate Sodium (Docusate Sodium 100 Mg Capsule) 200 mg PO DAILY [facility] Last Admin: 05/02/24 10:00 Dose: Not Given Duloxetine HCl (Duloxetine Hcl 60 Mg Capsule.Dr) 60 mg PO BID [facility] Last Admin: 05/02/24 09:59 Dose: 60 mg Gabapentin (Gabapentin 300 Mg Capsule) 600 mg PO BEDTIME [facility] Last Admin: 05/01/24 20:15 Dose: 600 mg Gabapentin (Gabapentin 300 Mg Capsule) 300 mg PO DAILY [facility] Last Admin: 05/02/24 09:59 Dose: 300 mg Hydroxyzine HCl (Hydroxyzine Hcl 25 Mg Tablet) 25 mg PO Q6H PRN PRN Reason: Anxiety Last Admin: 04/30/24 01:10 Dose: 25 mg Vancomycin HCl 750 mg/ Sodium (Chloride) 265 mls @ 265 mls/hr IV Q12H [facility] Last Infusion: 05/02/24 06:45 Dose: Infused Lamotrigine (Lamotrigine 100 Mg Tablet) 300 mg PO BEDTIME [facility] Last Admin: 05/01/24 20:17 Dose: 300 mg Lidocaine (Lidocaine 4 % Patch Adh..Patch) 1 patch TRANSDERMA DAILY [facility]; Protocol Last Admin: 05/02/24 09:57 Dose: 1 patch Losartan Potassium (Losartan Potassium 25 Mg Tablet) 25 mg PO DAILY [facility]; Protocol Last Admin: 05/02/24 10:00 Dose: 25 mg Magnesium Hydroxide (Milk Of Magnesia 30 Ml Oral.Susp) 30 ml PO DAILY PRN PRN Reason: Constipation Metformin HCl (Metformin Hcl 500 Mg Tablet) 500 mg PO BID [facility] Last Admin: 05/02/24 09:58 Dose: 500 mg Metoprolol Tartrate (Metoprolol Tartrate 50 Mg Tablet) 50 mg PO BID [facility]; Protocol Last Admin: 05/02/24 09:58 Dose: 50 mg Nystatin (Nystatin Powder 15 Gm Bottle) 1 appl TOPICAL TID [facility]; Protocol Last Admin: 05/02/24 09:58 Dose: 1 appl Omeprazole (Omeprazole 40 Mg Capsule.Dr) 40 mg PO DAILY@0630 [facility] Last Admin: 05/02/24 06:14 Dose: 40 mg Pharmacy Consult (Consult Rx Vancomycin Dosing) 1 each MISCELLANE DAILY PRN PRN Reason: Consult order Sodium Chloride (0.9 % Sodium Chloride Flush 10 Ml Syringe) 5 ml IVFLUSH QSHIFT [facility] Last Admin: 05/02/24 09:57 Dose: 5 ml Trazodone HCl (Trazodone Hcl 50 Mg Tablet) 50 mg PO BEDTIME MRX1 PRN PRN Reason: Insomnia Last Admin: 04/30/24 20:28 Dose: 50 mg Vitamin D (Cholecalciferol (Vitamin D3) 25 Mcg Tablet) 25 mcg PO DAILY [facility] Last Admin: 05/02/24 09:58 Dose: 25 mcg Allergies Allergies Allergy/AdvReac Type Severity Reaction Status Date / Time mirabegron [From Peggy] Allergy Hallucinati Verified 04/17/24 02:13 ons Assessment & Plan Assessment & Plan (1) Trimalleolar fracture of right ankle: Qualifiers: Encounter type: subsequent encounter Fracture healing: with nonunion Fracture type: closed Qualified Code(s): S82.851K - Displaced trimalleolar fracture of right lower leg, subsequent encounter for closed fracture with nonunion Status: Acute Code(s): S82.851A - Displaced trimalleolar fracture of right lower leg, initial encounter for closed fracture Assessment and Plan: New cast applied NWB xrays ordered Plan The patient is a 73-year-old female with a past history of borderline personality disorder, major depressive disorder and recently admitted for suicidality ideation. The patient recently had several stressors such as a fracture in her ankle that required several surgeries. Plan 1. Continue with psychiatric medications. 2. Continue with follow-up as per surgery. 3. Start lidocaine patch for back pain. 4. Discharge to subacute rehab to continue treatment. Waiting for placement. 05/02- [facility] Patient educated on: therapeutic strategies and medical condition Informed Consent: understands Reason for continued inpatient stay Substantial Risk for: harm to self and med/psych decompensation Time Spent With Patient Time: Total time managing care of this patient today ____ minutes.
[2024-05-02] MEDS: lamoTRIgine 100 MG TABLET 300 MG PO (21:01)
[2024-05-02] MEDS: Gabapentin 300 MG CAPSULE 600 MG PO (21:02)
[2024-05-02] MEDS: Acetaminophen 325 MG TABLET 650 MG PO (21:02)
[2024-05-02] MEDS: traMADoL HCL 50 MG TABLET 100 MG PO (21:03)
[2024-05-02] MEDS: traZODone HCL 50 MG TABLET PO (21:04)
[2024-05-03] VITALS (7 sets, daily range): BP systolic 113–121; BP diastolic 64–69; PULSE 75–87; RESP 18–23; TEMP 36.7–36.8; O2SAT 94–96
[2024-05-03] MEDS: 0.9 % Sodium Chloride Flush 10 ML SYRINGE 5 ML IVFLUSH ×4 (01:01→23:39)
[2024-05-03] MEDS: Omeprazole 40 MG CAPSULE.DR PO (06:00)
[2024-05-03] MEDS: vancomycin HCL 750 MG in 0.9 % Sodium Chloride 250 ML 250 MG IV ×2 (06:05→17:55)
[2024-05-03] MEDS: Cholecalciferol (Vitamin D3) 25 MCG TABLET PO (08:15)
[2024-05-03] MEDS: Metoprolol Tartrate 50 MG TABLET PO ×2 (08:16→21:05)
[2024-05-03] MEDS: Ascorbic Acid 500 MG TABLET PO (08:16)
[2024-05-03] MEDS: Losartan Potassium 25 MG TABLET PO (08:16)
[2024-05-03] MEDS: Gabapentin 300 MG CAPSULE PO (08:16)
[2024-05-03] MEDS: Apixaban 5 MG TABLET PO ×2 (08:16→21:06)
[2024-05-03] MEDS: DULoxetine HCl 60 MG CAPSULE.DR PO ×2 (08:16→21:06)
[2024-05-03] MEDS: Cyanocobalamin (Vitamin B-12) 1,000 MCG TABLET 1000 MCG PO (08:16)
[2024-05-03] MEDS: amLODIPine Besylate 5 MG TABLET PO (08:17)
[2024-05-03] MEDS: Atorvastatin Calcium 40 MG TABLET PO (08:17)
[2024-05-03] MEDS: metFORMIN HCl 500 MG TABLET PO ×2 (08:17→21:03)
[2024-05-03 08:20] LABS: Creatinine Clr Calc Pharmacy 96.1; Estimated Glomerular Filt Rate > 60
[2024-05-03] MEDS: Lidocaine 4 % Patch ADH..PATCH 1 PATCH TRANSDERMA (08:54)
[2024-05-03] MEDS: Nystatin Powder 15 GM BOTTLE 1 APPL TOPICAL ×3 (08:54→21:08)
[2024-05-03] MEDS: traMADoL HCL 50 MG TABLET 100 MG PO ×2 (09:22→21:04)
--- NOTE | 2024-05-03 15:08 | P.PNPSI_ITS ---
Subjective Subjective Date of Service: 05/03/24 Reason For Visit: Depression Subjective Notes: Conditional Voluntary Interim History: The nursing staff reported the patient remains labile with episodes of crying. She refused Colace and she had been tearful on and off. On interview the patient reported that nobody told her that she had osteomyelitis and explained her that I assume that she already knew about her diagnosis since she is receiving vancomycin IV. Mental Status Exam Mental Status Exam Patient Appearance: Appropriate Patient Orientation: Person and Situation Level of Consciousness: Awake Patient Behavior: Guarded and Passive Mood Description: Withdrawn Affect Description: Constricted Patient Cognition Impaired: Yes Ability to Follow Directions: Good Speech Pattern: Clear Hallucinations: None Delusions: Not Present Thought Process: Distracted and Slowed Thinking Thought Content: positive for Circum[place] Judgement: Poor Diagnostics Vital Signs (24Hr): Vital Signs - 24 hr 05/02/24 20:00 05/02/24 21:04 05/02/24 23:40 Temperature 98.1 F Pulse Rate 85 85 Respiratory Rate 18 18 Blood Pressure 120/65 120/65 Pulse Oximetry 96 Oxygen Delivery Method Room Air 05/03/24 04:27 05/03/24 08:00 05/03/24 08:16 Temperature 98.2 F Pulse Rate 87 Respiratory Rate 23 H 18 Blood Pressure 121/64 121/64 Pulse Oximetry 96 Oxygen Delivery Method Room Air 05/03/24 08:16 05/03/24 08:17 Temperature Pulse Rate 87 Respiratory Rate Blood Pressure 121/64 121/64 Pulse Oximetry Oxygen Delivery Method BMI result Body Mass Index 38.4 Labs 04/17/24 03:55 05/03/24 08:02 Labs: Laboratory Results - last 48 hr 05/01/24 05/02/24 05/03/24 16:04 06:44 08:02 Creatinine 0.67 0.68 Estim Creat Clear Calc 97.5 96.1 Estimated GFR > 60 > 60 Random Vancomycin 13.2 L Imaging Radiology Impressions: ITS Impressions Ankle X-Ray 04/27/24 16:38 IMPRESSION: Trimalleolar ankle fracture redemonstrated with evidence of some fracture healing of the distal fibula with minimal, if any, healing of the tibia fracture. On the lateral projection, the alignment appears unchanged compared with the intraoperative images and improved compared with the preoperative images. Persistent, albeit decreased, lateral subluxation of the talus with respect to the tibia on the frontal projection allowing for slight differences in projection. Medications Medications Current Medications Acetaminophen (Acetaminophen 325 Mg Tablet) 650 mg PO Q6H PRN PRN Reason: Headache/Pain Mild Scale (1-3) Last Admin: 05/02/24 21:02 Dose: 650 mg Al Hydroxide/Mg Hydroxide (Magnesium Hydrox/Alum Hydrox 30 Ml Oral.Susp) 30 ml PO Q6H PRN PRN Reason: Heartburn/Nausea Amlodipine Besylate (Amlodipine Besylate 5 Mg Tablet) 5 mg PO DAILY [facility]; Protocol Last Admin: 05/03/24 08:17 Dose: 5 mg Apixaban (Apixaban 5 Mg Tablet) 5 mg PO BID [facility] Last Admin: 05/03/24 08:16 Dose: 5 mg Ascorbic Acid (Ascorbic Acid 500 Mg Tablet) 500 mg PO DAILY [facility] Last Admin: 05/03/24 08:16 Dose: 500 mg Atorvastatin Calcium (Atorvastatin Calcium 40 Mg Tablet) 40 mg PO DAILY [facility] Last Admin: 05/03/24 08:17 Dose: 40 mg Cyanocobalamin (Cyanocobalamin (Vitamin B-12) 1,000 Mcg Tablet) 1,000 mcg PO DAILY [facility] Last Admin: 05/03/24 08:16 Dose: 1,000 mcg Docusate Sodium (Docusate Sodium 100 Mg Capsule) 200 mg PO DAILY [facility] Last Admin: 05/03/24 08:56 Dose: Not Given Duloxetine HCl (Duloxetine Hcl 60 Mg Capsule.Dr) 60 mg PO BID [facility] Last Admin: 05/03/24 08:16 Dose: 60 mg Gabapentin (Gabapentin 300 Mg Capsule) 600 mg PO BEDTIME [facility] Last Admin: 05/02/24 21:02 Dose: 600 mg Gabapentin (Gabapentin 300 Mg Capsule) 300 mg PO DAILY [facility] Last Admin: 05/03/24 08:16 Dose: 300 mg Hydroxyzine HCl (Hydroxyzine Hcl 25 Mg Tablet) 25 mg PO Q6H PRN PRN Reason: Anxiety Last Admin: 04/30/24 01:10 Dose: 25 mg Vancomycin HCl 750 mg/ Sodium (Chloride) 265 mls @ 265 mls/hr IV Q12H [facility] Last Admin: 05/03/24 06:05 Dose: 250 mls/hr Lamotrigine (Lamotrigine 100 Mg Tablet) 300 mg PO BEDTIME [facility] Last Admin: 05/02/24 21:01 Dose: 300 mg Lidocaine (Lidocaine 4 % Patch Adh..Patch) 1 patch TRANSDERMA DAILY [facility]; Protocol Last Admin: 05/03/24 08:54 Dose: 1 patch Losartan Potassium (Losartan Potassium 25 Mg Tablet) 25 mg PO DAILY [facility]; Protocol Last Admin: 05/03/24 08:16 Dose: 25 mg Magnesium Hydroxide (Milk Of Magnesia 30 Ml Oral.Susp) 30 ml PO DAILY PRN PRN Reason: Constipation Metformin HCl (Metformin Hcl 500 Mg Tablet) 500 mg PO BID [facility] Last Admin: 05/03/24 08:17 Dose: 500 mg Metoprolol Tartrate (Metoprolol Tartrate 50 Mg Tablet) 50 mg PO BID [facility]; Protocol Last Admin: 05/03/24 08:16 Dose: 50 mg Nystatin (Nystatin Powder 15 Gm Bottle) 1 appl TOPICAL TID [facility]; Protocol Last Admin: 05/03/24 08:54 Dose: 1 appl Omeprazole (Omeprazole 40 Mg Capsule.Dr) 40 mg PO DAILY@0630 [facility] Last Admin: 05/03/24 06:00 Dose: 40 mg Pharmacy Consult (Consult Rx Vancomycin Dosing) 1 each MISCELLANE DAILY PRN PRN Reason: Consult order Sodium Chloride (0.9 % Sodium Chloride Flush 10 Ml Syringe) 5 ml IVFLUSH QSHIFT [facility] Last Admin: 05/03/24 08:14 Dose: 5 ml Tramadol HCl (Tramadol Hcl 50 Mg Tablet) 100 mg PO Q6H PRN PRN Reason: moderate to severe pain Last Admin: 05/03/24 09:22 Dose: 100 mg Trazodone HCl (Trazodone Hcl 50 Mg Tablet) 50 mg PO BEDTIME MRX1 PRN PRN Reason: Insomnia Last Admin: 05/02/24 21:04 Dose: 50 mg Vitamin D (Cholecalciferol (Vitamin D3) 25 Mcg Tablet) 25 mcg PO DAILY [facility] Last Admin: 05/03/24 08:15 Dose: 25 mcg Allergies Allergies Allergy/AdvReac Type Severity Reaction Status Date / Time mirabegron [From Myrbetriq] Allergy Hallucinati Verified 04/17/24 02:13 ons Assessment & Plan Assessment & Plan (1) Trimalleolar fracture of right ankle: Qualifiers: Encounter type: subsequent encounter Fracture type: closed Fracture healing: with nonunion Qualified Code(s): S82.851K - Displaced trimalleolar fracture of right lower leg, subsequent encounter for closed fracture with nonunion Status: Acute Code(s): S82.851A - Displaced trimalleolar fracture of right lower leg, initial encounter for closed fracture Assessment and Plan: New cast applied NWB xrays ordered Plan The patient is a 73-year-old female with a past history of borderline personality disorder, major depressive disorder and recently admitted for suicidality ideation. The patient recently had several stressors such as a fracture in her ankle that required several surgeries. Plan 1. Continue with psychiatric medications. 2. Continue with follow-up as per surgery. 3. Start lidocaine patch for back pain. 4. Discharge to subacute rehab to continue treatment. Waiting for placement. Reason for continued inpatient stay Substantial Risk for: inability to function, rapid decompensation and med/psych decompensation Time Spent With Patient Time: Total time managing care of this patient today __20__ minutes.
[2024-05-03] MEDS: Acetaminophen 325 MG TABLET 650 MG PO (16:03)
[2024-05-03 16:57] LABS: Vancomycin Random 12.3 mcg/mL (15-20)
[2024-05-03] MEDS: lamoTRIgine 100 MG TABLET 300 MG PO (21:03)
[2024-05-03] MEDS: Gabapentin 300 MG CAPSULE 600 MG PO (21:04)
[2024-05-03] MEDS: traZODone HCL 50 MG TABLET PO (21:06)
[2024-05-04] MEDS: Omeprazole 40 MG CAPSULE.DR PO (05:52)
[2024-05-04] MEDS: vancomycin HCL 750 MG in 0.9 % Sodium Chloride 250 ML 250 MG IV ×2 (05:55→17:51)
[2024-05-04 08:30] VITALS: BP 124/69; PULSE 78; RESP 20; TEMP 36.2; O2SAT 97
[2024-05-04] MEDS: Cholecalciferol (Vitamin D3) 25 MCG TABLET PO (08:32)
[2024-05-04] MEDS: metFORMIN HCl 500 MG TABLET PO ×2 (08:33→21:14)
[2024-05-04] MEDS: Cyanocobalamin (Vitamin B-12) 1,000 MCG TABLET 1000 MCG PO (08:33)
[2024-05-04] MEDS: DULoxetine HCl 60 MG CAPSULE.DR PO ×2 (08:33→21:14)
[2024-05-04] MEDS: Ascorbic Acid 500 MG TABLET PO (08:33)
[2024-05-04] MEDS: Apixaban 5 MG TABLET PO ×2 (08:33→21:14)
[2024-05-04] MEDS: Atorvastatin Calcium 40 MG TABLET PO (08:34)
[2024-05-04] MEDS: Docusate Sodium 100 MG CAPSULE 200 MG PO (08:34)
[2024-05-04] MEDS: Gabapentin 300 MG CAPSULE PO (08:35)
[2024-05-04 08:37] VITALS: BP 124/69
[2024-05-04] MEDS: amLODIPine Besylate 5 MG TABLET PO (08:37)
[2024-05-04 08:38] VITALS: BP 124/69; PULSE 78
[2024-05-04] MEDS: Losartan Potassium 25 MG TABLET PO (08:38)
[2024-05-04] MEDS: Metoprolol Tartrate 50 MG TABLET PO ×2 (08:38→21:13)
[2024-05-04] MEDS: Lidocaine 4 % Patch ADH..PATCH 1 PATCH TRANSDERMA (08:49)
[2024-05-04 09:07] LABS: Creatinine Clr Calc Pharmacy 102.1; Estimated Glomerular Filt Rate > 60
[2024-05-04] MEDS: 0.9 % Sodium Chloride Flush 10 ML SYRINGE 5 ML IVFLUSH ×2 (09:20→17:11)
[2024-05-04] MEDS: traMADoL HCL 50 MG TABLET 100 MG PO (09:21)
[2024-05-04] MEDS: hydrOXYzine HCL 25 MG TABLET PO (09:22)
[2024-05-04] MEDS: Nystatin Powder 15 GM BOTTLE 1 APPL TOPICAL ×3 (09:24→21:40)
--- NOTE | 2024-05-04 15:30 | HO.PSYCHPN ---
Subjective Subjective Date of Service: 05/04/24 Reason For Visit: Depression Subjective Notes: Conditional Voluntary Interim History: The nursing staff reported the patient had been in her room most of the time no changes in her mental status. Slept with her CPAP. On interview the patient reported that she was feeling safe, waiting for placement. We are going to have a meeting with her family at 3:15 PM tomorrow. Mental Status Exam Mental Status Exam Patient Appearance: Appropriate Patient Orientation: Person and Situation Level of Consciousness: Awake and Appropriate Patient Behavior: Guarded and Passive Mood Description: Withdrawn Affect Description: Constricted Patient Cognition Impaired: Yes Ability to Follow Directions: Good Speech Pattern: Clear Hallucinations: None Delusions: Not Present Thought Process: Distracted and Slowed Thinking Thought Content: positive for [place] and positive for Poverty of Content Judgement: Poor Diagnostics Vital Signs (24Hr): Vital Signs - 24 hr 05/03/24 20:00 05/03/24 21:05 05/03/24 23:20 Temperature 98.1 F Pulse Rate 75 75 Respiratory Rate 18 20 Blood Pressure 113/69 113/69 Pulse Oximetry 94 Oxygen Delivery Method Room Air 05/04/24 08:30 05/04/24 08:37 05/04/24 08:38 Temperature 97.2 F Pulse Rate 78 78 Respiratory Rate 20 Blood Pressure 124/69 124/69 124/69 Pulse Oximetry 97 Oxygen Delivery Method Room Air 05/04/24 08:38 Temperature Pulse Rate Respiratory Rate Blood Pressure 124/69 Pulse Oximetry Oxygen Delivery Method BMI result Body Mass Index 38.4 Labs 04/17/24 03:55 05/04/24 08:34 Labs: Laboratory Results - last 48 hr 05/03/24 05/03/24 05/04/24 08:02 16:27 08:34 Creatinine 0.68 0.64 Estim Creat Clear Calc 96.1 102.1 Estimated GFR > 60 > 60 Random Vancomycin 12.3 L Imaging Radiology Impressions: ITS Impressions Ankle X-Ray 04/27/24 16:38 IMPRESSION: Trimalleolar ankle fracture redemonstrated with evidence of some fracture healing of the distal fibula with minimal, if any, healing of the tibia fracture. On the lateral projection, the alignment appears unchanged compared with the intraoperative images and improved compared with the preoperative images. Persistent, albeit decreased, lateral subluxation of the talus with respect to the tibia on the frontal projection allowing for slight differences in projection. Medications Medications Current Medications Acetaminophen (Acetaminophen 325 Mg Tablet) 650 mg PO Q6H PRN PRN Reason: Headache/Pain Mild Scale (1-3) Last Admin: 05/03/24 16:03 Dose: 650 mg Al Hydroxide/Mg Hydroxide (Magnesium Hydrox/Alum Hydrox 30 Ml Oral.Susp) 30 ml PO Q6H PRN PRN Reason: Heartburn/Nausea Amlodipine Besylate (Amlodipine Besylate 5 Mg Tablet) 5 mg PO DAILY [facility]; Protocol Last Admin: 05/04/24 08:37 Dose: 5 mg Apixaban (Apixaban 5 Mg Tablet) 5 mg PO BID [facility] Last Admin: 05/04/24 08:33 Dose: 5 mg Ascorbic Acid (Ascorbic Acid 500 Mg Tablet) 500 mg PO DAILY [facility] Last Admin: 05/04/24 08:33 Dose: 500 mg Atorvastatin Calcium (Atorvastatin Calcium 40 Mg Tablet) 40 mg PO DAILY [facility] Last Admin: 05/04/24 08:34 Dose: 40 mg Cyanocobalamin (Cyanocobalamin (Vitamin B-12) 1,000 Mcg Tablet) 1,000 mcg PO DAILY [facility] Last Admin: 05/04/24 08:33 Dose: 1,000 mcg Docusate Sodium (Docusate Sodium 100 Mg Capsule) 200 mg PO DAILY [facility] Last Admin: 05/04/24 08:34 Dose: 200 mg Duloxetine HCl (Duloxetine Hcl 60 Mg Capsule.Dr) 60 mg PO BID [facility] Last Admin: 05/04/24 08:33 Dose: 60 mg Gabapentin (Gabapentin 300 Mg Capsule) 600 mg PO BEDTIME [facility] Last Admin: 05/03/24 21:04 Dose: 600 mg Gabapentin (Gabapentin 300 Mg Capsule) 300 mg PO DAILY [facility] Last Admin: 05/04/24 08:35 Dose: 300 mg Hydroxyzine HCl (Hydroxyzine Hcl 25 Mg Tablet) 25 mg PO Q6H PRN PRN Reason: Anxiety Last Admin: 05/04/24 09:22 Dose: 25 mg Vancomycin HCl 750 mg/ Sodium (Chloride) 265 mls @ 265 mls/hr IV Q12H [facility] Last Admin: 05/04/24 05:55 Dose: 250 mls/hr Lamotrigine (Lamotrigine 100 Mg Tablet) 300 mg PO BEDTIME [facility] Last Admin: 05/03/24 21:03 Dose: 300 mg Lidocaine (Lidocaine 4 % Patch Adh..Patch) 1 patch TRANSDERMA DAILY [facility]; Protocol Last Admin: 05/04/24 08:49 Dose: 1 patch Losartan Potassium (Losartan Potassium 25 Mg Tablet) 25 mg PO DAILY [facility]; Protocol Last Admin: 05/04/24 08:38 Dose: 25 mg Magnesium Hydroxide (Milk Of Magnesia 30 Ml Oral.Susp) 30 ml PO DAILY PRN PRN Reason: Constipation Metformin HCl (Metformin Hcl 500 Mg Tablet) 500 mg PO BID [facility] Last Admin: 05/04/24 08:33 Dose: 500 mg Metoprolol Tartrate (Metoprolol Tartrate 50 Mg Tablet) 50 mg PO BID [facility]; Protocol Last Admin: 05/04/24 08:38 Dose: 50 mg Nystatin (Nystatin Powder 15 Gm Bottle) 1 appl TOPICAL TID [facility]; Protocol Last Admin: 05/04/24 15:13 Dose: 1 appl Omeprazole (Omeprazole 40 Mg Capsule.Dr) 40 mg PO DAILY@0630 [facility] Last Admin: 05/04/24 05:52 Dose: 40 mg Pharmacy Consult (Consult Rx Vancomycin Dosing) 1 each MISCELLANE DAILY PRN PRN Reason: Consult order Sodium Chloride (0.9 % Sodium Chloride Flush 10 Ml Syringe) 5 ml IVFLUSH QSHIFT [facility] Last Admin: 05/04/24 09:20 Dose: 5 ml Tramadol HCl (Tramadol Hcl 50 Mg Tablet) 100 mg PO Q6H PRN PRN Reason: moderate to severe pain Last Admin: 05/04/24 09:21 Dose: 100 mg Trazodone HCl (Trazodone Hcl 50 Mg Tablet) 50 mg PO BEDTIME MRX1 PRN PRN Reason: Insomnia Last Admin: 05/03/24 21:06 Dose: 50 mg Vitamin D (Cholecalciferol (Vitamin D3) 25 Mcg Tablet) 25 mcg PO DAILY [facility] Last Admin: 05/04/24 08:32 Dose: 25 mcg Allergies Allergies Allergy/AdvReac Type Severity Reaction Status Date / Time mirabegron [From Myrbetriq] Allergy Hallucinati Verified 04/17/24 02:13 ons Assessment & Plan Assessment & Plan (1) Trimalleolar fracture of right ankle: Qualifiers: Encounter type: subsequent encounter Fracture type: closed Fracture healing: with nonunion Qualified Code(s): S82.851K - Displaced trimalleolar fracture of right lower leg, subsequent encounter for closed fracture with nonunion Status: Acute Code(s): S82.851A - Displaced trimalleolar fracture of right lower leg, initial encounter for closed fracture Assessment and Plan: New cast applied NWB xrays ordered Plan The patient is a 73-year-old female with a past history of borderline personality disorder, major depressive disorder and recently admitted for suicidality ideation. The patient recently had several stressors such as a fracture in her ankle that required several surgeries. Plan 1. Continue with psychiatric medications. 2. Continue with follow-up as per surgery. 3. Start lidocaine patch for back pain. 4. Discharge to subacute rehab to continue treatment. Waiting for placement. Reason for continued inpatient stay Substantial Risk for: inability to function, rapid decompensation and med/psych decompensation Time Spent With Patient Time: Total time managing care of this patient today __20__ minutes.
[2024-05-04 20:00] VITALS: BP 140/70; PULSE 83; TEMP 36.5; O2SAT 97
[2024-05-04 21:13] VITALS: BP 140/70; PULSE 83
[2024-05-04] MEDS: Gabapentin 300 MG CAPSULE 600 MG PO (21:14)
[2024-05-04] MEDS: lamoTRIgine 100 MG TABLET 300 MG PO (21:14)
[2024-05-04] MEDS: traZODone HCL 50 MG TABLET PO (21:18)
[2024-05-04 23:25] VITALS: RESP 20
[2024-05-05] MEDS: traMADoL HCL 50 MG TABLET 100 MG PO ×4 (00:04→20:54)
[2024-05-05] MEDS: traZODone HCL 50 MG TABLET PO ×2 (00:04→21:39)
[2024-05-05] MEDS: 0.9 % Sodium Chloride Flush 10 ML SYRINGE 5 ML IVFLUSH ×3 (00:13→14:34)
[2024-05-05] MEDS: vancomycin HCL 750 MG in 0.9 % Sodium Chloride 250 ML 250 MG IV ×2 (06:01→18:14)
[2024-05-05] MEDS: Omeprazole 40 MG CAPSULE.DR PO (06:02)
[2024-05-05 08:02] VITALS: BP 134/83; PULSE 91; RESP 18; TEMP 36.6; O2SAT 95
[2024-05-05 08:18] LABS: Creatinine Clr Calc Pharmacy 105.3; Estimated Glomerular Filt Rate > 60
[2024-05-05] MEDS: Gabapentin 300 MG CAPSULE PO (08:44)
[2024-05-05] MEDS: Metoprolol Tartrate 50 MG TABLET PO ×2 (08:44→20:53)
[2024-05-05] MEDS: Docusate Sodium 100 MG CAPSULE 200 MG PO (08:44)
[2024-05-05] MEDS: Atorvastatin Calcium 40 MG TABLET PO (08:45)
[2024-05-05] MEDS: Apixaban 5 MG TABLET PO ×2 (08:45→20:51)
[2024-05-05] MEDS: metFORMIN HCl 500 MG TABLET PO ×2 (08:46→20:54)
[2024-05-05] MEDS: Cyanocobalamin (Vitamin B-12) 1,000 MCG TABLET 1000 MCG PO (08:46)
[2024-05-05] MEDS: DULoxetine HCl 60 MG CAPSULE.DR PO ×2 (08:46→20:51)
[2024-05-05] MEDS: Ascorbic Acid 500 MG TABLET PO (08:47)
[2024-05-05] MEDS: Cholecalciferol (Vitamin D3) 25 MCG TABLET PO (08:47)
[2024-05-05] MEDS: amLODIPine Besylate 5 MG TABLET PO (08:47)
[2024-05-05] MEDS: Losartan Potassium 25 MG TABLET PO (08:48)
--- NOTE | 2024-05-05 09:41 | PC.NURSE ---
New cast applies several days ago without pin site windows. No dressing changes needed on cast.
--- NOTE | 2024-05-05 12:35 | P.PNPSI_ITS ---
Subjective Subjective Date of Service: 05/05/24 Reason For Visit: Depression Subjective Notes: Conditional Voluntary Interim History: The nursing staff reported the patient had blunted affect she was seen in the common areas and she slid 8 hours with the CPAP. We are having a meeting today with her family over the Internet. On interview the patient denies new symptoms I suggested to restart the lidocaine patch on her back. Mental Status Exam Mental Status Exam Patient Appearance: Appropriate Patient Orientation: Person and Situation Level of Consciousness: Awake and Appropriate Patient Behavior: Guarded and Passive Mood Description: Withdrawn Affect Description: Constricted Patient Cognition Impaired: Yes Ability to Follow Directions: Good Speech Pattern: Clear Hallucinations: None Delusions: Not Present Thought Process: Distracted and Slowed Thinking Thought Content: positive for [place] and positive for Poverty of Content Judgement: Fair Diagnostics Vital Signs (24Hr): Vital Signs - 24 hr 05/04/24 20:00 05/04/24 21:13 05/04/24 23:25 Temperature 97.7 F Pulse Rate 83 83 Respiratory Rate 20 Blood Pressure 140/70 H 140/70 H Pulse Oximetry 97 Oxygen Delivery Method Room Air 05/05/24 08:02 Temperature 97.8 F Pulse Rate 91 Respiratory Rate 18 Blood Pressure 134/83 Pulse Oximetry 95 Oxygen Delivery Method Room Air BMI result Body Mass Index 38.4 Labs 04/17/24 03:55 05/05/24 07:54 Labs: Laboratory Results - last 48 hr 05/03/24 05/04/24 05/05/24 16:27 08:34 07:54 Creatinine 0.64 0.62 Estim Creat Clear Calc 102.1 105.3 Estimated GFR > 60 > 60 Random Vancomycin 12.3 L Imaging Radiology Impressions: ITS Impressions Ankle X-Ray 04/27/24 16:38 IMPRESSION: Trimalleolar ankle fracture redemonstrated with evidence of some fracture healing of the distal fibula with minimal, if any, healing of the tibia fracture. On the lateral projection, the alignment appears unchanged compared with the intraoperative images and improved compared with the preoperative images. Persistent, albeit decreased, lateral subluxation of the talus with respect to the tibia on the frontal projection allowing for slight differences in projection. Medications Medications Current Medications Acetaminophen (Acetaminophen 325 Mg Tablet) 650 mg PO Q6H PRN PRN Reason: Headache/Pain Mild Scale (1-3) Last Admin: 05/03/24 16:03 Dose: 650 mg Al Hydroxide/Mg Hydroxide (Magnesium Hydrox/Alum Hydrox 30 Ml Oral.Susp) 30 ml PO Q6H PRN PRN Reason: Heartburn/Nausea Amlodipine Besylate (Amlodipine Besylate 5 Mg Tablet) 5 mg PO DAILY [facility]; Protocol Last Admin: 05/05/24 08:47 Dose: 5 mg Apixaban (Apixaban 5 Mg Tablet) 5 mg PO BID [facility] Last Admin: 05/05/24 08:45 Dose: 5 mg Ascorbic Acid (Ascorbic Acid 500 Mg Tablet) 500 mg PO DAILY [facility] Last Admin: 05/05/24 08:47 Dose: 500 mg Atorvastatin Calcium (Atorvastatin Calcium 40 Mg Tablet) 40 mg PO DAILY [facility] Last Admin: 05/05/24 08:45 Dose: 40 mg Cyanocobalamin (Cyanocobalamin (Vitamin B-12) 1,000 Mcg Tablet) 1,000 mcg PO DAILY [facility] Last Admin: 05/05/24 08:46 Dose: 1,000 mcg Docusate Sodium (Docusate Sodium 100 Mg Capsule) 200 mg PO DAILY [facility] Last Admin: 05/05/24 08:44 Dose: 200 mg Duloxetine HCl (Duloxetine Hcl 60 Mg Capsule.Dr) 60 mg PO BID [facility] Last Admin: 05/05/24 08:46 Dose: 60 mg Gabapentin (Gabapentin 300 Mg Capsule) 600 mg PO BEDTIME [facility] Last Admin: 05/04/24 21:14 Dose: 600 mg Gabapentin (Gabapentin 300 Mg Capsule) 300 mg PO DAILY [facility] Last Admin: 05/05/24 08:44 Dose: 300 mg Hydroxyzine HCl (Hydroxyzine Hcl 25 Mg Tablet) 25 mg PO Q6H PRN PRN Reason: Anxiety Last Admin: 05/04/24 09:22 Dose: 25 mg Vancomycin HCl 750 mg/ Sodium (Chloride) 265 mls @ 265 mls/hr IV Q12H [facility] Last Infusion: 05/05/24 07:02 Dose: Infused Lamotrigine (Lamotrigine 100 Mg Tablet) 300 mg PO BEDTIME [facility] Last Admin: 05/04/24 21:14 Dose: 300 mg Losartan Potassium (Losartan Potassium 25 Mg Tablet) 25 mg PO DAILY [facility]; Protocol Last Admin: 05/05/24 08:48 Dose: 25 mg Magnesium Hydroxide (Milk Of Magnesia 30 Ml Oral.Susp) 30 ml PO DAILY PRN PRN Reason: Constipation Metformin HCl (Metformin Hcl 500 Mg Tablet) 500 mg PO BID [facility] Last Admin: 05/05/24 08:46 Dose: 500 mg Metoprolol Tartrate (Metoprolol Tartrate 50 Mg Tablet) 50 mg PO BID [facility]; Protocol Last Admin: 05/05/24 08:44 Dose: 50 mg Nystatin (Nystatin Powder 15 Gm Bottle) 1 appl TOPICAL TID [facility]; Protocol Last Admin: 05/05/24 08:50 Dose: Not Given Omeprazole (Omeprazole 40 Mg Capsule.Dr) 40 mg PO DAILY@0630 [facility] Last Admin: 05/05/24 06:02 Dose: 40 mg Pharmacy Consult (Consult Rx Vancomycin Dosing) 1 each MISCELLANE DAILY PRN PRN Reason: Consult order Sodium Chloride (0.9 % Sodium Chloride Flush 10 Ml Syringe) 5 ml IVFLUSH QSHIFT [facility] Last Admin: 05/05/24 12:06 Dose: 5 ml Tramadol HCl (Tramadol Hcl 50 Mg Tablet) 100 mg PO Q6H PRN PRN Reason: moderate to severe pain Last Admin: 05/05/24 08:42 Dose: 100 mg Trazodone HCl (Trazodone Hcl 50 Mg Tablet) 50 mg PO BEDTIME MRX1 PRN PRN Reason: Insomnia Last Admin: 05/05/24 00:04 Dose: 50 mg Vitamin D (Cholecalciferol (Vitamin D3) 25 Mcg Tablet) 25 mcg PO DAILY [facility] Last Admin: 05/05/24 08:47 Dose: 25 mcg Allergies Allergies Allergy/AdvReac Type Severity Reaction Status Date / Time mirabegron [From Myrbetriq] Allergy Hallucinati Verified 04/17/24 02:13 ons Assessment & Plan Assessment & Plan (1) Trimalleolar fracture of right ankle: Qualifiers: Encounter type: subsequent encounter Fracture type: closed Fracture healing: with nonunion Qualified Code(s): S82.851K - Displaced trimalleolar fracture of right lower leg, subsequent encounter for closed fracture with nonunion Status: Acute Code(s): S82.851A - Displaced trimalleolar fracture of right lower leg, initial encounter for closed fracture Assessment and Plan: New cast applied NWB xrays ordered Plan The patient is a 73-year-old female with a past history of borderline personality disorder, major depressive disorder and recently admitted for suicidality ideation. The patient recently had several stressors such as a fracture in her ankle that required several surgeries. Plan 1. Continue with psychiatric medications. 2. Continue with follow-up as per surgery. 3. Start lidocaine patch for back pain. 4. Discharge to subacute rehab to continue treatment. Waiting for placement. Reason for continued inpatient stay Substantial Risk for: inability to function, rapid decompensation and med/psych decompensation Time Spent With Patient Time: Total time managing care of this patient today __20__ minutes.
[2024-05-05 16:27] LABS: Vancomycin Random 12.2 mcg/mL (15-20)
[2024-05-05 20:00] VITALS: BP 105/74; PULSE 83; RESP 18; TEMP 36.3; O2SAT 96
[2024-05-05] MEDS: lamoTRIgine 100 MG TABLET 300 MG PO (20:52)
[2024-05-05] MEDS: Gabapentin 300 MG CAPSULE 600 MG PO (20:52)
[2024-05-05] MEDS: Nystatin Powder 15 GM BOTTLE 1 APPL TOPICAL (20:55)
[2024-05-05] MEDS: hydrOXYzine HCL 25 MG TABLET PO (21:40)
[2024-05-06] VITALS (7 sets, daily range): BP systolic 125–130; BP diastolic 79–81; PULSE 68–97; RESP 16–18; TEMP 36.1–37.1; O2SAT 95–98
[2024-05-06] MEDS: 0.9 % Sodium Chloride Flush 10 ML SYRINGE 5 ML IVFLUSH ×4 (00:05→23:31)
[2024-05-06] MEDS: vancomycin HCL 750 MG in 0.9 % Sodium Chloride 250 ML 250 MG IV ×2 (06:16→17:56)
[2024-05-06] MEDS: Omeprazole 40 MG CAPSULE.DR PO (06:37)
[2024-05-06 08:21] LABS: Creatinine Clr Calc Pharmacy 90.7; Estimated Glomerular Filt Rate > 60
--- NOTE | 2024-05-06 08:40 | HE.PHANOTE ---
Re: Dwaine Renal function has decreased slightly. Continue current dose of 750mg Q12H. Trough to be drawn 05/07 at 1600.
[2024-05-06] MEDS: Atorvastatin Calcium 40 MG TABLET PO (08:45)
[2024-05-06] MEDS: metFORMIN HCl 500 MG TABLET PO ×2 (08:46→21:16)
[2024-05-06] MEDS: Losartan Potassium 25 MG TABLET PO (08:46)
[2024-05-06] MEDS: Gabapentin 300 MG CAPSULE PO (08:48)
[2024-05-06] MEDS: Metoprolol Tartrate 50 MG TABLET PO ×2 (08:48→21:15)
[2024-05-06] MEDS: DULoxetine HCl 60 MG CAPSULE.DR PO ×2 (08:48→21:28)
[2024-05-06] MEDS: Ascorbic Acid 500 MG TABLET PO (08:49)
[2024-05-06] MEDS: amLODIPine Besylate 5 MG TABLET PO (08:49)
[2024-05-06] MEDS: Apixaban 5 MG TABLET PO ×2 (08:51→21:17)
[2024-05-06] MEDS: Lidocaine 4 % Patch ADH..PATCH 2 PATCH TRANSDERMA (08:51)
[2024-05-06] MEDS: Cholecalciferol (Vitamin D3) 25 MCG TABLET PO (08:51)
[2024-05-06] MEDS: Cyanocobalamin (Vitamin B-12) 1,000 MCG TABLET 1000 MCG PO (08:51)
[2024-05-06] MEDS: Nystatin Powder 15 GM BOTTLE 1 APPL TOPICAL ×3 (09:01→21:18)
--- NOTE | 2024-05-06 12:56 | P.PNPSI_ITS ---
Subjective Subjective Date of Service: 05/06/24 Reason For Visit: Depression Subjective Notes: Conditional Voluntary Interim History: The nursing staff reported the patient had been on usual, and cooperative at times but easily redirectable. Yesterday we had a family meeting and explained that difficulties to transfer her to a subacute rehab since she complained of suicidality admission. So far the patient had been able to contract for safety no evidence of safety concerns. Waiting for placement. Mental Status Exam Mental Status Exam Patient Appearance: Appropriate Patient Orientation: Person and Situation Level of Consciousness: Awake and Appropriate Patient Behavior: Guarded and Passive Mood Description: Withdrawn Affect Description: Constricted Patient Cognition Impaired: Yes Ability to Follow Directions: Good Speech Pattern: Clear Hallucinations: None Delusions: Not Present Thought Process: Distracted and Slowed Thinking Thought Content: positive for [place] and positive for Poverty of Content Judgement: Fair Diagnostics Vital Signs (24Hr): Vital Signs - 24 hr 05/05/24 20:00 05/06/24 06:11 05/06/24 08:00 Temperature 97.4 F 98.7 F Pulse Rate 83 97 Respiratory Rate 18 18 18 Blood Pressure 105/74 125/79 Pulse Oximetry 96 98 Oxygen Delivery Method Room Air Room Air 05/06/24 08:46 05/06/24 08:48 05/06/24 08:49 Temperature Pulse Rate 97 Respiratory Rate Blood Pressure 125/79 125/79 125/79 Pulse Oximetry Oxygen Delivery Method BMI result Body Mass Index 38.4 Labs 04/17/24 03:55 05/06/24 07:55 Labs: Laboratory Results - last 48 hr 05/05/24 05/05/24 05/06/24 07:54 15:48 07:55 Creatinine 0.62 0.72 Estim Creat Clear Calc 105.3 90.7 Estimated GFR > 60 > 60 Random Vancomycin 12.2 L Imaging Radiology Impressions: ITS Impressions Ankle X-Ray 04/27/24 16:38 IMPRESSION: Trimalleolar ankle fracture redemonstrated with evidence of some fracture healing of the distal fibula with minimal, if any, healing of the tibia fracture. On the lateral projection, the alignment appears unchanged compared with the intraoperative images and improved compared with the preoperative images. Persistent, albeit decreased, lateral subluxation of the talus with respect to the tibia on the frontal projection allowing for slight differences in projection. Medications Medications Current Medications Acetaminophen (Acetaminophen 325 Mg Tablet) 650 mg PO Q6H PRN PRN Reason: Headache/Pain Mild Scale (1-3) Last Admin: 05/03/24 16:03 Dose: 650 mg Al Hydroxide/Mg Hydroxide (Magnesium Hydrox/Alum Hydrox 30 Ml Oral.Susp) 30 ml PO Q6H PRN PRN Reason: Heartburn/Nausea Amlodipine Besylate (Amlodipine Besylate 5 Mg Tablet) 5 mg PO DAILY [facility]; Protocol Last Admin: 05/06/24 08:49 Dose: 5 mg Apixaban (Apixaban 5 Mg Tablet) 5 mg PO BID [facility] Last Admin: 05/06/24 08:51 Dose: 5 mg Ascorbic Acid (Ascorbic Acid 500 Mg Tablet) 500 mg PO DAILY [facility] Last Admin: 05/06/24 08:49 Dose: 500 mg Atorvastatin Calcium (Atorvastatin Calcium 40 Mg Tablet) 40 mg PO DAILY [facility] Last Admin: 05/06/24 08:45 Dose: 40 mg Cyanocobalamin (Cyanocobalamin (Vitamin B-12) 1,000 Mcg Tablet) 1,000 mcg PO DAILY [facility] Last Admin: 05/06/24 08:51 Dose: 1,000 mcg Docusate Sodium (Docusate Sodium 100 Mg Capsule) 200 mg PO DAILY [facility] Last Admin: 05/06/24 11:24 Dose: Not Given Duloxetine HCl (Duloxetine Hcl 60 Mg Capsule.Dr) 60 mg PO BID [facility] Last Admin: 05/06/24 08:48 Dose: 60 mg Gabapentin (Gabapentin 300 Mg Capsule) 600 mg PO BEDTIME [facility] Last Admin: 05/05/24 20:52 Dose: 600 mg Gabapentin (Gabapentin 300 Mg Capsule) 300 mg PO DAILY [facility] Last Admin: 05/06/24 08:48 Dose: 300 mg Hydroxyzine HCl (Hydroxyzine Hcl 25 Mg Tablet) 25 mg PO Q6H PRN PRN Reason: Anxiety Last Admin: 05/05/24 21:40 Dose: 25 mg Vancomycin HCl 750 mg/ Sodium (Chloride) 265 mls @ 265 mls/hr IV Q12H [facility] Last Infusion: 05/06/24 08:05 Dose: Infused Lamotrigine (Lamotrigine 100 Mg Tablet) 300 mg PO BEDTIME [facility] Last Admin: 05/05/24 20:52 Dose: 300 mg Losartan Potassium (Losartan Potassium 25 Mg Tablet) 25 mg PO DAILY [facility]; Protocol Last Admin: 05/06/24 08:46 Dose: 25 mg Magnesium Hydroxide (Milk Of Magnesia 30 Ml Oral.Susp) 30 ml PO DAILY PRN PRN Reason: Constipation Metformin HCl (Metformin Hcl 500 Mg Tablet) 500 mg PO BID [facility] Last Admin: 05/06/24 08:46 Dose: 500 mg Metoprolol Tartrate (Metoprolol Tartrate 50 Mg Tablet) 50 mg PO BID [facility]; Protocol Last Admin: 05/06/24 08:48 Dose: 50 mg Nystatin (Nystatin Powder 15 Gm Bottle) 1 appl TOPICAL TID [facility]; Protocol Last Admin: 05/06/24 09:01 Dose: 1 appl Omeprazole (Omeprazole 40 Mg Capsule.Dr) 40 mg PO DAILY@0630 [facility] Last Admin: 05/06/24 06:37 Dose: 40 mg Pharmacy Consult (Consult Rx Vancomycin Dosing) 1 each MISCELLANE DAILY PRN PRN Reason: Consult order Sodium Chloride (0.9 % Sodium Chloride Flush 10 Ml Syringe) 5 ml IVFLUSH QSHIFT [facility] Last Admin: 05/06/24 09:00 Dose: 5 ml Tramadol HCl (Tramadol Hcl 50 Mg Tablet) 100 mg PO Q6H PRN PRN Reason: moderate to severe pain Last Admin: 05/05/24 20:54 Dose: 100 mg Trazodone HCl (Trazodone Hcl 50 Mg Tablet) 50 mg PO BEDTIME MRX1 PRN PRN Reason: Insomnia Last Admin: 05/05/24 21:39 Dose: 50 mg Vitamin D (Cholecalciferol (Vitamin D3) 25 Mcg Tablet) 25 mcg PO DAILY [facility] Last Admin: 05/06/24 08:51 Dose: 25 mcg Allergies Allergies Allergy/AdvReac Type Severity Reaction Status Date / Time mirabegron [From Myrbetriq] Allergy Hallucinati Verified 04/17/24 02:13 ons Assessment & Plan Assessment & Plan (1) Trimalleolar fracture of right ankle: Qualifiers: Encounter type: subsequent encounter Fracture type: closed Fracture healing: with nonunion Qualified Code(s): S82.851K - Displaced trimalleolar fracture of right lower leg, subsequent encounter for closed fracture with nonunion Status: Acute Code(s): S82.851A - Displaced trimalleolar fracture of right lower leg, initial encounter for closed fracture Assessment and Plan: New cast applied NWB xrays ordered Plan The patient is a 73-year-old female with a past history of borderline personality disorder, major depressive disorder and recently admitted for suicidality ideation. The patient recently had several stressors such as a fracture in her ankle that required several surgeries. Plan 1. Continue with psychiatric medications. 2. Continue with follow-up as per surgery. 3. Start lidocaine patch for back pain. 4. Discharge to subacute rehab to continue treatment. Waiting for placement. Reason for continued inpatient stay Substantial Risk for: inability to function, rapid decompensation and med/psych decompensation Time Spent With Patient Time: Total time managing care of this patient today ___20_ minutes.
[2024-05-06] MEDS: lamoTRIgine 100 MG TABLET 300 MG PO (21:15)
[2024-05-06] MEDS: traMADoL HCL 50 MG TABLET 100 MG PO (21:16)
[2024-05-06] MEDS: traZODone HCL 50 MG TABLET PO (21:17)
[2024-05-06] MEDS: Gabapentin 300 MG CAPSULE 600 MG PO (21:17)
[2024-05-07 00:19] VITALS: PULSE 77; RESP 16; O2SAT 96
[2024-05-07] MEDS: Acetaminophen 325 MG TABLET 650 MG PO ×2 (02:33→23:47)
[2024-05-07] MEDS: traZODone HCL 50 MG TABLET PO ×3 (02:33→23:47)
[2024-05-07] MEDS: vancomycin HCL 750 MG in 0.9 % Sodium Chloride 250 ML 250 MG IV ×2 (05:37→18:00)
[2024-05-07] MEDS: Omeprazole 40 MG CAPSULE.DR PO (06:07)
[2024-05-07 08:39] LABS: Creatinine Clr Calc Pharmacy 94.7; Estimated Glomerular Filt Rate > 60
[2024-05-07 09:06] VITALS: BP 128/66; PULSE 79; RESP 15; TEMP 36.4; O2SAT 95
[2024-05-07] MEDS: 0.9 % Sodium Chloride Flush 10 ML SYRINGE 5 ML IVFLUSH ×3 (09:08→23:20)
[2024-05-07] MEDS: Ascorbic Acid 500 MG TABLET PO (09:12)
[2024-05-07] MEDS: metFORMIN HCl 500 MG TABLET PO ×2 (09:12→21:22)
[2024-05-07] MEDS: Atorvastatin Calcium 40 MG TABLET PO (09:12)
[2024-05-07] MEDS: Cyanocobalamin (Vitamin B-12) 1,000 MCG TABLET 1000 MCG PO (09:12)
[2024-05-07] MEDS: DULoxetine HCl 60 MG CAPSULE.DR PO ×2 (09:12→21:21)
[2024-05-07] MEDS: Gabapentin 300 MG CAPSULE PO (09:12)
[2024-05-07] MEDS: amLODIPine Besylate 5 MG TABLET PO (09:12)
[2024-05-07] MEDS: Losartan Potassium 25 MG TABLET PO (09:12)
[2024-05-07] MEDS: Apixaban 5 MG TABLET PO ×2 (09:12→21:21)
[2024-05-07] MEDS: Metoprolol Tartrate 50 MG TABLET PO ×2 (09:13→21:22)
[2024-05-07] MEDS: Cholecalciferol (Vitamin D3) 25 MCG TABLET PO (09:13)
[2024-05-07 10:46] VITALS: BP 128/66; PULSE 79; O2SAT 95
--- NOTE | 2024-05-07 12:58 | HO.PSYCHPN ---
Subjective Subjective Date of Service: 05/07/24 Reason For Visit: Depression Subjective Notes: Conditional Voluntary Interim History: The nursing staff reported the patient had flat Affect. On interview the patient denies new symptoms, waiting for placement. Mental Status Exam Mental Status Exam Patient Appearance: Appropriate Patient Orientation: Person and Situation Level of Consciousness: Awake and Appropriate Patient Behavior: Guarded and Passive Mood Description: Withdrawn Affect Description: Constricted Patient Cognition Impaired: Yes Ability to Follow Directions: Good Speech Pattern: Clear Hallucinations: None Delusions: Not Present Thought Process: Distracted Thought Content: positive for [place] Judgement: Fair Diagnostics Vital Signs (24Hr): Vital Signs - 24 hr 05/06/24 20:00 05/06/24 21:15 05/07/24 00:19 Temperature 97 F Pulse Rate 68 68 Respiratory Rate 16 16 Blood Pressure 130/81 130/81 Pulse Oximetry 96 Oxygen Delivery Method Room Air 05/07/24 09:06 05/07/24 10:46 Temperature 97.5 F Pulse Rate 79 79 Respiratory Rate 15 Blood Pressure 128/66 128/66 Pulse Oximetry 95 95 Oxygen Delivery Method Room Air BMI result Body Mass Index 38.4 Labs 04/17/24 03:55 05/07/24 08:09 Labs: Laboratory Results - last 48 hr 05/05/24 05/06/24 05/07/24 15:48 07:55 08:09 Creatinine 0.72 0.69 Estim Creat Clear Calc 90.7 94.7 Estimated GFR > 60 > 60 Random Vancomycin 12.2 L Imaging Radiology Impressions: ITS Impressions Ankle X-Ray 04/27/24 16:38 IMPRESSION: Trimalleolar ankle fracture redemonstrated with evidence of some fracture healing of the distal fibula with minimal, if any, healing of the tibia fracture. On the lateral projection, the alignment appears unchanged compared with the intraoperative images and improved compared with the preoperative images. Persistent, albeit decreased, lateral subluxation of the talus with respect to the tibia on the frontal projection allowing for slight differences in projection. Medications Medications Current Medications Acetaminophen (Acetaminophen 325 Mg Tablet) 650 mg PO Q6H PRN PRN Reason: Headache/Pain Mild Scale (1-3) Last Admin: 05/07/24 02:33 Dose: 650 mg Al Hydroxide/Mg Hydroxide (Magnesium Hydrox/Alum Hydrox 30 Ml Oral.Susp) 30 ml PO Q6H PRN PRN Reason: Heartburn/Nausea Amlodipine Besylate (Amlodipine Besylate 5 Mg Tablet) 5 mg PO DAILY [facility]; Protocol Last Admin: 05/07/24 09:12 Dose: 5 mg Apixaban (Apixaban 5 Mg Tablet) 5 mg PO BID [facility] Last Admin: 05/07/24 09:12 Dose: 5 mg Ascorbic Acid (Ascorbic Acid 500 Mg Tablet) 500 mg PO DAILY [facility] Last Admin: 05/07/24 09:12 Dose: 500 mg Atorvastatin Calcium (Atorvastatin Calcium 40 Mg Tablet) 40 mg PO DAILY [facility] Last Admin: 05/07/24 09:12 Dose: 40 mg Cyanocobalamin (Cyanocobalamin (Vitamin B-12) 1,000 Mcg Tablet) 1,000 mcg PO DAILY [facility] Last Admin: 05/07/24 09:12 Dose: 1,000 mcg Docusate Sodium (Docusate Sodium 100 Mg Capsule) 200 mg PO DAILY [facility] Last Admin: 05/07/24 09:16 Dose: Not Given Duloxetine HCl (Duloxetine Hcl 60 Mg Capsule.Dr) 60 mg PO BID [facility] Last Admin: 05/07/24 09:12 Dose: 60 mg Gabapentin (Gabapentin 300 Mg Capsule) 600 mg PO BEDTIME [facility] Last Admin: 05/06/24 21:17 Dose: 600 mg Gabapentin (Gabapentin 300 Mg Capsule) 300 mg PO DAILY [facility] Last Admin: 05/07/24 09:12 Dose: 300 mg Hydroxyzine HCl (Hydroxyzine Hcl 25 Mg Tablet) 25 mg PO Q6H PRN PRN Reason: Anxiety Last Admin: 05/05/24 21:40 Dose: 25 mg Vancomycin HCl 750 mg/ Sodium (Chloride) 265 mls @ 265 mls/hr IV Q12H [facility] Last Infusion: 05/07/24 06:54 Dose: Infused Lamotrigine (Lamotrigine 100 Mg Tablet) 300 mg PO BEDTIME [facility] Last Admin: 05/06/24 21:15 Dose: 300 mg Losartan Potassium (Losartan Potassium 25 Mg Tablet) 25 mg PO DAILY [facility]; Protocol Last Admin: 05/07/24 09:12 Dose: 25 mg Magnesium Hydroxide (Milk Of Magnesia 30 Ml Oral.Susp) 30 ml PO DAILY PRN PRN Reason: Constipation Metformin HCl (Metformin Hcl 500 Mg Tablet) 500 mg PO BID [facility] Last Admin: 05/07/24 09:12 Dose: 500 mg Metoprolol Tartrate (Metoprolol Tartrate 50 Mg Tablet) 50 mg PO BID [facility]; Protocol Last Admin: 05/07/24 09:13 Dose: 50 mg Nystatin (Nystatin Powder 15 Gm Bottle) 1 appl TOPICAL TID [facility]; Protocol Last Admin: 05/06/24 21:18 Dose: 1 appl Omeprazole (Omeprazole 40 Mg Capsule.Dr) 40 mg PO DAILY@0630 [facility] Last Admin: 05/07/24 06:07 Dose: 40 mg Pharmacy Consult (Consult Rx Vancomycin Dosing) 1 each MISCELLANE DAILY PRN PRN Reason: Consult order Sodium Chloride (0.9 % Sodium Chloride Flush 10 Ml Syringe) 5 ml IVFLUSH QSHIFT [facility] Last Admin: 05/07/24 09:08 Dose: 5 ml Tramadol HCl (Tramadol Hcl 50 Mg Tablet) 100 mg PO Q6H PRN PRN Reason: moderate to severe pain Last Admin: 05/06/24 21:16 Dose: 100 mg Trazodone HCl (Trazodone Hcl 50 Mg Tablet) 50 mg PO BEDTIME MRX1 PRN PRN Reason: Insomnia Last Admin: 05/07/24 02:33 Dose: 50 mg Vitamin D (Cholecalciferol (Vitamin D3) 25 Mcg Tablet) 25 mcg PO DAILY [facility] Last Admin: 05/07/24 09:13 Dose: 25 mcg Allergies Allergies Allergy/AdvReac Type Severity Reaction Status Date / Time mirabegron [From Myrbetriq] Allergy Hallucinati Verified 04/17/24 02:13 ons Assessment & Plan Assessment & Plan (1) Trimalleolar fracture of right ankle: Qualifiers: Encounter type: subsequent encounter Fracture healing: with nonunion Fracture type: closed Qualified Code(s): S82.851K - Displaced trimalleolar fracture of right lower leg, subsequent encounter for closed fracture with nonunion Status: Acute Code(s): S82.851A - Displaced trimalleolar fracture of right lower leg, initial encounter for closed fracture Assessment and Plan: New cast applied NWB xrays ordered Plan The patient is a 73-year-old female with a past history of borderline personality disorder, major depressive disorder and recently admitted for suicidality ideation. The patient recently had several stressors such as a fracture in her ankle that required several surgeries. Plan 1. Continue with psychiatric medications. 2. Continue with follow-up as per surgery. 3. Start lidocaine patch for back pain. 4. Discharge to subacute rehab to continue treatment. Waiting for placement. Reason for continued inpatient stay Substantial Risk for: inability to function, rapid decompensation and med/psych decompensation Time Spent With Patient Time: Total time managing care of this patient today __20__ minutes.
[2024-05-07 16:49] LABS: Vancomycin Random 12.8 mcg/mL (15-20)
--- NOTE | 2024-05-07 16:59 | HE.PHANOTE ---
RE: VANCO DOSING Random came back as 12.8, continue with 750 mg q12h. Next random is scheduled for 05/09/24 @1600. If trough trends down at that time, will consider increasing dose for 1 day to put level back in range.
[2024-05-07 20:00] VITALS: BP 129/69; PULSE 89; RESP 18; TEMP 36.6; O2SAT 99
[2024-05-07] MEDS: Nystatin Powder 15 GM BOTTLE 1 APPL TOPICAL (21:18)
[2024-05-07] MEDS: Gabapentin 300 MG CAPSULE 600 MG PO (21:19)
[2024-05-07] MEDS: traMADoL HCL 50 MG TABLET 100 MG PO (21:20)
[2024-05-07] MEDS: lamoTRIgine 100 MG TABLET 300 MG PO (21:21)
[2024-05-07 21:22] VITALS: BP 129/69; PULSE 89
--- NOTE | 2024-05-07 23:41 | PC.RT ---
Pt refused for the BIPAP night, not happy about having to consistently wear mask
[2024-05-08] MEDS: Omeprazole 40 MG CAPSULE.DR PO (05:49)
[2024-05-08] MEDS: vancomycin HCL 750 MG in 0.9 % Sodium Chloride 250 ML 250 MG IV ×2 (05:56→17:52)
[2024-05-08 07:34] LABS: Creatinine Clr Calc Pharmacy 96.1; Estimated Glomerular Filt Rate > 60
[2024-05-08 08:00] VITALS: BP 141/85; PULSE 77; RESP 18; TEMP 36.3; O2SAT 97
[2024-05-08 08:06] VITALS: BP 141/85
[2024-05-08] MEDS: amLODIPine Besylate 5 MG TABLET PO (08:06)
[2024-05-08 08:07] VITALS: BP 141/85
[2024-05-08] MEDS: Gabapentin 300 MG CAPSULE PO (08:07)
[2024-05-08] MEDS: Cholecalciferol (Vitamin D3) 25 MCG TABLET PO (08:07)
[2024-05-08] MEDS: Losartan Potassium 25 MG TABLET PO (08:07)
[2024-05-08] MEDS: metFORMIN HCl 500 MG TABLET PO ×2 (08:07→20:34)
[2024-05-08] MEDS: DULoxetine HCl 60 MG CAPSULE.DR PO ×2 (08:07→20:34)
[2024-05-08 08:08] VITALS: BP 141/85; PULSE 77
[2024-05-08] MEDS: Cyanocobalamin (Vitamin B-12) 1,000 MCG TABLET 1000 MCG PO (08:08)
[2024-05-08] MEDS: Atorvastatin Calcium 40 MG TABLET PO (08:08)
[2024-05-08] MEDS: Apixaban 5 MG TABLET PO ×2 (08:08→20:33)
[2024-05-08] MEDS: Ascorbic Acid 500 MG TABLET PO (08:08)
[2024-05-08] MEDS: Metoprolol Tartrate 50 MG TABLET PO ×2 (08:08→20:34)
[2024-05-08] MEDS: 0.9 % Sodium Chloride Flush 10 ML SYRINGE 5 ML IVFLUSH ×2 (08:09→16:08)
--- NOTE | 2024-05-08 09:38 | HO.PSYCHPN ---
Subjective Subjective Date of Service: 05/08/24 Reason For Visit: Depression Subjective Notes: Conditional Voluntary Interim History: The nursing staff reported that yesterday the patient was agitated in the evening very angry sodium a staff. She declined care and CPAP. On interview the patient reported that she feels stressed out since there is no clear transferred to subacute rehab. She was tearful stating that she did not know that she had osteomyelitis and nobody explained to her. I assume that she already knew about these since she had been on vancomycin for several weeks. Mental Status Exam Mental Status Exam Patient Appearance: Appropriate Patient Orientation: Person and Situation Level of Consciousness: Awake and Appropriate Patient Behavior: Guarded and Passive Mood Description: Withdrawn Affect Description: Constricted and Labile Patient Cognition Impaired: Yes Ability to Follow Directions: Good Speech Pattern: Clear Hallucinations: None Delusions: Not Present Thought Process: Distracted and Slowed Thinking Thought Content: positive for [place] and positive for Poverty of Content Judgement: Fair Diagnostics Vital Signs (24Hr): Vital Signs - 24 hr 05/07/24 10:46 05/07/24 20:00 05/07/24 21:22 Temperature 97.8 F Pulse Rate 79 89 89 Respiratory Rate 18 Blood Pressure 128/66 129/69 129/69 Pulse Oximetry 95 99 Oxygen Delivery Method Room Air 05/08/24 08:00 05/08/24 08:06 05/08/24 08:07 Temperature 97.4 F Pulse Rate 77 Respiratory Rate 18 Blood Pressure 141/85 H 141/85 H 141/85 H Pulse Oximetry 97 Oxygen Delivery Method Room Air 05/08/24 08:08 Temperature Pulse Rate 77 Respiratory Rate Blood Pressure 141/85 H Pulse Oximetry Oxygen Delivery Method BMI result Body Mass Index 38.4 Labs 04/17/24 03:55 05/08/24 06:58 Labs: Laboratory Results - last 48 hr 05/07/24 05/07/24 05/08/24 08:09 16:11 06:58 Creatinine 0.69 0.68 Estim Creat Clear Calc 94.7 96.1 Estimated GFR > 60 > 60 Hold Red Top See Note Random Vancomycin 12.8 L Imaging Radiology Impressions: ITS Impressions Ankle X-Ray 04/27/24 16:38 IMPRESSION: Trimalleolar ankle fracture redemonstrated with evidence of some fracture healing of the distal fibula with minimal, if any, healing of the tibia fracture. On the lateral projection, the alignment appears unchanged compared with the intraoperative images and improved compared with the preoperative images. Persistent, albeit decreased, lateral subluxation of the talus with respect to the tibia on the frontal projection allowing for slight differences in projection. Medications Medications Current Medications Acetaminophen (Acetaminophen 325 Mg Tablet) 650 mg PO Q6H PRN PRN Reason: Headache/Pain Mild Scale (1-3) Last Admin: 05/07/24 23:47 Dose: 650 mg Al Hydroxide/Mg Hydroxide (Magnesium Hydrox/Alum Hydrox 30 Ml Oral.Susp) 30 ml PO Q6H PRN PRN Reason: Heartburn/Nausea Amlodipine Besylate (Amlodipine Besylate 5 Mg Tablet) 5 mg PO DAILY [facility]; Protocol Last Admin: 05/08/24 08:06 Dose: 5 mg Apixaban (Apixaban 5 Mg Tablet) 5 mg PO BID [facility] Last Admin: 05/08/24 08:08 Dose: 5 mg Ascorbic Acid (Ascorbic Acid 500 Mg Tablet) 500 mg PO DAILY [facility] Last Admin: 05/08/24 08:08 Dose: 500 mg Atorvastatin Calcium (Atorvastatin Calcium 40 Mg Tablet) 40 mg PO DAILY [facility] Last Admin: 05/08/24 08:08 Dose: 40 mg Cyanocobalamin (Cyanocobalamin (Vitamin B-12) 1,000 Mcg Tablet) 1,000 mcg PO DAILY [facility] Last Admin: 05/08/24 08:08 Dose: 1,000 mcg Docusate Sodium (Docusate Sodium 100 Mg Capsule) 200 mg PO DAILY [facility] Last Admin: 05/08/24 08:23 Dose: Not Given Duloxetine HCl (Duloxetine Hcl 60 Mg Capsule.Dr) 60 mg PO BID [facility] Last Admin: 05/08/24 08:07 Dose: 60 mg Gabapentin (Gabapentin 300 Mg Capsule) 600 mg PO BEDTIME [facility] Last Admin: 05/07/24 21:19 Dose: 600 mg Gabapentin (Gabapentin 300 Mg Capsule) 300 mg PO DAILY [facility] Last Admin: 05/08/24 08:07 Dose: 300 mg Hydroxyzine HCl (Hydroxyzine Hcl 25 Mg Tablet) 25 mg PO Q6H PRN PRN Reason: Anxiety Last Admin: 05/05/24 21:40 Dose: 25 mg Vancomycin HCl 750 mg/ Sodium (Chloride) 265 mls @ 265 mls/hr IV Q12H [facility] Last Admin: 05/08/24 05:56 Dose: 250 mls/hr Lamotrigine (Lamotrigine 100 Mg Tablet) 300 mg PO BEDTIME [facility] Last Admin: 05/07/24 21:21 Dose: 300 mg Losartan Potassium (Losartan Potassium 25 Mg Tablet) 25 mg PO DAILY [facility]; Protocol Last Admin: 05/08/24 08:07 Dose: 25 mg Magnesium Hydroxide (Milk Of Magnesia 30 Ml Oral.Susp) 30 ml PO DAILY PRN PRN Reason: Constipation Metformin HCl (Metformin Hcl 500 Mg Tablet) 500 mg PO BID [facility] Last Admin: 05/08/24 08:07 Dose: 500 mg Metoprolol Tartrate (Metoprolol Tartrate 50 Mg Tablet) 50 mg PO BID [facility]; Protocol Last Admin: 05/08/24 08:08 Dose: 50 mg Nystatin (Nystatin Powder 15 Gm Bottle) 1 appl TOPICAL TID [facility]; Protocol Last Admin: 05/07/24 21:18 Dose: 1 appl Omeprazole (Omeprazole 40 Mg Capsule.Dr) 40 mg PO DAILY@0630 [facility] Last Admin: 05/08/24 05:49 Dose: 40 mg Pharmacy Consult (Consult Rx Vancomycin Dosing) 1 each MISCELLANE DAILY PRN PRN Reason: Consult order Sodium Chloride (0.9 % Sodium Chloride Flush 10 Ml Syringe) 5 ml IVFLUSH QSHIFT [facility] Last Admin: 05/08/24 08:09 Dose: 5 ml Tramadol HCl (Tramadol Hcl 50 Mg Tablet) 100 mg PO Q6H PRN PRN Reason: moderate to severe pain Last Admin: 05/07/24 21:20 Dose: 100 mg Trazodone HCl (Trazodone Hcl 50 Mg Tablet) 50 mg PO BEDTIME MRX1 PRN PRN Reason: Insomnia Last Admin: 05/07/24 23:47 Dose: 50 mg Vitamin D (Cholecalciferol (Vitamin D3) 25 Mcg Tablet) 25 mcg PO DAILY [facility] Last Admin: 05/08/24 08:07 Dose: 25 mcg Allergies Allergies Allergy/AdvReac Type Severity Reaction Status Date / Time mirabegron [From Myrbetriq] Allergy Hallucinati Verified 04/17/24 02:13 ons Assessment & Plan Assessment & Plan (1) Trimalleolar fracture of right ankle: Qualifiers: Encounter type: subsequent encounter Fracture healing: with nonunion Fracture type: closed Qualified Code(s): S82.851K - Displaced trimalleolar fracture of right lower leg, subsequent encounter for closed fracture with nonunion Status: Acute Code(s): S82.851A - Displaced trimalleolar fracture of right lower leg, initial encounter for closed fracture Assessment and Plan: New cast applied NWB xrays ordered Plan The patient is a 73-year-old female with a past history of borderline personality disorder, major depressive disorder and recently admitted for suicidality ideation. The patient recently had several stressors such as a fracture in her ankle that required several surgeries. Plan 1. Continue with psychiatric medications. 2. Continue with follow-up as per surgery. 3. Start lidocaine patch for back pain. 4. Discharge to subacute rehab to continue treatment. Waiting for placement. Reason for continued inpatient stay Substantial Risk for: inability to function, rapid decompensation and med/psych decompensation Time Spent With Patient Time: Total time managing care of this patient today __20__ minutes.
[2024-05-08] MEDS: Nystatin Powder 15 GM BOTTLE 1 APPL TOPICAL ×4 (16:04→20:33)
[2024-05-08 20:00] VITALS: BP 135/77; PULSE 76; RESP 18; TEMP 36.1; O2SAT 98
[2024-05-08] MEDS: lamoTRIgine 100 MG TABLET 300 MG PO (20:33)
[2024-05-08] MEDS: traZODone HCL 50 MG TABLET PO (20:34)
[2024-05-08] MEDS: Gabapentin 300 MG CAPSULE 600 MG PO (20:34)
[2024-05-08] MEDS: hydrOXYzine HCL 25 MG TABLET PO (20:35)
[2024-05-08 23:30] VITALS: PULSE 75; RESP 28; O2SAT 95
[2024-05-09] MEDS: 0.9 % Sodium Chloride Flush 10 ML SYRINGE 5 ML IVFLUSH ×4 (03:43→23:51)
[2024-05-09] MEDS: Omeprazole 40 MG CAPSULE.DR PO (05:55)
[2024-05-09] MEDS: vancomycin HCL 750 MG in 0.9 % Sodium Chloride 250 ML 250 MG IV ×2 (05:56→18:07)
[2024-05-09 06:33] LABS: Creatinine Clr Calc Pharmacy 96.1; Estimated Glomerular Filt Rate > 60
[2024-05-09 08:19] VITALS: BP 124/78; PULSE 90; RESP 18; TEMP 36.1; O2SAT 95
--- NOTE | 2024-05-09 09:35 | P.PNPSI_ITS ---
Subjective Subjective Date of Service: 05/09/24 Reason For Visit: Depression Subjective Notes: Conditional Voluntary Interim History: The nursing staff reported the patient received her IV vancomycin she was pleasant most of the day but later the evening refused to use her CPAP machine she slept 7 hours. On interview the patient denies new symptoms, waiting for placement. Mental Status Exam Mental Status Exam Patient Appearance: Appropriate Patient Orientation: Person and Situation Level of Consciousness: Awake and Appropriate Patient Behavior: Guarded and Passive Mood Description: Withdrawn Affect Description: Constricted Patient Cognition Impaired: Yes Ability to Follow Directions: Good Speech Pattern: Clear Hallucinations: None Delusions: Not Present Thought Process: Distracted and Slowed Thinking Thought Content: positive for [place] and positive for Poverty of Content Judgement: Fair Diagnostics Vital Signs (24Hr): Vital Signs - 24 hr 05/08/24 20:00 05/08/24 23:30 Temperature 97 F Pulse Rate 76 Respiratory Rate 18 28 H Blood Pressure 135/77 Pulse Oximetry 98 Oxygen Delivery Method Room Air BMI result Body Mass Index 38.4 Labs 04/17/24 03:55 05/09/24 06:08 Labs: Laboratory Results - last 48 hr 05/07/24 05/08/24 05/09/24 16:11 06:58 06:08 Hold Purple Top SEE NOTE Creatinine 0.68 0.68 Estim Creat Clear Calc 96.1 96.1 Estimated GFR > 60 > 60 Hold Red Top See Note Random Vancomycin 12.8 L Imaging Radiology Impressions: ITS Impressions Ankle X-Ray 04/27/24 16:38 IMPRESSION: Trimalleolar ankle fracture redemonstrated with evidence of some fracture healing of the distal fibula with minimal, if any, healing of the tibia fracture. On the lateral projection, the alignment appears unchanged compared with the intraoperative images and improved compared with the preoperative images. Persistent, albeit decreased, lateral subluxation of the talus with respect to the tibia on the frontal projection allowing for slight differences in projection. Medications Medications Current Medications Acetaminophen (Acetaminophen 325 Mg Tablet) 650 mg PO Q6H PRN PRN Reason: Headache/Pain Mild Scale (1-3) Last Admin: 05/07/24 23:47 Dose: 650 mg Al Hydroxide/Mg Hydroxide (Magnesium Hydrox/Alum Hydrox 30 Ml Oral.Susp) 30 ml PO Q6H PRN PRN Reason: Heartburn/Nausea Amlodipine Besylate (Amlodipine Besylate 5 Mg Tablet) 5 mg PO DAILY [facility]; Protocol Last Admin: 05/08/24 08:06 Dose: 5 mg Apixaban (Apixaban 5 Mg Tablet) 5 mg PO BID [facility] Last Admin: 05/08/24 20:33 Dose: 5 mg Ascorbic Acid (Ascorbic Acid 500 Mg Tablet) 500 mg PO DAILY [facility] Last Admin: 05/08/24 08:08 Dose: 500 mg Atorvastatin Calcium (Atorvastatin Calcium 40 Mg Tablet) 40 mg PO DAILY [facility] Last Admin: 05/08/24 08:08 Dose: 40 mg Cyanocobalamin (Cyanocobalamin (Vitamin B-12) 1,000 Mcg Tablet) 1,000 mcg PO DAILY [facility] Last Admin: 05/08/24 08:08 Dose: 1,000 mcg Docusate Sodium (Docusate Sodium 100 Mg Capsule) 200 mg PO DAILY [facility] Last Admin: 05/08/24 08:23 Dose: Not Given Duloxetine HCl (Duloxetine Hcl 60 Mg Capsule.Dr) 60 mg PO BID [facility] Last Admin: 05/08/24 20:34 Dose: 60 mg Gabapentin (Gabapentin 300 Mg Capsule) 600 mg PO BEDTIME [facility] Last Admin: 05/08/24 20:34 Dose: 600 mg Gabapentin (Gabapentin 300 Mg Capsule) 300 mg PO DAILY [facility] Last Admin: 05/08/24 08:07 Dose: 300 mg Hydroxyzine HCl (Hydroxyzine Hcl 25 Mg Tablet) 25 mg PO Q6H PRN PRN Reason: Anxiety Last Admin: 05/08/24 20:35 Dose: 25 mg Vancomycin HCl 750 mg/ Sodium (Chloride) 265 mls @ 265 mls/hr IV Q12H [facility] Last Infusion: 05/09/24 07:04 Dose: Infused Lamotrigine (Lamotrigine 100 Mg Tablet) 300 mg PO BEDTIME [facility] Last Admin: 05/08/24 20:33 Dose: 300 mg Losartan Potassium (Losartan Potassium 25 Mg Tablet) 25 mg PO DAILY [facility]; Protocol Last Admin: 05/08/24 08:07 Dose: 25 mg Magnesium Hydroxide (Milk Of Magnesia 30 Ml Oral.Susp) 30 ml PO DAILY PRN PRN Reason: Constipation Metformin HCl (Metformin Hcl 500 Mg Tablet) 500 mg PO BID [facility] Last Admin: 05/08/24 20:34 Dose: 500 mg Metoprolol Tartrate (Metoprolol Tartrate 50 Mg Tablet) 50 mg PO BID [facility]; Protocol Last Admin: 05/08/24 20:34 Dose: 50 mg Nystatin (Nystatin Powder 15 Gm Bottle) 1 appl TOPICAL TID [facility]; Protocol Last Admin: 05/08/24 20:51 Dose: Not Given Omeprazole (Omeprazole 40 Mg Capsule.Dr) 40 mg PO DAILY@0630 [facility] Last Admin: 05/09/24 05:55 Dose: 40 mg Pharmacy Consult (Consult Rx Vancomycin Dosing) 1 each MISCELLANE DAILY PRN PRN Reason: Consult order Sodium Chloride (0.9 % Sodium Chloride Flush 10 Ml Syringe) 5 ml IVFLUSH QSHIFT [facility] Last Admin: 05/09/24 03:43 Dose: 5 ml Tramadol HCl (Tramadol Hcl 50 Mg Tablet) 100 mg PO Q6H PRN PRN Reason: moderate to severe pain Last Admin: 05/07/24 21:20 Dose: 100 mg Trazodone HCl (Trazodone Hcl 50 Mg Tablet) 50 mg PO BEDTIME MRX1 PRN PRN Reason: Insomnia Last Admin: 05/08/24 20:34 Dose: 50 mg Vitamin D (Cholecalciferol (Vitamin D3) 25 Mcg Tablet) 25 mcg PO DAILY [facility] Last Admin: 05/08/24 08:07 Dose: 25 mcg Allergies Allergies Allergy/AdvReac Type Severity Reaction Status Date / Time mirabegron [From Myrbetriq] Allergy Hallucinati Verified 04/17/24 02:13 ons Assessment & Plan Assessment & Plan (1) Trimalleolar fracture of right ankle: Qualifiers: Encounter type: subsequent encounter Fracture healing: with nonunion F racture type: closed Qualified Code(s): S82.851K - Displaced trimalleolar fracture of right lower leg, subsequent encounter for closed fracture with nonunion Status: Acute Code(s): S82.851A - Displaced trimalleolar fracture of right lower leg, initial encounter for closed fracture Assessment and Plan: New cast applied NWB xrays ordered Plan The patient is a 73-year-old female with a past history of borderline personality disorder, major depressive disorder and recently admitted for suicidality ideation. The patient recently had several stressors such as a fracture in her ankle that required several surgeries. Plan 1. Continue with psychiatric medications. 2. Continue with follow-up as per surgery. 3. Start lidocaine patch for back pain. 4. Discharge to subacute rehab to continue treatment. Waiting for placement. Reason for continued inpatient stay Substantial Risk for: inability to function, rapid decompensation and med/psych decompensation Time Spent With Patient Time: Total time managing care of this patient today __20__ minutes.
[2024-05-09] MEDS: DULoxetine HCl 60 MG CAPSULE.DR PO ×2 (10:09→20:48)
[2024-05-09] MEDS: Cholecalciferol (Vitamin D3) 25 MCG TABLET PO (10:09)
[2024-05-09] MEDS: Cyanocobalamin (Vitamin B-12) 1,000 MCG TABLET 1000 MCG PO (10:09)
[2024-05-09] MEDS: metFORMIN HCl 500 MG TABLET PO ×2 (10:09→20:48)
[2024-05-09] MEDS: Atorvastatin Calcium 40 MG TABLET PO (10:09)
[2024-05-09] MEDS: Gabapentin 300 MG CAPSULE PO (10:09)
[2024-05-09 10:10] VITALS: BP 124/78; PULSE 90
[2024-05-09] MEDS: Apixaban 5 MG TABLET PO ×2 (10:10→20:48)
[2024-05-09] MEDS: Ascorbic Acid 500 MG TABLET PO (10:10)
[2024-05-09] MEDS: Metoprolol Tartrate 50 MG TABLET PO ×2 (10:10→20:49)
[2024-05-09] MEDS: amLODIPine Besylate 5 MG TABLET PO (10:10)
[2024-05-09] MEDS: Acetaminophen 325 MG TABLET 650 MG PO ×2 (10:10→18:08)
[2024-05-09 10:11] VITALS: BP 124/78
[2024-05-09] MEDS: Losartan Potassium 25 MG TABLET PO (10:11)
[2024-05-09] MEDS: Nystatin Powder 15 GM BOTTLE 1 APPL TOPICAL ×2 (10:12→20:53)
[2024-05-09 16:39] LABS: Vancomycin Random 12.5 mcg/mL (15-20)
--- NOTE | 2024-05-09 16:54 | PC.NURSE ---
Trough level 12.5 (low) and spoke with pharmacist Marco who said no change in dose.
[2024-05-09 20:00] VITALS: BP 131/72; PULSE 86; RESP 16; TEMP 36.5; O2SAT 97
[2024-05-09] MEDS: lamoTRIgine 100 MG TABLET 300 MG PO (20:48)
[2024-05-09 20:49] VITALS: BP 131/72; PULSE 86
[2024-05-09] MEDS: traMADoL HCL 50 MG TABLET 100 MG PO (20:49)
[2024-05-09] MEDS: traZODone HCL 50 MG TABLET PO (20:50)
[2024-05-09] MEDS: Gabapentin 300 MG CAPSULE 600 MG PO (20:50)
[2024-05-09 23:37] VITALS: PULSE 86; RESP 16; O2SAT 97
[2024-05-10] MEDS: vancomycin HCL 750 MG in 0.9 % Sodium Chloride 250 ML 250 MG IV (05:35)
[2024-05-10] MEDS: Omeprazole 40 MG CAPSULE.DR PO (06:27)
[2024-05-10 08:23] VITALS: BP 135/71; PULSE 80; RESP 18; TEMP 36.2; O2SAT 97
[2024-05-10 08:23] LABS: Creatinine Clr Calc Pharmacy 87.1; Estimated Glomerular Filt Rate > 60
[2024-05-10] MEDS: Metoprolol Tartrate 50 MG TABLET PO ×2 (09:15→21:56)
[2024-05-10] MEDS: Gabapentin 300 MG CAPSULE PO (09:15)
[2024-05-10] MEDS: Ascorbic Acid 500 MG TABLET PO (09:16)
[2024-05-10] MEDS: Apixaban 5 MG TABLET PO ×2 (09:16→21:57)
[2024-05-10] MEDS: Cyanocobalamin (Vitamin B-12) 1,000 MCG TABLET 1000 MCG PO (09:16)
[2024-05-10] MEDS: DULoxetine HCl 60 MG CAPSULE.DR PO ×2 (09:17→21:54)
[2024-05-10] MEDS: Cholecalciferol (Vitamin D3) 25 MCG TABLET PO (09:17)
[2024-05-10] MEDS: amLODIPine Besylate 5 MG TABLET PO (09:17)
[2024-05-10] MEDS: Atorvastatin Calcium 40 MG TABLET PO (09:17)
[2024-05-10] MEDS: metFORMIN HCl 500 MG TABLET PO ×2 (09:17→21:56)
[2024-05-10] MEDS: Losartan Potassium 25 MG TABLET PO (09:18)
[2024-05-10] MEDS: Nystatin Powder 15 GM BOTTLE 1 APPL TOPICAL ×2 (09:21→21:54)
[2024-05-10] MEDS: 0.9 % Sodium Chloride Flush 10 ML SYRINGE 5 ML IVFLUSH ×3 (09:30→23:08)
--- NOTE | 2024-05-10 14:25 | P.PNPSI_ITS ---
Subjective Subjective Date of Service: 05/10/24 Reason For Visit: Depression Subjective Notes: Conditional Voluntary Interim History: The nursing staff reported the patient had been in her bed most of the time, with flat affect eating well compliant with treatment. On interview the patient denies new symptoms besides tried road after he CPAP treatment Mental Status Exam Mental Status Exam Patient Appearance: Appropriate Patient Orientation: Person and Situation Level of Consciousness: Awake and Appropriate Patient Behavior: Guarded and Passive Mood Description: Withdrawn Affect Description: Constricted Patient Cognition Impaired: Yes Ability to Follow Directions: Good Speech Pattern: Clear Hallucinations: None Delusions: Not Present Thought Process: Distracted and Slowed Thinking Thought Content: positive for [place] and positive for Poverty of Content Judgement: Fair Diagnostics Vital Signs (24Hr): Vital Signs - 24 hr 05/09/24 20:00 05/09/24 20:49 05/09/24 23:37 Temperature 97.7 F Pulse Rate 86 86 Respiratory Rate 16 16 Blood Pressure 131/72 131/72 Pulse Oximetry 97 Oxygen Delivery Method Room Air 05/10/24 08:23 Temperature 97.1 F Pulse Rate 80 Respiratory Rate 18 Blood Pressure 135/71 Pulse Oximetry 97 Oxygen Delivery Method Room Air BMI result Body Mass Index 38.4 Labs 04/17/24 03:55 05/10/24 08:02 Labs: Laboratory Results - last 48 hr 05/09/24 05/09/24 05/10/24 06:08 16:05 08:02 Hold Purple Top SEE NOTE Creatinine 0.68 0.75 Estim Creat Clear Calc 96.1 87.1 Estimated GFR > 60 > 60 Random Vancomycin 12.5 L Imaging Radiology Impressions: ITS Impressions Ankle X-Ray 04/27/24 16:38 IMPRESSION: Trimalleolar ankle fracture redemonstrated with evidence of some fracture healing of the distal fibula with minimal, if any, healing of the tibia fracture. On the lateral projection, the alignment appears unchanged compared with the intraoperative images and improved compared with the preoperative images. Persistent, albeit decreased, lateral subluxation of the talus with respect to the tibia on the frontal projection allowing for slight differences in projection. Medications Medications Current Medications Acetaminophen (Acetaminophen 325 Mg Tablet) 650 mg PO Q6H PRN PRN Reason: Headache/Pain Mild Scale (1-3) Last Admin: 05/09/24 18:08 Dose: 650 mg Al Hydroxide/Mg Hydroxide (Magnesium Hydrox/Alum Hydrox 30 Ml Oral.Susp) 30 ml PO Q6H PRN PRN Reason: Heartburn/Nausea Amlodipine Besylate (Amlodipine Besylate 5 Mg Tablet) 5 mg PO DAILY [facility]; Protocol Last Admin: 05/10/24 09:17 Dose: 5 mg Apixaban (Apixaban 5 Mg Tablet) 5 mg PO BID [facility] Last Admin: 05/10/24 09:16 Dose: 5 mg Ascorbic Acid (Ascorbic Acid 500 Mg Tablet) 500 mg PO DAILY [facility] Last Admin: 05/10/24 09:16 Dose: 500 mg Atorvastatin Calcium (Atorvastatin Calcium 40 Mg Tablet) 40 mg PO DAILY [facility] Last Admin: 05/10/24 09:17 Dose: 40 mg Cyanocobalamin (Cyanocobalamin (Vitamin B-12) 1,000 Mcg Tablet) 1,000 mcg PO DAILY [facility] Last Admin: 05/10/24 09:16 Dose: 1,000 mcg Docusate Sodium (Docusate Sodium 100 Mg Capsule) 200 mg PO DAILY [facility] Last Admin: 05/10/24 09:21 Dose: Not Given Duloxetine HCl (Duloxetine Hcl 60 Mg Capsule.Dr) 60 mg PO BID [facility] Last Admin: 05/10/24 09:17 Dose: 60 mg Gabapentin (Gabapentin 300 Mg Capsule) 600 mg PO BEDTIME [facility] Last Admin: 05/09/24 20:50 Dose: 600 mg Gabapentin (Gabapentin 300 Mg Capsule) 300 mg PO DAILY [facility] Last Admin: 05/10/24 09:15 Dose: 300 mg Hydroxyzine HCl (Hydroxyzine Hcl 25 Mg Tablet) 25 mg PO Q6H PRN PRN Reason: Anxiety Last Admin: 05/08/24 20:35 Dose: 25 mg Vancomycin HCl 750 mg/ Sodium (Chloride) 265 mls @ 265 mls/hr IV Q12H [facility] Last Infusion: 05/10/24 06:30 Dose: 250 mls/hr Lamotrigine (Lamotrigine 100 Mg Tablet) 300 mg PO BEDTIME [facility] Last Admin: 05/09/24 20:48 Dose: 300 mg Losartan Potassium (Losartan Potassium 25 Mg Tablet) 25 mg PO DAILY [facility]; Protocol Last Admin: 05/10/24 09:18 Dose: 25 mg Magnesium Hydroxide (Milk Of Magnesia 30 Ml Oral.Susp) 30 ml PO DAILY PRN PRN Reason: Constipation Metformin HCl (Metformin Hcl 500 Mg Tablet) 500 mg PO BID [facility] Last Admin: 05/10/24 09:17 Dose: 500 mg Metoprolol Tartrate (Metoprolol Tartrate 50 Mg Tablet) 50 mg PO BID [facility]; Protocol Last Admin: 05/10/24 09:15 Dose: 50 mg Nystatin (Nystatin Powder 15 Gm Bottle) 1 appl TOPICAL TID [facility]; Protocol Last Admin: 05/10/24 09:21 Dose: 1 appl Omeprazole (Omeprazole 40 Mg Capsule.Dr) 40 mg PO DAILY@0630 [facility] Last Admin: 05/10/24 06:27 Dose: 40 mg Pharmacy Consult (Consult Rx Vancomycin Dosing) 1 each MISCELLANE DAILY PRN PRN Reason: Consult order Sodium Chloride (0.9 % Sodium Chloride Flush 10 Ml Syringe) 5 ml IVFLUSH QSHIFT [facility] Last Admin: 05/10/24 09:30 Dose: 5 ml Tramadol HCl (Tramadol Hcl 50 Mg Tablet) 100 mg PO Q6H PRN PRN Reason: moderate to severe pain Last Admin: 05/09/24 20:49 Dose: 100 mg Trazodone HCl (Trazodone Hcl 50 Mg Tablet) 50 mg PO BEDTIME MRX1 PRN PRN Reason: Insomnia Last Admin: 05/09/24 20:50 Dose: 50 mg Vitamin D (Cholecalciferol (Vitamin D3) 25 Mcg Tablet) 25 mcg PO DAILY [facility] Last Admin: 05/10/24 09:17 Dose: 25 mcg Allergies Allergies Allergy/AdvReac Type Severity Reaction Status Date / Time mirabegron [From Myrbetriq] Allergy Hallucinati Verified 04/17/24 02:13 ons Assessment & Plan Assessment & Plan (1) Trimalleolar fracture of right ankle: Qualifiers: Encounter type: subsequent encounter Fracture type: closed Fracture healing: with nonunion Qualified Code(s): S82.851K - Displaced trimalleolar fracture of right lower leg, subsequent encounter for closed fracture with nonunion Status: Acute Code(s): S82.851A - Displaced trimalleolar fracture of right lower leg, initial encounter for closed fracture Assessment and Plan: New cast applied NWB xrays ordered Plan The patient is a 73-year-old female with a past history of borderline personality disorder, major depressive disorder and recently admitted for suicidality ideation. The patient recently had several stressors such as a fracture in her ankle that required several surgeries. Plan 1. Continue with psychiatric medications. 2. Continue with follow-up as per surgery. 3. Start lidocaine patch for back pain. 4. Discharge to subacute rehab to continue treatment. Waiting for placement. Reason for continued inpatient stay Substantial Risk for: inability to function, rapid decompensation and med/psych decompensation Time Spent With Patient Time: Total time managing care of this patient today __20__ minutes.
--- NOTE | 2024-05-10 17:54 | PC.NURSE ---
Vancomycin discontinued today. PICC line flushed per protocol easily. PICC line dressing dry and intact without any signs or symptoms of complications. Patient refused to go to supper. Right great toe with scant amount of bleeding, area washed with soap and water and bandaid applied. Patient tolerated procedure well.
[2024-05-10 20:00] VITALS: BP 121/67; PULSE 74; RESP 18; TEMP 36.4; O2SAT 96
[2024-05-10] MEDS: lamoTRIgine 100 MG TABLET 300 MG PO (21:55)
[2024-05-10] MEDS: Gabapentin 300 MG CAPSULE 600 MG PO (21:55)
[2024-05-10 21:56] VITALS: BP 121/67; PULSE 74
[2024-05-10] MEDS: traZODone HCL 50 MG TABLET PO (21:56)
[2024-05-10 23:22] VITALS: PULSE 75; RESP 17; O2SAT 97
[2024-05-11] MEDS: traMADoL HCL 50 MG TABLET 100 MG PO ×3 (00:15→21:39)
[2024-05-11] MEDS: traZODone HCL 50 MG TABLET PO ×3 (00:16→23:33)
[2024-05-11] MEDS: hydrOXYzine HCL 25 MG TABLET PO ×2 (00:16→23:33)
[2024-05-11] MEDS: Omeprazole 40 MG CAPSULE.DR PO (06:21)
[2024-05-11 08:55] VITALS: BP 136/77; PULSE 85; RESP 18; TEMP 36.2; O2SAT 96
[2024-05-11] MEDS: Metoprolol Tartrate 50 MG TABLET PO ×2 (09:45→21:41)
[2024-05-11] MEDS: Gabapentin 300 MG CAPSULE PO (09:46)
[2024-05-11] MEDS: Apixaban 5 MG TABLET PO ×2 (09:46→21:41)
[2024-05-11] MEDS: Cyanocobalamin (Vitamin B-12) 1,000 MCG TABLET 1000 MCG PO (09:46)
[2024-05-11] MEDS: Ascorbic Acid 500 MG TABLET PO (09:46)
[2024-05-11] MEDS: DULoxetine HCl 60 MG CAPSULE.DR PO ×2 (09:47→21:39)
[2024-05-11] MEDS: amLODIPine Besylate 5 MG TABLET PO (09:47)
[2024-05-11] MEDS: Atorvastatin Calcium 40 MG TABLET PO (09:47)
[2024-05-11] MEDS: metFORMIN HCl 500 MG TABLET PO ×2 (09:47→21:41)
[2024-05-11] MEDS: Cholecalciferol (Vitamin D3) 25 MCG TABLET PO (09:49)
[2024-05-11] MEDS: Losartan Potassium 25 MG TABLET PO (09:49)
[2024-05-11] MEDS: 0.9 % Sodium Chloride Flush 10 ML SYRINGE 5 ML IVFLUSH ×2 (09:50→15:36)
[2024-05-11] MEDS: Nystatin Powder 15 GM BOTTLE 1 APPL TOPICAL ×2 (09:53→21:39)
--- NOTE | 2024-05-11 12:54 | P.PNPSI_ITS ---
Subjective Subjective Date of Service: 05/11/24 Reason For Visit: Depression Subjective Notes: Conditional Voluntary Interim History: The nursing staff reported that they IV vancomycin was discontinue, she feels more relieved with that. On interview the patient denies new symptoms, waiting for placement. Mental Status Exam Mental Status Exam Patient Orientation: Person and Situation Level of Consciousness: Awake and Appropriate Patient Behavior: Guarded and Passive Mood Description: Withdrawn Affect Description: Constricted Patient Cognition Impaired: Yes Ability to Follow Directions: Good Speech Pattern: Clear Hallucinations: None Delusions: Not Present Thought Process: Intact Thought Content: positive for [place] and positive for Poverty of Content Judgement: Fair Diagnostics Vital Signs (24Hr): Vital Signs - 24 hr 05/10/24 20:00 05/10/24 21:56 05/10/24 23:22 Temperature 97.6 F Pulse Rate 74 74 Respiratory Rate 18 17 Blood Pressure 121/67 121/67 Pulse Oximetry 96 Oxygen Delivery Method Room Air 05/11/24 08:55 Temperature 97.1 F Pulse Rate 85 Respiratory Rate 18 Blood Pressure 136/77 Pulse Oximetry 96 Oxygen Delivery Method Room Air BMI result Body Mass Index 38.4 Labs 04/17/24 03:55 05/10/24 08:02 Labs: Laboratory Results - last 48 hr 05/09/24 05/10/24 16:05 08:02 Creatinine 0.75 Estim Creat Clear Calc 87.1 Estimated GFR > 60 Random Vancomycin 12.5 L Imaging Radiology Impressions: ITS Impressions Ankle X-Ray 04/27/24 16:38 IMPRESSION: Trimalleolar ankle fracture redemonstrated with evidence of some fracture healing of the distal fibula with minimal, if any, healing of the tibia fracture. On the lateral projection, the alignment appears unchanged compared with the intraoperative images and improved compared with the preoperative images. Persistent, albeit decreased, lateral subluxation of the talus with respect to the tibia on the frontal projection allowing for slight differences in projection. Medications Medications Current Medications Acetaminophen (Acetaminophen 325 Mg Tablet) 650 mg PO Q6H PRN PRN Reason: Headache/Pain Mild Scale (1-3) Last Admin: 05/09/24 18:08 Dose: 650 mg Al Hydroxide/Mg Hydroxide (Magnesium Hydrox/Alum Hydrox 30 Ml Oral.Susp) 30 ml PO Q6H PRN PRN Reason: Heartburn/Nausea Amlodipine Besylate (Amlodipine Besylate 5 Mg Tablet) 5 mg PO DAILY [facility]; Protocol Last Admin: 05/11/24 09:47 Dose: 5 mg Apixaban (Apixaban 5 Mg Tablet) 5 mg PO BID [facility] Last Admin: 05/11/24 09:46 Dose: 5 mg Ascorbic Acid (Ascorbic Acid 500 Mg Tablet) 500 mg PO DAILY [facility] Last Admin: 05/11/24 09:46 Dose: 500 mg Atorvastatin Calcium (Atorvastatin Calcium 40 Mg Tablet) 40 mg PO DAILY [facility] Last Admin: 05/11/24 09:47 Dose: 40 mg Benzocaine (Throat Lozenge, Medicated Lozenge) 1 lozenge MUCOUS MEM Q2H PRN PRN Reason: Sore Throat Cyanocobalamin (Cyanocobalamin (Vitamin B-12) 1,000 Mcg Tablet) 1,000 mcg PO DAILY [facility] Last Admin: 05/11/24 09:46 Dose: 1,000 mcg Docusate Sodium (Docusate Sodium 100 Mg Capsule) 200 mg PO DAILY [facility] Last Admin: 05/11/24 09:53 Dose: Not Given Duloxetine HCl (Duloxetine Hcl 60 Mg Capsule.Dr) 60 mg PO BID [facility] Last Admin: 05/11/24 09:47 Dose: 60 mg Gabapentin (Gabapentin 300 Mg Capsule) 600 mg PO BEDTIME [facility] Last Admin: 05/10/24 21:55 Dose: 600 mg Gabapentin (Gabapentin 300 Mg Capsule) 300 mg PO DAILY [facility] Last Admin: 05/11/24 09:46 Dose: 300 mg Hydroxyzine HCl (Hydroxyzine Hcl 25 Mg Tablet) 25 mg PO Q6H PRN PRN Reason: Anxiety Last Admin: 05/11/24 00:16 Dose: 25 mg Lamotrigine (Lamotrigine 100 Mg Tablet) 300 mg PO BEDTIME [facility] Last Admin: 05/10/24 21:55 Dose: 300 mg Losartan Potassium (Losartan Potassium 25 Mg Tablet) 25 mg PO DAILY [facility]; Protocol Last Admin: 05/11/24 09:49 Dose: 25 mg Magnesium Hydroxide (Milk Of Magnesia 30 Ml Oral.Susp) 30 ml PO DAILY PRN PRN Reason: Constipation Metformin HCl (Metformin Hcl 500 Mg Tablet) 500 mg PO BID [facility] Last Admin: 05/11/24 09:47 Dose: 500 mg Metoprolol Tartrate (Metoprolol Tartrate 50 Mg Tablet) 50 mg PO BID [facility]; Protocol Last Admin: 05/11/24 09:45 Dose: 50 mg Nystatin (Nystatin Powder 15 Gm Bottle) 1 appl TOPICAL TID [facility]; Protocol Last Admin: 05/11/24 09:53 Dose: 1 appl Omeprazole (Omeprazole 40 Mg Capsule.Dr) 40 mg PO DAILY@0630 [facility] Last Admin: 05/11/24 06:21 Dose: 40 mg Sodium Chloride (0.9 % Sodium Chloride Flush 10 Ml Syringe) 5 ml IVFLUSH QSHIFT [facility] Last Admin: 05/11/24 09:50 Dose: 5 ml Tramadol HCl (Tramadol Hcl 50 Mg Tablet) 100 mg PO Q6H PRN PRN Reason: moderate to severe pain Last Admin: 05/11/24 09:45 Dose: 100 mg Trazodone HCl (Trazodone Hcl 50 Mg Tablet) 50 mg PO BEDTIME MRX1 PRN PRN Reason: Insomnia Last Admin: 05/11/24 00:16 Dose: 50 mg Vitamin D (Cholecalciferol (Vitamin D3) 25 Mcg Tablet) 25 mcg PO DAILY [facility] Last Admin: 05/11/24 09:49 Dose: 25 mcg Allergies Allergies Allergy/AdvReac Type Severity Reaction Status Date / Time mirabegron [From Myrbetriq] Allergy Hallucinati Verified 04/17/24 02:13 ons Assessment & Plan Assessment & Plan (1) Trimalleolar fracture of right ankle: Qualifiers: Encounter type: subsequent encounter Fracture type: closed Fracture healing: with nonunion Qualified Code(s): S82.851K - Displaced trimalleolar fracture of right lower leg, subsequent encounter for closed fracture with nonunion Status: Acute Code(s): S82.851A - Displaced trimalleolar fracture of right lower leg, initial encounter for closed fracture Assessment and Plan: New cast applied NWB xrays ordered Plan The patient is a 73-year-old female with a past history of borderline personality disorder, major depressive disorder and recently admitted for suicidality ideation. The patient recently had several stressors such as a fracture in her ankle that required several surgeries. Plan 1. Continue with psychiatric medications. 2. Continue with follow-up as per surgery. 3. Start lidocaine patch for back pain. 4. Discharge to subacute rehab to continue treatment. Waiting for placement. Reason for continued inpatient stay Substantial Risk for: inability to function, rapid decompensation and med/psych decompensation Time Spent With Patient Time: Total time managing care of this patient today __20__ minutes.
--- NOTE | 2024-05-11 19:16 | PM.PNORT ---
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 and open wounds Interval history: 10 weeks s/p Right ankle fx w/ dislocation patient is resting in bed cast intact no concerns Physical Exam Vital Signs: Vital Signs: Last Vital Signs Temp 97.1 F 05/11/24 08:55 Pulse 85 05/11/24 08:55 Resp 18 05/11/24 08:55 BP 136/77 05/11/24 08:55 Pulse Ox 96 05/11/24 08:55 O2 Del Method Room Air 05/11/24 08:55 BMI result Body Mass Index 38.4 Extrem: Other: Right ankle skin intact No open wounds No drainage Prominent medial mal NVI Procedures Date of Service Date of Service: 05/11/24 Cast Removal Reason for procedure: other (cast change) Cut Saw used: Yes Cast procedure: removal Post Removal Neuro Exam: intact Post Removal Vascular Exam: intact Patient Tolerated Procedure: well Orthopedic Splinting/Casting Injury #1: Side: right Lower extremity injury location: ankle Additional comments: lower leg cast applied today--short leg cast Progress Note: A&P Assessment and plan (1) Trimalleolar fracture of right ankle: Status: Acute Assessment and Plan: New short leg cast applied today Remain NWB RLE F/u in orthopedic office in 2 weeks for cast off with xrays --> likely transfer to boot Time Spent With Patient Time: Total time managing care of this patient today ____ minutes. Quality Stroke Does the patient have a stroke diagnosis?: No VTE Prior VTE?: No VTE Risk Level:: Medical - moderate - high VTE Device Contraindication: Treatment Not Indicated VTE Drug Contraindication: N/A - Med Ordered
[2024-05-11 20:00] VITALS: BP 119/66; PULSE 84; RESP 18; TEMP 36.2; O2SAT 97
[2024-05-11] MEDS: lamoTRIgine 100 MG TABLET 300 MG PO (21:39)
[2024-05-11] MEDS: Gabapentin 300 MG CAPSULE 600 MG PO (21:40)
[2024-05-11 21:41] VITALS: BP 119/66; PULSE 84
[2024-05-11] MEDS: Acetaminophen 325 MG TABLET 650 MG PO (23:33)
[2024-05-12] VITALS: PULSE 93; RESP 19; O2SAT 95
[2024-05-12] MEDS: 0.9 % Sodium Chloride Flush 10 ML SYRINGE 5 ML IVFLUSH ×2 (00:30→08:49)
[2024-05-12] MEDS: Omeprazole 40 MG CAPSULE.DR PO (06:20)
[2024-05-12 08:15] VITALS: BP 114/70; PULSE 77; RESP 17; TEMP 35.9; O2SAT 92
[2024-05-12] MEDS: Gabapentin 300 MG CAPSULE PO (08:40)
[2024-05-12] MEDS: Metoprolol Tartrate 50 MG TABLET PO ×2 (08:40→20:30)
[2024-05-12] MEDS: Cholecalciferol (Vitamin D3) 25 MCG TABLET PO (08:41)
[2024-05-12] MEDS: amLODIPine Besylate 5 MG TABLET PO (08:41)
[2024-05-12] MEDS: DULoxetine HCl 60 MG CAPSULE.DR PO ×2 (08:41→20:31)
[2024-05-12] MEDS: Ascorbic Acid 500 MG TABLET PO (08:41)
[2024-05-12] MEDS: Atorvastatin Calcium 40 MG TABLET PO (08:41)
[2024-05-12] MEDS: metFORMIN HCl 500 MG TABLET PO ×2 (08:41→20:31)
[2024-05-12] MEDS: Apixaban 5 MG TABLET PO ×2 (08:42→20:31)
[2024-05-12] MEDS: Losartan Potassium 25 MG TABLET PO (08:42)
[2024-05-12] MEDS: Cyanocobalamin (Vitamin B-12) 1,000 MCG TABLET 1000 MCG PO (08:42)
--- NOTE | 2024-05-12 12:30 | HO.PSYCHPN ---
Subjective Subjective Date of Service: 05/12/24 Reason For Visit: Depression Subjective Notes: Conditional Voluntary Interim History: The nursing staff reported the patient had been fully compliant with treatment cooperative and pleasant. On interview the patient denies new symptoms she is waiting for placement. The patient has already finished more than 60 days of vancomycin IV for osteomyelitis, at this point she has already finished her treatment and she will not require more IV antibiotics at this point. The case was reviewed by Dr. Arias. The patient does not have any psychiatric condition, or safety concern that would prohibit her to continue her treatment in a subacute rehab facility. At this moment the patient is cleared for transfer. Mental Status Exam Mental Status Exam Patient Appearance: Well Grooomed and Appropriate Patient Orientation: Person and Situation Level of Consciousness: Awake and Appropriate Patient Behavior: Guarded and Passive Mood Description: Withdrawn Affect Description: Constricted Patient Cognition Impaired: Yes Ability to Follow Directions: Good Speech Pattern: Clear Hallucinations: None Delusions: Not Present Thought Process: Distracted and Slowed Thinking Thought Content: positive for [place] and positive for Circumstantial Judgement: Fair Diagnostics Vital Signs (24Hr): Vital Signs - 24 hr 05/11/24 20:00 05/11/24 21:41 05/12/24 00:00 Temperature 97.1 F Pulse Rate 84 84 Respiratory Rate 18 19 Blood Pressure 119/66 119/66 Pulse Oximetry 97 Oxygen Delivery Method Room Air 05/12/24 08:15 Temperature 96.7 F L Pulse Rate 77 Respiratory Rate 17 Blood Pressure 114/70 Pulse Oximetry 92 Oxygen Delivery Method Room Air BMI result Body Mass Index 38.4 Labs 04/17/24 03:55 05/10/24 08:02 Imaging Radiology Impressions: ITS Impressions Ankle X-Ray 04/27/24 16:38 IMPRESSION: Trimalleolar ankle fracture redemonstrated with evidence of some fracture healing of the distal fibula with minimal, if any, healing of the tibia fracture. On the lateral projection, the alignment appears unchanged compared with the intraoperative images and improved compared with the preoperative images. Persistent, albeit decreased, lateral subluxation of the talus with respect to the tibia on the frontal projection allowing for slight differences in projection. Medications Medications Current Medications Acetaminophen (Acetaminophen 325 Mg Tablet) 650 mg PO Q6H PRN PRN Reason: Headache/Pain Mild Scale (1-3) Last Admin: 05/11/24 23:33 Dose: 650 mg Al Hydroxide/Mg Hydroxide (Magnesium Hydrox/Alum Hydrox 30 Ml Oral.Susp) 30 ml PO Q6H PRN PRN Reason: Heartburn/Nausea Amlodipine Besylate (Amlodipine Besylate 5 Mg Tablet) 5 mg PO DAILY [facility]; Protocol Last Admin: 05/12/24 08:41 Dose: 5 mg Apixaban (Apixaban 5 Mg Tablet) 5 mg PO BID [facility] Last Admin: 05/12/24 08:42 Dose: 5 mg Ascorbic Acid (Ascorbic Acid 500 Mg Tablet) 500 mg PO DAILY [facility] Last Admin: 05/12/24 08:41 Dose: 500 mg Atorvastatin Calcium (Atorvastatin Calcium 40 Mg Tablet) 40 mg PO DAILY [facility] Last Admin: 05/12/24 08:41 Dose: 40 mg Benzocaine (Throat Lozenge, Medicated Lozenge) 1 lozenge MUCOUS MEM Q2H PRN PRN Reason: Sore Throat Cyanocobalamin (Cyanocobalamin (Vitamin B-12) 1,000 Mcg Tablet) 1,000 mcg PO DAILY [facility] Last Admin: 05/12/24 08:42 Dose: 1,000 mcg Docusate Sodium (Docusate Sodium 100 Mg Capsule) 200 mg PO DAILY [facility] Last Admin: 05/12/24 08:43 Dose: Not Given Duloxetine HCl (Duloxetine Hcl 60 Mg Capsule.Dr) 60 mg PO BID [facility] Last Admin: 05/12/24 08:41 Dose: 60 mg Gabapentin (Gabapentin 300 Mg Capsule) 600 mg PO BEDTIME [facility] Last Admin: 05/11/24 21:40 Dose: 600 mg Gabapentin (Gabapentin 300 Mg Capsule) 300 mg PO DAILY [facility] Last Admin: 05/12/24 08:40 Dose: 300 mg Hydroxyzine HCl (Hydroxyzine Hcl 25 Mg Tablet) 25 mg PO Q6H PRN PRN Reason: Anxiety Last Admin: 05/11/24 23:33 Dose: 25 mg Lamotrigine (Lamotrigine 100 Mg Tablet) 300 mg PO BEDTIME [facility] Last Admin: 05/11/24 21:39 Dose: 300 mg Losartan Potassium (Losartan Potassium 25 Mg Tablet) 25 mg PO DAILY [facility]; Protocol Last Admin: 05/12/24 08:42 Dose: 25 mg Magnesium Hydroxide (Milk Of Magnesia 30 Ml Oral.Susp) 30 ml PO DAILY PRN PRN Reason: Constipation Metformin HCl (Metformin Hcl 500 Mg Tablet) 500 mg PO BID [facility] Last Admin: 05/12/24 08:41 Dose: 500 mg Metoprolol Tartrate (Metoprolol Tartrate 50 Mg Tablet) 50 mg PO BID [facility]; Protocol Last Admin: 05/12/24 08:40 Dose: 50 mg Nystatin (Nystatin Powder 15 Gm Bottle) 1 appl TOPICAL TID [facility]; Protocol Last Admin: 05/12/24 08:50 Dose: Not Given Omeprazole (Omeprazole 40 Mg Capsule.Dr) 40 mg PO DAILY@0630 [facility] Last Admin: 05/12/24 06:20 Dose: 40 mg Sodium Chloride (0.9 % Sodium Chloride Flush 10 Ml Syringe) 5 ml IVFLUSH QSHIFT [facility] Last Admin: 05/12/24 08:49 Dose: 5 ml Tramadol HCl (Tramadol Hcl 50 Mg Tablet) 100 mg PO Q6H PRN PRN Reason: moderate to severe pain Last Admin: 05/11/24 21:39 Dose: 100 mg Trazodone HCl (Trazodone Hcl 50 Mg Tablet) 50 mg PO BEDTIME MRX1 PRN PRN Reason: Insomnia Last Admin: 05/11/24 23:33 Dose: 50 mg Vitamin D (Cholecalciferol (Vitamin D3) 25 Mcg Tablet) 25 mcg PO DAILY [facility] Last Admin: 05/12/24 08:41 Dose: 25 mcg Allergies Allergies Allergy/AdvReac Type Severity Reaction Status Date / Time [email or web address] [From Myrbetriq] Allergy Hallucinati Verified 04/17/24 02:13 ons Assessment & Plan Assessment & Plan (1) Trimalleolar fracture of right ankle: Qualifiers: Encounter type: subsequent encounter Fracture type: closed Fracture healing: with nonunion Qualified Code(s): S82.851K - Displaced trimalleolar fracture of right lower leg, subsequent encounter for closed fracture with nonunion Status: Acute Code(s): S82.851A - Displaced trimalleolar fracture of right lower leg, initial encounter for closed fracture Assessment and Plan: New short leg cast applied today Remain NWB RLE F/u in orthopedic office in 2 weeks for cast off with xrays --> likely transfer to boot Plan The patient is a 73-year-old female, , with a past history of borderline personality disorder, major depressive disorder and a recent fracture of her ankle that required surgery by orthopedic service who was brought into the facility since she disclosed suicidal thoughts. The patient, whenever she is frustrated disclosed suicidal thoughts but she has never hurt herself seriously in the last 40 years. She was transferring to this facility for psychiatric treatment but so far, the patient had been stable waiting for placement. Plan 1. Continue with medical treatment. 2. The patient has already finished her vancomycin IV for 60 days. We are going to discontinue the central line. 3. Transferred to subacute rehab. Reason for continued inpatient stay Substantial Risk for: inability to function, rapid decompensation and med/psych decompensation Time Spent With Patient Time: Total time managing care of this patient today __20__ minutes.
--- NOTE | 2024-05-12 13:50 | P.DS_ITS ---
DS: Providers Provider Date of Service: 05/12/24 Date of admission: 04/19/24 19:00 Date of discharge: 05/12/24 Primary care physician: Unknown Physician Consults: 04/20/24 14:56 Consult to Wound Care Routine Reason for consultation: Need dressing orders for R leg wounds in cast windows 04/20/24 15:56 Consult to Orthopedics Routine Consulting Provider: [facility] Reason for consultation: Hx of ankle fracture with cast Has provider been notified: No DS: Diagnosis Discharge Diagnosis (1) Trimalleolar fracture of right ankle: Status: Acute DS: Medications Discharge Medications Home Medications: Home Medications ?Medication ?Instructions ?Recorded ?Confirmed ascorbic acid (vitamin C) 500 mg 500 mg PO DAILY 02/24/24 04/17/24 tablet cholecalciferol (vitamin D3) 25 25 mcg PO DAILY 02/24/24 04/17/24 mcg (1,000 unit) tablet cyanocobalamin (vitamin B-12) 1,000 mcg PO DAILY 02/24/24 04/17/24 1,000 mcg tablet duloxetine 30 mg capsule,delayed 30 mg PO DAILY 02/24/24 04/17/24 release duloxetine 60 mg capsule,delayed 60 mg PO DAILY 02/24/24 04/17/24 release gabapentin 300 mg capsule 300 mg PO DAILY 02/24/24 04/17/24 gabapentin 300 mg capsule 600 mg PO BEDTIME 02/24/24 04/17/24 lamotrigine 150 mg tablet 300 mg PO BEDTIME 02/24/24 04/17/24 Previous Rx's ?Medication ?Instructions ?Recorded acetaminophen 325 mg tablet 650 mg (2 x 325 mg) PO Q6H PRN 09/16/23 Pain, Mild (Pain Scale 1-3) #30 tabs apixaban 5 mg tablet (Eliquis) 5 mg PO BID #60 tabs 09/16/23 atorvastatin 40 mg tablet 40 mg PO DAILY 30 days #30 tabs 09/16/23 metformin 500 mg tablet 500 mg PO BID 30 days #60 tabs 09/16/23 metoprolol tartrate 50 mg tablet 50 mg PO BID 30 days #60 tabs 09/16/23 nystatin 100,000 unit/gram topical 1 appl topical TID 30 days #5 grams 09/16/23 powder omeprazole 40 mg capsule,delayed 40 mg PO DAILY 30 days #30 caps 09/16/23 release amlodipine 5 mg tablet 5 mg PO DAILY 30 days #30 tabs 04/16/24 docusate sodium 100 mg capsule 200 mg (2 x 100 mg) PO DAILY 30 04/16/24 days #60 caps enoxaparin 40 mg/0.4 mL 40 mg (0.4 mL) subcut Q24H 42 days 04/16/24 subcutaneous syringe #16.8 mL losartan 25 mg tablet 25 mg PO DAILY 30 days #30 tabs 04/16/24 vancomycin 1 gram/250 mL in 0.9 % 1 g (250 mL) IV Q12H 6 weeks 04/16/24 sodium chloride intravenous #3,000 mL Mental Status Exam Mental Status Exam Patient Appearance: Appropriate Patient Orientation: Person and Situation Level of Consciousness: Awake and Appropriate Patient Behavior: Appropriate and Cooperative Mood Description: Calm Affect Description: Constricted Patient Cognition Impaired: Yes Ability to Follow Directions: Good Speech Pattern: Clear Hallucinations: None Delusions: Not Present Thought Process: Distracted and Slowed Thinking Thought Content: positive for [place] and positive for Poverty of Content Judgement: Fair Data Data Completed and Pending Completed studies during hospitalization [Text1]: 05/05/24 05/06/24 05/07/24 15:48 07:55 08:09 Hold Purple Top Creatinine 0.72 0.69 Estim Creat Clear Calc 90.7 94.7 Estimated GFR > 60 > 60 Hold Red Top Random Vancomycin 12.2 L 05/07/24 05/08/24 05/09/24 16:11 06:58 06:08 Hold Purple Top SEE NOTE Creatinine 0.68 0.68 Estim Creat Clear Calc 96.1 96.1 Estimated GFR > 60 > 60 Hold Red Top See Note Random Vancomycin 12.8 L 05/09/24 05/10/24 16:05 08:02 Hold Purple Top Creatinine 0.75 Estim Creat Clear Calc 87.1 Estimated GFR > 60 Hold Red Top Random Vancomycin 12.5 L 04/17/24 Unknown Urine clean catch - Urine dyson top Urine Culture - Final Pseudomonas aeruginosa Imaging Diagnostic Imaging Impressions Ankle X-Ray 04/27/24 16:38 IMPRESSION: Trimalleolar ankle fracture redemonstrated with evidence of some fracture healing of the distal fibula with minimal, if any, healing of the tibia fracture. On the lateral projection, the alignment appears unchanged compared with the intraoperative images and improved compared with the preoperative images. Persistent, albeit decreased, lateral subluxation of the talus with respect to the tibia on the frontal projection allowing for slight differences in projection. DS: Summary Hospital Course Hospital Course: The patient is a 73-year-old female, , resident of an assisted living facility who was brought from the emergency room of another hospital since she disclosed suicidal ideation. The patient is very well known by this team since she had been admitted before, she carries a diagnosis of major depressive disorder and borderline personality disorder. The main stressor is that the few months ago the patient had a massive fracture in her ankle and required several surgeries and when she was frustrated with the medical provider she disclosed suicidal ideation. She was assessed by crisis and transferring to this facility for psychiatric stabilization. On intake. The patient adamantly denies suicidal ideation she stated that she verbalized suicidality in the context of frustration due to her medical problems and psychosocial stressors. She agreed to continue treatment and she was on agreement of medical treatment. She was assessed by the occupational therapist and physical therapy and we all agreed that she continue level of Care for subacute rehab. The patient was in agreement with the treatment. We applied to several facilities and finally she was accepted into subacute rehab. The patient is able to contract for safety she is willing to continue for treatment and she is future oriented. She adamantly denies suicidal ideation and there no medical problems or psychiatric problems the precludes her to continue treatment in a subacute rehab. She will need at least 30 days a subacute rehab. She also had treatment with vancomycin the we continue for 6 weeks due to osteomyelitis. The patient finish the treatment and the central line was removed. Time spent discussing smoking cessation with patient: 3 to 10 minutes Status at Discharge Cognitive/behavioral status at discharge: At baseline Functional status at discharge: wheelchair bound Overall status at discharge: patient is back to baseline Time Spent with Patient Time attestation: Total time managing care of this patient today __30__ minutes. Time spent: Less than 30 minutes Discharge Plan Discharge Anticipated Discharge Date/Time: 05/12/24 16:00 Patient Disposition: Xfer Inpatient Rehab Fac Discharge Diagnosis: Borderline personality disorder Ankle fracture Referrals: [facility] [Other] - 05/12/24 4:00 pm (Transfer to SNF for short term rehab. Follow up with orthopedic provider Dr Paulino at [facility] in 2 weeks for cast removal. (See appointment for Dr Paulino's office on discharge plan). Ashley should have appointment made following rehab with her outpatient p sychiatrist Juan David Beaulieu at [facility]. Ashley should have PCP appointment follow up made following rehab with Dr Erik Kim at [facility] - [facility], [address], [place] [id number] ) Santiago Paulino MD [Physician] - 05/27/24 10:30 am (Your next follow up appointment with Dr Paulino is scheduled for 05/27/24 at 10:30am. This appointment will to be follow up for cast xrays and cast removal. ) Discharge Medications: New acetaminophen 325 mg Tablet 650 mg PO Q6H PRN (Reason: Headache/Pain Mild Scale (1-3)) 30 Days Qty: 30 0RF trazodone 50 mg Tablet 50 mg PO BEDTIME MRX1 PRN (Reason: Insomnia) 30 Days Qty: 60 0RF tramadol 50 mg Tablet 100 mg PO Q6H PRN (Reason: moderate to severe pain) 30 Days Qty: 60 0RF duloxetine 60 mg Capsule,Delayed Release(Dr/Ec) 60 mg PO BID 30 Days Qty: 60 0RF Continued atorvastatin 40 mg tablet 40 mg PO DAILY 30 Days Qty: 30 0RF lamotrigine 150 mg tablet 300 mg PO BEDTIME 30 Days Qty: 60 0RF metformin 500 mg tablet 500 mg PO BID 30 Days Qty: 60 0RF acetaminophen 325 mg Tablet 650 mg PO Q6H PRN (Reason: Pain, Mild (Pain Scale 1-3)) Qty: 30 0RF cyanocobalamin (vitamin B-12) 1,000 mcg Tablet 1,000 mcg PO DAILY 30 Days Qty: 30 0RF amlodipine 5 mg Tablet 5 mg PO DAILY 30 Days Qty: 30 0RF Protocol: Hold for SBP< HOLD for SBP < : 90 omeprazole 40 mg capsule,delayed release(DR/EC) 40 mg PO DAILY 30 Days Qty: 30 0RF ascorbic acid (vitamin C) 500 mg Tablet 500 mg PO DAILY 30 Days Qty: 30 0RF losartan 25 mg Tablet 25 mg PO DAILY 30 Days Qty: 30 0RF Protocol: Hold for SBP< HOLD for SBP < : 90 metoprolol tartrate 50 mg Tablet 50 mg PO BID 30 Days Qty: 60 0RF Protocol: Hold for SBP/HR < HOLD for SBP < : 90 HOLD for HR < : 60 docusate sodium 100 mg Capsule 200 mg PO DAILY 30 Days Qty: 60 0RF gabapentin 300 mg capsule 600 mg PO BEDTIME 30 Days Qty: 60 0RF gabapentin 300 mg capsule 300 mg PO DAILY 30 Days Qty: 30 0RF nystatin 100,000 unit/gram Powder 1 appl topical TID 30 Days Qty: 5 0RF Protocol: Apply to: Apply to: Abdominal folds and groin cholecalciferol (vitamin D3) 25 mcg (1,000 unit) Tablet 25 mcg PO DAILY 30 Days Qty: 30 0RF Eliquis 5 mg tablet 5 mg PO BID Qty: 60 0RF Discontinued duloxetine 30 mg capsule,delayed release(DR/EC) 30 mg PO DAILY duloxetine 60 mg capsule,delayed release(DR/EC) 60 mg PO DAILY enoxaparin 40 mg/0.4 mL Syringe 40 mg subcut Q24H 42 Days Qty: 16.8 0RF vancomycin in 0.9 % sodium chl 1 gram/250 mL solution 1 g IV Q12H 42 Days Qty: 3000 0RF Discharge Orders: Discharge Order (Routine); Ordered 05/12/24 Ordered By: Praful Abbott Diet: Advance to usual diet Activity on Discharge: As tolerated Stand Alone Forms: Patient Portal Discharge page Print Language: Guinean Activity Restrictions/Additional Instructions: LUNA GREGORY Follow up with Orthopedics in 2 weeks Care Plan Goals: Care plan goals achieved in this admission Health Concerns: Continue treatment with outpatient providers Plan of Treatment: Continue with regular psychiatric providers Assessment: The patient is an elderly female with a past history of borderline personality disorder and depression who was brought into the facility after she disclosed suicidality in the context of frustration due to her medical psychosocial stressors and medical problems. She recently had a fracture on her ankle that required several surgeries. She is willing to continue treatment in a subacute rehab.
--- NOTE | 2024-05-12 16:03 | HO.REMOVAL ---
Removal of PICC/Midline Removal of PICC/Midline: Removal of PICC: 1. Date: 05/12/2024 2. Reason removed: MD order No longer needed 3. Inserted length: 40 cm 4. Removed length: 40 cm 5. A dressing was placed over the site upon removal. No edema or bleeding at the site no bleeding or hematoma noted.
[2024-05-12 20:00] VITALS: BP 123/58; PULSE 89; RESP 18; TEMP 37.1; O2SAT 95
[2024-05-12] MEDS: lamoTRIgine 100 MG TABLET 300 MG PO (20:29)
[2024-05-12] MEDS: Gabapentin 300 MG CAPSULE 600 MG PO (20:29)
[2024-05-12 20:30] VITALS: BP 123/58; PULSE 89
[2024-05-12] MEDS: traZODone HCL 50 MG TABLET PO (20:30)
[2024-05-12] MEDS: traMADoL HCL 50 MG TABLET 100 MG PO (20:32)
[2024-05-12 23:35] VITALS: PULSE 80; RESP 18; O2SAT 94
[2024-05-13] MEDS: Omeprazole 40 MG CAPSULE.DR PO (06:38)
[2024-05-13 07:00] VITALS: BMI 39.3
[2024-05-13 08:00] VITALS: BP 110/67; PULSE 88; RESP 17; TEMP 36.3; O2SAT 95
[2024-05-13] MEDS: Gabapentin 300 MG CAPSULE PO (09:05)
[2024-05-13] MEDS: Apixaban 5 MG TABLET PO ×2 (09:05→20:28)
[2024-05-13] MEDS: DULoxetine HCl 60 MG CAPSULE.DR PO ×2 (09:05→20:28)
[2024-05-13] MEDS: Cholecalciferol (Vitamin D3) 25 MCG TABLET PO (09:05)
[2024-05-13] MEDS: Atorvastatin Calcium 40 MG TABLET PO (09:05)
[2024-05-13] MEDS: Cyanocobalamin (Vitamin B-12) 1,000 MCG TABLET 1000 MCG PO (09:05)
[2024-05-13] MEDS: Ascorbic Acid 500 MG TABLET PO (09:05)
[2024-05-13] MEDS: Metoprolol Tartrate 50 MG TABLET PO ×2 (09:05→20:25)
[2024-05-13] MEDS: metFORMIN HCl 500 MG TABLET PO ×2 (09:05→20:27)
[2024-05-13] MEDS: Losartan Potassium 25 MG TABLET PO (09:06)
[2024-05-13] MEDS: amLODIPine Besylate 5 MG TABLET PO (09:06)
[2024-05-13] MEDS: Nystatin Powder 15 GM BOTTLE 1 APPL TOPICAL (09:21)
--- NOTE | 2024-05-13 11:38 | P.PNPSI_ITS ---
Subjective Subjective Date of Service: 05/13/24 Reason For Visit: Depression Interim History: The nursing staff reported the patient had been fully compliant with treatment cooperative and pleasant. no irritability. Pic line removedn The patient has finished more than 60 days of vancomycin IV for osteomyelitis, at this point she has already finished her treatment and she will not require more IV antibiotics at this point. She is irritable when approached. denies pain. Review of Systems Review of Systems Constitutional : No Fever, No Chills ENT/Mouth : No Ear Pain, No Nasal Congestion, No sore throat Eyes: No Eye Pain, No Swelling, No Redness Cardiovascular : No Chest Pain, No SOB Respiratory : No Cough, No Sputum, No Dyspnea Gastrointestinal : No Nausea, No Vomiting, No Diarrhea, No Hematochezia, No Melena Genitourinary : No Dysuria, No Urinary Frequency, No Hematuria Musculoskeletal : pos Myalgias Skin : No Skin Lesions, No rash Neuro : No Weakness, No Numbness, No Paresthesias, No Dizziness, No Headache Psych : positive Anxiety, positive Depression, no SI/HI Heme/Lymph: No Lymphadenopathy Endocrine : No Polyuria, No Polydipsia All other systems reviewed and are negative Yes all other systems are reviewed and are negative Constitutional: Reports as per HPI Eyes: Reports as per HPI Reports system reviewed and no additional complaints, except as documented Cardiovascular: Reports as per HPI Respiratory: Reports as per HPI Gastrointestinal: Reports as per HPI Musculoskeletal: Reports back pain, Reports myalgias and Reports arthralgias Skin/Breast: Reports as per HPI Reports system reviewed and no additional complaints, except as documented Psychiatric: Reports no additional psychiatric complaints Endocrine: Reports no additional endocrine complaints Hematologic/Lymphatic: Reports no additional hematologic/lymphatic complaints Allergic/Immunologic: Reports no additional allergic/immunologic complaints Mental Status Exam Mental Status Exam Patient Appearance: Appropriate Patient Orientation: Person and Situation Level of Consciousness: Awake and Appropriate Patient Behavior: Appropriate and Cooperative Mood Description: Calm Affect Description: Constricted Patient Cognition Impaired: Yes Ability to Follow Directions: Good Speech Pattern: Clear Hallucinations: None Thought Process: Intact Judgement: Fair Diagnostics Vital Signs (24Hr): Vital Signs - 24 hr 05/12/24 20:00 05/12/24 20:30 05/12/24 23:35 Temperature 98.7 F Pulse Rate 89 89 Respiratory Rate 18 18 Blood Pressure 123/58 L 123/58 L Pulse Oximetry 95 Oxygen Delivery Method Room Air 05/13/24 08:00 Temperature 97.4 F Pulse Rate 88 Respiratory Rate 17 Blood Pressure 110/67 Pulse Oximetry 95 Oxygen Delivery Method Room Air BMI result Body Mass Index 38.4 Labs 04/17/24 03:55 05/10/24 08:02 Imaging Radiology Impressions: ITS Impressions Ankle X-Ray 04/27/24 16:38 IMPRESSION: Trimalleolar ankle fracture redemonstrated with evidence of some fracture healing of the distal fibula with minimal, if any, healing of the tibia fracture. On the lateral projection, the alignment appears unchanged compared with the intraoperative images and improved compared with the preoperative images. Persistent, albeit decreased, lateral subluxation of the talus with respect to the tibia on the frontal projection allowing for slight differences in projection. Medications Medications Current Medications Acetaminophen (Acetaminophen 325 Mg Tablet) 650 mg PO Q6H PRN PRN Reason: Headache/Pain Mild Scale (1-3) Last Admin: 05/11/24 23:33 Dose: 650 mg Al Hydroxide/Mg Hydroxide (Magnesium Hydrox/Alum Hydrox 30 Ml Oral.Susp) 30 ml PO Q6H PRN PRN Reason: Heartburn/Nausea Amlodipine Besylate (Amlodipine Besylate 5 Mg Tablet) 5 mg PO DAILY [facility]; Protocol Last Admin: 05/13/24 09:06 Dose: 5 mg Apixaban (Apixaban 5 Mg Tablet) 5 mg PO BID [facility] Last Admin: 05/13/24 09:05 Dose: 5 mg Ascorbic Acid (Ascorbic Acid 500 Mg Tablet) 500 mg PO DAILY [facility] Last Admin: 05/13/24 09:05 Dose: 500 mg Atorvastatin Calcium (Atorvastatin Calcium 40 Mg Tablet) 40 mg PO DAILY [facility] Last Admin: 05/13/24 09:05 Dose: 40 mg Benzocaine (Throat Lozenge, Medicated Lozenge) 1 lozenge MUCOUS MEM Q2H PRN PRN Reason: Sore Throat Cyanocobalamin (Cyanocobalamin (Vitamin B-12) 1,000 Mcg Tablet) 1,000 mcg PO DAILY [facility] Last Admin: 05/13/24 09:05 Dose: 1,000 mcg Docusate Sodium (Docusate Sodium 100 Mg Capsule) 200 mg PO DAILY [facility] Last Admin: 05/13/24 09:10 Dose: Not Given Duloxetine HCl (Duloxetine Hcl 60 Mg Capsule.Dr) 60 mg PO BID [facility] Last Admin: 05/13/24 09:05 Dose: 60 mg Gabapentin (Gabapentin 300 Mg Capsule) 600 mg PO BEDTIME [facility] Last Admin: 05/12/24 20:29 Dose: 600 mg Gabapentin (Gabapentin 300 Mg Capsule) 300 mg PO DAILY [facility] Last Admin: 05/13/24 09:05 Dose: 300 mg Hydroxyzine HCl (Hydroxyzine Hcl 25 Mg Tablet) 25 mg PO Q6H PRN PRN Reason: Anxiety Last Admin: 05/11/24 23:33 Dose: 25 mg Lamotrigine (Lamotrigine 100 Mg Tablet) 300 mg PO BEDTIME [facility] Last Admin: 05/12/24 20:29 Dose: 300 mg Losartan Potassium (Losartan Potassium 25 Mg Tablet) 25 mg PO DAILY [facility]; Protocol Last Admin: 05/13/24 09:06 Dose: 25 mg Magnesium Hydroxide (Milk Of Magnesia 30 Ml Oral.Susp) 30 ml PO DAILY PRN PRN Reason: Constipation Metformin HCl (Metformin Hcl 500 Mg Tablet) 500 mg PO BID [facility] Last Admin: 05/13/24 09:05 Dose: 500 mg Metoprolol Tartrate (Metoprolol Tartrate 50 Mg Tablet) 50 mg PO BID [facility]; Protocol Last Admin: 05/13/24 09:05 Dose: 50 mg Nystatin (Nystatin Powder 15 Gm Bottle) 1 appl TOPICAL TID [facility]; Protocol Last Admin: 05/13/24 09:21 Dose: 1 appl Omeprazole (Omeprazole 40 Mg Capsule.Dr) 40 mg PO DAILY@0630 [facility] Last Admin: 05/13/24 06:38 Dose: 40 mg Tramadol HCl (Tramadol Hcl 50 Mg Tablet) 100 mg PO Q6H PRN PRN Reason: moderate to severe pain Last Admin: 05/12/24 20:32 Dose: 100 mg Trazodone HCl (Trazodone Hcl 50 Mg Tablet) 50 mg PO BEDTIME MRX1 PRN PRN Reason: Insomnia Last Admin: 05/12/24 20:30 Dose: 50 mg Vitamin D (Cholecalciferol (Vitamin D3) 25 Mcg Tablet) 25 mcg PO DAILY [facility] Last Admin: 05/13/24 09:05 Dose: 25 mcg Allergies Allergies Allergy/AdvReac Type Severity Reaction Status Date / Time mirabegron [From Myrbetriq] Allergy Hallucinati Verified 04/17/24 02:13 ons Assessment & Plan Assessment & Plan (1) Trimalleolar fracture of right ankle: Qualifiers: Encounter type: subsequent encounter Fracture healing: with nonunion F racture type: closed Qualified Code(s): S82.851K - Displaced trimalleolar fracture of right lower leg, subsequent encounter for closed fracture with nonunion Status: Acute Code(s): S82.851A - Displaced trimalleolar fracture of right lower leg, initial encounter for closed fracture Assessment and Plan: New short leg cast applied today Remain NWB RLE F/u in orthopedic office in 2 weeks for cast off with xrays --> likely transfer to boot Plan The patient is a 73-year-old female, , with a past history of borderline personality disorder, major depressive disorder and a recent fracture of her ankle that required surgery by orthopedic service who was brought into the facility since she disclosed suicidal thoughts. The patient, whenever she is frustrated disclosed suicidal thoughts but she has never hurt herself seriously in the last 40 years. She was transferring to this facility for psychiatric treatment but so far, the patient had been stable waiting for placement. Plan 1. Continue with medical treatment. 2. The patient has already finished her vancomycin IV for 60 days. We are going to discontinue the central line. 3. Transferred to subacute rehab. 05/13 pic line discontinued; order for flush line d/c continue tx plan Patient educated on: medication risk/benefits and therapeutic strategies Informed Consent: further education needed Reason for continued inpatient stay Substantial Risk for: inability to function Time Spent With Patient Time: Total time managing care of this patient today ____ minutes.
[2024-05-13 20:00] VITALS: BP 116/68; PULSE 82; RESP 16; TEMP 36.2; O2SAT 97
[2024-05-13 20:25] VITALS: BP 115/68; PULSE 82
[2024-05-13] MEDS: Acetaminophen 325 MG TABLET 650 MG PO (20:26)
[2024-05-13] MEDS: lamoTRIgine 100 MG TABLET 300 MG PO (20:28)
[2024-05-13] MEDS: traMADoL HCL 50 MG TABLET 100 MG PO (20:29)
[2024-05-13] MEDS: traZODone HCL 50 MG TABLET PO (20:30)
[2024-05-13] MEDS: Gabapentin 300 MG CAPSULE 600 MG PO (20:30)
[2024-05-13 23:30] VITALS: PULSE 84; RESP 18; O2SAT 94
--- NOTE | 2024-05-14 04:55 | PC.NURSE ---
0100- pt was placed on nocturnal cpap at 2300. she has since decided to remove face mask and wishes cpap to be terminated for the night. 1 to 1 pt equipment observer dismissed. cpap apparatus placed in med room. resp effort is regular unlabored.
[2024-05-14] MEDS: Omeprazole 40 MG CAPSULE.DR PO (06:19)
[2024-05-14 08:55] VITALS: BP 130/77; PULSE 87; RESP 15; TEMP 36.8; O2SAT 94
[2024-05-14] MEDS: Atorvastatin Calcium 40 MG TABLET PO (08:57)
[2024-05-14] MEDS: Losartan Potassium 25 MG TABLET PO (08:57)
[2024-05-14] MEDS: metFORMIN HCl 500 MG TABLET PO ×2 (08:57→20:45)
[2024-05-14] MEDS: Ascorbic Acid 500 MG TABLET PO (08:57)
[2024-05-14] MEDS: Cyanocobalamin (Vitamin B-12) 1,000 MCG TABLET 1000 MCG PO (08:57)
[2024-05-14] MEDS: DULoxetine HCl 60 MG CAPSULE.DR PO ×2 (08:57→20:45)
[2024-05-14] MEDS: Apixaban 5 MG TABLET PO ×2 (08:57→20:45)
[2024-05-14] MEDS: traMADoL HCL 50 MG TABLET 100 MG PO ×2 (08:58→20:46)
[2024-05-14] MEDS: Metoprolol Tartrate 50 MG TABLET PO ×2 (08:58→20:49)
[2024-05-14] MEDS: amLODIPine Besylate 5 MG TABLET PO (08:58)
[2024-05-14] MEDS: Gabapentin 300 MG CAPSULE PO (08:58)
[2024-05-14] MEDS: Cholecalciferol (Vitamin D3) 25 MCG TABLET PO (08:58)
--- NOTE | 2024-05-14 09:54 | P.PNPSI_ITS ---
Subjective Subjective Date of Service: 05/14/24 Reason For Visit: Depression Subjective Notes: Conditional Voluntary Interim History: Pt slept through the night. No behavioral concerns. VS stable. Pt reports she is doing well, she is awaiting meeting to complete PASSR to be able to transfer to SNF. She denies SI/HI. No overt psychosis or delusions. Pt visible and social with select peers. Review of Systems Review of Systems Constitutional : No Fever, No Chills ENT/Mouth : No Ear Pain, No Nasal Congestion, No sore throat Eyes: No Eye Pain, No Swelling, No Redness Cardiovascular : No Chest Pain, No SOB Respiratory : No Cough, No Sputum, No Dyspnea Gastrointestinal : No Nausea, No Vomiting, No Diarrhea, No Hematochezia, No Melena Genitourinary : No Dysuria, No Urinary Frequency, No Hematuria Musculoskeletal : pos Myalgias Skin : No Skin Lesions, No rash Neuro : No Weakness, No Numbness, No Paresthesias, No Dizziness, No Headache Psych : positive Anxiety, positive Depression, no SI/HI Heme/Lymph: No Lymphadenopathy Endocrine : No Polyuria, No Polydipsia All other systems reviewed and are negative Yes all other systems are reviewed and are negative Constitutional: Reports as per HPI Eyes: Reports as per HPI Reports system reviewed and no additional complaints, except as documented Cardiovascular: Reports as per HPI Respiratory: Reports as per HPI Gastrointestinal: Reports as per HPI Musculoskeletal: Reports back pain, Reports myalgias and Reports arthralgias Skin/Breast: Reports as per HPI Reports system reviewed and no additional complaints, except as documented Psychiatric: Reports no additional psychiatric complaints Endocrine: Reports no additional endocrine complaints Hematologic/Lymphatic: Reports no additional hematologic/lymphatic complaints Allergic/Immunologic: Reports no additional allergic/immunologic complaints Mental Status Exam Mental Status Exam Patient Appearance: Appropriate Patient Orientation: Person and Situation Level of Consciousness: Awake and Appropriate Patient Behavior: Appropriate and Cooperative Behavior Comments: found to be demanding by staff , I can be ok , or irritable based on how her needs feel met Mood Description: Calm Affect Description: Constricted Patient Cognition Impaired: Yes Ability to Follow Directions: Good Speech Pattern: Clear Diagnostics Vital Signs (24Hr): Vital Signs - 24 hr 05/13/24 20:00 05/13/24 20:25 05/13/24 23:30 Temperature 97.1 F Pulse Rate 82 82 Respiratory Rate 16 18 Blood Pressure 116/68 115/68 Pulse Oximetry 97 Oxygen Delivery Method Room Air 05/14/24 08:55 Temperature 98.2 F Pulse Rate 87 Respiratory Rate 15 Blood Pressure 130/77 Pulse Oximetry 94 Oxygen Delivery Method Room Air BMI result Body Mass Index 39.3 Labs 04/17/24 03:55 05/10/24 08:02 Imaging Radiology Impressions: ITS Impressions Ankle X-Ray 04/27/24 16:38 IMPRESSION: Trimalleolar ankle fracture redemonstrated with evidence of some fracture healing of the distal fibula with minimal, if any, healing of the tibia fracture. On the lateral projection, the alignment appears unchanged compared with the intraoperative images and improved compared with the preoperative images. Persistent, albeit decreased, lateral subluxation of the talus with respect to the tibia on the frontal projection allowing for slight differences in projection. Medications Medications Current Medications Acetaminophen (Acetaminophen 325 Mg Tablet) 650 mg PO Q6H PRN PRN Reason: Headache/Pain Mild Scale (1-3) Last Admin: 05/13/24 20:26 Dose: 650 mg Al Hydroxide/Mg Hydroxide (Magnesium Hydrox/Alum Hydrox 30 Ml Oral.Susp) 30 ml PO Q6H PRN PRN Reason: Heartburn/Nausea Amlodipine Besylate (Amlodipine Besylate 5 Mg Tablet) 5 mg PO DAILY [facility]; Protocol Last Admin: 05/14/24 08:58 Dose: 5 mg Apixaban (Apixaban 5 Mg Tablet) 5 mg PO BID [facility] Last Admin: 05/14/24 08:57 Dose: 5 mg Ascorbic Acid (Ascorbic Acid 500 Mg Tablet) 500 mg PO DAILY [facility] Last Admin: 05/14/24 08:57 Dose: 500 mg Atorvastatin Calcium (Atorvastatin Calcium 40 Mg Tablet) 40 mg PO DAILY [facility] Last Admin: 05/14/24 08:57 Dose: 40 mg Benzocaine (Throat Lozenge, Medicated Lozenge) 1 lozenge MUCOUS MEM Q2H PRN PRN Reason: Sore Throat Cyanocobalamin (Cyanocobalamin (Vitamin B-12) 1,000 Mcg Tablet) 1,000 mcg PO DAILY [facility] Last Admin: 05/14/24 08:57 Dose: 1,000 mcg Docusate Sodium (Docusate Sodium 100 Mg Capsule) 200 mg PO DAILY [facility] Last Admin: 05/14/24 09:01 Dose: Not Given Duloxetine HCl (Duloxetine Hcl 60 Mg Capsule.Dr) 60 mg PO BID [facility] Last Admin: 05/14/24 08:57 Dose: 60 mg Gabapentin (Gabapentin 300 Mg Capsule) 600 mg PO BEDTIME [facility] Last Admin: 05/13/24 20:30 Dose: 600 mg Gabapentin (Gabapentin 300 Mg Capsule) 300 mg PO DAILY [facility] Last Admin: 05/14/24 08:58 Dose: 300 mg Hydroxyzine HCl (Hydroxyzine Hcl 25 Mg Tablet) 25 mg PO Q6H PRN PRN Reason: Anxiety Last Admin: 05/11/24 23:33 Dose: 25 mg Lamotrigine (Lamotrigine 100 Mg Tablet) 300 mg PO BEDTIME [facility] Last Admin: 05/13/24 20:28 Dose: 300 mg Losartan Potassium (Losartan Potassium 25 Mg Tablet) 25 mg PO DAILY [facility]; Protocol Last Admin: 05/14/24 08:57 Dose: 25 mg Magnesium Hydroxide (Milk Of Magnesia 30 Ml Oral.Susp) 30 ml PO DAILY PRN PRN Reason: Constipation Metformin HCl (Metformin Hcl 500 Mg Tablet) 500 mg PO BID [facility] Last Admin: 05/14/24 08:57 Dose: 500 mg Metoprolol Tartrate (Metoprolol Tartrate 50 Mg Tablet) 50 mg PO BID [facility]; Protocol Last Admin: 05/14/24 08:58 Dose: 50 mg Nystatin (Nystatin Powder 15 Gm Bottle) 1 appl TOPICAL TID [facility]; Protocol Last Admin: 05/13/24 21:00 Dose: Not Given Omeprazole (Omeprazole 40 Mg Capsule.) 40 mg PO DAILY@0630 [facility] Last Admin: 05/14/24 06:19 Dose: 40 mg Tramadol HCl (Tramadol Hcl 50 Mg Tablet) 100 mg PO Q6H PRN PRN Reason: moderate to severe pain Last Admin: 05/14/24 08:58 Dose: 100 mg Trazodone HCl (Trazodone Hcl 50 Mg Tablet) 50 mg PO BEDTIME MRX1 PRN PRN Reason: Insomnia Last Admin: 05/13/24 20:30 Dose: 50 mg Vitamin D (Cholecalciferol (Vitamin D3) 25 Mcg Tablet) 25 mcg PO DAILY [facility] Last Admin: 05/14/24 08:58 Dose: 25 mcg Allergies Allergies Allergy/AdvReac Type Severity Reaction Status Date / Time mirabegron [From Myrbetriq] Allergy Hallucinati Verified 04/17/24 02:13 ons Assessment & Plan Assessment & Plan (1) MDD (major depressive disorder), recurrent episode, moderate: Status: Acute Code(s): F33.1 - Major depressive disorder, recurrent, moderate Plan The patient is a 73-year-old female, , with a past history of borderline personality disorder, major depressive disorder and a recent fracture of her ankle that required surgery by orthopedic service who was brought into the facility since she disclosed suicidal thoughts. The patient, whenever she is frustrated disclosed suicidal thoughts but she has never hurt herself seriously in the last 40 years. She was transferring to this facility for psychiatric treatment but so far, the patient had been stable waiting for placement. Plan 1. Continue with medical treatment. 2. The patient has already finished her vancomycin IV for 60 days. We are going to discontinue the central line. 3. Transferred to subacute rehab. 05/13 pic line discontinued; order for flush line d/c continue tx plan 05/14 continue tx. Reason for continued inpatient stay Substantial Risk for: inability to function Time Spent With Patient Time: Total time managing care of this patient today ____ minutes.
[2024-05-14] MEDS: Nystatin Powder 15 GM BOTTLE 1 APPL TOPICAL (10:28)
[2024-05-14 20:00] VITALS: BP 122/59; PULSE 76; RESP 16; TEMP 36.3; O2SAT 98
[2024-05-14] MEDS: lamoTRIgine 100 MG TABLET 300 MG PO (20:44)
[2024-05-14] MEDS: Gabapentin 300 MG CAPSULE 600 MG PO (20:46)
[2024-05-14] MEDS: traZODone HCL 50 MG TABLET PO (20:46)
[2024-05-14] MEDS: Acetaminophen 325 MG TABLET 650 MG PO (20:47)
[2024-05-14 20:49] VITALS: BP 125/64; PULSE 81
[2024-05-15] MEDS: Omeprazole 40 MG CAPSULE.DR PO (06:04)
[2024-05-15 07:59] VITALS: BP 158/89; PULSE 83; RESP 18; TEMP 36.6; O2SAT 96
[2024-05-15] MEDS: amLODIPine Besylate 5 MG TABLET PO (08:22)
[2024-05-15] MEDS: Gabapentin 300 MG CAPSULE PO (08:22)
[2024-05-15] MEDS: Ascorbic Acid 500 MG TABLET PO (08:22)
[2024-05-15] MEDS: Losartan Potassium 25 MG TABLET PO (08:22)
[2024-05-15] MEDS: Cholecalciferol (Vitamin D3) 25 MCG TABLET PO (08:22)
[2024-05-15] MEDS: Atorvastatin Calcium 40 MG TABLET PO (08:22)
[2024-05-15] MEDS: Cyanocobalamin (Vitamin B-12) 1,000 MCG TABLET 1000 MCG PO (08:22)
[2024-05-15] MEDS: Metoprolol Tartrate 50 MG TABLET PO ×2 (08:22→20:25)
[2024-05-15] MEDS: Apixaban 5 MG TABLET PO ×2 (08:23→20:28)
[2024-05-15] MEDS: DULoxetine HCl 60 MG CAPSULE.DR PO ×2 (08:23→20:24)
[2024-05-15] MEDS: metFORMIN HCl 500 MG TABLET PO ×2 (08:23→20:29)
--- NOTE | 2024-05-15 10:51 | P.PNPSI_ITS ---
Subjective Subjective Date of Service: 05/15/24 Reason For Visit: Depression Interim History: calm, pleasant, cooperative. awaiting bed at nursing facility. per staff, no issues or complaints. Mental Status Exam Mental Status Exam Patient Appearance: Appropriate Patient Orientation: Person and Situation Level of Consciousness: Awake and Appropriate Patient Behavior: Appropriate and Cooperative Mood Description: Calm Affect Description: Constricted Patient Cognition Impaired: Yes Ability to Follow Directions: Good Speech Pattern: Clear Diagnostics Vital Signs (24Hr): Vital Signs - 24 hr 05/14/24 20:00 05/14/24 20:49 05/15/24 07:59 Temperature 97.4 F 97.9 F Pulse Rate 76 81 83 Respiratory Rate 16 18 Blood Pressure 122/59 L 125/64 158/89 H Pulse Oximetry 98 96 Oxygen Delivery Method Room Air Room Air BMI result Body Mass Index 39.3 Labs 04/17/24 03:55 05/10/24 08:02 Imaging Radiology Impressions: ITS Impressions Ankle X-Ray 04/27/24 16:38 IMPRESSION: Trimalleolar ankle fracture redemonstrated with evidence of some fracture healing of the distal fibula with minimal, if any, healing of the tibia fracture. On the lateral projection, the alignment appears unchanged compared with the intraoperative images and improved compared with the preoperative images. Persistent, albeit decreased, lateral subluxation of the talus with respect to the tibia on the frontal projection allowing for slight differences in projection. Medications Medications Current Medications Acetaminophen (Acetaminophen 325 Mg Tablet) 650 mg PO Q6H PRN PRN Reason: Headache/Pain Mild Scale (1-3) Last Admin: 05/14/24 20:47 Dose: 650 mg Al Hydroxide/Mg Hydroxide (Magnesium Hydrox/Alum Hydrox 30 Ml Oral.Susp) 30 ml PO Q6H PRN PRN Reason: Heartburn/Nausea Amlodipine Besylate (Amlodipine Besylate 5 Mg Tablet) 5 mg PO DAILY [facility]; Protocol Last Admin: 05/15/24 08:22 Dose: 5 mg Apixaban (Apixaban 5 Mg Tablet) 5 mg PO BID [facility] Last Admin: 05/15/24 08:23 Dose: 5 mg Ascorbic Acid (Ascorbic Acid 500 Mg Tablet) 500 mg PO DAILY [facility] Last Admin: 05/15/24 08:22 Dose: 500 mg Atorvastatin Calcium (Atorvastatin Calcium 40 Mg Tablet) 40 mg PO DAILY [facility] Last Admin: 05/15/24 08:22 Dose: 40 mg Benzocaine (Throat Lozenge, Medicated Lozenge) 1 lozenge MUCOUS MEM Q2H PRN PRN Reason: Sore Throat Cyanocobalamin (Cyanocobalamin (Vitamin B-12) 1,000 Mcg Tablet) 1,000 mcg PO DAILY [facility] Last Admin: 05/15/24 08:22 Dose: 1,000 mcg Docusate Sodium (Docusate Sodium 100 Mg Capsule) 200 mg PO DAILY [facility] Last Admin: 05/15/24 08:23 Dose: Not Given Duloxetine HCl (Duloxetine Hcl 60 Mg Capsule.) 60 mg PO BID [facility] Last Admin: 05/15/24 08:23 Dose: 60 mg Gabapentin (Gabapentin 300 Mg Capsule) 600 mg PO BEDTIME [facility] Last Admin: 05/14/24 20:46 Dose: 600 mg Gabapentin (Gabapentin 300 Mg Capsule) 300 mg PO DAILY [facility] Last Admin: 05/15/24 08:22 Dose: 300 mg Hydroxyzine HCl (Hydroxyzine Hcl 25 Mg Tablet) 25 mg PO Q6H PRN PRN Reason: Anxiety Last Admin: 05/11/24 23:33 Dose: 25 mg Lamotrigine (Lamotrigine 100 Mg Tablet) 300 mg PO BEDTIME [facility] Last Admin: 05/14/24 20:44 Dose: 300 mg Losartan Potassium (Losartan Potassium 25 Mg Tablet) 25 mg PO DAILY [facility]; Protocol Last Admin: 05/15/24 08:22 Dose: 25 mg Magnesium Hydroxide (Milk Of Magnesia 30 Ml Oral.Susp) 30 ml PO DAILY PRN PRN Reason: Constipation Metformin HCl (Metformin Hcl 500 Mg Tablet) 500 mg PO BID [facility] Last Admin: 05/15/24 08:23 Dose: 500 mg Metoprolol Tartrate (Metoprolol Tartrate 50 Mg Tablet) 50 mg PO BID [facility]; Protocol Last Admin: 05/15/24 08:22 Dose: 50 mg Nystatin (Nystatin Powder 15 Gm Bottle) 1 appl TOPICAL TID [facility]; Protocol Last Admin: 05/14/24 22:03 Dose: Not Given Omeprazole (Omeprazole 40 Mg Capsule.) 40 mg PO DAILY@0630 [facility] Last Admin: 05/15/24 06:04 Dose: 40 mg Tramadol HCl (Tramadol Hcl 50 Mg Tablet) 100 mg PO Q6H PRN PRN Reason: Pain, Severe (Pain Scale 7-10) Trazodone HCl (Trazodone Hcl 50 Mg Tablet) 50 mg PO BEDTIME MRX1 PRN PRN Reason: Insomnia Last Admin: 05/14/24 20:46 Dose: 50 mg Vitamin D (Cholecalciferol (Vitamin D3) 25 Mcg Tablet) 25 mcg PO DAILY [facility] Last Admin: 05/15/24 08:22 Dose: 25 mcg Allergies Allergies Allergy/AdvReac Type Severity Reaction Status Date / Time mirabegron [From Myrbetriq] Allergy Hallucinati Verified 04/17/24 02:13 ons Assessment & Plan Assessment & Plan (1) MDD (major depressive disorder), recurrent episode, moderate: Status: Acute Code(s): F33.1 - Major depressive disorder, recurrent, moderate Plan The patient is a 73-year-old female, , with a past history of borderline personality disorder, major depressive disorder and a recent fracture of her ankle that required surgery by orthopedic service who was brought into the facility since she disclosed suicidal thoughts. The patient, whenever she is frustrated disclosed suicidal thoughts but she has never hurt herself seriously in the last 40 years. She was transferring to this facility for psychiatric treatment but so far, the patient had been stable waiting for placement. Plan 1. Continue with medical treatment. 2. The patient has already finished her vancomycin IV for 60 days. We are going to discontinue the central line. 3. Transferred to subacute rehab. 05/13 pic line discontinued; order for flush line d/c continue tx plan 05/14 continue tx. 05/15: stable, cooperative. continue current mgmt. Reason for continued inpatient stay Substantial Risk for: rapid decompensation Time Spent With Patient Time: Total time managing care of this patient today ____ minutes.
[2024-05-15] MEDS: Nystatin Powder 15 GM BOTTLE 1 APPL TOPICAL ×2 (11:39→20:31)
[2024-05-15 20:00] VITALS: BP 115/67; PULSE 90; RESP 16; TEMP 36.1; O2SAT 95
[2024-05-15 20:25] VITALS: BP 115/67; PULSE 90
[2024-05-15] MEDS: lamoTRIgine 100 MG TABLET 300 MG PO (20:25)
[2024-05-15] MEDS: hydrOXYzine HCL 25 MG TABLET PO (20:25)
[2024-05-15] MEDS: traMADoL HCL 50 MG TABLET 100 MG PO (20:26)
[2024-05-15] MEDS: Gabapentin 300 MG CAPSULE 600 MG PO (20:27)
[2024-05-15] MEDS: Acetaminophen 325 MG TABLET 650 MG PO (20:28)
[2024-05-16] MEDS: Omeprazole 40 MG CAPSULE.DR PO (06:18)
[2024-05-16 08:00] VITALS: BP 115/56; PULSE 83; RESP 17; TEMP 36.3; O2SAT 96
[2024-05-16] MEDS: Metoprolol Tartrate 50 MG TABLET PO ×2 (08:07→21:15)
[2024-05-16] MEDS: Gabapentin 300 MG CAPSULE PO (08:07)
[2024-05-16] MEDS: amLODIPine Besylate 5 MG TABLET PO (08:07)
[2024-05-16] MEDS: Ascorbic Acid 500 MG TABLET PO (08:08)
[2024-05-16] MEDS: Cyanocobalamin (Vitamin B-12) 1,000 MCG TABLET 1000 MCG PO (08:08)
[2024-05-16] MEDS: DULoxetine HCl 60 MG CAPSULE.DR PO ×2 (08:08→21:15)
[2024-05-16] MEDS: Losartan Potassium 25 MG TABLET PO (08:08)
[2024-05-16] MEDS: metFORMIN HCl 500 MG TABLET PO ×2 (08:08→21:15)
[2024-05-16] MEDS: Apixaban 5 MG TABLET PO ×2 (08:08→21:15)
[2024-05-16] MEDS: Cholecalciferol (Vitamin D3) 25 MCG TABLET PO (08:08)
[2024-05-16] MEDS: Atorvastatin Calcium 40 MG TABLET PO (08:08)
--- NOTE | 2024-05-16 10:50 | HO.PSYCHPN ---
Subjective Subjective Date of Service: 05/16/24 Reason For Visit: Depression Interim History: calm, cooperative, pleasant. asking about when she will be discharged. per staff, refusing colace. no other notable events or behaviors. Mental Status Exam Mental Status Exam Patient Appearance: Appropriate Patient Orientation: Person and Situation Level of Consciousness: Awake and Appropriate Patient Behavior: Appropriate and Cooperative Mood Description: Calm Affect Description: Constricted Patient Cognition Impaired: Yes Ability to Follow Directions: Good Speech Pattern: Clear Diagnostics Vital Signs (24Hr): Vital Signs - 24 hr 05/15/24 20:00 05/15/24 20:25 05/16/24 08:00 Temperature 97 F 97.3 F Pulse Rate 90 90 83 Respiratory Rate 16 17 Blood Pressure 115/67 115/67 115/56 L Pulse Oximetry 95 96 Oxygen Delivery Method Room Air Room Air BMI result Body Mass Index 39.3 Labs 04/17/24 03:55 05/10/24 08:02 Imaging Radiology Impressions: ITS Impressions Ankle X-Ray 04/27/24 16:38 IMPRESSION: Trimalleolar ankle fracture redemonstrated with evidence of some fracture healing of the distal fibula with minimal, if any, healing of the tibia fracture. On the lateral projection, the alignment appears unchanged compared with the intraoperative images and improved compared with the preoperative images. Persistent, albeit decreased, lateral subluxation of the talus with respect to the tibia on the frontal projection allowing for slight differences in projection. Medications Medications Current Medications Acetaminophen (Acetaminophen 325 Mg Tablet) 650 mg PO Q6H PRN PRN Reason: Headache/Pain Mild Scale (1-3) Last Admin: 05/15/24 20:28 Dose: 650 mg Al Hydroxide/Mg Hydroxide (Magnesium Hydrox/Alum Hydrox 30 Ml Oral.Susp) 30 ml PO Q6H PRN PRN Reason: Heartburn/Nausea Amlodipine Besylate (Amlodipine Besylate 5 Mg Tablet) 5 mg PO DAILY [facility]; Protocol Last Admin: 05/16/24 08:07 Dose: 5 mg Apixaban (Apixaban 5 Mg Tablet) 5 mg PO BID [facility] Last Admin: 05/16/24 08:08 Dose: 5 mg Ascorbic Acid (Ascorbic Acid 500 Mg Tablet) 500 mg PO DAILY [facility] Last Admin: 05/16/24 08:08 Dose: 500 mg Atorvastatin Calcium (Atorvastatin Calcium 40 Mg Tablet) 40 mg PO DAILY [facility] Last Admin: 05/16/24 08:08 Dose: 40 mg Benzocaine (Throat Lozenge, Medicated Lozenge) 1 lozenge MUCOUS MEM Q2H PRN PRN Reason: Sore Throat Cyanocobalamin (Cyanocobalamin (Vitamin B-12) 1,000 Mcg Tablet) 1,000 mcg PO DAILY [facility] Last Admin: 05/16/24 08:08 Dose: 1,000 mcg Docusate Sodium (Docusate Sodium 100 Mg Capsule) 200 mg PO DAILY [facility] Last Admin: 05/16/24 08:08 Dose: Not Given Duloxetine HCl (Duloxetine Hcl 60 Mg Capsule.) 60 mg PO BID [facility] Last Admin: 05/16/24 08:08 Dose: 60 mg Gabapentin (Gabapentin 300 Mg Capsule) 600 mg PO BEDTIME [facility] Last Admin: 05/15/24 20:27 Dose: 600 mg Gabapentin (Gabapentin 300 Mg Capsule) 300 mg PO DAILY [facility] Last Admin: 05/16/24 08:07 Dose: 300 mg Hydroxyzine HCl (Hydroxyzine Hcl 25 Mg Tablet) 25 mg PO Q6H PRN PRN Reason: Anxiety Last Admin: 05/15/24 20:25 Dose: 25 mg Lamotrigine (Lamotrigine 100 Mg Tablet) 300 mg PO BEDTIME [facility] Last Admin: 05/15/24 20:25 Dose: 300 mg Losartan Potassium (Losartan Potassium 25 Mg Tablet) 25 mg PO DAILY [facility]; Protocol Last Admin: 05/16/24 08:08 Dose: 25 mg Magnesium Hydroxide (Milk Of Magnesia 30 Ml Oral.Susp) 30 ml PO DAILY PRN PRN Reason: Constipation Metformin HCl (Metformin Hcl 500 Mg Tablet) 500 mg PO BID [facility] Last Admin: 05/16/24 08:08 Dose: 500 mg Metoprolol Tartrate (Metoprolol Tartrate 50 Mg Tablet) 50 mg PO BID [facility]; Protocol Last Admin: 05/16/24 08:07 Dose: 50 mg Nystatin (Nystatin Powder 15 Gm Bottle) 1 appl TOPICAL TID [facility]; Protocol Last Admin: 05/15/24 20:31 Dose: 1 appl Omeprazole (Omeprazole 40 Mg Capsule.) 40 mg PO DAILY@0630 [facility] Last Admin: 05/16/24 06:18 Dose: 40 mg Tramadol HCl (Tramadol Hcl 50 Mg Tablet) 100 mg PO Q6H PRN PRN Reason: Pain, Severe (Pain Scale 7-10) Last Admin: 05/15/24 20:26 Dose: 100 mg Trazodone HCl (Trazodone Hcl 50 Mg Tablet) 50 mg PO BEDTIME MRX1 PRN PRN Reason: Insomnia Last Admin: 05/14/24 20:46 Dose: 50 mg Vitamin D (Cholecalciferol (Vitamin D3) 25 Mcg Tablet) 25 mcg PO DAILY [facility] Last Admin: 05/16/24 08:08 Dose: 25 mcg Allergies Allergies Allergy/AdvReac Type Severity Reaction Status Date / Time mirabegron [From Myrbetriq] Allergy Hallucinati Verified 04/17/24 02:13 ons Assessment & Plan Assessment & Plan (1) MDD (major depressive disorder), recurrent episode, moderate: Status: Acute Code(s): F33.1 - Major depressive disorder, recurrent, moderate Plan The patient is a 73-year-old female, , with a past history of borderline personality disorder, major depressive disorder and a recent fracture of her ankle that required surgery by orthopedic service who was brought into the facility since she disclosed suicidal thoughts. The patient, whenever she is frustrated disclosed suicidal thoughts but she has never hurt herself seriously in the last 40 years. She was transferring to this facility for psychiatric treatment but so far, the patient had been stable waiting for placement. Plan 1. Continue with medical treatment. 2. The patient has already finished her vancomycin IV for 60 days. We are going to discontinue the central line. 3. Transferred to subacute rehab. 05/13 pic line discontinued; order for flush line d/c continue tx plan 05/14 continue tx. 05/15: stable, cooperative. continue current mgmt. 05/16: stable. discharging soon. make colace PRN as pt has been refusing it. Reason for continued inpatient stay Substantial Risk for: inability to function and rapid decompensation Time Spent With Patient Time: Total time managing care of this patient today ____ minutes.
[2024-05-16 20:00] VITALS: BP 118/69; PULSE 80; RESP 16; TEMP 36.2; O2SAT 97
[2024-05-16] MEDS: lamoTRIgine 100 MG TABLET 300 MG PO (21:15)
[2024-05-16] MEDS: Gabapentin 300 MG CAPSULE 600 MG PO (21:15)
[2024-05-16] MEDS: traZODone HCL 50 MG TABLET PO (21:15)
[2024-05-16] MEDS: hydrOXYzine HCL 25 MG TABLET PO (21:15)
[2024-05-16] MEDS: Nystatin Powder 15 GM BOTTLE 1 APPL TOPICAL (21:16)
[2024-05-16] MEDS: traMADoL HCL 50 MG TABLET 100 MG PO (21:39)
[2024-05-16 23:39] VITALS: PULSE 91; RESP 18; O2SAT 94
[2024-05-17] MEDS: Omeprazole 40 MG CAPSULE.DR PO (05:54)
[2024-05-17 08:16] VITALS: BP 129/78; PULSE 93; RESP 18; TEMP 36.4; O2SAT 94
[2024-05-17 08:19] LABS: Creatinine Clr Calc Pharmacy 91.9; Estimated Glomerular Filt Rate > 60
[2024-05-17] MEDS: amLODIPine Besylate 5 MG TABLET PO (08:33)
[2024-05-17] MEDS: DULoxetine HCl 60 MG CAPSULE.DR PO ×2 (08:33→20:47)
[2024-05-17] MEDS: Losartan Potassium 25 MG TABLET PO (08:34)
[2024-05-17] MEDS: Cholecalciferol (Vitamin D3) 25 MCG TABLET PO (08:34)
[2024-05-17] MEDS: Metoprolol Tartrate 50 MG TABLET PO ×2 (08:34→20:47)
[2024-05-17] MEDS: Cyanocobalamin (Vitamin B-12) 1,000 MCG TABLET 1000 MCG PO (08:34)
[2024-05-17] MEDS: metFORMIN HCl 500 MG TABLET PO ×2 (08:34→20:47)
[2024-05-17] MEDS: traMADoL HCL 50 MG TABLET 100 MG PO ×2 (08:34→20:48)
[2024-05-17] MEDS: Gabapentin 300 MG CAPSULE PO (08:34)
[2024-05-17] MEDS: Ascorbic Acid 500 MG TABLET PO (08:34)
[2024-05-17] MEDS: Apixaban 5 MG TABLET PO ×2 (08:34→20:47)
[2024-05-17] MEDS: Atorvastatin Calcium 40 MG TABLET PO (08:34)
[2024-05-17] MEDS: Nystatin Powder 15 GM BOTTLE 1 APPL TOPICAL ×2 (08:35→20:49)
[2024-05-17 13:54] VITALS: BP 129/78; PULSE 93; O2SAT 94
--- NOTE | 2024-05-17 14:52 | P.PNPSI_ITS ---
Subjective Subjective Date of Service: 05/17/24 Reason For Visit: Depression Subjective Notes: Conditional Voluntary Interim History: The nursing staff reported the patient had been compliant with treatment, she slept 7 hours. On interview the patient denies new symptoms probably she will be discharged tomorrow. Mental Status Exam Mental Status Exam Patient Appearance: Appropriate Patient Orientation: Person, Place and Situation Level of Consciousness: Awake and Appropriate Patient Behavior: Guarded and Cooperative Mood Description: Withdrawn Affect Description: Constricted Patient Cognition Impaired: No Ability to Follow Directions: Good Speech Pattern: Clear Hallucinations: None Delusions: Not Present Thought Process: Distracted and Slowed Thinking Thought Content: positive for [place] and positive for Poverty of Content Judgement: Poor Diagnostics Vital Signs (24Hr): Vital Signs - 24 hr 05/16/24 20:00 05/16/24 23:39 05/17/24 08:16 Temperature 97.1 F 97.5 F Pulse Rate 80 93 Respiratory Rate 16 18 18 Blood Pressure 118/69 129/78 Pulse Oximetry 97 94 Oxygen Delivery Method Room Air Room Air 05/17/24 13:54 Temperature Pulse Rate 93 Respiratory Rate Blood Pressure 129/78 Pulse Oximetry 94 Oxygen Delivery Method BMI result Body Mass Index 39.3 Labs 04/17/24 03:55 05/17/24 07:52 Labs: Laboratory Results - last 48 hr 05/17/24 07:52 Creatinine 0.72 Estim Creat Clear Calc 91.9 Estimated GFR > 60 Imaging Radiology Impressions: ITS Impressions Ankle X-Ray 04/27/24 16:38 IMPRESSION: Trimalleolar ankle fracture redemonstrated with evidence of some fracture healing of the distal fibula with minimal, if any, healing of the tibia fracture. On the lateral projection, the alignment appears unchanged compared with the intraoperative images and improved compared with the preoperative images. Persistent, albeit decreased, lateral subluxation of the talus with respect to the tibia on the frontal projection allowing for slight differences in projection. Medications Medications Current Medications Acetaminophen (Acetaminophen 325 Mg Tablet) 650 mg PO Q6H PRN PRN Reason: Headache/Pain Mild Scale (1-3) Last Admin: 05/15/24 20:28 Dose: 650 mg Al Hydroxide/Mg Hydroxide (Magnesium Hydrox/Alum Hydrox 30 Ml Oral.Susp) 30 ml PO Q6H PRN PRN Reason: Heartburn/Nausea Amlodipine Besylate (Amlodipine Besylate 5 Mg Tablet) 5 mg PO DAILY [facility]; Protocol Last Admin: 05/17/24 08:33 Dose: 5 mg Apixaban (Apixaban 5 Mg Tablet) 5 mg PO BID [facility] Last Admin: 05/17/24 08:34 Dose: 5 mg Ascorbic Acid (Ascorbic Acid 500 Mg Tablet) 500 mg PO DAILY [facility] Last Admin: 05/17/24 08:34 Dose: 500 mg Atorvastatin Calcium (Atorvastatin Calcium 40 Mg Tablet) 40 mg PO DAILY [facility] Last Admin: 05/17/24 08:34 Dose: 40 mg Benzocaine (Throat Lozenge, Medicated Lozenge) 1 lozenge MUCOUS MEM Q2H PRN PRN Reason: Sore Throat Cyanocobalamin (Cyanocobalamin (Vitamin B-12) 1,000 Mcg Tablet) 1,000 mcg PO DAILY [facility] Last Admin: 05/17/24 08:34 Dose: 1,000 mcg Docusate Sodium (Docusate Sodium 100 Mg Capsule) 200 mg PO DAILY PRN PRN Reason: constipation Duloxetine HCl (Duloxetine Hcl 60 Mg Capsule.Dr) 60 mg PO BID [facility] Last Admin: 05/17/24 08:33 Dose: 60 mg Gabapentin (Gabapentin 300 Mg Capsule) 600 mg PO BEDTIME [facility] Last Admin: 05/16/24 21:15 Dose: 600 mg Gabapentin (Gabapentin 300 Mg Capsule) 300 mg PO DAILY [facility] Last Admin: 05/17/24 08:34 Dose: 300 mg Hydroxyzine HCl (Hydroxyzine Hcl 25 Mg Tablet) 25 mg PO Q6H PRN PRN Reason: Anxiety Last Admin: 05/16/24 21:15 Dose: 25 mg Lamotrigine (Lamotrigine 100 Mg Tablet) 300 mg PO BEDTIME [facility] Last Admin: 05/16/24 21:15 Dose: 300 mg Losartan Potassium (Losartan Potassium 25 Mg Tablet) 25 mg PO DAILY [facility]; Protocol Last Admin: 05/17/24 08:34 Dose: 25 mg Magnesium Hydroxide (Milk Of Magnesia 30 Ml Oral.Susp) 30 ml PO DAILY PRN PRN Reason: Constipation Metformin HCl (Metformin Hcl 500 Mg Tablet) 500 mg PO BID [facility] Last Admin: 05/17/24 08:34 Dose: 500 mg Metoprolol Tartrate (Metoprolol Tartrate 50 Mg Tablet) 50 mg PO BID [facility]; Protocol Last Admin: 05/17/24 08:34 Dose: 50 mg Nystatin (Nystatin Powder 15 Gm Bottle) 1 appl TOPICAL TID [facility]; Protocol Last Admin: 05/17/24 14:44 Dose: Not Given Omeprazole (Omeprazole 40 Mg Capsule.) 40 mg PO DAILY@0630 [facility] Last Admin: 05/17/24 05:54 Dose: 40 mg Tramadol HCl (Tramadol Hcl 50 Mg Tablet) 100 mg PO Q6H PRN PRN Reason: Pain, Severe (Pain Scale 7-10) Last Admin: 05/17/24 08:34 Dose: 100 mg Trazodone HCl (Trazodone Hcl 50 Mg Tablet) 50 mg PO BEDTIME MRX1 PRN PRN Reason: Insomnia Last Admin: 05/16/24 21:15 Dose: 50 mg Vitamin D (Cholecalciferol (Vitamin D3) 25 Mcg Tablet) 25 mcg PO DAILY [facility] Last Admin: 05/17/24 08:34 Dose: 25 mcg Allergies Allergies Allergy/AdvReac Type Severity Reaction Status Date / Time mirabegron [From Myrbetriq] Allergy Hallucinati Verified 04/17/24 02:13 ons Assessment & Plan Assessment & Plan (1) MDD (major depressive disorder), recurrent episode, moderate: Status: Acute Code(s): F33.1 - Major depressive disorder, recurrent, moderate Plan The patient is a 73-year-old female, , with a past history of borderline personality disorder, major depressive disorder and a recent fracture of her ankle that required surgery by orthopedic service who was brought into the facility since she disclosed suicidal thoughts. The patient, whenever she is frustrated disclosed suicidal thoughts but she has never hurt herself seriously in the last 40 years. She was transferring to this facility for psychiatric treatment but so far, the patient had been stable waiting for placement. Plan 1. Continue with medical treatment. 2. The patient has already finished her vancomycin IV for 60 days. We are going to discontinue the central line. 3. Transferred to subacute rehab. 4. Paperwork already done waiting for placement Reason for continued inpatient stay Substantial Risk for: inability to function, rapid decompensation and med/psych decompensation Time Spent With Patient Time: Total time managing care of this patient today __20__ minutes.
[2024-05-17 20:00] VITALS: BP 122/60; PULSE 86; RESP 16; TEMP 36.6; O2SAT 96
[2024-05-17 20:47] VITALS: BP 122/60; PULSE 80
[2024-05-17] MEDS: Gabapentin 300 MG CAPSULE 600 MG PO (20:47)
[2024-05-17] MEDS: traZODone HCL 50 MG TABLET PO (20:47)
[2024-05-17] MEDS: lamoTRIgine 100 MG TABLET 300 MG PO (20:47)
[2024-05-17] MEDS: Acetaminophen 325 MG TABLET 650 MG PO (20:48)
[2024-05-18 00:04] VITALS: RESP 16
[2024-05-18] MEDS: Omeprazole 40 MG CAPSULE.DR PO (05:43)
[2024-05-18 08:05] VITALS: BP 132/72; PULSE 92; RESP 18; TEMP 36.9; O2SAT 95
[2024-05-18] MEDS: Ascorbic Acid 500 MG TABLET PO (08:34)
[2024-05-18] MEDS: metFORMIN HCl 500 MG TABLET PO ×2 (08:34→20:44)
[2024-05-18] MEDS: Losartan Potassium 25 MG TABLET PO (08:34)
[2024-05-18] MEDS: Atorvastatin Calcium 40 MG TABLET PO (08:34)
[2024-05-18] MEDS: Apixaban 5 MG TABLET PO ×2 (08:34→20:44)
[2024-05-18] MEDS: Cyanocobalamin (Vitamin B-12) 1,000 MCG TABLET 1000 MCG PO (08:34)
[2024-05-18] MEDS: Metoprolol Tartrate 50 MG TABLET PO ×2 (08:34→20:44)
[2024-05-18] MEDS: amLODIPine Besylate 5 MG TABLET PO (08:35)
[2024-05-18] MEDS: DULoxetine HCl 60 MG CAPSULE.DR PO ×2 (08:35→20:44)
[2024-05-18] MEDS: Gabapentin 300 MG CAPSULE PO (08:35)
[2024-05-18] MEDS: Cholecalciferol (Vitamin D3) 25 MCG TABLET PO (08:35)
[2024-05-18] MEDS: traMADoL HCL 50 MG TABLET 100 MG PO ×2 (12:36→20:44)
--- NOTE | 2024-05-18 15:53 | HO.PSYCHPN ---
Subjective Subjective Date of Service: 05/18/24 Reason For Visit: Depression Subjective Notes: Conditional Voluntary Interim History: The nursing staff reported the patient had been on her bed most of the time no changes in her mental status. Waiting for placement. Mental Status Exam Mental Status Exam Patient Appearance: Appropriate Patient Orientation: Person and Situation Level of Consciousness: Awake and Appropriate Patient Behavior: Guarded and Passive Mood Description: Withdrawn Affect Description: Constricted Patient Cognition Impaired: Yes Ability to Follow Directions: Fair Speech Pattern: Clear Hallucinations: None Delusions: Not Present Thought Process: Linear Thought Content: positive for Circumstantial Judgement: Fair Diagnostics Vital Signs (24Hr): Vital Signs - 24 hr 05/17/24 20:00 05/17/24 20:47 05/18/24 00:04 Temperature 97.8 F Pulse Rate 86 80 Respiratory Rate 16 16 Blood Pressure 122/60 122/60 Pulse Oximetry 96 Oxygen Delivery Method Room Air 05/18/24 08:05 Temperature 98.4 F Pulse Rate 92 Respiratory Rate 18 Blood Pressure 132/72 Pulse Oximetry 95 Oxygen Delivery Method Room Air BMI result Body Mass Index 39.3 Labs 04/17/24 03:55 05/17/24 07:52 Labs: Laboratory Results - last 48 hr 05/17/24 07:52 Creatinine 0.72 Estim Creat Clear Calc 91.9 Estimated GFR > 60 Imaging Radiology Impressions: ITS Impressions Ankle X-Ray 04/27/24 16:38 IMPRESSION: Trimalleolar ankle fracture redemonstrated with evidence of some fracture healing of the distal fibula with minimal, if any, healing of the tibia fracture. On the lateral projection, the alignment appears unchanged compared with the intraoperative images and improved compared with the preoperative images. Persistent, albeit decreased, lateral subluxation of the talus with respect to the tibia on the frontal projection allowing for slight differences in projection. Medications Medications Current Medications Acetaminophen (Acetaminophen 325 Mg Tablet) 650 mg PO Q6H PRN PRN Reason: Headache/Pain Mild Scale (1-3) Last Admin: 05/17/24 20:48 Dose: 650 mg Al Hydroxide/Mg Hydroxide (Magnesium Hydrox/Alum Hydrox 30 Ml Oral.Susp) 30 ml PO Q6H PRN PRN Reason: Heartburn/Nausea Amlodipine Besylate (Amlodipine Besylate 5 Mg Tablet) 5 mg PO DAILY [facility]; Protocol Last Admin: 05/18/24 08:35 Dose: 5 mg Apixaban (Apixaban 5 Mg Tablet) 5 mg PO BID [facility] Last Admin: 05/18/24 08:34 Dose: 5 mg Ascorbic Acid (Ascorbic Acid 500 Mg Tablet) 500 mg PO DAILY [facility] Last Admin: 05/18/24 08:34 Dose: 500 mg Atorvastatin Calcium (Atorvastatin Calcium 40 Mg Tablet) 40 mg PO DAILY [facility] Last Admin: 05/18/24 08:34 Dose: 40 mg Benzocaine (Throat Lozenge, Medicated Lozenge) 1 lozenge MUCOUS MEM Q2H PRN PRN Reason: Sore Throat Cyanocobalamin (Cyanocobalamin (Vitamin B-12) 1,000 Mcg Tablet) 1,000 mcg PO DAILY [facility] Last Admin: 05/18/24 08:34 Dose: 1,000 mcg Docusate Sodium (Docusate Sodium 100 Mg Capsule) 200 mg PO DAILY PRN PRN Reason: constipation Duloxetine HCl (Duloxetine Hcl 60 Mg Capsule.Dr) 60 mg PO BID [facility] Last Admin: 05/18/24 08:35 Dose: 60 mg Gabapentin (Gabapentin 300 Mg Capsule) 600 mg PO BEDTIME [facility] Last Admin: 05/17/24 20:47 Dose: 600 mg Gabapentin (Gabapentin 300 Mg Capsule) 300 mg PO DAILY [facility] Last Admin: 05/18/24 08:35 Dose: 300 mg Hydroxyzine HCl (Hydroxyzine Hcl 25 Mg Tablet) 25 mg PO Q6H PRN PRN Reason: Anxiety Last Admin: 05/16/24 21:15 Dose: 25 mg Lamotrigine (Lamotrigine 100 Mg Tablet) 300 mg PO BEDTIME [facility] Last Admin: 05/17/24 20:47 Dose: 300 mg Losartan Potassium (Losartan Potassium 25 Mg Tablet) 25 mg PO DAILY [facility]; Protocol Last Admin: 05/18/24 08:34 Dose: 25 mg Magnesium Hydroxide (Milk Of Magnesia 30 Ml Oral.Susp) 30 ml PO DAILY PRN PRN Reason: Constipation Metformin HCl (Metformin Hcl 500 Mg Tablet) 500 mg PO BID [facility] Last Admin: 05/18/24 08:34 Dose: 500 mg Metoprolol Tartrate (Metoprolol Tartrate 50 Mg Tablet) 50 mg PO BID [facility]; Protocol Last Admin: 05/18/24 08:34 Dose: 50 mg Nystatin (Nystatin Powder 15 Gm Bottle) 1 appl TOPICAL TID [facility]PL[facility]ED BY [facility]; Protocol Last Admin: 05/18/24 15:18 Dose: Not Given Omeprazole (Omeprazole 40 Mg Capsule.Dr) 40 mg PO DAILY@0630 [facility] Last Admin: 05/18/24 05:43 Dose: 40 mg Tramadol HCl (Tramadol Hcl 50 Mg Tablet) 100 mg PO Q6H PRN PRN Reason: Pain, Severe (Pain Scale 7-10) Last Admin: 05/18/24 12:36 Dose: 100 mg Trazodone HCl (Trazodone Hcl 50 Mg Tablet) 50 mg PO BEDTIME MRX1 PRN PRN Reason: Insomnia Last Admin: 05/17/24 20:47 Dose: 50 mg Vitamin D (Cholecalciferol (Vitamin D3) 25 Mcg Tablet) 25 mcg PO DAILY [facility] Last Admin: 05/18/24 08:35 Dose: 25 mcg Allergies Allergies Allergy/AdvReac Type Severity Reaction Status Date / Time mirabegron [From Myrbetriq] Allergy Hallucinati Verified 04/17/24 02:13 ons Assessment & Plan Assessment & Plan (1) MDD (major depressive disorder), recurrent episode, moderate: Status: Acute Code(s): F33.1 - Major depressive disorder, recurrent, moderate Plan The patient is a 73-year-old female, , with a past history of borderline personality disorder, major depressive disorder and a recent fracture of her ankle that required surgery by orthopedic service who was brought into the facility since she disclosed suicidal thoughts. The patient, whenever she is frustrated disclosed suicidal thoughts but she has never hurt herself seriously in the last 40 years. She was transferring to this facility for psychiatric treatment but so far, the patient had been stable waiting for placement. Plan 1. Continue with medical treatment. 2. The patient has already finished her vancomycin IV for 60 days. We are going to discontinue the central line. 3. Transferred to subacute rehab. 4. Paperwork already done waiting for placement Reason for continued inpatient stay Substantial Risk for: inability to function, rapid decompensation and med/psych decompensation Time Spent With Patient Time: Total time managing care of this patient today _20___ minutes.
[2024-05-18 20:00] VITALS: BP 118/70; PULSE 90; RESP 18; TEMP 37.2; O2SAT 96
[2024-05-18] MEDS: lamoTRIgine 100 MG TABLET 300 MG PO (20:44)
[2024-05-18] MEDS: traZODone HCL 50 MG TABLET PO (20:44)
[2024-05-18] MEDS: Gabapentin 300 MG CAPSULE 600 MG PO (20:44)
[2024-05-19 00:10] VITALS: RESP 18
[2024-05-19] MEDS: Omeprazole 40 MG CAPSULE.DR PO (05:54)
[2024-05-19 08:00] VITALS: BP 133/78; PULSE 93; RESP 18; TEMP 36.4; O2SAT 96
[2024-05-19] MEDS: metFORMIN HCl 500 MG TABLET PO (08:24)
[2024-05-19] MEDS: Cholecalciferol (Vitamin D3) 25 MCG TABLET PO (08:24)
[2024-05-19 08:25] VITALS: BP 133/78; PULSE 93
[2024-05-19] MEDS: DULoxetine HCl 60 MG CAPSULE.DR PO (08:25)
[2024-05-19] MEDS: Ascorbic Acid 500 MG TABLET PO (08:25)
[2024-05-19] MEDS: Apixaban 5 MG TABLET PO (08:25)
[2024-05-19] MEDS: Metoprolol Tartrate 50 MG TABLET PO (08:25)
[2024-05-19] MEDS: Atorvastatin Calcium 40 MG TABLET PO (08:25)
[2024-05-19] MEDS: Cyanocobalamin (Vitamin B-12) 1,000 MCG TABLET 1000 MCG PO (08:25)
[2024-05-19] MEDS: Gabapentin 300 MG CAPSULE PO (08:25)
[2024-05-19 08:26] VITALS: BP 133/78
[2024-05-19] MEDS: amLODIPine Besylate 5 MG TABLET PO (08:26)
[2024-05-19] MEDS: Losartan Potassium 25 MG TABLET PO (08:26)
[2024-05-19] MEDS: Nystatin Powder 15 GM BOTTLE 1 APPL TOPICAL (08:29)
--- NOTE | 2024-05-19 14:49 | PC.ADMIT ---
Pt discharged to [facility]. Reported readiness for discharge. D/C information on medications and appointments given to pt. Ashley took belongings with her. Left the unit via stretcher at 14:28 to [facility].
== END 2024-05-19 14:28 | DRG 885 ==
LOC: HO.ED 04:48 → HO.PGERI 04-19 19:50
PROVIDERS: Emergency Medicine; Physician Assistant; Admitting Provider Clinical Nurse Specialist Psychiatric/Mental Health, Adult; Emergency Provider Emergency Medicine; Visit Provider Clinical Nurse Specialist Psychiatric/Mental Health, Adult
DX: F33.1 Major depressive disorder, recurrent, moderate (principal); R45.851 Suicidal ideations; M86.9 Osteomyelitis, unspecified; E11.69 Type 2 diabetes mellitus with other specified complication; F60.3 Borderline personality disorder; G47.33 Obstructive sleep apnea (adult) (pediatric); S82.851A Displaced trimalleolar fracture of right lower leg, initial encounter for closed fracture; X58.XXXA Exposure to other specified factors, initial encounter; I48.91 Unspecified atrial fibrillation; E11.42 Type 2 diabetes mellitus with diabetic polyneuropathy; K21.9 Gastro-esophageal reflux disease without esophagitis; E66.01 Morbid (severe) obesity due to excess calories; Z68.39 Body mass index [BMI] 39.0-39.9, adult; Z87.891 Personal history of nicotine dependence; Z79.01 Long term (current) use of anticoagulants; Z79.84 Long term (current) use of oral hypoglycemic drugs; Z79.899 Other long term (current) drug therapy
CPT/HCPCS: 29405; 36415; 73610; 80048; 80061; 80076; 80202; 80307; 81001; 81003; 82565; 82607; 82746; 82947; 83036; 83735; 84439; 84443; 85025; 85610; 87086; 87088; 87186; 93005; 94660; 97110; 97163; 97530; 97535; 99285; J3370; S9485

== ENCOUNTER → 2024-04-17 02:31 | Outpatient (BNV) | payer MEDICARE, OTHER, SELFPAY | PROVIDERS: Emergency Provider Emergency Medicine; Visit Provider Physician Assistant | DX: S82.851K Displaced trimalleolar fracture of right lower leg, subsequent encounter for closed fracture with nonunion (principal) | CPT/HCPCS: 29405; 99024; 99499 ==

== ENCOUNTER → 2024-04-19 11:57 | Outpatient (BNV) | payer MEDICARE, OTHER, SELFPAY | PROVIDERS: Emergency Provider Emergency Medicine; Visit Provider Internal Medicine | DX: R94.31 Abnormal electrocardiogram [ECG] [EKG] (principal) | CPT/HCPCS: 93010 ==

== ENCOUNTER → 2024-04-19 19:00 | Outpatient (BNV) | payer MEDICARE, OTHER, SELFPAY | PROVIDERS: Admitting Provider Clinical Nurse Specialist Psychiatric/Mental Health, Adult; Emergency Provider Emergency Medicine; Visit Provider Psychiatry & Neurology Psychiatry | DX: F60.3 Borderline personality disorder (principal); F33.2 Major depressive disorder, recurrent severe without psychotic features; S82.851K Displaced trimalleolar fracture of right lower leg, subsequent encounter for closed fracture with nonunion | CPT/HCPCS: 90792; 99231; 99232; 99238 ==

== ENCOUNTER 2024-05-27 10:28 | Outpatient (REF) | payer MEDICARE, OTHER, SELFPAY | END 2024-05-27 10:29 | disposition home or self-care (01) | LOC: HO.HOSX 10:28 | PROVIDERS: Visit Provider Physician Assistant | DX: S82.851K Displaced trimalleolar fracture of right lower leg, subsequent encounter for closed fracture with nonunion (principal); E11.621 Type 2 diabetes mellitus with foot ulcer; L97.519 Non-pressure chronic ulcer of other part of right foot with unspecified severity; I48.91 Unspecified atrial fibrillation; Z79.01 Long term (current) use of anticoagulants | CPT/HCPCS: 99212 ==

== ENCOUNTER 2024-05-27 10:43 | Outpatient (AMB) | payer MEDICARE, OTHER, SELFPAY ==
--- OUTSIDE RECORDS SUMMARY | 2024-05-27 10:47 | XMS_ITS | Continuity of Care Document ---
Author Organization [facility] Syed Gene lt Address [address] [place] [address]- Care Team Providers Care Truss Designer Name Role Phone Erik Kim DO Primary Care Physician [facility] Date[facility]s): 03/24/24 - 04/23/24 [facility] Adult [address] [place] [address]- Allergies, Adverse Reactions, Alerts Substance Reaction Severity [...] virus vaccine, inactivated 08/09/17 Avery rded SARS-CoV-2(COVID-19)mRNA-LNP vac([id number]) 08/02/23 Recorded Influenza Virus Vaccine (oldterm) 1 [...] Influenza Virus Vaccine (oldterm) 08/26/11 Recorde d [id number] 12y+ bivalent booster vax 08/06/22 Recorded pneumococcal 13-valent vaccine 6 07/25/22 Recorded pneumococcal 13-valent vaccine 7 12/14/18 Recorded pneumococcal 13-valent vaccine 12/14/18 Recorded pneumococcal 13-valent vaccine 8 06/06/16 Recorded SARS-CoV-2 mRNA (sdypyji-okgf-esykx) vax 03/13/22 Recorded SARS-CoV-2 mRNA (jmyipfi-uocx-cbqpx) vax 9 08/21/21 Recorded SARS-CoV-2 mRNA (yiggckn-qafn-ohrhr) vax 10 01/13/21 Recorded SARS-CoV-2 (COVID-19) mRNA BNT-162b2 vac 09/03/21 Recorded SARS-CoV-2 (COVID-19) Ad26 vaccine 01/13/21 Record ed zoster vaccine, inactivated 03/13/20 Recorded zoster vaccine, inactivated 12/09/19 Recorded Zoster Vaccine Live 11 12/09/19 Recorded Zoster Vaccine Live 03/13/12 Recorded tetanus/diphtheria/pertussis, acel(Tdap) 10/21/11 Recorded Pneumococcal Vaccine (oldterm) 11/08/06 Given pneumococcal 23-valent vaccine 12 11/08/06 Recorde d 1Result Comment: Unit: Unknown Route: Intramuscular Community Relations Advisor: Sanofi Pasteur 2Result Comment: Route: Intramuscular Community Relations Advisor: Sanofi Pasteur 3Result Comment: Unit: Unknown 4Result Comment: Unit: Unknown 5Result Comment: Unit: Unknown 6Result Comment: Unit: Unknown Route: Intramuscular Community Relations Advisor: Pfizer 7Result Comment: Unit: Unknown Route: Intramuscular Community Relations Advisor: Wyeth 8Result Comment: Unit: Unknown 9Result Comment: Route: Intramuscular Community Relations Advisor: Sanofi Pasteur 10Result Comment: Unit: Unknown Route: Intramuscular Community Relations Advisor: Suleiman 11Result Comment: Route: Intramuscular Community Relations Advisor: GlaxoSmithKline 12Result Comment: Unit: Unknown Medications acetaminophen 325 mg oral tablet TAKE 2 TABLETS (650 MG)ORALLY EVERY 6 HOURS NEEDED FOR PAIN, MILD (PAIN SCALE 1-3) Start Date: 09/22/23 Status: Ordered atorvastatin 40 mg oral tablet 1 tablet = 40 mg, By Mouth, Daily, # 90 tablet, 3 Refills, Maintenance, 10/27/23 11:06:00 EST, Tablet, [facility]/pharmacy #[id number], Partial fill upon patient [...] Refills, Maintenance, 12/23/23 17:15:00 EST, [facility] STORE [id number], 170.18, cm, 12/17/23 10:17:00 EST, Height, 127.2, kg, 10/02/23 3:00:00 EST, Dry Weight Start Date: 12/23/23 Status: Ordered estradiol 0.1 mg/g vaginal cream = 1 Gm, Vaginally, Daily at bedtime, # 30 Gm, 11 Refills, Maintenance, 11/17/23 9:45:00 EST, [facility]/pharmacy #[id number], Partial fill upon patient [...] Details, Route to Pharmacy Electronically, [facility]/pharmacy #[id number], Partial fill upon patient reque... Start Date: 10/27/23 Status: Ordered Gemtesa 75 mg oral tablet 1 tablet = 75 mg, By Mouth, Daily, # 30 tablet, 11 Refills, Maintenance, 11/17/23 9:45:00 EST, [facility]/pharmacy #[id number], Partial fill upon patient [...] Refills, Maintenance, 12/23/23 17:13:00EST, Tablet, [facility]/pharmacy #[id number], Partial fill upon patient request if the prescription is for a schedule II opioid drug., 170.18, cm, 12/17/23 10:17:00... Start Date: 12/23/23 Status: Ordered metoprolol 50 mg oral tablet 50 mg, 1, tablet, By Mouth, 2 times a day, # 180 tablet, Refills 3, Tot. Refills 3, Maintenance, 10/27/23 11:05:00 EST, Route to Pharmacy Electronically, [facility]/pharmacy #[id number], Partial fill upon patientrequest if the prescription is for a schedule II op... Start Date: 10/27/23 Status: Ordered nystatin topical 557955 u/gm powder See Instructions, APPLY TOPICALLY 3 TIMES A DAY TO RASH, # 60 Gm, 1 Refills, Maintenance, 02/02/24 7:47:00 EDT, [facility], 30, APPLY TOPICALLY 3 TIMES A DAY TO RASH, 170, cm, 01/19/24 14:19:00 EDT, Height, 136, kg, 01/17/24 9:30:00 EST, Dry Weight Start Date: 02/02/24 Status: Ordered omeprazole 40 mg oral enteric coated capsule 1 capsule = 40 mg, By Mouth, Daily, # 90 capsule, 3 Refills, Maintenance, 12/23/23 17:13:00 EST, ECCapsule, [facility]/pharmacy #[id number], Partial fill upon patient request [...] Role: Lifetime Consulting Physician Address: Address: [address] [place] [address] [address] [facility] [place] [address]- Name: Maynor Lyons RN Position: [facility] RN Member Role: Primary Care Nurse Name: Erik Kim DO Position: [facility] Physician - Primary Care Member Role: PCP Address: Address: [address] [place] [id number]- Name: Dianna Frost RN Position: [facility] RN Member Role: Primary Care Nurse Care Team Related Persons Name: LORENA HARRISON Address: home [address] [place] [address] Name: LAYNE TREADWELL Address: home [address] [place] [address]
--- OUTSIDE RECORDS SUMMARY | 2024-05-27 10:48 | XMS_ITS | Continuity of Care Document ---
Author Organization [facility] Syed Gene lt Address [address] [place] [address]- Care Team Providers Care Supervisor Joiners Name Role Phone Erik Kim DO Primary Care Physician [facility] Date[facility]s): 03/31/24 - 04/30/24 [facility] Adult [address] [place] [address]- Allergies, Adverse Reactions, Alerts Substance Reaction Severity [...] virus vaccine, inactivated 08/09/17 Avery rded SARS-CoV-2(COVID-19)mRNA-LNP vac([id number]) 08/02/23 Recorded Influenza Virus Vaccine (oldterm) 1 [...] Influenza Virus Vaccine (oldterm) 08/26/11 Recorde d [id number] 12y+ bivalent booster vax 08/06/22 Recorded pneumococcal 13-valent vaccine 6 07/25/22 Recorded pneumococcal 13-valent vaccine 7 12/14/18 Recorded pneumococcal 13-valent vaccine 12/14/18 Recorded pneumococcal 13-valent vaccine 8 06/06/16 Recorded SARS-CoV-2 mRNA (therqkg-kkcw-xierw) vax 03/13/22 Recorded SARS-CoV-2 mRNA (iuvhugy-druk-mslls) vax 9 08/21/21 Recorded SARS-CoV-2 mRNA (icmcsje-smvt-ohozb) vax 10 01/13/21 Recorded SARS-CoV-2 (COVID-19) mRNA BNT-162b2 vac 09/03/21 Recorded SARS-CoV-2 (COVID-19) Ad26 vaccine 01/13/21 Record ed zoster vaccine, inactivated 03/13/20 Recorded zoster vaccine, inactivated 12/09/19 Recorded Zoster Vaccine Live 11 12/09/19 Recorded Zoster Vaccine Live 03/13/12 Recorded tetanus/diphtheria/pertussis, acel(Tdap) 10/21/11 Recorded Pneumococcal Vaccine (oldterm) 11/08/06 Given pneumococcal 23-valent vaccine 12 11/08/06 Recorde d 1Result Comment: Unit: Unknown Route: Intramuscular S Iron Worker: Sanofi Pasteur 2Result Comment: Route: Intramuscular S Iron Worker: Sanofi Pasteur 3Result Comment: Unit: Unknown 4Result Comment: Unit: Unknown 5Result Comment: Unit: Unknown 6Result Comment: Unit: Unknown Route: Intramuscular S Iron Worker: Pfizer 7Result Comment: Unit: Unknown Route: Intramuscular S Iron Worker: Wyeth 8Result Comment: Unit: Unknown 9Result Comment: Route: Intramuscular S Iron Worker: Sanofi Pasteur 10Result Comment: Unit: Unknown Route: Intramuscular S Iron Worker: Suleiman 11Result Comment: Route: Intramuscular S Iron Worker: GlaxoSmithKline 12Result Comment: Unit: Unknown Medications acetaminophen [...] Refills, Maintenance, 12/23/23 17:15:00 EST, [facility], 170.18, cm, 12/17/23 10:17:00 EST, Height, 127.2, [...] Maintenance, 12/23/23 17:13:00EST, Tablet, [facility]/pharmacy #[id number], Partial fill upon patient request if the [...] Start Date: 10/27/23 Status: Ordered nystatin topical [id number] u/gm powder See Instructions, APPLY TOPICALLY 3 TIMES A DAY TO RASH, # 60 Gm, 1 Refills, Maintenance, 02/02/24 7:47:00 EDT, [facility], 30, APPLY TOPICALLY 3 TIMES A DAY TO RASH, 170, cm, 01/19/24 14:19:00 EDT, Height, 136, kg, 01/17/24 9:30:00 EST, Dry Weight Start Date: 02/02/24 Status: Ordered omeprazole 40 mg oral enteric coated capsule 1 capsule = 40 mg, By Mouth, Daily, # 90 capsule, 3 Refills, Maintenance, 12/23/23 17:13:00 EST, ECCapsule, [facility]/pharmacy #[id number], Partial fill upon patient request [...] Personnel Name: Armani Reid DO Position: [facility] Renal MD Member Role: Lifetime Consulting Physician Address: Address: [address] [place] [address] [address] [facility] [place] [address]- Name: Maynor Lyons RN Position: [facility] RN Member Role: Primary Care Nurse Name: Erik Kim DO Position: [facility] Physician - Primary Care Member Role: PCP Address: Address: [address] [place] [id number]- Name: Dianna Frost RN Position: [facility] RN Member Role: Primary Care Nurse Care Team Related Persons Name: LORENA HARRISON Address: [address] [place] [address] Name: LAYNE TREADWELL Address: home [address] [place] [address]
--- NOTE | 2024-05-27 10:55 | MHC.OFFVIS ---
Intake Visit Reasons: PO-right ankle with cast off and xrays Intake Note: Ashley is a 74 year old female who presents today for a post op appointment s/p right ankle ORIF / / NE. Patient reports she is not having any pain or discomfort. She states she is not feeling anything since she has neuropathy. Denies numbness and tingling. Allergies mirabegron [From Myrbetriq] Allergy (Verified 05/27/24 10:57) Hallucinations HPI HPI PO-right ankle with cast off and xrays: Details: 74-year-old female who presents in the office today for a follow-up of a right tri-malleolar fracture, which occurred on 02/24/2024 status post a mechanical fall. The patient was last seen in the hospital on 05/11/2024 by Marie Senior PA-C when she was placed in a new short leg cast. She was instructed to remain non-weightbearing. ? ? While in the office today, the patient reports she is not having any pain or discomfort. She states she is not feeling ?anything? due to having neuropathy. She denies numbness or tingling. ? [facility], [facility] Medical History Elevated cholesterol Anxiety SELMA treated with BiPAP Diabetic ulcer of right foot Atrial fibrillation Borderline personality disorder Major depressive disorder Diabetes mellitus Chronic anticoagulation Surgical History Hx of esophagogastroduodenoscopy Hx of colonoscopy History of carpal tunnel release of both wrists Hx of bilateral cataract extraction Hx of bilateral breast reduction surgery Hx of hysterectomy Social History Household Members: None Housing: Custodial Housing Other:: [place] independent living Do you presently have visiting nurse or other home services: No Unable to assess alcohol history related to: Refusing to respond Comment: 1:1 Patient Tobacco Use Status: Former Tobacco user service: No Sexual orientation: Straight/Heterosexual Review of Systems Const All systems reviewed & are unremarkable except as noted in HPI and below Physical Exam Const General: cooperative, healthy appearing and no acute distress Resp Effort & Inspection: normal respiratory effort and able to speak in complete sentences Cardio Rate: regular rate Peripheral pulses: Peripheral pulses 2+ throughout GI Palpation (GI): Soft to palpation Skin Lesions: no lesions Rashes: no rashes Extrem Other: Right ankle skin intact No open wounds No drainage Prominent medial mal NVI Assessment & Plan Assessment & Plan (1) Trimalleolar fracture of right ankle: Code(s): S82.851A - Displaced trimalleolar fracture of right lower leg, initial encounter for closed fracture Category: Medical Qualifiers: Encounter type: subsequent encounter Fracture healing: with nonunion Fracture type: closed Qualified Code(s): S82.851K - Displaced trimalleolar fracture of right lower leg, subsequent encounter for closed fracture with nonunion (2) Diabetic ulcer of right foot: Comment: Being treated by wound care Code(s): E11.621 - Type 2 diabetes mellitus with foot ulcer; L97.519 - Non-pressure chronic ulcer of other part of right foot with unspecified severity Category: Medical Qualifiers: Diabetes mellitus type: type 2 Diabetic foot ulcer location: toe Non-pressure ulcer stage: unspecified non-pressure ulcer stage Qualified Code(s): E11.621 - Type 2 diabetes mellitus with foot ulcer; L97.519 - Non-pressure chronic ulcer of other part of right foot with unspecified severity (3) Diabetes mellitus: Code(s): E11.9 - Type 2 diabetes mellitus without complications Category: Medical (4) Atrial fibrillation: Comment: on Eliquis Code(s): I48.91 - Unspecified atrial fibrillation Category: Medical Qualifiers: Atrial fibrillation type: unspecified Qualified Code(s): I48.91 - Unspecified atrial fibrillation Plan Ms. Hurtado is a 74-year-old female who presents in the office today for a follow-up of a right tri-malleolar fracture, which occurred on 02/24/2024 status post a mechanical fall. The patient was last seen in the hospital on 05/11/2024 by Marie Senior PA-C when she was placed in a new short leg cast. She was instructed to remain non-weightbearing. ? ? While in the office today, the patient reports she is not having any pain or discomfort. She states she is not feeling ?anything? due to having neuropathy. She denies numbness or tingling.? ? I spoke to Dr. Paulino prior to today?s encounter and a collaborative treatment plan was made. She is three months status post her injury. The short-leg cast was removed while in the office today and she was placed into a tall walking boot, off the shelf. She was educated she may begin to weight bear as tolerated with the use of a walker. She was instructed she should ambulate with the boot at all times. Follow-up will be in four weeks with Dr. Paulino in the office and we will obtain repeat x-rays, or sooner if needed. ? ? X-rays of the right ankle which were obtained while in the office today and were reviewed by me, Angelica Trevizo PA-C, redemonstration of a right ankle tri-malleolar fracture. ? Orders: Orders XR ankle RT min 3V Today M25.579 - Pain in unspecified ankle and joints of unspecified foot Patient Instructions: Scribed by Shaniqua Esquivel medical records manager, for Angelica Trevizo PA-C on 05/27/2024 at 10:47 am, EST.? Coding Level of Care Code Global (62570) Diagnoses Closed trimalleolar fracture of right ankle with nonunion, subsequent encounter S82.851K Encounter type: subsequent encounter Fracture healing: with nonunion Fracture type: closed Diabetic ulcer of toe of right foot associated with type 2 diabetes mellitus, unspecified ulcer stage E11.621; L97.519 Diabetes mellitus type: type 2 Diabetic foot ulcer location: toe Non-pressure ulcer stage: unspecified non-pressure ulcer stage Diabetes mellitus E11.9 Atrial fibrillation, unspecified type I48.91 Atrial fibrillation type: unspecified
== END 2024-05-27 11:37 | disposition home or self-care (01) ==
LOC: HO.HOS 10:43
PROVIDERS: Visit Provider Physician Assistant
DX: S82.851K Displaced trimalleolar fracture of right lower leg, subsequent encounter for closed fracture with nonunion (principal); E11.621 Type 2 diabetes mellitus with foot ulcer; I48.91 Unspecified atrial fibrillation
CPT/HCPCS: 99024

== ENCOUNTER 2024-06-24 12:35 | Outpatient (AMB) | payer MEDICARE, OTHER, SELFPAY ==
--- NOTE | 2024-06-24 13:19 | MHC.OFFVIS ---
Intake Visit Reasons: OV-right ankle fx 4 wk f/u with x-rays Intake Note: This is a 74 year old female who presents for a right ankle fracture 4 week follow up. Allergies mirabegron [From Myrbetriq] Allergy (Verified 06/24/24 13:21) Hallucinations Medication List - Last Reconciled 06/24/24 by Jessica Akers, RN acetaminophen 650 mg (2 x 325 mg) PO Q6H PRN 30 days acetaminophen 650 mg (2 x 325 mg) PO Q6H PRN amlodipine 5 mg See Protocol PO DAILY 30 days apixaban (Eliquis) 5 mg PO BID ascorbic acid (vitamin C) 500 mg PO DAILY 30 days atorvastatin 40 mg PO DAILY 30 days cholecalciferol (vitamin D3) 25 mcg PO DAILY 30 days cyanocobalamin (vitamin B-12) 1,000 mcg PO DAILY 30 days docusate sodium 200 mg (2 x 100 mg) PO DAILY 30 days duloxetine 60 mg PO BID 30 days gabapentin 600 mg (2 x 300 mg) PO BEDTIME 30 days gabapentin 300 mg PO DAILY 30 days lamotrigine 300 mg (2 x 150 mg) PO BEDTIME 30 days losartan 25 mg See Protocol PO DAILY 30 days metformin 500 mg PO BID 30 days metoprolol tartrate 50 mg See Protocol PO BID 30 days nystatin 1 appl See Protocol topical TID 30 days omeprazole 40 mg PO DAILY 30 days tramadol 50 mg PO Q6H PRN tramadol 50 mg PO Q6H PRN tramadol 100 mg (2 x 50 mg) PO Q6H PRN 30 days trazodone 50 mg PO BEDTIME MRX1 PRN 30 days HPI HPI OV-right ankle fx 4 wk f/u with x-rays: Details: Ashley returns approximately 4 months status post bimalleolar ankle fracture. This was initially treated with closed reduction and casting but she returned after walking on it with a badly displaced swollen foot. She is insensate from the mid calf down bilaterally due to neuropathy and so her treatment was complicated. Ultimately we tried an external fixator and everything ultimately failed she improved with closed reduction nonweightbearing and antibiotics and returns today feeling good but having some irritation from the boot that she has been wearing. 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 Atrial fibrillation Borderline personality disorder Major depressive disorder Diabetes mellitus Chronic anticoagulation Surgical History Hx of esophagogastroduodenoscopy Hx of colonoscopy History of carpal tunnel release of both wrists Hx of bilateral cataract extraction Hx of bilateral breast reduction surgery Hx of hysterectomy Social History Household Members: None Housing: Assisted Housing Other:: [facility] independent living Do you presently have visiting nurse or other home services: No Unable to assess alcohol history related to: Refusing to respond Comment: 1:1 Patient Tobacco Use Status: Former Tobacco user service: No Sexual orientation: Straight/Heterosexual Physical Exam Extrem Other: All of her prior incisions and skin is healed except for a small punctate wound on the medial malleolus. She states this is from where the boot has been rubbing her. Results Reviewed Results Reviewed: I personally reviewed relevant radiographs. There is a reduced but displaced bimalleolar ankle fracture Assessment & Plan Assessment & Plan (1) Trimalleolar fracture of right ankle: Code(s): S82.851A - Displaced trimalleolar fracture of right lower leg, initial encounter for closed fracture Category: Medical Qualifiers: Encounter type: subsequent encounter Fracture type: closed Fracture healing: with nonunion Qualified Code(s): S82.851K - Displaced trimalleolar fracture of right lower leg, subsequent encounter for closed fracture with nonunion Plan: This is a 74-year-old woman with a badly displaced bimalleolar ankle fracture in the setting an insensate foot. Her wounds have actually healed quite nicely and I recommend weight-bearing as tolerated and street shoes with a walker. I will see her back in approximately 6 weeks. She has a small punctate wound over the medial malleolus. She is at a rehab facility and she tells me that they have wound care there. I recommend she treat this with aggressive wound care. (2) Peripheral neuropathy: Comment: concern over foot infection no organisms seen Code(s): G62.9 - Polyneuropathy, unspecified Category: Medical Plan: Peripheral neuropathy has complicated her care and remains an issue. I instructed her about the risks of walking with a malaligned foot in the setting of neuropathy and that she needs to do daily skin checks. Orders: Orders XR ankle RT min 3V 06/24/24 M25.579 - Pain in unspecified ankle and joints of unspecified foot Coding Level of Care Code Est Pt Level 4 (58638) Diagnoses Closed trimalleolar fracture of right ankle with nonunion, subsequent encounter S82.851K Encounter type: subsequent encounter Fracture type: closed Fracture healing: with nonunion Peripheral neuropathy G62.9
== END 2024-06-24 13:44 | disposition home or self-care (01) ==
PROVIDERS: Visit Provider Orthopaedic Surgery
DX: S82.851K Displaced trimalleolar fracture of right lower leg, subsequent encounter for closed fracture with nonunion (principal); G62.9 Polyneuropathy, unspecified
CPT/HCPCS: 99024

== ENCOUNTER 2024-06-24 12:35 | Outpatient (REF) | payer MEDICARE, OTHER, SELFPAY ==
--- NOTE | ~2024-06-24 | XR_ITS ---
EXAMINATION: XR ANKLE, RIGHT CLINICAL INFORMATION: Pain. COMPARISON: Multiple priors, most recent right ankle radiographs dated 04/27/2024. TECHNIQUE: AP, lateral, and mortise views of the right ankle. FINDINGS: Redemonstration with prior trimalleolar fracture in unchanged anatomic alignment. There are persistent incomplete osseous bridging across the distal fibular fracture with persistent cortical step-off measuring 0.8 cm in ML dimension. The medial malleolar fracture is unfused with a persistent fracture gap measuring up to 0.3 cm. The posterior malleolar fracture is poorly visualized and appears partially fused with new bone/callus formation. Orthopedic screw tracks within the distal tibia. Lateral subluxation of the talar dome in relation to the tibial plafond, similar when compared to the prior examination with associated lateral tibial plafond and bony remodeling. 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 Plantar calcaneal spur. XR/XR ankle RT min 3V IMPRESSION: 1. Trimalleolar fracture in unchanged anatomic alignment with persistent lateral subluxation of the talar dome in relation to the tibial plafond. There is incomplete osseous bridging across the distal fibular fracture with persistent cortical step-off measuring 0.8 cm in ML dimension. 2. Partially fused posterior malleolar fracture with new bone/callus formation. 3. Progressive subtalar arthritis. Electronically signed by: Kirk Alatorre MD 07/21/2024 08:41 PM EDT
== END 2024-06-24 12:36 | disposition home or self-care (01) ==
LOC: HO.HOSX 12:35
PROVIDERS: Visit Provider Orthopaedic Surgery
DX: M25.571 Pain in right ankle and joints of right foot (principal); S82.851K Displaced trimalleolar fracture of right lower leg, subsequent encounter for closed fracture with nonunion; G62.9 Polyneuropathy, unspecified
CPT/HCPCS: 73610; 99212

== ENCOUNTER 2024-07-22 13:02 | Outpatient (AMB) | payer MEDICARE, OTHER, SELFPAY ==
--- NOTE | 2024-07-22 13:05 | MHC.OFFVIS ---
Intake Visit Reasons: OV - F/U Right ankle fx Intake Note: Ashley is a 74 year old female who presents today for a follow up of her right ankle Trimalleolar fracture 02/24/2024. Right Ankle ORIF 03/10/24 Right Ankle Ex Fix 03/11/24 Metatarsal Pin removal w I&D 03/24/24 Ex Fix Removal w/ I&D 03/30/24 Allergies [email or web address] [From Myrbetriq] Allergy (Verified 07/22/24 13:05) Hallucinations HPI HPI OV - F/U Right ankle fx: Details: Ashley is a 74 year old female who presents today for a follow up of her right ankle Trimalleolar fracture 02/24/2024. Right Ankle ORIF 03/10/24 Right Ankle Ex Fix 03/11/24 Metatarsal Pin removal w I&D 03/24/24 Ex Fix Removal w/ I&D 03/30/24 PFSH Medical History Elevated cholesterol Anxiety SELMA treated with BiPAP Diabetic ulcer of right foot Atrial fibrillation Borderline personality disorder Major depressive disorder Diabetes mellitus Chronic anticoagulation Surgical History Hx of esophagogastroduodenoscopy Hx of colonoscopy History of carpal tunnel release of both wrists Hx of bilateral cataract extraction Hx of bilateral breast reduction surgery Hx of hysterectomy Social History Household Members: None Housing: [facility] Housing Other:: [facility] Do you presently have visiting nurse or other home services: No Unable to assess alcohol history related to: Refusing to respond Comment: 1:1 Patient Tobacco Use Status: Former Tobacco user service: No Sexual orientation: Straight/Heterosexual Physical Exam Extrem Other: Prominent medial malleolus with stable ankle motion. Describes falling into valgus with weight or does not surprising. Skin over the medial malleolus intact but thin Assessment & Plan Assessment & Plan (1) Peripheral neuropathy: Comment: concern over foot infection no organisms seen Code(s): G62.9 - Polyneuropathy, unspecified Category: Medical Plan: Ashley needs a department store general manager for skin checks. She has severe neuropathy but at this point at least her skin is intact. (2) Trimalleolar fracture of right ankle: Code(s): S82.851A - Displaced trimalleolar fracture of right lower leg, initial encounter for closed fracture Category: Medical Qualifiers: Encounter type: subsequent encounter Fracture type: closed Fracture healing: with nonunion Qualified Code(s): S82.851K - Displaced trimalleolar fracture of right lower leg, subsequent encounter for closed fracture with nonunion Plan: Fracture is displaced but healed. If there are any changes in the skin over the medial malleolus she should alert me immediately. Coding Level of Care Code Est Pt Level 4 (98912) Diagnoses Peripheral neuropathy G62.9 Closed trimalleolar fracture of right ankle with nonunion, subsequent encounter S82.851K Encounter type: subsequent encounter Fracture type: closed Fracture healing: with nonunion
== END 2024-07-22 13:35 | disposition home or self-care (01) ==
PROVIDERS: Visit Provider Orthopaedic Surgery
DX: S82.851D Displaced trimalleolar fracture of right lower leg, subsequent encounter for closed fracture with routine healing (principal); G62.9 Polyneuropathy, unspecified
CPT/HCPCS: 99214

== ENCOUNTER → 2024-07-22 13:02 | Outpatient (BNVA) | payer MEDICARE, OTHER, SELFPAY | PROVIDERS: Visit Provider Orthopaedic Surgery | DX: S82.851K Displaced trimalleolar fracture of right lower leg, subsequent encounter for closed fracture with nonunion (principal); G62.9 Polyneuropathy, unspecified | CPT/HCPCS: 99212 ==

== ENCOUNTER 2025-02-21 09:03 | Outpatient (REF) | payer MEDICARE, OTHER, SELFPAY ==
--- NOTE | ~2025-02-21 | XR_ITS ---
CLINICAL HISTORY: M25.579 - Pain in unspecified ankle and joints of unspecified foot 3 views right ankle Comparison: 06/24/24 Findings: There is a tibiotalar joint effusion in the lateral projection. Cortical defects are present in the distal tibia and calcaneus region of orthopedic hardware removal. There is a healed fracture, Mao type 3 with exuberant callus formation involving the distal fibula. There is 7 mm medial subluxation of the distal tibial articular surface in relation to the talar dome. There is [id number] approximation of tibial and talar articular surfaces with cartilage loss. There is an ununited transverse fracture of the medial malleolus. No significant arthritic change No radiopaque foreign body Impression: Deformity with subluxation of talus in relation to the distal tibia unchanged from previous exam. No acute fractures. This document has been electronically signed by: Jose Pabon MD on 02/21/2025 21:24:40
--- OUTSIDE RECORDS SUMMARY | 2025-02-21 09:56 | XMS_ITS | Clinical Summary ---
Author Organization Unknown Care Team Providers Care Cause Analyst Name Role Phone FLAVIA SUMMERS, HANDY Unavailable Unavailable DANAE SIZING SPRAYER, CHUCHO Unavailable Unavailable KENNEY PT, MARLENE Unavailable Unavailable SPAFFORD OT, WADE Unavailable Unavailable KATHY FIRING PIN GAUGER, LETICIA Unavailable Unavailable CONDINO TONYA/BLANCO, MANNY Unavailable Unav latonyaable RN, ANIBAL Unavailable Unavailable Payers Payer Name Policy Type Policy Number Effective Date Expira tion Date MEDICARE.NGS.PDGM [id number] Problems Condition Name Condition Details Condition Category Status Onset Date Resolution Date Last Treatment Date Treating Clinician Comments UNSP OPEN WOUND OF LEFT GREAT TOE W/O DAMAGE TO NAIL, SUBS Active 12-01 00:00: 00 UNSP OPEN WOUND OF RIGHT GREAT TOE W/O DAMAGE TO NAIL, SUBS Active 01-24 00:00: 00 DISPL TRIMALLEOL FX R LOW LEG, SUBS FOR CLOS FX W ROUTN HEAL Active 07-27 00:00: 00 DISLOCATION OF RIGHT ANKLE JOINT, SUBSEQUENT ENCOUNTER Active 07-27 00:00: 00 URINARY TRACT INFECTION, SITE NOT SPECIFIED Active 01-24 00:00: 00 ESSENTIAL (PRIMARY) HYPERTENSION Active 08-07 00:00: 00 TYPE 2 DIABETES MELLITUS WITH DIABETIC POLYNEUROPAT HY Active 07-27 00:00: 00 TYPE 2 DIABETES W DIABETIC PERIPHERAL ANGIOPATH W/O GANGRENE Active 07-27 00:00: 00 VENOUS INSUFFICIENC Y (CHRONIC) (PERIPHERAL) Active 07-27 00:00: 00 ANEMIA, UNSPECIFIED Active 07-27 00:00: 00 CHRONIC ATRIAL FIBRILLATION , UNSPECIFIED Active 08-07 00:00: 00 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 Active 07-27 00:00: 00 DEPRESSION, UNSPECIFIED Active 08-07 00:00: 00 GENERALIZED ANXIETY DISORDER Active 07-27 00:00: 00 UNSPECIFIED PROTEIN-VERONIQUE MARIA ISABEL MALNUTRITION Active 07-27 00:00: 00 HYPERLIPIDEM IA, UNSPECIFIED Active 08-07 00:00: 00 BORDERLINE PERSONALITY DISORDER Active 08-07 00:00: 00 DYSPHAGIA, PHARYNGOESOP HAGEAL PHASE Active 07-27 00:00: 00 GASTRO-ESOPH AGEAL REFLUX DISEASE WITHOUT ESOPHAGITIS Active 07-27 00:00: 00 OBSTRUCTIVE SLEEP APNEA (ADULT) (PEDIATRIC) Active 07-27 00:00: 00 CONSTIPATION , UNSPECIFIED Active 07-27 00:00: 00 MORBID (SEVERE) OBESITY DUE TO EXCESS CALORIES Active 07-27 00:00: 00 BODY MASS INDEX [BMI] 45.0-49.9, ADULT Active 07-27 00:00: 00 HISTORY OF FALLING Active 07-27 00:00: 00 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 Ordering Clinician Indication Dosage Frequency Signature (SIG) Comments Components amlodipine 5 mg tablet 08-07 00:00: 00 10-04 23:59 :00 No [id number] HYPERTENSIO N 1 tablet DAILY 1 tablet DAILY (route: oral) Med Classific ation: Cardiovas cular Therapy Agents atorvastati n 40 mg tablet 08-07 00:00: 00 Yes [id number] HYPERLIPIDE TARYN 1 tablet BEDTIME 1 tablet BEDTIME (route: oral) Med Classific ation: Cardiovas cular Therapy Agents Colace 100 mg capsule 08-07 00:00: 00 Yes [id number] CONSTIPATIO N 1 capsule 2 TIMES DAILY 1 capsule 2 TIMES DAILY (route: oral) Med Classific ation: Gastroint estinal Therapy Agents cyanocobala min (vit B-12) 1,000 mcg tablet 08-07 00:00: 00 Yes [id number] SUPPLEMENT 1 tablet DAILY 1 tablet DAILY (route: oral) Med Classific ation: Electroly te Balance-N utritiona l Products duloxetine 60 mg capsule,del ayed release 08-07 00:00: 00 Yes [id number] BORDERLINE PERSONALITY DISORDER 2 capsule DAILY 2 capsule DAILY (route: oral) Med Classific ation: Central Nervous System Agents Eliquis 5 mg tablet 08-07 00:00: 00 Yes [id number] CLOT PREVENTION 1 tablet 2 TIMES DAILY 1 tablet 2 TIMES DAILY (route: oral) Med Classific ation: Hematolog ical Agents gabapentin 300 mg capsule 08-07 00:00: 00 08-10 23:59 :00 No [id number] NERVE PAIN 1 capsule DAILY 1 capsule DAILY (route: oral) Med Classific ation: Central Nervous System Agents hydroxyzine HCl 25 mg tablet 08-07 00:00: 00 08-10 23:59 :00 No [id number] SLEEP ASSIST 1 tablet DAILY 1 tablet DAILY (route: oral) Med Classific ation: Central Nervous System Agents lamotrigine 150 mg tablet 08-07 00:00: 00 Yes [id number] SEIZURES 2 tablet BEDTIME 2 tablet BEDTIME (route: oral) Med Classific ation: Central Nervous System Agents losartan 25 mg tablet 08-07 00:00: 00 Yes [id number] HYPERTENSIO N 1 tablet DAILY 1 tablet DAILY (route: oral) Med Classific ation: Cardiovas cular Therapy Agents metformin 500 mg tablet 08-07 00:00: 00 Yes [id number] DM2 1 tablet 2 TIMES DAILY 1 tablet 2 TIMES DAILY (route: oral) Med Classific ation: Endocrine metoprolol tartrate 50 mg tablet 08-07 00:00: 00 Yes [id number] HYPERTENSIO N 1 tablet 2 TIMES DAILY 1 tablet 2 TIMES DAILY (route: oral) Med Classific ation: Cardiovas cular Therapy Agents omeprazole 40 mg capsule,del ayed release 08-07 00:00: 00 Yes [id number] GERD 1 capsule DAILY 1 capsule DAILY (route: oral) Med Classific ation: Gastroint estinal Therapy Agents potassium chloride ER 20 mEq tablet,exte nded release 08-07 00:00: 00 08-18 23:59 :00 No [id number] HYPOKALEMIA 1 tablet DAILY 1 tablet DAILY (route: oral) Med Classific ation: Electroly te Balance-N utritiona l Products quetiapine 25 mg tablet 08-07 00:00: 00 10-08 23:59 :00 No [id number] ANTIPSYCHOT IC 1 tablet 2 TIMES DAILY 1 tablet 2 TIMES DAILY (route: oral) Med Classific ation: Central Nervous System Agents tramadol 50 mg tablet 08-07 00:00: 00 08-10 23:59 :00 No [id number] PAIN 1 tablet NEEDED 1 tablet NEEDED (route: oral) Med Classific ation: Analgesic , Anti-infl ammatory or Antipyret ic Tylenol 325 mg capsule 08-07 00:00: 00 08-10 23:59 :00 No [id number] PAIN 1 capsule NEEDED 1 capsule NEEDED (route: oral) Med Classific ation: Analgesic , Anti-infl ammatory or Antipyret ic Vitamin D3 25 mcg (1,000 unit) capsule 08-07 00:00: 00 08-25 23:59 :00 No [id number] SUPPLEMENT 1 capsule DAILY 1 capsule DAILY (route: oral) Med Classific ation: Electroly te Balance-N utritiona l Products acetaminoph en 325 mg tablet 2023-11 00:00: 00 Yes [id number] PAIN 2 tablet EVERY 6 HOURS 2 tablet EVERY 6 HOURS (route: oral) Med Classific ation: Analgesic , Anti-infl ammatory or Antipyret ic gabapentin 300 mg capsule 2023-11 00:00: 00 Yes [id number] PAIN 2 capsule BEDTIME 2 capsule BEDTIME (route: oral) Med Classific ation: Central Nervous System Agents hydroxyzine HCl 25 mg tablet 2023-11 0- 00:00: 00 10-04 23:59 :00 No [id number] ANXIETY 1 tablet BEDTIME 1 tablet BEDTIME (route: oral) Med Classific ation: Central Nervous System Agents tizanidine 2 mg tablet 2023-11 0- 00:00: 00 10-04 23:59 :00 No [id number] SPASMS 1 tablet EVERY 4 HOURS 1 tablet EVERY 4 HOURS (route: oral) Med Classific ation: Locomotor System tramadol 50 mg tablet 2023-11 0 00:00: 00 10-08 23:59 :00 No [id number] PAIN 1 tablet EVERY 6 HOURS 1 tablet EVERY 6 HOURS (route: oral) Med Classific ation: Analgesic , Anti-infl ammatory or Antipyret ic Macrodantin 100 mg capsule 2023-11 0 00:00: 00 08-25 23:59 :00 No [id number] UTI 1 capsule 2 TIMES DAILY 1 capsule 2 TIMES DAILY (route: oral) Med Classific ation: Genitouri nary Therapy trospium ER 60 mg capsule,ext ended release 24 hr 2023-11 00:00: 00 Yes [id number] OAB 1 capsule BEDTIME 1 capsule BEDTIME (route: oral) Med Classific ation: Genitouri nary Therapy Calcium 600 with Vitamin D3 600 mg-12.5 mcg (500 unit) capsule 2023-11 00:00: 00 Yes [id number] SUPPLEMENT 2 capsule DAILY 2 capsule DAILY (route: oral) Med Classific ation: Electroly te Balance-N utritiona l Products cephalexin 500 mg capsule 2023-11 00:00: 00 10-01 23:59 :00 No [id number] LEFT GREAT/3RD TOES INFECTION 1 capsule EVERY 8 HOURS 1 capsule EVERY 8 HOURS (route: oral) Med Classific ation: Anti-Infe ctive Agents amlodipine 2.5 mg tablet 2023-11 00:00: 00 Yes [id number] HTN 2 tablet DAILY 2 tablet DAILY (route: oral) Med Classific ation: Cardiovas cular Therapy Agents Vitamin C 500 mg tablet 2023-11 00:00: 00 Yes [id number] SUPPLEMENT 1 tablet DAILY 1 tablet DAILY (route: oral) Med Classific ation: Electroly te Balance-N utritiona l Products Wellbutrin XL 300 mg 24 hr tablet, extended release 2023-11 00:00: 00 Yes [id number] ANXIETY 1 tablet DAILY 1 tablet DAILY (route: oral) Med Classific ation: Central Nervous System Agents gabapentin 300 mg capsule 2023-11 00:00: 00 Yes [id number] PAIN 1 capsule EVERY AM 1 capsule EVERY AM (route: oral) Med Classific ation: Central Nervous System Agents doxepin 10 mg capsule 2023-11 00:00: 00 Yes [id number] ISOMNIA 1-2 capsule BEDTIME 1-2 capsule BEDTIME (route: oral) Med Classific ation: Central Nervous System Agents cephalexin 500 mg capsule - 00:00: 00 11-24 23:59 :00 No [id number] LEFT GREAT TOE INFECTION 1 capsule 2 TIMES DAILY 1 capsule 2 TIMES DAILY (route: oral) Med Classific ation: Anti-Infe ctive Agents trazodone 50 mg tablet - 00:00: 00 Yes [id number] ISOMNIA 1 tablet BEDTIME 1 tablet BEDTIME (route: oral) Med Classific ation: Central Nervous System Agents nitrofurant oin monohydrate /macrocryst als 100 mg capsule -18 00:00: 00 12-08 23:59 :00 No [id number] UTI 1 mg 2 TIMES DAILY 1 mg 2 TIMES DAILY (route: oral) Med Classific ation: Genitouri nary Therapy cephalexin 500 mg capsule 2-21 00:00: 00 01-10 23:59 :00 No [id number] LEFT GREAT TOE INFECTION 1 capsule EVERY 8 HOURS 1 capsule EVERY 8 HOURS (route: oral) Med Classific ation: Anti-Infe ctive Agents sulfamethox azole 800 mg-trimetho prim 160 mg tablet 2025-0 2-21 00:00: 00 01-06 23:59 :00 No [id number] UTI 1 tablet 2 TIMES DAILY 1 tablet 2 TIMES DAILY (route: oral) Med Classific ation: Anti-Infe ctive Agents trospium 20 mg tablet 3-13 00:00: 00 Yes [id number] OVEREACTIVE BLADDER 1 tablet EVERY PM 1 tablet EVERY PM (route: oral) Med Classific ation: Genitouri nary Therapy Vital Signs Vital Name Observation Time Observation Value Commen ts Temperature 2025-02-18 09:58:00.000 98.1 [degF] Temperature 2025-02-14 08:59:00.000 96.8 [degF] Temperature 2025-02-07 09:28:00.000 97.3 [degF] Temperature 2025-02-03 14:10:00.000 97.7 [degF] Pulse 2025-02-18 09:58:00.000 98 /min Pulse 2025-02-14 08:59:00.000 77 /min Pulse 2025-02-07 09:28:00.000 70 /min Pulse 2025-02-03 14:10:00.000 82 /min O2 Saturation (%) 2025-02-14 08:59:00.000 97 % O2 Saturation (%) 2025-02-07 09:28:00.000 98 % O2 Saturation (%) 2025-02-03 14:10:00.000 96 % Respirations 2025-02-18 09:58:00.000 18 /min Respirations 2025-02-14 08:59:00.000 18 /min Respirations 2025-02-07 09:28:00.000 18 /min Respirations 2025-02-03 14:10:00.000 18 /min Systolic Blood Pressure 2025-02-18 09:58:00.000 150 mm [Hg] Systolic Blood Pressure 2025-02-14 08:59:00.000 118 mm [Hg] Systolic Blood Pressure 2025-02-07 09:28:00.000 108 mm [Hg] Systolic Blood Pressure 2025-02-03 14:10:00.000 110 mm [Hg] Diastolic Blood Pressure 2025-02-18 09:58:00.000 86 mm [Hg] Diastolic Blood Pressure 2025-02-14 08:59:00.000 70 mm [Hg] Diastolic Blood Pressure 2025-02-07 09:28:00.000 78 mm [Hg] Diastolic Blood Pressure 2025-02-03 14:10:00.000 78 mm [Hg] Plan of Treatment Planned Activity Planned Date Details Comments Future Scheduled Test RN TO OBSE RVE, ASSESS, EVALUATE, AND DEVELOP AN INDIVIDUALIZED PLAN OF CARE. AGENCY MAY ACCEPT ORDERS FROM CONSULTING PHYSICIANS. RN TO OBSERVE AND ASSESS, FIRING PIN GAUGER/EMERGENCY MEDICAL SERVICE COORDINATOR TO OBSERVE FOR RISK FOR FALLS AND INSTRUCT IN FALL PREVENTION, HOME SAFETY, MEDICATION MANAGEMENT, INFECTION PREVENTION, AND NUTRITION MANAGEMENT. RN/FIRING PIN GAUGER/EMERGENCY MEDICAL SERVICE COORDINATOR NURSE MAY PERFORM O2 SATURATION LEVEL ON ADMISSION AND PRN FOR SN TO ASSESS/FIRING PIN GAUGER TO OBSERVE PATIENT, WITH NOTIFICATION TO THE PHYSICIAN IF SATURATION IS 90% IN THE ABSENCE OF MORE SPECIFIC PARAMETERS FROM THE PHYSICIAN. AGENCY MAY PERFORM A RESUMPTION OF CARE VISIT FOLLOWING ANY HOSPITAL ADMISSION. RN/FIRING PIN GAUGER/EMERGENCY MEDICAL SERVICE COORDINATOR TO MONITOR CO-MORBID CONDITIONS LISTED ON THE PLAN OF CARE AND ANY NEW CONDITIONS THAT PRESENT THEMSELVES DURING THIS EPISODE TO IDENTIFY CHANGES AND INTERVENE TO MINIMIZE COMPLICATIONS. [code = RN TO OBSERVE, ASSESS, EVALUATE, AND DEVELOP AN INDIVIDUALIZED PLAN OF CARE. AGENCY MAY ACCEPT ORDERS FROM CONSULTING PHYSICIANS. RN TO OBSERVE AND ASSESS, FIRING PIN GAUGER/EMERGENCY MEDICAL SERVICE COORDINATOR TO OBSERVE FOR RISK FOR FALLS AND INSTRUCT IN FALL PREVENTION, HOME SAFETY, MEDICATION MANAGEMENT, INFECTION PREVENTION, AND NUTRITION MANAGEMENT. RN/FIRING PIN GAUGER/EMERGENCY MEDICAL SERVICE COORDINATOR NURSE MAY PERFORM O2 SATURATION LEVEL ON ADMISSION AND PRN FOR SN TO ASSESS/FIRING PIN GAUGER TO OBSERVE PATIENT, WITH NOTIFICATION TO THE PHYSICIAN IF SATURATION IS 90% IN THE ABSENCE OF MORE SPECIFIC PARAMETERS FROM THE PHYSICIAN. AGENCY MAY PERFORM A RESUMPTION OF CARE VISIT FOLLOWING ANY HOSPITAL ADMISSION. RN/FIRING PIN GAUGER/EMERGENCY MEDICAL SERVICE COORDINATOR TO MONITOR CO-MORBID CONDITIONS LISTED ON THE PLAN OF CARE AND ANY NEW CONDITIONS THAT PRESENT THEMSELVES DURING THIS EPISODE TO IDENTIFY CHANGES AND INTERVENE TO MINIMIZE COMPLICATIONS.] Future Scheduled Test DIABETES M ONITORING RN/EMERGENCY MEDICAL SERVICE COORDINATOR/FIRING PIN GAUGER TO MONITOR BLOOD SUGAR LOG FOR BLOOD SUGAR READINGS THAT ARE BEING CHECKED BY PATIENT 1 TIME A DAY. PATIENT THERAPEUTIC BLOOD SUGAR PARAMETERS ARE 70 - 300. REPORT BLOOD SUGARS OUT OF RANGE TO PHYSICIAN. NURSE MAY PERFORM FINGER STICK BLOOD GLUCOSE NEEDED FOR SIGNS AND SYMPTOMS OF HYPO AND HYPERGLYCEMIA. RN/EMERGENCY MEDICAL SERVICE COORDINATOR/FIRING PIN GAUGER TO MONITOR ADHERENCE OF PATIENT PERFORMING DIABETIC FOOT CARE AND MAY PERFORM DIABETIC FOOT CARE PRN. RN/EMERGENCY MEDICAL SERVICE COORDINATOR/FIRING PIN GAUGER TO MONITOR FOR ADHERENCE TO DIABETIC SELF-CARE AND MANAGEMENT INCLUDING MEDICATIONS. [code = DIABETES MONITORING RN/EMERGENCY MEDICAL SERVICE COORDINATOR/FIRING PIN GAUGER TO MONITOR BLOOD SUGAR LOG FOR BLOOD SUGAR READINGS THAT ARE BEING CHECKED BY PATIENT 1 TIME A DAY. PATIENT THERAPEUTIC BLOOD SUGAR PARAMETERS ARE 70 - 300. REPORT BLOOD SUGARS OUT OF RANGE TO PHYSICIAN. NURSE MAY PERFORM FINGER STICK BLOOD GLUCOSE NEEDED FOR SIGNS AND SYMPTOMS OF HYPO AND HYPERGLYCEMIA. RN/EMERGENCY MEDICAL SERVICE COORDINATOR/FIRING PIN GAUGER TO MONITOR ADHERENCE OF PATIENT PERFORMING DIABETIC FOOT CARE AND MAY PERFORM DIABETIC FOOT CARE PRN. RN/EMERGENCY MEDICAL SERVICE COORDINATOR/FIRING PIN GAUGER TO MONITOR FOR ADHERENCE TO DIABETIC SELF-CARE AND MANAGEMENT INCLUDING MEDICATIONS.] Future Scheduled Test MEDICATION MANAGEMENT; RN/FIRING PIN GAUGER/EMERGENCY MEDICAL SERVICE COORDINATOR TO REVIEW MEDICATIONS FOR INTERACTIONS, EFFECTIVENESS OF DRUG THERAPY, AND SIGNS/SYMPTOMS OF ADVERSE REACTIONS. MAY INSTRUCT AND REINFORCE MEDICATION TEACHING RELATED TO THE USE OF MEDICATIONS, DOSAGE, FREQUENCY, PURPOSE, SIDE EFFECTS, AND TO REPORT COMPLICATIONS. [code = MEDICATION MANAGEMENT; RN/FIRING PIN GAUGER/EMERGENCY MEDICAL SERVICE COORDINATOR TO REVIEW MEDICATIONS FOR INTERACTIONS, EFFECTIVENESS OF DRUG THERAPY, AND SIGNS/SYMPTOMS OF ADVERSE REACTIONS. MAY INSTRUCT AND REINFORCE MEDICATION TEACHING RELATED TO THE USE OF MEDICATIONS, DOSAGE, FREQUENCY, PURPOSE, SIDE EFFECTS, AND TO REPORT COMPLICATIONS.] Future Scheduled Test SKIN INTEG RITY RN TO ASSESS AND TEACH, FIRING PIN GAUGER/EMERGENCY MEDICAL SERVICE COORDINATOR TO OBSERVE AND TEACH INTEGUMENTARY STATUS TO IDENTIFY CHANGES AND INTERVENE TO MINIMIZE COMPLICATIONS. PROVIDE SKILLED TEACHING OF GENERAL WOUND AND SKIN CARE AND PREVENTION RELATED TO POTENTIAL FOR OR ACTUAL ALTERED SKIN INTEGRITY. [code = SKIN INTEGRITY RN TO ASSESS AND TEACH, FIRING PIN GAUGER/EMERGENCY MEDICAL SERVICE COORDINATOR TO OBSERVE AND TEACH INTEGUMENTARY STATUS TO IDENTIFY CHANGES AND INTERVENE TO MINIMIZE COMPLICATIONS. PROVIDE SKILLED TEACHING OF GENERAL WOUND AND SKIN CARE AND PREVENTION RELATED TO POTENTIAL FOR OR ACTUAL ALTERED SKIN INTEGRITY.] Future Scheduled Test RN/FIRING PIN GAUGER/EMERGENCY MEDICAL SERVICE COORDINATOR TO PERFORM/TEACH PATIENT/CAREGIVER WOUND CARE TO BILATERAL GREATER TOES: IRRIGATE/CLEANSE WITH NS, APPLY MEDI HONEY TO WOUND BED, MAY APPLY SKIN BARRIER TO PERIWOUND PRN TO PREVENT MACERATION AND PROTECT PERIWOUND COVER WITH BORDERED FOAM, CHANGE DRESSING TWICE WEEKLY AND PRN FOR SOILED OR DISLODGED DRESSING. [code = RN/FIRING PIN GAUGER/EMERGENCY MEDICAL SERVICE COORDINATOR TO PERFORM/TEACH PATIENT/CAREGIVER WOUND CARE TO BILATERAL GREATER TOES: IRRIGATE/CLEANSE WITH NS, APPLY MEDI HONEY TO WOUND BED, MAY APPLY SKIN BARRIER TO PERIWOUND PRN TO PREVENT MACERATION AND PROTECT PERIWOUND COVER WITH BORDERED FOAM, CHANGE DRESSING TWICE WEEKLY AND PRN FOR SOILED OR DISLODGED DRESSING. ] Future Scheduled Test PAIN MANAG EMENT; RN TO ASSESS AND TEACH, EMERGENCY MEDICAL SERVICE COORDINATOR/FIRING PIN GAUGER TO OBSERVE AND TEACH AND PROVIDE EDUCATION ON PAIN MANAGEMENT TECHNIQUES. [code = PAIN MANAGEMENT; RN TO ASSESS AND TEACH, EMERGENCY MEDICAL SERVICE COORDINATOR/FIRING PIN GAUGER TO OBSERVE AND TEACH AND PROVIDE EDUCATION ON PAIN MANAGEMENT TECHNIQUES.] Future Scheduled Test GENITOURIN TWIN MANAGEMENT; RN TO ASSESS AND TEACH, FIRING PIN GAUGER/EMERGENCY MEDICAL SERVICE COORDINATOR TO OBSERVE AND TEACH RELATED TO ALTERED GENITOURINARY STATUS TO MINIMIZE COMPLICATIONS AND REDUCE HOSPITALIZATION. [code = GENITOURINARY MANAGEMENT; RN TO ASSESS AND TEACH, FIRING PIN GAUGER/EMERGENCY MEDICAL SERVICE COORDINATOR TO OBSERVE AND TEACH RELATED TO ALTERED GENITOURINARY STATUS TO MINIMIZE COMPLICATIONS AND REDUCE HOSPITALIZATION.] Future Scheduled Test URINARY IN CONTINENCE MANAGEMENT; RN TO ASSESS AND TEACH, FIRING PIN GAUGER/LVNTO OBSERVE AND TEACH MANAGEMENT OF URINARY INCONTINENCE. TEACH/INSTRUCT ON PREVENTING INFECTION AND SKIN BREAKDOWN. RN/FIRING PIN GAUGER/EMERGENCY MEDICAL SERVICE COORDINATOR MAY INSTRUCT IN BLADDER TRAINING PROGRAM INDICATED. [code = URINARY INCONTINENCE MANAGEMENT; RN TO ASSESS AND TEACH, FIRING PIN GAUGER/LVNTO OBSERVE AND TEACH MANAGEMENT OF URINARY INCONTINENCE. TEACH/INSTRUCT ON PREVENTING INFECTION AND SKIN BREAKDOWN. RN/FIRING PIN GAUGER/EMERGENCY MEDICAL SERVICE COORDINATOR MAY INSTRUCT IN BLADDER TRAINING PROGRAM INDICATED.] Future Scheduled Test URINARY TR ACT INFECTION MANAGEMENT; RN/EMERGENCY MEDICAL SERVICE COORDINATOR/FIRING PIN GAUGER TO PROVIDE SKILLED TEACHING AND SELF- CARE MANAGEMENT RELATED TO UTI TO MINIMIZE COMPLICATIONS AND REDUCE THE RISK OF HOSPITALIZATION. [code = URINARY TRACT INFECTION MANAGEMENT; RN/EMERGENCY MEDICAL SERVICE COORDINATOR/FIRING PIN GAUGER TO PROVIDE SKILLED TEACHING AND SELF- CARE MANAGEMENT RELATED TO UTI TO MINIMIZE COMPLICATIONS AND REDUCE THE RISK OF HOSPITALIZATION.] Future Scheduled Test FALL REDUC TION MANAGEMENT; RN TO ASSESS AND OBSERVE, FIRING PIN GAUGER/EMERGENCY MEDICAL SERVICE COORDINATOR TO OBSERVE FALL RISK FACTORS AND EDUCATE PATIENT/CAREGIVER ON STRATEGIES TO MINIMIZE THE RISK OF FALLING. [code = FALL REDUCTION MANAGEMENT; RN TO ASSESS AND OBSERVE, FIRING PIN GAUGER/EMERGENCY MEDICAL SERVICE COORDINATOR TO OBSERVE FALL RISK FACTORS AND EDUCATE PATIENT/CAREGIVER ON STRATEGIES TO MINIMIZE THE RISK OF FALLING.] Future Scheduled Test PHYSICAL T HERAPIST TO EVALUATE FOR STRENGTH AND MOBILITY. [code = PHYSICAL THERAPIST TO EVALUATE FOR STRENGTH AND MOBILITY. ] Future Scheduled Test AGENCY MAY PERFORM A RESUMPTION OF CARE VISIT FOLLOWING ANY HOSPITAL ADMISSION. PT TO EVALUATE, OBSERVE / ASSESS, AND MONITOR, SIZING SPRAYER TO OBSERVE AND MONITOR, PROVIDE SKILLED THERAPEUTIC INTERVENTION, ACTIVITY, EDUCATION, AND TRAINING TO ADDRESS; PT/SIZING SPRAYER TO PROVIDE GAIT TRAINING FOR IMPROVED MOBILITY AND /OR TO NORMALIZE GAIT PATTERN NEUROMUSCULAR RE-EDUCATION / BALANCE / POSTURAL CONTROL (PT) THERAPEUTIC EXERCISES AND ESTABLISHING A HOME EXERCISE PROGRAM (PT/SIZING SPRAYER) SIT TO/FROM STAND TRANSFERS (PT/SIZING SPRAYER) WHEELCHAIR TRANSFER (PT/SIZING SPRAYER) PT TO ASSESS / SIZING SPRAYER TO MONITOR FOR AND REPORT EARLY SIGNS OF ANTICOAGULANT TOXICITY TO THE PHYSICIAN AND/OR THE RN CLINICAL DIRECTOR CASE FOR PHYSICIAN NOTIFICATION AND TO PROVIDE PATIENT/CAREGIVER EDUCATION ON ANTICOAGULANT THERAPY PT / SIZING SPRAYER TO MONITOR AND EDUCATE ON OXYGEN SATURATION DURING ADLS/IADLS, NOTIFY PHYSICIAN AND/OR THE RN CLINICAL DIRECTOR CASE FOR PHYSICIAN NOTIFICATION AND IF O2 SATS BELOW PHYSICIAN ORDERED PARAMETERS AFTER 10 MIN OF REST PT / SIZING SPRAYER TO MONITOR FOR HYPO/HYPERGLYCEMIA AND CONDUCT ROUTINE FOOT INSPECTIONS. RECORD PATIENT REPORTED BLOOD SUGAR LEVELS AND NOTIFY PHYSICIAN AND/OR THE RN CLINICAL DIRECTOR CASE FOR PHYSICIAN NOTIFICATION IF BLOOD SUGAR LEVELS ARE OUTSIDE ORDERED PARAMETERS. TEACH PATIENT/CAREGIVER ON DAILY FOOT INSPECTIONS PT / SIZING SPRAYER TO OBSERVE WOUND/INCISION AND/OR INTACT DRESSING ON BILATERAL GREAT TOES AND REPORT EARLY SIGNS AND SYMPTOMS OF WOUND DETERIORATION, COMPLICATIONS, OR INFECTION TO PHYSICIAN AND/OR THE RN CLINICAL DIRECTOR CASE FOR PHYSICIAN NOTIFICATION. PT TO ASSESS / SIZING SPRAYER TO MONITOR CARDIO/RESPIRATORY SYSTEM; AND NOTIFY THE PHYSICIAN AND/OR THE RN CLINICAL DIRECTOR CASE FOR PHYSICIAN NOTIFICATION FOR EARLY SIGNS AND SYMPTOMS OF EXACERBATION OR DETERIORATION. PT/SIZING SPRAYER TO IDENTIFY FALL RISK FACTORS; EDUCATE THE PATIENT/CAREGIVER ON WAYS TO REDUCE FALL RISK FACTORS AND ESTABLISH HOME EXERCISE PROGRAM TO MINIMIZE FALL RISK. MAY TEACH THE PATIENT FLOOR RECOVERY WHEN CLINICALLY APPROPRIATE [code = AGENCY MAY PERFORM A RESUMPTION OF CARE VISIT FOLLOWING ANY HOSPITAL ADMISSION. PT TO EVALUATE, OBSERVE / ASSESS, AND MONITOR, SIZING SPRAYER TO OBSERVE AND MONITOR, PROVIDE SKILLED THERAPEUTIC INTERVENTION, ACTIVITY, EDUCATION, AND TRAINING TO ADDRESS; PT/SIZING SPRAYER TO PROVIDE GAIT TRAINING FOR IMPROVED MOBILITY AND /OR TO NORMALIZE GAIT PATTERN NEUROMUSCULAR RE-EDUCATION / BALANCE / POSTURAL CONTROL (PT) THERAPEUTIC EXERCISES AND ESTABLISHING A HOME EXERCISE PROGRAM (PT/SIZING SPRAYER) SIT TO/FROM STAND TRANSFERS (PT/SIZING SPRAYER) WHEELCHAIR TRANSFER (PT/SIZING SPRAYER) PT TO ASSESS / SIZING SPRAYER TO MONITOR FOR AND REPORT EARLY SIGNS OF ANTICOAGULANT TOXICITY TO THE PHYSICIAN AND/OR THE RN CLINICAL DIRECTOR CASE FOR PHYSICIAN NOTIFICATION AND TO PROVIDE PATIENT/CAREGIVER EDUCATION ON ANTICOAGULANT THERAPY PT / SIZING SPRAYER TO MONITOR AND EDUCATE ON OXYGEN SATURATION DURING ADLS/IADLS, NOTIFY PHYSICIAN AND/OR THE RN CLINICAL DIRECTOR CASE FOR PHYSICIAN NOTIFICATION AND IF O2 SATS BELOW PHYSICIAN ORDERED PARAMETERS AFTER 10 MIN OF REST PT / SIZING SPRAYER TO MONITOR FOR HYPO/HYPERGLYCEMIA AND CONDUCT ROUTINE FOOT INSPECTIONS. RECORD PATIENT REPORTED BLOOD SUGAR LEVELS AND NOTIFY PHYSICIAN AND/OR THE RN CLINICAL DIRECTOR CASE FOR PHYSICIAN NOTIFICATION IF BLOOD SUGAR LEVELS ARE OUTSIDE ORDERED PARAMETERS. TEACH PATIENT/CAREGIVER ON DAILY FOOT INSPECTIONS PT / SIZING SPRAYER TO OBSERVE WOUND/INCISION AND/OR INTACT DRESSING ON BILATERAL GREAT TOES AND REPORT EARLY SIGNS AND SYMPTOMS OF WOUND DETERIORATION, COMPLICATIONS, OR INFECTION TO PHYSICIAN AND/OR THE RN CLINICAL DIRECTOR CASE FOR PHYSICIAN NOTIFICATION. PT TO ASSESS / SIZING SPRAYER TO MONITOR CARDIO/RESPIRATORY SYSTEM; AND NOTIFY THE PHYSICIAN AND/OR THE RN CLINICAL DIRECTOR CASE FOR PHYSICIAN NOTIFICATION FOR EARLY SIGNS AND SYMPTOMS OF EXACERBATION OR DETERIORATION. PT/SIZING SPRAYER TO IDENTIFY FALL RISK FACTORS; EDUCATE THE PATIENT/CAREGIVER ON WAYS TO REDUCE FALL RISK FACTORS AND ESTABLISH HOME EXERCISE PROGRAM TO MINIMIZE FALL RISK. MAY TEACH THE PATIENT FLOOR RECOVERY WHEN CLINICALLY APPROPRIATE] Goal 2024-10-04 Patient Goal - TO WALK RJ R Goal 2024-12-01 Patient Goal - TO WALK RJ R Goal 2025-01-31 Patient Goal - TO WALK RJ R Goal Patient Goal - TO WALK RJ R Goal Provider Goal - A PLAN OF CARE WILL BE ESTABLISHED THAT MEETS THE PATIENTS NEEDS. PATIENT WILL DEMONSTRATE OXYGEN SATURATION WITHIN NORMAL LIMITS OR PATIENTS OPTIMAL LEVEL ESTABLISHED BY THE PHYSICIAN THROUGHOUT CARE. CHANGES TO CO-MORBID CONDITIONS AND ANY NEW CONDITIONS WILL BE IDENTIFIED AND REPORTED TO THE PHYSICIAN. Goal Provider Goal - BLOOD SUGARS WILL REMAIN WITHIN ESTABLISHED RANGES AND DIABETES CONTROLLED THROUGHOUT EPISODE. Goal Provider Goal - PATIENT/CAREGIVER TO VERBALIZE, AND CONSISTENTLY DEMONSTRATE EFFECTIVE, SAFE MANAGEMENT OF MEDICATION INCLUDING KNOWLEDGE OF EFFECTIVENESS, POTENTIAL SIDE EFFECTS AND DRUG REACTIONS AND WHEN TO CONTACT THE APPROPRIATE CARE PROVIDER. PATIENT/CAREGIVER WILL BE ABLE TO VERBALIZE UNDERSTANDING OF MEDICATION REGIMEN AND ACCURATELY TAKE MEDICATIONS PRESCRIBED WITHOUT ADVERSE EFFECTS BY EOE. Goal Provider Goal - CHANGES IN SKIN INTEGRITY STATUS WILL BE IDENTIFIED AND REPORTED TO THE PHYSICIAN FOR PROMPT INTERVENTION. PATIENT / CAREGIVER WILL VERBALIZE/DEMONSTRATE ADEQUATE KNOWLEDGE OF INTEGUMENTARY STATUS AND APPROPRIATE MEASURES TO PROMOTE SKIN INTEGRITY AND PREVENT INJURY BY EOE. Goal Provider Goal - PATIENT / CAREGIVER WILL VERBALIZE/DEMONSTRATE ABILITY TO PERFORM WOUND CARE. WOUND STATUS WILL IMPROVE EVIDENCED BY A DECREASE IN SIZE, DRAINAGE, ABSENCE OF INFECTION, AND DECREASED PAIN BY EOE. Goal Provider Goal - PATIENT / CAREGIVER WILL VERBALIZE / DEMONSTRATE UNDERSTANDING OF PAIN CONTROL MEASURES BY EOE. Goal Provider Goal - PATIENT / CAREGIVER WILL VERBALIZE/DEMONSTRATE UNDERSTANDING OF MEASURES TO MANAGE ALTERED GENITOURINARY STATUS BY END OF EPISODE. Goal Provider Goal - PATIENT/CAREGIVER WILL VERBALIZE/DEMONSTRATE UNDERSTANDING OF CARE AND MANAGEMENT OF URINARY INCONTINENCE BY EOE. Goal Provider Goal - PATIENT/CAREGIVER WILL VERBALIZE/DEMONSTRATE UNDERSTANDING OF CARE AND MANAGEMENT OF URINARY TRACT INFECTION BY EOE. Goal Provider Goal - PATIENT/CAREGIVER WILL VERBALIZE/DEMONSTRATE UNDERSTANDING OF FALL RISK FACTORS AND IMPLEMENT STRATEGIES TO MINIMIZE FALL RISK. PATIENT/CAREGIVER WILL VERBALIZE/DEMONSTRATE AN ABILITY TO ADHERE TO FALL REDUCTION SELF-MANAGEMENT AND LIFE-STYLE CHANGES BY EOE. Goal Provider Goal - Goal Provider Goal - PT LTG: PATIENT WILL DEMONSTRATE REDUCED GAIT DEVIATIONS TO REDUCE THE RISK FOR FALLING AND MINIMIZE STRAIN ON KNEES/HIPS AND BACK EVIDENCED BY IMPROVED HEEL STRIKE, ADEQUATE STEP LENGTH AND CONSISTENT FOOT CLEARANCE BILATERALLY USING WALKER TO WALK INDEPENDENTLY IN ORDER TO ACCESS ALL AREAS OF THE APT WITHIN 9 WEEKS PT LTG: PATIENT WILL DEMONSTRATE REDUCED FALL RISK EVIDENCED BY TUG TEST (CUT SCORE >11 SECONDS INDICATES INCREASED FALL RISK) IMPROVING FROM UNABLE TO 20 SECONDS WITHIN 9 WEEKS PT LTG: PATIENT WILL DEMONSTRATE IMPROVED FUNCTIONAL STRENGTH EVIDENCED BY FIVE TIMES SIT TO STAND TEST (CUT SCORE >12 SECONDS INDICATES AN INCREASED FALL RISK) IMPROVING FROM 54 SECONDS TO 20 SECONDS WITHIN 9 WEEKS PT LTG: PATIENT WILL DEMONSTRATE INCREASED STRENGTH OF BILATERAL LES FROM 3/5 TO 4/5 WITHIN 9 WEEKS IN ORDER TO IMPROVE SAFETY AND STABILITY WITH GAIT AND STANDING PT STG: PATIENT WILL DEMONSTRATE IMPROVED ABILITY TO PERFORM SIT TO/FROM STAND TRANSFERS TO REDUCE THE RISK OF SKIN BREAKDOWN AND REDUCE FALL RISK FROM CGA TO INDEPENDENT WITHIN 4 WEEKS PT LTG: PATIENT WILL DEMONSTRATE IMPROVED ABILITY TO COMPLETE WHEELCHAIR TRANSFERS TO REDUCE THE RISK OF SKIN BREAKDOWN AND FALL RISK FROM CGA TO INDEPENDENT WITHIN 4 WEEKS. PT LTG: PATIENT WILL NOT EXHIBIT SIGNS AND SYMPTOMS OF ANTICOAGULANT TOXICITY THROUGHOUT EPISODE OF CARE. PT LTG: PATIENT WILL MAINTAIN OXYGEN SATURATION WITHIN PHYSICIAN ORDERED PARAMETERS THROUGHOUT EPISODE OF CARE. PATIENTS BLOOD SUGAR WILL REMAIN WELL CONTROLLED WITH SELF-MANAGEMENT THROUGHOUT EPISODE OF CARE. PT GOAL: THE PATIENT WILL NOT DEMONSTRATE ANY WOUND COMPLICATIONS DURING THE EPISODE OF CARE. PT LTG: PATIENT WILL NOT EXPERIENCE CARDIAC OR RESPIRATORY COMPLICATIONS THROUGHOUT THE EPISODE OF CARE. PT LTG: PATIENT/CAREGIVER WILL DEMONSTRATE ADHERENCE TO FALL REDUCTION SELF-MANAGEMENT AND REDUCING FALL RISK FACTORS TO MINIMIZE FALL RISK BY END OF EPISODE. PT LTG: PATIENT WILL BE INDEPENDENT WITH IMPLEMENTATION OF HEP WITHIN 4 WEEKS Encounters Start Date/Time End Date/Time Encounter Type Admission Type Attending [facility] Care Department Encounter ID Discharge Date Discharge Status Discharge Condition Discharge Reason Percent Goals Met 2024-08-07 00:00:00 2025-04-03 00:00:00 Outpatient RECERTIFIC [facility] [id number]
--- OUTSIDE RECORDS SUMMARY | 2025-02-21 09:56 | XMS_ITS | Data Portability ---
Author Organization [facility] [employer], [employer] Address [address] [place] [id number] Care Team Providers Care Molder Fitting Name Role Phone GUS GOMEZ Primary Care Provider Unavaila GUS Lewis Referring Provider Unavailable MACK COKER Primary Care Provider MACK COKER Primary Care Provider Assessment Encounter Date Assessment Date Assessment LastModified by Organization Details LastModified Time 07/04/2021 07/04/2021 IMPRESSION: ? Episodic vertigo starting winter 2020, severe the first 2 episodes, relatively moderate after that with decreasing frequency so that the last one was over a month ago. ? Right hand predominant essential tremor. Besides propranolol: OTHER medications reviewed: Wellbutrin 450 mg every morning, lamotrigine 750 mg nightly, clonazepam 0.5 mg nightly, duloxetine 120 mg every morning, , gabapentin 300/600, omeprazole 40 mg every morning Celicoxib 200 mg twice a day, metformin 500 mg twice a day, iron, atorvastatin 40 mg every morning, meclizine 25 mg as needed, lisinopril 40 mg daily, amlodipine 12.5 mg daily, vitamin C, vitamin D3, magnesium 500 mg, vitamin B12 1000 ? ? ?g. TREMOR Propranolol has varying benefit: Extended release 80 mg helps greatly and immediate release 40 mg every 12 hours helps not at all. Previously, 40 mg in the morning it had not helped but then later she amended that and said it helped in the morning but then wore off. Perhaps, fluctuating anxiety affects the tremor and colors her interpretation of how much propranolol is helping. We discussed that anxiety may affect tremor and she said or really?! She had not known. There remains relative contraindication of propranolol in the context of diabetes as it may mask hypoglycemia. However, she is checking her blood sugar and there have been no problems. We discussed this and decided to go up to 60 mg immediate release every 12 hours. She will look for benefit, side effect on either her blood sugar or with dizziness; or wearing off between doses. At May 29, 2021 surya s we discussed for the first time episodic morning dizziness for which she needed meclizine. She will continue to monitor for increased episodes of this on propranolol. HEADACHE May 29, 2021: We discussed that propranolol is also a first-line treatment for migraines, large or small. This should make the likelihood of another bad migraine even less. It may help her smaller headaches. We will monitor. The bad headache that was the first 1 in a long time is of uncertain etiology. I will monitor for any more bad headaches. Sumatriptan has caused stomach upset. Should there be bad headaches that require migraine breakthrough medication, we will reevaluate in that direction. PREVIOUS DISCUSSIONS: April 2021: She is most concerned about her tremor. Her brother recently with Parkinson? s disease. There is a tremor with gait but it is the same frequency as her action tremor and it extinguishes with stressed gait. It also persists with wrist extension. Both of these characteristics suggest that the tremor with gait? a nd the tremor of her right leg while she is sitting or overflow of her action tremor. There is also mild nonspecific symmetric increased tone at the knees. This could be guarding from arthritis as she mentioned discomfort from arthritis in the lower extremities spontaneously during the exam. Parkinsonism from aripiprazole is also a possibility. I will keep her off propranolol given its relative contraindication in the context of diabetes. When mood is more stable, another medication for essential tremor can be considered. Primidone has multiple interactions but no significant psychiatric affect. Topiramate and zonisamide could have psychiatric effect. Alternatively a small dose of carbidopa/levodopa could be tried. As I cannot exclude tardive dyskinesia, although I think it is very low probability, a medication for this could be considered. PLAN Ashley Hurtado July 04, 2021 To help tremor, and possibly to reduce your number of headaches, every week or 2 in May 2021: Propranolol immediate release 60 mg tablets, 1 tablet 7:30 AM, 1 tablet 7:30 PM Propranolol may occasionally cause dizziness or sluggishness. If you have any of these symptoms and they are very mild, wait a few days to see if your body gets used to the medication. If the symptoms are not mild or if your body does not get used to the medication after a week, stop the medication. Follow-up in 1 month priyank Not available 07/04/2021 11:42:24 08/06/2021 08/06/2021 IMPRESSION: ? Episodic vertigo starting winter 2020, severe the first 2 episodes, relatively moderate after that with decreasing frequency so that the last one was over a month ago. ? Right hand predominant essential tremor. Besides propranolol: OTHER medications reviewed: Wellbutrin 450 mg every morning, lamotrigine 750 mg nightly, clonazepam 0.5 mg nightly, duloxetine 120 mg every morning, , gabapentin 300/600, omeprazole 40 mg every morning Celicoxib 200 mg twice a day, metformin 500 mg twice a day, iron, atorvastatin 40 mg every morning, meclizine 25 mg as needed, lisinopril 40 mg daily, amlodipine 12.5 mg daily, vitamin C, vitamin D3, magnesium 500 mg, vitamin B12 1000 ? ? ?g. TREMOR Her explanation of propranolol ER 80 mg helping greatly and now 60 mg immediate release twice a day not helping at all increases the likelihood that anxiety to which she has reduced insight worsens her tremor. She has coffee with her meals and this might be a factor also during the mealtime symptomatology with her utensils. She feels her dizziness relates to Provigil and Provigil was started at some point after the propranolol was increased. We discussed a propranolol 60 mg dose 2 hours before each meal and careful watching for dizziness/lighthea dedness. She would like to try this. If this does not work we will consider primidone after looking at its interactions with other medications that she is on. There remains relative contraindication of propranolol in the context of diabetes as it may mask hypoglycemia. However, she is checking her blood sugar and there have been no problems. At May 29, 2021 surya s we discussed for the first time episodic morning dizziness for which she needed meclizine. She will continue to monitor for increased episodes of this on propranolol. HEADACHE May 29, 2021: We discussed that propranolol is also a first-line treatment for migraines, large or small. This should make the likelihood of another bad migraine even less. It may help her smaller headaches. We will monitor. The bad headache that was the first 1 in a long time is of uncertain etiology. I will monitor for any more bad headaches. Sumatriptan has caused stomach upset. Should there be bad headaches that require migraine breakthrough medication, we will reevaluate in that direction. PREVIOUS DISCUSSIONS: April 2021: She is most concerned about her tremor. Her brother recently with Parkinson? s disease. There is a tremor with gait but it is the same frequency as her action tremor and it extinguishes with stressed gait. It also persists with wrist extension. Both of these characteristics suggest that the tremor with gait? a nd the tremor of her right leg while she is sitting or overflow of her action tremor. There is also mild nonspecific symmetric increased tone at the knees. This could be guarding from arthritis as she mentioned discomfort from arthritis in the lower extremities spontaneously during the exam. Parkinsonism from aripiprazole is also a possibility. I will keep her off propranolol given its relative contraindication in the context of diabetes. When mood is more stable, another medication for essential tremor can be considered. Primidone has multiple interactions but no significant psychiatric affect. Topiramate and zonisamide could have psychiatric effect. Alternatively a small dose of carbidopa/levodopa could be tried. As I cannot exclude tardive dyskinesia, although I think it is very low probability, a medication for this could be considered. PANFILO Ashley Hurtado August 06, 2021 Increase propranolol from 60 mg twice a day up to 60 mg 3 times a day. Take the propranolol 2 hours before mealtime as follows: Propranolol 60 mg tablets: 7 AM 1 tablet, breakfast at 9 AM 10 AM 1 tablet, lunch at noon 4 PM 1 tablet, dinner at 6 PM Please remember that any coffee you have would very likely make the tremor worse. If you have any dizziness or feeling that your body is moving very slow, please reduce the propranolol back to 60 mg just twice a day. If you do this, try to make sure that at least the second dose is 2 hours before dinner so we can discuss whether your tremor is well handled at dinner. Follow-up in 1 month priyank Not available 08/06/2021 13:00:54 09/12/2021 09/12/2021 IMPRESSION: ? Episodic vertigo starting winter 2020, severe the first 2 episodes, relatively moderate after that with decreasing frequency so that the last one was over a month ago. ? Right hand predominant essential tremor. --Stopping propranolol on her own fearing association with her ongoing hair loss. Besides stopping propranolol, she has not changed any other medications: OTHER medications reviewed: Wellbutrin 450 mg every morning, lamotrigine 750 mg nightly, clonazepam 0.5 mg nightly, duloxetine 120 mg every morning, , gabapentin 300/600, omeprazole 40 mg every morning Celicoxib 200 mg twice a day, metformin 500 mg twice a day, iron, atorvastatin 40 mg every morning, meclizine 25 mg as needed, lisinopril 40 mg daily, amlodipine 12.5 mg daily, vitamin C, vitamin D3, magnesium 500 mg, vitamin B12 1000 ? ? ?g. TREMOR I find no evidence on [employer] professional site for association of propranolol with hair loss. However it does not help at 60 mg twice a day. It helped at extended release 80 mg dose but was associated with metallic taste. There is risk of dizziness from propranolol even though she did not think her little bit of dizziness related to propranolol, but rather to Provigil, which is not on her medication list so I believe she then stopped. She is on both furosemide and lisinopril 40 mg. She has diabetes and propranolol can mask hypoglycemia. I have no argument with moving on from propranolol. Her explanation of propranolol ER 80 mg helping greatly and then, August 06, 2021, 60 mg immediate release twice a day not helping at all increases the likelihood that anxiety to which she has reduced insight worsens her tremor. She has coffee with her meals and this might be a factor also during the mealtime symptomatology with her utensils. We decided to wait for 6 weeks, to see how the hair loss goes including a discussion with her hairdresser and another 4 weeks. We will then consider a different medication. Primidone has interactions with many medications and in this way is problematic. Primidone, Topamax and zonisamide may all cause mental slowing. Topamax and zonisamide could have psychiatric affect. Primidone should not have a psychiatric affect. Alternatively a small dose of carbidopa/levodopa could be tried. As I cannot exclude tardive dyskinesia, although I think it is very low probability, a medication for this could be considered. Benzodiazepine has its dependency issues. We will work through this and see if there is an acceptable direction. HEADACHE May 29, 2021: We discussed that propranolol is also a first-line treatment for migraines, large or small. This should make the likelihood of another bad migraine even less. It may help her smaller headaches. We will monitor. The bad headache that was the first 1 in a long time is of uncertain etiology. I will monitor for any more bad headaches. Sumatriptan has caused stomach upset. Should there be bad headaches that require migraine breakthrough medication, we will reevaluate in that direction. We have not focused on her headaches during propranolol treatment but propranolol is now discontinued. To the extent that she is interested in help for her headaches, topiramate might be the best of the next medic. PREVIOUS DISCUSSIONS: April 2021: She is most concerned about her tremor. Her brother recently with Parkinson? s disease. There is a tremor with gait but it is the same frequency as her action tremor and it extinguishes with stressed gait. It also persists with wrist extension. Both of these characteristics suggest that the tremor with gait? a nd the tremor of her right leg while she is sitting or overflow of her action tremor. There is also mild nonspecific symmetric increased tone at the knees. This could be guarding from arthritis as she mentioned discomfort from arthritis in the lower extremities spontaneously during the exam. Parkinsonism from aripiprazole is also a possibility. PLAN Ashley Hurtado September 12, 2021 Stay off of propranolol. Monitor any improvement in hair loss. Monitor any improvement in the occasional dizziness that you are having on both propranolol and Provigil Please remember that any coffee you have would very likely make the tremor worse. Follow-up in 6 weeks priyank Not available 09/12/2021 09:27:07 10/16/2021 10/16/2021 IMPRESSION: ? Episodic vertigo starting winter 2020, severe the first 2 episodes, relatively moderate after that with decreasing frequency so that the last one was over a month ago. ? Right hand predominant essential tremor. --Stopping propranolol 60 mg twice a day, which had not been helping her right hand tremor, on her own September 11, 2021, fearing association with her ongoing hair loss. --Back on propranolol but only 40 mg, now under management of psychiatry, for insides crawling feeling that was happening completely off of propranolol. OTHER medications reviewed: Wellbutrin 450 mg every morning, lamotrigine 750 mg nightly, clonazepam 0.5 mg nightly, duloxetine 120 mg every morning, , gabapentin 300/600, omeprazole 40 mg every morning Celicoxib 200 mg twice a day, metformin 500 mg twice a day, iron, atorvastatin 40 mg every morning, meclizine 25 mg as needed, lisinopril 40 mg daily, amlodipine 12.5 mg daily, vitamin C, vitamin D3, magnesium 500 mg, vitamin B12 1000 ? ? ?g. TREMOR Propranolol 60 mg twice a day might indeed have been related to her episodic dizziness, in combination with her other 2 blood pressure medications. I will defer to psychiatry for further prescription of propranolol at the current lower dose of 40 mg daily as psychiatry represcribed it (successfully) to help a crawling inside feeling. We agree that I will defer any further discussion of hair loss would to primary care. She mentions that primary care suggested that it related to anxiety. Her right hand tremor continues to bother her. We discussed the complexities of other directions for treatment: We decided to wait for 6 weeks, to see how the hair loss goes including a discussion with her hairdresser and another 4 weeks. We will then consider a different medication. Primidone has interactions with many medications and in this way is problematic. Primidone, Topamax and zonisamide may all cause mental slowing. Topamax and zonisamide could have psychiatric affect. Primidone should not have a psychiatric affect. Alternatively a small dose of carbidopa/levodopa could be tried. As I cannot exclude tardive dyskinesia, although I think it is very low probability, a medication for this could be considered. Benzodiazepine has its dependency issues. She is concerned about cognitive slowing. She occasionally has word finding difficulty or substitutes 1 word for another. I tell her that cognitive slowing that any of these medications might cause is likely to go complete away with cessation of the medication. In that case the tremor bothers her enough so that she would like to try a medication. I suggested that she run by Topamax and zonisamide with psychiatry. If they are okay with either medication I will start with Topamax as it might help with headaches as well. To review: HEADACHE We have not focused on her headaches during propranolol treatment but propranolol is now discontinued. To the extent that she is interested in help for her headaches, topiramate might be the best of the next medic. May 29, 2021: We discussed that propranolol is also a first-line treatment for migraines, large or small. This should make the likelihood of another bad migraine even less. It may help her smaller headaches. We will monitor. The bad headache that was the first 1 in a long time is of uncertain etiology. I will monitor for any more bad headaches. Sumatriptan has caused stomach upset. Should there be bad headaches that require migraine breakthrough medication, we will reevaluate in that direction. PREVIOUS DISCUSSIONS: April 2021: She is most concerned about her tremor. Her brother recently with Parkinson? s disease. There is a tremor with gait but it is the same frequency as her action tremor and it extinguishes with stressed gait. It also persists with wrist extension. Both of these characteristics suggest that the tremor with gait? a nd the tremor of her right leg while she is sitting or overflow of her action tremor. There is also mild nonspecific symmetric increased tone at the knees. This could be guarding from arthritis as she mentioned discomfort from arthritis in the lower extremities spontaneously during the exam. Parkinsonism from aripiprazole is also a possibility. PLAN Ashley Hurtado October 16, 2021 Stay off of propranolol. Find out if your psychiatrist, Juan David Amanda, is okay with either topiramate or zonisamide. Follow-up in 6 weeks. At that time, if psychiatry is happy with either medicine I will suggest topiramate as it might also help your headache symptoms. priyank Not available 10/16/2021 14:45:24 12/19/2021 12/19/2021 IMPRESSION: ? Episodic vertigo starting winter 2020, severe the first 2 episodes, relatively moderate after that with decreasing frequency so that the last one was over a month ago. ? Right hand predominant essential tremor, with hand tremor bothering her as well. --Stopping propranolol 60 mg twice a day, which had not been helping her right hand tremor, on her own September 11, 2021, fearing association with her ongoing hair loss. --Back on (September 2021) and then off again (November 2021) of propranolol but only 40 mg every morning, under management of psychiatry, for insides crawling feeling that was happening completely off of propranolol, but now is gone, again off of propranolol. OTHER medications reviewed: Wellbutrin 450 mg every morning, lamotrigine 750 mg nightly, clonazepam 0.5 mg nightly, duloxetine 120 mg every morning, , gabapentin 300/600, omeprazole 40 mg every morning Celicoxib 200 mg twice a day, metformin 500 mg twice a day, iron, atorvastatin 40 mg every morning, meclizine 25 mg as needed, lisinopril 40 mg daily, amlodipine 12.5 mg daily, vitamin C, vitamin D3, magnesium 500 mg, vitamin B12 1000 ? ? ?g. TREMOR Propranolol has had fluctuating benefit for tremor and no benefit most recently. Bretylol 60 mg twice a day might indeed have been related to her episodic dizziness, in combination with her other 2 blood pressure medications. Her right hand tremor continues to bother her. We discussed the complexities of other directions for treatment: Primidone has interactions with many medications and in this way is problematic. Primidone, Topamax and zonisamide may all cause mental slowing. Topamax and zonisamide could have psychiatric affect. Primidone should not have a psychiatric affect. Alternatively a small dose of carbidopa/levodopa could be tried but I think the likelihood of a parkinsonian tremor is quite low? t he breakthrough tremor with gait is most likely overflow of her essential tremor. As I cannot exclude tardive dyskinesia, although I think it is very low probability, a medication for this could be considered. Benzodiazepine has its dependency issues. She is again concerned about cognitive slowing. She occasionally has word finding difficulty or substitutes 1 word for another. I again tell her that cognitive slowing that any of these medications might cause is likely to go complete away with cessation of the medication. She again decides that the tremor bothers her enough so that she would like to try a medication. We discussed Topamax and zonisamide again. She has run them by psychiatry and she reports that psychiatry has not heard of them. I interpreted this to mean that psychiatry does not have a concerned that they would cause significant harm from the psychiatric perspective. I offer Topamax as it gives additional benefit for headache compared to zonisamide, even though headaches are only about once a month as she is on BiPAP in recent times. We go over side effects. She has never had kidney stones. We decide on a cautious introductory dose, with titration up to 25 g twice daily She brings up hair loss again today. We again discussed that I will defer any further discussion of hair loss would to primary care as it is now clear that propranolol does not seem the issue as she is continuing to lose hair off of propranolol. She has mentioned that primary care suggested that it related to anxiety. She now has an appointment with dermatology in June. To review: HEADACHE Other migraine is just monthly now that she is on BiPAP, she has a predisposition to migraine so I will continue to monitor. May 29, 2021: We discussed that propranolol is also a first-line treatment for migraines, large or small. This should make the likelihood of another bad migraine even less. It may help her smaller headaches. We will monitor. The bad headache that was the first 1 in a long time is of uncertain etiology. I will monitor for any more bad headaches. Sumatriptan has caused stomach upset. Should there be bad headaches that require migraine breakthrough medication, we will reevaluate in that direction. PREVIOUS DISCUSSIONS: April 2021: She is most concerned about her tremor. Her brother recently with Parkinson? s disease. There is a tremor with gait but it is the same frequency as her action tremor and it extinguishes with stressed gait. It also persists with wrist extension. Both of these characteristics suggest that the tremor with gait? a nd the tremor of her right leg while she is sitting or overflow of her action tremor. There is also mild nonspecific symmetric increased tone at the knees. This could be guarding from arthritis as she mentioned discomfort from arthritis in the lower extremities spontaneously during the exam. Parkinsonism from aripiprazole is also a possibility. PLAN Ashley Hurtado December 19, 2021 For tremor: Topamax: (topiramate, generic name) Topamax 25 mg tablet, one half tablet nightly one week Topamax 25-mg tablet, one half tablet twice daily one week Topamax 25-mg tablet one half tablet morning., one tablet nightly, one week Topamax 25 mg tablet, one tablet twice daily afterwards Topamax very rarely causes rash or acute eye pain. If this happens, stop the medicine and call me. Topamax also may occasionally causes side effects of tingling of fingers, toes or tongue, or fatigue. Occasionally, at higher doses, it can also cause word finding problems or mental slowing. Occasionally Topamax may affect mood-for the good or for the bad. If the side effects are mild, wait a few days and see if they go away. It side effects do not go away, or are not mild, reduced dose to the previous dose where there were no side effects. If the only side effect you have is tiredness, and this starts when you start the morning dose, switch the whole dosage to the evening only. If you stay on this medication long-term, please be aware that there is a small predisposition to reduce the amount that you perspire. Therefore, in the hot sun, if you do not pay attention, you could get overheated. Also, if you stay on this medication long-term, there is a predisposition to reduce appetite and cause weight loss. Weight loss is rarely more than 10% and rarely causes problems. Unusually, there can also be nausea involved with this reduced appetite. Follow-up in 1 month. [email or web address] Not available 12/19/2021 10:41:53 Plan of Treatment Reminders Order Date Submit Date Provider Last Modified By Organization Details Last Modified Time Details Appointments None recorded. Lab None recorded. Referral None recorded. Procedures None recorded. Surgeries None recorded. Imaging None recorded. Medication Orders Topamax 25 mg tablet 2021 022 [facility]/Pharmacy #[id number] [place], [address], 2 10:43:08 propranolol 60 mg tablet 2020 021 [facility]/Pharmacy #[id number], [address] [place], [address], 09:28:07 propranolol 60 mg tablet 2020 021 priyank [facility]/Pharmacy #[id number], [address] [place], [address], 1 09:28:02 Patient TargetsNo targets recorded. Patient Instructions Encounter Date Encounter Id Patient Instructions Last Modified By Organization Details Last Modified Time 07/04/2021 [id number] PREVIOUS MEDICAT ION Propranolol 40 mg daily: No help for tremor, no tremor worsening with April 10, 2021 discontinuation, concerning for long-term usage context diabetes PREVIOUS DISCUSSIONS April 10, 2021 initial consultation: VERTIGO Her history strongly suggests benign paroxysmal positional vertigo (BPPV). He has had no episodes for over a month. Brain MRI has been unrevealing. She has had ENT consultation. I have no further suggestions. IMAGING The patient wished interpretation of Brain MRI results that she found from her patient portal, spring 2020: Microangiopathic white matter changes. I explained that these are findings that are not treated in themselves. They are of increased likelihood with hypertension, hypercholesterolemia and diabetes all of which diagnosis she carries. The only indication is for continued optimal management of these conditions. She understands. A third common condition that has correlation with these findings is sleep apnea. We did not discuss whether she snores. She has the risk factor of obesity. I defer to primary care at this point for further assessment in this direction. [email or web address] Not available 07/04/2021 11:22:54 08/06/2021 [id number] PREVIOUS MEDICAT ION Propranolol 40 mg daily: No help for tremor, no tremor worsening with April 10, 2021 discontinuation, concerning for long-term usage context diabetes PREVIOUS DISCUSSIONS April 10, 2021 initial consultation: VERTIGO Her history strongly suggests benign paroxysmal positional vertigo (BPPV). He has had no episodes for over a month. Brain MRI has been unrevealing. She has had ENT consultation. I have no further suggestions. IMAGING The patient wished interpretation of Brain MRI results that she found from her patient portal, spring 2020: Microangiopathic white matter changes. I explained that these are findings that are not treated in themselves. They are of increased likelihood with hypertension, hypercholesterolemia and diabetes all of which diagnosis she carries. The only indication is for continued optimal management of these conditions. She understands. A third common condition that has correlation with these findings is sleep apnea. We did not discuss whether she snores. She has the risk factor of obesity. I defer to primary care at this point for further assessment in this direction. [email or web address] Not available 08/06/2021 12:39:56 09/12/2021 [id number] PREVIOUS MEDICAT ION Propranolol 40 mg daily: No help for tremor, no tremor worsening with April 10, 2021 discontinuation, concerning for long-term usage context diabetes PREVIOUS DISCUSSIONS April 10, 2021 initial consultation: VERTIGO Her history strongly suggests benign paroxysmal positional vertigo (BPPV). He has had no episodes for over a month. Brain MRI has been unrevealing. She has had ENT consultation. I have no further suggestions. IMAGING The patient wished interpretation of Brain MRI results that she found from her patient portal, spring 2020: Microangiopathic white matter changes. I explained that these are findings that are not treated in themselves. They are of increased likelihood with hypertension, hypercholesterolemia and diabetes all of which diagnosis she carries. The only indication is for continued optimal management of these conditions. She understands. A third common condition that has correlation with these findings is sleep apnea. We did not discuss whether she snores. She has the risk factor of obesity. I defer to primary care at this point for further assessment in this direction. [email or web address] Not available 09/12/2021 09:07:42 10/16/2021 [id number] PREVIOUS MEDICAT ION October 16, 2021 Propranolol 40 mg daily: In retrospect, caused dizziness t1-3x/week; also No help for tremor, no tremor worsening with April 10, 2021 discontinuation, concerning for long-term usage context diabetes PREVIOUS DISCUSSIONS April 10, 2021 initial consultation: VERTIGO Her history strongly suggests benign paroxysmal positional vertigo (BPPV). He has had no episodes for over a month. Brain MRI has been unrevealing. She has had ENT consultation. I have no further suggestions. IMAGING The patient wished interpretation of Brain MRI results that she found from her patient portal, spring 2020: Microangiopathic white matter changes. I explained that these are findings that are not treated in themselves. They are of increased likelihood with hypertension, hypercholesterolemia and diabetes all of which diagnosis she carries. The only indication is for continued optimal management of these conditions. She understands. A third common condition that has correlation with these findings is sleep apnea. We did not discuss whether she snores. She has the risk factor of obesity. I defer to primary care at this point for further assessment in this direction. [email or web address] Not available 10/16/2021 14:34:27 12/19/2021 [id number] PREVIOUS MEDICAT ION October 16, 2021 Propranolol 40 mg daily: In retrospect, caused dizziness t1-3x/week; also No help for tremor, no tremor worsening with April 10, 2021 discontinuation, concerning for long-term usage context diabetes PREVIOUS DISCUSSIONS April 10, 2021 initial consultation: VERTIGO Her history strongly suggests benign paroxysmal positional vertigo (BPPV). He has had no episodes for over a month. Brain MRI has been unrevealing. She has had ENT consultation. I have no further suggestions. IMAGING The patient wished interpretation of Brain MRI results that she found from her patient portal, spring 2020: Microangiopathic white matter changes. I explained that these are findings that are not treated in themselves. They are of increased likelihood with hypertension, hypercholesterolemia and diabetes all of which diagnosis she carries. The only indication is for continued optimal management of these conditions. She understands. A third common condition that has correlation with these findings is sleep apnea. We did not discuss whether she snores. She has the risk factor of obesity. I defer to primary care at this point for further assessment in this direction. [email or web address] Not available 12/19/2021 10:00:55 Reason for Referral None Reported. Problems Name Problem SNOMED Code Status Onset Date Resolution Date Notes Provider Name and Address Organization Details Recorded Time Migraine 25290711 Active 021 g43.909 Mervat Moriah [facility] 12:10:42 Tremor 65567826 Active 021 R25.1 Mervat Major [facility] 12:11:25 Problem Notes None recorded. Procedures Surgical History Date Name Laterality Status Provider Name and Address Organization Details Recorded Time Carpal tunnel surgery completed Mervat Major [facility] 04/10/2021 13:19:43 Hysterectomy completed Mervat Major [facility] 04/10/2021 13:19:54 Imaging Results None recorded. Procedure Notes None recorded. Medical Equipment None Reported. Allergies No known drug allergies Medications Name Sig Start Date Stop Date Status Note LastModified by Organization Details LastModified Time celecoxib 200 mg capsule TAKE 1 CAPSULE (200 MG TOTAL) BY MOUTH DAILY NEEDED FOR PAIN active Not Available Not Available No t Available atorvasta tin 40 mg tablet TAKE 1 TABLET BY MOUTH EVERY DAY active Not Available Not Available No t Available lamotrigi ne 150 mg tablet TAKE 1 TABLET BY MOUTH EVERYDAY AT BEDTIME active Not Available Not Available No t Available silver sulfadiaz ine 1 % topical cream APPLY TOPICALL Y TO AFFECTED AREA EVERY DAY active Not Available Not Available No t Available metformin 500 mg tablet TAKE 1 TABLET BY MOUTH TWICE A DAY WITH MEALS active Not Available Not Available No t Available Topamax 25 mg tablet 1/2 tablet every evening 1 week, 1 tablet every evening 1 week, 1/2 tablet every morning, 1 tablet every evening 1 week, 1 tablet twice a day afterwar ds 2021 active Not Available Not Available Not Avai silvino FreeStyle Lancets 28 gauge USE TO TEST ONCE A DAY active Not Available Not Available No t Available sumatript an 25 mg tablet TAKE 2 TABLETS BY MOUTH EVERY 2 HOURS NEEDED FOR MIGRAINE . NOT TO EXCEED 200 MG/DAY active Not Available Not Available No t Available clonazepa m 0.5 mg tablet TAKE 1 TABLET BY MOUTH EVERY NIGHT active Not Available Not Available No t Available amlodipin e 2.5 mg tablet TAKE 1 TABLET BY MOUTH EVERY DAY active Not Available Not Available No t Available propranol ol 60 mg tablet 1 tablet 3 times a day, 2 hours before breakfas t, 2 hours before lunch, 2 hours before dinner 09/12 completed Not Available Not Available Not Available acetamino phen 300 mg-codein e 30 mg tablet TAKE 1 TABLET BY MOUTH EVERY 6 HOURS NEEDED FOR PAIN active Not Available Not Available No t Available omeprazol e 40 mg capsule,d elayed release TAKE 1 CAPSULE BY MOUTH EVERY DAY active Not Available Not Available No t Available aspirin 81 mg tablet,de layed release TAKE 1 TABLET BY MOUTH EVERY DAY active Not Available Not Available No t Available tramadol 50 mg tablet TAKE 1-2 TABLETS BY MOUTH EVERY 6 HOURS NEEDED FOR PAIN (DON'T DRIVE WHILE TAKING THIS MEDICATI ON active Not Available Not Available No t Available triamcino lone acetonide 0.1 % topical cream active Not Available Not Available Not Available propranol ol 10 mg tablet TAKE 1 TO 2 TABLETS BY MOUTH TWICE A DAY 07/04 completed Not Available Not Available Not Available modafinil 200 mg tablet TAKE 1 TABLET BY MOUTH EVERY MORNING active Not Available Not Available No t Available meclizine 25 mg tablet TAKE 1 TABLET BY MOUTH THREE TIMES A DAY NEEDED active Not Available Not Available No t Available ferrous sulfate 325 mg (65 mg iron) tablet TAKE 1 TABLET BY MOUTH EVERY DAY active Not Available Not Available No t Available propranol ol ER 80 mg capsule,2 4 hr,extend ed release TAKE 1 CAPSULE BY MOUTH EVERY DAY IN THE MORNING 07/04 completed Metallic taste Not Available Not Available Not Available gabapenti n 300 mg capsule TAKE 1 CAPSULE BY MOUTH EVERY MORNING & NOON AND 2 CAPSULES AT BEDTIME active Not Available Not Available No t Available mupirocin 2 % topical ointment APPLY TO AFFECTED AREA 3 TIMES A DAY active Not Available Not Available No t Available furosemid e 20 mg tablet TAKE 1 TABLET BY MOUTH EVERY DAY active Not Available Not Available No t Available nystatin 100,000 unit/gram topical powder APPLY TOPICALL Y 4 (FOUR) TIMES A DAY. active Not Available Not Available No t Available propranol ol 20 mg tablet TAKE 2 TABLETS BY MOUTH EVERY MORNING AND 1 TABLET NEEDED FOR TREMOR IN THE AFTERNOO N active Not Available Not Available No t Available lisinopri l 40 mg tablet TAKE 1 TABLET BY MOUTH EVERY DAY active Not Available Not Available No t Available clotrimaz ole 1 % topical cream APPLY 1 APPLICAT ION TOPICALL Y 2 TIMES A DAY NEEDED FOR SKIN FOLDS. active Not Available Not Available No t Available aripipraz ole 5 mg tablet TAKE 1 TABLET BY MOUTH AT BEDTIME active Not Available Not Available No t Available bupropion HCl XL 300 mg 24 hr tablet, extended release TAKE 1 TABLET BY MOUTH EVERY DAY active Not Available Not Available No t Available bupropion HCl XL 150 mg 24 hr tablet, extended release TAKE 1 TABLET BY MOUTH EVERY MORNING WITH 300MG TABLET active Not Available Not Available No t Available nitrofura ntoin monohydra te/macroc rystals 100 mg capsule TAKE 1 CAPSULE BY MOUTH TWICE A DAY FOR 5 DAYS active Not Available Not Available No t Available duloxetin e 30 mg capsule,d elayed release TAKE 1 CAPSULE BY MOUTH EVERY DAY active Not Available Not Available No t Available duloxetin e 60 mg capsule,d elayed release TAKE TWO CAPSULES BY MOUTH EVERY MORNING active Not Available Not Available No t Available FreeStyle Lite Strips USE TO TEST ONCE DAILY active Not Available Not Available No t Available Vitals None Recorded Social History Question Answer Notes LastModified by Organizat ion Details LastModified Time Tobacco Smoking Status Former Smoker Mervatariella rosario [facility] 04/10/2021 13:23:14 What Is Your Level Of Alcohol Consumption? None Information not available 04/10/2021 What Is Your Level Of Caffeine Consumption? Occasional Information not available 04/10/2021 Which Of Your Hands Is Dominant? Right Information not available 04/10/2021 Sex: Unknown Functional Status None recorded. Mental Status None recorded. Family History Relationship Description Onset Age of this Age Resolved Age Notes LastModified by Organization Details LastModified Time Paternal Grandmother Diabetes mellitus Not available 04/10 13:17:53 Mother Headache Not availab le 04/10/2021 13:18:03 Mother Heart disease Not available 04/10 13:18:14 Mother Neuropathy Not avail able 04/10/2021 13:18:39 Father Neuropathy Not avail able 04/10/2021 13:18:46 Unspecified Relation Neuropathy 6 siblin gs Not available 04/10/2021 13:19:07 Brother Tremor Not availabl e 04/10/2021 13:19:22 Medical History Condition Response Diabetes Y Heartburn, acid reflux, GERD Y Claustrophobia Y High Blood Pressure or Hypertension Y Headaches Y High Cholesterol or Hyperlipidemia Y Depression Y Gynecological HistoryNo gynecological history recorded. 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 Benign par oxysmal positional vertigo 695634607 H81.13 [id number] Wicho Denise MD [facility] [address] [place] [address] [place] [address] 05/08/2021 10:04:05 05/08/2021 11:33:47 Essential tremor 530728545 G25.0 Medication -induced postural tremor 02082610 G25.1 Benign par oxysmal positional vertigo 944487740 H81.13 [id number] Wicho Denise MD [address] [place] [address] 05/29/2021 12:39:22 05/29/2021 14:53:16 Essential tremor 804499228 G25.0 Medication -induced postural tremor 05483794 G25.1 Benign par oxysmal positional vertigo 232368261 H81.13 [id number] Wicho Denise MD [address] [place] [address] 07/04/2021 11:21:16 07/04/2021 11:48:24 Essential tremor 283909796 G25.0 Medication -induced postural tremor 32468220 G25.1 Benign par oxysmal positional vertigo 372288402 H81.13 [id number] Wicho Denise MD [address] [place] [address] 08/06/2021 12:32:56 08/06/2021 13:04:45 Essential tremor 365929563 G25.0 Medication -induced postural tremor 56142844 G25.1 Benign par oxysmal positional vertigo 497410506 H81.13 [id number] Wicho Denise MD [address] [place] [address] 09/12/2021 09:05:34 09/12/2021 09:38:46 Essential tremor 116432327 G25.0 Medication -induced postural tremor 56091492 G25.1 Benign par oxysmal positional vertigo 501001367 H81.13 [id number] Wicho Denise MD [address] [place] [address] 10/16/2021 14:08:31 10/16/2021 17:03:01 Essential tremor 476544349 G25.0 Medication -induced postural tremor 85813989 G25.1 Benign par oxysmal positional vertigo 690372225 H81.13 [id number] Wicho Denise MD [facility] [address] [place] [address] [place] [address] 12/19/2021 09:56:58 12/19/2021 10:56:58 Essential tremor 141282726 G25.0 Medication -induced postural tremor 27685486 G25.1 Benign par oxysmal positional vertigo 715096450 H81.13 Health Concerns Section Related Observation LastModified by Organization Detai ls LastModified Time None Recorded Concern Status LastModified by Organization Details LastModified Time None Recorded Advance Directives Directive None Recorded Payers Encounter Date Sequence Insurance Name Policy Number Policy Tena Covered Member ID Tena Member ID Guarantor Name 07/04/2021 2 [employer] - SENIOR SERVICES PLAN F (MEDICARE SUPPLEMENT) [id number] Ashley B Goddu [id number] Ashley Goddu 07/04/2021 1 MEDICARE [place]: NATIONAL GOVERNMENT SERVICES Ashley E Goddu [id number] Ashley Goddu 08/06/2021 2 [employer] - SENIOR SERVICES PLAN F (MEDICARE SUPPLEMENT) [id number] Ashley B Goddu [id number] Ashley Goddu 08/06/2021 1 MEDICARE B-[place]: NATIONAL GOVERNMENT SERVICES Ashley E Goddu [id number] Ashley Goddu 09/12/2021 2 [employer] - SENIOR SERVICES PLAN F (MEDICARE SUPPLEMENT) [id number] Ashley B Goddu [id number] Ashley Goddu 09/12/2021 1 MEDICARE [place]: NATIONAL GOVERNMENT SERVICES Ashley E Goddu [id number] Ashley Goddu 10/16/2021 2 [employer] - SENIOR SERVICES PLAN F (MEDICARE SUPPLEMENT) [id number] Ashley B Goddu [id number] Ashley Goddu 10/16/2021 1 MEDICARE B-[place]: NATIONAL GOVERNMENT SERVICES Ashley E Goddu [id number] Ashley Goddu 12/19/2021 2 [employer] - SENIOR SERVICES PLAN F (MEDICARE SUPPLEMENT) [id number] Ashley B Goddu [id number] Ashley Hurtado 12/19/2021 1 [place]: [facility] Ashley Hurtado [id number] Ashley Hurtado Notes Date Note Type Note Provider Name and Address Organization Details Recorded Time 07/04/2021 text/html Follow up of episodic dizziness; and right hand predominant tremor. 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 Past history includes hypertension, diabetes, hypercholesterolem ia, headaches, GERD, borderline personality disorder, anxiety and claustrophobia. She is unaccompanied. After May 29, 2021 neurology follow-up encounter, she started propranolol ER 80 mg daily. It took care of greatly her tremor. However it caused an unacceptable metallic taste. She contacted her office and she has switched back to immediate release, 40 mg every 12 hours 7:30 AM/7:30 PM. There are no side effects, metallic taste or otherwise. But it does not help her hand tremor at all. She has been checking her blood sugar and there have been no abnormalities. She has had no worrisome increase in her occasional lightheadedness. There have been no medication changes by either primary care, psychiatry or any other healthcare provider. Sometime during winter in the beginning of 2020 she woke up on the morning and as soon as she started to move she had intense dizziness. She tried standing and it was ? a wful, knocking into things.? She went back to bed and the dizziness resolved in about 5 minutes. 2 days later, the same thing happened at waking, lasting the same duration. 2 days later she went to primary care. There was no specific diagnosis or treatment. After that, she began getting more mild episodes of spinning dizziness. She can walk during such episodes but she still feels uncomfortable. She had another follow-up in the office of her PCP but with a different doctor. They prescribed meclizine. At first she says that this has helped. When an episode has since occurred of the relatively mild dizziness, she has taken meclizine and gone to bed. She wakes 45-60 minutes later and she is better. I ask what happened before she had the meclizine and she that an episode lasted until she went to sleep and was gone when she woke. Therefore she cannot say that there was any difference with the meclizine. Episodes initially were happening 2 or 3 times per week but they slowly became less frequent. The last one occurred over a month ago. There were never any more episodes of the severe dizziness. She never previously had episodes of dizziness. Besides the meclizine, there had not been any recent medication changes. The last medication change was over 3 years ago. In addition, she has hand tremor that bothers her. It started in her right hand ? a bout 3 years ago,? ~2018. There has been slow worsening. Left hand tremor started about 2 months ago. The tremor makes it so that she occasionally drops food from her utensils and occasionally spills her coffee when she carries it with one hand. At a recent lunch/reunion with a friend/former teaching colleague whom she hadn? t seen for a year, the tremor was especially bad and she could hardly eat with utensils. Wicho Denise MD [address] [place] [address], [phone], [facility] 07/04/2021 11:43:18 08/06/2021 text/html Follow up of episodic dizziness; and right hand predominant tremor. 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 Past history includes hypertension, diabetes, hypercholesterolem ia, headaches, GERD, borderline personality disorder, anxiety and claustrophobia. She is unaccompanied. Since July 04, 2021 neurology follow-up encounter, she has increased propranolol 40 mg immediate release every 12 hours 7:30 AM/7:30 PM up to 60 mg immediate release every 12 hours 7:30 AM/7:30 PM. She still feels no benefit at all for her tremor. This remains in contrast to the significant benefit of propranolol ER 80 mg daily it took care of it greatly. On the other hand, she remains without the metallic taste that she had on the propranolol ER 80 mg. The tremor bothers her mostly at 8 AM breakfast, 12 noon lunch, 5:55 PM dinner and whenever she tries to write. She is frequently up to go to the bathroom at night and has started Provigil to help with wakefulness during the day with psychiatry, Dr. Juan David Amanda. She does not think the Provigil helps. She has a little dizziness lately and thinks it relates to the Provigil. She has not had any other medication changes. We did not again discuss whether she continues to check her blood sugar. Sometime during winter in the beginning of 2020 she woke up on the morning and as soon as she started to move she had intense dizziness. She tried standing and it was ? a wful, knocking into things.? She went back to bed and the dizziness resolved in about 5 minutes. 2 days later, the same thing happened at waking, lasting the same duration. 2 days later she went to primary care. There was no specific diagnosis or treatment. After that, she began getting more mild episodes of spinning dizziness. She can walk during such episodes but she still feels uncomfortable. She had another follow-up in the office of her PCP but with a different doctor. They prescribed meclizine. At first she says that this has helped. When an episode has since occurred of the relatively mild dizziness, she has taken meclizine and gone to bed. She wakes 45-60 minutes later and she is better. I ask what happened before she had the meclizine and she that an episode lasted until she went to sleep and was gone when she woke. Therefore she cannot say that there was any difference with the meclizine. Episodes initially were happening 2 or 3 times per week but they slowly became less frequent. The last one occurred over a month ago. There were never any more episodes of the severe dizziness. She never previously had episodes of dizziness. Besides the meclizine, there had not been any recent medication changes. The last medication change was over 3 years ago. In addition, she has hand tremor that bothers her. It started in her right hand ? a bout 3 years ago,? ~2018. There has been slow worsening. Left hand tremor started about 2 months ago. The tremor makes it so that she occasionally drops food from her utensils and occasionally spills her coffee when she carries it with one hand. At a recent lunch/reunion with a friend/former teaching colleague whom she hadn? t seen for a year, the tremor was especially bad and she could hardly eat with utensils. Wicho Denise MD [address] [place] [address] [place], [phone], [facility] 08/06/2021 13:01:30 09/12/2021 text/html Follow up of episodic dizziness; and right hand predominant tremor. 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 Past history includes hypertension, diabetes, hypercholesterolem ia, headaches, GERD, borderline personality disorder, anxiety and claustrophobia. She is unaccompanied. Since August 06, 2021 neurology follow-up encounter, She has stayed on propranolol 60 mg twice a day. After our discussion on possible dizziness, and after thinking about her 2 blood pressure medications that she takes in the evening, she decided against taking a third 60 mg dose, skipping the evening dose. 60 mg in the morning and in the early afternoon (as opposed to 7:30 AM/7:30 PM she was doing previously) still did not provide any benefit. She went to the hairdresser who commented on how much hair she was losing. She sees the hairdresser monthly. Hair loss like this has been going on for a long time. She cannot be more specific. She looked up propranolol on the web and found a site where it associated propranolol with hair loss. She stopped propranolol, last dose yesterday morning. Today, in the morning, she notices no change in her tremor. She does not talk about the metallic taste that she had on 80 mg propranolol ER coming back. She does not focus on the little bit of dizziness lately that she had thought related to Provigil. Sometime during winter in the beginning of 2020 she woke up on the morning and as soon as she started to move she had intense dizziness. She tried standing and it was ? a wful, knocking into things.? She went back to bed and the dizziness resolved in about 5 minutes. 2 days later, the same thing happened at waking, lasting the same duration. 2 days later she went to primary care. There was no specific diagnosis or treatment. After that, she began getting more mild episodes of spinning dizziness. She can walk during such episodes but she still feels uncomfortable. She had another follow-up in the office of her PCP but with a different doctor. They prescribed meclizine. At first she says that this has helped. When an episode has since occurred of the relatively mild dizziness, she has taken meclizine and gone to bed. She wakes 45-60 minutes later and she is better. I ask what happened before she had the meclizine and she that an episode lasted until she went to sleep and was gone when she woke. Therefore she cannot say that there was any difference with the meclizine. Episodes initially were happening 2 or 3 times per week but they slowly became less frequent. The last one occurred over a month ago. There were never any more episodes of the severe dizziness. She never previously had episodes of dizziness. Besides the meclizine, there had not been any recent medication changes. The last medication change was over 3 years ago. In addition, she has hand tremor that bothers her. It started in her right hand ? a bout 3 years ago,? ~2018. There has been slow worsening. Left hand tremor started about 2 months ago. The tremor makes it so that she occasionally drops food from her utensils and occasionally spills her coffee when she carries it with one hand. At a recent lunch/reunion with a friend/former teaching colleague whom she hadn? t seen for a year, the tremor was especially bad and she could hardly eat with utensils. Wicho Denise MD [address] [place] [address], [phone], [facility] 09/12/2021 09:28:19 10/16/2021 text/html Follow up of episodic dizziness; and right hand predominant tremor. 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 Past history includes hypertension, diabetes, hypercholesterolem ia, headaches, GERD, borderline personality disorder, anxiety and claustrophobia. She is unaccompanied. Since September 12, 2021 neurology follow-up encounter, she stayed off propranolol for 2 weeks. She had a feeling of crawling inside which she ran by her psychiatrist, Juan David Amanda. He told her to start propranolol 40 mg every morning. The crawling inside feeling went away. Her right hand predominant tremor was bothering her off propranolol and continued to bother her on the 40 mg every morning as it had previously on that dose. The episodic dizziness that had been happening 1-3 times per week did not occur for the 2 weeks off of propranolol or for the 2 weeks on the 40 mg every morning. The hair loss that she had been noticing and that the hairdresser mentioned so that she stopped the propranolol 60 mg twice a day completely September 11, 2021, the day before her follow-up September 12, has not changed. To review, the propranolol 60 mg twice a day was not helping her tremor. She has had no other medication changes.Sometime during winter in the beginning of 2020 she woke up on the morning and as soon as she started to move she had intense dizziness. She tried standing and it was ? a wful, knocking into things.? She went back to bed and the dizziness resolved in about 5 minutes. 2 days later, the same thing happened at waking, lasting the same duration. 2 days later she went to primary care. There was no specific diagnosis or treatment. After that, she began getting more mild episodes of spinning dizziness. She can walk during such episodes but she still feels uncomfortable. She had another follow-up in the office of her PCP but with a different doctor. They prescribed meclizine. At first she says that this has helped. When an episode has since occurred of the relatively mild dizziness, she has taken meclizine and gone to bed. She wakes 45-60 minutes later and she is better. I ask what happened before she had the meclizine and she that an episode lasted until she went to sleep and was gone when she woke. Therefore she cannot say that there was any difference with the meclizine. Episodes initially were happening 2 or 3 times per week but they slowly became less frequent. The last one occurred over a month ago. There were never any more episodes of the severe dizziness. She never previously had episodes of dizziness. Besides the meclizine, there had not been any recent medication changes. The last medication change was over 3 years ago. In addition, she has hand tremor that bothers her. It started in her right hand ? a bout 3 years ago,? ~2018. There has been slow worsening. Left hand tremor started about 2 months ago. The tremor makes it so that she occasionally drops food from her utensils and occasionally spills her coffee when she carries it with one hand. At a recent lunch/reunion with a friend/former teaching colleague whom she hadn? t seen for a year, the tremor was especially bad and she could hardly eat with utensils. Wicho Denise MD [address] [place] [address] [place], [phone], [facility] 10/16/2021 14:46:17 12/19/2021 text/html Follow up of episodic dizziness; and right hand predominant tremor. 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 Past history includes hypertension, diabetes, hypercholesterolem ia, headaches, GERD, borderline personality disorder, anxiety and claustrophobia. She is unaccompanied.Afte r October 16, 2021 neurology follow-up encounter, in early/mid November, she went off the 40 mg of propranolol every morning that psychiatry had prescribed for her falling inside feeling. That crawling inside feeling that had gone away with propranolol 40 mg did not come back with this most recent propranolol discontinuation. Tremor again did not change with that discontinuation. There has been no return of episodic dizziness that had been happening 1-3 times per week on 60 mg twice a day dose of propranolol in early 2020. Her right hand tremor still bothers her significantly. Her left hand is now shaking and off to bother her. She has had no other medication changes since then.She is only getting headaches about once a month in recent times. Headaches improved markedly with starting BiPAP. History from October 16, 2021 is reviewed where patient stops propranolol and then under psychiatry management restarts propranolol at a lower dose:Since September 12, 2021 neurology follow-up encounter, she stayed off propranolol for 2 weeks. She had a feeling of crawling inside which she ran by her psychiatrist, Juan David Amanda. He told her to start propranolol 40 mg every morning. The crawling inside feeling went away. Her right hand predominant tremor was bothering her off propranolol and continued to bother her on the 40 mg every morning as it had previously on that dose. The episodic dizziness that had been happening 1-3 times per week did not occur for the 2 weeks off of propranolol or for the 2 weeks on the 40 mg every morning. The hair loss that she had been noticing and that the hairdresser mentioned so that she stopped the propranolol 60 mg twice a day completely September 11, 2021, the day before her follow-up September 12, has not changed. To review, the propranolol 60 mg twice a day was not helping her tremor. She has had no other medication changes.Sometime during winter in the beginning of 2020 she woke up on the morning and as soon as she started to move she had intense dizziness. She tried standing and it was ? a wful, knocking into things.? She went back to bed and the dizziness resolved in about 5 minutes. 2 days later, the same thing happened at waking, lasting the same duration. 2 days later she went to primary care. There was no specific diagnosis or treatment. After that, she began getting more mild episodes of spinning dizziness. She can walk during such episodes but she still feels uncomfortable. She had another follow-up in the office of her PCP but with a different doctor. They prescribed meclizine. At first she says that this has helped. When an episode has since occurred of the relatively mild dizziness, she has taken meclizine and gone to bed. She wakes 45-60 minutes later and she is better. I ask what happened before she had the meclizine and she that an episode lasted until she went to sleep and was gone when she woke. Therefore she cannot say that there was any difference with the meclizine. Episodes initially were happening 2 or 3 times per week but they slowly became less frequent. The last one occurred over a month ago. There were never any more episodes of the severe dizziness. She never previously had episodes of dizziness. Besides the meclizine, there had not been any recent medication changes. The last medication change was over 3 years ago. In addition, she has hand tremor that bothers her. It started in her right hand ? a bout 3 years ago,? ~2018. There has been slow worsening. Left hand tremor started about 2 months ago. The tremor makes it so that she occasionally drops food from her utensils and occasionally spills her coffee when she carries it with one hand. At a recent lunch/reunion with a friend/former teaching colleague whom she hadn? t seen for a year, the tremor was especially bad and she could hardly eat with utensils. Wicho Denise MD [address] [place] [address] [place], [phone], [facility] 12/19/2021 10:43:43 OBGyn Episode No OBEpisode recorded.
--- OUTSIDE RECORDS SUMMARY | 2025-02-21 09:56 | XMS_ITS | Patient Health Record ---
Author Organization [facility] Address [address] [place] [address] Care Team Providers Care Husbandry Person Name Role Phone Brynn Dillon Unavailable [phone] Reason For Referral No Information Medications Medication SIG (Take, Route, Frequency, Duration) Notes Start Date End Date Status CeleBREX 200MG 1 ORAL daily for -3 [facility] 03/18/2013 Active Omeprazole 40MG 1 ORAL daily for -3 [facility] 10/12/2013 Active OXcarbazepine 300MG 1 ORAL daily for -3 [facility] 10/12/2013 Active Lisinopril 10-MG 1 ORAL daily for -3 [facility] 10/12/2013 Active Abilify 5MG 1 ORAL daily for -3 [facility] 03/18/2013 Active Nuvigil 250MG 1 ORAL daily for -3 [facility] 03/18/2013 Active lamoTRIgine 150MG 1 ORAL daily for -3 [facility] 10/12/2013 Active Labetalol HCl 200MG 1 ORAL three times d aily for -3 [facility] 03/18/2013 Active Gabapentin 300MG 2 ORAL at bedtime for -3 [facility] 10/12/20 13 Active hydroCHLOROthiazide 25mg 1 ORAL daily for -3 [facility] 03/18 Active Topiramate 50MG 1 ORAL at bedtime for -3 [facility] 3 Active Cymbalta 60MG 1 ORAL daily for -3 [facility] 10/12/2013 Active Problems Problem Type SNOMED Code ICD Code Onset Dates Problem Status W/U Status Risk Notes Problem Obesity (789213567) Obesity, unspecified (278.00) Active confirmed Major Problem Depressive disorder (40084584) Depressive disorder, not elsewhere classified (311) Active confirmed Major Problem Benign essential hypertension (6422282) Essential hypertension, benign (401.1) Active confirmed Major Problem Esophageal reflux (019391555) Esophageal reflux (530.81) Active confirmed Major Problem Hypersomnia with sleep apnea (43403033) Hypersomnia with sleep apnea, unspecified (780.53) Active confirmed Major Problem Left lower quadrant pain (514572059) Abdominal pain, left lower quadrant (789.04) Active confirmed Diag Problem Gynecological examination normal (266502199024914) Routine gynecological examination (V72.31) Active confirmed Diag Problem Exercises teaching, guidance, and counseling (193640040) Exercise counseling (V65.41) Active confirmed Diag Plan Of Treatment No Information Insurance Providers Payer Name Payer Address Payer Phone Subscriber Number Group Number Insured Name Patient Relationship to Insured Coverage Start Date Coverage End Date [facility]LY [facility] [employer] [address] [place], [place] [id number] BEN GARIBAY Self - patient is the insured
== END 2025-02-21 09:04 | disposition home or self-care (01) ==
LOC: HO.HOSX 09:03
PROVIDERS: Visit Provider Orthopaedic Surgery
DX: M25.571 Pain in right ankle and joints of right foot (principal); S82.851K Displaced trimalleolar fracture of right lower leg, subsequent encounter for closed fracture with nonunion; Z98.890 Other specified postprocedural states; E11.9 Type 2 diabetes mellitus without complications; G62.9 Polyneuropathy, unspecified
CPT/HCPCS: 73610; 99212

== ENCOUNTER 2025-02-21 09:53 | Outpatient (AMB) | payer MEDICARE, OTHER, SELFPAY ==
--- NOTE | 2025-02-21 10:02 | MHC.OFFVIS ---
Intake Visit Reasons: OV- R ankle trimalleolar fx 02/24/2024, redness Intake Note: Ashley is a 74 year old female who presents today with new complaints regarding her right ankle. Patient has extensive history of surgical treatment of this ankle s.p right ankle Trimalleolar fracture 02/24/2024. Patient reports that she noticed that her right ankle bone is sticking out progressively more over time. Right Ankle ORIF 03/10/24 Right Ankle Ex Fix 03/11/24 Metatarsal Pin removal w I&D 03/24/24 Ex Fix Removal w/ I&D 03/30/24. Patient reports that she feels as though her right ankle has displaced and the skin is light red in color. Allergies mirabegron [From Myrbetriq] Allergy (Verified 02/21/25 10:05) Hallucinations HPI HPI OV- R ankle trimalleolar fx 02/24/2024, redness: Details: Ashley is 1 year status post trimalleolar ankle fracture that was treated with attempted surgery but this failed and ultimately she went on to heal without hardware. She does have a displaced fracture but she has severe neuropathy is in his essentially insensate from the knees down bilaterally. This is idiopathic but she does also have diabetes. She states she is continuing to improve albeit slowly. She has difficulty walking long distances because of weakness but she admits that she is very debilitated and has been in his wheelchair much of the time for the last year. She denies any changes to the right ankle [facility] Medical History Elevated cholesterol Anxiety SELMA treated with BiPAP Diabetic ulcer of right foot Atrial fibrillation Borderline personality disorder Major depressive disorder Diabetes mellitus Chronic anticoagulation Surgical History Hx of esophagogastroduodenoscopy Hx of colonoscopy History of carpal tunnel release of both wrists Hx of bilateral cataract extraction Hx of bilateral breast reduction surgery Hx of hysterectomy Social History Household Members: None Housing: [facility] Housing Other:: [place] [facility] Do you presently have visiting nurse or other home services: No Unable to assess alcohol history related to: Refusing to respond Comment: 1:1 Patient Tobacco Use Status: Former Tobacco user service: No Sexual orientation: Straight/Heterosexual Physical Exam Extrem Other: Prominent medial malleolus with intact skin. She has 5 degrees of plantar flexion but 20 degrees of dorsi flexion. Brisk capillary refill. Results Reviewed Results Reviewed: I personally reviewed relevant radiographs. Displaced but healed trimalleolar ankle fracture Assessment & Plan Assessment & Plan (1) Peripheral neuropathy: Comment: concern over foot infection no organisms seen Code(s): G62.9 - Polyneuropathy, unspecified Category: Medical Plan: Severe peripheral neuropathy which complicates care in her case. (2) Trimalleolar fracture of right ankle: Code(s): S82.851A - Displaced trimalleolar fracture of right lower leg, initial encounter for closed fracture Category: Medical Qualifiers: Encounter type: subsequent encounter Fracture type: closed Fracture healing: with nonunion Qualified Code(s): S82.851K - Displaced trimalleolar fracture of right lower leg, subsequent encounter for closed fracture with nonunion Plan: Fracture is stable and unchanged since prior. Her radiographs obviously are suboptimal but there is no evidence of infection and she has been able to ambulate on this foot without difficulty. She should see me if there are any new skin changes but at this time there are none. (3) Diabetes mellitus: Code(s): E11.9 - Type 2 diabetes mellitus without complications Category: Medical Plan: Controlled Orders: Orders XR ankle RT min 3V Today M25.579 - Pain in unspecified ankle and joints of unspecified foot Coding Level of Care Code Est Pt Level 3 (00714) Complex EM visit Add On G2211 Diagnoses Peripheral neuropathy G62.9 Closed trimalleolar fracture of right ankle with nonunion, subsequent encounter S82.851K Encounter type: subsequent encounter Fracture type: closed Fracture healing: with nonunion Diabetes mellitus E11.9
== END 2025-02-21 10:24 | disposition home or self-care (01) ==
LOC: HO.HOS 09:54
PROVIDERS: Visit Provider Orthopaedic Surgery
DX: S82.851D Displaced trimalleolar fracture of right lower leg, subsequent encounter for closed fracture with routine healing (principal); G62.9 Polyneuropathy, unspecified
CPT/HCPCS: 99213; G2211

== ENCOUNTER → 2025-02-21 09:56 | Outpatient (BNV) | payer MEDICARE, OTHER, SELFPAY | PROVIDERS: Visit Provider Radiology Diagnostic Radiology | DX: M25.571 Pain in right ankle and joints of right foot (principal) | CPT/HCPCS: 73610 ==

== ENCOUNTER 2025-09-27 13:30 | Outpatient (RCR) | payer MEDICARE, OTHER, SELFPAY | END 2025-11-04 16:16 | disposition home or self-care (01) | LOC: HO.WCC 13:30 | PROVIDERS: PCP Student in an Organized Health Care Education/Training Program; Visit Provider Surgery Surgical Oncology | DX: E11.621 Type 2 diabetes mellitus with foot ulcer (principal); L97.522 Non-pressure chronic ulcer of other part of left foot with fat layer exposed; L97.511 Non-pressure chronic ulcer of other part of right foot limited to breakdown of skin; E11.622 Type 2 diabetes mellitus with other skin ulcer; L97.821 Non-pressure chronic ulcer of other part of left lower leg limited to breakdown of skin; E11.40 Type 2 diabetes mellitus with diabetic neuropathy, unspecified; L28.1 Prurigo nodularis; L30.4 Erythema intertrigo; F42.4 Excoriation (skin-picking) disorder; I10 Essential (primary) hypertension; Z87.891 Personal history of nicotine dependence | CPT/HCPCS: 11042; 29580; 97597; 99211; 99212; 99213; 99214; 99215 ==